=== PATIENT | female | born 1975 | race Caucasian/White ===

== ENCOUNTER 2022-09-04 00:27 | Emergency (ER) | payer OTHER, SELFPAY ==
[2022-09-04 00:32] VITALS: BP 158/86; PULSE 84; RESP 16; TEMP 36.6; O2SAT 98; BMI 34.4
--- NOTE | 2022-09-04 01:09 | ED_ITS ---
HPI - General Adult General Chief complaint: Abdominal Pain Stated complaint: HEADACHE / ABD PAIN Time Seen by Provider: 09/04/22 00:37 Source: patient Mode of arrival: walk-in Limitations: no limitations History of Present Illness HPI narrative: cc - headache and right flank pain Patient with history of kidney stones presents with right abdominal and right flank pain. She said this started a few days ago but chart review shows two visits in July and another in May for the same thingl History of kidney stones for which she has previously seen urologist. She denied any difficulty urinating or passing stool. She has diarrhea x 2 days. No blood in stool. She also complains of anterior head pain/headache. She said that she had previously been diagnosed with migraines. No photophobia but she has nausea without vomiting. No recent injury to the head or neck. She took a covid test at home and it was negative. On questioning she told me that she had an abnormal mammogram last month and that a recent pelvic US at [facility] showed some kind of mass near by uterus or bladder . She said that her PCP left the area and that she has no replacement PCP so there has been no follow up for these issues. Related Data Home Medications Medication Instructions Recorded Confirmed atorvastatin 20 mg tablet mg 09/04/22 fluoxetine 10 mg capsule mg 09/04/22 omeprazole 40 mg capsule,delayed mg 09/04/22 release propranolol 20 mg tablet mg 09/04/22 Allergies Allergy/AdvReac Type Severity Reaction Status Date / Time acetaminophen Allergy Mild Rash Verified 09/04/22 00:40 [From Tylenol-Codeine] cefdinir Allergy Mild Rash Verified 09/04/22 00:40 codeine Allergy Mild Rash Verified 09/04/22 00:40 [From Tylenol-Codeine] morphine Allergy Mild rash Verified 09/04/22 00:40 Penicillins Allergy Mild Rash Verified 09/04/22 00:40 hydromorphone [From Dilaudid] AdvReac Severe Difficulty Verified 09/04/22 00:40 Breathing PFSH PFSH Social History Smoking status: Never smoker Exam Narrative Exam Narrative: Nurses notes and vital signs reviewed and patient is not hypoxic. afebrile General: Well-appearing and in no apparent distress. Skin: Warm, dry, no pallor noted. No rash to abdomen or flank. Head: Normocephalic, atraumatic. Eye: Pupils are equal, round and EOMI. No scleral icterus. Cardiovascular: Regular Rate and Rhythm without murmur, gallop or rub. Respiratory: No accessory muscle use or respiratory distress. Lungs are clear to auscultation, no wheezing, rales or rhonchi Back: No midline thoracic or lumbar vertebral tenderness. Right CVA tenderness Musculoskeletal: normal ROM, no calf or popliteal tenderness, no lower extremity edema/swelling GI: Abdomen is soft, non-distended. Normal bowel sounds. No masses appreciated. Diffuse right sided tenderness to palpation. No rebound, guarding, or rigidity noted. Neurological: A&O x4. No cranial nerve dysfunction observed. No truncal ataxia. Moves all extremities. Sensation intact. Psychiatric: Cooperative and interactive. Normal mood and affect. Constitutional Vital Signs - 24 hr 09/04/22 00:32 Temperature 97.9 F Pulse Rate [Monitor Right] 84 Respiratory Rate 16 Blood Pressure [Left Arm] 158/86 H Pulse Oximetry 98 Oxygen Delivery Method Room Air Course Vital Signs Vital signs: Vital Signs Temperature 97.9 F 09/04/22 00:32 Pulse Rate 84 09/04/22 00:32 Respiratory Rate 16 09/04/22 00:32 Blood Pressure 158/86 H 09/04/22 00:32 Pulse Oximetry 98 09/04/22 00:32 Oxygen Delivery Method Room Air 09/04/22 00:32 Temperature 97.9 F 09/04/22 00:32 Pulse Rate 84 09/04/22 00:32 Respiratory Rate 16 09/04/22 00:32 Blood Pressure 158/86 H 09/04/22 00:32 Pulse Oximetry 98 09/04/22 00:32 Oxygen Delivery Method Room Air 09/04/22 00:32 Medical Decision Making MDM Narrative Medical decision making narrative: peripheral IV established and blood drawn and sent for testing. X-rays of the abdomen obtained - she had already undergone CT scanning of the abdomen and pelvis in May 2022 as well as two times in the month of July. She received toradol and zofran for her headache - she declined benadryl because she is driving. Today's workup was unremarkable. No ureteral stones. Normal labs including negative UA. She was discharged home with prescription for levsin for her abdominal pain and zyrtecD plus doxycycline for her sinus headache - she is allergic to penicillin. PCP referral given and she was given Dr Francis's info to follow up regarding the abnormal mammogram she said that she had at [facility]. Medical Records Medical records reviewed: Yes I reviewed the patient's medical records Lab Data Lab results reviewed: Yes I reviewed the patient's lab results Labs: Lab Results 09/04/22 09/04/22 09/04/22 Range/Units 01:10 01:15 01:53 WBC 6.8 (4.0-11.0) 10^3/uL RBC 4.43 (4.20-5.40) 10^6/uL Hgb 12.2 (12.0-16.0) g/dL Hct 37.6 (36.0-48.0) % MCV 84.9 (81.0-99.0) fL MCH 27.5 (26.7-34.0) pg MCHC 32.4 (29.9-35.2) g/dL RDW 13.8 (11.0-15.0) % Plt Count 388 (150-450) 10^3/uL MPV 9.8 (9.5-13.5) fL Neut % (Auto) 51.4 (43.0-75.0) % Lymph % (Auto) 35.2 (20.5-60.0) % [place] % (Auto) 9.2 (1.7-12.0) % Eos % (Auto) 3.7 (0.9-7.0) % Baso % (Auto) 0.4 (0.2-2.0) % Neut # (Auto) 3.5 (1.4-6.5) 10^3/uL Lymph # (Auto) 2.4 (1.2-3.8) 10^3/uL [place] # (Auto) 0.6 (0.3-0.8) 10^3/uL Eos # (Auto) 0.3 (0.0-0.7) 10^3/uL Baso # (Auto) 0.0 (0.0-0.1) 10^3/uL Abs Immat Gran (auto) 0.01 (0.00-0.03) 10^3/uL Imm/Tot Granulo (auto) 0.1 (0.0-0.5) % Sodium 141 (136-145) mmol/L Potassium 3.6 (3.5-5.1) mmol/L Chloride 103 (98-107) mmol/L Carbon Dioxide 26.4 (21.0-32.0) mmol/L Anion Gap 15.2 BUN 12.0 (7.0-18.0) mg/dL Creatinine 0.77 (0.55-1.02) mg/dL Est GFR ( Amer) >60 (>=60) Est GFR (Non-Af Amer) >60 (>=60) BUN/Creatinine Ratio 15.6 Glucose 115 H (74-106) mg/dL Calcium 9.1 (8.5-10.1) mg/dL Total Bilirubin 0.1 L (0.2-1.0) mg/dL AST 12 L (15-37) U/L ALT 26 (14-59) U/L Alkaline Phosphatase 85 (46-116) U/L Total Protein 7.5 (6.4-8.2) g/dL Albumin 3.8 (3.4-5.0) g/dL Globulin 3.7 g/dL Albumin/Globulin Ratio 1.0 Lipase 136.0 (73.0-393.0) U/L Urine Color Lt. yellow (YELLOW) Urine Clarity Clear (CLEAR) Urine pH 6.0 (5.0-9.0) Ur Specific [place] <=1.005 A (1.005-1.025) Urine Protein Negative (NEG/TRACE) mg/dL Urine Glucose (UA) Negative (NEGATIVE) mg/dL Urine Ketones Negative (NEGATIVE) mg/dL Urine Occult Blood Small A (NEGATIVE) Urine Nitrite Negative (NEGATIVE) Urine Bilirubin Negative (NEGATIVE) Urine Urobilinogen 0.2 (0.2-1.0) EU/dL Ur Leukocyte Esterase Negative (NEGATIVE) Urine RBC 0-2 (0-2) #/HPF Urine WBC None seen (NONE SEEN) #/HPF Ur Squamous Epith Cells None seen (NONE/RARE) #/LPF Urine Crystals None seen (None Seen) #/HPF Urine Bacteria None seen (NONE SEEN) #/HPF Urine Casts None seen (NONE SEEN) #/LPF Urine Mucus None seen (NONE SEEN) Ur Culture Indicated? No Imaging Data Abdominal x-ray: Attestation: I have reviewed the pertinent imaging results. Radiologist's impression: FINDINGS: The cardiac silhouette is normal in size. The lungs are clear. There is no significant pneumothorax or pleural effusion. No acute osseous abnormality is seen. There is a nonspecific bowel gas pattern without evidence of bowel obstruction. No intraperitoneal free air is seen. Bilateral tubal ligation clips are noted. IMPRESSION: 1. No acute cardiopulmonary abnormality. 2. Nonspecific bowel gas pattern without evidence of bowel obstruction. Electronically authenticated by: Fabby YAN Date: 09/04/2022 02:23 Discharge Plan Discharge Chief Complaint: Abdominal Pain Clinical Impression: Sinusitis, Abdominal pain Time of Disposition Decision: 02:41 Condition: Good Prescriptions / Home Meds: No Action atorvastatin 20 mg tablet omeprazole 40 mg capsule,delayed release(DR/EC) fluoxetine 10 mg capsule propranolol 20 mg tablet Instructions: Sinusitis (ED), Acute Headache (ED), Abdominal Pain (ED) Stand Alone Forms: Portal Instructions Referrals: JONATHAN VILLEDA MD [Physician] - 1 week (needs a new PCP) Yosi Francis MD [Physician] - 1 week (abnormal mammogram at [facility])
[2022-09-04] MEDS: 0.9 % SODIUM CHLORIDE 1,000 ML 999 ML IV (01:24)
[2022-09-04] MEDS: KETOROLAC TROMETHAMINE 30 MG/ML VIAL IVP (01:25)
[2022-09-04] MEDS: ONDANSETRON PF 4 MG/2 ML VIAL IV (01:26)
[2022-09-04 01:49] LABS: Basophils Percent Auto 0.4 % (0.2-2.0); Eosinophils Absolute Auto 0.3 10^3/uL (0.0-0.7); Eosinophils Percent Auto 3.7 % (0.9-7.0); Hematocrit 37.6 % (36.0-48.0); Hemoglobin 12.2 g/dL (12.0-16.0); Immature Granulocytes Abs Auto 0.01 10^3/uL (0.00-0.03); Immature Granulocytes Pct Auto 0.1 % (0.0-0.5); Lymphocytes Absolute Auto 2.4 10^3/uL (1.2-3.8); Lymphocytes Percent Auto 35.2 % (20.5-60.0); Mean Corpuscular HGB Conc 32.4 g/dL (29.9-35.2); Mean Corpuscular Hemoglobin 27.5 pg (26.7-34.0); Mean Corpuscular Volume 84.9 fL (81.0-99.0); Mean Platelet Volume 9.8 fL (9.5-13.5); Monocytes Absolute Auto 0.6 10^3/uL (0.3-0.8); Monocytes Percent Auto 9.2 % (1.7-12.0); Neutrophils Absolute Auto 3.5 10^3/uL (1.4-6.5); Neutrophils Percent Auto 51.4 % (43.0-75.0); Platelet Count 388 10^3/uL (150-450); Red Blood Count 4.43 10^6/uL (4.20-5.40); Red Cell Distribution Width 13.8 % (11.0-15.0); White Blood Count 6.8 10^3/uL (4.0-11.0)
[2022-09-04 01:49] LABS: Bilirubin Urine NEGATIVE (NEGATIVE); Blood Urine SMALL (NEGATIVE); Clarity Urine CLEAR (CLEAR); Color Urine LT. YELLOW (YELLOW); Glucose Urine UA NEGATIVE (NEGATIVE); Ketones Urine NEGATIVE (NEGATIVE); Leukocyte Esterase Urine NEGATIVE (NEGATIVE); Nitrite Urine NEGATIVE (NEGATIVE); Protein Urine NEGATIVE (NEG/TRACE); Specific Gravity Urine <=1.005 (1.005-1.025); Urobilinogen Urine 0.2 EU/dL (0.2-1.0)
[2022-09-04 01:53] LABS: Urine Microscopic Indicated YES
[2022-09-04 01:55] LABS: Bacteria Urine NONE SEEN #/HPF (NONE SEEN); Cast Seen? NONE SEEN #/LPF (NONE SEEN); Crystals Seen? None Seen #/HPF (None Seen); Mucus Urine NONE SEEN (NONE SEEN); RBC Urine 0-2 #/HPF (0-2); Squamous Epithelial Cell Urine NONE SEEN #/LPF (NONE/RARE); Urine Culture Indicated NO; WBC Urine NONE SEEN #/HPF (NONE SEEN)
[2022-09-04 02:04] LABS: Alanine Aminotransferase 26 U/L (14-59); Albumin Level 3.8 g/dL (3.4-5.0); Alkaline Phosphatase 85 U/L (46-116); Anion Gap 15.2; Aspartate Amino Transferase 12 U/L (15-37); BUN Creatinine Ratio 15.6; Bilirubin Total 0.1 mg/dL (0.2-1.0); Calcium 9.1 mg/dL (8.5-10.1); Carbon Dioxide 26.4 mmol/L (21.0-32.0); Chloride 103 mmol/L (98-107); Estimated GFR (African America >60 (>=60); Estimated GFR (Non-African Ame >60 (>=60); Globulin 3.7 g/dL; Glucose 115 mg/dL (74-106); Potassium 3.6 mmol/L (3.5-5.1); Sodium 141 mmol/L (136-145); Total Protein 7.5 g/dL (6.4-8.2)
--- NOTE | 2022-09-04 02:07 | XR_ITS ---
The [address] [address] Patient Name: GIOVANNA STREETER MRN: [id number] date: 1975 Sex: F Assigned Patient Location: ER Current Patient Location: ER Accession/Order Number: [id number] Exam Date: 09/04/2022 01:57 Report Date: 09/04/2022 02:23 At the request of: BYRON JEAN Procedure: XR acute abdomen series EXAM: XR acute abdomen series HISTORY: right sided abdominal pain COMPARISON: None. TECHNIQUE: One view of the chest and 2 views of the abdomen were obtained. FINDINGS: The cardiac silhouette is normal in size. The lungs are clear. There is no significant pneumothorax or pleural effusion. No acute osseous abnormality is seen. There is a nonspecific bowel gas pattern without evidence of bowel obstruction. No intraperitoneal free air is seen. Bilateral tubal ligation clips are noted. IMPRESSION: 1. No acute cardiopulmonary abnormality. 2. Nonspecific bowel gas pattern without evidence of bowel obstruction. Electronically authenticated by: Fabby YAN Date: 09/04/2022 02:23
== END 2022-09-04 02:59 | disposition home or self-care (01) ==
PROVIDERS: Emergency Provider Emergency Medicine
DX: R10.9 Unspecified abdominal pain (principal); J32.9 Chronic sinusitis, unspecified; Z87.442 Personal history of urinary calculi; Z79.899 Other long term (current) drug therapy
CPT/HCPCS: 36415; 74022; 80053; 81003; 81015; 83690; 85025; 96361; 96374; 96375; 99284

== ENCOUNTER 2022-10-06 02:25 | Emergency (ER) | payer OTHER, SELFPAY ==
--- NOTE | 2022-10-06 | CT_ITS ---
The [address] [address] Patient Name: GIOVANNA STREETER MRN: [id number] date: 1975 Sex: F Assigned Patient Location: Current Patient Location: .MAIN Accession/Order Number: [id number] Exam Date: 10/06/2022 03:13 Report Date: 10/06/2022 23:08 At the request of: STEPHANIE NAQVI Procedure: CT abdomen pelvis wo con EXAM: CT abdomen and pelvis, 10/06/2022. HISTORY: Right flank and abdominal pain for 2 days. History of kidney stones and stent placement for stones. COMPARISON: CT abdomen and pelvis, 08/17/2022. TECHNIQUE: Nonenhanced CT imaging of the abdomen and pelvis was performed with sagittal and coronal reconstructions. FINDINGS: CT ABDOMEN: A 4 mm noncalcified lingular nodule on image 1 of series 3 appears to be new since the prior exam and may not have been included on images through the lung bases on the prior study. Additional smaller subpleural nodular lesions in the lateral right middle lobe on images 7 and 9 are unchanged. There is mild dependent atelectasis in the posterior lower lobes. There is linear lingular fibrotic scarring. Cardiac size is normal. There is no pericardial effusion. There are mild aortic calcifications without aneurysm. The IVC is unremarkable. The gallbladder is contracted but otherwise unremarkable. No biliary ductal dilatation is seen. The exam is limited by the lack of IV contrast. Solid organ lesions or acute abnormalities could be missed. With this consideration, the liver, pancreas, spleen, adrenal glands, kidneys, stomach and small bowel are grossly unremarkable. There is a small fat-containing umbilical hernia. CT PELVIS: A normal appendix is seen on image 109. The pelvic small bowel loops, urinary bladder, uterus and ovaries are unremarkable. Bilateral tubal ligation clips are noted. Colonic diverticulosis is present with a normal volume of colonic stool and gas. No inflammatory fat stranding, free fluid, loculated fluid or free air is seen in the abdomen or pelvis. No acute osseous abnormality or suspicious bony lesion is seen. IMPRESSION: 1. No urinary tract calculi or acute findings in the abdomen or pelvis. No specific cause of right flank and right abdominal pain is seen. No significant change from prior exam. 2. Normal appendix. 3. Colonic diverticulosis. 4. Bilateral tubal ligation clips. Electronically authenticated by: JG JESSICA Date: 10/06/2022 23:08
[2022-10-06 15:54] LABS: Anion Gap 12.7; BUN Creatinine Ratio 15.1; Bilirubin Total 0.2 mg/dL (0.2-1.0); Calcium 9.8 mg/dL (8.5-10.1); Carbon Dioxide 24.6 mmol/L (21.0-32.0); Chloride 102 mmol/L (98-107); Estimated GFR (African America >60 (>=60); Estimated GFR (Non-African Ame >60 (>=60); Glucose 148 mg/dL (74-106); Potassium 4.3 mmol/L (3.5-5.1); Sodium 135 mmol/L (136-145)
[2022-10-06 15:55] LABS: Alanine Aminotransferase 20 U/L (14-59); Albumin Globulin Ratio 1.1; Albumin Level 4.1 g/dL (3.4-5.0); Alkaline Phosphatase 76 U/L (46-116); Aspartate Amino Transferase 14 U/L (15-37); Bilirubin Direct 0.1 mg/dL (0.0-0.2); Globulin 3.9 g/dL; White Blood Count 9.4 10^3/uL (4.0-11.0)
[2022-10-06 15:56] LABS: Basophils Percent Auto 0.2 % (0.2-2.0); Eosinophils Percent Auto 0.1 % (0.9-7.0); Hematocrit 38.9 % (36.0-48.0); Hemoglobin 12.6 g/dL (12.0-16.0); Immature Granulocytes Pct Auto 0.4 % (0.0-0.5); Lymphocytes Percent Auto 13.4 % (20.5-60.0); Mean Corpuscular HGB Conc 32.4 g/dL (29.9-35.2); Mean Corpuscular Hemoglobin 28.3 pg (26.7-34.0); Mean Corpuscular Volume 87.2 fL (81.0-99.0); Mean Platelet Volume 9.7 fL (9.5-13.5); Monocytes Percent Auto 4.6 % (1.7-12.0); Neutrophils Percent Auto 81.3 % (43.0-75.0); Platelet Count 417 10^3/uL (150-450); Red Blood Count 4.46 10^6/uL (4.20-5.40)
[2022-10-06 15:57] LABS: Immature Granulocytes Abs Auto 0.04 10^3/uL (0.00-0.03); Lymphocytes Absolute Auto 1.3 10^3/uL (1.2-3.8); Monocytes Absolute Auto 0.4 10^3/uL (0.3-0.8); Neutrophils Absolute Auto 7.7 10^3/uL (1.4-6.5)
[2022-10-06 15:58] LABS: Bacteria Urine NONE SEEN #/HPF (NONE SEEN); Bilirubin Urine NEGATIVE (NEGATIVE); Blood Urine MODERATE (NEGATIVE); Clarity Urine CLEAR (CLEAR); Color Urine LT YELLOW (YELLOW); Glucose Urine UA NEGATIVE (NEGATIVE); Ketones Urine NEGATIVE (NEGATIVE); Leukocyte Esterase Urine NEGATIVE (NEGATIVE); Mucus Urine NONE SEEN (NONE SEEN); Nitrite Urine NEGATIVE (NEGATIVE); Protein Urine NEGATIVE (NEG/TRACE); RBC Urine 0-2 #/HPF (0-2); Squamous Epithelial Cell Urine RARE #/LPF (NONE/RARE); Urobilinogen Urine 0.2 EU/dL (0.2-1.0); WBC Urine 0-2 #/HPF (NONE SEEN); pH Urine 6.5 (5.0-9.0)
[2022-10-06 15:59] LABS: Cast Seen? NONE SEEN #/LPF (NONE SEEN); Crystals Seen? None Seen #/HPF (None Seen); Urine Culture Indicated NO
== END 2022-10-06 05:39 | disposition home or self-care (01) ==
LOC: ER 05:34
PROVIDERS: Emergency Provider Internal Medicine
DX: R10.9 Unspecified abdominal pain (principal); J32.9 Chronic sinusitis, unspecified; Z87.442 Personal history of urinary calculi
CPT/HCPCS: 36415; 74176; 80048; 80076; 81001; 83690; 85025; 99284

== ENCOUNTER 2022-12-06 05:23 | Emergency (ER) | payer OTHER, SELFPAY ==
[2022-12-06 05:24] VITALS: BP 202/110; PULSE 74; RESP 18; TEMP 36.7; O2SAT 97; BMI 37.1
--- NOTE | 2022-12-06 05:32 | PC.NURSE ---
patient state she developed left upper and lower tooth pain yesterday that has continued to get worse. states she tried tylenol, motrin, and OTC topical for pain with no relief. states her BP is also high now because she is in so much pain. patient also states that today her throat is sore and yesterday it was not. patient noted to have poor dentition, has not contacted dentist.
--- NOTE | 2022-12-06 05:50 | ED_ITS ---
HPI - Dental/Oral General Chief complaint: Dental/Oral Stated complaint: TOOTH PAIN Time Seen by Provider: 12/06/22 05:47 History of Present Illness HPI Narrative: patient presents complaining of dental pain. States started last night. Throbbing pain and not able to sleep. Also states she has a sore throat. Prescribed medication for her BP but has not taken because of her painful teeth. No fever or chills Related Data Home Medications Medication Instructions Recorded Confirmed atorvastatin 20 mg tablet mg 09/04/22 fluoxetine 10 mg capsule mg 09/04/22 omeprazole 40 mg capsule,delayed mg 09/04/22 release propranolol 20 mg tablet mg 09/04/22 Allergies Allergy/AdvReac Type Severity Reaction Status Date / Time acetaminophen Allergy Mild Rash Verified 12/06/22 05:29 [From Tylenol-Codeine] cefdinir Allergy Mild Rash Verified 12/06/22 05:29 codeine Allergy Mild Rash Verified 12/06/22 05:29 [From Tylenol-Codeine] morphine Allergy Mild rash Verified 12/06/22 05:29 Penicillins Allergy Mild Rash Verified 12/06/22 05:29 hydromorphone [From Dilaudid] AdvReac Severe Difficulty Verified 12/06/22 05:29 Breathing Review of Systems ROS Status of ROS 10 or more systems reviewed and unremarkable except as noted in history and below [facility] Social History Smoking status: Never smoker Exam Constitutional Vital Signs, click to edit/add: Last Vital Signs Temp 98.1 F 12/06/22 05:24 Pulse 74 12/06/22 05:24 Resp 18 12/06/22 05:24 BP 202/110 H 12/06/22 05:24 Pulse Ox 97 12/06/22 05:24 Common normals: no apparent distress, average body habitus, oriented x3, alert and well nourished Other: posterior left upper and lower molar tenderness. No obvious surrounding swelling. No drainage Respiratory Common normals: normal respiratory effort, no retractions, no use of accessory muscles and clear to auscultation bilaterally Cardio Common normals: regular rate, regular rhythm, S1 normal heart sound and S2 normal heart sound GI Common normals: Normal to inspection, nondistended, normoactive bowel sounds present, soft to palpation and non-tender Extremity Common normals: normal to inspection and full ROM Neuro Common normals: oriented x3, CN's II-XII intact bilaterally, moves all extremities, no focal motor deficits and no sensory deficits noted Psych Appearance: grossly normal Course Vital Signs Vital signs: Vital Signs Temperature 98.1 F 12/06/22 05:24 Pulse Rate 74 12/06/22 05:24 Respiratory Rate 18 12/06/22 05:24 Blood Pressure 202/110 H 12/06/22 05:24 Pulse Oximetry 97 12/06/22 05:24 Temperature 98.1 F 12/06/22 05:24 Pulse Rate 74 12/06/22 05:24 Respiratory Rate 18 12/06/22 05:24 Blood Pressure 202/110 H 12/06/22 05:24 Pulse Oximetry 97 12/06/22 05:24 MDM - Dental/Oral MDM Narrative Medical decision making narrative: patient presents with acute dentalgia affecting 2 of her teeth. Left upper posterior and lower molar. complains of sore throat but her pharynx is completely clear. Her teeth are tender but no obvious caries or surrouding swelling. Moderately tender. States she has decreased intake because of her dental pain. IV establish to hydrate the patient, Clindamycin and labs ordered as well as Toradol Discharge Plan Discharge Chief Complaint: Dental/Oral Clinical Impression: Dental abscess Patient Disposition: Home, Self-Care Prescriptions / Home Meds: No Action atorvastatin 20 mg tablet omeprazole 40 mg capsule,delayed release(DR/EC) fluoxetine 10 mg capsule propranolol 20 mg tablet Instructions: Dental Abscess (ED) Additional Instructions: follow up with Dentist Stand Alone Forms: Portal Instructions Referrals: [facility] [Primary Care Provider] - 1 week
[2022-12-06] MEDS: KETOROLAC TROMETHAMINE 30 MG/ML VIAL IVP (06:02)
[2022-12-06] MEDS: CLINDAMYCIN PHOSPHATE/D5W 900 MG/50 ML PIGGYBACK 100 MG IV (06:34)
[2022-12-06] MEDS: 0.9 % SODIUM CHLORIDE 1,000 ML 999 ML IV (06:34)
[2022-12-06] MEDS: BENZOCAINE 30 ML, lidocaine HCL 15 ML MM (06:41)
[2022-12-06 06:44] VITALS: BP 176/86
[2022-12-06 06:50] LABS: Anion Gap 13.2; BUN Creatinine Ratio 26.1; Calcium 8.7 mg/dL (8.5-10.1); Carbon Dioxide 24.6 mmol/L (21.0-32.0); Chloride 104 mmol/L (98-107); Estimated GFR (African America >60 (>=60); Estimated GFR (Non-African Ame >60 (>=60); Glucose 116 mg/dL (74-106); Potassium 3.8 mmol/L (3.5-5.1); Sodium 138 mmol/L (136-145)
[2022-12-06 06:51] LABS: Basophils Percent Auto 0.5 % (0.2-2.0); Eosinophils Absolute Auto 0.3 10^3/uL (0.0-0.7); Eosinophils Percent Auto 4.5 % (0.9-7.0); Hematocrit 34.4 % (36.0-48.0); Hemoglobin 11.4 g/dL (12.0-16.0); Immature Granulocytes Abs Auto 0.01 10^3/uL (0.00-0.03); Immature Granulocytes Pct Auto 0.2 % (0.0-0.5); Lymphocytes Absolute Auto 2.1 10^3/uL (1.2-3.8); Lymphocytes Percent Auto 34.1 % (20.5-60.0); Mean Corpuscular HGB Conc 33.1 g/dL (29.9-35.2); Mean Corpuscular Hemoglobin 28.6 pg (26.7-34.0); Mean Corpuscular Volume 86.2 fL (81.0-99.0); Monocytes Absolute Auto 0.7 10^3/uL (0.3-0.8); Monocytes Percent Auto 10.5 % (1.7-12.0); Neutrophils Absolute Auto 3.1 10^3/uL (1.4-6.5); Neutrophils Percent Auto 50.2 % (43.0-75.0); Platelet Count 402 10^3/uL (150-450); Red Blood Count 3.99 10^6/uL (4.20-5.40); White Blood Count 6.2 10^3/uL (4.0-11.0)
== END 2022-12-06 06:52 | disposition home or self-care (01) ==
PROVIDERS: Emergency Provider Internal Medicine
DX: K04.7 Periapical abscess without sinus (principal); Z79.899 Other long term (current) drug therapy
CPT/HCPCS: 36415; 80048; 85025; 96365; 96375; 99284

== ENCOUNTER 2023-11-29 01:59 | Emergency (ER) | payer MEDICAID, SELFPAY ==
[2023-11-29] VITALS (20 sets, daily range): BP systolic 162–214; BP diastolic 79–118; PULSE 56–89; TEMP 36.5; O2SAT 96–99; BMI 34.0
--- NOTE | 2023-11-29 02:22 | ECG_ITS ---
The [facility] Test Date: 2023-11-29 Pat Name: GIOVANNA STREETER Department: Room: - Gender: Female Product Mgmt Dev Manager: : 1975 Requested By: Order Number: [id number] Reading MD: HUMBERTO SINGER Measurements Intervals [place] Rate: 71 P: 52 MS: 160 QRS: 31 QRSD: 88 T: 46 QT: 394 QTc: 416 Interpretive Statements 1100 Sinus rhythm 9110 normal ECG No previous ECG available for comparison Electronically Signed On 11-29-2023 6:44:22 EDT by HUMBERTO SINGER
--- NOTE | 2023-11-29 02:24 | CT_ITS ---
The [address] [address] Patient Name: GIOVANNA STREETER MRN: [id number] date: 1975 Sex: F Assigned Patient Location: ER Current Patient Location: .[facility] Accession/Order Number: [id number] Exam Date: 11/29/2023 02:48 Report Date: 11/29/2023 04:14 At the request of: NIA FOSTER Procedure: CT angio chest EXAM: CT angio chest HISTORY: Severe back pain. COMPARISON: CT abdomen and pelvis examination dated 10/06/2022. TECHNIQUE: Axial CT and radiographic images through the chest were obtained after the intravenous administration of contrast. Coronal and sagittal reformats were obtained. Dose reduction techniques were achieved by using automated exposure control and/or adjustment of mA and/or kV according to patient size and/or use of iterative reconstruction technique. FINDINGS: There are no filling defects or vascular cutoffs to indicate a pulmonary embolus. The pulmonary arteries are normal in size. There is no evidence of aortic dissection, aortic aneurysm, or an acute aortic injury. There is a stable, likely benign 0.4 cm nodule in the right middle lobe (series 4, image 59). There is mild bibasilar atelectasis. The central airways are patent. No pleural effusion or pneumothorax is seen. The thoracic aorta is normal in course and caliber without evidence of an aneurysm. The cardiac chambers appear normal in size. There is no pericardial effusion. There is mild atherosclerotic disease. There is no mediastinal, hilar, or axillary lymphadenopathy by CT size criteria. Images through the upper abdomen reveal no significant abnormalities. No suspicious or aggressive bone lesions are seen. No acute fracture is seen. CT/CT angio chest IMPRESSION: 1. No evidence of aortic dissection, aortic aneurysm, or an acute aortic injury. 2. No evidence of pulmonary embolism or an acute cardiopulmonary abnormality. Electronically authenticated by: Fabby YAN Date: 11/29/2023 04:14
[2023-11-29 02:27] LABS: Basophils Percent Auto 0.4 % (0.2-2.0); Eosinophils Absolute Auto 0.3 10^3/uL (0.0-0.7); Eosinophils Percent Auto 4.3 % (0.9-7.0); Hematocrit 40.4 % (36.0-48.0); Hemoglobin 13.6 g/dL (12.0-16.0); Immature Granulocytes Abs Auto 0.01 10^3/uL (0.00-0.03); Immature Granulocytes Pct Auto 0.1 % (0.0-0.5); Lymphocytes Absolute Auto 2.8 10^3/uL (1.2-3.8); Lymphocytes Percent Auto 37.3 % (20.5-60.0); Mean Corpuscular HGB Conc 33.7 g/dL (29.9-35.2); Mean Corpuscular Hemoglobin 30.2 pg (26.7-34.0); Mean Corpuscular Volume 89.8 fL (81.0-99.0); Mean Platelet Volume 9.7 fL (9.5-13.5); Monocytes Absolute Auto 0.5 10^3/uL (0.3-0.8); Neutrophils Absolute Auto 3.9 10^3/uL (1.4-6.5); Neutrophils Percent Auto 50.9 % (43.0-75.0); Platelet Count 371 10^3/uL (150-450); Red Cell Distribution Width 13.4 % (11.0-15.0); White Blood Count 7.6 10^3/uL (4.0-11.0)
[2023-11-29] MEDS: KETOROLAC TROMETHAMINE 30 MG/ML VIAL 15 MG IVP (02:32)
[2023-11-29 02:45] LABS: Alanine Aminotransferase 28 U/L (14-59); Albumin Globulin Ratio 1.1; Alkaline Phosphatase 95 U/L (46-116); Anion Gap 11.6; Aspartate Amino Transferase 17 U/L (15-37); BUN Creatinine Ratio 18.2; Bilirubin Total 0.1 mg/dL (0.2-1.0); Calcium 9.1 mg/dL (8.5-10.1); Carbon Dioxide 26.1 mmol/L (21.0-32.0); Chloride 105 mmol/L (98-107); Estimated GFR (African America >60 (>=60); Estimated GFR (Non-African Ame >60 (>=60); Globulin 3.7 g/dL; Glucose 101 mg/dL (74-106); Potassium 3.7 mmol/L (3.5-5.1); Sodium 139 mmol/L (136-145); Total Protein 7.7 g/dL (6.4-8.2); Troponin I High Sensitivity 30.9 pg/mL (4.0-51.3)
--- NOTE | 2023-11-29 03:43 | ECG_ITS ---
The [facility] Test Date: 2023-11-29 Pat Name: GIOVANNA STREETER Department: Room: - Gender: Female Community Planning Technician: : 1975 Requested By: [id number] Order Number: [id number] Reading MD: HUMBERTO SINGER Measurements Intervals [place] Rate: 61 P: 46 AK: 168 QRS: 29 QRSD: 88 T: 34 QT: 426 QTc: 430 Interpretive Statements 1100 Sinus rhythm 8102 Low QRS voltage in chest leads 9120 atypical ECG Compared to ECG 11/29/2023 02:13:46 Low QRS voltage now present Electronically Signed On 11-29-2023 6:45:13 EDT by HUMBERTO SINGER
--- NOTE | 2023-11-29 04:33 | ED_ITS ---
HPI HPI - General Adult General Chief complaint: Back Pain/Injury Stated complaint: back pain Time Seen by Provider: 11/29/23 02:10 Source: patient Mode of arrival: walk-in Limitations: no limitations History of Present Illness HPI narrative: 48-year-old female to the emergency department complaining of pain radiating from her bed line thoracic back around to her front of her chest. It is worse on the right side. She reports some shortness of breath due to pain with deep inspiration. No falls or injuries. She reports she has had pain like this before just never severe. She denies any fever, sweats, chills. No cardiac history. Reports she is otherwise healthy aside from a history of hypertension. She takes lisinopril for this. Last taken this morning. She was at her [facility] and home prior to onset of this pain this morning. Related Data Home Medications ?Medication ?Instructions ?Recorded ?Confirmed lisinopril 40 mg tablet 40 mg PO DAILY 11/29/23 11/29/23 Previous Rx's ?Medication ?Instructions ?Recorded cyclobenzaprine 10 mg tablet 10 mg PO BID PRN muscle spasm #10 11/29/23 tabs methylprednisolone 4 mg tablets in 4 mg PO DAILY #21 ea 11/29/23 a dose pack (Medrol (Camron)) Allergies Allergy/AdvReac Type Severity Reaction Status Date / Time codeine Allergy Mild Rash Verified 12/06/22 05:29 [From Tylenol-Codeine] morphine Allergy Mild rash Verified 12/06/22 05:29 Penicillins Allergy Mild Rash Verified 12/06/22 05:29 cefdinir Allergy Unknown Rash Verified 11/29/23 02:06 hydromorphone [From Dilaudid] AdvReac Severe Difficulty Verified 12/06/22 05:29 Breathing Opioid HPI Opioid Management Most Recent Opioid Data: Last Pain Scale 7 09/04/22 02:21 Review of Systems ROS Status of ROS 10 or more systems reviewed and unremark able except as noted in history and below [facility] Social History Smoking status: Never smoker Exam Narrative Exam Narrative: VITALS: I have reviewed the triage vital signs. GENERAL: Well developed, well appearing adult in no acute distress. NEURO: Alert and oriented. Moves all extremities. Face is symmetric and expressive. EYES: PERRL. No scleral icterus or conjunctival injection. No discharge. HENT: Normocephalic, atraumatic. Hearing is grossly intact. Nares grossly patent and without discharge. Mucous membranes moist. NECK: No JVD. Patient moves neck without restriction. CARDIO: Rhythm regular. Normal rate. No murmur, rub, or gallop. Pulses equal bilaterally in the upper and lower extremity. No lower extremity edema. PULM: Lungs clear to auscultation in all quesada. No wheezes, rales, or rhonchi. No conversational dyspnea. No splinting, stridor, or accessory muscle use. Tenderness to palpation of the lateral chest wall over the lower ribs. GI/: Abdomen is soft and non-tender. Normoactive bowel sounds. EXTREMITIES: Symmetric muscle bulk. No joint swelling. No clubbing, cyanosis, or deformity. SKIN: Warm and dry. Normal turgor. No rash or lesions appreciated. PSYCH: Mood, affect, and interaction is appropriate to the setting. Constitutional Vital Signs, click to edit/add: Last Vital Signs Temp 97.7 F 11/29/23 02:03 Pulse 58 L 11/29/23 04:01 Resp 20 11/29/23 04:01 BP 162/94 H 11/29/23 04:01 Pulse Ox 97 11/29/23 02:30 O2 Del Method Room Air 11/29/23 02:03 Course Vital Signs Vital signs: Vital Signs Temperature 97.7 F 11/29/23 02:03 Pulse Rate 71 11/29/23 02:03 Respiratory Rate 18 11/29/23 02:03 Blood Pressure 204/118 H 11/29/23 02:03 Pulse Oximetry 99 11/29/23 02:03 Oxygen Delivery Method Room Air 11/29/23 02:03 Temperature 97.7 F 11/29/23 02:03 Pulse Rate 58 L 11/29/23 04:01 Respiratory Rate 20 11/29/23 04:01 Blood Pressure 162/94 H 11/29/23 04:01 Pulse Oximetry 97 11/29/23 02:30 Oxygen Delivery Method Room Air 11/29/23 02:03 Medical Decision Making MDM Narrative Medical decision making narrative: 48-year-old female to the emergency department chief complaint of a sharp pain radiating from her back into her bilateral chest wall on the right. Vital stable, the patient is afebrile. She is hypertensive upon arrival. Cardiac workup is initiated. Given the distribution of the pain will obtain a CTA to rule out pulmonary embolism or aortic dissection. Initial EKG: Normal sinus rhythm at a rate of 71. No STEMI. Normal QTc. Lab work reviewed and noted. No major abnormalities. Initial troponin within normal limits. CTA without acute findings Repeat troponin within normal limits. Repeat EKG: Normal sinus rhythm at a rate of 61. No STEMI. No acute ischemic changes. No dynamic changes. Normal QTc. Patient is low risk by heart score. History and exam seem to be more musculoskeletal etiology. Symptomatic therapy for home. Return precautions were discussed. She will follow-up with her PCP. The patient was discharged home. Heart Score for Major Cardiac Event History: Example factors for history - pattern of chest pain, onset, duration, relation with exercise, stress or cold, localization, concomitant symptoms. reaction to sublingual nitrates, [] Highly suspicious +2 [] Moderately suspicious +1 [x] Slightly suspicious 0 EKG: [] Significant ST-Depression +2 [] Non specific repolarization disturbance +1 [x] Normal 0 Age: [] >= 65 +2 [x] 45-65 + 1 [] <45 0 Risk Factors: (HLD, HTN, DM, Cigarette Smoking, Pos Family Hx, Obesity) [] >3 risk factors or hx of atherosclerotic disease + 2 [x] 1-2 risk factors + 1 [] No risk factors known 0 Troponin: [] >= 3X normal + 2 [] 1-3X normal + 1 [x] <= Normal 0 [x] 0-3 Points 0.9 - 1.7% risk of major adverse cardiac event in 6 weeks [] 4-6 Points 12-16.6% risk of major adverse cardiac event in 6 weeks [] 7-10 Points 50-65% risk of major adverse cardiac event in 6 weeks [x] 0-3 Points with 2 sets of negative cardiac markers <1% risk of major adverse cardiac event in 30 days. Medical Records Medical records reviewed: Yes I reviewed the patient's medical records Lab Data Lab results reviewed: Yes I reviewed the patient's lab results Labs: Lab Results 11/29/23 11/29/23 Range/Units 02:15 03:55 WBC 7.6 (4.0-11.0) 10^3/uL RBC 4.50 (4.20-5.40) 10^6/uL Hgb 13.6 (12.0-16.0) g/dL Hct 40.4 (36.0-48.0) % MCV 89.8 (81.0-99.0) fL MCH 30.2 (26.7-34.0) pg MCHC 33.7 (29.9-35.2) g/dL RDW 13.4 (11.0-15.0) % Plt Count 371 (150-450) 10^3/uL MPV 9.7 (9.5-13.5) fL Neut % (Auto) 50.9 (43.0-75.0) % Lymph % (Auto) 37.3 (20.5-60.0) % Gage % (Auto) 7.0 (1.7-12.0) % Eos % (Auto) 4.3 (0.9-7.0) % Baso % (Auto) 0.4 (0.2-2.0) % Neut # (Auto) 3.9 (1.4-6.5) 10^3/uL Lymph # (Auto) 2.8 (1.2-3.8) 10^3/uL Gage # (Auto) 0.5 (0.3-0.8) 10^3/uL Eos # (Auto) 0.3 (0.0-0.7) 10^3/uL Baso # (Auto) 0.0 (0.0-0.1) 10^3/uL Abs Immat Gran (auto) 0.01 (0.00-0.03) 10^3/uL Imm/Tot Granulo (auto) 0.1 (0.0-0.5) % Sodium 139 (136-145) mmol/L Potassium 3.7 (3.5-5.1) mmol/L Chloride 105 (98-107) mmol/L Carbon Dioxide 26.1 (21.0-32.0) mmol/L Anion Gap 11.6 BUN 14.0 (7.0-18.0) mg/dL Creatinine 0.77 (0.55-1.02) mg/dL Est GFR ( Amer) >60 (>=60) Est GFR (Non-Af Amer) >60 (>=60) BUN/Creatinine Ratio 18.2 Glucose 101 (74-106) mg/dL Calcium 9.1 (8.5-10.1) mg/dL Total Bilirubin 0.1 L (0.2-1.0) mg/dL AST 17 (15-37) U/L ALT 28 (14-59) U/L Alkaline Phosphatase 95 (46-116) U/L Troponin I High Sens 30.9 26.0 (4.0-51.3) pg/mL Total Protein 7.7 (6.4-8.2) g/dL Albumin 4.0 (3.4-5.0) g/dL Globulin 3.7 g/dL Albumin/Globulin Ratio 1.1 Lipase 92.0 H (16.0-77.0) U/L Imaging Data CTA chest: Radiologist's impression: ITS Impressions Chest CTA 11/29/23 02:24 IMPRESSION: 1. No evidence of aortic dissection, aortic aneurysm, or an acute aortic injury. 2. No evidence of pulmonary embolism or an acute cardiopulmonary abnormality. Electronically authenticated by: Fabby YAN Date: 11/29/2023 04:14 ECG Data Attestation: I personally reviewed and interpreted this ECG as follows: (See MDM) Discharge Plan Discharge Stand Alone Forms: Work/School Release, Portal Instructions Chief Complaint: Back Pain/Injury Clinical Impression: Chest wall pain Patient Disposition: Home, Self-Care Time of Disposition Decision: 04:38 Condition: Good Mode of Transportation: Private Vehicle Prescriptions / Home Meds: New methylprednisolone [Medrol (Camron)] 4 mg tablets,dose pack 4 mg PO DAILY Qty: 21 0RF Rx Instructions: TAKE PER DOSEPAK INSTRUCTIONS cyclobenzaprine 10 mg tablet 10 mg PO BID PRN (Reason: muscle spasm) Qty: 10 0RF No Action lisinopril 40 mg tablet 40 mg PO DAILY Print Language: French Instructions: Chest Wall Pain (ED) Additional Instructions: Call the office of your primary care doctor to arrange for follow-up within the above-stated timeframe. Your ED visit was focused on your acute issue and does not replace primary care. You should review your labs, imaging, and diagnoses from this ED visit with your primary care physician. There may be non-emergent/ incidental findings that need further evaluation. You should review your vital signs including blood pressure with your PCP. If you were prescribed medications you should discuss possible side-effects and drug interactions with your pharmacist. Call 911 or go to the nearest Emergency Department if you develop any new or worsening symptoms. Seek immediate medical attention if you develop: worsening chest pain, new chest pain, nausea, vomiting, weakness, numbness, tingling, excessive sweating, shortness of breath, difficulty breathing, loss of motion in your arms or legs, or any new or worsening symptoms. Referrals: FAMILY[facility] [Primary Care Provider] - 1 week OVIDIO JUNIOR MD [Physician] - 1 week (Follow-up to discuss chest pain and obtain stress test. )
== END 2023-11-29 04:52 | disposition home or self-care (01) ==
PROVIDERS: Emergency Provider Student in an Organized Health Care Education/Training Program
DX: R07.89 Other chest pain (principal); I10 Essential (primary) hypertension
CPT/HCPCS: 36415; 71275; 80053; 83690; 84484; 85025; 93005; 96374; 99285; J1885; Q9967

== ENCOUNTER 2024-06-19 02:39 | Emergency (ER) | payer OTHER, SELFPAY ==
[2024-06-19 02:43] VITALS: BP 171/94; PULSE 83; TEMP 36.4; O2SAT 98; BMI 33.7
--- NOTE | 2024-06-19 03:05 | ED_ITS ---
HPI HPI - General Adult General Chief complaint: Upper Respiratory Infection Stated complaint: SORE THROAT/TOOTH PAIN Time Seen by Provider: 06/19/24 03:00 Source: patient Mode of arrival: walk-in Limitations: no limitations History of Present Illness HPI narrative: 48-year-old female presents for toothache and sore throat. Both of these started out about the same time, 2 days ago. She is complaining of pain to her right lower dentition and she does not have a dentist. No fever or cough. No complaints of ear pain and she has not been around any ill people. Related Data Home Medications ?Medication ?Instructions ?Recorded ?Confirmed lisinopril 40 mg tablet 40 mg PO DAILY 11/29/23 06/19/24 atorvastatin 20 mg tablet mg 06/19/24 Previous Rx's ?Medication ?Instructions ?Recorded clindamycin HCl 300 mg capsule 300 mg PO Q6H 10 days #40 caps 06/19/24 Allergies Allergy/AdvReac Type Severity Reaction Status Date / Time codeine (From Allergy Mild Rash Verified 12/06/22 05:29 Tylenol-Codeine) morphine Allergy Mild rash Verified 12/06/22 05:29 Penicillins Allergy Mild Rash Verified 12/06/22 05:29 cefdinir Allergy Unknown Rash Verified 11/29/23 02:06 hydromorphone (From Dilaudid) AdvReac Severe Difficulty Verified 12/06/22 05:29 Breathing Opioid HPI Opioid Management Most Recent Opioid Data: Last Pain Scale 10 06/19/24 02:57 06/19/24 Last ED Pain Assessment 06/19/24 02:57 Review of Systems ROS Narrative A ten point review of systems is negative except as noted above. PFSH PFSH Social History Smoking status: Never smoker Little interest or pleasure in doing things: not at all Feeling down, depressed, or hopeless: not at all Exam Narrative Exam Narrative: Nurses note and vital signs reviewed and patient is not hypoxic. General: The patient appears in no apparent distress. Patient is resting comfortably on cart. Skin: Warm, dry, no pallor noted. There is no rash noted. Head: Normocephalic, atraumatic Eye: Normal conjunctiva, no drainage Ears, Nose, Mouth, and Throat: oral mucosa is moist. Nares patent. No gingival swelling or erythema. No obvious dental caries noted. No pharyngeal erythema or exudate. Uvula midline. No swelling to the floor of her mouth and she is handling her oral secretions well. Cardiovascular: Regular Rate and Rhythm Respiratory: Patient is in no distress, no accessory muscle use, lungs are clear to auscultation, no wheezing, rales or rhonchi Back: non-tender GI: Soft and nontender Musculoskeletal: The patient has no evidence of calf tenderness, no pitting edema, symmetrical pulses noted bilaterally Neurological: A&O, normal speech Psychiatric: Cooperative Constitutional Vital Signs, click to edit/add: Last Vital Signs Temp 97.5 F L 06/19/24 02:43 Pulse 83 06/19/24 02:43 Resp 18 06/19/24 02:43 BP 171/94 H 06/19/24 02:43 Pulse Ox 98 06/19/24 02:43 O2 Del Method Room Air 06/19/24 02:43 Course Vital Signs Vital signs: Vital Signs Temperature 97.5 F L 06/19/24 02:43 Pulse Rate 83 06/19/24 02:43 Respiratory Rate 18 06/19/24 02:43 Blood Pressure 171/94 H 06/19/24 02:43 Pulse Oximetry 98 06/19/24 02:43 Oxygen Delivery Method Room Air 06/19/24 02:43 Temperature 97.5 F L 06/19/24 02:43 Pulse Rate 83 06/19/24 02:43 Respiratory Rate 18 06/19/24 02:43 Blood Pressure 171/94 H 06/19/24 02:43 Pulse Oximetry 98 06/19/24 02:43 Oxygen Delivery Method Room Air 06/19/24 02:43 Medical Decision Making MDM Narrative Medical decision making narrative: COVID, influenza, and strep are all negative. She was prescribed clindamycin for her tooth and was given dental referral list. Treatment diagnosis and follow-up were discussed with the patient. Differential Diagnosis Differential Diagnosis: Throat, viral pharyngitis, COVID, influenza, dental abscess Lab Data Lab results reviewed: Yes I reviewed the patient's lab results Labs: Lab Results 06/19/24 Range/Units 02:50 Influenza Type A Ag Negative Influenza Type B Ag Negative SARS-CoV-2 Ag (CV2AG) Negative (NEGATIVE) Streptococcus Screen Negative Discharge Plan Discharge Chief Complaint: Upper Respiratory Infection Clinical Impression: Pain, dental, Pharyngitis Patient Disposition: Home, Self-Care Time of Disposition Decision: 03:15 Condition: Good Mode of Transportation: Private Vehicle Prescriptions / Home Meds: New clindamycin HCl 300 mg capsule 300 mg PO Q6H 10 Days Qty: 40 0RF No Action atorvastatin 20 mg tablet lisinopril 40 mg tablet 40 mg PO DAILY Print Language: Bulgarian Instructions: Pharyngitis (ED), Toothache (ED) Referrals: [facility] [Primary Care Provider] - 1 week
[2024-06-19 03:07] LABS: Influenza Virus A Antigen Negative; Influenza Virus B Antigen Negative; Internal Control Within Normal Limits; SARS-CoV-2 Ag NEGATIVE (NEGATIVE); Strep A Antigen Screen Negative
[2024-06-19] MEDS: CLINDAMYCIN HCL 150 MG CAPSULE 300 MG PO (03:39)
== END 2024-06-19 03:43 | disposition home or self-care (01) ==
PROVIDERS: Emergency Provider Emergency Medicine
DX: J02.9 Acute pharyngitis, unspecified (principal); K08.89 Other specified disorders of teeth and supporting structures
CPT/HCPCS: 87070; 87804; 87811; 87880; 99283

== ENCOUNTER 2024-09-04 23:18 | Emergency (ER) | payer OTHER, SELFPAY ==
--- OUTSIDE RECORDS SUMMARY | 2017-11-25 07:15 | XMS_ITS | Continuity of Care Document ---
Author Organization [facility] Address [address] [place] [address] Phone Care Team Providers Care Traffic Attendant Name Role Phone Elmer Child DMD Unavailable [...] Diagnoses Date Provider Providers Copied on Encounter [facility], [address] [place] [address], [id number], [place] tel:[phone] Dental Clinic Dental Emergency (chief complaint) Encounter for screening for dental disorders 8 [facility] [address] [place], [address], [place]. tel:[phone] [facility], [address] [place] [address], [id number], [place] tel:[phone] Dental Clinic prophy (chief complaint) Encounter for screening for dental disorders 7 [facility] Dwayne. [address] [place], [address], [place]. tel:[phone] [facility], [address] [place] [address], [id number], [place] tel:[phone] Dental Clinic Dental examination 3 [facility] Mary. [address] [place], [place], [id number], [place]. tel:[phone] 23 [facility], [address] [place] [address], [id number], [place] tel:[phone] Dental Clinic Dental examination 3 [facility] Mary. [address] [place], [place], [id number], [place]. tel:[phone] 23 [facility], [address] [place], [id number], [place] tel:[phone] Dental Clinic Dental examination Sep-3 0-201 3 [facility] June. [address] [place], [place], [id number], [place]. tel:[phone] [facility], [address] [place], [place], [id number], [place] tel:[phone] Dental Clinic Dental examination Sep-2 5-201 3 [facility] June. [address] [place], [place], [id number], [place]. tel:[phone] [facility], [address] [place] [address], [id number], [place] tel:[phone] Dental Clinic Dental examination Sep-2 4- 3 [facility] June. [address] [place], [place], [id number], [place]. tel:[phone] [facility], [address] [place], [id number], [place] tel:[phone] Dental Clinic Dental examination Sep-1 7 3 [facility] June. [address] [place], [place], [id number], [place]. tel:[phone] Family History Family Member Type Diagnosis Age At Onset Mother Problem (finding) hypertension Father Problem (finding) train accident (Cause O f ) Mother Problem (finding) Alive and well Mother Problem (finding) Thyroid disorder Payers Payer name Insurance type Covered alliance party ID Carlos willoughby(s) [employer] [id number] D Medicaid Wrap - [facility] [id number] Social History Type Description Quantity Date Captured [...]
--- OUTSIDE RECORDS SUMMARY | 2024-03-10 10:00 | XMS_ITS ---
Author Organization [facility] Address [address] [place] [address] Care Team Providers Care Store Protection Specialist Name Role Phone Mary Birch Primary Care Provider [phone] REASON FOR VISIT DISCUSS LABS Encounters Encounter Location Date Provider Diagnosis [facility] [address] [place] [address] 03/10/2024 Mary Birch Plan Of Treatment No Information Progress Notes * GIOVANNA STREETER ADOB: [birth year] (49 yo F)Acc No.[id number]:03/10/2024 Progress Notes Patient: SAQIB PIERREECLATOYA Stoll Account Number:[id number] Appointment Provider: Devin BIRCH DO :1975 A ge:48 Y S ex:Female Date:03/10/2024 Address:[address] [place], [place] [id number] Subjective: * Chief Complaints: * 1 . DISCUSS LABS. * Medical History: Objective: * Vitals: Assessment: Plan: * Treatment: * Images: * Electronic signature of Nelson Birch DO on 09/04/2024 at 11:33 PM EDT Sign off status: Pending * Appointment Provider: Devin BIRCH DO Date: 05/11/2023 Generated for Printi ng/Faxing/eTransmitting on: 0 09/04/2024 11:33 PM EDT
[2024-09-04 23:23] VITALS: BP 126/88; PULSE 104; TEMP 36.5; O2SAT 97; BMI 34.0
--- OUTSIDE RECORDS SUMMARY | 2024-09-04 23:33 | XMS_ITS | Patient Health Record ---
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, [address] [place] Notes/Report: Reason for Exam Chronic diarrhea Reason for Exam Chronic fatigue;Myalgia, multiple sites;Paresthesia;Mild ane Deamidated Gliadin Abs, IgA 5 0-19 Negative 0 - 19 Weak Positive 20 - 30 Moderate to Strong Positive >30 Deamidated Gliadin Abs, IgG 3 0-19 Negative 0 - 19 Weak Positive 20 - 30 Moderate to Strong Positive >30 T-Transglutaminase (tTG) IgA <2 0-3 Negative 0 - 3 Weak Positive 4 - 10 Positive >10 Tissue Transglutaminase (tTG) has been identified as the endomysial antigen. Studies have demonstr- ated that endomysial IgA antibodies have over 99% specificity for gluten sensitive enteropathy. T-Transglutaminase (tTG) IgG <2 0-5 Negative 0 - 5 Weak Positive 6 - 9 Positive >9 Endomysial Antibody IgA Negative Negative Immunoglobulin A, Qn, Serum 132 87-352 mg/dL Performed at: [address] [id number] Cupola Patcher Helper: Main Miranda PhD, Phone: [phone] Cyclic Citrulliated Pep Ab Reviewed date:03/03/2024 06:26:53 PM Interpretation:Negative Performing Lab: Notes/Report: Reason for Exam Chronic diarrhea Reason for Exam Chronic fatigue;Myalgia, multiple sites;Paresthesia;Mild ane Cyclic Citrulliated Pep Ab 7 0-19 Negative <20 Weak positive 20 - 39 Moderate positive 40 - 59 Strong positive >59 Performed at: [address] [id number] Cupola Patcher Helper: Main Miranda PhD, Phone: [phone] Anti-dsDNA(DBL)Ab Reviewed date:03/03/2024 06:26:59 PM Interpretation:Negative Performing Lab: Notes/Report: Reason for Exam Chronic diarrhea Reason for Exam Chronic fatigue;Myalgia, multiple sites;Paresthesia;Mild ane Anti-dsDNA(DBL)Ab 2 0-9 [IU]/mL Negative <5 Equivocal 5 - 9 Positive >9 Erythrocyte Sedimentation Ra te Reviewed date:03/02/2024 01:03:18 PM Interpretation: Performing Lab: Notes/Report: Reason for Exam Benign essential hypertension Reason for Exam Chronic fatigue;Myalgia, multiple sites;Paresthesia;Mild ane Erythrocyte Sedimentation Rate 47 0-29 Complete Blood Count Auto Di ff Reviewed date:03/02/2024 01:04:50 PM Interpretation: Performing Lab:, [facility], [address], [place] Notes/Report: Reason for Exam Benign essential hypertension Reason for Exam Chronic fatigue;Myalgia, multiple sites;Paresthesia;Mild ane White Blood Count 7.9 3.8-11.6 10*3/uL Uncorrected WBC 7.9 3.8-11.6 10*3/uL Red Blood Count 4.02 3.60-5.00 10*6/uL Hemoglobin 11.9 11.8-15.4 g/dL Hematocrit 35.1 34.0-46.4 % Mean Corpuscular Volume 87.4 80-100 fL Mean Corpuscular Hemoglobin 29.5 24.7-34.3 pg Mean Corpuscular HGB Conc 33.8 32.0-35.0 g/dL Red Cell Distribution Width 13.8 11.9-15.3 % Platelet Count 505 150-450 10*3/uL Mean Platelet Volume 7.8 6.3-10.7 fL Neutrophils % (Auto) 50.6 . % Lymphocytes % (Auto) 37.8 . % Monocytes % (Auto) 7.8 . % Eosinophils % (Auto) 3.3 . % Basophils % (Auto) 0.5 . % NRBC% 0.1 0-0.5 /100{WBC} Neutrophils # (Auto) 4.0 1.8-7.7 10*3/uL Lymphocytes # (Auto) 3.0 1.00-4.8 10*3/uL Monocytes # (Auto) 0.6 0.0-0.8 10*3/uL Eosinophils # (Auto) 0.3 0.0-0.45 10*3/uL Basophils # (Auto) 0.0 0.0-0.2 10*3/uL Vit. B12/Folate Profile Reviewed date:03/02/2024 01:01:58 PM Interpretation:Normal Performing Lab: Notes/Report: Reason for Exam Benign essential hypertension Reason for Exam Chronic fatigue;Myalgia, multiple sites;Paresthesia;Mild ane Reason for Exam Hyperlipidemia Reason for Exam Benign essential hypertension;Chronic fatigue Vitamin B12 339 180-914 pg/mL Folate 8.6 >5.9 ng/mL Folate reference range: >5.9 ng/ml The WHO technical consultation on folate and vitamin b12 deficiencies has determined that folate concentrations less than 4 ng/ml are considered deficient. Thyroid Stimulating Hormone Reviewed date:03/02/2024 01:02:08 PM Interpretation:Normal Performing Lab: Notes/Report: Reason for Exam Benign essential hypertension Reason for Exam Chronic fatigue;Myalgia, multiple sites;Paresthesia;Mild ane Reason for Exam Hyperlipidemia Reason for Exam Benign essential hypertension;Chronic fatigue Thyroid Stimulating Hormone 1.17 0.45-5.33 u[i U]/mL Free T4 (Free Thyroxine) Reviewed date:03/02/2024 01:02:16 PM Interpretation:Normal Performing Lab: Notes/Report: Reason for Exam Benign essential hypertension Reason for Exam Chronic fatigue;Myalgia, multiple sites;Paresthesia;Mild ane Reason for Exam Hyperlipidemia Reason for Exam Benign essential hypertension;Chronic fatigue Free T4 (Free Thyroxine) 0.87 0.61-1.12 ng/dL Magnesium Reviewed date:03/02/2024 01:04:44 PM Interpretation:Low Performing Lab: Notes/Report: Reason for Exam Benign essential hypertension Reason for Exam Chronic fatigue;Myalgia, multiple sites;Paresthesia;Mild ane Reason for Exam Hyperlipidemia Reason for Exam Benign essential hypertension;Chronic fatigue Magnesium 1.6 1.9-2.7 mg/dL Lipid Panel Reviewed date:03/02/2024 01:02:34 PM Interpretation: Performing Lab: Notes/Report: Reason for Exam Benign essential hypertension Reason for Exam Chronic fatigue;Myalgia, multiple sites;Paresthesia;Mild ane Reason for Exam Hyperlipidemia Reason for Exam Benign essential hypertension;Chronic fatigue Cholesterol 201 140-200 mg/dL Chol less than 200 mg/dl low risk Chol 201-239 mg/dl borderline risk Chol 240 mg/dl and greater high risk HDL Cholesterol 40 23-92 mg/dL HDL CHOL ATP-III CLASSIFICATION Cardiovascular Risk HDL > or equal to 60 mg/dL LOW HDL < 40 mg/dL HIGH Triglyceride w/Reflex 328 0-149 mg/dL TRIG ATP III CLASSIFICATION TRIG less than 150 mg/dL Normal TRIG 150-199 mg/dL Borderline high TRIG 200-500 mg/dL High TRIG greater than 500 mg/dL Very high Standard traceable to the Center for Disease Conrtrol and Prevention (CDC) test method. LDL Cholesterol,Calculated 95 0-100 mg/dL LDL ATP III CLASSIFICATION LDL less than 100 mg/dL Optimal LDL 100-129 mg/dL Near or above optimal LDL 130-159 mg/dL Borderline high LDL 160-189 mg/dL High LDL greater than 189 mg/dL Very high VLDL CHOLESTEROL 65 Chol/HDL Ratio 5.0 <5.0 Ferritin Reviewed date:03/02/2024 01:03:41 PM Interpretation:Low Performing Lab: Notes/Report: Reason for Exam Benign essential hypertension Reason for Exam Chronic fatigue;Myalgia, multiple sites;Paresthesia;Mild ane Reason for Exam Hyperlipidemia Reason for Exam Benign essential hypertension;Chronic fatigue Ferritin 9.8 11.0-306.8 ng/mL C-Reactive Protein Reviewed date:03/02/2024 01:03:08 PM Interpretation: Performing Lab: Notes/Report: Reason for Exam Benign essential hypertension Reason for Exam Chronic fatigue;Myalgia, multiple sites;Paresthesia;Mild ane Reason for Exam Hyperlipidemia Reason for Exam Benign essential hypertension;Chronic fatigue C-Reactive Protein 0.8 0.0-0.5 mg/dL Comprehensive Metabolic Pane l Reviewed date:03/02/2024 01:04:04 PM Interpretation: Performing Lab:, [facility], [address] [place] Notes/Report: Reason for Exam Benign essential hypertension Reason for Exam Chronic fatigue;Myalgia, multiple sites;Paresthesia;Mild ane Reason for Exam Hyperlipidemia Reason for Exam Benign essential hypertension;Chronic fatigue Glucose 96 70-100 mg/dL Random Glucose Reference Range is dependent on time and content of last meal. Glucose of more than 200 mg/dL in a nonstressed, ambulatory subject supports the diagnosis of Diabetes Mellitus. ADA recommended reference range Blood Urea Nitrogen 16 7-25 mg/dL Creatinine 0.66 0.60-1.20 mg/dL Sodium 138 136-145 mmol/L Potassium 4.3 3.5-5.1 mmol/L Chloride 104 98-107 mmol/L Carbon Dioxide 24.7 21.0-31.0 mmol/L Calcium 9.0 8.6-10.3 mg/dL Total Protein 6.8 6.4-8.9 g/dL Albumin Level 4.1 3.5-5.7 g/dL Globulin 2.7 Albumin/Globulin Ratio 1.5 Bilirubin,Total 0.2 0.3-1.0 mg/dL Aspartate Amino Transferase 12 13-39 U/L Alanine Aminotransferase 14 7-52 U/L Alkaline Phosphatase 77 34-104 U/L Estimated GFR >60.0 Anion Gap 13.6 6.0-15.0 meq/L Iron and TIBC Profile Reviewed date:03/02/2024 01:03:49 PM Interpretation:Low Performing Lab: Notes/Report: Reason for Exam Benign essential hypertension Reason for Exam Chronic fatigue;Myalgia, multiple sites;Paresthesia;Mild ane Reason for Exam Hyperlipidemia Reason for Exam Benign essential hypertension;Chronic fatigue Iron 39 50-212 ug/dL Total Iron Binding Capacity 409 255-450 ug/dL % Iron Saturation 9.5 20-50 % Transferrin 292 203-362 mg/dL Lyme, Total Ab with Reflex Reviewed date:03/03/2024 06:27:06 PM Interpretation:Negative Performing Lab: Notes/Report: Reason for Exam Chronic diarrhea Reason for Exam Chronic fatigue;Myalgia, multiple sites;Paresthesia;Mild ane Lyme Total Antibody Negative Negative Lyme antibodies not detected. Reflex testing is not indicated. No laboratory evidence of infection with B. burgdorferi (Lyme disease). Negative results may occur in patients recently infected (less than or equal to 14 days) with B. burgdorferi. If recent infection is suspected, repeat testing on a new sample collected in 7 to 14 days is recommended. Performed at: [address] [id number] Cupola Patcher Helper: Main Miranda PhD, Phone: [phone] WESTLEY with Reflex Reviewed date:03/03/2024 06:26:25 PM Interpretation:Negative Performing Lab: Notes/Report: Reason for Exam Chronic diarrhea Reason for Exam Chronic fatigue;Myalgia, multiple sites;Paresthesia;Mild ane WESTLEY with Reflex Negative Negative Performed at: [address] [id number] Cupola Patcher Helper: Main Miranda PhD, Phone: [phone] Rheumatoid Factor Reviewed date:03/03/2024 06:27:10 PM Interpretation:Normal Performing Lab: Notes/Report: Reason for Exam Chronic diarrhea Reason for Exam Chronic fatigue;Myalgia, multiple sites;Paresthesia;Mild ane Rheumatoid Factor <10.0 <14.0 [IU]/mL Performed at: [address] [id number] Cupola Patcher Helper: Main Miranda PhD, Phone: [phone] Vitamin B1 (Thiamine) Blood Reviewed date:03/05/2024 11:58:21 AM Interpretation:Normal Performing Lab:, [facility], [address] [facility] Notes/Report: Reason for Exam Chronic fatigue;Myalgia, multiple sites;Paresthesia;Mild ane Vitamin B1 (Thiamine) Blood 132.0 66.5-200.0 This test was developed and its performance characteristics determined by [employer]. It has not been cleared or approved by the Food and Drug Administration. Performed at: [address] [id number] [employer] Patcher Helper: Norman Lind MD, Phone: [phone] Reason For Referral Reason SCHEDULED 02/12 Dr Slade Harp. Hypertension with frequent headaches and fatigue. Reports snoring Diagnosis 1 Benign essential hyp ertension (I10) Diagnosis 2 Snoring (R06.83) Referral Organization [facility] Referring Provider First Name Mary Referring Provider Last Name Christopher Referring Provider Speciality Family Pra ctice Referred Provider [facility], . Referred Provider Specialty Sleep Medici ne Referral Priority Routine Referral Appointment Date 02/13/2024 Medications Medication SIG (Take, Route, Frequency, Duration) Notes Start Date End Date Status Ferrous Sulfate 325 (65 Fe) MG 1 tablet Orally Three times a Week for 30 days 03/02/2024 Active Loperamide HCl 2 MG 1 capsule as needed Orally Four times a day Not-Taki ng Atorvastatin Calcium 20 MG TAKE 1 TABLET BY MOUTH DAILY for 90 Active Propranolol HCl 20 MG TAKE 1 TABLET BY M OUTH TWICE A DAY Active Lisinopril 40 MG TAKE 1 TABLET BY FANTASMA TH DAILY for 30 Active amLODIPine Besylate 5 MG take 1 tablet b y mouth once daily for 30 Not-Taking Zofran ODT 4 MG 1 tablet on the tong ue and allow to dissolve Orally every 8 hrs prn for 30 days Active Ibuprofen 800 mg #60 800 mg one tablet orally every 6 hours prn pain 11/24/2019 Active NexIUM 20 MG 1 capsule Orally Onc e a day for 30 day(s) 12/19/2022 Active Fluticasone Propionate 50 MCG/ACT 1 spray in each nostril Nasally Once a day for 30 days 06/04/2023 Active Social History Tobacco Use: Social History Observation Description Date Details (start date - stop date) Former Smoker NA - NA Tobacco Screen: Question Answer Notes Are you a: former smoker How long has it been since you last smoked? 1-3 months Sexual Hx: Question Answer Notes Had sex in the last 12 months (vaginal, oral, or anal)? Yes with Men only Use protection? No Prevention Strategies discussed: Abstinence Have you ever had an STD? No LMP: 07/02/2022 Alcohol Screening: Question Answer Notes Did you have a drink containing alcohol in the p ast year? No Interpretation Negative PRAPARE Question Answer Notes Date Completed/Updated: 09/08/2020 What is your current housing situation? I have h ousing Are you worried about losing your housing? No What is the highest level of school that you have finished? Less than a high school degree What is your current work situation? Oth erwise unemployed but not seeking work (ex. 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 Check all that apply I do not have problems meeting my needs Has lack of transportation k ept you from medical appointments, meetings, work or from getting things needed for daily living? No How often do you see or talk to people that you care about and feel close to? (For example: talking to friends on the phone, visiting friends or family, going to zoroastrianism or club meetings) More than 5 times a week How stressed are you? Stress is when someone feels tense, nervous, anxious, or cant sleep at night because their mind is troubled Somewhat In the past year have you sp ent more than 2 nights in a row in a correction, residential, senior living center, or juvenile correctional facility? No Are you a refugee? No What country are you from? [place] Do you feel physically and e motionally safe where you currently live? Yes In the past year, have you b een afraid of your partner or ex-partner? No PRAPARE Score: 5 Section Notes: current smoker 1ppd current smoker 1ppd current smoker 1ppd current smoker 1ppd current smoker 1ppd current smoker 1ppd current smoker 1ppd current smoker 1ppd current smoker 1ppd current smoker 1ppd current smoker 1ppd current smoker 1ppd current smoker 1ppd current smoker 1ppd current smoker 1ppd current smoker 1ppd current smoker 1ppd current smoker 1ppd current smoker 1ppd current smoker 1ppd current smoker 1ppd current smoker 1ppd current smoker 1ppd current smoker 1ppd current smoker 1ppd current smoker 1ppd current smoker 1ppd current smoker 1ppd current smoker 1ppd current smoker 1ppd current smoker 1ppd current smoker 1ppd current smoker 1ppd current smoker 1ppd current smoker 1ppd current smoker 1ppd current smoker 1ppd current smoker 1ppd current smoker 1ppd current smoker 1ppd current smoker 1ppd current smoker 1ppd current smoker 1ppd current smoker 1ppd current smoker 1ppd current smoker 1ppd current smoker 1ppd current smoker 1ppd current smoker 1ppd current smoker 1ppd current smoker 1ppd current smoker 1ppd current smoker 1ppd current smoker 1ppd current smoker 1ppd current smoker 1ppd current smoker 1ppd Problems Problem Type SNOMED Code ICD Code Onset Dates Problem Status W/U Status Risk Notes Problem 043295552 Hypomagnesemia (E83.42) Active confirmed Problem Essential hypertension (83772017) Essential (primary) hypertension (I10) Active confirmed Problem 491341013 Chronic sinusiti s, unspecified (J32.9) Active confirmed Problem 44198403 Dysuria (R30.0) Active confirmed Problem Excessive thirst (92163854) Polydipsia (R63.1) Active confirmed Problem Hyperlipidemia (46153099) Hyperlipidemia (E78.5) Active confirmed Problem 851867963 Dysmenorrhea (N94.6) Active confirmed Problem 10485667 Vitamin D deficiency (E55.9) Active confirmed Problem Anxiety (68060333) Anxiety (F41.9) Active confirmed Problem 97525499 Amenorrhea (N91.2) Active confirmed Problem Abdominal pain (21531411) Abdominal pain (R10.9) Active confirmed Problem Environmental allergy (597721815) Environmental allergies (Z91.09) Active confirmed Problem Anxiety state (646303231) Acute anxiety (F41.9) Active confirmed Problem 999452959 Paresthesia of b oth hands (R20.2) Active confirmed Problem 36939134 Other iron deficiency anemia (D50.8) Active confirmed Problem 607176289 Upper back pain (M54.9) Active confirmed Problem 56388813 Fatigue, unspecified type (R53.83) Active confirmed Problem 44836484 Chronic fatigue (R53.82) Active confirmed Problem 72602834086076 Abnormal uterine bleeding (N93.9) Active confirmed Problem Tension headache (607609559) Tension headache (G44.209) Active confirmed Problem 575877309 Hot flash, menopausal (N95.1) Active confirmed Problem Benign essential hypertension (7432975) Benign essential hypertension (I10) Active confirmed Problem 388582085 Iron deficiency anemia due to chronic blood loss (D50.0) Active confirmed Problem 247783604 Cervical motion tenderness (N94.9) Active confirmed Problem 963918584 Mild anemia (D64.9) Active confirmed Problem 191725655 Status migrainos us (G43.901) Active confirmed Problem 55027543 Current smoker (F17.200) Active confirmed Problem Pain in tooth (95417237) Pain in tooth (K08.89) Active confirmed Problem Migraine (39003605) Headache, migraine (G43.909) Active confirmed Problem 530267819 Seasonal allergi c rhinitis, unspecified trigger (J30.2) Active confirmed Problem 891640319 Gastroesophageal reflux disease, unspecified whether esophagitis present (K21.9) Active confirmed Problem Mild recurrent major depression (81739657) Depression, major, recurrent, mild (F33.0) Active confirmed Vital Signs Heart Rate 82 /min 02/04/2024 Temperature 97.2 degrees Fahrenheit 02/04/2024 Respiratory Rate 20 /min 02/04/2024 Oximetry 96 % 02/04/2024 Blood pressure diastolic 83 mm Hg 02/04/2024 Height 63.75 in 02/04/2024 Blood pressure systolic 127 mm Hg 02/04/2024 Weight 194.0 lbs 02/04/2024 BMI 33.56 kg/m2 02/04/2024 Encounters Encounter Location Date Provider Diagnosis [facility] [address] [place] [address] 09/18/2023 [place] [place] [address] 11/06/2023 [address] [place] [address] 11/27/2023 [address] [place] [address] 12/03/2023 [address] [place] [address] 12/16/2023 [address] [place] [address] 01/07/2024 [address] [place] [address] 01/31/2024 [address] [place] [address] 03/02/2024 Mary Christopher Iron deficiency E61. 1 and Hypomagnesemia E83.42 [address] [place] [address] 05/08/2024 Mary White Benign essential hypertension I10 [facility] [address] [place] [address] 11/13/2023 Mary White Snoring R06.83 ; Joe ign essential hypertension I10 and Hyperlipidemia E78.5 [facility] [address] [place] [address] 02/04/2024 Mary White Chronic fatigue R53. 82 ; Myalgia, multiple sites M79.18 ; Paresthesia R20.2 ; Hyperlipidemia E78.5 ; Benign essential hypertension I10 ; Mild anemia D64.9 ; Chronic diarrhea K52.9 and Nausea R11.0 Assessments Encounter Date Diagnosis (ICD Code) Assessment Notes Treatment Notes Treatment Clinical Notes Section Notes 02/04/2024 Chronic fatigue (ICD-10 - R53.82) Patient reports chronic fatigue. She reports almost daily headaches with light sensitivity and has experienced bilateral leg pain and tingling for at least several months. She states she has a history of upper extremity paresthesias as well. These do seem to be intermittent. She reports generalized chronic myalgias. Patient has never had autoimmune work up. Will get routine labs and check inflammatory markers, lyme, and vitamin levels. She does report snoring. Discussed snoring with daily headaches, fatigue, and hypertension could be 2/2 sleep apnea. She would like to get bloodwork completed first and if normal consider referral to sleep medicine. Consider underlying fibromyalgia if workup negative and cannot rule out other more unlikely conditions such as MS. Return precautions discussed 02/04/2024 Myalgia, multiple sites (ICD-10 - M79.18) Please see above 05/08/2024 Benign essential hypertension (ICD-10 - I10) 03/02/2024 Iron deficiency (ICD-10 - E61.1) 03/02/2024 Hypomagnesemia (ICD-10 - E83.42) 11/13/2023 Snoring (ICD-10 - R06.83) Pt reports loud snoring, daytime fatigue, headaches, and has hypertension. Educated patient on sleep apnea and she is agreeable to a referral for evaluation. 11/13/2023 Benign essential hypertension (ICD-10 - I10) Pt was recently evaluated in the ER for elevated blood pressures with chest pain and headache. Cardiac workup was negative. She was treated and discharged on Nifedipine. In the Spring, I started her on Norvasc but she never started this. She has been monitoring her BPs since being in the emergency room and states they have been within normal since. She has not started the Nifedipine yet due to cost. She is getting paid tomorrow and will get the rx then. Discussed possibility of starting the Norvasc since it is within the same class and more afforable but she declined. Risks, benefits, side effects discussed. She is to call with any concerns. Plan: -Start Nifedipine -Referral to sleep medicine -Follow up 2 weeks 11/13/2023 Hyperlipidemia (ICD-10 - E78.5) Continue current medication. 02/04/2024 Paresthesia (ICD-10 - R20.2) Please see above 02/04/2024 Hyperlipidemia (ICD-10 - E78.5) Will get routine bloodwork and recheck lipid panel. Refill sent. 02/04/2024 Benign essential hypertension (ICD-10 - I10) BP is within goal range today. Will get yearly routine labwork. Refill sent 02/04/2024 Mild anemia (ICD-10 - D64.9) Patient with chronic anemia. Will recheck CBC with B12/folate and iron studies. 02/04/2024 Chronic diarrhea (ICD-10 - K52.9) Pt endorses daily chronic diarrhea. Will check autoimmune markers and celiac panel. 02/04/2024 Nausea (ICD-10 - R11.0) Refill sent. Plan Of Treatment Pending Test Test Name Order Date [place] with Reflex 02/04/2024 Insurance Providers Payer Name Payer Address Payer Phone Subscriber Number Group Number Insured Name Patient Relationship to Insured Coverage Start Date Coverage End Date [facility] [address] [place] [address] [id number] Self - patient is the insured 4 [facility] [address] [place] [address] [id number] [employer] [address]RE[address] Self - patient is the insured 1 4 [facility] ed 22. [address] [place] [address] [phone] [id number] SYL, GIOVANNA Self - patient is the insured 1 3 zMEDICAID [employer] after [place] [address] [place] [address] [id number] SYL, GIOVANNA Self - patient is the insured 1 3 [employer]DENTAL [employer] [address] [address] [place] [address] [id number] SYL GIOVANNA Self - patient is the insured 0 3 zDental MEDICAID [employer] after [place] [address] [place] [address] [phone] [id number] SYL GIOVANNA Self - patient is the insured 0 3 [employer] [place] [employer] [address] [place] [address] [id number] SYL GIOVANNA Self - patient is the insured 2 4 [employer] [address] [address] [place] [address] [id number] SYL, GIOVANNA Self - patient is the insured 3 [facility] [address] [place] [address] [id number] SYL, GIOVANNA Self - patient is the insured 3 [employer] [place] [employer] [address] [place] [address] [id number] SYL, GIOVANNA Self - patient is the insured 3 [employer] [address] [place] [address] [phone] [id number] SYL, GIOVANNA Self - patient is the insured 3 Medical (General) History Medical History History ICD Code scoliosis torticollis at migraines Kidney Stone depression anxiety Surgical History Surgery Date(Month/Year) removal left SCM muscle to release torti doug infancy TUBUAL LIGATION 2006 lipotripsy Hospitalization History Reason Date(Month/Year) Depression/suicidal See surgical
--- NOTE | 2024-09-04 23:38 | ED.GENADUL1 ---
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 She denies nausea or vomiting. There has been some shortness of breath. She denies any infectious symptoms. Additionally she states in the last 4 days she has had pain at the base of the right little finger and she states that it feels dislocated. She is unable to move it. She cannot recall any injury to the right hand. She has hypertension for which she takes lisinopril. She is a cigarette smoker and denies alcohol use. Related Data Home Medications ?Medication ?Instructions ?Recorded ?Confirmed lisinopril 40 mg tablet 40 mg PO DAILY 11/29/23 09/04/24 atorvastatin 20 mg tablet 20 mg PO DAILY 06/19/24 09/04/24 Allergies Allergy/AdvReac Type Severity Reaction Status Date / Time codeine (From Allergy Mild Rash Verified 09/04/24 23:30 Tylenol-Codeine) morphine Allergy Mild rash Verified 09/04/24 23:30 Penicillins Allergy Mild Rash Verified 09/04/24 23:30 cefdinir Allergy Unknown Rash Verified 09/04/24 23:30 hydromorphone (From Dilaudid) AdvReac Severe Difficulty Verified 09/04/24 23:30 Breathing Opioid HPI Opioid Management Most Recent Opioid Data: Last Pain Scale 10 06/19/24, 02:57 Review of Systems ROS Status of ROS 10 or more systems reviewed and unremarkable except as noted in history and below [facility] Social History Smoking status: Never smoker Little interest or pleasure in doing things: not at all Feeling down, depressed, or hopeless: not at all Exam Narrative Exam Narrative: Patient does not appear acutely distressed and has stable vital signs. HEENT exam is normal to inspection. Neck is supple. Lung sounds are clear to auscultation bilaterally with good air entry. Heart has regular rate and rhythm. Abdomen is protuberant, soft and nontender. There is no fluid wave or organomegaly. She does not have calf tenderness or unilateral leg swelling. She does not have facial asymmetry. Speech and mentation are clear and intact. She moves all extremities actively. Examination of the right hand does not reveal any obvious deformity. Patient holds the little finger of the right hand stiffly in extension. She is able to flex the finger but has some pain with that and tends to stick a little consistent with trigger finger. Skin is warm and dry. Constitutional Vital Signs, click to edit/add: Last Vital Signs Temp 97.7 F 09/04/24 23:23 Pulse 104 H 09/04/24 23:23 Resp 20 09/04/24 23:23 BP 126/88 09/04/24 23:23 Pulse Ox 97 09/04/24 23:23 O2 Del Method Room Air 09/04/24 23:23 Course Vital Signs Vital signs: Vital Signs Temperature 97.7 F 09/04/24 23:23 Pulse Rate 104 H 09/04/24 23:23 Respiratory Rate 20 09/04/24 23:23 Blood Pressure 126/88 09/04/24 23:23 Pulse Oximetry 97 09/04/24 23:23 Oxygen Delivery Method Room Air 09/04/24 23:23 Temperature 97.7 F 09/04/24 23:23 Pulse Rate 104 H 09/04/24 23:23 Respiratory Rate 20 09/04/24 23:23 Blood Pressure 126/88 09/04/24 23:23 Pulse Oximetry 97 09/04/24 23:23 Oxygen Delivery Method Room Air 09/04/24 23:23 Medical Decision Making MDM Narrative Medical decision making narrative: The twelve-lead EKG is interpreted by me and shows sinus tachycardia with rate 103 bpm. The axis is normal. No acute ischemic changes are noted. 2 sets of cardiac biomarkers are normal. Right hand x-rays are normal. Cardiac workup is essentially benign. Patient's chest pain is starting to improve and is felt to be of musculoskeletal etiology. She is advised to use Voltaren gel at the base of the little finger for pain and will be referred to outpatient orthopedics for this. I will again provide her with a referral for cardiology for further management of her chest pain which at this time certainly does not sound cardiac in etiology. She is advised to return anytime for worsening symptoms. Lab Data Labs: Lab Results 09/04/24 09/05/24 Range/Units 23:30 01:24 WBC 9.2 (4.0-11.0) 10^3/uL RBC 4.71 (4.20-5.40) 10^6/uL Hgb 14.5 (12.0-16.0) g/dL Hct 41.2 (36.0-48.0) % MCV 87.5 (81.0-99.0) fL MCH 30.8 (26.7-34.0) pg MCHC 35.2 (29.9-35.2) g/dL RDW 13.1 (11.0-15.0) % Plt Count 407 (150-450) 10^3/uL MPV 9.8 (9.5-13.5) fL Neut % (Auto) 57.5 (43.0-75.0) % Lymph % (Auto) 33.2 (20.5-60.0) % Park % (Auto) 5.8 (1.7-12.0) % Eos % (Auto) 3.0 (0.9-7.0) % Baso % (Auto) 0.3 (0.2-2.0) % Neut # (Auto) 5.3 (1.4-6.5) 10^3/uL Lymph # (Auto) 3.0 (1.2-3.8) 10^3/uL Park # (Auto) 0.5 (0.3-0.8) 10^3/uL Eos # (Auto) 0.3 (0.0-0.7) 10^3/uL Baso # (Auto) 0.0 (0.0-0.1) 10^3/uL Abs Immat Gran (auto) 0.02 (0.00-0.03) 10^3/uL Imm/Tot Granulo (auto) 0.2 (0.0-0.5) % D-Dimer 0.23 (<=0.59) mg/L FEU Sodium 142 (136-145) mmol/L Potassium 3.6 (3.5-5.1) mmol/L Chloride 102 (98-107) mmol/L Carbon Dioxide 25.8 (21.0-32.0) mmol/L Anion Gap 17.8 BUN 19.0 H (7.0-18.0) mg/dL Creatinine 0.82 (0.55-1.02) mg/dL Est GFR ( Amer) >60 (>=60 mL/min/1.73m^2) Est GFR (Non-Af Amer) >60 (>=60 mL/min/1.73m^2) BUN/Creatinine Ratio 23.2 Glucose 127 H (74-106) mg/dL Calcium 10.0 (8.5-10.1) mg/dL Total Bilirubin 0.2 (0.2-1.0) mg/dL AST 25 (15-37) U/L ALT 45 (14-59) U/L Alkaline Phosphatase 109 (46-116) U/L Troponin I High Sens 37.3 35.4 (4.0-51.3) pg/mL Total Protein 8.2 (6.4-8.2) g/dL Albumin 4.1 (3.4-5.0) g/dL Globulin 4.1 g/dL Albumin/Globulin Ratio 1.0 Lipase 127.0 H (16.0-77.0) U/L Discharge Plan Discharge Chief Complaint: Chest Pain Clinical Impression: Atypical chest pain Trigger finger of right hand Qualifiers: Trigger finger location: little finger Qualified Code(s): M65.351 - Trigger finger, right little finger Patient Disposition: Home, Self-Care Time of Disposition Decision: 02:32 Condition: Good Mode of Transportation: Private Vehicle Prescriptions / Home Meds: No Action atorvastatin 20 mg tablet 20 mg PO DAILY lisinopril 40 mg tablet 40 mg PO DAILY Print Language: Sinhala Instructions: Trigger Finger (ED), Chest Wall Pain (ED) Additional Instructions: Ibuprofen 400 mg 3 times a day for chest pain as needed. Apply Voltaren gel to base of right little finger to help with pain. You may do this 3 times a day. 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 Return for worsening symptoms. Referrals: [facility] [Primary Care Provider] - 1 week Yaya Major MD [Physician, Orthopedics] - 1 week OVIDIO JUNIOR MD [Physician, Cardiology] - 1 week
--- NOTE | 2024-09-04 23:40 | XR_ITS ---
The [place] [id number] Patient Name: GIOVANNA STREETER MRN: [id number] date: 1975 Sex: F Assigned Patient Location: ED.MAIN Current Patient Location: ED.MAIN Accession/Order Number: [id number] Exam Date: 09/05/2024 00:01 Report Date: 09/05/2024 00:02 At the request of: LJ ORR MD Procedure: XR hand RT min 3V 3 views right hand plain film COMPARISON: None HISTORY: Right hand pain. ACUTE FINDINGS: None DEGENERATIVE CHANGE: Unremarkable SOFT TISSUE FINDINGS: Unremarkable JOINT EFFUSION: None POSTOP CHANGES: None BONY MINERALIZATION: Adequate XR/XR hand RT min 3V IMPRESSION: No acute findings or significant degeneration. Impression dictated by: Kingsley Perales M.D. 09/05/2024 12:02 AM Dictation Location: [employer] Electronically authenticated by: [id number] Y Date: 09/05/2024 00:02
--- NOTE | 2024-09-04 23:40 | ECG_ITS ---
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 Measurements Intervals [place] Rate: 103 P: 54 VT: 162 QRS: 48 QRSD: 90 T: 46 QT: 338 QTc: 398 Interpretive Statements 1120 Sinus tachycardia 8102 Low QRS voltage in chest leads abnormal ECG Compared to ECG 11/29/2023 03:52:31 Heart rate has increased Electronically Signed On 09-05-2024 6:25:42 EDT by CLIFFORD APARICIO M.D.
[2024-09-04 23:48] LABS: Basophils Percent Auto 0.3 % (0.2-2.0); Eosinophils Absolute Auto 0.3 10^3/uL (0.0-0.7); Hematocrit 41.2 % (36.0-48.0); Hemoglobin 14.5 g/dL (12.0-16.0); Immature Granulocytes Abs Auto 0.02 10^3/uL (0.00-0.03); Immature Granulocytes Pct Auto 0.2 % (0.0-0.5); Lymphocytes Percent Auto 33.2 % (20.5-60.0); Mean Corpuscular HGB Conc 35.2 g/dL (29.9-35.2); Mean Corpuscular Hemoglobin 30.8 pg (26.7-34.0); Mean Corpuscular Volume 87.5 fL (81.0-99.0); Mean Platelet Volume 9.8 fL (9.5-13.5); Monocytes Absolute Auto 0.5 10^3/uL (0.3-0.8); Monocytes Percent Auto 5.8 % (1.7-12.0); Neutrophils Absolute Auto 5.3 10^3/uL (1.4-6.5); Neutrophils Percent Auto 57.5 % (43.0-75.0); Platelet Count 407 10^3/uL (150-450); Red Blood Count 4.71 10^6/uL (4.20-5.40); Red Cell Distribution Width 13.1 % (11.0-15.0); White Blood Count 9.2 10^3/uL (4.0-11.0)
[2024-09-05 00:04] LABS: D Dimer 0.23 mg/L FEU (<=0.59)
[2024-09-05] MEDS: ASPIRIN 81 MG TAB.CHEW 324 MG PO (00:06)
[2024-09-05 00:10] LABS: Troponin I High Sensitivity 37.3 pg/mL (4.0-51.3)
[2024-09-05 00:11] LABS: Alanine Aminotransferase 45 U/L (14-59); Albumin Level 4.1 g/dL (3.4-5.0); Alkaline Phosphatase 109 U/L (46-116); Anion Gap 17.8; Aspartate Amino Transferase 25 U/L (15-37); BUN Creatinine Ratio 23.2; Bilirubin Total 0.2 mg/dL (0.2-1.0); Carbon Dioxide 25.8 mmol/L (21.0-32.0); Chloride 102 mmol/L (98-107); Estimated GFR (African America >60 (>=60 mL/min/1.73m^2); Estimated GFR (Non-African Ame >60 (>=60 mL/min/1.73m^2); Globulin 4.1 g/dL; Glucose 127 mg/dL (74-106); Potassium 3.6 mmol/L (3.5-5.1); Sodium 142 mmol/L (136-145); Total Protein 8.2 g/dL (6.4-8.2)
[2024-09-05 01:50] LABS: Troponin I High Sensitivity 35.4 pg/mL (4.0-51.3)
[2024-09-05 02:51] VITALS: BP 153/89; PULSE 71; O2SAT 99
== END 2024-09-05 02:56 | disposition home or self-care (01) ==
PROVIDERS: Emergency Provider Emergency Medicine
DX: R07.89 Other chest pain (principal); M65.351 Trigger finger, right little finger; I10 Essential (primary) hypertension; Z79.899 Other long term (current) drug therapy; F17.210 Nicotine dependence, cigarettes, uncomplicated
CPT/HCPCS: 36415; 71046; 73130; 80053; 83690; 84484; 85025; 85378; 93005; 99285

== ENCOUNTER 2024-11-18 00:35 | Emergency (ER) | payer OTHER, SELFPAY ==
--- OUTSIDE RECORDS SUMMARY | 2017-11-25 07:15 | XMS_ITS | Continuity of Care Document ---
Author Organization [facility] Address [address] [place] [address] Phone Care Team Providers Care Cocktail Server Name Role Phone Elmer Child DMD Unavailable Unav ailable Allergies, Adverse Reactions, Alerts Substance Reaction Status Criticality Penicillins Active No Information Medications Medication Instructions Dosage Effective Dates (start - stop) Status Comments Tylenol Extra Strength 500 mg tablet take 2 tablet by oral route every 4 - 6 hours as needed not to exceed 8 tablets per 24hrs 1000 MG - Active lisinopril 20 mg-hydrochlorothia zide 25 mg tablet take 1 tablet by oral route every day 1.00 tablet - Active ATORVASTATIN CALCIUM (unknown strength) take 1 tablet by oral route every day Not Available - Active Motrin IB 200 mg tablet take 3 tablet by oral route every 6 hours as needed with food 600 MG - Active clindamycin HCl 300 mg capsule take 1 capsule by oral route every 8 hours 300 MG - No Longer Active clindamycin 150 mg capsule take 1 capsule by oral route every 8 hours 150 MG - No Longer Active clindamycin 150 mg capsule take 1 capsule by oral route every 8 hours 150 MG - No Longer Active LIPITOR (unknown strength) take 1 tablet by oral route every day Not Available - No Longer Active Procedures Procedure Date Intraoral-periapical 1st Film 8 Oral Hygiene Instruction Limited Oral Eval Dental Emergency Prophylaxis Adult Tobacco Counseling Oral Hygiene Instruction Periodic Oral Eval Estab Patient 2016 Bitewings Four Films Prophylaxis Adult Oral Hygiene Instruction Intraoral-complete Series (bw) 13 Comp Oral Eval New/estab Patient 2012 Extract; Erupted Th/exposted Rt 013 Extract; Erupted Th/exposted Rt 013 Limited Oral Eval Oral Hygiene Instruction Extraction Surgical/erupt Tooth 013 No Charge Panoramic Film Limited Oral Eval Advance Directives Directive Yes / No Effective Date File Name No Information Encounters Encounter Description Practice Location Reason(s) For Visit Diagnoses Date Provider Providers Copied on Encounter [facility], [address] [place] [address], [id number], [place] tel:[phone] Dental Clinic Dental Emergency (chief complaint) Encounter for screening for dental disorders 8 [facility] [address] [place], [address], [place]. tel:[phone] [facility], [address] [place] [address], [id number], [place] tel:[phone] Dental Clinic prophy (chief complaint) Encounter for screening for dental disorders 7 [facility] Dwayne. [address] [place], [address], [place]. tel:[phone] 23 [facility], [address] [place] [address], [id number], [place] tel:[phone] Dental Clinic Dental examination 3 [facility] Mary. [address] [place], [place], [id number], [place]. tel:[phone] 23 [facility], [address] [place] [address], [id number], [place] tel:[phone] Dental Clinic Dental examination 3 [facility] Mary. [address] [place], [place], [id number], [place]. tel:[phone] 23 [facility], [address] [place], [place], [id number], [place] tel:[phone] Dental Clinic Dental examination Sep-3 0-201 3 [facility] June. [address] [place], [place], [id number], [place]. tel:[phone] [facility], [address] [place], [place], [id number], [place] tel:[phone] Dental Clinic Dental examination Sep-2 5-201 3 [facility] June. [address] [place], [place], [id number], [place]. tel:[phone] [facility], [address] [place] [address], [id number], [place] tel:[phone] Dental Clinic Dental examination Sep-2 4- 3 [facility] June. [address] [place], [place], [id number], [place]. tel:[phone] 23 [facility], [address] [place], [place], [id number], [place] tel:[phone] Dental Clinic Dental examination Sep-1 7 3 [facility] June. [address] [place], [place], [id number], [place]. tel:[phone] Family History Family Member Type Diagnosis Age At Onset Mother Problem (finding) hypertension Father Problem (finding) train accident (Cause O f ) Mother Problem (finding) Alive and well Mother Problem (finding) Thyroid disorder Payers Payer name Insurance type Covered libertarian ID Carlos willoughby(s) [employer] [id number] D Medicaid Wrap - [facility] [place] [id number] Social History Type Description Quantity Date Captured Comments Alcohol Use Details Unknown Caffeine Use Details Unknown Tobacco Use Status Heavy cigarette smok er (20-39 cigs/day) Smoking Status Heavy tobacco smoker Smoking Tobacco Use Details Cigarette: Years Used 20 Cigarette: 1 Packs per day, Pack Year: 20 Sex Female Sexual Orientation Straight or heterosexual Gender Identity Female Vital Signs Date / Time: Height Weight BMI Pulse Rate Blood Pressure Temperature Respiratory Rate Body Surface Area Head Circumference Head Circ. Percentile Wt./Jairon. Percentile BMI percentile Pulse Ox Inhaled Ox 9:56 AM 80 /min 133/91 mm[Hg] Chief Complaint And Reason For Visit From encounter dated '11/25/2017 11:15'. Dental Emergency (chief complaint). Description: Lower left -8 pain level- feels infection going through her body. Reason For Referral Reason For Referral No Information History Of Present Illness Encounter Date Complaint History Of Prese nt Illness Dental Emergency Lower left -8 p ain level- feels infection going through her body. prophy Functional Status Date Functional Assessmen t No Information Instructions Date Instruction Additional Infor mation No Information Assessments Type Assessment Date assessment Encounter for screening for dent al disorders Patient Care Teams Name Effective Dates (start - stop) Status Members No Information
--- OUTSIDE RECORDS SUMMARY | 2024-03-10 10:00 | XMS_ITS ---
Author Organization [facility] Address [address] [place] [address] Care Team Providers Care Filleter Name Role Phone Mary Rosales Primary Care Provider [phone] REASON FOR VISIT DISCUSS LABS Encounters Encounter Location Date Provider Diagnosis [facility] [address] [place] [address] 03/10/2024 Mary Rosales Plan Of Treatment No Information Progress Notes * GIOVANNA STREETER ADOB: [birth year] (49 yo F)Acc No.[id number]:03/10/2024 Progress Notes Patient: SAQIB PIERREECLATOYA Stoll Account Number:[id number] Appointment Provider: Devin BIRCH DO :1975 A ge:48 Y S ex:Female Date:03/10/2024 Address:[address] [place], [place] [phone] Subjective: * Chief Complaints: * 1 . DISCUSS LABS. * Medical History: Objective: * Vitals: Assessment: Plan: * Treatment: * Images: * Electronic signature of Nelson Rosales DO on 11/18/2024 at 12:44 AM EDT Sign off status: Pending * Appointment Provider: Devin BIRCH DO Date: 1 05/11/2023 Generated for Printi ng/Faxing/eTransmitting on: 0 11/18/2024 12:44 AM EDT
[2024-11-18 00:38] VITALS: BP 109/68; PULSE 98; TEMP 36.9; O2SAT 97; BMI 33.7
--- OUTSIDE RECORDS SUMMARY | 2024-11-18 00:44 | XMS_ITS | Patient Health Record ---
Author Organization [facility] Address [address] [place] [address] Care Team Providers Care Multiple Sclerosis Nurse Name Role Phone tonnyMary Sosa Primary Care Provider Allergies Allergen (clinical drug ingredient) Drug/Non Drug Allergy documented on EMR Reaction Allergy Type Onset Date Status hydromorphone Dilaudid Unknown Drug Allergy Act gregory morphine Morphine Sulfate Unknown Drug Allergy Active Penicillin hives Drug Allergy Active Results Component Value Reference Range Notes Celiac Reviewed date:03/03/2024 06:26:37 PM Interpretation: Performing Lab:, [facility], [address] [place] Notes/Report: Reason for Exam Chronic diarrhea Reason [...] Qn, Serum 132 87-352 mg/dL Performed at: [facility] [address] [id number] Tmd Teacher Assistant: Main Miranda PhD, Phone: [phone] Cyclic Citrulliated Pep Ab Reviewed date:03/03/2024 06:26:53 PM Interpretation:Negative Performing Lab: Notes/Report: Reason for Exam Chronic diarrhea Reason for Exam Chronic fatigue;Myalgia, multiple sites;Paresthesia;Mild ane Cyclic Citrulliated Pep Ab 7 0-19 Negative <20 Weak positive 20 - 39 Moderate positive 40 - 59 Strong positive >59 Performed at: [address] [id number] Tmd Teacher Assistant: Main Miranda PhD, Phone: [phone] Anti-dsDNA(DBL)Ab Reviewed date:03/03/2024 06:26:59 PM Interpretation:Negative Performing [...] Reviewed date:03/02/2024 01:04:50 PM Interpretation: Performing Lab:, [facility], [address], [facility] Notes/Report: Reason for Exam Benign essential hypertension [...] Reviewed date:03/02/2024 01:04:04 PM Interpretation: Performing Lab:, [facility], [place] Notes/Report: Reason for Exam Benign essential hypertension [...] GFR >60.0 Anion Gap 13.6 6.0-15.0 meq/L Rheumatoid Factor Reviewed date:03/03/2024 06:27:10 PM Interpretation:Normal Performing Lab: Notes/Report: Reason for Exam Chronic diarrhea Reason for Exam Chronic fatigue;Myalgia, multiple sites;Paresthesia;Mild ane Rheumatoid Factor <10.0 <14.0 [IU]/mL Performed at: - [facility] [id number] Tmd Teacher Assistant: Main Miranda PhD, Phone: [phone] Vitamin B1 (Thiamine) Blood Reviewed date:03/05/2024 11:58:21 AM Interpretation:Normal Performing Lab:, [facility], [place] Notes/Report: Reason for Exam Chronic fatigue;Myalgia, multiple sites;Paresthesia;Mild ane Vitamin B1 (Thiamine) Blood 132.0 66.5-200.0 This test was developed and its performance characteristics determined by [facility]. It has not been cleared or approved by the Food and Drug Administration. Performed at: [address] [id number] Tmd Teacher Assistant: Norman Lind MD, Phone: [phone] [place], Total Ab with Reflex Reviewed date:03/03/2024 [...] to 14 days is recommended. Performed at: [address] [id number] Tmd Teacher Assistant: Main Miranda PhD, Phone: [phone] Iron and TIBC Profile Reviewed date:03/02/2024 01:03:49 PM Interpretation:Low Performing Lab: Notes/Report: Reason for Exam Benign essential hypertension Reason for Exam Chronic fatigue;Myalgia, multiple sites;Paresthesia;Mild ane Reason for Exam Hyperlipidemia Reason for Exam Benign essential hypertension;Chronic fatigue Iron 39 50-212 ug/dL Total Iron Binding Capacity 409 255-450 ug/dL % Iron Saturation 9.5 20-50 % Transferrin 292 203-362 mg/dL [place] with Reflex Reviewed date:03/03/2024 06:26:25 PM Interpretation:Negative Performing Lab: Notes/Report: Reason for Exam Chronic diarrhea Reason for Exam Chronic fatigue;Myalgia, multiple sites;Paresthesia;Mild ane [place] with Reflex Negative Negative Performed at: [address] [id number] Tmd Teacher Assistant: Main Miranda PhD, Phone: [phone] Reason For Referral No Information Medications Medication SIG (Take, Route, Frequency, Duration) Notes Start Date End Date Status Ferrous Sulfate 325 (65 Fe) MG 1 tablet Orally Three times a Week; Duration: 30 days 03/02/2024 Active Loperamide HCl 2 MG 1 capsule as needed Orally Four times a day Not-Taki ng Atorvastatin Calcium 20 MG TAKE 1 TABLET BY MOUTH DAILY; Duration: 90 Active Propranolol HCl 20 MG TAKE 1 TABLET BY M OUTH TWICE A DAY Active Lisinopril 40 MG TAKE 1 TABLET BY FANTASMA TH DAILY; Duration: 30 Active amLODIPine Besylate 5 MG take 1 tablet b y mouth once daily; Duration: 30 Not-Taking Zofran ODT 4 MG 1 tablet on the tong ue and allow to dissolve Orally every 8 hrs prn; Duration: 30 days Active Ibuprofen 800 mg #60 800 mg one tablet orally every 6 hours prn pain 11/24/2019 Active NexIUM 20 MG 1 capsule Orally Onc e a day; Duration: 30 day(s) 12/19/2022 Active Fluticasone Propionate 50 MCG/ACT 1 spray in each nostril Nasally Once a day; Duration: 30 days 06/04/2023 Active Social History Tobacco [...] 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 Stress is when someone feels tense, nervous, anxious, or cant sleep at night because their mind is troubled Somewhat In the past year have you sp ent more than 2 nights in a row in a nursing home, penitentiary, long-term center, or juvenile correctional facility? No Are [...] Problem Status W/U Status Risk Notes Problem Hypomagnesemia (937600490) Hypomagnesemia (E83.42) Active confirmed Problem Essential hypertension (39377915) Essential (primary) hypertension (I10) Active confirmed Problem Chronic sinusitis (13933169) Chronic sinusitis, unspecified (J32.9) Active confirmed Problem Dysuria (60226905) Dysuria (R30.0) Active confi rmed Problem Excessive thirst (31892679) Polydipsia (R63.1) Active confirmed Problem Hyperlipidemia (10996187) Hyperlipidemia (E78.5) Active confirmed Problem Dysmenorrhea (170297462) Dysmenorrhea (N94.6) Active confirmed Problem Vitamin D deficiency (40006350) Vitamin D deficiency (E55.9) Active confirmed Problem Anxiety (93601642) Anxiety (F41.9) Active confi rmed Problem Amenorrhea (95243627) Amenorrhea (N91.2) Active confirmed Problem Abdominal pain (56141282) Abdominal pain (R10.9) Active confirmed Problem Environmental allergy (747027520) Environmental allergies (Z91.09) Active confirmed Problem Anxiety state (818298875) Acute anxiety (F41.9) Active confirmed Problem Paresthesia of both hands (074213029) Paresthesia of both hands (R20.2) Active confirmed Problem Iron deficiency anemia (88495646) Other iron deficiency anemia (D50.8) Active confirmed Problem Thoracic back pain (110468024) Upper back pain (M54.9) Active confirmed Problem Fatigue (16614223) Fatigue, unspecified type (R53.83) Active confirmed Problem Chronic fatigue syndrome (57706153) Chronic fatigue (R53.82) Active confirmed Problem Abnormal uterine bleeding (91921450648653) Abnormal uterine bleeding (N93.9) Active confirmed Problem Tension headache (993781621) Tension headache (G44.209) Active confirmed Problem Menopausal flushing (937288853) Hot flash, menopausal (N95.1) Active confirmed Problem Benign essential hypertension (2742497) Benign essential hypertension (I10) Active confirmed Problem Iron deficiency anemia due to chronic blood loss (079396641) Iron deficiency anemia due to chronic blood loss (D50.0) Active confirmed Problem Disorder of female genital organs (318052105) Cervical motion tenderness (N94.9) Active confirmed Problem Anemia (896479379) Mild anemia (D64.9) Active confirmed Problem Status migrainosus (666528281) Status migrainosus (G43.901) Active confirmed Problem Current smoker (56536823) Current smoker (F17.200) Active confirmed Problem Pain in tooth (30372705) Pain in tooth (K08.89) Active confirmed Problem Migraine (47435494) Headache, mi graine (G43.909) Active confirmed Problem Seasonal allergic rhinitis (213693349) Seasonal allergic rhinitis, unspecified trigger (J30.2) Active confirmed Problem Gastroesophageal reflux disease (923211644) Gastroesophageal reflux disease, unspecified whether esophagitis present (K21.9) Active confirmed Problem Mild recurrent major depression (73736527) Depression, major, recurrent, mild (F33.0) Active confirmed Vital Signs Heart Rate 82 /min 02/04/2024 Temperature 97.2 degrees Fahrenheit 02/04/2024 Respiratory Rate 20 /min 02/04/2024 Blood pressure diastolic 83 mm Hg 02/04/2024 Oximetry 96 % 02/04/2024 Height 63.75 in 02/04/2024 Blood pressure systolic 127 mm Hg 02/04/2024 Weight 194.0 lbs 02/04/2024 BMI 33.56 kg/m2 02/04/2024 Encounters Encounter Location Date Provider Diagnosis [facility] [address] [place] [address] 11/27/2023 [place] [address] [place] [address] 12/03/2023 [place] [address] [place] [address] 12/16/2023 [place] [address] [place] [address] 01/07/2024 [place] [address] [place] [address] 01/31/2024 [place] [address] [place] [address] 03/02/2024 Mary Rosales Iron deficiency E61. 1 and Hypomagnesemia E83.42 [place] [address] [place] [address] 05/08/2024 Mary Rosales Benign essential hypertension I10 [place] [address] [place] [address] 02/04/2024 Mary Rosales Chronic fatigue R53. 82 ; Myalgia, multiple sites M79.18 ; Paresthesia R20.2 ; Hyperlipidemia E78.5 ; Benign essential hypertension I10 ; Mild anemia D64.9 ; Chronic diarrhea K52.9 and Nausea R11.0 Assessments Encounter Date Diagnosis (ICD Code) Assessment Notes Treatment Notes Treatment Clinical Notes Section Notes 05/08/2024 Benign essential hypertension (ICD-10 - I10) 03/02/2024 Iron deficiency (ICD-10 - E61.1) 03/02/2024 Hypomagnesemia (ICD-10 - E83.42) 02/04/2024 Chronic fatigue (ICD-10 - R53.82) Patient [...] sites (ICD-10 - M79.18) Please see above 02/04/2024 Paresthesia (ICD-10 - R20.2) Please see [...] Insured Coverage Start Date Coverage End Date [facility] [address] [place] [address] [phone] [id number] GIOVANNA STREETER Self - patient is the insured 4 [employer] [place] [address] [place] [address] [phone] [id number] GIOVANNA STREETER Self - patient is the insured 1 4 [facility] 22. [address] [place] [address] [phone] [id number] GIOVANNA STREETER Self - patient is the insured 1 3 [employer] [address] [place] [address] [id number] GIOVANNA STREETER Self - patient is the insured 1 3 [employer] [address] [address] [place] [address] [phone] [id number]ERCA Self - patient is the insured 0 3 [facility] MEDICAID CFC after [employer] [address] [place] [address] [id number] STACIE STREETERCA Self - patient is the insured 0 3 [employer] [place] [employer] [address] [place] [address] [id number] STACIE [address]RE[address]ERCA Self - patient is the insured 2 4 [employer] [place] [employer] [address] [address] [place] [address] [id number] GIOVANNA STREETER Self - patient is the insured 3 [employer] [facility] [address] [place] [address] [id number] GIOVANNA STREETER Self - patient is the insured 3 [employer] [place] [employer] [address] CLAIMS DEPT [place] [address] [id number] GIOVANNA STREETER Self - patient is the insured 3 [facility] [employer] [facility] [address] [place] [address] [id number] GIOVANNA STREETER Self - patient is the insured 3 Medical (General) History Medical History History ICD Code scoliosis torticollis at migraines Kidney Stone depression anxiety Surgical History Surgery Date(Month/Year) removal left SCM muscle to release torti doug infancy TUBUAL LIGATION 2006 lipotripsy Hospitalization History Reason Date(Month/Year) Depression/suicidal See surgical
--- NOTE | 2024-11-18 00:51 | ED.GENADUL1 ---
HPI HPI - General Adult General Chief complaint: Abdominal Pain Stated complaint: FLANK PAIN Time Seen by Provider: 11/18/24 00:42 Source: patient Mode of arrival: walk-in Limitations: no limitations History of Present Illness HPI narrative: 49-year-old female presents for left flank pain. This started about 3 hours ago while she was at work. There was no unusual activity or injury. She has had kidney stones before and it feels similar. No gross hematuria. The pain has been continuous and there is none on the right side. Related Data Home Medications ?Medication ?Instructions ?Recorded ?Confirmed lisinopril 40 mg tablet 40 mg PO DAILY 11/29/23 11/18/24 atorvastatin 20 mg tablet 20 mg PO DAILY 06/19/24 11/18/24 omeprazole 20 mg capsule,delayed 20 mg PO DAILY 11/18/24 11/18/24 release Previous Rx's ?Medication ?Instructions ?Recorded hydrocodone 5 mg-acetaminophen 325 1 tab PO Q6H PRN pain 5 days #20 11/18/24 mg tablet tabs ondansetron 4 mg disintegrating 4 mg PO Q6H PRN nausea and 11/18/24 tablet vomiting #20 tabs tamsulosin 0.4 mg capsule (Flomax) 0.4 mg PO DAILY #7 caps 11/18/24 Allergies Allergy/AdvReac Type Severity Reaction Status Date / Time codeine (From Allergy Mild Rash Verified 11/18/24 00:43 Tylenol-Codeine) morphine Allergy Mild rash Verified 11/18/24 00:43 Penicillins Allergy Mild Rash Verified 11/18/24 00:43 cefdinir Allergy Unknown Rash Verified 11/18/24 00:43 hydromorphone (From Dilaudid) AdvReac Severe Difficulty Verified 11/18/24 00:43 Breathing Opioid HPI Opioid Management Most Recent Opioid Data: Last Pain Scale 6 Today, 02:14 Last ED Pain Assessment Today, 01:00 Last MAR Pain Assessment Today, 01:00 Review of Systems ROS Narrative A ten point review of systems is negative except as noted above. PFSH PFSH Social History Smoking status: Never smoker Little interest or pleasure in doing things: not at all Feeling down, depressed, or hopeless: not at all Exam Narrative Exam Narrative: Nurses note and vital signs reviewed and patient is not hypoxic. General: The patient appears well and in no apparent distress. Skin: Warm, dry, no pallor noted. There is no rash noted. Head: Normocephalic, atraumatic Eye: Normal conjunctiva, no drainage Ears, Nose, Mouth, and Throat: oral mucosa is moist. Nares patent. Cardiovascular: Regular Rate and Rhythm Respiratory: Patient is in no distress, no accessory muscle use, lungs are clear to auscultation, no wheezing, rales or rhonchi Back: non-tender, no CVA tenderness bilaterally to percussion. GI: Soft and nontender Musculoskeletal: The patient has no evidence of calf tenderness, no pitting edema, symmetrical pulses noted bilaterally Neurological: A&O, normal speech Psychiatric: Cooperative Constitutional Vital Signs, click to edit/add: Last Vital Signs Temp 98.5 F 11/18/24 00:38 Pulse 98 H 11/18/24 00:38 Resp 18 11/18/24 00:38 BP 109/68 11/18/24 00:38 Pulse Ox 97 11/18/24 00:38 O2 Del Method Room Air 11/18/24 00:38 Course Vital Signs Vital signs: Vital Signs Temperature 98.5 F 11/18/24 00:38 Pulse Rate 98 H 11/18/24 00:38 Respiratory Rate 18 11/18/24 00:38 Blood Pressure 109/68 11/18/24 00:38 Pulse Oximetry 97 11/18/24 00:38 Oxygen Delivery Method Room Air 11/18/24 00:38 Temperature 98.5 F 11/18/24 00:38 Pulse Rate 98 H 11/18/24 00:38 Respiratory Rate 18 11/18/24 00:38 Blood Pressure 109/68 11/18/24 00:38 Pulse Oximetry 97 11/18/24 00:38 Oxygen Delivery Method Room Air 11/18/24 00:38 Medical Decision Making MDM Narrative Medical decision making narrative: 1 mm ureteral stone is identified per radiologist. She is able to be discharged home on Flomax and [place] and Zofran. She is taken [place] previously without any issues. She will follow-up with urology and was given a urine strainer and a specimen cup. Treatment diagnosis and follow-up were discussed with the patient. Differential Diagnosis Differential Diagnosis: Kidney stone, UTI, pyelonephritis, constipation, diverticulitis Lab Data Lab results reviewed: Yes I reviewed the patient's lab results Labs: Lab Results 11/18/24 11/18/24 Range/Units 00:47 00:55 WBC 10.2 (4.0-11.0) 10^3/uL RBC 4.56 (4.20-5.40) 10^6/uL Hgb 14.1 (12.0-16.0) g/dL Hct 40.4 (36.0-48.0) % MCV 88.6 (81.0-99.0) fL MCH 30.9 (26.7-34.0) pg MCHC 34.9 (29.9-35.2) g/dL RDW 13.2 (11.0-15.0) % Plt Count 411 (150-450) 10^3/uL MPV 9.9 (9.5-13.5) fL Neut % (Auto) 56.5 (43.0-75.0) % Lymph % (Auto) 32.8 (20.5-60.0) % [place] % (Auto) 7.0 (1.7-12.0) % Eos % (Auto) 3.1 (0.9-7.0) % Baso % (Auto) 0.4 (0.2-2.0) % Neut # (Auto) 5.8 (1.4-6.5) 10^3/uL Lymph # (Auto) 3.3 (1.2-3.8) 10^3/uL [place] # (Auto) 0.7 (0.3-0.8) 10^3/uL Eos # (Auto) 0.3 (0.0-0.7) 10^3/uL Baso # (Auto) 0.0 (0.0-0.1) 10^3/uL Abs Immat Gran (auto) 0.02 (0.00-0.03) 10^3/uL Imm/Tot Granulo (auto) 0.2 (0.0-0.5) % Sodium 139 (136-145) mmol/L Potassium 3.7 (3.5-5.1) mmol/L Chloride 104 (98-107) mmol/L Carbon Dioxide 28.6 (21.0-32.0) mmol/L Anion Gap 10.1 BUN 23.0 H (7.0-18.0) mg/dL Creatinine 1.02 (0.55-1.02) mg/dL Est GFR ( Amer) >60 (>=60 mL/min/1.73m^2) Est GFR (Non-Af Amer) 57 L (>=60 mL/min/1.73m^2) BUN/Creatinine Ratio 22.5 Glucose 130 H (74-106) mg/dL Calcium 9.5 (8.5-10.1) mg/dL Urine Color Yellow (YELLOW) Urine Clarity Clear (CLEAR) Urine pH 5.5 (5.0-9.0) Ur Specific [place] 1.025 (1.005-1.025) Urine Protein Negative (NEG/TRACE) mg/dL Urine Glucose (UA) Negative (NEGATIVE) mg/dL Urine Ketones Negative (NEGATIVE) mg/dL Urine Occult Blood Moderate A (NEGATIVE) Urine Nitrite Negative (NEGATIVE) Urine Bilirubin Negative (NEGATIVE) Urine Urobilinogen 1.0 (0.2-1.0) EU/dL Ur Leukocyte Esterase Negative (NEGATIVE) Urine RBC 0-2 (0-2) #/HPF Urine WBC None seen (NONE SEEN) #/HPF Ur Squamous Epith Cells Rare (NONE/RARE) #/LPF Urine Crystals None seen (None Seen) #/HPF Urine Bacteria None seen (NONE SEEN) #/HPF Urine Casts Seen A (NONE SEEN) #/LPF Hyaline Casts Few Urine Mucus Trace A (NONE SEEN) Ur Culture Indicated? No Imaging Data CT scan - abdomen: Radiologist's impression: Possible less than 1 mm calcification in the proximal left ureter, nonobstructive right nephrolithiasis, no bladder stone identified Discharge Plan Discharge Chief Complaint: Abdominal Pain Clinical Impression: Kidney stone Patient Disposition: Home, Self-Care Time of Disposition Decision: 02:44 Condition: Good Mode of Transportation: Private Vehicle Prescriptions / Home Meds: New hydrocodone-acetaminophen 5-325 mg tablet 1 tab PO Q6H PRN (Reason: pain) 5 Days Qty: 20 0RF tamsulosin [Flomax] 0.4 mg capsule 0.4 mg PO DAILY Qty: 7 0RF ondansetron 4 mg tablet,disintegrating 4 mg PO Q6H PRN (Reason: nausea and vomiting) Qty: 20 0RF No Action atorvastatin 20 mg tablet 20 mg PO DAILY lisinopril 40 mg tablet 40 mg PO DAILY omeprazole 20 mg capsule,delayed release(DR/EC) 20 mg PO DAILY Print Language: Citizen Of [place] Instructions: Kidney Stones (ED), How to Strain Your Urine (ED) Referrals: [facility] [Primary Care Provider] - 1 week Denver Still MD [Physician, Urology] - 1 week
[2024-11-18 01:00] LABS: Hematocrit 40.4 % (36.0-48.0); Hemoglobin 14.1 g/dL (12.0-16.0); Immature Granulocytes Abs Auto 0.02 10^3/uL (0.00-0.03); Immature Granulocytes Pct Auto 0.2 % (0.0-0.5); Lymphocytes Absolute Auto 3.3 10^3/uL (1.2-3.8); Mean Corpuscular HGB Conc 34.9 g/dL (29.9-35.2); Mean Corpuscular Hemoglobin 30.9 pg (26.7-34.0); Mean Corpuscular Volume 88.6 fL (81.0-99.0); Platelet Count 411 10^3/uL (150-450); Red Blood Count 4.56 10^6/uL (4.20-5.40); White Blood Count 10.2 10^3/uL (4.0-11.0)
[2024-11-18 01:00] LABS: Glucose Urine UA NEGATIVE (NEGATIVE)
[2024-11-18] MEDS: KETOROLAC TROMETHAMINE 30 MG/ML VIAL IVP (01:00)
[2024-11-18] MEDS: 0.9 % SODIUM CHLORIDE 1,000 ML 1000 ML IV (01:00)
[2024-11-18 01:07] LABS: Cast Seen? SEEN #/LPF (NONE SEEN); Crystals Seen? None Seen #/HPF (None Seen); Urine Culture Indicated NO
[2024-11-18 01:09] LABS: Anion Gap 10.1; Blood Urea Nitrogen 23.0 mg/dL (7.0-18.0); Calcium 9.5 mg/dL (8.5-10.1); Carbon Dioxide 28.6 mmol/L (21.0-32.0); Chloride 104 mmol/L (98-107); Estimated GFR (African America >60 (>=60 mL/min/1.73m^2); Estimated GFR (Non-African Ame 57 (>=60 mL/min/1.73m^2); Glucose 130 mg/dL (74-106); Potassium 3.7 mmol/L (3.5-5.1); Sodium 139 mmol/L (136-145)
== END 2024-11-18 02:58 | disposition home or self-care (01) ==
PROVIDERS: Emergency Provider Emergency Medicine
DX: N20.0 Calculus of kidney (principal); Z87.442 Personal history of urinary calculi; K57.30 Diverticulosis of large intestine without perforation or abscess without bleeding
CPT/HCPCS: 36415; 74176; 80048; 81001; 85025; 96374; 96375; 99284; J1885; J2405

== ENCOUNTER 2024-12-01 21:52 | Emergency (ER) | payer OTHER, SELFPAY ==
--- OUTSIDE RECORDS SUMMARY | 2023-11-13 11:15 | XMS_ITS ---
Author Organization [facility] Address [address] [place] [address] Care Team Providers Care Manager Environmental Health And Safety Name Role Phone Mary Rosales Primary Care Provider [phone] REASON FOR VISIT HIGH BP Encounters Encounter Location Date Provider Diagnosis [facility] [address] [place] [address] 11/13/2023 Mary Rosales Plan Of Treatment No Information Progress Notes * GIOVANNA STREETER ADOB: [birth year] (49 yo F)Acc No.[id number]:11/13/2023 PROGRESS NOTES Patient: SAQIB PIERREECLATOYA Stoll Account Number:[id number] Appointment Provider: Devin BIRCH DO :1975 A ge:48 Y S ex:Female Date:11/13/2023 Address:[address] [place], [place] [id number] Subjective: * Chief Complaints: * 1 . HIGH BP. * Medical History: Objective: * Vitals: Assessment: Plan: * Treatment: * Images: * Electronic signature of Nelson Rosales DO on 12/01/2024 at 10:01 PM EDT Sign off status: Pending * Appointment Provider: Devin BIRCH DO Date: 11/13/2023 Generated for Printi ng/Faxing/eTransmitting on: 12/01/2024 10:01 PM EDT
--- OUTSIDE RECORDS SUMMARY | 2023-11-26 11:15 | XMS_ITS ---
Author Organization [facility] Address [address] [place] [address] Care Team Providers Care Assisted Living Manager Name Role Phone Mary Rosales Primary Care Provider REASON FOR VISIT BP Encounters Encounter Location Date Provider Diagnosis [facility] [address] [place] [address] 11/26/2023 Mary Rosales Plan Of Treatment No Information Progress Notes * GIOVANNA STREETER ADOB: [birth year] (49 yo F)Acc No.[id number]:11/26/2023 Progress Notes Patient: SAQIB PIERREECLATOYA Stoll Account Number:[id number] Appointment Provider: Devin BIRCH DO :1975 A ge:48 Y S ex:Female Date:11/26/2023 Address:[address] [place], [place] [id number] Subjective: * Chief Complaints: * 1 . BP. * Medical History: Objective: * Vitals: Assessment: Plan: * Treatment: * Images: * Electronic signature of Nelson Rosales DO on 12/01/2024 at 10:02 PM EDT Sign off status: Pending * Appointment Provider: Devin BIRCH DO Date: 11/26/2023 Generated for Printi ng/Faramonag/eTransmitting on: 0 12/01/2024 10:02 PM EDT
--- OUTSIDE RECORDS SUMMARY | 2024-03-10 10:00 | XMS_ITS ---
Author Organization [facility] Address [address] [place] [address] Care Team Providers Care Instrumentation And Controls Designer Name Role Phone Mary Rosales Primary Care Provider REASON FOR VISIT DISCUSS LABS Encounters Encounter Location Date Provider Diagnosis [facility] [address] [place] [address] 03/10/2024 Mary Rosales Plan Of Treatment No Information Progress Notes * GIOVANNA STREETER ADOB: [birth year] (49 yo F)Acc No.[id number]:03/10/2024 Progress Notes Patient: GIOVANNA PIERRE Account Number:[id number] Appointment Provider: Devin BIRCH DO :1975 A ge:48 Y S ex:Female Date:03/10/2024 Address:[address] [place], [place] [id number] Subjective: * Chief Complaints: * 1 . DISCUSS LABS. * Medical History: Objective: * Vitals: Assessment: Plan: * Treatment: * Images: * Electronic signature of Nelson Rosales DO on 12/01/2024 at 10:02 PM EDT Sign off status: Pending * Appointment Provider: Devin BIRCH DO Date: 1 05/11/2023 Generated for Printi ng/Faxing/eTransmitting on: 0 12/01/2024 10:02 PM EDT
[2024-12-01] VITALS (8 sets, daily range): BP systolic 122–130; BP diastolic 82–97; PULSE 86–104; TEMP 36.8; O2SAT 98; BMI 33.7
--- OUTSIDE RECORDS SUMMARY | 2024-12-01 22:02 | XMS_ITS | Patient Health Record ---
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 Performed at: [address] [id number] Managing Director: Main Miranda PhD, Phone: [phone] Vitamin B1 (Thiamine) Blood Reviewed date:03/05/2024 11:58:21 AM Interpretation:Normal Performing Lab:, [facility], [facility] [address], [facility] Notes/Report: Reason for Exam Chronic fatigue;Myalgia, multiple sites;Paresthesia;Mild ane Vitamin B1 (Thiamine) Blood 132.0 66.5-200.0 This test was developed and its performance characteristics determined by [employer]. It has not been cleared or approved by the Food and Drug Administration. Performed at: [address] [id number] Managing Director: Norman Lind MD, Phone: [phone] Rheumatoid Factor Reviewed date:03/03/2024 06:27:10 PM Interpretation:Normal Performing Lab: Notes/Report: Reason for Exam Chronic diarrhea Reason for Exam Chronic fatigue;Myalgia, multiple sites;Paresthesia;Mild ane Rheumatoid Factor <10.0 <14.0 [IU]/mL Performed at: [address] [id number] Managing Director: Main Miranda PhD, Phone: [phone] Celiac Reviewed date:03/03/2024 06:26:37 PM Interpretation: Performing Lab:, [facility], [address] [place] [address] [place] [facility] Notes/Report: Reason for Exam Chronic diarrhea Reason [...] Qn, Serum 132 87-352 mg/dL Performed at: [address] [id number] Managing Director: Main Miranda PhD, Phone: [phone] Cyclic Citrulliated Pep Ab Reviewed date:03/03/2024 06:26:53 PM Interpretation:Negative Performing Lab: Notes/Report: Reason for Exam Chronic diarrhea Reason for Exam Chronic fatigue;Myalgia, multiple sites;Paresthesia;Mild ane Cyclic Citrulliated Pep Ab 7 0-19 Negative <20 Weak positive 20 - 39 Moderate positive 40 - 59 Strong positive >59 Performed at: [address] [id number] Managing Director: Main Miranda PhD, Phone: [phone] Anti-dsDNA(DBL)Ab Reviewed date:03/03/2024 06:26:59 PM Interpretation:Negative Performing [...] Reviewed date:03/02/2024 01:04:50 PM Interpretation: Performing Lab:, [facility], [address], [place] Notes/Report: Reason for Exam Benign essential hypertension [...] Reviewed date:03/02/2024 01:04:04 PM Interpretation: Performing Lab:, [facility], [address] , [place] Notes/Report: Reason for Exam Benign [...] GFR >60.0 Anion Gap 13.6 6.0-15.0 meq/L [place]STLEY with Reflex Reviewed date:03/03/2024 06:26:25 PM Interpretation:Negative Performing Lab: Notes/Report: Reason for Exam Chronic diarrhea Reason for Exam Chronic fatigue;Myalgia, multiple sites;Paresthesia;Mild ane [place] with Reflex Negative Negative Performed at: [address] [id number] Managing Director: Main Miranda PhD, Phone: [phone] Reason For Referral No Information Medications Medication [...] 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 Stress is when someone feels tense, nervous, anxious, or cant sleep at night because their mind is troubled Somewhat In the past year have you sp ent more than 2 nights in a row in a prison, senior care, residential center, or juvenile correctional facility? No Are [...] Status W/U Status Risk Notes Problem Hypomagnesemia (062444248) Hypomagnesemia (E83.42) Active confirmed Problem Essential hypertension (64124993) Essential (primary) hypertension (I10) Active confirmed Problem Chronic sinusitis (49053624) Chronic sinusitis, unspecified (J32.9) Active confirmed Problem Dysuria (03212560) Dysuria (R30.0) Active confi rmed Problem Excessive thirst (63568803) Polydipsia (R63.1) Active confirmed Problem Hyperlipidemia (51377339) Hyperlipidemia (E78.5) Active confirmed Problem Dysmenorrhea (295206069) Dysmenorrhea (N94.6) Active confirmed Problem Vitamin D deficiency (73209541) Vitamin D deficiency (E55.9) Active confirmed Problem Anxiety (04210178) Anxiety (F41.9) Active confi rmed Problem Amenorrhea (35122105) Amenorrhea (N91.2) Active confirmed Problem Abdominal pain (23628535) Abdominal pain (R10.9) Active confirmed Problem Environmental allergy (931211304) Environmental allergies (Z91.09) Active confirmed Problem Anxiety state (597443757) Acute anxiety (F41.9) Active confirmed Problem Paresthesia of both hands (538039147) Paresthesia of both hands (R20.2) Active confirmed Problem Iron deficiency anemia (30802366) Other iron deficiency anemia (D50.8) Active confirmed Problem Thoracic back pain (033159742) Upper back pain (M54.9) Active confirmed Problem Fatigue (66577993) Fatigue, unspecified type (R53.83) Active confirmed Problem Chronic fatigue syndrome (84422452) Chronic fatigue (R53.82) Active confirmed Problem Abnormal uterine bleeding (76703885862358) Abnormal uterine bleeding (N93.9) Active confirmed Problem Tension headache (198610955) Tension headache (G44.209) Active confirmed Problem Menopausal flushing (604276080) Hot flash, menopausal (N95.1) Active confirmed Problem Benign essential hypertension (9944884) Benign essential hypertension (I10) Active confirmed Problem Iron deficiency anemia due to chronic blood loss (027891603) Iron deficiency anemia due to chronic blood loss (D50.0) Active confirmed Problem Disorder of female genital organs (359031001) Cervical motion tenderness (N94.9) Active confirmed Problem Anemia (693747278) Mild anemia (D64.9) Active confirmed Problem Status migrainosus (570785019) Status migrainosus (G43.901) Active confirmed Problem Current smoker (01964273) Current smoker (F17.200) Active confirmed Problem Pain in tooth (38291923) Pain in tooth (K08.89) Active confirmed Problem Migraine (84771255) Headache, mi graine (G43.909) Active confirmed Problem Seasonal allergic rhinitis (182372175) Seasonal allergic rhinitis, unspecified trigger (J30.2) Active confirmed Problem Gastroesophageal reflux disease (093093059) Gastroesophageal reflux disease, unspecified whether esophagitis present (K21.9) Active confirmed Problem Mild recurrent major depression (25367136) Depression, major, recurrent, mild (F33.0) Active confirmed Vital Signs Heart Rate 82 /min 02/04/2024 Temperature 97.2 degrees Fahrenheit 02/04/2024 Respiratory Rate 20 /min 02/04/2024 Blood pressure diastolic 83 mm Hg 02/04/2024 Oximetry 96 % 02/04/2024 Height 63.75 in 02/04/2024 Blood pressure systolic 127 mm Hg 02/04/2024 Weight 194.0 lbs 02/04/2024 BMI 33.56 kg/m2 02/04/2024 Encounters Encounter Location Date Provider Diagnosis [facility] [address] [place] [address] 12/03/2023 [place] [address] [place] [address] 12/16/2023 [place] [address] [place] [address] 01/07/2024 [place] [address] [place] [address] 01/31/2024 [place] [address] [place] [address] 03/02/2024 Mary huynhIaroger Iron deficiency E61. 1 and Hypomagnesemia E83.42 [place] [address] [place] [address] 05/08/2024 Mary linoIaroger Benign essential hypertension I10 [place] [address] [place] [address] 02/04/2024 Mary Rosales Chronic fatigue R53. 82 [...] sites (ICD-10 - M79.18) Please see above 03/02/2024 Iron deficiency (ICD-10 - E61.1) 03/02/2024 Hypomagnesemia (ICD-10 - E83.42) 05/08/2024 Benign essential hypertension (ICD-10 - I10) 02/04/2024 Paresthesia (ICD-10 - R20.2) Please see [...] Insured Coverage Start Date Coverage End Date [facility] [address] [place] [address] [id number] Self - patient is the insured 4 [employer] [place] [address] [place] [address] [id number] Self - patient is the insured 1 4 [facility] ed 22. [address] [place] [address] [id number]ER Self - patient is the insured 1 3 zMEDICAID [employer] after [place] med 22 [address] [place] [address] [id number]IE [address]ERCA Self - patient is the insured 1 3 z[employer]ENTAL [place] med 22 [address] [address] [place] [phone] [id number] Self - patient is the insured 0 3 [facility] after [place] med 22 [address] [place] [address] [id number] STACIE [address]ERCA Self - patient is the insured 0 3 [place] Medicaid [address] [place] [address] [id number]RE[address]ER Self - patient is the insured 2 4 [facility] [place] [employer] [address] [address] [place] [address] [id number]ER[address] Self - patient is the insured 3 [employer] [facility] [place] [address] [place] [address] [id number] [address]RE[address]ER Self - patient is the insured 3 [facility] [place] Medicaid [address] [place] [address] [id number] Self - patient is the insured 3 [employer] [facility] [address] [place] [address] [id number] [address]RE[address]ER Self - patient is the insured 3 Medical (General) History Medical History History ICD Code scoliosis torticollis at migraines Kidney Stone depression anxiety Surgical History Surgery Date(Month/Year) removal left SCM muscle to release torti doug infancy TUBUAL LIGATION 2006 lipotripsy Hospitalization History Reason Date(Month/Year) Depression/suicidal See surgical
--- NOTE | 2024-12-01 22:28 | PC.NURSE ---
Pt has c/o CP that she states is severe . 12 lead done.
--- NOTE | 2024-12-01 22:30 | ECG_ITS ---
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
--- NOTE | 2024-12-01 22:42 | ED.GENADUL1 ---
HPI HPI - General Adult General Chief complaint: Urogenital-Female Stated complaint: CHEST PAIN Time Seen by Provider: 12/01/24 22:20 Source: patient Mode of arrival: ambulance History of Present Illness HPI narrative: cc - right flank and right abd pain Pt stated that the pain began yesterday and worsened tonight. She has nausea but no vomiting. No blood in urine or stool. Pain goes from right flank and radiates to right mid abdomen. She was evaluated in our ED 11/18/[address] scan revealing 2mm right renal stone and 1mm left ureteral stone and was discharged home with prescriptions for norco and flomax. She has not contacted her urologist to be seen and evaluated. Related Data Home Medications ?Medication ?Instructions ?Recorded ?Confirmed lisinopril 40 mg tablet 40 mg PO DAILY 11/29/23 12/01/24 atorvastatin 20 mg tablet 20 mg PO DAILY 06/19/24 12/01/24 omeprazole 20 mg capsule,delayed 20 mg PO DAILY 11/18/24 12/01/24 release Previous Rx's ?Medication ?Instructions ?Recorded ondansetron 4 mg disintegrating 4 mg PO Q6H PRN nausea and 11/18/24 tablet vomiting #20 tabs nitrofurantoin 100 mg PO BID 7 days #14 caps 12/01/24 monohydrate/macrocrystals 100 mg capsule (Macrobid) ondansetron 4 mg disintegrating 4 mg PO Q6H PRN nausea and 12/01/24 tablet vomiting #20 tabs tamsulosin 0.4 mg capsule (Flomax) 0.4 mg PO DAILY #20 caps 12/01/24 Allergies Allergy/AdvReac Type Severity Reaction Status Date / Time codeine (From Allergy Mild Rash Verified 11/18/24 00:43 Tylenol-Codeine) morphine Allergy Mild rash Verified 11/18/24 00:43 Penicillins Allergy Mild Rash Verified 11/18/24 00:43 cefdinir Allergy Unknown Rash Verified 11/18/24 00:43 Opioid HPI Opioid Management Most Recent Opioid Data: Last Pain Scale 10 Today, 22:57 Last MAR Pain Assessment Today, 22:57 PFSH PFS Social History Smoking status: Never smoker Little interest or pleasure in doing things: not at all Feeling down, depressed, or hopeless: not at all Exam Narrative Exam Narrative: Nurses notes and vital signs reviewed and patient is not hypoxic. afebrile General: Uncomfortable. Skin: Warm, dry, no pallor noted. No rash to right flank or right abdomen. Eye: Pupils are equal, round and EOMI. No scleral icterus. Ears, Nose, Mouth, and Throat: Oral mucosa is moist Cardiovascular: Tachycardia. Respiratory: No accessory muscle use or respiratory distress. Lungs are clear to auscultation, no wheezing, rales or rhonchi Back: Right CVA tenderness Musculoskeletal: normal ROM GI: Abdomen is soft, non-distended. Normal bowel sounds. No masses appreciated. Diffuse mid right abdominal tenderness to palpation. No rebound, guarding, or rigidity noted. Neurological: A&O x4. No cranial nerve dysfunction observed. No truncal ataxia. Moves all extremities. Sensation intact. Psychiatric: Cooperative and interactive. Normal mood and affect. Constitutional Vital Signs, click to edit/add: Last Vital Signs Temp 98.3 F 12/01/24 22:13 Pulse 87 12/01/24 22:57 Resp 22 H 12/01/24 22:57 BP 122/91 12/01/24 23:00 Pulse Ox 98 12/01/24 22:13 O2 Del Method Room Air 12/01/24 22:13 Course Vital Signs Vital signs: Vital Signs Temperature 98.3 F 12/01/24 22:13 Pulse Rate 104 H 12/01/24 22:13 Respiratory Rate 22 H 12/01/24 22:13 Blood Pressure 129/97 H 12/01/24 22:13 Pulse Oximetry 98 12/01/24 22:13 Oxygen Delivery Method Room Air 12/01/24 22:13 Temperature 98.3 F 12/01/24 22:13 Pulse Rate 87 12/01/24 22:57 Respiratory Rate 22 H 12/01/24 22:57 Blood Pressure 122/91 12/01/24 23:00 Pulse Oximetry 98 12/01/24 22:13 Oxygen Delivery Method Room Air 12/01/24 22:13 Medical Decision Making MDM Narrative Medical decision making narrative: Patient with history of kidney stones and recent CT scan about 2 weeks ago showing 1 mm left ureteral stone and 2 mm right renal stone now presents with severe right flank and abdominal pain that began yesterday and acutely worsened this afternoon into this evening. Peripheral IV was ordered to be established blood drawn and sent for testing. Urine was also obtained and sent for testing. She just had a CT scan 2 weeks ago so I did not repeat imaging as it previously identified a 2 mm stone on this right side that was in the kidney and is now likely started to migrate out of the kidney. She was given IV Zofran for nausea and IV Toradol for pain while we awaited the results of her lab testing. Urinalysis shows some sign of early infection with ketones, bacteria and blood -she was started on Macrobid in the ED -this was chosen due to her allergies. She felt better after receiving IV Toradol. She declined the offer for IV Dilaudid. She was discharged home with prescription for additional Toradol, Levsin and additional Macrobid. She was also given referral information for the local urology group. Lab Data Lab results reviewed: Yes I reviewed the patient's lab results Labs: Lab Results 12/01/24 12/01/24 Range/Units 22:35 22:48 WBC 8.8 (4.0-11.0) 10^3/uL RBC 4.52 (4.20-5.40) 10^6/uL Hgb 13.9 (12.0-16.0) g/dL Hct 40.2 (36.0-48.0) % MCV 88.9 (81.0-99.0) fL MCH 30.8 (26.7-34.0) pg MCHC 34.6 (29.9-35.2) g/dL RDW 12.9 (11.0-15.0) % Plt Count 372 (150-450) 10^3/uL MPV 9.7 (9.5-13.5) fL Neut % (Auto) 63.6 (43.0-75.0) % Lymph % (Auto) 27.2 (20.5-60.0) % [place] % (Auto) 6.4 (1.7-12.0) % Eos % (Auto) 2.3 (0.9-7.0) % Baso % (Auto) 0.3 (0.2-2.0) % Neut # (Auto) 5.6 (1.4-6.5) 10^3/uL Lymph # (Auto) 2.4 (1.2-3.8) 10^3/uL [place] # (Auto) 0.6 (0.3-0.8) 10^3/uL Eos # (Auto) 0.2 (0.0-0.7) 10^3/uL Baso # (Auto) 0.0 (0.0-0.1) 10^3/uL Abs Immat Gran (auto) 0.02 (0.00-0.03) 10^3/uL Imm/Tot Granulo (auto) 0.2 (0.0-0.5) % Sodium 144 (136-145) mmol/L Potassium 3.6 (3.5-5.1) mmol/L Chloride 107 (98-107) mmol/L Carbon Dioxide 25.5 (21.0-32.0) mmol/L Anion Gap 15.1 BUN 11.0 (7.0-18.0) mg/dL Creatinine 0.75 (0.55-1.02) mg/dL Est GFR ( Amer) >60 (>=60 mL/min/1.73m^2) Est GFR (Non-Af Amer) >60 (>=60 mL/min/1.73m^2) BUN/Creatinine Ratio 14.7 Glucose 103 (74-106) mg/dL Calcium 9.3 (8.5-10.1) mg/dL Total Bilirubin 0.3 (0.2-1.0) mg/dL AST 19 (15-37) U/L ALT 36 (14-59) U/L Alkaline Phosphatase 105 (46-116) U/L Total Protein 8.1 (6.4-8.2) g/dL Albumin 4.0 (3.4-5.0) g/dL Globulin 4.1 g/dL Albumin/Globulin Ratio 1.0 Urine Color Yellow (YELLOW) Urine Clarity Clear (CLEAR) Urine pH 5.5 (5.0-9.0) Ur Specific [place] 1.025 (1.005-1.025) Urine Protein Negative (NEG/TRACE) mg/dL Urine Glucose (UA) Negative (NEGATIVE) mg/dL Urine Ketones Trace A (NEGATIVE) mg/dL Urine Occult Blood Large A (NEGATIVE) Urine Nitrite Negative (NEGATIVE) Urine Bilirubin Negative (NEGATIVE) Urine Urobilinogen 0.2 (0.2-1.0) EU/dL Ur Leukocyte Esterase Negative (NEGATIVE) Urine RBC 2-5 A (0-2) #/HPF Urine WBC 0-2 A (NONE SEEN) #/HPF Ur Squamous Epith Cells Few A (NONE/RARE) #/LPF Urine Crystals None seen (None Seen) #/HPF Urine Bacteria Small A (NONE SEEN) #/HPF Urine Casts None seen (NONE SEEN) #/LPF Urine Mucus Trace A (NONE SEEN) Ur Culture Indicated? Yes-[facility] [place] Discharge Plan Discharge Chief Complaint: Urogenital-Female Clinical Impression: Kidney stone, Urinary tract infection Patient Disposition: Home, Self-Care Time of Disposition Decision: 23:42 Prescriptions / Home Meds: New tamsulosin [Flomax] 0.4 mg capsule 0.4 mg PO DAILY Qty: 20 0RF ondansetron 4 mg tablet,disintegrating 4 mg PO Q6H PRN (Reason: nausea and vomiting) Qty: 20 0RF nitrofurantoin monohyd/m-cryst [Macrobid] 100 mg capsule 100 mg PO BID 7 Days Qty: 14 0RF Rx Instructions: must administer with a meal/food No Action atorvastatin 20 mg tablet 20 mg PO DAILY lisinopril 40 mg tablet 40 mg PO DAILY omeprazole 20 mg capsule,delayed release(DR/EC) 20 mg PO DAILY ondansetron 4 mg tablet,disintegrating 4 mg PO Q6H PRN (Reason: nausea and vomiting) Qty: 20 0RF Print Language: Bengali Instructions: Kidney Stones (ED), Urinary Tract Infection in Women (ED) Referrals: Kathryn Cuellar MD [Physician, Urology] - As soon as possible
[2024-12-01 22:54] LABS: Hematocrit 40.2 % (36.0-48.0); Hemoglobin 13.9 g/dL (12.0-16.0); Immature Granulocytes Abs Auto 0.02 10^3/uL (0.00-0.03); Immature Granulocytes Pct Auto 0.2 % (0.0-0.5); Lymphocytes Absolute Auto 2.4 10^3/uL (1.2-3.8); Mean Corpuscular HGB Conc 34.6 g/dL (29.9-35.2); Mean Corpuscular Hemoglobin 30.8 pg (26.7-34.0); Mean Corpuscular Volume 88.9 fL (81.0-99.0); Platelet Count 372 10^3/uL (150-450); Red Blood Count 4.52 10^6/uL (4.20-5.40); White Blood Count 8.8 10^3/uL (4.0-11.0)
[2024-12-01 22:55] LABS: Glucose Urine UA NEGATIVE (NEGATIVE)
[2024-12-01] MEDS: 0.9 % SODIUM CHLORIDE 1,000 ML 999 ML IV (22:57)
[2024-12-01] MEDS: KETOROLAC TROMETHAMINE 30 MG/ML VIAL IVP (22:57)
[2024-12-01 23:02] LABS: Cast Seen? NONE SEEN #/LPF (NONE SEEN); Crystals Seen? None Seen #/HPF (None Seen); Urine Culture Indicated YES-FRMC
[2024-12-01 23:09] LABS: Alanine Aminotransferase 36 U/L (14-59); Albumin Globulin Ratio 1.0; Albumin Level 4.0 g/dL (3.4-5.0); Alkaline Phosphatase 105 U/L (46-116); Anion Gap 15.1; Aspartate Amino Transferase 19 U/L (15-37); Blood Urea Nitrogen 11.0 mg/dL (7.0-18.0); Calcium 9.3 mg/dL (8.5-10.1); Carbon Dioxide 25.5 mmol/L (21.0-32.0); Chloride 107 mmol/L (98-107); Estimated GFR (African America >60 (>=60 mL/min/1.73m^2); Estimated GFR (Non-African Ame >60 (>=60 mL/min/1.73m^2); Globulin 4.1 g/dL; Glucose 103 mg/dL (74-106); Potassium 3.6 mmol/L (3.5-5.1); Sodium 144 mmol/L (136-145); Total Protein 8.1 g/dL (6.4-8.2)
[2024-12-01] MEDS: NITROFURANTOIN MONOHYD/MAC-CRST 100 MG CAPSULE PO (23:48)
== END 2024-12-02 00:08 | disposition home or self-care (01) ==
PROVIDERS: Emergency Provider Emergency Medicine
DX: N39.0 Urinary tract infection, site not specified (principal); N20.0 Calculus of kidney; Z87.442 Personal history of urinary calculi
CPT/HCPCS: 36415; 80053; 81001; 85025; 87086; 87088; 93005; 96374; 96375; 99285; J1885; J2405

== ENCOUNTER 2024-12-12 00:55 | Emergency (ER) | payer OTHER, SELFPAY ==
[2024-12-12 00:59] VITALS: BP 143/86; PULSE 86; TEMP 37.3; O2SAT 98; BMI 33.7
--- NOTE | 2024-12-12 01:09 | ED_ITS ---
HPI HPI - General Adult General Chief complaint: Upper Respiratory Infection Stated complaint: sore throat, congestion Time Seen by Provider: 12/12/24 01:03 Source: patient Mode of arrival: walk-in Limitations: no limitations History of Present Illness HPI narrative: states several co workers are ill. Patient sick for 2 days with recurrent diarrhea, abdominal pain, headache and body aches as well as sore throat. Not short of breath. Diarrhea not bloody Related Data Home Medications ?Medication ?Instructions ?Recorded ?Confirmed lisinopril 40 mg tablet 40 mg PO DAILY 11/29/2305/26 atorvastatin 20 mg tablet 20 mg PO DAILY 06/19/2405/26 omeprazole 20 mg capsule,delayed 20 mg PO DAILY 12/01/24 release Previous Rx's ?Medication ?Instructions ?Recorded ondansetron 4 mg disintegrating 4 mg PO Q6H PRN nausea and 11/18/24 tablet vomiting #20 tabs nitrofurantoin 100 mg PO BID 7 days #14 cap s 12/01/24 monohydrate/macrocrystals 100 mg capsule (Macrobid) ondansetron 4 mg disintegrating 4 mg PO Q6H PRN nausea and 12/01/24 tablet vomiting #20 tabs tamsulosin 0.4 mg capsule (Flomax) 0.4 mg PO DAILY #20 caps 12/01/24 Allergies Allergy/AdvReac Type Severity Reaction Status Date / Time codeine (From Allergy Mild Rash Verified 11/18/24 00:43 Tylenol-Codeine) morphine Allergy Mild rash Verified 11/18/24 00:43 Penicillins Allergy Mild Rash Verified 11/18/24 00:43 cefdinir Allergy Unknown Rash Verified 11/18/24 00:43 Opioid HPI Opioid Management Most Recent Opioid Data: Last Pain Scale 10 12/01/24, 22:57 Review of Systems ROS Status of ROS 10 or more systems reviewed and unremark able except as noted in history and below PFSH PFSH Social History Smoking status: Never smoker Little interest or pleasure in doing things: not at all Feeling down, depressed, or hopeless: not at all Exam Constitutional Vital Signs, click to edit/add: Last Vital Signs Temp 99.1 F 12/12/24 00:59 Pulse 86 12/12/24 00:59 Resp 16 12/12/24 00:59 BP 143/86 H 12/12/24 00:59 Pulse Ox 98 12/12/24 01:35 O2 Del Method Room Air 12/12/24 01:35 Common normals: no apparent distress, average body habitus, oriented x3, no limitations, healthy appearing, alert and well nourished [facility] Common normals: normocephalic and head/scalp atraumatic Respiratory Common normals: normal respiratory effort, no retractions, no use of accessory muscles and clear to auscultation bilaterally Cardio Common normals: regular rate, regular rhythm, S1 normal heart sound and S2 normal heart sound GI Common normals: Normal to inspection, nondistended, normoactive bowel sounds present and soft to palpation Other: mild gen. nonspecific tenderness Extremity Common normals: normal to inspection and full ROM Neuro Common normals: oriented x3, CN's II-XII intact bilaterally, moves all extremities and no focal motor deficits Psych Appearance: grossly normal Course Vital Signs Vital signs: Vital Signs Temperature 99.1 F 12/12/24 00:59 Pulse Rate 86 12/12/24 00:59 Respiratory Rate 16 12/12/24 00:59 Blood Pressure 143/86 H 12/12/24 00:59 Pulse Oximetry 98 12/12/24 00:59 Oxygen Delivery Method Room Air 12/12/24 00:59 Temperature 99.1 F 12/12/24 00:59 Pulse Rate 86 12/12/24 00:59 Respiratory Rate 16 12/12/24 00:59 Blood Pressure 143/86 H 12/12/24 00:59 Pulse Oximetry 98 12/12/24 01:35 Oxygen Delivery Method Room Air 12/12/24 01:35 Medical Decision Making [facility] Narrative Medical decision making narrative: patient presents with nonbloody diarrhea, sore throat, headache, body aches . workup neg including strep screen, covid and influenza screen. WBC normal . BMP WNL and neg UA. Patient advised of working diagnosis as viral syndrome and discharged home Lab Data Labs: Lab Results 12/12/24 12/12/24 Range/Units 01:20 01:25 WBC 9.9 (4.0-11.0) 10^3/uL RBC 4.50 (4.20-5.40) 10^6/uL Hgb 13.7 (12.0-16.0) g/dL Hct 39.7 (36.0-48.0) % MCV 88.2 (81.0-99.0) fL MCH 30.4 (26.7-34.0) pg MCHC 34.5 (29.9-35.2) g/dL RDW 13.0 (11.0-15.0) % Plt Count 314 (150-450) 10^3/uL MPV 10.6 (9.5-13.5) fL Neut % (Auto) 61.3 (43.0-75.0) % Lymph % (Auto) 28.8 (20.5-60.0) % [place] % (Auto) 6.2 (1.7-12.0) % Eos % (Auto) 2.8 (0.9-7.0) % Baso % (Auto) 0.5 (0.2-2.0) % Neut # (Auto) 6.1 (1.4-6.5) 10^3/uL Lymph # (Auto) 2.9 (1.2-3.8) 10^3/uL [place] # (Auto) 0.6 (0.3-0.8) 10^3/uL Eos # (Auto) 0.3 (0.0-0.7) 10^3/uL Baso # (Auto) 0.1 (0.0-0.1) 10^3/uL Abs Immat Gran (auto) 0.04 H (0.00-0.03) 10^3/uL Imm/Tot Granulo (auto) 0.4 (0.0-0.5) % Sodium 141 (136-145) mmol/L Potassium 3.9 (3.5-5.1) mmol/L Chloride 104 (98-107) mmol/L Carbon Dioxide 24.4 (21.0-32.0) mmol/L Anion Gap 16.5 BUN 13.0 (7.0-18.0) mg/dL Creatinine 0.78 (0.55-1.02) mg/dL Est GFR ( Amer) >60 (>=60 mL/min/1.73m^2) Est GFR (Non-Af Amer) >60 (>=60 mL/min/1.73m^2) BUN/Creatinine Ratio 16.7 Glucose 108 H (74-106) mg/dL Lactate 1.4 (0.4-2.0) mmol/L Calcium 9.5 (8.5-10.1) mg/dL Total Bilirubin 0.3 (0.2-1.0) mg/dL AST 24 (15-37) U/L ALT 31 (14-59) U/L Alkaline Phosphatase 106 (46-116) U/L Total Protein 8.0 (6.4-8.2) g/dL Albumin 4.0 (3.4-5.0) g/dL Globulin 4.0 g/dL Albumin/Globulin Ratio 1.0 Urine Color Lt. yellow (YELLOW) Urine Clarity Clear (CLEAR) Urine pH 5.5 (5.0-9.0) Ur Specific [place] 1.025 (1.005-1.025) Urine Protein Negative (NEG/TRACE) mg/dL Urine Glucose (UA) Negative (NEGATIVE) mg/dL Urine Ketones Negative (NEGATIVE) mg/dL Urine Occult Blood Moderate A (NEGATIVE) Urine Nitrite Negative (NEGATIVE) Urine Bilirubin Negative (NEGATIVE) Urine Urobilinogen 0.2 (0.2-1.0) EU/dL Ur Leukocyte Esterase Negative (NEGATIVE) Urine RBC 0-2 (0-2) #/HPF Urine WBC 0-2 A (NONE SEEN) #/HPF Ur Squamous Epith Cells Few A (NONE/RARE) #/LPF Urine Crystals None seen (None Seen) #/HPF Urine Bacteria Trace A (NONE SEEN) #/HPF Urine Casts Seen A (NONE SEEN) #/LPF Hyaline Casts Few Urine Mucus None seen (NONE SEEN) Ur Culture Indicated? No Influenza Type A Ag Negative Influenza Type B Ag Negative SARS-CoV-2 Ag (CV2AG) Negative (NEGATIVE) Streptococcus Screen Negative Discharge Plan Discharge Chief Complaint: Upper Respiratory Infection Clinical Impression: Acute viral syndrome Patient Disposition: Home, Self-Care Prescriptions / Home Meds: No Action atorvastatin 20 mg tablet 20 mg PO DAILY tamsulosin [Flomax] 0.4 mg capsule 0.4 mg PO DAILY Qty: 20 0RF ondansetron 4 mg tablet,disintegrating 4 mg PO Q6H PRN (Reason: nausea and vomiting) Qty: 20 0RF nitrofurantoin monohyd/m-cryst [Macrobid] 100 mg capsule 100 mg PO BID 7 Days Qty: 14 0RF Rx Instructions: must administer with a meal/food lisinopril 40 mg tablet 40 mg PO DAILY omeprazole 20 mg capsule,delayed release(DR/EC) 20 mg PO DAILY ondansetron 4 mg tablet,disintegrating 4 mg PO Q6H PRN (Reason: nausea and vomiting) Qty: 20 0RF Print Language: Telugu Referrals: [facility] [Primary Care Provider] - 1 week Discharge Date/Time: 12/12/24 04:00
[2024-12-12 01:33] LABS: Glucose Urine UA NEGATIVE (NEGATIVE)
[2024-12-12 01:35] VITALS: O2SAT 98
[2024-12-12 01:41] LABS: Hematocrit 39.7 % (36.0-48.0); Hemoglobin 13.7 g/dL (12.0-16.0); Immature Granulocytes Abs Auto 0.04 10^3/uL (0.00-0.03); Immature Granulocytes Pct Auto 0.4 % (0.0-0.5); Lymphocytes Absolute Auto 2.9 10^3/uL (1.2-3.8); Mean Corpuscular HGB Conc 34.5 g/dL (29.9-35.2); Mean Corpuscular Hemoglobin 30.4 pg (26.7-34.0); Mean Corpuscular Volume 88.2 fL (81.0-99.0); Platelet Count 314 10^3/uL (150-450); Red Blood Count 4.50 10^6/uL (4.20-5.40); White Blood Count 9.9 10^3/uL (4.0-11.0)
[2024-12-12 01:43] LABS: Cast Seen? SEEN #/LPF (NONE SEEN); Crystals Seen? None Seen #/HPF (None Seen)
[2024-12-12 01:44] LABS: Urine Culture Indicated NO
[2024-12-12 01:45] LABS: SARS-CoV-2 Ag NEGATIVE (NEGATIVE)
[2024-12-12 01:48] LABS: Alanine Aminotransferase 31 U/L (14-59); Albumin Globulin Ratio 1.0; Albumin Level 4.0 g/dL (3.4-5.0); Alkaline Phosphatase 106 U/L (46-116); Anion Gap 16.5; Aspartate Amino Transferase 24 U/L (15-37); Blood Urea Nitrogen 13.0 mg/dL (7.0-18.0); Calcium 9.5 mg/dL (8.5-10.1); Carbon Dioxide 24.4 mmol/L (21.0-32.0); Chloride 104 mmol/L (98-107); Estimated GFR (African America >60 (>=60 mL/min/1.73m^2); Estimated GFR (Non-African Ame >60 (>=60 mL/min/1.73m^2); Globulin 4.0 g/dL; Glucose 108 mg/dL (74-106); Potassium 3.9 mmol/L (3.5-5.1); Sodium 141 mmol/L (136-145); Total Protein 8.0 g/dL (6.4-8.2)
[2024-12-12 01:51] LABS: Lactate/Lactic Acid 1.4 mmol/L (0.4-2.0)
[2024-12-12] MEDS: 0.9 % SODIUM CHLORIDE 1,000 ML 999 ML IV (02:02)
[2024-12-12] MEDS: KETOROLAC TROMETHAMINE 30 MG/ML VIAL IVP (02:02)
== END 2024-12-12 04:00 | disposition home or self-care (01) ==
PROVIDERS: Emergency Provider Internal Medicine
DX: B34.9 Viral infection, unspecified (principal)
CPT/HCPCS: 36415; 80053; 81001; 83605; 85025; 87045; 87046; 87070; 87427; 87493; 87804; 87811; 87880; 96361; 96374; 99284; J1885

== ENCOUNTER 2024-12-25 02:41 | Emergency (ER) | payer OTHER, SELFPAY ==
--- OUTSIDE RECORDS SUMMARY | 2023-11-13 11:15 | XMS_ITS ---
Author Organization [facility] Address [address] [place] [address] Care Team Providers Care Telesales Supervisor Name Role Phone Mary Rosales Primary Care Provider [phone] REASON FOR VISIT HIGH BP Encounters Encounter Location Date Provider Diagnosis [facility] [address] [place] [address] 11/13/2023 Mary Rosales Plan Of Treatment No Information Progress Notes * GIOVANNA STREETER ADOB: [birth year] (49 yo F)Acc No.[id number]:11/13/2023 PROGRESS NOTES Patient: SAQIB PIERREECLATOYA Stoll Account Number:[id number] Appointment Provider: Devin BIRCH DO :1975 A ge:48 Y S ex:Female Date:11/13/2023 Address:[address] [place], [place] [id number] Subjective: * Chief Complaints: * 1 . HIGH BP. * Medical History: Objective: * Vitals: Assessment: Plan: * Treatment: * Images: * Electronic signature of Nelson Rosales DO on 12/25/2024 at 02:51 AM EDT Sign off status: Pending * Appointment Provider: Devin BIRCH DO Date: 11/13/2023 Generated for Printi ng/Faxing/eTransmitting on: 12/25/2024 02:51 AM EDT
--- OUTSIDE RECORDS SUMMARY | 2023-11-26 11:15 | XMS_ITS ---
Author Organization [facility] Address [address] [place] [address] Care Team Providers Care Billing Administrator Name Role Phone Mary Rosales Primary Care Provider [phone] REASON FOR VISIT BP Encounters Encounter Location Date Provider Diagnosis [facility] [address] [place] [address] 11/26/2023 Mary Rosales Plan Of Treatment No Information Progress Notes * GIOVANNA STREETER ADOB: [birth year] (49 yo F)Acc No.[id number]:11/26/2023 Progress Notes Patient: SAQIB PIERREECCA Jerman Account Number:[id number] Appointment Provider: Devin BIRCH DO :1975 A ge:48 Y S ex:Female Date:11/26/2023 Address:[address] [place], [place] [id number] Subjective: * Chief Complaints: * 1 . BP. * Medical History: Objective: * Vitals: Assessment: Plan: * Treatment: * Images: * Electronic signature of Nelson Rosales DO on 12/25/2024 at 02:51 AM EDT Sign off status: Pending * Appointment Provider: Devin BIRCH DO Date: 11/26/2023 Generated for Essencei ng/Faramonag/eTransmitting on: 0 12/25/2024 02:51 AM EDT
--- OUTSIDE RECORDS SUMMARY | 2024-03-10 10:00 | XMS_ITS ---
Author Organization [facility] Address [address] [place] [address] Care Team Providers Care Heavy Coil Winder Name Role Phone Mary Rosales Primary Care Provider REASON FOR VISIT DISCUSS LABS Encounters Encounter Location Date Provider Diagnosis [facility] [address] [place] [address] 03/10/2024 Mary Rosales Plan Of Treatment No Information Progress Notes * GIOVANNA STREETER ADOB: [birth year] (49 yo F)Acc No.[id number]:03/10/2024 Progress Notes Patient: SAQIB PIERREECLATOYA Stoll Account Number:[id number] Appointment Provider: Devin BIRCH DO :1975 A ge:48 Y S ex:Female Date:03/10/2024 Address:[address] [place], [place] [id number] Subjective: * Chief Complaints: * 1 . DISCUSS LABS. * Medical History: Objective: * Vitals: Assessment: Plan: * Treatment: * Images: * Electronic signature of Nelson Rosales DO on 12/25/2024 at 02:51 AM EDT Sign off status: Pending * Appointment Provider: Devin BIRCH DO Date: 1 05/11/2023 Generated for Printi ng/Faxing/eTransmitting on: 0 12/25/2024 02:51 AM EDT
[2024-12-25 02:46] VITALS: BP 130/85; PULSE 98; TEMP 37; O2SAT 97; BMI 33.7
--- OUTSIDE RECORDS SUMMARY | 2024-12-25 02:51 | XMS_ITS | Patient Health Record ---
Author Organization [facility] es Address [address] [place] [address] Care Team Providers Care Icer Hand Name Role Phone Mary Rosales Primary Care Provider [phone] Allergies Allergen (clinical drug ingredient) Drug/Non Drug Allergy documented on EMR Reaction Allergy Type Onset Date Status hydromorphone Dilaudid Unknown Drug Allergy Act gregory morphine Morphine Sulfate Unknown Drug Allergy Active Penicillin hives Drug Allergy Active Results Component Value Reference Range Notes Vitamin B1 (Thiamine) Blood Reviewed date:03/05/2024 11:58:21 AM Interpretation:Normal Performing Lab:, [facility], [address] [place] Notes/Report: Reason for Exam Chronic fatigue;Myalgia, multiple sites;Paresthesia;Mild ane Vitamin B1 (Thiamine) Blood 132.0 66.5-200.0 This test was developed and its performance characteristics determined by [facility]. It has not been cleared or approved by the Food and Drug Administration. Performed at: [address] [id number] Central Office Repairer: Norman Lind MD, Phone: [phone] Rheumatoid Factor Reviewed date:03/03/2024 06:27:10 PM Interpretation:Normal Performing Lab: Notes/Report: Reason for Exam Chronic diarrhea Reason for Exam Chronic fatigue;Myalgia, multiple sites;Paresthesia;Mild ane Rheumatoid Factor <10.0 <14.0 [IU]/mL Performed at: [address] [id number] Central Office Repairer: Main Miranda PhD, Phone: [phone] Celiac Reviewed date:03/03/2024 06:26:37 PM Interpretation: Performing Lab:, [facility], [address] [place] Notes/Report: Reason for Exam Chronic diarrhea Reason [...] Qn, Serum 132 87-352 mg/dL Performed at: [facility] [id number] Central Office Repairer: Main Miranda PhD, Phone: [phone] Cyclic Citrulliated Pep Ab Reviewed date:03/03/2024 06:26:53 PM Interpretation:Negative Performing Lab: Notes/Report: Reason for Exam Chronic diarrhea Reason for Exam Chronic fatigue;Myalgia, multiple sites;Paresthesia;Mild ane Cyclic Citrulliated Pep Ab 7 0-19 Negative <20 Weak positive 20 - 39 Moderate positive 40 - 59 Strong positive >59 Performed at: [facility] [address] [id number] Central Office Repairer: Main Miranda PhD, Phone: [phone] Anti-dsDNA(DBL)Ab Reviewed date:03/03/2024 06:26:59 PM Interpretation:Negative Performing Lab: Notes/Report: Reason for Exam Chronic diarrhea Reason for Exam Chronic fatigue;Myalgia, multiple sites;Paresthesia;Mild ane Anti-dsDNA(DBL)Ab 2 0-9 [IU]/mL Negative <5 Equivocal 5 - 9 Positive >9 Erythrocyte Sedimentation Ra te Reviewed date:03/02/2024 01:03:18 PM Interpretation: Performing Lab: Notes/Report: sites;Paresthesia;Mild ane Reason for Exam Chronic fatigue;Myalgia, multiple Reason for Exam Benign essential hypertension Erythrocyte Sedimentation Rate 47 0-29 Complete Blood Count Auto Di ff Reviewed date:03/02/2024 01:04:50 PM Interpretation: Performing Lab:, [facility], [address] [place] Notes/Report: Reason for Exam Benign essential hypertension [...] Reviewed date:03/02/2024 01:04:04 PM Interpretation: Performing Lab:, [facility], [address], [place] Notes/Report: Reason for Exam Benign essential hypertension [...] to 14 days is recommended. 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 Stress is when someone feels tense, nervous, anxious, or cant sleep at night because their mind is troubled Somewhat In the past year have you sp ent more than 2 nights in a row in a longterm, assisted, senior living center, or juvenile correctional facility? [...] Status W/U Status Risk Notes Problem Hypomagnesemia (759806665) Hypomagnesemia (E83.42) Active confirmed Problem Essential hypertension (81385147) Essential (primary) hypertension (I10) Active confirmed Problem Chronic sinusitis (19880161) Chronic sinusitis, unspecified (J32.9) Active confirmed Problem Dysuria (18923633) Dysuria (R30.0) Active confi rmed Problem Excessive thirst (66825857) Polydipsia (R63.1) Active confirmed Problem Hyperlipidemia (40568179) Hyperlipidemia (E78.5) Active confirmed Problem Dysmenorrhea (188915467) Dysmenorrhea (N94.6) Active confirmed Problem Vitamin D deficiency (79028525) Vitamin D deficiency (E55.9) Active confirmed Problem Anxiety (02521673) Anxiety (F41.9) Active confi rmed Problem Amenorrhea (23755580) Amenorrhea (N91.2) Active confirmed Problem Abdominal pain (98861764) Abdominal pain (R10.9) Active confirmed Problem Environmental allergy (749366201) Environmental allergies (Z91.09) Active confirmed Problem Anxiety state (096006216) Acute anxiety (F41.9) Active confirmed Problem Paresthesia of both hands (388705621) Paresthesia of both hands (R20.2) Active confirmed Problem Iron deficiency anemia (31159299) Other iron deficiency anemia (D50.8) Active confirmed Problem Thoracic back pain (728686586) Upper back pain (M54.9) Active confirmed Problem Fatigue (95167031) Fatigue, unspecified type (R53.83) Active confirmed Problem Chronic fatigue syndrome (69042737) Chronic fatigue (R53.82) Active confirmed Problem Abnormal uterine bleeding (93687024525455) Abnormal uterine bleeding (N93.9) Active confirmed Problem Tension headache (934916638) Tension headache (G44.209) Active confirmed Problem Menopausal flushing (191756280) Hot flash, menopausal (N95.1) Active confirmed Problem Benign essential hypertension (7415048) Benign essential hypertension (I10) Active confirmed Problem Iron deficiency anemia due to chronic blood loss (998232451) Iron deficiency anemia due to chronic blood loss (D50.0) Active confirmed Problem Disorder of female genital organs (638530169) Cervical motion tenderness (N94.9) Active confirmed Problem Anemia (479804323) Mild anemia (D64.9) Active confirmed Problem Status migrainosus (721237570) Status migrainosus (G43.901) Active confirmed Problem Current smoker (72058548) Current smoker (F17.200) Active confirmed Problem Pain in tooth (88128212) Pain in tooth (K08.89) Active confirmed Problem Migraine (18052001) Headache, mi graine (G43.909) Active confirmed Problem Seasonal allergic rhinitis (254126479) Seasonal allergic rhinitis, unspecified trigger (J30.2) Active confirmed Problem Gastroesophageal reflux disease (742284872) Gastroesophageal reflux disease, unspecified whether esophagitis present (K21.9) Active confirmed Problem Mild recurrent major depression (84796427) Depression, major, recurrent, mild (F33.0) Active confirmed Vital Signs Heart Rate 82 /min 02/04/2024 Temperature 97.2 degrees Fahrenheit 02/04/2024 Respiratory Rate 20 /min 02/04/2024 Blood pressure diastolic 83 mm Hg 02/04/2024 Oximetry 96 % 02/04/2024 Height 63.75 in 02/04/2024 Blood pressure systolic 127 mm Hg 02/04/2024 Weight 194.0 lbs 02/04/2024 BMI 33.56 kg/m2 02/04/2024 Encounters Encounter Location Date Provider Diagnosis [facility] [address] [place] [address] 02/04/2024 Mary Rosales Chronic fatigue R53. 82 ; Myalgia, multiple sites M79.18 ; Paresthesia R20.2 ; Hyperlipidemia E78.5 ; Benign essential hypertension I10 ; Mild anemia D64.9 ; Chronic diarrhea K52.9 and Nausea R11.0 [facility] [address] [place] [address] 01/07/2024 Mary Rosales [place] [address] [place] [address] 01/31/2024 Mary Rosales [place] [address] [place] [address] 03/02/2024 Mary Rosales Iron deficiency E61. 1 and Hypomagnesemia E83.42 [place] [address] [place] [address] 05/08/2024 Mary Rosales Benign essential hypertension I10 Assessments Encounter Date Diagnosis (ICD Code) Assessment [...] Insured Coverage Start Date Coverage End Date ADRIANNE [employer] [address] [place] [address] [id number] SYLGIOVANNA Fermin Self - patient is the insured Wrap [facility] [employer] [address] [place] [address] [id number] SYL GIOVANNA Self - patient is the insured 1 4 [facility] ed 22. [address] [place] [address] [id number] SYL, GIOVANNA Self - patient is the insured 1 3 zMEDICAID [employer] after [place] med 22 [address] [place] [phone] [id number] SYL, GIOVANNA Self - patient is the insured 1 3 zDENTAL [place] med 22 [address] [address] [place] [phone] [id number] SYL GIOVANNA Self - patient is the insured 0 [facility] after [place] med [address] [place] [address] [id number] SYL GIOVANNA Self - patient is the insured 0 3 [place] [employer] [address] [place] [address] [id number] SYL GIOVANNA Self - patient is the insured 2 4 [facility] [employer] [address] [address] [place] [phone] [id number] SYL GIOVANNA Self - patient is the insured 3 [employer] [facility] [place] [address] [place] [phone] [id number] SYL GIOVANNA Self - patient is the insured 3 [facility] [employer] [place] [employer] [address] [place] [address] [id number] GI[address]ANNA STREETER Self - patient is the insured 3 [facility] [address] [place] [address] [id number] GIOVANNA STREETER Self - patient is the insured 3 Medical (General) History Medical History History ICD Code scoliosis torticollis at migraines Kidney Stone depression anxiety Surgical History Surgery Date(Month/Year) removal left SCM muscle to release torti doug infancy TUBUAL LIGATION 2006 lipotripsy Hospitalization History Reason Date(Month/Year) Depression/suicidal See surgical
--- OUTSIDE RECORDS SUMMARY | 2024-12-25 02:57 | XMS_ITS | CCD ---
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 Name Role Phone [facility], Services Primary Care Provider MD John Cortes Jr Emergency Provider DO Denver Hess Emergency Provider ALVARO Hall Emergency Provider MD Shorty Marinelli Emergency Provider MD Meg Dang Emergency Provider MUSA Branch Emergency Provider [phone] MUSA Walsh Emergency Provider REBECCA NAVAS Primary Care Physician [facility], Services Primary Care Provider MD John Cortes Jr Emergency Provider [facility] Primary Care Provider [phone] DO Denver Hess Emergency Provider DO John Phelan Emergency Provider [phone] [facility] Primary Care Provider [phone] DO Denver Hess Emergency Provider [phone] MD John Cortes Jr Emergency Provider MD Meg Dang Emergency Provider MUSA Branch Emergency Provider [phone] MUSA Walsh Emergency Provider MD Shorty Marinelli Emergency Provider [phone] DO John Phelan Emergency Provider [facility] Primary Care Provider [phone] MD John Cortes Jr Emergency Provider MD Meg Dang Emergency Provider MUSA Branch Emergency Provider MUSA Walsh Emergency Provider DO Denver Hess Emergency Provider MD Shorty Marinelli Emergency Provider [phone] DO John Phelan Emergency Provider DO Severo Aponte Emergency Provider [facility] Primary Care Provider MD John Cortes Jr Emergency Provider [facility] Primary Care Provider [phone] MD John Cortes Jr Emergency Provider DO Denver Hess Emergency Provider [facility] Primary Care Provider [phone] MD Shorty Marinelli Emergency Provider DO Dustin Dorsey Emergency Provider Unavai DO Drew Dooley Emergency Provider [facility] Primary Care Provider MD John Cortes Jr Emergency Provider [facility] Primary Care Provider [facility] Primary Care Provider [phone] DO John Phelan Emergency Provider [facility] Primary Care Provider [phone] DO Denver Hess Emergency Provider MD John Cortes Jr Emergency Provider MD Meg Dang Emergency Provider FRED Navas Attending Provider [phone] [facility] Primary Care Provider DO Severo Aponte Emergency Provider [phone] Favio Cardoso Referring Unavailable Favio Cardoso Attending Phys[facility] Primary Care Provider DO John Phelan Emergency Provider Unavailab MD Shorty Eisenberg Emergency Provider DO Denver Hess Emergency Provider MD Yo Joshua Admit Provider MD Joshua Ram Attending Provider [facility] Primary Care Provider DO Dustin Dorsey Emergency Provider DO Drew Finley Emergency Provider DO Denver Hess Emergency Provider [phone] MD Shorty Marinelli Emergency Provider DO Severo Aponte Emergency Provider [phone] MD John Cortes Jr Emergency Provider MD Meg Dang Emergency Provider [phone] CELE Navas-C Rebecca Wylie Attending Provider MD Joshua Ram Admit Provider [phone] MD Joshua Ram Attending Provider [facility] Primary Care Provider [phone] DO Drew Ba Emergency Provider [facility] Primary Care Provider MD Shorty Marinelli Emergency Provider DO Miguel Angel Baic Emergency Provider [phone] DO Denver Hess Emergency Provider [facility] Primary Care Provider MD Shorty Marinelli Emergency Provider MD John Cortes Jr Emergency Provider DO Dustin Dorsey Emergency Provider DO Severo Anderson Emergency Provider [phone] PATRICK ., TRINY Admitting Unavailable PATRICK ., TRINY Attending Unavailable [facility] Primary Care Unavaila ble PATRICK ., TRINY Consulting Unavailable [facility] Primary Care Unavaila ble DIAB ., ZACKARY Admitting Unavailable DIAB ., ZACKARY Attending Unavailable MEG CORNEJO Consulting Unavailable DIAB ., ZACKARY Consulting Unavailable [facility] Primary Care Unavaila ble PATRICK ., TRINY Admitting Unavailable PATRICK ., TRINY Attending Unavailable PATRICK ., TRINY Consulting Unavailable [facility] Primary Care Unavaila ble REINECK, DR SARHTAK Ibanez Admitting Unavailabl e REINECK, DR SARTHAK Ibanez Attending Unavailabl e REINECK, DR SARTHAK Ibanez Consulting Unavailabl e PATRICK ., TRINY Consulting Unavailable [facility] Primary Care Unavaila ble DRISS, STEPHANIE Admitting Unavailable DRISS, STEPHANIE Attending Unavailable DRISS, STEPHANIE Consulting Unavailable ESTEVAN MONROE Consulting Unavailable [facility] Primary Care Provider FRED Navas Attending Provider DO Drew Ba Emergency Provider MD John Cortes Jr Emergency Provider DO Denver Hess Emergency Provider MD Shorty Marinelli Emergency Provider [phone] [facility] Primary Care Provider FRED Navas Attending Provider [facility] Primary Care Provider [phone] FRED Navas Attending Provider [facility] Primary Care Provider MD John Cortes Jr Emergency Provider DO Dustin Dorsey Emergency Provider Dorothy guerrero [facility] Primary Care Provider MD John Cortes Jr Emergency Provider DO Denver Hess Emergency Provider [facility] Primary Care Provider DO Dustin Dorsey Emergency Provider MD John Mckeon Jr Emergency Provider Leonel [facility] Dorcas Lee Emergency Provider DO Drew Ba Emergency Provider [phone] [facility] Primary Care Provider DO Dustin Dorsey Emergency Provider Dorothy guerrero [facility] Primary Care Provider DO Denver Hess Emergency Provider [facility] Primary Care Provider DO Dustin Dorsey Emergency Provider MD John Mckeon Jr Emergency Provider DO Denver Hess Emergency Provider DO Dominik Hall M Emergency Provider [facility] Primary Care Provider MD John Cortes Jr Emergency Provider DO Drew Ba Emergency Provider MD Shorty Marinelli Emergency Provider [facility] Primary Care Provider DO Denver Hess Emergency Provider DO Dustin Dorsey Emergency Provider Dorothy guerrero [facility] Primary Care Provider [phone] MD Shorty Marinelli Emergency Provider [phone] MD John Cortes Jr Emergency Provider DO Denver Hess Emergency Provider DO Mejia Drew Emergency Provider DO Dustin Dorsey Emergency Provider DO Severo Anderson Emergency Provider [facility] Primary Care Provider MD John Cortes Jr Emergency Provider DO Dominik Hall Emergency Provider [facility] Primary Care Provider [phone] DO Dustin Dorsey Emergency Provider DO Drew Finley Emergency Provider [facility] Primary Care Provider [phone] MD John Cortes Jr Emergency Provider Dorsey, DO Dustin M Emergency Provider Unavai cesar Hess, DO Denver Wylie Emergency Provider Moisés Lopez Attending Unavailable Marshall Henriquez A Attending Unavailable Phillip Gamez Attending Unavailable Dokkkofi Kaylinn A Attending Unavailable Claudia, Donis S. Attending Unavailable Dokkkofi, Kaylinn A Attending Unavailable Claudia, Donis S. Attending Unavailable Claudia, Donis S. Attending Unavailable [facility] Primary Care Provider [phone] MD John Cortes Jr Emergency Provider DO Dustin Dorsey Emergency Provider Unavai cesar Taylor, DO Donis S. Attending Unavailable Claudia, DO Donis S. Attending Unavailable MD Shorty Marinelli Emergency Provider Claudia, Donis S. Attending Unavailable Claudia, Donis S. Attending Unavailable Hajdari, Astrit H Attending Unavailable Claudia, Donis S. Attending Unavailable Hajdari, Astrit H Attending Unavailable [facility] Primary Care Provider DO Pamela Christensen Emergency Provider DO Dominik Hall Emergency Provider DO Destiney Henriquezn A Attending Unavailable DoDO jerald Kaylinn A Attending Unavailable [facility] Primary Care Provider [phone] MD John Cortes Jr Emergency Provider Jimena, DO Denver Wylie Emergency Provider Marshall Henriquez Attending Unavailable Claudia, DO Donis S. Attending Unavailable MD Rebecca Marmolejo Emergency Provider [phone] [facility] Primary Care Provider Denver Hess DO Emergency Provider [phone] Shorty Marinelli MD Emergency Provider John Cortes MD Emergency Provider Pamela Christensen DO Emergency Provider [phone] Dominik Hall DO Emergency Provider Rebecca Marmolejo MD Emergency Provider Meg Dang MD Emergency Provider [phone] [facility] Primary Care Provider Denver Hess DO Emergency Provider [facility] Primary Care Provider John Cortes MD Emergency Provider [facility] DO, Drew Attending Provider Mary White DO Referring Provider Drew Ba DO Emergency Provider [facility] Primary Care Provider [phone] John Cortes MD Emergency Provider Yayo Dahl PA-C Emergency Provider [facility] Primary Care Provider John Cortes MD Emergency Provider Drew Ba DO Emergency Provider [phone] Yayo Dahl PA-C Emergency Provider Denver Hess DO Emergency Provider [phone] [facility] Primary Care Provider Drew Ba DO Emergency Provider John Cortes MD Emergency Provider Drew Ba DO Emergency Provider Unavailable Dustin Dorsey DO Emergency Provider Dorothy guerrero [facility] Primary Care Provider Denver Hess DO Emergency Provider Dustin Dorsey DO Emergency Provider John Mckeon MD Emergency Provider Severo Aponte DO Emergency Provider [facility] Primary Care Provider [phone] Denver Hess DO Emergency Provider [facility] Primary Care Provider Jaleel COSME, Rebecca Head Emergency Provider [phone] Baljinder Buck DO Attending Provider Baljinder Buck DO Attending Provider Denver Hess Attending [facility]available [facility] Primary Care Unavaila ble Denver Hess Admitting Unavailable Dustin Dorsey Attending Unavailable [facility] Primary Care Unavaila ble Dustin Dorsey Admitting Unavailable [facility] Primary Care Unavaila ble Denver Hess Admitting Unavailable Denver Hess Attending Unavailable John Cortes Jr Admitting Unavailable [facility] Primary Care Unavaila John Quevedo Jr Attending Unavailable Drew Ba Admitting Unavailable Drew Ba Attending Unavailable [facility] Primary Care Unavaila Yayo Mccullough Attending Unavailable [facility] Primary Care Unavaila Yayo Mccullough Admitting Unavailable John Cortes Jr Admitting Unavailable [facility] Primary Care Unavaila John Quevedo Jr Attending Unavailable Rebecca Marmolejo Attending Unavailable [facility] Primary Care Unavaila Rebecca Long Admitting Unavailable John Cortes Jr Admitting Unavailable [facility] Primary Care Unavaila John Quevedo Jr Attending Unavailable John Cortes Jr Admitting Unavailable [facility] Primary Care Unavaila John Quevedo Jr Attending Unavailable Denver Hess Attending Unavailable [facility] Primary Care Unavaila ble Denver Hess Admitting Unavailable Meg Dang Attending Unavailable [facility] Primary Care Unavaila Meg Awan Admitting Unavailable Severo Aponte Attending Unavailable [facility] Primary Care Unavaila Severo Ravi Admitting Unavailable Drew Ba Attending Unavailable [facility] Primary Care Unavaila ble Drew Ba Admitting Unavailable John Cortes Jr Admitting Unavailable [facility] Primary Care Unavaila John Quevedo Jr Attending Unavailable Denver Hess Attending Unavailable [facility] Primary Care Unavaila ble Denver Hess Admitting Unavailable Rebecca Marmolejo Admitting Unavailable Rebecca Marmolejo Attending Unavailable [facility] Primary Care Unavaila John Quevedo Jr Attending Unavailable [facility] Primary Care Unavaila John Quevedo Jr Admitting Unavailable Baljinder uBck Attending Unavailable Baljinder Buck Admitting Unavailable [facility] Attending Unavailable Mary White Referring Unavailable [facility] Primary Care Unavaila ble [facility], Drew Admitting Unavailable Denver Hess Attending Unavailable [facility] Primary Care Unavaila Denver Stafford Admitting Unavailable [facility] Primary Care Unavaila John Quevedo Jr Admitting Unavailable John Cortes Jr Attending Unavailable John Cortes Jr Admitting Unavailable [facility] Primary Care Unavaila John Quevedo Jr Attending Unavailable [facility] Primary Care Unavaila Denver Stafford Attending Unavailable Devner Hess Admitting Unavailable John Cortes Jr Attending Unavailable [facility] Primary Care Unavaila John Quevedo Jr Admitting Unavailable Allergies Allergy Classification Reported Allergen(s) Allergy Type Date of Onset Reaction(s) Facility Cephalosporins (antibiotic) (3 sources) Cefaclor Drug Allergy 4 [facility] Opioid Agonists (6 sources) HYDROmorphone Drug Allergy 4 [facility] Penicillins (antibiotic) (3 sources) Penicillins Drug Allergy 4 [facility] (20 sources) Cefaclor; Translations: [Cefaclor] Drug Allergy 2 Unknown risk of deliberate self harm (finding) [facility] (20 sources) HYDROmorphone; Translations: [Hydromorphone] Drug Allergy 2 Unknown (qualifier value) [facility] (20 sources) Morphine; Translations: [Morphine] Drug Allergy 2 Unknown risk of deliberate self harm (finding) [facility] (20 sources) Penicillins; Translations: [penicillins] Allergy to substance 2 Hives [facility] (1 source) Cephalexin Drug Allergy 3 [facility] (9 sources) HYDROmorphone; Translations: [Dilaudid] Drug Allergy 3 [facility] (1 source) Penicillin Drug Allergy 3 [facility] (1 source) Tylenol-Codeine Drug allergy (disorder) 3 [facility] Medications Current Medications Medication Drug Class(es) Dates Sig (Normalized) Sig (Original) acetaminophen 325 mg oral capsule (20 sources) Start: 10-28-2024 acetaminophen 325 mg / butalbital 50 mg / caffeine 40 mg oral tablet (8 sources) Barbiturate, Central Nervous System Stimulant, Methylxanthine Start: 03-29-2023 take 2 tablets by mouth every six hours for headache APAP/butalbital/c affeine 325 mg-50 mg-40 mg Tab 2 tab(s), Oral, q6hr for headache, 20 tab(s), Refill(s) 0, [facility] #92112, 160, cm, 03/29/23 2:45:00 EST, Height/Length Dosing, 97, kg, 03/29/23 2:45:00 EST, Weight Dosing Start Date: 03/29/23 Status: Ordered Acidophilus Probiotic Blend oral capsule (1 source) Start: 01-28-2022 Acidophilus Probiotic Blend oral capsule 1 cap(s), Oral, Daily, 30 cap(s), Refill(s) 0, [facility] #02751, 160, cm, 01/28/22 1:37:00 EDT, Height/Length Dosing, 87.2, kg, 01/28/22 1:37:00 EDT, Weight Dosing Start Date: 01/28/22 Status: Ordered [id number] 200 actuat albuterol 0.09 mg/actuat metered dose inhaler (20 sources) beta2-Adrenergic Agonist Start: 05-10-2024 Start: 02-05-2019 End: 07-09-2019 Start: 02-05-2019 End: 07-09-2019 Albuterol Sulfate Discontinu ed 2 INH INHALATION Q4H 1 February 05, 2019 1:00am July 09, 2019 11:38pm brompheniramine maleate 0.4 mg/ml / dextromethorphan hydrobromide 2 mg/ml / pseudoephedrine hydrochloride 6 mg/ml oral solution (20 sources) alpha-Adrenergic Agonist, Uncompetitive J-hcgkhf-M-aspartate Receptor Antagonist, Sigma-1 Agonist Start: 02-04-2022 take 5 mL by mouth four times daily for cough and congestion Bromfed DM oral syrup 5 mL, Oral, QID for cough and congestion, 200 mL, Refill(s) 0, [facility] #04069, 160, cm, 04/15/23 2:19:00 EST, Height/Length Dosing, 93.6, kg, 04/15/23 2:19:00 EST, Weight Dosing Start Date: 04/15/23 Status: Ordered Start: 11-19-2020 End: 02-27-2021 Start: 11-19-2020 End: 02-27-2021 take 1 mL by mouth four times daily Gfodtkjdtqkzotr-Snjnmolfi-Vo (Bromfed Dm) 2-30-10 mg/5 mL syrup Discontinued 5 ML PO Four times daily 200 November 19, 2020 12:00am February 27, 2021 10:58am cyclobenzaprine hydrochlorid e 10 mg oral tablet (20 sources) Muscle Relaxant Start: 12-01-2024 Start: 12-11-2023 End: 08-21-2024 Start: 07-13-2023 End: 09-21-2023 Start: 08-22-2022 End: 12-16-2023 Start: 08-05-2022 End: 09-07-2022 Start: 02-26-2022 End: 04-09-2022 Start: 08-23-2020 End: 11-09-2020 meclizine hydrochloride 25 m g oral tablet (20 sources) Antiemetic Start: 09-01-2024 Start: 11-19-2023 take 1 tablet by wilmer th three times daily as needed for dizziness meclizine 25 mg Tab 25 mg = 1 tab(s), Oral, TID, PRN for dizziness, # 20 tab(s), Refills(s) 0, Pharmacy: [facility] [id number], 160, cm, 11/18/23 22:17:00 EDT, Height/Length Dosing, 93.2, kg, 11/18/23 22:17:00 EDT, Weight Dosing Start Date: 11/19/23 Status: Ordered Start: 07-29-2022 End: 09-07-2022 Start: 01-14-2021 End: 04-09-2022 Start: 03-27-2019 End: 01-08-2020 Start: 01-15-2018 End: 09-21-2018 metroNIDAZOLE 500 mg oral tablet (20 sources) Nitroimidazole Antimicrobial Start: 01-28-2022 End: 02-07-2022 take 1 tablet by mouth three times daily MetroNIDAZOLE 500 mg Tab 500 mg = 1 tab(s), Oral, TID, X 10 day(s), # 30 tab(s), Refills(s) 0, Pharmacy: [facility] #[id number], 160, cm, 01/28/22 1:37:00 EDT, Height/Length Dosing, 87.2, kg, 01/28/22 1:37:00 EDT, Weight Dosing Start Date: 01/28/22 Stop Date: 02/07/22 Status: Ordered Start: 12-08-2019 End: 01-03-2020 Start: 12-08-2019 End: 01-03-2020 take 1 tablet by mouth twice daily Metronidazole (Flagyl) 500 mg tablet Discontinued 500 MG PO Twice daily 12 10December 08, 2019 12:00am January 03, 2020 4:23pm 24 hr NIFEdipine 30 mg extended release oral tablet (20 sources) Dihydropyridine Calcium Channel Kehinde Start: 11-11-2023 omeprazole 20 mg delayed release oral capsule (20 sources) Proton Pump Inhibitor Start: 12-08-2023 take 1 capsule by mouth once daily omeprazole 20 mg Cap-DR 20 mg = 1 cap(s), Oral, Daily, # 14 tab(s), Refills(s) 0, Pharmacy: [facility] [id number], 160, cm, 12/08/23 3:21:00 EDT, Height/Length Dosing, 93.3, kg, 12/08/23 3:21:00 EDT, Weight Dosing Start Date: 12/08/23 Status: Ordered Start: 08-07-2022 Start: 07-09-2019 End: 08-07-2022 Start: 12-19-2018 End: 06-25-2019 Start: 12-19-2018 End: 06-25-2019 take 20 mg by mouth once daily Omeprazole Discontinued 20 MG PO Daily December 19, 2018 12:00am June 25, 2019 11:19pm ondansetron 4 mg oral tablet (20 sources) Serotonin-3 Receptor Antagonist Start: 12-01-2024 Start: 11-15-2024 Start: 01-04-2024 End: 05-10-2024 Start: 11-19-2023 take 1 tablet by wilmer th every six hours as needed for nausea ondansetron 4 mg Dis Tab 4 mg = 1 tab(s), Oral, q6hr, PRN Nausea/Vomiting, # 12 tab(s), Refills(s) 0, Pharmacy: [facility] [id number], 160, cm, 11/18/23 22:17:00 EDT, Height/Length Dosing, 93.2, kg, 11/18/23 22:17:00 EDT, Weight Dosing Start Date: 11/19/23 Status: Ordered Start: 06-15-2023 End: 02-20-2024 Start: 01-21-2023 End: 05-11-2023 Start: 12-09-2022 End: 03-06-2023 Start: 07-27-2022 End: 08-05-2022 Start: 01-29-2022 End: 06-09-2022 Start: 12-28-2021 End: 02-16-2022 Start: 11-26-2021 End: 01-16-2022 Start: 11-26-2021 Start: 11-26-2021 Start: 10-29-2021 End: 01-05-2022 Start: 10-29-2021 End: 01-05-2022 Start: 02-17-2021 End: 03-08-2021 Start: 02-17-2021 End: 03-08-2021 take 1 tablet by mouth once daily Ondansetron Hcl (Zofran) 4 mg tablet Discontinued 4 MG PO Daily 20 February 17, 2021 1:00am March 08, 2021 12:31pm Start: 10-29-2020 End: 10-09-2021 Start: 05-29-2020 End: 11-09-2020 take 1 tablet by mouth once daily Ondansetron Hcl (Zofran) 4 mg tablet Discontinued 4 MG PO Daily 7 May 29, 2020 1:00am November 09, 2020 2:36am Start: 03-26-2020 End: 04-28-2020 take 4 mg by mouth once daily Ondansetron Discontinued 4 MG PO Daily 7 March 26, 2020 1:00am April 28, 2020 12:11pm Start: 02-26-2020 End: 03-12-2020 take 1 tablet by mouth three to four times daily Ondansetron Hcl (Zofran) 4 mg tablet Discontinued 4 MG PO 3 to 4 times per day February 26, 2020 1:00am March 12, 2020 10:32pm Start: 01-18-2020 End: 05-29-2020 Start: 01-18-2020 End: 05-29-2020 Start: 01-15-2020 End: 01-11-2021 Start: 12-08-2019 End: 01-08-2020 Start: 10-03-2019 End: 10-20-2019 Start: 08-23-2019 End: 12-14-2019 Start: 12-11-2018 End: 06-25-2019 Start: 12-11-2018 End: 06-25-2019 Start: 07-19-2018 End: 12-13-2018 Start: 01-23-2018 End: 04-03-2018 Start: 08-05-2017 End: 09-11-2017 Start: 08-05-2017 End: 08-12-2017 Start: 08-05-2017 End: 08-12-2017 take 8 mg by mouth twice daily Ondansetron Discontinue d 8 MG PO Twice daily August 05, 2017 12:00am August 12, 2017 12:17pm Start: 07-15-2017 End: 07-20-2017 tiZANidine 2 mg oral tablet (1 source) Central alpha-2 Adrenergic Agonist Start: 12-18-2023 End: 12-25-2023 take 1 tablet by mouth every eight hours tiZANidine 2 mg Tab 2 mg = 1 tab(s), Oral, q8hr, X 7 day(s), # 21 tab(s), Refills(s) 0, Pharmacy: [facility] [id number], 160, cm, 12/18/23 20:36:00 EDT, Height/Length Dosing, 93, kg, 12/18/23 20:36:00 EDT, Weight Dosing Start Date: 12/18/23 Stop Date: 12/25/23 Status: Ordered Zofran ODT 4 mg Tab-Dis (20 sources) Start: 11-18-2023 take 1 tablet by mouth every eight hours as needed for nausea Zofran ODT 4 mg Tab-Dis 4 mg = 1 tab(s), Oral, q8hr, PRN Nausea/Vomiting, # 12 tab(s), Refills(s) 0, Pharmacy: [facility] [id number], 160, cm, 08/19/24 1:02:00 EDT, Height/Length Dosing, 93.2, kg, 11/18/23 1:02:00 EDT, Weight Dosing Start Date: 11/18/23 Status: Ordered Start: 03-29-2023 take 1 tablet by wilmer th every eight hours Zofran ODT 4 mg Tab-Dis 4 mg = 1 tab(s), Oral, q8hr, # 10 tab(s), Refills(s) 0, Pharmacy: [facility] #[id number], 160, cm, 03/29/23 2:45:00 EST, Height/Length Dosing, 97, kg, 03/29/23 2:45:00 EST, Weight Dosing Start Date: 03/29/23 Status: Ordered Start: 09-09-2022 take 1 tablet by wilmer every eight hours as needed for nausea Zofran ODT 4 mg Tab-Dis 4 mg = 1 tab(s), Oral, q8hr, PRN Nausea/Vomiting, # 16 tab(s), Refills(s) 0, Pharmacy: [facility] #[id number], 160, cm, 09/09/22 18:26:00 EDT, Height/Length Dosing, 88, kg, 09/09/22 18:26:00 EDT, Weight Dosing Start Date: 09/09/22 Status: Ordered Completed/Discontinued Medications Medication Drug Class(es) Dates Sig (Normalized) Sig (Original) acetaminophen 250 mg / aspirin 250 mg / caffeine 65 mg oral tablet (20 sources) Platelet Aggregation Inhibitor, Nonsteroidal Anti-inflammatory Drug, Central Nervous System Stimulant, Methylxanthine Start: 01-03-2020 End: 01-08-2020 Start: 01-03-2020 End: 01-08-2020 take 2 tablets by mouth every four to six hours Gxwvwkg-Nggpmtbgmhgyu-Aqhwttrs (Excedrin Extra Strength) 250-250-65 mg Tablet Discontinued 2 TAB PO EVERY 4-6 HOURS January 03, 2020 12:00am January 08, 2020 10:08pm acetaminophen 300 mg / codei ne phosphate 30 mg oral tablet (20 sources) Opioid Agonist Start: 06-18-2022 End: 08-05-2022 acetaminophen 325 mg / HYDRO codone bitartrate 5 mg oral tablet (20 sources) Opioid Agonist Start: 10-07-2024 End: 12-04-2024 Start: 05-08-2024 End: 05-10-2024 Start: 02-10-2024 End: 02-20-2024 Start: 11-20-2022 End: 11-25-2022 Start: 10-03-2022 [place] 325 mg-5 mg oral tablet 1 tab(s), Oral, q4hr for pain, 12 tab(s), Refill(s) 0 Start Date: 10/03/22 Status: Ordered Start: 08-05-2022 End: 09-07-2022 Start: 12-13-2020 End: 01-11-2021 Start: 12-13-2020 End: 01-11-2021 take 1 tablet by mouth four times daily Hydrocodone-Acetaminophen Discontinued 1 TAB PO Four times daily 7 December 13, 2020 January 11, 2021 7:20am Start: 09-15-2018 End: 09-21-2018 Start: 09-15-2018 End: 09-21-2018 take 1 tablet by mouth every six hours Hydrocodone-Acetaminophen ([place]) 5-325 mg tablet Discontinued 1 TAB PO Q6H 12 September 15, 2018 September 21, 2018 6:46pm Start: 04-14-2018 End: 07-19-2018 Start: 04-14-2018 End: 04-16-2018 take 1 tablet by mouth every six hours Hydrocodone-Acetaminophen ([place]) 5-325 mg tablet Discontinued 1 TAB PO Q6H 8 2 April 14, 2018 April 16, 2018 1:02am Start: 04-14-2018 End: 07-19-2018 take 1 tablet by mouth every eight hours Hydrocodone-Acetaminophen ([place]) 5-325 mg tablet Discontinued 1 TAB PO Q8H 8 April 14, 2018 July 19, 2018 3:58am Start: 02-26-2018 End: 04-03-2018 Start: 02-26-2018 End: 04-03-2018 take 1 tablet by mouth every six hours Hydrocodone-Acetaminophen ([place]) 5-325 mg tablet Discontinued 1 TAB PO Q6H February 26, 2018 April 03, 2018 1:33am Start: 01-23-2018 End: 02-08-2018 Start: 01-23-2018 End: 02-08-2018 take 1 tablet by mouth every four hours Hydrocodone-Acetaminophen ([place]) 5-325 mg Tablet Discontinued 1 - 2 TAB PO Every 4 hours 12 06January 23, 2018 February 08, 2018 10:18pm Start: 09-03-2017 End: 09-11-2017 Start: 09-03-2017 End: 09-11-2017 take 1 tablet by mouth every four to six hours Hydrocodone-Acetaminophen ([place]) 5-325 mg tablet Discontinued 1 TAB PO EVERY 4-6 HOURS September 03, 2017 September 11, 2017 1:58pm Start: 06-25-2017 End: 07-07-2017 Start: 06-25-2017 End: 07-07-2017 take 1 tablet by mouth every four to six hours Hydrocodone-Acetaminophen ([place]) 5-325 mg Tablet Discontinued 1 TAB PO EVERY 4-6 HOURS July 02, 2017 July 07, 2017 10:21pm acetaminophen 325 mg / oxyCODONE hydrochloride 5 mg oral tablet (20 sources) Opioid Agonist Start: 01-05-2022 take 1 tablet by mouth three times daily Oxycodone-Acetaminophen (Percocet) 5-325 mg tablet Active 1 TAB PO Three times daily 13 08January 05, 2022 Start: 12-03-2021 End: 02-16-2022 Start: 12-03-2021 End: 01-05-2022 take 1 tablet by mouth every eight hours Oxycodone-Acetaminophen (Percocet) 5-325 mg tablet Discontinued 1 TAB PO Q8H 10 December 03, 2021 January 05, 2022 12:27am Start: 02-17-2021 End: 02-27-2021 Start: 02-17-2021 End: 02-27-2021 take 1 tablet by mouth every six hours Oxycodone-Acetaminophen (Percocet) 5-325 mg tablet Discontinued 1 TAB PO Q6H 10 February 17, 2021 February 27, 2021 10:58am Start: 08-23-2020 End: 11-09-2020 Start: 08-23-2020 End: 11-09-2020 take 1 tablet by mouth every four to six hours Oxycodone-Acetaminophen (Percocet) 5-325 mg tablet Discontinued 1 TAB PO EVERY 4-6 HOURS 10 August 23, 2020 November 09, 2020 2:36am Start: 02-08-2018 End: 02-14-2018 Start: 02-08-2018 End: 02-14-2018 Oxycodone-Acetaminophen ([place]) 5-325 mg tablet Discontinued 1 TAB PO every 6 to 8 hours 12 09February 08, 2018 February 14, 2018 1:02am Start: 09-26-2017 End: 10-20-2017 Start: 09-26-2017 End: 10-20-2017 take 1 tablet by mouth every four to six hours Oxycodone-Acetaminophen (Percocet) 5-325 mg tablet Discontinued 1 TAB PO EVERY 4-6 HOURS September 26, 2017 October 20, 2017 11:31pm Start: 09-11-2017 End: 09-16-2017 Start: 09-11-2017 End: 09-16-2017 take 1 tablet by mouth every four to six hours Oxycodone-Acetaminophen Discontinued 1 TAB PO EVERY 4-6 HOURS September 11, 2017 September 16, 2017 12:01am Start: 08-12-2017 End: 08-18-2017 Start: 08-12-2017 End: 08-18-2017 take 1 tablet by mouth every four hours Oxycodone-Acetaminophen Discontinued 1 TAB PO Q4H August 12, 2017 August 18, 2017 12:02am atorvastatin 20 mg oral tabl et (20 sources) HMG-CoA Reductase Inhibitor Start: 01-15-2018 End: 10-05-2018 atropine sulfate 0.025 mg / diphenoxylate hydrochloride 2.5 mg oral tablet (20 sources) Anticholinergic, Cholinergic Muscarinic Antagonist, Antidiarrheal Start: 08-09-2019 End: 11-03-2019 Start: 08-09-2019 End: 11-03-2019 take 1 tablet by mouth twice daily Diphenoxylate-Atropine (Lomotil) 2.5-0.025 mg tablet Discontinued 1 TAB PO Twice daily 01 03August 09, 2019 12:00am November 03, 2019 2:06am azithromycin 250 mg oral tab let (20 sources) Macrolide Antimicrobial Start: 02-20-2024 End: 08-21-2024 Start: 04-15-2023 azithromycin 2 50 mg Tab 250 mg, Oral, As Directed, # 6 tab(s), Refills(s) 0, [id number], 160, cm, 04/15/23 2:19:00 EST, Height/Length Dosing, 93.6, kg, 04/15/23 2:19:00 EST, Weight Dosing Start Date: 04/15/23 Status: Ordered Start: 10-08-2021 End: 12-18-2021 Start: 04-12-2021 End: 05-04-2021 Start: 03-31-2020 End: 04-28-2020 Start: 01-15-2020 End: 12-18-2021 azithromycin 250 mg Tab 250 mg, Oral, As Directed, # 6 tab(s), Refills(s) 0, Pharmacy: [facility] #[id number], 160, cm, 04/15/23 2:19:00 EST, Height/Length Dosing, 93.6, kg, 04/15/23 2:19:00 EST, Weight Dosing Start Date: 04/15/23 Status: Ordered Start: 02-05-2019 End: 02-13-2019 benzonatate 100 mg oral caps ule (20 sources) Non-narcotic Antitussive Start: 05-10-2024 End: 08-21-2024 Start: 12-11-2023 End: 02-20-2024 Start: 06-06-2020 End: 11-09-2020 carbamide peroxide 65 mg/ml otic solution (20 sources) Start: 03-31-2020 End: 04-28-2020 Start: 03-31-2020 End: 04-28-2020 Carbamide Peroxide (Debrox) 6.5 % drops Discontinued 6 DROPS EAR-RIGHT Twice daily 15 March 31, 2020 1:00am April 28, 2020 12:12pm cephalexin 500 mg oral capsu le (20 sources) Cephalosporin Antibacterial Start: 09-26-2017 End: 10-03-2017 Start: 08-30-2017 End: 09-06-2017 Start: 08-30-2017 End: 09-06-2017 take 1 capsule by mouth three times daily Cephalexin (Keflex) 500 mg capsule Discontinued 500 MG PO Three times daily 19 10August 30, 2017 12:00am September 06, 2017 12:02am space evenly during waking hours Start: 08-11-2017 End: 08-25-2017 Start: 08-11-2017 End: 08-25-2017 take 1 capsule by mouth twice daily Cephalexin (Keflex) 500 mg Capsule Discontinued 500 MG PO Twice daily August 11, 2017 12:00am August 25, 2017 10:20pm Start: 07-08-2017 End: 07-15-2017 Start: 06-25-2017 End: 07-07-2017 Start: 06-25-2017 End: 07-07-2017 take 1 g by mouth twice daily Cephalexin (Keflex) 500 mg capsule Discontinued 1 GM PO Twice daily June 25, 2017 12:00am July 07, 2017 10:21pm cetirizine hydrochloride 10 mg oral tablet (20 sources) Histamine-1 Receptor Antagonist Start: 12-02-2016 End: 12-23-2016 12 hr cetirizine hydrochlori de 5 mg / pseudoephedrine hydrochloride 120 mg extended release oral tablet (10 sources) alpha-Adrenergic Agonist, Histamine-1 Receptor Antagonist Start: 09-07-2022 End: 11-20-2022 ciprofloxacin 500 mg oral ta blet (20 sources) Quinolone Antimicrobial Start: 10-07-2024 End: 12-04-2024 Start: 08-06-2023 End: 09-21-2023 Start: 01-28-2022 take 1 tablet by wilmer th twice daily Cipro 500 mg Tab 500 mg = 1 tab(s), Oral, BID, # 20 tab(s), Refills(s) 0, [facility]: [facility] #[id number], 160, cm, 01/28/22 1:37:00 EDT, Height/Length Dosing, 87.2, kg, 01/28/22 1:37:00 EDT, Weight Dosing Start Date: 01/28/22 Status: Ordered Start: 02-26-2018 End: 01-03-2020 Start: 09-11-2017 End: 10-20-2017 Start: 09-11-2017 End: 10-20-2017 take 1 tablet by mouth every twelve hours Ciprofloxacin Hcl (Cipro) 500 mg tablet Discontinued 500 MG PO Q12H September 11, 2017 12:00am October 20, 2017 11:31pm Start: 08-11-2017 End: 08-25-2017 Start: 08-11-2017 End: 08-25-2017 take 1 tablet by mouth every two hours Ciprofloxacin Hcl (Cipro) 500 mg tablet Discontinued 500 MG PO Q12H August 12, 2017 12:00am August 25, 2017 10:20pm administer dose 2 hrs before/6 hrs after dairy products/calcium/zinc/iron-containing products clarithromycin 500 mg oral t ablet (20 sources) Macrolide Antimicrobial Start: 10-28-2020 End: 11-09-2020 clindamycin 300 mg oral caps ule (20 sources) Lincosamide Antibacterial Start: 08-21-2024 End: 12-04-2024 Start: 01-19-2024 End: 01-26-2024 take 3 capsules by mouth every eight hours clindamycin 150 mg Cap 450 mg = 3 cap(s), Oral, q8hr, X 7 day(s), # 63 cap(s), Refills(s) 0, [facility] [id number], 160, cm, 01/19/24 3:44:00 EDT, Height/Length Dosing, 90.4, kg, 01/19/24 3:44:00 EDT, Weight Dosing Start Date: 01/19/24 Stop Date: 01/26/24 Status: Ordered Start: 12-14-2023 End: 02-20-2024 Start: 09-14-2023 End: 12-05-2023 Start: 05-21-2023 End: 06-03-2023 Start: 04-11-2023 End: 05-11-2023 Start: 12-09-2022 End: 03-06-2023 Start: 12-09-2022 End: 03-06-2023 Start: 11-13-2022 End: 11-20-2022 Start: 10-27-2022 End: 11-03-2022 take 3 capsules by mouth three times daily clindamycin 150 mg Cap 450 mg = 3 cap(s), Oral, TID, X 7 day(s), # 63 cap(s), Refills(s) 0, [facility]acy: [facility] #[id number], 160, cm, 10/27/22 2:02:00 EDT, Height/Length Dosing, 92.1, kg, 10/27/22 2:02:00 EDT, Weight Dosing Start Date: 10/27/22 Stop Date: 11/03/22 Status: Ordered Start: 10-07-2022 End: 11-25-2022 Start: 06-18-2022 End: 08-05-2022 Start: 04-22-2022 End: 06-09-2022 Start: 02-16-2022 End: 04-09-2022 Start: 12-05-2021 End: 12-12-2021 take 3 capsules by mouth every eight hours clindamycin 150 mg oral capsule 450 mg = 3 cap(s), Oral, q8hr, X 7 day(s), # 63 cap(s), Refills(s) 0, Pharmacy: [facility] #[id number], 160, cm, 12/05/21 0:49:00 EDT, Height/Length Dosing, 86, kg, 12/05/21 0:49:00 EDT, Weight Dosing Start Date: 12/05/21 Stop Date: 12/12/21 Status: Ordered Start: 12-02-2021 End: 12-18-2021 Start: 08-16-2021 End: 10-08-2021 Start: 08-16-2021 End: 10-08-2021 take 150 mg by mouth every eight hours Clindamycin Hcl Discontinued 150 MG PO Q8H 21 August 16, 2021 12:00am October 08, 2021 7:43am Start: 04-30-2021 End: 10-08-2021 Start: 04-30-2021 End: 10-08-2021 take 300 mg by mouth every six hours Clindamycin Hcl Discontinued 300 MG PO Q6H 80 April 30, 2021 1:00am October 08, 2021 7:43am Start: 02-05-2021 End: 02-27-2021 Start: 02-05-2021 End: 02-27-2021 take 150 mg by mouth every eight hours Clindamycin Hcl Discontinued 150 MG PO Q8H 30 February 05, 2021 12:00am February 27, 2021 10:58am Start: 10-16-2020 End: 11-09-2020 take 450 mg by mouth three times daily Clindamycin Hcl Discontinued 450 MG PO Three times daily 63 October 16, 2020 12:00am November 09, 2020 2:35am Start: 09-29-2020 End: 11-09-2020 take 1 capsule by mouth three times daily Clindamycin Hcl (Cleocin Hcl) 300 mg Capsule Discontinued 300 MG PO Three times daily September 29, 2020 12:00am November 09, 2020 2:35am Start: 09-10-2020 End: 11-09-2020 Start: 09-10-2020 End: 11-09-2020 take 450 mg by mouth every eight hours Clindamycin Hcl Discontinued 450 MG PO Q8H 63 September 10, 2020 12:00am November 09, 2020 2:35am Start: 08-23-2020 End: 11-09-2020 Start: 08-23-2020 End: 11-09-2020 take 300 mg by mouth every six hours Clindamycin Hcl Discontinued 300 MG PO Q6H 40 August 23, 2020 12:00am November 09, 2020 2:35am Start: 12-03-2018 End: 12-17-2018 Start: 12-03-2018 End: 12-17-2018 take 450 mg by mouth every eight hours Clindamycin Hcl Discontinued 450 MG PO Q8H 63 December 03, 2018 12:00am December 17, 2018 8:54pm Start: 07-20-2018 End: 09-15-2018 Start: 07-20-2018 End: 09-15-2018 take 300 mg by mouth every six hours Clindamycin Hcl Discontinued 300 MG PO Q6H 40 July 20, 2018 12:00am September 15, 2018 12:08am Start: 02-08-2018 End: 02-18-2018 Start: 02-08-2018 End: 02-18-2018 take 300 mg by mouth every six hours Clindamycin Hcl Discontinued 300 MG PO Q6H 40 February 08, 2018 1:00am February 18, 2018 1:01am Start: 12-05-2017 End: 01-15-2018 Start: 12-05-2017 End: 01-15-2018 take 300 mg by mouth three times daily Clindamycin Hcl Discontinued 300 MG PO Three times daily December 05, 2017 12:00am January 15, 2018 9:09pm Start: 04-23-2017 End: 05-03-2017 Start: 04-23-2017 End: 05-03-2017 take 300 mg by mouth four times daily Clindamycin Hcl Discontinued 300 MG PO Four times daily 40 April 23, 2017 1:00am May 03, 2017 1:04am Start: 12-02-2016 End: 12-23-2016 Start: 12-02-2016 End: 12-23-2016 take 300 mg by mouth every six hours Clindamycin Hcl Discontinued 300 MG PO Q6H 40 December 02, 2016 12:00am December 23, 2016 9:33am clonazePAM 0.5 mg oral table t (20 sources) Benzodiazepine Start: 12-19-2018 End: 12-22-2018 codeine phosphate 2 mg/ml / promethazine hydrochloride 1.25 mg/ml oral solution (20 sources) Opioid Agonist, Phenothiazine Start: 04-15-2021 End: 04-30-2021 Start: 04-15-2021 End: 04-30-2021 take 1 mL by mouth every four to six hours Promethazine-Codeine Discontinued 5 ML P O EVERY 4-6 HOURS 118 April 15, 2021 1:00am April 30, 2021 7:54pm Start: 05-01-2017 End: 05-04-2017 Start: 05-01-2017 End: 05-04-2017 take 1 mL by mouth every four to six hours Promethazine-Codeine Discontinued 5 ML P O EVERY 4-6 HOURS 118 3 May 01, 2017 1:00am May 04, 2017 1:04am diazePAM 5 mg oral tablet (20 sources) Benzodiazepine Start: 10-27-2019 End: 11-10-2019 dicyclomine hydrochloride 20 mg oral tablet (20 sources) Anticholinergic Start: 01-29-2022 End: 04-09-2022 Start: 01-28-2022 End: 02-04-2022 take 1 capsule by mouth four times daily Bentyl 10 mg Cap 10 mg = 1 cap(s), Oral, QID, X 7 day(s), # 14 cap(s), Refills(s) 0, Pharmacy: [facility] #[id number], 160, cm, 01/28/22 1:37:00 EDT, Height/Length Dosing, 87.2, kg, 01/28/22 1:37:00 EDT, Weight Dosing Start Date: 01/28/22 Stop Date: 02/04/22 Status: Ordered Start: 01-11-2020 End: 03-08-2021 Start: 01-11-2020 End: 02-14-2020 take 20 mg by mouth three times daily Dicyclomine Discontinued 20 MG PO Three times daily January 11, 2020 12:00am February 14, 2020 1:41pm Start: 08-23-2019 End: 01-08-2020 Start: 04-26-2019 End: 07-26-2019 Start: 12-11-2018 End: 06-25-2019 Start: 11-19-2018 End: 12-13-2018 Start: 11-19-2018 End: 12-13-2018 take 20 mg by mouth three times daily Dicyclomine Discontinued 20 MG PO Three times daily November 19, 2018 12:00am December 13, 2018 7:11pm doxycycline hyclate 100 mg o ral capsule (20 sources) Tetracycline-class Drug Start: 09-07-2022 End: 11-20-2022 Start: 04-17-2021 End: 05-04-2021 Start: 12-13-2020 End: 01-11-2021 erythromycin 500 mg oral tab let (20 sources) Macrolide, Macrolide Antimicrobial Start: 09-21-2024 End: 12-04-2024 Start: 10-26-2022 End: 11-20-2022 escitalopram 10 mg oral tablet (20 sources) Serotonin Reuptake Inhibitor Start: 06-12-2022 End: 09-07-2022 estradiol 0.1 mg/ml vaginal cream (20 sources) Estrogen Start: 11-13-2022 End: 03-06-2023 ferrous sulfate 325 mg oral tablet (20 sources) Start: 11-27-2020 End: 04-30-2021 FLUoxetine 10 mg oral capsule (20 sources) Serotonin Reuptake Inhibitor Start: 09-07-2022 End: 11-25-2022 fluticasone propionate 0.05 mg/actuat metered dose nasal spray (20 sources) Corticosteroid Start: 12-22-2020 End: 01-11-2021 take 1 spray(s) nasal route once daily Fluticasone Propionate (Flonase Allergy Relief) 50 mcg/actuation spray,suspension Discontinued 1 SPRAY INTRANASAL Daily December 22, 2020 12:00am January 11, 2021 7:20am administer into each nostril Start: 11-19-2020 End: 04-09-2022 Start: 11-19-2020 take 1 spray(s) nasa l route twice daily Fluticasone Propionate (Flonase Allergy Relief) 50 mcg/actuation spray,suspension Active 1 SPRAY INTRANASAL Twice daily November 19, 2020 12:00am administer into each nostril Start: 03-31-2020 End: 05-12-2020 Start: 03-31-2020 End: 05-12-2020 take 1 spray(s) nasal route every twelve hours Fluticasone Propionate Discontinued 1 SPRAY INTRANASAL Q12H March 31, 2020 1:00am May 12, 2020 10:06pm administer into each nostril Start: 04-17-2019 End: 07-26-2019 Start: 04-17-2019 End: 07-26-2019 take 1 spray(s) nasal route every twelve hours Fluticasone Propionate (Flonase Allergy Relief) 50 mcg/actuation spray,suspension Discontinued 1 SPRAY INTRANASAL Q12H 19.8 April 17, 2019 1:00am July 26, 2019 5:59pm administer into each nostril homatropine methylbromide 0. 3 mg/ml / HYDROcodone bitartrate 1 mg/ml oral solution (19 sources) Opioid Agonist, Cholinergic Muscarinic Agonist Start: 02-20-2024 End: 05-10-2024 hydrocortisone acetate 25 mg rectal suppository (20 sources) Corticosteroid Start: 04-07-2023 End: 05-11-2023 Start: 03-18-2023 End: 05-11-2023 hydrOXYzine hydrochloride 25 mg oral tablet (20 sources) Antihistamine Start: 12-22-2018 End: 01-08-2020 hyoscyamine sulfate 0.125 mg disintegrating oral tablet (20 sources) Start: 09-07-2022 End: 11-25-2022 ibuprofen 800 mg oral tablet (20 sources) Nonsteroidal Anti-inflammatory Drug Start: 10-29-2024 End: 12-04-2024 Start: 10-07-2024 End: 12-04-2024 Start: 06-19-2024 End: 10-07-2024 Start: 01-04-2024 End: 02-20-2024 Start: 12-11-2023 End: 12-16-2023 Start: 11-25-2023 End: 02-20-2024 Start: 11-25-2022 End: 03-17-2023 Start: 09-23-2022 End: 11-20-2022 Start: 08-05-2022 End: 09-07-2022 Start: 06-18-2022 End: 08-05-2022 Start: 01-05-2022 End: 04-09-2022 Start: 09-29-2020 End: 01-05-2022 Start: 08-23-2020 End: 11-09-2020 Start: 01-23-2018 End: 09-15-2018 Lactobacillus Combination No.4 (Probiotic) 3 billion cell capsule (1 source) Start: 08-16-2021 End: 10-09-2021 take 3 capsules by mouth once daily Lactobacillus Combination No.4 (Probiotic) 3 billion cell capsule Discontinued 3000 MMU CELLS PO Daily August 16, 2021 12:00am October 09, 2021 2:06pm administer with a meal levoFLOXacin 750 mg oral tablet (20 sources) Quinolone Antimicrobial Start: 05-08-2024 End: 05-10-2024 Start: 08-26-2017 End: 09-03-2017 lidocaine 0.05 mg/mg medicated patch (20 sources) Antiarrhythmic, Amide Local Anesthetic Start: 05-10-2024 End: 08-21-2024 Start: 07-13-2023 End: 12-05-2023 Start: 05-18-2019 End: 07-26-2019 lisinopril 40 mg oral tablet (20 sources) Angiotensin Converting Enzyme Inhibitor Start: 03-18-2020 End: 11-15-2024 Start: 12-02-2016 End: 03-18-2020 loperamide hydrochloride 2 m g oral capsule (20 sources) Opioid Agonist Start: 06-12-2022 End: 09-07-2022 lovastatin 10 mg oral tablet (20 sources) HMG-CoA Reductase Inhibitor Start: 12-02-2016 End: 01-15-2018 magnesium oxide 400 mg oral tablet (20 sources) Start: 03-04-2023 End: 05-11-2023 naproxen 500 mg oral tablet (20 sources) Nonsteroidal Anti-inflammatory Drug Start: 05-13-2024 End: 08-21-2024 Start: 11-03-2022 End: 12-28-2023 Start: 08-22-2022 take 1 tablet by wilmer th twice daily as needed for pain naproxen 500 mg oral enteric coated tablet 500 mg = 1 tab(s), Oral, BID, PRN Pain, # 20 tab(s), Refills(s) 0, [facility]acy: [facility] #[id number], 160, cm, 08/22/22 0:30:00 EDT, Height/Length Dosing, 88, kg, 08/22/22 0:30:00 EDT, Weight Dosing Start Date: 08/22/22 Status: Ordered Start: 07-29-2022 End: 08-05-2022 Start: 04-02-2022 End: 04-09-2022 Start: 12-02-2021 End: 01-05-2022 Start: 01-14-2021 End: 05-04-2021 Start: 02-26-2020 End: 03-18-2020 Start: 02-26-2020 End: 03-18-2020 take 1 tablet by mouth every twelve hours Naproxen (Naprosyn) 500 mg tablet Discontinued 500 MG PO Q12H 20 February 26, 2020 1:00am March 18, 2020 8:27pm Start: 06-07-2019 End: 08-07-2019 Start: 10-27-2018 End: 12-17-2018 Start: 10-04-2018 End: 10-05-2018 Start: 12-02-2016 End: 12-23-2016 Nirmatrelvir-Ritonavir (20 sources) Start: 11-20-2022 End: 12-09-2022 Start: 11-20-2022 nitrofurantoin, macrocrystal s 25 mg / nitrofurantoin, monohydrate 75 mg oral capsule (20 sources) Nitrofuran Antibacterial Start: 03-25-2021 End: 04-30-2021 Start: 06-26-2019 End: 06-28-2019 oxybutynin chloride 5 mg ora l tablet (20 sources) Cholinergic Muscarinic Antagonist Start: 02-26-2018 End: 04-03-2018 oxyCODONE hydrochloride 5 mg oral tablet (20 sources) Opioid Agonist Start: 08-06-2023 End: 09-21-2023 Start: 12-09-2022 End: 03-06-2023 phenazopyridine hydrochlorid e 100 mg oral tablet (20 sources) Start: 09-07-2022 End: 11-20-2022 Start: 06-26-2019 End: 07-09-2019 polyethylene glycol 3350 03219 mg powder for oral solution (20 sources) Osmotic Laxative Start: 12-11-2019 End: 01-08-2020 potassium chloride 20 meq extended release oral tablet (20 sources) Start: 12-22-2018 End: 01-27-2019 predniSONE 20 mg oral tablet (20 sources) Start: 10-03-2022 take 1 tablet by mouth once daily predniSONE 20 mg Tab 20 mg = 1 tab(s), Oral, As Directed, take two tabs daily for 5 days, then one tab daily for 5 days., # 15 tab(s), Refills(s) 0, [id number], 160, cm, 10/03/22 1:49:00 EDT, Height/Length Dosing, 93.1, kg, 10/03/22 1:49:00 EDT, Weight Dosing Start Date: 10/03/22 Status: Ordered Start: 08-05-2022 End: 09-07-2022 Start: 12-22-2020 End: 01-11-2021 promethazine hydrochloride 2 5 mg oral tablet (20 sources) Phenothiazine Start: 06-03-2023 End: 12-05-2023 Start: 05-31-2020 End: 01-11-2021 Start: 01-11-2020 End: 03-18-2020 Start: 01-11-2020 End: 03-18-2020 Promethazine Discontinued 25 MG DC Q6H January 11, 2020 12:00am March 18, 2020 8:27pm Start: 12-18-2019 End: 01-08-2020 Start: 12-18-2019 End: 01-08-2020 take 25 mg by mouth every six hours Promethazine Discontinued 25 MG PO Q6H December 18, 2019 12:00am January 08, 2020 10:09pm Start: 01-28-2019 End: 06-25-2019 Start: 01-28-2019 End: 06-25-2019 take 25 mg by mouth every six hours Promethazine Discontinued 25 MG PO Q6H January 28, 2019 12:00am June 25, 2019 11:19pm Start: 08-28-2017 End: 01-15-2018 Start: 08-28-2017 End: 01-15-2018 take 25 mg by mouth every six hours Promethazine Discontinued 25 MG PO Q6H August 28, 2017 12:00am January 15, 2018 9:09pm Start: 07-03-2017 End: 07-07-2017 Start: 07-03-2017 End: 07-07-2017 take 25 mg by mouth every six hours Promethazine Discontinued 25 MG PO Q6H July 03, 2017 12:00am July 07, 2017 10:21pm propranolol hydrochloride 20 mg oral tablet (20 sources) beta-Adrenergic Kehinde Start: 09-21-2023 End: 12-05-2023 Start: 04-09-2022 End: 03-06-2023 Start: 11-04-2019 End: 01-08-2020 sulfamethoxazole 800 mg / trimethoprim 160 mg oral tablet (20 sources) Dihydrofolate Reductase Inhibitor Antibacterial, Sulfonamide Antimicrobial Start: 01-08-2020 End: 01-18-2020 Start: 01-08-2020 End: 01-18-2020 take 1 tablet by mouth twice daily Sulfamethoxazole-Trimethoprim (Bactrim D s) 800-160 mg tablet Discontinued 1 TAB PO Twice daily 14 January 08, 2020 12:00am January 18, 2020 12:13am tamsulosin hydrochloride 0.4 mg oral capsule (20 sources) alpha-Adrenergic Kehinde Start: 07-08-2017 End: 07-13-2017 traMADol hydrochloride 50 mg oral tablet (20 sources) Opioid Agonist Start: 08-05-2017 End: 08-11-2017 traZODone hydrochloride 50 m g oral tablet (20 sources) Serotonin Reuptake Inhibitor Start: 06-12-2022 End: 09-07-2022 (20 sources) Start: 11-13-2022 End: 11-25-2022 Start: 11-13-2022 Start: 09-07-2022 End: 11-20-2022 Start: 09-07-2022 Start: 08-16-2021 End: 10-09-2021 Start: 12-19-2018 End: 06-25-2019 Problems Active Problems Problem Classification Problem Date Documented Da te Episodic/Chronic Abdominal hernia (17 sources) Umbilical hernia 01-15-2020 Episodic Abdominal pain (20 sources) Nonspecific abdominal pain; Translations: [Unspecified abdominal pain] Onset: 2 12-08-2019 Episodic Acute bronchitis (20 sources) Acute bronchitis; Translations: [Acute bronchitis, unspecified] 02-05-2019 Episodic Adjustment disorders (20 sources) Grief finding; Translations: [Adjustment disorder with depressed mood] 10-27-2019 Chronic Administrative/social admission (20 sources) Repeated prescription; Translations: [Encounter for issue of repeat prescription] 09-21-2018 Episodic Allergic reactions (20 sources) Vesicular eczema; Translations: [Other specified dermatitis] 05-12-2022 Episodic Anxiety disorders (20 sources) Anxiety; Translations: [Anxiety disorder, unspecified] 11-09-2018 Chronic Calculus of urinary tract (20 sources) Ureteric colic; Translations: [Unspecified renal colic] Onset: 3 07-02-2017 Episodic Cardiac dysrhythmias (20 sources) Palpitations; Translations: [Palpitations] 12-19-2018 Episodic Chronic obstructive pulmonary disease and bronchiectasis (20 sources) Bronchitis; Translations: [Bronchitis, not specified as acute or chronic] 04-12-2021 Episodic Complication of device; implant or graft (20 sources) Ureteric pain; Translations: [Pain due to genitourinary prosthetic devices, implants and grafts, initial encounter] 07-22-2017 Episodic Conditions associated with dizziness or vertigo (20 sources) Dizziness; Translations: [Dizziness and giddiness] Onset: 4 09-21-2018 Episodic Deficiency and other anemia (20 sources) Iron deficiency anemia; Translations: [Iron deficiency anemia, unspecified] 05-12-2020 Episodic Disorders of lipid metabolism (20 sources) Hyperlipidemia; Translations: [Hyperlipidemia, unspecified] Onset: 4 11-03-2019 Chronic Diverticulosis and diverticulitis (20 sources) Diverticular disease; Translations: [Diverticulosis of intestine, part unspecified, without perforation or abscess without bleeding] 04-21-2019 Chronic Esophageal disorders (20 sources) Gastroesophageal reflux disease; Translations: [Gastro-esophageal reflux disease without esophagitis] 08-07-2022 Chronic Essential hypertension (20 sources) Hypertensive disorder; Translations: [Essential (primary) hypertension] Onset: 4 04-26-2019 Chronic Fluid and electrolyte disorders (20 sources) Hypokalemia; Translations: [Hypokalemia] 12-22-2018 Episodic Gastrointestinal hemorrhage (20 sources) Rectal hemorrhage; Translations: [Hemorrhage of anus and rectum] 03-18-2023 Episodic Genitourinary symptoms and ill-defined conditions (17 sources) Genuine stress incontinence 01-15-2020 Chronic Genitourinary symptoms and ill-defined conditions (20 sources) Blood in urine; Translations: [Hematuria, unspecified] Onset: 5 11-19-2018 Episodic Headache; including migraine (20 sources) Migraine with aura; Translations: [Migraine with aura, not intractable, without status migrainosus] 11-03-2019 Chronic Headache; including migraine (20 sources) Headache; Translations: [Recurrent headache] Onset: 4 01-03-2020 Episodic Headache; including migraine (1 source) Headache; including migraine; Translations: [Headache, unspecified] Onset: Hemorrhoids (20 sources) Hemorrhoids; Translations: [Unspecified hemorrhoids] 03-18-2023 Episodic Hypertension with complications and secondary hypertension (20 sources) Hypertensive urgency ; Translations: [Hypertensive urgency] 04-30-2022 Chronic Immunizations and screening for infectious disease (20 sources) Contact with or exposure to other viral diseases; Translations: [Exposure to 2019-nCoV] 03-08-2021 Episodic Inflammatory diseases of female pelvic organs (20 sources) Abscess of labia; Translations: [Abscess of vulva] 12-13-2020 Episodic Influenza (17 sources) Influenza due to Influenza A virus; Translations: [Influenza due to other identified influenza virus with other respiratory manifestations] 05-10-2024 Episodic Intestinal infection (20 sources) Food poisoning; Translations: [Bacterial foodborne intoxication, unspecified] 10-03-2019 Episodic Malaise and fatigue (1 source) Chronic fatigue, unspecified; Translations: [Chronic fatigue, unspecified] Onset: Chronic Malaise and fatigue (20 sources) Malaise; Translations: [Other malaise] 11-27-2020 Episodic Menopausal disorders (20 sources) Perimenopausal state; Translations: [Menopausal and female climacteric states] 09-03-2020 Chronic Menstrual disorders (20 sources) Menorrhagia; Translations: [Excessive and frequent menstruation with regular cycle] 11-27-2020 Chronic Mood disorders (20 sources) Depressive disorder; Translations: [Depression] 06-09-2022 Chronic Nausea and vomiting (20 sources) Nausea and vomiting; Translations: [Nausea with vomiting, unspecified] 01-11-2020 Episodic Open wounds of extremities (20 sources) Laceration of finger; Translations: [Laceration without foreign body of unspecified finger without damage to nail, initial encounter] 07-06-2021 Episodic Other aftercare (1 source) Other prison (current) drug therapy; Translations: [[facility] [facility] CURRENT DRUG THERAPY] Onset: 3 Episodic Other bone disease and musculoskeletal deformities (20 sources) Costal chondritis; Translations: [Chondrocostal junction syndrome [Tietze]] 10-04-2018 Episodic Other circulatory disease (20 sources) Elevated blood pressure; Translations: [Elevated blood-pressure reading, without diagnosis of hypertension] 06-11-2023 Episodic Other connective tissue disease (20 sources) Muscle pain; Translations: [Myalgia, unspecified site] 02-26-2020 Episodic Other connective tissue disease (20 sources) Pain in left lower limb; Translations: [Pain in left leg] 06-26-2020 Episodic Other connective tissue disease (20 sources) Musculoskeletal pain; Translations: [Myalgia, other site] 05-27-2019 Episodic Other connective tissue disease (20 sources) Pain in lower limb; Translations: [Pain in right leg] 08-05-2022 Episodic Other connective tissue disease (1 source) Pain in right lower limb; Translations: [Pain in right leg] Onset: Episodic Other diseases of kidney and ureters (20 sources) Infectious disorder of kidney; Translations: [Renal tubulo-interstitial disease, unspecified] 08-06-2023 Chronic Other ear and sense organ disorders (9 sources) Otalgia; Translations: [Otalgia, unspecified ear] 08-16-2021 Episodic Other ear and sense organ disorders (20 sources) Impacted cerumen; Translations: [Impacted cerumen, right ear] 03-31-2020 Episodic Other ear and sense organ disorders (20 sources) Pain of ear structure; Translations: [Otalgia, unspecified ear] 08-16-2021 Episodic Other ear and sense organ disorders (10 sources) Impacted cerumen in right ear; Translations: [Impacted cerumen, right ear] 03-31-2020 Episodic Other eye disorders (20 sources) Vitreous floaters; Translations: [Other vitreous opacities, unspecified eye] 01-01-2017 Chronic Other female genital disorders (20 sources) Abnormal uterine bleeding; Translations: [Abnormal uterine and vaginal bleeding, unspecified] Onset: 3 Chronic Other female genital disorders (20 sources) Vaginal irritation; Translations: [Other specified noninflammatory disorders of vagina] 03-14-2022 Episodic Other gastrointestinal disorders (20 sources) Diarrhea; Translations: [Diarrhea, unspecified] Onset: 3 07-15-2017 Episodic Other gastrointestinal disorders (20 sources) Stool color abnormal; Translations: [Other fecal abnormalities] 12-05-2023 Episodic Other injuries and conditions due to external causes (20 sources) Minor head injury; Translations: [Unspecified injury of head, initial encounter] 10-25-2021 Episodic Other injuries and conditions due to external causes (20 sources) Closed injury of head; Translations: [Unspecified injury of head, initial encounter] 08-04-2022 Episodic Other lower respiratory disease (20 sources) Cough; Translations: [Cough] Onset: 2 07-09-2019 Episodic Other lower respiratory disease (20 sources) Rib pain; Translations: [Pleurodynia] 04-11-2023 Episodic Other lower respiratory disease (1 source) Dyspnea; Translations: [Shortness of breath] Onset: 4 Episodic Other nervous system disorders (20 sources) Paresthesia; Translations: [Paresthesia of skin] Onset: 2 06-26-2020 Episodic Other nervous system disorders (20 sources) Paresthesia of foot ; Translations: [Paresthesia of skin] 06-26-2020 Episodic Other nervous system disorders (20 sources) Acute postoperative pain; Translations: [Other acute postprocedural pain] 02-19-2021 Episodic Other nutritional; endocrine; and metabolic disorders (17 sources) Body mass index 30+ - obesity 01-15-2020 Chronic Other nutritional; endocrine; and metabolic disorders (20 sources) Hypomagnesemia; Translations: [Hypomagnesemia] 03-04-2023 Chronic Other skin disorders (20 sources) Hair follicle disorder; Translations: [Follicular disorder, unspecified] 09-10-2020 Episodic Other skin disorders (18 sources) Sweating 10-07-2023 Episodic Other upper respiratory disease (20 sources) Congestion of nasal sinus; Translations: [Nasal congestion] 04-17-2021 Episodic Other upper respiratory disease (20 sources) Nasal sinus problem; Translations: [Other specified disorders of nose and nasal sinuses] 12-03-2018 Episodic Other upper respiratory disease (20 sources) Other specified disorders of nose and nasal sinuses; Translations: [Sinus pressure] 12-03-2018 Episodic Other upper respiratory infections (20 sources) Sinusitis; Translations: [Chronic sinusitis, unspecified] 12-22-2020 Chronic Otitis media and related conditions (20 sources) Otitis media; Translations: [Otitis media, unspecified, unspecified ear] Onset: 4 10-28-2020 Episodic Ovarian cyst (20 sources) Cyst of ovary; Translations: [Unspecified ovarian cyst, unspecified side] 10-24-2022 Episodic Pneumonia (except that caused by tuberculosis or sexually transmitted disease) (18 sources) Pneumonia; Translations: [Pneumonia, unspecified organism] 05-08-2024 Episodic Residual codes; unclassified (20 sources) Generalized aches and pains; Translations: [Pain, unspecified] 11-20-2022 Episodic Residual codes; unclassified (1 source) Pain; Translations: [Pain, unspecified] Onset: 3 Episodic Residual codes; unclassified (20 sources) Flushing; Translations: [Flushing] 09-29-2023 Episodic Screening and history of mental health and substance abuse codes (1 source) Personal history of nicotine dependence; Translations: [PERSONAL HISTORY OF NICOTINE DEPEND] Onset: 3 Episodic Spondylosis; intervertebral disc disorders; other back problems (20 sources) Sciatica; Translations: [Sciatica, unspecified side] Onset: 5 08-20-2022 Episodic Sprains and strains (20 sources) Sprain of foot; Translations: [Unspecified sprain of right foot, initial encounter] 01-05-2022 Episodic Substance-related disorders (18 sources) Smoker; Translations: [Nicotine dependence, cigarettes, uncomplicated] Onset: 3 01-15-2020 Chronic Comment on above: Added secondary to d ocumentation in Social History. Suicide and intentional self-inflicted injury (20 sources) Suicidal thoughts; Translations: [Suicidal ideations] 06-09-2022 Episodic Superficial injury; contusion (16 sources) Contusion of right knee; Translations: [Contusion of right knee, initial encounter] 05-13-2024 Episodic Syncope (20 sources) Near syncope; Translations: [Syncope and collapse] 12-05-2023 Episodic Unclassified (17 sources) Asymptomatic microscopic hematuria 01-15-2020 Unclassified (2 sources) COUGH, UNSPECIFIED; Translations: [COUGH, UNSPECIFIED] Onset: 3 Unclassified (1 source) Cough, unspecified; Translations: [Cough, unspecified] Onset: 5 Urinary tract infections (20 sources) Urinary tract infectious disease; Translations: [Urinary tract infection, site not specified] 06-25-2017 Episodic Viral infection (20 sources) Disease caused by 2019-nCoV; Translations: [COVID-19] Onset: 3 04-04-2021 Episodic Past or Other Problems Problem Classification Problem Date Documented Date Episodic/Chronic Deficiency and other anemia (1 source) Anemia, unspecified; Translations: [Anemia, unspecified] Onset: 02-29-2024 Episodic Disorders of teeth and jaw (20 sources) Dental caries; Translations: [Dental caries, unspecified] Onset: 12-05-2021 10-16-2020 Episodic Noninfectious gastroenteritis (20 sources) Gastroenteritis; Translations: [Noninfective gastroenteritis and colitis, unspecified] Onset: 01-28-2022 10-29-2020 Episodic Nonspecific chest pain (20 sources) Chest wall pain; Translations: [Other chest pain] Onset: 09-18-2022 06-27-2021 Episodic Other connective tissue disease (1 source) Myalgia, other site; Translations: [Myalgia, other site] Onset: 02-29-2024 Episodic Other lower respiratory disease (1 source) Shortness of breath; Translations: [Shortness of breath] Onset: 02-14-2024 Episodic Other nervous system disorders (1 source) Paresthesia of skin; Translations: [Paresthesia of skin] Onset: 02-29-2024 Episodic Other non-traumatic joint disorders (1 source) Pain in right knee; Translations: [Pain in right knee] Onset: 05-13-2024 Episodic Other upper respiratory disease (1 source) Nasal congestion; Translations: [Nasal congestion] Onset: 06-10-2024 Episodic Other upper respiratory infections (20 sources) Acute rhinosinusitis; Translations: [Acute sinusitis, unspecified] Onset: 02-04-2022 11-19-2020 Episodic Pleurisy; pneumothorax; pulmonary collapse (20 sources) Atelectasis; Translations: [Atelectasis] Onset: 05-08-2024 10-08-2021 Episodic Unclassified (1 source) COUGH, UNSPECIFIED; Translations: [COUGH, UNSPECIFIED] Onset: 07-14-2022 Unclassified (16 sources) Sweating; Translations: [Hidrosis] 09-29-2023 Results Test Name Value Interpretation Reference Range Facility Appearance of UrineOrdered B y: John Cortes on 12-15-2024 Appearance (U) Clear Normal Clear [facility] Comment on above: Order Comment: Name Collection Type:: Clean-Voided Midstream Performed By: #### A DDONUAPLUS ####[facility] [id number] [place] [address] [facility] Bacteria [Presence] in Urine by AutomatedOrdered By: John Cortes on 12-15-2024 Bacteria Auto Ql (U) Rare [HPF] None Seen [facility] Bilirubin Test strip Ql (U)O rdered By: John Cortes on 12-15-2024 Bilirubin Ql (U) Negative Negative [facility] Casts [Presence] in Urine by AutomatedOrdered By: John Cortes on 12-15-2024 Casts Auto Ql (U) 1-2 [LPF] High None Seen [facility] Color of Urine by AutoOrdere d By: John Cortes on 12-15-2024 Color (U) Light-yellow Normal Yellow [facility] Comment on above: Order Comment: Name Collection Type:: Clean-Voided Midstream Performed By: #### A DDONUAPLUS ####[facility] [id number] [place] [address] [facility] Dipstick and Microscopicon 0 12-15-2024 Bacteria,Urine Rare Normal None Seen [facility] Comment on above: Order Comment: Name Collection Type:: Clean-Voided Midstream Performed By: #### A DDONUAPLUS ####[address] [address] [facility] Bilirubin,Urine Negative Normal Negative [facility] Comment on above: Order Comment: Name Collection Type:: Clean-Voided Midstream Performed By: #### A DDONUAPLUS ####[address] [address] [facility] Glucose Ql (U) Normal Normal Normal [facility] Comment on above: Order Comment: Name Collection Type:: Clean-Voided Midstream Performed By: #### A DDONUAPLUS ####[address] [address] [facility] Hyaline Casts,Urine 0-8 Normal 0-8 [facility] Comment on above: Order Comment: Name Collection Type:: Clean-Voided Midstream Performed By: #### A DDONUAPLUS ####[address] [address] [facility] Mucus,Urine Rare Normal [facility] Comment on above: Order Comment: Name Collection Type:: Clean-Voided Midstream Result Comment: PERF ORMED BY:[address] GAUTHIERSladeT[place]MAY, [place] [id number] MEDICAL SHAINA COLMENARES M.D. Performed By: #### A DDONUAPLUS ####[address] [address] [facility] Nitrite,Urine Negative Normal Negative [facility] Comment on above: Order Comment: Name Collection Type:: Clean-Voided Midstream Performed By: #### A DDONUAPLUS ####[address] [address] [facility] Occult Blood,Urine 1+ Normal Negative [facility] Comment on above: Order Comment: Name Collection Type:: Clean-Voided Midstream Result Comment: PERF ORMED BY:[place] [address] [place] GAUTHI[place], [place] [phone] MEDICAL SHAINA COLMENARES M.D. Performed By: #### A DDONUAPLUS ####[address] [address] [facility] Other Casts,Urine 1-2 Normal None Seen [facility] Comment on above: Order Comment: Name Collection Type:: Clean-Voided Midstream Performed By: #### A DDONUAPLUS ####[address] [address] [facility] Protein,Urine Negative Normal Negative [facility] Comment on above: Order Comment: Name Collection Type:: Clean-Voided Midstream Performed By: #### A DDONUAPLUS ####[address] [address] [facility] RBC,Urine 1-2 Normal 0-4 [facility] Comment on above: Order Comment: Name Collection Type:: Clean-Voided Midstream Performed By: #### A DDONUAPLUS ####[place] [id number] [facility] Specificy [place],Urine 1.014 Normal 1.001-1.030 [facility] Comment on above: Order Comment: Name Collection Type:: Clean-Voided Midstream Performed By: #### A DDONUAPLUS ####[address] [address] [facility] Squamous Epithelial Cell,Urine 5-9 Normal 0-2 [facility] Comment on above: Order Comment: Name Collection Type:: Clean-Voided Midstream Performed By: #### A DDONUAPLUS ####[address] [address] [facility] Urobilinogen,Urine Normal Normal Normal [facility] Comment on above: Order Comment: Name Collection Type:: Clean-Voided Midstream Performed By: #### A DDONUAPLUS ####[place] [id number] [facility] WBC,Urine 1-2 Normal 0-4 [facility] Comment on above: Order Comment: Name Collection Type:: Clean-Voided Midstream Performed By: #### A DDONUAPLUS ####[address] [address] [facility] Epithelial cells.squamous [# /area] in Urine sediment by Automated countOrdered By: John Cortes on 12-15-2024 Epithelial cells.squamous Auto (Urine sed) [#/Area] 5-9 [HPF] High 0-2 [facility] Erythrocytes [#/area] in Uri ne sediment by Automated countOrdered By: John Cortes on 12-15-2024 RBC Auto (Urine sed) [#/Area] 1-2 [HPF] 0-4 [facility] Glucose [Mass/volume] in Uri ne by Test stripOrdered By: John Cortes on 12-15-2024 Glucose Test strip (U) [Mass/Vol] Normal mg/dL Normal [facility] Hemoglobin Test strip Ql (U) Ordered By: John Cortes on 12-15-2024 Hemoglobin Ql (U) 1+ High Negative [facility] Hyaline casts [#/area] in Ur ine sediment by Automated countOrdered By: John Cortes on 12-15-2024 Hyaline casts Auto (Urine sed) [#/Area] 0-8 [LPF] 0-8 [facility] Ketones [Presence] in Urine by Test stripOrdered By: John Cortes on 12-15-2024 Ketones Ql (U) Negative Normal Negative [facility] Comment on above: Order Comment: Name Collection Type:: Clean-Voided Midstream Performed By: #### A DDONUAPLUS ####[facility] [id number] Leukocyte esterase [Presence ] in Urine by Test stripOrdered By: John Cortes on 12-15-2024 Leukocyte esterase Test strip Ql (U) Negative Normal Negative [facility] Comment on above: Order Comment: Name Collection Type:: Clean-Voided Midstream Performed By: #### A DDONUAPLUS ####[facility] [id number] [place] [address] [place] Leukocytes [#/area] in Urine sediment by Automated countOrdered By: John Cortes on 12-15-2024 WBC Auto (Urine sed) [#/Area] 1-2 [HPF] 0-4 [facility] Mucus [Presence] in Urine by AutomatedOrdered By: John Cortes on 12-15-2024 Mucus Auto Ql (U) Rare [LPF] [facility] Nitrite Test strip Ql (U)Ord ered By: John Cortes on 12-15-2024 Nitrite Ql (U) Negative Negative [facility] Protein Test strip (U) [Mass /Vol]Ordered By: John Cortes on 12-15-2024 Protein (U) [Mass/Vol] Negative Negative [facility] Specific gravity Test strip (U) [Rel density]Ordered By: John Cortes on 12-15-2024 Specific gravity (U) [Rel density] 1.014 1.001-1.030 [facility] Urobilinogen Test strip (U) [Mass/Vol]Ordered By: John Cortes on 12-15-2024 Urobilinogen (U) [Mass/Vol] Normal mg/dL Normal [facility] pH of Urine by Test stripOrd ered By: John Cortes on 12-15-2024 pH (U) 5.5 [pH] Normal 5.0-9.0 [facility] Comment on above: Order Comment: Name Collection Type:: Clean-Voided Midstream Performed By: #### A DDONUAPLUS ####[place] [id number] Alanine aminotransferase [En zymatic activity/volume] in Serum or PlasmaOrdered By: PROVIDER TEMP on 12-14-2024 ALT [Catalytic activity/Vol] 19 U/L Normal 7-52 [facility] Comment on above: Performed By: #### L IPASE, CBC, HEPATIC, BMP ####[facility] [id number] [place] [address] [place] Albumin [Mass/volume] in Ser um or Plasma by Bromocresol green (BCG) dye binding methoOrdered By: PROVIDER TEMP on 12-14-2024 Albumin BCG dye [Mass/Vol] 4.6 g/dL 3.5-5.7 [facility] Alkaline phosphatase [Enzyma tic activity/volume] in Serum or PlasmaOrdered By: PROVIDER TEMP on 12-14-2024 ALP [Catalytic activity/Vol] 89 U/L Normal 34-104 [facility] Comment on above: Performed By: #### L IPASE, CBC, HEPATIC, BMP ####[place] [id number] [place] [address] [facility] Aspartate aminotransferase [ Enzymatic activity/volume] in Serum or PlasmaOrdered By: PROVIDER TEMP on 12-14-2024 AST [Catalytic activity/Vol] 16 U/L Normal 13-39 [facility] Comment on above: Performed By: #### L IPASE, CBC, HEPATIC, BMP ####[address] [address] [facility] Basic Metabolic Panelon 11-30 Creatinine Clr Calc Pharmacy 68.06 Normal [facility] Comment on above: Performed By: #### L IPASE, CBC, HEPATIC, BMP ####[place] [id number] [facility] GFR/1.73 sq M.predicted MDRD (S/P/Bld) [Vol rate/Area] mL/min/{1.73_m2} Normal [facility] Comment on above: Performed By: #### L IPASE, CBC, HEPATIC, BMP ####[place] [id number] [facility] Basophils [#/volume] in Bloo d by Automated countOrdered By: PROVIDER TEMP on 12-14-2024 Basophils (Bld) [#/Vol] 0.0 10*3/uL Normal 0.0-0.2 [facility] Comment on above: Result Comment: PERF ORMED BY:[address] [place], [place] [id number] MEDICAL SHAINA COLMENARES M.D. Performed By: #### L IPASE, CBC, HEPATIC, BMP ####[address] [address] [facility] Basophils/100 leukocytes in Blood by Automated countOrdered By: PROVIDER TEMP on 12-14-2024 Basophils/100 WBC (Bld) 0.5 % Normal . [facility] Comment on above: Performed By: #### L IPASE, CBC, HEPATIC, BMP ####[address] [address] [facility] Bilirubin.direct [Mass/volum e] in Serum or PlasmaOrdered By: PROVIDER TEMP on 12-14-2024 Bilirubin.direct [Mass/Vol] 0.10 mg/dL 0.03-0.18 [facility] Bilirubin.total [Mass/volume ] in Serum or PlasmaOrdered By: PROVIDER TEMP on 12-14-2024 Bilirubin [Mass/Vol] 0.4 mg/dL Normal 0.3-1.0 [facility] Comment on above: Performed By: #### L IPASE, CBC, HEPATIC, BMP ####[place] [id number] [facility] Calcium [Mass/volume] in Ser um or PlasmaOrdered By: PROVIDER TEMP on 12-14-2024 Calcium [Mass/Vol] 10.1 mg/dL Normal 8.6-10.3 [facility] Comment on above: Performed By: #### L IPASE, CBC, HEPATIC, BMP ####[address] Carbon dioxide, total [Moles /volume] in Serum or PlasmaOrdered By: PROVIDER TEMP on 12-14-2024 CO2 [Moles/Vol] 28.4 mmol/L Normal 21.0-31.0 [facility] Comment on above: Performed By: #### L IPASE, CBC, HEPATIC, BMP ####[place] [id number] [facility] Chloride [Moles/volume] in S jett or PlasmaOrdered By: PROVIDER TEMP on 12-14-2024 Chloride [Moles/Vol] 100 mmol/L Normal 98-107 [facility] Comment on above: Performed By: #### L IPASE, CBC, HEPATIC, BMP ####[place] [id number] [facility] Complete Blood Count Auto Di ffon 12-14-2024 Mean Corpuscular HGB Conc 34.3 g/dL Normal 32.0-35.0 [facility] Comment on above: Performed By: #### L IPASE, CBC, HEPATIC, BMP ####[place] [id number] [facility] Monocytes/100 WBC (Bld) 18.08 % Normal 0.00-20.00 T luna [facility] Comment on above: Performed By: #### L IPASE, CBC, HEPATIC, BMP ####[address] NRBC% 0.0 /100{WBC} Normal 0-0.5 [facility] Comment on above: Performed By: #### L IPASE, CBC, HEPATIC, BMP ####[address] White Blood Count 9.9 [CFU]/mL Normal 3.8-11.6 [facility] Comment on above: Performed By: #### L IPASE, CBC, HEPATIC, BMP ####[address] Creatinine [Mass/volume] in Serum or PlasmaOrdered By: PROVIDER TEMP on 12-14-2024 Creatinine [Mass/Vol] 1.04 mg/dL Normal 0.60-1.20 [facility] Comment on above: Performed By: #### L IPASE, CBC, HEPATIC, BMP ####[address] ECG 12 lead ECGon 12-14-2024 ECG 12 lead ECG Normal [facility] Eosinophils [#/volume] in Bl ood by Automated countOrdered By: PROVIDER TEMP on 12-14-2024 Eosinophils (Bld) [#/Vol] 0.3 10*3/uL Normal 0.0-0.45 [facility] Comment on above: Performed By: #### L IPASE, CBC, HEPATIC, BMP ####[address] Eosinophils/100 leukocytes i n Blood by Automated countOrdered By: PROVIDER TEMP on 12-14-2024 Eosinophils/100 WBC (Bld) 2.9 % Normal . [facility] Comment on above: Performed By: #### L IPASE, CBC, HEPATIC, BMP ####[address] Erythrocyte distribution wid th [Ratio] by Automated countOrdered By: PROVIDER TEMP on 12-14-2024 Erythrocyte distribution width (RBC) [Ratio] 13.7 % Normal 11.9-15.3 [facility] Comment on above: Performed By: #### L IPASE, CBC, HEPATIC, BMP ####[place] [id number] [place] [id number] [facility] Erythrocytes [#/volume] in B lood by Automated countOrdered By: PROVIDER TEMP on 12-14-2024 RBC (Bld) [#/Vol] 4.75 10*6/uL Normal 3.60-5.00 [facility] Comment on above: Performed By: #### L IPASE, CBC, HEPATIC, BMP ####[place] [id number] [facility] Glomerular filtration rate [ Volume Rate/Area] in Serum, Plasma or Blood by CreatinineOrdered By: PROVIDER TEMP on 12-14-2024 Glomerular filtration rate [Volume Rate/Area] in Serum, Plasma or Blood by Creatinine > 60.0 mL/Min [facility] Glucose [Mass/volume] in Ser um or PlasmaOrdered By: PROVIDER TEMP on 12-14-2024 Glucose [Mass/Vol] 118 mg/dL High 70-100 [facility] Comment on above: Result Comment: [facility] Glucose Reference Range is dependent on time and content of last meal. Glucose of more than 200 mg/dL in a nonstressed, ambulatory subject supports the diagnosis of Diabetes Mellitus. ADA recommended reference range Performed By: #### L IPASE, CBC, HEPATIC, BMP ####[address] [address] [facility] Hematocrit [Volume Fraction] of Blood by Automated countOrdered By: PROVIDER TEMP on 12-14-2024 Hematocrit (Bld) [Volume fraction] 42.2 % Normal 34.0-46.4 [facility] Comment on above: Performed By: #### L IPASE, CBC, HEPATIC, BMP ####[place] [id number] [facility] Hemoglobin [Mass/volume] in BloodOrdered By: PROVIDER TEMP on 12-14-2024 Hemoglobin (Bld) [Mass/Vol] 14.5 g/dL Normal 11.8-15.4 [facility] Comment on above: Performed By: #### L IPASE, CBC, HEPATIC, BMP ####[place] [id number] Hepatic Panelon 12-14-2024 Albumin [Mass/Vol] 4.6 g/dL Normal 3.5-5.7 [facility] Comment on above: Performed By: #### L IPASE, CBC, HEPATIC, BMP ####[address] Bilirubin,Indirect 0.3 mg/dL Normal [facility] Comment on above: Performed By: #### L IPASE, CBC, HEPATIC, BMP ####[address] Bilirubin.indirect [Mass/Vol] 0.10 mg/dL Normal 0.03-0.18 [facility] Comment on above: Performed By: #### L IPASE, CBC, HEPATIC, BMP ####[address] Leukocytes [#/volume] correc jacki for nucleated erythrocytes in Blood by Automated counOrdered By: PROVIDER TEMP on 12-14-2024 WBC corrected for nucl RBC Auto (Bld) [#/Vol] 9.9 10*3/uL 3.8-11.6 [facility] Leukocytes [#/volume] in Blo od by Automated countOrdered By: PROVIDER TEMP on 12-14-2024 WBC (Bld) [#/Vol] 9.9 10*3/uL Normal 3.8-11.6 [facility] Comment on above: Performed By: #### L IPASE, CBC, HEPATIC, BMP ####[address] Lipase [Enzymatic activity/v olume] in Serum or PlasmaOrdered By: PROVIDER TEMP on 12-14-2024 Lipase [Catalytic activity/Vol] 86.0 U/L High 11.0-82.0 [facility] Comment on above: Result Comment: PERF ORMED BY:[address] [place], [place] [phone] MEDICAL DIRECTORSUZY COLMENARES M.D. Performed By: #### L IPASE, CBC, HEPATIC, BMP ####[address] Lymphocytes [#/volume] in Bl ood by Automated countOrdered By: PROVIDER TEMP on 12-14-2024 Lymphocytes (Bld) [#/Vol] 2.4 10*3/uL Normal 1.00-4.8 [facility] Comment on above: Performed By: #### L IPASE, CBC, HEPATIC, BMP ####[address] Lymphocytes/100 leukocytes i n Blood by Automated countOrdered By: PROVIDER TEMP on 12-14-2024 Lymphocytes/100 WBC (Bld) 23.9 % Normal . [facility] Comment on above: Performed By: #### L IPASE, CBC, HEPATIC, BMP ####[address] MCH [Entitic mass] by Automa jacki countOrdered By: PROVIDER TEMP on 12-14-2024 MCH (RBC) [Entitic mass] 30.4 pg Normal 24.7-34.3 [facility] Comment on above: Performed By: #### L IPASE, CBC, HEPATIC, BMP ####[address] MCHC Auto (RBC) [Mass/Vol]Or dered By: PROVIDER TEMP on 12-14-2024 MCHC (RBC) [Mass/Vol] 34.3 g/dL 32.0-35.0 [facility] MCV [Entitic volume] by Auto mated countOrdered By: PROVIDER TEMP on 12-14-2024 MCV (RBC) [Entitic vol] 88.8 fL Normal 80-100 [facility] Comment on above: Performed By: #### L IPASE, CBC, HEPATIC, BMP ####[address] Monocyte distribution width [Entitic volume] in Blood by AutomatedOrdered By: PROVIDER TEMP on 12-14-2024 Monocyte distribution width Auto (Bld) [Entitic vol] 18.08 % 0.00-20.00 [facility] Monocytes [#/volume] in Bloo d by Automated countOrdered By: PROVIDER TEMP on 12-14-2024 Monocytes (Bld) [#/Vol] 0.6 10*3/uL Normal 0.0-0.8 [facility] Comment on above: Performed By: #### L IPASE, CBC, HEPATIC, BMP ####[place] [id number] Monocytes/100 leukocytes in Blood by Automated countOrdered By: PROVIDER TEMP on 12-14-2024 Monocytes/100 WBC (Bld) 5.6 % Normal . [facility] Comment on above: Performed By: #### L IPASE, CBC, HEPATIC, BMP ####[address] Neutrophils [#/volume] in Bl ood by Automated countOrdered By: PROVIDER TEMP on 12-14-2024 Neutrophils (Bld) [#/Vol] 6.7 10*3/uL Normal 1.8-7.7 [facility] Comment on above: Performed By: #### L IPASE, CBC, HEPATIC, BMP ####[address] Neutrophils/100 leukocytes i n Blood by Automated countOrdered By: PROVIDER TEMP on 12-14-2024 Neutrophils/100 WBC (Bld) 67.1 % Normal . [facility] Comment on above: Performed By: #### L IPASE, CBC, HEPATIC, BMP ####[address] No Panel InformationOrdered By: PROVIDER TEMP on 12-14-2024 68.06 [facility] Nucleated erythrocytes [Pres ence] in Blood by Automated countOrdered By: PROVIDER TEMP on 12-14-2024 Nucleated RBC Auto Ql (Bld) 0.0 /100{WBC} 0-0.5 [facility] Platelet mean volume [Entiti c volume] in Blood by Automated countOrdered By: PROVIDER TEMP on 12-14-2024 Platelet mean volume (Bld) [Entitic vol] 8.0 fL Normal 6.3-10.7 [facility] Comment on above: Performed By: #### L IPASE, CBC, HEPATIC, BMP ####[address] Platelets [#/volume] in Bloo d by Automated countOrdered By: PROVIDER TEMP on 12-14-2024 Platelets (Bld) [#/Vol] 380 10*3/uL Normal 150-450 [facility] Comment on above: Performed By: #### L IPASE, CBC, HEPATIC, BMP ####[address] Potassium [Moles/volume] in Serum or PlasmaOrdered By: PROVIDER TEMP on 12-14-2024 Potassium [Moles/Vol] 3.4 mmol/L Low 3.5-5.1 [facility] Comment on above: Performed By: #### L IPASE, CBC, HEPATIC, BMP ####[address] Protein [Mass/volume] in Ser um or PlasmaOrdered By: PROVIDER TEMP on 12-14-2024 Protein [Mass/Vol] 7.7 g/dL Normal 6.4-8.9 [facility] Comment on above: Performed By: #### L IPASE, CBC, HEPATIC, BMP ####[place] [id number] [facility] Serum globulin measurement b y calculation (mass/volume)Ordered By: PROVIDER TEMP on 12-14-2024 Globulin (S) [Mass/Vol] 3.1 g/dL Normal [facility] Comment on above: Performed By: #### L IPASE, CBC, HEPATIC, BMP ####[place] [id number] [facility] Serum or plasma albumin/glob ulin mass ratioOrdered By: PROVIDER TEMP on 12-14-2024 Albumin/Globulin [Mass ratio] 1.5 {ratio} Normal [facility] Comment on above: Performed By: #### L IPASE, CBC, HEPATIC, BMP ####[address] Serum or plasma anion gap de terminationOrdered By: PROVIDER TEMP on 12-14-2024 Anion gap [Moles/Vol] 15.0 mmol/L Normal 6.0-15.0 [facility] Comment on above: Performed By: #### L IPASE, CBC, HEPATIC, BMP ####[address] Serum or plasma non-glucuron idated bilirubin measurement (mass/volume)Ordered By: PROVIDER TEMP on 12-14-2024 Bilirubin.indirect [Mass/Vol] 0.3 mg/dL [facility] Sodium [Moles/volume] in Ser um or PlasmaOrdered By: PROVIDER TEMP on 12-14-2024 Sodium [Moles/Vol] 140 mmol/L Normal 136-145 [facility] Comment on above: Performed By: #### L IPASE, CBC, HEPATIC, BMP ####[address] Urea nitrogen [Mass/volume] in Serum or PlasmaOrdered By: PROVIDER TEMP on 12-14-2024 Urea nitrogen [Mass/Vol] 18 mg/dL Normal 7-25 [facility] Comment on above: Performed By: #### L IPASE, CBC, HEPATIC, BMP ####[address] Appearance of UrineOrdered B y: John Cortes on 12-04-2024 Appearance (U) Clear Normal Clear [facility] Comment on above: Order Comment: Name Collection Type:: Voided Performed By: #### A DDONUAPLUS ####[address] Bacteria [Presence] in Urine by AutomatedOrdered By: John Cortes on 12-04-2024 Bacteria Auto Ql (U) Rare [HPF] None Seen [facility] Bilirubin Test strip Ql (U)O rdered By: John Cortes on 12-04-2024 Bilirubin Ql (U) Negative Negative [facility] CT abdomen pelvis wo conon 0 12-04-2024 CT abdomen pelvis wo con Normal [facility] Color of Urine by AutoOrdere d By: John Cortes on 12-04-2024 Color (U) Light-yellow Normal Yellow [facility] Comment on above: Order Comment: Name Collection Type:: Voided Performed By: #### A DDONUAPLUS ####[address] [address] [facility] Dipstick and Microscopicon 0 12-04-2024 Bacteria,Urine Rare Normal None Seen [facility] Comment on above: Order Comment: Name Collection Type:: Voided Performed By: #### A DDONUAPLUS ####[address] [address] [facility] Bilirubin,Urine Negative Normal Negative [facility] Comment on above: Order Comment: Name Collection Type:: Voided Performed By: #### A DDONUAPLUS ####[address] [address] [facility] Glucose Ql (U) Normal Normal Normal [facility] Comment on above: Order Comment: Name Collection Type:: Voided Performed By: #### A DDONUAPLUS ####[address] [address] [facility] Hyaline Casts,Urine 0-8 Normal 0-8 [facility] Comment on above: Order Comment: Name Collection Type:: Voided Performed By: #### A DDONUAPLUS ####[address] [address] [facility] Mucus,Urine Rare Normal [facility] Comment on above: Order Comment: Name Collection Type:: Voided Result Comment: PERF ORMED BY:[address] [place], [place] [phone] MEDICAL SHAINA COLMENARES M.D. Performed By: #### A DDONUAPLUS ####[address] [address] [place] Nitrite,Urine Negative Normal Negative [facility] Comment on above: Order Comment: Name Collection Type:: Voided Performed By: #### A DDONUAPLUS ####[address] [address] [facility] Occult Blood,Urine 1+ Normal Negative [facility] Comment on above: Order Comment: Name Collection Type:: Voided Result Comment: PERF ORMED BY:[address] [place], [place] [phone] MEDICAL SHAINA COLMENARES M.D. Performed By: #### A DDONUAPLUS ####[address] [address] [facility] Protein,Urine Negative Normal Negative [facility] Comment on above: Order Comment: Name Collection Type:: Voided Performed By: #### A DDONUAPLUS ####[address] [address] [facility] RBC,Urine 1-2 Normal 0-4 [facility] Comment on above: Order Comment: Name Collection Type:: Voided Performed By: #### A DDONUAPLUS ####[address] [address] [place] Specificy [place],Urine 1.013 Normal 1.001-1.030 [facility] Comment on above: Order Comment: Name Collection Type:: Voided Performed By: #### A DDONUAPLUS ####[address] [address] [place] Squamous Epithelial Cell,Urine 1-2 Normal 0-2 [facility] Comment on above: Order Comment: Name Collection Type:: Voided Performed By: #### A DDONUAPLUS ####[address] [address] [place] Urobilinogen,Urine Normal Normal Normal [facility] Comment on above: Order Comment: Name Collection Type:: Voided Performed By: #### A DDONUAPLUS ####[address] [address] [place] WBC,Urine 1-2 Normal 0-4 [facility] Comment on above: Order Comment: Name Collection Type:: Voided Performed By: #### A DDONUAPLUS ####[facility] [id number] ECG 12 lead ECGon 12-04-2024 ECG 12 lead ECG Normal [facility] Epithelial cells.squamous [# /area] in Urine sediment by Automated countOrdered By: John Cortes on 12-04-2024 Epithelial cells.squamous Auto (Urine sed) [#/Area] 1-2 [HPF] 0-2 [facility] Erythrocytes [#/area] in Uri ne sediment by Automated countOrdered By: John Cortes on 12-04-2024 RBC Auto (Urine sed) [#/Area] 1-2 [HPF] 0-4 [facility] Glucose [Mass/volume] in Uri ne by Test stripOrdered By: John Cortes on 12-04-2024 Glucose Test strip (U) [Mass/Vol] Normal mg/dL Normal [facility] Hemoglobin Test strip Ql (U) Ordered By: John Cortes on 12-04-2024 Hemoglobin Ql (U) 1+ High Negative [facility] Hyaline casts [#/area] in Ur ine sediment by Automated countOrdered By: John Cortes on 12-04-2024 Hyaline casts Auto (Urine sed) [#/Area] 0-8 [LPF] 0-8 [facility] Ketones [Presence] in Urine by Test stripOrdered By: John Cortes on 12-04-2024 Ketones Ql (U) Negative Normal Negative [facility] Comment on above: Order Comment: Name Collection Type:: Voided Performed By: #### A DDONUAPLUS ####[place] [id number] [facility] Leukocyte esterase [Presence ] in Urine by Test stripOrdered By: John Cortes on 12-04-2024 Leukocyte esterase Test strip Ql (U) Negative Normal Negative [facility] Comment on above: Order Comment: Name Collection Type:: Voided Performed By: #### A DDONUAPLUS ####[address] Leukocytes [#/area] in Urine sediment by Automated countOrdered By: John Cortes on 12-04-2024 WBC Auto (Urine sed) [#/Area] 1-2 [HPF] 0-4 [facility] Mucus [Presence] in Urine by AutomatedOrdered By: John Cortes on 12-04-2024 Mucus Auto Ql (U) Rare [LPF] [facility] Nitrite Test strip Ql (U)Ord ered By: John Cortes on 12-04-2024 Nitrite Ql (U) Negative Negative [facility] Protein Test strip (U) [Mass /Vol]Ordered By: John Cortes on 12-04-2024 Protein (U) [Mass/Vol] Negative Negative [facility] Specific gravity Test strip (U) [Rel density]Ordered By: John Cortes on 12-04-2024 Specific gravity (U) [Rel density] 1.013 1.001-1.030 [facility] Urobilinogen Test strip (U) [Mass/Vol]Ordered By: John Cortes on 12-04-2024 Urobilinogen (U) [Mass/Vol] Normal mg/dL Normal [facility] pH of Urine by Test stripOrd ered By: John Cortes on 12-04-2024 pH (U) 5.5 [pH] Normal 5.0-9.0 [facility] Comment on above: Order Comment: Name Collection Type:: Voided Performed By: #### A DDONUAPLUS ####[place] [id number] [facility] Appearance of UrineOrdered B y: Rebecca Marmolejo on 12-01-2024 Appearance (U) Clear Normal Clear [facility] Comment on above: Order Comment: Name Collection Type:: Clean-Voided Midstream Performed By: #### A DDONUAPLUS ####[address] [address] [place] Bacteria [Presence] in Urine by AutomatedOrdered By: Rebecca Marmolejo on 12-01-2024 Bacteria Auto Ql (U) None seen [HPF] None Seen [facility] Basic Metabolic Panelon Creatinine Clr Calc Pharmacy 101.85 Normal [facility] Comment on above: Result Comment: PERF ORMED BY:[place] [address] [id number] MEDICAL SHAINA COLMENARES M.D. Performed By: #### B MP, CBC, HS TROP ####[address] [address] [facility] GFR/1.73 sq M.predicted MDRD (S/P/Bld) [Vol rate/Area] mL/min/{1.73_m2} Normal [facility] Comment on above: Performed By: #### B MP, CBC, HS TROP ####[place] [address] [place] [address] [facility] Basophils [#/volume] in Bloo d by Automated countOrdered By: Rebecca Marmolejo on 12-01-2024 Basophils (Bld) [#/Vol] 0.0 10*3/uL Normal 0.0-0.2 [facility] Comment on above: Result Comment: PERF ORMED BY:[address] [place], [place] [phone] MEDICAL SHAINA COLMENARES M.D. Performed By: #### B MP, CBC, HS TROP ####[address] [address] [facility] Basophils/100 leukocytes in Blood by Automated countOrdered By: Rebecca Marmolejo on 12-01-2024 Basophils/100 WBC (Bld) 0.6 % Normal . [facility] Comment on above: Performed By: #### B MP, CBC, HS TROP ####[address] [address] [facility] Bilirubin Test strip Ql (U)O rdered By: Rebecca Marmolejo on 12-01-2024 Bilirubin Ql (U) Negative Negative [facility] COVID Cepheid NegativeOrdere d By: Rebecca Marmolejo on 12-01-2024 SARS-CoV-2 (COVID-19) RNA EMI+probe Ql (Unsp spec) Negative Normal Negative [facility] Comment on above: Result Comment: This is a duplicate Cepheid Xpert Xpress CoV-2/Flu/RSV Plus RNA by RT-PCR result to be used for statistical tracking purpose only.PERFORMED BY:[address] [place] [phone] MEDICAL DIRECTORSUZY COLMENARES M.D. Performed By: #### C OVID19 FLU RSV, CEPHEID NEG ####[address] [address] [place] COVID-19 / Flu A/B / RSV PCR on 12-01-2024 SARS-CoV-2 (COVID-19) RNA EMI+probe Ql (Unsp spec) Normal [facility] Comment on above: Performed By: #### C OVID19 FLU RSV, CEPHEID NEG ####[place] [id number] [facility] Calcium [Mass/volume] in Ser um or PlasmaOrdered By: Rebecca Marmolejo on 12-01-2024 Calcium [Mass/Vol] 9.8 mg/dL Normal 8.6-10.3 [facility] Comment on above: Performed By: #### B MP, CBC, HS TROP ####[place] [id number] [facility] Carbon dioxide, total [Moles /volume] in Serum or PlasmaOrdered By: Rebecca Marmolejo on 12-01-2024 CO2 [Moles/Vol] 25.8 mmol/L Normal 21.0-31.0 [facility] Comment on above: Performed By: #### B MP, CBC, HS TROP ####[place] [id number] [place] Chloride [Moles/volume] in S jett or PlasmaOrdered By: Rebecca Marmolejo on 12-01-2024 Chloride [Moles/Vol] 105 mmol/L Normal 98-107 [facility] Comment on above: Performed By: #### B MP, CBC, HS TROP ####[place] [id number] [facility] Color of Urine by AutoOrdere d By: Rebecca Marmolejo on 12-01-2024 Color (U) Colorless Normal Yellow [facility] Comment on above: Order Comment: Name Collection Type:: Clean-Voided Midstream Performed By: #### A DDONUAPLUS ####[place] [id number] [facility] Complete Blood Count Auto Di ffon 12-01-2024 Mean Corpuscular HGB Conc 35.0 g/dL Normal 32.0-35.0 [facility] Comment on above: Performed By: #### B MP, CBC, HS TROP ####[place] [id number] [facility] Monocytes/100 WBC (Bld) 21.43 % High 0.00-20.00 [facility] Comment on above: Result Comment: For adults in ED, MDW > 20.0 may be associated with a higher risk of sepsis during the first 12 hrs of hospital admission Performed By: #### B MP, CBC, HS TROP ####[address] NRBC% 0.1 /100{WBC} Normal 0-0.5 [facility] Comment on above: Performed By: #### B MP, CBC, HS TROP ####[place] [id number] [facility] White Blood Count 7.8 [CFU]/mL Normal 3.8-11.6 [facility] Comment on above: Performed By: #### B MP, CBC, HS TROP ####[place] [id number] [facility] Creatinine [Mass/volume] in Serum or PlasmaOrdered By: Rebecca Marmolejo on 12-01-2024 Creatinine [Mass/Vol] 0.68 mg/dL Normal 0.60-1.20 [facility] Comment on above: Performed By: #### B MP, CBC, HS TROP ####[address] [address] [facility] Dipstick and Microscopicon 0 12-01-2024 Bacteria,Urine None Seen Normal None Seen [facility] Comment on above: Order Comment: Name Collection Type:: Clean-Voided Midstream Performed By: #### A DDONUAPLUS ####[place] [id number] [place] Bilirubin,Urine Negative Normal Negative [facility] Comment on above: Order Comment: Name Collection Type:: Clean-Voided Midstream Performed By: #### A DDONUAPLUS ####[address] [address] [facility] Glucose Ql (U) Normal Normal Normal [facility] Comment on above: Order Comment: Name Collection Type:: Clean-Voided Midstream Performed By: #### A DDONUAPLUS ####[address] [address] [facility] Hyaline Casts,Urine None Normal 0-8 [facility] Comment on above: Order Comment: Name Collection Type:: Clean-Voided Midstream Result Comment: PERF ORMED BY:[address] GAUTHIERSladeRAY[place] [id number] MEDICAL SHAINA COLMENARES M.D. Performed By: #### A DDONUAPLUS ####[place] [id number] [facility] Nitrite,Urine Negative Normal Negative [facility] Comment on above: Order Comment: Name Collection Type:: Clean-Voided Midstream Performed By: #### A DDONUAPLUS ####[place] [id number] [facility] Occult Blood,Urine 1+ Normal Negative [facility] Comment on above: Order Comment: Name Collection Type:: Clean-Voided Midstream Result Comment: PERF ORMED BY:[address] GAUTHIERSladeRAYMON[place] [id number] MEDICAL SHAINA COLMENARES M.D. Performed By: #### A DDONUAPLUS ####[address] [address] [facility] Protein,Urine Negative Normal Negative [facility] Comment on above: Order Comment: Name Collection Type:: Clean-Voided Midstream Performed By: #### A DDONUAPLUS ####[address] [address] [facility] RBC,Urine 1-2 Normal 0-4 [facility] Comment on above: Order Comment: Name Collection Type:: Clean-Voided Midstream Performed By: #### A DDONUAPLUS ####[address] Specificy [place],Urine 1.005 Normal 1.001-1.030 [facility] Comment on above: Order Comment: Name Collection Type:: Clean-Voided Midstream Performed By: #### A DDONUAPLUS ####[address] Squamous Epithelial Cell,Urine 1-2 Normal 0-2 [facility] Comment on above: Order Comment: Name Collection Type:: Clean-Voided Midstream Performed By: #### A DDONUAPLUS ####[address] Urobilinogen,Urine Normal Normal Normal [facility] Comment on above: Order Comment: Name Collection Type:: Clean-Voided Midstream Performed By: #### A DDONUAPLUS ####[address] WBC,Urine 1-2 Normal 0-4 [facility] Comment on above: Order Comment: Name Collection Type:: Clean-Voided Midstream Performed By: #### A DDONUAPLUS ####[address] ECG 12 lead ECGon 12-01-2024 ECG 12 lead ECG Normal [facility] Eosinophils [#/volume] in Bl ood by Automated countOrdered By: Rebecca Marmolejo on 12-01-2024 Eosinophils (Bld) [#/Vol] 0.3 10*3/uL Normal 0.0-0.45 [facility] Comment on above: Performed By: #### B MP, CBC, HS TROP ####[address] Eosinophils/100 leukocytes i n Blood by Automated countOrdered By: Rebecca Marmolejo on 12-01-2024 Eosinophils/100 WBC (Bld) 3.8 % Normal . [facility] Comment on above: Performed By: #### B MP, CBC, HS TROP ####[facility] Epithelial cells.squamous [# /area] in Urine sediment by Automated countOrdered By: Rebecca Marmolejo on 12-01-2024 Epithelial cells.squamous Auto (Urine sed) [#/Area] 1-2 [HPF] 0-2 [facility] Erythrocyte distribution wid th [Ratio] by Automated countOrdered By: Rebecca Marmolejo on 12-01-2024 Erythrocyte distribution width (RBC) [Ratio] 13.9 % Normal 11.9-15.3 [facility] Comment on above: Performed By: #### B MP, CBC, HS TROP ####[place] [address] Erythrocytes [#/area] in Uri ne sediment by Automated countOrdered By: Rebecca Marmolejo on 12-01-2024 RBC Auto (Urine sed) [#/Area] 1-2 [HPF] 0-4 [facility] Erythrocytes [#/volume] in B lood by Automated countOrdered By: Rebecca Marmolejo on 12-01-2024 RBC (Bld) [#/Vol] 4.31 10*6/uL Normal 3.60-5.00 [facility] Comment on above: Performed By: #### B MP, CBC, HS TROP ####[place] [id number] Glomerular filtration rate [ Volume Rate/Area] in Serum, Plasma or Blood by CreatinineOrdered By: Rebecca Marmolejo on 12-01-2024 Glomerular filtration rate [Volume Rate/Area] in Serum, Plasma or Blood by Creatinine > 60.0 mL/Min [facility] Glucose [Mass/volume] in Ser um or PlasmaOrdered By: Rebecca Marmolejo on 12-01-2024 Glucose [Mass/Vol] 93 mg/dL Normal 70-100 [facility] Comment on above: Result Comment: [place] Glucose Reference Range is dependent on time and content of last meal. Glucose of more than 200 mg/dL in a nonstressed, ambulatory subject supports the diagnosis of Diabetes Mellitus. ADA recommended reference range Performed By: #### B MP, CBC, HS TROP ####[address] Glucose [Mass/volume] in Uri ne by Test stripOrdered By: Rebecca Marmolejo on 12-01-2024 Glucose Test strip (U) [Mass/Vol] Normal mg/dL Normal [facility] Hematocrit [Volume Fraction] of Blood by Automated countOrdered By: Rebecca Marmolejo on 12-01-2024 Hematocrit (Bld) [Volume fraction] 38.5 % Normal 34.0-46.4 [facility] Comment on above: Performed By: #### B MP, CBC, HS TROP ####[address] Hemoglobin Test strip Ql (U) Ordered By: Rebecca Marmolejo on 12-01-2024 Hemoglobin Ql (U) 1+ High Negative [facility] Hemoglobin [Mass/volume] in BloodOrdered By: Rebecca Marmolejo on 12-01-2024 Hemoglobin (Bld) [Mass/Vol] 13.5 g/dL Normal 11.8-15.4 [facility] Comment on above: Performed By: #### B MP, CBC, HS TROP ####[address] Hyaline casts [#/area] in Ur ine sediment by Automated countOrdered By: Rebecca Marmolejo on 12-01-2024 Hyaline casts Auto (Urine sed) [#/Area] None [LPF] 0-8 [facility] Ketones [Presence] in Urine by Test stripOrdered By: Rebecca Marmolejo on 12-01-2024 Ketones Ql (U) Negative Normal Negative [facility] Comment on above: Order Comment: Name Collection Type:: Clean-Voided Midstream Performed By: #### A DDONUAPLUS ####[address] Leukocyte esterase [Presence ] in Urine by Test stripOrdered By: Rebecca Marmolejo on 12-01-2024 Leukocyte esterase Test strip Ql (U) Negative Normal Negative [facility] Comment on above: Order Comment: Name Collection Type:: Clean-Voided Midstream Performed By: #### A DDONUAPLUS ####[address] Leukocytes [#/area] in Urine sediment by Automated countOrdered By: Rebecca Marmolejo on 12-01-2024 WBC Auto (Urine sed) [#/Area] 1-2 [HPF] 0-4 [facility] Leukocytes [#/volume] correc jacki for nucleated erythrocytes in Blood by Automated counOrdered By: Rebecca Marmolejo on 12-01-2024 WBC corrected for nucl RBC Auto (Bld) [#/Vol] 7.8 10*3/uL 3.8-11.6 [facility] Leukocytes [#/volume] in Blo od by Automated countOrdered By: Rebecca Marmolejo on 12-01-2024 WBC (Bld) [#/Vol] 7.8 10*3/uL Normal 3.8-11.6 [facility] Comment on above: Performed By: #### B MP, CBC, HS TROP ####[address] Lymphocytes [#/volume] in Bl ood by Automated countOrdered By: Rebecca Marmolejo on 12-01-2024 Lymphocytes (Bld) [#/Vol] 2.6 10*3/uL Normal 1.00-4.8 [facility] Comment on above: Performed By: #### B MP, CBC, HS TROP ####[address] Lymphocytes/100 leukocytes i n Blood by Automated countOrdered By: Rebecca Marmolejo on 12-01-2024 Lymphocytes/100 WBC (Bld) 33.6 % Normal . [facility] Comment on above: Performed By: #### B MP, CBC, HS TROP ####[place] [address] [place] MCH [Entitic mass] by Automa jacki countOrdered By: Rebecca Marmolejo on 12-01-2024 MCH (RBC) [Entitic mass] 31.3 pg Normal 24.7-34.3 [facility] Comment on above: Performed By: #### B MP, CBC, HS TROP ####[place] [id number] [facility] MCHC Auto (RBC) [Mass/Vol]Or dered By: Rebecca Marmolejo on 12-01-2024 MCHC (RBC) [Mass/Vol] 35.0 g/dL 32.0-35.0 [facility] MCV [Entitic volume] by Auto mated countOrdered By: Rebecca Marmolejo on 12-01-2024 MCV (RBC) [Entitic vol] 89.4 fL Normal 80-100 [facility] Comment on above: Performed By: #### B MP, CBC, HS TROP ####[address] Monocyte distribution width [Entitic volume] in Blood by AutomatedOrdered By: Rebecca Marmolejo on 12-01-2024 Monocyte distribution width Auto (Bld) [Entitic vol] 21.43 % High 0.00-20.00 [facility] Monocytes [#/volume] in Bloo d by Automated countOrdered By: Rebecca Marmolejo on 12-01-2024 Monocytes (Bld) [#/Vol] 0.5 10*3/uL Normal 0.0-0.8 [facility] Comment on above: Performed By: #### B MP, CBC, HS TROP ####[address] Monocytes/100 leukocytes in Blood by Automated countOrdered By: Rebecca Marmolejo on 12-01-2024 Monocytes/100 WBC (Bld) 6.7 % Normal . [facility] Comment on above: Performed By: #### B MP, CBC, HS TROP ####[address] Neutrophils [#/volume] in Bl ood by Automated countOrdered By: Rebecca Marmolejo on 12-01-2024 Neutrophils (Bld) [#/Vol] 4.3 10*3/uL Normal 1.8-7.7 [facility] Comment on above: Performed By: #### B MP, CBC, HS TROP ####[address] Neutrophils/100 leukocytes i n Blood by Automated countOrdered By: Rebecca Marmolejo on 12-01-2024 Neutrophils/100 WBC (Bld) 55.3 % Normal . [facility] Comment on above: Performed By: #### B MP, CBC, HS TROP ####[place] [id number] [facility] Nitrite Test strip Ql (U)Ord ered By: Rebecca Marmolejo on 12-01-2024 Nitrite Ql (U) Negative Negative [facility] No Panel InformationOrdered By: Rebecca Marmolejo on 12-01-2024 101.85 [facility] Nucleated erythrocytes [Pres ence] in Blood by Automated countOrdered By: Rebecca Marmolejo on 12-01-2024 Nucleated RBC Auto Ql (Bld) 0.1 /100{WBC} 0-0.5 [facility] Platelet mean volume [Entiti c volume] in Blood by Automated countOrdered By: Rebecca Marmolejo on 12-01-2024 Platelet mean volume (Bld) [Entitic vol] 8.2 fL Normal 6.3-10.7 [facility] Comment on above: Performed By: #### B MP, CBC, HS TROP ####[address] Platelets [#/volume] in Bloo d by Automated countOrdered By: Rebecca Marmolejo on 12-01-2024 Platelets (Bld) [#/Vol] 357 10*3/uL Normal 150-450 [facility] Comment on above: Performed By: #### B MP, CBC, HS TROP ####[place] [id number] [facility] Potassium [Moles/volume] in Serum or PlasmaOrdered By: Rebecca Marmolejo on 12-01-2024 Potassium [Moles/Vol] 3.5 mmol/L Normal 3.5-5.1 [facility] Comment on above: Performed By: #### B MP, CBC, HS TROP ####[place] [id number] [facility] Protein Test strip (U) [Mass /Vol]Ordered By: Rebecca Marmolejo on 12-01-2024 Protein (U) [Mass/Vol] Negative Negative [facility] Serum or plasma anion gap de terminationOrdered By: Rebecca Marmolejo on 12-01-2024 Anion gap [Moles/Vol] 12.7 mmol/L Normal 6.0-15.0 [facility] Comment on above: Performed By: #### B MP, CBC, HS TROP ####[place] [address] [place] [address] [facility] Sodium [Moles/volume] in Ser um or PlasmaOrdered By: Rebecca Marmolejo on 12-01-2024 Sodium [Moles/Vol] 140 mmol/L Normal 136-145 [facility] Comment on above: Performed By: #### B MP, CBC, HS TROP ####[place] [address] [place] [address] [facility] Specific gravity Test strip (U) [Rel density]Ordered By: Rebecca Marmolejo on 12-01-2024 Specific gravity (U) [Rel density] 1.005 1.001-1.030 [facility] Troponin I High Sensitivityo n 12-01-2024 Troponin I High Sensitivity 4 Normal 0-15 [facility] Comment on above: Result Comment: The Troponin units of report have been changed to meet the Chest Pain Accreditation requirement, element EC5.M1l2. Troponin units are changed from pg/ml to ng/L. Also, the decimal is removed and results are in whole numbers.PERFORMED BY:[place] [address] [place] [place], [place] [phone] MEDICAL DIRECTORSUZY COLMENARES M.D. Performed By: #### B MP, CBC, HS TROP ####[place] [address] [place] [address] [facility] Troponin I.cardiac [Mass/vol ume] in Serum or Plasma by Detection limit <= 0.01 ng/mLOrdered By: Rebecca Marmolejo on 12-01-2024 Troponin I.cardiac DL <= 0.01 ng/mL [Mass/Vol] 4 ng/L 0-15 [facility] Urea nitrogen [Mass/volume] in Serum or PlasmaOrdered By: Rebecca Marmolejo on 12-01-2024 Urea nitrogen [Mass/Vol] 14 mg/dL Normal 7-25 [facility] Comment on above: Performed By: #### B MP, CBC, HS TROP ####[place] [id number] [facility] Urine Cultureon 12-01-2024 Bacteria identified Cx Nom (U) Normal [facility] Comment on above: Performed By: #### C UU ####[address] Urine cultureOrdered By: Ronald Buck on 12-01-2024 Bacteria identified Cx Nom (U) Corynebacterium coyleae Abnormal [facility] Urobilinogen Test strip (U) [Mass/Vol]Ordered By: Rebecca Marmolejo on 12-01-2024 Urobilinogen (U) [Mass/Vol] Normal mg/dL Normal [facility] XR chest 2V*on 12-01-2024 XR chest 2V* Normal [facility] pH of Urine by Test stripOrd ered By: Rebecca Marmolejo on 12-01-2024 pH (U) 5.5 [pH] Normal 5.0-9.0 [facility] Comment on above: Order Comment: Name Collection Type:: Clean-Voided Midstream Performed By: #### A DDONUAPLUS ####[address] BNP ser/plasOrdered By: Chaka Hess on 11-23-2024 Natriuretic peptide B (Bld) [Mass/Vol] 93.0 pg/mL Normal 5-100 [facility] Comment on above: Result Comment: PERF ORMED BY:[address] [place], [place] [id number] MEDICAL SHAINA COLMENARES M.D. Performed By: #### B MP, CBC, HS TROP, BNP, PT ####[place] [id number] [facility] Basic Metabolic Panelon 10-31 Creatinine Clr Calc Pharmacy 92.52 Normal [facility] Comment on above: Result Comment: PERF ORMED BY:[address] [place], [place] [id number] MEDICAL SHAINA COLMENARES M.D. Performed By: #### B MP, CBC, HS TROP, BNP, PT ####[address] [address] [facility] GFR/1.73 sq M.predicted MDRD (S/P/Bld) [Vol rate/Area] mL/min/{1.73_m2} Normal [facility] Comment on above: Performed By: #### B MP, CBC, HS TROP, BNP, PT ####[address] [address] [facility] Basophils [#/volume] in Bloo d by Automated countOrdered By: Denver Hess on 11-23-2024 Basophils (Bld) [#/Vol] 0.0 10*3/uL Normal 0.0-0.2 [facility] Comment on above: Result Comment: PERF ORMED BY:[address] [place], [place] [phone] MEDICAL SHAINA COLMENARES M.D. Performed By: #### B MP, CBC, HS TROP, BNP, PT ####[address] [address] [facility] Basophils/100 leukocytes in Blood by Automated countOrdered By: Denver Hess on 11-23-2024 Basophils/100 WBC (Bld) 0.6 % Normal . [facility] Comment on above: Performed By: #### B MP, CBC, HS TROP, BNP, PT ####[place] [id number] [facility] Calcium [Mass/volume] in Ser um or PlasmaOrdered By: Denver Hess on 11-23-2024 Calcium [Mass/Vol] 9.4 mg/dL Normal 8.6-10.3 [facility] Comment on above: Performed By: #### B MP, CBC, HS TROP, BNP, PT ####[address] [address] [facility] Carbon dioxide, total [Moles /volume] in Serum or PlasmaOrdered By: Denver Hess on 11-23-2024 CO2 [Moles/Vol] 27.7 mmol/L Normal 21.0-31.0 [facility] Comment on above: Performed By: #### B MP, CBC, HS TROP, BNP, PT ####[address] Chloride [Moles/volume] in S jett or PlasmaOrdered By: Denver Hendersonrosy on 11-23-2024 Chloride [Moles/Vol] 105 mmol/L Normal 98-107 [facility] Comment on above: Performed By: #### B MP, CBC, HS TROP, BNP, PT ####[address] Complete Blood Count Auto Di ffon 11-23-2024 Mean Corpuscular HGB Conc 35.3 g/dL High 32.0-35.0 [facility] Comment on above: Performed By: #### B MP, CBC, HS TROP, BNP, PT ####[address] Monocytes/100 WBC (Bld) 18.89 % Normal 0.00-20.00 [facility] Comment on above: Performed By: #### B MP, CBC, HS TROP, BNP, PT ####[address] NRBC% 0.3 /100{WBC} Normal 0-0.5 [facility] Comment on above: Performed By: #### B MP, CBC, HS TROP, BNP, PT ####[address] White Blood Count 7.4 [CFU]/mL Normal 3.8-11.6 [facility] Comment on above: Performed By: #### B MP, CBC, HS TROP, BNP, PT ####[address] Creatinine [Mass/volume] in Serum or PlasmaOrdered By: Denver Jimena on 11-23-2024 Creatinine [Mass/Vol] 0.77 mg/dL Normal 0.60-1.20 [facility] Comment on above: Performed By: #### B MP, CBC, HS TROP, BNP, PT ####[address] ECG 12 lead ECGon 11-23-2024 ECG 12 lead ECG Normal [facility] Eosinophils [#/volume] in Bl ood by Automated countOrdered By: Denver Hess on 11-23-2024 Eosinophils (Bld) [#/Vol] 0.3 10*3/uL Normal 0.0-0.45 [facility] Comment on above: Performed By: #### B MP, CBC, HS TROP, BNP, PT ####[address] Eosinophils/100 leukocytes i n Blood by Automated countOrdered By: Denver Hess on 11-23-2024 Eosinophils/100 WBC (Bld) 4.3 % Normal . [facility] Comment on above: Performed By: #### B MP, CBC, HS TROP, BNP, PT ####[address] Erythrocyte distribution wid th [Ratio] by Automated countOrdered By: Denver Hess on 11-23-2024 Erythrocyte distribution width (RBC) [Ratio] 13.7 % Normal 11.9-15.3 [facility] Comment on above: Performed By: #### B MP, CBC, HS TROP, BNP, PT ####[address] Erythrocytes [#/volume] in B lood by Automated countOrdered By: Denver Hess on 11-23-2024 RBC (Bld) [#/Vol] 4.32 10*6/uL Normal 3.60-5.00 [facility] Comment on above: Performed By: #### B MP, CBC, HS TROP, BNP, PT ####[address] Glomerular filtration rate [ Volume Rate/Area] in Serum, Plasma or Blood by CreatinineOrdered By: Denver Hess on 08-25-2025 Glomerular filtration rate [Volume Rate/Area] in Serum, Plasma or Blood by Creatinine > 60.0 mL/Min [facility] Glucose [Mass/volume] in Ser um or PlasmaOrdered By: Denver Hess on 11-23-2024 Glucose [Mass/Vol] 126 mg/dL High 70-100 [facility] Comment on above: Result Comment: [place] Glucose Reference Range is dependent on time and content of last meal. Glucose of more than 200 mg/dL in a nonstressed, ambulatory subject supports the diagnosis of Diabetes Mellitus. ADA recommended reference range Performed By: #### B MP, CBC, HS TROP, BNP, PT ####[address] Hematocrit [Volume Fraction] of Blood by Automated countOrdered By: Denver Hess on 11-23-2024 Hematocrit (Bld) [Volume fraction] 38.3 % Normal 34.0-46.4 [facility] Comment on above: Performed By: #### B MP, CBC, HS TROP, BNP, PT ####[place] [id number] [facility] Hemoglobin [Mass/volume] in BloodOrdered By: Denver Hess on 11-23-2024 Hemoglobin (Bld) [Mass/Vol] 13.5 g/dL Normal 11.8-15.4 [facility] Comment on above: Performed By: #### B MP, CBC, HS TROP, BNP, PT ####[address] INR in Platelet poor plasma by Coagulation assayOrdered By: Denver Hess on 11-23-2024 INR Coag (PPP) [Relative time] 1.0 {INR} Normal [facility] Comment on above: Result Comment: INR Therapeutic Range A) Pre- and Peroperative OAT started two weeks before surgery. NOT HIP SURGERY: 1.5 - 2.5 HIP SURGERY: 2 - 3 B) Primary and secondary prevention of venous THROMBOSIS: 2 - 3 C) Active venous thrombosis, pulmonary embolism and prevention of recurrent venous thrombosis: 2 - 3 D) Prevention of arterial thromboembolism including patients with mechanical heart valves: 3 - 4.5PERFORMED BY:[place] [address] [address] [place], [place] [phone] MEDICAL DIRECTORSUZY COLMENARES M.D. Performed By: #### B MP, CBC, HS TROP, BNP, PT ####[address] Leukocytes [#/volume] correc jacki for nucleated erythrocytes in Blood by Automated counOrdered By: Denver Hess on 11-23-2024 WBC corrected for nucl RBC Auto (Bld) [#/Vol] 7.4 10*3/uL 3.8-11.6 [facility] Leukocytes [#/volume] in Blo od by Automated countOrdered By: Denver Hess on 11-23-2024 WBC (Bld) [#/Vol] 7.4 10*3/uL Normal 3.8-11.6 [facility] Comment on above: Performed By: #### B MP, CBC, HS TROP, BNP, PT ####[address] Lymphocytes [#/volume] in Bl ood by Automated countOrdered By: Denver Hess on 11-23-2024 Lymphocytes (Bld) [#/Vol] 2.5 10*3/uL Normal 1.00-4.8 [facility] Comment on above: Performed By: #### B MP, CBC, HS TROP, BNP, PT ####[address] Lymphocytes/100 leukocytes i n Blood by Automated countOrdered By: Denver Hess on 11-23-2024 Lymphocytes/100 WBC (Bld) 33.7 % Normal . [facility] Comment on above: Performed By: #### B MP, CBC, HS TROP, BNP, PT ####[address] MCH [Entitic mass] by Automa jacki countOrdered By: Denver Hess on 11-23-2024 MCH (RBC) [Entitic mass] 31.2 pg Normal 24.7-34.3 [facility] Comment on above: Performed By: #### B MP, CBC, HS TROP, BNP, PT ####[address] MCHC Auto (RBC) [Mass/Vol]Or dered By: Denver Hess on 11-23-2024 MCHC (RBC) [Mass/Vol] 35.3 g/dL High 32.0-35.0 [facility] MCV [Entitic volume] by Auto mated countOrdered By: Denver Hess on 11-23-2024 MCV (RBC) [Entitic vol] 88.6 fL Normal 80-100 [facility] Comment on above: Performed By: #### B MP, CBC, HS TROP, BNP, PT ####[address] Monocyte distribution width [Entitic volume] in Blood by AutomatedOrdered By: Denver Hess on 11-23-2024 Monocyte distribution width Auto (Bld) [Entitic vol] 18.89 % 0.00-20.00 [facility] Monocytes [#/volume] in Bloo d by Automated countOrdered By: Denver Hess on 11-23-2024 Monocytes (Bld) [#/Vol] 0.4 10*3/uL Normal 0.0-0.8 [facility] Comment on above: Performed By: #### B MP, CBC, HS TROP, BNP, PT ####[address] Monocytes/100 leukocytes in Blood by Automated countOrdered By: Denver Hess on 11-23-2024 Monocytes/100 WBC (Bld) 5.7 % Normal . [facility] Comment on above: Performed By: #### B MP, CBC, HS TROP, BNP, PT ####[address] Neutrophils [#/volume] in Bl ood by Automated countOrdered By: Denver Hess on 11-23-2024 Neutrophils (Bld) [#/Vol] 4.1 10*3/uL Normal 1.8-7.7 [facility] Comment on above: Performed By: #### B MP, CBC, HS TROP, BNP, PT ####[facility] Neutrophils/100 leukocytes i n Blood by Automated countOrdered By: Denver Hess on 11-23-2024 Neutrophils/100 WBC (Bld) 55.7 % Normal . [facility] Comment on above: Performed By: #### B MP, CBC, HS TROP, BNP, PT ####[facility] No Panel InformationOrdered By: Denver Hess on 11-23-2024 92.52 [facility] Nucleated erythrocytes [Pres ence] in Blood by Automated countOrdered By: Denver Hess on 11-23-2024 Nucleated RBC Auto Ql (Bld) 0.3 /100{WBC} 0-0.5 [facility] Platelet mean volume [Entiti c volume] in Blood by Automated countOrdered By: Denver Hess on 11-23-2024 Platelet mean volume (Bld) [Entitic vol] 7.9 fL Normal 6.3-10.7 [facility] Comment on above: Performed By: #### B MP, CBC, HS TROP, BNP, PT ####[facility] Platelets [#/volume] in Bloo d by Automated countOrdered By: Denver Hess on 11-23-2024 Platelets (Bld) [#/Vol] 335 10*3/uL Normal 150-450 [facility] Comment on above: Performed By: #### B MP, CBC, HS TROP, BNP, PT ####[facility] [place] [address] Potassium [Moles/volume] in Serum or PlasmaOrdered By: Denver Hess on 11-23-2024 Potassium [Moles/Vol] 3.5 mmol/L Normal 3.5-5.1 [facility] Comment on above: Result Comment: Hemo lysis is present at a level that could interfere with the result. Contact lab if redraw is required Performed By: #### B MP, CBC, HS TROP, BNP, PT ####[place] [address] [place] [address] [facility] Prothrombin time (PT)Ordered By: Denver Hess on 11-23-2024 PT Coag (PPP) [Time] 11.2 s Normal 9.0-12.9 [facility] Comment on above: Result Comment: A he matocrit value greater than 55% may lead to inaccurate results in coagulation testing. Patients having hematocrit values >55% require a special collection tube for coagulation studies. Please contact the laboratory at [phone] for redraw instructions. Performed By: #### B MP, CBC, HS TROP, BNP, PT ####[place] [id number] [facility] Serum or plasma anion gap de terminationOrdered By: Denver Hess on 11-23-2024 Anion gap [Moles/Vol] 11.8 mmol/L Normal 6.0-15.0 [facility] Comment on above: Performed By: #### B MP, CBC, HS TROP, BNP, PT ####[place] [id number] [facility] Sodium [Moles/volume] in Ser um or PlasmaOrdered By: Denver Hess on 11-23-2024 Sodium [Moles/Vol] 141 mmol/L Normal 136-145 [facility] Comment on above: Performed By: #### B MP, CBC, HS TROP, BNP, PT ####[place] [id number] [facility] Troponin I High Sensitivityo n 11-23-2024 Troponin I High Sensitivity 4 Normal 0-15 [facility] Comment on above: Result Comment: The Troponin units of report have been changed to meet the Chest Pain Accreditation requirement, element EC5.M1l2. Troponin units are changed from pg/ml to ng/L. Also, the decimal is removed and results are in whole numbers.PERFORMED BY:[place] [address] [place], [place] [id number] MEDICAL DIRECTORSUZY COLMENARES M.D. Performed By: #### H S TROP ####[address] [address] [facility] Troponin I High Sensitivity 5 Normal 0-15 [facility] Comment on above: Result Comment: The Troponin units of report have been changed to meet the Chest Pain Accreditation requirement, element EC5.M1l2. Troponin units are changed from pg/ml to ng/L. Also, the decimal is removed and results are in whole numbers.PERFORMED BY:[address] [place], [place] [phone] MEDICAL DIRECTORSUZY COLMENARES M.D. Performed By: #### B MP, CBC, HS TROP, BNP, PT ####[place] [address] [place] [id number] [facility] Troponin I.cardiac [Mass/vol ume] in Serum or Plasma by Detection limit <= 0.01 ng/mLOrdered By: Denver Hess on 11-23-2024 Troponin I.cardiac DL <= 0.01 ng/mL [Mass/Vol] 4 ng/L 0-15 [facility] Urea nitrogen [Mass/volume] in Serum or PlasmaOrdered By: Denver Hess on 11-23-2024 Urea nitrogen [Mass/Vol] 12 mg/dL Normal 10-23 [facility] Comment on above: Performed By: #### B MP, CBC, HS TROP, BNP, PT ####[place] [id number] [facility] XR chest 2V*on 11-23-2024 XR chest 2V* Normal [facility] Alanine aminotransferase [En zymatic activity/volume] in Serum or PlasmaOrdered By: Severo Aponte on 11-15-2024 ALT [Catalytic activity/Vol] 21 U/L Normal [facility] Comment on above: Performed By: #### H S TROP, CK, CMP, CBC ####[place] [id number] [facility] Albumin [Mass/volume] in Ser um or Plasma by Bromocresol green (BCG) dye binding methoOrdered By: Severo Aponte on 11-15-2024 Albumin BCG dye [Mass/Vol] 4.7 g/dL 3.5-5.7 [facility] Alkaline phosphatase [Enzyma tic activity/volume] in Serum or PlasmaOrdered By: Severo Murilloeve on 11-15-2024 ALP [Catalytic activity/Vol] 104 U/L Normal 34-104 [facility] Comment on above: Performed By: #### H S TROP, CK, CMP, CBC ####[place] [id number] [facility] Appearance of UrineOrdered B y: Severo Aponte on 11-15-2024 Appearance (U) Clear Normal Clear [facility] Comment on above: Order Comment: Name Collection Type:: Clean-Voided Midstream Performed By: #### A DDONUAPLUS ####[address] Aspartate aminotransferase [ Enzymatic activity/volume] in Serum or PlasmaOrdered By: Severo Fadi on 11-15-2024 AST [Catalytic activity/Vol] 18 U/L Normal 13-39 [facility] Comment on above: Performed By: #### H S TROP, CK, CMP, CBC ####[place] [id number] [facility] Bacteria [Presence] in Urine by AutomatedOrdered By: Severo Aponte on 11-15-2024 Bacteria Auto Ql (U) None seen [HPF] None Seen [facility] Basophils [#/volume] in Bloo d by Automated countOrdered By: Severo Aponte on 11-15-2024 Basophils (Bld) [#/Vol] 0.0 10*3/uL Normal 0.0-0.2 [facility] Comment on above: Result Comment: PERF ORMED BY:[address] [place], [place] [phone] MEDICAL DIRECTORSUZY COLMENARES M.D. Performed By: #### H S TROP, CK, CMP, CBC ####[place] [id number] [place] Basophils/100 leukocytes in Blood by Automated countOrdered By: Severo Aponte on 11-15-2024 Basophils/100 WBC (Bld) 0.5 % Normal . [facility] Comment on above: Performed By: #### H S TROP, CK, CMP, CBC ####[address] [address] [facility] Bilirubin Test strip Ql (U)O rdered By: Severo Aponte on 11-15-2024 Bilirubin Ql (U) Negative Negative [facility] Bilirubin.total [Mass/volume ] in Serum or PlasmaOrdered By: Severo Aponte on 11-15-2024 Bilirubin [Mass/Vol] 0.3 mg/dL Normal 0.3-1.0 [facility] Comment on above: Performed By: #### H S TROP, CK, CMP, CBC ####[place] [id number] [facility] Calcium [Mass/volume] in Ser um or PlasmaOrdered By: Severo Aponte on 11-15-2024 Calcium [Mass/Vol] 10.1 mg/dL Normal 8.6-10.3 [facility] Comment on above: Performed By: #### H S TROP, CK, CMP, CBC ####[place] [id number] [facility] Carbon dioxide, total [Moles /volume] in Serum or PlasmaOrdered By: Severo Aponte on 11-15-2024 CO2 [Moles/Vol] 28.4 mmol/L Normal 21.0-31.0 [facility] Comment on above: Performed By: #### H S TROP, CK, CMP, CBC ####[place] [id number] [place] Chloride [Moles/volume] in S jett or PlasmaOrdered By: Severo Aponte on 11-15-2024 Chloride [Moles/Vol] 101 mmol/L Normal 98-107 [facility] Comment on above: Performed By: #### H S TROP, CK, CMP, CBC ####[place] [id number] [facility] Color of Urine by AutoOrdere d By: Severo Aponte on 11-15-2024 Color (U) Colorless Normal Yellow [facility] Comment on above: Order Comment: Name Collection Type:: Clean-Voided Midstream Performed By: #### A DDONUAPLUS ####[place] [id number] [facility] Complete Blood Count Auto Di ffon 11-15-2024 Mean Corpuscular HGB Conc 34.2 g/dL Normal 32.0-35.0 [facility] Comment on above: Performed By: #### H S TROP, CK, CMP, CBC ####[address] Monocytes/100 WBC (Bld) 20.08 % High 0.00-20.00 [facility] Comment on above: Result Comment: For adults in ED, MDW > 20.0 may be associated with a higher risk of sepsis during the first 12 hrs of hospital admission Performed By: #### H S TROP, CK, CMP, CBC ####[address] NRBC% 0.1 /100{WBC} Normal 0-0.5 [facility] Comment on above: Performed By: #### H S TROP, CK, CMP, CBC ####[address] White Blood Count 8.7 [CFU]/mL Normal 3.8-11.6 [facility] Comment on above: Performed By: #### H S TROP, CK, CMP, CBC ####[place] [id number] [facility] Comprehensive Metabolic Pane cony 11-15-2024 Albumin [Mass/Vol] 4.7 g/dL Normal 3.5-5.7 [facility] Comment on above: Performed By: #### H S TROP, CK, CMP, CBC ####[address] Creatinine Clr Calc Pharmacy 86.57 Normal [facility] Comment on above: Result Comment: PERF ORMED BY:[address] [place], [place] [phone] MEDICAL DIRECTORSUZY COLMENARES M.D. Performed By: #### H S TROP, CK, CMP, CBC ####[address] GFR/1.73 sq M.predicted MDRD (S/P/Bld) [Vol rate/Area] mL/min/{1.73_m2} Normal [facility] Comment on above: Performed By: #### H S TROP, CK, CMP, CBC ####[place] [id number] [facility] Creatine kinase [Enzymatic a ctivity/volume] in Serum or PlasmaOrdered By: Severo Aponte on 11-15-2024 CK [Catalytic activity/Vol] 206 U/L Normal 30-223 [facility] Comment on above: Performed By: #### H S TROP, CK, CMP, CBC ####[address] Creatinine [Mass/volume] in Serum or PlasmaOrdered By: Severo Aponte on 11-15-2024 Creatinine [Mass/Vol] 0.80 mg/dL Normal 0.60-1.20 [facility] Comment on above: Performed By: #### H S TROP, CK, CMP, CBC ####[place] [id number] [facility] Dipstick and Microscopicon 0 11-15-2024 Bacteria,Urine None Seen Normal None Seen [facility] Comment on above: Order Comment: Name Collection Type:: Clean-Voided Midstream Performed By: #### A DDONUAPLUS ####[place] [id number] [facility] Bilirubin,Urine Negative Normal Negative [facility] Comment on above: Order Comment: Name Collection Type:: Clean-Voided Midstream Performed By: #### A DDONUAPLUS ####[place] [id number] [facility] Glucose Ql (U) Normal Normal Normal [facility] Comment on above: Order Comment: Name Collection Type:: Clean-Voided Midstream Performed By: #### A DDONUAPLUS ####[place] [id number] [facility] Hyaline Casts,Urine None Normal 0-8 [facility] Comment on above: Order Comment: Name Collection Type:: Clean-Voided Midstream Result Comment: PERF ORMED BY:[address] [place], [place] [phone] MEDICAL SHAINA COLMENARES M.D. Performed By: #### A DDONUAPLUS ####[address] [address] [place] Nitrite,Urine Negative Normal Negative [facility] Comment on above: Order Comment: Name Collection Type:: Clean-Voided Midstream Performed By: #### A DDONUAPLUS ####[address] [address] [facility] Occult Blood,Urine 1+ Normal Negative [facility] Comment on above: Order Comment: Name Collection Type:: Clean-Voided Midstream Result Comment: PERF ORMED BY:[address] [place], [place] [phone] MEDICAL SHAINA COLMENARES M.D. Performed By: #### A DDONUAPLUS ####[address] [address] [place] Protein,Urine Negative Normal Negative [facility] Comment on above: Order Comment: Name Collection Type:: Clean-Voided Midstream Performed By: #### A DDONUAPLUS ####[address] [address] [place] RBC,Urine 3-4 Normal 0-4 [facility] Comment on above: Order Comment: Name Collection Type:: Clean-Voided Midstream Performed By: #### A DDONUAPLUS ####[address] [address] [place] Specificy [place],Urine 1.008 Normal 1.001-1.030 [facility] Comment on above: Order Comment: Name Collection Type:: Clean-Voided Midstream Performed By: #### A DDONUAPLUS ####[address] [address] [place] Squamous Epithelial Cell,Urine 1-2 Normal 0-2 [facility] Comment on above: Order Comment: Name Collection Type:: Clean-Voided Midstream Performed By: #### A DDONUAPLUS ####[address] Urobilinogen,Urine Normal Normal Normal [facility] Comment on above: Order Comment: Name Collection Type:: Clean-Voided Midstream Performed By: #### A DDONUAPLUS ####[address] WBC,Urine 1-2 Normal 0-4 [facility] Comment on above: Order Comment: Name Collection Type:: Clean-Voided Midstream Performed By: #### A DDONUAPLUS ####[address] ECG 12 lead ECGon 11-15-2024 ECG 12 lead ECG Normal [facility] Eosinophils [#/volume] in Bl ood by Automated countOrdered By: Severo Aponte on 11-15-2024 Eosinophils (Bld) [#/Vol] 0.2 10*3/uL Normal 0.0-0.45 [facility] Comment on above: Performed By: #### H S TROP, CK, CMP, CBC ####[address] Eosinophils/100 leukocytes i n Blood by Automated countOrdered By: Severo Aponte on 11-15-2024 Eosinophils/100 WBC (Bld) 2.6 % Normal . [facility] Comment on above: Performed By: #### H S TROP, CK, CMP, CBC ####[address] Epithelial cells.squamous [# /area] in Urine sediment by Automated countOrdered By: Severo Aponte on 11-15-2024 Epithelial cells.squamous Auto (Urine sed) [#/Area] 1-2 [HPF] 0-2 [facility] Erythrocyte distribution wid th [Ratio] by Automated countOrdered By: Severo Aponte on 11-15-2024 Erythrocyte distribution width (RBC) [Ratio] 13.7 % Normal 11.9-15.3 [facility] Comment on above: Performed By: #### H S TROP, CK, CMP, CBC ####[place] [address] [place] [id number] [facility] Erythrocytes [#/area] in Uri ne sediment by Automated countOrdered By: Severo Aponte on 11-15-2024 RBC Auto (Urine sed) [#/Area] 3-4 [HPF] 0-4 [facility] Erythrocytes [#/volume] in B lood by Automated countOrdered By: Severo Aponte on 11-15-2024 RBC (Bld) [#/Vol] 4.85 10*6/uL Normal 3.60-5.00 [facility] Comment on above: Performed By: #### H S TROP, CK, CMP, CBC ####[place] [address] Glucose [Mass/volume] in Ser um or PlasmaOrdered By: Severo Aponte on 11-15-2024 Glucose [Mass/Vol] 115 mg/dL High 70-100 [facility] Comment on above: Result Comment: [facility] Glucose Reference Range is dependent on time and content of last meal. Glucose of more than 200 mg/dL in a nonstressed, ambulatory subject supports the diagnosis of Diabetes Mellitus. ADA recommended reference range Performed By: #### H S TROP, CK, CMP, CBC ####[place] [address] [place] [id number] [facility] Glucose [Mass/volume] in Uri ne by Test stripOrdered By: Severo Aponte on 11-15-2024 Glucose Test strip (U) [Mass/Vol] Normal mg/dL Normal [facility] Hematocrit [Volume Fraction] of Blood by Automated countOrdered By: Severo Aponte on 11-15-2024 Hematocrit (Bld) [Volume fraction] 43.5 % Normal 34.0-46.4 [facility] Comment on above: Performed By: #### H S TROP, CK, CMP, CBC ####[place] [id number] [facility] Hemoglobin Test strip Ql (U) Ordered By: Severo Aponte on 11-15-2024 Hemoglobin Ql (U) 1+ High Negative [facility] Hemoglobin [Mass/volume] in BloodOrdered By: Severo Aponte on 11-15-2024 Hemoglobin (Bld) [Mass/Vol] 14.9 g/dL Normal 11.8-15.4 [facility] Comment on above: Performed By: #### H S TROP, CK, CMP, CBC ####[address] Hyaline casts [#/area] in Ur ine sediment by Automated countOrdered By: Severo Aponte on 11-15-2024 Hyaline casts Auto (Urine sed) [#/Area] None [LPF] 0-8 [facility] Ketones [Presence] in Urine by Test stripOrdered By: Severo Aponte on 11-15-2024 Ketones Ql (U) Negative Normal Negative [facility] Comment on above: Order Comment: Name Collection Type:: Clean-Voided Midstream Performed By: #### A DDONUAPLUS ####[address] Leukocyte esterase [Presence ] in Urine by Test stripOrdered By: Severo Aponte on 11-15-2024 Leukocyte esterase Test strip Ql (U) Negative Normal Negative [facility] Comment on above: Order Comment: Name Collection Type:: Clean-Voided Midstream Performed By: #### A DDONUAPLUS ####[address] Leukocytes [#/area] in Urine sediment by Automated countOrdered By: Severo Aponte on 11-15-2024 WBC Auto (Urine sed) [#/Area] 1-2 [HPF] 0-4 [facility] Leukocytes [#/volume] correc jacki for nucleated erythrocytes in Blood by Automated counOrdered By: Severo Aponte on 11-15-2024 WBC corrected for nucl RBC Auto (Bld) [#/Vol] 8.7 10*3/uL 3.8-11.6 [facility] Leukocytes [#/volume] in Blo od by Automated countOrdered By: Severo Aponte on 11-15-2024 WBC (Bld) [#/Vol] 8.7 10*3/uL Normal 3.8-11.6 [facility] Comment on above: Performed By: #### H S TROP, CK, CMP, CBC ####[address] Lymphocytes [#/volume] in Bl ood by Automated countOrdered By: Severo Aponte on 11-15-2024 Lymphocytes (Bld) [#/Vol] 2.9 10*3/uL Normal 1.00-4.8 [facility] Comment on above: Performed By: #### H S TROP, CK, CMP, CBC ####[address] Lymphocytes/100 leukocytes i n Blood by Automated countOrdered By: Severo Aponte on 11-15-2024 Lymphocytes/100 WBC (Bld) 33.6 % Normal . [facility] Comment on above: Performed By: #### H S TROP, CK, CMP, CBC ####[address] MCH [Entitic mass] by Automa jacki countOrdered By: Severo Aponte on 11-15-2024 MCH (RBC) [Entitic mass] 30.7 pg Normal 24.7-34.3 [facility] Comment on above: Performed By: #### H S TROP, CK, CMP, CBC ####[address] MCHC Auto (RBC) [Mass/Vol]Or dered By: Severo Aponte on 11-15-2024 MCHC (RBC) [Mass/Vol] 34.2 g/dL 32.0-35.0 [facility] MCV [Entitic volume] by Auto mated countOrdered By: Severo Aponte on 11-15-2024 MCV (RBC) [Entitic vol] 89.7 fL Normal 80-100 [facility] Comment on above: Performed By: #### H S TROP, CK, CMP, CBC ####[address] Monocyte distribution width [Entitic volume] in Blood by AutomatedOrdered By: Severo Aponte on 11-15-2024 Monocyte distribution width Auto (Bld) [Entitic vol] 20.08 % High 0.00-20.00 [facility] Monocytes [#/volume] in Bloo d by Automated countOrdered By: Severo Aponte on 11-15-2024 Monocytes (Bld) [#/Vol] 0.7 10*3/uL Normal 0.0-0.8 [facility] Comment on above: Performed By: #### H S TROP, CK, CMP, CBC ####[facility] [id number] [place] [address] Monocytes/100 leukocytes in Blood by Automated countOrdered By: Severo Aponte on 11-15-2024 Monocytes/100 WBC (Bld) 7.8 % Normal . [facility] Comment on above: Performed By: #### H S TROP, CK, CMP, CBC ####[address] Neutrophils [#/volume] in Bl ood by Automated countOrdered By: Severo Aponte on 11-15-2024 Neutrophils (Bld) [#/Vol] 4.8 10*3/uL Normal 1.8-7.7 [facility] Comment on above: Performed By: #### H S TROP, CK, CMP, CBC ####[address] Neutrophils/100 leukocytes i n Blood by Automated countOrdered By: Severo Aponte on 11-15-2024 Neutrophils/100 WBC (Bld) 55.5 % Normal . [facility] Comment on above: Performed By: #### H S TROP, CK, CMP, CBC ####[address] Nitrite Test strip Ql (U)Ord ered By: Severo Aponte on 11-15-2024 Nitrite Ql (U) Negative Negative [facility] No Panel InformationOrdered By: Severo Aponte on 11-15-2024 > 60.0 mL/Min [facility] 86.57 [facility] Nucleated erythrocytes [Pres ence] in Blood by Automated countOrdered By: Severo Aponte on 11-15-2024 Nucleated RBC Auto Ql (Bld) 0.1 /100{WBC} 0-0.5 [facility] Platelet mean volume [Entiti c volume] in Blood by Automated countOrdered By: Severo Aponte on 11-15-2024 Platelet mean volume (Bld) [Entitic vol] 8.2 fL Normal 6.3-10.7 [facility] Comment on above: Performed By: #### H S TROP, CK, CMP, CBC ####[place] [address] Platelets [#/volume] in Bloo d by Automated countOrdered By: Severo Aponte on 11-15-2024 Platelets (Bld) [#/Vol] 420 10*3/uL Normal 150-450 [facility] Comment on above: Performed By: #### H S TROP, CK, CMP, CBC ####[address] Potassium [Moles/volume] in Serum or PlasmaOrdered By: Severo Aponte on 11-15-2024 Potassium [Moles/Vol] 3.7 mmol/L Normal 3.5-5.1 [facility] Comment on above: Performed By: #### H S TROP, CK, CMP, CBC ####[address] Protein Test strip (U) [Mass /Vol]Ordered By: Severo Aponte on 11-15-2024 Protein (U) [Mass/Vol] Negative Negative [facility] Protein [Mass/volume] in Ser um or PlasmaOrdered By: Severo Aponte on 11-15-2024 Protein [Mass/Vol] 8.2 g/dL Normal 6.4-8.9 [facility] Comment on above: Performed By: #### H S TROP, CK, CMP, CBC ####[address] Serum globulin measurement b y calculation (mass/volume)Ordered By: Severo Aponte on 11-15-2024 Globulin (S) [Mass/Vol] 3.5 g/dL Normal [facility] Comment on above: Performed By: #### H S TROP, CK, CMP, CBC ####[place] [id number] [facility] Serum or plasma albumin/glob ulin mass ratioOrdered By: Severo Aponte on 11-15-2024 Albumin/Globulin [Mass ratio] 1.3 {ratio} Normal [facility] Comment on above: Performed By: #### H S TROP, CK, CMP, CBC ####[place] [id number] [facility] Serum or plasma anion gap de terminationOrdered By: Severo Aponte on 11-15-2024 Anion gap [Moles/Vol] 13.3 mmol/L Normal 6.0-15.0 [facility] Comment on above: Performed By: #### H S TROP, CK, CMP, CBC ####[address] Sodium [Moles/volume] in Ser um or PlasmaOrdered By: Severo Aponte on 11-15-2024 Sodium [Moles/Vol] 139 mmol/L Normal 136-145 [facility] Comment on above: Performed By: #### H S TROP, CK, CMP, CBC ####[place] [id number] [facility] Specific gravity Test strip (U) [Rel density]Ordered By: Severo Aponte on 11-15-2024 Specific gravity (U) [Rel density] 1.008 1.001-1.030 [facility] Troponin I High Sensitivityo n 11-15-2024 Troponin I High Sensitivity 4 Normal 0-15 [facility] Comment on above: Result Comment: The Troponin units of report have been changed to meet the Chest Pain Accreditation requirement, element EC5.M1l2. Troponin units are changed from pg/ml to ng/L. Also, the decimal is removed and results are in whole numbers.PERFORMED BY:[address] [place], [place] [id number] MEDICAL SHAINA COLMENARES M.D. Performed By: #### H S TROP, CK, CMP, CBC ####[address] [address] [facility] Troponin I.cardiac [Mass/vol ume] in Serum or Plasma by Detection limit <= 0.01 ng/mLOrdered By: Severo Aponte on 11-15-2024 Troponin I.cardiac DL <= 0.01 ng/mL [Mass/Vol] 4 ng/L 0-15 [facility] Urea nitrogen [Mass/volume] in Serum or PlasmaOrdered By: Severo Aponte on 11-15-2024 Urea nitrogen [Mass/Vol] 15 mg/dL Normal 7- [facility] Comment on above: Performed By: #### H S TROP, CK, CMP, CBC ####[place] [address] [place] [id number] [facility] Urobilinogen Test strip (U) [Mass/Vol]Ordered By: Severo Aponte on 11-15-2024 Urobilinogen (U) [Mass/Vol] Normal mg/dL Normal [facility] X-ray reportOrdered By: Noe Hoyos on 11-15-2024 Study report [facility] Work Phone: XR chest 2V*on 11-15-2024 XR chest 2V* Normal [facility] pH of Urine by Test stripOrd ered By: Severo Aponte on 11-15-2024 pH (U) 7.0 [pH] Normal 5.0-9.0 [facility] Comment on above: Order Comment: Name Collection Type:: Clean-Voided Midstream Performed By: #### A DDONUAPLUS ####[place] [id number] [facility] Alanine aminotransferase [En zymatic activity/volume] in Serum or PlasmaOrdered By: Denver Hses on 11-12-2024 ALT [Catalytic activity/Vol] 21 U/L Normal [facility] Comment on above: Performed By: #### C BC, LIPASE, HEPATIC, BMP ####[place] [address] [place] [id number] [place] Albumin [Mass/volume] in Ser um or Plasma by Bromocresol green (BCG) dye binding methoOrdered By: Denver Hess on 11-12-2024 Albumin BCG dye [Mass/Vol] 4.4 g/dL 3.5-5.7 [facility] Alkaline phosphatase [Enzyma tic activity/volume] in Serum or PlasmaOrdered By: Denver Hess on 11-12-2024 ALP [Catalytic activity/Vol] 96 U/L Normal 34-104 [facility] Comment on above: Performed By: #### C BC, LIPASE, HEPATIC, BMP ####[address] [address] [facility] Appearance of UrineOrdered B y: Denver Hess on 11-12-2024 Appearance (U) Clear Normal Clear [facility] Comment on above: Order Comment: Name Collection Type:: Clean-Voided Midstream Performed By: #### A DDONUAPLUS ####[place] [id number] [facility] Aspartate aminotransferase [ Enzymatic activity/volume] in Serum or PlasmaOrdered By: Denver Hess on 11-12-2024 AST [Catalytic activity/Vol] 17 U/L Normal 13-39 [facility] Comment on above: Performed By: #### C BC, LIPASE, HEPATIC, BMP ####[address] [address] [facility] Bacteria [Presence] in Urine by AutomatedOrdered By: Denver Hess on 11-12-2024 Bacteria Auto Ql (U) None seen [HPF] None Seen [facility] Basic Metabolic Panelon 10-30 Creatinine Clr Calc Pharmacy 93.59 Normal [facility] Comment on above: Performed By: #### C BC, LIPASE, HEPATIC, BMP ####[address] [address] [place] GFR/1.73 sq M.predicted MDRD (S/P/Bld) [Vol rate/Area] mL/min/{1.73_m2} Normal [facility] Comment on above: Performed By: #### C BC, LIPASE, HEPATIC, BMP ####[address] [address] [place] Basophils [#/volume] in Bloo d by Automated countOrdered By: Denver Hess on 11-12-2024 Basophils (Bld) [#/Vol] 0.1 10*3/uL Normal 0.0-0.2 [facility] Comment on above: Result Comment: PERF ORMED BY:[address] [place], [place] [id number] MEDICAL SHAINA COLMENARES M.D. Performed By: #### C BC, LIPASE, HEPATIC, BMP ####[place] [address] [place] [id number] [place] [facility] Basophils/100 leukocytes in Blood by Automated countOrdered By: Denver Hess on 11-12-2024 Basophils/100 WBC (Bld) 1.0 % Normal . [facility] Comment on above: Performed By: #### C BC, LIPASE, HEPATIC, BMP ####[place] [address] [place] [id number] [facility] Bilirubin Test strip Ql (U)O rdered By: Denver Hess on 11-12-2024 Bilirubin Ql (U) Negative Negative [facility] Bilirubin.direct [Mass/volum e] in Serum or PlasmaOrdered By: Denver Hess on 11-12-2024 Bilirubin.direct [Mass/Vol] 0.00 mg/dL Low 0.03-0.18 [facility] Bilirubin.total [Mass/volume ] in Serum or PlasmaOrdered By: Denver Hess on 11-12-2024 Bilirubin [Mass/Vol] 0.3 mg/dL Normal 0.3-1.0 [facility] Comment on above: Performed By: #### C BC, LIPASE, HEPATIC, BMP ####[address] [address] [facility] CT abdomen pelvis wo conon 0 11-12-2024 CT abdomen pelvis wo con Normal [facility] Calcium [Mass/volume] in Ser um or PlasmaOrdered By: Denver Hess on 11-12-2024 Calcium [Mass/Vol] 9.3 mg/dL Normal 8.6-10.3 [facility] Comment on above: Performed By: #### C BC, LIPASE, HEPATIC, BMP ####[facility] [address] Carbon dioxide, total [Moles /volume] in Serum or PlasmaOrdered By: Denver Hess on 11-12-2024 CO2 [Moles/Vol] 26.8 mmol/L Normal 21.0-31.0 [facility] Comment on above: Performed By: #### C BC, LIPASE, HEPATIC, BMP ####[address] Chloride [Moles/volume] in S jett or PlasmaOrdered By: Denver Hess on 11-12-2024 Chloride [Moles/Vol] 102 mmol/L Normal 98-107 [facility] Comment on above: Performed By: #### C BC, LIPASE, HEPATIC, BMP ####[address] Color of Urine by AutoOrdere d By: Denver Hess on 11-12-2024 Color (U) Colorless Normal Yellow [facility] Comment on above: Order Comment: Name Collection Type:: Clean-Voided Midstream Performed By: #### A DDONUAPLUS ####[address] Complete Blood Count Auto Di ffon 11-12-2024 Mean Corpuscular HGB Conc 34.6 g/dL Normal 32.0-35.0 [facility] Comment on above: Performed By: #### C BC, LIPASE, HEPATIC, BMP ####[place] [address] [place] Monocytes/100 WBC (Bld) 19.11 % Normal 0.00-20.00 [facility] Comment on above: Performed By: #### C BC, LIPASE, HEPATIC, BMP ####[address] NRBC% 0.1 /100{WBC} Normal 0-0.5 [facility] Comment on above: Performed By: #### C BC, LIPASE, HEPATIC, BMP ####[address] White Blood Count 8.9 [CFU]/mL Normal 3.8-11.6 [facility] Comment on above: Performed By: #### C BC, LIPASE, HEPATIC, BMP ####[address] [address] [facility] Creatinine [Mass/volume] in Serum or PlasmaOrdered By: Denver Hess on 11-12-2024 Creatinine [Mass/Vol] 0.74 mg/dL Normal 0.60-1.20 [facility] Comment on above: Performed By: #### C BC, LIPASE, HEPATIC, BMP ####[address] [address] [facility] Dipstick and Microscopicon 0 11-12-2024 Bacteria,Urine None Seen Normal None Seen [facility] Comment on above: Order Comment: Name Collection Type:: Clean-Voided Midstream Performed By: #### A DDONUAPLUS ####[address] [address] [facility] Bilirubin,Urine Negative Normal Negative [facility] Comment on above: Order Comment: Name Collection Type:: Clean-Voided Midstream Performed By: #### A DDONUAPLUS ####[address] [address] [facility] Glucose Ql (U) Normal Normal Normal [facility] Comment on above: Order Comment: Name Collection Type:: Clean-Voided Midstream Performed By: #### A DDONUAPLUS ####[address] [address] [facility] Hyaline Casts,Urine None Normal 0-8 [facility] Comment on above: Order Comment: Name Collection Type:: Clean-Voided Midstream Performed By: #### A DDONUAPLUS ####[address] [address] [facility] Mucus,Urine Rare Normal [facility] Comment on above: Order Comment: Name Collection Type:: Clean-Voided Midstream Result Comment: PERF ORMED BY:[address] [place] [id number] MEDICAL DIRECTORMARIO S DARRIAN M.D. Performed By: #### A DDONUAPLUS ####[address] [address] [facility] Nitrite,Urine Negative Normal Negative [facility] Comment on above: Order Comment: Name Collection Type:: Clean-Voided Midstream Performed By: #### A DDONUAPLUS ####[address] [address] [facility] Occult Blood,Urine 1+ Normal Negative [facility] Comment on above: Order Comment: Name Collection Type:: Clean-Voided Midstream Result Comment: PERF ORMED BY:[address] [place], [place] [id number] MEDICAL DIRECTORSUZY COLMENARES M.D. Performed By: #### A DDONUAPLUS ####[address] [address] [facility] Protein,Urine Negative Normal Negative [facility] Comment on above: Order Comment: Name Collection Type:: Clean-Voided Midstream Performed By: #### A DDONUAPLUS ####[address] [address] [facility] RBC,Urine 1-2 Normal 0-4 [facility] Comment on above: Order Comment: Name Collection Type:: Clean-Voided Midstream Performed By: #### A DDONUAPLUS ####[address] [address] [facility] Specificy [place],Urine 1.006 Normal 1.001-1.030 [facility] Comment on above: Order Comment: Name Collection Type:: Clean-Voided Midstream Performed By: #### A DDONUAPLUS ####[address] [address] [place] Squamous Epithelial Cell,Urine 1-2 Normal 0-2 [facility] Comment on above: Order Comment: Name Collection Type:: Clean-Voided Midstream Performed By: #### A DDONUAPLUS ####[address] [address] [facility] Urobilinogen,Urine Normal Normal Normal [facility] Comment on above: Order Comment: Name Collection Type:: Clean-Voided Midstream Performed By: #### A DDONUAPLUS ####[address] WBC,Urine None Seen Normal 0-4 [facility] Comment on above: Order Comment: Name Collection Type:: Clean-Voided Midstream Performed By: #### A DDONUAPLUS ####[address] Eosinophils [#/volume] in Bl ood by Automated countOrdered By: Denver Hess on 11-12-2024 Eosinophils (Bld) [#/Vol] 0.3 10*3/uL Normal 0.0-0.45 [facility] Comment on above: Performed By: #### C BC, LIPASE, HEPATIC, BMP ####[address] Eosinophils/100 leukocytes i n Blood by Automated countOrdered By: Denver Hess on 11-12-2024 Eosinophils/100 WBC (Bld) 3.8 % Normal . [facility] Comment on above: Performed By: #### C BC, LIPASE, HEPATIC, BMP ####[address] Epithelial cells.squamous [# /area] in Urine sediment by Automated countOrdered By: Denver Hess on 11-12-2024 Epithelial cells.squamous Auto (Urine sed) [#/Area] 1-2 [HPF] 0-2 [facility] Erythrocyte distribution wid th [Ratio] by Automated countOrdered By: Denver Hess on 11-12-2024 Erythrocyte distribution width (RBC) [Ratio] 13.9 % Normal 11.9-15.3 [facility] Comment on above: Performed By: #### C BC, LIPASE, HEPATIC, BMP ####[address] Erythrocytes [#/area] in Uri ne sediment by Automated countOrdered By: Denver Hess on 11-12-2024 RBC Auto (Urine sed) [#/Area] 1-2 [HPF] 0-4 [facility] Erythrocytes [#/volume] in B lood by Automated countOrdered By: Denver Hess on 11-12-2024 RBC (Bld) [#/Vol] 4.67 10*6/uL Normal 3.60-5.00 [facility] Comment on above: Performed By: #### C BC, LIPASE, HEPATIC, BMP ####[place] [address] [place] [id number] [facility] Glucose [Mass/volume] in Ser um or PlasmaOrdered By: Denver Hess on 11-12-2024 Glucose [Mass/Vol] 103 mg/dL High 70-100 [facility] Comment on above: Result Comment: [facility] Glucose Reference Range is dependent on time and content of last meal. Glucose of more than 200 mg/dL in a nonstressed, ambulatory subject supports the diagnosis of Diabetes Mellitus. ADA recommended reference range Performed By: #### C BC, LIPASE, HEPATIC, BMP ####[place] [id number] [facility] Glucose [Mass/volume] in Uri ne by Test stripOrdered By: Denver Hess on 11-12-2024 Glucose Test strip (U) [Mass/Vol] Normal mg/dL Normal [facility] Hematocrit [Volume Fraction] of Blood by Automated countOrdered By: Denver Hess on 11-12-2024 Hematocrit (Bld) [Volume fraction] 41.7 % Normal 34.0-46.4 [facility] Comment on above: Performed By: #### C BC, LIPASE, HEPATIC, BMP ####[place] [id number] [facility] Hemoglobin Test strip Ql (U) Ordered By: Denver Hess on 11-12-2024 Hemoglobin Ql (U) 1+ High Negative [facility] Hemoglobin [Mass/volume] in BloodOrdered By: Denver Hess on 11-12-2024 Hemoglobin (Bld) [Mass/Vol] 14.4 g/dL Normal 11.8-15.4 [facility] Comment on above: Performed By: #### C BC, LIPASE, HEPATIC, BMP ####[place] [id number] [facility] Hepatic Panelon 11-12-2024 Albumin [Mass/Vol] 4.4 g/dL Normal 3.5-5.7 [facility] Comment on above: Performed By: #### C BC, LIPASE, HEPATIC, BMP ####[address] Bilirubin,Indirect 0.3 mg/dL Normal [facility] Comment on above: Performed By: #### C BC, LIPASE, HEPATIC, BMP ####[address] Bilirubin.indirect [Mass/Vol] 0.00 mg/dL Low 0.03-0.18 [facility] Comment on above: Result Comment: If t he DBIL is less than 0.1, IBIL is not able to be calculated. Performed By: #### C BC, LIPASE, HEPATIC, BMP ####[address] Hyaline casts [#/area] in Ur ine sediment by Automated countOrdered By: Denver Hess on 11-12-2024 Hyaline casts Auto (Urine sed) [#/Area] None [LPF] 0-8 [facility] Ketones [Presence] in Urine by Test stripOrdered By: Denver Hess on 11-12-2024 Ketones Ql (U) Negative Normal Negative [facility] Comment on above: Order Comment: Name Collection Type:: Clean-Voided Midstream Performed By: #### A DDONUAPLUS ####[address] Leukocyte esterase [Presence ] in Urine by Test stripOrdered By: Denver Hess on 11-12-2024 Leukocyte esterase Test strip Ql (U) Negative Normal Negative [facility] Comment on above: Order Comment: Name Collection Type:: Clean-Voided Midstream Performed By: #### A DDONUAPLUS ####[address] Leukocytes [#/area] in Urine sediment by Automated countOrdered By: Denver Hess on 11-12-2024 WBC Auto (Urine sed) [#/Area] None seen [HPF] 0-4 [facility] Leukocytes [#/volume] correc jacki for nucleated erythrocytes in Blood by Automated counOrdered By: Denver Hess on 11-12-2024 WBC corrected for nucl RBC Auto (Bld) [#/Vol] 8.9 10*3/uL 3.8-11.6 [facility] Leukocytes [#/volume] in Blo od by Automated countOrdered By: Denver Hess on 11-12-2024 WBC (Bld) [#/Vol] 8.9 10*3/uL Normal 3.8-11.6 [facility] Comment on above: Performed By: #### C BC, LIPASE, HEPATIC, BMP ####[place] [address] [place] [id number] [facility] Lipase [Enzymatic activity/v olume] in Serum or PlasmaOrdered By: Denver Hess on 11-12-2024 Lipase [Catalytic activity/Vol] 80.0 U/L Normal 11.0-82.0 [facility] Comment on above: Result Comment: PERF ORMED BY:[address] [place], [place] [id number] MEDICAL DIRECTORSUZY COLMENARES M.D. Performed By: #### C BC, LIPASE, HEPATIC, BMP ####[address] [address] [facility] Lymphocytes [#/volume] in Bl ood by Automated countOrdered By: Denver Hess on 11-12-2024 Lymphocytes (Bld) [#/Vol] 3.5 10*3/uL Normal 1.00-4.8 [facility] Comment on above: Performed By: #### C BC, LIPASE, HEPATIC, BMP ####[place] [id number] [place] Lymphocytes/100 leukocytes i n Blood by Automated countOrdered By: Denver Hess on 11-12-2024 Lymphocytes/100 WBC (Bld) 39.2 % Normal . [facility] Comment on above: Performed By: #### C BC, LIPASE, HEPATIC, BMP ####[place] [address] MCH [Entitic mass] by Automa jacki countOrdered By: Denvre Hess on 11-12-2024 MCH (RBC) [Entitic mass] 30.8 pg Normal 24.7-34.3 [facility] Comment on above: Performed By: #### C BC, LIPASE, HEPATIC, BMP ####[address] MCHC Auto (RBC) [Mass/Vol]Or dered By: Denver Hess on 11-12-2024 MCHC (RBC) [Mass/Vol] 34.6 g/dL 32.0-35.0 [facility] MCV [Entitic volume] by Auto mated countOrdered By: Denver Hess on 11-12-2024 MCV (RBC) [Entitic vol] 89.3 fL Normal 80-100 [facility] Comment on above: Performed By: #### C BC, LIPASE, HEPATIC, BMP ####[address] Monocyte distribution width [Entitic volume] in Blood by AutomatedOrdered By: Denver Hess on 11-12-2024 Monocyte distribution width Auto (Bld) [Entitic vol] 19.11 % 0.00-20.00 [facility] Monocytes [#/volume] in Bloo d by Automated countOrdered By: Denver Hess on 11-12-2024 Monocytes (Bld) [#/Vol] 0.6 10*3/uL Normal 0.0-0.8 [facility] Comment on above: Performed By: #### C BC, LIPASE, HEPATIC, BMP ####[address] Monocytes/100 leukocytes in Blood by Automated countOrdered By: Denver Hess on 11-12-2024 Monocytes/100 WBC (Bld) 7.2 % Normal . [facility] Comment on above: Performed By: #### C BC, LIPASE, HEPATIC, BMP ####[address] Mucus [Presence] in Urine by AutomatedOrdered By: Denver Hess on 11-12-2024 Mucus Auto Ql (U) Rare [LPF] [facility] Neutrophils [#/volume] in Bl ood by Automated countOrdered By: Denver Hess on 11-12-2024 Neutrophils (Bld) [#/Vol] 4.3 10*3/uL Normal 1.8-7.7 [facility] Comment on above: Performed By: #### C BC, LIPASE, HEPATIC, BMP ####[place] [address] Neutrophils/100 leukocytes i n Blood by Automated countOrdered By: Denver Hess on 11-12-2024 Neutrophils/100 WBC (Bld) 48.8 % Normal . [facility] Comment on above: Performed By: #### C BC, LIPASE, HEPATIC, BMP ####[address] Nitrite Test strip Ql (U)Ord ered By: Denver Hess on 11-12-2024 Nitrite Ql (U) Negative Negative [facility] No Panel InformationOrdered By: Denver Hess on 11-12-2024 > 60.0 mL/Min [facility] 93.59 [facility] Nucleated erythrocytes [Pres ence] in Blood by Automated countOrdered By: Denver Hess on 11-12-2024 Nucleated RBC Auto Ql (Bld) 0.1 /100{WBC} 0-0.5 [facility] Platelet mean volume [Entiti c volume] in Blood by Automated countOrdered By: Denver Hess on 11-12-2024 Platelet mean volume (Bld) [Entitic vol] 8.1 fL Normal 6.3-10.7 [facility] Comment on above: Performed By: #### C BC, LIPASE, HEPATIC, BMP ####[place] [id number] [facility] Platelets [#/volume] in Bloo d by Automated countOrdered By: Denver Hess on 11-12-2024 Platelets (Bld) [#/Vol] 395 10*3/uL Normal 150-450 [facility] Comment on above: Performed By: #### C BC, LIPASE, HEPATIC, BMP ####[address] Potassium [Moles/volume] in Serum or PlasmaOrdered By: Denver Hess on 11-12-2024 Potassium [Moles/Vol] 3.5 mmol/L Normal 3.5-5.1 [facility] Comment on above: Performed By: #### C BC, LIPASE, HEPATIC, BMP ####[address] Protein Test strip (U) [Mass /Vol]Ordered By: Denver Hess on 11-12-2024 Protein (U) [Mass/Vol] Negative Negative [facility] Protein [Mass/volume] in Ser um or PlasmaOrdered By: Denver Hess on 11-12-2024 Protein [Mass/Vol] 7.7 g/dL Normal 6.4-8.9 [facility] Comment on above: Performed By: #### C BC, LIPASE, HEPATIC, BMP ####[address] Serum globulin measurement b y calculation (mass/volume)Ordered By: Denver Hess on 11-12-2024 Globulin (S) [Mass/Vol] 3.3 g/dL Normal [facility] Comment on above: Performed By: #### C BC, LIPASE, HEPATIC, BMP ####[address] Serum or plasma albumin/glob ulin mass ratioOrdered By: Denver Hess on 11-12-2024 Albumin/Globulin [Mass ratio] 1.3 {ratio} Normal [facility] Comment on above: Performed By: #### C BC, LIPASE, HEPATIC, BMP ####[address] Serum or plasma anion gap de terminationOrdered By: Denver Hess on 11-12-2024 Anion gap [Moles/Vol] 12.7 mmol/L Normal 6.0-15.0 [facility] Comment on above: Performed By: #### C BC, LIPASE, HEPATIC, BMP ####[address] Serum or plasma non-glucuron idated bilirubin measurement (mass/volume)Ordered By: Denver Hess on 11-12-2024 Bilirubin.indirect [Mass/Vol] 0.3 mg/dL [facility] Sodium [Moles/volume] in Ser um or PlasmaOrdered By: Denver Hess on 11-12-2024 Sodium [Moles/Vol] 138 mmol/L Normal 136-145 [facility] Comment on above: Performed By: #### C BC, LIPASE, HEPATIC, BMP ####[address] Specific gravity Test strip (U) [Rel density]Ordered By: Denver Hess on 11-12-2024 Specific gravity (U) [Rel density] 1.006 1.001-1.030 [facility] Urea nitrogen [Mass/volume] in Serum or PlasmaOrdered By: Denver Hess on 11-12-2024 Urea nitrogen [Mass/Vol] 18 mg/dL Normal 7-25 [facility] Comment on above: Performed By: #### C BC, LIPASE, HEPATIC, BMP ####[address] Urobilinogen Test strip (U) [Mass/Vol]Ordered By: Denver Hess on 11-12-2024 Urobilinogen (U) [Mass/Vol] Normal mg/dL Normal [facility] pH of Urine by Test stripOrd ered By: Denver Hess on 11-12-2024 pH (U) 5.5 [pH] Normal 5.0-9.0 [facility] Comment on above: Order Comment: Name Collection Type:: Clean-Voided Midstream Performed By: #### A DDONUAPLUS ####[address] Alanine aminotransferase [En zymatic activity/volume] in Serum or PlasmaOrdered By: Dagmar Bose on 11-03-2024 ALT [Catalytic activity/Vol] 20 U/L Normal 7-52 [facility] Comment on above: Performed By: #### L IPASE, BMP, CBC, HEPATIC ####[place] [id number] [facility] Albumin [Mass/volume] in Ser um or Plasma by Bromocresol green (BCG) dye binding methoOrdered By: Dagmar Bose on 11-03-2024 Albumin BCG dye [Mass/Vol] 4.3 g/dL 3.5-5.7 [facility] Alkaline phosphatase [Enzyma tic activity/volume] in Serum or PlasmaOrdered By: Dagmar Bose on 11-03-2024 ALP [Catalytic activity/Vol] 93 U/L Normal 34-104 [facility] Comment on above: Performed By: #### L IPASE, BMP, CBC, HEPATIC ####[place] [id number] [facility] Appearance of UrineOrdered B y: PROVIDER TEMP on 11-03-2024 Appearance (U) Clear Normal Clear [facility] Comment on above: Order Comment: Name Collection Type:: Voided Performed By: #### A DDONUAPLUS ####[place] [id number] [facility] Aspartate aminotransferase [ Enzymatic activity/volume] in Serum or PlasmaOrdered By: Dagmar Bose on 11-03-2024 AST [Catalytic activity/Vol] 18 U/L Normal 13-39 [facility] Comment on above: Performed By: #### L IPASE, BMP, CBC, HEPATIC ####[place] [id number] [facility] Bacteria [Presence] in Urine by AutomatedOrdered By: PROVIDER TEMP on 11-03-2024 Bacteria Auto Ql (U) None seen [HPF] None Seen [facility] Basic Metabolic Panelon Creatinine Clr Calc Pharmacy 122.75 Normal [facility] Comment on above: Performed By: #### L IPASE, BMP, CBC, HEPATIC ####[place] [address] [facility] GFR/1.73 sq M.predicted MDRD (S/P/Bld) [Vol rate/Area] mL/min/{1.73_m2} Normal [facility] Comment on above: Performed By: #### L IPASE, BMP, CBC, HEPATIC ####[place] [address] [place] [id number] [facility] Basophils [#/volume] in Bloo d by Automated countOrdered By: Dagmar Bose on 11-03-2024 Basophils (Bld) [#/Vol] 0.1 10*3/uL Normal 0.0-0.2 [facility] Comment on above: Result Comment: PERF ORMED BY:[address] [place], [place] [id number] MEDICAL DIRECTORSUZY COLMENARES M.D. Performed By: #### L IPASE, BMP, CBC, HEPATIC ####[place] [address] [place] [id number] [facility] Basophils/100 leukocytes in Blood by Automated countOrdered By: Dagmar Bose on 11-03-2024 Basophils/100 WBC (Bld) 1.0 % Normal . [facility] Comment on above: Performed By: #### L IPASE, BMP, CBC, HEPATIC ####[place] [id number] [facility] Bilirubin Test strip Ql (U)O rdered By: AJAY COPPOLA on 11-03-2024 Bilirubin Ql (U) Negative Negative [facility] Bilirubin.direct [Mass/volum e] in Serum or PlasmaOrdered By: Dagmar Bose on 11-03-2024 Bilirubin.direct [Mass/Vol] 0.00 mg/dL Low 0.03-0.18 [facility] Bilirubin.total [Mass/volume ] in Serum or PlasmaOrdered By: Dagmar Bose on 11-03-2024 Bilirubin [Mass/Vol] 0.3 mg/dL Normal 0.3-1.0 [facility] Comment on above: Performed By: #### L IPASE, BMP, CBC, HEPATIC ####[place] [id number] [facility] CT abdomen pelvis w conon CT abdomen pelvis w con Normal T he [facility] Calcium [Mass/volume] in Ser um or PlasmaOrdered By: Dagmar Bose on 11-03-2024 Calcium [Mass/Vol] 9.3 mg/dL Normal 8.6-10.3 [facility] Comment on above: Performed By: #### L IPASE, BMP, CBC, HEPATIC ####[address] Carbon dioxide, total [Moles /volume] in Serum or PlasmaOrdered By: Dagmar oBse on 11-03-2024 CO2 [Moles/Vol] 24.3 mmol/L Normal 21.0-31.0 [facility] Comment on above: Performed By: #### L IPASE, BMP, CBC, HEPATIC ####[address] Chloride [Moles/volume] in S jett or PlasmaOrdered By: Dagmar Bose on 11-03-2024 Chloride [Moles/Vol] 104 mmol/L Normal 98-107 [facility] Comment on above: Performed By: #### L IPASE, BMP, CBC, HEPATIC ####[address] Color of Urine by AutoOrdere d By: AJAY TEMP on 11-03-2024 Color (U) Yellow Normal Yellow [facility] Comment on above: Order Comment: Name Collection Type:: Voided Performed By: #### A DDONUAPLUS ####[address] Complete Blood Count Auto Di ffon 11-03-2024 Mean Corpuscular HGB Conc 34.8 g/dL Normal 32.0-35.0 [facility] Comment on above: Performed By: #### L IPASE, BMP, CBC, HEPATIC ####[address] Monocytes/100 WBC (Bld) 19.88 % Normal 0.00-20.00 [facility] Comment on above: Performed By: #### L IPASE, BMP, CBC, HEPATIC ####[address] NRBC% 0.1 /100{WBC} Normal 0-0.5 [facility] Comment on above: Performed By: #### L IPASE, BMP, CBC, HEPATIC ####[address] White Blood Count 9.3 [CFU]/mL Normal 3.8-11.6 [facility] Comment on above: Performed By: #### L IPASE, BMP, CBC, HEPATIC ####[address] Creatinine [Mass/volume] in Serum or PlasmaOrdered By: Dagmar Bose on 11-03-2024 Creatinine [Mass/Vol] 0.58 mg/dL Low 0.60-1.20 [facility] Comment on above: Performed By: #### L IPASE, BMP, CBC, HEPATIC ####[address] Dipstick and Microscopicon 0 11-03-2024 Bacteria,Urine None Seen Normal None Seen [facility] Comment on above: Order Comment: Name Collection Type:: Voided Performed By: #### A DDONUAPLUS ####[address] Bilirubin,Urine Negative Normal Negative [facility] Comment on above: Order Comment: Name Collection Type:: Voided Performed By: #### A DDONUAPLUS ####[address] Glucose Ql (U) Normal Normal Normal [facility] Comment on above: Order Comment: Name Collection Type:: Voided Performed By: #### A DDONUAPLUS ####[address] Hyaline Casts,Urine None Normal 0-8 [facility] Comment on above: Order Comment: Name Collection Type:: Voided Performed By: #### A DDONUAPLUS ####[address] Mucus,Urine 2+ [LPF] Critically abnormal [facility] Comment on above: Order Comment: Name Collection Type:: Voided Result Comment: PERF ORMED BY:[address] [address] [place], [place] [phone] MEDICAL SHAINA COLMENARES M.D. Performed By: #### A DDONUAPLUS ####[address] [address] [facility] Nitrite,Urine Negative Normal Negative [facility] Comment on above: Order Comment: Name Collection Type:: Voided Performed By: #### A DDONUAPLUS ####[address] [address] [facility] Occult Blood,Urine 2+ Normal Negative [facility] Comment on above: Order Comment: Name Collection Type:: Voided Result Comment: PERF ORMED BY:[address] [place], [place] [phone] MEDICAL SHAINA COLMENARES M.D. Performed By: #### A DDONUAPLUS ####[address] [address] [facility] Protein,Urine Negative Normal Negative [facility] Comment on above: Order Comment: Name Collection Type:: Voided Performed By: #### A DDONUAPLUS ####[address] [address] [facility] RBC,Urine 5-9 Normal 0-4 [facility] Comment on above: Order Comment: Name Collection Type:: Voided Performed By: #### A DDONUAPLUS ####[address] [address] [facility] Specificy [place],Urine 1.029 Normal 1.001-1.030 [facility] Comment on above: Order Comment: Name Collection Type:: Voided Performed By: #### A DDONUAPLUS ####[address] [address] [facility] Squamous Epithelial Cell,Urine 3-4 Normal 0-2 [facility] Comment on above: Order Comment: Name Collection Type:: Voided Performed By: #### A DDONUAPLUS ####[address] Urobilinogen,Urine Normal Normal Normal [facility] Comment on above: Order Comment: Name Collection Type:: Voided Performed By: #### A DDONUAPLUS ####[address] WBC,Urine 1-2 Normal 0-4 [facility] Comment on above: Order Comment: Name Collection Type:: Voided Performed By: #### A DDONUAPLUS ####[address] Eosinophils [#/volume] in Bl ood by Automated countOrdered By: Dagmar Bose on 11-03-2024 Eosinophils (Bld) [#/Vol] 0.3 10*3/uL Normal 0.0-0.45 [facility] Comment on above: Performed By: #### L IPASE, BMP, CBC, HEPATIC ####[address] Eosinophils/100 leukocytes i n Blood by Automated countOrdered By: Dagmar Bose on 11-03-2024 Eosinophils/100 WBC (Bld) 2.7 % Normal . [facility] Comment on above: Performed By: #### L IPASE, BMP, CBC, HEPATIC ####[address] Epithelial cells.squamous [# /area] in Urine sediment by Automated countOrdered By: AJAY COPPOLA on 11-03-2024 Epithelial cells.squamous Auto (Urine sed) [#/Area] 3-4 [HPF] High 0-2 [facility] Erythrocyte distribution wid th [Ratio] by Automated countOrdered By: Dagmar Bose on 11-03-2024 Erythrocyte distribution width (RBC) [Ratio] 14.3 % Normal 11.9-15.3 [facility] Comment on above: Performed By: #### L IPASE, BMP, CBC, HEPATIC ####[address] Erythrocytes [#/area] in Uri ne sediment by Automated countOrdered By: PROVIDER TEMP on 11-03-2024 RBC Auto (Urine sed) [#/Area] 5-9 [HPF] High 0-4 [facility] Erythrocytes [#/volume] in B lood by Automated countOrdered By: Dagmar Bose on 11-03-2024 RBC (Bld) [#/Vol] 4.49 10*6/uL Normal 3.60-5.00 [facility] Comment on above: Performed By: #### L IPASE, BMP, CBC, HEPATIC ####[facility] [id number] [place] [address] [facility] Glucose [Mass/volume] in Ser um or PlasmaOrdered By: Dagmar Bose on 11-03-2024 Glucose [Mass/Vol] 103 mg/dL High 70-100 [facility] Comment on above: Result Comment: [facility] Glucose Reference Range is dependent on time and content of last meal. Glucose of more than 200 mg/dL in a nonstressed, ambulatory subject supports the diagnosis of Diabetes Mellitus. ADA recommended reference range Performed By: #### L IPASE, BMP, CBC, HEPATIC ####[address] [place] [id number] [facility] Glucose [Mass/volume] in Uri ne by Test stripOrdered By: PROVIDER TEMP on 11-03-2024 Glucose Test strip (U) [Mass/Vol] Normal mg/dL Normal [facility] Hematocrit [Volume Fraction] of Blood by Automated countOrdered By: Dagmar Bose on 11-03-2024 Hematocrit (Bld) [Volume fraction] 40.1 % Normal 34.0-46.4 [facility] Comment on above: Performed By: #### L IPASE, BMP, CBC, HEPATIC ####[facility] [id number] [place] [id number] [facility] Hemoglobin Test strip Ql (U) Ordered By: PROVIDER TEMP on 11-03-2024 Hemoglobin Ql (U) 2+ High Negative [facility] Hemoglobin [Mass/volume] in BloodOrdered By: Dagmar Bose on 11-03-2024 Hemoglobin (Bld) [Mass/Vol] 14.0 g/dL Normal 11.8-15.4 [facility] Comment on above: Performed By: #### L IPASE, BMP, CBC, HEPATIC ####[address] Hepatic Panelon 11-03-2024 Albumin [Mass/Vol] 4.3 g/dL Normal 3.5-5.7 [facility] Comment on above: Performed By: #### L IPASE, BMP, CBC, HEPATIC ####[address] Bilirubin,Indirect 0.3 mg/dL Normal [facility] Comment on above: Performed By: #### L IPASE, BMP, CBC, HEPATIC ####[address] Bilirubin.indirect [Mass/Vol] 0.00 mg/dL Low 0.03-0.18 [facility] Comment on above: Result Comment: If t he DBIL is less than 0.1, IBIL is not able to be calculated. Performed By: #### L IPASE, BMP, CBC, HEPATIC ####[address] Hyaline casts [#/area] in Ur ine sediment by Automated countOrdered By: PROVIDER TEMP on 11-03-2024 Hyaline casts Auto (Urine sed) [#/Area] None [LPF] 0-8 [facility] Ketones [Presence] in Urine by Test stripOrdered By: PROVIDER TEMP on 11-03-2024 Ketones Ql (U) Negative Normal Negative [facility] Comment on above: Order Comment: Name Collection Type:: Voided Performed By: #### A DDONUAPLUS ####[address] Leukocyte esterase [Presence ] in Urine by Test stripOrdered By: PROVIDER TEMP on 11-03-2024 Leukocyte esterase Test strip Ql (U) Negative Normal Negative [facility] Comment on above: Order Comment: Name Collection Type:: Voided Performed By: #### A DDONUAPLUS ####[place] [id number] [facility] Leukocytes [#/area] in Urine sediment by Automated countOrdered By: AJAY WILKINSP on 11-03-2024 WBC Auto (Urine sed) [#/Area] 1-2 [HPF] 0-4 [facility] Leukocytes [#/volume] correc jacki for nucleated erythrocytes in Blood by Automated counOrdered By: Dagmar Bose on 11-03-2024 WBC corrected for nucl RBC Auto (Bld) [#/Vol] 9.3 10*3/uL 3.8-11.6 [facility] Leukocytes [#/volume] in Blo od by Automated countOrdered By: Dagmar Bose on 11-03-2024 WBC (Bld) [#/Vol] 9.3 10*3/uL Normal 3.8-11.6 [facility] Comment on above: Performed By: #### L IPASE, BMP, CBC, HEPATIC ####[place] [id number] [facility] Lipase [Enzymatic activity/v olume] in Serum or PlasmaOrdered By: Dagmar Bose on 11-03-2024 Lipase [Catalytic activity/Vol] 75.0 U/L Normal 11.0-82.0 [facility] Comment on above: Result Comment: PERF ORMED BY:[address] [place], [place] [phone] MEDICAL SHAINA COLMENARES M.D. Performed By: #### L IPASE, BMP, CBC, HEPATIC ####[place] [id number] [facility] Lymphocytes [#/volume] in Bl ood by Automated countOrdered By: Dagmar Bose on 11-03-2024 Lymphocytes (Bld) [#/Vol] 2.7 10*3/uL Normal 1.00-4.8 [facility] Comment on above: Performed By: #### L IPASE, BMP, CBC, HEPATIC ####[address] [place] [id number] [place] Lymphocytes/100 leukocytes i n Blood by Automated countOrdered By: Dagmar Bose on 11-03-2024 Lymphocytes/100 WBC (Bld) 29.5 % Normal . [facility] Comment on above: Performed By: #### L IPASE, BMP, CBC, HEPATIC ####[address] MCH [Entitic mass] by Automa jacki countOrdered By: Dagmar Bose on 11-03-2024 MCH (RBC) [Entitic mass] 31.0 pg Normal 24.7-34.3 [facility] Comment on above: Performed By: #### L IPASE, BMP, CBC, HEPATIC ####[address] MCHC Auto (RBC) [Mass/Vol]Or dered By: Dagmra Bose on 11-03-2024 MCHC (RBC) [Mass/Vol] 34.8 g/dL 32.0-35.0 [facility] MCV [Entitic volume] by Auto mated countOrdered By: Dagmar Bose on 11-03-2024 MCV (RBC) [Entitic vol] 89.1 fL Normal 80-100 [facility] Comment on above: Performed By: #### L IPASE, BMP, CBC, HEPATIC ####[address] Monocyte distribution width [Entitic volume] in Blood by AutomatedOrdered By: Dagmar Bose on 11-03-2024 Monocyte distribution width Auto (Bld) [Entitic vol] 19.88 % 0.00-20.00 [facility] Monocytes [#/volume] in Bloo d by Automated countOrdered By: Dagmar Bose on 11-03-2024 Monocytes (Bld) [#/Vol] 0.6 10*3/uL Normal 0.0-0.8 [facility] Comment on above: Performed By: #### L IPASE, BMP, CBC, HEPATIC ####[address] Monocytes/100 leukocytes in Blood by Automated countOrdered By: Dagmar Bose on 11-03-2024 Monocytes/100 WBC (Bld) 7.0 % Normal . [facility] Comment on above: Performed By: #### L IPASE, BMP, CBC, HEPATIC ####[place] [address] Mucus [Presence] in Urine by AutomatedOrdered By: PROVIDER TEMP on 11-03-2024 Mucus Auto Ql (U) 2+ [LPF] Abnormal [facility] Neutrophils [#/volume] in Bl ood by Automated countOrdered By: Dagmar Bose on 11-03-2024 Neutrophils (Bld) [#/Vol] 5.5 10*3/uL Normal 1.8-7.7 [facility] Comment on above: Performed By: #### L IPASE, BMP, CBC, HEPATIC ####[place] [address] Neutrophils/100 leukocytes i n Blood by Automated countOrdered By: Dagmar Bose on 11-03-2024 Neutrophils/100 WBC (Bld) 59.8 % Normal . [facility] Comment on above: Performed By: #### L IPASE, BMP, CBC, HEPATIC ####[address] Nitrite Test strip Ql (U)Ord ered By: PROVIDER TEMP on 11-03-2024 Nitrite Ql (U) Negative Negative [facility] No Panel InformationOrdered By: Dagmar Bose on 11-03-2024 > 60.0 mL/Min [facility] 122.75 [facility] Nucleated erythrocytes [Pres ence] in Blood by Automated countOrdered By: Dagmar Bose on 11-03-2024 Nucleated RBC Auto Ql (Bld) 0.1 /100{WBC} 0-0.5 [facility] Platelet mean volume [Entiti c volume] in Blood by Automated countOrdered By: Dagmar Bose on 11-03-2024 Platelet mean volume (Bld) [Entitic vol] 7.9 fL Normal 6.3-10.7 [facility] Comment on above: Performed By: #### L IPASE, BMP, CBC, HEPATIC ####[facility] [id number] Platelets [#/volume] in Bloo d by Automated countOrdered By: Dagmar Bose on 11-03-2024 Platelets (Bld) [#/Vol] 394 10*3/uL Normal 150-450 [facility] Comment on above: Performed By: #### L IPASE, BMP, CBC, HEPATIC ####[place] [address] Potassium [Moles/volume] in Serum or PlasmaOrdered By: Dagmar Bose on 11-03-2024 Potassium [Moles/Vol] 3.6 mmol/L Normal 3.5-5.1 [facility] Comment on above: Performed By: #### L IPASE, BMP, CBC, HEPATIC ####[address] Protein Test strip (U) [Mass /Vol]Ordered By: PROVIDER TEMP on 11-03-2024 Protein (U) [Mass/Vol] Negative Negative [facility] Protein [Mass/volume] in Ser um or PlasmaOrdered By: Dagmar Bose on 11-03-2024 Protein [Mass/Vol] 7.2 g/dL Normal 6.4-8.9 [facility] Comment on above: Performed By: #### L IPASE, BMP, CBC, HEPATIC ####[address] Serum globulin measurement b y calculation (mass/volume)Ordered By: Dagmar Bose on 11-03-2024 Globulin (S) [Mass/Vol] 2.9 g/dL Normal [facility] Comment on above: Performed By: #### L IPASE, BMP, CBC, HEPATIC ####[address] Serum or plasma albumin/glob ulin mass ratioOrdered By: Dagmar Bose on 11-03-2024 Albumin/Globulin [Mass ratio] 1.5 {ratio} Normal [facility] Comment on above: Performed By: #### L IPASE, BMP, CBC, HEPATIC ####[address] Serum or plasma anion gap de terminationOrdered By: Dagmar Bose on 11-03-2024 Anion gap [Moles/Vol] 13.3 mmol/L Normal 6.0-15.0 [facility] Comment on above: Performed By: #### L IPASE, BMP, CBC, HEPATIC ####[place] [address] Serum or plasma non-glucuron idated bilirubin measurement (mass/volume)Ordered By: Dagmar Bose on 11-03-2024 Bilirubin.indirect [Mass/Vol] 0.3 mg/dL [facility] Sodium [Moles/volume] in Ser um or PlasmaOrdered By: Dagmar Bose on 11-03-2024 Sodium [Moles/Vol] 138 mmol/L Normal 136-145 [facility] Comment on above: Performed By: #### L IPASE, BMP, CBC, HEPATIC ####[address] Specific gravity Test strip (U) [Rel density]Ordered By: PROVIDER TEMP on 11-03-2024 Specific gravity (U) [Rel density] 1.029 1.001-1.030 [facility] Stool Occult Blood (Guaiac)o n 11-03-2024 Stool Occult Blood (Guaiac) Normal [facility] Comment on above: Performed By: #### O B(GUAIAC) ####[address] Stool gastrointestinal hemog lobin detectionOrdered By: Dagmar Bose on 11-03-2024 Hemoglobin.gastrointesti nal Ql (Stl) [facility] Urea nitrogen [Mass/volume] in Serum or PlasmaOrdered By: Dagmar Bose on 11-03-2024 Urea nitrogen [Mass/Vol] 16 mg/dL Normal 7-25 [facility] Comment on above: Performed By: #### L IPASE, BMP, CBC, HEPATIC ####[place] [address] Urobilinogen Test strip (U) [Mass/Vol]Ordered By: PROVIDER TEMP on 11-03-2024 Urobilinogen (U) [Mass/Vol] Normal mg/dL Normal [facility] pH of Urine by Test stripOrd ered By: AJAY COPPOLA on 11-03-2024 pH (U) 5.5 [pH] Normal 5.0-9.0 [facility] Comment on above: Order Comment: Name Collection Type:: Voided Performed By: #### A DDONUAPLUS ####[place] [id number] [facility] Appearance of UrineOrdered B y: John Cortes on 10-07-2024 Appearance (U) Clear Normal Clear [facility] Comment on above: Order Comment: Name Collection Type:: Clean-Voided Midstream Performed By: #### A DDONUAPLUS ####[place] [id number] [facility] Bacteria [Presence] in Urine by AutomatedOrdered By: John Cortes on 10-07-2024 Bacteria Auto Ql (U) None seen [HPF] None Seen [facility] Basic Metabolic Panelon Creatinine Clr Calc Pharmacy 113.22 Normal [facility] Comment on above: Result Comment: PERF ORMED BY:[address] [address] [address] [place], [place] [phone] MEDICAL SHAINA COLMENARES M.D. Performed By: #### B MP, CBC ####[address] [address] [place] GFR/1.73 sq M.predicted MDRD (S/P/Bld) [Vol rate/Area] mL/min/{1.73_m2} Normal [facility] Comment on above: Performed By: #### B MP, CBC ####[address] [address] [place] Basophils [#/volume] in Bloo d by Automated countOrdered By: John Cortes on 10-07-2024 Basophils (Bld) [#/Vol] 0.1 10*3/uL Normal 0.0-0.2 [facility] Comment on above: Result Comment: PERF ORMED BY:[address] [address] [place], [place] [phone] MEDICAL DIRECTORSUZY COLMENARES M.D. Performed By: #### B MP, CBC ####[address] [place] [place] [address] [facility] Basophils/100 leukocytes in Blood by Automated countOrdered By: John Cortes on 10-07-2024 Basophils/100 WBC (Bld) 1.3 % Normal . [facility] Comment on above: Performed By: #### B MP, CBC ####[address] [place] [place] [address] [facility] Bilirubin Test strip Ql (U)O rdered By: John Cortes on 10-07-2024 Bilirubin Ql (U) Negative Negative [facility] CT abdomen pelvis wo conon 0 10-07-2024 CT abdomen pelvis wo con Normal [facility] Calcium [Mass/volume] in Ser um or PlasmaOrdered By: John Cortes on 10-07-2024 Calcium [Mass/Vol] 9.0 mg/dL Normal 8.6-10.3 [facility] Comment on above: Performed By: #### B KIT, CBC ####[place] [address] [place] [id number] [facility] Carbon dioxide, total [Moles /volume] in Serum or PlasmaOrdered By: John Cortes on 10-07-2024 CO2 [Moles/Vol] 24.9 mmol/L Normal 21.0-31.0 [facility] Comment on above: Performed By: #### B MP, CBC ####[address] [place] [address] [facility] Chloride [Moles/volume] in S jett or PlasmaOrdered By: John Cortes on 10-07-2024 Chloride [Moles/Vol] 106 mmol/L Normal 98-107 [facility] Comment on above: Performed By: #### B MP, CBC ####[address] [address] [place] [address] [facility] Color of Urine by AutoOrdere d By: John Cortes on 10-07-2024 Color (U) Light-yellow Normal Yellow [facility] Comment on above: Order Comment: Name Collection Type:: Clean-Voided Midstream Performed By: #### A DDONUAPLUS ####[address] Complete Blood Count Auto Di ffon 10-07-2024 Mean Corpuscular HGB Conc 34.6 g/dL Normal 32.0-35.0 [facility] Comment on above: Performed By: #### B MP, CBC ####[address] Monocytes/100 WBC (Bld) 19.79 % Normal 0.00-20.00 [facility] Comment on above: Performed By: #### B MP, CBC ####[address] NRBC% 0.1 /100{WBC} Normal 0-0.5 [facility] Comment on above: Performed By: #### B MP, CBC ####[address] White Blood Count 8.3 [CFU]/mL Normal 3.8-11.6 [facility] Comment on above: Performed By: #### B MP, CBC ####[address] Creatinine [Mass/volume] in Serum or PlasmaOrdered By: John Cortes on 10-07-2024 Creatinine [Mass/Vol] 0.65 mg/dL Normal 0.60-1.20 [facility] Comment on above: Performed By: #### B MP, CBC ####[address] Dipstick and Microscopicon 0 10-07-2024 Bacteria,Urine None Seen Normal None Seen [facility] Comment on above: Order Comment: Name Collection Type:: Clean-Voided Midstream Performed By: #### A DDONUAPLUS ####[address] Bilirubin,Urine Negative Normal Negative [facility] Comment on above: Order Comment: Name Collection Type:: Clean-Voided Midstream Performed By: #### A DDONUAPLUS ####[address] [address] [facility] Glucose Ql (U) Normal Normal Normal [facility] Comment on above: Order Comment: Name Collection Type:: Clean-Voided Midstream Performed By: #### A DDONUAPLUS ####[address] [address] [facility] Hyaline Casts,Urine None Normal 0-8 [facility] Comment on above: Order Comment: Name Collection Type:: Clean-Voided Midstream Result Comment: PERF ORMED BY:[address] [place], [place] [phone] MEDICAL SHAINA COLMENARES M.D. Performed By: #### A DDONUAPLUS ####[address] [address] [facility] Nitrite,Urine Negative Normal Negative [facility] Comment on above: Order Comment: Name Collection Type:: Clean-Voided Midstream Performed By: #### A DDONUAPLUS ####[address] [address] [facility] Occult Blood,Urine 2+ Normal Negative [facility] Comment on above: Order Comment: Name Collection Type:: Clean-Voided Midstream Result Comment: PERF ORMED BY:[address] [place], [place] [phone] MEDICAL SHAINA COLMENARES M.D. Performed By: #### A DDONUAPLUS ####[address] [address] [facility] Protein,Urine Negative Normal Negative [facility] Comment on above: Order Comment: Name Collection Type:: Clean-Voided Midstream Performed By: #### A DDONUAPLUS ####[address] [address] [facility] RBC,Urine 10-19 Normal 0-4 [facility] Comment on above: Order Comment: Name Collection Type:: Clean-Voided Midstream Performed By: #### A DDONUAPLUS ####[address] Specificy [place],Urine 1.020 Normal 1.001-1.030 [facility] Comment on above: Order Comment: Name Collection Type:: Clean-Voided Midstream Performed By: #### A DDONUAPLUS ####[place] [id number] [facility] Squamous Epithelial Cell,Urine 1-2 Normal 0-2 [facility] Comment on above: Order Comment: Name Collection Type:: Clean-Voided Midstream Performed By: #### A DDONUAPLUS ####[address] Urobilinogen,Urine Normal Normal Normal [facility] Comment on above: Order Comment: Name Collection Type:: Clean-Voided Midstream Performed By: #### A DDONUAPLUS ####[address] WBC,Urine 1-2 Normal 0-4 [facility] Comment on above: Order Comment: Name Collection Type:: Clean-Voided Midstream Performed By: #### A DDONUAPLUS ####[address] Eosinophils [#/volume] in Bl ood by Automated countOrdered By: John Cortes on 10-07-2024 Eosinophils (Bld) [#/Vol] 0.3 10*3/uL Normal 0.0-0.45 [facility] Comment on above: Performed By: #### B MP, CBC ####[address] Eosinophils/100 leukocytes i n Blood by Automated countOrdered By: John Cortes on 10-07-2024 Eosinophils/100 WBC (Bld) 3.4 % Normal . [facility] Comment on above: Performed By: #### B MP, CBC ####[address] Epithelial cells.squamous [# /area] in Urine sediment by Automated countOrdered By: Jonh Cortes on 10-07-2024 Epithelial cells.squamous Auto (Urine sed) [#/Area] 1-2 [HPF] 0-2 [facility] Erythrocyte distribution wid th [Ratio] by Automated countOrdered By: John Cortes on 10-07-2024 Erythrocyte distribution width (RBC) [Ratio] 13.8 % Normal 11.9-15.3 [facility] Comment on above: Performed By: #### B MP, CBC ####[facility] [id number] [place] [id number] [facility] Erythrocytes [#/area] in Uri ne sediment by Automated countOrdered By: John Cortes on 10-07-2024 RBC Auto (Urine sed) [#/Area] 10-19 [HPF] High 0-4 [facility] Erythrocytes [#/volume] in B lood by Automated countOrdered By: John Cortes on 10-07-2024 RBC (Bld) [#/Vol] 4.27 10*6/uL Normal 3.60-5.00 [facility] Comment on above: Performed By: #### B MP, CBC ####[facility] [id number] [place] [id number] [facility] Glucose [Mass/volume] in Ser um or PlasmaOrdered By: John Cortes on 10-07-2024 Glucose [Mass/Vol] 108 mg/dL High 70-100 [facility] Comment on above: Result Comment: [place] Glucose Reference Range is dependent on time and content of last meal. Glucose of more than 200 mg/dL in a nonstressed, ambulatory subject supports the diagnosis of Diabetes Mellitus. ADA recommended reference range Performed By: #### B MP, CBC ####[facility] [id number] [place] [address] [facility] Glucose [Mass/volume] in [place] ne by Test stripOrdered By: John Cortes on 10-07-2024 Glucose Test strip (U) [Mass/Vol] Normal mg/dL Normal [facility] Hematocrit [Volume Fraction] of Blood by Automated countOrdered By: John Cortes on 10-07-2024 Hematocrit (Bld) [Volume fraction] 38.1 % Normal 34.0-46.4 [facility] Comment on above: Performed By: #### B MP, CBC ####[address] Hemoglobin Test strip Ql (U) Ordered By: John Cortes on 10-07-2024 Hemoglobin Ql (U) 2+ High Negative [facility] Hemoglobin [Mass/volume] in BloodOrdered By: John Cortes on 10-07-2024 Hemoglobin (Bld) [Mass/Vol] 13.2 g/dL Normal 11.8-15.4 [facility] Comment on above: Performed By: #### B MP, CBC ####[address] Hyaline casts [#/area] in Ur ine sediment by Automated countOrdered By: John Cortes on 10-07-2024 Hyaline casts Auto (Urine sed) [#/Area] None [LPF] 0-8 [facility] Ketones [Presence] in Urine by Test stripOrdered By: John Cortes on 10-07-2024 Ketones Ql (U) Negative Normal Negative [facility] Comment on above: Order Comment: Name Collection Type:: Clean-Voided Midstream Performed By: #### A DDONUAPLUS ####[address] Leukocyte esterase [Presence ] in Urine by Test stripOrdered By: John Cortes on 10-07-2024 Leukocyte esterase Test strip Ql (U) Negative Normal Negative [facility] Comment on above: Order Comment: Name Collection Type:: Clean-Voided Midstream Performed By: #### A DDONUAPLUS ####[address] Leukocytes [#/area] in Urine sediment by Automated countOrdered By: John Cortes on 10-07-2024 WBC Auto (Urine sed) [#/Area] 1-2 [HPF] 0-4 [facility] Leukocytes [#/volume] correc jacki for nucleated erythrocytes in Blood by Automated counOrdered By: John Cortes on 10-07-2024 WBC corrected for nucl RBC Auto (Bld) [#/Vol] 8.3 10*3/uL 3.8-11.6 [facility] Leukocytes [#/volume] in Blo od by Automated countOrdered By: John Cortes on 10-07-2024 WBC (Bld) [#/Vol] 8.3 10*3/uL Normal 3.8-11.6 [facility] Comment on above: Performed By: #### B MP, CBC ####[address] Lymphocytes [#/volume] in Bl ood by Automated countOrdered By: John Cortes on 10-07-2024 Lymphocytes (Bld) [#/Vol] 2.8 10*3/uL Normal 1.00-4.8 [facility] Comment on above: Performed By: #### B MP, CBC ####[address] Lymphocytes/100 leukocytes i n Blood by Automated countOrdered By: John Cortes on 10-07-2024 Lymphocytes/100 WBC (Bld) 34.2 % Normal . [facility] Comment on above: Performed By: #### B MP, CBC ####[address] MCH [Entitic mass] by Automa jacki countOrdered By: John Cortes on 10-07-2024 MCH (RBC) [Entitic mass] 30.9 pg Normal 24.7-34.3 [facility] Comment on above: Performed By: #### B MP, CBC ####[place] [id number] [facility] MCHC Auto (RBC) [Mass/Vol]Or dered By: John Cortes on 10-07-2024 MCHC (RBC) [Mass/Vol] 34.6 g/dL 32.0-35.0 [facility] MCV [Entitic volume] by Auto mated countOrdered By: John Cortes on 10-07-2024 MCV (RBC) [Entitic vol] 89.2 fL Normal 80-100 [facility] Comment on above: Performed By: #### B MP, CBC ####[place] [id number] [facility] Monocyte distribution width [Entitic volume] in Blood by AutomatedOrdered By: John Cortes on 10-07-2024 Monocyte distribution width Auto (Bld) [Entitic vol] 19.79 % 0.00-20.00 [facility] Monocytes [#/volume] in Bloo d by Automated countOrdered By: John Cortes on 10-07-2024 Monocytes (Bld) [#/Vol] 0.6 10*3/uL Normal 0.0-0.8 [facility] Comment on above: Performed By: #### B MP, CBC ####[address] Monocytes/100 leukocytes in Blood by Automated countOrdered By: John Cortes on 10-07-2024 Monocytes/100 WBC (Bld) 6.9 % Normal . [facility] Comment on above: Performed By: #### B MP, CBC ####[address] Neutrophils [#/volume] in Bl ood by Automated countOrdered By: John Cortes on 10-07-2024 Neutrophils (Bld) [#/Vol] 4.5 10*3/uL Normal 1.8-7.7 [facility] Comment on above: Performed By: #### B MP, CBC ####[address] Neutrophils/100 leukocytes i n Blood by Automated countOrdered By: John Cortes on 10-07-2024 Neutrophils/100 WBC (Bld) 54.2 % Normal . [facility] Comment on above: Performed By: #### B MP, CBC ####[address] Nitrite Test strip Ql (U)Ord ered By: John Cortes on 10-07-2024 Nitrite Ql (U) Negative Negative [facility] No Panel InformationOrdered By: John Cortes on 10-07-2024 > 60.0 mL/Min [facility] 113.22 [facility] Nucleated erythrocytes [Pres ence] in Blood by Automated countOrdered By: John Cortes on 10-07-2024 Nucleated RBC Auto Ql (Bld) 0.1 /100{WBC} 0-0.5 [facility] Platelet mean volume [Entiti c volume] in Blood by Automated countOrdered By: Jonh Cortes on 10-07-2024 Platelet mean volume (Bld) [Entitic vol] 8.2 fL Normal 6.3-10.7 [facility] Comment on above: Performed By: #### B MP, CBC ####[address] [address] [facility] Platelets [#/volume] in Bloo d by Automated countOrdered By: John Cortes on 10-07-2024 Platelets (Bld) [#/Vol] 337 10*3/uL Normal 150-450 [facility] Comment on above: Performed By: #### B KIT, CBC ####[address] [address] [facility] Potassium [Moles/volume] in Serum or PlasmaOrdered By: John Cortes on 10-07-2024 Potassium [Moles/Vol] 3.6 mmol/L Normal 3.5-5.1 [facility] Comment on above: Performed By: #### B KIT, CBC ####[address] [address] [facility] Protein Test strip (U) [Mass /Vol]Ordered By: John Cortes on 10-07-2024 Protein (U) [Mass/Vol] Negative Negative [facility] Serum or plasma anion gap de terminationOrdered By: John Cortes on 10-07-2024 Anion gap [Moles/Vol] 11.7 mmol/L Normal 6.0-15.0 [facility] Comment on above: Performed By: #### B MP, CBC ####[address] [address] [facility] Sodium [Moles/volume] in Ser um or PlasmaOrdered By: John Cortes on 10-07-2024 Sodium [Moles/Vol] 139 mmol/L Normal 136-145 [facility] Comment on above: Performed By: #### B MP, CBC ####[address] [address] [facility] Specific gravity Test strip (U) [Rel density]Ordered By: John Cortes on 10-07-2024 Specific gravity (U) [Rel density] 1.020 1.001-1.030 [facility] Urea nitrogen [Mass/volume] in Serum or PlasmaOrdered By: John Cortes on 10-07-2024 Urea nitrogen [Mass/Vol] 15 mg/dL Normal 7-25 [facility] Comment on above: Performed By: #### B MP, CBC ####[address] [place] [place] [address] [facility] Urobilinogen Test strip (U) [Mass/Vol]Ordered By: John Cortes on 10-07-2024 Urobilinogen (U) [Mass/Vol] Normal mg/dL Normal [facility] pH of Urine by Test stripOrd ered By: John Cortes on 10-07-2024 pH (U) 6.5 [pH] Normal 5.0-9.0 [facility] Comment on above: Order Comment: Name Collection Type:: Clean-Voided Midstream Performed By: #### A DDONUAPLUS ####[place] [id number] [facility] XR hand RT min 3V*on 025 XR hand RT min 3V* Normal [facility] BNP ser/plasOrdered By: Joshua Dorsey on 09-01-2024 Natriuretic peptide B (Bld) [Mass/Vol] 8.0 pg/mL Normal 5-100 [facility] Comment on above: Result Comment: PERF ORMED BY:[address] [place], [place] [id number] MEDICAL SHAINA COLMENARES M.D. Performed By: #### H S TROP, PT, BNP, BMP, CK, CBC ####[address] [place] [place] [address] [facility] Basic Metabolic Panelon Creatinine Clr Calc Pharmacy 86.91 Normal [facility] Comment on above: Result Comment: PERF ORMED BY:[address] [place], [place] [phone] MEDICAL SHAINA COLMENARES M.D. Performed By: #### H S TROP, PT, BNP, BMP, CK, CBC ####[place] [address] [place] [id number] [facility] GFR/1.73 sq M.predicted MDRD (S/P/Bld) [Vol rate/Area] mL/min/{1.73_m2} Normal [facility] Comment on above: Performed By: #### H S TROP, PT, BNP, BMP, CK, CBC ####[place] [id number] [facility] Basophils Auto (Bld) [#/Vol] Ordered By: Dustin Dorsey on 09-01-2024 Basophils (Bld) [#/Vol] Automated basoph il count 0.0-0.2 [facility] Basophils [#/volume] in Bloo d by Automated countOrdered By: Dustin Dorsey on 09-01-2024 Basophils (Bld) [#/Vol] 0.0 10*3/uL Normal 0.0-0.2 [facility] Comment on above: Result Comment: PERF ORMED BY:[address] [place], [place] [phone] MEDICAL DIRECTORSUZY COLMENARES M.D. Performed By: #### H S TROP, PT, BNP, BMP, CK, CBC ####[place] [id number] [facility] Basophils/100 WBC Auto (Bld) Ordered By: Dustin Dorsey on 09-01-2024 Basophils/100 WBC (Bld) Automated basophil % . [facility] Basophils/100 leukocytes in Blood by Automated countOrdered By: Dustin Dorsey on 09-01-2024 Basophils/100 WBC (Bld) 0.3 % Normal . [facility] Comment on above: Performed By: #### H S TROP, PT, BNP, BMP, CK, CBC ####[place] [id number] [facility] Calcium [Mass/volume] in Ser um or PlasmaOrdered By: Dustin Dorsey on 09-01-2024 Calcium [Mass/Vol] Calcium [Mass/volume ] in Serum or Plasma 8.6-10.3 [facility] Calcium [Mass/Vol] 9.3 mg/dL Normal 8.6-10.3 [facility] Comment on above: Performed By: #### H S TROP, PT, BNP, BMP, CK, CBC ####[address] Carbon dioxide, total [Moles /volume] in Serum or PlasmaOrdered By: Dustin Dorsey on 09-01-2024 CO2 [Moles/Vol] Carbon dioxide, tota l [Moles/volume] in Serum or Plasma 21.0-31.0 [facility] CO2 [Moles/Vol] 23.6 mmol/L Normal 21.0-31.0 [facility] Comment on above: Performed By: #### H S TROP, PT, BNP, BMP, CK, CBC ####[address] Chloride [Moles/volume] in S jett or PlasmaOrdered By: Dustin Dorsey on 09-01-2024 Chloride [Moles/Vol] Chloride [Moles/volume] in Serum or Plasma 98-107 [facility] Chloride [Moles/Vol] 105 mmol/L Normal 98-107 [facility] Comment on above: Performed By: #### H S TROP, PT, BNP, BMP, CK, CBC ####[address] Complete Blood Count Auto Di ffon 09-01-2024 Mean Corpuscular HGB Conc 34.4 g/dL Normal 32.0-35.0 [facility] Comment on above: Performed By: #### H S TROP, PT, BNP, BMP, CK, CBC ####[place] [id number] [facility] Monocytes/100 WBC (Bld) 18.23 % Normal 0.00-20.00 [facility] Comment on above: Performed By: #### H S TROP, PT, BNP, BMP, CK, CBC ####[address] [address] [place] NRBC% 0.1 /100{WBC} Normal 0-0.5 [facility] Comment on above: Performed By: #### H S TROP, PT, BNP, BMP, CK, CBC ####[facility] Creatine kinase [Enzymatic a ctivity/volume] in Serum or PlasmaOrdered By: Dustin Dorsey on 09-01-2024 CK [Catalytic activity/Vol] Creatine kinase [Enzymatic activity/volume] in Serum or Plasma [facility] CK [Catalytic activity/Vol] 162 U/L Normal [facility] Comment on above: Performed By: #### H S TROP, PT, BNP, BMP, CK, CBC ####[place] [address] Creatinine [Mass/volume] in Serum or PlasmaOrdered By: Dustin Dorsey on 09-01-2024 Creatinine [Mass/Vol] Creatinine [Mass/volume] in Serum or Plasma 0.60-1.20 [facility] Creatinine [Mass/Vol] 0.81 mg/dL Normal 0.60-1.20 [facility] Comment on above: Performed By: #### H S TROP, PT, BNP, BMP, CK, CBC ####[address] ECG 12 lead ECGon 09-01-2024 ECG 12 lead ECG Normal [facility] ECG 12 lead ECG Normal [facility] Eosinophils Auto (Bld) [#/Vo l]Ordered By: Dustin Dorsey on 09-01-2024 Eosinophils (Bld) [#/Vol] Automated eosinophil count 0.0-0.45 [facility] Eosinophils [#/volume] in Bl ood by Automated countOrdered By: Dustin Dorsey on 09-01-2024 Eosinophils (Bld) [#/Vol] 0.3 10*3/uL Normal 0.0-0.45 [facility] Comment on above: Performed By: #### H S TROP, PT, BNP, BMP, CK, CBC ####[address] [place] [address] [facility] Eosinophils/100 WBC Auto (Bl d)Ordered By: Dustin Dorsey on 09-01-2024 Eosinophils/100 WBC (Bld) Automated eosinophil % . [facility] Eosinophils/100 leukocytes i n Blood by Automated countOrdered By: Dustin Dorsey on 09-01-2024 Eosinophils/100 WBC (Bld) 3.6 % Normal . [facility] Comment on above: Performed By: #### H S TROP, PT, BNP, BMP, CK, CBC ####[address] [address] [facility] Erythrocyte distribution wid th Auto (RBC) [Ratio]Ordered By: Dustin Dorsey on 09-01-2024 Erythrocyte distribution width (RBC) [Ratio] Erythrocyte distribution width [Ratio] by Automated count 11.9-15.3 [facility] Erythrocyte distribution wid th [Ratio] by Automated countOrdered By: Dustin Dorsey on 09-01-2024 Erythrocyte distribution width (RBC) [Ratio] 14.0 % Normal 11.9-15.3 [facility] Comment on above: Performed By: #### H S TROP, PT, BNP, BMP, CK, CBC ####[place] [id number] [facility] Erythrocytes [#/volume] in B lood by Automated countOrdered By: Dustin Dorsey on 09-01-2024 RBC (Bld) [#/Vol] 4.25 10*6/uL Normal 3.60-5.00 [facility] Comment on above: Performed By: #### H S TROP, PT, BNP, BMP, CK, CBC ####[address] [address] [facility] Glucose [Mass/volume] in Ser um or PlasmaOrdered By: Dustin Dorsey on 09-01-2024 Glucose [Mass/Vol] Glucose [Mass/volume ] in Serum or Plasma High 70-100 [facility] Glucose [Mass/Vol] 141 mg/dL High 70-100 [facility] Comment on above: Result Comment: [facility] Glucose Reference Range is dependent on time and content of last meal. Glucose of more than 200 mg/dL in a nonstressed, ambulatory subject supports the diagnosis of Diabetes Mellitus. ADA recommended reference range Performed By: #### H S TROP, PT, BNP, BMP, CK, CBC ####[place] [address] [place] [id number] [facility] Hematocrit Auto (Bld) [Volum e fraction]Ordered By: Dustin Dorsey on 09-01-2024 Hematocrit (Bld) [Volume fraction] Hematocrit [Volume Fraction] of Blood by Automated count 34.0-46.4 [facility] Hematocrit [Volume Fraction] of Blood by Automated countOrdered By: Dustin Dorsey on 09-01-2024 Hematocrit (Bld) [Volume fraction] 38.0 % Normal 34.0-46.4 [facility] Comment on above: Performed By: #### H S TROP, PT, BNP, BMP, CK, CBC ####[place] [address] Hemoglobin [Mass/volume] in BloodOrdered By: Dustin Dorsey on 09-01-2024 Hemoglobin (Bld) [Mass/Vol] Hemoglobin [Mass/volume] in Blood 11.8-15.4 [facility] Hemoglobin (Bld) [Mass/Vol] 13.1 g/dL Normal 11.8-15.4 [facility] Comment on above: Performed By: #### H S TROP, PT, BNP, BMP, CK, CBC ####[address] INR in Platelet poor plasma by Coagulation assayOrdered By: Dustin Dorsey on 09-01-2024 INR Coag (PPP) [Relative time] INR in Platelet poor plasma by Coagulation assay [facility] INR Coag (PPP) [Relative time] 1.0 {INR} Normal [facility] Comment on above: Result Comment: INR Therapeutic Range A) Pre- and Peroperative OAT started two weeks before surgery. NOT HIP SURGERY: 1.5 - 2.5 HIP SURGERY: 2 - 3 B) Primary and secondary prevention of venous THROMBOSIS: 2 - 3 C) Active venous thrombosis, pulmonary embolism and prevention of recurrent venous thrombosis: 2 - 3 D) Prevention of arterial thromboembolism including patients with mechanical heart valves: 3 - 4.5PERFORMED BY:[address] [place], [place] [phone] MEDICAL DIRECTORSUZY COLMENARES M.D. Performed By: #### H S TROP, PT, BNP, BMP, CK, CBC ####[address] [place] [address] [facility] Leukocytes [#/volume] correc jacki for nucleated erythrocytes in Blood by Automated counOrdered By: Dustin Dorsey on 09-01-2024 WBC corrected for nucl RBC Auto (Bld) [#/Vol] Leukocytes [#/volume] corrected for nucleated erythrocytes in Blood by Automated coun 3.8-11.6 [facility] WBC corrected for nucl RBC Auto (Bld) [#/Vol] 8.6 10*3/uL 3.8-11.6 [facility] Leukocytes [#/volume] in Blo od by Automated countOrdered By: Dustin Dorsey on 09-01-2024 WBC (Bld) [#/Vol] 8.6 10*3/uL Normal 3.8-11.6 [facility] Comment on above: Performed By: #### H S TROP, PT, BNP, BMP, CK, CBC ####[place] [address] [place] [id number] [facility] Lymphocytes Auto (Bld) [#/Vo l]Ordered By: Dustin Dorsey on 09-01-2024 Lymphocytes (Bld) [#/Vol] Lymphocytes [#/volume] in Blood by Automated count 1.00-4.8 [facility] Lymphocytes [#/volume] in Bl ood by Automated countOrdered By: Dustin Dorsey on 09-01-2024 Lymphocytes (Bld) [#/Vol] 3.3 10*3/uL Normal 1.00-4.8 [facility] Comment on above: Performed By: #### H S TROP, PT, BNP, BMP, CK, CBC ####[address] [address] [facility] Lymphocytes/100 WBC Auto (Bl d)Ordered By: Dustin Dorsey on 09-01-2024 Lymphocytes/100 WBC (Bld) Lymphocytes/100 leukocytes in Blood by Automated count . [facility] Lymphocytes/100 leukocytes i n Blood by Automated countOrdered By: Dustin Dorsey on 09-01-2024 Lymphocytes/100 WBC (Bld) 38.9 % Normal . [facility] Comment on above: Performed By: #### H S TROP, PT, BNP, BMP, CK, CBC ####[facility] [id number] [place] [id number] [facility] MCH Auto (RBC) [Entitic mass ]Ordered By: Dustin Dorsey on 09-01-2024 MCH (RBC) [Entitic mass] MCH [Entitic ma ss] by Automated count 24.7-34.3 [facility] MCH [Entitic mass] by Automa jacki countOrdered By: Dustin Dorsey on 09-01-2024 MCH (RBC) [Entitic mass] 30.8 pg Normal 24.7-34.3 [facility] Comment on above: Performed By: #### H S TROP, PT, BNP, BMP, CK, CBC ####[place] [id number] [facility] MCHC Auto (RBC) [Mass/Vol]Or dered By: Dustin Dorsey on 09-01-2024 MCHC (RBC) [Mass/Vol] MCHC [Mass/volume] by Automated count 32.0-35.0 [facility] MCHC (RBC) [Mass/Vol] 34.4 g/dL 32.0-35.0 [facility] MCV Auto (RBC) [Entitic vol] Ordered By: Dustin Dorsey on 09-01-2024 MCV (RBC) [Entitic vol] MCV [Entitic vol ume] by Automated count 80-100 [facility] MCV [Entitic volume] by Auto mated countOrdered By: Dustin Dorsey on 09-01-2024 MCV (RBC) [Entitic vol] 89.4 fL Normal 80-100 [facility] Comment on above: Performed By: #### H S TROP, PT, BNP, BMP, CK, CBC ####[facility] [place] [address] [facility] Monocyte distribution width [Entitic volume] in Blood by AutomatedOrdered By: Dustin Dorsey on 09-01-2024 Monocyte distribution width Auto (Bld) [Entitic vol] Monocyte distribution width [Entitic volume] in Blood by Automated 0.00-20.00 [facility] Monocyte distribution width Auto (Bld) [Entitic vol] 18.23 % 0.00-20.00 [facility] Monocytes Auto (Bld) [#/Vol] Ordered By: uDstin Dorsey on 09-01-2024 Monocytes (Bld) [#/Vol] Automated blood monocyte count 0.0-0.8 [facility] Monocytes [#/volume] in Bloo d by Automated countOrdered By: Dustin Dorsey on 09-01-2024 Monocytes (Bld) [#/Vol] 0.5 10*3/uL Normal 0.0-0.8 [facility] Comment on above: Performed By: #### H S TROP, PT, BNP, BMP, CK, CBC ####[address] [address] [place] [id number] [facility] Monocytes/100 WBC Auto (Bld) Ordered By: Dustin Dorsey on 09-01-2024 Monocytes/100 WBC (Bld) Automated monocyte % . [facility] Monocytes/100 leukocytes in Blood by Automated countOrdered By: Dustin oDrsey on 09-01-2024 Monocytes/100 WBC (Bld) 6.1 % Normal . [facility] Comment on above: Performed By: #### H S TROP, PT, BNP, BMP, CK, CBC ####[address] [place] [address] [facility] Natriuretic peptide B [Mass/ Vol]Ordered By: Dustin Dorsey on 09-01-2024 Natriuretic peptide B (Bld) [Mass/Vol] BNP ser/plas 5-100 [facility] Neutrophils Auto (Bld) [#/Vo l]Ordered By: Dustin Dorsey on 09-01-2024 Neutrophils (Bld) [#/Vol] Neutrophils [#/volume] in Blood by Automated count 1.8-7.7 [facility] Neutrophils [#/volume] in Bl ood by Automated countOrdered By: Dustin Dorsey on 09-01-2024 Neutrophils (Bld) [#/Vol] 4.4 10*3/uL Normal 1.8-7.7 [facility] Comment on above: Performed By: #### H S TROP, PT, BNP, BMP, CK, CBC ####[facility] [id number] Neutrophils/100 WBC Auto (Bl d)Ordered By: Dustin Dorsey on 09-01-2024 Neutrophils/100 WBC (Bld) Automated neutrophil % . [facility] Neutrophils/100 leukocytes i n Blood by Automated countOrdered By: Dustin Dorsey on 09-01-2024 Neutrophils/100 WBC (Bld) 51.1 % Normal . [facility] Comment on above: Performed By: #### H S TROP, PT, BNP, BMP, CK, CBC ####[facility] [id number] No Panel InformationOrdered By: Dustin Dorsey on 09-01-2024 > 60.0 mL/Min [facility] 86.91 [facility] Nucleated erythrocytes [Pres ence] in Blood by Automated countOrdered By: Dustin Dorsey on 09-01-2024 Nucleated RBC Auto Ql (Bld) Nucleated erythrocytes [Presence] in Blood by Automated count 0-0.5 [facility] Nucleated RBC Auto Ql (Bld) 0.1 /100{WBC} 0-0.5 [facility] Platelet mean volume Auto (B ld) [Entitic vol]Ordered By: Dustin Dorsey on 09-01-2024 Platelet mean volume (Bld) [Entitic vol] Platelet mean volume [Entitic volume] in Blood by Automated count 6.3-10.7 [facility] Platelet mean volume [Entiti c volume] in Blood by Automated countOrdered By: Dustin Dorsey on 09-01-2024 Platelet mean volume (Bld) [Entitic vol] 8.0 fL Normal 6.3-10.7 [facility] Comment on above: Performed By: #### H S TROP, PT, BNP, BMP, CK, CBC ####[address] [address] [place] [id number] [facility] Platelets Auto (Bld) [#/Vol] Ordered By: Dustin Dorsey on 09-01-2024 Platelets (Bld) [#/Vol] Platelets [#/vol ume] in Blood by Automated count 150-450 [facility] Platelets [#/volume] in Bloo d by Automated countOrdered By: Dustin Dorsey on 09-01-2024 Platelets (Bld) [#/Vol] 389 10*3/uL Normal 150-450 [facility] Comment on above: Performed By: #### H S TROP, PT, BNP, BMP, CK, CBC ####[address] Potassium [Moles/volume] in Serum or PlasmaOrdered By: Dustin Dorsey on 09-01-2024 Potassium [Moles/Vol] Potassium [Moles/volume] in Serum or Plasma 3.5-5.1 [facility] Potassium [Moles/Vol] 3.7 mmol/L Normal 3.5-5.1 [facility] Comment on above: Performed By: #### H S TROP, PT, BNP, BMP, CK, CBC ####[address] Prothrombin time (PT)Ordered By: Dustin Dorsey on 09-01-2024 PT Coag (PPP) [Time] Prothrombin time (PT) 9.0- 12.9 [facility] PT Coag (PPP) [Time] 11.3 s Normal 9.0-12.9 [facility] Comment on above: Result Comment: A he matocrit value greater than 55% may lead to inaccurate results in coagulation testing. Patients having hematocrit values >55% require a special collection tube for coagulation studies. Please contact the laboratory at [phone] for redraw instructions. Performed By: #### H S TROP, PT, BNP, BMP, CK, CBC ####[place] [id number] [facility] RBC Auto (Bld) [#/Vol]Ordere d By: Dustin Dorsey on 09-01-2024 RBC (Bld) [#/Vol] Erythrocytes [#/volume] in Blood by Automated count 3.60-5.00 [facility] Serum or plasma anion gap de terminationOrdered By: Dustin Dorsey on 09-01-2024 Anion gap [Moles/Vol] Serum or plasma an ion gap determination 6.0-15.0 [facility] Anion gap [Moles/Vol] 13.1 mmol/L Normal 6.0-15.0 [facility] Comment on above: Performed By: #### H S TROP, PT, BNP, BMP, CK, CBC ####[address] [address] [facility] Sodium [Moles/volume] in Ser um or PlasmaOrdered By: Dustin Dorsey on 09-01-2024 Sodium [Moles/Vol] Sodium [Moles/volume ] in Serum or Plasma 136-145 [facility] Sodium [Moles/Vol] 138 mmol/L Normal 136-145 [facility] Comment on above: Performed By: #### H S TROP, PT, BNP, BMP, CK, CBC ####[address] [address] [facility] Troponin I High Sensitivityo n 09-01-2024 Troponin I High Sensitivity 6 Normal 0-15 [facility] Comment on above: Result Comment: The Troponin units of report have been changed to meet the Chest Pain Accreditation requirement, element EC5.M1l2. Troponin units are changed from pg/ml to ng/L. Also, the decimal is removed and results are in whole numbers.PERFORMED BY:[address] [place], [place] [phone] MEDICAL DIRECTORSUZY COLMENARES M.D. Performed By: #### H S TROP, PT, BNP, BMP, CK, CBC ####[address] [place] [address] [facility] Troponin I.cardiac [Mass/vol ume] in Serum or Plasma by Detection limit <= 0.01 ng/Ordered By: Dustin Dorsey on 09-01-2024 Troponin I.cardiac DL <= 0.01 ng/mL [Mass/Vol] Troponin I.cardiac [Mass/volume] in Serum or Plasma by Detection limit <= 0.01 ng/ 0 [facility] Troponin I.cardiac [Mass/vol ume] in Serum or Plasma by Detection limit <= 0.01 ng/mLOrdered By: Dustin Dorsey on 09-01-2024 Troponin I.cardiac DL <= 0.01 ng/mL [Mass/Vol] 6 ng/L 0 [facility] Urea nitrogen [Mass/volume] in Serum or PlasmaOrdered By: Dustin Dorsey on 09-01-2024 Urea nitrogen [Mass/Vol] Urea nitrogen [Mass/volume] in Serum or Plasma 10-23 [facility] Urea nitrogen [Mass/Vol] 21 mg/dL Normal 10-23 [facility] Comment on above: Performed By: #### H S TROP, PT, BNP, BMP, CK, CBC ####[facility] [id number] WBC Auto (Bld) [#/Vol]Ordere d By: Dustin Dorsey on 09-01-2024 WBC (Bld) [#/Vol] Leukocytes [#/volume ] in Blood by Automated count 3.8-11.6 [facility] XR chest 2V*on 09-01-2024 XR chest 2V* Normal [facility] Quick Strepon 06-19-2024 Quick Strep Normal [facility] Comment on above: Performed By: #### Q S ####[address] Streptococcus pyogenes antig en detectionOrdered By: Denver Hess on 06-19-2024 S. pyogenes Ag Ql (Unsp spec) Streptococcus pyogenes antigen detection [facility] Alanine aminotransferase [En zymatic activity/volume] in Serum or PlasmaOrdered By: John Cortes on 06-15-2024 ALT [Catalytic activity/Vol] Alanine aminotransferase [Enzymatic activity/volume] in Serum or Plasma [facility] Albumin [Mass/volume] in Ser um or Plasma by Bromocresol green (BCG) dye binding methoOrdered By: John Cortes on 06-15-2024 Albumin BCG dye [Mass/Vol] Albumin [Mass/volume] in Serum or Plasma by Bromocresol green (BCG) dye binding metho 3.5-5.7 [facility] Alkaline phosphatase [Enzyma tic activity/volume] in Serum or PlasmaOrdered By: John Cortes on 06-15-2024 ALP [Catalytic activity/Vol] Alkaline phosphatase [Enzymatic activity/volume] in Serum or Plasma 34-104 [facility] Aspartate aminotransferase [ Enzymatic activity/volume] in Serum or PlasmaOrdered By: John Cortes on 06-15-2024 AST [Catalytic activity/Vol] Aspartate aminotransferase [Enzymatic activity/volume] in Serum or Plasma 13-39 [facility] B-Type Natriuretic Peptideon 06-15-2024 Natriuretic peptide B (Bld) [Mass/Vol] 8.0 pg/mL Normal 5-100 [facility] Comment on above: Result Comment: PERF ORMED BY:[facility] [place], [place] [phone] MEDICAL DIRECTORBINH MOREJON M.D. Performed By: #### B FAMILY DEVELOPMENT EXTENSION SPECIALIST, CK, CBC, PT, CMP, HS TROP, DDIMER ####[facility] [id number] [place] [address] [facility] Basophils Auto (Bld) [#/Vol] Ordered By: John Cortes on 06-15-2024 Basophils (Bld) [#/Vol] Automated basoph il count 0.0-0.2 [facility] Basophils/100 WBC Auto (Bld) Ordered By: John Cortes on 06-15-2024 Basophils/100 WBC (Bld) Automated basophil % . [facility] Bilirubin.total [Mass/volume ] in Serum or PlasmaOrdered By: oJhn Cortes on 06-15-2024 Bilirubin [Mass/Vol] Bilirubin.total [Mass/volume] in Serum or Plasma Low 0.3-1.0 [facility] COVID Cepheid NegativeOrdere d By: John Cortes on 06-15-2024 SARS-CoV-2 (COVID-19) RNA EMI+probe Ql (Unsp spec) COVID Cepheid Negative [facility] COVID-19 / Flu A/B / RSV PCR on 06-15-2024 SARS-CoV-2 (COVID-19) RNA EMI+probe Ql (Unsp spec) Normal [facility] Comment on above: Performed By: #### C EPHEID NEG, COVID19 FLU RSV ####[address] [place] [address] [facility] Calcium [Mass/volume] in Ser um or PlasmaOrdered By: John Cortes on 06-15-2024 Calcium [Mass/Vol] Calcium [Mass/volume ] in Serum or Plasma 8.6-10.3 [facility] Carbon dioxide, total [Moles /volume] in Serum or PlasmaOrdered By: John Cortes on 06-15-2024 CO2 [Moles/Vol] Carbon dioxide, tota l [Moles/volume] in Serum or Plasma 21.0-31.0 [facility] Cepheid COVID PCR Negativeon 06-15-2024 SARS-CoV-2 (COVID-19) RNA EMI+probe Ql (Unsp spec) Negative Normal Negative [facility] Comment on above: Result Comment: This is a duplicate CepPlug Appsid Xpert Xpress CoV-2/Flu/RSV Plus RNA by RT-PCR result to be used for statistical tracking purpose only.PERFORMED BY:[address] [place], [place] [phone] MEDICAL DIRECTORBINH MOREJON M.D. Performed By: #### C EPHEID NEG, COVID19 FLU RSV ####[address] [address] [facility] Chloride [Moles/volume] in S jett or PlasmaOrdered By: John Cortes on 06-15-2024 Chloride [Moles/Vol] Chloride [Moles/volume] in Serum or Plasma 98-107 [facility] Complete Blood Count Auto Di ffon 06-15-2024 Basophils (Bld) [#/Vol] 0.1 10*3/uL Normal 0.0-0.2 [facility] Comment on above: Result Comment: PERF ORMED BY:[address] [place] [phone] MEDICAL DIRECTORBINH MOREJON M.D. Performed By: #### B FAMILY DEVELOPMENT EXTENSION SPECIALIST, CK, CBC, PT, CMP, HS TROP, DDIMER ####[address] Basophils/100 WBC (Bld) 0.8 % Normal . [facility] Comment on above: Performed By: #### B FAMILY DEVELOPMENT EXTENSION SPECIALIST, CK, CBC, PT, CMP, HS TROP, DDIMER ####[address] Eosinophils (Bld) [#/Vol] 0.4 10*3/uL Normal 0.0-0.45 [facility] Comment on above: Performed By: #### B FAMILY DEVELOPMENT EXTENSION SPECIALIST, CK, CBC, PT, CMP, HS TROP, DDIMER ####[address] Eosinophils/100 WBC (Bld) 3.8 % Normal . [facility] Comment on above: Performed By: #### B FAMILY DEVELOPMENT EXTENSION SPECIALIST, CK, CBC, PT, CMP, HS TROP, DDIMER ####[address] Erythrocyte distribution width (RBC) [Ratio] 14.3 % Normal 11.9-15.3 [facility] Comment on above: Performed By: #### B FAMILY DEVELOPMENT EXTENSION SPECIALIST, CK, CBC, PT, CMP, HS TROP, DDIMER ####[address] Hematocrit (Bld) [Volume fraction] 38.7 % Normal 34.0-46.4 [facility] Comment on above: Performed By: #### B FAMILY DEVELOPMENT EXTENSION SPECIALIST, CK, CBC, PT, CMP, HS TROP, DDIMER ####[address] Hemoglobin (Bld) [Mass/Vol] 13.4 g/dL Normal 11.8-15.4 [facility] Comment on above: Performed By: #### B FAMILY DEVELOPMENT EXTENSION SPECIALIST, CK, CBC, PT, CMP, HS TROP, DDIMER ####[address] Lymphocytes (Bld) [#/Vol] 3.6 10*3/uL Normal 1.00-4.8 [facility] Comment on above: Performed By: #### B FAMILY DEVELOPMENT EXTENSION SPECIALIST, CK, CBC, PT, CMP, HS TROP, DDIMER ####[address] Lymphocytes/100 WBC (Bld) 30.1 % Normal . [facility] Comment on above: Performed By: #### B FAMILY DEVELOPMENT EXTENSION SPECIALIST, CK, CBC, PT, CMP, HS TROP, DDIMER ####[address] MCH (RBC) [Entitic mass] 30.4 pg Normal 24.7-34.3 [facility] Comment on above: Performed By: #### B FAMILY DEVELOPMENT EXTENSION SPECIALIST, CK, CBC, PT, CMP, HS TROP, DDIMER ####[address] MCV (RBC) [Entitic vol] 87.6 fL Normal 80-100 [facility] Comment on above: Performed By: #### B FAMILY DEVELOPMENT EXTENSION SPECIALIST, CK, CBC, PT, CMP, HS TROP, DDIMER ####[address] Mean Corpuscular HGB Conc 34.7 g/dL Normal 32.0-35.0 [facility] Comment on above: Performed By: #### B FAMILY DEVELOPMENT EXTENSION SPECIALIST, CK, CBC, PT, CMP, HS TROP, DDIMER ####[address] Monocytes (Bld) [#/Vol] 0.6 10*3/uL Normal 0.0-0.8 [facility] Comment on above: Performed By: #### B FAMILY DEVELOPMENT EXTENSION SPECIALIST, CK, CBC, PT, CMP, HS TROP, DDIMER ####[address] Monocytes/100 WBC (Bld) 20.83 % High 0.00-20.00 [facility] Comment on above: Result Comment: For adults in ED, MDW > 20.0 may be associated with a higher risk of sepsis during the first 12 hrs of hospital admission Performed By: #### B FAMILY DEVELOPMENT EXTENSION SPECIALIST, CK, CBC, PT, CMP, HS TROP, DDIMER ####[address] Monocytes/100 WBC (Bld) 4.7 % Normal . T he [facility] Comment on above: Performed By: #### B FAMILY DEVELOPMENT EXTENSION SPECIALIST, CK, CBC, PT, CMP, HS TROP, DDIMER ####[address] Neutrophils (Bld) [#/Vol] 7.2 10*3/uL Normal 1.8-7.7 [facility] Comment on above: Performed By: #### B FAMILY DEVELOPMENT EXTENSION SPECIALIST, CK, CBC, PT, CMP, HS TROP, DDIMER ####[address] Neutrophils/100 WBC (Bld) 60.6 % Normal . [facility] Comment on above: Performed By: #### B FAMILY DEVELOPMENT EXTENSION SPECIALIST, CK, CBC, PT, CMP, HS TROP, DDIMER ####[address] NRBC% 0.0 /100{WBC} Normal 0-0.5 [facility] Comment on above: Performed By: #### B FAMILY DEVELOPMENT EXTENSION SPECIALIST, CK, CBC, PT, CMP, HS TROP, DDIMER ####[address] Platelet mean volume (Bld) [Entitic vol] 7.2 fL Normal 6.3-10.7 [facility] Comment on above: Performed By: #### B FAMILY DEVELOPMENT EXTENSION SPECIALIST, CK, CBC, PT, CMP, HS TROP, DDIMER ####[address] Platelets (Bld) [#/Vol] 578 10*3/uL High 150-450 [facility] Comment on above: Performed By: #### B FAMILY DEVELOPMENT EXTENSION SPECIALIST, CK, CBC, PT, CMP, HS TROP, DDIMER ####[id number] RBC (Bld) [#/Vol] 4.42 10*6/uL Normal 3.60-5.00 [facility] Comment on above: Performed By: #### B FAMILY DEVELOPMENT EXTENSION SPECIALIST, CK, CBC, PT, CMP, HS TROP, DDIMER ####[id number] [facility] WBC (Bld) [#/Vol] 11.8 10*3/uL High 3.8-11.6 [facility] Comment on above: Performed By: #### B FAMILY DEVELOPMENT EXTENSION SPECIALIST, CK, CBC, PT, CMP, HS TROP, DDIMER ####[address] Comprehensive Metabolic Pane cony 06-15-2024 Albumin [Mass/Vol] 4.4 g/dL Normal 3.5-5.7 [facility] Comment on above: Performed By: #### B FAMILY DEVELOPMENT EXTENSION SPECIALIST, CK, CBC, PT, CMP, HS TROP, DDIMER ####[address] Albumin/Globulin [Mass ratio] 1.3 {ratio} Normal [facility] Comment on above: Performed By: #### B FAMILY DEVELOPMENT EXTENSION SPECIALIST, CK, CBC, PT, CMP, HS TROP, DDIMER ####[address] ALP [Catalytic activity/Vol] 75 U/L Normal 34-104 [facility] Comment on above: Performed By: #### B FAMILY DEVELOPMENT EXTENSION SPECIALIST, CK, CBC, PT, CMP, HS TROP, DDIMER ####[id number] [facility] ALT [Catalytic activity/Vol] 24 U/L Normal 7-52 [facility] Comment on above: Performed By: #### B FAMILY DEVELOPMENT EXTENSION SPECIALIST, CK, CBC, PT, CMP, HS TROP, DDIMER ####[address] Anion gap [Moles/Vol] 15.6 mmol/L High 6.0-15.0 Th e [facility] Comment on above: Performed By: #### B FAMILY DEVELOPMENT EXTENSION SPECIALIST, CK, CBC, PT, CMP, HS TROP, DDIMER ####[address] AST [Catalytic activity/Vol] 20 U/L Normal 13-39 [facility] Comment on above: Performed By: #### B FAMILY DEVELOPMENT EXTENSION SPECIALIST, CK, CBC, PT, CMP, HS TROP, DDIMER ####[address] Bilirubin [Mass/Vol] 0.2 mg/dL Low 0.3-1.0 [facility] Comment on above: Performed By: #### B FAMILY DEVELOPMENT EXTENSION SPECIALIST, CK, CBC, PT, CMP, HS TROP, DDIMER ####[address] Calcium [Mass/Vol] 9.9 mg/dL Normal 8.6-10.3 [facility] Comment on above: Performed By: #### B FAMILY DEVELOPMENT EXTENSION SPECIALIST, CK, CBC, PT, CMP, HS TROP, DDIMER ####[address] Chloride [Moles/Vol] 103 mmol/L Normal 98-107 [facility] Comment on above: Performed By: #### B FAMILY DEVELOPMENT EXTENSION SPECIALIST, CK, CBC, PT, CMP, HS TROP, DDIMER ####[address] CO2 [Moles/Vol] 24.1 mmol/L Normal 21.0-31.0 [facility] Comment on above: Performed By: #### B FAMILY DEVELOPMENT EXTENSION SPECIALIST, CK, CBC, PT, CMP, HS TROP, DDIMER ####[address] Creatinine [Mass/Vol] 0.66 mg/dL Normal 0.60-1.20 [facility] Comment on above: Performed By: #### B FAMILY DEVELOPMENT EXTENSION SPECIALIST, CK, CBC, PT, CMP, HS TROP, DDIMER ####[address] Creatinine Clr Calc Pharmacy 111.66 Normal [facility] Comment on above: Result Comment: PERF ORMED BY:[address] [place], [place] [phone] MEDICAL DIRECTORBINH MOREJON M.D. Performed By: #### B FAMILY DEVELOPMENT EXTENSION SPECIALIST, CK, CBC, PT, CMP, HS TROP, DDIMER ####[place] [id number] [facility] GFR/1.73 sq M.predicted MDRD (S/P/Bld) [Vol rate/Area] mL/min/{1.73_m2} Normal [facility] Comment on above: Performed By: #### B FAMILY DEVELOPMENT EXTENSION SPECIALIST, CK, CBC, PT, CMP, HS TROP, DDIMER ####[address] Globulin (S) [Mass/Vol] 3.3 g/dL Normal T he [facility] Comment on above: Performed By: #### B FAMILY DEVELOPMENT EXTENSION SPECIALIST, CK, CBC, PT, CMP, HS TROP, DDIMER ####[address] Glucose [Mass/Vol] 121 mg/dL High 70-100 [facility] Comment on above: Result Comment: [facility] Glucose Reference Range is dependent on time and content of last meal. Glucose of more than 200 mg/dL in a nonstressed, ambulatory subject supports the diagnosis of Diabetes Mellitus. ADA recommended reference range Performed By: #### B FAMILY DEVELOPMENT EXTENSION SPECIALIST, CK, CBC, PT, CMP, HS TROP, DDIMER ####[place] [id number] [facility] Potassium [Moles/Vol] 3.7 mmol/L Normal 3.5-5.1 [facility] Comment on above: Performed By: #### B FAMILY DEVELOPMENT EXTENSION SPECIALIST, CK, CBC, PT, CMP, HS TROP, DDIMER ####[place] [address] [id number] [facility] Protein [Mass/Vol] 7.7 g/dL Normal 6.4-8.9 [facility] Comment on above: Performed By: #### B FAMILY DEVELOPMENT EXTENSION SPECIALIST, CK, CBC, PT, CMP, HS TROP, DDIMER ####[facility] [place] [address] [facility] Sodium [Moles/Vol] 139 mmol/L Normal 136-145 [facility] Comment on above: Performed By: #### B FAMILY DEVELOPMENT EXTENSION SPECIALIST, CK, CBC, PT, CMP, HS TROP, DDIMER ####[facility] [place] [address] [facility] Urea nitrogen [Mass/Vol] 12 mg/dL Normal 7-25 [facility] Comment on above: Performed By: #### B FAMILY DEVELOPMENT EXTENSION SPECIALIST, CK, CBC, PT, CMP, HS TROP, DDIMER ####[address] [place] [address] [facility] Creatine Kinaseon 06-15-2024 CK [Catalytic activity/Vol] 111 U/L Normal 30-223 [facility] Comment on above: Performed By: #### B FAMILY DEVELOPMENT EXTENSION SPECIALIST, CK, CBC, PT, CMP, HS TROP, DDIMER ####[address] [place] [id number] [facility] Creatine kinase [Enzymatic a ctivity/volume] in Serum or PlasmaOrdered By: John Cortes on 06-15-2024 CK [Catalytic activity/Vol] Creatine kinase [Enzymatic activity/volume] in Serum or Plasma 30-223 [facility] Creatinine [Mass/volume] in Serum or PlasmaOrdered By: John Cortes on 06-15-2024 Creatinine [Mass/Vol] Creatinine [Mass/volume] in Serum or Plasma 0.60-1.20 [facility] D-Dimer High Sensitivityon 0 06-15-2024 D-Dimer High Sensitivity <200 Normal 0-243 [facility] Comment on above: Result Comment: The reference range for D-dimer is <243 ng/mL D-dimer units. D-dimer results must be used in conjunction with a clinical pretest probability (PTP) assessment model for deep vein thrombosis (DVT) and pulmonary embolism (PE). Results <230 ng/mL d-dimer units can be used as a negative predictor in patients with low or moderate probability for DVT/PE. Results above the exclusion threshold of 230 ng/ml D-dimer units for DVT/PE may indicate the need for further diagnostic testing. D-Dimer can be increased in hospitalized patients due to co-morbid conditions. A hematocrit value greater than 55% may lead to inaccurate results in coagulation testing. Patients having hematocrit values >55% require a special collection tube for coagulation studies. Please contact the laboratory at [phone] for redraw instructions.PERFORMED BY:[facility] [place], [place] [phone] MEDICAL DIRECTORBINH MOREJON M.D. Performed By: #### B FAMILY DEVELOPMENT EXTENSION SPECIALIST, CK, CBC, PT, CMP, HS TROP, DDIMER ####[facility] [address] [place] [address] [facility] ECG 12 lead ECGon 06-15-2024 ECG 12 lead ECG Normal [facility] Eosinophils Auto (Bld) [#/Vo l]Ordered By: John Cortes on 06-15-2024 Eosinophils (Bld) [#/Vol] Automated eosinophil count 0.0-0.45 [facility] Eosinophils/100 WBC Auto (Bl d)Ordered By: John Cortes on 06-15-2024 Eosinophils/100 WBC (Bld) Automated eosinophil % . [facility] Erythrocyte distribution wid th Auto (RBC) [Ratio]Ordered By: John Cortes on 06-15-2024 Erythrocyte distribution width (RBC) [Ratio] Erythrocyte distribution width [Ratio] by Automated count 11.9-15.3 [facility] Fibrin D-dimer [Presence] in Platelet poor plasma by Latex agglutinationOrdered By: John Cortes on 06-15-2024 Fibrin D-dimer LA Ql (PPP) Fibrin D-dimer [Presence] in Platelet poor plasma by Latex agglutination 0-243 [facility] Globulin Calc (S) [Mass/Vol] Ordered By: John Cortes on 06-15-2024 Globulin (S) [Mass/Vol] Serum globulin measurement by calculation (mass/volume) [facility] Glucose [Mass/volume] in Ser um or PlasmaOrdered By: John Cortes on 06-15-2024 Glucose [Mass/Vol] Glucose [Mass/volume ] in Serum or Plasma High 70-100 [facility] Hematocrit Auto (Bld) [Volum e fraction]Ordered By: John Cortes on 06-15-2024 Hematocrit (Bld) [Volume fraction] Hematocrit [Volume Fraction] of Blood by Automated count 34.0-46.4 [facility] Hemoglobin [Mass/volume] in BloodOrdered By: John Cortes on 06-15-2024 Hemoglobin (Bld) [Mass/Vol] Hemoglobin [Mass/volume] in Blood 11.8-15.4 [facility] INR in Platelet poor plasma by Coagulation assayOrdered By: John Cortes on 06-15-2024 INR Coag (PPP) [Relative time] INR in Platelet poor plasma by Coagulation assay [facility] Leukocytes [#/volume] correc jacki for nucleated erythrocytes in Blood by Automated counOrdered By: John Cortes on 06-15-2024 WBC corrected for nucl RBC Auto (Bld) [#/Vol] Leukocytes [#/volume] corrected for nucleated erythrocytes in Blood by Automated coun High 3.8-11.6 [facility] Lymphocytes Auto (Bld) [#/Vo l]Ordered By: John Cortes on 06-15-2024 Lymphocytes (Bld) [#/Vol] Lymphocytes [#/volume] in Blood by Automated count 1.00-4.8 [facility] Lymphocytes/100 WBC Auto (Bl d)Ordered By: John Cortes on 06-15-2024 Lymphocytes/100 WBC (Bld) Lymphocytes/100 leukocytes in Blood by Automated count . [facility] MCH Auto (RBC) [Entitic mass ]Ordered By: John Cortes on 06-15-2024 MCH (RBC) [Entitic mass] MCH [Entitic ma ss] by Automated count 24.7-34.3 [facility] MCHC Auto (RBC) [Mass/Vol]Or dered By: John Cortes on 06-15-2024 MCHC (RBC) [Mass/Vol] MCHC [Mass/volume] by Automated count 32.0-35.0 [facility] MCV Auto (RBC) [Entitic vol] Ordered By: John Cortes on 06-15-2024 MCV (RBC) [Entitic vol] MCV [Entitic vol ume] by Automated count 80-100 [facility] Monocyte distribution width [Entitic volume] in Blood by AutomatedOrdered By: John Cortes on 06-15-2024 Monocyte distribution width Auto (Bld) [Entitic vol] Monocyte distribution width [Entitic volume] in Blood by Automated High 0.00-20.00 [facility] Monocytes Auto (Bld) [#/Vol] Ordered By: John Cortes on 06-15-2024 Monocytes (Bld) [#/Vol] Automated blood monocyte count 0.0-0.8 [facility] Monocytes/100 WBC Auto (Bld) Ordered By: John Cortes on 06-15-2024 Monocytes/100 WBC (Bld) Automated monocyte % . [facility] Natriuretic peptide B [Mass/ Vol]Ordered By: John Cortes on 06-15-2024 Natriuretic peptide B (Bld) [Mass/Vol] BNP ser/plas 5-100 [facility] Neutrophils Auto (Bld) [#/Vo l]Ordered By: John Cortes on 06-15-2024 Neutrophils (Bld) [#/Vol] Neutrophils [#/volume] in Blood by Automated count 1.8-7.7 [facility] Neutrophils/100 WBC Auto (Bl d)Ordered By: John Cortes on 06-15-2024 Neutrophils/100 WBC (Bld) Automated neutrophil % . [facility] No Panel InformationOrdered By: John Cortes on 06-15-2024 > 60.0 mL/Min [facility] 111.66 [facility] Nucleated erythrocytes [Pres ence] in Blood by Automated countOrdered By: John Cortes on 06-15-2024 Nucleated RBC Auto Ql (Bld) Nucleated erythrocytes [Presence] in Blood by Automated count 0-0.5 [facility] Platelet mean volume Auto (B ld) [Entitic vol]Ordered By: John Cortes on 06-15-2024 Platelet mean volume (Bld) [Entitic vol] Platelet mean volume [Entitic volume] in Blood by Automated count 6.3-10.7 [facility] Platelets Auto (Bld) [#/Vol] Ordered By: John Cortes on 06-15-2024 Platelets (Bld) [#/Vol] Platelets [#/vol ume] in Blood by Automated count High 150-450 [facility] Potassium [Moles/volume] in Serum or PlasmaOrdered By: John Cortes on 06-15-2024 Potassium [Moles/Vol] Potassium [Moles/volume] in Serum or Plasma 3.5-5.1 [facility] Protein [Mass/volume] in Ser um or PlasmaOrdered By: John Cortes on 06-15-2024 Protein [Mass/Vol] Protein [Mass/volume ] in Serum or Plasma 6.4-8.9 [facility] Prothrombin Time INRon 06-15 INR Coag (PPP) [Relative time] 1.0 {INR} Normal [facility] Comment on above: Result Comment: INR Therapeutic Range A) Pre- and Peroperative OAT started two weeks before surgery. NOT HIP SURGERY: 1.5 - 2.5 HIP SURGERY: 2 - 3 B) Primary and secondary prevention of venous THROMBOSIS: 2 - 3 C) Active venous thrombosis, pulmonary embolism and prevention of recurrent venous thrombosis: 2 - 3 D) Prevention of arterial thromboembolism including patients with mechanical heart valves: 3 - 4.5 Performed By: #### B FAMILY DEVELOPMENT EXTENSION SPECIALIST, CK, CBC, PT, CMP, HS TROP, DDIMER ####[facility] [id number] [place] [id number] [facility] PT Coag (PPP) [Time] 11.2 s Normal 9.0-12.9 [facility] Comment on above: Result Comment: A he matocrit value greater than 55% may lead to inaccurate results in coagulation testing. Patients having hematocrit values >55% require a special collection tube for coagulation studies. Please contact the laboratory at [phone] for redraw instructions. Performed By: #### B FAMILY DEVELOPMENT EXTENSION SPECIALIST, CK, CBC, PT, CMP, HS TROP, DDIMER ####[facility] [id number] [facility] Prothrombin time (PT)Ordered By: John Cortes on 06-15-2024 PT Coag (PPP) [Time] Prothrombin time (PT) 9.0- 12.9 [facility] RBC Auto (Bld) [#/Vol]Ordere d By: John Cortes on 06-15-2024 RBC (Bld) [#/Vol] Erythrocytes [#/volume] in Blood by Automated count 3.60-5.00 [facility] Serum or plasma albumin/glob ulin mass ratioOrdered By: John Cortes on 06-15-2024 Albumin/Globulin [Mass ratio] Serum or plasma albumin/globulin mass ratio [facility] Serum or plasma anion gap de terminationOrdered By: John Cortes on 06-15-2024 Anion gap [Moles/Vol] Serum or plasma an ion gap determination High 6.0-15.0 [facility] Sodium [Moles/volume] in Ser um or PlasmaOrdered By: John Cortes on 06-15-2024 Sodium [Moles/Vol] Sodium [Moles/volume ] in Serum or Plasma 136-145 [facility] Troponin I High Sensitivityo n 06-15-2024 Troponin I High Sensitivity 12 Normal 0-15 [facility] Comment on above: Result Comment: The Troponin units of report have been changed to meet the Chest Pain Accreditation requirement, element EC5.M1l2. Troponin units are changed from pg/ml to ng/L. Also, the decimal is removed and results are in whole numbers.PERFORMED BY:[facility] [place], [place] [phone] MEDICAL DIRECTORBINH MOREJON M.D. Performed By: #### B FAMILY DEVELOPMENT EXTENSION SPECIALIST, CK, CBC, PT, CMP, HS TROP, DDIMER ####[facility] [place] [address] [facility] Troponin I.cardiac [Mass/vol ume] in Serum or Plasma by Detection limit <= 0.01 ng/Ordered By: John Cortes on 06-15-2024 Troponin I.cardiac DL <= 0.01 ng/mL [Mass/Vol] Troponin I.cardiac [Mass/volume] in Serum or Plasma by Detection limit <= 0.01 ng/ 0-15 [facility] Urea nitrogen [Mass/volume] in Serum or PlasmaOrdered By: John Cortes on 06-15-2024 Urea nitrogen [Mass/Vol] Urea nitrogen [Mass/volume] in Serum or Plasma 7-25 [facility] WBC Auto (Bld) [#/Vol]Ordere d By: John Cortes on 06-15-2024 WBC (Bld) [#/Vol] Leukocytes [#/volume ] in Blood by Automated count High 3.8-11.6 [facility] XR chest 1V portableon 06-15 XR chest 1V portable Normal [facility] Appearance of UrineOrdered B y: John Cortes on 03-12-2025 Appearance (U) Urine appearance Clear [facility] Bacteria [Presence] in Urine by AutomatedOrdered By: John Cortes on 06-10-2024 Bacteria Auto Ql (U) Bacteria [Presence] in Urine by Automated None Seen [facility] Bilirubin Test strip Ql (U)O rdered By: John Sebastian on 06-10-2024 Bilirubin Ql (U) Bilirubin.total [Presence] in Urine by Test strip Negative [facility] COVID Cepheid NegativeOrdere d By: John Cortes on 06-10-2024 SARS-CoV-2 (COVID-19) RNA EMI+probe Ql (Unsp spec) COVID Cepheid Negative [facility] COVID-19 / Flu A/B / RSV PCR on 06-10-2024 SARS-CoV-2 (COVID-19) RNA EMI+probe Ql (Unsp spec) Normal [facility] Comment on above: Performed By: #### C EPHEID NEG, COVID19 FLU RSV, ADDONUAPLUS ####[place] [address] Cepheid COVID PCR Negativeon 06-10-2024 SARS-CoV-2 (COVID-19) RNA EMI+probe Ql (Unsp spec) Negative Normal Negative [facility] Comment on above: Result Comment: This is a duplicate Cepheid Xpert Xpress CoV-2/Flu/RSV Plus RNA by RT-PCR result to be used for statistical tracking purpose only.PERFORMED BY:[address] [place], [place] [phone] MEDICAL DIRECTORBINH MOREJON M.D. Performed By: #### C EPHEID NEG, COVID19 FLU RSV, ADDONUAPLUS ####[address] [place] [id number] [facility] Color Auto (U)Ordered By: Telly Cortes on 06-10-2024 Color (U) Color of Urine by Auto Yellow [facility] Dipstick and Microscopicon 0 06-10-2024 Appearance (U) Clear Normal Clear [facility] Comment on above: Order Comment: Name Collection Type:: Clean-Voided Midstream Performed By: #### C EPHEID NEG, COVID19 FLU RSV, ADDONUAPLUS ####[address] [address] [place] Bacteria,Urine None Seen Normal None Seen [facility] Comment on above: Order Comment: Name Collection Type:: Clean-Voided Midstream Performed By: #### C EPHEID NEG, COVID19 FLU RSV, ADDONUAPLUS ####[address] [address] [facility] Bilirubin,Urine Negative Normal Negative [facility] Comment on above: Order Comment: Name Collection Type:: Clean-Voided Midstream Performed By: #### C EPHEID NEG, COVID19 FLU RSV, ADDONUAPLUS ####[address] [address] [facility] Color (U) Light-Yellow Normal Yellow [facility] Comment on above: Order Comment: Name Collection Type:: Clean-Voided Midstream Performed By: #### C EPHEID NEG, COVID19 FLU RSV, ADDONUAPLUS ####[address] [address] [facility] Glucose Ql (U) Normal Normal Normal [facility] Comment on above: Order Comment: Name Collection Type:: Clean-Voided Midstream Performed By: #### C EPHEID NEG, COVID19 FLU RSV, ADDONUAPLUS ####[address] [address] [facility] Hyaline Casts,Urine None Normal 0-8 [facility] Comment on above: Order Comment: Name Collection Type:: Clean-Voided Midstream Result Comment: PERF ORMED BY:[address] [place], [place] [phone] MEDICAL RAIZA MOREJON M.D. Performed By: #### C EPHEID NEG, COVID19 FLU RSV, ADDONUAPLUS ####[address] [address] [facility] Ketones Ql (U) Negative Normal Negative [facility] Comment on above: Order Comment: Name Collection Type:: Clean-Voided Midstream Performed By: #### C EPHEID NEG, COVID19 FLU RSV, ADDONUAPLUS ####[place] [id number] [facility] Leukocyte esterase Test strip Ql (U) Negative Normal Negative [facility] Comment on above: Order Comment: Name Collection Type:: Clean-Voided Midstream Performed By: #### C EPHEID NEG, COVID19 FLU RSV, ADDONUAPLUS ####[place] [id number] [facility] Nitrite,Urine Negative Normal Negative [facility] Comment on above: Order Comment: Name Collection Type:: Clean-Voided Midstream Performed By: #### C EPHEID NEG, COVID19 FLU RSV, ADDONUAPLUS ####[place] [id number] [facility] Occult Blood,Urine 1+ High Negative [facility] Comment on above: Order Comment: Name Collection Type:: Clean-Voided Midstream Result Comment: PERF ORMED BY:[address] [place], [place] [phone] MEDICAL DIRECTORBINH MOREJON M.D. Performed By: #### C EPHEID NEG, COVID19 FLU RSV, ADDONUAPLUS ####[place] [id number] [facility] pH (U) 5.5 [pH] Normal 5.0-9.0 [facility] Comment on above: Order Comment: Name Collection Type:: Clean-Voided Midstream Performed By: #### C EPHEID NEG, COVID19 FLU RSV, ADDONUAPLUS ####[address] [address] [facility] Protein,Urine Negative Normal Negative [facility] Comment on above: Order Comment: Name Collection Type:: Clean-Voided Midstream Performed By: #### C EPHEID NEG, COVID19 FLU RSV, ADDONUAPLUS ####[place] [id number] [facility] RBC,Urine None Seen Normal 0-4 [facility] Comment on above: Order Comment: Name Collection Type:: Clean-Voided Midstream Performed By: #### C EPHEID NEG, COVID19 FLU RSV, ADDONUAPLUS ####[address] Specificy [place],Urine 1.014 Normal 1.001-1.030 [facility] Comment on above: Order Comment: Name Collection Type:: Clean-Voided Midstream Performed By: #### C EPHEID NEG, COVID19 FLU RSV, ADDONUAPLUS ####[address] Squamous Epithelial Cell,Urine 1-2 Normal 0-2 [facility] Comment on above: Order Comment: Name Collection Type:: Clean-Voided Midstream Performed By: #### C EPHEID NEG, COVID19 FLU RSV, ADDONUAPLUS ####[address] Urobilinogen,Urine Normal Normal Normal [facility] Comment on above: Order Comment: Name Collection Type:: Clean-Voided Midstream Performed By: #### C EPHEID NEG, COVID19 FLU RSV, ADDONUAPLUS ####[address] WBC,Urine 1-2 Normal 0-4 [facility] Comment on above: Order Comment: Name Collection Type:: Clean-Voided Midstream Performed By: #### C EPHEID NEG, COVID19 FLU RSV, ADDONUAPLUS ####[address] Epithelial cells.squamous [# /area] in Urine sediment by Automated countOrdered By: John Cortes on 06-10-2024 Epithelial cells.squamous Auto (Urine sed) [#/Area] Epithelial cells.squamous [#/area] in Urine sediment by Automated count 0-2 [facility] Erythrocytes [#/area] in Uri ne sediment by Automated countOrdered By: John Cortes on 06-10-2024 RBC Auto (Urine sed) [#/Area] Erythrocytes [#/area] in Urine sediment by Automated count 0-4 [facility] Glucose [Mass/volume] in Uri ne by Test stripOrdered By: John Cortes on 06-10-2024 Glucose Test strip (U) [Mass/Vol] Glucose [Mass/volume] in Urine by Test strip Normal [facility] Hemoglobin Test strip Ql (U) Ordered By: John Cortes on 06-10-2024 Hemoglobin Ql (U) Hemoglobin [Presence ] in Urine by Test strip High Negative [facility] Hyaline casts [#/area] in Ur ine sediment by Automated countOrdered By: John Cortes on 06-10-2024 Hyaline casts Auto (Urine sed) [#/Area] Hyaline casts [#/area] in Urine sediment by Automated count 0-8 [facility] Ketones Test strip Ql (U)Ord ered By: John Cortes on 06-10-2024 Ketones Ql (U) Ketones [Presence] i n Urine by Test strip Negative [facility] Leukocyte esterase [Presence ] in Urine by Test stripOrdered By: John Cortes on 06-10-2024 Leukocyte esterase Test strip Ql (U) Leukocyte esterase [Presence] in Urine by Test strip Negative [facility] Leukocytes [#/area] in Urine sediment by Automated countOrdered By: John Cortes on 06-10-2024 WBC Auto (Urine sed) [#/Area] Leukocytes [#/area] in Urine sediment by Automated count 0-4 [facility] Nitrite Test strip Ql (U)Ord ered By: John Cortes on 06-10-2024 Nitrite Ql (U) Nitrite [Presence] i n Urine by Test strip Negative [facility] Protein Test strip (U) [Mass /Vol]Ordered By: John Cortes on 06-10-2024 Protein (U) [Mass/Vol] Protein [Mass/vol ume] in Urine by Test strip Negative [facility] Specific gravity Test strip (U) [Rel density]Ordered By: John Cortes on 06-10-2024 Specific gravity (U) [Rel density] Specific gravity of Urine by Test strip 1.001-1.030 [facility] Urobilinogen Test strip (U) [Mass/Vol]Ordered By: John Cortes on 06-10-2024 Urobilinogen (U) [Mass/Vol] Urobilinogen [Mass/volume] in Urine by Test strip Normal [facility] X-ray reportOrdered By: Mitchell Cleaning on 06-10-2024 Study report [facility] XR chest 2V*on 06-10-2024 XR chest 2V* Normal [facility] pH Test strip (U)Ordered By: John Cortes on 06-10-2024 pH (U) pH of Urine by Test strip 5.0-9.0 [facility] X-ray reportOrdered By: Miah Roche on 05-13-2024 Study report [facility] Work Phone: XR knee RT 4V*on 05-13-2024 XR knee RT 4V* Normal [facility] Appearance of UrineOrdered B y: Drew Ba on 05-10-2024 Appearance (U) Urine appearance Clear [facility] B-Type Natriuretic Peptideon 05-10-2024 Natriuretic peptide B (Bld) [Mass/Vol] 12.0 pg/mL Normal 5-100 [facility] Comment on above: Result Comment: PERF ORMED BY:[address] [place], [place] [phone] MEDICAL DIRECTORBINH MOREJON M.D. Performed By: #### H S TROP, CK, CBC, BMP, BNP, PT ####[address] [place] [address] [facility] Bacteria [Presence] in Urine by AutomatedOrdered By: Drew Ba on 05-10-2024 Bacteria Auto Ql (U) Bacteria [Presence] in Urine by Automated None Seen [facility] Basic Metabolic Panelon Anion gap [Moles/Vol] 12.1 mmol/L Normal 6.0-15.0 Th e [facility] Comment on above: Performed By: #### H S TROP, CK, CBC, BMP, BNP, PT ####[address] [address] [facility] Calcium [Mass/Vol] 9.5 mg/dL Normal 8.6-10.3 [facility] Comment on above: Performed By: #### H S TROP, CK, CBC, BMP, BNP, PT ####[address] Chloride [Moles/Vol] 102 mmol/L Normal 98-107 [facility] Comment on above: Performed By: #### H S TROP, CK, CBC, BMP, BNP, PT ####[address] CO2 [Moles/Vol] 27.4 mmol/L Normal 21.0-31.0 [facility] Comment on above: Performed By: #### H S TROP, CK, CBC, BMP, BNP, PT ####[address] Creatinine [Mass/Vol] 0.79 mg/dL Normal 0.60-1.20 [facility] Comment on above: Performed By: #### H S TROP, CK, CBC, BMP, BNP, PT ####[address] Creatinine Clr Calc Pharmacy 89.62 Normal [facility] Comment on above: Result Comment: PERF ORMED BY:[address] [place], [place] [phone] MEDICAL DIRECTORBINH MOREJON M.D. Performed By: #### H S TROP, CK, CBC, BMP, BNP, PT ####[address] GFR/1.73 sq M.predicted MDRD (S/P/Bld) [Vol rate/Area] mL/min/{1.73_m2} Normal [facility] Comment on above: Performed By: #### H S TROP, CK, CBC, BMP, BNP, PT ####[place] [id number] [facility] Glucose [Mass/Vol] 100 mg/dL Normal 70-100 [facility] Comment on above: Result Comment: [place] Glucose Reference Range is dependent on time and content of last meal. Glucose of more than 200 mg/dL in a nonstressed, ambulatory subject supports the diagnosis of Diabetes Mellitus. ADA recommended reference range Performed By: #### H S TROP, CK, CBC, BMP, BNP, PT ####[address] Potassium [Moles/Vol] 3.5 mmol/L Normal 3.5-5.1 [facility] Comment on above: Performed By: #### H S TROP, CK, CBC, BMP, BNP, PT ####[address] Sodium [Moles/Vol] 138 mmol/L Normal 136-145 [facility] Comment on above: Performed By: #### H S TROP, CK, CBC, BMP, BNP, PT ####[place] [address] Urea nitrogen [Mass/Vol] 12 mg/dL Normal 7-25 [facility] Comment on above: Performed By: #### H S TROP, CK, CBC, BMP, BNP, PT ####[address] Basophils Auto (Bld) [#/Vol] Ordered By: Denver Hess on 05-10-2024 Basophils (Bld) [#/Vol] Automated basoph il count 0.0-0.2 [facility] Basophils/100 WBC Auto (Bld) Ordered By: Denver Hess on 05-10-2024 Basophils/100 WBC (Bld) Automated basophil % . [facility] Bilirubin Test strip Ql (U)O rdered By: Drew Ba on 05-10-2024 Bilirubin Ql (U) Bilirubin.total [Presence] in Urine by Test strip Negative [facility] COVID Cepheid NegativeOrdere d By: Drew Ba on 05-10-2024 SARS-CoV-2 (COVID-19) RNA EMI+probe Ql (Unsp spec) COVID Cepheid Negative [facility] COVID-19 / Flu A/B / RSV PCR on 05-10-2024 SARS-CoV-2 (COVID-19) RNA EMI+probe Ql (Unsp spec) Normal [facility] Comment on above: Performed By: #### C OVID19 FLU RSV, CEPHEID NEG ####[address] [place] [address] [facility] Calcium [Mass/volume] in Ser um or PlasmaOrdered By: Denver Hess on 05-10-2024 Calcium [Mass/Vol] Calcium [Mass/volume ] in Serum or Plasma 8.6-10.3 [facility] Carbon dioxide, total [Moles /volume] in Serum or PlasmaOrdered By: Denver Hess on 05-10-2024 CO2 [Moles/Vol] Carbon dioxide, tota l [Moles/volume] in Serum or Plasma 21.0-31.0 [facility] Cepheid COVID PCR Negativeon 05-10-2024 SARS-CoV-2 (COVID-19) RNA EMI+probe Ql (Unsp spec) Negative Normal Negative [facility] Comment on above: Result Comment: This is a duplicate Cepheid Xpert Xpress CoV-2/Flu/RSV Plus RNA by RT-PCR result to be used for statistical tracking purpose only.PERFORMED BY:[address] [address] [address] [address] [place], [place] [phone] MEDICAL DIRECTORMOMEGHA MOREJON M.D. Performed By: #### C OVID19 FLU RSV, CEPHEID NEG ####[address] [place] [address] [place] Chloride [Moles/volume] in S jett or PlasmaOrdered By: Denver Hess on 05-10-2024 Chloride [Moles/Vol] Chloride [Moles/volume] in Serum or Plasma 98-107 [facility] Color Auto (U)Ordered By: Miguel Angel Ba on 05-10-2024 Color (U) Color of Urine by Auto Yellow [facility] Complete Blood Count Auto Di ffon 05-10-2024 Basophils (Bld) [#/Vol] 0.0 10*3/uL Normal 0.0-0.2 [facility] Comment on above: Result Comment: PERF ORMED BY:[address] [address] [address] [place], [place] [phone] MEDICAL DIRECTORMOHAMMADELYN M EL-FAKHARANY M.D. Performed By: #### H S TROP, CK, CBC, BMP, BNP, PT ####[address] Basophils/100 WBC (Bld) 0.6 % Normal . T luna [facility] Comment on above: Performed By: #### H S TROP, CK, CBC, BMP, BNP, PT ####[address] Eosinophils (Bld) [#/Vol] 0.4 10*3/uL Normal 0.0-0.45 [facility] Comment on above: Performed By: #### H S TROP, CK, CBC, BMP, BNP, PT ####[address] Eosinophils/100 WBC (Bld) 5.8 % Normal . [facility] Comment on above: Performed By: #### H S TROP, CK, CBC, BMP, BNP, PT ####[address] Erythrocyte distribution width (RBC) [Ratio] 14.9 % Normal 11.9-15.3 [facility] Comment on above: Performed By: #### H S TROP, CK, CBC, BMP, BNP, PT ####[address] Hematocrit (Bld) [Volume fraction] 37.7 % Normal 34.0-46.4 [facility] Comment on above: Performed By: #### H S TROP, CK, CBC, BMP, BNP, PT ####[address] Hemoglobin (Bld) [Mass/Vol] 13.1 g/dL Normal 11.8-15.4 [facility] Comment on above: Performed By: #### H S TROP, CK, CBC, BMP, BNP, PT ####[address] Lymphocytes (Bld) [#/Vol] 2.1 10*3/uL Normal 1.00-4.8 [facility] Comment on above: Performed By: #### H S TROP, CK, CBC, BMP, BNP, PT ####[address] Lymphocytes/100 WBC (Bld) 34.4 % Normal . [facility] Comment on above: Performed By: #### H S TROP, CK, CBC, BMP, BNP, PT ####[address] MCH (RBC) [Entitic mass] 30.7 pg Normal 24.7-34.3 [facility] Comment on above: Performed By: #### H S TROP, CK, CBC, BMP, BNP, PT ####[address] MCV (RBC) [Entitic vol] 88.3 fL Normal 80-100 [facility] Comment on above: Performed By: #### H S TROP, CK, CBC, BMP, BNP, PT ####[address] Mean Corpuscular HGB Conc 34.8 g/dL Normal 32.0-35.0 [facility] Comment on above: Performed By: #### H S TROP, CK, CBC, BMP, BNP, PT ####[address] Monocytes (Bld) [#/Vol] 0.5 10*3/uL Normal 0.0-0.8 [facility] Comment on above: Performed By: #### H S TROP, CK, CBC, BMP, BNP, PT ####[address] Monocytes/100 WBC (Bld) 23.21 % High 0.00-20.00 [facility] Comment on above: Result Comment: For adults in ED, MDW > 20.0 may be associated with a higher risk of sepsis during the first 12 hrs of hospital admission Performed By: #### H S TROP, CK, CBC, BMP, BNP, PT ####[address] Monocytes/100 WBC (Bld) 8.6 % Normal . T he [facility] Comment on above: Performed By: #### H S TROP, CK, CBC, BMP, BNP, PT ####[address] Neutrophils (Bld) [#/Vol] 3.1 10*3/uL Normal 1.8-7.7 [facility] Comment on above: Performed By: #### H S TROP, CK, CBC, BMP, BNP, PT ####[address] Neutrophils/100 WBC (Bld) 50.6 % Normal . [facility] Comment on above: Performed By: #### H S TROP, CK, CBC, BMP, BNP, PT ####[address] NRBC% 0.2 /100{WBC} Normal 0-0.5 [facility] Comment on above: Performed By: #### H S TROP, CK, CBC, BMP, BNP, PT ####[address] Platelet mean volume (Bld) [Entitic vol] 7.7 fL Normal 6.3-10.7 [facility] Comment on above: Performed By: #### H S TROP, CK, CBC, BMP, BNP, PT ####[address] Platelets (Bld) [#/Vol] 356 10*3/uL Normal 150-450 [facility] Comment on above: Performed By: #### H S TROP, CK, CBC, BMP, BNP, PT ####[address] RBC (Bld) [#/Vol] 4.27 10*6/uL Normal 3.60-5.00 [facility] Comment on above: Performed By: #### H S TROP, CK, CBC, BMP, BNP, PT ####[address] [place], [place] [address] WBC (Bld) [#/Vol] 6.1 10*3/uL Normal 3.8-11.6 [facility] Comment on above: Performed By: #### H S TROP, CK, CBC, BMP, BNP, PT ####[address] [place] [address] [facility] Creatine Kinaseon 05-10-2024 CK [Catalytic activity/Vol] 203 U/L Normal 30-223 [facility] Comment on above: Performed By: #### H S TROP, CK, CBC, BMP, BNP, PT ####[place] [id number] [place] [id number] [facility] Creatine kinase [Enzymatic a ctivity/volume] in Serum or PlasmaOrdered By: Denver Hess on 05-10-2024 CK [Catalytic activity/Vol] Creatine kinase [Enzymatic activity/volume] in Serum or Plasma 30 [facility] Creatinine [Mass/volume] in Serum or PlasmaOrdered By: Denver Hess on 05-10-2024 Creatinine [Mass/Vol] Creatinine [Mass/volume] in Serum or Plasma 0.60-1.20 [facility] Dipstick and Microscopicon 0 05-10-2024 Appearance (U) Clear Normal Clear [facility] Comment on above: Order Comment: Name Collection Type:: Clean-Voided Midstream Performed By: #### A DDONUAPLUS ####[address] Bacteria,Urine Rare Normal None Seen [facility] Comment on above: Order Comment: Name Collection Type:: Clean-Voided Midstream Performed By: #### A DDONUAPLUS ####[place] [id number] [facility] Bilirubin,Urine Negative Normal Negative [facility] Comment on above: Order Comment: Name Collection Type:: Clean-Voided Midstream Performed By: #### A DDONUAPLUS ####[place] [id number] [facility] Color (U) Colorless Normal Yellow [facility] Comment on above: Order Comment: Name Collection Type:: Clean-Voided Midstream Performed By: #### A DDONUAPLUS ####[address] [address] [facility] Glucose Ql (U) Normal Normal Normal [facility] Comment on above: Order Comment: Name Collection Type:: Clean-Voided Midstream Performed By: #### A DDONUAPLUS ####[address] [address] [facility] Hyaline Casts,Urine 0-8 Normal 0-8 [facility] Comment on above: Order Comment: Name Collection Type:: Clean-Voided Midstream Performed By: #### A DDONUAPLUS ####[address] [address] [facility] Ketones Ql (U) Negative Normal Negative [facility] Comment on above: Order Comment: Name Collection Type:: Clean-Voided Midstream Performed By: #### A DDONUAPLUS ####[address] [address] [facility] Leukocyte esterase Test strip Ql (U) Negative Normal Negative [facility] Comment on above: Order Comment: Name Collection Type:: Clean-Voided Midstream Performed By: #### A DDONUAPLUS ####[address] [address] [facility] Mucus,Urine Rare Normal [facility] Comment on above: Order Comment: Name Collection Type:: Clean-Voided Midstream Result Comment: PERF ORMED BY:[address] [place], [place] [id number] MEDICAL DIRECTORBINH MOREJON M.D. Performed By: #### A DDONUAPLUS ####[address] [address] [facility] Nitrite,Urine Negative Normal Negative [facility] Comment on above: Order Comment: Name Collection Type:: Clean-Voided Midstream Performed By: #### A DDONUAPLUS ####[place] [id number] [facility] Occult Blood,Urine 1+ High Negative [facility] Comment on above: Order Comment: Name Collection Type:: Clean-Voided Midstream Result Comment: PERF ORMED BY:[place] [address] [place], [place] [phone] MEDICAL DIRECTORBINH MOREJON M.D. Performed By: #### A DDONUAPLUS ####[place] [id number] [facility] pH (U) 5.0 [pH] Normal 5.0-9.0 [facility] Comment on above: Order Comment: Name Collection Type:: Clean-Voided Midstream Performed By: #### A DDONUAPLUS ####[place] [id number] [facility] Protein,Urine Negative Normal Negative [facility] Comment on above: Order Comment: Name Collection Type:: Clean-Voided Midstream Performed By: #### A DDONUAPLUS ####[place] [id number] [facility] RBC,Urine None Seen Normal 0-4 [facility] Comment on above: Order Comment: Name Collection Type:: Clean-Voided Midstream Performed By: #### A DDONUAPLUS ####[place] [id number] [facility] Specificy [place],Urine 1.008 Normal 1.001-1.030 [facility] Comment on above: Order Comment: Name Collection Type:: Clean-Voided Midstream Performed By: #### A DDONUAPLUS ####[place] [id number] [facility] Squamous Epithelial Cell,Urine 1-2 Normal 0-2 [facility] Comment on above: Order Comment: Name Collection Type:: Clean-Voided Midstream Performed By: #### A DDONUAPLUS ####[place] [id number] [facility] Urobilinogen,Urine Normal Normal Normal [facility] Comment on above: Order Comment: Name Collection Type:: Clean-Voided Midstream Performed By: #### A DDONUAPLUS ####[facility] [id number] [place] [id number] [facility] WBC,Urine 1-2 Normal 0-4 [facility] Comment on above: Order Comment: Name Collection Type:: Clean-Voided Midstream Performed By: #### A DDONUAPLUS ####[facility] [id number] [place] [id number] [facility] ECG 12 lead ECGon 05-10-2024 ECG 12 lead ECG Normal [facility] Eosinophils Auto (Bld) [#/Vo l]Ordered By: Denver Hess on 05-10-2024 Eosinophils (Bld) [#/Vol] Automated eosinophil count 0.0-0.45 [facility] Eosinophils/100 WBC Auto (Bl d)Ordered By: Denver Hess on 05-10-2024 Eosinophils/100 WBC (Bld) Automated eosinophil % . [facility] Epithelial cells.squamous [# /area] in Urine sediment by Automated countOrdered By: Drew Ba on 05-10-2024 Epithelial cells.squamous Auto (Urine sed) [#/Area] Epithelial cells.squamous [#/area] in Urine sediment by Automated count 0-2 [facility] Erythrocyte distribution wid th Auto (RBC) [Ratio]Ordered By: Denver Hess on 05-10-2024 Erythrocyte distribution width (RBC) [Ratio] Erythrocyte distribution width [Ratio] by Automated count 11.9-15.3 [facility] Erythrocytes [#/area] in Uri ne sediment by Automated countOrdered By: Drew Ba on 05-10-2024 RBC Auto (Urine sed) [#/Area] Erythrocytes [#/area] in Urine sediment by Automated count 0-4 [facility] Glucose [Mass/volume] in Ser um or PlasmaOrdered By: Denver Hess on 05-10-2024 Glucose [Mass/Vol] Glucose [Mass/volume ] in Serum or Plasma 70-100 [facility] Glucose [Mass/volume] in Uri ne by Test stripOrdered By: Drew aB on 05-10-2024 Glucose Test strip (U) [Mass/Vol] Glucose [Mass/volume] in Urine by Test strip Normal [facility] Hematocrit Auto (Bld) [Volum e fraction]Ordered By: Denver Hess on 05-10-2024 Hematocrit (Bld) [Volume fraction] Hematocrit [Volume Fraction] of Blood by Automated count 34.0-46.4 [facility] Hemoglobin Test strip Ql (U) Ordered By: Drew Ba on 05-10-2024 Hemoglobin Ql (U) Hemoglobin [Presence ] in Urine by Test strip High Negative [facility] Hemoglobin [Mass/volume] in BloodOrdered By: Denver Hess on 05-10-2024 Hemoglobin (Bld) [Mass/Vol] Hemoglobin [Mass/volume] in Blood 11.8-15.4 [facility] Hyaline casts [#/area] in Ur ine sediment by Automated countOrdered By: Drew Ba on 05-10-2024 Hyaline casts Auto (Urine sed) [#/Area] Hyaline casts [#/area] in Urine sediment by Automated count 0-8 [facility] INR in Platelet poor plasma by Coagulation assayOrdered By: Denver Hess on 05-10-2024 INR Coag (PPP) [Relative time] INR in Platelet poor plasma by Coagulation assay [facility] Ketones Test strip Ql (U)Ord ered By: Drew Ba on 05-10-2024 Ketones Ql (U) Ketones [Presence] i n Urine by Test strip Negative [facility] Leukocyte esterase [Presence ] in Urine by Test stripOrdered By: Drew Ba on 05-10-2024 Leukocyte esterase Test strip Ql (U) Leukocyte esterase [Presence] in Urine by Test strip Negative [facility] Leukocytes [#/area] in Urine sediment by Automated countOrdered By: Drew Ba on 05-10-2024 WBC Auto (Urine sed) [#/Area] Leukocytes [#/area] in Urine sediment by Automated count 0-4 [facility] Leukocytes [#/volume] correc jacki for nucleated erythrocytes in Blood by Automated counOrdered By: Denver Hess on 05-10-2024 WBC corrected for nucl RBC Auto (Bld) [#/Vol] Leukocytes [#/volume] corrected for nucleated erythrocytes in Blood by Automated coun 3.8-11.6 [facility] Lymphocytes Auto (Bld) [#/Vo l]Ordered By: Denver Hess on 05-10-2024 Lymphocytes (Bld) [#/Vol] Lymphocytes [#/volume] in Blood by Automated count 1.00-4.8 [facility] Lymphocytes/100 WBC Auto (Bl d)Ordered By: Denver Hess on 05-10-2024 Lymphocytes/100 WBC (Bld) Lymphocytes/100 leukocytes in Blood by Automated count . [facility] MCH Auto (RBC) [Entitic mass ]Ordered By: Denver Hess on 05-10-2024 MCH (RBC) [Entitic mass] MCH [Entitic ma ss] by Automated count 24.7-34.3 [facility] MCHC Auto (RBC) [Mass/Vol]Or dered By: Denver Hess on 05-10-2024 MCHC (RBC) [Mass/Vol] MCHC [Mass/volume] by Automated count 32.0-35.0 [facility] MCV Auto (RBC) [Entitic vol] Ordered By: Denver Hess on 05-10-2024 MCV (RBC) [Entitic vol] MCV [Entitic vol ume] by Automated count 80-100 [facility] Monocyte distribution width [Entitic volume] in Blood by AutomatedOrdered By: Denver Hess on 05-10-2024 Monocyte distribution width Auto (Bld) [Entitic vol] Monocyte distribution width [Entitic volume] in Blood by Automated High 0.00-20.00 [facility] Monocytes Auto (Bld) [#/Vol] Ordered By: Denver Hess on 05-10-2024 Monocytes (Bld) [#/Vol] Automated blood monocyte count 0.0-0.8 [facility] Monocytes/100 WBC Auto (Bld) Ordered By: Denver Hess on 05-10-2024 Monocytes/100 WBC (Bld) Automated monocyte % . [facility] Mucus [Presence] in Urine by AutomatedOrdered By: Drew Ba on 05-10-2024 Mucus Auto Ql (U) Mucus [Presence] in Urine by Automated [facility] Natriuretic peptide B [Mass/ Vol]Ordered By: Denver Hess on 05-10-2024 Natriuretic peptide B (Bld) [Mass/Vol] BNP ser/plas 5-100 [facility] Neutrophils Auto (Bld) [#/Vo l]Ordered By: Denver Hess on 05-10-2024 Neutrophils (Bld) [#/Vol] Neutrophils [#/volume] in Blood by Automated count 1.8-7.7 [facility] Neutrophils/100 WBC Auto (Bl d)Ordered By: Denver Hess on 05-10-2024 Neutrophils/100 WBC (Bld) Automated neutrophil % . [facility] Nitrite Test strip Ql (U)Ord ered By: Drew Ba on 05-10-2024 Nitrite Ql (U) Nitrite [Presence] i n Urine by Test strip Negative [facility] No Panel InformationOrdered By: Denver Hess on 05-10-2024 > 60.0 mL/Min [facility] 89.62 [facility] Nucleated erythrocytes [Pres ence] in Blood by Automated countOrdered By: Denver Hess on 05-10-2024 Nucleated RBC Auto Ql (Bld) Nucleated erythrocytes [Presence] in Blood by Automated count 0-0.5 [facility] Platelet mean volume Auto (B ld) [Entitic vol]Ordered By: Denver Hess on 05-10-2024 Platelet mean volume (Bld) [Entitic vol] Platelet mean volume [Entitic volume] in Blood by Automated count 6.3-10.7 [facility] Platelets Auto (Bld) [#/Vol] Ordered By: Denver Hess on 05-10-2024 Platelets (Bld) [#/Vol] Platelets [#/vol ume] in Blood by Automated count 150-450 [facility] Potassium [Moles/volume] in Serum or PlasmaOrdered By: Denver Hess on 05-10-2024 Potassium [Moles/Vol] Potassium [Moles/volume] in Serum or Plasma 3.5-5.1 [facility] Protein Test strip (U) [Mass /Vol]Ordered By: Drew Ba on 05-10-2024 Protein (U) [Mass/Vol] Protein [Mass/vol ume] in Urine by Test strip Negative [facility] Prothrombin Time INRon 05-10 INR Coag (PPP) [Relative time] 1.0 {INR} Normal [facility] Comment on above: Result Comment: INR Therapeutic Range A) Pre- and Peroperative OAT started two weeks before surgery. NOT HIP SURGERY: 1.5 - 2.5 HIP SURGERY: 2 - 3 B) Primary and secondary prevention of venous THROMBOSIS: 2 - 3 C) Active venous thrombosis, pulmonary embolism and prevention of recurrent venous thrombosis: 2 - 3 D) Prevention of arterial thromboembolism including patients with mechanical heart valves: 3 - 4.5PERFORMED BY:[facility] [place], [place] [id number] MEDICAL DIRECTORBINH MOREJON M.D. Performed By: #### H S TROP, CK, CBC, BMP, BNP, PT ####[facility] [place] [address] [facility] PT Coag (PPP) [Time] 11.5 s Normal 9.0-12.9 [facility] Comment on above: Result Comment: A he matocrit value greater than 55% may lead to inaccurate results in coagulation testing. Patients having hematocrit values >55% require a special collection tube for coagulation studies. Please contact the laboratory at [phone] for redraw instructions. Performed By: #### H S TROP, CK, CBC, BMP, BNP, PT ####[facility] [place] [address] [facility] Prothrombin time (PT)Ordered By: Denver Hess on 05-10-2024 PT Coag (PPP) [Time] Prothrombin time (PT) 9.0- 12.9 [facility] RBC Auto (Bld) [#/Vol]Ordere d By: Denver Hess on 05-10-2024 RBC (Bld) [#/Vol] Erythrocytes [#/volume] in Blood by Automated count 3.60-5.00 [facility] Serum or plasma anion gap de terminationOrdered By: Denver Hess on 05-10-2024 Anion gap [Moles/Vol] Serum or plasma an ion gap determination 6.0-15.0 [facility] Sodium [Moles/volume] in Ser um or PlasmaOrdered By: Denver Hess on 05-10-2024 Sodium [Moles/Vol] Sodium [Moles/volume ] in Serum or Plasma 136-145 [facility] Specific gravity Test strip (U) [Rel density]Ordered By: Drew Ba on 05-10-2024 Specific gravity (U) [Rel density] Specific gravity of Urine by Test strip 1.001-1.030 [facility] Troponin I High Sensitivityo n 05-10-2024 Troponin I High Sensitivity 5 Normal 0-15 [facility] Comment on above: Result Comment: The Troponin units of report have been changed to meet the Chest Pain Accreditation requirement, element EC5.M1l2. Troponin units are changed from pg/ml to ng/L. Also, the decimal is removed and results are in whole numbers.PERFORMED BY:[facility] [place], [place] [phone] MEDICAL DIRECTORBINH MOREJON M.D. Performed By: #### H S TROP, CK, CBC, BMP, BNP, PT ####[facility] [id number] [place] [address] [facility] Troponin I.cardiac [Mass/vol ume] in Serum or Plasma by Detection limit <= 0.01 ng/Ordered By: Denver Hess on 05-10-2024 Troponin I.cardiac DL <= 0.01 ng/mL [Mass/Vol] Troponin I.cardiac [Mass/volume] in Serum or Plasma by Detection limit <= 0.01 ng/ 0-15 [facility] Urea nitrogen [Mass/volume] in Serum or PlasmaOrdered By: Denver Hess on 05-10-2024 Urea nitrogen [Mass/Vol] Urea nitrogen [Mass/volume] in Serum or Plasma 7-25 [facility] Urobilinogen Test strip (U) [Mass/Vol]Ordered By: Drew Ba on 05-10-2024 Urobilinogen (U) [Mass/Vol] Urobilinogen [Mass/volume] in Urine by Test strip Normal [facility] WBC Auto (Bld) [#/Vol]Ordere d By: Dnever Hess on 05-10-2024 WBC (Bld) [#/Vol] Leukocytes [#/volume ] in Blood by Automated count 3.8-11.6 [facility] XR chest 2V*on 05-10-2024 XR chest 2V* Normal [facility] pH Test strip (U)Ordered By: Drew Ba on 05-10-2024 pH (U) pH of Urine by Test strip 5.0-9.0 [facility] COVID Cepheid NegativeOrdere d By: PROVIDER TEMP on 05-08-2024 SARS-CoV-2 (COVID-19) RNA EMI+probe Ql (Unsp spec) COVID Cepheid Negative [facility] COVID-19 / Flu A/B / RSV PCR on 05-08-2024 SARS-CoV-2 (COVID-19) RNA EMI+probe Ql (Unsp spec) Normal [facility] Comment on above: Performed By: #### C OVID19 FLU RSV, CEPHEID NEG ####[address] Cepheid COVID PCR Negativeon 05-08-2024 SARS-CoV-2 (COVID-19) RNA EMI+probe Ql (Unsp spec) Negative Normal Negative [facility] Comment on above: Result Comment: This is a duplicate Cepheid Xpert Xpress CoV-2/Flu/RSV Plus RNA by RT-PCR result to be used for statistical tracking purpose only.PERFORMED BY:[address] [place], [place] [phone] MEDICAL DIRECTORBINH MOREJON M.D. Performed By: #### C OVID19 FLU RSV, CEPHEID NEG ####[address] Quick Strepon 05-08-2024 Quick Strep Normal [facility] Comment on above: Performed By: #### Q S ####[address] Streptococcus pyogenes antig en detectionOrdered By: John Cortes on 05-08-2024 S. pyogenes Ag Ql (Unsp spec) Streptococcus pyogenes antigen detection [facility] S. pyogenes Ag Ql (Unsp spec) Streptococcus pyogenes antigen detection [facility] XR chest 2V*on 05-08-2024 XR chest 2V* Normal [facility] WESTLEY with Reflexon 02-29-2024 [place]STLEY with Reflex Negative Normal Negative [facility] Comment on above: Order Comment: Reaso n for Exam Chronic diarrhea Reason for Exam Chronic fatigue;Myalgia, multiple sites;Paresthesia;Mild ane Result Comment: Perf ormed at: - [facility] [address] [id number] [employer]: Main Miranda PhD, Phone: [phone] Performed By: #### C ELIAC, ADNA, VITB1, CCP, RA, LYME AB wRFX, [place]ST[place] CHOICE ####[facility] ,#### MG, JOSE, ESR, TSH3, T4F, CBC, [id number], FE and TIBC, LIPID, CMP, CRP ####[facility] [id number] Alanine aminotransferase [En zymatic activity/volume] in Serum or PlasmaOrdered By: Mary White on 02-29-2024 ALT [Catalytic activity/Vol] Alanine aminotransferase [Enzymatic activity/volume] in Serum or Plasma 7 [facility] Albumin [Mass/volume] in Ser um or Plasma by Bromocresol green (BCG) dye binding methoOrdered By: Mary White on 02-29-2024 Albumin BCG dye [Mass/Vol] Albumin [Mass/volume] in Serum or Plasma by Bromocresol green (BCG) dye binding metho 3.5-5.7 [facility] Alkaline phosphatase [Enzyma tic activity/volume] in Serum or PlasmaOrdered By: Mary White on 02-29-2024 ALP [Catalytic activity/Vol] Alkaline phosphatase [Enzymatic activity/volume] in Serum or Plasma 34-104 [facility] Anti-dsDNA(DBL)Abon 02-29-20 24 Anti-dsDNA(DBL)Ab 2 [IU]/mL Normal 0-9 [facility] Comment on above: Order Comment: Reaso n for Exam Chronic diarrhea Reason for Exam Chronic fatigue;Myalgia, multiple sites;Paresthesia;Mild ane Result Comment: Nega tive <5 Equivocal 5 - 9 Positive >9 Performed By: #### C ELIAC, ADNA, VITB1, CCP, RA, LYME AB wRFX, WESTLEY CHOICE ####[facility] ,#### MG, JOSE, ESR, TSH3, T4F, CBC, [id number], FE and TIBC, LIPID, CMP, CRP ####[facility] [id number] [place] [id number] [facility] Aspartate aminotransferase [ Enzymatic activity/volume] in Serum or PlasmaOrdered By: Mary White on 02-29-2024 AST [Catalytic activity/Vol] Aspartate aminotransferase [Enzymatic activity/volume] in Serum or Plasma Low 13-39 [facility] Basophils Auto (Bld) [#/Vol] Ordered By: Mary White on 02-29-2024 Basophils (Bld) [#/Vol] Automated basoph il count 0.0-0.2 [facility] Basophils/100 WBC Auto (Bld) Ordered By: Mary White on 02-29-2024 Basophils/100 WBC (Bld) Automated basophil % . [facility] Bilirubin.total [Mass/volume ] in Serum or PlasmaOrdered By: Mary White on 02-29-2024 Bilirubin [Mass/Vol] Bilirubin.total [Mass/volume] in Serum or Plasma Low 0.3-1.0 [facility] Blood thiamine measurement ( moles/volume)Ordered By: Mary White on 02-29-2024 Thiamine (Bld) [Moles/Vol] Blood thiamine measurement (moles/volume) 66.5-200.0 [facility] Borrelia burgdorferi Ab [Int erpretation] in SerumOrdered By: Mary White on 02-29-2024 B. burgdorferi Ab (S) [Interp] Borrelia burgdorferi Ab [Interpretation] in Serum [facility] Borrelia burgdorferi IgG Ab [Presence] in Serum or Plasma by ImmunoassayOrdered By: Mary White on 02-29-2024 B. burgdorferi IgG IA Ql Borrelia burgdo rferi IgG Ab [Presence] in Serum or Plasma by Immunoassay [facility] Borrelia burgdorferi IgG+IgM Ab [Presence] in Serum by ImmunoassayOrdered By: Mary White on 02-29-2024 B. burgdorferi IgG+IgM IA Ql (S) Borrelia burgdorferi IgG+IgM Ab [Presence] in Serum by Immunoassay Negative [facility] Borrelia burgdorferi IgM Ab [Presence] in Serum or Plasma by ImmunoassayOrdered By: Mary White on 02-29-2024 B. burgdorferi IgM IA Ql Borrelia burgdo rferi IgM Ab [Presence] in Serum or Plasma by Immunoassay [facility] C reactive protein [Mass/vol ume] in Serum or PlasmaOrdered By: Mary White on 02-29-2024 CRP [Mass/Vol] C reactive protein [Mass/volume] in Serum or Plasma High 0.0-0.5 [facility] C-Reactive Proteinon 024 C-Reactive Protein 0.8 mg/dL High 0.0-0.5 [facility] Comment on above: Order Comment: Reaso n for Exam Benign essential hypertension Reason for Exam Chronic fatigue;Myalgia, multiple sites;Paresthesia;Mild ane Reason for Exam Hyperlipidemia Reason for Exam Benign essential hypertension;Chronic fatigue Performed By: #### C ELIAC, ADNA, VITB1, CCP, RA, LYME AB wRFX, WESTLEY CHOICE ####[facility] ,#### MG, JOSE, ESR, TSH3, T4F, CBC, [id number], FE and TIBC, LIPID, CMP, CRP ####[facility] [id number] [place] [id number] [facility] Calcium [Mass/volume] in Ser um or PlasmaOrdered By: Mary White on 02-29-2024 Calcium [Mass/Vol] Calcium [Mass/volume ] in Serum or Plasma 8.6-10.3 [facility] Carbon dioxide, total [Moles /volume] in Serum or PlasmaOrdered By: Mary White on 02-29-2024 CO2 [Moles/Vol] Carbon dioxide, tota l [Moles/volume] in Serum or Plasma 21.0-31.0 [facility] Celiacon 02-29-2024 Deamidated Gliadin Abs, IgA 5 Normal 0-19 [facility] Comment on above: Order Comment: Reaso n for Exam Chronic diarrhea Reason for Exam Chronic fatigue;Myalgia, multiple sites;Paresthesia;Mild ane Result Comment: Nega tive 0 - 19 Weak Positive 20 - 30 Moderate to Strong Positive >30 Performed By: #### C ELIAC, ADNA, VITB1, CCP, RA, LYME AB wRFX, WESTLEY CHOICE ####[facility] ,#### MG, JOSE, ESR, TSH3, T4F, CBC, [id number], FE and TIBC, LIPID, CMP, CRP ####[place] [id number] Deamidated Gliadin Abs, IgG 3 Normal 0-19 [facility] Comment on above: Order Comment: Reaso n for Exam Chronic diarrhea Reason for Exam Chronic fatigue;Myalgia, multiple sites;Paresthesia;Mild ane Result Comment: Nega tive 0 - 19 Weak Positive 20 - 30 Moderate to Strong Positive >30 Performed By: #### C ELIAC, ADNA, VITB1, CCP, RA, LYME AB wRFX, WESTLEY CHOICE ####[facility] ,#### MG, JOSE, ESR, TSH3, T4F, CBC, [id number], FE and TIBC, LIPID, CMP, CRP ####[address] Endomysial Antibody IgA Negative Normal Negative [facility] Comment on above: Order Comment: Reaso n for Exam Chronic diarrhea Reason for Exam Chronic fatigue;Myalgia, multiple sites;Paresthesia;Mild ane Performed By: #### C ELIAC, ADNA, VITB1, CCP, RA, LYME AB wRFX, WESTLEY CHOICE ####[facility] ,#### MG, JOSE, ESR, TSH3, T4F, CBC, [id number], FE and TIBC, LIPID, CMP, CRP ####[place] [id number] [address] Immunoglobulin A, Qn, Serum 132 mg/dL Normal 87-352 [facility] Comment on above: Order Comment: Reaso n for Exam Chronic diarrhea Reason for Exam Chronic fatigue;Myalgia, multiple sites;Paresthesia;Mild ane Result Comment: Perf ormed at: - [facility] [address] [id number] [employer]: Main Miranda PhD, Phone: [phone] Performed By: #### C ELIAC, ADNA, VITB1, CCP, RA, LYME AB wRFX, WESTLEY CHOICE ####[facility] ,#### MG, JOSE, ESR, TSH3, T4F, CBC, [id number], FE and TIBC, LIPID, CMP, CRP ####[place] [id number] [facility] T-Transglutaminase (tTG) IgA <2 Normal 0-3 [facility] Comment on above: Order Comment: Reaso n for Exam Chronic diarrhea Reason for Exam Chronic fatigue;Myalgia, multiple sites;Paresthesia;Mild ane Result Comment: Nega tive 0 - 3 Weak Positive 4 - 10 Positive >10 Tissue Transglutaminase (tTG) has been identified as the endomysial antigen. Studies have demonstr- ated that endomysial IgA antibodies have over 99% specificity for gluten sensitive enteropathy. Performed By: #### C ELIAC, ADNA, VITB1, CCP, RA, LYME AB wRFX, WESTLEY CHOICE ####[facility] ,#### MG, JOSE, ESR, TSH3, T4F, CBC, [id number], FE and TIBC, LIPID, CMP, CRP ####[address] T-Transglutaminase (tTG) IgG <2 Normal 0-5 [facility] Comment on above: Order Comment: Reaso n for Exam Chronic diarrhea Reason for Exam Chronic fatigue;Myalgia, multiple sites;Paresthesia;Mild ane Result Comment: Nega tive 0 - 5 Weak Positive 6 - 9 Positive >9 Performed By: #### C ELIAC, ADNA, VITB1, CCP, RA, LYME AB wRFX, WESTLEY CHOICE ####[facility] ,#### MG, JOSE, ESR, TSH3, T4F, CBC, [id number], FE and TIBC, LIPID, CMP, CRP ####[place] [id number] [place] Chloride [Moles/volume] in S jett or PlasmaOrdered By: Mary White on 02-29-2024 Chloride [Moles/Vol] Chloride [Moles/volume] in Serum or Plasma 98-107 [facility] Cholesterol [Mass/volume] in Serum or PlasmaOrdered By: Mary White on 02-29-2024 Cholesterol [Mass/Vol] Cholesterol [Mass/volume] in Serum or Plasma High 140-200 [facility] Cholesterol in HDL [Mass/vol ume] in Serum or PlasmaOrdered By: Mary White on 02-29-2024 Cholesterol in HDL [Mass/Vol] Serum or plasma high density lipoprotein (HDL) cholesterol measurement 23-92 [facility] Cholesterol in LDL Calc [Mas s/Vol]Ordered By: Mary White on 02-29-2024 Cholesterol in LDL [Mass/Vol] Cholesterol in LDL [Mass/volume] in Serum or Plasma by calculation 0-100 [facility] Cholesterol in VLDL Calc [Ma ss/Vol]Ordered By: Mary White on 02-29-2024 Cholesterol in VLDL [Mass/Vol] Cholesterol in VLDL [Mass/volume] in Serum or Plasma by calculation [facility] Complete Blood Count Auto Di ffon 02-29-2024 Basophils (Bld) [#/Vol] 0.0 10*3/uL Normal 0.0-0.2 [facility] Comment on above: Order Comment: Reaso n for Exam Benign essential hypertension Reason for Exam Chronic fatigue;Myalgia, multiple sites;Paresthesia;Mild ane Performed By: #### C ELIAC, ADNA, VITB1, CCP, RA, LYME AB wRFX, WESTLEY CHOICE ####[facility] ,#### MG, JOSE, ESR, TSH3, T4F, CBC, [id number], FE and TIBC, LIPID, CMP, CRP ####[facility] [id number] [place] [id number] [facility] Basophils/100 WBC (Bld) 0.5 % Normal . T [facility] Comment on above: Order Comment: Reaso n for Exam Benign essential hypertension Reason for Exam Chronic fatigue;Myalgia, multiple sites;Paresthesia;Mild ane Performed By: #### C ELIAC, ADNA, VITB1, CCP, RA, LYME AB wRFX, WESTLEY CHOICE ####[facility] ,#### MG, JOSE, ESR, TSH3, T4F, CBC, [id number], FE and TIBC, LIPID, CMP, CRP ####[address] Eosinophils (Bld) [#/Vol] 0.3 10*3/uL Normal 0.0-0.45 [facility] Comment on above: Order Comment: Reaso n for Exam Benign essential hypertension Reason for Exam Chronic fatigue;Myalgia, multiple sites;Paresthesia;Mild ane Performed By: #### C ELIAC, ADNA, VITB1, CCP, RA, LYME AB wRFX, WESTLEY CHOICE ####[facility] ,#### MG, JOSE, ESR, TSH3, T4F, CBC, [id number], FE and TIBC, LIPID, CMP, CRP ####[address] Eosinophils/100 WBC (Bld) 3.3 % Normal . [facility] Comment on above: Order Comment: Reaso n for Exam Benign essential hypertension Reason for Exam Chronic fatigue;Myalgia, multiple sites;Paresthesia;Mild ane Performed By: #### C ELIAC, ADNA, VITB1, CCP, RA, LYME AB wRFX, WESTLEY CHOICE ####[facility] ,#### MG, JOSE, ESR, TSH3, T4F, CBC, [id number], FE and TIBC, LIPID, CMP, CRP ####[address] Erythrocyte distribution width (RBC) [Ratio] 13.8 % Normal 11.9-15.3 [facility] Comment on above: Order Comment: Reaso n for Exam Benign essential hypertension Reason for Exam Chronic fatigue;Myalgia, multiple sites;Paresthesia;Mild ane Performed By: #### C ELIAC, ADNA, VITB1, CCP, RA, LYME AB wRFX, WESTLEY CHOICE ####[facility] ,#### MG, JOSE, ESR, TSH3, T4F, CBC, [id number], FE and TIBC, LIPID, CMP, CRP ####[address] Hematocrit (Bld) [Volume fraction] 35.1 % Normal 34.0-46.4 [facility] Comment on above: Order Comment: Reaso n for Exam Benign essential hypertension Reason for Exam Chronic fatigue;Myalgia, multiple sites;Paresthesia;Mild ane Performed By: #### C ELIAC, ADNA, VITB1, CCP, RA, LYME AB wRFX, WESTLEY CHOICE ####[facility] ,#### MG, JOSE, ESR, TSH3, T4F, CBC, [id number], FE and TIBC, LIPID, CMP, CRP ####[address] Hemoglobin (Bld) [Mass/Vol] 11.9 g/dL Normal 11.8-15.4 [facility] Comment on above: Order Comment: Reaso n for Exam Benign essential hypertension Reason for Exam Chronic fatigue;Myalgia, multiple sites;Paresthesia;Mild ane Performed By: #### C ELIAC, ADNA, VITB1, CCP, RA, LYME AB wRFX, WESTLEY CHOICE ####[facility] ,#### MG, JOSE, ESR, TSH3, T4F, CBC, [id number], FE and TIBC, LIPID, CMP, CRP ####[address] Lymphocytes (Bld) [#/Vol] 3.0 10*3/uL Normal 1.00-4.8 [facility] Comment on above: Order Comment: Reaso n for Exam Benign essential hypertension Reason for Exam Chronic fatigue;Myalgia, multiple sites;Paresthesia;Mild ane Performed By: #### C ELIAC, ADNA, VITB1, CCP, RA, LYME AB wRFX, WESTLEY CHOICE ####[facility] ,#### MG, JOSE, ESR, TSH3, T4F, CBC, [id number], FE and TIBC, LIPID, CMP, CRP ####[address] Lymphocytes/100 WBC (Bld) 37.8 % Normal . [facility] Comment on above: Order Comment: Reaso n for Exam Benign essential hypertension Reason for Exam Chronic fatigue;Myalgia, multiple sites;Paresthesia;Mild ane Performed By: #### C ELIAC, ADNA, VITB1, CCP, RA, LYME AB wRFX, WESTLEY CHOICE ####[facility] ,#### MG, JOSE, ESR, TSH3, T4F, CBC, [id number], FE and TIBC, LIPID, CMP, CRP ####[address] MCH (RBC) [Entitic mass] 29.5 pg Normal 24.7-34.3 [facility] Comment on above: Order Comment: Reaso n for Exam Benign essential hypertension Reason for Exam Chronic fatigue;Myalgia, multiple sites;Paresthesia;Mild ane Performed By: #### C ELIAC, ADNA, VITB1, CCP, RA, LYME AB wRFX, WESTLEY CHOICE ####[facility] ,#### MG, JOSE, ESR, TSH3, T4F, CBC, [id number], FE and TIBC, LIPID, CMP, CRP ####[address] MCV (RBC) [Entitic vol] 87.4 fL Normal 80-100 [facility] Comment on above: Order Comment: Reaso n for Exam Benign essential hypertension Reason for Exam Chronic fatigue;Myalgia, multiple sites;Paresthesia;Mild ane Performed By: #### C ELIAC, ADNA, VITB1, CCP, RA, LYME AB wRFX, WESTLEY CHOICE ####[facility] ,#### MG, JOSE, ESR, TSH3, T4F, CBC, [id number], FE and TIBC, LIPID, CMP, CRP ####[address] Mean Corpuscular HGB Conc 33.8 g/dL Normal 32.0-35.0 [facility] Comment on above: Order Comment: Reaso n for Exam Benign essential hypertension Reason for Exam Chronic fatigue;Myalgia, multiple sites;Paresthesia;Mild ane Performed By: #### C ELIAC, ADNA, VITB1, CCP, RA, LYME AB wRFX, WESTLEY CHOICE ####[facility] ,#### MG, JOSE, ESR, TSH3, T4F, CBC, [id number], FE and TIBC, LIPID, CMP, CRP ####[address] Monocytes (Bld) [#/Vol] 0.6 10*3/uL Normal 0.0-0.8 [facility] Comment on above: Order Comment: Reaso n for Exam Benign essential hypertension Reason for Exam Chronic fatigue;Myalgia, multiple sites;Paresthesia;Mild ane Performed By: #### C ELIAC, ADNA, VITB1, CCP, RA, LYME AB wRFX, WESTLEY CHOICE ####[facility] ,#### MG, JOSE, ESR, TSH3, T4F, CBC, [id number], FE and TIBC, LIPID, CMP, CRP ####[address] Monocytes/100 WBC (Bld) 7.8 % Normal . [facility] Comment on above: Order Comment: Reaso n for Exam Benign essential hypertension Reason for Exam Chronic fatigue;Myalgia, multiple sites;Paresthesia;Mild ane Performed By: #### C ELIAC, ADNA, VITB1, CCP, RA, LYME AB wRFX, WESTLEY CHOICE ####[facility] ,#### MG, JOSE, ESR, TSH3, T4F, CBC, [id number], FE and TIBC, LIPID, CMP, CRP ####[address] Neutrophils (Bld) [#/Vol] 4.0 10*3/uL Normal 1.8-7.7 [facility] Comment on above: Order Comment: Reaso n for Exam Benign essential hypertension Reason for Exam Chronic fatigue;Myalgia, multiple sites;Paresthesia;Mild ane Performed By: #### C ELIAC, ADNA, VITB1, CCP, RA, LYME AB wRFX, WESTLEY CHOICE ####[facility] ,#### MG, JOSE, ESR, TSH3, T4F, CBC, [id number], FE and TIBC, LIPID, CMP, CRP ####[place] [id number] [address] Neutrophils/100 WBC (Bld) 50.6 % Normal . [facility] Comment on above: Order Comment: Reaso n for Exam Benign essential hypertension Reason for Exam Chronic fatigue;Myalgia, multiple sites;Paresthesia;Mild ane Performed By: #### C ELIAC, ADNA, VITB1, CCP, RA, LYME AB wRFX, WESTLEY CHOICE ####[facility] ,#### MG, JOSE, ESR, TSH3, T4F, CBC, [id number], FE and TIBC, LIPID, CMP, CRP ####[address] NRBC% 0.1 /100{WBC} Normal 0-0.5 [facility] Comment on above: Order Comment: Reaso n for Exam Benign essential hypertension Reason for Exam Chronic fatigue;Myalgia, multiple sites;Paresthesia;Mild ane Performed By: #### C ELIAC, ADNA, VITB1, CCP, RA, LYME AB wRFX, WESTLEY CHOICE ####[facility] ,#### MG, JOSE, ESR, TSH3, T4F, CBC, [id number], FE and TIBC, LIPID, CMP, CRP ####[address] Platelet mean volume (Bld) [Entitic vol] 7.8 fL Normal 6.3-10.7 [facility] Comment on above: Order Comment: Reaso n for Exam Benign essential hypertension Reason for Exam Chronic fatigue;Myalgia, multiple sites;Paresthesia;Mild ane Performed By: #### C ELIAC, ADNA, VITB1, CCP, RA, LYME AB wRFX, WESTLEY CHOICE ####[facility] ,#### MG, JOSE, ESR, TSH3, T4F, CBC, [id number], FE and TIBC, LIPID, CMP, CRP ####[address] Platelets (Bld) [#/Vol] 505 10*3/uL High 150-450 [facility] Comment on above: Order Comment: Reaso n for Exam Benign essential hypertension Reason for Exam Chronic fatigue;Myalgia, multiple sites;Paresthesia;Mild ane Performed By: #### C ELIAC, ADNA, VITB1, CCP, RA, LYME AB wRFX, WESTLEY CHOICE ####[facility] ,#### MG, JOSE, ESR, TSH3, T4F, CBC, [id number], FE and TIBC, LIPID, CMP, CRP ####[address] RBC (Bld) [#/Vol] 4.02 10*6/uL Normal 3.60-5.00 [facility] Comment on above: Order Comment: Reaso n for Exam Benign essential hypertension Reason for Exam Chronic fatigue;Myalgia, multiple sites;Paresthesia;Mild ane Performed By: #### C ELIAC, ADNA, VITB1, CCP, RA, LYME AB wRFX, WESTLEY CHOICE ####[facility] ,#### MG, JOSE, ESR, TSH3, T4F, CBC, [id number], FE and TIBC, LIPID, CMP, CRP ####[address] WBC (Bld) [#/Vol] 7.9 10*3/uL Normal 3.8-11.6 [facility] Comment on above: Order Comment: Reaso n for Exam Benign essential hypertension Reason for Exam Chronic fatigue;Myalgia, multiple sites;Paresthesia;Mild ane Performed By: #### C ELIAC, ADNA, VITB1, CCP, RA, LYME AB wRFX, WESTLEY CHOICE ####[facility] ,#### MG, JOSE, ESR, TSH3, T4F, CBC, [id number], FE and TIBC, LIPID, CMP, CRP ####[place] [id number] [address] Comprehensive Metabolic Pane [facility] 02-29-2024 Albumin [Mass/Vol] 4.1 g/dL Normal 3.5-5.7 [facility] Comment on above: Order Comment: Reaso n for Exam Benign essential hypertension Reason for Exam Chronic fatigue;Myalgia, multiple sites;Paresthesia;Mild ane Reason for Exam Hyperlipidemia Reason for Exam Benign essential hypertension;Chronic fatigue Performed By: #### C ELIAC, ADNA, VITB1, CCP, RA, LYME AB wRFX, WESTLEY CHOICE ####[facility] ,#### MG, JOSE, ESR, TSH3, T4F, CBC, [id number], FE and TIBC, LIPID, CMP, CRP ####[place] [id number] [address] Albumin/Globulin [Mass ratio] 1.5 {ratio} Normal [facility] Comment on above: Order Comment: Reaso n for Exam Benign essential hypertension Reason for Exam Chronic fatigue;Myalgia, multiple sites;Paresthesia;Mild ane Reason for Exam Hyperlipidemia Reason for Exam Benign essential hypertension;Chronic fatigue Performed By: #### C ELIAC, ADNA, VITB1, CCP, RA, LYME AB wRFX, WESTLEY CHOICE ####[facility] ,#### MG, JOSE, ESR, TSH3, T4F, CBC, [id number], FE and TIBC, LIPID, CMP, CRP ####[address] ALP [Catalytic activity/Vol] 77 U/L Normal 34-104 [facility] Comment on above: Order Comment: Reaso n for Exam Benign essential hypertension Reason for Exam Chronic fatigue;Myalgia, multiple sites;Paresthesia;Mild ane Reason for Exam Hyperlipidemia Reason for Exam Benign essential hypertension;Chronic fatigue Performed By: #### C ELIAC, ADNA, VITB1, CCP, RA, LYME AB wRFX, WESTLEY CHOICE ####[facility] ,#### MG, JOSE, ESR, TSH3, T4F, CBC, [id number], FE and TIBC, LIPID, CMP, CRP ####[address] ALT [Catalytic activity/Vol] 14 U/L Normal 7-52 [facility] Comment on above: Order Comment: Reaso n for Exam Benign essential hypertension Reason for Exam Chronic fatigue;Myalgia, multiple sites;Paresthesia;Mild ane Reason for Exam Hyperlipidemia Reason for Exam Benign essential hypertension;Chronic fatigue Performed By: #### C ELIAC, ADNA, VITB1, CCP, RA, LYME AB wRFX, WESTLEY CHOICE ####[facility] ,#### MG, JOSE, ESR, TSH3, T4F, CBC, [id number], FE and TIBC, LIPID, CMP, CRP ####[address] Anion gap [Moles/Vol] 13.6 mmol/L Normal 6.0-15.0 [facility] Comment on above: Order Comment: Reaso n for Exam Benign essential hypertension Reason for Exam Chronic fatigue;Myalgia, multiple sites;Paresthesia;Mild ane Reason for Exam Hyperlipidemia Reason for Exam Benign essential hypertension;Chronic fatigue Performed By: #### C ELIAC, ADNA, VITB1, CCP, RA, LYME AB wRFX, WESTLEY CHOICE ####[facility] ,#### MG, JOSE, ESR, TSH3, T4F, CBC, [id number], FE and TIBC, LIPID, CMP, CRP ####[address] AST [Catalytic activity/Vol] 12 U/L Low 13-39 [facility] Comment on above: Order Comment: Reaso n for Exam Benign essential hypertension Reason for Exam Chronic fatigue;Myalgia, multiple sites;Paresthesia;Mild ane Reason for Exam Hyperlipidemia Reason for Exam Benign essential hypertension;Chronic fatigue Performed By: #### C ELIAC, ADNA, VITB1, CCP, RA, LYME AB wRFX, WESTLEY CHOICE ####[facility] ,#### MG, JOSE, ESR, TSH3, T4F, CBC, [id number], FE and TIBC, LIPID, CMP, CRP ####[address] Bilirubin [Mass/Vol] 0.2 mg/dL Low 0.3-1.0 [facility] Comment on above: Order Comment: Reaso n for Exam Benign essential hypertension Reason for Exam Chronic fatigue;Myalgia, multiple sites;Paresthesia;Mild ane Reason for Exam Hyperlipidemia Reason for Exam Benign essential hypertension;Chronic fatigue Performed By: #### C ELIAC, ADNA, VITB1, CCP, RA, LYME AB wRFX, WESTLEY CHOICE ####[facility] ,#### MG, JOSE, ESR, TSH3, T4F, CBC, [id number], FE and TIBC, LIPID, CMP, CRP ####[address] Calcium [Mass/Vol] 9.0 mg/dL Normal 8.6-10.3 [facility] Comment on above: Order Comment: Reaso n for Exam Benign essential hypertension Reason for Exam Chronic fatigue;Myalgia, multiple sites;Paresthesia;Mild ane Reason for Exam Hyperlipidemia Reason for Exam Benign essential hypertension;Chronic fatigue Performed By: #### C ELIAC, ADNA, VITB1, CCP, RA, LYME AB wRFX, WESTLEY CHOICE ####[facility] ,#### MG, JOSE, ESR, TSH3, T4F, CBC, [id number], FE and TIBC, LIPID, CMP, CRP ####[address] Chloride [Moles/Vol] 104 mmol/L Normal 98-107 [facility] Comment on above: Order Comment: Reaso n for Exam Benign essential hypertension Reason for Exam Chronic fatigue;Myalgia, multiple sites;Paresthesia;Mild ane Reason for Exam Hyperlipidemia Reason for Exam Benign essential hypertension;Chronic fatigue Performed By: #### C ELIAC, ADNA, VITB1, CCP, RA, LYME AB wRFX, WESTLEY CHOICE ####[facility] ,#### MG, JOSE, ESR, TSH3, T4F, CBC, [id number], FE and TIBC, LIPID, CMP, CRP ####[place] [id number] [address] CO2 [Moles/Vol] 24.7 mmol/L Normal 21.0-31.0 [facility] Comment on above: Order Comment: Reaso n for Exam Benign essential hypertension Reason for Exam Chronic fatigue;Myalgia, multiple sites;Paresthesia;Mild ane Reason for Exam Hyperlipidemia Reason for Exam Benign essential hypertension;Chronic fatigue Performed By: #### C ELIAC, ADNA, VITB1, CCP, RA, LYME AB wRFX, WESTLEY CHOICE ####[facility] ,#### MG, JOSE, ESR, TSH3, T4F, CBC, [id number], FE and TIBC, LIPID, CMP, CRP ####[address] Creatinine [Mass/Vol] 0.66 mg/dL Normal 0.60-1.20 [facility] Comment on above: Order Comment: Reaso n for Exam Benign essential hypertension Reason for Exam Chronic fatigue;Myalgia, multiple sites;Paresthesia;Mild ane Reason for Exam Hyperlipidemia Reason for Exam Benign essential hypertension;Chronic fatigue Performed By: #### C ELIAC, ADNA, VITB1, CCP, RA, LYME AB wRFX, WESTLEY CHOICE ####[facility] ,#### MG, JOSE, ESR, TSH3, T4F, CBC, [id number], FE and TIBC, LIPID, CMP, CRP ####[address] GFR/1.73 sq M.predicted MDRD (S/P/Bld) [Vol rate/Area] mL/min/{1.73_m2} Normal [facility] Comment on above: Order Comment: Reaso n for Exam Benign essential hypertension Reason for Exam Chronic fatigue;Myalgia, multiple sites;Paresthesia;Mild ane Reason for Exam Hyperlipidemia Reason for Exam Benign essential hypertension;Chronic fatigue Performed By: #### C ELIAC, ADNA, VITB1, CCP, RA, LYME AB wRFX, WESTLEY CHOICE ####[facility] ,#### MG, JOSE, ESR, TSH3, T4F, CBC, [id number], FE and TIBC, LIPID, CMP, CRP ####[facility] Globulin (S) [Mass/Vol] 2.7 g/dL Normal T [facility] Comment on above: Order Comment: Reaso n for Exam Benign essential hypertension Reason for Exam Chronic fatigue;Myalgia, multiple sites;Paresthesia;Mild ane Reason for Exam Hyperlipidemia Reason for Exam Benign essential hypertension;Chronic fatigue Performed By: #### C ELIAC, ADNA, VITB1, CCP, RA, LYME AB wRFX, WESTLEY CHOICE ####[facility] ,#### MG, JOSE, ESR, TSH3, T4F, CBC, [id number], FE and TIBC, LIPID, CMP, CRP ####[place] [address] [address] Glucose [Mass/Vol] 96 mg/dL Normal 70-100 [facility] Comment on above: Order Comment: Reaso n for Exam Benign essential hypertension Reason for Exam Chronic fatigue;Myalgia, multiple sites;Paresthesia;Mild ane Reason for Exam Hyperlipidemia Reason for Exam Benign essential hypertension;Chronic fatigue Result Comment: [place] Glucose Reference Range is dependent on time and content of last meal. Glucose of more than 200 mg/dL in a nonstressed, ambulatory subject supports the diagnosis of Diabetes Mellitus. ADA recommended reference range Performed By: #### C ELIAC, ADNA, VITB1, CCP, RA, LYME AB wRFX, WESTLEY CHOICE ####[facility] ,#### MG, JOSE, ESR, TSH3, T4F, CBC, [id number], FE and TIBC, LIPID, CMP, CRP ####[id number] [place] [address] [place] Potassium [Moles/Vol] 4.3 mmol/L Normal 3.5-5.1 [facility] Comment on above: Order Comment: Reaso n for Exam Benign essential hypertension Reason for Exam Chronic fatigue;Myalgia, multiple sites;Paresthesia;Mild ane Reason for Exam Hyperlipidemia Reason for Exam Benign essential hypertension;Chronic fatigue Performed By: #### C ELIAC, ADNA, VITB1, CCP, RA, LYME AB wRFX, WESTLEY CHOICE ####[facility] ,#### MG, JOSE, ESR, TSH3, T4F, CBC, [id number], FE and TIBC, LIPID, CMP, CRP ####[address] Protein [Mass/Vol] 6.8 g/dL Normal 6.4-8.9 [facility] Comment on above: Order Comment: Reaso n for Exam Benign essential hypertension Reason for Exam Chronic fatigue;Myalgia, multiple sites;Paresthesia;Mild ane Reason for Exam Hyperlipidemia Reason for Exam Benign essential hypertension;Chronic fatigue Performed By: #### C ELIAC, ADNA, VITB1, CCP, RA, LYME AB wRFX, WESTLEY CHOICE ####[facility] ,#### MG, JOSE, ESR, TSH3, T4F, CBC, [id number], FE and TIBC, LIPID, CMP, CRP ####[address] Sodium [Moles/Vol] 138 mmol/L Normal 136-145 [facility] Comment on above: Order Comment: Reaso n for Exam Benign essential hypertension Reason for Exam Chronic fatigue;Myalgia, multiple sites;Paresthesia;Mild ane Reason for Exam Hyperlipidemia Reason for Exam Benign essential hypertension;Chronic fatigue Performed By: #### C ELIAC, ADNA, VITB1, CCP, RA, LYME AB wRFX, WESTLEY CHOICE ####[facility] ,#### MG, JOSE, ESR, TSH3, T4F, CBC, [id number], FE and TIBC, LIPID, CMP, CRP ####[place] [address] [address] Urea nitrogen [Mass/Vol] 16 mg/dL Normal 7-25 [facility] Comment on above: Order Comment: Reaso n for Exam Benign essential hypertension Reason for Exam Chronic fatigue;Myalgia, multiple sites;Paresthesia;Mild ane Reason for Exam Hyperlipidemia Reason for Exam Benign essential hypertension;Chronic fatigue Performed By: #### C ELIAC, ADNA, VITB1, CCP, RA, LYME AB wRFX, WESTLEY CHOICE ####[facility] ,#### MG, JOSE, ESR, TSH3, T4F, CBC, [id number], FE and TIBC, LIPID, CMP, CRP ####[place] [id number] [address] Creatinine [Mass/volume] in Serum or PlasmaOrdered By: Mary White on 02-29-2024 Creatinine [Mass/Vol] Creatinine [Mass/volume] in Serum or Plasma 0.60-1.20 [facility] Cyclic Citrulliated Pep Abon 02-29-2024 Cyclic Citrulliated Pep Ab 7 Normal 0-19 [facility] Comment on above: Order Comment: Reaso n for Exam Chronic diarrhea Reason for Exam Chronic fatigue;Myalgia, multiple sites;Paresthesia;Mild ane Result Comment: Nega tive <20 Weak positive 20 - 39 Moderate positive 40 - 59 Strong positive >59 Performed at: - [facility] [id number] [employer]: Main Miranda PhD, Phone: [phone] Performed By: #### C ELIAC, ADNA, VITB1, CCP, RA, LYME AB wRFX, WESTLEY CHOICE ####[facility] ,#### MG, JOSE, ESR, TSH3, T4F, CBC, [id number], FE and TIBC, LIPID, CMP, CRP ####[facility] DNA double strand Ab [Units/ volume] in SerumOrdered By: Mary White on 11-30-2024 DNA double strand Ab Qn (S) DNA double strand Ab [Units/volume] in Serum 0-9 [facility] Endomysial IgA antibody assa yOrdered By: Mary White on 02-29-2024 Endomysial IgA antibody assay Negative Negative [facility] Eosinophils Auto (Bld) [#/Vo l]Ordered By: Mary White on 02-29-2024 Eosinophils (Bld) [#/Vol] Automated eosinophil count 0.0-0.45 [facility] Eosinophils/100 WBC Auto (Bl d)Ordered By: Mary White on 02-29-2024 Eosinophils/100 WBC (Bld) Automated eosinophil % . [facility] Erythrocyte Sedimentation Ra belgica 02-29-2024 ESR (Bld) [Velocity] 47 mm/h High 0-29 [facility] Comment on above: Order Comment: Reaso n for Exam Benign essential hypertension Reason for Exam Chronic fatigue;Myalgia, multiple sites;Paresthesia;Mild ane Result Comment: PERF ORMED BY:[facility] [place], [place] [id number] MEDICAL DIRECTORBINH MOREJON M.D. Performed By: #### C ELIAC, ADNA, VITB1, CCP, RA, LYME AB wRFX, WESTLEY CHOICE ####[facility] ,#### MG, JOSE, ESR, TSH3, T4F, CBC, [id number], FE and TIBC, LIPID, CMP, CRP ####[facility] [id number] [place] [address] [facility] Erythrocyte distribution wid th Auto (RBC) [Ratio]Ordered By: Mary White on 02-29-2024 Erythrocyte distribution width (RBC) [Ratio] Erythrocyte distribution width [Ratio] by Automated count 11.9-15.3 [facility] Erythrocyte sedimentation ra te by Photometric methodOrdered By: Mary White on 02-29-2024 ESR Photometric method (Bld) [Velocity] Erythrocyte sedimentation rate by Photometric method High 0-29 [facility] Ferritinon 02-29-2024 Ferritin [Mass/Vol] 9.8 ng/mL Low 11.0-306.8 [facility] Comment on above: Order Comment: Reaso n for Exam Benign essential hypertension Reason for Exam Chronic fatigue;Myalgia, multiple sites;Paresthesia;Mild ane Reason for Exam Hyperlipidemia Reason for Exam Benign essential hypertension;Chronic fatigue Performed By: #### C ELIAC, ADNA, VITB1, CCP, RA, LYME AB wRFX, WESTLEY CHOICE ####[facility] ,#### MG, JOSE, ESR, TSH3, T4F, CBC, [id number], FE and TIBC, LIPID, CMP, CRP ####[facility] [id number] Ferritin [Mass/volume] in Se rum or PlasmaOrdered By: Mary White on 02-29-2024 Ferritin [Mass/Vol] Ferritin [Mass/volum e] in Serum or Plasma Low 11.0-306.8 [facility] Folate [Mass/volume] in Seru m or PlasmaOrdered By: Mary White on 02-29-2024 Folate [Mass/Vol] Folate [Mass/volume] in Serum or Plasma >5.9 [facility] Free T4 (Free Thyroxine)on 04-30-2023 Free T4 [Mass/Vol] 0.87 ng/dL Normal 0.61-1.12 [facility] Comment on above: Order Comment: Reaso n for Exam Benign essential hypertension Reason for Exam Chronic fatigue;Myalgia, multiple sites;Paresthesia;Mild ane Reason for Exam Hyperlipidemia Reason for Exam Benign essential hypertension;Chronic fatigue Performed By: #### C ELIAC, ADNA, VITB1, CCP, RA, LYME AB wRFX, WESTLEY CHOICE ####[facility] ,#### MG, JOSE, ESR, TSH3, T4F, CBC, [id number], FE and TIBC, LIPID, CMP, CRP ####[facility] [id number] Globulin Calc (S) [Mass/Vol] Ordered By: Mary White on 02-29-2024 Globulin (S) [Mass/Vol] Serum globulin measurement by calculation (mass/volume) [facility] Glucose [Mass/volume] in Ser um or PlasmaOrdered By: Mary White on 02-29-2024 Glucose [Mass/Vol] Glucose [Mass/volume ] in Serum or Plasma 70-100 [facility] Hematocrit Auto (Bld) [Volum e fraction]Ordered By: Mary White on 02-29-2024 Hematocrit (Bld) [Volume fraction] Hematocrit [Volume Fraction] of Blood by Automated count 34.0-46.4 [facility] Hemoglobin [Mass/volume] in BloodOrdered By: Mary White on 02-29-2024 Hemoglobin (Bld) [Mass/Vol] Hemoglobin [Mass/volume] in Blood 11.8-15.4 [facility] Iron [Mass/volume] in Serum or PlasmaOrdered By: Mary White on 02-29-2024 Iron [Mass/Vol] Iron [Mass/volume] i n Serum or Plasma Low 50-212 [facility] Iron and TIBC Profileon 02-01 0 % Iron Saturation 9.5 % Low 20-50 [facility] Comment on above: Order Comment: Reaso n for Exam Benign essential hypertension Reason for Exam Chronic fatigue;Myalgia, multiple sites;Paresthesia;Mild ane Reason for Exam Hyperlipidemia Reason for Exam Benign essential hypertension;Chronic fatigue Performed By: #### C ELIAC, ADNA, VITB1, CCP, RA, LYME AB wRFX, WESTLEY CHOICE ####[facility] ,#### MG, JOSE, ESR, TSH3, T4F, CBC, [id number], FE and TIBC, LIPID, CMP, CRP ####[facility] [id number] [place] [address] [facility] Iron [Mass/Vol] 39 ug/dL Low 50-212 [facility] Comment on above: Order Comment: Reaso n for Exam Benign essential hypertension Reason for Exam Chronic fatigue;Myalgia, multiple sites;Paresthesia;Mild ane Reason for Exam Hyperlipidemia Reason for Exam Benign essential hypertension;Chronic fatigue Performed By: #### C ELIAC, ADNA, VITB1, CCP, RA, LYME AB wRFX, WESTLEY CHOICE ####[facility] ,#### MG, JOSE, ESR, TSH3, T4F, CBC, [id number], FE and TIBC, LIPID, CMP, CRP ####[address] Total Iron Binding Capacity 409 ug/dL Normal 255-450 [facility] Comment on above: Order Comment: Reaso n for Exam Benign essential hypertension Reason for Exam Chronic fatigue;Myalgia, multiple sites;Paresthesia;Mild ane Reason for Exam Hyperlipidemia Reason for Exam Benign essential hypertension;Chronic fatigue Performed By: #### C ELIAC, ADNA, VITB1, CCP, RA, LYME AB wRFX, WESTLEY CHOICE ####[facility] ,#### MG, JOSE, ESR, TSH3, T4F, CBC, [id number], FE and TIBC, LIPID, CMP, CRP ####[place] [id number] [facility] Transferrin [Mass/Vol] 292 mg/dL Normal 203-362 [facility] Comment on above: Order Comment: Reaso n for Exam Benign essential hypertension Reason for Exam Chronic fatigue;Myalgia, multiple sites;Paresthesia;Mild ane Reason for Exam Hyperlipidemia Reason for Exam Benign essential hypertension;Chronic fatigue Performed By: #### C ELIAC, ADNA, VITB1, CCP, RA, LYME AB wRFX, WESTLEY CHOICE ####[facility] ,#### MG, JOSE, ESR, TSH3, T4F, CBC, [id number], FE and TIBC, LIPID, CMP, CRP ####[place] [id number] [facility] Leukocytes [#/volume] correc jacki for nucleated erythrocytes in Blood by Automated counOrdered By: Mary White on 02-29-2024 WBC corrected for nucl RBC Auto (Bld) [#/Vol] Leukocytes [#/volume] corrected for nucleated erythrocytes in Blood by Automated coun 3.8-11.6 [facility] Lipid Panelon 02-29-2024 Cholesterol [Mass/Vol] 201 mg/dL High 140-200 [facility] Comment on above: Order Comment: Reaso n for Exam Benign essential hypertension Reason for Exam Chronic fatigue;Myalgia, multiple sites;Paresthesia;Mild ane Reason for Exam Hyperlipidemia Reason for Exam Benign essential hypertension;Chronic fatigue Result Comment: Chol less than 200 mg/dl low risk Chol 201-239 mg/dl borderline risk Chol 240 mg/dl and greater high risk Performed By: #### C ELIAC, ADNA, VITB1, CCP, RA, LYME AB wRFX, WESTLEY CHOICE ####[facility] ,#### MG, JOSE, ESR, TSH3, T4F, CBC, [id number], FE and TIBC, LIPID, CMP, CRP ####[facility] [place] [id number] [facility] Cholesterol in HDL [Mass/Vol] 40 mg/dL Normal 23-92 [facility] Comment on above: Order Comment: Reaso n for Exam Benign essential hypertension Reason for Exam Chronic fatigue;Myalgia, multiple sites;Paresthesia;Mild ane Reason for Exam Hyperlipidemia Reason for Exam Benign essential hypertension;Chronic fatigue Result Comment: HDL CHOL ATP-III CLASSIFICATION Cardiovascular Risk HDL > or equal to 60 mg/dL LOW HDL < 40 mg/dL HIGH Performed By: #### C ELIAC, ADNA, VITB1, CCP, RA, LYME AB wRFX, WESTLEY CHOICE ####[facility] ,#### MG, JOSE, ESR, TSH3, T4F, CBC, [id number], FE and TIBC, LIPID, CMP, CRP ####[facility] Cholesterol.total/Choles terol in HDL [Mass ratio] 5.0 {ratio} Normal <5.0 [facility] Comment on above: Order Comment: Reaso n for Exam Benign essential hypertension Reason for Exam Chronic fatigue;Myalgia, multiple sites;Paresthesia;Mild ane Reason for Exam Hyperlipidemia Reason for Exam Benign essential hypertension;Chronic fatigue Performed By: #### C ELIAC, ADNA, VITB1, CCP, RA, LYME AB wRFX, WESTLEY CHOICE ####[facility] ,#### MG, JOSE, ESR, TSH3, T4F, CBC, [id number], FE and TIBC, LIPID, CMP, CRP ####[place] [address] LDL Cholesterol,Calculated 95 mg/dL Normal 0-100 [facility] Comment on above: Order Comment: Reaso n for Exam Benign essential hypertension Reason for Exam Chronic fatigue;Myalgia, multiple sites;Paresthesia;Mild ane Reason for Exam Hyperlipidemia Reason for Exam Benign essential hypertension;Chronic fatigue Result Comment: LDL ATP III CLASSIFICATION LDL less than 100 mg/dL Optimal LDL 100-129 mg/dL Near or above optimal LDL 130-159 mg/dL Borderline high LDL 160-189 mg/dL High LDL greater than 189 mg/dL Very high Performed By: #### C ELIAC, ADNA, VITB1, CCP, RA, LYME AB wRFX, WESTLEY CHOICE ####[facility] ,#### MG, JOSE, ESR, TSH3, T4F, CBC, [id number], FE and TIBC, LIPID, CMP, CRP ####[place] [address] Triglyceride w/Reflex 328 mg/dL High 0-149 [facility] Comment on above: Order Comment: Reaso n for Exam Benign essential hypertension Reason for Exam Chronic fatigue;Myalgia, multiple sites;Paresthesia;Mild ane Reason for Exam Hyperlipidemia Reason for Exam Benign essential hypertension;Chronic fatigue Result Comment: TRIG ATP III CLASSIFICATION TRIG less than 150 mg/dL Normal TRIG 150-199 mg/dL Borderline high TRIG 200-500 mg/dL High TRIG greater than 500 mg/dL Very high Standard traceable to the Center for Disease Conrtrol and Prevention (CDC) test method. Performed By: #### C ELIAC, ADNA, VITB1, CCP, RA, LYME AB wRFX, WESTLEY CHOICE ####[facility] ,#### MG, JOSE, ESR, TSH3, T4F, CBC, [id number], FE and TIBC, LIPID, CMP, CRP ####[place] [address] VLDL CHOLESTEROL 65 mg/dL Normal [facility] Comment on above: Order Comment: Reaso n for Exam Benign essential hypertension Reason for Exam Chronic fatigue;Myalgia, multiple sites;Paresthesia;Mild ane Reason for Exam Hyperlipidemia Reason for Exam Benign essential hypertension;Chronic fatigue Performed By: #### C ELIAC, ADNA, VITB1, CCP, RA, LYME AB wRFX, WESTLEY CHOICE ####[facility] ,#### MG, JOSE, ESR, TSH3, T4F, CBC, [id number], FE and TIBC, LIPID, CMP, CRP ####[place] [address] Lyme, Total Ab with Reflexon 02-29-2024 Lyme Total Antibody Negative Normal Negative [facility] Comment on above: Order Comment: Reaso n for Exam Chronic diarrhea Reason for Exam Chronic fatigue;Myalgia, multiple sites;Paresthesia;Mild ane Result Comment: Lyme antibodies not detected. Reflex testing is not indicated. No laboratory evidence of infection with B. burgdorferi (Lyme disease). Negative results may occur in patients recently infected (less than or equal to 14 days) with B. burgdorferi. If recent infection is suspected, repeat testing on a new sample collected in 7 to 14 days is recommended. Performed at: - [facility] [id number] [employer] Operator: Main Miranda PhD, Phone: [phone] BY:[address] [id number] MEDICAL DIRECTORBINH MOREJON M.D. Performed By: #### C ELIAC, ADNA, VITB1, CCP, RA, LYME AB wRFX, WESTLEY CHOICE ####[facility] ,#### MG, JOSE, ESR, TSH3, T4F, CBC, [id number], FE and TIBC, LIPID, CMP, CRP ####[place] [address] Lymphocytes Auto (Bld) [#/Vo l]Ordered By: Mary White on 02-29-2024 Lymphocytes (Bld) [#/Vol] Lymphocytes [#/volume] in Blood by Automated count 1.00-4.8 [facility] Lymphocytes/100 WBC Auto (Bl d)Ordered By: Mary White on 02-29-2024 Lymphocytes/100 WBC (Bld) Lymphocytes/100 leukocytes in Blood by Automated count . [facility] MCH Auto (RBC) [Entitic mass ]Ordered By: Mary White on 02-29-2024 MCH (RBC) [Entitic mass] MCH [Entitic ma ss] by Automated count 24.7-34.3 [facility] MCHC Auto (RBC) [Mass/Vol]Or dered By: Mary White on 02-29-2024 MCHC (RBC) [Mass/Vol] MCHC [Mass/volume] by Automated count 32.0-35.0 [facility] MCV Auto (RBC) [Entitic vol] Ordered By: Mary White on 02-29-2024 MCV (RBC) [Entitic vol] MCV [Entitic vol ume] by Automated count 80-100 [facility] Magnesiumon 02-29-2024 Magnesium [Mass/Vol] 1.6 mg/dL Low 1.9-2.7 [facility] Comment on above: Order Comment: Reaso n for Exam Benign essential hypertension Reason for Exam Chronic fatigue;Myalgia, multiple sites;Paresthesia;Mild ane Reason for Exam Hyperlipidemia Reason for Exam Benign essential hypertension;Chronic fatigue Performed By: #### C ELIAC, ADNA, VITB1, CCP, RA, LYME AB wRFX, WESTLEY CHOICE ####[facility] ,#### MG, JOSE, ESR, TSH3, T4F, CBC, [id number], FE and TIBC, LIPID, CMP, CRP ####[facility] [id number] [place] [address] [facility] Magnesium [Mass/volume] in S jett or PlasmaOrdered By: Mary White on 02-29-2024 Magnesium [Mass/Vol] Magnesium [Mass/volume] in Serum or Plasma Low 1.9-2.7 [facility] Monocytes Auto (Bld) [#/Vol] Ordered By: Mary White on 02-29-2024 Monocytes (Bld) [#/Vol] Automated blood monocyte count 0.0-0.8 [facility] Monocytes/100 WBC Auto (Bld) Ordered By: Mary White on 02-29-2024 Monocytes/100 WBC (Bld) Automated monocyte % . [facility] Neutrophils Auto (Bld) [#/Vo l]Ordered By: Mary White on 02-29-2024 Neutrophils (Bld) [#/Vol] Neutrophils [#/volume] in Blood by Automated count 1.8-7.7 [facility] Neutrophils/100 WBC Auto (Bl d)Ordered By: Mary White on 02-29-2024 Neutrophils/100 WBC (Bld) Automated neutrophil % . [facility] No Panel InformationOrdered By: Mary White on 02-29-2024 > 60.0 mL/Min [facility] N/A [facility] Nucleated erythrocytes [Pres ence] in Blood by Automated countOrdered By: Mary White on 02-29-2024 Nucleated RBC Auto Ql (Bld) Nucleated erythrocytes [Presence] in Blood by Automated count 0-0.5 [facility] Platelet mean volume Auto (B ld) [Entitic vol]Ordered By: Mary White on 02-29-2024 Platelet mean volume (Bld) [Entitic vol] Platelet mean volume [Entitic volume] in Blood by Automated count 6.3-10.7 [facility] Platelets Auto (Bld) [#/Vol] Ordered By: Mary White on 02-29-2024 Platelets (Bld) [#/Vol] Platelets [#/vol ume] in Blood by Automated count High 150-450 [facility] Potassium [Moles/volume] in Serum or PlasmaOrdered By: Mary White on 02-29-2024 Potassium [Moles/Vol] Potassium [Moles/volume] in Serum or Plasma 3.5-5.1 [facility] Protein [Mass/volume] in Ser um or PlasmaOrdered By: Mary White on 02-29-2024 Protein [Mass/Vol] Protein [Mass/volume ] in Serum or Plasma 6.4-8.9 [facility] RBC Auto (Bld) [#/Vol]Ordere d By: Mary White on 02-29-2024 RBC (Bld) [#/Vol] Erythrocytes [#/volume] in Blood by Automated count 3.60-5.00 [facility] Rheumatoid Factoron 02-29-20 Rheumatoid Factor <10.0 Normal <14.0 [facility] Comment on above: Order Comment: Reaso n for Exam Chronic diarrhea Reason for Exam Chronic fatigue;Myalgia, multiple sites;Paresthesia;Mild ane Result Comment: Perf ormed at: CB - [facility] [place] [id number] [employer]: Main Miranda PhD, Phone: [phone] Performed By: #### C ELIAC, ADNA, VITB1, CCP, RA, LYME AB wRFX, WESTLEY CHOICE ####[facility] ,#### MG, JOSE, ESR, TSH3, T4F, CBC, [id number], FE and TIBC, LIPID, CMP, CRP ####[facility] [id number] Serum gliadin peptide IgA an tibody assay (units/volume)Ordered By: Mary White on 02-29-2024 Gliadin peptide IgA Qn (S) Serum gliadin peptide IgA antibody assay (units/volume) 0-19 [facility] Serum gliadin peptide IgG an tibody assay (units/volume)Ordered By: Mary White on 02-29-2024 Gliadin peptide IgG Qn (S) Serum gliadin peptide IgG antibody assay (units/volume) 0-19 [facility] Serum or plasma IgA measurem ent (mass/volume)Ordered By: Mary White on 02-29-2024 IgA [Mass/Vol] IgA [Mass/volume] in Serum or Plasma 87-352 [facility] Serum or plasma albumin/glob ulin mass ratioOrdered By: Mary White on 02-29-2024 Albumin/Globulin [Mass ratio] Serum or plasma albumin/globulin mass ratio [facility] Serum or plasma anion gap de terminationOrdered By: Mary White on 02-29-2024 Anion gap [Moles/Vol] Serum or plasma an ion gap determination 6.0-15.0 [facility] Serum or plasma cyclic adeno sine monophosphate measurement (moles/volume)Ordered By: Mary White on 02-29-2024 Adenosine monophosphate.cyclic [Moles/Vol] Serum or plasma cyclic adenosine monophosphate measurement (moles/volume) 0-19 [facility] Serum or plasma free cefurox mandi measurement (mass/volume)Ordered By: Mary White on 02-29-2024 Cefuroxime free [Mass/Vol] Serum or plasma free cefuroxime measurement (mass/volume) Negative [facility] Serum or plasma iron binding capacity measurement (mass/volume)Ordered By: Mary White on 02-29-2024 Iron binding capacity [Mass/Vol] Iron binding capacity [Mass/volume] in Serum or Plasma 255-450 [facility] Serum or plasma iron saturat ion measurement (mass fraction)Ordered By: Mary Wihte on 02-29-2024 Iron saturation [Mass fraction] Iron saturation [Mass Fraction] in Serum or Plasma Low 20-50 [facility] Serum or plasma rheumatoid f actor measurement (units/volume)Ordered By: Mary White on 02-29-2024 Rheumatoid factor Qn Serum or plasma rheumatoid factor measurement (units/volume) <14.0 [facility] Serum or plasma total choles terol/high density lipoprotein (HDL) cholesterol mass ratOrdered By: Mary White on 02-29-2024 Cholesterol.total/Choles terol in HDL [Mass ratio] Serum or plasma total cholesterol/high density lipoprotein (HDL) cholesterol mass rat <5.0 [facility] Serum tissue transglutaminas e (tTG) IgA antibody assay (units/volume)Ordered By: Mary White on 02-29-2024 tTG IgA Qn (S) Serum tissue transglutaminase (tTG) IgA antibody assay (units/volume) 0-3 [facility] Serum tissue transglutaminas e (tTG) IgG antibody assay (units/volume)Ordered By: Mary White on 02-29-2024 tTG IgG Qn (S) Serum tissue transglutaminase (tTG) IgG antibody assay (units/volume) 0-5 [facility] Sodium [Moles/volume] in Ser um or PlasmaOrdered By: Mary White on 02-29-2024 Sodium [Moles/Vol] Sodium [Moles/volume ] in Serum or Plasma 136-145 [facility] Thyroid Stimulating Hormoneo n 02-29-2024 TSH Qn 1.17 m[IU]/L Normal 0.45-5.33 [facility] Comment on above: Order Comment: Reaso n for Exam Benign essential hypertension Reason for Exam Chronic fatigue;Myalgia, multiple sites;Paresthesia;Mild ane Reason for Exam Hyperlipidemia Reason for Exam Benign essential hypertension;Chronic fatigue Result Comment: PERF ORMED BY:[facility], [place] [phone] MEDICAL DIRECTORBINH MOREJON M.D. Performed By: #### C ELIAC, ADNA, VITB1, CCP, RA, LYME AB wRFX, WESTLEY CHOICE ####[facility] ,#### MG, JOSE, ESR, TSH3, T4F, CBC, [id number], FE and TIBC, LIPID, CMP, CRP ####[facility] [place] [address] [place] Thyrotropin [Units/volume] i n Serum or PlasmaOrdered By: Mary White on 02-29-2024 TSH Qn Thyrotropin [Units/volume] in Serum or Plasma 0.45-5.33 [facility] Thyroxine (T4) free [Mass/vo lume] in Serum or PlasmaOrdered By: Mary White on 02-29-2024 Free T4 [Mass/Vol] Thyroxine (T4) free [Mass/volume] in Serum or Plasma 0.61-1.12 [facility] Transferrin [Mass/volume] in Serum or PlasmaOrdered By: Mary White on 02-29-2024 Transferrin [Mass/Vol] Transferrin [Mass/volume] in Serum or Plasma 203-362 [facility] Triglyceride [Mass/volume] i n Serum or PlasmaOrdered By: Mary White on 02-29-2024 Triglyceride [Mass/Vol] Triglyceride [Mass/volume] in Serum or Plasma High 0-149 [facility] Urea nitrogen [Mass/volume] in Serum or PlasmaOrdered By: Mary White on 02-29-2024 Urea nitrogen [Mass/Vol] Urea nitrogen [Mass/volume] in Serum or Plasma 7 [facility] Vit. B12/Folate Profileon Cobalamin (Vitamin B12) [Mass/Vol] 339 pg/mL Normal 180-914 [facility] Comment on above: Order Comment: Reaso n for Exam Benign essential hypertension Reason for Exam Chronic fatigue;Myalgia, multiple sites;Paresthesia;Mild ane Reason for Exam Hyperlipidemia Reason for Exam Benign essential hypertension;Chronic fatigue Performed By: #### C ELIAC, ADNA, VITB1, CCP, RA, LYME AB wRFX, WESTLEY CHOICE ####[facility] ,#### MG, JOSE, ESR, TSH3, T4F, CBC, [id number], FE and TIBC, LIPID, CMP, CRP ####[facility] [id number] Folate 8.6 ng/mL Normal >5.9 [facility] Comment on above: Order Comment: Reaso n for Exam Benign essential hypertension Reason for Exam Chronic fatigue;Myalgia, multiple sites;Paresthesia;Mild ane Reason for Exam Hyperlipidemia Reason for Exam Benign essential hypertension;Chronic fatigue Result Comment: Clare te reference range: >5.9 ng/ml The WHO technical consultation on folate and vitamin b12 deficiencies has determined that folate concentrations less than 4 ng/ml are considered deficient. Performed By: #### C ELIAC, ADNA, VITB1, CCP, RA, LYME AB wRFX, WESTLEY CHOICE ####[facility] ,#### MG, JOSE, ESR, TSH3, T4F, CBC, [id number], FE and TIBC, LIPID, CMP, CRP ####[facility] [id number] Vitamin B1 (Thiamine) Bloodo n 02-29-2024 Vitamin B1 (Thiamine) Blood 132.0 Normal 66.5-200.0 [facility] Comment on above: Order Comment: Reaso n for Exam Chronic fatigue;Myalgia, multiple sites;Paresthesia;Mild ane Result Comment: This test was developed and its performance characteristics determined by [facility]. It has not been cleared or approved by the Food and Drug Administration. Performed at: - [facility] [address], [place], [place] [id number] [employer]: Norman Lind MD, Phone: [phone] BY:[facility] [place], [place] [phone] MEDICAL DIRECTORMOMEGHA MOREJON M.D. Performed By: #### C ELIAC, ADNA, VITB1, CCP, RA, LYME AB wRFX, WESTLEY CHOICE ####[facility] ,#### MG, JOSE, ESR, TSH3, T4F, CBC, [id number], FE and TIBC, LIPID, CMP, CRP ####[facility] [id number] [place] [address] [facility] Vitamin B12 ser/plasOrdered By: Mary White on 02-29-2024 Cobalamin (Vitamin B12) [Mass/Vol] Vitamin B12 ser/plas 180-914 [facility] WBC Auto (Bld) [#/Vol]Ordere d By: Mary White on 02-29-2024 WBC (Bld) [#/Vol] Leukocytes [#/volume ] in Blood by Automated count 3.8-11.6 [facility] Appearance of UrineOrdered B y: John Cortes on 02-20-2024 Appearance (U) Urine appearance Clear [facility] Bacteria [Presence] in Urine by AutomatedOrdered By: John Cortes on 02-20-2024 Bacteria Auto Ql (U) Bacteria [Presence] in Urine by Automated None Seen [facility] Bilirubin Test strip Ql (U)O rdered By: John Cortes on 02-20-2024 Bilirubin Ql (U) Bilirubin.total [Presence] in Urine by Test strip Negative [facility] COVID Cepheid NegativeOrdere d By: John Cortes on 02-20-2024 SARS-CoV-2 (COVID-19) RNA EMI+probe Ql (Unsp spec) COVID Cepheid Negative [facility] COVID-19 / Flu A/B / RSV PCR on 02-20-2024 SARS-CoV-2 (COVID-19) RNA EMI+probe Ql (Unsp spec) Normal [facility] Comment on above: Performed By: #### C OVID19 FLU RSV, CEPHEID NEG ####[address] [address] [facility] Cepheid COVID PCR Negativeon 02-20-2024 SARS-CoV-2 (COVID-19) RNA EMI+probe Ql (Unsp spec) Negative Normal Negative [facility] Comment on above: Result Comment: This is a duplicate Cepheid Xpert Xpress CoV-2/Flu/RSV Plus RNA by RT-PCR result to be used for statistical tracking purpose only.PERFORMED BY:[address] [place], [place] [phone] MEDICAL DIRECTORBINH MOREJON M.D. Performed By: #### C OVID19 FLU RSV, CEPHEID NEG ####[place] [id number] [facility] Color Auto (U)Ordered By: Telly Cortes on 02-20-2024 Color (U) Color of Urine by Auto Yellow [facility] Dipstick and Microscopicon 1 04-21-2023 Appearance (U) Clear Normal Clear [facility] Comment on above: Order Comment: Name Collection Type:: Clean-Voided Midstream Performed By: #### A DDONUAPLUS ####[address] [address] [facility] Bacteria,Urine None Seen Normal None Seen [facility] Comment on above: Order Comment: Name Collection Type:: Clean-Voided Midstream Performed By: #### A DDONUAPLUS ####[address] [address] [facility] Bilirubin,Urine Negative Normal Negative [facility] Comment on above: Order Comment: Name Collection Type:: Clean-Voided Midstream Performed By: #### A DDONUAPLUS ####[address] [address] [facility] Color (U) Colorless Normal Yellow [facility] Comment on above: Order Comment: Name Collection Type:: Clean-Voided Midstream Performed By: #### A DDONUAPLUS ####[address] [address] [facility] Glucose Ql (U) Normal Normal Normal [facility] Comment on above: Order Comment: Name Collection Type:: Clean-Voided Midstream Performed By: #### A DDONUAPLUS ####[address] [address] [facility] Hyaline Casts,Urine None Normal 0-8 [facility] Comment on above: Order Comment: Name Collection Type:: Clean-Voided Midstream Result Comment: PERF ORMED BY:[place] [address] [place], [place] [phone] MEDICAL DIRECTORBINH MOREJON M.D. Performed By: #### A DDONUAPLUS ####[address] [address] [facility] Ketones Ql (U) Negative Normal Negative [facility] Comment on above: Order Comment: Name Collection Type:: Clean-Voided Midstream Performed By: #### A DDONUAPLUS ####[address] [address] [facility] Leukocyte esterase Test strip Ql (U) Negative Normal Negative [facility] Comment on above: Order Comment: Name Collection Type:: Clean-Voided Midstream Performed By: #### A DDONUAPLUS ####[address] [address] [facility] Nitrite,Urine Negative Normal Negative [facility] Comment on above: Order Comment: Name Collection Type:: Clean-Voided Midstream Performed By: #### A DDONUAPLUS ####[address] [address] [facility] Occult Blood,Urine 1+ High Negative [facility] Comment on above: Order Comment: Name Collection Type:: Clean-Voided Midstream Result Comment: PERF ORMED BY:[place] [address] [place] [place], [place] [phone] MEDICAL DIRECTORBINH MOREJON M.D. Performed By: #### A DDONUAPLUS ####[address] pH (U) 6.0 [pH] Normal 5.0-9.0 [facility] Comment on above: Order Comment: Name Collection Type:: Clean-Voided Midstream Performed By: #### A DDONUAPLUS ####[address] Protein,Urine Negative Normal Negative [facility] Comment on above: Order Comment: Name Collection Type:: Clean-Voided Midstream Performed By: #### A DDONUAPLUS ####[address] RBC,Urine 3 [HPF] Normal 0-4 [facility] Comment on above: Order Comment: Name Collection Type:: Clean-Voided Midstream Performed By: #### A DDONUAPLUS ####[address] Specificy [place],Urine 1.005 Normal 1.001-1.030 [facility] Comment on above: Order Comment: Name Collection Type:: Clean-Voided Midstream Performed By: #### A DDONUAPLUS ####[address] Squamous Epithelial Cell,Urine 1 [HPF] Normal 0-2 [facility] Comment on above: Order Comment: Name Collection Type:: Clean-Voided Midstream Performed By: #### A DDONUAPLUS ####[address] Urobilinogen,Urine Normal Normal Normal [facility] Comment on above: Order Comment: Name Collection Type:: Clean-Voided Midstream Performed By: #### A DDONUAPLUS ####[address] WBC,Urine 1 [HPF] Normal 0-4 [facility] Comment on above: Order Comment: Name Collection Type:: Clean-Voided Midstream Performed By: #### A DDONUAPLUS ####[facility] [address] [place] [address] [facility] Epithelial cells.squamous [# /area] in Urine sediment by Automated countOrdered By: John Cortes on 02-20-2024 Epithelial cells.squamous Auto (Urine sed) [#/Area] Epithelial cells.squamous [#/area] in Urine sediment by Automated count 0-2 [facility] Erythrocytes [#/area] in Uri ne sediment by Automated countOrdered By: John Cortes on 02-20-2024 RBC Auto (Urine sed) [#/Area] Erythrocytes [#/area] in Urine sediment by Automated count 0-4 [facility] Glucose [Mass/volume] in Uri ne by Test stripOrdered By: John Cortes on 02-20-2024 Glucose Test strip (U) [Mass/Vol] Glucose [Mass/volume] in Urine by Test strip Normal [facility] Hemoglobin Test strip Ql (U) Ordered By: John Cortes on 02-20-2024 Hemoglobin Ql (U) Hemoglobin [Presence ] in Urine by Test strip High Negative [facility] Hyaline casts [#/area] in Ur ine sediment by Automated countOrdered By: John Cortes on 02-20-2024 Hyaline casts Auto (Urine sed) [#/Area] Hyaline casts [#/area] in Urine sediment by Automated count 0-8 [facility] Ketones Test strip Ql (U)Ord ered By: John Cortes on 02-20-2024 Ketones Ql (U) Ketones [Presence] i n Urine by Test strip Negative [facility] Leukocyte esterase [Presence ] in Urine by Test stripOrdered By: John Cortes on 02-20-2024 Leukocyte esterase Test strip Ql (U) Leukocyte esterase [Presence] in Urine by Test strip Negative [facility] Leukocytes [#/area] in Urine sediment by Automated countOrdered By: John Cortes on 02-20-2024 WBC Auto (Urine sed) [#/Area] Leukocytes [#/area] in Urine sediment by Automated count 0-4 [facility] Nitrite Test strip Ql (U)Ord ered By: John Cortes on 02-20-2024 Nitrite Ql (U) Nitrite [Presence] i n Urine by Test strip Negative [facility] Protein Test strip (U) [Mass /Vol]Ordered By: John Cortes on 02-20-2024 Protein (U) [Mass/Vol] Protein [Mass/vol ume] in Urine by Test strip Negative [facility] Specific gravity Test strip (U) [Rel density]Ordered By: John Cortes on 02-20-2024 Specific gravity (U) [Rel density] Specific gravity of Urine by Test strip 1.001-1.030 [facility] Urobilinogen Test strip (U) [Mass/Vol]Ordered By: John Cortes on 02-20-2024 Urobilinogen (U) [Mass/Vol] Urobilinogen [Mass/volume] in Urine by Test strip Normal [facility] XR chest 2V*on 02-20-2024 XR chest 2V* Normal [facility] pH Test strip (U)Ordered By: John Cortes on 02-20-2024 pH (U) pH of Urine by Test strip 5.0-9.0 [facility] X-ray reportOrdered By: Radha Soto on 02-15-2024 Study report [facility] Work Phone: XR chest 2V*on 02-15-2024 XR chest 2V* Normal [facility] Alanine aminotransferase [En zymatic activity/volume] in Serum or PlasmaOrdered By: John Cortes on 02-10-2024 ALT [Catalytic activity/Vol] Alanine aminotransferase [Enzymatic activity/volume] in Serum or Plasma 7-52 [facility] Albumin [Mass/volume] in Ser um or Plasma by Bromocresol green (BCG) dye binding methoOrdered By: John Cortes on 02-10-2024 Albumin BCG dye [Mass/Vol] Albumin [Mass/volume] in Serum or Plasma by Bromocresol green (BCG) dye binding metho 3.5-5.7 [facility] Alkaline phosphatase [Enzyma tic activity/volume] in Serum or PlasmaOrdered By: John Cortes on 02-10-2024 ALP [Catalytic activity/Vol] Alkaline phosphatase [Enzymatic activity/volume] in Serum or Plasma 34-104 [facility] Appearance of UrineOrdered B y: John Cortes on 02-10-2024 Appearance (U) Urine appearance Clear [facility] Aspartate aminotransferase [ Enzymatic activity/volume] in Serum or PlasmaOrdered By: John Cortes on 02-10-2024 AST [Catalytic activity/Vol] Aspartate aminotransferase [Enzymatic activity/volume] in Serum or Plasma 13-39 [facility] Bacteria [Presence] in Urine by AutomatedOrdered By: John Cortes on 02-10-2024 Bacteria Auto Ql (U) Bacteria [Presence] in Urine by Automated None Seen [facility] Basophils Auto (Bld) [#/Vol] Ordered By: John Cortes on 02-10-2024 Basophils (Bld) [#/Vol] Automated basoph il count 0.0-0.2 [facility] Basophils/100 WBC Auto (Bld) Ordered By: John Cortes on 02-10-2024 Basophils/100 WBC (Bld) Automated basophil % . [facility] Bilirubin Test strip Ql (U)O rdered By: John Cortes on 02-10-2024 Bilirubin Ql (U) Bilirubin.total [Presence] in Urine by Test strip Negative [facility] Bilirubin.total [Mass/volume ] in Serum or PlasmaOrdered By: John Cortes on 02-10-2024 Bilirubin [Mass/Vol] Bilirubin.total [Mass/volume] in Serum or Plasma Low 0.3-1.0 [facility] Calcium [Mass/volume] in Ser um or PlasmaOrdered By: John Cortes 02-10-2024 Calcium [Mass/Vol] Calcium [Mass/volume ] in Serum or Plasma 8.6-10.3 [facility] Carbon dioxide, total [Moles /volume] in Serum or PlasmaOrdered By: John Cortes 02-10-2024 CO2 [Moles/Vol] Carbon dioxide, tota l [Moles/volume] in Serum or Plasma 21.0-31.0 [facility] Chloride [Moles/volume] in S jett or PlasmaOrdered By: John Cortes on 02-10-2024 Chloride [Moles/Vol] Chloride [Moles/volume] in Serum or Plasma 98-107 [facility] Color Auto (U)Ordered By: Telly Cortes on 02-10-2024 Color (U) Color of Urine by Auto Yellow [facility] Count Auto Di ffon 02-10-2024 Basophils (Bld) [#/Vol] 0.1 10*3/uL Normal 0.0-0.2 [facility] Comment on above: Result Comment: PERF ORMED BY:[address] [place], [place] [phone] MEDICAL DIRECTORIVAN NUÑEZ M.D. Performed By: #### C MP, CBC, LIPASE ####[address] Basophils/100 WBC (Bld) 1.0 % Normal . [facility] Comment on above: Performed By: #### C MP, CBC, LIPASE ####[address] Eosinophils (Bld) [#/Vol] 0.3 10*3/uL Normal 0.0-0.45 [facility] Comment on above: Performed By: #### C MP, CBC, LIPASE ####[address] Eosinophils/100 WBC (Bld) 3.9 % Normal . [facility] Comment on above: Performed By: #### C MP, CBC, LIPASE ####[address] Erythrocyte distribution width (RBC) [Ratio] 13.6 % Normal 11.9-15.3 [facility] Comment on above: Performed By: #### C MP, CBC, LIPASE ####[address] Hematocrit (Bld) [Volume fraction] 39.2 % Normal 34.0-46.4 [facility] Comment on above: Performed By: #### C MP, CBC, LIPASE ####[address] Hemoglobin (Bld) [Mass/Vol] 13.4 g/dL Normal 11.8-15.4 [facility] Comment on above: Performed By: #### C MP, CBC, LIPASE ####[address] Lymphocytes (Bld) [#/Vol] 3.2 10*3/uL Normal 1.00-4.8 [facility] Comment on above: Performed By: #### C MP, CBC, LIPASE ####[address] Lymphocytes/100 WBC (Bld) 36.7 % Normal . [facility] Comment on above: Performed By: #### C MP, CBC, LIPASE ####[address] MCH (RBC) [Entitic mass] 30.3 pg Normal 24.7-34.3 [facility] Comment on above: Performed By: #### C MP, CBC, LIPASE ####[address] MCV (RBC) [Entitic vol] 88.4 fL Normal 80-100 [facility] Comment on above: Performed By: #### C MP, CBC, LIPASE ####[address] Mean Corpuscular HGB Conc 34.3 g/dL Normal 32.0-35.0 [facility] Comment on above: Performed By: #### C MP, CBC, LIPASE ####[address] Monocytes (Bld) [#/Vol] 0.5 10*3/uL Normal 0.0-0.8 [facility] Comment on above: Performed By: #### C MP, CBC, LIPASE ####[address] Monocytes/100 WBC (Bld) 20.32 % High 0.00-20.00 [facility] Comment on above: Result Comment: For adults in ED, MDW > 20.0 may be associated with a higher risk of sepsis during the first 12 hrs of hospital admission Performed By: #### C MP, CBC, LIPASE ####[address] Monocytes/100 WBC (Bld) 5.7 % Normal . [facility] Comment on above: Performed By: #### C MP, CBC, LIPASE ####[address] Neutrophils (Bld) [#/Vol] 4.5 10*3/uL Normal 1.8-7.7 [facility] Comment on above: Performed By: #### C MP, CBC, LIPASE ####[address] Neutrophils/100 WBC (Bld) 52.7 % Normal . [facility] Comment on above: Performed By: #### C MP, CBC, LIPASE ####[address] NRBC% 0.1 /100{WBC} Normal 0-0.5 [facility] Comment on above: Performed By: #### C MP, CBC, LIPASE ####[address] Platelet mean volume (Bld) [Entitic vol] 8.3 fL Normal 6.3-10.7 [facility] Comment on above: Performed By: #### C MP, CBC, LIPASE ####[address] Platelets (Bld) [#/Vol] 395 10*3/uL Normal 150-450 [facility] Comment on above: Performed By: #### C MP, CBC, LIPASE ####[address] RBC (Bld) [#/Vol] 4.44 10*6/uL Normal 3.60-5.00 [facility] Comment on above: Performed By: #### C MP, CBC, LIPASE ####[address] WBC (Bld) [#/Vol] 8.6 10*3/uL Normal 3.8-11.6 [facility] Comment on above: Performed By: #### C MP, CBC, LIPASE ####[address] Comprehensive Metabolic Pane cony 02-10-2024 Albumin [Mass/Vol] 4.5 g/dL Normal 3.5-5.7 [facility] Comment on above: Performed By: #### C MP, CBC, LIPASE ####[address] Albumin/Globulin [Mass ratio] 1.5 {ratio} Normal [facility] Comment on above: Performed By: #### C MP, CBC, LIPASE ####[address] ALP [Catalytic activity/Vol] 90 U/L Normal 34-104 [facility] Comment on above: Performed By: #### C MP, CBC, LIPASE ####[address] ALT [Catalytic activity/Vol] 16 U/L Normal 7-52 [facility] Comment on above: Performed By: #### C MP, CBC, LIPASE ####[address] Anion gap [Moles/Vol] 14.7 mmol/L Normal 6.0-15.0 [facility] Comment on above: Performed By: #### C MP, CBC, LIPASE ####[address] AST [Catalytic activity/Vol] 16 U/L Normal 13-39 [facility] Comment on above: Performed By: #### C MP, CBC, LIPASE ####[address] Bilirubin [Mass/Vol] 0.2 mg/dL Low 0.3-1.0 [facility] Comment on above: Performed By: #### C MP, CBC, LIPASE ####[address] Calcium [Mass/Vol] 9.4 mg/dL Normal 8.6-10.3 [facility] Comment on above: Performed By: #### C MP, CBC, LIPASE ####[address] Chloride [Moles/Vol] 105 mmol/L Normal 98-107 [facility] Comment on above: Performed By: #### C MP, CBC, LIPASE ####[address] CO2 [Moles/Vol] 22.0 mmol/L Normal 21.0-31.0 [facility] Comment on above: Performed By: #### C MP, CBC, LIPASE ####[address] Creatinine [Mass/Vol] 0.69 mg/dL Normal 0.60-1.20 [facility] Comment on above: Performed By: #### C MP, CBC, LIPASE ####[address] Creatinine Clr Calc Pharmacy 103.17 Normal [facility] Comment on above: Performed By: #### C MP, CBC, LIPASE ####[address] GFR/1.73 sq M.predicted MDRD (S/P/Bld) [Vol rate/Area] mL/min/{1.73_m2} Normal [facility] Comment on above: Performed By: #### C MP, CBC, LIPASE ####[address] Globulin (S) [Mass/Vol] 3.0 g/dL Normal T [facility] Comment on above: Performed By: #### C MP, CBC, LIPASE ####[address] Glucose [Mass/Vol] 120 mg/dL High 70-100 [facility] Comment on above: Result Comment: [place] Glucose Reference Range is dependent on time and content of last meal. Glucose of more than 200 mg/dL in a nonstressed, ambulatory subject supports the diagnosis of Diabetes Mellitus. ADA recommended reference range Performed By: #### C MP, CBC, LIPASE ####[address] Potassium [Moles/Vol] 3.7 mmol/L Normal 3.5-5.1 [facility] Comment on above: Result Comment: Hemo lysis is present at a level that could interfere with the result. Contact lab if redraw is required Performed By: #### C MP, CBC, LIPASE ####[facility] [place] [id number] [facility] Protein [Mass/Vol] 7.5 g/dL Normal 6.4-8.9 [facility] Comment on above: Performed By: #### C MP, CBC, LIPASE ####[place] [address] Sodium [Moles/Vol] 138 mmol/L Normal 136-145 [facility] Comment on above: Performed By: #### C MP, CBC, LIPASE ####[place] [address] Urea nitrogen [Mass/Vol] 16 mg/dL Normal 7-25 [facility] Comment on above: Performed By: #### C MP, CBC, LIPASE ####[place] [address] [place] [id number] [facility] Creatinine [Mass/volume] in Serum or PlasmaOrdered By: John Cortes on 02-10-2024 Creatinine [Mass/Vol] Creatinine [Mass/volume] in Serum or Plasma 0.60-1.20 [facility] Dipstick and Microscopicon 1 04-11-2023 Appearance (U) Clear Normal Clear [facility] Comment on above: Order Comment: Name Collection Type:: Clean-Voided Midstream Performed By: #### A DDONUAPLUS ####[place] [address] [place] [id number] [facility] Bacteria,Urine None Seen Normal None Seen [facility] Comment on above: Order Comment: Name Collection Type:: Clean-Voided Midstream Performed By: #### A DDONUAPLUS ####[place] [address] [place] [id number] [facility] Bilirubin,Urine Negative Normal Negative [facility] Comment on above: Order Comment: Name Collection Type:: Clean-Voided Midstream Performed By: #### A DDONUAPLUS ####[place] [address] [place] [address] [facility] Color (U) Colorless Normal Yellow [facility] Comment on above: Order Comment: Name Collection Type:: Clean-Voided Midstream Performed By: #### A DDONUAPLUS ####[place] [address] [place] [address] [facility] Glucose Ql (U) Normal Normal Normal [facility] Comment on above: Order Comment: Name Collection Type:: Clean-Voided Midstream Performed By: #### A DDONUAPLUS ####[address] [address] [place] Hyaline Casts,Urine None Normal 0-8 [facility] Comment on above: Order Comment: Name Collection Type:: Clean-Voided Midstream Result Comment: PERF ORMED BY:[address] [place], [place] [id number] MEDICAL DIRECTORIVAN NUÑEZ M.D. Performed By: #### A DDONUAPLUS ####[address] [address] [facility] Ketones Ql (U) Negative Normal Negative [facility] Comment on above: Order Comment: Name Collection Type:: Clean-Voided Midstream Performed By: #### A DDONUAPLUS ####[address] [address] [facility] Leukocyte esterase Test strip Ql (U) Negative Normal Negative [facility] Comment on above: Order Comment: Name Collection Type:: Clean-Voided Midstream Performed By: #### A DDONUAPLUS ####[address] [address] [place] Nitrite,Urine Negative Normal Negative [facility] Comment on above: Order Comment: Name Collection Type:: Clean-Voided Midstream Performed By: #### A DDONUAPLUS ####[address] [address] [facility] Occult Blood,Urine 1+ High Negative [facility] Comment on above: Order Comment: Name Collection Type:: Clean-Voided Midstream Result Comment: PERF ORMED BY:[address] [place] [id number] MEDICAL DIRECTORIVAN NUÑEZ M.D. Performed By: #### A DDONUAPLUS ####[address] [address] [facility] pH (U) 5.0 [pH] Normal 5.0-9.0 [facility] Comment on above: Order Comment: Name Collection Type:: Clean-Voided Midstream Performed By: #### A DDONUAPLUS ####[address] [address] [facility] Protein,Urine Negative Normal Negative [facility] Comment on above: Order Comment: Name Collection Type:: Clean-Voided Midstream Performed By: #### A DDONUAPLUS ####[address] [address] [facility] RBC,Urine 1 [HPF] Normal 0-4 [facility] Comment on above: Order Comment: Name Collection Type:: Clean-Voided Midstream Performed By: #### A DDONUAPLUS ####[address] [address] [facility] Specificy [place],Urine 1.014 Normal 1.001-1.030 [facility] Comment on above: Order Comment: Name Collection Type:: Clean-Voided Midstream Performed By: #### A DDONUAPLUS ####[address] [address] [facility] Urobilinogen,Urine Normal Normal Normal [facility] Comment on above: Order Comment: Name Collection Type:: Clean-Voided Midstream Performed By: #### A DDONUAPLUS ####[address] [address] [facility] WBC,Urine 1 [HPF] Normal 0-4 [facility] Comment on above: Order Comment: Name Collection Type:: Clean-Voided Midstream Performed By: #### A DDONUAPLUS ####[address] [address] [facility] ECG 12 lead ECGon 02-10-2024 ECG 12 lead ECG Normal [facility] Eosinophils Auto (Bld) [#/Vo l]Ordered By: John Cortes on 02-10-2024 Eosinophils (Bld) [#/Vol] Automated eosinophil count 0.0-0.45 [facility] Eosinophils/100 WBC Auto (Bl d)Ordered By: John Cortes on 02-10-2024 Eosinophils/100 WBC (Bld) Automated eosinophil % . [facility] Epithelial cells.squamous [# /area] in Urine sediment by Automated countOrdered By: John Cortes on 02-10-2024 Epithelial cells.squamous Auto (Urine sed) [#/Area] Epithelial cells.squamous [#/area] in Urine sediment by Automated count [facility] Erythrocyte distribution wid th Auto (RBC) [Ratio]Ordered By: John Cortes on 02-10-2024 Erythrocyte distribution width (RBC) [Ratio] Erythrocyte distribution width [Ratio] by Automated count 11.9-15.3 [facility] Erythrocytes [#/area] in Uri ne sediment by Automated countOrdered By: John Cortes on 02-10-2024 RBC Auto (Urine sed) [#/Area] Erythrocytes [#/area] in Urine sediment by Automated count 0-4 [facility] Globulin Calc (S) [Mass/Vol] Ordered By: John Cortes on 02-10-2024 Globulin (S) [Mass/Vol] Serum globulin measurement by calculation (mass/volume) [facility] Glucose [Mass/volume] in Ser um or PlasmaOrdered By: John Cortes 02-10-2024 Glucose [Mass/Vol] Glucose [Mass/volume ] in Serum or Plasma High 70-100 [facility] Glucose [Mass/volume] in Uri ne by Test stripOrdered By: John Cortes 02-10-2024 Glucose Test strip (U) [Mass/Vol] Glucose [Mass/volume] in Urine by Test strip Normal [facility] Hematocrit Auto (Bld) [Volum e fraction]Ordered By: John Cortes on 02-10-2024 Hematocrit (Bld) [Volume fraction] Hematocrit [Volume Fraction] of Blood by Automated count 34.0-46.4 [facility] Hemoglobin Test strip Ql (U) Ordered By: John Cortes on 02-10-2024 Hemoglobin Ql (U) Hemoglobin [Presence ] in Urine by Test strip High Negative [facility] Hemoglobin [Mass/volume] in BloodOrdered By: John Cortes on 02-10-2024 Hemoglobin (Bld) [Mass/Vol] Hemoglobin [Mass/volume] in Blood 11.8-15.4 [facility] Hyaline casts [#/area] in Ur ine sediment by Automated countOrdered By: John Cortes on 02-10-2024 Hyaline casts Auto (Urine sed) [#/Area] Hyaline casts [#/area] in Urine sediment by Automated count 0-8 [facility] Ketones Test strip Ql (U)Ord ered By: John Cortes on 02-10-2024 Ketones Ql (U) Ketones [Presence] i n Urine by Test strip Negative [facility] Leukocyte esterase [Presence ] in Urine by Test stripOrdered By: John Cortes on 02-10-2024 Leukocyte esterase Test strip Ql (U) Leukocyte esterase [Presence] in Urine by Test strip Negative [facility] Leukocytes [#/area] in Urine sediment by Automated countOrdered By: John Cortes on 02-10-2024 WBC Auto (Urine sed) [#/Area] Leukocytes [#/area] in Urine sediment by Automated count 0-4 [facility] Leukocytes [#/volume] correc jacki for nucleated erythrocytes in Blood by Automated counOrdered By: John Cortes on 02-10-2024 WBC corrected for nucl RBC Auto (Bld) [#/Vol] Leukocytes [#/volume] corrected for nucleated erythrocytes in Blood by Automated coun 3.8-11.6 [facility] Lipaseon 02-10-2024 Lipase [Catalytic activity/Vol] 117.0 U/L High 11.0-82.0 [facility] Comment on above: Result Comment: PERF ORMED BY:[facility] [place], [place] [phone] MEDICAL DIRECTORIVAN NUÑEZ M.D. Performed By: #### C MP, CBC, LIPASE ####[facility] [id number] [place] [address] [facility] Lipase [Enzymatic activity/v olume] in Serum or PlasmaOrdered By: John Cortes on 02-10-2024 Lipase [Catalytic activity/Vol] Lipase [Enzymatic activity/volume] in Serum or Plasma High 11.0-82.0 [facility] Lymphocytes Auto (Bld) [#/Vo l]Ordered By: John Cortes on 02-10-2024 Lymphocytes (Bld) [#/Vol] Lymphocytes [#/volume] in Blood by Automated count 1.00-4.8 [facility] Lymphocytes/100 WBC Auto (Bl d)Ordered By: John Cortes on 02-10-2024 Lymphocytes/100 WBC (Bld) Lymphocytes/100 leukocytes in Blood by Automated count . [facility] MCH Auto (RBC) [Entitic mass ]Ordered By: John Cortes on 02-10-2024 MCH (RBC) [Entitic mass] MCH [Entitic ma ss] by Automated count 24.7-34.3 [facility] MCHC Auto (RBC) [Mass/Vol]Or dered By: John Cortes on 02-10-2024 MCHC (RBC) [Mass/Vol] MCHC [Mass/volume] by Automated count 32.0-35.0 [facility] MCV Auto (RBC) [Entitic vol] Ordered By: John Cortes on 02-10-2024 MCV (RBC) [Entitic vol] MCV [Entitic vol ume] by Automated count 80-100 [facility] Monocyte distribution width [Entitic volume] in Blood by AutomatedOrdered By: John Cortes on 02-10-2024 Monocyte distribution width Auto (Bld) [Entitic vol] Monocyte distribution width [Entitic volume] in Blood by Automated High 0.00-20.00 [facility] Monocytes Auto (Bld) [#/Vol] Ordered By: John Cortes on 02-10-2024 Monocytes (Bld) [#/Vol] Automated blood monocyte count 0.0-0.8 [facility] Monocytes/100 WBC Auto (Bld) Ordered By: John Cortes on 02-10-2024 Monocytes/100 WBC (Bld) Automated monocyte % . [facility] Neutrophils Auto (Bld) [#/Vo l]Ordered By: John Cortes on 02-10-2024 Neutrophils (Bld) [#/Vol] Neutrophils [#/volume] in Blood by Automated count 1.8-7.7 [facility] Neutrophils/100 WBC Auto (Bl d)Ordered By: John Cortes on 02-10-2024 Neutrophils/100 WBC (Bld) Automated neutrophil % . [facility] Nitrite Test strip Ql (U)Ord ered By: John Cortes on 02-10-2024 Nitrite Ql (U) Nitrite [Presence] i n Urine by Test strip Negative [facility] No Panel InformationOrdered By: John Cortes on 02-10-2024 > 60.0 mL/Min [facility] 103.17 [facility] Nucleated erythrocytes [Pres ence] in Blood by Automated countOrdered By: John Cortes on 02-10-2024 Nucleated RBC Auto Ql (Bld) Nucleated erythrocytes [Presence] in Blood by Automated count 0-0.5 [facility] Platelet mean volume Auto (B ld) [Entitic vol]Ordered By: John Cortes on 02-10-2024 Platelet mean volume (Bld) [Entitic vol] Platelet mean volume [Entitic volume] in Blood by Automated count 6.3-10.7 [facility] Platelets Auto (Bld) [#/Vol] Ordered By: John Cortes on 02-10-2024 Platelets (Bld) [#/Vol] Platelets [#/vol ume] in Blood by Automated count 150-450 [facility] Potassium [Moles/volume] in Serum or PlasmaOrdered By: John Cortes on 02-10-2024 Potassium [Moles/Vol] Potassium [Moles/volume] in Serum or Plasma 3.5-5.1 [facility] Protein Test strip (U) [Mass /Vol]Ordered By: John Cortes on 02-10-2024 Protein (U) [Mass/Vol] Protein [Mass/vol ume] in Urine by Test strip Negative [facility] Protein [Mass/volume] in Ser um or PlasmaOrdered By: John Cortes on 02-10-2024 Protein [Mass/Vol] Protein [Mass/volume ] in Serum or Plasma 6.4-8.9 [facility] RBC Auto (Bld) [#/Vol]Ordere d By: John Cortes on 02-10-2024 RBC (Bld) [#/Vol] Erythrocytes [#/volume] in Blood by Automated count 3.60-5.00 [facility] Serum or plasma albumin/glob ulin mass ratioOrdered By: John Cortes on 02-10-2024 Albumin/Globulin [Mass ratio] Serum or plasma albumin/globulin mass ratio [facility] Serum or plasma anion gap de terminationOrdered By: John Cortes on 02-10-2024 Anion gap [Moles/Vol] Serum or plasma an ion gap determination 6.0-15.0 [facility] Sodium [Moles/volume] in Ser um or PlasmaOrdered By: John Cortes on 02-10-2024 Sodium [Moles/Vol] Sodium [Moles/volume ] in Serum or Plasma 136-145 [facility] Specific gravity Test strip (U) [Rel density]Ordered By: John Cortes on 02-10-2024 Specific gravity (U) [Rel density] Specific gravity of Urine by Test strip 1.001-1.030 [facility] Urea nitrogen [Mass/volume] in Serum or PlasmaOrdered By: John Cortes on 02-10-2024 Urea nitrogen [Mass/Vol] Urea nitrogen [Mass/volume] in Serum or Plasma 7-25 [facility] Urobilinogen Test strip (U) [Mass/Vol]Ordered By: John Cortes on 02-10-2024 Urobilinogen (U) [Mass/Vol] Urobilinogen [Mass/volume] in Urine by Test strip Normal [facility] WBC Auto (Bld) [#/Vol]Ordere d By: John Cortes on 02-10-2024 WBC (Bld) [#/Vol] Leukocytes [#/volume ] in Blood by Automated count 3.8-11.6 [facility] pH Test strip (U)Ordered By: John Cortes on 02-10-2024 pH (U) pH of Urine by Test strip 5.0-9.0 [facility] Alanine aminotransferase [En zymatic activity/volume] in Serum or PlasmaOrdered By: Rebecca Marmolejo on 01-27-2024 ALT [Catalytic activity/Vol] 16 U/L Normal [facility] Comment on above: Performed By: #### H CGQUAL, BMP, LIPASE, CBC, HEPATIC ####[facility] [id number] ALT [Catalytic activity/Vol] Alanine aminotransferase [Enzymatic activity/volume] in Serum or Plasma [facility] Albumin [Mass/volume] in Ser um or Plasma by Bromocresol green (BCG) dye binding methoOrdered By: Rebecca Marmolejo on 01-27-2024 Albumin BCG dye [Mass/Vol] 4.4 g/dL 3.5-5.7 [facility] Albumin BCG dye [Mass/Vol] Albumin [Mass/volume] in Serum or Plasma by Bromocresol green (BCG) dye binding metho 3.5-5.7 [facility] Alkaline phosphatase [Enzyma tic activity/volume] in Serum or PlasmaOrdered By: Rebecca Marmolejo on 01-27-2024 ALP [Catalytic activity/Vol] 76 U/L Normal 34 [facility] Comment on above: Performed By: #### H CGQUAL, BMP, LIPASE, CBC, HEPATIC ####[place] [id number] [address] ALP [Catalytic activity/Vol] Alkaline phosphatase [Enzymatic activity/volume] in Serum or Plasma 34 [facility] Appearance of UrineOrdered B y: Rebecca Marmolejo on 01-27-2024 Appearance (U) Urine appearance Clear [facility] Aspartate aminotransferase [ Enzymatic activity/volume] in Serum or PlasmaOrdered By: Rebecca Marmolejo on 01-27-2024 AST [Catalytic activity/Vol] 16 U/L Normal [facility] Comment on above: Performed By: #### H CGQUAL, BMP, LIPASE, CBC, HEPATIC ####[place] [id number] [address] AST [Catalytic activity/Vol] Aspartate aminotransferase [Enzymatic activity/volume] in Serum or Plasma [facility] Automated basophil %Ordered By: Rebecca Marmolejo on 01-27-2024 Basophils/100 WBC (Bld) 1.4 % Normal . [facility] Comment on above: Performed By: #### H CGQUAL, BMP, LIPASE, CBC, HEPATIC ####[place] [address] [place] [id number] [facility] Automated basophil countOrde red By: Rebecca Marmolejo on 01-27-2024 Basophils (Bld) [#/Vol] 0.1 10*3/uL Normal 0.0-0.2 [facility] Comment on above: Result Comment: PERF ORMED BY:[address] [place], [place] [phone] MEDICAL DIRECTORIVAN NUÑEZ M.D. Performed By: #### H CGQUAL, BMP, LIPASE, CBC, HEPATIC ####[address] Automated blood monocyte cou ntOrdered By: Rebecca Marmolejo on 01-27-2024 Monocytes (Bld) [#/Vol] 0.4 10*3/uL Normal 0.0-0.8 [facility] Comment on above: Performed By: #### H CGQUAL, BMP, LIPASE, CBC, HEPATIC ####[address] Automated eosinophil %Ordere d By: Rebecca Marmolejo on 01-27-2024 Eosinophils/100 WBC (Bld) 3.5 % Normal . [facility] Comment on above: Performed By: #### H CGQUAL, BMP, LIPASE, CBC, HEPATIC ####[address] Automated eosinophil countOr dered By: Rebecca Marmolejo on 01-27-2024 Eosinophils (Bld) [#/Vol] 0.3 10*3/uL Normal 0.0-0.45 [facility] Comment on above: Performed By: #### H CGQUAL, BMP, LIPASE, CBC, HEPATIC ####[address] Automated monocyte %Ordered By: Rebecca Marmolejo on 01-27-2024 Monocytes/100 WBC (Bld) 4.7 % Normal . [facility] Comment on above: Performed By: #### H CGQUAL, BMP, LIPASE, CBC, HEPATIC ####[place] [id number] [facility] Automated neutrophil %Ordere d By: Rebecca Marmolejo on 01-27-2024 Neutrophils/100 WBC (Bld) 54.6 % Normal . [facility] Comment on above: Performed By: #### H CGQUAL, BMP, LIPASE, CBC, HEPATIC ####[facility] [id number] Bacteria [Presence] in Urine by AutomatedOrdered By: Rebecca Marmolejo on 01-27-2024 Bacteria Auto Ql (U) None seen [HPF] None Seen [facility] Bacteria Auto Ql (U) Bacteria [Presence] in Urine by Automated None Seen [facility] Basic Metabolic Panelon 12-31 Creatinine Clr Calc Pharmacy 102.03 Normal [facility] Comment on above: Performed By: #### H CGQUAL, BMP, LIPASE, CBC, HEPATIC ####[place] [id number] [address] GFR/1.73 sq M.predicted MDRD (S/P/Bld) [Vol rate/Area] mL/min/{1.73_m2} Normal [facility] Comment on above: Performed By: #### H CGQUAL, BMP, LIPASE, CBC, HEPATIC ####[facility] [id number] Basophils Auto (Bld) [#/Vol] Ordered By: Rebecca Marmolejo on 01-27-2024 Basophils (Bld) [#/Vol] Automated basoph il count 0.0-0.2 [facility] Basophils/100 WBC Auto (Bld) Ordered By: Rebecca Maromlejo on 01-27-2024 Basophils/100 WBC (Bld) Automated basophil % . [facility] Bilirubin Test strip Ql (U)O rdered By: Rebecca Marmolejo on 01-27-2024 Bilirubin Ql (U) Negative Negative [facility] Bilirubin Ql (U) Bilirubin.total [Presence] in Urine by Test strip Negative [facility] Bilirubin.direct [Mass/volum e] in Serum or PlasmaOrdered By: Rebecca Marmolejo on 01-27-2024 Bilirubin.direct [Mass/Vol] 0.10 mg/dL 0.03-0.18 [facility] Bilirubin.direct [Mass/Vol] Bilirubin.direct [Mass/volume] in Serum or Plasma 0.03-0.18 [facility] Bilirubin.total [Mass/volume ] in Serum or PlasmaOrdered By: Rebecca Marmolejo on 01-27-2024 Bilirubin [Mass/Vol] 0.2 mg/dL Low 0.3-1.0 [facility] Comment on above: Performed By: #### H CGQUAL, BMP, LIPASE, CBC, HEPATIC ####[facility] [place] [id number] [facility] Bilirubin [Mass/Vol] Bilirubin.total [Mass/volume] in Serum or Plasma Low 0.3-1.[address] [facility] [address] abdomen pelvis w conon CT abdomen pelvis w con Normal T [facility] Calcium [Mass/volume] in Ser um or PlasmaOrdered By: Rebecca Marmolejo on 01-27-2024 Calcium [Mass/Vol] 9.7 mg/dL Normal 8.6-10.3 [facility] Comment on above: Performed By: #### H CGQUAL, BMP, LIPASE, CBC, HEPATIC ####[place] [address] [place] [id number] [facility] Calcium [Mass/Vol] Calcium [Mass/volume ] in Serum or Plasma 8.6-10.3 [facility] Carbon dioxide, total [Moles /volume] in Serum or PlasmaOrdered By: Rebecca Marmolejo on 01-27-2024 CO2 [Moles/Vol] 24.2 mmol/L Normal 21.0-31.0 [facility] Comment on above: Performed By: #### H CGQUAL, BMP, LIPASE, CBC, HEPATIC ####[place] [id number] [facility] CO2 [Moles/Vol] Carbon dioxide, tota l [Moles/volume] in Serum or Plasma 21.0-31.0 [facility] Chloride [Moles/volume] in S jett or PlasmaOrdered By: Rebecca Marmolejo on 01-27-2024 Chloride [Moles/Vol] 105 mmol/L Normal 98-107 [facility] Comment on above: Performed By: #### H CGQUAL, BMP, LIPASE, CBC, HEPATIC ####[place] [id number] [facility] Chloride [Moles/Vol] Chloride [Moles/volume] in Serum or Plasma 98-107 [facility] Choriogonadotropin.beta subu nit [Units/volume] in Serum or PlasmaOrdered By: Rebecca Marmolejo on 01-27-2024 HCG.beta subunit Qn Negative [facility] HCG.beta subunit Qn Choriogonadotropin.b et a subunit [Units/volume] in Serum or Plasma [facility] Color Auto (U)Ordered By: Johnna Marmolejo on 01-27-2024 Color (U) Color of Urine by Auto Yellow [facility] Color of Urine by AutoOrdere d By: Rebecca Marmolejo on 01-27-2024 Color (U) Colorless Normal Yellow [facility] Comment on above: Order Comment: Name Collection Type:: Voided Performed By: #### A DDONUAPLUS ####[address] Complete Blood Count Auto Di ffon 01-27-2024 Mean Corpuscular HGB Conc 34.4 g/dL Normal 32.0-35.0 [facility] Comment on above: Performed By: #### H CGQUAL, BMP, LIPASE, CBC, HEPATIC ####[address] Monocytes/100 WBC (Bld) 18.46 % Normal 0.00-20.00 [facility] Comment on above: Performed By: #### H CGQUAL, BMP, LIPASE, CBC, HEPATIC ####[address] NRBC% 0.1 /100{WBC} Normal 0-0.5 [facility] Comment on above: Performed By: #### H CGQUAL, BMP, LIPASE, CBC, HEPATIC ####[address] Creatinine [Mass/volume] in Serum or PlasmaOrdered By: Rebecca Marmolejo on 01-27-2024 Creatinine [Mass/Vol] 0.70 mg/dL Normal 0.60-1.20 [facility] Comment on above: Performed By: #### H CGQUAL, BMP, LIPASE, CBC, HEPATIC ####[address] [address] [facility] Creatinine [Mass/Vol] Creatinine [Mass/volume] in Serum or Plasma 0.60-1.20 [facility] Dipstick and Microscopicon 1 Bacteria,Urine None Seen Normal None Seen [facility] Comment on above: Order Comment: Name Collection Type:: Voided Performed By: #### A DDONUAPLUS ####[address] [address] [facility] Bilirubin,Urine Negative Normal Negative [facility] Comment on above: Order Comment: Name Collection Type:: Voided Performed By: #### A DDONUAPLUS ####[place] [id number] [facility] Glucose Ql (U) Normal Normal Normal [facility] Comment on above: Order Comment: Name Collection Type:: Voided Performed By: #### A DDONUAPLUS ####[address] [address] [facility] Hyaline Casts,Urine None Normal 0-8 [facility] Comment on above: Order Comment: Name Collection Type:: Voided Performed By: #### A DDONUAPLUS ####[address] [address] [facility] Mucus,Urine Rare Normal [facility] Comment on above: Order Comment: Name Collection Type:: Voided Result Comment: PERF ORMED BY:[address] [place], [place] [id number] MEDICAL DIAZ NUÑEZ M.D. Performed By: #### A DDONUAPLUS ####[address] [address] [facility] Nitrite,Urine Negative Normal Negative [facility] Comment on above: Order Comment: Name Collection Type:: Voided Performed By: #### A DDONUAPLUS ####[address] [address] [facility] Occult Blood,Urine 1+ High Negative [facility] Comment on above: Order Comment: Name Collection Type:: Voided Result Comment: PERF ORMED BY:[address] [place], [place] [phone] MEDICAL DIRECTORIVAN NUÑEZ M.D. Performed By: #### A DDONUAPLUS ####[address] [address] [facility] Protein,Urine Negative Normal Negative [facility] Comment on above: Order Comment: Name Collection Type:: Voided Performed By: #### A DDONUAPLUS ####[address] [address] [facility] RBC,Urine 3-4 Normal 0-4 [facility] Comment on above: Order Comment: Name Collection Type:: Voided Performed By: #### A DDONUAPLUS ####[address] [address] [facility] Specificy [place],Urine 1.013 Normal 1.001-1.030 [facility] Comment on above: Order Comment: Name Collection Type:: Voided Performed By: #### A DDONUAPLUS ####[address] [address] [facility] Squamous Epithelial Cell,Urine 1-2 Normal 0-2 [facility] Comment on above: Order Comment: Name Collection Type:: Voided Performed By: #### A DDONUAPLUS ####[address] [address] [facility] Urobilinogen,Urine Normal Normal Normal [facility] Comment on above: Order Comment: Name Collection Type:: Voided Performed By: #### A DDONUAPLUS ####[address] [address] [facility] WBC,Urine 1-2 Normal 0-4 [facility] Comment on above: Order Comment: Name Collection Type:: Voided Performed By: #### A DDONUAPLUS ####[address] [address] [facility] Eosinophils Auto (Bld) [#/Vo l]Ordered By: Rebecca Marmolejo on 01-27-2024 Eosinophils (Bld) [#/Vol] Automated eosinophil count 0.0-0.45 [facility] Eosinophils/100 WBC Auto (Bl d)Ordered By: Rebecca Marmolejo on 01-27-2024 Eosinophils/100 WBC (Bld) Automated eosinophil % . [facility] Epithelial cells.squamous [# /area] in Urine sediment by Automated countOrdered By: Rebecca Marmolejo on 01-27-2024 Epithelial cells.squamous Auto (Urine sed) [#/Area] 1-2 [HPF] 0-2 [facility] Epithelial cells.squamous Auto (Urine sed) [#/Area] Epithelial cells.squamous [#/area] in Urine sediment by Automated count 0-2 [facility] Erythrocyte distribution wid th Auto (RBC) [Ratio]Ordered By: Rebecca Marmolejo on 01-27-2024 Erythrocyte distribution width (RBC) [Ratio] Erythrocyte distribution width [Ratio] by Automated count 11.9-15.3 [facility] Erythrocyte distribution wid th [Ratio] by Automated countOrdered By: Rebecca Marmolejo on 01-27-2024 Erythrocyte distribution width (RBC) [Ratio] 13.6 % Normal 11.9-15.3 [facility] Comment on above: Performed By: #### H CGQUAL, BMP, LIPASE, CBC, HEPATIC ####[facility] [id number] Erythrocytes [#/area] in Uri ne sediment by Automated countOrdered By: Rebecca Marmolejo on 01-27-2024 RBC Auto (Urine sed) [#/Area] 3-4 [HPF] 0-4 [facility] RBC Auto (Urine sed) [#/Area] Erythrocytes [#/area] in Urine sediment by Automated count 0-4 [facility] Erythrocytes [#/volume] in B lood by Automated countOrdered By: Rebecca Marmolejo on 01-27-2024 RBC (Bld) [#/Vol] 4.35 10*6/uL Normal 3.60-5.00 [facility] Comment on above: Performed By: #### H CGQUAL, BMP, LIPASE, CBC, HEPATIC ####[facility] [id number] [place] [id number] [facility] Globulin Calc (S) [Mass/Vol] Ordered By: Rebceca Marmolejo on 01-27-2024 Globulin (S) [Mass/Vol] Serum globulin measurement by calculation (mass/volume) [facility] Glucose [Mass/volume] in Ser um or PlasmaOrdered By: Rebecca Marmolejo on 01-27-2024 Glucose [Mass/Vol] 102 mg/dL High 70-100 [facility] Comment on above: Result Comment: [place] Glucose Reference Range is dependent on time and content of last meal. Glucose of more than 200 mg/dL in a nonstressed, ambulatory subject supports the diagnosis of Diabetes Mellitus. ADA recommended reference range Performed By: #### H CGQUAL, BMP, LIPASE, CBC, HEPATIC ####[facility] [id number] [place] [address] [facility] Glucose [Mass/Vol] Glucose [Mass/volume ] in Serum or Plasma High 70-100 [facility] Glucose [Mass/volume] in Uri ne by Test stripOrdered By: Rebecca Marmolejo on 01-27-2024 Glucose Test strip (U) [Mass/Vol] Normal mg/dL Normal [facility] Glucose Test strip (U) [Mass/Vol] Glucose [Mass/volume] in Urine by Test strip Normal [facility] HCG,Qualitative Serumon 12-31 HCG,Qualitative Serum Negative Normal [facility] Comment on above: Result Comment: PERF ORMED BY:[address] [place], [place] [phone] MEDICAL DIRECTORIVAN NUÑEZ M.D. Performed By: #### H CGQUAL, BMP, LIPASE, CBC, HEPATIC ####[facility] [id number] [place] [address] [facility] Hematocrit Auto (Bld) [Volum e fraction]Ordered By: Rebecca Marmolejo on 01-27-2024 Hematocrit (Bld) [Volume fraction] Hematocrit [Volume Fraction] of Blood by Automated count 34.0-46.4 [facility] Hematocrit [Volume Fraction] of Blood by Automated countOrdered By: Rebecca Marmolejo on 01-27-2024 Hematocrit (Bld) [Volume fraction] 38.0 % Normal 34.0-46.4 [facility] Comment on above: Performed By: #### H CGQUAL, BMP, LIPASE, CBC, HEPATIC ####[address] Hemoglobin Test strip Ql (U) Ordered By: Rebecca Marmolejo on 01-27-2024 Hemoglobin Ql (U) 1+ High Negative [facility] Hemoglobin Ql (U) Hemoglobin [Presence ] in Urine by Test strip High Negative [facility] Hemoglobin [Mass/volume] in BloodOrdered By: Rebecca Marmolejo on 01-27-2024 Hemoglobin (Bld) [Mass/Vol] 13.1 g/dL Normal 11.8-15.4 [facility] Comment on above: Performed By: #### H CGQUAL, BMP, LIPASE, CBC, HEPATIC ####[address] Hemoglobin (Bld) [Mass/Vol] Hemoglobin [Mass/volume] in Blood 11.8-15.4 [facility] Hepatic Panelon 01-27-2024 Albumin [Mass/Vol] 4.4 g/dL Normal 3.5-5.7 [facility] Comment on above: Performed By: #### H CGQUAL, BMP, LIPASE, CBC, HEPATIC ####[address] Bilirubin,Indirect 0.1 mg/dL Normal [facility] Comment on above: Performed By: #### H CGQUAL, BMP, LIPASE, CBC, HEPATIC ####[address] Bilirubin.indirect [Mass/Vol] 0.10 mg/dL Normal 0.03-0.18 [facility] Comment on above: Performed By: #### H CGQUAL, BMP, LIPASE, CBC, HEPATIC ####[address] Hyaline casts [#/area] in Ur ine sediment by Automated countOrdered By: Rebecca Marmolejo on 01-27-2024 Hyaline casts Auto (Urine sed) [#/Area] None [LPF] 0-8 [facility] Hyaline casts Auto (Urine sed) [#/Area] Hyaline casts [#/area] in Urine sediment by Automated count 0-8 [facility] Ketones Test strip Ql (U)Ord ered By: Rebecca Marmolejo on 01-27-2024 Ketones Ql (U) Ketones [Presence] i n Urine by Test strip Negative [facility] Ketones [Presence] in Urine by Test stripOrdered By: Rebecca Marmolejo on 01-27-2024 Ketones Ql (U) Negative Normal Negative [facility] Comment on above: Order Comment: Name Collection Type:: Voided Performed By: #### A DDONUAPLUS ####[facility] [id number] [address] Leukocyte esterase [Presence ] in Urine by Test stripOrdered By: Rebecca Marmolejo on 01-27-2024 Leukocyte esterase Test strip Ql (U) Negative Normal Negative [facility] Comment on above: Order Comment: Name Collection Type:: Voided Performed By: #### A DDONUAPLUS ####[facility] [id number] [place] [address] Leukocyte esterase Test strip Ql (U) Leukocyte esterase [Presence] in Urine by Test strip Negative [facility] Leukocytes [#/area] in Urine sediment by Automated countOrdered By: Rebecca Marmolejo on 01-27-2024 WBC Auto (Urine sed) [#/Area] 1-2 [HPF] 0-4 [facility] WBC Auto (Urine sed) [#/Area] Leukocytes [#/area] in Urine sediment by Automated count 0-4 [facility] Leukocytes [#/volume] correc jacki for nucleated erythrocytes in Blood by Automated counOrdered By: Rebecca Marmolejo on 01-27-2024 WBC corrected for nucl RBC Auto (Bld) [#/Vol] 9.4 10*3/uL 3.8-11.6 [facility] WBC corrected for nucl RBC Auto (Bld) [#/Vol] Leukocytes [#/volume] corrected for nucleated erythrocytes in Blood by Automated coun .8-11. [facility] Leukocytes [#/volume] in Blo od by Automated countOrdered By: Rebecca Marmolejo on 01-27-2024 WBC (Bld) [#/Vol] 9.4 10*3/uL Normal 3.8-11.6 [facility] Comment on above: Performed By: #### H CGQUAL, BMP, LIPASE, CBC, HEPATIC ####[place] [id number] Lipase [Enzymatic activity/v olume] in Serum or PlasmaOrdered By: Rebecca Marmolejo on 01-27-2024 Lipase [Catalytic activity/Vol] 114.0 U/L High 11.0-82.0 [facility] Comment on above: Performed By: #### H CGQUAL, BMP, LIPASE, CBC, HEPATIC ####[place] [address] [place] [id number] [facility] Lipase [Catalytic activity/Vol] Lipase [Enzymatic activity/volume] in Serum or Plasma High 11.0-82.0 [facility] Lymphocytes Auto (Bld) [#/Vo l]Ordered By: Rebecca Marmolejo on 01-27-2024 Lymphocytes (Bld) [#/Vol] Lymphocytes [#/volume] in Blood by Automated count 1.00-4.8 [facility] Lymphocytes [#/volume] in Bl ood by Automated countOrdered By: Rebecca Marmolejo on 01-27-2024 Lymphocytes (Bld) [#/Vol] 3.4 10*3/uL Normal 1.00-4.8 [facility] Comment on above: Performed By: #### H CGQUAL, BMP, LIPASE, CBC, HEPATIC ####[place] [id number] [facility] Lymphocytes/100 WBC Auto (Bl d)Ordered By: Rebecca Marmolejo on 01-27-2024 Lymphocytes/100 WBC (Bld) Lymphocytes/100 leukocytes in Blood by Automated count . [facility] Lymphocytes/100 leukocytes i n Blood by Automated countOrdered By: Rebecca Marmolejo on 01-27-2024 Lymphocytes/100 WBC (Bld) 35.8 % Normal . [facility] Comment on above: Performed By: #### H CGQUAL, BMP, LIPASE, CBC, HEPATIC ####[place] [id number] [facility] MCH Auto (RBC) [Entitic mass ]Ordered By: Rebecca Marmolejo on 01-27-2024 MCH (RBC) [Entitic mass] MCH [Entitic ma ss] by Automated count 24.7-34.3 [facility] MCH [Entitic mass] by Automa jacki countOrdered By: Rebecca Marmolejo on 01-27-2024 MCH (RBC) [Entitic mass] 30.1 pg Normal 24.7-34.3 [facility] Comment on above: Performed By: #### H CGQUAL, BMP, LIPASE, CBC, HEPATIC ####[facility] [id number] MCHC Auto (RBC) [Mass/Vol]Or dered By: Rebecca aMrmolejo on 01-27-2024 MCHC (RBC) [Mass/Vol] 34.4 g/dL 32.0-35.0 [facility] MCHC (RBC) [Mass/Vol] MCHC [Mass/volume] by Automated count 32.0-35.0 [facility] MCV Auto (RBC) [Entitic vol] Ordered By: Rebecca Marmolejo on 01-27-2024 MCV (RBC) [Entitic vol] MCV [Entitic vol ume] by Automated count 80-100 [facility] MCV [Entitic volume] by Auto mated countOrdered By: Rebecca Marmolejo on 01-27-2024 MCV (RBC) [Entitic vol] 87.5 fL Normal 80-100 [facility] Comment on above: Performed By: #### H CGQUAL, BMP, LIPASE, CBC, HEPATIC ####[place] [id number] Monocyte distribution width [Entitic volume] in Blood by AutomatedOrdered By: Rebecca Marmolejo on 01-27-2024 Monocyte distribution width Auto (Bld) [Entitic vol] 18.46 % 0.00-20.00 [facility] Monocyte distribution width Auto (Bld) [Entitic vol] Monocyte distribution width [Entitic volume] in Blood by Automated 0.00-20.00 [facility] Monocytes Auto (Bld) [#/Vol] Ordered By: Rebecca Marmolejo on 01-27-2024 Monocytes (Bld) [#/Vol] Automated blood monocyte count 0.0-0.8 [facility] Monocytes/100 WBC Auto (Bld) Ordered By: Rebecca Marmolejo on 01-27-2024 Monocytes/100 WBC (Bld) Automated monocyte % . [facility] Mucus [Presence] in Urine by AutomatedOrdered By: Rebecca Marmolejo on 01-27-2024 Mucus Auto Ql (U) Rare [LPF] [facility] Mucus Auto Ql (U) Mucus [Presence] in Urine by Automated [facility] Neutrophils Auto (Bld) [#/Vo l]Ordered By: Rebecca Marmolejo on 01-27-2024 Neutrophils (Bld) [#/Vol] Neutrophils [#/volume] in Blood by Automated count 1.8-7.7 [facility] Neutrophils [#/volume] in Bl ood by Automated countOrdered By: Rebecca Marmolejo on 01-27-2024 Neutrophils (Bld) [#/Vol] 5.1 10*3/uL Normal 1.8-7.7 [facility] Comment on above: Performed By: #### H CGQUAL, BMP, LIPASE, CBC, HEPATIC ####[facility] [id number] Neutrophils/100 WBC Auto (Bl d)Ordered By: Rebecca Marmolejo on 01-27-2024 Neutrophils/100 WBC (Bld) Automated neutrophil % . [facility] Nitrite Test strip Ql (U)Ord ered By: Rebecca Marmolejo on 01-27-2024 Nitrite Ql (U) Negative Negative [facility] Nitrite Ql (U) Nitrite [Presence] i n Urine by Test strip Negative [facility] No Panel InformationOrdered By: Rebecca Marmolejo on 01-27-2024 > 60.0 mL/Min [facility] 102.03 [facility] Nucleated erythrocytes [Pres ence] in Blood by Automated countOrdered By: Rebecca Marmolejo on 01-27-2024 Nucleated RBC Auto Ql (Bld) 0.1 /100{WBC} 0-0.5 [facility] Nucleated RBC Auto Ql (Bld) Nucleated erythrocytes [Presence] in Blood by Automated count 0-0.5 [facility] Platelet mean volume Auto (B ld) [Entitic vol]Ordered By: Rebecca Marmolejo on 01-27-2024 Platelet mean volume (Bld) [Entitic vol] Platelet mean volume [Entitic volume] in Blood by Automated count 6.3-10.7 [facility] Platelet mean volume [Entiti c volume] in Blood by Automated countOrdered By: Rebecca Marmolejo on 01-27-2024 Platelet mean volume (Bld) [Entitic vol] 8.0 fL Normal 6.3-10.7 [facility] Comment on above: Performed By: #### H CGQUAL, BMP, LIPASE, CBC, HEPATIC ####[facility] [id number] Platelets Auto (Bld) [#/Vol] Ordered By: Rebecca Marmolejo on 01-27-2024 Platelets (Bld) [#/Vol] Platelets [#/vol ume] in Blood by Automated count 150-450 [facility] Platelets [#/volume] in Bloo d by Automated countOrdered By: Rebecca Marmolejo on 01-27-2024 Platelets (Bld) [#/Vol] 388 10*3/uL Normal 150-450 [facility] Comment on above: Performed By: #### H CGQUAL, BMP, LIPASE, CBC, HEPATIC ####[place] [address] [place] [id number] [facility] Potassium [Moles/volume] in Serum or PlasmaOrdered By: Rebecca Marmolejo on 01-27-2024 Potassium [Moles/Vol] 3.5 mmol/L Normal 3.5-5.1 [facility] Comment on above: Performed By: #### H CGQUAL, BMP, LIPASE, CBC, HEPATIC ####[place] [id number] [facility] Potassium [Moles/Vol] Potassium [Moles/volume] in Serum or Plasma 3.5-5.1 [facility] Protein Test strip (U) [Mass /Vol]Ordered By: Rebecca Marmolejo on 01-27-2024 Protein (U) [Mass/Vol] Negative Negative [facility] Protein (U) [Mass/Vol] Protein [Mass/vol ume] in Urine by Test strip Negative [facility] Protein [Mass/volume] in Ser um or PlasmaOrdered By: Rebecca Marmolejo on 01-27-2024 Protein [Mass/Vol] 7.5 g/dL Normal 6.4-8.9 [facility] Comment on above: Performed By: #### H CGQUAL, BMP, LIPASE, CBC, HEPATIC ####[place] [id number] Protein [Mass/Vol] Protein [Mass/volume ] in Serum or Plasma 6.4-8.9 [facility] RBC Auto (Bld) [#/Vol]Ordere d By: Rebecca Marmolejo on 01-27-2024 RBC (Bld) [#/Vol] Erythrocytes [#/volume] in Blood by Automated count 3.60-5.00 [facility] Serum globulin measurement b y calculation (mass/volume)Ordered By: Rebecca Marmolejo on 01-27-2024 Globulin (S) [Mass/Vol] 3.1 g/dL Normal [facility] Comment on above: Performed By: #### H CGQUAL, BMP, LIPASE, CBC, HEPATIC ####[place] [id number] Serum or plasma albumin/glob ulin mass ratioOrdered By: Rebecca Marmolejo on 01-27-2024 Albumin/Globulin [Mass ratio] 1.4 {ratio} Normal [facility] Comment on above: Performed By: #### H CGQUAL, BMP, LIPASE, CBC, HEPATIC ####[place] [id number] Albumin/Globulin [Mass ratio] Serum or plasma albumin/globulin mass ratio [facility] Serum or plasma anion gap de terminationOrdered By: Rebecca Marmolejo on 01-27-2024 Anion gap [Moles/Vol] 12.3 mmol/L Normal 6.0-15.0 [facility] Comment on above: Performed By: #### H CGQUAL, BMP, LIPASE, CBC, HEPATIC ####[address] Anion gap [Moles/Vol] Serum or plasma an ion gap determination 6.0-15.0 [facility] Serum or plasma non-glucuron idated bilirubin measurement (mass/volume)Ordered By: Rebecca Marmolejo on 01-27-2024 Bilirubin.indirect [Mass/Vol] 0.1 mg/dL [facility] Bilirubin.indirect [Mass/Vol] Serum or plasma non-glucuronidated bilirubin measurement (mass/volume) [facility] Sodium [Moles/volume] in Ser um or PlasmaOrdered By: Rebecca Marmolejo on 01-27-2024 Sodium [Moles/Vol] 138 mmol/L Normal 136-145 [facility] Comment on above: Performed By: #### H CGQUAL, BMP, LIPASE, CBC, HEPATIC ####[place] [id number] Sodium [Moles/Vol] Sodium [Moles/volume ] in Serum or Plasma 136-145 [facility] Specific gravity Test strip (U) [Rel density]Ordered By: Rebecca Marmolejo on 01-27-2024 Specific gravity (U) [Rel density] 1.013 1.001-1.030 [facility] Specific gravity (U) [Rel density] Specific gravity of Urine by Test strip 1.001-1.030 [facility] Urea nitrogen [Mass/volume] in Serum or PlasmaOrdered By: Rebecca Marmolejo on 01-27-2024 Urea nitrogen [Mass/Vol] 14 mg/dL Normal 10-23 [facility] Comment on above: Performed By: #### H CGQUAL, BMP, LIPASE, CBC, HEPATIC ####[place] [id number] [facility] Urea nitrogen [Mass/Vol] Urea nitrogen [Mass/volume] in Serum or Plasma 10-23 [facility] Urine appearanceOrdered By: Rebecca Marmolejo on 01-27-2024 Appearance (U) Clear Normal Clear [facility] Comment on above: Order Comment: Name Collection Type:: Voided Performed By: #### A DDONUAPLUS ####[place] [id number] [facility] Urobilinogen Test strip (U) [Mass/Vol]Ordered By: Rebecca Marmolejo on 01-27-2024 Urobilinogen (U) [Mass/Vol] Normal mg/dL Normal [facility] Urobilinogen (U) [Mass/Vol] Urobilinogen [Mass/volume] in Urine by Test strip Normal [facility] WBC Auto (Bld) [#/Vol]Ordere d By: Rebecca Marmolejo on 01-27-2024 WBC (Bld) [#/Vol] Leukocytes [#/volume ] in Blood by Automated count 3.8-11.6 [facility] pH Test strip (U)Ordered By: Rebecca Marmolejo on 01-27-2024 pH (U) pH of Urine by Test strip 5.0-9.0 [facility] pH of Urine by Test stripOrd ered By: Rebecca Marmolejo on 01-27-2024 pH (U) 5.5 [pH] Normal 5.0-9.0 [facility] Comment on above: Order Comment: Name Collection Type:: Voided Performed By: #### A DDONUAPLUS ####[facility] [id number] ED Clinical Summaryon 2023 ED Clinical Summary ED Clinical Summary [place] [address] ED Clinical Summary Person Information Name: GIOVANNA STREETER [place] Age: 48 Years : 1975 Sex: Female Language: Comoran PCP: REBECCA NAVAS CNP Marital Status: Visit Id: Visit Reason: Medical problem - minor; Headache; Dental pain; JAW PAIN Speciality: Acuity: 4 Enc Type: Emergency Med Service: Emergency Arrival: 01/19/2024 03:04:25 Discharge: 01/19/2024 06:56:15 LOS: 000 03:52 Checkin: 01/19/2024 03:04:25 Checkout: 01/19/2024 06:56:15 Dispo Type: Home (Routine DC) EVENTS: Event Name Event Status Request Date/Time Start Date/Time Complete Date/Time Arrive Complete 01/19/2024 03:04:25 01/19/2024 03:04:25 01/19/2024 03:04:25 Document Home Meds Request 01/19/2024 03:04:25 Triage Complete 01/19/2024 03:04:25 01/19/2024 03:44:13 01/19/2024 03:44:13 Registration Complete 01/19/2024 03:24:14 01/19/2024 03:24:14 01/19/2024 03:24:14 Reg Complete Request 01/19/2024 03:24:14 Reg Bed Request Complete 01/19/2024 03:24:14 01/19/2024 03:24:14 01/19/2024 03:24:14 Bed Assign Complete 01/19/2024 06:26:32 01/19/2024 06:26:32 01/19/2024 06:26:32 Dr Exam Complete 01/19/2024 06:26:32 01/19/2024 06:33:43 01/19/2024 06:33:43 RN Exam Complete 01/19/2024 06:26:32 01/19/2024 06:32:10 01/19/2024 06:32:10 Registration Request 01/19/2024 06:33:43 Meds Admin Request 01/19/2024 06:39:58 Discharge Complete 01/19/2024 06:41:30 01/19/2024 06:56:24 01/19/2024 06:56:24 Transfer Complete 01/19/2024 06:56:24 01/19/2024 06:56:24 01/19/2024 06:56:24 ADDRESS: [address] [place] [address] [id number] PHYS DOC NOTES: MEDICAL INFORMATION: Prescriptions Given: New Medications [facility] [id number], [address], [place] [id number], [phone] clindamycin (clindamycin 150 mg Cap) 3 Capsules By Mouth every 8 hours for 7 Days. Refills: 0. Medications to Continue with No Changes Other Medications atorvastatin (atorvastatin 20 mg Tab) 1 Tablets By Mouth every day. azithromycin (Zithromax) 250 Milligram By Mouth. lisinopril 20 Milligram By Mouth every day. meclizine (meclizine 25 mg Tab) 1 Tablets By Mouth 3 times a day as needed for dizziness. Refills: 0. omeprazole (omeprazole 20 mg Cap-DR) 1 Capsules By Mouth every day. Refills: 0. omeprazole (omeprazole 20 mg Cap-DR) 1 Capsules By Mouth every day. PATIENT EDUCATION INFORMATION: Instructions: Dental Pain Follow up: With: Address: When: Dental: [facility] [phone] In 3 days 01/22/2024 With: Address: When: Dental: [facility] [phone] In 3 days 01/22/2024 With: Address: When: Dental: [facility] [phone] In 3 days 01/22/2024 With: Address: When: REBECCA NAVAS [address] [facility] [place] [address] In 3 days DIAGNOSIS: Pain, dental Normal [facility] ED Note-Physicianon 01-19-20 ED Note-Physician ED Note-Physician Basic Information Time Seen: Donis Taylor DOSlade 01/19/2024 06:33 Chief Complaint Pt states dental pain on the left molar side that started in the last couple days. States that it is aching and giving her a headache. Been taking motrin with no relief. History of Present Illness HPI: Patient is a 48-year-old female who presents the ED for dental pain. Patient states over the past couple days she has been having worsening lower left and lower right molar pain. She states it got to the point where it is very painful to chew. She denies any fever or chills. She states that this morning she has mild headache with this. She is taking Motrin and Tylenol with minimal relief. She does not currently have a dentist. ROS: Pertinent review of systems conducted and is negative except as noted above. Physical exam: General: nontoxic appearing and in no distress HEENT: Mucous membranes moist. Dental caries. No submandibular swelling or tenderness. Airway is patent. Neuro: awake and alert Neck: supple, trachea midline Card: Heart regular rate and rhythm no murmur Resp: Lungs clear to auscultation no wheeze or rhonchi Physical Exam Vitals & Measurements T: 36.6 ?C(Oral) HR: 90(Peripheral) RR: 20 BP: 116/76 SpO2: 98% HT: 160 cm WT: 90.4 kg BMI: 35.31 Medical Decision Making MEDICAL DECISION MAKING Number and Complexity of Problems Differential Diagnosis: [] [facility] Data External documents reviewed: N/A My EKG interpretation: Noted in chart if applicable My CT interpretation: N/A My X-ray interpretation: Noted in chart if applicable My Ultrasound interpretation: N/A Decision rules/scores evaluated: N/A Discussed with: N/A Treatment and Disposition ED Course: Patient is nontoxic-appearing no distress. She has multiple dental caries and pain in her lower molars. No signs of Reji's angina or other life-threatening infection at this time. She is already taking ibuprofen and acetaminophen. Will start her on a course of oral clindamycin as she is penicillin allergic. We will give her benzocaine and lidocaine soaked cotton balls for topical pain relief. Will give her information for local dental clinics for follow-up. Shared decision making: As above Code status: N/A Assessment/Plan Pain, dental (K08.89: Other specified disorders of teeth and supporting structures) Orders: benzocaine topical, 1 iliana, Gel, Topical, QID for 30 day(s), Stop date 02/18/24 6:38:00 EST, STAT, Start date 01/19/24 6:39:00 EDT clindamycin, 450 mg = 3 cap(s), Cap, Oral, Once, Stop date 01/19/24 6:39:00 EDT, STAT, Start date 01/19/24 6:39:00 EDT, 01/19/24 6:39:00 EDT clindamycin, 450 mg = 3 cap(s), Oral, q8hr, X 7 day(s), # 63 cap(s), Refills(s) 0, Pharmacy: [facility] [id number], 160, cm, 01/19/24 3:44:00 EDT, Height/Length Dosing, 90.4, kg, 01/19/24 3:44:00 EDT, Weight Dosing cyclobenzaprine, 10 mg = 1 tab(s), Oral, TID, PRN Muscle pain, # 16 tab(s), Refills(s) 0, Pharmacy: [facility] #[id number], 160, cm, 08/22/22 0:30:00 EDT, Height/Length Dosing, 88, kg, 08/22/22 0:30:00 EDT, Weight Dosing lidocaine topical, 200 mg, 10 mL, Soln-Oral, Oral, Once, Stop date 01/19/24 6:39:00 EDT, STAT, Start date 01/19/24 6:39:00 EDT naproxen, 500 mg = 1 tab(s), Oral, BID, PRN Pain, # 20 tab(s), Refills(s) 0, Pharmacy: [facility] #[id number], 160, cm, 08/22/22 0:30:00 EDT, Height/Length Dosing, 88, kg, 08/22/22 0:30:00 EDT, Weight Dosing naproxen, 500 mg = 1 tab(s), Oral, BID, PRN Pain, # 10 tab(s), Refills(s) 0, [facility] [id number], 160, cm, 11/18/23 1:02:00 EDT, Height/Length Dosing, 93.2, kg, 11/18/23 1:02:00 EDT, Weight Dosing ondansetron, 4 mg = 1 tab(s), Oral, q8hr, PRN Nausea/Vomiting, # 12 tab(s), Refills(s) 0, [facility] [id number], 160, cm, 11/18/23 1:02:00 EDT, Height/Length Dosing, 93.2, kg, 11/18/23 1:02:00 EDT, Weight Dosing ondansetron, 4 mg = 1 tab(s), Oral, q8hr, PRN Nausea/Vomiting, # 16 tab(s), Refills(s) 0, Pharmacy: [facility] #[id number], 160, cm, 09/09/22 18:26:00 EDT, Height/Length Dosing, 88, kg, 09/09/22 18:26:00 EDT, Weight Dosing Disposition Plan Discharge Prescription List Prescriptions clindamycin 150 mg Cap, 450 mg= 3 cap(s), Oral, q8hr Follow-up With When Contact Information Dental: [facility] [phone] In 3 days 01/22/2024 EDT Additional Instructions: Dental: [facility] [phone] In 3 days 01/22/2024 EDT Additional Instructions: Dental: [facility] [phone] In 3 days 01/22/2024 EDT Additional Instructions: REBECCA NAVAS In 3 days [address] [place] [address]- Additional Instructions: Patient Education Dental Pain Problem List/Past Medical History Ongoing Asymptomatic microscopic hematuria BMI 33.0-33.9,adult Cystitis Dysuria Smoker Stress incontinence Umbilical hernia Historical Hyperlipidemia Hypertension Procedure/Surgical History Bilateral tubal ligation. Medications Inpatient benzocaine topical 20% gel, 1 iliana, T (more content not included)... Normal [facility] Comment on above: Result Comment: Elec tronically Signed By: Donis Taylor DO\.br\Date and Time Signed: 01/19/24 06:43 EDT ED Patient Summaryon 024 ED Patient Summary ED Patient Summary [address] [address] Patient Discharge Instructions Person Information Name: GIOVANNA STREETER Age: 48 Years Arrival Date: 01/19/2024 03:04:25 Discharge Diagnosis: Pain, dental Primary Care Physician: REBECCA NAVAS CNP Provider Information Primary Provider: Donis Taylor DO Advanced Cigarette Lighter Repairer:None The exam and treatment you received in the Emergency Department were for an urgent problem and are not intended as complete care. It is important that you follow up with a doctor, nurse practitioner, or physician?s medical assistant float for ongoing care. If your symptoms become worse or you do not improve as expected and you are unable to reach your usual health care provider, you should return to the Emergency Department. We are available 24 hours a day. GIOVANNA STREETER has been given the following list of patient education materials, prescriptions and follow-up instructions: Follow-up Instructions: With: Address: When: Dental: [facility] [phone] In 3 days 01/22/2024 With: Address: When: Dental: [facility] [phone] In 3 days 01/22/2024 With: Address: When: Dental: [facility] [phone] In 3 days 01/22/2024 With: Address: When: REBECCA NAVAS [address] [place] [address] In 3 days In the event that this physician does not participate in your insurance network, please consult with your insurance company to find a nearby participating provider. Patient Education Materials: Dental Pain A MESSAGE TO ALL PATIENTS REGARDING OPIOIDS PRESCRIPTION OPIOIDS: WHAT YOU NEED TO KNOW Prescription opioids can be used to help relieve eyypnims-cu-fzkxpf pain and are often prescribed following a surgery or injury, or for certain health conditions. These medications can be an important part of the treatment but also come with serious risks. It is important to work with your healthcare provider to make sure you are getting the safest, most effective care. WHAT ARE THE RISKS AND SIDE EFFECTS OF OPIOID USE? Prescription opioids carry serious risks of addiction and overdose, especially with prolonged use. An opioid overdose, often marked by slowed breathing, can cause sudden . The use of prescription opioids can have a number of side effects as well, even when taken as directed: ? Tolerance?meaning you might need to take more of the medication for the same pain relief ? Physical dependence?meaning you have symptoms of withdrawal when a medication is stopped ? Increased sensitivity to pain ? Constipation ? Nausea, vomiting, and dry mouth ? Sleepiness and dizziness ? Confusion ? Depression ? Low levels of testosterone that can result in lower sex drive, energy, and strength ? Itching and sweating RISKS ARE GREATER WITH: ? History of drug misuse, substance use disorder, or overdose ? Mental health conditions (such as depression or anxiety) ? Sleep apnea ? Older age (65 years and older) ? Avoid alcohol while taking prescription opioids. Also, unless specifically advised by your health care provider, medications to avoid include: ? Benzodiazepines (such as Xanax or Valium) ? Muscle relaxants (such as Soma or Flexeril) ? Hypnotics (such as Ambien or Lunesta) ? Other prescription opioids KNOW YOUR OPTIONS Talk to your health care provider about ways to manage your pain that don?t involve prescription opioids. Some of these options may actually work better and have fewer risks and side effects. Options may include: ? Pain relievers such as acetaminophen, ibuprofen, and naproxen ? Some medication that are also used for depression or seizures ? Physical therapy and exercise ? Cognitive behavioral therapy, a psychological, goal-directed approach, in which patients learn how to modify physical, behavioral, and emotional triggers of pain and stress. IF YOU ARE PRESCRIBED OPIOIDS FOR PAIN: ? Never take opioids in greater amounts or more often than prescribed. ? Follow up with your primary health care provider. o Work together to create a plan on how to manage your pain. o Talk about ways to help manage your pain that don?t involve prescription opioids. o Talk about any and all concerns and side effects. ? Help prevent misuse and abuse o Never sell or share prescription opioids. o Never use another person?s prescription opioids. ? Store prescription opioids in a secure place and out of reach of others (this may include visitors, children, friends, and family). ? Safely dispose of unused prescription opioids: Find your community drug take-back program or your pharmacy mail-back program, or flush them down the toilet, following guidance from the Food and Drug Administration (www.fda.gov/Drugs/Res ourcesForYou). ? Visit www.cdc.gov/drugoverdo se to learn about the risks of opioids (more content not included)... Normal [facility] Quick Strepon 01-04-2024 Quick Strep Normal [facility] Comment on above: Performed By: #### Q S ####[facility] [id number] [place] [id number] [facility] Streptococcus pyogenes antig en detectionOrdered By: John Cortes on 01-04-2024 S. pyogenes Ag Ql (Unsp spec) Streptococcus pyogenes antigen detection [facility] S. pyogenes Ag Ql (Unsp spec) [facility] ED Note-Physicianon 12-19-19 ED Note-Physician ED Note-Physician Basic Information Time Seen: Elieser Ferris PA-C 12/18/2023 21:06 Chief Complaint pt arrives for c/o right side pain including the right side of her chest . History of Present Illness Patient is a 48-year-old female that presents today for evaluation of her right-sided chest pain. She is frequently seen here in the ED for multiple complaints of chest pain and has had multiple workups including CTA recently that have been negative. 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 She immediately felt short of breath at that time which is why she presented to the ED. She denies any nausea, vomiting, diarrhea. She does admit to some right leg pain but has had that intermittently in association with her chest pain. She denies any abdominal pain, dyspnea, diaphoresis. She does state that the right side of her rib cage is tender to touch. Review of Systems No other aggravating or relieving factors no other associated symptoms no other prior treatments or complaints. Family: Reviewed and noncontributory Social: lives at home Review of systems negative unless otherwise specified in the HPI. Physical Exam Vitals & Measurements T: 36.6 ?C(Oral) HR: 61(Monitored) RR: 5 BP: 95/62 SpO2: 97% HT: 160 cm WT: 93 kg BMI: 36.33 General: The patient appears well and in no apparent distress. Patient is resting comfortably on cart. Skin: Warm, dry, no pallor noted. Head: Normocephalic, atraumatic Neck: No JVD Eye: PERRLA, EOMI ENT: Moist mucus membranes Cardiovascular: Regular rate and rhythm. Normal peripheral perfusion Respiratory: CTA bilaterally. No respiratory distress no accessory muscle use no obvious audible wheezing Chest Wall: no deformity or rash. Mild tenderness to palpation to the right side of the chest wall extending along the rib cage. Musculoskeletal: normal ROM, no deformity, no swelling. Mild tenderness to the right lower leg. GI: Soft no obvious distention. No rebound or rigidity. No guarding. No tenderness. Neurological: A&O moves all extremities equal strength and symmetry Psychiatric: Cooperative and appropriate Procedure Heart Score for Major Cardiac Event History: Example factors for history - pattern of chest pain, onset, duration, relation with exercise, stress or cold, localization, concominant symptoms. reaction to sublingual nitrates, [] Highly suspicious +2 [] Moderately suspicious +1 [x] Slightly suspicious 0 EKG: [] Significant ST-Depression +2 [] Non specific repolarization disturbance +1 [x] Normal 0 Age: [] >= 65 +2 [x] 45-65 + 1 [] <45 0 Risk Factors: (HLD, HTN, DM, Cigarette Smoking, Pos Family Hx, Obesity) [] >3 risk factors or hx of atheroslerotic disease + 2 [x] 1-2 risk factors + 1 [] No risk factors known 0 Troponin: [] >= 3X normal + 2 [] 1-3X normal + 1 [x] <= Normal 0 [x] 0-3 Points 0.9 - 1.7% risk of major adverse cardiac event in 6 weeks [] 4-6 Points 12-16.6% risk of major adverse cardiac event in 6 weeks [] 7-10 Points 50-65% risk of major adverse cardiac event in 6 weeks [] 0-3 Points with 2 sets of negative cardiac markers <1% risk of major adverse cardiac event in 30 days Medical Decision Making Patient is a 48-year-old female presents today for evaluation of right-sided chest pain. She has been seen here in the ED for multiple complaints of chest pain and has multiple negative workups including CTA recently that is been negative. 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 Denies any other systemic signs or symptoms. On exam patient is afebrile and nontoxic-appearing. She does have mild reproducible tenderness to palpation to the right side of the chest wall extending along the rib cage. CTA to bilateral lung quesada. RRR. Abdomen is soft nontender. There is mild tenderness to the right lower leg. Labs are WNL including 0 and 1 hour troponin. Chest x-ray is negative for any acute cardiopulmonary process. EKG demonstrates sinus tachycardia but no evidence of acute change from previous. Given the reproducible nature of the chest pain I provided her with a dose of Toradol that improved her pain here in the ED. She will be discharged home with naproxen and tizanidine for her musculoskeletal chest pain. She will follow-up with her PCP to ensure she is getting better. Low likelihood that it is cardiac in nature given heart score less than 3. Return to ED precautions were reviewed with the patient at length. Assessment/Plan Chest pain (R07.9: Chest pain, unspecified) Chest wall tenderness (R07.89: Other chest pain) Right leg pain (M79.604: Pain in right leg) Shortness of breath (R06.02: Shortness of breath) Orders: ketorolac, 30 mg = 1 mL, Injection, IV Push, Once, Stop date 12/18/23 21:49:00 EDT, STAT, Start (more content not included)... Normal [facility] Comment on above: Result Comment: Elec tronically Signed By: Elieser Ferris PA-C\.br\Date and Time Signed: 12/18/23 23:38 EDT\.br\Electronically Co-Signed By: Marshall Henriquez DO\.br\Date and Time Co-Signed: 12/19/23 03:37 EDT XR Chest Single Viewon 12-18 XR Chest Single View Exam Date/Time: 12/18/2023 21:45 EDT Reason for Exam: Chest pain Report IMPRESSION: NO ACUTE CARDIOPULMONARY DISEASE. CLINICAL HISTORY: Chest pain COMPARISON: December 08, 2023. FINDINGS: Osseous structures intact. Cardiopericardial silhouette normal. Pulmonary vasculature normal. Lungs clear. Ordering Provider: Marshall Henriquez FINAL REPORT Dictated: 12/19/2023 8:35 am Jhonatan Harris MD Signed (Electronic Signature): 12/19/2023 8:35 am Signed by: Jhonatan Harris MD Transcribed by: JOE Technologist: ANAID Technical Comments Radiation Dose: Ka,r in mGy = na DAP = na Normal [facility] BMPon 12-18-2023 Anion gap [Moles/Vol] 15 mmol/L Normal 6-16 [facility] Comment on above: Performed By: #### 2 [id number] #### [facility] [address] [place] [address] Calcium [Mass/Vol] 9.7 mg/dL Normal 8.9-11.1 [facility] Comment on above: Performed By: #### 2 [id number] #### [facility] [address] [place] [address] Chloride [Moles/Vol] 104 mmol/L Normal 101-111 [facility] Comment on above: Performed By: #### 2 [id number] #### [facility] [address] [place] [address] CO2 [Moles/Vol] 23 mmol/L Normal 21-31 [facility] Comment on above: Performed By: #### 2 [id number] #### [facility] [address] [place] [address] Creatinine [Mass/Vol] 0.9 mg/dL Normal 0.5-1.3 [facility] Comment on above: Performed By: #### 2 [id number] #### [facility] [address] [place] [address] Glucose [Mass/Vol] 111 mg/dL Normal 55-199 [facility] Comment on above: Performed By: #### 2 [id number] #### [facility] [address] [place] [address] Potassium [Moles/Vol] 3.8 mmol/L Normal 3.5-5.3 [facility] Comment on above: Performed By: #### 2 [id number] #### [facility] [address] [place] [address] Sodium [Moles/Vol] 138 mmol/L Normal 135-145 [facility] Comment on above: Performed By: #### 2 [id number] #### [facility] [address] [place] [address] Urea nitrogen [Mass/Vol] 14 mg/dL Normal 5-21 [facility] Comment on above: Performed By: #### 2 [id number] #### [facility] [address] [place] [address] Urea nitrogen/Creatinine [Mass ratio] 16 No Units Normal 10-20 [facility] Comment on above: Performed By: #### 2 [id number] #### [facility] [address] [place] [address] CBC w/ Auto Diffon 4 Basophils/100 WBC (Bld) 0.8 % Normal 0.0-2.0 [facility] Comment on above: Performed By: #### 2 [id number] #### [facility] [address] [place] [address] Basophils/Leukocytes Auto (Bld) [Pure # fraction] 0.1 E9/L Normal 0.0-0.2 [facility] Comment on above: Performed By: #### 2 [id number] #### [facility] [address] [place] [address] Eosinophils (Bld) [#/Vol] 0.2 E9/L Normal 0.0-0.5 [facility] Comment on above: Performed By: #### 2 [id number] #### [facility] [address] [place] [address] Eosinophils/100 WBC (Bld) 2.5 % Normal 0.0-8.0 [facility] Comment on above: Performed By: #### 2 [id number] #### [facility] [address] [place] [address] Erythrocyte distribution width (RBC) [Ratio] 14.0 % Normal 10.9-14.2 [facility] Comment on above: Performed By: #### 2 [id number] #### [facility] [address] [place] [address] Hematocrit (Bld) [Volume fraction] 39.7 % Normal 34.0-46.0 [facility] Comment on above: Performed By: #### 2 [id number] #### [facility] [address] [place] [address] Hemoglobin (Bld) [Mass/Vol] 14.1 g/dL Normal 12.0-16.0 [facility] Comment on above: Performed By: #### 2 [id number] #### [facility] [address] [place] [address] Lymphocytes (Bld) [#/Vol] 2.6 E9/L Normal 1.0-4.0 [facility] Comment on above: Performed By: #### 2 [id number] #### [facility] [address] [place] [address] Lymphocytes/100 WBC (Bld) 28.2 % Normal 14.0-50.0 [facility] Comment on above: Performed By: #### 2 [id number] #### [facility] [address] [place] [address] MCH (RBC) [Entitic mass] 31.2 pg Normal 27.0-34.0 [facility] Comment on above: Performed By: #### 2 [id number] #### [facility] [address] [place] [address] MCHC (RBC) [Mass/Vol] 35.5 g/dL Normal 31.4-36.0 [facility] Comment on above: Performed By: #### 2 [id number] #### [facility] [address] [place] [address] MCV (RBC) [Entitic vol] 88.1 fL Normal 80.0-100.0 [facility] Comment on above: Performed By: #### 2 [id number] #### [facility] [address] [place] [address] Monocytes (Bld) [#/Vol] 0.7 E9/L Normal 0.2-1.0 [facility] Comment on above: Performed By: #### 2 [id number] #### [facility] [address] [place] [address] Neutrophils (Bld) [#/Vol] 5.5 E9/L Normal 2.0-7.5 [facility] Comment on above: Performed By: #### 2 [id number] #### [facility] [address] [place] [address] Neutrophils/100 WBC (Bld) 61.1 % Normal 36.0-75.0 [facility] Comment on above: Performed By: #### 2 [id number] #### [facility] [address] [place] [address] Platelet 403.0 E9/L Normal 150.0-500.0 [facility] Comment on above: Performed By: #### 2 [id number] #### [facility] [address] [place] [address] Platelet mean volume (Bld) [Entitic vol] 7.8 fL Normal 6.4-10.8 [facility] Comment on above: Performed By: #### 2 [id number] #### [facility] [address] [place] [address] RBC (Bld) [#/Vol] 4.5 E12/L Normal 4.3-5.9 [facility] Comment on above: Performed By: #### 2 [id number] #### [facility] [address] [place] [address] WBC corrected for nucl RBC Auto (Bld) [#/Vol] 9.1 E9/L Normal 4.0-11.0 [facility] Comment on above: Performed By: #### 2 [id number] #### [facility] [address] [place] [address] CHEMISTRYOrdered By: SYSTEM SYSTEM on 12-18-2023 Troponin HS 3.60 pg/mL Low 10.10 - 27.10 pg/mL [facility] Comment on above: Interpretive Data: T he 95% CI (Confidence Interval) PPV (Positive Predictive Value) for myocardial infarction in females is 38 pg/mL, in males 51 pg/mL. The results should be used in conjunction with clinical conditions of myocardial infarction. ([facility] High Sensitivity Troponin I Instructions For Use, Sapna Steven, October 2017) Anion gap [Moles/Vol] 15 mmol/L Normal 6 - 16 mEq/L [facility] Calcium [Mass/Vol] 9.7 mg/dL Normal 8.9 - 11. 1 mg/dL [facility] Chloride [Moles/Vol] 104 mmol/L Normal 101 - 1 11 mmol/L [facility] CO2 [Moles/Vol] 23 mmol/L Normal 21 - 31 mmol/L [facility] Creatinine [Mass/Vol] 0.9 mg/dL Normal 0.5 - 1.3 mg/dL [facility] eGFR 78 mL/min/1.73 m2 Normal >=59mL/min / 1.73 m2 [facility] Glucose [Mass/Vol] 111 mg/dL Normal 55 - 199 mg/dL [facility] Potassium [Moles/Vol] 3.8 mmol/L Normal 3.5 - 5.3 mmol/L [facility] Sodium [Moles/Vol] 138 mmol/L Normal 135 - 145 mmol/L [facility] Troponin HS 3.30 pg/mL Low 10.10 - 27.10 pg/mL [facility] Comment on above: Interpretive Data: T luna 95% CI (Confidence Interval) PPV (Positive Predictive Value) for myocardial infarction in females is 38 pg/mL, in males 51 pg/mL. The results should be used in conjunction with clinical conditions of myocardial infarction. ([facility] High Sensitivity Troponin I Instructions For Use, Sapna Steven, October 2017) Urea nitrogen [Mass/Vol] 14 mg/dL Normal 5 - 21 mg/dL [facility] Urea nitrogen/Creatinine [Mass ratio] 16 mg/mg Normal 10 - 20 [facility] COAGULATIONOrdered By: Celeste Gregory on 12-18-2023 aPTT Coag (PPP) [Time] 37.9 s High 25.1 - 36.5 second(s) [facility] Comment on above: Interpretive Data: P arameter 15 days - 4 weeks 1 - 5 months 6 - 11 months 1 - 5 years 6 - 10 years 11 - 17 years PTT Mean: 35.4 (27.6-45.6) Mean: 33.5 (24.8-40.7) Mean: 32.4 (25.1-40.7) Mean: 31.6 (24.0-39.2) Mean: 31.6 (26.9-38.7) Mean: 31.0 (24.6-38.4) Pediatric Reference ranges were obtained from a study by Scott aCtes et al. prepared from 1437 samples obtained at 7 different centers using the same coagulation reagent and instrumentation as [facility]. Currently there are no coagulation studies available worldwide for children to 14 days, and no normal ranges. Heparin therapeutic range (represented by Anti-Factor Xa activity of 0.2 - 0.4 U/mL) corresponds to PTT of 56.6 - 109.0 sec. INR Coag (PPP) [Relative time] 1.01 {INR} Invalid Interpretation Code [facility] Comment on above: Interpretive Data: I NR results are specifically intended to assess patients stabilized on long-term Anticoagulation therapy suggested INR s Less Intensive Anticoagulation 2.0 3.0 Conventional Range 3.0 4.5 PT Coag (PPP) [Time] 11.3 s Normal 9.4 - 1 2.5 second(s) [facility] Comment on above: Interpretive Data: 1 5 days - 4 weeks 1 - 5 months 6 -11 months 1-5 years 6-10 years 11 -17 years Mean: 11.2 (9.5-12.6) Mean: 11.0 (9.7-12.8) Mean: 11.0 (9.8-13.0) Mean: 11.3 (9.9-13.4) Mean: 11.7 (10.0-14.6) Mean: 11.8 (10.0 - 14.1) Pediatric Reference ranges were obtained from a study by Scott Cates et al. prepared from 1437 samples obtained at 7 different centers using the same coagulation reagent and instrumentation as [facility]. Currently there are no coagulation studies available worldwide for children to 14 days, and no normal ranges. ED Clinical Summaryon 2023 ED Clinical Summary ED Clinical Summary [place] [id number] ED Clinical Summary Person Information Name: GIOVANNA STREETER [facility] Age: 48 Years : 1975 Sex: Female Language: Comoran PCP: REBECCA NAVAS CNP Marital Status: Visit Id: Visit Reason: Shortness of breath; Chest pain; RT SIDE PAIN,SWEATING,TIGHTNES S IN CHEST Speciality: Acuity: 3 Enc Type: Emergency Med Service: Emergency Arrival: 12/18/2023 20:28:37 Discharge: 12/18/2023 23:39:52 LOS: 000 03:11 Checkin: 12/18/2023 20:28:37 Checkout: 12/18/2023 23:39:52 Dispo Type: Home (Routine DC) EVENTS: Event Name Event Status Request Date/Time Start Date/Time Complete Date/Time Arrive Complete 12/18/2023 20:28:37 12/18/2023 20:28:37 12/18/2023 20:28:37 Document Home Meds Request 12/18/2023 20:28:37 Triage Complete 12/18/2023 20:28:37 12/18/2023 20:36:03 12/18/2023 20:36:03 EKG Complete 12/18/2023 20:31:50 12/18/2023 20:36:33 Pending Labs Complete 12/18/2023 20:38:13 12/18/2023 23:13:32 Lab Complete 12/18/2023 20:38:13 12/18/2023 21:43:07 X-Ray Complete 12/18/2023 20:38:13 12/18/2023 21:23:01 12/18/2023 21:45:41 Registration Complete 12/18/2023 20:55:12 12/18/2023 20:55:12 12/18/2023 20:55:12 Reg Complete Request 12/18/2023 20:55:12 Reg Bed Request Complete 12/18/2023 20:55:12 12/18/2023 20:55:12 12/18/2023 20:55:12 Bed Assign Complete 12/18/2023 21:01:31 12/18/2023 21:01:31 12/18/2023 21:01:31 Dr Exam Complete 12/18/2023 21:01:31 12/18/2023 21:06:06 12/18/2023 21:06:06 RN Exam Complete 12/18/2023 21:01:31 12/18/2023 21:32:17 12/18/2023 21:32:17 Registration Complete 12/18/2023 21:06:06 12/18/2023 21:55:38 12/18/2023 21:55:38 Dr Exam Complete 12/18/2023 21:07:07 12/18/2023 21:07:07 12/18/2023 21:07:07 Pending Labs Complete 12/18/2023 21:18:32 12/18/2023 21:18:32 12/18/2023 21:43:07 Lab Complete 12/18/2023 21:18:32 12/18/2023 21:18:32 12/18/2023 21:43:07 Wet Read Request 12/18/2023 21:45:41 Meds Admin Complete 12/18/2023 21:50:11 12/18/2023 21:54:54 Meds Admin Complete 12/18/2023 23:31:25 12/18/2023 23:38:04 Discharge Complete 12/18/2023 23:32:46 12/18/2023 23:39:56 12/18/2023 23:39:56 Transfer Complete 12/18/2023 23:39:56 12/18/2023 23:39:56 12/18/2023 23:39:56 ADDRESS: [facility] [id number] PHYS DOC NOTES: MEDICAL INFORMATION: Prescriptions Given: New Medications [facility] [id number], [address] [place], [place] [id number], [phone] tizanidine (tiZANidine 2 mg Tab) 1 Tablets By Mouth every 8 hours for 7 Days. Refills: 0. Medications to Continue Taking That Have Changed [facility] [id number], [address] [id number], [phone] START: naproxen (naproxen 500 mg Tab) 1 Tablets By Mouth 2 times a day for 10 Days. Refills: 0. Other Medications START: naproxen (Naprosyn 500 mg Tab) 1 Tablets By Mouth 2 times a day as needed for pain. Refills: 0. START: naproxen (Naprosyn 500 mg Tab) 1 Tablets By Mouth 2 times a day as needed for pain. Refills: 0. START: naproxen (Naprosyn 500 mg Tab) 1 Tablets By Mouth 2 times a day as needed for pain. Refills: 0. START: naproxen (naproxen 500 mg oral enteric coated tablet) 1 Tablets By Mouth 2 times a day as needed Pain. Refills: 0. START: naproxen (naproxen 500 mg Tab) 1 Tablets By Mouth 2 times a day as needed Pain. Refills: 0. Medications to Continue with No Changes Other Medications acetaminophen-hydrocod one ([place] 325 mg-5 mg oral tablet) 1 Tablets By Mouth every 4 hours as needed for pain. Refills: 0. APAP/butalbital/caffei ne (APAP/butalbital/caffe ine 325 mg-50 mg-40 mg Tab) 2 Tablets By Mouth every 6 hours as needed for headache. Refills: 0. atorvastatin (atorvastatin 20 mg Tab) 1 Tablets By Mouth every day. azithromycin (azithromycin 250 mg Tab) 250 Milligram By Mouth As Directed. Refills: 0. brompheniramine/dextro methorphan/PSE (Bromfed DM oral syrup) 5 Milliliter By Mouth 4 times a day as needed for cough and congestion. Refills: 0. brompheniramine/dextro methorphan/PSE (Bromfed DM oral syrup) 5 Milliliter By Mouth 4 times a day as needed for cough and congestion. Refills: 0. cyclobenzaprine (cyclobenzaprine 10 mg Tab) 1 Tablets By Mouth 3 times a day as needed Muscle pain. Refills: 0. lisinopril 20 Milligram By Mouth every day. meclizine (meclizine 25 mg Tab) 1 Tablets By Mouth 3 times a day as needed for dizziness. Refills: 0. omeprazole (omeprazole 20 mg Cap-DR) 1 Capsules By Mouth every day. Refills: 0. ondansetron (ondansetron 4 mg Dis Tab) 1 Tablets By Mouth every 6 hours as needed Nausea/Vomiting. Refills: 0. ondansetron (Zofran ODT 4 mg Tab-Dis) 1 Tablets By Mouth every 8 hours as needed Nausea/Vomiting. Refills: 0. ondansetron (Zofran ODT 4 mg Tab-Dis) 1 Tablets By Mouth every 8 hours as needed Nausea/Vomiting. Refills: 0. ondansetron (Zofran ODT 4 mg Tab-Dis) 1 Tablets By Mouth every 8 hours. Refills: 0. predniSONE (pr (more content not included)... Normal [facility] ED Patient Summaryon 024 ED Patient Summary ED Patient Summary [place] [id number] Patient Discharge Instructions Person Information Name: GIOVANNA STREETER Age: 48 Years Arrival Date: 12/18/2023 20:28:37 Discharge Diagnosis: Chest pain; Chest wall tenderness; Right leg pain; Shortness of breath Primary Care Physician: REBECCA NAVAS CNP Provider Information Primary Provider: Marshall Henriquez DO Advanced C[employer] L[employer] Repairer:Elieser Ferris PA-C. The exam and treatment you received in the Emergency Department were for an urgent problem and are not intended as complete care. It is important that you follow up with a doctor, nurse practitioner, or physician?s medical assistant float for ongoing care. If your symptoms become worse or you do not improve as expected and you are unable to reach your usual health care provider, you should return to the Emergency Department. We are available 24 hours a day. GIOVANNA STREETER has been given the following list of patient education materials, prescriptions and follow-up instructions: Follow-up Instructions: With: Address: When: REBECCA NAVAS [address] [place] [address] In 3 days 12/21/2023 In the event that this physician does not participate in your insurance network, please consult with your insurance company to find a nearby participating provider. Patient Education Materials: Chest Wall Pain A MESSAGE TO ALL PATIENTS REGARDING OPIOIDS PRESCRIPTION OPIOIDS: WHAT YOU NEED TO KNOW Prescription opioids can be used to help relieve [id number] pain and are often prescribed following a surgery or injury, or for certain health conditions. These medications can be an important part of the treatment but also come with serious risks. It is important to work with your healthcare provider to make sure you are getting the safest, most effective care. WHAT ARE THE RISKS AND SIDE EFFECTS OF OPIOID USE? Prescription opioids carry serious risks of addiction and overdose, especially with prolonged use. An opioid overdose, often marked by slowed breathing, can cause sudden . The use of prescription opioids can have a number of side effects as well, even when taken as directed: ? Tolerance?meaning you might need to take more of the medication for the same pain relief ? Physical dependence?meaning you have symptoms of withdrawal when a medication is stopped ? Increased sensitivity to pain ? Constipation ? Nausea, vomiting, and dry mouth ? Sleepiness and dizziness ? Confusion ? Depression ? Low levels of testosterone that can result in lower sex drive, energy, and strength ? Itching and sweating RISKS ARE GREATER WITH: ? History of drug misuse, substance use disorder, or overdose ? Mental health conditions (such as depression or anxiety) ? Sleep apnea ? Older age (65 years and older) ? Avoid alcohol while taking prescription opioids. Also, unless specifically advised by your health care provider, medications to avoid include: ? Benzodiazepines (such as Xanax or Valium) ? Muscle relaxants (such as Soma or Flexeril) ? Hypnotics (such as Ambien or Lunesta) ? Other prescription opioids KNOW YOUR OPTIONS Talk to your health care provider about ways to manage your pain that don?t involve prescription opioids. Some of these options may actually work better and have fewer risks and side effects. Options may include: ? Pain relievers such as acetaminophen, ibuprofen, and naproxen ? Some medication that are also used for depression or seizures ? Physical therapy and exercise ? Cognitive behavioral therapy, a psychological, goal-directed approach, in which patients learn how to modify physical, behavioral, and emotional triggers of pain and stress. IF YOU ARE PRESCRIBED OPIOIDS FOR PAIN: ? Never take opioids in greater amounts or more often than prescribed. ? Follow up with your primary health care provider. o Work together to create a plan on how to manage your pain. o Talk about ways to help manage your pain that don?t involve prescription opioids. o Talk about any and all concerns and side effects. ? Help prevent misuse and abuse o Never sell or share prescription opioids. o Never use another person?s prescription opioids. ? Store prescription opioids in a secure place and out of reach of others (this may include visitors, children, friends, and family). ? Safely dispose of unused prescription opioids: Find your community drug take-back program or your pharmacy mail-back program, or flush them down the toilet, following guidance from the Food and Drug Administration (www.fda.gov/Drugs/Res ourcesForYou). ? Visit www.cdc.gov/drugoverdo se to learn about the risks of opioids abuse and overdose. ? If you believe you may be struggling with addiction, tell your health care provider and ask for guidance or call SAMHSA?S National Helpline at (more content not included)... Normal [facility] HEMATOLOGYOrdered By: SYSTEM SYSTEM on 12-18-2023 Basophils/100 WBC (Bld) 0.8 % Normal 0.0 - 2.0 % [facility] Basophils/Leukocytes Auto (Bld) [Pure # fraction] 0.1 E9/L Normal 0.0 - 0.2 E9/L [facility] Eosinophils (Bld) [#/Vol] 0.2 E9/L Normal 0.0 - 0.5 E9/L [facility] Eosinophils/100 WBC (Bld) 2.5 % Normal 0.0 - 8.0 % [facility] Erythrocyte distribution width (RBC) [Ratio] 14.0 % Normal 10.9 - 14.2 % [facility] Hematocrit (Bld) [Volume fraction] 39.7 % Normal 34.0 - 46.0 % [facility] Hemoglobin (Bld) [Mass/Vol] 14.1 g/dL Normal 12.0 - 16.0 gm/dL [facility] Lymphocytes (Bld) [#/Vol] 2.6 E9/L Normal 1.0 - 4.0 E9/L [facility] Lymphocytes/100 WBC (Bld) 28.2 % Normal 14.0 - 50.0 % [facility] MCH (RBC) [Entitic mass] 31.2 pg Normal 27. 0 - 34.0 pg [facility] MCHC (RBC) [Mass/Vol] 35.5 g/dL Normal 31.4 - 36.0 gm/dL [facility] MCV (RBC) [Entitic vol] 88.1 fL Normal 80.0 - 100.0 fL [facility] Monocytes (Bld) [#/Vol] 0.7 E9/L Normal 0.2 - 1.0 E9/L [facility] Monocytes/100 WBC (Bld) 7.4 % Normal 4.0 - 14.0 % [facility] Neutrophils (Bld) [#/Vol] 5.5 E9/L Normal 2.0 - 7.5 E9/L [facility] Neutrophils/100 WBC (Bld) 61.1 % Normal 36.0 - 75.0 % [facility] Platelet 403.0 E9/L Normal 150.0 - 500.0 E9/L [facility] Platelet mean volume (Bld) [Entitic vol] 7.8 fL Normal 6.4 - 10.8 fL [facility] RBC (Bld) [#/Vol] 4.5 E12/L Normal 4.3 - 5.9 E12/L [facility] WBC corrected for nucl RBC Auto (Bld) [#/Vol] 9.1 E9/L Normal 4.0 - 11.0 E9/L [facility] PT & PTTon 12-18-2023 aPTT Coag (PPP) [Time] 37.9 second(s) High 25.1-36.5 [facility] Comment on above: Result Comment: Para meter 15 days - 4 weeks 1 - 5 months 6 - 11 months 1 - 5 years 6 - 10 years 11 - 17 years PTT Mean: 35.4 (27.6-45.6) Mean: 33.5 (24.8-40.7) Mean: 32.4 (25.1-40.7) Mean: 31.6 (24.0-39.2) Mean: 31.6 (26.9-38.7) Mean: 31.0 (24.6-38.4) Pediatric Reference ranges were obtained from a study by Scott Cates et al. prepared from 1437 samples obtained at 7 different centers using the same coagulation reagent and instrumentation as [facility]. Currently there are no coagulation studies available worldwide for children to 14 days, and no normal ranges. Heparin therapeutic range (represented by Anti-Factor Xa activity of 0.2 - 0.4 U/mL) corresponds to PTT of 56.6 - 109.0 sec. Performed By: #### 1 [id number] #### [facility] [address] [place] [address] INR Coag (PPP) [Relative time] 1.01 {INR} Invalid Interpretation Code [facility] Comment on above: Result Comment: INR results are specifically intended to assess patients stabilized on long-term Anticoagulation therapy suggested INR?s ?Less Intensive Anticoagulation? 2.0 ? 3.0 Conventional Range 3.0 ? 4.5 Performed By: #### 1 [id number] #### [facility] [address] [place] [address] PT Coag (PPP) [Time] 11.3 second(s) Normal 9.4-12.5 [facility] Comment on above: Result Comment: 15 d ays - 4 weeks 1 - 5 months 6 -11 months 1-5 years 6-10 years 11 -17 years Mean: 11.2 (9.5-12.6) Mean: 11.0 (9.7-12.8) Mean: 11.0 (9.8-13.0) Mean: 11.3 (9.9-13.4) Mean: 11.7 (10.0-14.6) Mean: 11.8 (10.0 - 14.1) Pediatric Reference ranges were obtained from a study by garrison Bolanos al. prepared from 1437 samples obtained at 7 different centers using the same coagulation reagent and instrumentation as [facility]. Currently there are no coagulation studies available worldwide for children to 14 days, and no normal ranges. Performed By: #### 1 [id number] #### [facility] [address] [place] [address] Troponin 0 Hr.on 12-18-2023 Troponin HS 3.30 pg/mL Low 10.10-27.10 [facility] Comment on above: Result Comment: The 95% CI (Confidence Interval) PPV (Positive Predictive Value) for myocardial infarction in females is 38 pg/mL, in males 51 pg/mL. The results should be used in conjunction with clinical conditions of myocardial infarction. (Access High Sensitivity Troponin I Instructions For Use, [employer], October 2017) Performed By: #### 1 [id number] #### [facility] [address] [place] [address] Troponin 1 Hr.on 12-18-2023 Troponin HS 3.60 pg/mL Low 10.10-27.10 [facility] Comment on above: Order Comment: 2214 Result Comment: The 95% CI (Confidence Interval) PPV (Positive Predictive Value) for myocardial infarction in females is 38 pg/mL, in males 51 pg/mL. The results should be used in conjunction with clinical conditions of myocardial infarction. (Access High Sensitivity Troponin I Instructions For Use, [employer], October 2017) Performed By: #### 1 [id number] #### [facility] [address] [place] [address] eGFRon 12-18-2023 eGFR 78 mL/min/1.73 m2 Normal >=59 [facility] Comment on above: Performed By: #### 1 [id number] #### [facility] [address] [place] [address] Alanine aminotransferase [En zymatic activity/volume] in Serum or PlasmaOrdered By: Dominik Hall on 12-16-2023 ALT [Catalytic activity/Vol] 18 U/L [facility] ALT [Catalytic activity/Vol] Alanine aminotransferase [Enzymatic activity/volume] in Serum or Plasma [facility] Albumin [Mass/volume] in Ser um or Plasma by Bromocresol green (BCG) dye binding methoOrdered By: Dominik Hall on 12-16-2023 Albumin BCG dye [Mass/Vol] 4.6 g/dL 3.5-5.7 [facility] Albumin BCG dye [Mass/Vol] Albumin [Mass/volume] in Serum or Plasma by Bromocresol green (BCG) dye binding metho 3.5-5.7 [facility] Alkaline phosphatase [Enzyma tic activity/volume] in Serum or PlasmaOrdered By: Dominik Hall on 12-16-2023 ALP [Catalytic activity/Vol] 85 U/L 104 [facility] ALP [Catalytic activity/Vol] Alkaline phosphatase [Enzymatic activity/volume] in Serum or Plasma 104 [facility] Aspartate aminotransferase [ Enzymatic activity/volume] in Serum or PlasmaOrdered By: Dominik Hall on 12-16-2023 AST [Catalytic activity/Vol] 17 U/L [facility] AST [Catalytic activity/Vol] Aspartate aminotransferase [Enzymatic activity/volume] in Serum or Plasma [facility] Basophils Auto (Bld) [#/Vol] Ordered By: PROVIDER TEMP on 12-16-2023 Basophils (Bld) [#/Vol] 0.1 10*3/uL 0.0-0.2 [facility] Basophils (Bld) [#/Vol] Automated basoph il count 0.0-0.2 [facility] Basophils/100 WBC Auto (Bld) Ordered By: PROVIDER TEMP on 12-16-2023 Basophils/100 WBC (Bld) 0.7 % . [facility] Basophils/100 WBC (Bld) Automated basophil % . [facility] Bilirubin.direct [Mass/volum e] in Serum or PlasmaOrdered By: Dominik Hall on 12-16-2023 Bilirubin.direct [Mass/Vol] 0.00 mg/dL Low 0.03-0.18 [facility] Bilirubin.direct [Mass/Vol] Bilirubin.direct [Mass/volume] in Serum or Plasma Low 0.03-0.18 [facility] Bilirubin.total [Mass/volume ] in Serum or PlasmaOrdered By: Dominik Hall on 12-16-2023 Bilirubin [Mass/Vol] 0.3 mg/dL 0.3-1.0 [facility] Bilirubin [Mass/Vol] Bilirubin.total [Mass/volume] in Serum or Plasma 0.3-1.0 [facility] Calcium [Mass/volume] in Ser um or PlasmaOrdered By: PROVIDER TEMP on 12-16-2023 Calcium [Mass/Vol] 9.7 mg/dL 8.6-10.3 [facility] Calcium [Mass/Vol] Calcium [Mass/volume ] in Serum or Plasma 8.6-10.3 [facility] Carbon dioxide, total [Moles /volume] in Serum or PlasmaOrdered By: PROVIDER TEMP on 12-16-2023 CO2 [Moles/Vol] 24.2 mmol/L 21.0-31.0 [facility] CO2 [Moles/Vol] Carbon dioxide, tota l [Moles/volume] in Serum or Plasma 21.0-31.0 [facility] Chloride [Moles/volume] in S jett or PlasmaOrdered By: PROVIDER TEMP on 12-16-2023 Chloride [Moles/Vol] 101 mmol/L 98-107 [facility] Chloride [Moles/Vol] Chloride [Moles/volume] in Serum or Plasma 98-107 [facility] Creatine kinase [Enzymatic a ctivity/volume] in Serum or PlasmaOrdered By: PROVIDER TEMP on 12-16-2023 CK [Catalytic activity/Vol] 78 U/L [facility] CK [Catalytic activity/Vol] Creatine kinase [Enzymatic activity/volume] in Serum or Plasma [facility] Creatinine [Mass/volume] in Serum or PlasmaOrdered By: PROVIDER TEMP on 12-16-2023 Creatinine [Mass/Vol] 0.72 mg/dL 0.60-1.20 [facility] Creatinine [Mass/Vol] Creatinine [Mass/volume] in Serum or Plasma 0.60-1.20 [facility] Eosinophils Auto (Bld) [#/Vo l]Ordered By: PROVIDER TEMP on 12-16-2023 Eosinophils (Bld) [#/Vol] 0.2 10*3/uL 0.0-0.45 [facility] Eosinophils (Bld) [#/Vol] Automated eosinophil count 0.0-0.45 [facility] Eosinophils/100 WBC Auto (Bl d)Ordered By: PROVIDER TEMP on 12-16-2023 Eosinophils/100 WBC (Bld) 2.8 % . [facility] Eosinophils/100 WBC (Bld) Automated eosinophil % . [facility] Erythrocyte distribution wid th Auto (RBC) [Ratio]Ordered By: PROVIDER TEMP on 12-16-2023 Erythrocyte distribution width (RBC) [Ratio] 14.0 % 11.9-15.3 [facility] Erythrocyte distribution width (RBC) [Ratio] Erythrocyte distribution width [Ratio] by Automated count 11.9-15.3 [facility] Globulin Calc (S) [Mass/Vol] Ordered By: Dominik Hall on 12-16-2023 Globulin (S) [Mass/Vol] 3.1 g/dL [facility] Globulin (S) [Mass/Vol] Serum globulin measurement by calculation (mass/volume) [facility] Glucose [Mass/volume] in Ser um or PlasmaOrdered By: PROVIDER TEMP on 12-16-2023 Glucose [Mass/Vol] 144 mg/dL High 70-100 [facility] Glucose [Mass/Vol] Glucose [Mass/volume ] in Serum or Plasma High 70-100 [facility] Hematocrit Auto (Bld) [Volum e fraction]Ordered By: PROVIDER TEMP on 12-16-2023 Hematocrit (Bld) [Volume fraction] 41.4 % 34.0-46.4 [facility] Hematocrit (Bld) [Volume fraction] Hematocrit [Volume Fraction] of Blood by Automated count 34.0-46.4 [facility] Hemoglobin [Mass/volume] in BloodOrdered By: PROVIDER TEMP on 12-16-2023 Hemoglobin (Bld) [Mass/Vol] 14.2 g/dL 11.8-15.4 [facility] Hemoglobin (Bld) [Mass/Vol] Hemoglobin [Mass/volume] in Blood 11.8-15.4 [facility] Leukocytes [#/volume] correc jacki for nucleated erythrocytes in Blood by Automated counOrdered By: PROVIDER TEMP on 12-16-2023 WBC corrected for nucl RBC Auto (Bld) [#/Vol] 8.9 10*3/uL 3.8-11.6 [facility] WBC corrected for nucl RBC Auto (Bld) [#/Vol] Leukocytes [#/volume] corrected for nucleated erythrocytes in Blood by Automated coun 3.8-11.6 [facility] Lipase [Enzymatic activity/v olume] in Serum or PlasmaOrdered By: Dominik Hall on 12-16-2023 Lipase [Catalytic activity/Vol] 92.0 U/L High 11.0-82.0 [facility] Lipase [Catalytic activity/Vol] Lipase [Enzymatic activity/volume] in Serum or Plasma High 11.0-82.0 [facility] Lymphocytes Auto (Bld) [#/Vo l]Ordered By: PROVIDER TEMP on 12-16-2023 Lymphocytes (Bld) [#/Vol] 2.0 10*3/uL 1.00-4.8 [facility] Lymphocytes (Bld) [#/Vol] Lymphocytes [#/volume] in Blood by Automated count 1.00-4.8 [facility] Lymphocytes/100 WBC Auto (Bl d)Ordered By: PROVIDER TEMP on 12-16-2023 Lymphocytes/100 WBC (Bld) 22.9 % . [facility] Lymphocytes/100 WBC (Bld) Lymphocytes/100 leukocytes in Blood by Automated count . [facility] MCH Auto (RBC) [Entitic mass ]Ordered By: PROVIDER TEMP on 12-16-2023 MCH (RBC) [Entitic mass] 30.1 pg 24.7-34.3 [facility] MCH (RBC) [Entitic mass] MCH [Entitic ma ss] by Automated count 24.7-34.3 [facility] MCHC Auto (RBC) [Mass/Vol]Or dered By: PROVIDER TEMP on 12-16-2023 MCHC (RBC) [Mass/Vol] 34.2 g/dL 32.0-35.0 [facility] MCHC (RBC) [Mass/Vol] MCHC [Mass/volume] by Automated count 32.0-35.0 [facility] MCV Auto (RBC) [Entitic vol] Ordered By: PROVIDER TEMP on 12-16-2023 MCV (RBC) [Entitic vol] 87.9 fL 80-100 [facility] MCV (RBC) [Entitic vol] MCV [Entitic vol ume] by Automated count 80-100 [facility] Monocyte distribution width [Entitic volume] in Blood by AutomatedOrdered By: PROVIDER TEMP on 12-16-2023 Monocyte distribution width Auto (Bld) [Entitic vol] 20.05 % High 0.00-20.00 [facility] Monocyte distribution width Auto (Bld) [Entitic vol] Monocyte distribution width [Entitic volume] in Blood by Automated High 0.00-20.00 [facility] Monocytes Auto (Bld) [#/Vol] Ordered By: PROVIDER TEMP on 12-16-2023 Monocytes (Bld) [#/Vol] 0.3 10*3/uL 0.0-0.8 [facility] Monocytes (Bld) [#/Vol] Automated blood monocyte count 0.0-0.8 [facility] Monocytes/100 WBC Auto (Bld) Ordered By: PROVIDER TEMP on 12-16-2023 Monocytes/100 WBC (Bld) 3.6 % . [facility] Monocytes/100 WBC (Bld) Automated monocyte % . [facility] Natriuretic peptide B [Mass/ Vol]Ordered By: Dominik Hall on 12-16-2023 Natriuretic peptide B (Bld) [Mass/Vol] 41.0 pg/mL 5-100 [facility] Natriuretic peptide B (Bld) [Mass/Vol] BNP ser/plas 5-100 [facility] Neutrophils Auto (Bld) [#/Vo l]Ordered By: PROVIDER TEMP on 12-16-2023 Neutrophils (Bld) [#/Vol] 6.2 10*3/uL 1.8-7.7 [facility] Neutrophils (Bld) [#/Vol] Neutrophils [#/volume] in Blood by Automated count 1.8-7.7 [facility] Neutrophils/100 WBC Auto (Bl d)Ordered By: PROVIDER TEMP on 12-16-2023 Neutrophils/100 WBC (Bld) 70.0 % . [facility] Neutrophils/100 WBC (Bld) Automated neutrophil % . [facility] No Panel InformationOrdered By: PROVIDER TEMP on 12-16-2023 > 60.0 mL/Min [facility] 100.11 [facility] Nucleated erythrocytes [Pres ence] in Blood by Automated countOrdered By: PROVIDER TEMP on 12-16-2023 Nucleated RBC Auto Ql (Bld) 0.1 /100{WBC} 0-0.5 [facility] Nucleated RBC Auto Ql (Bld) Nucleated erythrocytes [Presence] in Blood by Automated count 0-0.5 [facility] Platelet mean volume Auto (B ld) [Entitic vol]Ordered By: PROVIDER TEMP on 12-16-2023 Platelet mean volume (Bld) [Entitic vol] 8.2 fL 6.3-10.7 [facility] Platelet mean volume (Bld) [Entitic vol] Platelet mean volume [Entitic volume] in Blood by Automated count 6.3-10.7 [facility] Platelets Auto (Bld) [#/Vol] Ordered By: PROVIDER TEMP on 12-16-2023 Platelets (Bld) [#/Vol] 407 10*3/uL 150-450 [facility] Platelets (Bld) [#/Vol] Platelets [#/vol ume] in Blood by Automated count 150-450 [facility] Potassium [Moles/volume] in Serum or PlasmaOrdered By: PROVIDER TEMP on 12-16-2023 Potassium [Moles/Vol] 3.3 mmol/L Low 3.5-5.1 [facility] Potassium [Moles/Vol] Potassium [Moles/volume] in Serum or Plasma Low 3.5-5.1 [facility] Protein [Mass/volume] in Ser um or PlasmaOrdered By: Dominik Hall on 12-16-2023 Protein [Mass/Vol] 7.7 g/dL 6.4-8.9 [facility] Protein [Mass/Vol] Protein [Mass/volume ] in Serum or Plasma 6.4-8.9 [facility] RBC Auto (Bld) [#/Vol]Ordere d By: PROVIDER TEMP on 12-16-2023 RBC (Bld) [#/Vol] 4.71 10*6/uL 3.60-5.00 [facility] RBC (Bld) [#/Vol] Erythrocytes [#/volume] in Blood by Automated count 3.60-5.00 [facility] Serum or plasma albumin/glob ulin mass ratioOrdered By: Dominik Hall on 12-16-2023 Albumin/Globulin [Mass ratio] 1.5 {ratio} [facility] Albumin/Globulin [Mass ratio] Serum or plasma albumin/globulin mass ratio [facility] Serum or plasma anion gap de terminationOrdered By: PROVIDER TEMP on 12-16-2023 Anion gap [Moles/Vol] 15.1 mmol/L High 6.0-15.0 [facility] Anion gap [Moles/Vol] Serum or plasma an ion gap determination High 6.0-15.0 [facility] Serum or plasma non-glucuron idated bilirubin measurement (mass/volume)Ordered By: Dominik Hall on 12-16-2023 Bilirubin.indirect [Mass/Vol] 0.3 mg/dL [facility] Bilirubin.indirect [Mass/Vol] Serum or plasma non-glucuronidated bilirubin measurement (mass/volume) [facility] Sodium [Moles/volume] in Ser um or PlasmaOrdered By: PROVIDER TEMP on 12-16-2023 Sodium [Moles/Vol] 137 mmol/L 136-145 [facility] Sodium [Moles/Vol] Sodium [Moles/volume ] in Serum or Plasma 136-145 [facility] Troponin I.cardiac [Mass/vol ume] in Serum or Plasma by Detection limit <= 0.01 ng/Ordered By: Dominik Hall on 12-16-2023 Troponin I.cardiac DL <= 0.01 ng/mL [Mass/Vol] 5.9 pg/mL 0.0-15.0 [facility] Troponin I.cardiac DL <= 0.01 ng/mL [Mass/Vol] Troponin I.cardiac [Mass/volume] in Serum or Plasma by Detection limit <= 0.01 ng/ 0.0-15.0 [facility] Urea nitrogen [Mass/volume] in Serum or PlasmaOrdered By: PROVIDER TEMP on 12-16-2023 Urea nitrogen [Mass/Vol] 8 mg/dL 10-23 [facility] Urea nitrogen [Mass/Vol] Urea nitrogen [Mass/volume] in Serum or Plasma 10-23 [facility] WBC Auto (Bld) [#/Vol]Ordere d By: PROVIDER TEMP on 12-16-2023 WBC (Bld) [#/Vol] 8.9 10*3/uL 3.8-11.6 [facility] WBC (Bld) [#/Vol] Leukocytes [#/volume ] in Blood by Automated count .8-11. [facility] Alanine aminotransferase [En zymatic activity/volume] in Serum or PlasmaOrdered By: John Cortes on 12-11-2023 ALT [Catalytic activity/Vol] 18 U/L [facility] ALT [Catalytic activity/Vol] Alanine aminotransferase [Enzymatic activity/volume] in Serum or Plasma [facility] Albumin [Mass/volume] in Ser um or Plasma by Bromocresol green (BCG) dye binding methoOrdered By: John Cortes on 12-11-2023 Albumin BCG dye [Mass/Vol] 4.5 g/dL 3.5-5.7 [facility] Albumin BCG dye [Mass/Vol] Albumin [Mass/volume] in Serum or Plasma by Bromocresol green (BCG) dye binding metho 3.5-5.7 [facility] Alkaline phosphatase [Enzyma tic activity/volume] in Serum or PlasmaOrdered By: John Cortes on 12-11-2023 ALP [Catalytic activity/Vol] 86 U/L 34-104 [facility] ALP [Catalytic activity/Vol] Alkaline phosphatase [Enzymatic activity/volume] in Serum or Plasma 34-104 [facility] Appearance of UrineOrdered B y: John Cortes on 12-11-2023 Appearance (U) Urine appearance Clear [facility] Aspartate aminotransferase [ Enzymatic activity/volume] in Serum or PlasmaOrdered By: John Cortes on 12-11-2023 AST [Catalytic activity/Vol] 15 U/L 13-39 [facility] AST [Catalytic activity/Vol] Aspartate aminotransferase [Enzymatic activity/volume] in Serum or Plasma 13-39 [facility] Bacteria [Presence] in Urine by AutomatedOrdered By: John Cortes on 12-11-2023 Bacteria Auto Ql (U) None seen [HPF] None Seen [facility] Bacteria Auto Ql (U) Bacteria [Presence] in Urine by Automated None Seen [facility] Basophils Auto (Bld) [#/Vol] Ordered By: John Cortes on 12-11-2023 Basophils (Bld) [#/Vol] 0.1 10*3/uL 0.0-0.2 [facility] Basophils (Bld) [#/Vol] Automated basoph il count 0.0-0.2 [facility] Basophils/100 WBC Auto (Bld) Ordered By: John Cortes on 12-11-2023 Basophils/100 WBC (Bld) 1.0 % . [facility] Basophils/100 WBC (Bld) Automated basophil % . [facility] Bilirubin Test strip Ql (U)O rdered By: John Cortes on 12-11-2023 Bilirubin Ql (U) Negative Negative [facility] Bilirubin Ql (U) Bilirubin.total [Presence] in Urine by Test strip Negative [facility] Bilirubin.total [Mass/volume ] in Serum or PlasmaOrdered By: John Cortes on 12-11-2023 Bilirubin [Mass/Vol] 0.2 mg/dL Low 0.3-1.0 [facility] Bilirubin [Mass/Vol] Bilirubin.total [Mass/volume] in Serum or Plasma Low 0.3-1.0 [facility] COVID CepheidOrdered By: PRO VIDER TEMP on 12-11-2023 SARS-CoV-2 (COVID-19) RNA EMI+probe Ql (Unsp spec) Negative Negative [facility] COVID CepheidOrdered By: Richard Cortes on 12-11-2023 SARS-CoV-2 (COVID-19) RNA EMI+probe Ql (Unsp spec) [facility] COVID Cepheid NegativeOrdere d By: PROVIDER TEMP on 12-11-2023 SARS-CoV-2 (COVID-19) RNA EMI+probe Ql (Unsp spec) COVID Cepheid Negative [facility] Calcium [Mass/volume] in Ser um or PlasmaOrdered By: John Cortes on 12-11-2023 Calcium [Mass/Vol] 9.5 mg/dL 8.6-10.3 [facility] Calcium [Mass/Vol] Calcium [Mass/volume ] in Serum or Plasma 8.6-10.3 [facility] Carbon dioxide, total [Moles /volume] in Serum or PlasmaOrdered By: John Cortes on 12-11-2023 CO2 [Moles/Vol] 24.3 mmol/L 21.0-31.0 [facility] CO2 [Moles/Vol] Carbon dioxide, tota l [Moles/volume] in Serum or Plasma 21.0-31.0 [facility] Chloride [Moles/volume] in S jett or PlasmaOrdered By: John Cortes on 12-11-2023 Chloride [Moles/Vol] 105 mmol/L 98-107 [facility] Chloride [Moles/Vol] Chloride [Moles/volume] in Serum or Plasma 98-107 [facility] Color Auto (U)Ordered By: Telly Cortes on 12-11-2023 Color (U) Light-yellow Yellow [facility] Color (U) Color of Urine by Auto Yellow [facility] Creatinine [Mass/volume] in Serum or PlasmaOrdered By: John Cortes on 12-11-2023 Creatinine [Mass/Vol] 0.66 mg/dL 0.60-1.20 [facility] Creatinine [Mass/Vol] Creatinine [Mass/volume] in Serum or Plasma 0.60-1.20 [facility] Eosinophils Auto (Bld) [#/Vo l]Ordered By: John Cortes on 12-11-2023 Eosinophils (Bld) [#/Vol] 0.4 10*3/uL 0.0-0.45 [facility] Eosinophils (Bld) [#/Vol] Automated eosinophil count 0.0-0.45 [facility] Eosinophils/100 WBC Auto (Bl d)Ordered By: John Cortes on 12-11-2023 Eosinophils/100 WBC (Bld) 4.2 % . [facility] Eosinophils/100 WBC (Bld) Automated eosinophil % . [facility] Epithelial cells.squamous [# /area] in Urine sediment by Automated countOrdered By: John Cortes on 12-11-2023 Epithelial cells.squamous Auto (Urine sed) [#/Area] 1-2 [HPF] 0-2 [facility] Epithelial cells.squamous Auto (Urine sed) [#/Area] Epithelial cells.squamous [#/area] in Urine sediment by Automated count 0-2 [facility] Erythrocyte distribution wid th Auto (RBC) [Ratio]Ordered By: John Cortes on 12-11-2023 Erythrocyte distribution width (RBC) [Ratio] 14.1 % 11.9-15.3 [facility] Erythrocyte distribution width (RBC) [Ratio] Erythrocyte distribution width [Ratio] by Automated count 11.9-15.3 [facility] Erythrocytes [#/area] in Uri ne sediment by Automated countOrdered By: John Cortes on 12-11-2023 RBC Auto (Urine sed) [#/Area] 3-4 [HPF] 0-4 [facility] RBC Auto (Urine sed) [#/Area] Erythrocytes [#/area] in Urine sediment by Automated count 0-4 [facility] Globulin Calc (S) [Mass/Vol] Ordered By: John Cortes on 12-11-2023 Globulin (S) [Mass/Vol] 3.0 g/dL [facility] Globulin (S) [Mass/Vol] Serum globulin measurement by calculation (mass/volume) [facility] Glucose [Mass/volume] in Ser um or PlasmaOrdered By: John Cortes on 12-11-2023 Glucose [Mass/Vol] 112 mg/dL High 70-100 [facility] Glucose [Mass/Vol] Glucose [Mass/volume ] in Serum or Plasma High 70-100 [facility] Glucose [Mass/volume] in Uri ne by Test stripOrdered By: John Cortes on 12-11-2023 Glucose Test strip (U) [Mass/Vol] Normal mg/dL Normal [facility] Glucose Test strip (U) [Mass/Vol] Glucose [Mass/volume] in Urine by Test strip Normal [facility] HCG ( test) IA.rapi d Ql (U)Ordered By: John Cortes on 12-11-2023 HCG ( test) Ql (U) Negative [facility] HCG ( test) Ql (U) Urine human chorionic gonadotropin (hCG) detection by immunoassay [facility] Hematocrit Auto (Bld) [Volum e fraction]Ordered By: John Cortes on 12-11-2023 Hematocrit (Bld) [Volume fraction] 38.6 % 34.0-46.4 [facility] Hematocrit (Bld) [Volume fraction] Hematocrit [Volume Fraction] of Blood by Automated count 34.0-46.4 [facility] Hemoglobin Test strip Ql (U) Ordered By: John Cortes on 12-11-2023 Hemoglobin Ql (U) 2+ High Negative [facility] Hemoglobin Ql (U) Hemoglobin [Presence ] in Urine by Test strip High Negative [facility] Hemoglobin [Mass/volume] in BloodOrdered By: John Cortes on 12-11-2023 Hemoglobin (Bld) [Mass/Vol] 13.3 g/dL 11.8-15.4 [facility] Hemoglobin (Bld) [Mass/Vol] Hemoglobin [Mass/volume] in Blood 11.8-15.4 [facility] Hyaline casts [#/area] in Ur ine sediment by Automated countOrdered By: John Cortes on 12-11-2023 Hyaline casts Auto (Urine sed) [#/Area] None [LPF] 0-8 [facility] Hyaline casts Auto (Urine sed) [#/Area] Hyaline casts [#/area] in Urine sediment by Automated count 0-8 [facility] Ketones Test strip Ql (U)Ord ered By: John Cortes on 12-11-2023 Ketones Ql (U) Negative Negative [facility] Ketones Ql (U) Ketones [Presence] i n Urine by Test strip Negative [facility] Leukocyte esterase [Presence ] in Urine by Test stripOrdered By: John Cortes on 12-11-2023 Leukocyte esterase Test strip Ql (U) Negative Negative [facility] Leukocyte esterase Test strip Ql (U) Leukocyte esterase [Presence] in Urine by Test strip Negative [facility] Leukocytes [#/area] in Urine sediment by Automated countOrdered By: John Cortes on 12-11-2023 WBC Auto (Urine sed) [#/Area] 1-2 [HPF] 0-4 [facility] WBC Auto (Urine sed) [#/Area] Leukocytes [#/area] in Urine sediment by Automated count 0-4 [facility] Leukocytes [#/volume] correc jacki for nucleated erythrocytes in Blood by Automated counOrdered By: John Cortes on 12-11-2023 WBC corrected for nucl RBC Auto (Bld) [#/Vol] 8.9 10*3/uL 3.8-11.6 [facility] WBC corrected for nucl RBC Auto (Bld) [#/Vol] Leukocytes [#/volume] corrected for nucleated erythrocytes in Blood by Automated coun 3.8-11.6 [facility] Lipase [Enzymatic activity/v olume] in Serum or PlasmaOrdered By: John Cortes on 12-11-2023 Lipase [Catalytic activity/Vol] 93.0 U/L High 11.0-82.0 [facility] Lipase [Catalytic activity/Vol] Lipase [Enzymatic activity/volume] in Serum or Plasma High 11.0-82.0 [facility] Lymphocytes Auto (Bld) [#/Vo l]Ordered By: John Cortes on 12-11-2023 Lymphocytes (Bld) [#/Vol] 3.8 10*3/uL 1.00-4.8 [facility] Lymphocytes (Bld) [#/Vol] Lymphocytes [#/volume] in Blood by Automated count 1.00-4.8 [facility] Lymphocytes/100 WBC Auto (Bl d)Ordered By: John Cortes on 12-11-2023 Lymphocytes/100 WBC (Bld) 43.0 % . [facility] Lymphocytes/100 WBC (Bld) Lymphocytes/100 leukocytes in Blood by Automated count . [facility] MCH Auto (RBC) [Entitic mass ]Ordered By: John Cortes on 12-11-2023 MCH (RBC) [Entitic mass] 30.4 pg 24.7-34.3 [facility] MCH (RBC) [Entitic mass] MCH [Entitic ma ss] by Automated count 24.7-34.3 [facility] MCHC Auto (RBC) [Mass/Vol]Or dered By: John Cortes on 12-11-2023 MCHC (RBC) [Mass/Vol] 34.3 g/dL 32.0-35.0 [facility] MCHC (RBC) [Mass/Vol] MCHC [Mass/volume] by Automated count 32.0-35.0 [facility] MCV Auto (RBC) [Entitic vol] Ordered By: John Cortes on 12-11-2023 MCV (RBC) [Entitic vol] 88.6 fL 80-100 [facility] MCV (RBC) [Entitic vol] MCV [Entitic vol ume] by Automated count 80-100 [facility] Monocyte distribution width [Entitic volume] in Blood by AutomatedOrdered By: John Cortes on 12-11-2023 Monocyte distribution width Auto (Bld) [Entitic vol] 18.21 % 0.00-20.00 [facility] Monocyte distribution width Auto (Bld) [Entitic vol] Monocyte distribution width [Entitic volume] in Blood by Automated 0.00-20.00 [facility] Monocytes Auto (Bld) [#/Vol] Ordered By: John Cortes on 12-11-2023 Monocytes (Bld) [#/Vol] 0.6 10*3/uL 0.0-0.8 [facility] Monocytes (Bld) [#/Vol] Automated blood monocyte count 0.0-0.8 [facility] Monocytes/100 WBC Auto (Bld) Ordered By: John Cortes on 12-11-2023 Monocytes/100 WBC (Bld) 7.1 % . [facility] Monocytes/100 WBC (Bld) Automated monocyte % . [facility] Mucus [Presence] in Urine by AutomatedOrdered By: John Cortes on 12-11-2023 Mucus Auto Ql (U) Rare [LPF] [facility] Mucus Auto Ql (U) Mucus [Presence] in Urine by Automated [facility] Neutrophils Auto (Bld) [#/Vo l]Ordered By: John Cortes on 12-11-2023 Neutrophils (Bld) [#/Vol] 4.0 10*3/uL 1.8-7.7 [facility] Neutrophils (Bld) [#/Vol] Neutrophils [#/volume] in Blood by Automated count 1.8-7.7 [facility] Neutrophils/100 WBC Auto (Bl d)Ordered By: John Cortes on 12-11-2023 Neutrophils/100 WBC (Bld) 44.7 % . [facility] Neutrophils/100 WBC (Bld) Automated neutrophil % . [facility] Nitrite Test strip Ql (U)Ord ered By: John Cortes on 12-11-2023 Nitrite Ql (U) Negative Negative [facility] Nitrite Ql (U) Nitrite [Presence] i n Urine by Test strip Negative [facility] No Panel InformationOrdered By: John Cortes on 12-11-2023 > 60.0 mL/Min [facility] 109.53 [facility] Nucleated erythrocytes [Pres ence] in Blood by Automated countOrdered By: John Cortes on 12-11-2023 Nucleated RBC Auto Ql (Bld) 0.0 /100{WBC} 0-0.5 [facility] Nucleated RBC Auto Ql (Bld) Nucleated erythrocytes [Presence] in Blood by Automated count 0-0.5 [facility] Platelet mean volume Auto (B ld) [Entitic vol]Ordered By: John Cortes on 12-11-2023 Platelet mean volume (Bld) [Entitic vol] 8.0 fL 6.3-10.7 [facility] Platelet mean volume (Bld) [Entitic vol] Platelet mean volume [Entitic volume] in Blood by Automated count 6.3-10.7 [facility] Platelets Auto (Bld) [#/Vol] Ordered By: John Cortes on 12-11-2023 Platelets (Bld) [#/Vol] 436 10*3/uL 150-450 [facility] Platelets (Bld) [#/Vol] Platelets [#/vol ume] in Blood by Automated count 150-450 [facility] Potassium [Moles/volume] in Serum or PlasmaOrdered By: John Cortes on 12-11-2023 Potassium [Moles/Vol] 3.6 mmol/L 3.5-5.1 [facility] Potassium [Moles/Vol] Potassium [Moles/volume] in Serum or Plasma 3.5-5.1 [facility] Protein Test strip (U) [Mass /Vol]Ordered By: John Cortes on 12-11-2023 Protein (U) [Mass/Vol] Negative Negative [facility] Protein (U) [Mass/Vol] Protein [Mass/vol ume] in Urine by Test strip Negative [facility] Protein [Mass/volume] in Ser um or PlasmaOrdered By: John Cortes on 12-11-2023 Protein [Mass/Vol] 7.5 g/dL 6.4-8.9 [facility] Protein [Mass/Vol] Protein [Mass/volume ] in Serum or Plasma 6.4-8.9 [facility] RBC Auto (Bld) [#/Vol]Ordere d By: John Cortes on 12-11-2023 RBC (Bld) [#/Vol] 4.36 10*6/uL 3.60-5.00 [facility] RBC (Bld) [#/Vol] Erythrocytes [#/volume] in Blood by Automated count 3.60-5.00 [facility] Serum or plasma albumin/glob ulin mass ratioOrdered By: John Cortes on 12-11-2023 Albumin/Globulin [Mass ratio] 1.5 {ratio} [facility] Albumin/Globulin [Mass ratio] Serum or plasma albumin/globulin mass ratio [facility] Serum or plasma anion gap de terminationOrdered By: John Cortes on 12-11-2023 Anion gap [Moles/Vol] 13.3 mmol/L 6.0-15.0 [facility] Anion gap [Moles/Vol] Serum or plasma an ion gap determination 6.0-15.0 [facility] Sodium [Moles/volume] in Ser um or PlasmaOrdered By: John Cortes on 12-11-2023 Sodium [Moles/Vol] 139 mmol/L 136-145 [facility] Sodium [Moles/Vol] Sodium [Moles/volume ] in Serum or Plasma 136-145 [facility] Specific gravity Test strip (U) [Rel density]Ordered By: John Cortes on 12-11-2023 Specific gravity (U) [Rel density] 1.014 1.001-1.030 [facility] Specific gravity (U) [Rel density] Specific gravity of Urine by Test strip 1.001-1.030 [facility] Urea nitrogen [Mass/volume] in Serum or PlasmaOrdered By: John Cortes on 12-11-2023 Urea nitrogen [Mass/Vol] 10 mg/dL 10-23 [facility] Urea nitrogen [Mass/Vol] Urea nitrogen [Mass/volume] in Serum or Plasma 10-23 [facility] Urine appearanceOrdered By: John Cortes on 12-11-2023 Appearance (U) Clear Clear [facility] Urobilinogen Test strip (U) [Mass/Vol]Ordered By: John Cortes on 12-11-2023 Urobilinogen (U) [Mass/Vol] Normal mg/dL Normal [facility] Urobilinogen (U) [Mass/Vol] Urobilinogen [Mass/volume] in Urine by Test strip Normal [facility] WBC Auto (Bld) [#/Vol]Ordere d By: John Cortes on 12-11-2023 WBC (Bld) [#/Vol] 8.9 10*3/uL 3.8-11.6 [facility] WBC (Bld) [#/Vol] Leukocytes [#/volume ] in Blood by Automated count 3.8-11.6 [facility] pH Test strip (U)Ordered By: John Cortes on 12-11-2023 pH (U) 5.5 [pH] 5.0-9.0 [facility] pH (U) pH of Urine by Test strip 5.0-9.0 [facility] BMPon 12-08-2023 Anion gap [Moles/Vol] 15 mmol/L Normal 6-16 [facility] Comment on above: Performed By: #### 2 [id number] #### [facility] [address] [place] [address] Calcium [Mass/Vol] 9.5 mg/dL Normal 8.9-11.1 [facility] Comment on above: Performed By: #### 2 [id number] #### [facility] [address] [place] [address] Chloride [Moles/Vol] 103 mmol/L Normal 101-111 [facility] Comment on above: Performed By: #### 2 [id number] #### [facility] [address] [place] [address] CO2 [Moles/Vol] 25 mmol/L Normal 21-31 [facility] Comment on above: Performed By: #### 2 [id number] #### [facility] [address] [place] [address] Creatinine [Mass/Vol] 0.7 mg/dL Normal 0.5-1.3 [facility] Comment on above: Performed By: #### 2 [id number] #### [facility] [address] [place] [address] Glucose [Mass/Vol] 111 mg/dL Normal 55-199 [facility] Comment on above: Performed By: #### 2 [id number] #### [facility] [address] [place] [address] Potassium [Moles/Vol] 4.6 mmol/L Normal 3.5-5.3 [facility] Comment on above: Performed By: #### 2 [id number] #### [facility] [address] [place] [address] Sodium [Moles/Vol] 138 mmol/L Normal 135-145 [facility] Comment on above: Performed By: #### 2 [id number] #### [facility] [address] [place] [address] Urea nitrogen [Mass/Vol] 11 mg/dL Normal 5-21 [facility] Comment on above: Performed By: #### 2 [id number] #### [facility] [address] [place] [address] Urea nitrogen/Creatinine [Mass ratio] 16 No Units Normal 10-20 [facility] Comment on above: Performed By: #### 2 [id number] #### [facility] [address] [place] [address] CBC w/ Auto Diffon 4 Basophils/100 WBC (Bld) 1.2 % Normal 0.0-2.0 [facility] Comment on above: Performed By: #### 2 [id number] #### [facility] [address] [place] [address] Basophils/Leukocytes Auto (Bld) [Pure # fraction] 0.1 E9/L Normal 0.0-0.2 [facility] Comment on above: Performed By: #### 2 [id number] #### [facility] [address] [place] [address] Eosinophils (Bld) [#/Vol] 0.4 E9/L Normal 0.0-0.5 [facility] Comment on above: Performed By: #### 2 [id number] #### [facility] [address] [place] [address] Eosinophils/100 WBC (Bld) 4.8 % Normal 0.0-8.0 [facility] Comment on above: Performed By: #### 2 [id number] #### [facility] [address] [place] [address] Erythrocyte distribution width (RBC) [Ratio] 14.4 % High 10.9-14.2 [facility] Comment on above: Performed By: #### 2 [id number] #### [facility] [address] [place] [address] Hematocrit (Bld) [Volume fraction] 39.9 % Normal 34.0-46.0 [facility] Comment on above: Performed By: #### 2 [id number] #### [facility] [address] [place] [address] Hemoglobin (Bld) [Mass/Vol] 14.2 g/dL Normal 12.0-16.0 [facility] Comment on above: Performed By: #### 2 [id number] #### [facility] [address] [place] [address] Lymphocytes (Bld) [#/Vol] 3.0 E9/L Normal 1.0-4.0 [facility] Comment on above: Performed By: #### 2 [id number] #### [facility] [address] [place] [address] Lymphocytes/100 WBC (Bld) 34.8 % Normal 14.0-50.0 [facility] Comment on above: Performed By: #### 2 [id number] #### [facility] [address] [place] [address] MCH (RBC) [Entitic mass] 31.3 pg Normal 27.0-34.0 [facility] Comment on above: Performed By: #### 2 [id number] #### [facility] [address] [place] [address] MCHC (RBC) [Mass/Vol] 35.6 g/dL Normal 31.4-36.0 [facility] Comment on above: Performed By: #### 2 [id number] #### [facility] [address] [place] [address] MCV (RBC) [Entitic vol] 88.0 fL Normal 80.0-100.0 [facility] Comment on above: Performed By: #### 2 [id number] #### [facility] [address] [place] [address] Monocytes (Bld) [#/Vol] 0.5 E9/L Normal 0.2-1.0 [facility] Comment on above: Performed By: #### 2 [id number] #### [facility] [address] [place] [address] Neutrophils (Bld) [#/Vol] 4.6 E9/L Normal 2.0-7.5 [facility] Comment on above: Performed By: #### 2 [id number] #### [facility] [address] [place] [address] Neutrophils/100 WBC (Bld) 53.3 % Normal 36.0-75.0 [facility] Comment on above: Performed By: #### 2 [id number] #### [facility] [address] [place] [address] Platelet 473.0 E9/L Normal 150.0-500.0 [facility] Comment on above: Performed By: #### 2 [id number] #### [facility] [address] [place] [address] Platelet mean volume (Bld) [Entitic vol] 8.1 fL Normal 6.4-10.8 [facility] Comment on above: Performed By: #### 2 [id number] #### [facility] [address] [place] [address] RBC (Bld) [#/Vol] 4.5 E12/L Normal 4.3-5.9 [facility] Comment on above: Performed By: #### 2 [id number] #### [facility] [address] [place] [address] WBC corrected for nucl RBC Auto (Bld) [#/Vol] 8.7 E9/L Normal 4.0-11.0 [facility] Comment on above: Performed By: #### 2 [id number] #### [facility] [address] [place] [address] CHEMISTRYOrdered By: Tanvir diaz on 12-08-2023 Troponin HS 4.90 pg/mL Low 10.10 - 27.10 pg/mL [facility] Comment on above: Interpretive Data: T he 95% CI (Confidence Interval) PPV (Positive Predictive Value) for myocardial infarction in females is 38 pg/mL, in males 51 pg/mL. The results should be used in conjunction with clinical conditions of myocardial infarction. ([facility] High Sensitivity Troponin I Instructions For Use, Sapna Steven, October 2017) CHEMISTRYOrdered By: SYSTEM SYSTEM on 12-08-2023 Anion gap [Moles/Vol] 15 mmol/L Normal 6 - 16 mEq/L [facility] Calcium [Mass/Vol] 9.5 mg/dL Normal 8.9 - 11. 1 mg/dL [facility] Chloride [Moles/Vol] 103 mmol/L Normal 101 - 1 11 mmol/L [facility] CO2 [Moles/Vol] 25 mmol/L Normal 21 - 31 mmol/L [facility] Creatinine [Mass/Vol] 0.7 mg/dL Normal 0.5 - 1.3 mg/dL [facility] eGFR 105 mL/min/1.73 m2 Normal >=59mL/mi n/ 1.73 m2 [facility] Glucose [Mass/Vol] 111 mg/dL Normal 55 - 199 mg/dL [facility] Lipase [Catalytic activity/Vol] 96 U/L High 13 - 58 unit/L [facility] Magnesium [Mass/Vol] 1.9 mg/dL Normal 1.3 - 2 .4 mg/dL [facility] Potassium [Moles/Vol] 4.6 mmol/L Normal 3.5 - 5.3 mmol/L [facility] Sodium [Moles/Vol] 138 mmol/L Normal 135 - 145 mmol/L [facility] Troponin HS 4.50 pg/mL Low 10.10 - 27.10 pg/mL [facility] Comment on above: Interpretive Data: T he 95% CI (Confidence Interval) PPV (Positive Predictive Value) for myocardial infarction in females is 38 pg/mL, in males 51 pg/mL. The results should be used in conjunction with clinical conditions of myocardial infarction. ([facility] High Sensitivity Troponin I Instructions For Use, Sapna Steven, October 2017) Urea nitrogen [Mass/Vol] 11 mg/dL Normal 5 - 21 mg/dL [facility] Urea nitrogen/Creatinine [Mass ratio] 16 mg/mg Normal 10 - 20 [facility] COAGULATIONOrdered By: Tanvir An on 12-08-2023 aPTT Coag (PPP) [Time] 42.5 s High 25.1 - 36.5 second(s) [facility] Comment on above: Interpretive Data: P arameter 15 days - 4 weeks 1 - 5 months 6 - 11 months 1 - 5 years 6 - 10 years 11 - 17 years PTT Mean: 35.4 (27.6-45.6) Mean: 33.5 (24.8-40.7) Mean: 32.4 (25.1-40.7) Mean: 31.6 (24.0-39.2) Mean: 31.6 (26.9-38.7) Mean: 31.0 (24.6-38.4) Pediatric Reference ranges were obtained from a study by Scott Cates et al. prepared from 1437 samples obtained at 7 different centers using the same coagulation reagent and instrumentation as [facility]. Currently there are no coagulation studies available worldwide for children to 14 days, and no normal ranges. Heparin therapeutic range (represented by Anti-Factor Xa activity of 0.2 - 0.4 U/mL) corresponds to PTT of 56.6 - 109.0 sec. INR Coag (PPP) [Relative time] 0.96 {INR} Invalid Interpretation Code [facility] Comment on above: Interpretive Data: I NR results are specifically intended to assess patients stabilized on long-term Anticoagulation therapy suggested INR s Less Intensive Anticoagulation 2.0 3.0 Conventional Range 3.0 4.5 PT Coag (PPP) [Time] 10.7 s Normal 9.4 - 1 2.5 second(s) [facility] Comment on above: Interpretive Data: 1 5 days - 4 weeks 1 - 5 months 6 -11 months 1 5 years 6 10 years 11 -17 years Mean: 11.2 (9.5 12.6) Mean: 11.0 (9.7 12.8) Mean: 11.0 (9.8 13.0) Mean: 11.3 (9.9 13.4) Mean: 11.7 (10.0 14.6) Mean: 11.8 (10.0 - 14.1) Pediatric Reference ranges were obtained from a study by Scott Cates et al. prepared from 1437 samples obtained at 7 different centers using the same coagulation reagent and instrumentation as [facility]. Currently there are no coagulation studies available worldwide for children to 14 days, and no normal ranges. ED Clinical Summaryon 2023 ED Clinical Summary ED Clinical Summary [place] [id number] ED Clinical Summary Person Information Name: GIOVANNA STREETER [facility] Age: 48 Years : 1975 Sex: Female Language: Comoran PCP: REBECCA NAVAS CNP Marital Status: Visit Id: Visit Reason: Anxiety; Shortness of breath; Chest pain; CHEST PAIN Speciality: Acuity: 3 Enc Type: Emergency Med Service: Emergency Arrival: 12/08/2023 03:10:23 Discharge: 12/08/2023 05:32:30 LOS: 000 02:22 Checkin: 12/08/2023 03:10:23 Checkout: 12/08/2023 05:32:30 Dispo Type: Home (Routine DC) EVENTS: Event Name Event Status Request Date/Time Start Date/Time Complete Date/Time Arrive Complete 12/08/2023 03:10:23 12/08/2023 03:10:23 12/08/2023 03:10:23 Document Home Meds Request 12/08/2023 03:10:23 Triage Complete 12/08/2023 03:10:23 12/08/2023 03:21:15 12/08/2023 03:21:15 Dr Exam Complete 12/08/2023 03:11:38 12/08/2023 03:11:38 12/08/2023 03:11:38 Registration Start 12/08/2023 03:11:38 12/08/2023 03:13:11 EKG Complete 12/08/2023 03:11:42 12/08/2023 03:17:23 Bed Assign Complete 12/08/2023 03:13:11 12/08/2023 03:13:11 12/08/2023 03:13:11 RN Exam Complete 12/08/2023 03:13:11 12/08/2023 03:22:35 12/08/2023 03:22:35 Pending Labs Complete 12/08/2023 03:21:58 12/08/2023 05:22:13 Lab Complete 12/08/2023 03:21:58 12/08/2023 04:15:00 Meds Admin Complete 12/08/2023 03:21:58 12/08/2023 03:35:10 Patient Care Request 12/08/2023 03:21:58 RT Request 12/08/2023 03:21:58 X-Ray Complete 12/08/2023 03:21:58 12/08/2023 03:42:22 12/08/2023 03:48:57 Pending Labs Complete 12/08/2023 03:43:37 12/08/2023 03:43:37 12/08/2023 04:15:00 Lab Complete 12/08/2023 03:43:37 12/08/2023 03:43:37 12/08/2023 04:15:00 Wet Read Request 12/08/2023 03:48:57 Discharge Complete 12/08/2023 05:24:45 12/08/2023 05:32:34 12/08/2023 05:32:34 Transfer Complete 12/08/2023 05:32:34 12/08/2023 05:32:34 12/08/2023 05:32:34 ADDRESS: [address] [place] [id number] PHYS DOC NOTES: MEDICAL INFORMATION: Prescriptions Given: New Medications [facility] [id number], [address] [place] [id number], [phone] omeprazole (omeprazole 20 mg Cap-DR) 1 Capsules By Mouth every day. Refills: 0. Medications to Continue with No Changes Other Medications acetaminophen-hydrocod one ([place] 325 mg-5 mg oral tablet) 1 Tablets By Mouth every 4 hours as needed for pain. Refills: 0. APAP/butalbital/caffei ne (APAP/butalbital/caffe ine 325 mg-50 mg-40 mg Tab) 2 Tablets By Mouth every 6 hours as needed for headache. Refills: 0. atorvastatin (atorvastatin 20 mg Tab) 1 Tablets By Mouth every day. azithromycin (azithromycin 250 mg Tab) 250 Milligram By Mouth As Directed. Refills: 0. brompheniramine/dextro methorphan/PSE (Bromfed DM oral syrup) 5 Milliliter By Mouth 4 times a day as needed for cough and congestion. Refills: 0. brompheniramine/dextro methorphan/PSE (Bromfed DM oral syrup) 5 Milliliter By Mouth 4 times a day as needed for cough and congestion. Refills: 0. cyclobenzaprine (cyclobenzaprine 10 mg Tab) 1 Tablets By Mouth 3 times a day as needed Muscle pain. Refills: 0. lisinopril 20 Milligram By Mouth every day. meclizine (meclizine 25 mg Tab) 1 Tablets By Mouth 3 times a day as needed for dizziness. Refills: 0. naproxen (Naprosyn 500 mg Tab) 1 Tablets By Mouth 2 times a day as needed for pain. Refills: 0. naproxen (Naprosyn 500 mg Tab) 1 Tablets By Mouth 2 times a day as needed for pain. Refills: 0. naproxen (Naprosyn 500 mg Tab) 1 Tablets By Mouth 2 times a day as needed for pain. Refills: 0. naproxen (naproxen 500 mg oral enteric coated tablet) 1 Tablets By Mouth 2 times a day as needed Pain. Refills: 0. naproxen (naproxen 500 mg Tab) 1 Tablets By Mouth 2 times a day as needed Pain. Refills: 0. ondansetron (ondansetron 4 mg Dis Tab) 1 Tablets By Mouth every 6 hours as needed Nausea/Vomiting. Refills: 0. ondansetron (Zofran ODT 4 mg Tab-Dis) 1 Tablets By Mouth every 8 hours as needed Nausea/Vomiting. Refills: 0. ondansetron (Zofran ODT 4 mg Tab-Dis) 1 Tablets By Mouth every 8 hours as needed Nausea/Vomiting. Refills: 0. ondansetron (Zofran ODT 4 mg Tab-Dis) 1 Tablets By Mouth every 8 hours. Refills: 0. predniSONE (predniSONE 20 mg Tab) 1 Tablets By Mouth As Directed. take two tabs daily for 5 days, then one tab daily for 5 days.. Refills: 0. PATIENT EDUCATION INFORMATION: Instructions: Nonspecific Chest Pain, Adult, [id number] Follow up: With: Address: When: REBECCA NAVAS [address] [place] [address] In 3 days 12/11/2023 Comments: Take the omeprazole once daily until you completed the course. Please follow-up with your primary care doctor for further evaluation and management. Please return to the ED for any new worsening symptoms. DIAGNOSIS: Chest pain Normal [facility] ED Note-Physicianon 12-08-19 ED Note-Physician ED Note-Physician Basic Information Time Seen: Marshall Henriquez DO 12/08/2023 03:11 Chief Complaint pt to ED with c/o CP and SOB that awoke her from her sleep. states 10/10 CP with no radiation. denies PMH. pt states here with same complaint a few times. pt restless and anxious in triage. denies anxiety. History of Present Illness Patient is a 48-year-old female with past medical history of hypertension presenting to the ED for evaluation of chest pain, shortness of breath and feeling something is stuck in her throat. Patient states pain started approximately 1 hour ago, feels like there is intermittent squeezing on her chest. Has associated shortness of breath feeling like she cannot take a deep breath. Also states she has associated nausea. Patient denies any fevers, chills, recent illness. Review of Systems A 10 point review of systems is negative except as noted above. Medical and Surgical History: Reviewed and noted Social history: Lives at home Tobacco: Denies Physical Exam Vitals & Measurements T: 36.8 ?C(Oral) HR: 81(Peripheral) RR: 20 BP: 179/102 SpO2: 100% HT: 160 cm WT: 93.3 kg BMI: 36.45 General: Well developed, non toxic appearing, no acute distress HEENT: Head atraumatic, Mucosa moist, hearing grossly normal Neck: No JVD, tracheal deviation Cardiac: Regular rate, rhythm, no murmurs, or gallops, 2+ radial pulses Respiratory: Lungs clear to auscultation B/L, normal respiratory effort Abdomen: Soft non tender, no rebound or guarding, no peritoneal signs Extremities: No edema noted in the LE B/L, no tenderness to palpation Neurologic: Alert and oriented, speech clear Skin: No rashes or lesions Psych: Flat affect, anxious Medical Decision Making MEDICAL DECISION MAKING Number and Complexity of Problems Differential Diagnosis: [] [facility] Data External documents reviewed: [] My EKG interpretation: [] My CT interpretation: [] My X-ray interpretation: [] My Ultrasound interpretation: [] Decision rules/scores evaluated: Heart Score for Major Cardiac Event History: Example factors for history - pattern of chest pain, onset, duration, relation with exercise, stress or cold, localization, concominant symptoms. reaction to sublingual nitrates, [] Highly suspicious +2 [] Moderately suspicious +1 [X] Slightly suspicious 0 EKG: [] Significant ST-Depression +2 [] Non specific repolarization disturbance +1 [X] Normal 0 Age: [] >= 65 +2 [X] 45-65 + 1 [] <45 0 Risk Factors: (HLD, HTN, DM, Cigarette Smoking, Pos Family Hx, Obesity) [] >3 risk factors or hx of atheroslerotic disease + 2 [X] 1-2 risk factors + 1 [] No risk factors known 0 Troponin: [] >= 3X normal + 2 [] 1-3X normal + 1 [X] <= Normal 0 [X] 0-3 Points 0.9 - 1.7% risk of major adverse cardiac event in 6 weeks [] 4-6 Points 12-16.6% risk of major adverse cardiac event in 6 weeks [] 7-10 Points 50-65% risk of major adverse cardiac event in 6 weeks [X] 0-3 Points with 2 sets of negative cardiac markers <1% risk of major adverse cardiac event in 30 days. Discussed with: [] Treatment and Disposition ED Course: [Patient is a 48-year-old female presenting to the ED for evaluation of chest pain, shortness of breath. Patient is nontoxic and on arrival, no acute distress. EKG without any acute abnormalities. Cardiac workup is obtained patient is given Toradol, GI cocktail in addition to Zofran as a please there is likely a GI component to her symptoms. Patient's laboratory evaluation is unremarkable, troponins are negative x 2, I have low concern for ACS with 2 negative troponins and a heart score less than 3. On reevaluation patient is sleeping does state her symptoms have improved. Patient's discharged home with started on omeprazole. She has a follow-up with her primary care doctor next 2 to 3 days. She is return to the ED for any worsening symptoms. Shared decision making: [] Code status: [] Assessment/Plan Chest pain (R07.9: Chest pain, unspecified) Orders: Al hydroxide/Mg hydroxide/simethicone, 30 mL, Susp-Oral, Oral, Once, Stop date 12/08/23 3:21:00 EDT, STAT, Start date 12/08/23 3:21:00 EDT aspirin, 162 mg = 2 tab(s), Tab-Chew, Oral, Once, Stop date 12/08/23 3:21:00 EDT, STAT, Start date 12/08/23 3:21:00 EDT, 12/08/23 3:21:00 EDT atropine/hyoscyamine/P B/scopolamine, 10 mL, Elixir, Oral, Once, Stop date 12/08/23 3:21:00 EDT, STAT, Start date 12/08/23 3:21:00 EDT ketorolac, 30 mg = 1 mL, Injection, IV Push, Once, Stop date 12/08/23 3:21:00 EDT, STAT, Start date 12/08/23 3:21:00 EDT, 12/08/23 3:21:00 EDT lidocaine topical, 200 mg, 10 mL, Soln-Oral, Oral, Once, Stop date 12/08/23 3:21:00 EDT, STAT, Start date 12/08/23 3:21:00 EDT omeprazole, 20 mg = 1 cap(s), Oral, Daily, # 14 tab(s), Refills( (more content not included)... Normal [facility] Comment on above: Result Comment: Elec tronically Signed By: Marshall Henriquez DO\.br\Date and Time Signed: 12/08/23 05:25 EDT ED Patient Summaryon 024 ED Patient Summary ED Patient Summary [place] [id number] Patient Discharge Instructions Person Information Name: GIOVANNA STREETER Age: 48 Years Arrival Date: 12/08/2023 03:10:23 Discharge Diagnosis: Chest pain Primary Care Physician: REBECCA NAVAS CNP Provider Information Primary Provider: Marshall Henriquez DO Advanced Cigarette Lighter Repairer:None The exam and treatment you received in the Emergency Department were for an urgent problem and are not intended as complete care. It is important that you follow up with a doctor, nurse practitioner, or physician?s medical assistant float for ongoing care. If your symptoms become worse or you do not improve as expected and you are unable to reach your usual health care provider, you should return to the Emergency Department. We are available 24 hours a day. GIOVANNA STREETER has been given the following list of patient education materials, prescriptions and follow-up instructions: Follow-up Instructions: With: Address: When: REBECCA NAVAS [address] [place] [address] In 3 days 12/11/2023 Comments: Take the omeprazole once daily until you completed the course. Please follow-up with your primary care doctor for further evaluation and management. Please return to the ED for any new worsening symptoms. In the event that this physician does not participate in your insurance network, please consult with your insurance company to find a nearby participating provider. Patient Education Materials: Nonspecific Chest Pain, Adult, Lbga-ty-Khmn A MESSAGE TO ALL PATIENTS REGARDING OPIOIDS PRESCRIPTION OPIOIDS: WHAT YOU NEED TO KNOW Prescription opioids can be used to help relieve mdvvmkao-rl-fobxss pain and are often prescribed following a surgery or injury, or for certain health conditions. These medications can be an important part of the treatment but also come with serious risks. It is important to work with your healthcare provider to make sure you are getting the safest, most effective care. WHAT ARE THE RISKS AND SIDE EFFECTS OF OPIOID USE? Prescription opioids carry serious risks of addiction and overdose, especially with prolonged use. An opioid overdose, often marked by slowed breathing, can cause sudden . The use of prescription opioids can have a number of side effects as well, even when taken as directed: ? Tolerance?meaning you might need to take more of the medication for the same pain relief ? Physical dependence?meaning you have symptoms of withdrawal when a medication is stopped ? Increased sensitivity to pain ? Constipation ? Nausea, vomiting, and dry mouth ? Sleepiness and dizziness ? Confusion ? Depression ? Low levels of testosterone that can result in lower sex drive, energy, and strength ? Itching and sweating RISKS ARE GREATER WITH: ? History of drug misuse, substance use disorder, or overdose ? Mental health conditions (such as depression or anxiety) ? Sleep apnea ? Older age (65 years and older) ? Avoid alcohol while taking prescription opioids. Also, unless specifically advised by your health care provider, medications to avoid include: ? Benzodiazepines (such as Xanax or Valium) ? Muscle relaxants (such as Soma or Flexeril) ? Hypnotics (such as Ambien or Lunesta) ? Other prescription opioids KNOW YOUR OPTIONS Talk to your health care provider about ways to manage your pain that don?t involve prescription opioids. Some of these options may actually work better and have fewer risks and side effects. Options may include: ? Pain relievers such as acetaminophen, ibuprofen, and naproxen ? Some medication that are also used for depression or seizures ? Physical therapy and exercise ? Cognitive behavioral therapy, a psychological, goal-directed approach, in which patients learn how to modify physical, behavioral, and emotional triggers of pain and stress. IF YOU ARE PRESCRIBED OPIOIDS FOR PAIN: ? Never take opioids in greater amounts or more often than prescribed. ? Follow up with your primary health care provider. o Work together to create a plan on how to manage your pain. o Talk about ways to help manage your pain that don?t involve prescription opioids. o Talk about any and all concerns and side effects. ? Help prevent misuse and abuse o Never sell or share prescription opioids. o Never use another person?s prescription opioids. ? Store prescription opioids in a secure place and out of reach of others (this may include visitors, children, friends, and family). ? Safely dispose of unused prescription opioids: Find your community drug take-back program or your pharmacy mail-back program, or flush them down the toilet, following guidance from the Food and Drug Administration (www.fda.gov/Drugs/Res ourcesForYou). ? Visit www.cdc.gov/drugoverdo se to learn about the risks of opioids abu (more content not included)... Normal [facility] HEMATOLOGYOrdered By: SYSTEM SYSTEM on 12-08-2023 Basophils/100 WBC (Bld) 1.2 % Normal 0.0 - 2.0 % Remisol Heme Basophils/Leukocytes Auto (Bld) [Pure # fraction] 0.1 E9/L Normal 0.0 - 0.2 E9/L Remisol Heme Eosinophils (Bld) [#/Vol] 0.4 E9/L Normal 0.0 - 0.5 E9/L Remisol Heme Eosinophils/100 WBC (Bld) 4.8 % Normal 0.0 - 8.0 % Remisol Heme Erythrocyte distribution width (RBC) [Ratio] 14.4 % High 10.9 - 14.2 % Remisol Heme Hematocrit (Bld) [Volume fraction] 39.9 % Normal 34.0 - 46.0 % Remisol Heme Hemoglobin (Bld) [Mass/Vol] 14.2 g/dL Normal 12.0 - 16.0 gm/dL Remisol Heme Lymphocytes (Bld) [#/Vol] 3.0 E9/L Normal 1.0 - 4.0 E9/L Remisol Heme Lymphocytes/100 WBC (Bld) 34.8 % Normal 14.0 - 50.0 % Remisol Heme MCH (RBC) [Entitic mass] 31.3 pg Normal 27. 0 - 34.0 pg Remisol Heme MCHC (RBC) [Mass/Vol] 35.6 g/dL Normal 31.4 - 36.0 gm/dL Remisol Heme MCV (RBC) [Entitic vol] 88.0 fL Normal 80.0 - 100.0 fL Remisol Heme Monocytes (Bld) [#/Vol] 0.5 E9/L Normal 0.2 - 1.0 E9/L Remisol Heme Monocytes/100 WBC (Bld) 5.9 % Normal 4.0 - 14.0 % Remisol Heme Neutrophils (Bld) [#/Vol] 4.6 E9/L Normal 2.0 - 7.5 E9/L Remisol Heme Neutrophils/100 WBC (Bld) 53.3 % Normal 36.0 - 75.0 % Remisol Heme Platelet 473.0 E9/L Normal 150.0 - 500.0 E9/L Remisol Heme Platelet mean volume (Bld) [Entitic vol] 8.1 fL Normal 6.4 - 10.8 fL Remisol Heme RBC (Bld) [#/Vol] 4.5 E12/L Normal 4.3 - 5.9 E12/L Remisol Heme WBC corrected for nucl RBC Auto (Bld) [#/Vol] 8.7 E9/L Normal 4.0 - 11.0 E9/L Rem[facility] Heme Lipase Levelon 12-08-2023 Lipase [Catalytic activity/Vol] 96 U/L High 13-58 [facility] Comment on above: Performed By: #### 2 [id number] #### [facility] [address] [place] [address] Magnesiumon 12-08-2023 Magnesium [Mass/Vol] 1.9 mg/dL Normal 1.3-2.4 [facility] Comment on above: Performed By: #### 2 [id number] #### [facility] [address] [place] [address] PT & PTTon 12-08-2023 aPTT Coag (PPP) [Time] 42.5 second(s) High 25.1-36.5 [facility] Comment on above: Result Comment: Para meter 15 days - 4 weeks 1 - 5 months 6 - 11 months 1 - 5 years 6 - 10 years 11 - 17 years PTT Mean: 35.4 (27.6-45.6) Mean: 33.5 (24.8-40.7) Mean: 32.4 (25.1-40.7) Mean: 31.6 (24.0-39.2) Mean: 31.6 (26.9-38.7) Mean: 31.0 (24.6-38.4) Pediatric Reference ranges were obtained from a study by garirson Bolanos al. prepared from 1437 samples obtained at 7 different centers using the same coagulation reagent and instrumentation as [facility]. Currently there are no coagulation studies available worldwide for children to 14 days, and no normal ranges. Heparin therapeutic range (represented by Anti-Factor Xa activity of 0.2 - 0.4 U/mL) corresponds to PTT of 56.6 - 109.0 sec. Performed By: #### 1 [id number] #### [facility] [address] [place] [address] INR Coag (PPP) [Relative time] 0.96 {INR} Invalid Interpretation Code [facility] Comment on above: Result Comment: INR results are specifically intended to assess patients stabilized on long-term Anticoagulation therapy suggested INR?s ?Less Intensive Anticoagulation? 2.0 ? 3.0 Conventional Range 3.0 ? 4.5 Performed By: #### 1 [id number] #### [facility] [address] [place] [address] PT Coag (PPP) [Time] 10.7 second(s) Normal 9.4-12.5 [facility] Comment on above: Result Comment: 15 d ays - 4 weeks 1 - 5 months 6 -11 months 1 ? 5 years 6 ? 10 years 11 -17 years Mean: 11.2 (9.5 ? 12.6) Mean: 11.0 (9.7 ? 12.8) Mean: 11.0 (9.8 ? 13.0) Mean: 11.3 (9.9 ? 13.4) Mean: 11.7 (10.0 ? 14.6) Mean: 11.8 (10.0 - 14.1) Pediatric Reference ranges were obtained from a study by [place] Bolanos al. prepared from 1437 samples obtained at 7 different centers using the same coagulation reagent and instrumentation as [facility]. Currently there are no coagulation studies available worldwide for children to 14 days, and no normal ranges. Performed By: #### 1 [id number] #### [facility] [address] [place] [address] Troponin 0 Hr.on 12-08-2023 Troponin HS 4.50 pg/mL Low 10.10-27.10 [facility] Comment on above: Result Comment: The 95% CI (Confidence Interval) PPV (Positive Predictive Value) for myocardial infarction in females is 38 pg/mL, in males 51 pg/mL. The results should be used in conjunction with clinical conditions of myocardial infarction. (Access High Sensitivity Troponin I Instructions For Use, [employer], October 2017) Performed By: #### 1 [id number] #### [facility] [address] [place] [address] Troponin 1 Hr.on 12-08-2023 Troponin HS 4.90 pg/mL Low 10.10-27.10 [facility] Comment on above: Order Comment: 0435 Result Comment: The 95% CI (Confidence Interval) PPV (Positive Predictive Value) for myocardial infarction in females is 38 pg/mL, in males 51 pg/mL. The results should be used in conjunction with clinical conditions of myocardial infarction. (Access High Sensitivity Troponin I Instructions For Use, [employer], October 2017) Performed By: #### 1 [id number] #### [facility] [address] [place] [address] XR Chest Single Viewon 12-07 XR Chest Single View Exam Date/Time: 12/08/2023 03:48 EDT Reason for Exam: Chest pain Report IMPRESSION: NO EVIDENCE OF ACTIVE CARDIOPULMONARY DISEASE, BY PORTABLE CHEST RADIOGRAPHY. EXAM: XR Chest Single View DATE: 12/08/2023 3:42 AM CLINICAL HISTORY: Chest pain. COMPARISON: Portable chest 12/01/[address] abdomen and pelvis 01/06/2023. TECHNIQUE: A portable upright AP radiograph of the chest was obtained. FINDINGS: There is no significant pulmonary infiltrate, cardiomegaly, vascular congestion, sizable pleural effusion, pneumothorax, or displaced fractures identified. Ordering Provider: Marshall Henriquez FINAL REPORT Dictated: 12/08/2023 9:04 am Steven Mancia MD Signed (Electronic Signature): 12/08/2023 9:04 am Signed by: Steven Mancia MD Transcribed by: JOE Technologist: ALEAH Technical Comments Radiation Dose: Ka,r in mGy = n/a DAP = n/a Normal [facility] eGFRon 12-08-2023 eGFR 105 mL/min/1.73 m2 Normal >=59 [facility] Comment on above: Order Comment: Order added by Discern Expert. Performed By: #### 1 [id number] #### [facility] [address] [place] [address] Alanine aminotransferase [En zymatic activity/volume] in Serum or PlasmaOrdered By: PROVIDER TEMP on 12-05-2023 ALT [Catalytic activity/Vol] 19 U/L [facility] ALT [Catalytic activity/Vol] Alanine aminotransferase [Enzymatic activity/volume] in Serum or Plasma [facility] Albumin [Mass/volume] in Ser um or Plasma by Bromocresol green (BCG) dye binding methoOrdered By: PROVIDER TEMP on 12-05-2023 Albumin BCG dye [Mass/Vol] 4.5 g/dL 3.5-5.7 [facility] Albumin BCG dye [Mass/Vol] Albumin [Mass/volume] in Serum or Plasma by Bromocresol green (BCG) dye binding metho 3.5-5.7 [facility] Alkaline phosphatase [Enzyma tic activity/volume] in Serum or PlasmaOrdered By: PROVIDER TEMP on 12-05-2023 ALP [Catalytic activity/Vol] 79 U/L [facility] ALP [Catalytic activity/Vol] Alkaline phosphatase [Enzymatic activity/volume] in Serum or Plasma [facility] Appearance of UrineOrdered B y: John Cortes on 12-05-2023 Appearance (U) Urine appearance Clear [facility] Aspartate aminotransferase [ Enzymatic activity/volume] in Serum or PlasmaOrdered By: PROVIDER TEMP on 12-05-2023 AST [Catalytic activity/Vol] 19 U/L [facility] AST [Catalytic activity/Vol] Aspartate aminotransferase [Enzymatic activity/volume] in Serum or Plasma [facility] Bacteria [Presence] in Urine by AutomatedOrdered By: John Cortes on 12-05-2023 Bacteria Auto Ql (U) None seen [HPF] None Seen [facility] Bacteria Auto Ql (U) Bacteria [Presence] in Urine by Automated None Seen [facility] Basophils Auto (Bld) [#/Vol] Ordered By: PROVIDER TEMP on 12-05-2023 Basophils (Bld) [#/Vol] 0.1 10*3/uL 0.0-0.2 [facility] Basophils (Bld) [#/Vol] Automated basoph il count 0.0-0.2 [facility] Basophils/100 WBC Auto (Bld) Ordered By: PROVIDER TEMP on 12-05-2023 Basophils/100 WBC (Bld) 1.2 % . [facility] Basophils/100 WBC (Bld) Automated basophil % . [facility] Bilirubin Test strip Ql (U)O rdered By: John Cortes on 12-05-2023 Bilirubin Ql (U) Negative Negative [facility] Bilirubin Ql (U) Bilirubin.total [Presence] in Urine by Test strip Negative [facility] Bilirubin.direct [Mass/volum e] in Serum or PlasmaOrdered By: PROVIDER TEMP on 12-05-2023 Bilirubin.direct [Mass/Vol] 0.00 mg/dL Low 0.03-0.18 [facility] Bilirubin.direct [Mass/Vol] Bilirubin.direct [Mass/volume] in Serum or Plasma Low 0.03-0.18 [facility] Bilirubin.total [Mass/volume ] in Serum or PlasmaOrdered By: PROVIDER TEMP on 12-05-2023 Bilirubin [Mass/Vol] 0.2 mg/dL Low 0.3-1.0 [facility] Bilirubin [Mass/Vol] Bilirubin.total [Mass/volume] in Serum or Plasma Low 0.3-1.0 [facility] Calcium [Mass/volume] in Ser um or PlasmaOrdered By: PROVIDER TEMP on 12-05-2023 Calcium [Mass/Vol] 9.4 mg/dL 8.6-10.3 [facility] Calcium [Mass/Vol] Calcium [Mass/volume ] in Serum or Plasma 8.6-10.3 [facility] Carbon dioxide, total [Moles /volume] in Serum or PlasmaOrdered By: PROVIDER TEMP on 12-05-2023 CO2 [Moles/Vol] 22.6 mmol/L 21.0-31.0 [facility] CO2 [Moles/Vol] Carbon dioxide, tota l [Moles/volume] in Serum or Plasma 21.0-31.0 [facility] Chloride [Moles/volume] in S jett or PlasmaOrdered By: PROVIDER TEMP on 12-05-2023 Chloride [Moles/Vol] 107 mmol/L 98-107 [facility] Chloride [Moles/Vol] Chloride [Moles/volume] in Serum or Plasma 98-107 [facility] Color Auto (U)Ordered By: Telly Cortes on 12-05-2023 Color (U) Light-yellow Yellow [facility] Color (U) Color of Urine by Auto Yellow [facility] Creatinine [Mass/volume] in Serum or PlasmaOrdered By: PROVIDER TEMP on 12-05-2023 Creatinine [Mass/Vol] 0.60 mg/dL 0.60-1.20 [facility] Creatinine [Mass/Vol] Creatinine [Mass/volume] in Serum or Plasma 0.60-1.20 [facility] Eosinophils Auto (Bld) [#/Vo l]Ordered By: PROVIDER TEMP on 12-05-2023 Eosinophils (Bld) [#/Vol] 0.3 10*3/uL 0.0-0.45 [facility] Eosinophils (Bld) [#/Vol] Automated eosinophil count 0.0-0.45 [facility] Eosinophils/100 WBC Auto (Bl d)Ordered By: PROVIDER TEMP on 12-05-2023 Eosinophils/100 WBC (Bld) 4.2 % . [facility] Eosinophils/100 WBC (Bld) Automated eosinophil % . [facility] Epithelial cells.squamous [# /area] in Urine sediment by Automated countOrdered By: John Cortes on 12-05-2023 Epithelial cells.squamous Auto (Urine sed) [#/Area] N/A [facility] Epithelial cells.squamous Auto (Urine sed) [#/Area] Epithelial cells.squamous [#/area] in Urine sediment by Automated count [facility] Erythrocyte distribution wid th Auto (RBC) [Ratio]Ordered By: PROVIDER TEMP on 12-05-2023 Erythrocyte distribution width (RBC) [Ratio] 14.3 % 11.9-15.3 [facility] [facility] Erythrocyte distribution width (RBC) [Ratio] Erythrocyte distribution width [Ratio] by Automated count 11.9-15.3 [facility] Erythrocytes [#/area] in Uri ne sediment by Automated countOrdered By: John Cortes on 12-05-2023 RBC Auto (Urine sed) [#/Area] 1-2 [HPF] 0-4 [facility] RBC Auto (Urine sed) [#/Area] Erythrocytes [#/area] in Urine sediment by Automated count 0-4 [facility] Globulin Calc (S) [Mass/Vol] Ordered By: PROVIDER TEMP on 12-05-2023 Globulin (S) [Mass/Vol] 3.1 g/dL [facility] Globulin (S) [Mass/Vol] Serum globulin measurement by calculation (mass/volume) [facility] Glucose [Mass/volume] in Ser um or PlasmaOrdered By: PROVIDER TEMP on 12-05-2023 Glucose [Mass/Vol] 112 mg/dL High 70-100 [facility] Glucose [Mass/Vol] Glucose [Mass/volume ] in Serum or Plasma High 70-100 [facility] Glucose [Mass/volume] in Uri ne by Test stripOrdered By: John Cortes on 12-05-2023 Glucose Test strip (U) [Mass/Vol] Normal mg/dL Normal [facility] Glucose Test strip (U) [Mass/Vol] Glucose [Mass/volume] in Urine by Test strip Normal [facility] Hematocrit Auto (Bld) [Volum e fraction]Ordered By: PROVIDER TEMGarth on 12-05-2023 Hematocrit (Bld) [Volume fraction] 37.7 % 34.0-46.4 [facility] Hematocrit (Bld) [Volume fraction] Hematocrit [Volume Fraction] of Blood by Automated count 34.0-46.4 [facility] Hemoglobin Test strip Ql (U) Ordered By: John Cortes on 12-05-2023 Hemoglobin Ql (U) 2+ High Negative [facility] Hemoglobin Ql (U) Hemoglobin [Presence ] in Urine by Test strip High Negative [facility] Hemoglobin [Mass/volume] in BloodOrdered By: PROVIDER TEMGarth on 12-05-2023 Hemoglobin (Bld) [Mass/Vol] 13.2 g/dL 11.8-15.4 [facility] Hemoglobin (Bld) [Mass/Vol] Hemoglobin [Mass/volume] in Blood 11.8-15.4 [facility] Hyaline casts [#/area] in Ur ine sediment by Automated countOrdered By: John Cortes on 12-05-2023 Hyaline casts Auto (Urine sed) [#/Area] None [LPF] 0-8 [facility] Hyaline casts Auto (Urine sed) [#/Area] Hyaline casts [#/area] in Urine sediment by Automated count 0-8 [facility] Ketones Test strip Ql (U)Ord ered By: John Cortes on 12-05-2023 Ketones Ql (U) Negative Negative [facility] Ketones Ql (U) Ketones [Presence] i n Urine by Test strip Negative [facility] Leukocyte esterase [Presence ] in Urine by Test stripOrdered By: John Cortes on 12-05-2023 Leukocyte esterase Test strip Ql (U) Negative Negative [facility] Leukocyte esterase Test strip Ql (U) Leukocyte esterase [Presence] in Urine by Test strip Negative [facility] Leukocytes [#/area] in Urine sediment by Automated countOrdered By: John Cortes on 12-05-2023 WBC Auto (Urine sed) [#/Area] 1-2 [HPF] 0-4 [facility] WBC Auto (Urine sed) [#/Area] Leukocytes [#/area] in Urine sediment by Automated count 0-4 [facility] Leukocytes [#/volume] correc jacki for nucleated erythrocytes in Blood by Automated counOrdered By: PROVIDER TEMP on 12-05-2023 WBC corrected for nucl RBC Auto (Bld) [#/Vol] 7.6 10*3/uL 3.8-11.6 [facility] WBC corrected for nucl RBC Auto (Bld) [#/Vol] Leukocytes [#/volume] corrected for nucleated erythrocytes in Blood by Automated coun 3.8-11.6 [facility] Lipase [Enzymatic activity/v olume] in Serum or PlasmaOrdered By: PROVIDER TEMP on 12-05-2023 Lipase [Catalytic activity/Vol] 67.0 U/L 11.0-82.0 [facility] Lipase [Catalytic activity/Vol] Lipase [Enzymatic activity/volume] in Serum or Plasma 11.0-82.0 [facility] Lymphocytes Auto (Bld) [#/Vo l]Ordered By: PROVIDER TEMP on 12-05-2023 Lymphocytes (Bld) [#/Vol] 2.6 10*3/uL 1.00-4.8 [facility] Lymphocytes (Bld) [#/Vol] Lymphocytes [#/volume] in Blood by Automated count 1.00-4.8 [facility] Lymphocytes/100 WBC Auto (Bl d)Ordered By: PROVIDER TEMP on 12-05-2023 Lymphocytes/100 WBC (Bld) 34.8 % . [facility] Lymphocytes/100 WBC (Bld) Lymphocytes/100 leukocytes in Blood by Automated count . [facility] MCH Auto (RBC) [Entitic mass ]Ordered By: PROVIDER TEMP on 12-05-2023 MCH (RBC) [Entitic mass] 30.8 pg 24.7-34.3 [facility] MCH (RBC) [Entitic mass] MCH [Entitic ma ss] by Automated count 24.7-34.3 [facility] MCHC Auto (RBC) [Mass/Vol]Or dered By: PROVIDER TEMP on 12-05-2023 MCHC (RBC) [Mass/Vol] 34.9 g/dL 32.0-35.0 [facility] MCHC (RBC) [Mass/Vol] MCHC [Mass/volume] by Automated count 32.0-35.0 [facility] MCV Auto (RBC) [Entitic vol] Ordered By: PROVIDER TEMP on 12-05-2023 MCV (RBC) [Entitic vol] 88.2 fL 80-100 [facility] MCV (RBC) [Entitic vol] MCV [Entitic vol ume] by Automated count 80-100 [facility] Monocyte distribution width [Entitic volume] in Blood by AutomatedOrdered By: PROVIDER TEMP on 12-05-2023 Monocyte distribution width Auto (Bld) [Entitic vol] 19.51 % 0.00-20.00 [facility] Monocyte distribution width Auto (Bld) [Entitic vol] Monocyte distribution width [Entitic volume] in Blood by Automated 0.00-20.00 [facility] Monocytes Auto (Bld) [#/Vol] Ordered By: PROVIDER TEMP on 12-05-2023 Monocytes (Bld) [#/Vol] 0.5 10*3/uL 0.0-0.8 [facility] Monocytes (Bld) [#/Vol] Automated blood monocyte count 0.0-0.8 [facility] Monocytes/100 WBC Auto (Bld) Ordered By: PROVIDER TEMP on 12-05-2023 Monocytes/100 WBC (Bld) 6.2 % . [facility] Monocytes/100 WBC (Bld) Automated monocyte % . [facility] Mucus [Presence] in Urine by AutomatedOrdered By: John Cortes on 12-05-2023 Mucus Auto Ql (U) Rare [LPF] [facility] Mucus Auto Ql (U) Mucus [Presence] in Urine by Automated [facility] Neutrophils Auto (Bld) [#/Vo l]Ordered By: PROVIDER TEMP on 12-05-2023 Neutrophils (Bld) [#/Vol] 4.1 10*3/uL 1.8-7.7 [facility] Neutrophils (Bld) [#/Vol] Neutrophils [#/volume] in Blood by Automated count 1.8-7.7 [facility] Neutrophils/100 WBC Auto (Bl d)Ordered By: PROVIDER TEMP on 12-05-2023 Neutrophils/100 WBC (Bld) 53.6 % . [facility] Neutrophils/100 WBC (Bld) Automated neutrophil % . [facility] Nitrite Test strip Ql (U)Ord ered By: John Cortes on 12-05-2023 Nitrite Ql (U) Negative Negative [facility] Nitrite Ql (U) Nitrite [Presence] i n Urine by Test strip Negative [facility] No Panel InformationOrdered By: PROVIDER TEMP on 12-05-2023 > 60.0 mL/Min [facility] 121.86 [facility] Nucleated erythrocytes [Pres ence] in Blood by Automated countOrdered By: PROVIDER TEMP on 12-05-2023 Nucleated RBC Auto Ql (Bld) 0.1 /100{WBC} 0-0.5 [facility] Nucleated RBC Auto Ql (Bld) Nucleated erythrocytes [Presence] in Blood by Automated count 0-0.5 [facility] Platelet mean volume Auto (B ld) [Entitic vol]Ordered By: PROVIDER TEMP on 12-05-2023 Platelet mean volume (Bld) [Entitic vol] 7.8 fL 6.3-10.7 [facility] Platelet mean volume (Bld) [Entitic vol] Platelet mean volume [Entitic volume] in Blood by Automated count 6.3-10.7 [facility] Platelets Auto (Bld) [#/Vol] Ordered By: PROVIDER TEMP on 12-05-2023 Platelets (Bld) [#/Vol] 393 10*3/uL 150-450 [facility] Platelets (Bld) [#/Vol] Platelets [#/vol ume] in Blood by Automated count 150-450 [facility] Potassium [Moles/volume] in Serum or PlasmaOrdered By: PROVIDER TEMP on 12-05-2023 Potassium [Moles/Vol] 3.6 mmol/L 3.5-5.1 [facility] Potassium [Moles/Vol] Potassium [Moles/volume] in Serum or Plasma 3.5-5.1 [facility] Protein Test strip (U) [Mass /Vol]Ordered By: John Cortes on 12-05-2023 Protein (U) [Mass/Vol] Negative Negative [facility] Protein (U) [Mass/Vol] Protein [Mass/vol ume] in Urine by Test strip Negative [facility] Protein [Mass/volume] in Ser um or PlasmaOrdered By: PROVIDER TEMP on 12-05-2023 Protein [Mass/Vol] 7.6 g/dL 6.4-8.9 [facility] Protein [Mass/Vol] Protein [Mass/volume ] in Serum or Plasma 6.4-8.9 [facility] RBC Auto (Bld) [#/Vol]Ordere d By: PROVIDER TEM on 12-05-2023 RBC (Bld) [#/Vol] 4.28 10*6/uL 3.60-5.00 [facility] RBC (Bld) [#/Vol] Erythrocytes [#/volume] in Blood by Automated count 3.60-5.00 [facility] Serum or plasma albumin/glob ulin mass ratioOrdered By: PROVIDER TEM on 12-05-2023 Albumin/Globulin [Mass ratio] 1.5 {ratio} [facility] Albumin/Globulin [Mass ratio] Serum or plasma albumin/globulin mass ratio [facility] Serum or plasma anion gap de terminationOrdered By: PROVIDER TEM on 12-05-2023 Anion gap [Moles/Vol] 13.0 mmol/L 6.0-15.0 [facility] Anion gap [Moles/Vol] Serum or plasma an ion gap determination 6.0-15.0 [facility] Serum or plasma non-glucuron idated bilirubin measurement (mass/volume)Ordered By: PROVIDER TEMP on 12-05-2023 Bilirubin.indirect [Mass/Vol] 0.2 mg/dL [facility] Bilirubin.indirect [Mass/Vol] Serum or plasma non-glucuronidated bilirubin measurement (mass/volume) [facility] Sodium [Moles/volume] in Ser um or PlasmaOrdered By: PROVIDER TEMP on 12-05-2023 Sodium [Moles/Vol] 139 mmol/L 136-145 [facility] Sodium [Moles/Vol] Sodium [Moles/volume ] in Serum or Plasma 136-145 [facility] Specific gravity Test strip (U) [Rel density]Ordered By: John Cortes on 12-05-2023 Specific gravity (U) [Rel density] 1.017 1.001-1.030 [facility] Specific gravity (U) [Rel density] Specific gravity of Urine by Test strip 1.001-1.030 [facility] Troponin I.cardiac [Mass/vol ume] in Serum or Plasma by Detection limit <= 0.01 ng/Ordered By: PROVIDER ABDON on 12-05-2023 Troponin I.cardiac DL <= 0.01 ng/mL [Mass/Vol] 5.1 pg/mL 0.0-15.0 [facility] Troponin I.cardiac DL <= 0.01 ng/mL [Mass/Vol] Troponin I.cardiac [Mass/volume] in Serum or Plasma by Detection limit <= 0.01 ng/ 0.0-15.0 [facility] Urea nitrogen [Mass/volume] in Serum or PlasmaOrdered By: PROVIDER ABDON on 12-05-2023 Urea nitrogen [Mass/Vol] 13 mg/dL 10-23 [facility] Urea nitrogen [Mass/Vol] Urea nitrogen [Mass/volume] in Serum or Plasma 10-23 [facility] Urine appearanceOrdered By: John Cortes on 12-05-2023 Appearance (U) Clear Clear [facility] Urobilinogen Test strip (U) [Mass/Vol]Ordered By: John Cortes on 12-05-2023 Urobilinogen (U) [Mass/Vol] Normal mg/dL Normal [facility] Urobilinogen (U) [Mass/Vol] Urobilinogen [Mass/volume] in Urine by Test strip Normal [facility] WBC Auto (Bld) [#/Vol]Ordere d By: AJAY COPPOLA on 12-05-2023 WBC (Bld) [#/Vol] 7.6 10*3/uL 3.8-11.6 [facility] WBC (Bld) [#/Vol] Leukocytes [#/volume ] in Blood by Automated count 3.8-11.6 [facility] pH Test strip (U)Ordered By: John Cortes on 12-05-2023 pH (U) 5.0 [pH] 5.0-9.0 [facility] pH (U) pH of Urine by Test strip 5.0-9.0 [facility] BMPon 12-01-2023 Anion gap [Moles/Vol] 12 mmol/L Normal 6-16 [facility] Comment on above: Performed By: #### 2 [id number] #### [facility] [address] [place] [address] Calcium [Mass/Vol] 9.5 mg/dL Normal 8.9-11.1 [facility] Comment on above: Performed By: #### 2 [id number] #### [facility] [address] [facility] [address] Chloride [Moles/Vol] 104 mmol/L Normal 101-111 [facility] Comment on above: Performed By: #### 2 [id number] #### [facility] [address] [place] [address] CO2 [Moles/Vol] 26 mmol/L Normal 21-31 [facility] Comment on above: Performed By: #### 2 [id number] #### [facility] [address] [place] [address] Creatinine [Mass/Vol] 0.7 mg/dL Normal 0.5-1.3 [facility] Comment on above: Performed By: #### 2 [id number] #### [facility] [address] [place] [address] Glucose [Mass/Vol] 119 mg/dL Normal 55-199 [facility] Comment on above: Performed By: #### 2 [id number] #### [facility] [address] [place] [address] Potassium [Moles/Vol] 3.6 mmol/L Normal 3.5-5.3 [facility] Comment on above: Performed By: #### 2 [id number] #### [facility] [address] [place] [address] Sodium [Moles/Vol] 138 mmol/L Normal 135-145 [facility] Comment on above: Performed By: #### 2 [id number] #### [facility] [address] [place] [address] Urea nitrogen [Mass/Vol] 10 mg/dL Normal 5-21 [facility] Comment on above: Performed By: #### 2 [id number] #### [facility] [address] [place] [address] Urea nitrogen/Creatinine [Mass ratio] 14 No Units Normal 10-20 [facility] Comment on above: Performed By: #### 2 [id number] #### [facility] [address] [place] [address] BNPon 12-01-2023 Natriuretic peptide B (Bld) [Mass/Vol] 13 pg/mL Normal 5-80 [facility] Comment on above: Performed By: #### 1 [id number] #### [facility] [address] [place] [address] CBC w/ Auto Diffon 4 Basophils/100 WBC (Bld) 0.4 % Normal 0.0-2.0 [facility] Comment on above: Performed By: #### 2 [id number] #### [facility] [address] [place] [address] Basophils/Leukocytes Auto (Bld) [Pure # fraction] 0.0 E9/L Normal 0.0-0.2 [facility] Comment on above: Performed By: #### 2 [id number] #### [facility] [address] [place] [address] Eosinophils (Bld) [#/Vol] 0.3 E9/L Normal 0.0-0.5 [facility] Comment on above: Performed By: #### 2 [id number] #### [facility] [address] [place] [address] Eosinophils/100 WBC (Bld) 4.8 % Normal 0.0-8.0 [facility] Comment on above: Performed By: #### 2 [id number] #### [facility] [address] [place] [address] Erythrocyte distribution width (RBC) [Ratio] 14.3 % High 10.9-14.2 [facility] Comment on above: Performed By: #### 2 [id number] #### [facility] [address] [place] [address] Hematocrit (Bld) [Volume fraction] 40.6 % Normal 34.0-46.0 [facility] Comment on above: Performed By: #### 2 [id number] #### [facility] [address] [place] [address] Hemoglobin (Bld) [Mass/Vol] 14.0 g/dL Normal 12.0-16.0 [facility] Comment on above: Performed By: #### 2 [id number] #### [facility] [address] [place] [address] Lymphocytes (Bld) [#/Vol] 1.8 E9/L Normal 1.0-4.0 [facility] Comment on above: Performed By: #### 2 [id number] #### [facility] [address] [place] [address] Lymphocytes/100 WBC (Bld) 27.4 % Normal 14.0-50.0 [facility] Comment on above: Performed By: #### 2 [id number] #### [facility] [address] [place] [address] MCH (RBC) [Entitic mass] 30.6 pg Normal 27.0-34.0 [facility] Comment on above: Performed By: #### 2 [id number] #### [facility] [address] [place] [address] MCHC (RBC) [Mass/Vol] 34.5 g/dL Normal 31.4-36.0 [facility] Comment on above: Performed By: #### 2 [id number] #### [facility] [address] [place] [address] MCV (RBC) [Entitic vol] 88.9 fL Normal 80.0-100.0 [facility] Comment on above: Performed By: #### 2 [id number] #### [facility] [address] [place] [address] Monocytes (Bld) [#/Vol] 0.5 E9/L Normal 0.2-1.0 [facility] Comment on above: Performed By: #### 2 [id number] #### [facility] [address] [place] [address] Neutrophils (Bld) [#/Vol] 4.0 E9/L Normal 2.0-7.5 [facility] Comment on above: Performed By: #### 2 [id number] #### [facility] [address] [place] [address] Neutrophils/100 WBC (Bld) 59.3 % Normal 36.0-75.0 [facility] Comment on above: Performed By: #### 2 [id number] #### [facility] [address] [place] [address] Platelet mean volume (Bld) [Entitic vol] 7.5 fL Normal 6.4-10.8 [facility] Comment on above: Performed By: #### 2 [id number] #### [facility] [address] [place] [address] Platelets (Bld) [#/Vol] 368.0 E9/L Normal 150.0-500.0 [facility] Comment on above: Performed By: #### 2 [id number] #### [facility] [address] [place] [address] RBC (Bld) [#/Vol] 4.6 E12/L Normal 4.3-5.9 [facility] Comment on above: Performed By: #### 2 [id number] #### [facility] [address] [place] [address] WBC corrected for nucl RBC Auto (Bld) [#/Vol] 6.7 E9/L Normal 4.0-11.0 [facility] Comment on above: Performed By: #### 2 [id number] #### [facility] [address] [place] [address] CHEMISTRYOrdered By: SYSTEM SYSTEM on 12-01-2023 Troponin HS 4.80 pg/mL Low 10.10 - 27.10 pg/mL [facility] Comment on above: Interpretive Data: T he 95% CI (Confidence Interval) PPV (Positive Predictive Value) for myocardial infarction in females is 38 pg/mL, in males 51 pg/mL. The results should be used in conjunction with clinical conditions of myocardial infarction. (Access High Sensitivity Troponin I Instructions For Use, [employer], October 2017) Troponin HS 5.20 pg/mL Low 10.10 - 27.10 pg/mL [facility] Comment on above: Interpretive Data: T he 95% CI (Confidence Interval) PPV (Positive Predictive Value) for myocardial infarction in females is 38 pg/mL, in males 51 pg/mL. The results should be used in conjunction with clinical conditions of myocardial infarction. ([facility] High Sensitivity Troponin I Instructions For Use, [employer], October 2017) Albumin [Mass/Vol] 4.2 g/dL Normal 3.3 - 5.0 gm/dL [facility] Albumin/Globulin [Mass ratio] 1.4 {ratio} Normal 1.1 - 2.2 [facility] ALP [Catalytic activity/Vol] 85 [iU]/d Normal 21 - 98 Int._Unit/L [facility] ALT No additional P-5'-P [Catalytic activity/Vol] 16 [iU]/d Normal 6 - 46 Int._Unit/L [facility] Anion gap [Moles/Vol] 12 mmol/L Normal 6 - 16 mEq/L [facility] AST [Catalytic activity/Vol] 15 [iU]/d Normal 5 - 43 Int._Unit/L [facility] Bilirubin [Mass/Vol] 0.3 mg/dL Normal 0.0 - 1 .1 mg/dL [facility] Bilirubin.direct [Mass/Vol] 0.0 mg/dL Normal 0.0 - 0.4 mg/dL [facility] Bilirubin.indirect [Mass or moles/Vol] 0.3 mg/dL Normal 0.1 - 0.9 mg/dL [facility] Calcium [Mass/Vol] 9.5 mg/dL Normal 8.9 - 11. 1 mg/dL [facility] Chloride [Moles/Vol] 104 mmol/L Normal 101 - 1 11 mmol/L [facility] CO2 [Moles/Vol] 26 mmol/L Normal 21 - 31 mmol/L [facility] Creatinine [Mass/Vol] 0.7 mg/dL Normal 0.5 - 1.3 mg/dL [facility] eGFR 105 mL/min/1.73 m2 Normal >=59mL/mi n/ 1.73 m2 [facility] Globulin (S) [Mass/Vol] 3.1 g/dL Normal 1.4 - 4.0 gm/dL [facility] Glucose [Mass/Vol] 119 mg/dL Normal 55 - 199 mg/dL [facility] Magnesium [Mass/Vol] 1.5 mg/dL Normal 1.3 - 2 .4 mg/dL [facility] Potassium [Moles/Vol] 3.6 mmol/L Normal 3.5 - 5.3 mmol/L [facility] Protein [Mass/Vol] 7.3 g/dL Normal 6.0 - 7.8 gm/dL [facility] Sodium [Moles/Vol] 138 mmol/L Normal 135 - 145 mmol/L [facility] Troponin HS 5.10 pg/mL Low 10.10 - 27.10 pg/mL [facility] Comment on above: Interpretive Data: T he 95% CI (Confidence Interval) PPV (Positive Predictive Value) for myocardial infarction in females is 38 pg/mL, in males 51 pg/mL. The results should be used in conjunction with clinical conditions of myocardial infarction. (Access High Sensitivity Troponin I Instructions For Use, [employer], October 2017) Urea nitrogen [Mass/Vol] 10 mg/dL Normal 5 - 21 mg/dL [facility] Urea nitrogen/Creatinine [Mass ratio] 14 mg/mg Normal 10 - 20 [facility] CHEMISTRYOrdered By: Dusty Wolfe on 12-01-2023 Natriuretic peptide B (Bld) [Mass/Vol] 13 pg/mL Normal 5 - 80 pg/mL [facility] [employer] COAGULATIONOrdered By: Corey Wolfe on 12-01-2023 aPTT Coag (PPP) [Time] 40.3 s High 25.1 - 36.5 second(s) [facility] Comment on above: Interpretive Data: P arameter 15 days - 4 weeks 1 - 5 months 6 - 11 months 1 - 5 years 6 - 10 years 11 - 17 years PTT Mean: 35.4 (27.6-45.6) Mean: 33.5 (24.8-40.7) Mean: 32.4 (25.1-40.7) Mean: 31.6 (24.0-39.2) Mean: 31.6 (26.9-38.7) Mean: 31.0 (24.6-38.4) Pediatric Reference ranges were obtained from a study by [employer] prepared from 1437 samples obtained at 7 different centers using the same coagulation reagent and instrumentation as [facility]. Currently there are no coagulation studies available worldwide for children to 14 days, and no normal ranges. Heparin therapeutic range (represented by Anti-Factor Xa activity of 0.2 - 0.4 U/mL) corresponds to PTT of 56.6 - 109.0 sec. INR Coag (PPP) [Relative time] 0.98 {INR} Invalid Interpretation Code [facility] Comment on above: Interpretive Data: I NR results are specifically intended to assess patients stabilized on long-term Anticoagulation therapy suggested INR s Less Intensive Anticoagulation 2.0 3.0 Conventional Range 3.0 4.5 PT Coag (PPP) [Time] 11.0 s Normal 9.4 - 1 2.5 second(s) [facility] Comment on above: Interpretive Data: 1 5 days - 4 weeks 1 - 5 months 6 -11 months 1 5 years 6 10 years 11 -17 years Mean: 11.2 (9.5 12.6) Mean: 11.0 (9.7 12.8) Mean: 11.0 (9.8 13.0) Mean: 11.3 (9.9 13.4) Mean: 11.7 (10.0 14.6) Mean: 11.8 (10.0 - 14.1) Pediatric Reference ranges were obtained from a study by [employer] prepared from 1437 samples obtained at 7 different centers using the same coagulation reagent and instrumentation as [facility]. Currently there are no coagulation studies available worldwide for children to 14 days, and no normal ranges. ED Clinical Summaryon 2023 ED Clinical Summary ED Clinical Summary [address] [address] ED Clinical Summary Person Information Name: GIOVANNA STREETER [facility] Age[facility] 48 Years : 1975 Sex: Female Language: Comoran PCP: REBECCA NAVAS CNP Marital Status: Visit Id: Visit Reason: Hypertension; Shortness of breath; Chest pain; HIGH BP, CHEST PAIN Speciality: Acuity: 2 Enc Type: Emergency Med Service: Emergency Arrival: 12/01/2023 14:15:48 Discharge: 12/01/2023 19:16:55 LOS: 000 05:01 Checkin: 12/01/2023 14:15:48 Checkout: 12/01/2023 19:16:55 Dispo Type: Home (Routine DC) EVENTS: Event Name Event Status Request Date/Time Start Date/Time Complete Date/Time Arrive Complete 12/01/2023 14:15:48 12/01/2023 14:15:48 12/01/2023 14:15:48 Document Home Meds Request 12/01/2023 14:15:48 Triage Complete 12/01/2023 14:15:48 12/01/2023 14:22:49 12/01/2023 14:22:49 Bed Assign Complete 12/01/2023 14:16:51 12/01/2023 14:16:51 12/01/2023 14:16:51 Dr Exam Complete 12/01/2023 14:16:51 12/01/2023 14:25:07 12/01/2023 14:25:07 RN Exam Complete 12/01/2023 14:16:51 12/01/2023 18:56:01 12/01/2023 18:56:01 EKG Complete 12/01/2023 14:18:14 12/01/2023 14:21:53 Registration Complete 12/01/2023 14:19:01 12/01/2023 14:19:01 12/01/2023 14:19:01 Reg Complete Request 12/01/2023 14:19:01 Reg Bed Request Complete 12/01/2023 14:19:01 12/01/2023 14:19:01 12/01/2023 14:19:01 Pending Labs Complete 12/01/2023 14:24:22 12/01/2023 16:27:44 Lab Complete 12/01/2023 14:24:22 12/01/2023 15:10:05 X-Ray Complete 12/01/2023 14:24:22 12/01/2023 14:27:23 12/01/2023 14:38:20 Registration Request 12/01/2023 14:25:07 Pending Labs Request 12/01/2023 14:32:58 Lab Cancel 12/01/2023 14:32:58 12/01/2023 14:47:08 Meds Admin Complete 12/01/2023 14:32:58 12/01/2023 14:42:52 Patient Care Request 12/01/2023 14:32:58 RT Request 12/01/2023 14:32:58 Wet Read Request 12/01/2023 14:38:20 Pending Labs Complete 12/01/2023 14:43:47 12/01/2023 14:43:47 12/01/2023 15:10:05 Lab Complete 12/01/2023 14:43:47 12/01/2023 14:43:47 12/01/2023 15:10:05 Meds Admin Complete 12/01/2023 14:44:20 12/01/2023 15:10:32 Pending Labs Complete 12/01/2023 14:46:35 12/01/2023 14:46:35 12/01/2023 15:32:18 Lab Complete 12/01/2023 14:46:35 12/01/2023 14:46:35 12/01/2023 15:32:18 Pending Labs Complete 12/01/2023 14:46:41 12/01/2023 14:46:41 12/01/2023 15:10:05 Lab Complete 12/01/2023 14:46:41 12/01/2023 14:46:41 12/01/2023 15:10:05 Pending Labs Complete 12/01/2023 17:18:00 12/01/2023 18:37:01 Discharge Complete 12/01/2023 19:08:11 12/01/2023 19:17:10 12/01/2023 19:17:10 Transfer Complete 12/01/2023 19:17:10 12/01/2023 19:17:10 12/01/2023 19:17:10 ADDRESS: [address] [phone] PHYS DOC NOTES: MEDICAL INFORMATION: Prescriptions Given: Medications to Continue with No Changes Other Medications acetaminophen-hydrocod one ([place] 325 mg-5 mg oral tablet) 1 Tablets By Mouth every 4 hours as needed for pain. Refills: 0. APAP/butalbital/caffei ne (APAP/butalbital/caffe ine 325 mg-50 mg-40 mg Tab) 2 Tablets By Mouth every 6 hours as needed for headache. Refills: 0. atorvastatin (atorvastatin 20 mg Tab) 1 Tablets By Mouth every day. azithromycin (azithromycin 250 mg Tab) 250 Milligram By Mouth As Directed. Refills: 0. azithromycin (Zithromax) 250 Milligram By Mouth. brompheniramine/dextro methorphan/PSE (Bromfed DM oral syrup) 5 Milliliter By Mouth 4 times a day as needed for cough and congestion. Refills: 0. brompheniramine/dextro methorphan/PSE (Bromfed DM oral syrup) 5 Milliliter By Mouth 4 times a day as needed for cough and congestion. Refills: 0. cyclobenzaprine (cyclobenzaprine 10 mg Tab) 1 Tablets By Mouth 3 times a day as needed Muscle pain. Refills: 0. lisinopril 20 Milligram By Mouth every day. meclizine (meclizine 25 mg Tab) 1 Tablets By Mouth 3 times a day as needed for dizziness. Refills: 0. naproxen (Naprosyn 500 mg Tab) 1 Tablets By Mouth 2 times a day as needed for pain. Refills: 0. naproxen (Naprosyn 500 mg Tab) 1 Tablets By Mouth 2 times a day as needed for pain. Refills: 0. naproxen (Naprosyn 500 mg Tab) 1 Tablets By Mouth 2 times a day as needed for pain. Refills: 0. naproxen (naproxen 500 mg oral enteric coated tablet) 1 Tablets By Mouth 2 times a day as needed Pain. Refills: 0. naproxen (naproxen 500 mg Tab) 1 Tablets By Mouth 2 times a day as needed Pain. Refills: 0. omeprazole (omeprazole 20 mg Cap-DR) 1 Capsules By Mouth every day. ondansetron (ondansetron 4 mg Dis Tab) 1 Tablets By Mouth every 6 hours as needed Nausea/Vomiting. Refills: 0. ondansetron (Zofran ODT 4 mg Tab-Dis) 1 Tablets By Mouth every 8 hours as needed Nausea/Vomiting. Refills: 0. ondansetron (Zofran ODT 4 mg Tab-Dis) 1 Tablets By Mouth every 8 hours as needed Nausea/Vomiting. Refills: 0. ondansetron (Zofran ODT 4 mg Tab-Dis) 1 Tablets By Mouth every 8 hours. Refills: 0. predniSONE (predniSONE 20 mg Tab) 1 Tablets By Mouth As Directed. take two tabs daily for 5 days, then one tab daily for 5 (more content not included)... Normal [facility] ED Note-Physicianon 12-01-19 ED Note-Physician ED Note-Physician Basic Information Time Seen: Narendra Thomas M.D. 12/01/2023 14:25 Chief Complaint pt to ER c/o chest pain and shortness of breath that started at approx 1330. pt hx of HTN. Denies other cardiac hx. History of Present Illness The patient is a 48-year-old female past medical history of hypertension, hypercholesterolemia who presented to the emergency room with elevated blood pressure. 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 She woke up around 1 AM and did not feel right. The patient states she has been having some tightness on her chest. She is complaining of some headache that is getting better. The patient states her blood pressure was 180s systolic. She took Zofran because she was feeling nauseated and Excedrin for the headache. She took her lisinopril for the blood pressure as well. The patient reports slight lightheadedness. She denies any sweating. The patient reports mild shortness of breath. She denies any cough. Denies any fever, denies any chills. The patient denies any other associated symptoms. Review of Systems Additional ROS info: Except as noted in the above Review of Systems and in the History of Present Illness all other systems have been reviewed and are negative or noncontributory. Physical Exam Vitals & Measurements T: 36.5 ?C(Oral) HR: 64(Monitored) RR: 14 BP: 143/83 SpO2: 97% HT: 160 cm WT: 91.9 kg BMI: 35.9 General: alert, no acute distress Skin: warm, dry, Head: no trauma, normocephalic Neck: Trachea midline, no tenderness, supple Eye: normal conjunctiva, sclera clear, ENMT: Oral mucosa moist Cardiovascular: regular rate and rhythm, Respiratory: Lungs CTA, respirations non labored, breath sounds equal, Gastrointestinal: soft, non distended, no tenderness, no guarding Extremities: no deformity, no trauma Neurological: Alert and oriented, speech normal, no focal neuro deficits Psychiatric: cooperative, affect anxious, Procedure Heart Score for Major Cardiac Event History: Example factors for history - pattern of chest pain, onset, duration, relation with exercise, stress or cold, localization, concominant symptoms. reaction to sublingual nitrates, [] Highly suspicious +2 [] Moderately suspicious +1 [x] Slightly suspicious 0 EKG: [] Significant ST-Depression +2 [] Non specific repolarization disturbance +1 [x] Normal 0 Age: [] >= 65 +2 [x] 45-65 + 1 [] <45 0 Risk Factors: (HLD, HTN, DM, Cigarette Smoking, Pos Family Hx, Obesity) [] >3 risk factors or hx of atheroslerotic disease + 2 [x] 1-2 risk factors + 1 [] No risk factors known 0 Troponin: [] >= 3X normal + 2 [] 1-3X normal + 1 [x] <= Normal 0 [] 0-3 Points 0.9 - 1.7% risk of major adverse cardiac event in 6 weeks [] 4-6 Points 12-16.6% risk of major adverse cardiac event in 6 weeks [] 7-10 Points 50-65% risk of major adverse cardiac event in 6 weeks [] 0-3 Points with 2 sets of negative cardiac markers <1% risk of major adverse cardiac event in 30 days. Medical Decision Making MEDICAL DECISION MAKING Number and Complexity of Problems Differential Diagnosis: [] [facility] Data External documents reviewed: [] My EKG interpretation: [] My CT interpretation: [] My X-ray interpretation: [] My Ultrasound interpretation: [] Decision rules/scores evaluated: [] Discussed with: [] Treatment and Disposition ED Course: The patient presented with elevated blood pressure and chest pain. Less likely of cardiac origin. Heart score is 2. EKG is normal. 3 sets of troponins are negative. Possible her pain is due to hypertension. Her blood pressure is elevated. Blood work reviewed. The chest x-ray shows no acute cardiopulmonary disease. The patient was given aspirin and hydralazine IV. Her chest pain completely resolved. Blood pressure improved. Her headache completely resolved. The patient felt better. Will discharge patient home follow-up with cardiology and her primary care. She is instructed to return to the emergency room if her chest pain recurs, blood pressure elevates again or any new symptoms. Shared decision making: [] Code status: [] Assessment/Plan 1. Chest pain (R07.9: Chest pain, unspecified) 2. Accelerated hypertension (I10: Essential (primary) hypertension) Orders: aspirin, 162 mg = 2 tab(s), Tab-Chew, Oral, Once, Stop date 12/01/23 14:32:00 EDT, STAT, Start date 12/01/23 14:32:00 EDT, 12/01/23 14:32:00 EDT hydrALAZINE, 10 mg = 0.5 mL, Injection, IV Push, Once, Stop date 12/01/23 14:44:00 EDT, STAT, Start date 12/01/23 14:44:00 EDT, 12/01/23 14:44:00 EDT ED Cardiac Monitoring Oxygen Saturation Oxygen Therapy Saline Lock Insert Troponin 3 Hr. UA with Cult Rflx Medications Administered Given aspirin 81 mg Chew Tab, 162 mg, Oral (more content not included)... Normal [facility] Comment on above: Result Comment: Elec tronically Signed By: Narendra Thomas M.D.\.br\Date and Time Signed: 12/01/23 19:10 EDT ED Patient Summaryon 024 ED Patient Summary ED Patient Summary [address] [address] Patient Discharge Instructions Person Information Name: GIOVANNA STREETER Age: 48 Years Arrival Date: 12/01/2023 14:15:48 Discharge Diagnosis: 1:Chest pain; 2:Accelerated hypertension Primary Care Physician: REBECCA NAVAS CNP Provider Information Primary Provider: Narendra Thomas M.D. Advanced Cigarette Lighter Repairer:None The exam and treatment you received in the Emergency Department were for an urgent problem and are not intended as complete care. It is important that you follow up with a doctor, nurse practitioner, or physician?s medical assistant float for ongoing care. If your symptoms become worse or you do not improve as expected and you are unable to reach your usual health care provider, you should return to the Emergency Department. We are available 24 hours a day. GIOVANNA STREETER has been given the following list of patient education materials, prescriptions and follow-up instructions: Follow-up Instructions: With: Address: When: Michael Campbell [address] [place] [phone] Business (1) In 3 days 12/04/2023 Comments: Make sure to follow-up with for this chest pain as discussed. Follow-up with your doctor for blood pressure check and her blood pressure medication adjustment. Return to the emergency room if your chest pain recurs, blood pressure elevates again or any new symptoms. With: Address: When: REBECCA NAVAS [address] [place] [address] In 3 days In the event that this physician does not participate in your insurance network, please consult with your insurance company to find a nearby participating provider. Patient Education Materials: Nonspecific Chest Pain, Adult; Hypertension, Adult A MESSAGE TO ALL PATIENTS REGARDING OPIOIDS PRESCRIPTION OPIOIDS: WHAT YOU NEED TO KNOW Prescription opioids can be used to help relieve necciymy-ye-wqiozb pain and are often prescribed following a surgery or injury, or for certain health conditions. These medications can be an important part of the treatment but also come with serious risks. It is important to work with your healthcare provider to make sure you are getting the safest, most effective care. WHAT ARE THE RISKS AND SIDE EFFECTS OF OPIOID USE? Prescription opioids carry serious risks of addiction and overdose, especially with prolonged use. An opioid overdose, often marked by slowed breathing, can cause sudden . The use of prescription opioids can have a number of side effects as well, even when taken as directed: ? Tolerance?meaning you might need to take more of the medication for the same pain relief ? Physical dependence?meaning you have symptoms of withdrawal when a medication is stopped ? Increased sensitivity to pain ? Constipation ? Nausea, vomiting, and dry mouth ? Sleepiness and dizziness ? Confusion ? Depression ? Low levels of testosterone that can result in lower sex drive, energy, and strength ? Itching and sweating RISKS ARE GREATER WITH: ? History of drug misuse, substance use disorder, or overdose ? Mental health conditions (such as depression or anxiety) ? Sleep apnea ? Older age (65 years and older) ? Avoid alcohol while taking prescription opioids. Also, unless specifically advised by your health care provider, medications to avoid include: ? Benzodiazepines (such as Xanax or Valium) ? Muscle relaxants (such as Soma or Flexeril) ? Hypnotics (such as Ambien or Lunesta) ? Other prescription opioids KNOW YOUR OPTIONS Talk to your health care provider about ways to manage your pain that don?t involve prescription opioids. Some of these options may actually work better and have fewer risks and side effects. Options may include: ? Pain relievers such as acetaminophen, ibuprofen, and naproxen ? Some medication that are also used for depression or seizures ? Physical therapy and exercise ? Cognitive behavioral therapy, a psychological, goal-directed approach, in which patients learn how to modify physical, behavioral, and emotional triggers of pain and stress. IF YOU ARE PRESCRIBED OPIOIDS FOR PAIN: ? Never take opioids in greater amounts or more often than prescribed. ? Follow up with your primary health care provider. o Work together to create a plan on how to manage your pain. o Talk about ways to help manage your pain that don?t involve prescription opioids. o Talk about any and all concerns and side effects. ? Help prevent misuse and abuse o Never sell or share prescription opioids. o Never use another person?s prescription opioids. ? Store prescription opioids in a secure place and out of reach of others (this may include visitors, children, friends, and family). ? Safely dispose of unused prescription opioids: Find your community drug take-back program or your pharma (more content not included)... Normal [facility] HEMATOLOGYOrdered By: Poonam warren on 12-01-2023 Basophils/100 WBC (Bld) 0.4 % Normal 0.0 - 2.0 % Remisol Heme Basophils/Leukocytes Auto (Bld) [Pure # fraction] 0.0 E9/L Normal 0.0 - 0.2 E9/L Remisol Heme Eosinophils (Bld) [#/Vol] 0.3 E9/L Normal 0.0 - 0.5 E9/L Remisol Heme Eosinophils/100 WBC (Bld) 4.8 % Normal 0.0 - 8.0 % Remisol Heme Erythrocyte distribution width (RBC) [Ratio] 14.3 % High 10.9 - 14.2 % Remisol Heme Hematocrit (Bld) [Volume fraction] 40.6 % Normal 34.0 - 46.0 % Remisol Heme Hemoglobin (Bld) [Mass/Vol] 14.0 g/dL Normal 12.0 - 16.0 gm/dL Remisol Heme Lymphocytes (Bld) [#/Vol] 1.8 E9/L Normal 1.0 - 4.0 E9/L Remisol Heme Lymphocytes/100 WBC (Bld) 27.4 % Normal 14.0 - 50.0 % Remisol Heme MCH (RBC) [Entitic mass] 30.6 pg Normal 27. 0 - 34.0 pg Remisol Heme MCHC (RBC) [Mass/Vol] 34.5 g/dL Normal 31.4 - 36.0 gm/dL Remisol Heme MCV (RBC) [Entitic vol] 88.9 fL Normal 80.0 - 100.0 fL Remisol Heme Monocytes (Bld) [#/Vol] 0.5 E9/L Normal 0.2 - 1.0 E9/L Remisol Heme Monocytes/100 WBC (Bld) 8.1 % Normal 4.0 - 14.0 % Remisol Heme Neutrophils (Bld) [#/Vol] 4.0 E9/L Normal 2.0 - 7.5 E9/L Remisol Heme Neutrophils/100 WBC (Bld) 59.3 % Normal 36.0 - 75.0 % Remisol Heme Platelet mean volume (Bld) [Entitic vol] 7.5 fL Normal 6.4 - 10.8 fL Remisol Heme Platelets (Bld) [#/Vol] 368.0 E9/L Normal 150. 0 - 500.0 E9/L Remisol Heme RBC (Bld) [#/Vol] 4.6 E12/L Normal 4.3 - 5.9 E12/L Remisol Heme WBC corrected for nucl RBC Auto (Bld) [#/Vol] 6.7 E9/L Normal 4.0 - 11.0 E9/L Remisol Heme Hep Func Panelon 12-01-2023 Albumin [Mass/Vol] 4.2 g/dL Normal 3.3-5.0 [facility] Comment on above: Performed By: #### 2 [id number] #### [facility] [address] [place] [address] Albumin/Globulin (S) [Mass conc ratio] 1.4 Normal 1.1-2.2 [facility] Comment on above: Performed By: #### 2 [id number] #### [facility] [address] [place] [address] ALP [Catalytic activity/Vol] 85 Int._Unit/L Normal 21-98 [facility] Comment on above: Performed By: #### 2 [id number] #### [facility] [address] [place] [address] ALT No additional P-5'-P [Catalytic activity/Vol] 16 Int._Unit/L Normal 6-46 [facility] Comment on above: Performed By: #### 2 [id number] #### [facility] [address] [place] [address] AST [Catalytic activity/Vol] 15 Int._Unit/L Normal 5-43 [facility] Comment on above: Performed By: #### 2 [id number] #### [facility] [address] [place] [address] Bilirubin [Mass/Vol] 0.3 mg/dL Normal 0.0-1.1 [facility] Comment on above: Performed By: #### 2 [id number] #### [facility] [address] [place] [address] Bilirubin.direct [Mass/Vol] 0.0 mg/dL Normal 0.0-0.4 [facility] Comment on above: Performed By: #### 2 [id number] #### [facility] [address] [place] [address] Bilirubin.indirect [Mass or moles/Vol] 0.3 mg/dL Normal 0.1-0.9 [facility] Comment on above: Performed By: #### 2 [id number] #### [facility] [address] [place] [address] Globulin (S) [Mass/Vol] 3.1 g/dL Normal 1.4-4.0 [facility] Comment on above: Performed By: #### 2 [id number] #### [facility] [address] [place] [address] Protein [Mass/Vol] 7.3 g/dL Normal 6.0-7.8 [facility] Comment on above: Performed By: #### 2 [id number] #### [facility] [address] [place] [address] Magnesiumon 12-01-2023 Magnesium [Mass/Vol] 1.5 mg/dL Normal 1.3-2.4 [facility] Comment on above: Performed By: #### 2 [id number] #### [facility] [address] [place] [address] PT & PTTon 12-01-2023 aPTT Coag (PPP) [Time] 40.3 second(s) High 25.1-36.5 [facility] Comment on above: Result Comment: Para meter 15 days - 4 weeks 1 - 5 months 6 - 11 months 1 - 5 years 6 - 10 years 11 - 17 years PTT Mean: 35.4 (27.6-45.6) Mean: 33.5 (24.8-40.7) Mean: 32.4 (25.1-40.7) Mean: 31.6 (24.0-39.2) Mean: 31.6 (26.9-38.7) Mean: 31.0 (24.6-38.4) Pediatric Reference ranges were obtained from a study by phillip Bolanos prepared from 1437 samples obtained at 7 different centers using the same coagulation reagent and instrumentation as [facility]. Currently there are no coagulation studies available worldwide for children to 14 days, and no normal ranges. Heparin therapeutic range (represented by Anti-Factor Xa activity of 0.2 - 0.4 U/mL) corresponds to PTT of 56.6 - 109.0 sec. Performed By: #### 1 [id number] #### [facility] [address] [place] [address] INR Coag (PPP) [Relative time] 0.98 {INR} Invalid Interpretation Code [facility] Comment on above: Result Comment: INR results are specifically intended to assess patients stabilized on long-term Anticoagulation therapy suggested INR?s ?Less Intensive Anticoagulation? 2.0 ? 3.0 Conventional Range 3.0 ? 4.5 Performed By: #### 1 [id number] #### [facility] [address] [place] [address] PT Coag (PPP) [Time] 11.0 second(s) Normal 9.4-12.5 [facility] Comment on above: Result Comment: 15 d ays - 4 weeks 1 - 5 months 6 -11 months 1 ? 5 years 6 ? 10 years 11 -17 years Mean: 11.2 (9.5 ? 12.6) Mean: 11.0 (9.7 ? 12.8) Mean: 11.0 (9.8 ? 13.0) Mean: 11.3 (9.9 ? 13.4) Mean: 11.7 (10.0 ? 14.6) Mean: 11.8 (10.0 - 14.1) Pediatric Reference ranges were obtained from a study by phillip Bolanos prepared from 1437 samples obtained at 7 different centers using the same coagulation reagent and instrumentation as [facility]. Currently there are no coagulation studies available worldwide for children to 14 days, and no normal ranges. Performed By: #### 1 [id number] #### [facility] [address] [place] [address] Troponin 0 Hr.on 12-01-2023 Troponin HS 5.10 pg/mL Low 10.10-27.10 [facility] Comment on above: Result Comment: The 95% CI (Confidence Interval) PPV (Positive Predictive Value) for myocardial infarction in females is 38 pg/mL, in males 51 pg/mL. The results should be used in conjunction with clinical conditions of myocardial infarction. (Access High Sensitivity Troponin I Instructions For Use, [employer], October 2017) Performed By: #### 1 [id number] #### [facility] [address] [place] [address] Troponin 1 Hr.on 12-01-2023 Troponin HS 5.20 pg/mL Low 10.10-27.10 [facility] Comment on above: Result Comment: The 95% CI (Confidence Interval) PPV (Positive Predictive Value) for myocardial infarction in females is 38 pg/mL, in males 51 pg/mL. The results should be used in conjunction with clinical conditions of myocardial infarction. (Remedify High Sensitivity Troponin I Instructions For Use, [employer], October 2017) Performed By: #### 1 [id number] #### [facility] [address] [place] [address] Troponin 3 Hr.on 12-01-2023 Troponin HS 4.80 pg/mL Low 10.10-27.10 [facility] Comment on above: Result Comment: The 95% CI (Confidence Interval) PPV (Positive Predictive Value) for myocardial infarction in females is 38 pg/mL, in males 51 pg/mL. The results should be used in conjunction with clinical conditions of myocardial infarction. (Access High Sensitivity Troponin I Instructions For Use, [employer], October 2017) Performed By: #### 1 [id number] #### [facility] [address] [place] [address] XR Chest Single Viewon 11-30 XR Chest Single View Exam Date/Time: 12/01/2023 14:38 EDT Reason for Exam: Chest pain Report IMPRESSION: No acute findings by portable radiography. EXAMINATION: XR Chest Single View Clinical History: Chest pain Comparison: 10/06/2023. RESULT: No consolidation. No pleural effusion. No pneumothorax. Probable scarring/atelectasis at the lung bases, similar to prior. Normal cardiomediastinal silhouette. No acute osseous findings. Ordering Provider: Casey Bush FINAL REPORT Dictated: 12/01/2023 2:43 pm Kelvin East MD. Signed (Electronic Signature): 12/01/2023 2:43 pm Signed by: Kelvin East MD Transcribed by: JOE Technologist: HAROLDO Technical Comments Radiation Dose: Ka,r in mGy = na DAP = na Normal [facility] eGFRon 12-01-2023 eGFR 105 mL/min/1.73 m2 Normal >=59 [facility] Comment on above: Order Comment: Order added by Discern Expert. Performed By: #### 1 [id number] #### [facility] [address] [place] [address] CT Head or Brain w/o Contras ton 11-19-2023 CT Head or Brain w/o Contrast Exam Date/Time: 11/18/2023 23:01 EDT Reason for Exam: Headache, sudden, severe;Headache Report IMPRESSION: NEGATIVE NONCONTRAST HEAD CT. EXAM: CT Head or Brain w/o Contrast DATE: 11/18/2023 10:58 PM CLINICAL HISTORY: Headache, Headache, sudden, severe. COMPARISON: 10/03/2022. TECHNIQUE: Routine. All CT scans at this facility use dose modulation, iterative reconstruction, and/or weight based dosing when appropriate to reduce radiation dose to as low as reasonably achievable. FINDINGS: There is no intracranial hemorrhage, mass effect, midline shift, extra-axial collection, evidence of hydrocephalus, skull fracture, or a recent ischemic infarct identified. There is no significant atrophy or white matter changes, for age. The mastoid air cells and visualized paranasal sinuses are essentially clear. Ordering Provider: Nimo Maurice FINAL REPORT Dictated: 11/19/2023 8:17 am Yousko MD, Steven J Signed (Electronic Signature): 11/19/2023 8:17 am Signed by: Steven Mancia MD Transcribed by: JOE Technologist: HALIE Montalvo [facility] ED Clinical Summaryon 2023 ED Clinical Summary ED Clinical Summary [address] [address] ED Clinical Summary Person Information Name: GIOVANNA STREETER [place] Age: 48 Years : 1975 Sex: Female Language: Comoran PCP: REBECCA NAVAS CNP Marital Status: Visit Id: Visit Reason: Nausea; Dizziness; Headache; SEEN LAST NIGHT - DIZZY / LIGHTHEADED / HEADACHE Speciality: Acuity: 3 Enc Type: Emergency Med Service: Emergency Arrival: 11/18/2023 22:11:37 Discharge: 11/19/2023 01:28:54 LOS: 000 03:17 Checkin: 11/18/2023 22:11:37 Checkout: 11/19/2023 01:28:54 Dispo Type: Home (Routine DC) EVENTS: Event Name Event Status Request Date/Time Start Date/Time Complete Date/Time Arrive Complete 11/18/2023 22:11:37 11/18/2023 22:11:37 11/18/2023 22:11:37 Document Home Meds Request 11/18/2023 22:11:37 Triage Complete 11/18/2023 22:11:37 11/18/2023 22:17:42 11/18/2023 22:17:42 Registration Complete 11/18/2023 22:15:17 11/18/2023 22:15:17 11/18/2023 22:15:17 Reg Complete Request 11/18/2023 22:15:17 Reg Bed Request Complete 11/18/2023 22:15:17 11/18/2023 22:15:17 11/18/2023 22:15:17 EKG Complete 11/18/2023 22:16:43 11/18/2023 22:30:27 Bed Assign Complete 11/18/2023 22:19:13 11/18/2023 22:19:13 11/18/2023 22:19:13 Dr Exam Complete 11/18/2023 22:19:13 11/18/2023 22:41:11 11/18/2023 22:41:11 RN Exam Complete 11/18/2023 22:19:13 11/18/2023 22:34:35 11/18/2023 22:34:35 Pending Labs Complete 11/18/2023 22:24:22 11/18/2023 22:24:22 11/18/2023 22:24:22 Registration Request 11/18/2023 22:41:11 Dr Exam Complete 11/18/2023 22:43:48 11/18/2023 22:43:48 11/18/2023 22:43:48 Meds Admin Complete 11/18/2023 22:49:19 11/18/2023 23:10:26 Pending Labs Complete 11/18/2023 22:49:19 11/18/2023 23:50:45 Lab Complete 11/18/2023 22:49:19 11/18/2023 23:50:45 CT Complete 11/18/2023 22:49:19 11/18/2023 22:58:25 11/18/2023 23:01:36 Pending Labs Complete 11/18/2023 23:18:06 11/18/2023 23:18:06 11/18/2023 23:50:45 Lab Complete 11/18/2023 23:18:06 11/18/2023 23:18:06 11/18/2023 23:50:45 Meds Admin Complete 11/19/2023 00:15:19 11/19/2023 00:22:50 Discharge Complete 11/19/2023 01:17:51 11/19/2023 01:28:58 11/19/2023 01:28:58 Transfer Complete 11/19/2023 01:28:58 11/19/2023 01:28:58 11/19/2023 01:28:58 ADDRESS: [address] [place] [id number] PHYS DOC NOTES: MEDICAL INFORMATION: Prescriptions Given: New Medications [facility] [id number], [address] [place] [id number], [phone] meclizine (meclizine 25 mg Tab) 1 Tablets By Mouth 3 times a day as needed for dizziness. Refills: 0. Medications to Continue Taking That Have Changed [facility] [id number], [address] [place] [id number], [phone] START: ondansetron (ondansetron 4 mg Dis Tab) 1 Tablets By Mouth every 6 hours as needed Nausea/Vomiting. Refills: 0. Other Medications START: ondansetron (Zofran ODT 4 mg Tab-Dis) 1 Tablets By Mouth every 8 hours as needed Nausea/Vomiting. Refills: 0. START: ondansetron (Zofran ODT 4 mg Tab-Dis) 1 Tablets By Mouth every 8 hours as needed Nausea/Vomiting. Refills: 0. START: ondansetron (Zofran ODT 4 mg Tab-Dis) 1 Tablets By Mouth every 8 hours. Refills: 0. Medications to Continue with No Changes Other Medications acetaminophen-hydrocod one ([place] 325 mg-5 mg oral tablet) 1 Tablets By Mouth every 4 hours as needed for pain. Refills: 0. APAP/butalbital/caffei ne (APAP/butalbital/caffe ine 325 mg-50 mg-40 mg Tab) 2 Tablets By Mouth every 6 hours as needed for headache. Refills: 0. atorvastatin (atorvastatin 20 mg Tab) 1 Tablets By Mouth every day. azithromycin (azithromycin 250 mg Tab) 250 Milligram By Mouth As Directed. Refills: 0. azithromycin (Zithromax) 250 Milligram By Mouth. brompheniramine/dextro methorphan/PSE (Bromfed DM oral syrup) 5 Milliliter By Mouth 4 times a day as needed for cough and congestion. Refills: 0. brompheniramine/dextro methorphan/PSE (Bromfed DM oral syrup) 5 Milliliter By Mouth 4 times a day as needed for cough and congestion. Refills: 0. cyclobenzaprine (cyclobenzaprine 10 mg Tab) 1 Tablets By Mouth 3 times a day as needed Muscle pain. Refills: 0. lisinopril 20 Milligram By Mouth every day. naproxen (Naprosyn 500 mg Tab) 1 Tablets By Mouth 2 times a day as needed for pain. Refills: 0. naproxen (Naprosyn 500 mg Tab) 1 Tablets By Mouth 2 times a day as needed for pain. Refills: 0. naproxen (Naprosyn 500 mg Tab) 1 Tablets By Mouth 2 times a day as needed for pain. Refills: 0. naproxen (naproxen 500 mg oral enteric coated tablet) 1 Tablets By Mouth 2 times a day as needed Pain. Refills: 0. naproxen (naproxen 500 mg Tab) 1 Tablets By Mouth 2 times a day as needed Pain. Refills: 0. omeprazole (omeprazole 20 mg Cap-DR) 1 Capsules By Mouth every day. predniSONE (predniSONE 20 mg Tab) 1 Tablets By Mouth As Directed. take two tabs daily for 5 days, then one tab daily for 5 days.. Refills: 0. PATIENT EDUCATION INFOR (more content not included)... Normal [facility] ED Note-Nursingon 11-19-2023 ED Note-Nursing ED Note-Nursing Patient stated that she is becoming way more dizzy right now and accusing this RN that Benadryl was given against her will. This RN spoke to patient and told the patient that Benadryl was not given at all. Francine JOHN made aware, assessed the patient. Normal [facility] ED Note-Physicianon 11-19-19 ED Note-Physician ED Note-Physician Basic Information Time Seen: Nimo Maurice PA-C 11/18/2023 22:41 Chief Complaint was seen last night. states still having headache. nausea and dizziness. History of Present Illness This patient presents emergency department chief complaint of headache, nausea, dizziness. The patient states she was seen here for the same last night, but her symptoms persist. The patient works here in [employer] and it was at work today when the symptoms came back. The patient denies any fevers chills or sweats. She denies any vomiting. She denies any chest pain or shortness of breath. She denies any urinary or bowel complaints. The patient does states she smokes cigarettes. She denies any alcohol or street drug use. She denies . She denies any sick contacts. Review of Systems Constitutional: Denies weight loss, fevers, chills, sweats, malaise Eyes: Denies visual changes, eye pain, double vision, scotomas, floaters ENT: Denies runny nose, epistaxis, sinus pain, ear pain, ringing in ears, tooth ache, sore throat, pain with swallowing Cardiovascular: Denies chest pain, shortness of breath, orthopnea, edema, palpitations, loss of consciousness, claudication Respiratory: Denies cough, sputum production, wheezing, hemoptysis, shortness of breath, dyspnea on exertion Gastrointestinal: Denies abdominal pain, unintentional weight loss, difficulty swallowing, indigestion, bloating, cramping, loss of appetite, vomiting, diarrhea, constipation, hematochezia, melena. + nausea Genitourinary: Denies any incontinence of urine, dysuria, hematuria, nocturia, polyuria, hesitancy, frequency, urgency, burning Musculoskeletal: Denies joint pain, morning stiffness, joint swelling, decreased range of motion, crepitus Integumentary: Denies any pruritus, rashes, lesions, wounds, petechiae Neurologic: Denies any changes in sight, smell, hearing, taste, seizures, paresthesia, numbness, weakness, balance disturbance. + headache, dizziness Psychiatric denies any depression, change in sleep patterns, anxiety, difficulty concentrating, paranoia, anhedonia, lack of energy, anahy Hematologic/lymphatic: Denies any purpura, petechiae, excessive bleeding, bruising Physical Exam Vitals & Measurements T: 36.4 ?C(Oral) HR: 84(Monitored) RR: 16 BP: 140/75 BP: 152/75(Standing) BP: 127/68(Supine) SpO2: 98% HT: 160 cm WT: 93.2 kg BMI: 36.41 Vital signs and nursing notes reviewed. General: Awake, alert, NAD. HEENT: Head is normocephalic, atraumatic. PERRL. EOMI. Sclerae are anicteric. External ears are normal. TMs are intact bilaterally. Canals are clear bilaterally. Nares are patent bilaterally. Oral mucosa is pink and moist. No lesions noted. Tongue protrudes in midline. Uvula rises with phonation. Neck is supple, no no palpable adenopathy. No JVD. Trachea is midline. Thorax: Symmetrical rise and fall Lungs: Clear to auscultation throughout all quesada, no wheezes, no crackles Heart: Regular rate and rhythm. No murmur, gallop, or rub Abdomen: No tenderness on palpation. Bowel sounds are present active and normal. No organomegaly. No palpable masses. No CVA tenderness. Extremities: Motor sensory pulses intact x4 extremities. No lower extremity edema. Skin: No lesions, rashes, ulcerations. No bruising or petechiae. Color appropriate, warm and dry Neuro: No oriented x3, no focal neuro deficits Psych: Mood and affect are normal Medical Decision Making MEDICAL DECISION MAKING Number and Complexity of Problems Differential Diagnosis: Migraine headache, benign positional vertigo, dehydration, electrolyte imbalance, acute lower urinary tract infection MDM Data External documents reviewed: Not applicable My EKG interpretation: Noted in chart if applicable My CT interpretation: Noted in chart if applicable My X-ray interpretation: Noted in chart if applicable My Ultrasound interpretation: Not applicable Decision rules/scores evaluated: Noted in chart if applicable Discussed with: Treatment and Disposition ED Course: Patient was interviewed and examined. Appropriate ER workup was initiated. Saline lock was established. Patient was given promethazine 25 mg IV piggyback. Patient refused the diphenhydramine. Patient is given 1 L normal saline wide open. White blood count 8.0, hemoglobin 13.0, hematocrit 37.1, platelets of 390. Sodium 140, potassium 3.7, chloride of 106, CO2 of 26, BUN of 15, creatinine 0.7, glucose 105, calcium 9.0. Upon reevaluation, the patient states she is still dizzy. I discussed with her that we will provide her with meclizine 25 mg orally. The patient states she does want to be able to go back to work. I will endorse this patient to the attending physician, Dr. Taylor for final diagnosis and disposition. Shared decision making: Code status: Not applicable CT of the brain shows no acute process. Patient remained stable here in the ED. She will be discharged with a course of oral meclizine as needed and she will (more content not included)... Normal [facility] Comment on above: Result Comment: Elec tronically Signed By: Nimo Maurice PA-C.br\Date and Time Signed: 11/19/23 00:44 EDT\.br\Electronically Co-Signed By: Donis Taylor DO.br\Date and Time Co-Signed: 11/19/23 01:19 EDT ED Patient Summaryon 024 ED Patient Summary ED Patient Summary [address] [address] Patient Discharge Instructions Person Information Name: GIOVANNA STREETER Age: 48 Years Arrival Date: 11/18/2023 22:11:37 Discharge Diagnosis: 1:Headache; 2:Vertigo Primary Care Physician: REBECCA NAVAS CNP Provider Information Primary Provider: Donis Taylor DO Advanced Cigarette Lighter Repairer:None The exam and treatment you received in the Emergency Department were for an urgent problem and are not intended as complete care. It is important that you follow up with a doctor, nurse practitioner, or physician?s medical assistant float for ongoing care. If your symptoms become worse or you do not improve as expected and you are unable to reach your usual health care provider, you should return to the Emergency Department. We are available 24 hours a day. GIOVANNA STREETER has been given the following list of patient education materials, prescriptions and follow-up instructions: Follow-up Instructions: With: Address: When: REBECCA NAVAS [address] [place] [address] In 3 days 11/22/2023 In the event that this physician does not participate in your insurance network, please consult with your insurance company to find a nearby participating provider. Patient Education Materials: General Headache Without Cause, Gehv-ck-Lawd; Vertigo, Apzs-wx-Vpmz; How to Perform the Jarocho Maneuver A MESSAGE TO ALL PATIENTS REGARDING OPIOIDS PRESCRIPTION OPIOIDS: WHAT YOU NEED TO KNOW Prescription opioids can be used to help relieve kucfhzra-po-zkbcob pain and are often prescribed following a surgery or injury, or for certain health conditions. These medications can be an important part of the treatment but also come with serious risks. It is important to work with your healthcare provider to make sure you are getting the safest, most effective care. WHAT ARE THE RISKS AND SIDE EFFECTS OF OPIOID USE? Prescription opioids carry serious risks of addiction and overdose, especially with prolonged use. An opioid overdose, often marked by slowed breathing, can cause sudden . The use of prescription opioids can have a number of side effects as well, even when taken as directed: ? Tolerance?meaning you might need to take more of the medication for the same pain relief ? Physical dependence?meaning you have symptoms of withdrawal when a medication is stopped ? Increased sensitivity to pain ? Constipation ? Nausea, vomiting, and dry mouth ? Sleepiness and dizziness ? Confusion ? Depression ? Low levels of testosterone that can result in lower sex drive, energy, and strength ? Itching and sweating RISKS ARE GREATER WITH: ? History of drug misuse, substance use disorder, or overdose ? Mental health conditions (such as depression or anxiety) ? Sleep apnea ? Older age (65 years and older) ? Avoid alcohol while taking prescription opioids. Also, unless specifically advised by your health care provider, medications to avoid include: ? Benzodiazepines (such as Xanax or Valium) ? Muscle relaxants (such as Soma or Flexeril) ? Hypnotics (such as Ambien or Lunesta) ? Other prescription opioids KNOW YOUR OPTIONS Talk to your health care provider about ways to manage your pain that don?t involve prescription opioids. Some of these options may actually work better and have fewer risks and side effects. Options may include: ? Pain relievers such as acetaminophen, ibuprofen, and naproxen ? Some medication that are also used for depression or seizures ? Physical therapy and exercise ? Cognitive behavioral therapy, a psychological, goal-directed approach, in which patients learn how to modify physical, behavioral, and emotional triggers of pain and stress. IF YOU ARE PRESCRIBED OPIOIDS FOR PAIN: ? Never take opioids in greater amounts or more often than prescribed. ? Follow up with your primary health care provider. o Work together to create a plan on how to manage your pain. o Talk about ways to help manage your pain that don?t involve prescription opioids. o Talk about any and all concerns and side effects. ? Help prevent misuse and abuse o Never sell or share prescription opioids. o Never use another person?s prescription opioids. ? Store prescription opioids in a secure place and out of reach of others (this may include visitors, children, friends, and family). ? Safely dispose of unused prescription opioids: Find your community drug take-back program or your pharmacy mail-back program, or flush them down the toilet, following guidance from the Food and Drug Administration (www.fda.gov/Drugs/Res ourcesForYou). ? Visit www.cdc.gov/drugoverdo se to learn about the risks of opioids abuse and overdose. ? If you believe you may be struggling with addiction, tell your health care provider and ask for guidance or call [facility] (more content not included)... Normal [facility] BMPon 11-18-2023 Anion gap [Moles/Vol] 12 mmol/L Normal 6-16 [facility] Comment on above: Order Comment: delay per patient in CT, Barron nurse will start IV and draw labs Performed By: #### 2 [id number] #### [facility] [address] [place] [address] Calcium [Mass/Vol] 9.0 mg/dL Normal 8.9-11.1 [facility] Comment on above: Order Comment: delay per patient in CT, Barron nurse will start IV and draw labs Performed By: #### 2 [id number] #### [facility] [address] [place] [address] Chloride [Moles/Vol] 106 mmol/L Normal 101-111 [facility] Comment on above: Order Comment: delay per patient in CT, Barron nurse will start IV and draw labs Performed By: #### 2 [id number] #### [facility] [address] [place] [address] CO2 [Moles/Vol] 26 mmol/L Normal 21-31 [facility] Comment on above: Order Comment: delay per patient in CT, Barron nurse will start IV and draw labs Performed By: #### 2 [id number] #### [facility] [address] [place] [address] Creatinine [Mass/Vol] 0.7 mg/dL Normal 0.5-1.3 [facility] Comment on above: Order Comment: delay per patient in CT, Barron nurse will start IV and draw labs Performed By: #### 2 [id number] #### [facility] [address] [place] [address] Glucose [Mass/Vol] 105 mg/dL Normal 55-199 [facility] Comment on above: Order Comment: delay per patient in CT, Barron nurse will start IV and draw labs Performed By: #### 2 [id number] #### [facility] [address] [place] [address] Potassium [Moles/Vol] 3.7 mmol/L Normal 3.5-5.3 [facility] Comment on above: Order Comment: delay per patient in CT, Barron nurse will start IV and draw labs Performed By: #### 2 [id number] #### [facility] [address] [place] [address] Sodium [Moles/Vol] 140 mmol/L Normal 135-145 [facility] Comment on above: Order Comment: delay per patient in CT, Barron nurse will start IV and draw labs Performed By: #### 2 [id number] #### [facility] [address] [place] [address] Urea nitrogen [Mass/Vol] 15 mg/dL Normal 5-21 [facility] Comment on above: Order Comment: delay per patient in CT, Barron nurse will start IV and draw labs Performed By: #### 2 [id number] #### [facility] [address] [place] [address] Urea nitrogen/Creatinine [Mass ratio] 21 No Units High 10-20 [facility] Comment on above: Order Comment: delay per patient in CT, Barron nurse will start IV and draw labs Performed By: #### 2 [id number] #### [facility] [address] [place] [address] Anion gap [Moles/Vol] 13 mmol/L Normal 6-16 [facility] Comment on above: Performed By: #### 2 [id number] #### [facility] [address] [place] [address] Calcium [Mass/Vol] 9.4 mg/dL Normal 8.9-11.1 [facility] Comment on above: Performed By: #### 2 [id number] #### [facility] [address] [place] [address] Chloride [Moles/Vol] 105 mmol/L Normal 101-111 [facility] Comment on above: Performed By: #### 2 [id number] #### [facility] [address] [place] [address] CO2 [Moles/Vol] 24 mmol/L Normal 21-31 [facility] Comment on above: Performed By: #### 2 [id number] #### [facility] [address] [place] [address] Creatinine [Mass/Vol] 0.6 mg/dL Normal 0.5-1.3 [facility] Comment on above: Performed By: #### 2 [id number] #### [facility] [address] [place] [address] Glucose [Mass/Vol] 112 mg/dL Normal 55-199 [facility] Comment on above: Performed By: #### 2 [id number] #### [facility] [address] [place] [address] Potassium [Moles/Vol] 3.4 mmol/L Low 3.5-5.3 [facility] Comment on above: Performed By: #### 2 [id number] #### [facility] [address] [place] [address] Sodium [Moles/Vol] 139 mmol/L Normal 135-145 [facility] Comment on above: Performed By: #### 2 [id number] #### [facility] [address] [place] [address] Urea nitrogen [Mass/Vol] 12 mg/dL Normal 5-21 [facility] Comment on above: Performed By: #### 2 [id number] #### [facility] [address] [place] [address] Urea nitrogen/Creatinine [Mass ratio] 20 No Units Normal 10-20 [facility] Comment on above: Performed By: #### 2 [id number] #### [facility] [address] [place] [address] CBC w/ Auto Diffon 4 Basophils/100 WBC (Bld) 0.5 % Normal 0.0-2.0 [facility] Comment on above: Order Comment: delay per patient in CT, Barron nurse will start IV and draw labs Performed By: #### 2 [id number] #### [facility] [address] [place] [address] Basophils/Leukocytes Auto (Bld) [Pure # fraction] 0.0 E9/L Normal 0.0-0.2 [facility] Comment on above: Order Comment: delay per patient in CT, Barron nurse will start IV and draw labs Performed By: #### 2 [id number] #### [facility] [address] [place] [address] Eosinophils (Bld) [#/Vol] 0.3 E9/L Normal 0.0-0.5 [facility] Comment on above: Order Comment: delay per patient in CT, Barron nurse will start IV and draw labs Performed By: #### 2 [id number] #### [facility] [address] [place] [address] Eosinophils/100 WBC (Bld) 3.6 % Normal 0.0-8.0 [facility] Comment on above: Order Comment: delay per patient in CT, Barron nurse will start IV and draw labs Performed By: #### 2 [id number] #### [facility] [address] [place] [address] Erythrocyte distribution width (RBC) [Ratio] 14.7 % High 10.9-14.2 [facility] Comment on above: Order Comment: delay per patient in CT, Barron nurse will start IV and draw labs Performed By: #### 2 [id number] #### [facility] [address] [place] [address] Hematocrit (Bld) [Volume fraction] 37.1 % Normal 34.0-46.0 [facility] Comment on above: Order Comment: delay per patient in CT, Barron nurse will start IV and draw labs Performed By: #### 2 [id number] #### [facility] [address] [place] [address] Hemoglobin (Bld) [Mass/Vol] 13.0 g/dL Normal 12.0-16.0 [facility] Comment on above: Order Comment: delay per patient in CT, Barron nurse will start IV and draw labs Performed By: #### 2 [id number] #### [facility] [address] [place] [address] Lymphocytes (Bld) [#/Vol] 2.3 E9/L Normal 1.0-4.0 [facility] Comment on above: Order Comment: delay per patient in CT, Barron nurse will start IV and draw labs Performed By: #### 2 [id number] #### [facility] [address] [place] [address] Lymphocytes/100 WBC (Bld) 28.5 % Normal 14.0-50.0 [facility] Comment on above: Order Comment: delay per patient in CT, Barron nurse will start IV and draw labs Performed By: #### 2 [id number] #### [facility] [address] [place] [address] MCH (RBC) [Entitic mass] 31.0 pg Normal 27.0-34.0 [facility] Comment on above: Order Comment: delay per patient in CT, Barron nurse will start IV and draw labs Performed By: #### 2 [id number] #### [facility] [address] [place] [address] MCHC (RBC) [Mass/Vol] 34.9 g/dL Normal 31.4-36.0 [facility] Comment on above: Order Comment: delay per patient in CT, Barron nurse will start IV and draw labs Performed By: #### 2 [id number] #### [facility] [address] [place] [address] MCV (RBC) [Entitic vol] 88.6 fL Normal 80.0-100.0 [facility] Comment on above: Order Comment: delay per patient in CT, Barron nurse will start IV and draw labs Performed By: #### 2 [id number] #### [facility] [address] [place] [address] Monocytes (Bld) [#/Vol] 0.6 E9/L Normal 0.2-1.0 [facility] Comment on above: Order Comment: delay per patient in CT, Barron nurse will start IV and draw labs Performed By: #### 2 [id number] #### [facility] [address] [place] [address] Neutrophils (Bld) [#/Vol] 4.8 E9/L Normal 2.0-7.5 [facility] Comment on above: Order Comment: delay per patient in CT, Barron nurse will start IV and draw labs Performed By: #### 2 [id number] #### [facility] [address] [place] [address] Neutrophils/100 WBC (Bld) 60.2 % Normal 36.0-75.0 [facility] Comment on above: Order Comment: delay per patient in CT, Barron nurse will start IV and draw labs Performed By: #### 2 [id number] #### [facility] [address] [place] [address] Platelet 390.0 E9/L Normal 150.0-500.0 [facility] Comment on above: Order Comment: delay per patient in CT, Barron nurse will start IV and draw labs Performed By: #### 2 [id number] #### [facility] [address] [place] [address] Platelet mean volume (Bld) [Entitic vol] 7.6 fL Normal 6.4-10.8 [facility] Comment on above: Order Comment: delay per patient in CT, Barron nurse will start IV and draw labs Performed By: #### 2 [id number] #### [facility] [address] [place] [address] RBC (Bld) [#/Vol] 4.2 E12/L Low 4.3-5.9 [facility] Comment on above: Order Comment: delay per patient in CT, Barron nurse will start IV and draw labs Performed By: #### 2 [id number] #### [facility] [address] [place] [address] WBC corrected for nucl RBC Auto (Bld) [#/Vol] 8.0 E9/L Normal 4.0-11.0 [facility] Comment on above: Order Comment: delay per patient in CT, Barron nurse will start IV and draw labs Performed By: #### 2 [id number] #### [facility] [address] [place] [address] Basophils/100 WBC (Bld) 0.4 % Normal 0.0-2.0 [facility] Comment on above: Performed By: #### 2 [id number] #### [facility] [address] [place] [address] Basophils/Leukocytes Auto (Bld) [Pure # fraction] 0.0 E9/L Normal 0.0-0.2 [facility] Comment on above: Performed By: #### 2 [id number] #### [facility] [address] [place] [address] Eosinophils (Bld) [#/Vol] 0.3 E9/L Normal 0.0-0.5 [facility] Comment on above: Performed By: #### 2 [id number] #### [facility] [address] [place] [address] Eosinophils/100 WBC (Bld) 3.0 % Normal 0.0-8.0 [facility] Comment on above: Performed By: #### 2 [id number] #### [facility] [address] [place] [address] Erythrocyte distribution width (RBC) [Ratio] 14.4 % High 10.9-14.2 [facility] Comment on above: Performed By: #### 2 [id number] #### [facility] [address] [place] [address] Hematocrit (Bld) [Volume fraction] 38.4 % Normal 34.0-46.0 [facility] Comment on above: Performed By: #### 2 [id number] #### [facility] [address] [place] [address] Hemoglobin (Bld) [Mass/Vol] 13.1 g/dL Normal 12.0-16.0 [facility] Comment on above: Performed By: #### 2 [id number] #### [facility] [address] [place] [address] Lymphocytes (Bld) [#/Vol] 3.0 E9/L Normal 1.0-4.0 [facility] Comment on above: Performed By: #### 2 [id number] #### [facility] [address] [place] [address] Lymphocytes/100 WBC (Bld) 30.3 % Normal 14.0-50.0 [facility] Comment on above: Performed By: #### 2 [id number] #### [facility] [address] [place] [address] MCH (RBC) [Entitic mass] 30.1 pg Normal 27.0-34.0 [facility] Comment on above: Performed By: #### 2 [id number] #### [facility] [address] [place] [address] MCHC (RBC) [Mass/Vol] 34.1 g/dL Normal 31.4-36.0 [facility] Comment on above: Performed By: #### 2 [id number] #### [facility] [address] [place] [address] MCV (RBC) [Entitic vol] 88.4 fL Normal 80.0-100.0 [facility] Comment on above: Performed By: #### 2 [id number] #### [facility] [address] [place] [address] Monocytes (Bld) [#/Vol] 0.6 E9/L Normal 0.2-1.0 [facility] Comment on above: Performed By: #### 2 [id number] #### [facility] [address] [place] [address] Neutrophils (Bld) [#/Vol] 6.0 E9/L Normal 2.0-7.5 [facility] Comment on above: Performed By: #### 2 [id number] #### [facility] [address] [place] [address] Neutrophils/100 WBC (Bld) 60.3 % Normal 36.0-75.0 [facility] Comment on above: Performed By: #### 2 [id number] #### [facility] [address] [place] [address] Platelet mean volume (Bld) [Entitic vol] 7.8 fL Normal 6.4-10.8 [facility] Comment on above: Performed By: #### 2 [id number] #### [facility] [address] [place] [address] Platelets (Bld) [#/Vol] 378.0 E9/L Normal 150.0-500.0 [facility] Comment on above: Performed By: #### 2 [id number] #### [facility] [address] [place] [address] RBC (Bld) [#/Vol] 4.3 E12/L Normal 4.3-5.9 [facility] Comment on above: Performed By: #### 2 [id number] #### [facility] [address] [place] [address] WBC corrected for nucl RBC Auto (Bld) [#/Vol] 9.9 E9/L Normal 4.0-11.0 [facility] Comment on above: Performed By: #### 2 [id number] #### [facility] [address] [place] [address] CHEMISTRYOrdered By: SYSTEM SYSTEM on 11-18-2023 Anion gap [Moles/Vol] 12 mmol/L Normal 6 - 16 mEq/L Remisol Chem Calcium [Mass/Vol] 9.0 mg/dL Normal 8.9 - 11. 1 mg/dL [facility] Chloride [Moles/Vol] 106 mmol/L Normal 101 - 1 11 mmol/L [facility] CO2 [Moles/Vol] 26 mmol/L Normal 21 - 31 mmol/L [facility] Creatinine [Mass/Vol] 0.7 mg/dL Normal 0.5 - 1.3 mg/dL [facility] eGFR 105 mL/min/1.73 m2 Normal >=59mL/mi n/ 1.73 m2 [facility] Glucose [Mass/Vol] 105 mg/dL Normal 55 - 199 mg/dL [facility] Potassium [Moles/Vol] 3.7 mmol/L Normal 3.5 - 5.3 mmol/L [facility] Sodium [Moles/Vol] 140 mmol/L Normal 135 - 145 mmol/L [facility] Urea nitrogen [Mass/Vol] 15 mg/dL Normal 5 - 21 mg/dL [facility] Urea nitrogen/Creatinine [Mass ratio] 21 mg/mg High 10 - 20 [facility] Albumin [Mass/Vol] 4.2 g/dL Normal 3.3 - 5.0 gm/dL [facility] Albumin/Globulin [Mass ratio] 1.4 {ratio} Normal 1.1 - 2.2 [facility] ALP [Catalytic activity/Vol] 77 [iU]/d Normal 21 - 98 Int._Unit/L Remisol Chem ALT No additional P-5'-P [Catalytic activity/Vol] 17 [iU]/d Normal 6 - 46 Int._Unit/L [facility] Anion gap [Moles/Vol] 13 mmol/L Normal 6 - 16 mEq/L [facility] AST [Catalytic activity/Vol] 15 [iU]/d Normal 5 - 43 Int._Unit/L [facility] Bilirubin [Mass/Vol] 0.2 mg/dL Normal 0.0 - 1 .1 mg/dL [facility] Bilirubin.direct [Mass/Vol] 0.1 mg/dL Normal 0.0 - 0.4 mg/dL [facility] Bilirubin.indirect [Mass or moles/Vol] 0.1 mg/dL Normal 0.1 - 0.9 mg/dL [facility] Calcium [Mass/Vol] 9.4 mg/dL Normal 8.9 - 11. 1 mg/dL [facility] Chloride [Moles/Vol] 105 mmol/L Normal 101 - 1 11 mmol/L [facility] CO2 [Moles/Vol] 24 mmol/L Normal 21 - 31 mmol/L [facility] Creatinine [Mass/Vol] 0.6 mg/dL Normal 0.5 - 1.3 mg/dL [facility] eGFR 109 mL/min/1.73 m2 Normal >=59mL/mi n/ 1.73 m2 [facility] Globulin (S) [Mass/Vol] 2.9 g/dL Normal 1.4 - 4.0 gm/dL [facility] Glucose [Mass/Vol] 112 mg/dL Normal 55 - 199 mg/dL [facility] Lipase [Catalytic activity/Vol] 80 U/L High 13 - 58 unit/L [facility] Potassium [Moles/Vol] 3.4 mmol/L Low 3.5 - 5.3 mmol/L [facility] Protein [Mass/Vol] 7.1 g/dL Normal 6.0 - 7.8 gm/dL [facility] Sodium [Moles/Vol] 139 mmol/L Normal 135 - 145 mmol/L [facility] Urea nitrogen [Mass/Vol] 12 mg/dL Normal 5 - 21 mg/dL [facility] Urea nitrogen/Creatinine [Mass ratio] 20 mg/mg Normal 10 - 20 [facility] CHEMISTRYOrdered By: Lab ROP User on 11-18-2023 Glucose [Mass/Vol] 126 mg/dL High 55 - 99 mg/dL [facility] Subsection Comment on above: Result Comment: Parth martinez RN/ POC Device SN [id number] 1 Invalid Interpretation Code FT POC Subsection POC User ID [id number] 1 Invalid Interpretation Code [facility] POC Subsection POC Username ROSARIO ROQUE Invalid Interpretation Code [facility] POC Subsection Glucose [Mass/Vol] 100 mg/dL High 55 - 99 mg/dL [facility] P[facility] Subsection Comment on above: Result Comment: Parth mratinez RN/ POC Device SN [id number] 1 Invalid Interpretation Code [facility] POC Subsection POC User ID [id number] 1 Invalid Interpretation Code [facility] POC Subsection POC Username EVELYN GALEANO Invalid Interpretation Code [facility] P[place] Subsection CT Abdomen/Pelvis w/o Contra ston 11-18-2023 CT Abdomen/Pelvis w/o Contrast Exam Date/Time: 11/18/2023 02:00 EDT Reason for Exam: ABDOMINAL PAIN, ACUTE, NONLOCALIZED;Other (please specify) Report IMPRESSION: NO ACUTE INTRA-ABDOMINAL PROCESS IDENTIFIED. APPROXIMATELY 2 CM INCOMPLETELY INCLUDED ASYMMETRIC DENSITY LATERAL LEFT BREAST. ELECTIVE FOLLOW-UP DIAGNOSTIC MAMMOGRAPHY IS SUGGESTED; UNLESS BREAST IMAGING HAS BEEN PERFORMED ELSEWHERE. CLINICAL HISTORY: ABDOMINAL PAIN, ACUTE, NONLOCALIZED. COMPARISON: 01/21/2023. TECHNIQUE: Spiral unenhanced images were obtained of the abdomen and pelvis without contrast. All CT scans at this facility use dose modulation, iterative reconstruction, and/or weight based dosing when appropriate to reduce radiation dose to as low as reasonably achievable. Unless otherwise stated, incidental findings identified in this report do not require routine follow-up imaging. FINDINGS: Liver: No enlargement, significant fatty infiltration, or suspicious lesion identified without contrast. Biliary: The gallbladder is unremarkable. No abnormal biliary ductal dilatation. Pancreas: No mass, organized fluid collection, or abnormal pancreatic ductal dilatation. Spleen: Unremarkable. Adrenals: Unremarkable. Kidneys: No significant urinary tract calculi or suspicious mass. GI tract: No abnormal dilation or wall thickening. Small hiatal hernia. Mild descending and sigmoid diverticulosis. Normal appendix. Lymph nodes: No pathologically enlarged lymph nodes. Mesentery/peritoneum: No organized fluid collection, ascites, focal inflammatory changes, or mass. Retroperitoneum: No organized fluid collection, focal inflammatory changes or mass. Vasculature: No aneurysm. Mild to moderate calcific plaquing. Pelvis: Tubal ligation clips in expected position. The urinary bladder, uterus, and adnexa are otherwise unremarkable. No suspicious mass, organized fluid collection, or ascites. Bones/soft tissue: No acute osseous findings identified. Mild to moderate degenerative changes of the thoracolumbar spine. Lower thorax: Incompletely included nonspecific approximately 2 cm asymmetric density within the lateral left breast (image 1 - axial series 2 . Mild probable predominantly dependent atelectasis of the visualized lung bases. Report Ordering Provider: Donis Taylor FINAL REPORT Dictated: 11/18/2023 2:18 am Steven Mancia MD Signed (Electronic Signature): 11/18/2023 2:18 am Signed by: Steven Mancia MD Transcribed by: JOE Technologist: AMD Technical Comments Rectal Contrast Given? No Oral contrast amount in ml's: 0 Normal [facility] Capillary Glucose POCon 10-30 Glucose [Mass/Vol] 126 mg/dL High 55-99 [facility] Comment on above: Result Comment: Parth HOLLEY Performed By: #### 2 [id number] #### [facility] [address] [place] [address] Glucose [Mass/Vol] 100 mg/dL High 55-99 [facility] Comment on above: Result Comment: Parth HOLLEY Performed By: #### 2 [id number] #### [facility] [address] [place] [address] ED Clinical Summaryon 2023 ED Clinical Summary ED Clinical Summary [address] [address] ED Clinical Summary Person Information Name: GIOVANNA STREETER [place] Age: 48 Years : 1975 Sex: Female Language: Comoran PCP: REBECCA NAVAS CNP Marital Status: MRN: Visit Id: Visit Reason: Flank pain; Dizziness; Nausea; dizzy, sweats Speciality: Acuity: 3 Enc Type: Emergency Med Service: Emergency Arrival: 11/18/2023 00:56:23 Discharge: 11/18/2023 02:40:47 LOS: 000 01:44 Checkin: 11/18/2023 00:56:23 Checkout: 11/18/2023 02:40:47 Dispo Type: Home (Routine DC) EVENTS: Event Name Event Status Request Date/Time Start Date/Time Complete Date/Time Arrive Complete 11/18/2023 00:56:23 11/18/2023 00:56:23 11/18/2023 00:56:23 Document Home Meds Request 11/18/2023 00:56:23 Triage Complete 11/18/2023 00:56:23 11/18/2023 01:02:31 11/18/2023 01:02:31 Registration Complete 11/18/2023 00:58:21 11/18/2023 00:58:21 11/18/2023 00:58:21 Reg Complete Request 11/18/2023 00:58:21 Reg Bed Request Complete 11/18/2023 00:58:21 11/18/2023 00:58:21 11/18/2023 00:58:21 EKG Complete 11/18/2023 01:00:21 11/18/2023 01:11:47 Bed Assign Complete 11/18/2023 01:02:37 11/18/2023 01:02:37 11/18/2023 01:02:37 Dr Exam Complete 11/18/2023 01:02:37 11/18/2023 01:05:33 11/18/2023 01:05:33 RN Exam Complete 11/18/2023 01:02:37 11/18/2023 01:44:35 11/18/2023 01:44:35 Registration Request 11/18/2023 01:05:33 Pending Labs Complete 11/18/2023 01:14:12 11/18/2023 01:14:12 11/18/2023 01:14:12 CT Complete 11/18/2023 01:23:38 11/18/2023 01:34:03 11/18/2023 02:00:08 Meds Admin Complete 11/18/2023 01:23:38 11/18/2023 01:40:26 Pending Labs Complete 11/18/2023 01:23:38 11/18/2023 02:23:02 Lab Complete 11/18/2023 01:23:38 11/18/2023 02:12:29 Patient Care Complete 11/18/2023 01:23:38 11/18/2023 02:06:17 Pending Labs Complete 11/18/2023 01:42:05 11/18/2023 01:42:05 11/18/2023 02:12:29 Lab Complete 11/18/2023 01:42:05 11/18/2023 01:42:05 11/18/2023 02:12:29 Discharge Complete 11/18/2023 02:35:29 11/18/2023 02:40:52 11/18/2023 02:40:52 Transfer Complete 11/18/2023 02:40:52 11/18/2023 02:40:52 11/18/2023 02:40:52 ADDRESS: [address] [place] [id number] PHYS DOC NOTES: MEDICAL INFORMATION: Prescriptions Given: Medications to Continue Taking That Have Changed [facility] [id number], [place], [place] [id number], [phone] START: naproxen (naproxen 500 mg Tab) 1 Tablets By Mouth 2 times a day as needed Pain. Refills: 0. START: ondansetron (Zofran ODT 4 mg Tab-Dis) 1 Tablets By Mouth every 8 hours as needed Nausea/Vomiting. Refills: 0. Other Medications START: naproxen (Naprosyn 500 mg Tab) 1 Tablets By Mouth 2 times a day as needed for pain. Refills: 0. START: naproxen (Naprosyn 500 mg Tab) 1 Tablets By Mouth 2 times a day as needed for pain. Refills: 0. START: naproxen (Naprosyn 500 mg Tab) 1 Tablets By Mouth 2 times a day as needed for pain. Refills: 0. START: naproxen (naproxen 500 mg oral enteric coated tablet) 1 Tablets By Mouth 2 times a day as needed Pain. Refills: 0. START: ondansetron (Zofran ODT 4 mg Tab-Dis) 1 Tablets By Mouth every 8 hours as needed Nausea/Vomiting. Refills: 0. START: ondansetron (Zofran ODT 4 mg Tab-Dis) 1 Tablets By Mouth every 8 hours. Refills: 0. Medications to Continue with No Changes Other Medications acetaminophen-hydrocod one ([place] 325 mg-5 mg oral tablet) 1 Tablets By Mouth every 4 hours as needed for pain. Refills: 0. APAP/butalbital/caffei ne (APAP/butalbital/caffe ine 325 mg-50 mg-40 mg Tab) 2 Tablets By Mouth every 6 hours as needed for headache. Refills: 0. atorvastatin (atorvastatin 20 mg Tab) 1 Tablets By Mouth every day. azithromycin (azithromycin 250 mg Tab) 250 Milligram By Mouth As Directed. Refills: 0. brompheniramine/dextro methorphan/PSE (Bromfed DM oral syrup) 5 Milliliter By Mouth 4 times a day as needed for cough and congestion. Refills: 0. brompheniramine/dextro methorphan/PSE (Bromfed DM oral syrup) 5 Milliliter By Mouth 4 times a day as needed for cough and congestion. Refills: 0. cyclobenzaprine (cyclobenzaprine 10 mg Tab) 1 Tablets By Mouth 3 times a day as needed Muscle pain. Refills: 0. lisinopril 20 Milligram By Mouth every day. predniSONE (predniSONE 20 mg Tab) 1 Tablets By Mouth As Directed. take two tabs daily for 5 days, then one tab daily for 5 days.. Refills: 0. PATIENT EDUCATION INFORMATION: Instructions: Flank Pain, Adult Follow up: With: Address: When: REBECCA NAVAS [address] [place] [address] In 3 days DIAGNOSIS: Flank pain Normal [facility] ED Note-Physicianon 11-18-19 ED Note-Physician ED Note-Physician Basic Information Time Seen: Donis Taylor DO 11/18/2023 01:05 Chief Complaint dizziness today. diaphoretic. nausea. left flank pain. History of Present Illness HPI: Patient is a 48-year-old female with past medical history of hypertension and kidney stones who presents the ED for lightheadedness, nausea, and left flank pain. Patient states this all started yesterday morning and progressively worsened throughout the day. She denies any fever or chills. She denies any change in bowel movements. This does feel somewhat similar to when she had a kidney stone many years ago. ROS: Pertinent review of systems conducted and is negative except as noted above. Physical exam: General: nontoxic appearing and in no distress HEENT: Mucous membranes moist Neuro: awake and alert Neck: supple, trachea midline Card: Heart regular rate and rhythm no murmur Resp: Lungs clear to auscultation no wheeze or rhonchi Abd: Soft and nondistended. No tenderness to palpation with no rebound or guarding. Left CVA tenderness. Ext: No gross deformity or edema Physical Exam Vitals & Measurements T: 36.5 ?C(Oral) HR: 95(Peripheral) RR: 16 BP: 119/68 BP: 177/113(Standing) BP: 135/83(Supine) SpO2: 96% HT: 160 cm WT: 93.2 kg BMI: 36.41 Medical Decision Making MEDICAL DECISION MAKING Number and Complexity of Problems Differential Diagnosis: [] [facility] Data External documents reviewed: N/A My EKG interpretation: Noted in chart if applicable My CT interpretation: N/A My X-ray interpretation: Noted in chart if applicable My Ultrasound interpretation: N/A Decision rules/scores evaluated: N/A Discussed with: N/A Treatment and Disposition ED Course: Patient is nontoxic. No distress. She does have some left-sided CVA tenderness. Will obtain a CT of the abdomen pelvis in addition to blood work and urinalysis. Patient was given IV fluids as well as Zofran and Toradol for symptoms. Lab work shows a mild elevation in lipase in the ED but is otherwise overall reassuring. Urine shows no signs of infection. CT of the abdomen pelvis shows a possible asymmetrical density in the breast but is negative for other acute process. On examination the patient is feeling much improved. We discussed the plan of discharge with prescriptions for Zofran and Peroxin as needed. She will continue oral hydration and closely follow-up with her primary care physician on outpatient basis. Shared decision making: As above Code status: N/A Assessment/Plan Flank pain (R10.9: Unspecified abdominal pain) Orders: ketorolac, 15 mg = 1 mL, Injection, IV Push, Once, Stop date 11/18/23 1:23:00 EDT, STAT, Start date 11/18/23 1:23:00 EDT, 11/18/23 1:23:00 EDT naproxen, 500 mg = 1 tab(s), Oral, BID, PRN Pain, # 10 tab(s), Refills(s) 0, Pharmacy: [facility] [id number], 160, cm, 11/18/23 1:02:00 EDT, Height/Length Dosing, 93.2, kg, 11/18/23 1:02:00 EDT, Weight Dosing ondansetron, 4 mg = 1 tab(s), Oral, q8hr, PRN Nausea/Vomiting, # 12 tab(s), Refills(s) 0, Pharmacy: [facility] [id number], 160, cm, 11/18/23 1:02:00 EDT, Height/Length Dosing, 93.2, kg, 11/18/23 1:02:00 EDT, Weight Dosing ondansetron, 4 mg = 2 mL, Injection, IV Push, Once, Stop date 11/18/23 1:23:00 EDT, STAT, Start date 11/18/23 1:23:00 EDT, 11/18/23 1:23:00 EDT Sodium Chloride 0.9% intravenous solution, 1,000 mL, Soln-IV, IV, Once, Stop date 11/18/23 1:23:00 EDT, STAT, Start date 11/18/23 1:23:00 EDT, Infuse over 61, minute(s) Basic Metabolic Panel Capillary Glucose POC CBC w/ Auto Diff CT Abdomen/Pelvis w/o Contrast eGFR Hepatic Function Panel Lipase Level Saline Lock Insert UA with Cult Rflx Medications Administered Given ketorolac 15 mg/mL Inj, 15 mg, IV Push NS 1000 ml Bolus, 1000 mL, IV ondansetron 4 mg/2 mL Inj, 4 mg, IV Push Disposition Plan Discharge Prescription List Prescriptions naproxen 500 mg Tab, 500 mg= 1 tab(s), Oral, BID, PRN Zofran ODT 4 mg Tab-Dis, 4 mg= 1 tab(s), Oral, q8hr, PRN Follow-up With When Contact Information REBECCA BUCIOBRIDGETT In 3 days [address] [place] [address]- Additional Instructions: Patient Education Flank Pain, Adult Problem List/Past Medical History Ongoing Asymptomatic microscopic hematuria BMI 33.0-33.9,adult Cystitis Dysuria Smoker Stress incontinence Umbilical hernia Historical Hypertension Procedure/Surgical History Bilateral tubal ligation. Medications Inpatient ketorolac 15 mg/mL Inj, 15 mg= 1 mL, IV Push, Once NS 1000 ml Bolus, 1000 mL, IV, Once ondansetron 4 mg/2 mL Inj, 4 mg= 2 mL, IV Push, Once Home APAP/butalbital/caffei ne 325 mg-50 mg-40 mg Tab, 2 tab(s), Oral, q6hr, PRN atorvastatin 20 mg Tab, 20 mg= 1 tab(s), Oral, Daily, Not taking: states she is not taking any daily meds at this time. azithromycin 250 mg Tab, 250 mg, Oral, As Directed Bromfed DM oral syrup, 5 mL, Oral, QID, PRN, Not taking: states she is not taking any daily meds at this time. Bromfed DM (more content not included)... Normal [facility] Comment on above: Result Comment: Elec tronically Signed By: Donis Taylor DO\.br\Date and Time Signed: 11/18/23 02:37 EDT ED Patient Summaryon 024 ED Patient Summary ED Patient Summary [address] [address] Patient Discharge Instructions Person Information Name: GIOVANNA STREETER Age: 48 Years Arrival Date: 11/18/2023 00:56:23 Discharge Diagnosis: Flank pain Primary Care Physician: REBECCA NAVAS CNP Provider Information Primary Provider: Donis Taylor DO Advanced Cigarette Lighter Repairer:None The exam and treatment you received in the Emergency Department were for an urgent problem and are not intended as complete care. It is important that you follow up with a doctor, nurse practitioner, or physician?s medical assistant float for ongoing care. If your symptoms become worse or you do not improve as expected and you are unable to reach your usual health care provider, you should return to the Emergency Department. We are available 24 hours a day. GIOVANNA STREETER has been given the following list of patient education materials, prescriptions and follow-up instructions: Follow-up Instructions: With: Address: When: REBECCA NAVAS [address] [place] [address] In 3 days In the event that this physician does not participate in your insurance network, please consult with your insurance company to find a nearby participating provider. Patient Education Materials: Flank Pain, Adult A MESSAGE TO ALL PATIENTS REGARDING OPIOIDS PRESCRIPTION OPIOIDS: WHAT YOU NEED TO KNOW Prescription opioids can be used to help relieve [id number] pain and are often prescribed following a surgery or injury, or for certain health conditions. These medications can be an important part of the treatment but also come with serious risks. It is important to work with your healthcare provider to make sure you are getting the safest, most effective care. WHAT ARE THE RISKS AND SIDE EFFECTS OF OPIOID USE? Prescription opioids carry serious risks of addiction and overdose, especially with prolonged use. An opioid overdose, often marked by slowed breathing, can cause sudden . The use of prescription opioids can have a number of side effects as well, even when taken as directed: ? Tolerance?meaning you might need to take more of the medication for the same pain relief ? Physical dependence?meaning you have symptoms of withdrawal when a medication is stopped ? Increased sensitivity to pain ? Constipation ? Nausea, vomiting, and dry mouth ? Sleepiness and dizziness ? Confusion ? Depression ? Low levels of testosterone that can result in lower sex drive, energy, and strength ? Itching and sweating RISKS ARE GREATER WITH: ? History of drug misuse, substance use disorder, or overdose ? Mental health conditions (such as depression or anxiety) ? Sleep apnea ? Older age (65 years and older) ? Avoid alcohol while taking prescription opioids. Also, unless specifically advised by your health care provider, medications to avoid include: ? Benzodiazepines (such as Xanax or Valium) ? Muscle relaxants (such as Soma or Flexeril) ? Hypnotics (such as Ambien or Lunesta) ? Other prescription opioids KNOW YOUR OPTIONS Talk to your health care provider about ways to manage your pain that don?t involve prescription opioids. Some of these options may actually work better and have fewer risks and side effects. Options may include: ? Pain relievers such as acetaminophen, ibuprofen, and naproxen ? Some medication that are also used for depression or seizures ? Physical therapy and exercise ? Cognitive behavioral therapy, a psychological, goal-directed approach, in which patients learn how to modify physical, behavioral, and emotional triggers of pain and stress. IF YOU ARE PRESCRIBED OPIOIDS FOR PAIN: ? Never take opioids in greater amounts or more often than prescribed. ? Follow up with your primary health care provider. o Work together to create a plan on how to manage your pain. o Talk about ways to help manage your pain that don?t involve prescription opioids. o Talk about any and all concerns and side effects. ? Help prevent misuse and abuse o Never sell or share prescription opioids. o Never use another person?s prescription opioids. ? Store prescription opioids in a secure place and out of reach of others (this may include visitors, children, friends, and family). ? Safely dispose of unused prescription opioids: Find your community drug take-back program or your pharmacy mail-back program, or flush them down the toilet, following guidance from the Food and Drug Administration (www.fda.gov/Drugs/Res ourcesForYou). ? Visit www.cdc.gov/drugoverdo se to learn about the risks of opioids abuse and overdose. ? If you believe you may be struggling with addiction, tell your health care provider and ask for guidance or call [facility] National Helpline at 6-356-134-LUNX. v Source: [place] Department of Health and Human Services/Center for (more content not included)... Normal [facility] HEMATOLOGYOrdered By: SYSTEM SYSTEM on 11-18-2023 Basophils/100 WBC (Bld) 0.5 % Normal 0.0 - 2.0 % [facility] Basophils/Leukocytes Auto (Bld) [Pure # fraction] 0.0 E9/L Normal 0.0 - 0.2 E9/L [facility] Eosinophils (Bld) [#/Vol] 0.3 E9/L Normal 0.0 - 0.5 E9/L [facility] Eosinophils/100 WBC (Bld) 3.6 % Normal 0.0 - 8.0 % [facility] Erythrocyte distribution width (RBC) [Ratio] 14.7 % High 10.9 - 14.2 % [facility] Hematocrit (Bld) [Volume fraction] 37.1 % Normal 34.0 - 46.0 % [facility] Hemoglobin (Bld) [Mass/Vol] 13.0 g/dL Normal 12.0 - 16.0 gm/dL [facility] Lymphocytes (Bld) [#/Vol] 2.3 E9/L Normal 1.0 - 4.0 E9/L [facility] Lymphocytes/100 WBC (Bld) 28.5 % Normal 14.0 - 50.0 % [facility] MCH (RBC) [Entitic mass] 31.0 pg Normal 27. 0 - 34.0 pg [facility] MCHC (RBC) [Mass/Vol] 34.9 g/dL Normal 31.4 - 36.0 gm/dL [facility] MCV (RBC) [Entitic vol] 88.6 fL Normal 80.0 - 100.0 fL [facility] Monocytes (Bld) [#/Vol] 0.6 E9/L Normal 0.2 - 1.0 E9/L [facility] Monocytes/100 WBC (Bld) 7.2 % Normal 4.0 - 14.0 % [facility] Neutrophils (Bld) [#/Vol] 4.8 E9/L Normal 2.0 - 7.5 E9/L [facility] Neutrophils/100 WBC (Bld) 60.2 % Normal 36.0 - 75.0 % [facility] Platelet 390.0 E9/L Normal 150.0 - 500.0 E9/L [facility] Platelet mean volume (Bld) [Entitic vol] 7.6 fL Normal 6.4 - 10.8 fL [facility] RBC (Bld) [#/Vol] 4.2 E12/L Low 4.3 - 5.9 E12/L [facility] WBC corrected for nucl RBC Auto (Bld) [#/Vol] 8.0 E9/L Normal 4.0 - 11.0 E9/L [facility] Basophils/100 WBC (Bld) 0.4 % Normal 0.0 - 2.0 % [facility] Basophils/Leukocytes Auto (Bld) [Pure # fraction] 0.0 E9/L Normal 0.0 - 0.2 E9/L [facility] Eosinophils (Bld) [#/Vol] 0.3 E9/L Normal 0.0 - 0.5 E9/L [facility] Eosinophils/100 WBC (Bld) 3.0 % Normal 0.0 - 8.0 % [facility] Erythrocyte distribution width (RBC) [Ratio] 14.4 % High 10.9 - 14.2 % [facility] Hematocrit (Bld) [Volume fraction] 38.4 % Normal 34.0 - 46.0 % [facility] Hemoglobin (Bld) [Mass/Vol] 13.1 g/dL Normal 12.0 - 16.0 gm/dL [facility] Lymphocytes (Bld) [#/Vol] 3.0 E9/L Normal 1.0 - 4.0 E9/L [facility] Lymphocytes/100 WBC (Bld) 30.3 % Normal 14.0 - 50.0 % [facility] MCH (RBC) [Entitic mass] 30.1 pg Normal 27. 0 - 34.0 pg [facility] MCHC (RBC) [Mass/Vol] 34.1 g/dL Normal 31.4 - 36.0 gm/dL [facility] MCV (RBC) [Entitic vol] 88.4 fL Normal 80.0 - 100.0 fL [facility] Monocytes (Bld) [#/Vol] 0.6 E9/L Normal 0.2 - 1.0 E9/L [facility] Monocytes/100 WBC (Bld) 6.0 % Normal 4.0 - 14.0 % [facility] Neutrophils (Bld) [#/Vol] 6.0 E9/L Normal 2.0 - 7.5 E9/L [facility] Neutrophils/100 WBC (Bld) 60.3 % Normal 36.0 - 75.0 % [facility] Platelet mean volume (Bld) [Entitic vol] 7.8 fL Normal 6.4 - 10.8 fL [facility] Platelets (Bld) [#/Vol] 378.0 E9/L Normal 150. 0 - 500.0 E9/L [facility] RBC (Bld) [#/Vol] 4.3 E12/L Normal 4.3 - 5.9 E12/L [facility] WBC corrected for nucl RBC Auto (Bld) [#/Vol] 9.9 E9/L Normal 4.0 - 11.0 E9/L [facility] Hep Func Panelon 11-18-2023 Albumin [Mass/Vol] 4.2 g/dL Normal 3.3-5.0 [facility] Comment on above: Performed By: #### 2 [id number] #### [facility] [address] [place] [address] Albumin/Globulin (S) [Mass conc ratio] 1.4 Normal 1.1-2.2 [facility] Comment on above: Performed By: #### 2 [id number] #### [facility] [address] [place] [address] ALP [Catalytic activity/Vol] 77 Int._Unit/L Normal 21-98 [facility] Comment on above: Performed By: #### 2 [id number] #### [facility] [address] [place] [address] ALT No additional P-5'-P [Catalytic activity/Vol] 17 Int._Unit/L Normal 6-46 [facility] Comment on above: Performed By: #### 2 [id number] #### [facility] [address] [place] [address] AST [Catalytic activity/Vol] 15 Int._Unit/L Normal 5-43 [facility] Comment on above: Performed By: #### 2 [id number] #### [facility] [address] [place] [address] Bilirubin [Mass/Vol] 0.2 mg/dL Normal 0.0-1.1 [facility] Comment on above: Performed By: #### 2 [id number] #### [facility] [address] [place] [address] Bilirubin.direct [Mass/Vol] 0.1 mg/dL Normal 0.0-0.4 [facility] Comment on above: Performed By: #### 2 [id number] #### [facility] [address] [place] [address] Bilirubin.indirect [Mass or moles/Vol] 0.1 mg/dL Normal 0.1-0.9 [facility] Comment on above: Performed By: #### 2 [id number] #### [facility] [address] [place] [address] Globulin (S) [Mass/Vol] 2.9 g/dL Normal 1.4-4.0 [facility] Comment on above: Performed By: #### 2 [id number] #### [facility] [address] [place] [address] Protein [Mass/Vol] 7.1 g/dL Normal 6.0-7.8 [facility] Comment on above: Performed By: #### 2 [id number] #### [facility] [address] [place] [address] Lipase Levelon 11-18-2023 Lipase [Catalytic activity/Vol] 80 U/L High 13-58 [facility] Comment on above: Performed By: #### 2 [id number] #### [facility] [address] [place] [address] UA with Cult Rflxon 11-18-19 24 Bilirubin Ql (U) Negative Normal Negative [facility] Comment on above: Performed By: #### 4 [id number] #### [facility] [address] [place] [address] Clarity (U) Clear Normal Clear [facility] Comment on above: Performed By: #### 4 [id number] #### [facility] [address] [place] [address] Color (U) Colorless Abnormal Yellow [facility] Comment on above: Result Comment: Micr oscopic readings are only performed on those samples that meet specific criteria set forth by [facility]. Performed By: #### 4 [id number] #### [facility] [address] [place] [address] Epithelial cells.squamous Auto (Urine sed) [#/Area] 0-2 Invalid Interpretation Code [facility] Comment on above: Performed By: #### 4 [id number] #### [facility] [address] [place] [address] Glucose Ql (U) Negative Normal Negative [facility] Comment on above: Performed By: #### 4 [id number] #### [facility] [address] [place] [address] Hemoglobin Auto test strip (U) [Mass/Vol] 1+ mg/dL Abnormal Negative [facility] Comment on above: Performed By: #### 4 [id number] #### [facility] [address] [place] [address] Ketones Auto test strip Ql (U) Negative Normal Negative [facility] Comment on above: Performed By: #### 4 [id number] #### [facility] [address] [place] [address] Leukocyte esterase Auto test strip Ql (U) Negative Normal Negative [facility] Comment on above: Performed By: #### 4 [id number] #### [facility] [address] [place] [address] Mucus Auto Ql (U) Trace Normal Negative [facility] Comment on above: Performed By: #### 4 [id number] #### [facility] [address] [place] [address] Nitrite Auto test strip Ql (U) Negative Normal Negative [facility] Comment on above: Performed By: #### 4 [id number] #### [facility] [address] [place] [address] pH (U) 5.0 [pH] Invalid Interpretation Code 5.0-9.0 [facility] Comment on above: Performed By: #### 4 [id number] #### [facility] [address] [place] [address] Protein Ql (U) Negative Normal Negative [facility] Comment on above: Performed By: #### 4 [id number] #### [facility] [address] [place] [address] RBC Ql (U) 0-3 Normal 0-3 [facility] Comment on above: Performed By: #### 4 [id number] #### [facility] [address] [place] [address] Specific gravity (U) [Rel density] 1.011 Invalid Interpretation Code 1.005-1.030 [facility] Comment on above: Performed By: #### 4 [id number] #### [facility] [address] [place] [address] Urobilinogen (U) [Mass/Vol] Negative Normal Negative [facility] Comment on above: Performed By: #### 4 [id number] #### [facility] [address] [place] [address] WBC Auto (Urine sed) [#/Area] 0-5 Normal 0-5 [facility] Comment on above: Performed By: #### 4 [id number] #### [facility] [address] [place] [address] Type of Urine collection method Clean Catch Normal [facility] Comment on above: Performed By: #### 4 [id number] #### [facility] [address] [place] [id number] URINALYSISOrdered By: SYSTEM SYSTEM on 11-18-2023 Bilirubin Ql (U) Negative Normal Negativemg/ dL [facility] UA Auto SS Clarity (U) Clear (11/18/23 2:06 AM) Normal Clear [facility] UA Auto SS Color (U) Colorless 1 *ABN* (11/18/23 2:06 AM) Invalid Interpretation Code Yellow [facility] UA Auto SS Comment on above: Interpretive Data: M icroscopic readings are only performed on those samples that meet specific criteria set forth by [facility]. Epithelial cells.squamous Auto (Urine sed) [#/Area] 0-2 graded/HPF Invalid Interpretation Code [facility] UA Auto SS Glucose Ql (U) Negative Normal Negativemg/ dL [facility] UA Auto SS Hemoglobin Auto test strip (U) [Mass/Vol] 1+ mg/dL Invalid Interpretation Code Negativemg/ dL [facility] UA Auto SS Ketones Auto test strip Ql (U) Negative Normal Negativemg/ dL [facility] UA Auto SS Leukocyte esterase Auto test strip Ql (U) Negative Normal NegativeLeu /uL [facility] UA Auto SS Mucus Auto Ql (U) Trace graded/LPF Normal Negati vegra ded/LPF [facility] UA Auto SS Nitrite Auto test strip Ql (U) Negative Normal Negativemg/ dL [facility] UA Auto SS pH (U) 5.0 *NA* (11/18/23 2:06 AM) Invalid Interpretation Code 5.0 - 9.0 [facility] UA Auto SS Protein Ql (U) Negative Normal Negativemg/ dL [facility] UA Auto SS RBC Ql (U) 0-3 graded/HPF Normal 0-3graded/H PF [facility] UA Auto SS Specific gravity (U) [Rel density] 1.011 *NA* (11/18/23 2:06 AM) Invalid Interpretation Code 1.005 - 1.030 [facility] UA Auto SS Urobilinogen (U) [Mass/Vol] Negative Normal Negativemg/ dL [facility] UA Auto SS WBC Auto (Urine sed) [#/Area] 0-5 graded/HPF Normal 0-5graded/H PF [facility] UA Auto SS URINALYSISOrdered By: Donis londono on 11-18-2023 UA Spec Desc Clean Catch (11/18/23 2:06 AM) Normal [facility] UA Auto SS Work Phone: eGFRon 11-18-2023 eGFR 105 mL/min/1.73 m2 Normal >=59 [facility] Comment on above: Order Comment: Order added by Discern Expert. Performed By: #### 1 [id number] #### [facility] [address] [place] [address] eGFR 109 mL/min/1.73 m2 Normal >=59 [facility] Comment on above: Order Comment: Order added by Discern Expert. Performed By: #### 1 [id number] #### [facility] [address] [place] [address] Activated partial thrombopla stin time (aPTT) in platelet poor plasma by coagulation aOrdered By: Denver Hess on 11-17-2023 aPTT Coag (PPP) [Time] 37.0 s High 25.1-36.5 [facility] Basophils Auto (Bld) [#/Vol] Ordered By: Denver Hess on 11-17-2023 Basophils (Bld) [#/Vol] 0.1 10*3/uL 0.0-0.2 [facility] Basophils (Bld) [#/Vol] Automated basoph il count 0.0-0.2 [facility] Basophils/100 WBC Auto (Bld) Ordered By: Denver Hess on 11-17-2023 Basophils/100 WBC (Bld) 0.8 % . [facility] Basophils/100 WBC (Bld) Automated basophil % . [facility] Calcium [Mass/volume] in Ser um or PlasmaOrdered By: Denver Hess on 11-17-2023 Calcium [Mass/Vol] 9.2 mg/dL 8.6-10.3 [facility] Calcium [Mass/Vol] Calcium [Mass/volume ] in Serum or Plasma 8.6-10.3 [facility] Carbon dioxide, total [Moles /volume] in Serum or PlasmaOrdered By: Denver Hess on 11-17-2023 CO2 [Moles/Vol] 24.9 mmol/L 21.0-31.0 [facility] CO2 [Moles/Vol] Carbon dioxide, tota l [Moles/volume] in Serum or Plasma 21.0-31.0 [facility] Chloride [Moles/volume] in S jett or PlasmaOrdered By: Denver Hess on 11-17-2023 Chloride [Moles/Vol] 104 mmol/L 98-107 [facility] Chloride [Moles/Vol] Chloride [Moles/volume] in Serum or Plasma 98-107 [facility] Creatine kinase [Enzymatic a ctivity/volume] in Serum or PlasmaOrdered By: Denver Hess on 11-17-2023 CK [Catalytic activity/Vol] 145 U/L 30-223 [facility] CK [Catalytic activity/Vol] Creatine kinase [Enzymatic activity/volume] in Serum or Plasma 30-223 [facility] Creatinine [Mass/volume] in Serum or PlasmaOrdered By: Denver Hess on 11-17-2023 Creatinine [Mass/Vol] 0.73 mg/dL 0.60-1.20 [facility] Creatinine [Mass/Vol] Creatinine [Mass/volume] in Serum or Plasma 0.60-1.20 [facility] Eosinophils Auto (Bld) [#/Vo l]Ordered By: Denver Hess on 11-17-2023 Eosinophils (Bld) [#/Vol] 0.3 10*3/uL 0.0-0.45 [facility] Eosinophils (Bld) [#/Vol] Automated eosinophil count 0.0-0.45 [facility] Eosinophils/100 WBC Auto (Bl d)Ordered By: Denver Hess on 11-17-2023 Eosinophils/100 WBC (Bld) 3.3 % . [facility] Eosinophils/100 WBC (Bld) Automated eosinophil % . [facility] Erythrocyte distribution wid th Auto (RBC) [Ratio]Ordered By: Denver Hess on 11-17-2023 Erythrocyte distribution width (RBC) [Ratio] 14.3 % 11.9-15.3 [facility] Erythrocyte distribution width (RBC) [Ratio] Erythrocyte distribution width [Ratio] by Automated count 11.9-15.3 [facility] Glucose [Mass/volume] in Ser um or PlasmaOrdered By: Denver Hess on 11-17-2023 Glucose [Mass/Vol] 119 mg/dL High 70-100 [facility] Glucose [Mass/Vol] Glucose [Mass/volume ] in Serum or Plasma High 70-100 [facility] Hematocrit Auto (Bld) [Volum e fraction]Ordered By: Denver Hess on 11-17-2023 Hematocrit (Bld) [Volume fraction] 39.1 % 34.0-46.4 [facility] Hematocrit (Bld) [Volume fraction] Hematocrit [Volume Fraction] of Blood by Automated count 34.0-46.4 [facility] Hemoglobin [Mass/volume] in BloodOrdered By: Denver Hess on 11-17-2023 Hemoglobin (Bld) [Mass/Vol] 13.4 g/dL 11.8-15.4 [facility] Hemoglobin (Bld) [Mass/Vol] Hemoglobin [Mass/volume] in Blood 11.8-15.4 [facility] INR in Platelet poor plasma by Coagulation assayOrdered By: Denver Hess on 11-17-2023 INR Coag (PPP) [Relative time] 1.0 {INR} [facility] INR Coag (PPP) [Relative time] INR in Platelet poor plasma by Coagulation assay [facility] Leukocytes [#/volume] correc jacki for nucleated erythrocytes in Blood by Automated counOrdered By: Denver Hess on 11-17-2023 WBC corrected for nucl RBC Auto (Bld) [#/Vol] 9.8 10*3/uL 3.8-11.6 [facility] WBC corrected for nucl RBC Auto (Bld) [#/Vol] Leukocytes [#/volume] corrected for nucleated erythrocytes in Blood by Automated coun 3.8-11.6 [facility] Lymphocytes Auto (Bld) [#/Vo l]Ordered By: Denver Hess on 11-17-2023 Lymphocytes (Bld) [#/Vol] 3.4 10*3/uL 1.00-4.8 [facility] Lymphocytes (Bld) [#/Vol] Lymphocytes [#/volume] in Blood by Automated count 1.00-4.8 [facility] Lymphocytes/100 WBC Auto (Bl d)Ordered By: Denver Hess on 11-17-2023 Lymphocytes/100 WBC (Bld) 34.9 % . [facility] Lymphocytes/100 WBC (Bld) Lymphocytes/100 leukocytes in Blood by Automated count . [facility] MCH Auto (RBC) [Entitic mass ]Ordered By: Denver Hess on 11-17-2023 MCH (RBC) [Entitic mass] 30.3 pg 24.7-34.3 [facility] MCH (RBC) [Entitic mass] MCH [Entitic ma ss] by Automated count 24.7-34.3 [facility] MCHC Auto (RBC) [Mass/Vol]Or dered By: Denver Hess on 11-17-2023 MCHC (RBC) [Mass/Vol] 34.2 g/dL 32.0-35.0 [facility] MCHC (RBC) [Mass/Vol] MCHC [Mass/volume] by Automated count 32.0-35.0 [facility] MCV Auto (RBC) [Entitic vol] Ordered By: Denver Hess on 11-17-2023 MCV (RBC) [Entitic vol] 88.5 fL 80-100 [facility] MCV (RBC) [Entitic vol] MCV [Entitic vol ume] by Automated count 80-100 [facility] Monocyte distribution width [Entitic volume] in Blood by AutomatedOrdered By: Denver Hess on 11-17-2023 Monocyte distribution width Auto (Bld) [Entitic vol] 16.71 % 0.00-20.00 [facility] Monocyte distribution width Auto (Bld) [Entitic vol] Monocyte distribution width [Entitic volume] in Blood by Automated 0.00-20.00 [facility] Monocytes Auto (Bld) [#/Vol] Ordered By: Denver Hess on 11-17-2023 Monocytes (Bld) [#/Vol] 0.7 10*3/uL 0.0-0.8 [facility] Monocytes (Bld) [#/Vol] Automated blood monocyte count 0.0-0.8 [facility] Monocytes/100 WBC Auto (Bld) Ordered By: Denver Hess on 11-17-2023 Monocytes/100 WBC (Bld) 7.0 % . [facility] Monocytes/100 WBC (Bld) Automated monocyte % . [facility] Natriuretic peptide B [Mass/ Vol]Ordered By: Denver Hess on 11-17-2023 Natriuretic peptide B (Bld) [Mass/Vol] 19.0 pg/mL 5-100 [facility] Natriuretic peptide B (Bld) [Mass/Vol] BNP ser/plas 5-100 [facility] Neutrophils Auto (Bld) [#/Vo l]Ordered By: Denver Hess on 11-17-2023 Neutrophils (Bld) [#/Vol] 5.3 10*3/uL 1.8-7.7 [facility] Neutrophils (Bld) [#/Vol] Neutrophils [#/volume] in Blood by Automated count 1.8-7.7 [facility] Neutrophils/100 WBC Auto (Bl d)Ordered By: Denver Hess on 11-17-2023 Neutrophils/100 WBC (Bld) 54.0 % . [facility] Neutrophils/100 WBC (Bld) Automated neutrophil % . [facility] No Panel InformationOrdered By: Denver Hess on 11-17-2023 > 60.0 mL/Min [facility] 101.07 [facility] Nucleated erythrocytes [Pres ence] in Blood by Automated countOrdered By: Denver Hess on 11-17-2023 Nucleated RBC Auto Ql (Bld) 0.2 /100{WBC} 0-0.5 [facility] Nucleated RBC Auto Ql (Bld) Nucleated erythrocytes [Presence] in Blood by Automated count 0-0.5 [facility] Platelet mean volume Auto (B ld) [Entitic vol]Ordered By: Denver Hess on 11-17-2023 Platelet mean volume (Bld) [Entitic vol] 8.0 fL 6.3-10.7 [facility] Platelet mean volume (Bld) [Entitic vol] Platelet mean volume [Entitic volume] in Blood by Automated count 6.3-10.7 [facility] Platelets Auto (Bld) [#/Vol] Ordered By: Denver Hess on 11-17-2023 Platelets (Bld) [#/Vol] 396 10*3/uL 150-450 [facility] Platelets (Bld) [#/Vol] Platelets [#/vol ume] in Blood by Automated count 150-450 [facility] Potassium [Moles/volume] in Serum or PlasmaOrdered By: Denver Hess on 11-17-2023 Potassium [Moles/Vol] 3.7 mmol/L 3.5-5.1 [facility] Potassium [Moles/Vol] Potassium [Moles/volume] in Serum or Plasma 3.5-5.1 [facility] Prothrombin time (PT)Ordered By: Denver Hess on 11-17-2023 PT Coag (PPP) [Time] 11.1 s 9.0-12.9 [facility] PT Coag (PPP) [Time] Prothrombin time (PT) 9.0- 12.9 [facility] RBC Auto (Bld) [#/Vol]Ordere d By: Denver Hess on 11-17-2023 RBC (Bld) [#/Vol] 4.42 10*6/uL 3.60-5.00 [facility] RBC (Bld) [#/Vol] Erythrocytes [#/volume] in Blood by Automated count 3.60-5.00 [facility] Serum or plasma anion gap de terminationOrdered By: Denver Hess on 11-17-2023 Anion gap [Moles/Vol] 12.8 mmol/L 6.0-15.0 [facility] Anion gap [Moles/Vol] Serum or plasma an ion gap determination 6.0-15.0 [facility] Sodium [Moles/volume] in Ser um or PlasmaOrdered By: Denver Hess on 11-17-2023 Sodium [Moles/Vol] 138 mmol/L 136-145 [facility] Sodium [Moles/Vol] Sodium [Moles/volume ] in Serum or Plasma 136-145 [facility] Troponin I.cardiac [Mass/vol ume] in Serum or Plasma by Detection limit <= 0.01 ng/Ordered By: Denver Hess on 11-17-2023 Troponin I.cardiac DL <= 0.01 ng/mL [Mass/Vol] 4.3 pg/mL 0.0-15.0 [facility] Troponin I.cardiac DL <= 0.01 ng/mL [Mass/Vol] Troponin I.cardiac [Mass/volume] in Serum or Plasma by Detection limit <= 0.01 ng/ 0.0-15.0 [facility] Urea nitrogen [Mass/volume] in Serum or PlasmaOrdered By: Denver Hess on 11-17-2023 Urea nitrogen [Mass/Vol] 12 mg/dL 7- [facility] Urea nitrogen [Mass/Vol] Urea nitrogen [Mass/volume] in Serum or Plasma 10-23 [facility] WBC Auto (Bld) [#/Vol]Ordere d By: Denver Hess on 11-17-2023 WBC (Bld) [#/Vol] 9.8 10*3/uL 3.8-11.6 [facility] WBC (Bld) [#/Vol] Leukocytes [#/volume ] in Blood by Automated count 3.8-11.6 [facility] aPTT in Platelet poor plasma by Coagulation assayOrdered By: Denver Hess on 11-17-2023 aPTT Coag (PPP) [Time] Activated partial thromboplastin time (aPTT) in platelet poor plasma by coagulation a High 25.1-36.5 [facility] Activated partial thrombopla stin time (aPTT) in platelet poor plasma by coagulation aOrdered By: John Cortes on 11-11-2023 aPTT Coag (PPP) [Time] 37.4 s High 25.1-36.5 [facility] Alanine aminotransferase [En zymatic activity/volume] in Serum or PlasmaOrdered By: John Cortes on 11-11-2023 ALT [Catalytic activity/Vol] 17 U/L 7-52 [facility] Albumin [Mass/volume] in Ser um or Plasma by Bromocresol green (BCG) dye binding methoOrdered By: John Cortes on 11-11-2023 Albumin BCG dye [Mass/Vol] 4.3 g/dL 3.5-5.7 [facility] Alkaline phosphatase [Enzyma tic activity/volume] in Serum or PlasmaOrdered By: John Cortes on 11-11-2023 ALP [Catalytic activity/Vol] 77 U/L 34-104 [facility] Aspartate aminotransferase [ Enzymatic activity/volume] in Serum or PlasmaOrdered By: John Cortes on 11-11-2023 AST [Catalytic activity/Vol] 16 U/L 13-39 [facility] Basophils Auto (Bld) [#/Vol] Ordered By: John Cortes on 11-11-2023 Basophils (Bld) [#/Vol] 0.1 10*3/uL 0.0-0.2 [facility] Basophils/100 WBC Auto (Bld) Ordered By: John Cortes on 11-11-2023 Basophils/100 WBC (Bld) 0.7 % . [facility] Bilirubin.total [Mass/volume ] in Serum or PlasmaOrdered By: John Cortes on 11-11-2023 Bilirubin [Mass/Vol] 0.2 mg/dL Low 0.3-1.0 [facility] Calcium [Mass/volume] in Ser um or PlasmaOrdered By: John Cortes on 11-11-2023 Calcium [Mass/Vol] 9.1 mg/dL 8.6-10.3 [facility] Carbon dioxide, total [Moles /volume] in Serum or PlasmaOrdered By: John Cortes on 11-11-2023 CO2 [Moles/Vol] 23.5 mmol/L 21.0-31.0 [facility] Chloride [Moles/volume] in S jett or PlasmaOrdered By: John Cortes on 11-11-2023 Chloride [Moles/Vol] 106 mmol/L 98-107 [facility] Creatine kinase [Enzymatic a ctivity/volume] in Serum or PlasmaOrdered By: John Cortes on 11-11-2023 CK [Catalytic activity/Vol] 104 U/L 30-223 [facility] Creatinine [Mass/volume] in Serum or PlasmaOrdered By: John Cortes on 11-11-2023 Creatinine [Mass/Vol] 0.64 mg/dL 0.60-1.20 [facility] Eosinophils Auto (Bld) [#/Vo l]Ordered By: John Cortes on 11-11-2023 Eosinophils (Bld) [#/Vol] 0.4 10*3/uL 0.0-0.45 [facility] Eosinophils/100 WBC Auto (Bl d)Ordered By: John Cortes on 11-11-2023 Eosinophils/100 WBC (Bld) 4.4 % . [facility] Erythrocyte distribution wid th Auto (RBC) [Ratio]Ordered By: John Cortes on 11-11-2023 Erythrocyte distribution width (RBC) [Ratio] 14.5 % 11.9-15.3 [facility] Globulin Calc (S) [Mass/Vol] Ordered By: John Cortes on 11-11-2023 Globulin (S) [Mass/Vol] 3.0 g/dL [facility] Glucose [Mass/volume] in Ser um or PlasmaOrdered By: John Cortes on 11-11-2023 Glucose [Mass/Vol] 113 mg/dL High 70-100 [facility] Hematocrit Auto (Bld) [Volum e fraction]Ordered By: John Cortes on 11-11-2023 Hematocrit (Bld) [Volume fraction] 38.7 % 34.0-46.4 [facility] Hemoglobin [Mass/volume] in BloodOrdered By: John Cortes on 11-11-2023 Hemoglobin (Bld) [Mass/Vol] 13.2 g/dL 11.8-15.4 [facility] INR in Platelet poor plasma by Coagulation assayOrdered By: John Cortes on 11-11-2023 INR Coag (PPP) [Relative time] 1.0 {INR} [facility] Leukocytes [#/volume] correc jacki for nucleated erythrocytes in Blood by Automated counOrdered By: John Cortes on 11-11-2023 WBC corrected for nucl RBC Auto (Bld) [#/Vol] 9.0 10*3/uL 3.8-11.6 [facility] Lymphocytes Auto (Bld) [#/Vo l]Ordered By: John Cortes on 11-11-2023 Lymphocytes (Bld) [#/Vol] 3.4 10*3/uL 1.00-4.8 [facility] Lymphocytes/100 WBC Auto (Bl d)Ordered By: John Cortes on 11-11-2023 Lymphocytes/100 WBC (Bld) 37.8 % . [facility] MCH Auto (RBC) [Entitic mass ]Ordered By: John Cortes on 11-11-2023 MCH (RBC) [Entitic mass] 30.3 pg 24.7-34.3 [facility] MCHC Auto (RBC) [Mass/Vol]Or dered By: John Cortes on 11-11-2023 MCHC (RBC) [Mass/Vol] 34.0 g/dL 32.0-35.0 [facility] MCV Auto (RBC) [Entitic vol] Ordered By: John Cortes on 11-11-2023 MCV (RBC) [Entitic vol] 89.1 fL 80-100 [facility] Monocyte distribution width [Entitic volume] in Blood by AutomatedOrdered By: John Cortes on 11-11-2023 Monocyte distribution width Auto (Bld) [Entitic vol] 18.30 % 0.00-20.00 [facility] Monocytes Auto (Bld) [#/Vol] Ordered By: John Cortes on 11-11-2023 Monocytes (Bld) [#/Vol] 0.7 10*3/uL 0.0-0.8 [facility] Monocytes/100 WBC Auto (Bld) Ordered By: John Cortes on 11-11-2023 Monocytes/100 WBC (Bld) 8.1 % . [facility] Natriuretic peptide B [Mass/ Vol]Ordered By: John Cortes on 11-11-2023 Natriuretic peptide B (Bld) [Mass/Vol] 39.0 pg/mL 5-100 [facility] Neutrophils Auto (Bld) [#/Vo l]Ordered By: John Cortes on 11-11-2023 Neutrophils (Bld) [#/Vol] 4.4 10*3/uL 1.8-7.7 [facility] Neutrophils/100 WBC Auto (Bl d)Ordered By: John Cortes on 11-11-2023 Neutrophils/100 WBC (Bld) 49.0 % . [facility] No Panel InformationOrdered By: John Cortes on 11-11-2023 > 60.0 mL/Min [facility] 114.09 [facility] Nucleated erythrocytes [Pres ence] in Blood by Automated countOrdered By: John Cortes on 11-11-2023 Nucleated RBC Auto Ql (Bld) 0.1 /100{WBC} 0-0.5 [facility] Platelet mean volume Auto (B ld) [Entitic vol]Ordered By: John Cortes on 11-11-2023 Platelet mean volume (Bld) [Entitic vol] 7.7 fL 6.3-10.7 [facility] Platelets Auto (Bld) [#/Vol] Ordered By: John Cortes on 11-11-2023 Platelets (Bld) [#/Vol] 400 10*3/uL 150-450 [facility] Potassium [Moles/volume] in Serum or PlasmaOrdered By: John Cortes on 11-11-2023 Potassium [Moles/Vol] 3.5 mmol/L 3.5-5.1 [facility] Protein [Mass/volume] in Ser um or PlasmaOrdered By: John Cortes on 11-11-2023 Protein [Mass/Vol] 7.3 g/dL 6.4-8.9 [facility] Prothrombin time (PT)Ordered By: John Cortes on 11-11-2023 PT Coag (PPP) [Time] 11.1 s 9.0-12.9 [facility] RBC Auto (Bld) [#/Vol]Ordere d By: John Cortes on 11-11-2023 RBC (Bld) [#/Vol] 4.35 10*6/uL 3.60-5.00 [facility] Serum or plasma albumin/glob ulin mass ratioOrdered By: John Cortes on 11-11-2023 Albumin/Globulin [Mass ratio] 1.4 {ratio} [facility] Serum or plasma anion gap de terminationOrdered By: John Cortes on 11-11-2023 Anion gap [Moles/Vol] 13.0 mmol/L 6.0-15.0 [facility] Sodium [Moles/volume] in Ser um or PlasmaOrdered By: John Cortes on 11-11-2023 Sodium [Moles/Vol] 139 mmol/L 136-145 [facility] Troponin I.cardiac [Mass/vol ume] in Serum or Plasma by Detection limit <= 0.01 ng/Ordered By: John Cortes on 11-11-2023 Troponin I.cardiac DL <= 0.01 ng/mL [Mass/Vol] 4.3 pg/mL 0.0-15.0 [facility] Urea nitrogen [Mass/volume] in Serum or PlasmaOrdered By: John Cortes on 11-11-2023 Urea nitrogen [Mass/Vol] 8 mg/dL 7-25 [facility] WBC Auto (Bld) [#/Vol]Ordere d By: John Cortes on 11-11-2023 WBC (Bld) [#/Vol] 9.0 10*3/uL 3.8-11.6 [facility] Activated partial thrombopla stin time (aPTT) in platelet poor plasma by coagulation aOrdered By: Dustin Dorsey on 11-05-2023 aPTT Coag (PPP) [Time] 24.1 s Low 25.1-36.5 [facility] Basophils Auto (Bld) [#/Vol] Ordered By: Dustin Dorsey on 11-05-2023 Basophils (Bld) [#/Vol] 0.1 10*3/uL 0.0-0.2 [facility] Basophils/100 WBC Auto (Bld) Ordered By: Dustin Dorsey on 11-05-2023 Basophils/100 WBC (Bld) 1.2 % . [facility] Calcium [Mass/volume] in Ser um or PlasmaOrdered By: Dustin Dorsey on 11-05-2023 Calcium [Mass/Vol] 9.1 mg/dL 8.6-10.3 [facility] Carbon dioxide, total [Moles /volume] in Serum or PlasmaOrdered By: Dustin Dorsey on 11-05-2023 CO2 [Moles/Vol] 25.4 mmol/L 21.0-31.0 [facility] Chloride [Moles/volume] in S jett or PlasmaOrdered By: Dustin Dorsey on 11-05-2023 Chloride [Moles/Vol] 106 mmol/L 98-107 [facility] Creatine kinase [Enzymatic a ctivity/volume] in Serum or PlasmaOrdered By: Dustin Dorsey on 11-05-2023 CK [Catalytic activity/Vol] 128 U/L 30-223 [facility] Creatinine [Mass/volume] in Serum or PlasmaOrdered By: Dustin Dorsey on 11-05-2023 Creatinine [Mass/Vol] 0.69 mg/dL 0.60-1.20 [facility] Eosinophils Auto (Bld) [#/Vo l]Ordered By: Dustin Dorsey on 11-05-2023 Eosinophils (Bld) [#/Vol] 0.3 10*3/uL 0.0-0.45 [facility] Eosinophils/100 WBC Auto (Bl d)Ordered By: Dustin Dorsey on 11-05-2023 Eosinophils/100 WBC (Bld) 3.7 % . [facility] Erythrocyte distribution wid th Auto (RBC) [Ratio]Ordered By: Dustin Dorsey on 11-05-2023 Erythrocyte distribution width (RBC) [Ratio] 14.7 % 11.9-15.3 [facility] Glucose [Mass/volume] in Ser um or PlasmaOrdered By: Dustin Dorsey on 11-05-2023 Glucose [Mass/Vol] 112 mg/dL High 70-100 [facility] Hematocrit Auto (Bld) [Volum e fraction]Ordered By: Dustin Dorsey on 11-05-2023 Hematocrit (Bld) [Volume fraction] 37.0 % 34.0-46.4 [facility] Hemoglobin [Mass/volume] in BloodOrdered By: Dustin Dorsey on 11-05-2023 Hemoglobin (Bld) [Mass/Vol] 12.5 g/dL 11.8-15.4 [facility] INR in Platelet poor plasma by Coagulation assayOrdered By: Dustin Dorsey on 11-05-2023 INR Coag (PPP) [Relative time] 0.9 {INR} [facility] Leukocytes [#/volume] correc jacki for nucleated erythrocytes in Blood by Automated counOrdered By: Dustin Dorsey on 11-05-2023 WBC corrected for nucl RBC Auto (Bld) [#/Vol] 8.8 10*3/uL 3.8-11.6 [facility] Lymphocytes Auto (Bld) [#/Vo l]Ordered By: Dustin Dorsey on 11-05-2023 Lymphocytes (Bld) [#/Vol] 3.3 10*3/uL 1.00-4.8 [facility] Lymphocytes/100 WBC Auto (Bl d)Ordered By: Dustin Dorsey on 11-05-2023 Lymphocytes/100 WBC (Bld) 37.9 % . [facility] MCH Auto (RBC) [Entitic mass ]Ordered By: Dustin Dorsey on 11-05-2023 MCH (RBC) [Entitic mass] 30.0 pg 24.7-34.3 [facility] MCHC Auto (RBC) [Mass/Vol]Or dered By: Dustin Dorsey on 11-05-2023 MCHC (RBC) [Mass/Vol] 33.9 g/dL 32.0-35.0 [facility] MCV Auto (RBC) [Entitic vol] Ordered By: Dustin Dorsey on 11-05-2023 MCV (RBC) [Entitic vol] 88.3 fL 80-100 [facility] Monocyte distribution width [Entitic volume] in Blood by AutomatedOrdered By: Dustin Dorsey on 11-05-2023 Monocyte distribution width Auto (Bld) [Entitic vol] 19.22 % 0.00-20.00 [facility] Monocytes Auto (Bld) [#/Vol] Ordered By: Dustin Dorsey on 11-05-2023 Monocytes (Bld) [#/Vol] 0.5 10*3/uL 0.0-0.8 [facility] Monocytes/100 WBC Auto (Bld) Ordered By: Dustin Dorsey on 11-05-2023 Monocytes/100 WBC (Bld) 5.6 % . [facility] Natriuretic peptide B [Mass/ Vol]Ordered By: Dustin Dorsey on 11-05-2023 Natriuretic peptide B (Bld) [Mass/Vol] 23.0 pg/mL 5-100 [facility] Neutrophils Auto (Bld) [#/Vo l]Ordered By: Dustin Dorsey on 11-05-2023 Neutrophils (Bld) [#/Vol] 4.5 10*3/uL 1.8-7.7 [facility] Neutrophils/100 WBC Auto (Bl d)Ordered By: Dustin Dorsey on 11-05-2023 Neutrophils/100 WBC (Bld) 51.6 % . [facility] No Panel InformationOrdered By: Dustin Dorsey on 11-05-2023 > 60.0 mL/Min [facility] 101.50 [facility] Nucleated erythrocytes [Pres ence] in Blood by Automated countOrdered By: Dustin Dorsey on 11-05-2023 Nucleated RBC Auto Ql (Bld) 0.1 /100{WBC} 0-0.5 [facility] Platelet adequacy [Presence] in Blood by Light microscopyOrdered By: Dustin Dorsey on 11-05-2023 Platelets LM Ql (Bld) Normal Normal [facility] Platelet mean volume Auto (B ld) [Entitic vol]Ordered By: Dustin Dorsey on 11-05-2023 Platelet mean volume (Bld) [Entitic vol] 8.1 fL 6.3-10.7 [facility] Platelet morphology finding [Identifier] in BloodOrdered By: Dustin Dorsey on 11-05-2023 Platelet morphology finding Nom (Bld) Normal Normal [facility] Platelets Auto (Bld) [#/Vol] Ordered By: Dustin Dorsey on 11-05-2023 Platelets (Bld) [#/Vol] 360 10*3/uL 150-450 [facility] Potassium [Moles/volume] in Serum or PlasmaOrdered By: Dustin Dorsey on 11-05-2023 Potassium [Moles/Vol] 3.6 mmol/L 3.5-5.1 [facility] Prothrombin time (PT)Ordered By: Dustin Dorsey on 11-05-2023 PT Coag (PPP) [Time] 10.6 s 9.0-12.9 [facility] RBC Auto (Bld) [#/Vol]Ordere d By: Dustin Dorsey on 11-05-2023 RBC (Bld) [#/Vol] 4.19 10*6/uL 3.60-5.00 [facility] RBC morphologyOrdered By: Charlene Dorsey on 11-05-2023 RBC morphology finding Nom (Bld) Normal Normal [facility] Serum or plasma anion gap de terminationOrdered By: Dustin Dorsey on 11-05-2023 Anion gap [Moles/Vol] 11.2 mmol/L 6.0-15.0 [facility] Sodium [Moles/volume] in Ser um or PlasmaOrdered By: Dustin Dorsey on 11-05-2023 Sodium [Moles/Vol] 139 mmol/L 136-145 [facility] Troponin I.cardiac [Mass/vol ume] in Serum or Plasma by Detection limit <= 0.01 ng/Ordered By: Dustin Dorsey on 11-05-2023 Troponin I.cardiac DL <= 0.01 ng/mL [Mass/Vol] 4.4 pg/mL 0.0-15.0 [facility] Urea nitrogen [Mass/volume] in Serum or PlasmaOrdered By: Dustin Dorsey on 11-05-2023 Urea nitrogen [Mass/Vol] 13 mg/dL 7-25 [facility] WBC Auto (Bld) [#/Vol]Ordere d By: Dustin Dorsey on 11-05-2023 WBC (Bld) [#/Vol] 9.5 10*3/uL 3.8-11.6 [facility] XR Chest Single Viewon 10-06 XR Chest Single View Exam Date/Time: 10/06/2023 20:44 EDT Reason for Exam: Chest pain Report IMPRESSION: NO EVIDENCE OF ACTIVE CHEST DISEASE. CLINICAL HISTORY: Chest pain. COMPARISON: 01/06/2023. COMMENT: AP portable. The heart is normal in size. The mediastinum is unremarkable. There are minimal linear densities at the lung bases, that may be due to atelectasis or fibrosis. No infiltration nor pleural effusion is evident. Ordering Provider: Donis Taylor FINAL REPORT Dictated: 10/07/2023 7:47 am Favio Sharpe M.D. Signed (Electronic Signature): 10/07/2023 7:47 am Signed by: Favio Sharpe M.D. Transcribed by: JOE Technologist: ENRIKE Technical Comments Radiation Dose: Ka,r in mGy = na DAP = na Normal [facility] BMPon 10-06-2023 Anion gap [Moles/Vol] 12 mmol/L Normal 6-16 [facility] Comment on above: Performed By: #### 2 [id number] #### [facility] [address] [place] [address] Calcium [Mass/Vol] 9.6 mg/dL Normal 8.9-11.1 [facility] Comment on above: Performed By: #### 2 [id number] #### [facility] [address] [place] [address] Chloride [Moles/Vol] 105 mmol/L Normal 101-111 [facility] Comment on above: Performed By: #### 2 [id number] #### [facility] [address] [place] [address] CO2 [Moles/Vol] 26 mmol/L Normal 21-31 [facility] Comment on above: Performed By: #### 2 [id number] #### [facility] [address] [place] [address] Creatinine [Mass/Vol] 0.7 mg/dL Normal 0.5-1.3 [facility] Comment on above: Performed By: #### 2 [id number] #### [facility] [address] [place] [address] Glucose [Mass/Vol] 111 mg/dL Normal 55-199 [facility] Comment on above: Performed By: #### 2 [id number] #### [facility] [address] [place] [address] Potassium [Moles/Vol] 4.0 mmol/L Normal 3.5-5.3 [facility] Comment on above: Performed By: #### 2 [id number] #### [facility] [address] [place] [address] Sodium [Moles/Vol] 139 mmol/L Normal 135-145 [facility] Comment on above: Performed By: #### 2 [id number] #### [facility] [address] [place] [address] Urea nitrogen [Mass/Vol] 10 mg/dL Normal 5-21 [facility] Comment on above: Performed By: #### 2 [id number] #### [facility] [address] [place] [address] Urea nitrogen/Creatinine [Mass ratio] 14 No Units Normal 10-20 [facility] Comment on above: Performed By: #### 2 [id number] #### [facility] [address] [place] [address] CBC w/ Auto Diffon 4 Basophils/100 WBC (Bld) 0.9 % Normal 0.0-2.0 [facility] Comment on above: Performed By: #### 2 [id number] #### [facility] [address] [place] [address] Basophils/Leukocytes Auto (Bld) [Pure # fraction] 0.1 E9/L Normal 0.0-0.2 [facility] Comment on above: Performed By: #### 2 [id number] #### [facility] [address] [place] [address] Eosinophils (Bld) [#/Vol] 0.2 E9/L Normal 0.0-0.5 [facility] Comment on above: Performed By: #### 2 [id number] #### [facility] [address] [place] [address] Eosinophils/100 WBC (Bld) 3.1 % Normal 0.0-8.0 [facility] Comment on above: Performed By: #### 2 [id number] #### [facility] [address] [place] [address] Erythrocyte distribution width (RBC) [Ratio] 15.1 % High 10.9-14.2 [facility] Comment on above: Performed By: #### 2 [id number] #### [facility] [address] [place] [address] Hematocrit (Bld) [Volume fraction] 43.2 % Normal 34.0-46.0 [facility] Comment on above: Performed By: #### 2 [id number] #### [facility] [address] [place] [address] Hemoglobin (Bld) [Mass/Vol] 14.8 g/dL Normal 12.0-16.0 [facility] Comment on above: Performed By: #### 2 [id number] #### [facility] [address] [place] [address] Lymphocytes (Bld) [#/Vol] 2.3 E9/L Normal 1.0-4.0 [facility] Comment on above: Performed By: #### 2 [id number] #### [facility] [address] [place] [address] Lymphocytes/100 WBC (Bld) 31.3 % Normal 14.0-50.0 [facility] Comment on above: Performed By: #### 2 [id number] #### [facility] [address] [place] [address] MCH (RBC) [Entitic mass] 30.2 pg Normal 27.0-34.0 [facility] Comment on above: Performed By: #### 2 [id number] #### [facility] [address] [place] [address] MCHC (RBC) [Mass/Vol] 34.2 g/dL Normal 31.4-36.0 [facility] Comment on above: Performed By: #### 2 [id number] #### [facility] [address] [place] [address] MCV (RBC) [Entitic vol] 88.2 fL Normal 80.0-100.0 [facility] Comment on above: Performed By: #### 2 [id number] #### [facility] [address] [place] [address] Monocytes (Bld) [#/Vol] 0.4 E9/L Normal 0.2-1.0 [facility] Comment on above: Performed By: #### 2 [id number] #### [facility] [address] [place] [address] Neutrophils (Bld) [#/Vol] 4.3 E9/L Normal 2.0-7.5 [facility] Comment on above: Performed By: #### 2 [id number] #### [facility] [address] [place] [address] Neutrophils/100 WBC (Bld) 58.6 % Normal 36.0-75.0 [facility] Comment on above: Performed By: #### 2 [id number] #### [facility] [address] [place] [address] Platelet mean volume (Bld) [Entitic vol] 7.5 fL Normal 6.4-10.8 [facility] Comment on above: Performed By: #### 2 [id number] #### [facility] [address] [place] [address] Platelets (Bld) [#/Vol] 413.0 E9/L Normal 150.0-500.0 [facility] Comment on above: Performed By: #### 2 [id number] #### [facility] [address] [place] [address] RBC (Bld) [#/Vol] 4.9 E12/L Normal 4.3-5.9 [facility] Comment on above: Performed By: #### 2 [id number] #### [facility] [address] [place] [address] WBC corrected for nucl RBC Auto (Bld) [#/Vol] 7.4 E9/L Normal 4.0-11.0 [facility] Comment on above: Performed By: #### 2 [id number] #### [facility] [address] [place] [address] CHEMISTRYOrdered By: SYSTEM SYSTEM on 10-06-2023 Troponin HS 4.40 pg/mL Low 10.10 - 27.10 pg/mL [facility] Comment on above: Interpretive Data: T he 95% CI (Confidence Interval) PPV (Positive Predictive Value) for myocardial infarction in females is 38 pg/mL, in males 51 pg/mL. The results should be used in conjunction with clinical conditions of myocardial infarction. ([facility] High Sensitivity Troponin I Instructions For Use, [place], October 2017) Anion gap [Moles/Vol] 12 mmol/L Normal 6 - 16 mEq/L [facility] Calcium [Mass/Vol] 9.6 mg/dL Normal 8.9 - 11. 1 mg/dL [facility] Chloride [Moles/Vol] 105 mmol/L Normal 101 - 1 11 mmol/L [facility] CO2 [Moles/Vol] 26 mmol/L Normal 21 - 31 mmol/L [facility] Creatinine [Mass/Vol] 0.7 mg/dL Normal 0.5 - 1.3 mg/dL [facility] eGFR 105 mL/min/1.73 m2 Normal >=59mL/mi n/ 1.73 m2 [facility] Glucose [Mass/Vol] 111 mg/dL Normal 55 - 199 mg/dL [facility] Potassium [Moles/Vol] 4.0 mmol/L Normal 3.5 - 5.3 mmol/L [facility] Sodium [Moles/Vol] 139 mmol/L Normal 135 - 145 mmol/L [facility] Troponin HS 5.00 pg/mL Low 10.10 - 27.10 pg/mL [facility] Comment on above: Interpretive Data: T he 95% CI (Confidence Interval) PPV (Positive Predictive Value) for myocardial infarction in females is 38 pg/mL, in males 51 pg/mL. The results should be used in conjunction with clinical conditions of myocardial infarction. ([facility] High Sensitivity Troponin I Instructions For Use, Sapna [place], October 2017) Urea nitrogen [Mass/Vol] 10 mg/dL Normal 5 - 21 mg/dL [facility] Urea nitrogen/Creatinine [Mass ratio] 14 mg/mg Normal 10 - 20 [facility] COAGULATIONOrdered By: Celeste Gregory on 10-06-2023 aPTT Coag (PPP) [Time] 38.5 s High 25.1 - 36.5 second(s) [facility] Comment on above: Interpretive Data: P arameter 15 days - 4 weeks 1 - 5 months 6 - 11 months 1 - 5 years 6 - 10 years 11 - 17 years PTT Mean: 35.4 (27.6-45.6) Mean: 33.5 (24.8-40.7) Mean: 32.4 (25.1-40.7) Mean: 31.6 (24.0-39.2) Mean: 31.6 (26.9-38.7) Mean: 31.0 (24.6-38.4) Pediatric Reference ranges were obtained from a study by Scott Cates et al. prepared from 1437 samples obtained at 7 different centers using the same coagulation reagent and instrumentation as [facility]. Currently there are no coagulation studies available worldwide for children to 14 days, and no normal ranges. Heparin therapeutic range (represented by Anti-Factor Xa activity of 0.2 - 0.4 U/mL) corresponds to PTT of 56.6 - 109.0 sec. Fibrin D-dimer FEU (PPP) [Mass/Vol] 295 ng/mL FEU Normal 215 - 500 ng/mL FEU [facility] Comment on above: Interpretive Data: T his assay is intended for use as an aid in the diagnosis of DVT or PE. These conditions cannot be excluded with certainty solely on the basis of a D-dimer concentration being within the reference range This D-Dimer assay may be used in conjunction with a non-high clinical pretest probability assessment to exclude deep-vein thrombosis(DVT). For exclusion of venous thrombosis or pulmonary embolism the analyte D-Dimer should not be used as an aid in patients with: Therapeutic dose anticoagulant therapy for >24 hours Fibrinolytic therapy within previous 7 days Trauma or surgery within previous 4 weeks Disseminated malignacies Aortic aneurysm Sepsis, severe infections, pneumonia, severe skin infections Liver cirrhosis INR Coag (PPP) [Relative time] 1.00 {INR} Invalid Interpretation Code [facility] Comment on above: Interpretive Data: I NR results are specifically intended to assess patients stabilized on long-term Anticoagulation therapy suggested INR s Less Intensive Anticoagulation 2.0 3.0 Conventional Range 3.0 4.5 PT Coag (PPP) [Time] 11.2 s Normal 9.4 - 1 2.5 second(s) [facility] Comment on above: Interpretive Data: 1 5 days - 4 weeks 1 - 5 months 6 -11 months 1 5 years 6 10 years 11 -17 years Mean: 11.2 (9.5 12.6) Mean: 11.0 (9.7 12.8) Mean: 11.0 (9.8 13.0) Mean: 11.3 (9.9 13.4) Mean: 11.7 (10.0 14.6) Mean: 11.8 (10.0 - 14.1) Pediatric Reference ranges were obtained from a study by Scott Cates et al. prepared from 1437 samples obtained at 7 different centers using the same coagulation reagent and instrumentation as [facility]. Currently there are no coagulation studies available worldwide for children to 14 days, and no normal ranges. D-Dimeron 10-06-2023 Fibrin D-dimer FEU (PPP) [Mass/Vol] 295 [id number] Normal 215-500 [facility] Comment on above: Result Comment: This assay is intended for use as an aid in the diagnosis of DVT or PE. These conditions cannot be excluded with certainty solely on the basis of a D-dimer concentration being within the reference range This D-Dimer assay may be used in conjunction with a non-high clinical pretest probability assessment to exclude deep-vein thrombosis(DVT). For exclusion of venous thrombosis or pulmonary embolism the analyte D-Dimer should not be used as an aid in patients with: Therapeutic dose anticoagulant therapy for >24 hours Fibrinolytic therapy within previous 7 days Trauma or surgery within previous 4 weeks Disseminated malignacies Aortic aneurysm Sepsis, severe infections, pneumonia, severe skin infections Liver cirrhosis Performed By: #### 2 [id number] #### [facility] [address] [place] [address] ED Clinical Summaryon 2023 ED Clinical Summary ED Clinical Summary [address] [address] ED Clinical Summary Person Information Name: GIOVANNA STREETER [place] Age: 48 Years : 1975 Sex: Female Language: Comoran PCP: REBECCA NAVAS CNP Marital Status: Visit Id: Visit Reason: Neck pain; Abdominal pain; Chest pain; CHEST PAIN,SWEATING,NUMBNESS AND TINGLING,HEADACHE Speciality: Acuity: 2 Enc Type: Emergency Med Service: Emergency Arrival: 10/06/2023 20:10:03 Discharge: 10/06/2023 22:16:22 LOS: 000 02:06 Checkin: 10/06/2023 20:10:03 Checkout: 10/06/2023 22:16:22 Dispo Type: Home (Routine DC) EVENTS: Event Name Event Status Request Date/Time Start Date/Time Complete Date/Time Arrive Complete 10/06/2023 20:10:03 10/06/2023 20:10:03 10/06/2023 20:10:03 Document Home Meds Request 10/06/2023 20:10:03 Triage Complete 10/06/2023 20:10:03 10/06/2023 20:20:41 10/06/2023 20:20:41 EKG Complete 10/06/2023 20:14:28 10/06/2023 20:21:13 Bed Assign Complete 10/06/2023 20:14:49 10/06/2023 20:14:49 10/06/2023 20:14:49 Dr Exam Complete 10/06/2023 20:14:49 10/06/2023 20:15:10 10/06/2023 20:15:10 RN Exam Complete 10/06/2023 20:14:49 10/06/2023 20:51:19 10/06/2023 20:51:19 Registration Complete 10/06/2023 20:15:10 10/06/2023 20:18:21 10/06/2023 20:18:21 Pending Labs Complete 10/06/2023 20:15:31 10/06/2023 21:59:41 Lab Complete 10/06/2023 20:15:31 10/06/2023 20:48:46 Patient Care Request 10/06/2023 20:15:31 RT Request 10/06/2023 20:15:31 X-Ray Complete 10/06/2023 20:15:31 10/06/2023 20:17:19 10/06/2023 20:44:08 Reg Complete Request 10/06/2023 20:18:21 Reg Bed Request Complete 10/06/2023 20:18:22 10/06/2023 20:18:22 10/06/2023 20:18:22 Meds Admin Complete 10/06/2023 20:23:27 10/06/2023 20:48:32 Pending Labs Complete 10/06/2023 20:24:45 10/06/2023 20:24:45 10/06/2023 20:26:36 Pending Labs Cancel 10/06/2023 20:26:30 10/06/2023 20:33:03 Lab Cancel 10/06/2023 20:26:30 10/06/2023 20:33:03 Pending Labs Complete 10/06/2023 20:30:14 10/06/2023 20:30:14 10/06/2023 20:48:46 Lab Complete 10/06/2023 20:30:14 10/06/2023 20:30:14 10/06/2023 20:48:46 Pending Labs Complete 10/06/2023 20:33:29 10/06/2023 20:33:29 10/06/2023 20:46:23 Lab Complete 10/06/2023 20:33:29 10/06/2023 20:33:29 10/06/2023 20:46:23 Wet Read Request 10/06/2023 20:44:08 Meds Admin Complete 10/06/2023 20:50:43 10/06/2023 20:57:46 Meds Admin Complete 10/06/2023 20:51:15 10/06/2023 20:57:46 Pending Labs Complete 10/06/2023 20:54:37 10/06/2023 20:54:37 10/06/2023 20:54:38 Discharge Complete 10/06/2023 22:01:23 10/06/2023 22:16:25 10/06/2023 22:16:25 Transfer Complete 10/06/2023 22:16:25 10/06/2023 22:16:25 10/06/2023 22:16:25 ADDRESS: [address] [facility] [id number] PHYS DOC NOTES: MEDICAL INFORMATION: Prescriptions Given: Medications to Continue with No Changes Other Medications acetaminophen-hydrocod one ([place] 325 mg-5 mg oral tablet) 1 Tablets By Mouth every 4 hours as needed for pain. Refills: 0. APAP/butalbital/caffei ne (APAP/butalbital/caffe ine 325 mg-50 mg-40 mg Tab) 2 Tablets By Mouth every 6 hours as needed for headache. Refills: 0. atorvastatin (atorvastatin 20 mg Tab) 1 Tablets By Mouth every day. azithromycin (azithromycin 250 mg Tab) 250 Milligram By Mouth As Directed. Refills: 0. azithromycin (Zithromax) 250 Milligram By Mouth. brompheniramine/dextro methorphan/PSE (Bromfed DM oral syrup) 5 Milliliter By Mouth 4 times a day as needed for cough and congestion. Refills: 0. brompheniramine/dextro methorphan/PSE (Bromfed DM oral syrup) 5 Milliliter By Mouth 4 times a day as needed for cough and congestion. Refills: 0. cyclobenzaprine (cyclobenzaprine 10 mg Tab) 1 Tablets By Mouth 3 times a day as needed Muscle pain. Refills: 0. lisinopril 20 Milligram By Mouth every day. naproxen (Naprosyn 500 mg Tab) 1 Tablets By Mouth 2 times a day as needed for pain. Refills: 0. naproxen (Naprosyn 500 mg Tab) 1 Tablets By Mouth 2 times a day as needed for pain. Refills: 0. naproxen (Naprosyn 500 mg Tab) 1 Tablets By Mouth 2 times a day as needed for pain. Refills: 0. naproxen (naproxen 500 mg oral enteric coated tablet) 1 Tablets By Mouth 2 times a day as needed Pain. Refills: 0. omeprazole (omeprazole 20 mg Cap-DR) 1 Capsules By Mouth every day. ondansetron (Zofran ODT 4 mg Tab-Dis) 1 Tablets By Mouth every 8 hours as needed Nausea/Vomiting. Refills: 0. ondansetron (Zofran ODT 4 mg Tab-Dis) 1 Tablets By Mouth every 8 hours. Refills: 0. predniSONE (predniSONE 20 mg Tab) 1 Tablets By Mouth As Directed. take two tabs daily for 5 days, then one tab daily for 5 days.. Refills: 0. PATIENT EDUCATION INFORMATION: Instructions: Nonspecific Chest Pain, Adult Follow up: With: Address: When: REBECCA NAVAS [address] [place] [address] In 3 days DIAGNOSIS: Chest pain Normal [facility] ED Note-Physicianon 10-06-19 ED Note-Physician ED Note-Physician Basic Information Time Seen: Donis Taylor DO 10/06/2023 20:15 Chief Complaint Chest pain that radiates up into neck and down bilateral arms. States burning up bad . Nausea, denies vomiting. Abdominal pain as well. History of Present Illness HPI: Patient is a 48-year-old female with past medical history of hypertension who presents the ED for chest pain. Patient states that she has been having chest pain for the last hour that is substernal and radiates to the left side of her neck. She has associated nausea but no vomiting. She denies any shortness of breath. She denies any episodes of this in the past. She also feels like she is burning up as well. ROS: Pertinent review of systems conducted and is negative except as noted above. Physical exam: General: nontoxic appearing and in no distress HEENT: Mucous membranes moist Neuro: awake and alert Neck: supple, trachea midline Card: Tachycardic, regular, no murmur or gallop Resp: Lungs clear to auscultation no wheeze or rhonchi Abd: Soft and nondistended. No tenderness to palpation with no rebound or guarding. Ext: No gross deformity or edema Physical Exam Vitals & Measurements T: 36.6 ?C(Oral) HR: 107(Peripheral) RR: 20 BP: 157/97 SpO2: 97% HT: 160 cm WT: 99.3 kg BMI: 38.79 Medical Decision Making MEDICAL DECISION MAKING Number and Complexity of Problems Differential Diagnosis: [] [facility] Data External documents reviewed: N/A My EKG interpretation: Noted in chart if applicable My CT interpretation: N/A My X-ray interpretation: Noted in chart if applicable My Ultrasound interpretation: N/A Decision rules/scores evaluated: Heart Score for Major Cardiac Event History: Example factors for history - pattern of chest pain, onset, duration, relation with exercise, stress or cold, localization, concominant symptoms. reaction to sublingual nitrates, [] Highly suspicious +2 [X] Moderately suspicious +1 [] Slightly suspicious 0 EKG: [] Significant ST-Depression +2 [] Non specific repolarization disturbance +1 [X] Normal 0 Age: [] >= 65 +2 [X] 45-65 + 1 [] <45 0 Risk Factors: (HLD, HTN, DM, Cigarette Smoking, Pos Family Hx, Obesity) [] >3 risk factors or hx of atheroslerotic disease + 2 [X] 1-2 risk factors + 1 [] No risk factors known 0 Troponin: [] >= 3X normal + 2 [] 1-3X normal + 1 [X] <= Normal 0 [X] 0-3 Points 0.9 - 1.7% risk of major adverse cardiac event in 6 weeks [] 4-6 Points 12-16.6% risk of major adverse cardiac event in 6 weeks [] 7-10 Points 50-65% risk of major adverse cardiac event in 6 weeks [X] 0-3 Points with 2 sets of negative cardiac markers <1% risk of major adverse cardiac event in 30 days. Discussed with: N/A Treatment and Disposition ED Course: Is nontoxic-appearing no distress. Will obtain a cardiac workup here in the ED as well as a D-dimer as she is mildly tachycardic on arrival. Patient was given IV fluids. Blood work including initial troponin and D-dimer are within normal limits. Patient was given a dose of Toradol and IV magnesium for comfort. Repeat 1 hour troponin is stable and within normal limits. I do not suspect cardiac pathology given her normal workup. She is low risk by heart score with a heart score of less than 4 and 2 negative troponins. On reevaluation she is feeling much better. Discussed plan of discharge with close follow-up with the primary care physician. Discussed return precautions. Patient is understanding agreement this plan is discharged stable condition. Shared decision making: As above Code status: N/A Assessment/Plan Chest pain (R07.9: Chest pain, unspecified) Orders: ketorolac, 15 mg = 1 mL, Injection, IV Push, Once, Stop date 10/06/23 20:50:00 EDT, STAT, Start date 10/06/23 20:50:00 EDT, 10/06/23 20:50:00 EDT magnesium sulfate + Dextrose 5% in Water intravenous solution 100 mL, 1 gram = 100 mL, Soln-IV, IV Piggyback, Once, Stop date 10/06/23 20:50:00 EDT, STAT, Start date 10/06/23 20:50:00 EDT, 300 mL/hr, Infuse over 20 minute(s), 10/06/23 20:50:00 EDT ondansetron, 4 mg = 2 mL, Injection, IV Push, Once, Stop date 10/06/23 20:51:00 EDT, STAT, Start date 10/06/23 20:51:00 EDT, 10/06/23 20:51:00 EDT Sodium Chloride 0.9% intravenous solution, 1,000 mL, Soln-IV, IV, Once, Stop date 10/06/23 20:23:00 EDT, STAT, Start date 10/06/23 20:23:00 EDT, Infuse over 61, minute(s) Add on Test Basic Metabolic Panel CBC w/ Auto Diff D-Dimer ECG 12 Lead Adult ED Cardiac Monitoring eGFR Extra SST Tube Oxygen Saturation Oxygen Therapy PT & PTT Saline Lock Insert Troponin 0 Hr. Troponin 1 Hr. XR Chest Single View Medications Administered Given ketorolac 15 mg/mL Inj, 15 mg, IV Push magnesium additive 1 gm + Dextrose 5% in Water intravenous solution 1 (more content not included)... Normal [facility] Comment on above: Result Comment: Elec tronically Signed By: Donis Taylor DO\.br\Date and Time Signed: 10/06/23 22:02 EDT ED Patient Summaryon 024 ED Patient Summary ED Patient Summary [place] [id number] Patient Discharge Instructions Person Information Name: GIOVANNA STREETER Age: 48 Years Arrival Date: 10/06/2023 20:10:03 Discharge Diagnosis: Chest pain Primary Care Physician: REBECCA NAVAS CNP Provider Information Primary Provider: Donis Taylor DO Advanced Cigarette Lighter Repairer:None The exam and treatment you received in the Emergency Department were for an urgent problem and are not intended as complete care. It is important that you follow up with a doctor, nurse practitioner, or physician?s medical assistant float for ongoing care. If your symptoms become worse or you do not improve as expected and you are unable to reach your usual health care provider, you should return to the Emergency Department. We are available 24 hours a day. GIOVANNA STREETER has been given the following list of patient education materials, prescriptions and follow-up instructions: Follow-up Instructions: With: Address: When: ERBECCA NAVAS [address] [place] [address] In 3 days In the event that this physician does not participate in your insurance network, please consult with your insurance company to find a nearby participating provider. Patient Education Materials: Nonspecific Chest Pain, Adult A MESSAGE TO ALL PATIENTS REGARDING OPIOIDS PRESCRIPTION OPIOIDS: WHAT YOU NEED TO KNOW Prescription opioids can be used to help relieve [id number] pain and are often prescribed following a surgery or injury, or for certain health conditions. These medications can be an important part of the treatment but also come with serious risks. It is important to work with your healthcare provider to make sure you are getting the safest, most effective care. WHAT ARE THE RISKS AND SIDE EFFECTS OF OPIOID USE? Prescription opioids carry serious risks of addiction and overdose, especially with prolonged use. An opioid overdose, often marked by slowed breathing, can cause sudden . The use of prescription opioids can have a number of side effects as well, even when taken as directed: ? Tolerance?meaning you might need to take more of the medication for the same pain relief ? Physical dependence?meaning you have symptoms of withdrawal when a medication is stopped ? Increased sensitivity to pain ? Constipation ? Nausea, vomiting, and dry mouth ? Sleepiness and dizziness ? Confusion ? Depression ? Low levels of testosterone that can result in lower sex drive, energy, and strength ? Itching and sweating RISKS ARE GREATER WITH: ? History of drug misuse, substance use disorder, or overdose ? Mental health conditions (such as depression or anxiety) ? Sleep apnea ? Older age (65 years and older) ? Avoid alcohol while taking prescription opioids. Also, unless specifically advised by your health care provider, medications to avoid include: ? Benzodiazepines (such as Xanax or Valium) ? Muscle relaxants (such as Soma or Flexeril) ? Hypnotics (such as Ambien or Lunesta) ? Other prescription opioids KNOW YOUR OPTIONS Talk to your health care provider about ways to manage your pain that don?t involve prescription opioids. Some of these options may actually work better and have fewer risks and side effects. Options may include: ? Pain relievers such as acetaminophen, ibuprofen, and naproxen ? Some medication that are also used for depression or seizures ? Physical therapy and exercise ? Cognitive behavioral therapy, a psychological, goal-directed approach, in which patients learn how to modify physical, behavioral, and emotional triggers of pain and stress. IF YOU ARE PRESCRIBED OPIOIDS FOR PAIN: ? Never take opioids in greater amounts or more often than prescribed. ? Follow up with your primary health care provider. o Work together to create a plan on how to manage your pain. o Talk about ways to help manage your pain that don?t involve prescription opioids. o Talk about any and all concerns and side effects. ? Help prevent misuse and abuse o Never sell or share prescription opioids. o Never use another person?s prescription opioids. ? Store prescription opioids in a secure place and out of reach of others (this may include visitors, children, friends, and family). ? Safely dispose of unused prescription opioids: Find your community drug take-back program or your pharmacy mail-back program, or flush them down the toilet, following guidance from the Food and Drug Administration (www.fda.gov/Drugs/Res ourcesForYou). ? Visit www.cdc.gov/drugoverdo se to learn about the risks of opioids abuse and overdose. ? If you believe you may be struggling with addiction, tell your health care provider and ask for guidance or call [facility]?S National Helpline at 9-682-141-CDLM. e Source: [place] Department of Health and Human Services/ (more content not included)... Normal [facility] HEMATOLOGYOrdered By: SYSTEM SYSTEM on 10-06-2023 Basophils/100 WBC (Bld) 0.9 % Normal 0.0 - 2.0 % Remisol Heme Basophils/Leukocytes Auto (Bld) [Pure # fraction] 0.1 E9/L Normal 0.0 - 0.2 E9/L [facility]e Eosinophils (Bld) [#/Vol] 0.2 E9/L Normal 0.0 - 0.5 E9/L [facility] Eosinophils/100 WBC (Bld) 3.1 % Normal 0.0 - 8.0 % [facility] Erythrocyte distribution width (RBC) [Ratio] 15.1 % High 10.9 - 14.2 % [facility] Hematocrit (Bld) [Volume fraction] 43.2 % Normal 34.0 - 46.0 % [facility] Hemoglobin (Bld) [Mass/Vol] 14.8 g/dL Normal 12.0 - 16.0 gm/dL [facility]e Lymphocytes (Bld) [#/Vol] 2.3 E9/L Normal 1.0 - 4.0 E9/L [facility] Lymphocytes/100 WBC (Bld) 31.3 % Normal 14.0 - 50.0 % Rem[facility]e MCH (RBC) [Entitic mass] 30.2 pg Normal 27. 0 - 34.0 pg Remisol Heme MCHC (RBC) [Mass/Vol] 34.2 g/dL Normal 31.4 - 36.0 gm/dL [facility]e MCV (RBC) [Entitic vol] 88.2 fL Normal 80.0 - 100.0 fL Rem[facility]e Monocytes (Bld) [#/Vol] 0.4 E9/L Normal 0.2 - 1.0 E9/L Rem[facility] Heme Monocytes/100 WBC (Bld) 6.1 % Normal 4.0 - 14.0 % Rem[facility] Heme Neutrophils (Bld) [#/Vol] 4.3 E9/L Normal 2.0 - 7.5 E9/L [facility]e Neutrophils/100 WBC (Bld) 58.6 % Normal 36.0 - 75.0 % [facility] Platelet mean volume (Bld) [Entitic vol] 7.5 fL Normal 6.4 - 10.8 fL [facility]e Platelets (Bld) [#/Vol] 413.0 E9/L Normal 150. 0 - 500.0 E9/L [facility]e RBC (Bld) [#/Vol] 4.9 E12/L Normal 4.3 - 5.9 E12/L [facility] WBC corrected for nucl RBC Auto (Bld) [#/Vol] 7.4 E9/L Normal 4.0 - 11.0 E9/L [facility] PT & PTTon 10-06-2023 aPTT Coag (PPP) [Time] 38.5 second(s) High 25.1-36.5 [facility] Comment on above: Result Comment: Para meter 15 days - 4 weeks 1 - 5 months 6 - 11 months 1 - 5 years 6 - 10 years 11 - 17 years PTT Mean: 35.4 (27.6-45.6) Mean: 33.5 (24.8-40.7) Mean: 32.4 (25.1-40.7) Mean: 31.6 (24.0-39.2) Mean: 31.6 (26.9-38.7) Mean: 31.0 (24.6-38.4) Pediatric Reference ranges were obtained from a study by Scott Cates et al. prepared from 1437 samples obtained at 7 different centers using the same coagulation reagent and instrumentation as [facility]. Currently there are no coagulation studies available worldwide for children to 14 days, and no normal ranges. Heparin therapeutic range (represented by Anti-Factor Xa activity of 0.2 - 0.4 U/mL) corresponds to PTT of 56.6 - 109.0 sec. Performed By: #### 1 [id number] #### [facility] [address] [place] [address] INR Coag (PPP) [Relative time] 1.00 {INR} Invalid Interpretation Code [facility] Comment on above: Result Comment: INR results are specifically intended to assess patients stabilized on long-term Anticoagulation therapy suggested INR?s ?Less Intensive Anticoagulation? 2.0 ? 3.0 Conventional Range 3.0 ? 4.5 Performed By: #### 1 [id number] #### [facility] [address] [place] [address] PT Coag (PPP) [Time] 11.2 second(s) Normal 9.4-12.5 [facility] Comment on above: Result Comment: 15 d ays - 4 weeks 1 - 5 months 6 -11 months 1 ? 5 years 6 ? 10 years 11 -17 years Mean: 11.2 (9.5 ? 12.6) Mean: 11.0 (9.7 ? 12.8) Mean: 11.0 (9.8 ? 13.0) Mean: 11.3 (9.9 ? 13.4) Mean: 11.7 (10.0 ? 14.6) Mean: 11.8 (10.0 - 14.1) Pediatric Reference ranges were obtained from a study by Scott Cates et al. prepared from 1437 samples obtained at 7 different centers using the same coagulation reagent and instrumentation as [facility]. Currently there are no coagulation studies available worldwide for children to 14 days, and no normal ranges. Performed By: #### 1 [id number] #### [facility] [address] [place] [address] Troponin 0 Hr.on 10-06-2023 Troponin HS 5.00 pg/mL Low 10.10-27.10 [facility] Comment on above: Result Comment: The 95% CI (Confidence Interval) PPV (Positive Predictive Value) for myocardial infarction in females is 38 pg/mL, in males 51 pg/mL. The results should be used in conjunction with clinical conditions of myocardial infarction. (Access High Sensitivity Troponin I Instructions For Use, [employer] [place], October 2017) Performed By: #### 1 [id number] #### [facility] [address] [place] [address] Troponin 1 Hr.on 10-06-2023 Troponin HS 4.40 pg/mL Low 10.10-27.10 [facility] Comment on above: Order Comment: due a t 2119 Result Comment: The 95% CI (Confidence Interval) PPV (Positive Predictive Value) for myocardial infarction in females is 38 pg/mL, in males 51 pg/mL. The results should be used in conjunction with clinical conditions of myocardial infarction. (Access High Sensitivity Troponin I Instructions For Use, [employer]na [employer]t [employer] App, October 2017) Performed By: #### 1 [id number] #### [facility] [address] [place] [address] eGFRon 10-06-2023 eGFR 105 mL/min/1.73 m2 Normal >=59 [facility] Comment on above: Order Comment: Order added by Discern Expert. Performed By: #### 1 [id number] #### [facility] [address] [place] [address] Bacteria [Presence] in Urine by AutomatedOrdered By: Denver Hess on 10-03-2023 Bacteria Auto Ql (U) None seen [HPF] None Seen [facility] Bilirubin Test strip Ql (U)O rdered By: Denver Hess on 10-03-2023 Bilirubin Ql (U) Negative Negative [facility] Color Auto (U)Ordered By: Rosy Hess on 10-03-2023 Color (U) Colorless Yellow [facility] Epithelial cells.squamous [# /area] in Urine sediment by Automated countOrdered By: Denver Hess on 10-03-2023 Epithelial cells.squamous Auto (Urine sed) [#/Area] 1-2 [HPF] 0-2 [facility] Erythrocytes [#/area] in Uri ne sediment by Automated countOrdered By: Denver Hess on 10-03-2023 RBC Auto (Urine sed) [#/Area] 1-2 [HPF] 0-4 [facility] Genital specimen bacteria id entification by aerobic cultureOrdered By: Denver Hess on 10-03-2023 Bacteria identified Aer cx Nom (Genital specimen) [facility] Glucose [Mass/volume] in Uri ne by Test stripOrdered By: Denver Hess on 10-03-2023 Glucose Test strip (U) [Mass/Vol] Normal mg/dL Normal [facility] Hemoglobin Test strip Ql (U) Ordered By: Denver Hess on 10-03-2023 Hemoglobin Ql (U) Trace High Negative [facility] Hyaline casts [#/area] in Ur ine sediment by Automated countOrdered By: Denver Hess on 10-03-2023 Hyaline casts Auto (Urine sed) [#/Area] None [LPF] 0-8 [facility] Ketones Test strip Ql (U)Ord ered By: Denver Hess on 10-03-2023 Ketones Ql (U) Negative Negative [facility] Leukocyte esterase [Presence ] in Urine by Test stripOrdered By: Denver Hess on 10-03-2023 Leukocyte esterase Test strip Ql (U) Negative Negative [facility] Leukocytes [#/area] in Urine sediment by Automated countOrdered By: Denver Hess on 10-03-2023 WBC Auto (Urine sed) [#/Area] None seen [HPF] 0-4 [facility] Nitrite Test strip Ql (U)Ord ered By: Denver Hess on 10-03-2023 Nitrite Ql (U) Negative Negative [facility] No Panel InformationOrdered By: Denver Hess on 10-03-2023 Negative Negative [facility] Protein Test strip (U) [Mass /Vol]Ordered By: Denver Hess on 10-03-2023 Protein (U) [Mass/Vol] Negative Negative [facility] Specific gravity Test strip (U) [Rel density]Ordered By: Denver Hess on 10-03-2023 Specific gravity (U) [Rel density] 1.003 1.001-1.030 [facility] Trichomonas vaginalis detect ion by wet preparationOrdered By: Denver Hess on 10-03-2023 T. vaginalis Wet prep Ql (Unsp spec) [facility] Urine appearanceOrdered By: Denver Hess on 10-03-2023 Appearance (U) Clear Clear [facility] Urobilinogen Test strip (U) [Mass/Vol]Ordered By: Denver Hess on 10-03-2023 Urobilinogen (U) [Mass/Vol] Normal mg/dL Normal [facility] pH Test strip (U)Ordered By: Denver Hess on 10-03-2023 pH (U) 6.0 [pH] 5.0-9.0 [facility] Alanine aminotransferase [En zymatic activity/volume] in Serum or PlasmaOrdered By: John Cortes on 09-29-2023 ALT [Catalytic activity/Vol] 20 U/L 7-52 [facility] Albumin [Mass/volume] in Ser um or Plasma by Bromocresol green (BCG) dye binding methoOrdered By: John Cortes on 09-29-2023 Albumin BCG dye [Mass/Vol] 4.5 g/dL 3.5-5.7 [facility] Alkaline phosphatase [Enzyma tic activity/volume] in Serum or PlasmaOrdered By: John Cortes on 09-29-2023 ALP [Catalytic activity/Vol] 84 U/L 34-104 [facility] Aspartate aminotransferase [ Enzymatic activity/volume] in Serum or PlasmaOrdered By: Jonh Cortes on 09-29-2023 AST [Catalytic activity/Vol] 19 U/L 13-39 [facility] Basophils Auto (Bld) [#/Vol] Ordered By: John Cortes on 09-29-2023 Basophils (Bld) [#/Vol] 0.1 10*3/uL 0.0-0.2 [facility] Basophils/100 WBC Auto (Bld) Ordered By: John Cortes on 09-29-2023 Basophils/100 WBC (Bld) 0.7 % . [facility] Bilirubin.total [Mass/volume ] in Serum or PlasmaOrdered By: John Cortes on 09-29-2023 Bilirubin [Mass/Vol] 0.3 mg/dL 0.3-1.0 [facility] Calcium [Mass/volume] in Ser um or PlasmaOrdered By: John Cortes on 09-29-2023 Calcium [Mass/Vol] 9.5 mg/dL 8.6-10.3 [facility] Carbon dioxide, total [Moles /volume] in Serum or PlasmaOrdered By: John Cortes on 09-29-2023 CO2 [Moles/Vol] 21.3 mmol/L 21.0-31.0 [facility] Chloride [Moles/volume] in S jett or PlasmaOrdered By: John Cortes on 09-29-2023 Chloride [Moles/Vol] 106 mmol/L 98-107 [facility] Creatinine [Mass/volume] in Serum or PlasmaOrdered By: John Cortes on 09-29-2023 Creatinine [Mass/Vol] 0.63 mg/dL 0.60-1.20 [facility] Eosinophils Auto (Bld) [#/Vo l]Ordered By: John Cortes on 09-29-2023 Eosinophils (Bld) [#/Vol] 0.2 10*3/uL 0.0-0.45 [facility] Eosinophils/100 WBC Auto (Bl d)Ordered By: John Cortes on 09-29-2023 Eosinophils/100 WBC (Bld) 2.7 % . [facility] Erythrocyte distribution wid th Auto (RBC) [Ratio]Ordered By: John Cortes on 09-29-2023 Erythrocyte distribution width (RBC) [Ratio] 15.1 % 11.9-15.3 [facility] Globulin Calc (S) [Mass/Vol] Ordered By: John Cortes on 09-29-2023 Globulin (S) [Mass/Vol] 3.2 g/dL [facility] Glucose [Mass/volume] in Ser um or PlasmaOrdered By: John Cortes on 09-29-2023 Glucose [Mass/Vol] 95 mg/dL 70-100 [facility] Hematocrit Auto (Bld) [Volum e fraction]Ordered By: John Cortes on 09-29-2023 Hematocrit (Bld) [Volume fraction] 40.4 % 34.0-46.4 [facility] Hemoglobin [Mass/volume] in BloodOrdered By: John Cortes on 09-29-2023 Hemoglobin (Bld) [Mass/Vol] 13.8 g/dL 11.8-15.4 [facility] Leukocytes [#/volume] correc jacki for nucleated erythrocytes in Blood by Automated counOrdered By: John Cortes on 09-29-2023 WBC corrected for nucl RBC Auto (Bld) [#/Vol] 8.8 10*3/uL 3.8-11.6 [facility] Lymphocytes Auto (Bld) [#/Vo l]Ordered By: John Cortes on 09-29-2023 Lymphocytes (Bld) [#/Vol] 2.4 10*3/uL 1.00-4.8 [facility] Lymphocytes/100 WBC Auto (Bl d)Ordered By: John Cortes on 09-29-2023 Lymphocytes/100 WBC (Bld) 27.4 % . [facility] MCH Auto (RBC) [Entitic mass ]Ordered By: John Cortes on 09-29-2023 MCH (RBC) [Entitic mass] 29.9 pg 24.7-34.3 [facility] MCHC Auto (RBC) [Mass/Vol]Or dered By: John Cortes on 09-29-2023 MCHC (RBC) [Mass/Vol] 34.1 g/dL 32.0-35.0 [facility] MCV Auto (RBC) [Entitic vol] Ordered By: John Cortes on 09-29-2023 MCV (RBC) [Entitic vol] 87.6 fL 80-100 [facility] Monocyte distribution width [Entitic volume] in Blood by AutomatedOrdered By: John Cortes on 09-29-2023 Monocyte distribution width Auto (Bld) [Entitic vol] 20.12 % High 0.00-20.00 [facility] Monocytes Auto (Bld) [#/Vol] Ordered By: John Cortes on 09-29-2023 Monocytes (Bld) [#/Vol] 0.8 10*3/uL 0.0-0.8 [facility] [facility] Monocytes/100 WBC Auto (Bld) Ordered By: John Cortes on 09-29-2023 Monocytes/100 WBC (Bld) 8.5 % . [facility] Neutrophils Auto (Bld) [#/Vo l]Ordered By: John Cortes on 09-29-2023 Neutrophils (Bld) [#/Vol] 5.4 10*3/uL 1.8-7.7 [facility] Neutrophils/100 WBC Auto (Bl d)Ordered By: John Cortes on 09-29-2023 Neutrophils/100 WBC (Bld) 60.7 % . [facility] No Panel InformationOrdered By: John Cortes on 09-29-2023 > 60.0 mL/Min [facility] 116.37 [facility] Nucleated erythrocytes [Pres ence] in Blood by Automated countOrdered By: John Cortes on 09-29-2023 Nucleated RBC Auto Ql (Bld) 0.1 /100{WBC} 0-0.5 [facility] Platelet mean volume Auto (B ld) [Entitic vol]Ordered By: John Cortes on 09-29-2023 Platelet mean volume (Bld) [Entitic vol] 7.7 fL 6.3-10.7 [facility] Platelets Auto (Bld) [#/Vol] Ordered By: John Cortes on 09-29-2023 Platelets (Bld) [#/Vol] 365 10*3/uL 150-450 [facility] Potassium [Moles/volume] in Serum or PlasmaOrdered By: John Cortes on 09-29-2023 Potassium [Moles/Vol] 3.8 mmol/L 3.5-5.1 [facility] Protein [Mass/volume] in Ser um or PlasmaOrdered By: John Cortes on 09-29-2023 Protein [Mass/Vol] 7.7 g/dL 6.4-8.9 [facility] RBC Auto (Bld) [#/Vol]Ordere d By: John Cortes on 09-29-2023 RBC (Bld) [#/Vol] 4.61 10*6/uL 3.60-5.00 [facility] Serum or plasma albumin/glob ulin mass ratioOrdered By: John Cortes on 09-29-2023 Albumin/Globulin [Mass ratio] 1.4 {ratio} [facility] Serum or plasma anion gap de terminationOrdered By: John Cortes on 09-29-2023 Anion gap [Moles/Vol] 12.5 mmol/L 6.0-15.0 [facility] Sodium [Moles/volume] in Ser um or PlasmaOrdered By: John Cortes on 09-29-2023 Sodium [Moles/Vol] 136 mmol/L 136-145 [facility] Thyrotropin [Units/volume] i n Serum or PlasmaOrdered By: John Cortes on 09-29-2023 TSH Qn 0.89 m[IU]/L 0.45-5.33 [facility] Troponin I.cardiac [Mass/vol ume] in Serum or Plasma by Detection limit <= 0.01 ng/Ordered By: John Cortes on 09-29-2023 Troponin I.cardiac DL <= 0.01 ng/mL [Mass/Vol] 5.8 pg/mL 0.0-15.0 [facility] Urea nitrogen [Mass/volume] in Serum or PlasmaOrdered By: John Cortes on 09-29-2023 Urea nitrogen [Mass/Vol] 10 mg/dL 10-23 [facility] WBC Auto (Bld) [#/Vol]Ordere d By: John Cortes on 09-29-2023 WBC (Bld) [#/Vol] 8.8 10*3/uL 3.8-11.6 [facility] Alanine aminotransferase [En zymatic activity/volume] in Serum or PlasmaOrdered By: John Cortes on 09-21-2023 ALT [Catalytic activity/Vol] 19 U/L 7 [facility] Albumin [Mass/volume] in Ser um or Plasma by Bromocresol green (BCG) dye binding methoOrdered By: John Cortes on 09-21-2023 Albumin BCG dye [Mass/Vol] 4.2 g/dL 3.5-5.7 [facility] Alkaline phosphatase [Enzyma tic activity/volume] in Serum or PlasmaOrdered By: John Cortes on 09-21-2023 ALP [Catalytic activity/Vol] 82 U/L 34-104 [facility] Aspartate aminotransferase [ Enzymatic activity/volume] in Serum or PlasmaOrdered By: John Cortes on 09-21-2023 AST [Catalytic activity/Vol] 18 U/L 13-39 [facility] Bacteria [Presence] in Urine by AutomatedOrdered By: John Cortes on 09-21-2023 Bacteria Auto Ql (U) Rare [HPF] None Seen [facility] Basophils Auto (Bld) [#/Vol] Ordered By: John Cortes on 09-21-2023 Basophils (Bld) [#/Vol] 0.0 10*3/uL 0.0-0.2 [facility] Basophils/100 WBC Auto (Bld) Ordered By: John Cortes on 09-21-2023 Basophils/100 WBC (Bld) 0.4 % . [facility] Bilirubin Test strip Ql (U)O rdered By: John Cortes on 09-21-2023 Bilirubin Ql (U) Negative Negative [facility] Bilirubin.total [Mass/volume ] in Serum or PlasmaOrdered By: John Cortes on 09-21-2023 Bilirubin [Mass/Vol] 0.2 mg/dL Low 0.3-1.0 [facility] Calcium [Mass/volume] in Ser um or PlasmaOrdered By: John Cortes on 09-21-2023 Calcium [Mass/Vol] 8.7 mg/dL 8.6-10.3 [facility] Carbon dioxide, total [Moles /volume] in Serum or PlasmaOrdered By: John Cortes on 09-21-2023 CO2 [Moles/Vol] 23.1 mmol/L 21.0-31.0 [facility] Chloride [Moles/volume] in S jett or PlasmaOrdered By: John Cortes on 09-21-2023 Chloride [Moles/Vol] 108 mmol/L High 98-107 [facility] Color Auto (U)Ordered By: Telly Cortes on 09-21-2023 Color (U) Light-yellow Yellow [facility] Creatinine [Mass/volume] in Serum or PlasmaOrdered By: John Cortes on 09-21-2023 Creatinine [Mass/Vol] 0.78 mg/dL 0.60-1.20 [facility] Eosinophils Auto (Bld) [#/Vo l]Ordered By: John Cortes on 09-21-2023 Eosinophils (Bld) [#/Vol] 0.4 10*3/uL 0.0-0.45 [facility] Eosinophils/100 WBC Auto (Bl d)Ordered By: John Cortes on 09-21-2023 Eosinophils/100 WBC (Bld) 4.6 % . [facility] Epithelial cells.squamous [# /area] in Urine sediment by Automated countOrdered By: John Cortes on 09-21-2023 Epithelial cells.squamous Auto (Urine sed) [#/Area] 1-2 [HPF] 0-2 [facility] Erythrocyte distribution wid th Auto (RBC) [Ratio]Ordered By: John Cortes on 09-21-2023 Erythrocyte distribution width (RBC) [Ratio] 14.9 % 11.9-15.3 [facility] Erythrocytes [#/area] in Uri ne sediment by Automated countOrdered By: John Cortes on 09-21-2023 RBC Auto (Urine sed) [#/Area] 3-4 [HPF] 0-4 [facility] Globulin Calc (S) [Mass/Vol] Ordered By: John Cortes on 09-21-2023 Globulin (S) [Mass/Vol] 2.7 g/dL [facility] Glucose [Mass/volume] in Ser um or PlasmaOrdered By: John Cortes on 09-21-2023 Glucose [Mass/Vol] 125 mg/dL High 70-[facility] Glucose [Mass/volume] in Uri ne by Test stripOrdered By: John Cortes on 09-21-2023 Glucose Test strip (U) [Mass/Vol] Normal mg/dL Normal [facility] Hematocrit Auto (Bld) [Volum e fraction]Ordered By: John Cortes on 09-21-2023 Hematocrit (Bld) [Volume fraction] 36.6 % 34.0-46.4 [facility] Hemoglobin Test strip Ql (U) Ordered By: John Cortes on 09-21-2023 Hemoglobin Ql (U) 2+ High Negative [facility] Hemoglobin [Mass/volume] in BloodOrdered By: John Cortes on 09-21-2023 Hemoglobin (Bld) [Mass/Vol] 12.5 g/dL 11.8-15.4 [facility] Hyaline casts [#/area] in Ur ine sediment by Automated countOrdered By: John oCrtes on 09-21-2023 Hyaline casts Auto (Urine sed) [#/Area] None [LPF] 0-8 [facility] Ketones Test strip Ql (U)Ord ered By: John Cortes on 09-21-2023 Ketones Ql (U) Negative Negative [facility] Leukocyte esterase [Presence ] in Urine by Test stripOrdered By: John Cortes on 09-21-2023 Leukocyte esterase Test strip Ql (U) Negative Negative [facility] Leukocytes [#/area] in Urine sediment by Automated countOrdered By: John Cortes on 09-21-2023 WBC Auto (Urine sed) [#/Area] 1-2 [HPF] 0-4 [facility] Leukocytes [#/volume] correc jacki for nucleated erythrocytes in Blood by Automated counOrdered By: John Cortes on 09-21-2023 WBC corrected for nucl RBC Auto (Bld) [#/Vol] 8.8 10*3/uL 3.8-11.6 [facility] Lymphocytes Auto (Bld) [#/Vo l]Ordered By: John Cortes on 09-21-2023 Lymphocytes (Bld) [#/Vol] 3.0 10*3/uL 1.00-4.8 [facility] Lymphocytes/100 WBC Auto (Bl d)Ordered By: John Cortes on 09-21-2023 Lymphocytes/100 WBC (Bld) 34.2 % . [facility] MCH Auto (RBC) [Entitic mass ]Ordered By: John Cortes on 09-21-2023 MCH (RBC) [Entitic mass] 29.9 pg 24.7-34.3 [facility] MCHC Auto (RBC) [Mass/Vol]Or dered By: John Cortes on 09-21-2023 MCHC (RBC) [Mass/Vol] 34.1 g/dL 32.0-35.0 [facility] MCV Auto (RBC) [Entitic vol] Ordered By: John Cortes on 09-21-2023 MCV (RBC) [Entitic vol] 87.5 fL 80-100 [facility] Monocyte distribution width [Entitic volume] in Blood by AutomatedOrdered By: John Cortes on 09-21-2023 Monocyte distribution width Auto (Bld) [Entitic vol] 18.69 % 0.00-20.00 [facility] Monocytes Auto (Bld) [#/Vol] Ordered By: John Cortes on 09-21-2023 Monocytes (Bld) [#/Vol] 0.6 10*3/uL 0.0-0.8 [facility] Monocytes/100 WBC Auto (Bld) Ordered By: John Cortes on 09-21-2023 Monocytes/100 WBC (Bld) 6.2 % . [facility] Mucus [Presence] in Urine by AutomatedOrdered By: John Cortes on 09-21-2023 Mucus Auto Ql (U) Rare [LPF] [facility] Neutrophils Auto (Bld) [#/Vo l]Ordered By: John Cortes on 09-21-2023 Neutrophils (Bld) [#/Vol] 4.8 10*3/uL 1.8-7.7 [facility] Neutrophils/100 WBC Auto (Bl d)Ordered By: John Cortes on 09-21-2023 Neutrophils/100 WBC (Bld) 54.6 % . [facility] Nitrite Test strip Ql (U)Ord ered By: John Cortes on 09-21-2023 Nitrite Ql (U) Negative Negative [facility] No Panel InformationOrdered By: John Cortes on 09-21-2023 > 60.0 mL/Min [facility] 89.79 [facility] Nucleated erythrocytes [Pres ence] in Blood by Automated countOrdered By: John Cortes on 09-21-2023 Nucleated RBC Auto Ql (Bld) 0.1 /100{WBC} 0-0.5 [facility] Platelet mean volume Auto (B ld) [Entitic vol]Ordered By: John Cortes on 09-21-2023 Platelet mean volume (Bld) [Entitic vol] 7.6 fL 6.3-10.7 [facility] Platelets Auto (Bld) [#/Vol] Ordered By: John Cortes on 09-21-2023 Platelets (Bld) [#/Vol] 383 10*3/uL 150-450 [facility] Potassium [Moles/volume] in Serum or PlasmaOrdered By: John Cortes on 09-21-2023 Potassium [Moles/Vol] 3.8 mmol/L 3.5-5.1 [facility] Protein Test strip (U) [Mass /Vol]Ordered By: John Cortes on 09-21-2023 Protein (U) [Mass/Vol] Negative Negative [facility] Protein [Mass/volume] in Ser um or PlasmaOrdered By: John Cortes on 09-21-2023 Protein [Mass/Vol] 6.9 g/dL 6.4-8.9 [facility] RBC Auto (Bld) [#/Vol]Ordere d By: John Cortes on 09-21-2023 RBC (Bld) [#/Vol] 4.18 10*6/uL 3.60-5.00 [facility] Serum or plasma albumin/glob ulin mass ratioOrdered By: John Cortes on 09-21-2023 Albumin/Globulin [Mass ratio] 1.6 {ratio} [facility] Serum or plasma anion gap de terminationOrdered By: John Cortes on 09-21-2023 Anion gap [Moles/Vol] 10.7 mmol/L 6.0-15.0 [facility] Sodium [Moles/volume] in Ser um or PlasmaOrdered By: John Cortes on 09-21-2023 Sodium [Moles/Vol] 138 mmol/L 136-145 [facility] Specific gravity Test strip (U) [Rel density]Ordered By: John Cortes on 09-21-2023 Specific gravity (U) [Rel density] 1.022 1.001-1.030 [facility] Urea nitrogen [Mass/volume] in Serum or PlasmaOrdered By: John Cortes on 09-21-2023 Urea nitrogen [Mass/Vol] 14 mg/dL 7-25 [facility] Urine appearanceOrdered By: John Cortes on 09-21-2023 Appearance (U) Clear Clear [facility] Urobilinogen Test strip (U) [Mass/Vol]Ordered By: John Cortes on 09-21-2023 Urobilinogen (U) [Mass/Vol] Normal mg/dL Normal [facility] WBC Auto (Bld) [#/Vol]Ordere d By: John Cortes on 09-21-2023 WBC (Bld) [#/Vol] 8.8 10*3/uL 3.8-11.6 [facility] pH Test strip (U)Ordered By: John Cortes on 09-21-2023 pH (U) 5.5 [pH] 5.0-9.0 [facility] Automated erythrocytes count in urine sediment (number/area)Ordered By: PROVIDER TEMP on 08-06-2023 RBC Auto (Urine sed) [#/Area] 10-19 [HPF] High 0-4 [facility] Automated leukocytes count i n urine sediment (number/area)Ordered By: PROVIDER TEMP on 08-06-2023 WBC Auto (Urine sed) [#/Area] 0-1 [HPF] 0-4 [facility] Basophils Auto (Bld) [#/Vol] Ordered By: Dustin Dorsey on 08-06-2023 Basophils (Bld) [#/Vol] 0.1 10*3/uL 0.0-0.2 [facility] Basophils/100 WBC Auto (Bld) Ordered By: Dustin Dorsey on 08-06-2023 Basophils/100 WBC (Bld) 0.7 % . [facility] Bilirubin Test strip Ql (U)O rdered By: PROVIDER TEMP on 08-06-2023 Bilirubin Ql (U) Negative Negative [facility] Calcium [Mass/volume] in Ser um or PlasmaOrdered By: Dustin Dorsey on 08-06-2023 Calcium [Mass/Vol] 9.1 mg/dL 8.6-10.3 [facility] Carbon dioxide, total [Moles /volume] in Serum or PlasmaOrdered By: Dustin Dorsey on 08-06-2023 CO2 [Moles/Vol] 23.7 mmol/L 21.0-31.0 [facility] Chloride [Moles/volume] in S jett or PlasmaOrdered By: Dustin Dorsey on 08-06-2023 Chloride [Moles/Vol] 107 mmol/L 98-107 [facility] Color Auto (U)Ordered By: BRYAN RENE TEMP on 08-06-2023 Color (U) Yellow Yellow [facility] Creatinine [Mass/volume] in Serum or PlasmaOrdered By: Dustin Dorsey on 08-06-2023 Creatinine [Mass/Vol] 0.82 mg/dL 0.60-1.20 [facility] Eosinophils Auto (Bld) [#/Vo l]Ordered By: Dustin Dorsey on 08-06-2023 Eosinophils (Bld) [#/Vol] 0.3 10*3/uL 0.0-0.45 [facility] Eosinophils/100 WBC Auto (Bl d)Ordered By: Dusitn Dorsey on 08-06-2023 Eosinophils/100 WBC (Bld) 3.8 % . [facility] Erythrocyte distribution wid th Auto (RBC) [Ratio]Ordered By: Dustin Dorsey on 08-06-2023 Erythrocyte distribution width (RBC) [Ratio] 14.9 % 11.9-15.3 [facility] Glucose [Mass/volume] in Ser um or PlasmaOrdered By: Dustin Dorsey on 08-06-2023 Glucose [Mass/Vol] 104 mg/dL High 70-100 [facility] Hematocrit Auto (Bld) [Volum e fraction]Ordered By: Dustin Dorsey on 08-06-2023 Hematocrit (Bld) [Volume fraction] 36.3 % 34.0-46.4 [facility] Hemoglobin [Mass/volume] in BloodOrdered By: Dustin Dorsey on 08-06-2023 Hemoglobin (Bld) [Mass/Vol] 12.2 g/dL 11.8-15.4 [facility] Ketones Auto test strip (U) [Mass/Vol]Ordered By: PROVIDER TEMP on 08-06-2023 Ketones (U) [Mass/Vol] Trace High Negative [facility] Leukocytes [#/volume] correc jacki for nucleated erythrocytes in Blood by Automated counOrdered By: Dustin Dorsey on 08-06-2023 WBC corrected for nucl RBC Auto (Bld) [#/Vol] 8.3 10*3/uL 3.8-11.6 [facility] Lymphocytes Auto (Bld) [#/Vo l]Ordered By: Dustin Dorsey on 08-06-2023 Lymphocytes (Bld) [#/Vol] 2.8 10*3/uL 1.00-4.8 [facility] Lymphocytes/100 WBC Auto (Bl d)Ordered By: Dustin Dorsey on 08-06-2023 Lymphocytes/100 WBC (Bld) 33.6 % . [facility] MCH Auto (RBC) [Entitic mass ]Ordered By: Dustin Dorsey on 08-06-2023 MCH (RBC) [Entitic mass] 29.2 pg 24.7-34.3 [facility] MCHC Auto (RBC) [Mass/Vol]Or dered By: Dustin Dorsey on 08-06-2023 MCHC (RBC) [Mass/Vol] 33.7 g/dL 32.0-35.0 [facility] MCV Auto (RBC) [Entitic vol] Ordered By: Dustin Dorsey on 08-06-2023 MCV (RBC) [Entitic vol] 86.5 fL 80-100 [facility] Monocyte distribution width [Entitic volume] in Blood by AutomatedOrdered By: Dustin Dorsey on 08-06-2023 Monocyte distribution width Auto (Bld) [Entitic vol] 17.19 % 0.00-20.00 [facility] Monocytes Auto (Bld) [#/Vol] Ordered By: Dustin Dorsey on 08-06-2023 Monocytes (Bld) [#/Vol] 0.7 10*3/uL 0.0-0.8 [facility] Monocytes/100 WBC Auto (Bld) Ordered By: Dustin Dorsey on 08-06-2023 Monocytes/100 WBC (Bld) 8.4 % . [facility] Neutrophils Auto (Bld) [#/Vo l]Ordered By: Dustin Dorsey on 08-06-2023 Neutrophils (Bld) [#/Vol] 4.4 10*3/uL 1.8-7.7 [facility] Neutrophils/100 WBC Auto (Bl d)Ordered By: Dustin Dorsey on 08-06-2023 Neutrophils/100 WBC (Bld) 53.5 % . [facility] Nitrite Test strip Ql (U)Ord ered By: PROVIDER TEMP on 08-06-2023 Nitrite Ql (U) Negative Negative [facility] No Panel InformationOrdered By: Dustin Dorsey on 08-06-2023 > 60.0 mL/Min [facility] N/A [facility] No Panel InformationOrdered By: PROVIDER TEMP on 08-06-2023 0-8 [LPF] 0-8 [facility] Nucleated erythrocytes [Pres ence] in Blood by Automated countOrdered By: Dustin Dorsey on 08-06-2023 Nucleated RBC Auto Ql (Bld) 0.1 /100{WBC} 0-0.5 [facility] Platelet mean volume Auto (B ld) [Entitic vol]Ordered By: Dustin Dorsey on 08-06-2023 Platelet mean volume (Bld) [Entitic vol] 7.8 fL 6.3-10.7 [facility] Platelets Auto (Bld) [#/Vol] Ordered By: Dustin Dorsey on 08-06-2023 Platelets (Bld) [#/Vol] 375 10*3/uL 150-450 [facility] Potassium [Moles/volume] in Serum or PlasmaOrdered By: Dustin Dorsey on 08-06-2023 Potassium [Moles/Vol] 3.7 mmol/L 3.5-5.1 [facility] Protein Auto test strip (U) [Mass/Vol]Ordered By: PROVIDER TEMP on 08-06-2023 Protein (U) [Mass/Vol] Negative Negative [facility] RBC Auto (Bld) [#/Vol]Ordere d By: Dustin Dorsey on 08-06-2023 RBC (Bld) [#/Vol] 4.20 10*6/uL 3.60-5.00 [facility] Serum or plasma anion gap de terminationOrdered By: Dustin Dorsey on 08-06-2023 Anion gap [Moles/Vol] 13.0 mmol/L 6.0-15.0 [facility] Sodium [Moles/volume] in Ser um or PlasmaOrdered By: Dustin oDrsey on 08-06-2023 Sodium [Moles/Vol] 140 mmol/L 136-145 [facility] Specific gravity Auto test s trip (U) [Rel density]Ordered By: PROVIDER TEMP on 08-06-2023 Specific gravity (U) [Rel density] 1.028 1.001-1.030 [facility] Squamous epithelial cells de tection in urine sediment by light microscopyOrdered By: PROVIDER TEMP on 08-06-2023 Epithelial cells.squamous LM Ql (Urine sed) 3-4 [HPF] High 0-2 [facility] Urea nitrogen [Mass/volume] in Serum or PlasmaOrdered By: Dustin Dorsey on 08-06-2023 Urea nitrogen [Mass/Vol] 13 mg/dL 7-25 [facility] Urine bacteria detection by automated methodOrdered By: PROVIDER TEMP on 08-06-2023 Bacteria Auto Ql (U) None seen [HPF] None Seen [facility] Urine clarity by refractomet ry automatedOrdered By: PROVIDER TEMP on 08-06-2023 Clarity Refractometry automated (U) Clear Clear [facility] Urine glucose measurement by automated test strip (mass/volume)Ordered By: PROVIDER TEMP on 08-06-2023 Glucose Auto test strip (U) [Mass/Vol] Normal mg/dL Normal [facility] Urine hemoglobin detection b y automated test stripOrdered By: PROVIDER TEMP on 08-06-2023 Hemoglobin Auto test strip Ql (U) 2+ High Negative [facility] Urine leukocyte esterase det ection by automated test stripOrdered By: PROVIDER TEMP on 08-06-2023 Leukocyte esterase Auto test strip Ql (U) Negative Negative [facility] Urobilinogen Auto test strip (U) [Mass/Vol]Ordered By: PROVIDER TEMP on 08-06-2023 Urobilinogen (U) [Mass/Vol] Normal mg/dL Normal [facility] WBC Auto (Bld) [#/Vol]Ordere d By: Dustin Dorsey on 08-06-2023 WBC (Bld) [#/Vol] 8.3 10*3/uL 3.8-11.6 [facility] pH Auto test strip (U)Ordere d By: PROVIDER TEMP on 08-06-2023 pH (U) 5.5 [pH] 5.0-9.0 [facility] Activated partial thrombopla stin time (aPTT) in platelet poor plasma by coagulation aOrdered By: Dominik Hall on 07-13-2023 aPTT Coag (PPP) [Time] 35.6 s 25.1-36.5 [facility] Alanine aminotransferase [En zymatic activity/volume] in Serum or PlasmaOrdered By: Dominik Hall on 07-13-2023 ALT [Catalytic activity/Vol] 20 U/L 7-52 [facility] Albumin [Mass/volume] in Ser um or Plasma by Bromocresol green (BCG) dye binding methoOrdered By: Dominik Hall on 07-13-2023 Albumin BCG dye [Mass/Vol] 4.6 g/dL 3.5-5.7 [facility] Alkaline phosphatase [Enzyma tic activity/volume] in Serum or PlasmaOrdered By: Dominik Hall on 07-13-2023 ALP [Catalytic activity/Vol] 79 U/L 34-104 [facility] Aspartate aminotransferase [ Enzymatic activity/volume] in Serum or PlasmaOrdered By: Dominik Hall on 07-13-2023 AST [Catalytic activity/Vol] 17 U/L 13-39 [facility] Basophils Auto (Bld) [#/Vol] Ordered By: Dominik Hall on 07-13-2023 Basophils (Bld) [#/Vol] 0.0 10*3/uL 0.0-0.2 [facility] Basophils/100 WBC Auto (Bld) Ordered By: Dominik Hall on 07-13-2023 Basophils/100 WBC (Bld) 0.5 % . [facility] Bilirubin.direct [Mass/volum e] in Serum or PlasmaOrdered By: Dominik Hall on 07-13-2023 Bilirubin.direct [Mass/Vol] 0.00 mg/dL Low 0.03-0.18 [facility] Bilirubin.total [Mass/volume ] in Serum or PlasmaOrdered By: Dominik Hall on 07-13-2023 Bilirubin [Mass/Vol] 0.2 mg/dL Low 0.3-1.0 [facility] Calcium [Mass/volume] in Ser um or PlasmaOrdered By: Dominik Hall 07-13-2023 Calcium [Mass/Vol] 9.8 mg/dL 8.6-10.3 [facility] Carbon dioxide, total [Moles /volume] in Serum or PlasmaOrdered By: Dominik Hall on 07-13-2023 CO2 [Moles/Vol] 26.5 mmol/L 21.0-31.0 [facility] Chloride [Moles/volume] in S jett or PlasmaOrdered By: Dominik Hall on 07-13-2023 Chloride [Moles/Vol] 104 mmol/L 98-107 [facility] Creatine kinase [Enzymatic a ctivity/volume] in Serum or PlasmaOrdered By: Dominik Hall 07-13-2023 CK [Catalytic activity/Vol] 162 U/L 30-223 [facility] Creatinine [Mass/volume] in Serum or PlasmaOrdered By: Dominik Hall on 07-13-2023 Creatinine [Mass/Vol] 0.74 mg/dL 0.60-1.20 [facility] Eosinophils Auto (Bld) [#/Vo l]Ordered By: Dominik Hall on 07-13-2023 Eosinophils (Bld) [#/Vol] 0.3 10*3/uL 0.0-0.45 [facility] Eosinophils/100 WBC Auto (Bl d)Ordered By: Dominik Hall on 07-13-2023 Eosinophils/100 WBC (Bld) 4.6 % . [facility] Erythrocyte distribution wid th Auto (RBC) [Ratio]Ordered By: Dominik Hall on 07-13-2023 Erythrocyte distribution width (RBC) [Ratio] 14.4 % 11.9-15.3 [facility] Globulin Calc (S) [Mass/Vol] Ordered By: Dominik Hall on 07-13-2023 Globulin (S) [Mass/Vol] 2.9 g/dL [facility] Glucose [Mass/volume] in Ser um or PlasmaOrdered By: Dominik Hall on 07-13-2023 Glucose [Mass/Vol] 102 mg/dL High 70-100 [facility] Hematocrit Auto (Bld) [Volum e fraction]Ordered By: Dominik Hall on 07-13-2023 Hematocrit (Bld) [Volume fraction] 36.2 % 34.0-46.4 [facility] Hemoglobin [Mass/volume] in BloodOrdered By: Dominik Hall on 07-13-2023 Hemoglobin (Bld) [Mass/Vol] 12.2 g/dL 11.8-15.4 [facility] INR in Platelet poor plasma by Coagulation assayOrdered By: Dominik Hall on 07-13-2023 INR Coag (PPP) [Relative time] 0.9 {INR} [facility] Leukocytes [#/volume] correc jacki for nucleated erythrocytes in Blood by Automated counOrdered By: Dominik Hall on 07-13-2023 WBC corrected for nucl RBC Auto (Bld) [#/Vol] 7.3 10*3/uL 3.8-11.6 [facility] Lymphocytes Auto (Bld) [#/Vo l]Ordered By: Dominik Hall on 07-13-2023 Lymphocytes (Bld) [#/Vol] 2.5 10*3/uL 1.00-4.8 [facility] Lymphocytes/100 WBC Auto (Bl d)Ordered By: Dominik Hall on 07-13-2023 Lymphocytes/100 WBC (Bld) 34.0 % . [facility] MCH Auto (RBC) [Entitic mass ]Ordered By: Dominik Hall on 07-13-2023 MCH (RBC) [Entitic mass] 29.0 pg 24.7-34.3 [facility] MCHC Auto (RBC) [Mass/Vol]Or dered By: Dominik Hall on 07-13-2023 MCHC (RBC) [Mass/Vol] 33.7 g/dL 32.0-35.0 [facility] MCV Auto (RBC) [Entitic vol] Ordered By: Dominik Hall on 07-13-2023 MCV (RBC) [Entitic vol] 86.1 fL 80-100 [facility] Monocyte distribution width [Entitic volume] in Blood by AutomatedOrdered By: Dominik Hall on 07-13-2023 Monocyte distribution width Auto (Bld) [Entitic vol] 18.88 % 0.00-20.00 [facility] Monocytes Auto (Bld) [#/Vol] Ordered By: Dominik Hall on 07-13-2023 Monocytes (Bld) [#/Vol] 0.6 10*3/uL 0.0-0.8 [facility] Monocytes/100 WBC Auto (Bld) Ordered By: Dominik Hall on 07-13-2023 Monocytes/100 WBC (Bld) 7.6 % . [facility] Natriuretic peptide B [Mass/ Vol]Ordered By: Dominik Hall on 07-13-2023 Natriuretic peptide B (Bld) [Mass/Vol] 5.0 pg/mL 5-100 [facility] Neutrophils Auto (Bld) [#/Vo l]Ordered By: Dominik Hall on 07-13-2023 Neutrophils (Bld) [#/Vol] 3.9 10*3/uL 1.8-7.7 [facility] Neutrophils/100 WBC Auto (Bl d)Ordered By: Dominik Hall on 07-13-2023 Neutrophils/100 WBC (Bld) 53.3 % . [facility] No Panel InformationOrdered By: Dominik Hall on 07-13-2023 > 60.0 mL/Min [facility] 97.27 [facility] Nucleated erythrocytes [Pres ence] in Blood by Automated countOrdered By: Dominik Hall on 07-13-2023 Nucleated RBC Auto Ql (Bld) 0.1 /100{WBC} 0-0.5 [facility] Platelet mean volume Auto (B ld) [Entitic vol]Ordered By: Dominik Hall on 07-13-2023 Platelet mean volume (Bld) [Entitic vol] 7.8 fL 6.3-10.7 [facility] Platelets Auto (Bld) [#/Vol] Ordered By: Dominik Hall on 07-13-2023 Platelets (Bld) [#/Vol] 406 10*3/uL 150-450 [facility] Potassium [Moles/volume] in Serum or PlasmaOrdered By: Dominik Hall on 07-13-2023 Potassium [Moles/Vol] 4.3 mmol/L 3.5-5.1 [facility] Protein [Mass/volume] in Ser um or PlasmaOrdered By: Dominik Hall on 07-13-2023 Protein [Mass/Vol] 7.5 g/dL 6.4-8.9 [facility] Prothrombin time (PT)Ordered By: Dominik Hall on 07-13-2023 PT Coag (PPP) [Time] 10.6 s 9.0-12.9 [facility] RBC Auto (Bld) [#/Vol]Ordere d By: Dominik Hall on 07-13-2023 RBC (Bld) [#/Vol] 4.20 10*6/uL 3.60-5.00 [facility] Serum or plasma albumin/glob ulin mass ratioOrdered By: Dominik Hall on 07-13-2023 Albumin/Globulin [Mass ratio] 1.6 {ratio} [facility] Serum or plasma anion gap de terminationOrdered By: Dominik Hall on 07-13-2023 Anion gap [Moles/Vol] 12.8 mmol/L 6.0-15.0 [facility] Serum or plasma non-glucuron idated bilirubin measurement (mass/volume)Ordered By: Dominik Hall on 07-13-2023 Bilirubin.indirect [Mass/Vol] 0.2 mg/dL [facility] Sodium [Moles/volume] in Ser um or PlasmaOrdered By: Dominik Hall on 07-13-2023 Sodium [Moles/Vol] 139 mmol/L 136-145 [facility] Troponin I.cardiac [Mass/vol ume] in Serum or Plasma by Detection limit <= 0.01 ng/Ordered By: Dominik Hall on 07-13-2023 Troponin I.cardiac DL <= 0.01 ng/mL [Mass/Vol] 4.0 pg/mL 0.0-15.0 [facility] Urea nitrogen [Mass/volume] in Serum or PlasmaOrdered By: Dominik Hall on 07-13-2023 Urea nitrogen [Mass/Vol] 15 mg/dL 7-25 [facility] WBC Auto (Bld) [#/Vol]Ordere d By: Dominik Hall on 07-13-2023 WBC (Bld) [#/Vol] 7.3 10*3/uL 3.8-11.6 [facility] Basophils Auto (Bld) [#/Vol] Ordered By: Dustin Dorsey on 06-19-2023 Basophils (Bld) [#/Vol] 0.1 10*3/uL 0.0-0.2 [facility] Basophils/100 WBC Auto (Bld) Ordered By: Dustin Dorsey on 06-19-2023 Basophils/100 WBC (Bld) 0.8 % . [facility] Calcium [Mass/volume] in Ser um or PlasmaOrdered By: Dustin Dorsey on 06-19-2023 Calcium [Mass/Vol] 9.4 mg/dL 8.6-10.3 [facility] Carbon dioxide, total [Moles /volume] in Serum or PlasmaOrdered By: Dustin Dorsey on 06-19-2023 CO2 [Moles/Vol] 27.7 mmol/L 21.0-31.0 [facility] Chloride [Moles/volume] in S jett or PlasmaOrdered By: Dustin Dorsey on 06-19-2023 Chloride [Moles/Vol] 104 mmol/L 98-107 [facility] Creatinine [Mass/volume] in Serum or PlasmaOrdered By: Dustin Dorsey on 06-19-2023 Creatinine [Mass/Vol] 0.68 mg/dL 0.60-1.20 [facility] Eosinophils Auto (Bld) [#/Vo l]Ordered By: Dustin Dorsey on 06-19-2023 Eosinophils (Bld) [#/Vol] 0.2 10*3/uL 0.0-0.45 [facility] Eosinophils/100 WBC Auto (Bl d)Ordered By: Dustin Dorsey on 06-19-2023 Eosinophils/100 WBC (Bld) 3.0 % . [facility] Erythrocyte distribution wid th Auto (RBC) [Ratio]Ordered By: Dustin Dorsey on 06-19-2023 Erythrocyte distribution width (RBC) [Ratio] 14.9 % 11.9-15.3 [facility] Glucose [Mass/volume] in Ser um or PlasmaOrdered By: Dustin Dorsey on 06-19-2023 Glucose [Mass/Vol] 112 mg/dL 70-100 [facility] Hematocrit Auto (Bld) [Volum e fraction]Ordered By: Dustin Dorsey on 06-19-2023 Hematocrit (Bld) [Volume fraction] 40.4 % 34.0-46.4 [facility] Hemoglobin [Mass/volume] in BloodOrdered By: Dustin Dorsey on 06-19-2023 Hemoglobin (Bld) [Mass/Vol] 13.5 g/dL 11.8-15.4 [facility] Leukocytes [#/volume] correc jacki for nucleated erythrocytes in Blood by Automated counOrdered By: Dustin Dorsey on 06-19-2023 WBC corrected for nucl RBC Auto (Bld) [#/Vol] 7.8 10*3/uL 3.8-11.6 [facility] Lymphocytes Auto (Bld) [#/Vo l]Ordered By: Dustin Dorsey on 06-19-2023 Lymphocytes (Bld) [#/Vol] 2.0 10*3/uL 1.00-4.8 [facility] Lymphocytes/100 WBC Auto (Bl d)Ordered By: Dustin Dorsey on 06-19-2023 Lymphocytes/100 WBC (Bld) 25.3 % . [facility] MCH Auto (RBC) [Entitic mass ]Ordered By: Dustin Dorsey on 06-19-2023 MCH (RBC) [Entitic mass] 28.9 pg 24.7-34.3 [facility] MCHC Auto (RBC) [Mass/Vol]Or dered By: Dustin Dorsey on 06-19-2023 MCHC (RBC) [Mass/Vol] 33.3 g/dL 32.0-35.0 [facility] MCV Auto (RBC) [Entitic vol] Ordered By: Dustin Dorsey on 06-19-2023 MCV (RBC) [Entitic vol] 86.7 fL 80-100 [facility] Monocyte distribution width [Entitic volume] in Blood by AutomatedOrdered By: Dustin Dorsey on 06-19-2023 Monocyte distribution width Auto (Bld) [Entitic vol] 18.52 % 0.00-20.00 [facility] Monocytes Auto (Bld) [#/Vol] Ordered By: Dustin Dorsey on 06-19-2023 Monocytes (Bld) [#/Vol] 0.6 10*3/uL 0.0-0.8 [facility] Monocytes/100 WBC Auto (Bld) Ordered By: Dustin Dorsey on 06-19-2023 Monocytes/100 WBC (Bld) 7.1 % . [facility] Neutrophils Auto (Bld) [#/Vo l]Ordered By: Dustin Dorsey on 06-19-2023 Neutrophils (Bld) [#/Vol] 5.0 10*3/uL 1.8-7.7 [facility] Neutrophils/100 WBC Auto (Bl d)Ordered By: Dustin Dorsey on 06-19-2023 Neutrophils/100 WBC (Bld) 63.8 % . [facility] No Panel InformationOrdered By: Dustin Dorsey on 06-19-2023 > 60.0 mL/Min [facility] 109.36 [facility] Nucleated erythrocytes [Pres ence] in Blood by Automated countOrdered By: Dustin Dorsey on 06-19-2023 Nucleated RBC Auto Ql (Bld) 0.1 /100{WBC} 0-0.5 [facility] Platelet mean volume Auto (B ld) [Entitic vol]Ordered By: Dustin Dorsey on 06-19-2023 Platelet mean volume (Bld) [Entitic vol] 8.1 fL 6.3-10.7 [facility] Platelets Auto (Bld) [#/Vol] Ordered By: Dustin Dorsey on 06-19-2023 Platelets (Bld) [#/Vol] 381 10*3/uL 150-450 [facility] Potassium [Moles/volume] in Serum or PlasmaOrdered By: Dustin Dorsey on 06-19-2023 Potassium [Moles/Vol] 3.8 mmol/L 3.5-5.1 [facility] RBC Auto (Bld) [#/Vol]Ordere d By: Dustin Dorsey on 06-19-2023 RBC (Bld) [#/Vol] 4.66 10*6/uL 3.60-5.00 [facility] Serum or plasma anion gap de terminationOrdered By: Dustin oDrsey on 06-19-2023 Anion gap [Moles/Vol] 12.1 mmol/L 6.0-15.0 [facility] Sodium [Moles/volume] in Ser um or PlasmaOrdered By: Dustin Dorsey on 06-19-2023 Sodium [Moles/Vol] 140 mmol/L 136-145 [facility] Troponin I.cardiac [Mass/vol ume] in Serum or Plasma by Detection limit <= 0.01 ng/Ordered By: Dustin Dorsey on 06-19-2023 Troponin I.cardiac DL <= 0.01 ng/mL [Mass/Vol] 5.3 pg/mL 0.0-15.0 [facility] Urea nitrogen [Mass/volume] in Serum or PlasmaOrdered By: Dustin Dorsey on 06-19-2023 Urea nitrogen [Mass/Vol] 9 mg/dL 7-25 [facility] WBC Auto (Bld) [#/Vol]Ordere d By: Dustin Dorsey on 06-19-2023 WBC (Bld) [#/Vol] 7.8 10*3/uL 3.8-11.6 [facility] COVID CepheidOrdered By: Richard Cortes on 06-17-2023 SARS-CoV-2 (COVID-19) RNA EMI+probe Ql (Unsp spec) Negative Negative [facility] SARS-CoV-2 (COVID-19) RNA EMI+probe Ql (Unsp spec) [facility] Streptococcus pyogenes antig en detectionOrdered By: John Cortes on 06-17-2023 S. pyogenes Ag Ql (Unsp spec) [facility] Activated partial thrombopla stin time (aPTT) in platelet poor plasma by coagulation aOrdered By: Severo Aponte on 06-15-2023 aPTT Coag (PPP) [Time] 25.1 s 25.1-36.5 [facility] Alanine aminotransferase [En zymatic activity/volume] in Serum or PlasmaOrdered By: Severo Aponte on 06-15-2023 ALT [Catalytic activity/Vol] 16 U/L 7-52 [facility] Albumin [Mass/volume] in Ser um or Plasma by Bromocresol green (BCG) dye binding methoOrdered By: Severo Aponte on 06-15-2023 Albumin BCG dye [Mass/Vol] 4.4 g/dL 3.5-5.7 [facility] Alkaline phosphatase [Enzyma tic activity/volume] in Serum or PlasmaOrdered By: Severo Aponte on 06-15-2023 ALP [Catalytic activity/Vol] 78 U/L 34-104 [facility] Anisocytosis LM Ql (Bld)Orde red By: Severo Aponte on 06-15-2023 Anisocytosis Ql (Bld) Moderate [facility] Aspartate aminotransferase [ Enzymatic activity/volume] in Serum or PlasmaOrdered By: Severo Aponte on 06-15-2023 AST [Catalytic activity/Vol] 14 U/L 13-39 [facility] Automated erythrocytes count in urine sediment (number/area)Ordered By: Severo Aponte on 06-15-2023 RBC Auto (Urine sed) [#/Area] 5-9 [HPF] 0-4 [facility] Automated leukocytes count i n urine sediment (number/area)Ordered By: Severo Aponte on 06-15-2023 WBC Auto (Urine sed) [#/Area] None seen [HPF] 0-4 [facility] Basophils Auto (Bld) [#/Vol] Ordered By: Severo Aponte on 06-15-2023 Basophils (Bld) [#/Vol] N/A [facility] Basophils/100 WBC Auto (Bld) Ordered By: Severo Aponte on 06-15-2023 Basophils/100 WBC (Bld) N/A [facility] Bilirubin Test strip Ql (U)O rdered By: Severo Aponte on 06-15-2023 Bilirubin Ql (U) Negative Negative [facility] Bilirubin.total [Mass/volume ] in Serum or PlasmaOrdered By: Severo Aponte on 06-15-2023 Bilirubin [Mass/Vol] 0.3 mg/dL 0.3-1.0 [facility] COVID CepheidOrdered By: Lucy Aponte on 06-15-2023 SARS-CoV-2 (COVID-19) RNA EMI+probe Ql (Unsp spec) Negative Negative [facility] SARS-CoV-2 (COVID-19) RNA EMI+probe Ql (Unsp spec) [facility] Calcium [Mass/volume] in Ser um or PlasmaOrdered By: Severo Aponte on 06-15-2023 Calcium [Mass/Vol] 9.4 mg/dL 8.6-10.3 [facility] Carbon dioxide, total [Moles /volume] in Serum or PlasmaOrdered By: Severo Aponte on 06-15-2023 CO2 [Moles/Vol] 21.3 mmol/L 21.0-31.0 [facility] Chloride [Moles/volume] in S jett or PlasmaOrdered By: Severo Aponte on 06-15-2023 Chloride [Moles/Vol] 107 mmol/L 98-107 [facility] Color Auto (U)Ordered By: Julio Aponte on 06-15-2023 Color (U) Yellow Yellow [facility] Creatine kinase [Enzymatic a ctivity/volume] in Serum or PlasmaOrdered By: Severo Aponte on 06-15-2023 CK [Catalytic activity/Vol] 126 U/L 30-223 [facility] Creatinine [Mass/volume] in Serum or PlasmaOrdered By: Severo Aponte on 06-15-2023 Creatinine [Mass/Vol] 0.66 mg/dL 0.60-1.20 [facility] Eosinophils Auto (Bld) [#/Vo l]Ordered By: Severo Aponte on 06-15-2023 Eosinophils (Bld) [#/Vol] N/A [facility] Eosinophils/100 WBC Auto (Bl d)Ordered By: Severo Aponte on 06-15-2023 Eosinophils/100 WBC (Bld) N/A [facility] Eosinophils/100 WBC Manual c nt (Bld)Ordered By: Severo Aponte on 06-15-2023 Eosinophils/100 WBC (Bld) 4 % 1-3 [facility] Erythrocyte distribution wid th Auto (RBC) [Ratio]Ordered By: Severo Aponte on 06-15-2023 Erythrocyte distribution width (RBC) [Ratio] 15.0 % 11.9-15.3 [facility] Globulin Calc (S) [Mass/Vol] Ordered By: Severo Aponte on 06-15-2023 Globulin (S) [Mass/Vol] 3.1 g/dL [facility] Glucose Glucometer (BldC) [M ass/Vol]Ordered By: Severo Aponte on 06-15-2023 Glucose [Mass/Vol] 152 mg/dL [facility] Glucose [Mass/volume] in Ser um or PlasmaOrdered By: Severo Aponte on 06-15-2023 Glucose [Mass/Vol] 115 mg/dL 70-100 [facility] Hematocrit Auto (Bld) [Volum e fraction]Ordered By: Sveero Aponte on 06-15-2023 Hematocrit (Bld) [Volume fraction] 36.9 % 34.0-46.4 [facility] Hemoglobin [Mass/volume] in BloodOrdered By: Severo Aponte on 06-15-2023 Hemoglobin (Bld) [Mass/Vol] 12.3 g/dL 11.8-15.4 [facility] INR in Platelet poor plasma by Coagulation assayOrdered By: Severo Aponte on 06-15-2023 INR Coag (PPP) [Relative time] 0.9 {INR} [facility] Ketones Auto test strip (U) [Mass/Vol]Ordered By: Severo Aponte on 06-15-2023 Ketones (U) [Mass/Vol] Negative Negative [facility] Leukocytes [#/volume] correc jacki for nucleated erythrocytes in Blood by Automated counOrdered By: Severo Aponte on 06-15-2023 WBC corrected for nucl RBC Auto (Bld) [#/Vol] 6.8 10*3/uL 3.8-11.6 [facility] Lymphocytes Auto (Bld) [#/Vo l]Ordered By: Severo Aponte on 06-15-2023 Lymphocytes (Bld) [#/Vol] N/A [facility] Lymphocytes/100 WBC Auto (Bl d)Ordered By: Severo Aponte on 06-15-2023 Lymphocytes/100 WBC (Bld) N/A [facility] Lymphocytes/100 WBC Manual c nt (Bld)Ordered By: Severo Aponte on 06-15-2023 Lymphocytes/100 WBC (Bld) 26 % 18-42 [facility] MCH Auto (RBC) [Entitic mass ]Ordered By: Severo Aponte on 06-15-2023 MCH (RBC) [Entitic mass] 28.8 pg 24.7-34.3 [facility] MCHC Auto (RBC) [Mass/Vol]Or dered By: Severo Aponte on 06-15-2023 MCHC (RBC) [Mass/Vol] 33.2 g/dL 32.0-35.0 [facility] MCV Auto (RBC) [Entitic vol] Ordered By: Severo Aponte on 06-15-2023 MCV (RBC) [Entitic vol] 86.6 fL 80-100 [facility] Magnesium [Mass/volume] in S jett or PlasmaOrdered By: Severo Aponte on 06-15-2023 Magnesium [Mass/Vol] 1.6 mg/dL 1.9-2.7 [facility] Microcytes LM Ql (Bld)Ordere d By: Severo Aponte on 06-15-2023 Microcytes Ql (Bld) Moderate [facility] Monocytes Auto (Bld) [#/Vol] Ordered By: Severo Aponte on 06-15-2023 Monocytes (Bld) [#/Vol] N/A [facility] Monocytes/100 WBC Auto (Bld) Ordered By: Severo Aponte on 06-15-2023 Monocytes/100 WBC (Bld) N/A [facility] Monocytes/100 WBC Manual cnt (Bld)Ordered By: Severo Aponte on 06-15-2023 Monocytes/100 WBC (Bld) 7 % 2-11 [facility] Natriuretic peptide B [Mass/ Vol]Ordered By: Severo Aponte on 06-15-2023 Natriuretic peptide B (Bld) [Mass/Vol] 35.0 pg/mL 5-100 [facility] Neutrophils Auto (Bld) [#/Vo l]Ordered By: Severo Aponte on 06-15-2023 Neutrophils (Bld) [#/Vol] N/A [facility] Neutrophils/100 WBC Auto (Bl d)Ordered By: Severo Aponte on 06-15-2023 Neutrophils/100 WBC (Bld) N/A [facility] Nitrite Test strip Ql (U)Ord ered By: Severo Aponte on 06-15-2023 Nitrite Ql (U) Negative Negative [facility] No Panel InformationOrdered By: Severo Aponte on 06-15-2023 > 60.0 mL/Min [facility] 112.01 [facility] None seen [LPF] 0-8 [facility] Nucleated erythrocytes [Pres ence] in Blood by Automated countOrdered By: Severo Aponte on 06-15-2023 Nucleated RBC Auto Ql (Bld) N/A [facility] Platelet adequacy [Presence] in Blood by Light microscopyOrdered By: Severo Aponte on 06-15-2023 Platelets LM Ql (Bld) Normal Normal [facility] Platelet mean volume Auto (B ld) [Entitic vol]Ordered By: Severo Aponte on 06-15-2023 Platelet mean volume (Bld) [Entitic vol] 7.9 fL 6.3-10.7 [facility] Platelet morphology finding [Identifier] in BloodOrdered By: Severo Aponte on 06-15-2023 Platelet morphology finding Nom (Bld) Normal Normal [facility] Platelets Auto (Bld) [#/Vol] Ordered By: Severo Aponte on 06-15-2023 Platelets (Bld) [#/Vol] 350 10*3/uL 150-450 [facility] Potassium [Moles/volume] in Serum or PlasmaOrdered By: Severo Aponte on 06-15-2023 Potassium [Moles/Vol] 4.3 mmol/L 3.5-5.1 [facility] Protein Auto test strip (U) [Mass/Vol]Ordered By: Severo Aponte on 06-15-2023 Protein (U) [Mass/Vol] Negative Negative [facility] Protein [Mass/volume] in Ser um or PlasmaOrdered By: Severo Aponte on 06-15-2023 Protein [Mass/Vol] 7.5 g/dL 6.4-8.9 [facility] Prothrombin time (PT)Ordered By: Severo Aponte on 06-15-2023 PT Coag (PPP) [Time] 10.9 s 9.0-12.9 [facility] RBC Auto (Bld) [#/Vol]Ordere d By: Severo Aponte on 06-15-2023 RBC (Bld) [#/Vol] 4.26 10*6/uL 3.60-5.00 [facility] RBC morphologyOrdered By: Julio Aponte on 06-15-2023 RBC morphology finding Nom (Bld) N/A [facility] Segmented neutrophils/100 WB C Manual cnt (Bld)Ordered By: Severo Aponte on 06-15-2023 Segmented neutrophils/100 WBC (Bld) 64 % 50-70 [facility] Serum or plasma albumin/glob ulin mass ratioOrdered By: Severo Aponte on 06-15-2023 Albumin/Globulin [Mass ratio] 1.4 {ratio} [facility] Serum or plasma anion gap de terminationOrdered By: Severo Aponte on 06-15-2023 Anion gap [Moles/Vol] See comment 6.0-15.0 [facility] Sodium [Moles/volume] in Ser um or PlasmaOrdered By: Severo Aponte on 06-15-2023 Sodium [Moles/Vol] 142 mmol/L 136-145 [facility] Specific gravity Auto test s trip (U) [Rel density]Ordered By: Severo Aponte on 06-15-2023 Specific gravity (U) [Rel density] 1.008 1.001-1.030 [facility] Squamous epithelial cells de tection in urine sediment by light microscopyOrdered By: Severo Aponte on 06-15-2023 Epithelial cells.squamous LM Ql (Urine sed) 0-1 [HPF] 0-2 [facility] Troponin I.cardiac [Mass/vol ume] in Serum or Plasma by Detection limit <= 0.01 ng/Ordered By: Severo Aponte on 06-15-2023 Troponin I.cardiac DL <= 0.01 ng/mL [Mass/Vol] 4.9 pg/mL 0.0-15.0 [facility] Urea nitrogen [Mass/volume] in Serum or PlasmaOrdered By: Severo Aponte on 06-15-2023 Urea nitrogen [Mass/Vol] 9 mg/dL 7-25 [facility] Urine bacteria detection by automated methodOrdered By: Severo Aponte on 06-15-2023 Bacteria Auto Ql (U) None seen None Seen [facility] Urine clarity by refractomet ry automatedOrdered By: Severo Aponte on 06-15-2023 Clarity Refractometry automated (U) Clear Clear [facility] Urine glucose measurement by automated test strip (mass/volume)Ordered By: Severo Aponte on 06-15-2023 Glucose Auto test strip (U) [Mass/Vol] Normal mg/dL Normal [facility] Urine hemoglobin detection b y automated test stripOrdered By: Severo Aponte on 06-15-2023 Hemoglobin Auto test strip Ql (U) 1+ Negative [facility] Urine leukocyte esterase det ection by automated test stripOrdered By: Severo Aponte on 06-15-2023 Leukocyte esterase Auto test strip Ql (U) Negative Negative [facility] Urobilinogen Auto test strip (U) [Mass/Vol]Ordered By: Severo Aponte on 06-15-2023 Urobilinogen (U) [Mass/Vol] Normal mg/dL Normal [facility] WBC Auto (Bld) [#/Vol]Ordere d By: Severo Aponte on 06-15-2023 WBC (Bld) [#/Vol] 6.8 10*3/uL 3.8-11.6 [facility] pH Auto test strip (U)Ordere d By: Severo Aponte on 06-15-2023 pH (U) 6.5 [pH] 5.0-9.0 [facility] Alanine aminotransferase [En zymatic activity/volume] in Serum or PlasmaOrdered By: Dustin Dorsey on 06-03-2023 ALT [Catalytic activity/Vol] 17 U/L 7-52 [facility] Albumin [Mass/volume] in Ser um or Plasma by Bromocresol green (BCG) dye binding methoOrdered By: Dustin Dorsey on 06-03-2023 Albumin BCG dye [Mass/Vol] 4.1 g/dL 3.5-5.7 [facility] Alkaline phosphatase [Enzyma tic activity/volume] in Serum or PlasmaOrdered By: Dustin Dorsey on 06-03-2023 ALP [Catalytic activity/Vol] 72 U/L 34-104 [facility] Aspartate aminotransferase [ Enzymatic activity/volume] in Serum or PlasmaOrdered By: Dustin Dorsey on 06-03-2023 AST [Catalytic activity/Vol] 17 U/L 13-39 [facility] Automated erythrocytes count in urine sediment (number/area)Ordered By: Dustin Dorsey on 06-03-2023 RBC Auto (Urine sed) [#/Area] 1-2 [HPF] 0-4 [facility] Automated leukocytes count i n urine sediment (number/area)Ordered By: Dustin Dorsey on 06-03-2023 WBC Auto (Urine sed) [#/Area] None seen [HPF] 0-4 [facility] Basophils Auto (Bld) [#/Vol] Ordered By: Dustin Dorsey on 06-03-2023 Basophils (Bld) [#/Vol] 0.0 10*3/uL 0.0-0.2 [facility] Basophils/100 WBC Auto (Bld) Ordered By: Dustin Dorsey on 06-03-2023 Basophils/100 WBC (Bld) 0.6 % . [facility] Bilirubin Test strip Ql (U)O rdered By: Dustin Dorsey on 06-03-2023 Bilirubin Ql (U) Negative Negative [facility] Bilirubin.direct [Mass/volum e] in Serum or PlasmaOrdered By: Dustin Dorsey on 06-03-2023 Bilirubin.direct [Mass/Vol] 0.00 mg/dL 0.03-0.18 [facility] Bilirubin.total [Mass/volume ] in Serum or PlasmaOrdered By: Dustin Dorsey on 06-03-2023 Bilirubin [Mass/Vol] 0.2 mg/dL 0.3-1.0 [facility] COVID CepheidOrdered By: Madi Dorsey on 06-03-2023 SARS-CoV-2 (COVID-19) RNA EMI+probe Ql (Unsp spec) Negative Negative [facility] SARS-CoV-2 (COVID-19) RNA EMI+probe Ql (Unsp spec) [facility] Calcium [Mass/volume] in Ser um or PlasmaOrdered By: Dustin Dorsey on 06-03-2023 Calcium [Mass/Vol] 8.9 mg/dL 8.6-10.3 [facility] Carbon dioxide, total [Moles /volume] in Serum or PlasmaOrdered By: Dustin Dorsey on 06-03-2023 CO2 [Moles/Vol] 24.0 mmol/L 21.0-31.0 [facility] Chloride [Moles/volume] in S jett or PlasmaOrdered By: Dustin Dorsey on 06-03-2023 Chloride [Moles/Vol] 107 mmol/L 98-107 [facility] Color Auto (U)Ordered By: Charlene Dorsey on 06-03-2023 Color (U) Yellow Yellow [facility] Creatinine [Mass/volume] in Serum or PlasmaOrdered By: Dustin Dorsey on 06-03-2023 Creatinine [Mass/Vol] 0.63 mg/dL 0.60-1.20 [facility] Eosinophils Auto (Bld) [#/Vo l]Ordered By: Dustin Dorsey on 06-03-2023 Eosinophils (Bld) [#/Vol] 0.3 10*3/uL 0.0-0.45 [facility] Eosinophils/100 WBC Auto (Bl d)Ordered By: Dustin Dorsey on 06-03-2023 Eosinophils/100 WBC (Bld) 4.4 % . [facility] Erythrocyte distribution wid th Auto (RBC) [Ratio]Ordered By: Dustin Dorsey on 06-03-2023 Erythrocyte distribution width (RBC) [Ratio] 15.1 % 11.9-15.3 [facility] Globulin Calc (S) [Mass/Vol] Ordered By: Dustin Dorsey on 06-03-2023 Globulin (S) [Mass/Vol] 2.9 g/dL [facility] Glucose [Mass/volume] in Ser um or PlasmaOrdered By: Dustin Dorsey on 06-03-2023 Glucose [Mass/Vol] 113 mg/dL 70-100 [facility] Hematocrit Auto (Bld) [Volum e fraction]Ordered By: Dustin Dorsey on 06-03-2023 Hematocrit (Bld) [Volume fraction] 35.5 % 34.0-46.4 [facility] Hemoglobin [Mass/volume] in BloodOrdered By: Dustin Dorsey on 06-03-2023 Hemoglobin (Bld) [Mass/Vol] 12.1 g/dL 11.8-15.4 [facility] Ketones Auto test strip (U) [Mass/Vol]Ordered By: Dustin Dorsey on 06-03-2023 Ketones (U) [Mass/Vol] Negative Negative [facility] Leukocytes [#/volume] correc jacki for nucleated erythrocytes in Blood by Automated counOrdered By: Dustin Dorsey on 06-03-2023 WBC corrected for nucl RBC Auto (Bld) [#/Vol] 8.0 10*3/uL 3.8-11.6 [facility] Lipase [Enzymatic activity/v olume] in Serum or PlasmaOrdered By: Dustin Dorsey on 06-03-2023 Lipase [Catalytic activity/Vol] 78.0 U/L 11.0-82.0 [facility] Lymphocytes Auto (Bld) [#/Vo l]Ordered By: Dustin Dorsey on 06-03-2023 Lymphocytes (Bld) [#/Vol] 2.7 10*3/uL 1.00-4.8 [facility] Lymphocytes/100 WBC Auto (Bl d)Ordered By: Dustin Dorsey on 06-03-2023 Lymphocytes/100 WBC (Bld) 34.1 % . [facility] MCH Auto (RBC) [Entitic mass ]Ordered By: Dustin Dorsey on 06-03-2023 MCH (RBC) [Entitic mass] 29.3 pg 24.7-34.3 [facility] MCHC Auto (RBC) [Mass/Vol]Or dered By: Dustin Dorsey on 06-03-2023 MCHC (RBC) [Mass/Vol] 34.0 g/dL 32.0-35.0 [facility] MCV Auto (RBC) [Entitic vol] Ordered By: Dustin Dorsey on 06-03-2023 MCV (RBC) [Entitic vol] 86.3 fL 80-100 [facility] Monocyte distribution width [Entitic volume] in Blood by AutomatedOrdered By: Dustin Dorsey on 06-03-2023 Monocyte distribution width Auto (Bld) [Entitic vol] 19.27 % 0.00-20.00 [facility] Monocytes Auto (Bld) [#/Vol] Ordered By: Dustin Dorsey on 06-03-2023 Monocytes (Bld) [#/Vol] 0.5 10*3/uL 0.0-0.8 [facility] Monocytes/100 WBC Auto (Bld) Ordered By: Dustin Dorsey on 06-03-2023 Monocytes/100 WBC (Bld) 6.9 % . [facility] Neutrophils Auto (Bld) [#/Vo l]Ordered By: Dustin Dorsey on 06-03-2023 Neutrophils (Bld) [#/Vol] 4.3 10*3/uL 1.8-7.7 [facility] Neutrophils/100 WBC Auto (Bl d)Ordered By: Dustin Dorsey on 06-03-2023 Neutrophils/100 WBC (Bld) 54.0 % . [facility] Nitrite Test strip Ql (U)Ord ered By: Dustin Dorsey on 06-03-2023 Nitrite Ql (U) Negative Negative The [facility] No Panel InformationOrdered By: Dustin Dorsey on 06-03-2023 > 60.0 mL/Min [facility] 109.30 [facility] None seen [LPF] 0-8 [facility] Nucleated erythrocytes [Pres ence] in Blood by Automated countOrdered By: Dustin Dorsey on 06-03-2023 Nucleated RBC Auto Ql (Bld) 0.1 /100{WBC} 0-0.5 [facility] Platelet mean volume Auto (B ld) [Entitic vol]Ordered By: Dustin Dorsey on 06-03-2023 Platelet mean volume (Bld) [Entitic vol] 8.0 fL 6.3-10.7 [facility] Platelets Auto (Bld) [#/Vol] Ordered By: Dustin Dorsey on 06-03-2023 Platelets (Bld) [#/Vol] 382 10*3/uL 150-450 [facility] Potassium [Moles/volume] in Serum or PlasmaOrdered By: Dustin Dorsey on 06-03-2023 Potassium [Moles/Vol] See comment 3.5-5.1 [facility] Protein Auto test strip (U) [Mass/Vol]Ordered By: Dustin Dorsey on 06-03-2023 Protein (U) [Mass/Vol] Negative Negative [facility] Protein [Mass/volume] in Ser um or PlasmaOrdered By: Dustin Dorsey on 06-03-2023 Protein [Mass/Vol] 7.0 g/dL 6.4-8.9 [facility] RBC Auto (Bld) [#/Vol]Ordere d By: Dustin Dorsey on 06-03-2023 RBC (Bld) [#/Vol] 4.11 10*6/uL 3.60-5.00 [facility] Serum or plasma albumin/glob ulin mass ratioOrdered By: Dustin Dorsey on 06-03-2023 Albumin/Globulin [Mass ratio] 1.4 {ratio} [facility] Serum or plasma anion gap de terminationOrdered By: Dustin Dorsey on 06-03-2023 Anion gap [Moles/Vol] TNP [facility] Serum or plasma non-glucuron idated bilirubin measurement (mass/volume)Ordered By: Dustin Dorsey on 06-03-2023 Bilirubin.indirect [Mass/Vol] 0.2 mg/dL [facility] Sodium [Moles/volume] in Ser um or PlasmaOrdered By: Dustin Dorsey on 06-03-2023 Sodium [Moles/Vol] 140 mmol/L 136-145 [facility] Specific gravity Auto test s trip (U) [Rel density]Ordered By: Dustin Dorsey on 06-03-2023 Specific gravity (U) [Rel density] 1.004 1.001-1.030 [facility] Squamous epithelial cells de tection in urine sediment by light microscopyOrdered By: Dustin Dorsey on 06-03-2023 Epithelial cells.squamous LM Ql (Urine sed) None seen [HPF] 0-2 [facility] Troponin I.cardiac [Mass/vol ume] in Serum or Plasma by Detection limit <= 0.01 ng/Ordered By: Dustin Dorsey on 06-03-2023 Troponin I.cardiac DL <= 0.01 ng/mL [Mass/Vol] 5.9 pg/mL 0.0-15.0 [facility] Urea nitrogen [Mass/volume] in Serum or PlasmaOrdered By: Dustin Dorsey on 06-03-2023 Urea nitrogen [Mass/Vol] 11 mg/dL 7-25 [facility] Urine bacteria detection by automated methodOrdered By: Dustin Dorsey on 06-03-2023 Bacteria Auto Ql (U) None seen None Seen [facility] Urine clarity by refractomet ry automatedOrdered By: Dustin Dorsey on 06-03-2023 Clarity Refractometry automated (U) Clear Clear [facility] Urine glucose measurement by automated test strip (mass/volume)Ordered By: Dustin Dorsey on 06-03-2023 Glucose Auto test strip (U) [Mass/Vol] Normal mg/dL Normal [facility] Urine hemoglobin detection b y automated test stripOrdered By: Dustin Dorsey on 06-03-2023 Hemoglobin Auto test strip Ql (U) Trace Negative [facility] Urine leukocyte esterase det ection by automated test stripOrdered By: Dustin Dorsey on 06-03-2023 Leukocyte esterase Auto test strip Ql (U) Negative Negative [facility] Urobilinogen Auto test strip (U) [Mass/Vol]Ordered By: Dustin Dorsey on 06-03-2023 Urobilinogen (U) [Mass/Vol] Normal mg/dL Normal [facility] WBC Auto (Bld) [#/Vol]Ordere d By: Dustin Dorsey on 06-03-2023 WBC (Bld) [#/Vol] 8.0 10*3/uL 3.8-11.6 [facility] pH Auto test strip (U)Ordere d By: Dustin Dorsey on 06-03-2023 pH (U) 6.0 [pH] 5.0-9.0 [facility] Alanine aminotransferase [En zymatic activity/volume] in Serum or PlasmaOrdered By: Dustin Dorsey on 05-11-2023 ALT [Catalytic activity/Vol] 19 U/L 7-52 [facility] Albumin [Mass/volume] in Ser um or Plasma by Bromocresol green (BCG) dye binding methoOrdered By: Dustin Dorsey on 05-11-2023 Albumin BCG dye [Mass/Vol] 4.3 g/dL 3.5-5.7 [facility] Alkaline phosphatase [Enzyma tic activity/volume] in Serum or PlasmaOrdered By: Dustin Dorsey on 05-11-2023 ALP [Catalytic activity/Vol] 78 U/L 34-104 [facility] Aspartate aminotransferase [ Enzymatic activity/volume] in Serum or PlasmaOrdered By: Dustin Dorsey on 05-11-2023 AST [Catalytic activity/Vol] 17 U/L 13-39 [facility] Automated epithelial cells c ount in urine sediment (number/area)Ordered By: AJAY TEMP on 05-11-2023 Epithelial cells Auto (Urine sed) [#/Area] 3-4 [HPF] 0-2 [facility] Automated erythrocytes count in urine sediment (number/area)Ordered By: PROVIDER TEMP on 05-11-2023 RBC Auto (Urine sed) [#/Area] 1-2 [HPF] 0-4 [facility] Automated leukocytes count i n urine sediment (number/area)Ordered By: PROVIDER TEMP on 05-11-2023 WBC Auto (Urine sed) [#/Area] 0-1 [HPF] 0-4 [facility] Automated urine hyaline cast s count (number/volume)Ordered By: PROVIDER TEMP on 05-11-2023 Hyaline casts Auto (U) [#/Vol] 0-1 [LPF] 0-1 [facility] Basophils Auto (Bld) [#/Vol] Ordered By: Dustin Dorsey on 05-11-2023 Basophils (Bld) [#/Vol] 0.0 10*3/uL 0.0-0.2 [facility] Basophils/100 WBC Auto (Bld) Ordered By: Dustin Dorsey on 05-11-2023 Basophils/100 WBC (Bld) 0.4 % . [facility] Bilirubin Test strip Ql (U)O rdered By: PROVIDER TEMP on 05-11-2023 Bilirubin Ql (U) Negative Negative [facility] Bilirubin.direct [Mass/volum e] in Serum or PlasmaOrdered By: Dustin Dorsey on 05-11-2023 Bilirubin.direct [Mass/Vol] 0.00 mg/dL 0.03-0.18 [facility] Bilirubin.total [Mass/volume ] in Serum or PlasmaOrdered By: Dustin Dorsey on 05-11-2023 Bilirubin [Mass/Vol] 0.2 mg/dL 0.3-1.0 [facility] Calcium [Mass/volume] in Ser um or PlasmaOrdered By: Dustin Dorsey on 05-11-2023 Calcium [Mass/Vol] 9.3 mg/dL 8.6-10.3 [facility] Carbon dioxide, total [Moles /volume] in Serum or PlasmaOrdered By: Dustin Dorsey on 05-11-2023 CO2 [Moles/Vol] 24.8 mmol/L 21.0-31.0 [facility] Chloride [Moles/volume] in S jett or PlasmaOrdered By: Dustin Dorsey on 05-11-2023 Chloride [Moles/Vol] 106 mmol/L 98-107 [facility] Color Auto (U)Ordered By: DC OVIDER TEMP on 05-11-2023 Color (U) Yellow Yellow [facility] Creatinine [Mass/volume] in Serum or PlasmaOrdered By: Dustin Dorsey on 05-11-2023 Creatinine [Mass/Vol] 0.68 mg/dL 0.60-1.20 [facility] Eosinophils Auto (Bld) [#/Vo l]Ordered By: Dustin Dorsey on 05-11-2023 Eosinophils (Bld) [#/Vol] 0.3 10*3/uL 0.0-0.45 [facility] Eosinophils/100 WBC Auto (Bl d)Ordered By: Dustin Dorsey on 05-11-2023 Eosinophils/100 WBC (Bld) 3.5 % . [facility] Erythrocyte distribution wid th Auto (RBC) [Ratio]Ordered By: Dustin Dorsey on 05-11-2023 Erythrocyte distribution width (RBC) [Ratio] 14.9 % 11.9-15.3 [facility] Globulin Calc (S) [Mass/Vol] Ordered By: Dustin Dorsey on 05-11-2023 Globulin (S) [Mass/Vol] 3.1 g/dL [facility] Glucose [Mass/volume] in Ser um or PlasmaOrdered By: Dustin Dorsey on 05-11-2023 Glucose [Mass/Vol] 105 mg/dL 70-100 [facility] Hematocrit Auto (Bld) [Volum e fraction]Ordered By: Dustin Dorsey on 05-11-2023 Hematocrit (Bld) [Volume fraction] 35.8 % 34.0-46.4 [facility] Hemoglobin [Mass/volume] in BloodOrdered By: Dustin Dorsey on 05-11-2023 Hemoglobin (Bld) [Mass/Vol] 12.3 g/dL 11.8-15.4 [facility] Ketones Auto test strip (U) [Mass/Vol]Ordered By: AJAY COPPOLA on 05-11-2023 Ketones (U) [Mass/Vol] Negative Negative [facility] Leukocytes [#/volume] correc jacki for nucleated erythrocytes in Blood by Automated counOrdered By: Dustin Dorsey on 05-11-2023 WBC corrected for nucl RBC Auto (Bld) [#/Vol] 7.6 10*3/uL 3.8-11.6 [facility] Lipase [Enzymatic activity/v olume] in Serum or PlasmaOrdered By: Dustin Dorsey on 05-11-2023 Lipase [Catalytic activity/Vol] 82.0 U/L 11.0-82.0 [facility] Lymphocytes Auto (Bld) [#/Vo l]Ordered By: Dustin Dorsey on 05-11-2023 Lymphocytes (Bld) [#/Vol] 2.8 10*3/uL 1.00-4.8 [facility] Lymphocytes/100 WBC Auto (Bl d)Ordered By: Dustin Dorsey on 05-11-2023 Lymphocytes/100 WBC (Bld) 36.2 % . [facility] MCH Auto (RBC) [Entitic mass ]Ordered By: Dustin Dorsey on 05-11-2023 MCH (RBC) [Entitic mass] 29.5 pg 24.7-34.3 [facility] MCHC Auto (RBC) [Mass/Vol]Or dered By: Dustin Dorsey on 05-11-2023 MCHC (RBC) [Mass/Vol] 34.4 g/dL 32.0-35.0 [facility] MCV Auto (RBC) [Entitic vol] Ordered By: Dustin Dorsey on 05-11-2023 MCV (RBC) [Entitic vol] 85.7 fL 80-100 [facility] Monocyte distribution width [Entitic volume] in Blood by AutomatedOrdered By: Dustin Dorsey on 05-11-2023 Monocyte distribution width Auto (Bld) [Entitic vol] 22.12 % 0.00-20.00 [facility] Monocytes Auto (Bld) [#/Vol] Ordered By: Dustin Dorsey on 05-11-2023 Monocytes (Bld) [#/Vol] 0.5 10*3/uL 0.0-0.8 [facility] Monocytes/100 WBC Auto (Bld) Ordered By: Dustin Dorsey on 05-11-2023 Monocytes/100 WBC (Bld) 6.3 % . [facility] Neutrophils Auto (Bld) [#/Vo l]Ordered By: Dustin Dorsey on 05-11-2023 Neutrophils (Bld) [#/Vol] 4.1 10*3/uL 1.8-7.7 [facility] Neutrophils/100 WBC Auto (Bl d)Ordered By: Dustin Dorsey on 05-11-2023 Neutrophils/100 WBC (Bld) 53.6 % . [facility] Nitrite Test strip Ql (U)Ord ered By: PROVIDER TEMP on 05-11-2023 Nitrite Ql (U) Negative Negative [facility] No Panel InformationOrdered By: Dustin Dorsey on 05-11-2023 > 60.0 mL/Min [facility] 104.13 [facility] Nucleated erythrocytes [Pres ence] in Blood by Automated countOrdered By: Dustin Dorsey on 05-11-2023 Nucleated RBC Auto Ql (Bld) 0.1 /100{WBC} 0-0.5 [facility] Platelet mean volume Auto (B ld) [Entitic vol]Ordered By: Dustin Dorsey on 05-11-2023 Platelet mean volume (Bld) [Entitic vol] 8.1 fL 6.3-10.7 [facility] Platelets Auto (Bld) [#/Vol] Ordered By: Dustin Dorsey on 05-11-2023 Platelets (Bld) [#/Vol] 435 10*3/uL 150-450 [facility] Potassium [Moles/volume] in Serum or PlasmaOrdered By: Dustin Dorsey on 05-11-2023 Potassium [Moles/Vol] 3.8 mmol/L 3.5-5.1 [facility] Protein Auto test strip (U) [Mass/Vol]Ordered By: PROVIDER TEMP on 05-11-2023 Protein (U) [Mass/Vol] Negative Negative [facility] Protein [Mass/volume] in Ser um or PlasmaOrdered By: Dustin Dorsey on 05-11-2023 Protein [Mass/Vol] 7.4 g/dL 6.4-8.9 [facility] RBC Auto (Bld) [#/Vol]Ordere d By: Dustin Dorsey on 05-11-2023 RBC (Bld) [#/Vol] 4.18 10*6/uL 3.60-5.00 [facility] Serum or plasma albumin/glob ulin mass ratioOrdered By: Dustin Dorsey on 05-11-2023 Albumin/Globulin [Mass ratio] 1.4 {ratio} [facility] Serum or plasma anion gap de terminationOrdered By: Dustin Dorsey on 05-11-2023 Anion gap [Moles/Vol] 13.0 mmol/L 6.0-15.0 [facility] Serum or plasma non-glucuron idated bilirubin measurement (mass/volume)Ordered By: Dustin Dorsey on 05-11-2023 Bilirubin.indirect [Mass/Vol] 0.2 mg/dL [facility] Sodium [Moles/volume] in Ser um or PlasmaOrdered By: Dustin Dorsey on 05-11-2023 Sodium [Moles/Vol] 140 mmol/L 136-145 [facility] Specific gravity Auto test s trip (U) [Rel density]Ordered By: AJAY COPPOLA on 05-11-2023 Specific gravity (U) [Rel density] 1.005 1.001-1.030 [facility] Urea nitrogen [Mass/volume] in Serum or PlasmaOrdered By: Dustin Dorsey on 05-11-2023 Urea nitrogen [Mass/Vol] 11 mg/dL 7-25 [facility] Urine bacteria detection by automated methodOrdered By: AJAY COPPOLA on 05-11-2023 Bacteria Auto Ql (U) None seen None Seen [facility] Urine clarity by refractomet ry automatedOrdered By: AJAY TEMGarth on 05-11-2023 Clarity Refractometry automated (U) Clear Clear [facility] Urine glucose measurement by automated test strip (mass/volume)Ordered By: AJAY COPPOLA on 05-11-2023 Glucose Auto test strip (U) [Mass/Vol] Normal mg/dL Normal [facility] Urine hemoglobin detection b y automated test stripOrdered By: PROVIDER TEMP on 05-11-2023 Hemoglobin Auto test strip Ql (U) Trace Negative [facility] Urine leukocyte esterase det ection by automated test stripOrdered By: PROVIDER TEMP on 05-11-2023 Leukocyte esterase Auto test strip Ql (U) Negative Negative [facility] Urobilinogen Auto test strip (U) [Mass/Vol]Ordered By: PROVIDER TEMP on 05-11-2023 Urobilinogen (U) [Mass/Vol] Normal mg/dL Normal [facility] WBC Auto (Bld) [#/Vol]Ordere d By: Dustin Dorsey on 05-11-2023 WBC (Bld) [#/Vol] 7.6 10*3/uL 3.8-11.6 [facility] pH Auto test strip (U)Ordere d By: PROVIDER TEMP on 05-11-2023 pH (U) 6.0 [pH] 5.0-9.0 [facility] Consent for Treatmenton 04-01 Consent for Treatment [id number] 0TIFF Normal [facility] Discharge Instructionson Discharge Instructions [id number] Normal [facility] ED Clinical Summaryon 2023 ED Clinical Summary [place] [id number] ED Clinical Summary Person Information Name: GIOVANNA STREETER [place] Age: 47 Years : 1975 Sex: Female Language: Comoran PCP: REBECCA NAVAS CNP Marital Status: Visit Id: Visit Reason: Throat pain - Adult; Cough; Ear pain; EAR PAIN Speciality: Acuity: 4 Enc Type: Emergency Med Service: Emergency Arrival: 04/15/2023 02:05:36 Discharge: 04/15/2023 02:58:52 LOS: 000 00:53 Checkin: 04/15/2023 02:05:36 Checkout: 04/15/2023 02:58:52 Dispo Type: Home (Routine DC) EVENTS: Event Name Event Status Request Date/Time Start Date/Time Complete Date/Time Arrive Complete 04/15/2023 02:05:36 04/15/2023 02:05:36 04/15/2023 02:05:36 Document Home Meds Request 04/15/2023 02:05:36 Triage Complete 04/15/2023 02:05:36 04/15/2023 02:19:19 04/15/2023 02:19:19 Dr Exam Complete 04/15/2023 02:09:43 04/15/2023 02:09:43 04/15/2023 02:09:43 Registration Complete 04/15/2023 02:09:43 04/15/2023 02:16:30 04/15/2023 02:16:30 Reg Complete Request 04/15/2023 02:16:30 Reg Bed Request Complete 04/15/2023 02:16:30 04/15/2023 02:16:30 04/15/2023 02:16:30 Bed Assign Complete 04/15/2023 02:17:20 04/15/2023 02:17:20 04/15/2023 02:17:20 RN Exam Complete 04/15/2023 02:17:20 04/15/2023 02:57:23 04/15/2023 02:57:23 Meds Admin Complete 04/15/2023 02:33:40 04/15/2023 02:53:08 Discharge Complete 04/15/2023 02:35:47 04/15/2023 02:58:59 04/15/2023 02:58:59 Transfer Complete 04/15/2023 02:58:59 04/15/2023 02:58:59 04/15/2023 02:58:59 AD[address]ESS: [address] [facility] [id number] [facility] DOC NOTES: MEDICAL INFORMATION: Prescriptions Given: Medications to Continue Taking That Have Changed [id number], [address] [place], [place] [id number], [phone] START: azithromycin (azithromycin 250 mg Tab) 250 Milligram By Mouth As Directed. Refills: 0. START: brompheniramine/dextro methorphan/PSE (Bromfed DM oral syrup) 5 Milliliter By Mouth 4 times a day as needed for cough and congestion. Refills: 0. START: naproxen (Naprosyn 500 mg Tab) 1 Tablets By Mouth 2 times a day as needed for pain. Refills: 0. Other Medications START: azithromycin (Zithromax) 250 Milligram By Mouth. START: brompheniramine/dextro methorphan/PSE (Bromfed DM oral syrup) 5 Milliliter By Mouth 4 times a day as needed for cough and congestion. Refills: 0. START: naproxen (Naprosyn 500 mg Tab) 1 Tablets By Mouth 2 times a day as needed for pain. Refills: 0. START: naproxen (Naprosyn 500 mg Tab) 1 Tablets By Mouth 2 times a day as needed for pain. Refills: 0. START: naproxen (naproxen 500 mg oral enteric coated tablet) 1 Tablets By Mouth 2 times a day as needed Pain. Refills: 0. Medications to Continue with No Changes Other Medications acetaminophen-hydrocod one ([place] 325 mg-5 mg oral tablet) 1 Tablets By Mouth every 4 hours as needed for pain. Refills: 0. APAP/butalbital/caffei ne (APAP/butalbital/caffe ine 325 mg-50 mg-40 mg Tab) 2 Tablets By Mouth every 6 hours as needed for headache. Refills: 0. atorvastatin (atorvastatin 20 mg Tab) 1 Tablets By Mouth every day. cyclobenzaprine (cyclobenzaprine 10 mg Tab) 1 Tablets By Mouth 3 times a day as needed Muscle pain. Refills: 0. lisinopril 20 Milligram By Mouth every day. omeprazole (omeprazole 20 mg Cap-DR) 1 Capsules By Mouth every day. ondansetron (Zofran ODT 4 mg Tab-Dis) 1 Tablets By Mouth every 8 hours as needed Nausea/Vomiting. Refills: 0. ondansetron (Zofran ODT 4 mg Tab-Dis) 1 Tablets By Mouth every 8 hours. Refills: 0. predniSONE (predniSONE 20 mg Tab) 1 Tablets By Mouth As Directed. take two tabs daily for 5 days, then one tab daily for 5 days.. Refills: 0. PATIENT EDUCATION INFORMATION: Instructions: Pharyngitis, [id number]; Otitis Media, Adult, [id number]-[id number] Follow up: With: Address: When: REBECCA NAVAS [address] [place] [address] In 3 days 04/18/2023 Comments: Take the antibiotics as prescribed until you have completed the course. You can use the pain medication, cough medication as prescribed as needed for pain and cough. Please follow-up with your primary care doctor in the next 2 to 3 days for further evaluation management. Please return to the ED for any new or worsening symptoms. DIAGNOSIS: Otitis media; Pharyngitis Normal [facility] ED Note-Physicianon 04-15-19 ED Note-Physician Basic Information Time Seen: Marshall Henriquez DO 04/15/2023 02:09 Chief Complaint complains of right ear pain for a couple days. denies fever. cough and throat pain for a couple days History of Present Illness Patient is a 47-year-old female with past medical history of hypertension presenting to the ED for evaluation of right ear pain, cough and sore throat. Patient states symptoms ongoing for the last 3 to 4 days, progressively worsened. Patient states increasing pain in the right ear. Patient denies any fevers, chills, nausea or vomiting. Denies any chest pain or shortness of breath. Review of Systems A 10 point review of systems is negative except as noted above. Medical and Surgical History: Reviewed and noted Social history: Lives at home Tobacco: Denies Physical Exam Vitals & Measurements T: 36.8 ?C(Oral) HR: 86(Peripheral) RR: 16 BP: 135/84 SpO2: 98% HT: 160 cm WT: 93.6 kg BMI: 36.56 General: Well developed, non toxic appearing, no acute distress HEENT: Head atraumatic, Mucosa moist, hearing grossly normal effusion and bulging TM on the right, mild pharyngeal erythema, left TM without signs of infection Neck: No JVD, tracheal deviation Cardiac: Regular rate, rhythm, no murmurs, or gallops, 2+ radial pulses Respiratory: Lungs clear to auscultation B/L, normal respiratory effort Abdomen: Soft non tender, no rebound or guarding, no peritoneal signs Extremities: No edema noted in the LE B/L, no tenderness to palpation Neurologic: Alert and oriented, speech clear Skin: No rashes or lesions Psych: Appropriate mood and behavior Medical Decision Making MEDICAL DECISION MAKING Number and Complexity of Problems Differential Diagnosis: [] [facility] Data External documents reviewed: [] My EKG interpretation: [] My CT interpretation: [] My X-ray interpretation: [] My Ultrasound interpretation: [] Decision rules/scores evaluated: [] Discussed with: [] Treatment and Disposition ED Course: Patient is a 47-year-old female presenting to the ED for evaluation of sore throat, right ear pain, cough. Patient is nontoxic and on arrival, no acute distress. Does have evidence of otitis media on examination. Due to patient's allergies patient started on azithromycin for treatment of the otitis media. She is given Bromfed in addition to Decadron in the ED for her symptoms. Patient is discharged home she is follow-up with her primary care doctor. She is return to the ED for any new or worsening symptoms. Shared decision making: [] Code status: [] Assessment/Plan Otitis media (H66.90: Otitis media, unspecified, unspecified ear) Pharyngitis (J02.9: Acute pharyngitis, unspecified) Orders: azithromycin, 500 mg = 2 tab(s), Tab, Oral, Once, Stop date 04/15/23 2:33:00 EST, STAT, Start date 04/15/23 2:33:00 EST, 04/15/23 2:33:00 EST azithromycin, 250 mg, Oral, As Directed, # 6 tab(s), Refills(s) 0, Pharmacy: [id number], 160, cm, 04/15/23 2:19:00 EST, Height/Length Dosing, 93.6, kg, 04/15/23 2:19:00 EST, Weight Dosing brompheniramine/dextro methorphan/PSE, 5 mL, Oral, QID for cough and congestion, 200 mL, Refill(s) 0, [facility] #[id number], 160, cm, 04/15/23 2:19:00 EST, Height/Length Dosing, 93.6, kg, 04/15/23 2:19:00 EST, Weight Dosing dexamethasone, 10 mg = 2.5 tab(s), Tab, Oral, Once, Stop date 04/15/23 2:33:00 EST, STAT, Start date 04/15/23 2:33:00 EST, 04/15/23 2:33:00 EST meclizine, 25 mg = 2 tab(s), Tab, Oral, Once, Stop date 04/15/23 2:33:00 EST, STAT, Start date 04/15/23 2:33:00 EST, 04/15/23 2:33:00 EST naproxen, 500 mg = 1 tab(s), Oral, BID, PRN for pain, # 20 tab(s), Refills(s) 0, Pharmacy: [facility] #[id number], 160, cm, 04/15/23 2:19:00 EST, Height/Length Dosing, 93.6, kg, 04/15/23 2:19:00 EST, Weight Dosing tetracaine ophthalmic, 2 drop(s), Soln-Opth, Ear-Right, Once, Stop date 04/15/23 2:32:00 EST, STAT, Start date 04/15/23 2:32:00 EST Medications Administered Given azithromycin 250 mg Tab, 500 mg, Oral dexamethasone 4 mg Tab, 10 mg, Oral meclizine 12.5 mg Tab, 25 mg, Oral tetracaine Opth 0.5% Ginette, 2 drop(s), Ear-Right Disposition Plan Discharge Prescription List Prescriptions azithromycin 250 mg Tab, 250 mg, Oral, As Directed Bromfed DM oral syrup, 5 mL, Oral, QID, PRN Naprosyn 500 mg Tab, 500 mg= 1 tab(s), Oral, BID, PRN Follow-up With When Contact Information REBECCA NAVAS In 3 days 04/18/2023 EST [address] [place] [address]- Additional Instructions: Take the antibiotics as prescribed until you have completed the course. You can use the pain medication, cough medication as prescribed as needed for pain and cough. Please follow-up with your primary care doctor in the next 2 to 3 days for further evaluation management. Please return to the ED for any new or worsening symptoms. Patient Education Pharyngitis, Tajs-[id number]-Lvmr Otitis Media, Adult, Dedp-dw-Jqws Problem List/Past Medical History Ongoing Asymptomatic microscopic hematuria BMI 33.0- (more content not included)... Normal [facility] Comment on above: Result Comment: Elec tronically Signed By: Marshall Henriquez DO.br\Date and Time Signed: 04/15/23 04:06 EST ED Patient Education Noteon 04-15-2023 ED Patient Education Note ENT Otitis Media, Adult Otitis media is a condition in which the middle ear is red and swollen (inflamed) and full of fluid. The middle ear is the part of the ear that contains bones for hearing as well as air that helps send sounds to the brain. The condition usually goes away on its own. What are the causes? This condition is caused by a blockage in the eustachian tube. This tube connects the middle ear to the back of the nose. It normally allows air into the middle ear. The blockage is caused by fluid or swelling. Problems that can cause blockage include: ? A cold or infection that affects the nose, mouth, or throat. ? Allergies. ? An irritant, such as tobacco smoke. ? Adenoids that have become large. The adenoids are soft tissue located in the back of the throat, behind the nose and the roof of the mouth. ? Growth or swelling in the upper part of the throat, just behind the nose (nasopharynx). ? Damage to the ear caused by a change in pressure. This is called barotrauma. What increases the risk? You are more likely to develop this condition if you: ? Smoke or are exposed to tobacco smoke. ? Have an opening in the roof of your mouth (cleft palate). ? Have acid reflux. ? Have problems in your body's defense system (immune system). What are the signs or symptoms? Symptoms of this condition include: ? Ear pain. ? Fever. ? Problems with hearing. ? Being tired. ? Fluid leaking from the ear. ? Ringing in the ear. How is this treated? This condition can go away on its own within 3?5 days. But if the condition is caused by germs (bacteria) and does not go away on its own, or if it keeps coming back, your doctor may: ? Give you antibiotic medicines. ? Give you medicines for pain. Follow these instructions at home: ? Take xfct-xea-cnmrsnj and prescription medicines only as told by your doctor. ? If you were prescribed an antibiotic medicine, take it as told by your doctor. Do not stop taking it even if you start to feel better. ? Keep all follow-up visits. Contact a doctor if: ? You have bleeding from your nose. ? There is a lump on your neck. ? You are not feeling better in 5 days. ? You feel worse instead of better. Get help right away if: ? You have pain that is not helped with medicine. ? You have swelling, redness, or pain around your ear. ? You get a stiff neck. ? You cannot move part of your face (paralysis). ? You notice that the bone behind your ear hurts when you touch it. ? You get a very bad headache. Summary ? Otitis media means that the middle ear is red, swollen, and full of fluid. ? This condition usually goes away on its own. ? If the problem does not go away, treatment may be needed. You may be given medicines to treat the infection or to treat your pain. ? If you were prescribed an antibiotic medicine, take it as told by your doctor. Do not stop taking it even if you start to feel better. ? Keep all follow-up visits. This information is not intended to replace advice given to you by your health care provider. Make sure you discuss any questions you have with your health care provider. Document Revised: 06/26/2021 Document Reviewed: 06/26/2021 [employer] Patient Education ? 2022 [employer]. Infectious Disease Pharyngitis Pharyngitis is a sore throat (pharynx). This is when there is redness, pain, and swelling in your throat. Most of the time, this condition gets better on its own. In some cases, you may need medicine. What are the causes? ? An infection from a virus. ? An infection from bacteria. ? Allergies. What increases the risk? ? Being 5?24 years old. ? Being in crowded environments. These include: ? Daycares. ? Schools. ? Dormitories. ? Living in a place with cold temperatures outside. ? Having a weakened disease-fighting (immune) system. What are the signs or symptoms? Symptoms may vary depending on the cause. Common symptoms include: ? Sore throat. ? Tiredness (fatigue). ? Low-grade fever. ? Stuffy nose. ? Cough. ? Headache. Other symptoms may include: ? Glands in the neck (lymph nodes) that are swollen. ? Skin rashes. ? Film on the throat or tonsils. This can be caused by an infection from bacteria. ? Vomiting. ? Red, itchy eyes. ? Loss of appetite. ? Joint pain and muscle aches. ? Tonsils that are temporarily bigger than usual (enlarged). How is this treated? Many times, treatment is not needed. This condition usually gets better in 3?4 days without treatment. If the infection is caused by a bacteria, you may be need to take antibiotics. Follow these instructions at home: Medicines ? Take xvse-xni-wkpgdxu and prescription medicines only as told by your doctor. ? If you were prescribed an antibiotic medicine, take it as told by your doctor. Do not stop taking the antibiotic even if you start to feel better. ? Use throat lozenges or (more content not included)... Normal [facility] ED Patient Summaryon 024 ED Patient Summary [place] [id number] Patient Discharge Instructions Person Information Name: GIOVANNA STREETER Age: 47 Years Arrival Date: 04/15/2023 02:05:36 Discharge Diagnosis: Otitis media; Pharyngitis Primary Care Physician: REBECCA NAVAS CNP Provider Information Primary Provider: Marshall Henriquez DO Advanced Cigarette Lighter Repairer:None The exam and treatment you received in the Emergency Department were for an urgent problem and are not intended as complete care. It is important that you follow up with a doctor, nurse practitioner, or physician?s medical assistant float for ongoing care. If your symptoms become worse or you do not improve as expected and you are unable to reach your usual health care provider, you should return to the Emergency Department. We are available 24 hours a day. GIOVANNA STREETER has been given the following list of patient education materials, prescriptions and follow-up instructions: Follow-up Instructions: With: Address: When: REBECCA NAVAS [address] [place] [address] In 3 days 04/18/2023 Comments: Take the antibiotics as prescribed until you have completed the course. You can use the pain medication, cough medication as prescribed as needed for pain and cough. Please follow-up with your primary care doctor in the next 2 to 3 days for further evaluation management. Please return to the ED for any new or worsening symptoms. In the event that this physician does not participate in your insurance network, please consult with your insurance company to find a nearby participating provider. Patient Education Materials: Pharyngitis, Iicw-xv-Dyqa; Otitis Media, Adult, Oylw-ax-Tvfg A MESSAGE TO ALL PATIENTS REGARDING OPIOIDS PRESCRIPTION OPIOIDS: WHAT YOU NEED TO KNOW Prescription opioids can be used to help relieve myoddkbb-zf-tfyyaw pain and are often prescribed following a surgery or injury, or for certain health conditions. These medications can be an important part of the treatment but also come with serious risks. It is important to work with your healthcare provider to make sure you are getting the safest, most effective care. WHAT ARE THE RISKS AND SIDE EFFECTS OF OPIOID USE? Prescription opioids carry serious risks of addiction and overdose, especially with prolonged use. An opioid overdose, often marked by slowed breathing, can cause sudden . The use of prescription opioids can have a number of side effects as well, even when taken as directed: ? Tolerance?meaning you might need to take more of the medication for the same pain relief ? Physical dependence?meaning you have symptoms of withdrawal when a medication is stopped ? Increased sensitivity to pain ? Constipation ? Nausea, vomiting, and dry mouth ? Sleepiness and dizziness ? Confusion ? Depression ? Low levels of testosterone that can result in lower sex drive, energy, and strength ? Itching and sweating RISKS ARE GREATER WITH: ? History of drug misuse, substance use disorder, or overdose ? Mental health conditions (such as depression or anxiety) ? Sleep apnea ? Older age (65 years and older) ? Avoid alcohol while taking prescription opioids. Also, unless specifically advised by your health care provider, medications to avoid include: ? Benzodiazepines (such as Xanax or Valium) ? Muscle relaxants (such as Soma or Flexeril) ? Hypnotics (such as Ambien or Lunesta) ? Other prescription opioids KNOW YOUR OPTIONS Talk to your health care provider about ways to manage your pain that don?t involve prescription opioids. Some of these options may actually work better and have fewer risks and side effects. Options may include: ? Pain relievers such as acetaminophen, ibuprofen, and naproxen ? Some medication that are also used for depression or seizures ? Physical therapy and exercise ? Cognitive behavioral therapy, a psychological, goal-directed approach, in which patients learn how to modify physical, behavioral, and emotional triggers of pain and stress. IF YOU ARE PRESCRIBED OPIOIDS FOR PAIN: ? Never take opioids in greater amounts or more often than prescribed. ? Follow up with your primary health care provider. o Work together to create a plan on how to manage your pain. o Talk about ways to help manage your pain that don?t involve prescription opioids. o Talk about any and all concerns and side effects. ? Help prevent misuse and abuse o Never sell or share prescription opioids. o Never use another person?s prescription opioids. ? Store prescription opioids in a secure place and out of reach of others (this may include visitors, children, friends, and family). ? Safely dispose of unused prescription opioids: Find your community drug take-back program or your pharmacy mail-back program, or flush them down the toilet, following guidance from the (more content not included)... Normal [facility] Alanine aminotransferase [En zymatic activity/volume] in Serum or PlasmaOrdered By: Drew Ba on 04-06-2023 ALT [Catalytic activity/Vol] 20 U/L 7-52 [facility] Albumin [Mass/volume] in Ser um or Plasma by Bromocresol green (BCG) dye binding methoOrdered By: Drew Ba on 04-06-2023 Albumin BCG dye [Mass/Vol] 4.4 g/dL 3.5-5.7 [facility] Alkaline phosphatase [Enzyma tic activity/volume] in Serum or PlasmaOrdered By: Drew Ba on 04-06-2023 ALP [Catalytic activity/Vol] 81 U/L 34-104 [facility] Aspartate aminotransferase [ Enzymatic activity/volume] in Serum or PlasmaOrdered By: Drew Ba on 04-06-2023 AST [Catalytic activity/Vol] 18 U/L 13-39 [facility] Automated erythrocytes count in urine sediment (number/area)Ordered By: Drew Ba on 04-06-2023 RBC Auto (Urine sed) [#/Area] Innumerable [HPF] 0-4 [facility] Automated leukocytes count i n urine sediment (number/area)Ordered By: Drew Ba on 04-06-2023 WBC Auto (Urine sed) [#/Area] None seen [HPF] 0-4 [facility] Basophils Auto (Bld) [#/Vol] Ordered By: Drew Ba on 04-06-2023 Basophils (Bld) [#/Vol] 0.1 10*3/uL 0.0-0.2 [facility] Basophils/100 WBC Auto (Bld) Ordered By: Drew Ba on 04-06-2023 Basophils/100 WBC (Bld) 0.9 % . [facility] Bilirubin Test strip Ql (U)O rdered By: Drew Ba on 04-06-2023 Bilirubin Ql (U) Negative Negative [facility] Bilirubin.direct [Mass/volum e] in Serum or PlasmaOrdered By: Drew Ba on 04-06-2023 Bilirubin.direct [Mass/Vol] 0.00 mg/dL 0.03-0.18 [facility] Bilirubin.total [Mass/volume ] in Serum or PlasmaOrdered By: Drew Ba on 04-06-2023 Bilirubin [Mass/Vol] 0.3 mg/dL 0.3-1.0 [facility] Calcium [Mass/volume] in Ser um or PlasmaOrdered By: Drew Ba on 04-06-2023 Calcium [Mass/Vol] 9.1 mg/dL 8.6-10.3 [facility] Carbon dioxide, total [Moles /volume] in Serum or PlasmaOrdered By: Drew Ba on 04-06-2023 CO2 [Moles/Vol] 24.7 mmol/L 21.0-31.0 [facility] Chloride [Moles/volume] in S jett or PlasmaOrdered By: Drew Ba on 04-06-2023 Chloride [Moles/Vol] 107 mmol/L 98-107 [facility] Color Auto (U)Ordered By: Miguel Angel Ba on 04-06-2023 Color (U) Yellow Yellow [facility] Creatinine [Mass/volume] in Serum or PlasmaOrdered By: Drew Ba on 04-06-2023 Creatinine [Mass/Vol] 0.60 mg/dL 0.60-1.20 [facility] Eosinophils Auto (Bld) [#/Vo l]Ordered By: Drew Ba on 04-06-2023 Eosinophils (Bld) [#/Vol] 0.2 10*3/uL 0.0-0.45 [facility] Eosinophils/100 WBC Auto (Bl d)Ordered By: Drew Ba on 04-06-2023 Eosinophils/100 WBC (Bld) 2.6 % . [facility] Erythrocyte distribution wid th Auto (RBC) [Ratio]Ordered By: Drew Ba on 04-06-2023 Erythrocyte distribution width (RBC) [Ratio] 14.6 % 11.9-15.3 [facility] Globulin Calc (S) [Mass/Vol] Ordered By: Drew Ba on 04-06-2023 Globulin (S) [Mass/Vol] 3.1 g/dL [facility] Glucose [Mass/volume] in Ser um or PlasmaOrdered By: Drew Ba on 04-06-2023 Glucose [Mass/Vol] 110 mg/dL 70-[facility] Hematocrit Auto (Bld) [Volum e fraction]Ordered By: Drew Ba on 04-06-2023 Hematocrit (Bld) [Volume fraction] 38.3 % 34.0-46.4 [facility] Hemoglobin [Mass/volume] in BloodOrdered By: Drew Ba on 04-06-2023 Hemoglobin (Bld) [Mass/Vol] 12.8 g/dL 11.8-15.4 [facility] INR in Platelet poor plasma by Coagulation assayOrdered By: Drew Ba on 04-06-2023 INR Coag (PPP) [Relative time] 1.0 {INR} [facility] Ketones Auto test strip (U) [Mass/Vol]Ordered By: Drew Ba on 04-06-2023 Ketones (U) [Mass/Vol] Negative Negative [facility] Leukocytes [#/volume] correc jacki for nucleated erythrocytes in Blood by Automated counOrdered By: Drew Ba on 04-06-2023 WBC corrected for nucl RBC Auto (Bld) [#/Vol] 6.4 10*3/uL 3.8-11.6 [facility] Lipase [Enzymatic activity/v olume] in Serum or PlasmaOrdered By: Drew Ba on 04-06-2023 Lipase [Catalytic activity/Vol] 81.0 U/L 11.0-82.0 [facility] Lymphocytes Auto (Bld) [#/Vo l]Ordered By: Drew Ba on 04-06-2023 Lymphocytes (Bld) [#/Vol] 1.8 10*3/uL 1.00-4.8 [facility] Lymphocytes/100 WBC Auto (Bl d)Ordered By: Drew Ba on 04-06-2023 Lymphocytes/100 WBC (Bld) 28.4 % . [facility] MCH Auto (RBC) [Entitic mass ]Ordered By: Drew Ba on 04-06-2023 MCH (RBC) [Entitic mass] 29.0 pg 24.7-34.3 [facility] MCHC Auto (RBC) [Mass/Vol]Or dered By: Drew Ba on 04-06-2023 MCHC (RBC) [Mass/Vol] 33.5 g/dL 32.0-35.0 [facility] MCV Auto (RBC) [Entitic vol] Ordered By: Drew Ba on 04-06-2023 MCV (RBC) [Entitic vol] 86.4 fL 80-100 [facility] Monocyte distribution width [Entitic volume] in Blood by AutomatedOrdered By: Drew Ba on 04-06-2023 Monocyte distribution width Auto (Bld) [Entitic vol] 20.18 % 0.00-20.00 [facility] Monocytes Auto (Bld) [#/Vol] Ordered By: Drew Ba on 04-06-2023 Monocytes (Bld) [#/Vol] 0.4 10*3/uL 0.0-0.8 [facility] Monocytes/100 WBC Auto (Bld) Ordered By: Drew Ba on 04-06-2023 Monocytes/100 WBC (Bld) 6.9 % . [facility] Neutrophils Auto (Bld) [#/Vo l]Ordered By: Drew Ba on 04-06-2023 Neutrophils (Bld) [#/Vol] 3.9 10*3/uL 1.8-7.7 [facility] Neutrophils/100 WBC Auto (Bl d)Ordered By: Drew Ba on 04-06-2023 Neutrophils/100 WBC (Bld) 61.2 % . [facility] Nitrite Test strip Ql (U)Ord ered By: Drew Ba on 04-06-2023 Nitrite Ql (U) Negative Negative [facility] No Panel InformationOrdered By: Drew Ba on 04-06-2023 > 60.0 mL/Min [facility] 126.16 [facility] None seen [LPF] 0-8 [facility] Nucleated erythrocytes [Pres ence] in Blood by Automated countOrdered By: Drew Ba on 04-06-2023 Nucleated RBC Auto Ql (Bld) 0.1 /100{WBC} 0-0.5 [facility] Platelet mean volume Auto (B ld) [Entitic vol]Ordered By: Drew Ba on 04-06-2023 Platelet mean volume (Bld) [Entitic vol] 7.8 fL 6.3-10.7 [facility] Platelets Auto (Bld) [#/Vol] Ordered By: Drew Ba on 04-06-2023 Platelets (Bld) [#/Vol] 374 10*3/uL 150-450 [facility] Potassium [Moles/volume] in Serum or PlasmaOrdered By: Drew Ba on 04-06-2023 Potassium [Moles/Vol] 3.9 mmol/L 3.5-5.1 [facility] Protein Auto test strip (U) [Mass/Vol]Ordered By: Drew Ba on 04-06-2023 Protein (U) [Mass/Vol] Negative Negative [facility] Protein [Mass/volume] in Ser um or PlasmaOrdered By: Drew Ba on 04-06-2023 Protein [Mass/Vol] 7.5 g/dL 6.4-8.9 [facility] Prothrombin time (PT)Ordered By: Drew Ba on 04-06-2023 PT Coag (PPP) [Time] 11.4 s 9.0-12.9 [facility] RBC Auto (Bld) [#/Vol]Ordere d By: Drew Ba on 04-06-2023 RBC (Bld) [#/Vol] 4.43 10*6/uL 3.60-5.00 [facility] Serum or plasma albumin/glob ulin mass ratioOrdered By: Drew Ba on 04-06-2023 Albumin/Globulin [Mass ratio] 1.4 {ratio} [facility] Serum or plasma anion gap de terminationOrdered By: Drew Ba on 04-06-2023 Anion gap [Moles/Vol] 11.2 mmol/L 6.0-15.0 [facility] Serum or plasma non-glucuron idated bilirubin measurement (mass/volume)Ordered By: Drew Ba on 04-06-2023 Bilirubin.indirect [Mass/Vol] 0.3 mg/dL [facility] Sodium [Moles/volume] in Ser um or PlasmaOrdered By: Drew Ba on 04-06-2023 Sodium [Moles/Vol] 139 mmol/L 136-145 [facility] Specific gravity Auto test s trip (U) [Rel density]Ordered By: Drew Ba on 04-06-2023 Specific gravity (U) [Rel density] 1.006 1.001-1.030 [facility] Squamous epithelial cells de tection in urine sediment by light microscopyOrdered By: Drew Ba on 04-06-2023 Epithelial cells.squamous LM Ql (Urine sed) None seen [HPF] 0-2 [facility] Urea nitrogen [Mass/volume] in Serum or PlasmaOrdered By: Drew Ba on 04-06-2023 Urea nitrogen [Mass/Vol] 8 mg/dL 7-25 [facility] Urine bacteria detection by automated methodOrdered By: Drew Ba on 04-06-2023 Bacteria Auto Ql (U) None seen None Seen [facility] Urine clarity by refractomet ry automatedOrdered By: Drew Ba on 04-06-2023 Clarity Refractometry automated (U) Clear Clear [facility] Urine glucose measurement by automated test strip (mass/volume)Ordered By: Drwe Ba on 04-06-2023 Glucose Auto test strip (U) [Mass/Vol] Normal mg/dL Normal [facility] Urine hemoglobin detection b y automated test stripOrdered By: Drew Ba on 04-06-2023 Hemoglobin Auto test strip Ql (U) 3+ Negative [facility] Urine leukocyte esterase det ection by automated test stripOrdered By: Drew Ba on 04-06-2023 Leukocyte esterase Auto test strip Ql (U) Negative Negative [facility] Urobilinogen Auto test strip (U) [Mass/Vol]Ordered By: Drew Ba on 04-06-2023 Urobilinogen (U) [Mass/Vol] Normal mg/dL Normal [facility] WBC Auto (Bld) [#/Vol]Ordere d By: Drew Ba on 04-06-2023 WBC (Bld) [#/Vol] 6.4 10*3/uL 3.8-11.6 [facility] pH Auto test strip (U)Ordere d By: Drew Ba on 04-06-2023 pH (U) 6.0 [pH] 5.0-9.0 [facility] Alanine aminotransferase [En zymatic activity/volume] in Serum or PlasmaOrdered By: John Cortes on 03-31-2023 ALT [Catalytic activity/Vol] 18 U/L 7-52 [facility] Albumin [Mass/volume] in Ser um or Plasma by Bromocresol green (BCG) dye binding methoOrdered By: John Cortes on 03-31-2023 Albumin BCG dye [Mass/Vol] 4.4 g/dL 3.5-5.7 [facility] Alkaline phosphatase [Enzyma tic activity/volume] in Serum or PlasmaOrdered By: John Cortes on 03-31-2023 ALP [Catalytic activity/Vol] 74 U/L 34-104 [facility] Aspartate aminotransferase [ Enzymatic activity/volume] in Serum or PlasmaOrdered By: John Cortes on 03-31-2023 AST [Catalytic activity/Vol] 18 U/L 13-39 [facility] Automated epithelial cells c ount in urine sediment (number/area)Ordered By: John Cortes on 03-31-2023 Epithelial cells Auto (Urine sed) [#/Area] 3-4 [HPF] 0-2 [facility] Automated erythrocytes count in urine sediment (number/area)Ordered By: John Cortes on 03-31-2023 RBC Auto (Urine sed) [#/Area] 1-2 [HPF] 0-4 [facility] Automated leukocytes count i n urine sediment (number/area)Ordered By: John Cortes on 03-31-2023 WBC Auto (Urine sed) [#/Area] 0-1 [HPF] 0-4 [facility] Automated urine hyaline cast s count (number/volume)Ordered By: John Cortes on 03-31-2023 Hyaline casts Auto (U) [#/Vol] None seen [LPF] 0-1 [facility] Basophils Auto (Bld) [#/Vol] Ordered By: John Cortes on 03-31-2023 Basophils (Bld) [#/Vol] 0.0 10*3/uL 0.0-0.2 [facility] Basophils/100 WBC Auto (Bld) Ordered By: John Cortes on 03-31-2023 Basophils/100 WBC (Bld) 0.6 % . [facility] Bilirubin Test strip Ql (U)O rdered By: John Cortes on 03-31-2023 Bilirubin Ql (U) Negative Negative [facility] Bilirubin.total [Mass/volume ] in Serum or PlasmaOrdered By: John Cortes on 03-31-2023 Bilirubin [Mass/Vol] 0.3 mg/dL 0.3-1.0 [facility] Calcium [Mass/volume] in Ser um or PlasmaOrdered By: John Cortes on 03-31-2023 Calcium [Mass/Vol] 9.3 mg/dL 8.6-10.3 [facility] Carbon dioxide, total [Moles /volume] in Serum or PlasmaOrdered By: John Cortes on 03-31-2023 CO2 [Moles/Vol] 22.5 mmol/L 21.0-31.0 [facility] Chloride [Moles/volume] in S jett or PlasmaOrdered By: John Cortes on 03-31-2023 Chloride [Moles/Vol] 109 mmol/L 98-107 [facility] Color Auto (U)Ordered By: Telly Cortes on 03-31-2023 Color (U) Yellow Yellow [facility] Creatinine [Mass/volume] in Serum or PlasmaOrdered By: John Cortes on 03-31-2023 Creatinine [Mass/Vol] 0.69 mg/dL 0.60-1.20 [facility] Eosinophils Auto (Bld) [#/Vo l]Ordered By: John Cortes on 03-31-2023 Eosinophils (Bld) [#/Vol] 0.2 10*3/uL 0.0-0.45 [facility] Eosinophils/100 WBC Auto (Bl d)Ordered By: John Cortes on 03-31-2023 Eosinophils/100 WBC (Bld) 2.2 % . [facility] Erythrocyte distribution wid th Auto (RBC) [Ratio]Ordered By: John Cortes on 03-31-2023 Erythrocyte distribution width (RBC) [Ratio] 15.1 % 11.9-15.3 [facility] Globulin Calc (S) [Mass/Vol] Ordered By: John Cortes on 03-31-2023 Globulin (S) [Mass/Vol] 3.2 g/dL [facility] Glucose [Mass/volume] in Ser um or PlasmaOrdered By: John Cortes on 03-31-2023 Glucose [Mass/Vol] 101 mg/dL 70-100 [facility] Hematocrit Auto (Bld) [Volum e fraction]Ordered By: John Cortes on 03-31-2023 Hematocrit (Bld) [Volume fraction] 36.7 % 34.0-46.4 [facility] Hemoglobin [Mass/volume] in BloodOrdered By: John Cortes on 03-31-2023 Hemoglobin (Bld) [Mass/Vol] 12.5 g/dL 11.8-15.4 [facility] Ketones Auto test strip (U) [Mass/Vol]Ordered By: John Cortes on 03-31-2023 Ketones (U) [Mass/Vol] Negative Negative [facility] Leukocytes [#/volume] correc jacki for nucleated erythrocytes in Blood by Automated counOrdered By: John Cortes on 03-31-2023 WBC corrected for nucl RBC Auto (Bld) [#/Vol] 8.5 10*3/uL 3.8-11.6 [facility] Lymphocytes Auto (Bld) [#/Vo l]Ordered By: John Cortes on 03-31-2023 Lymphocytes (Bld) [#/Vol] 2.3 10*3/uL 1.00-4.8 [facility] Lymphocytes/100 WBC Auto (Bl d)Ordered By: John Cortes on 03-31-2023 Lymphocytes/100 WBC (Bld) 27.1 % . [facility] MCH Auto (RBC) [Entitic mass ]Ordered By: John Cortes on 03-31-2023 MCH (RBC) [Entitic mass] 29.2 pg 24.7-34.3 [facility] MCHC Auto (RBC) [Mass/Vol]Or dered By: John Cortes on 03-31-2023 MCHC (RBC) [Mass/Vol] 34.2 g/dL 32.0-35.0 [facility] MCV Auto (RBC) [Entitic vol] Ordered By: John Cortes on 03-31-2023 MCV (RBC) [Entitic vol] 85.4 fL 80-100 [facility] Monocyte distribution width [Entitic volume] in Blood by AutomatedOrdered By: John Cortes on 03-31-2023 Monocyte distribution width Auto (Bld) [Entitic vol] 17.98 % 0.00-20.00 [facility] Monocytes Auto (Bld) [#/Vol] Ordered By: John Cortes on 03-31-2023 Monocytes (Bld) [#/Vol] 0.6 10*3/uL 0.0-0.8 [facility] Monocytes/100 WBC Auto (Bld) Ordered By: John Cortes on 03-31-2023 Monocytes/100 WBC (Bld) 6.5 % . [facility] Neutrophils Auto (Bld) [#/Vo l]Ordered By: John Cortes on 03-31-2023 Neutrophils (Bld) [#/Vol] 5.4 10*3/uL 1.8-7.7 [facility] Neutrophils/100 WBC Auto (Bl d)Ordered By: John Cortes on 03-31-2023 Neutrophils/100 WBC (Bld) 63.6 % . [facility] Nitrite Test strip Ql (U)Ord ered By: John Cortes on 03-31-2023 Nitrite Ql (U) Negative Negative [facility] No Panel InformationOrdered By: John Cortes on 03-31-2023 > 60.0 mL/Min [facility] 109.42 [facility] Nucleated erythrocytes [Pres ence] in Blood by Automated countOrdered By: John Cortes on 03-31-2023 Nucleated RBC Auto Ql (Bld) 0.1 /100{WBC} 0-0.5 [facility] Platelet mean volume Auto (B ld) [Entitic vol]Ordered By: John Cortes on 03-31-2023 Platelet mean volume (Bld) [Entitic vol] 7.9 fL 6.3-10.7 [facility] Platelets Auto (Bld) [#/Vol] Ordered By: John Cortes on 03-31-2023 Platelets (Bld) [#/Vol] 375 10*3/uL 150-450 [facility] Potassium [Moles/volume] in Serum or PlasmaOrdered By: John Cortes on 03-31-2023 Potassium [Moles/Vol] 3.3 mmol/L 3.5-5.1 [facility] Protein Auto test strip (U) [Mass/Vol]Ordered By: John Cortes on 03-31-2023 Protein (U) [Mass/Vol] Negative Negative [facility] Protein [Mass/volume] in Ser um or PlasmaOrdered By: John Cortes on 03-31-2023 Protein [Mass/Vol] 7.6 g/dL 6.4-8.9 [facility] RBC Auto (Bld) [#/Vol]Ordere d By: John Cortes on 03-31-2023 RBC (Bld) [#/Vol] 4.29 10*6/uL 3.60-5.00 [facility] Serum or plasma albumin/glob ulin mass ratioOrdered By: John Cortes on 03-31-2023 Albumin/Globulin [Mass ratio] 1.4 {ratio} [facility] Serum or plasma anion gap de terminationOrdered By: John Cortes on 03-31-2023 Anion gap [Moles/Vol] 8.8 mmol/L 6.0-15.0 [facility] Sodium [Moles/volume] in Ser um or PlasmaOrdered By: John Cortes on 03-31-2023 Sodium [Moles/Vol] 137 mmol/L 136-145 [facility] Specific gravity Auto test s trip (U) [Rel density]Ordered By: John Cortes on 03-31-2023 Specific gravity (U) [Rel density] 1.004 1.001-1.030 [facility] Troponin I.cardiac [Mass/vol ume] in Serum or Plasma by Detection limit <= 0.01 ng/Ordered By: John Cortes on 03-31-2023 Troponin I.cardiac DL <= 0.01 ng/mL [Mass/Vol] 5.5 pg/mL 0.0-15.0 [facility] Urea nitrogen [Mass/volume] in Serum or PlasmaOrdered By: John Cortes on 03-31-2023 Urea nitrogen [Mass/Vol] 11 mg/dL 7-25 [facility] Urine bacteria detection by automated methodOrdered By: John Cortes on 03-31-2023 Bacteria Auto Ql (U) None seen None Seen [facility] Urine clarity by refractomet ry automatedOrdered By: John Cortes on 03-31-2023 Clarity Refractometry automated (U) Clear Clear [facility] Urine glucose measurement by automated test strip (mass/volume)Ordered By: John Cortes on 03-31-2023 Glucose Auto test strip (U) [Mass/Vol] Normal mg/dL Normal [facility] Urine hemoglobin detection b y automated test stripOrdered By: John Cortes on 03-31-2023 Hemoglobin Auto test strip Ql (U) Trace Negative [facility] Urine leukocyte esterase det ection by automated test stripOrdered By: John Cortes on 03-31-2023 Leukocyte esterase Auto test strip Ql (U) Negative Negative [facility] Urobilinogen Auto test strip (U) [Mass/Vol]Ordered By: John Cortes on 03-31-2023 Urobilinogen (U) [Mass/Vol] Normal mg/dL Normal [facility] WBC Auto (Bld) [#/Vol]Ordere d By: John Cortes on 03-31-2023 WBC (Bld) [#/Vol] 8.5 10*3/uL 3.8-11.6 [facility] pH Auto test strip (U)Ordere d By: John Cortes on 03-31-2023 pH (U) 6.0 [pH] 5.0-9.0 [facility] Auto Diffon 03-29-2023 Basophils/100 WBC (Bld) 0.6 % Normal 0.0-2.0 [facility] Comment on above: Order Comment: Order Added by Discern Expert. Performed By: #### 1 [id number] #### [facility] [address] [place] [address] Basophils/Leukocytes Auto (Bld) [Pure # fraction] 0.0 E9/L Normal 0.0-0.2 [facility] Comment on above: Order Comment: Order Added by Discern Expert. Performed By: #### 1 [id number] #### [facility] [address] [place] [address] Eosinophils/100 WBC (Bld) 3.9 % Normal 0.0-8.0 [facility] Comment on above: Order Comment: Order Added by Discern Expert. Performed By: #### 1 [id number] #### [facility] [address] [place] [address] Eosinophils/Leukocytes Auto (Bld) [Pure # fraction] 0.3 E9/L Normal 0.0-0.5 [facility] Comment on above: Order Comment: Order Added by Discern Expert. Performed By: #### 1 [id number] #### [facility] [address] [place] [address] 56732 Lymphocytes/100 WBC (Bld) 35.3 % Normal 14.0-50.0 [facility] Comment on above: Order Comment: Order Added by Discern Expert. Performed By: #### 1 [id number] #### [facility] [address] [place] [address] Lymphocytes/Leukocytes Auto (Bld) [Pure # fraction] 2.8 E9/L Normal 1.0-4.0 [facility] Comment on above: Order Comment: Order Added by Discern Expert. Performed By: #### 1 [id number] #### [facility] [address] [place] [address] 70243 Monocytes/100 WBC (Bld) 6.9 % Normal 4.0-14.0 [facility] Comment on above: Order Comment: Order Added by Discern Expert. Performed By: #### 1 [id number] #### [facility] [address] [place] [address] Monocytes/Leukocytes Auto (Bld) [Pure # fraction] 0.5 E9/L Normal 0.2-1.0 [facility] Comment on above: Order Comment: Order Added by Discern Expert. Performed By: #### 1 [id number] #### [facility] [address] [place] [address] Neutrophils/100 WBC (Bld) 53.3 % Normal 36.0-75.0 [facility] Comment on above: Order Comment: Order Added by Discern Expert. Performed By: #### 1 [id number] #### [facility] [address] [place] [address] Neutrophils/Leukocytes Auto (Bld) [Pure # fraction] 4.2 E9/L Normal 2.0-7.5 [facility] Comment on above: Order Comment: Order Added by Discern Expert. Performed By: #### 1 [id number] #### [facility] [address] [place] [address] BMPon 03-29-2023 Anion gap [Moles/Vol] 13 mmol/L Normal 6-16 [facility] Comment on above: Performed By: #### 1 [id number] #### [facility] [address] [place] [address] BUN/Creat Ratio 17 No Units Normal 10-20 [facility] Comment on above: Performed By: #### 1 [id number] #### [facility] [address] [place] [address] Calcium [Mass/Vol] 8.9 mg/dL Normal 8.9-11.1 [facility] Comment on above: Performed By: #### 1 [id number] #### [facility] [address] [place] [address] Chloride [Moles/Vol] 107 mmol/L Normal 101-111 [facility] Comment on above: Performed By: #### 1 [id number] #### [facility] [address] [place] [address] CO2 [Moles/Vol] 23 mmol/L Normal 21-31 [facility] Comment on above: Performed By: #### 1 [id number] #### [facility] [address] [place] [address] Creatinine [Mass/Vol] 0.6 mg/dL Normal 0.5-1.3 [facility] Comment on above: Performed By: #### 1 [id number] #### [facility] [address] [place] [address] Glucose [Mass/Vol] 107 mg/dL Normal 55-199 [facility] Comment on above: Performed By: #### 1 [id number] #### [facility] [address] [place] [address] Potassium [Moles/Vol] 3.6 mmol/L Normal 3.5-5.3 [facility] Comment on above: Performed By: #### 1 [id number] #### [facility] [address] [place] [address] Sodium [Moles/Vol] 139 mmol/L Normal 135-145 [facility] Comment on above: Performed By: #### 1 [id number] #### [facility] [address] [place] [address] Urea nitrogen [Mass/Vol] 10 mg/dL Normal 5-21 [facility] Comment on above: Performed By: #### 1 [id number] #### [facility] [address] [place] [address] CBC w/ Auto Diffon Erythrocyte distribution width (RBC) [Ratio] 15.5 % High 10.9-14.2 [facility] Comment on above: Performed By: #### 1 [id number] #### [facility] [address] [place] [address] Hematocrit (Bld) [Volume fraction] 36.6 % Normal 34.0-46.0 [facility] Comment on above: Performed By: #### 1 [id number] #### [facility] [address] [place] [address] Hemoglobin (Bld) [Mass/Vol] 12.2 g/dL Normal 12.0-16.0 [facility] Comment on above: Performed By: #### 1 [id number] #### [facility] [address] [place] [address] MCH (RBC) [Entitic mass] 28.5 pg Normal 27.0-34.0 [facility] Comment on above: Performed By: #### 1 [id number] #### [facility] [address] [place] [address] MCHC (RBC) [Mass/Vol] 33.3 g/dL Normal 31.4-36.0 [facility] Comment on above: Performed By: #### 1 [id number] #### [facility] [address] [place] [address] MCV (RBC) [Entitic vol] 85.5 fL Normal 80.0-100.0 [facility] Comment on above: Performed By: #### 1 [id number] #### [facility] [address] [place] [address] Platelet mean volume (Bld) [Entitic vol] 7.7 fL Normal 6.4-10.8 [facility] Comment on above: Performed By: #### 1 [id number] #### [facility] [address] [place] [address] Platelets (Bld) [#/Vol] 373.0 E9/L Normal 150.0-500.0 [facility] Comment on above: Performed By: #### 1 [id number] #### [facility] [address] [place] [address] RBC (Bld) [#/Vol] 4.3 E12/L Normal 4.3-5.9 [facility] Comment on above: Performed By: #### 1 [id number] #### [facility] [address] [place] [address] WBC corrected for nucl RBC Auto (Bld) [#/Vol] 7.9 E9/L Normal 4.0-11.0 [facility] Comment on above: Performed By: #### 1 [id number] #### [facility] [address] [place] [address] CHEMISTRYOrdered By: SYSTEM SYSTEM on 03-29-2023 Anion gap [Moles/Vol] 13 mmol/L Normal 6 - 16 mEq/L [facility] Calcium [Mass/Vol] 8.9 mg/dL Normal 8.9 - 11. 1 mg/dL [facility] Chloride [Moles/Vol] 107 mmol/L Normal 101 - 1 11 mmol/L [facility] CO2 [Moles/Vol] 23 mmol/L Normal 21 - 31 mmol/L [facility] Creatinine [Mass/Vol] 0.6 mg/dL Normal 0.5 - 1.3 mg/dL [facility] eGFR mL/min/1.73 m2 Normal >=59mL/min/ 1.73 m2 [facility] Glucose [Mass/Vol] 107 mg/dL Normal 55 - 199 mg/dL [facility] Potassium [Moles/Vol] 3.6 mmol/L Normal 3.5 - 5.3 mmol/L [facility] Sodium [Moles/Vol] 139 mmol/L Normal 135 - 145 mmol/L [facility] Urea nitrogen [Mass/Vol] 10 mg/dL Normal 5 - 21 mg/dL [facility] Urea nitrogen/Creatinine [Mass ratio] 17 mg/mg Normal 10 - 20 [facility] Consent for Treatmenton 03-02 Consent for Treatment [id number] 0TIFF Normal [facility] Discharge Instructionson Discharge Instructions [id number] 0TIFF Normal [facility] ED Clinical Summaryon 2022 ED Clinical Summary [address] [address] ED Clinical Summary Person Information Name: GIOVANNA STREETER [place]/[facility] Age: 47 Years : 1975 Sex: Female Language: Comoran PCP: REBECCA NAVAS CNP Marital Status: Visit Id: Visit Reason: Abdominal pain; Body aches; Headache; HEADACHE BODY RUNNING NOSE SORE THROAT Speciality: Acuity: 3 Enc Type: Emergency Med Service: Emergency Arrival: 03/29/2023 02:28:24 Discharge: 03/29/2023 07:19:06 LOS: 000 04:51 Checkin: 03/29/2023 02:28:24 Checkout: 03/29/2023 07:19:06 Dispo Type: Home (Routine DC) EVENTS: Event Name Event Status Request Date/Time Start Date/Time Complete Date/Time Arrive Complete 03/29/2023 02:28:24 03/29/2023 02:28:24 03/29/2023 02:28:24 Document Home Meds Request 03/29/2023 02:28:24 Triage Complete 03/29/2023 02:28:24 03/29/2023 02:45:06 03/29/2023 02:45:06 Registration Complete 03/29/2023 02:32:04 03/29/2023 02:32:04 03/29/2023 02:32:04 Reg Complete Request 03/29/2023 02:32:04 Reg Bed Request Complete 03/29/2023 02:32:04 03/29/2023 02:32:04 03/29/2023 02:32:04 Bed Assign Complete 03/29/2023 03:34:55 03/29/2023 03:34:55 03/29/2023 03:34:55 Dr Exam Complete 03/29/2023 03:34:55 03/29/2023 04:44:25 03/29/2023 04:44:25 RN Exam Complete 03/29/2023 03:34:55 03/29/2023 03:55:46 03/29/2023 03:55:46 Registration Request 03/29/2023 04:44:25 Pending Labs Complete 03/29/2023 04:51:37 03/29/2023 06:00:43 Swab Complete 03/29/2023 04:51:37 03/29/2023 06:00:33 Lab Complete 03/29/2023 04:51:37 03/29/2023 06:00:43 Urine Collect Complete 03/29/2023 04:51:37 03/29/2023 05:34:50 Meds Admin Complete 03/29/2023 04:51:37 03/29/2023 06:41:39 Pending Labs Complete 03/29/2023 05:12:58 03/29/2023 05:12:58 03/29/2023 05:36:05 Lab Complete 03/29/2023 05:12:58 03/29/2023 05:12:58 03/29/2023 05:36:05 Pending Labs Complete 03/29/2023 05:16:20 03/29/2023 05:16:20 03/29/2023 05:16:27 Lab Complete 03/29/2023 05:16:20 03/29/2023 05:16:20 03/29/2023 05:16:27 Pending Labs Inlab 03/29/2023 05:51:19 03/29/2023 05:51:19 Pending Labs Complete 03/29/2023 06:12:18 03/29/2023 06:12:18 03/29/2023 06:12:18 Discharge Complete 03/29/2023 07:10:02 03/29/2023 07:19:12 03/29/2023 07:19:12 Transfer Complete 03/29/2023 07:19:12 03/29/2023 07:19:12 03/29/2023 07:19:12 ADDRESS: [address] [place] [id number] [facility] DOC NOTES: MEDICAL INFORMATION: Prescriptions Given: New Medications [id number], [address], [place] [id number], [phone] APAP/butalbital/caffei ne (APAP/butalbital/caffe ine 325 mg-50 mg-40 mg Tab) 2 Tablets By Mouth every 6 hours as needed for headache. Refills: 0. Medications to Continue Taking That Have Changed [facility] #[id number], [address], [place] [id number], [phone] START: ondansetron (Zofran ODT 4 mg Tab-Dis) 1 Tablets By Mouth every 8 hours. Refills: 0. Other Medications START: ondansetron (Zofran ODT 4 mg Tab-Dis) 1 Tablets By Mouth every 8 hours as needed Nausea/Vomiting. Refills: 0. Medications to Continue with No Changes Other Medications acetaminophen-hydrocod one (Lawnside 325 mg-5 mg oral tablet) 1 Tablets By Mouth every 4 hours as needed for pain. Refills: 0. atorvastatin (atorvastatin 20 mg Tab) 1 Tablets By Mouth every day. azithromycin (Zithromax) 250 Milligram By Mouth. brompheniramine/dextro methorphan/PSE (Bromfed DM oral syrup) 5 Milliliter By Mouth 4 times a day as needed for cough and congestion. Refills: 0. cyclobenzaprine (cyclobenzaprine 10 mg Tab) 1 Tablets By Mouth 3 times a day as needed Muscle pain. Refills: 0. lisinopril 20 Milligram By Mouth every day. naproxen (Naprosyn 500 mg Tab) 1 Tablets By Mouth 2 times a day as needed for pain. Refills: 0. naproxen (Naprosyn 500 mg Tab) 1 Tablets By Mouth 2 times a day as needed for pain. Refills: 0. naproxen (naproxen 500 mg oral enteric coated tablet) 1 Tablets By Mouth 2 times a day as needed Pain. Refills: 0. omeprazole (omeprazole 20 mg Cap-DR) 1 Capsules By Mouth every day. predniSONE (predniSONE 20 mg Tab) 1 Tablets By Mouth As Directed. take two tabs daily for 5 days, then one tab daily for 5 days.. Refills: 0. PATIENT EDUCATION INFORMATION: Instructions: Food Choices to Help Relieve Diarrhea, Adult; Diarrhea, Adult; Pharyngitis, Avrl-fo-Esro Follow up: With: Address: When: REBECCA NAVAS [address] [facility] [facility] [place] [address] Within 3 to 5 days DIAGNOSIS: 1:Diarrhea; 2:Body aches; 3:Pharyngitis Normal [facility] ED Note-Physicianon 03-29-20 ED Note-Physician Basic Information Time Seen: Moisés Lopez MD 03/29/2023 04:44 He is with positional vertigo he got 25 I given another 12-1/2 euro medial output and Chief Complaint Chills, headache, ABD pain, aching legs since yesterday. History of Present Illness 47-year-old female presents with multiple complaints which started 3 days ago. She states that initial symptoms was nasal congestion and a sore throat. This then progressed to an infrequent cough but more generalized body aches. She states he has been nauseated with this but has not vomited. She has had multiple episodes of diarrhea however. She denies any dysuria. Patient does take medication for blood pressure and elevated cholesterol. Patient has not been vaccinated for either COVID or influenza. Review of Systems A 10 point review of systems is negative except as noted above. Medical and Surgical History: Reviewed and noted Social history: Lives at home Tobacco: Denies Physical Exam Vitals & Measurements T: 36.6 ?C(Oral) HR: 68(Monitored) RR: 18 BP: 127/69 SpO2: 97% HT: 160 cm WT: 97 kg BMI: 37.89 This is a overweight 47-year-old female she is alert and oriented skin is warm and dry color is pink on room air. Oral mucosa is moist I do not detect redness posteriorly there is no drooling. There is no cervical lymphadenopathy. The lungs show fair air entry. Breath sounds are somewhat diminished probably due to the patient's body size. No adventitious sounds are noted. Heart sounds are distant but regular. The abdomen is distended obese soft relatively nontender to deep palpation there is no guarding or rebound. There are no masses. Assessment/Plan 1. Diarrhea (R19.7: Diarrhea, unspecified) 2. Body aches (R52: Pain, unspecified) 3. Pharyngitis (J02.9: Acute pharyngitis, unspecified) Orders: APAP/butalbital/caffei ne, 2 tab(s), Oral, q6hr for headache, 20 tab(s), Refill(s) 0, [id number], 160, cm, 03/29/23 2:45:00 EST, Height/Length Dosing, 97, kg, 03/29/23 2:45:00 EST, Weight Dosing ondansetron, 4 mg = 1 tab(s), Oral, q8hr, # 10 tab(s), Refills(s) 0, Pharmacy: [facility] #[id number], 160, cm, 03/29/23 2:45:00 EST, Height/Length Dosing, 97, kg, 03/29/23 2:45:00 EST, Weight Dosing Sodium Chloride 0.9% intravenous solution, 250 mL, Soln-IV, IV, Once, Stop date 03/29/23 4:51:00 EST, STAT, Start date 03/29/23 4:51:00 EST, Infuse over 60, minute(s) Automated Diff Basic Metabolic Panel CBC w/ Auto Diff eGFR Extra Blue Tube Group A Strep by PCR Influenza A&B Ag Rapid COVID Antigen ([facility]) Rapid Strep w/rfx UA With Cult Reflex Disposition Plan Patient Discharge Condition Stable Discharge Disposition Home but off work until Saturday Discharge Prescription List Prescriptions APAP/butalbital/caffei ne 325 mg-50 mg-40 mg Tab, 2 tab(s), Oral, q6hr, PRN Zofran ODT 4 mg Tab-Dis, 4 mg= 1 tab(s), Oral, q8hr Follow-up With When Contact Information REBECCA NAVAS Within 3 to 5 days [address] [facility] [facility] [place] [address]- Additional Instructions: Patient Education Food Choices to Help Relieve Diarrhea, Adult Diarrhea, Adult Pharyngitis, Risb-rm-Bvby Problem List/Past Medical History Ongoing Asymptomatic microscopic hematuria BMI 33.0-33.9,adult Cystitis Dysuria Smoker Stress incontinence Umbilical hernia Historical Hypertension Procedure/Surgical History Bilateral tubal ligation. Medications Inpatient No active inpatient medications Home APAP/butalbital/caffei ne 325 mg-50 mg-40 mg Tab, 2 tab(s), Oral, q6hr, PRN atorvastatin 20 mg Tab, 20 mg= 1 tab(s), Oral, Daily, Not taking: states she is not taking any daily meds at this time. Bromfed DM oral syrup, 5 mL, Oral, QID, PRN, Not taking: states she is not taking any daily meds at this time. cyclobenzaprine 10 mg Tab, 10 mg= 1 tab(s), Oral, TID, PRN, Not taking: states she is not taking any daily meds at this time. lisinopril, 20 mg, Oral, Daily, Not taking: states she is not taking any daily meds at this time. Naprosyn 500 mg Tab, 500 mg= 1 tab(s), Oral, BID, PRN Naprosyn 500 mg Tab, 500 mg= 1 tab(s), Oral, BID, PRN, Not taking: states she is not taking any daily meds at this time. naproxen 500 mg oral enteric coated tablet, 500 mg= 1 tab(s), Oral, BID, PRN, Not taking: states she is not taking any daily meds at this time. Lawnside 325 mg-5 mg oral tablet, 1 tab(s), Oral, q4hr, PRN, Not taking: states she is not taking any daily meds at this time. omeprazole 20 mg Cap-DR, 20 mg= 1 cap(s), Oral, Daily, Not taking: states she is not taking any daily meds at this time. predniSONE 20 mg Tab, 20 mg= 1 tab(s), Oral, As Directed, Not taking: states she is not taking any daily meds at this time. Zithromax, 250 mg, Oral, Not taking: states she is not taking any daily meds at this time. Zofran ODT 4 mg Tab-Dis, 4 mg= 1 tab(s), Oral, q8hr, PRN, Not taking: states she is not taking any daily meds at this time. Zofran ODT 4 mg Tab-Dis, 4 mg= 1 tab(s), Oral, q8hr Allergies Dilaudid (Unknown) cefa (more content not included)... Normal [facility] Comment on above: Result Comment: Elec tronically Signed By: John COSME, Moisés\.br\Date and Time Signed: 03/29/23 07:10 EST ED Patient Education Noteon 03-29-2023 ED Patient Education Note Gastroenterology Food Choices to Help Relieve Diarrhea, Adult Diarrhea can make you feel weak and cause you to become dehydrated. It is important to choose the right foods and drinks to: ? Relieve diarrhea. ? Replace lost fluids and nutrients. ? Prevent dehydration. What are tips for following this plan? Relieving diarrhea ? Avoid foods that make your diarrhea worse. These may include: ? Foods and beverages sweetened with high-fructose corn syrup, honey, or sweeteners such as xylitol, sorbitol, and mannitol. ? Fried, greasy, or spicy foods. ? Raw fruits and vegetables. ? Eat foods that are rich in probiotics. These include foods such as yogurt and fermented milk products. Probiotics can help increase healthy bacteria in your stomach and intestines (gastrointestinal tract or GI tract). This may help digestion and stop diarrhea. ? If you have lactose intolerance, avoid dairy products. These may make your diarrhea worse. ? Take medicine to help stop diarrhea only as told by your health care provider. Replacing nutrients ? Eat bland, ngzg-ow-vjiigo foods in small amounts as you are able, until your diarrhea starts to get better. These foods include bananas, applesauce, rice, toast, and crackers. ? Gradually reintroduce nutrient-rich foods as tolerated or as told by your health care provider. This includes: ? Well-cooked protein foods, such as eggs, lean meats like fish or chicken without skin, and tofu. ? Peeled, seeded, and soft-cooked fruits and vegetables. ? Low-fat dairy products. ? Whole grains. ? Take vitamin and mineral supplements as told by your health care provider. Preventing dehydration ? Start by sipping water or a solution to prevent dehydration (oral rehydration solution, ORS). This is a drink that helps replace fluids and minerals your body has lost. You can buy an ORS at pharmacies and retail stores. ? Try to drink at least 8?10 cups (2,000?2,500 mL) of fluid each day to help replace lost fluids. If you have urine that is pale yellow, you are getting enough fluids. ? You may drink other liquids in addition to water, such as fruit juice that you have added water to (diluted fruit juice) or low-calorie sports drinks, as tolerated or as told by your health care provider. ? Avoid drinks with caffeine, such as coffee, tea, or soft drinks. ? Avoid alcohol. Summary ? When you have diarrhea, it is important to choose the right foods and drinks to relieve diarrhea, to replace lost fluids and nutrients, and to prevent dehydration. ? Make sure you drink enough fluid to keep your urine pale yellow. ? You may benefit from eating bland foods at first. Gradually reintroduce healthy, nutrient-rich foods as tolerated or as told by your health care provider. ? Avoid foods that make your diarrhea worse, such as fried, greasy, or spicy foods. This information is not intended to replace advice given to you by your health care provider. Make sure you discuss any questions you have with your health care provider. Document Revised: 06/08/2022 Document Reviewed: 05/03/2020 Elsevier Patient Education ? 2022 [employer] Infectious Disease Diarrhea, Adult Diarrhea is frequent loose and watery bowel movements. Diarrhea can make you feel weak and cause you to become dehydrated. Dehydration can make you tired and thirsty, cause you to have a dry mouth, and decrease how often you urinate. Diarrhea typically lasts 2?3 days. However, it can last longer if it is a sign of something more serious. It is important to treat your diarrhea as told by your health care provider. Follow these instructions at home: Eating and drinking Follow these recommendations as told by your health care provider: ? Take an oral rehydration solution (ORS). This is an mfrn-bhl-dqcgfgp medicine that helps return your body to its normal balance of nutrients and water. It is found at pharmacies and retail stores. ? Drink plenty of fluids, such as water, ice chips, diluted fruit juice, and low-calorie sports drinks. You can drink milk also, if desired. ? Avoid drinking fluids that contain a lot of sugar or caffeine, such as energy drinks, sports drinks, and soda. ? Eat bland, fowz-si-ikffbj foods in small amounts as you are able. These foods include bananas, applesauce, rice, lean meats, toast, and crackers. ? Avoid alcohol. ? Avoid spicy or fatty foods. Medicines ? Take duto-kkd-isrxltr and prescription medicines only as told by your health care provider. ? If you were prescribed an antibiotic medicine, take it as told by your health care provider. Do not stop using the antibiotic even if you start to feel better. General instructions ? Wash your hands often using soap and water. If soap and water are not available, use a hand volunteer services specialist. Others in the household sh (more content not included)... Normal [facility] ED Patient Summaryon 023 ED Patient Summary [place] [id number] Patient Discharge Instructions Person Information Name: GIOVANNA STREETER Age: 47 Years Arrival Date: 03/29/2023 02:28:24 Discharge Diagnosis: 1:Diarrhea; 2:Body aches; 3:Pharyngitis Primary Care Physician: REBECCA NAVAS CNP Provider Information Primary Provider: Moisés Lopez MD Advanced Cigarette Lighter Repairer:None The exam and treatment you received in the Emergency Department were for an urgent problem and are not intended as complete care. It is important that you follow up with a doctor, nurse practitioner, or physician?s medical assistant float for ongoing care. If your symptoms become worse or you do not improve as expected and you are unable to reach your usual health care provider, you should return to the Emergency Department. We are available 24 hours a day. GIOVANNA STREETER has been given the following list of patient education materials, prescriptions and follow-up instructions: Follow-up Instructions: With: Address: When: REBECCA NAVAS [address] [place] [address] Within 3 to 5 days In the event that this physician does not participate in your insurance network, please consult with your insurance company to find a nearby participating provider. Patient Education Materials: Food Choices to Help Relieve Diarrhea, Adult; Diarrhea, Adult; Pharyngitis, Kpbl-gg-Pqdg A MESSAGE TO ALL PATIENTS REGARDING OPIOIDS PRESCRIPTION OPIOIDS: WHAT YOU NEED TO KNOW Prescription opioids can be used to help relieve hwsjqogz-to-mazzvt pain and are often prescribed following a surgery or injury, or for certain health conditions. These medications can be an important part of the treatment but also come with serious risks. It is important to work with your healthcare provider to make sure you are getting the safest, most effective care. WHAT ARE THE RISKS AND SIDE EFFECTS OF OPIOID USE? Prescription opioids carry serious risks of addiction and overdose, especially with prolonged use. An opioid overdose, often marked by slowed breathing, can cause sudden . The use of prescription opioids can have a number of side effects as well, even when taken as directed: ? Tolerance?meaning you might need to take more of the medication for the same pain relief ? Physical dependence?meaning you have symptoms of withdrawal when a medication is stopped ? Increased sensitivity to pain ? Constipation ? Nausea, vomiting, and dry mouth ? Sleepiness and dizziness ? Confusion ? Depression ? Low levels of testosterone that can result in lower sex drive, energy, and strength ? Itching and sweating RISKS ARE GREATER WITH: ? History of drug misuse, substance use disorder, or overdose ? Mental health conditions (such as depression or anxiety) ? Sleep apnea ? Older age (65 years and older) ? Avoid alcohol while taking prescription opioids. Also, unless specifically advised by your health care provider, medications to avoid include: ? Benzodiazepines (such as Xanax or Valium) ? Muscle relaxants (such as Soma or Flexeril) ? Hypnotics (such as Ambien or Lunesta) ? Other prescription opioids KNOW YOUR OPTIONS Talk to your health care provider about ways to manage your pain that don?t involve prescription opioids. Some of these options may actually work better and have fewer risks and side effects. Options may include: ? Pain relievers such as acetaminophen, ibuprofen, and naproxen ? Some medication that are also used for depression or seizures ? Physical therapy and exercise ? Cognitive behavioral therapy, a psychological, goal-directed approach, in which patients learn how to modify physical, behavioral, and emotional triggers of pain and stress. IF YOU ARE PRESCRIBED OPIOIDS FOR PAIN: ? Never take opioids in greater amounts or more often than prescribed. ? Follow up with your primary health care provider. o Work together to create a plan on how to manage your pain. o Talk about ways to help manage your pain that don?t involve prescription opioids. o Talk about any and all concerns and side effects. ? Help prevent misuse and abuse o Never sell or share prescription opioids. o Never use another person?s prescription opioids. ? Store prescription opioids in a secure place and out of reach of others (this may include visitors, children, friends, and family). ? Safely dispose of unused prescription opioids: Find your community drug take-back program or your pharmacy mail-back program, or flush them down the toilet, following guidance from the Food and Drug Administration (www.fda.gov/Drugs/Res ourcesForYou). ? Visit www.cdc.gov/drugoverdo se to learn about the risks of opioids abuse and overdose. ? If you believe you may be struggling with addiction, tell your health care provider and ask for guidance or call SAMHSA?S National Helpline at 1-8 (more content not included)... Normal [facility] Grp A Strp PCRon 03-29-2023 Grp A Strp Intrl Ctrl Pass Normal Fis her [facility] Comment on above: Order Comment: Order Added on by Discern Rule. Performed By: #### 1 [id number], [id number], [id number], [id number] #### [facility] [address] [place] [address] S. pyogenes DNA EMI+probe Ql (Throat) Negative Normal [facility] Comment on above: Order Comment: Order Added on by Discern Rule. Result Comment: Test ing performed using DNA amplification. Performed By: #### 1 [id number], [id number], [id number] #### [facility] [address] [place] [address] HEMATOLOGYOrdered By: SYSTEM SYSTEM on 03-29-2023 Basophils/100 WBC (Bld) 0.6 % Normal 0.0 - 2.0 % [facility] HemeAutoSS Basophils/Leukocytes Auto (Bld) [Pure # fraction] 0.0 E9/L Normal 0.0 - 0.2 E9/L [facility] HemeAutoSS Eosinophils/100 WBC (Bld) 3.9 % Normal 0.0 - 8.0 % [facility] HemeAutoSS Eosinophils/Leukocytes Auto (Bld) [Pure # fraction] 0.3 E9/L Normal 0.0 - 0.5 E9/L [facility] HemeAutoSS Lymphocytes/100 WBC (Bld) 35.3 % Normal 14.0 - 50.0 % [facility] HemeAutoSS Lymphocytes/Leukocytes Auto (Bld) [Pure # fraction] 2.8 E9/L Normal 1.0 - 4.0 E9/L [facility] HemeAutoSS Monocytes/100 WBC (Bld) 6.9 % Normal 4.0 - 14.0 % [facility] HemeAutoSS Monocytes/Leukocytes Auto (Bld) [Pure # fraction] 0.5 E9/L Normal 0.2 - 1.0 E9/L [facility] HemeAutoSS Neutrophils/100 WBC (Bld) 53.3 % Normal 36.0 - 75.0 % [facility] HemeAutoSS Neutrophils/Leukocytes Auto (Bld) [Pure # fraction] 4.2 E9/L Normal 2.0 - 7.5 E9/L [facility] HemeAutoSS HEMATOLOGYOrdered By: Katie Davis on 03-29-2023 Erythrocyte distribution width (RBC) [Ratio] 15.5 % High 10.9 - 14.2 % [facility] HemeAutoSS Hematocrit (Bld) [Volume fraction] 36.6 % Normal 34.0 - 46.0 % [facility] HemeAutoSS Hemoglobin (Bld) [Mass/Vol] 12.2 g/dL Normal 12.0 - 16.0 gm/dL [facility] HemeAutoSS MCH (RBC) [Entitic mass] 28.5 pg Normal 27. 0 - 34.0 pg [facility] HemeAutoSS MCHC (RBC) [Mass/Vol] 33.3 g/dL Normal 31.4 - 36.0 gm/dL [facility] HemeAutoSS MCV (RBC) [Entitic vol] 85.5 fL Normal 80.0 - 100.0 fL [facility] Platelet mean volume (Bld) [Entitic vol] 7.7 fL Normal 6.4 - 10.8 fL [facility] HemeAutoSS Platelets (Bld) [#/Vol] 373.0 E9/L Normal 150. 0 - 500.0 E9/L [facility] HemeAutoSS RBC (Bld) [#/Vol] 4.3 E12/L Normal 4.3 - 5.9 E12/L [facility] HemeAutoSS WBC corrected for nucl RBC Auto (Bld) [#/Vol] 7.9 E9/L Normal 4.0 - 11.0 E9/L [facility] HemeAutoSS Influenza A&B Agon Influenzae A Ag Negative Normal Negative [facility] Comment on above: Performed By: #### 1 [id number] #### [facility] [address] [place] [address] Influenzae B Ag Negative Normal Negative [facility] Comment on above: Result Comment: Test sensitivity and specificity vary for age group, specimen type, antigen types, and prevalence of disease. Test results must be evaluated in conjunction with other clinical data available to the physician. Individuals who received nasally administered Influenza A vaccine may have positive test results up to 3 days after vaccination. Performed By: #### 1 [id number], [id number], [id number], [id number] #### [facility] [address] [place] [address] MICRO OTHER TESTSOrdered By: Adelita Davis on 03-29-2023 Influenzae A Ag Negative (03/29/23 5:26 AM) Normal Negative [facility] Man Sero Influenzae B Ag Negative 1 (03/29/23 5:26 AM) Normal Negative [facility] Comment on above: Interpretive Data: T est sensitivity and specificity vary for age group, specimen type, antigen types, and prevalence of disease. Test results must be evaluated in conjunction with other clinical data available to the physician. Individuals who received nasally administered Influenza A vaccine may have positive test results up to 3 days after vaccination. Rapid COV Int NEG Ctl Pass (03/29/23 5:26 AM) Normal [facility] Man Sero Rapid COV Int POS Ctl Pass (03/29/23 5:26 AM) Normal [facility] Sero S. pyogenes Ag IA.rapid Ql (Throat) Negative (03/29/23 5:26 AM) Normal Negative [facility] Sero SARS-CoV+SARS-CoV-2 (COVID-19) Ag IA.rapid Ql (Resp) Not Detected 2 (03/29/23 5:26 AM) Normal Not Detected [facility] Comment on above: Interpretive Data: T he Tem[employer] Veritor System for Rapid Detection of SARS-CoV-2 is a chromatographic digital immunoassay intended for the direct and qualitative detection of SARS-CoV-2 nucleocapsid antigens in nasal swabs from individuals who are suspected of COVID-19 by their healthcare provider within the first five days of the onset of symptoms. Negative results should be treated as presumptive, do not rule out SARS-CoV-2 infection and should not be used as the sole basis for treatment or patient management decisions, including infection control decisions. Negative results should be considered in the context of a patient s recent exposures, history and the presence of clinical signs and symptoms consistent with COVID-19, and confirmed with a molecular assay, if necessary, for patient management. For in vitro diagnostic use. In the [place], only for use under an Emergency Use Authorization. In the [place], this test has not been FDA cleared or approved; this test has been authorized by FDA under an EUA for use by authorized laboratories; use by laboratories certified under the CLIA, 42 U.S.C. 263a, that meet requirements to perform moderate, high, or waived complexity tests and at the Point of Care (POC), i.e., in patient care settings operating under a CLIA Certificate of Waiver, Certificate of Compliance, or Certificate of Accreditation. This test has been authorized only for the detection of proteins from SARS-CoV-2, not for any other viruses or pathogens; and, in the [facility], this test is only authorized for the duration of the declaration that circumstances exist justifying the authorization of emergency use of in vitro diagnostics for detection and/or diagnosis of the virus that causes COVID-19 under Section 564(b)(1) of the Act, 21 U.S.C. 360bbb-3(b)(1), unless the authorization is terminated or revoked sooner. Prescriptions/Work Noteson 1 Prescriptions/Work Notes [id number]#1.0 0TIFF Normal [facility] Rapid COVID Antigen ([facility])on 03-29-2023 Rapid COV Int NEG Ctl Pass Normal [facility] Comment on above: Performed By: #### 1 [id number], [id number], [id number], [id number] #### [facility] [address] [place] [address] Rapid COV Int POS Ctl Pass Normal [facility] Comment on above: Performed By: #### 1 [id number], [id number], [id number], [id number] #### [facility] [address] [place] [address] SARS-CoV+SARS-CoV-2 (COVID-19) Ag IA.rapid Ql (Resp) Not detected Normal Not Detected [facility] Comment on above: Result Comment: The [employer]? System for Rapid Detection of SARS-CoV-2 is a chromatographic digital immunoassay intended for the direct and qualitative detection of SARS-CoV-2 nucleocapsid antigens in nasal swabs from individuals who are suspected of COVID-19 by their healthcare provider within the first five days of the onset of symptoms. Negative results should be treated as presumptive, do not rule out SARS-CoV-2 infection and should not be used as the sole basis for treatment or patient management decisions, including infection control decisions. Negative results should be considered in the context of a patient?s recent exposures, history and the presence of clinical signs and symptoms consistent with COVID-19, and confirmed with a molecular assay, if necessary, for patient management. For in vitro diagnostic use. In the [place], only for use under an Emergency Use Authorization. In the [place], this test has not been FDA cleared or approved; this test has been authorized by FDA under an EUA for use by authorized laboratories; use by laboratories certified under the CLIA, 42 U.S.C. ?263a, that meet requirements to perform moderate, high, or waived complexity tests and at the Point of Care (POC), i.e., in patient care settings operating under a CLIA Certificate of Waiver, Certificate of Compliance, or Certificate of Accreditation. This test has been authorized only for the detection of proteins from SARS-CoV-2, not for any other viruses or pathogens; and, in the [facility], this test is only authorized for the duration of the declaration that circumstances exist justifying the authorization of emergency use of in vitro diagnostics for detection and/or diagnosis of the virus that causes COVID-19 under Section 564(b)(1) of the Act, 21 U.S.C. ? 360bbb-3(b)(1), unless the authorization is terminated or revoked sooner. Performed By: #### 1 [id number], [id number], [id number], [id number] #### [facility] [address] [place] [address] Rapid Strep w/rfxon 03-29-20 23 S. pyogenes Ag IA.rapid Ql (Throat) Negative Normal Negative [facility] Comment on above: Performed By: #### 1 [id number], [id number], [id number], [id number] #### [facility] [address] [place] [address] UA With Cult Reflexon 2022 Bilirubin Ql (U) Negative Normal Negative [facility] Comment on above: Performed By: #### 2 [id number] #### [facility] [address] [place] [address] Clarity (U) CLEAR Normal Clear [facility] Comment on above: Performed By: #### 2 [id number], [id number] #### [facility] [address] [place] [address] Color (U) YELLOW Normal Yellow [facility] Comment on above: Performed By: #### 2 [id number], [id number] #### [facility] [address] [place] [address] Epithelial cells.squamous LM.HPF (Urine sed) [#/Area] 0-2 Normal 0-2 [facility] Comment on above: Performed By: #### 2 [id number], [id number] #### [facility] [address] [place] [address] Glucose Test strip (U) [Mass/Vol] Negative Normal Negative [facility] Comment on above: Performed By: #### 2 [id number], [id number] #### [facility] [address] [place] [address] Hemoglobin Ql (U) TRACE Abnormal Negative [facility] Comment on above: Performed By: #### 2 [id number], [id number] #### [facility] [address] [place] [address] Ketones (U) [Mass/Vol] Negative Normal Negative [facility] Comment on above: Performed By: #### 2 [id number], [id number] #### [facility] [address] [place] [address] Spiro.plasma/Spiro.R BC (Bld) [Mass ratio] 0-3 Normal 0-3 [facility] Comment on above: Performed By: #### 2 [id number], [id number] #### [facility] [address] [place] [address] Mucus Ql (Urine sed) 1+ Normal [facility] Comment on above: Performed By: #### 2 [id number], [id number] #### [facility] [address] [place] [address] Nitrite Ql (U) Negative Normal Negative [facility] Comment on above: Performed By: #### 2 [id number], [id number] #### [facility] [address] [place] [address] pH (U) 6.0 [pH] Invalid Interpretation Code 5.0-9.0 [facility] Comment on above: Performed By: #### 2 [id number], [id number] #### [facility] [address] [place] [address] Protein (U) [Mass/Vol] Negative Normal Negative [facility] Comment on above: Performed By: #### 2 [id number], [id number] #### [facility] [address] [place] [address] Specific gravity (U) [Rel density] 1.025 Invalid Interpretation Code 1.005-1.030 [facility] Comment on above: Performed By: #### 2 [id number], [id number] #### [facility] [address] [place] [address] Type of Urine collection method Clean Catch Normal [facility] Comment on above: Performed By: #### 2 [id number], [id number] #### [facility] [address] [place], [place] [address] Urobilinogen Qn (U) 0.2 {Malachi'U}/dL Normal 0.0-1.0 [facility] Comment on above: Performed By: #### 2 [id number], [id number] #### [facility] [address] [place] [address] WBC Auto Ql (U) Negative Normal Negative [facility] Comment on above: Performed By: #### 2 [id number], [id number] #### [facility] [address] [place] [address] WBC LM.HPF (Urine sed) [#/Area] 0-5 Normal 0-5 [facility] Comment on above: Performed By: #### 2 [id number], [id number] #### [facility] [address] [place] [address] URINALYSISOrdered By: Katie Davis on 03-29-2023 Bilirubin Ql (U) Negative (03/29/23 4:50 AM) Normal Negative [facility] UA Auto SS Clarity (U) Clear (03/29/23 4:50 AM) Normal Clear [facility] UA Auto SS Color (U) Yellow (03/29/23 4:50 AM) Normal Yellow [facility] UA Auto SS Epithelial cells.squamous LM.HPF (Urine sed) [#/Area] 0-2 /HPF Normal 0-2/HPF [facility] UA Aut o SS Glucose Test strip (U) [Mass/Vol] Negative (03/29/23 4:50 AM) Normal Negative [facility] UA Auto SS Hemoglobin Ql (U) Trace *ABN* (03/29/23 4:50 AM) Invalid Interpretation Code Negative [facility] UA Auto SS Ketones (U) [Mass/Vol] Negative (03/29/23 4:50 AM) Normal Negative [facility] UA Auto SS Spiro.plasma/Spiro.R BC (Bld) [Mass ratio] 0-3 /HPF Normal 0-3/HPF [facility] UA Au to SS Mucus Ql (Urine sed) 1+ (03/29/23 4:50 AM) Normal [facility] UA Auto SS Nitrite Ql (U) Negative (03/29/23 4:50 AM) Normal Negative [facility] UA Auto SS pH (U) 6.0 *NA* (03/29/23 4:50 AM) Invalid Interpretation Code 5.0 - 9.0 [facility] UA Auto SS Protein (U) [Mass/Vol] Negative (03/29/23 4:50 AM) Normal Negative [facility] UA Auto SS Specific gravity (U) [Rel density] 1.025 *NA* (03/29/23 4:50 AM) Invalid Interpretation Code 1.005 - 1.030 [facility] UA Auto SS UA Spec Desc Clean Catch (03/29/23 4:50 AM) Normal [facility] UA Auto SS Urobilinogen Qn (U) 0.7851376 {Malachi'U}/dL Normal 0.0 - 1.0 EU/dL [facility] UA Auto SS WBC Auto Ql (U) Negative (03/29/23 4:50 AM) Normal Negative [facility] UA Auto SS WBC LM.HPF (Urine sed) [#/Area] 0-5 /HPF Normal 0-5/HPF [facility] UA Auto SS eGFRon 03-29-2023 GFR/1.73 sq M.predicted among non-blacks MDRD (S/P/Bld) [Vol rate/Area] mL/min/{1.73_m2} Normal >=59 [facility] Comment on above: Order Comment: Order added by Discern Expert. Performed By: #### 1 [id number] #### [facility] [address] [place] [address] ED Clinical Summaryon 2022 ED Clinical Summary [address] [address] ED Clinical Summary Person Information Name: GIOVANNA STREETER [facility] Age: 47 Years : 1975 Sex: Female Language: Comoran PCP: REBECCA NAVAS CNP Marital Status: MRN: Visit Id: Visit Reason: Abdominal pain; Abdominal distention; Nausea; DIZZY/FAINT Speciality: Acuity: 3 Enc Type: Emergency Med Service: Emergency Arrival: 03/25/2023 21:51:43 Discharge: 03/26/2023 00:56:19 LOS: 000 03:05 Checkin: 03/25/2023 21:51:43 Checkout: 03/26/2023 00:56:19 Dispo Type: Home (Routine DC) EVENTS: Event Name Event Status Request Date/Time Start Date/Time Complete Date/Time Arrive Complete 03/25/2023 21:51:43 03/25/2023 21:51:43 03/25/2023 21:51:43 Document Home Meds Request 03/25/2023 21:51:43 Triage Complete 03/25/2023 21:51:43 03/25/2023 22:07:09 03/25/2023 22:07:09 Pending Labs Complete 03/25/2023 22:35:07 03/26/2023 00:39:37 Lab Complete 03/25/2023 22:35:07 03/26/2023 00:39:37 Urine Collect Complete 03/25/2023 22:35:07 03/26/2023 00:39:37 Pending Labs Complete 03/25/2023 22:46:15 03/25/2023 22:46:15 03/25/2023 23:08:27 Lab Complete 03/25/2023 22:46:15 03/25/2023 22:46:15 03/25/2023 23:08:27 Pending Labs Complete 03/25/2023 22:50:28 03/25/2023 22:50:28 03/25/2023 22:50:34 Lab Complete 03/25/2023 22:50:28 03/25/2023 22:50:28 03/25/2023 22:50:34 Bed Assign Complete 03/25/2023 22:55:21 03/25/2023 22:55:21 03/25/2023 22:55:21 Dr Exam Complete 03/25/2023 22:55:21 03/25/2023 23:56:55 03/25/2023 23:56:55 RN Exam Complete 03/25/2023 22:55:21 03/25/2023 23:11:35 03/25/2023 23:11:35 Registration Complete 03/25/2023 23:56:55 03/26/2023 00:10:24 03/26/2023 00:10:24 Reg Complete Request 03/26/2023 00:10:24 Reg Bed Request Complete 03/26/2023 00:10:24 03/26/2023 00:10:24 03/26/2023 00:10:24 Discharge Complete 03/26/2023 00:56:24 03/26/2023 00:56:24 03/26/2023 00:56:24 Transfer Complete 03/26/2023 00:56:24 03/26/2023 00:56:24 03/26/2023 00:56:24 ADDRESS: [address] [place] [id number] PHYS DOC NOTES: MEDICAL INFORMATION: Prescriptions Given: Medications to Continue with No Changes Other Medications acetaminophen-hydrocod one ([place] 325 mg-5 mg oral tablet) 1 Tablets By Mouth every 4 hours as needed for pain. Refills: 0. atorvastatin (atorvastatin 20 mg Tab) 1 Tablets By Mouth every day. azithromycin (Zithromax) 250 Milligram By Mouth. brompheniramine/dextro methorphan/PSE (Bromfed DM oral syrup) 5 Milliliter By Mouth 4 times a day as needed for cough and congestion. Refills: 0. cyclobenzaprine (cyclobenzaprine 10 mg Tab) 1 Tablets By Mouth 3 times a day as needed Muscle pain. Refills: 0. lisinopril 20 Milligram By Mouth every day. naproxen (Naprosyn 500 mg Tab) 1 Tablets By Mouth 2 times a day as needed for pain. Refills: 0. naproxen (Naprosyn 500 mg Tab) 1 Tablets By Mouth 2 times a day as needed for pain. Refills: 0. naproxen (naproxen 500 mg oral enteric coated tablet) 1 Tablets By Mouth 2 times a day as needed Pain. Refills: 0. omeprazole (omeprazole 20 mg Cap-DR) 1 Capsules By Mouth every day. ondansetron (Zofran ODT 4 mg Tab-Dis) 1 Tablets By Mouth every 8 hours as needed Nausea/Vomiting. Refills: 0. predniSONE (predniSONE 20 mg Tab) 1 Tablets By Mouth As Directed. take two tabs daily for 5 days, then one tab daily for 5 days.. Refills: 0. PATIENT EDUCATION INFORMATION: Instructions: Follow up: DIAGNOSIS: Normal [facility] ED Note-Physicianon 03-26-20 ED Note-Physician Basic Information Time Seen: Donis Taylor DO 03/25/2023 23:56 Chief Complaint Pt arrives to Ed with c/o abodminal pain. C/o weakenss and fatigue. Distestion noted. Bowel sounds x4. Pt states she is still passing flatus and had a BM today. History of Present Illness Patient initially presented to the ED for abdominal pain and weakness. Triage orders were placed by nursing staff and are noted. Prior to being evaluated by myself or any other provider the patient eloped from the ED. Physical Exam Vitals & Measurements T: 36.7 ?C(Oral) HR: 84(Peripheral) RR: 16 BP: 121/69 SpO2: 97% HT: 160.02 cm WT: 94 kg BMI: 36.71 Assessment/Plan Ordered: Automated Diff Basic Metabolic Panel Beta hCG Qual CBC w/ Auto Diff eGFR Hepatic Function Panel Lipase Level UA With Cult Reflex Disposition Plan Discharge Prescription List Prescriptions No active prescription medications Follow-up No qualifying data available Problem List/Past Medical History Ongoing Asymptomatic microscopic hematuria BMI 33.0-33.9,adult Cystitis Dysuria Smoker Stress incontinence Umbilical hernia Historical Hypertension Procedure/Surgical History Bilateral tubal ligation. Medications Inpatient No active inpatient medications Home atorvastatin 20 mg Tab, 20 mg= 1 tab(s), Oral, Daily, Not taking: states she is not taking any daily meds at this time. Bromfed DM oral syrup, 5 mL, Oral, QID, PRN, Not taking: states she is not taking any daily meds at this time. cyclobenzaprine 10 mg Tab, 10 mg= 1 tab(s), Oral, TID, PRN, Not taking: states she is not taking any daily meds at this time. lisinopril, 20 mg, Oral, Daily, Not taking: states she is not taking any daily meds at this time. Naprosyn 500 mg Tab, 500 mg= 1 tab(s), Oral, BID, PRN Naprosyn 500 mg Tab, 500 mg= 1 tab(s), Oral, BID, PRN, Not taking: states she is not taking any daily meds at this time. naproxen 500 mg oral enteric coated tablet, 500 mg= 1 tab(s), Oral, BID, PRN, Not taking: states she is not taking any daily meds at this time. [place] 325 mg-5 mg oral tablet, 1 tab(s), Oral, q4hr, PRN, Not taking: states she is not taking any daily meds at this time. omeprazole 20 mg Cap-DR, 20 mg= 1 cap(s), Oral, Daily, Not taking: states she is not taking any daily meds at this time. predniSONE 20 mg Tab, 20 mg= 1 tab(s), Oral, As Directed, Not taking: states she is not taking any daily meds at this time. Zithromax, 250 mg, Oral, Not taking: states she is not taking any daily meds at this time. Zofran ODT 4 mg Tab-Dis, 4 mg= 1 tab(s), Oral, q8hr, PRN, Not taking: states she is not taking any daily meds at this time. Allergies Dilaudid (Unknown) cefaclor (Unknown risk of deliberate self harm) morphine (Unknown risk of deliberate self harm) penicillins (Hives) Social History Alcohol - Denies Alcohol Use, 09/09/2022 Substance Abuse - Denies Substance Abuse, 09/09/2022 Previous treatment: None., 02/07/2018 Tobacco - High Risk, 09/09/2022 10 or more cigarettes (1/2 pack or more)/day in last 30 days Tobacco Use:., 12/05/2021 Smoker, current status unknown Tobacco Use:. Cigarettes, Yes, 01/15/2020 Lab Results WBC: 9.7 E9/L (03/25/23 22:43:00) RBC: 4.6 E12/L (03/25/23 22:43:00) HGB: 13.2 gm/dL (03/25/23 22:43:00) Hct: 39.1 % (03/25/23 22:43:00) MCV: 85.3 fL (03/25/23 22:43:00) MCH: 28.8 pg (03/25/23 22:43:00) MCHC: 33.8 gm/dL (03/25/23 22:43:00) RDW: 15.3 % High (03/25/23 22:43:00) Platelet: 413 E9/L (03/25/23 22:43:00) MPV: 7.6 fL (03/25/23 22:43:00) Neutro Auto: 70 % (03/25/23 22:43:00) Lymph Auto: 20.6 % (03/25/23 22:43:00) [place] Auto: 7.1 % (03/25/23 22:43:00) Eos Auto: 1.6 % (03/25/23 22:43:00) Basophil Auto: 0.7 % (03/25/23 22:43:00) Neutro Absolute: 6.8 E9/L (03/25/23 22:43:00) Lymph Absolute: 2 E9/L (03/25/23 22:43:00) [place] Absolute: 0.7 E9/L (03/25/23 22:43:00) Eos Absolute: 0.2 E9/L (03/25/23 22:43:00) Basophil Absolute: 0.1 E9/L (03/25/23 22:43:00) Glucose Lvl: 92 mg/dL (03/25/23 22:43:00) BUN: 10 mg/dL (03/25/23 22:43:00) Creatinine: 0.7 mg/dL (03/25/23 22:43:00) eGFR: >60 (03/25/23 22:43:00) BUN/Creat Ratio: 14 (03/25/23 22:43:00) Sodium Lvl: 138 mmol/L (03/25/23 22:43:00) Potassium Lvl: 4 mmol/L (03/25/23 22:43:00) Chloride: 105 mmol/L (03/25/23 22:43:00) CO2: 24 mmol/L (03/25/23 22:43:00) AGAP: 13 mEq/L (03/25/23 22:43:00) Calcium Lvl: 9.3 mg/dL (03/25/23 22:43:00) Alk Phos: 85 Int._Unit/L (03/25/23 22:43:00) ALT: 20 Int._Unit/L (03/25/23 22:43:00) AST: 17 Int._Unit/L (03/25/23 22:43:00) Total Protein: 7.1 gm/dL (03/25/23 22:43:00) Albumin Lvl: 4.3 gm/dL (03/25/23 22:43:00) Globulin: 2.8 gm/dL (03/25/23 22:43:00) A/G Ratio: 1.5 (03/25/23 22:43:00) Bili Total: 0.3 mg/dL (03/25/23 22:43:00) Bili Direct: 0.2 mg/dL (03/25/23 22:43:00) Bili Indirect: 0.3 mg/dL (03/25/23 22:43:00) Lipase Lvl: 74 unit/L High (03/25/23 22:43:00) UA Spec Desc: Clean Catch (03/26/23 00:27:00) UA Color: Winn (more content not included)... Normal [facility] Comment on above: Result Comment: Elec tronically Signed By: Donis Taylor DO\.br\Date and Time Signed: 03/26/23 00:54 EST ED Patient Education Noteon 03-26-2023 ED Patient Education Note Normal [facility] ED Patient Summaryon 023 ED Patient Summary [place] [id number] Patient Discharge Instructions Person Information Name: GIOVANNA STREETER Age: 47 Years Arrival Date: 03/25/2023 21:51:43 Discharge Diagnosis: Primary Care Physician: REBECCA NAVAS CNP Provider Information Primary Provider: Donis Taylor DO Advanced Cigarette Lighter Repairer:None The exam and treatment you received in the Emergency Department were for an urgent problem and are not intended as complete care. It is important that you follow up with a doctor, nurse practitioner, or physician?s medical assistant float for ongoing care. If your symptoms become worse or you do not improve as expected and you are unable to reach your usual health care provider, you should return to the Emergency Department. We are available 24 hours a day. GIOVANNA STREETER has been given the following list of patient education materials, prescriptions and follow-up instructions: Follow-up Instructions: In the event that this physician does not participate in your insurance network, please consult with your insurance company to find a nearby participating provider. Patient Education Materials: A MESSAGE TO ALL PATIENTS REGARDING OPIOIDS PRESCRIPTION OPIOIDS: WHAT YOU NEED TO KNOW Prescription opioids can be used to help relieve rqlthjif-vv-mzkeix pain and are often prescribed following a surgery or injury, or for certain health conditions. These medications can be an important part of the treatment but also come with serious risks. It is important to work with your healthcare provider to make sure you are getting the safest, most effective care. WHAT ARE THE RISKS AND SIDE EFFECTS OF OPIOID USE? Prescription opioids carry serious risks of addiction and overdose, especially with prolonged use. An opioid overdose, often marked by slowed breathing, can cause sudden . The use of prescription opioids can have a number of side effects as well, even when taken as directed: ? Tolerance?meaning you might need to take more of the medication for the same pain relief ? Physical dependence?meaning you have symptoms of withdrawal when a medication is stopped ? Increased sensitivity to pain ? Constipation ? Nausea, vomiting, and dry mouth ? Sleepiness and dizziness ? Confusion ? Depression ? Low levels of testosterone that can result in lower sex drive, energy, and strength ? Itching and sweating RISKS ARE GREATER WITH: ? History of drug misuse, substance use disorder, or overdose ? Mental health conditions (such as depression or anxiety) ? Sleep apnea ? Older age (65 years and older) ? Avoid alcohol while taking prescription opioids. Also, unless specifically advised by your health care provider, medications to avoid include: ? Benzodiazepines (such as Xanax or Valium) ? Muscle relaxants (such as Soma or Flexeril) ? Hypnotics (such as Ambien or Lunesta) ? Other prescription opioids KNOW YOUR OPTIONS Talk to your health care provider about ways to manage your pain that don?t involve prescription opioids. Some of these options may actually work better and have fewer risks and side effects. Options may include: ? Pain relievers such as acetaminophen, ibuprofen, and naproxen ? Some medication that are also used for depression or seizures ? Physical therapy and exercise ? Cognitive behavioral therapy, a psychological, goal-directed approach, in which patients learn how to modify physical, behavioral, and emotional triggers of pain and stress. IF YOU ARE PRESCRIBED OPIOIDS FOR PAIN: ? Never take opioids in greater amounts or more often than prescribed. ? Follow up with your primary health care provider. o Work together to create a plan on how to manage your pain. o Talk about ways to help manage your pain that don?t involve prescription opioids. o Talk about any and all concerns and side effects. ? Help prevent misuse and abuse o Never sell or share prescription opioids. o Never use another person?s prescription opioids. ? Store prescription opioids in a secure place and out of reach of others (this may include visitors, children, friends, and family). ? Safely dispose of unused prescription opioids: Find your community drug take-back program or your pharmacy mail-back program, or flush them down the toilet, following guidance from the Food and Drug Administration (www.fda.gov/Drugs/Res ourcesForYou). ? Visit www.cdc.gov/drugoverdo se to learn about the risks of opioids abuse and overdose. ? If you believe you may be struggling with addiction, tell your health care provider and ask for guidance or call [facility]?S National Helpline at 1-048-364-RBKH. h Source: [place] Department of Health and Human Services/Center for Disease Control & Prevention [facility] Medications Given: Medication Dose Route No medications found. (more content not included)... Normal [facility] UA With Cult Reflexon 2022 Bilirubin Ql (U) Negative Normal Negative [facility] Comment on above: Performed By: #### 1 [id number] #### [facility] [address] [place] [address] Clarity (U) SL CLOUDY Invalid Interpretation Code [facility] Comment on above: Performed By: #### 1 [id number] #### [facility] [address] [place] [address] Color (U) YELLOW Normal Yellow [facility] Comment on above: Performed By: #### 1 [id number] #### [facility] [address] [place] [address] Epithelial cells.squamous LM.HPF (Urine sed) [#/Area] 0-2 Normal 0-2 [facility] Comment on above: Performed By: #### 1 [id number] #### [facility] [address] [place] [address] Glucose Test strip (U) [Mass/Vol] Negative Normal Negative [facility] Comment on above: Performed By: #### 1 [id number] #### [facility] [address] [place] [address] Hemoglobin Ql (U) 1+ Abnormal Negative [facility] Comment on above: Performed By: #### 1 [id number] #### [facility] [address] [place] [address] Ketones (U) [Mass/Vol] Negative Normal Negative [facility] Comment on above: Performed By: #### 1 [id number] #### [facility] [address] [place] [address] Spiro.plasma/Spiro.R BC (Bld) [Mass ratio] 0-3 Normal 0-3 [facility] Comment on above: Performed By: #### 1 [id number] #### [facility] [address] [place] [address] Nitrite Ql (U) Negative Normal Negative [facility] Comment on above: Performed By: #### 1 [id number] #### [facility] [address] [place] [address] pH (U) 6.5 [pH] Invalid Interpretation Code 5.0-9.0 [facility] Comment on above: Performed By: #### 1 [id number] #### [facility] [address] [place] [address] Protein (U) [Mass/Vol] Negative Normal Negative [facility] Comment on above: Performed By: #### 1 [id number] #### [facility] [address] [place] [address] Specific gravity (U) [Rel density] 1.015 Invalid Interpretation Code 1.005-1.030 [facility] Comment on above: Performed By: #### 1 [id number] #### [facility] [address] [place] [address] Type of Urine collection method Clean Catch Normal [facility] Comment on above: Performed By: #### 1 [id number] #### [facility] [address] [place] [address] Urobilinogen Qn (U) 0.2 {Malachi'U}/dL Normal 0.0-1.0 [facility] Comment on above: Performed By: #### 1 [id number] #### [facility] [address] [place] [address] WBC Auto Ql (U) Negative Normal Negative [facility] Comment on above: Performed By: #### 1 [id number] #### [facility] [address] [place] [address] WBC LM.HPF (Urine sed) [#/Area] 0-5 Normal 0-5 [facility] Comment on above: Performed By: #### 1 [id number] #### [facility] [address] [place] [address] URINALYSISOrdered By: Ganesh Mandujano on 03-26-2023 Bilirubin Ql (U) Negative (03/26/23 12:27 AM) Normal Negative [facility] UA Auto SS Clarity (U) SL CLOUDY Invalid Interpretation Code [facility] UA Auto SS Color (U) Yellow (03/26/23 12:27 AM) Normal Yellow [facility] UA Auto SS Epithelial cells.squamous LM.HPF (Urine sed) [#/Area] 0-2 /HPF Normal 0-2/HPF [facility] UA Aut o SS Glucose Test strip (U) [Mass/Vol] Negative (03/26/23 12:27 AM) Normal Negative [facility] UA Auto SS Hemoglobin Ql (U) 1+ *ABN* (03/26/23 12:27 AM) Invalid Interpretation Code Negative [facility] UA Auto SS Ketones (U) [Mass/Vol] Negative (03/26/23 12:27 AM) Normal Negative [facility] UA Auto SS Spiro.plasma/Spiro.R BC (Bld) [Mass ratio] 0-3 /HPF Normal 0-3/HPF [facility] UA Au to SS Nitrite Ql (U) Negative (03/26/23 12:27 AM) Normal Negative [facility] UA Auto SS pH (U) 6.5 *NA* (03/26/23 12:27 AM) Invalid Interpretation Code 5.0 - 9.0 [facility] UA Auto SS Protein (U) [Mass/Vol] Negative (03/26/23 12:27 AM) Normal Negative [facility] UA Auto SS Specific gravity (U) [Rel density] 1.015 *NA* (03/26/23 12:27 AM) Invalid Interpretation Code 1.005 - 1.030 [facility] UA Auto SS UA Spec Desc Clean Catch (03/26/23 12:27 AM) Normal [facility] UA Auto SS Urobilinogen Qn (U) 0.5617770 {Malachi'U}/dL Normal 0.0 - 1.0 EU/dL [facility] UA Auto SS WBC Auto Ql (U) Negative (03/26/23 12:27 AM) Normal Negative [facility] UA Auto SS WBC LM.HPF (Urine sed) [#/Area] 0-5 /HPF Normal 0-5/HPF [facility] UA Auto SS Auto Diffon 03-25-2023 Basophils/100 WBC (Bld) 0.7 % Normal 0.0-2.0 [facility] Comment on above: Order Comment: Order Added by Discern Expert. Performed By: #### 1 [id number], 1751754, 9840894, 47780099, 3825808, 7323411, 8893356 ####[facility] [address] [place] [address] Basophils/Leukocytes Auto (Bld) [Pure # fraction] 0.1 E9/L Normal 0.0-0.2 [facility] Comment on above: Order Comment: Order Added by Discern Expert. Performed By: #### 1 [id number], 2988643, 3277565, 10003162, 1180524, 5378124, 4769085 ####[address] [address] Eosinophils/100 WBC (Bld) 1.6 % Normal 0.0-8.0 [facility] Comment on above: Order Comment: Order Added by Mackenzie Expert. Performed By: #### 1 [id number], 0616257, 1138143, 94008708, 2733709, 8003837, 4743385 ####[address] [address] Eosinophils/Leukocytes Auto (Bld) [Pure # fraction] 0.2 E9/L Normal 0.0-0.5 [facility] Comment on above: Order Comment: Order Added by Discern Expert. Performed By: #### 1 4197655, 7745849, 9864771, 18081280, 1645870, 9610584, 6586829 ####[address] [address] Lymphocytes/100 WBC (Bld) 20.6 % Normal 14.0-50.0 [facility] Comment on above: Order Comment: Order Added by Mackenzie Expert. Performed By: #### 1 9917314, 1790611, 8677590, 01083755, 7071217, 3155971, 9362559 ####[place] [address] [place] [address] Lymphocytes/Leukocytes Auto (Bld) [Pure # fraction] 2.0 E9/L Normal 1.0-4.0 [facility] Comment on above: Order Comment: Order Added by Discern Expert. Performed By: #### 1 8140510, 2338149, 3994029, 80532317, 8558505, 5238287, 3901124 ####[address] [address] Monocytes/100 WBC (Bld) 7.1 % Normal 4.0-14.0 [facility] Comment on above: Order Comment: Order Added by Discern Expert. Performed By: #### 1 9655445, 1761461, 4929279, 38217808, 2923955, 7076709, 4394980 ####[address] [address] Monocytes/Leukocytes Auto (Bld) [Pure # fraction] 0.7 E9/L Normal 0.2-1.0 [facility] Comment on above: Order Comment: Order Added by Mackenzie Expert. Performed By: #### 1 1222720, 0397578, 8587436, 17961526, 8141592, 9585339, 6846248 ####[address] [address] Neutrophils/100 WBC (Bld) 70.0 % Normal 36.0-75.0 [facility] Comment on above: Order Comment: Order Added by Discern Expert. Performed By: #### 1 2610266, 3757459, 4735094, 76077029, 1199091, 5890772, 5810184 ####[place] [address] [place] [address] Neutrophils/Leukocytes Auto (Bld) [Pure # fraction] 6.8 E9/L Normal 2.0-7.5 [facility] Comment on above: Order Comment: Order Added by Mackenzie Expert. Performed By: #### 1 0382673, 5279234, 5204231, 28723559, 7235567, 7547015, 4246714 ####[facility] [address] [place] [address] B hCG Qualon 03-25-2023 Beta HCG ( test) Ql Negative Normal [facility] Comment on above: Performed By: #### 1 1401263, 2236155, 2653172, 35532565, 2642066, 3920360, 7523031 ####[facility] [address] [place] [address] BMPon 03-25-2023 Anion gap [Moles/Vol] 13 mmol/L Normal 6-16 [facility] Comment on above: Performed By: #### 1 6304974, 4362007, 6279978, 77597487, 8484583, 2606685, 7485382 ####[facility] [address] [place] [address] BUN/Creat Ratio 14 No Units Normal 10-20 [facility] Comment on above: Performed By: #### 1 7776136, 6896254, 7045808, 57732585, 7161660, 6597424, 6977286 ####[facility] [address] [place] [address] Calcium [Mass/Vol] 9.3 mg/dL Normal 8.9-11.1 [facility] Comment on above: Performed By: #### 1 3176572, 1337067, 6714803, 74155625, 5142046, 5569655, 1044494 ####[facility] [address] [place] [address] Chloride [Moles/Vol] 105 mmol/L Normal 101-111 [facility] Comment on above: Performed By: #### 1 1916522, 5220113, 2683308, 28754648, 9856510, 8707826, 4141948 ####[facility] [address] [place] [address] CO2 [Moles/Vol] 24 mmol/L Normal 21-31 [facility] Comment on above: Performed By: #### 1 7727729, 5339086, 5642715, 15876206, 5807934, 5861339, 5492036 ####[facility] [address] [place] [address] Creatinine [Mass/Vol] 0.7 mg/dL Normal 0.5-1.3 [facility] Comment on above: Performed By: #### 1 9035049, 6273556, 2157598, 74027868, 7138966, 1467536, 4954412 ####[facility] [address] [place] [address] Glucose [Mass/Vol] 92 mg/dL Normal 55-199 [facility] Comment on above: Performed By: #### 1 9373589, 7310238, 3964874, 07982575, 3836707, 9065173, 5270696 ####[facility] [address] [place] [address] Potassium [Moles/Vol] 4.0 mmol/L Normal 3.5-5.3 [facility] Comment on above: Performed By: #### 1 8131497, 7784445, 7620177, 84604467, 7562584, 6667630, 4855675 ####[facility] [address] [place] [address] Sodium [Moles/Vol] 138 mmol/L Normal 135-145 [facility] Comment on above: Performed By: #### 1 8502145, 3679493, 0713447, 07585114, 7630005, 8061704, 7538397 ####[facility] [address] [place] [address] Urea nitrogen [Mass/Vol] 10 mg/dL Normal 5-21 [facility] Comment on above: Performed By: #### 1 1861569, 7774778, 5327892, 87857929, 9347626, 0989352, 0515024 ####[facility] [address] [place] [address] CBC w/ Auto Diffon 3 Erythrocyte distribution width (RBC) [Ratio] 15.3 % High 10.9-14.2 [facility] Comment on above: Performed By: #### 1 9701774, 8651695, 1443413, 47852654, 6579788, 8910623, 3562038 #### [facility] [address] [place] [address] Hematocrit (Bld) [Volume fraction] 39.1 % Normal 34.0-46.0 [facility] Comment on above: Performed By: #### 1 6939777, 0884994, 7326261, 69652171, 7516306, 8564694, 4285291 #### [facility] [address] [place] [address] Hemoglobin (Bld) [Mass/Vol] 13.2 g/dL Normal 12.0-16.0 [facility] Comment on above: Performed By: #### 1 4326245, 7190392, 6959265, 52905224, 1222411, 3970120, 7288926 #### [facility] [address] [place], [place] [address] MCH (RBC) [Entitic mass] 28.8 pg Normal 27.0-34.0 [facility] Comment on above: Performed By: #### 1 7694410, 7763416, 5462390, 46061313, 3599228, 1832293, 7705739 #### [facility] [address] [place] [address] MCHC (RBC) [Mass/Vol] 33.8 g/dL Normal 31.4-36.0 [facility] Comment on above: Performed By: #### 1 9989715, 7620746, 7776020, 03647909, 7075107, 3895126, 6391133 #### [facility] [address] [place] [address] MCV (RBC) [Entitic vol] 85.3 fL Normal 80.0-100.0 [facility] Comment on above: Performed By: #### 1 9524620, 7321916, 3494948, 60937216, 0967224, 7462466, 6696067 #### [facility] [address] [place] [address] Platelet mean volume (Bld) [Entitic vol] 7.6 fL Normal 6.4-10.8 [facility] Comment on above: Performed By: #### 1 9935499, 3960994, 9271861, 12162530, 6253514, 6796683, 3745310 #### [facility] [address] [place] [address] Platelets (Bld) [#/Vol] 413.0 E9/L Normal 150.0-500.0 [facility] Comment on above: Performed By: #### 1 9061792, 3424013, 8098819, 20758948, 2944613, 1636830, 3553680 #### [facility] [address] [place] [address] RBC (Bld) [#/Vol] 4.6 E12/L Normal 4.3-5.9 [facility] Comment on above: Performed By: #### 1 6813002, 1874953, 3185758, 84880812, 3166038, 9827204, 4257228 #### [facility] [address] [place] [address] WBC corrected for nucl RBC Auto (Bld) [#/Vol] 9.7 E9/L Normal 4.0-11.0 [facility] Comment on above: Performed By: #### 1 6660913, 6166415, 3422187, 68742714, 3121555, 0517991, 3630830 #### [facility] [address] [place] [address] CHEMISTRYOrdered By: SYSTEM SYSTEM on 03-25-2023 Albumin [Mass/Vol] 4.3 g/dL Normal 3.3 - 5.0 gm/dL [facility] Albumin/Globulin [Mass ratio] 1.5 {ratio} Normal 1.1 - 2.2 [facility] Alk Phos 85 [iU]/d Normal 21 - 98 Int._Unit/L [facility] ALT 20 [iU]/d Normal 6 - 46 Int._Unit/L [facility] Anion gap [Moles/Vol] 13 mmol/L Normal 6 - 16 mEq/L [facility] AST 17 [iU]/d Normal 5 - 43 Int._Unit/L [facility] Bili Indirect 0.3 mg/dL Normal 0.1 - 0.9 mg/dL [facility] Bili Total 0.3 mg/dL Normal 0.0 - 1.1 mg/dL [facility] Calcium [Mass/Vol] 9.3 mg/dL Normal 8.9 - 11. 1 mg/dL [facility] Chloride [Moles/Vol] 105 mmol/L Normal 101 - 1 11 mmol/L [facility] CO2 [Moles/Vol] 24 mmol/L Normal 21 - 31 mmol/L [facility] Creatinine [Mass/Vol] 0.7 mg/dL Normal 0.5 - 1.3 mg/dL [facility] eGFR mL/min/1.73 m2 Normal >=59mL/min/ 1.73 m2 [facility] Globulin (S) [Mass/Vol] 2.8 g/dL Normal 1.4 - 4.0 gm/dL [facility] Glucose [Mass/Vol] 92 mg/dL Normal 55 - 199 mg/dL [facility] Lipase Lvl 74 unit/L High 13 - 58 unit/L [facility] Potassium [Moles/Vol] 4.0 mmol/L Normal 3.5 - 5.3 mmol/L [facility] Protein [Mass/Vol] 7.1 g/dL Normal 6.0 - 7.8 gm/dL [facility] Sodium [Moles/Vol] 138 mmol/L Normal 135 - 145 mmol/L [facility] Urea nitrogen [Mass/Vol] 10 mg/dL Normal 5 - 21 mg/dL [facility] Urea nitrogen/Creatinine [Mass ratio] 14 mg/mg Normal 10 - 20 [facility] CHEMISTRYOrdered By: Ganesh dollolaaj on 03-25-2023 Bili Direct 0.2 mg/dL Normal 0.0 - 0.4 mg/dL [facility] Chem S Consent for Treatmenton 03-02 Consent for Treatment [id number]#1.0 0TIFF Normal [facility] HEMATOLOGYOrdered By: SYSTEM SYSTEM on 03-25-2023 Basophils/100 WBC (Bld) 0.7 % Normal 0.0 - 2.0 % [facility] HemeAutoSS Basophils/Leukocytes Auto (Bld) [Pure # fraction] 0.1 E9/L Normal 0.0 - 0.2 E9/L [facility] HemeAutoSS Eosinophils/100 WBC (Bld) 1.6 % Normal 0.0 - 8.0 % [facility] HemeAutoSS Eosinophils/Leukocytes Auto (Bld) [Pure # fraction] 0.2 E9/L Normal 0.0 - 0.5 E9/L [facility] HemeAutoSS Lymphocytes/100 WBC (Bld) 20.6 % Normal 14.0 - 50.0 % [facility] HemeAutoSS Lymphocytes/Leukocytes Auto (Bld) [Pure # fraction] 2.0 E9/L Normal 1.0 - 4.0 E9/L [facility] HemeAutoSS Monocytes/100 WBC (Bld) 7.1 % Normal 4.0 - 14.0 % [facility] HemeAutoSS Monocytes/Leukocytes Auto (Bld) [Pure # fraction] 0.7 E9/L Normal 0.2 - 1.0 E9/L [facility] Neutrophils/100 WBC (Bld) 70.0 % Normal 36.0 - 75.0 % [facility] Neutrophils/Leukocytes Auto (Bld) [Pure # fraction] 6.8 E9/L Normal 2.0 - 7.5 E9/L [facility] HEMATOLOGYOrdered By: Ganesh Mandujano on 03-25-2023 Erythrocyte distribution width (RBC) [Ratio] 15.3 % High 10.9 - 14.2 % [facility] Hematocrit (Bld) [Volume fraction] 39.1 % Normal 34.0 - 46.0 % [facility] Hemoglobin (Bld) [Mass/Vol] 13.2 g/dL Normal 12.0 - 16.0 gm/dL [facility] MCH (RBC) [Entitic mass] 28.8 pg Normal 27. 0 - 34.0 pg [facility] MCHC (RBC) [Mass/Vol] 33.8 g/dL Normal 31.4 - 36.0 gm/dL [facility] MCV (RBC) [Entitic vol] 85.3 fL Normal 80.0 - 100.0 fL [facility] Platelet mean volume (Bld) [Entitic vol] 7.6 fL Normal 6.4 - 10.8 fL [facility] Platelets (Bld) [#/Vol] 413.0 E9/L Normal 150. 0 - 500.0 E9/L [facility] RBC (Bld) [#/Vol] 4.6 E12/L Normal 4.3 - 5.9 E12/L [facility] WBC corrected for nucl RBC Auto (Bld) [#/Vol] 9.7 E9/L Normal 4.0 - 11.0 E9/L [facility] Hep Func Panelon 03-25-2023 Bili Direct 0.2 mg/dL Normal 0.0-0.4 [facility] Comment on above: Performed By: #### 1 [id number], [id number], 7383911, [id number], 5153725, 3018539, 8955132 ####[facility] [address] [place] [address] Albumin [Mass/Vol] 4.3 g/dL Normal 3.3-5.0 [facility] Comment on above: Performed By: #### 1 [id number], 0491340, 4809547, 23263901, 1824144, 5843656, 3199037 ####[facility] [address] [place] [address] Albumin/Globulin [Mass ratio] 1.5 {ratio} Normal 1.1-2.2 [facility] Comment on above: Performed By: #### 1 [id number], 6007657, 7055799, [id number], 3284480, 0639781, 9620456 ####[facility] [address] [place] [address] Alk Phos 85 Int._Unit/L Normal 21-98 [facility] Comment on above: Performed By: #### 1 [id number], 1497580, 7229568, 25163120, 2987897, 2919805, 5155467 ####[facility] [address] [place] [address] ALT 20 Int._Unit/L Normal 6-46 [facility] Comment on above: Performed By: #### 1 [id number], 2885259, 4947110, 43529852, 8083809, 4430807, 5138801 ####[facility] [address] [place] [address] AST 17 Int._Unit/L Normal 5-43 [facility] Comment on above: Performed By: #### 1 [id number], 5151114, 6879917, 28305288, 3922240, 2159621, 8649312 ####[address] [place] [address] Bili Indirect 0.3 mg/dL Normal 0.1-0.9 [facility] Comment on above: Performed By: #### 1 2955485, 1010775, 8072021, 56356582, 7185996, 2611477, 7307934 ####[address] [address] Bili Total 0.3 mg/dL Normal 0.0-1.1 [facility] Comment on above: Performed By: #### 1 [id number], 2519896, 0325035, 05395547, 5640597, 9465393, 7348285 ####[address] [place] [address] Globulin (S) [Mass/Vol] 2.8 g/dL Normal 1.4-4.0 [facility] Comment on above: Performed By: #### 1 [id number], 7514603, 2275227, 44397583, 0000810, 1502909, 3614372 ####[address] [place] [address] Protein [Mass/Vol] 7.1 g/dL Normal 6.0-7.8 [facility] Comment on above: Performed By: #### 1 4897083, 9081015, 5370646, 82399780, 9026594, 8452703, 4925156 ####[address] [place] [address] Lipase Levelon 03-25-2023 Lipase Lvl 74 unit/L High 13-58 [facility] Comment on above: Performed By: #### 1 [id number], 2626665, 9305857, 99812834, 9095306, 7811599, 7902814 ###[facility] [address] [place] [address] SEROLOGYOrdered By: Ganesh stein on 03-25-2023 Beta HCG ( test) Ql Negative (03/25/23 10:43 PM) Normal [facility] Man Sero eGFRon 03-25-2023 GFR/1.73 sq M.predicted among non-blacks MDRD (S/P/Bld) [Vol rate/Area] mL/min/{1.73_m2} Normal >=59 [facility] Comment on above: Order Comment: Order added by Discern Expert. Performed By: #### 1 [id number], 2114404, 5954372, 62101187, 5985071, 7484185, 7438781 ####[facility] [address] [place] [address] Basophils Auto (Bld) [#/Vol] Ordered By: Shorty Marinelli on 03-24-2023 Basophils (Bld) [#/Vol] 0.0 10*3/uL 0.0-0.2 [facility] Basophils/100 WBC Auto (Bld) Ordered By: Shorty Marinelli on 03-24-2023 Basophils/100 WBC (Bld) 0.6 % . [facility] Calcium [Mass/volume] in Ser um or PlasmaOrdered By: Shorty Marinelli on 03-24-2023 Calcium [Mass/Vol] 9.2 mg/dL 8.6-10.3 [facility] Carbon dioxide, total [Moles /volume] in Serum or PlasmaOrdered By: Shorty Marinelli on 03-24-2023 CO2 [Moles/Vol] 23.7 mmol/L 21.0-31.0 [facility] Chloride [Moles/volume] in S jett or PlasmaOrdered By: Shorty Marinelli on 03-24-2023 Chloride [Moles/Vol] 107 mmol/L 98-107 [facility] Creatine kinase [Enzymatic a ctivity/volume] in Serum or PlasmaOrdered By: Shorty Marinelli on 03-24-2023 CK [Catalytic activity/Vol] 137 U/L 30-223 [facility] Creatinine [Mass/volume] in Serum or PlasmaOrdered By: Shorty Marinelli on 03-24-2023 Creatinine [Mass/Vol] 0.64 mg/dL 0.60-1.20 [facility] Eosinophils Auto (Bld) [#/Vo l]Ordered By: Shorty Marinelli on 03-24-2023 Eosinophils (Bld) [#/Vol] 0.2 10*3/uL 0.0-0.45 [facility] Eosinophils/100 WBC Auto (Bl d)Ordered By: Shorty Marinelli on 03-24-2023 Eosinophils/100 WBC (Bld) 2.1 % . [facility] Erythrocyte distribution wid th Auto (RBC) [Ratio]Ordered By: Shorty Marinelli on 03-24-2023 Erythrocyte distribution width (RBC) [Ratio] 15.5 % 11.9-15.3 [facility] Glucose [Mass/volume] in Ser um or PlasmaOrdered By: Shorty Marinelli on 03-24-2023 Glucose [Mass/Vol] 124 mg/dL 70-100 [facility] Hematocrit Auto (Bld) [Volum e fraction]Ordered By: Shorty aMrinelli on 03-24-2023 Hematocrit (Bld) [Volume fraction] 36.5 % 34.0-46.4 [facility] Hemoglobin [Mass/volume] in BloodOrdered By: Shorty Marinelli on 03-24-2023 Hemoglobin (Bld) [Mass/Vol] 12.4 g/dL 11.8-15.4 [facility] Leukocytes [#/volume] correc jacki for nucleated erythrocytes in Blood by Automated counOrdered By: Shorty Marinelli on 03-24-2023 WBC corrected for nucl RBC Auto (Bld) [#/Vol] 8.5 10*3/uL 3.8-11.6 [facility] Lymphocytes Auto (Bld) [#/Vo l]Ordered By: Shorty Marinelli on 03-24-2023 Lymphocytes (Bld) [#/Vol] 2.2 10*3/uL 1.00-4.8 [facility] Lymphocytes/100 WBC Auto (Bl d)Ordered By: Shorty Marinelli on 03-24-2023 Lymphocytes/100 WBC (Bld) 25.3 % . [facility] MCH Auto (RBC) [Entitic mass ]Ordered By: Shorty Marinelli on 03-24-2023 MCH (RBC) [Entitic mass] 29.3 pg 24.7-34.3 [facility] MCHC Auto (RBC) [Mass/Vol]Or dered By: Shorty Marinelli on 03-24-2023 MCHC (RBC) [Mass/Vol] 34.0 g/dL 32.0-35.0 [facility] MCV Auto (RBC) [Entitic vol] Ordered By: Shorty Marinelli on 03-24-2023 MCV (RBC) [Entitic vol] 86.0 fL 80-100 [facility] Monocyte distribution width [Entitic volume] in Blood by AutomatedOrdered By: Shorty Marinelli on 03-24-2023 Monocyte distribution width Auto (Bld) [Entitic vol] 18.38 % 0.00-20.00 [facility] Monocytes Auto (Bld) [#/Vol] Ordered By: Shorty Marinelli on 03-24-2023 Monocytes (Bld) [#/Vol] 0.5 10*3/uL 0.0-0.8 [facility] Monocytes/100 WBC Auto (Bld) Ordered By: Shorty Marinelli on 03-24-2023 Monocytes/100 WBC (Bld) 5.6 % . [facility] Neutrophils Auto (Bld) [#/Vo l]Ordered By: Shorty Marinelli on 03-24-2023 Neutrophils (Bld) [#/Vol] 5.7 10*3/uL 1.8-7.7 [facility] Neutrophils/100 WBC Auto (Bl d)Ordered By: Shorty Marinelli on 03-24-2023 Neutrophils/100 WBC (Bld) 66.4 % . [facility] No Panel InformationOrdered By: Shorty Marinelli on 03-24-2023 > 60.0 mL/Min [facility] N/A [facility] Nucleated erythrocytes [Pres ence] in Blood by Automated countOrdered By: Shorty Marinelli on 03-24-2023 Nucleated RBC Auto Ql (Bld) 0.0 /100{WBC} 0-0.5 [facility] Platelet mean volume Auto (B ld) [Entitic vol]Ordered By: Shorty Marinelli on 03-24-2023 Platelet mean volume (Bld) [Entitic vol] 7.7 fL 6.3-10.7 [facility] Platelets Auto (Bld) [#/Vol] Ordered By: Shorty Marinelli on 03-24-2023 Platelets (Bld) [#/Vol] 387 10*3/uL 150-450 [facility] Potassium [Moles/volume] in Serum or PlasmaOrdered By: Shorty Marinelli on 03-24-2023 Potassium [Moles/Vol] 3.4 mmol/L 3.5-5.1 [facility] RBC Auto (Bld) [#/Vol]Ordere d By: Shorty Marinelli on 03-24-2023 RBC (Bld) [#/Vol] 4.24 10*6/uL 3.60-5.00 [facility] Serum or plasma anion gap de terminationOrdered By: Shorty Marinelli on 03-24-2023 Anion gap [Moles/Vol] 9.7 mmol/L 6.0-15.0 [facility] Sodium [Moles/volume] in Ser um or PlasmaOrdered By: Shorty Marinelli on 03-24-2023 Sodium [Moles/Vol] 137 mmol/L 136-145 [facility] Troponin I.cardiac [Mass/vol ume] in Serum or Plasma by Detection limit <= 0.01 ng/Ordered By: Shorty Marinelli on 03-24-2023 Troponin I.cardiac DL <= 0.01 ng/mL [Mass/Vol] 5.2 pg/mL 0.0-15.0 [facility] Urea nitrogen [Mass/volume] in Serum or PlasmaOrdered By: Shorty Marinelli on 03-24-2023 Urea nitrogen [Mass/Vol] 7 mg/dL 7- [facility] WBC Auto (Bld) [#/Vol]Ordere d By: Shorty Marinelli on 03-24-2023 WBC (Bld) [#/Vol] 8.5 10*3/uL 3.8-11.6 [facility] Alanine aminotransferase [En zymatic activity/volume] in Serum or PlasmaOrdered By: Drew Ba on 03-17-2023 ALT [Catalytic activity/Vol] 24 U/L 7-52 [facility] Albumin [Mass/volume] in Ser um or Plasma by Bromocresol green (BCG) dye binding methoOrdered By: Drew Ba on 03-17-2023 Albumin BCG dye [Mass/Vol] 4.1 g/dL 3.5-5.7 [facility] Alkaline phosphatase [Enzyma tic activity/volume] in Serum or PlasmaOrdered By: Drew Ba on 03-17-2023 ALP [Catalytic activity/Vol] 85 U/L 34-104 [facility] Aspartate aminotransferase [ Enzymatic activity/volume] in Serum or PlasmaOrdered By: Drew Ba on 03-17-2023 AST [Catalytic activity/Vol] 20 U/L 13-39 [facility] Automated erythrocytes count in urine sediment (number/area)Ordered By: Drew Ba on 03-17-2023 RBC Auto (Urine sed) [#/Area] 1-2 [HPF] 0-4 [facility] Automated leukocytes count i n urine sediment (number/area)Ordered By: Drew Ba on 03-17-2023 WBC Auto (Urine sed) [#/Area] None seen [HPF] 0-4 [facility] Basophils Auto (Bld) [#/Vol] Ordered By: Drew Ba on 03-17-2023 Basophils (Bld) [#/Vol] 0.0 10*3/uL 0.0-0.2 [facility] Basophils/100 WBC Auto (Bld) Ordered By: Drew Ba on 03-17-2023 Basophils/100 WBC (Bld) 0.7 % . [facility] Bilirubin Test strip Ql (U)O rdered By: Drew Ba on 03-17-2023 Bilirubin Ql (U) Negative Negative [facility] Bilirubin.direct [Mass/volum e] in Serum or PlasmaOrdered By: Drew Ba on 03-17-2023 Bilirubin.direct [Mass/Vol] 0.10 mg/dL 0.03-0.18 [facility] Bilirubin.total [Mass/volume ] in Serum or PlasmaOrdered By: Drew Ba on 03-17-2023 Bilirubin [Mass/Vol] 0.2 mg/dL 0.3-1.0 [facility] Calcium [Mass/volume] in Ser um or PlasmaOrdered By: Drew Ba on 03-17-2023 Calcium [Mass/Vol] 9.4 mg/dL 8.6-10.3 [facility] Carbon dioxide, total [Moles /volume] in Serum or PlasmaOrdered By: Drew Ba on 03-17-2023 CO2 [Moles/Vol] 24.4 mmol/L 21.0-31.0 [facility] Chloride [Moles/volume] in S jett or PlasmaOrdered By: Drew Ba on 03-17-2023 Chloride [Moles/Vol] 105 mmol/L 98-107 [facility] Color Auto (U)Ordered By: Miguel Angel Ba on 03-17-2023 Color (U) Yellow Yellow [facility] Creatinine [Mass/volume] in Serum or PlasmaOrdered By: Drew Ba on 03-17-2023 Creatinine [Mass/Vol] 0.56 mg/dL 0.60-1.20 [facility] Eosinophils Auto (Bld) [#/Vo l]Ordered By: Drew Ba on 03-17-2023 Eosinophils (Bld) [#/Vol] 0.2 10*3/uL 0.0-0.45 [facility] Eosinophils/100 WBC Auto (Bl d)Ordered By: Drew Ba on 03-17-2023 Eosinophils/100 WBC (Bld) 2.7 % . [facility] Erythrocyte distribution wid th Auto (RBC) [Ratio]Ordered By: Drew Ba on 03-17-2023 Erythrocyte distribution width (RBC) [Ratio] 15.4 % 11.9-15.3 [facility] Fecal occult blood detection by immunochemistryOrdered By: Drew Ba on 03-17-2023 Hemoglobin.gastrointesti nal Ql (Stl) [facility] Globulin Calc (S) [Mass/Vol] Ordered By: Drew Ba on 03-17-2023 Globulin (S) [Mass/Vol] 3.1 g/dL [facility] Glucose [Mass/volume] in Ser um or PlasmaOrdered By: Drew Ba on 03-17-2023 Glucose [Mass/Vol] 101 mg/dL 70-100 [facility] HCG ( test) IA.rapi d Ql (U)Ordered By: Drew Ba on 03-17-2023 HCG ( test) Ql (U) Negative [facility] Hematocrit Auto (Bld) [Volum e fraction]Ordered By: Drew Ba on 03-17-2023 Hematocrit (Bld) [Volume fraction] 36.5 % 34.0-46.4 [facility] Hemoglobin [Mass/volume] in BloodOrdered By: Drew Ba on 03-17-2023 Hemoglobin (Bld) [Mass/Vol] 12.3 g/dL 11.8-15.4 [facility] INR in Platelet poor plasma by Coagulation assayOrdered By: Drew Ba on 03-17-2023 INR Coag (PPP) [Relative time] 1.0 {INR} [facility] Ketones Auto test strip (U) [Mass/Vol]Ordered By: Drew Ba on 03-17-2023 Ketones (U) [Mass/Vol] Negative Negative [facility] Leukocytes [#/volume] correc jacki for nucleated erythrocytes in Blood by Automated counOrdered By: Drew Ba on 03-17-2023 WBC corrected for nucl RBC Auto (Bld) [#/Vol] 7.1 10*3/uL 3.8-11.6 [facility] Lipase [Enzymatic activity/v olume] in Serum or PlasmaOrdered By: Drew Ba on 03-17-2023 Lipase [Catalytic activity/Vol] 68.0 U/L 11.0-82.0 [facility] Lymphocytes Auto (Bld) [#/Vo l]Ordered By: Drew Ba on 03-17-2023 Lymphocytes (Bld) [#/Vol] 2.1 10*3/uL 1.00-4.8 [facility] Lymphocytes/100 WBC Auto (Bl d)Ordered By: Drew Ba on 03-17-2023 Lymphocytes/100 WBC (Bld) 30.0 % . [facility] MCH Auto (RBC) [Entitic mass ]Ordered By: Drew Ba on 03-17-2023 MCH (RBC) [Entitic mass] 28.9 pg 24.7-34.3 [facility] MCHC Auto (RBC) [Mass/Vol]Or dered By: Drew Ba on 03-17-2023 MCHC (RBC) [Mass/Vol] 33.8 g/dL 32.0-35.0 [facility] MCV Auto (RBC) [Entitic vol] Ordered By: Drew Ba on 03-17-2023 MCV (RBC) [Entitic vol] 85.5 fL 80-100 [facility] Monocyte distribution width [Entitic volume] in Blood by AutomatedOrdered By: Drew Ba on 03-17-2023 Monocyte distribution width Auto (Bld) [Entitic vol] 20.72 % 0.00-20.00 [facility] Monocytes Auto (Bld) [#/Vol] Ordered By: Derw Ba on 03-17-2023 Monocytes (Bld) [#/Vol] 0.6 10*3/uL 0.0-0.8 [facility] Monocytes/100 WBC Auto (Bld) Ordered By: Drew Ba on 03-17-2023 Monocytes/100 WBC (Bld) 8.0 % . [facility] Neutrophils Auto (Bld) [#/Vo l]Ordered By: Drew Ba on 03-17-2023 Neutrophils (Bld) [#/Vol] 4.2 10*3/uL 1.8-7.7 [facility] Neutrophils/100 WBC Auto (Bl d)Ordered By: Drew Ba on 03-17-2023 Neutrophils/100 WBC (Bld) 58.6 % . [facility] Nitrite Test strip Ql (U)Ord ered By: Drew Ba on 03-17-2023 Nitrite Ql (U) Negative Negative [facility] No Panel InformationOrdered By: Drew Ba on 03-17-2023 None seen [LPF] 0-8 [facility] > 60.0 mL/Min [facility] 129.93 [facility] Nucleated erythrocytes [Pres ence] in Blood by Automated countOrdered By: Drew Ba on 03-17-2023 Nucleated RBC Auto Ql (Bld) 0.1 /100{WBC} 0-0.5 [facility] Platelet mean volume Auto (B ld) [Entitic vol]Ordered By: Drew Ba on 03-17-2023 Platelet mean volume (Bld) [Entitic vol] 7.8 fL 6.3-10.7 [facility] Platelets Auto (Bld) [#/Vol] Ordered By: Drew Ba on 03-17-2023 Platelets (Bld) [#/Vol] 376 10*3/uL 150-450 [facility] Potassium [Moles/volume] in Serum or PlasmaOrdered By: Drew Ba on 03-17-2023 Potassium [Moles/Vol] 3.7 mmol/L 3.5-5.1 [facility] Protein Auto test strip (U) [Mass/Vol]Ordered By: Drew Ba on 03-17-2023 Protein (U) [Mass/Vol] Negative Negative [facility] Protein [Mass/volume] in Ser um or PlasmaOrdered By: Drew Ba on 03-17-2023 Protein [Mass/Vol] 7.2 g/dL 6.4-8.9 [facility] Prothrombin time (PT)Ordered By: Drew Ba on 03-17-2023 PT Coag (PPP) [Time] 12.0 s 9.0-12.9 [facility] RBC Auto (Bld) [#/Vol]Ordere d By: Drew Ba on 03-17-2023 RBC (Bld) [#/Vol] 4.27 10*6/uL 3.60-5.00 [facility] Serum or plasma albumin/glob ulin mass ratioOrdered By: Drew Ba on 03-17-2023 Albumin/Globulin [Mass ratio] 1.3 {ratio} [facility] Serum or plasma anion gap de terminationOrdered By: Drew Ba on 03-17-2023 Anion gap [Moles/Vol] 13.3 mmol/L 6.0-15.0 [facility] Serum or plasma non-glucuron idated bilirubin measurement (mass/volume)Ordered By: Drew Ba on 03-17-2023 Bilirubin.indirect [Mass/Vol] 0.1 mg/dL [facility] Sodium [Moles/volume] in Ser um or PlasmaOrdered By: Drew Ba on 03-17-2023 Sodium [Moles/Vol] 139 mmol/L 136-145 [facility] Specific gravity Auto test s trip (U) [Rel density]Ordered By: Drew Ba on 03-17-2023 Specific gravity (U) [Rel density] 1.006 1.001-1.030 [facility] Squamous epithelial cells de tection in urine sediment by light microscopyOrdered By: Drew Ba on 03-17-2023 Epithelial cells.squamous LM Ql (Urine sed) 0-1 [HPF] 0-2 [facility] Urea nitrogen [Mass/volume] in Serum or PlasmaOrdered By: Drew Ba on 03-17-2023 Urea nitrogen [Mass/Vol] 10 mg/dL 7-25 [facility] Urine bacteria detection by automated methodOrdered By: Drew Ba on 03-17-2023 Bacteria Auto Ql (U) None seen None Seen [facility] Urine clarity by refractomet ry automatedOrdered By: Drew Ba on 03-17-2023 Clarity Refractometry automated (U) Clear Clear [facility] Urine glucose measurement by automated test strip (mass/volume)Ordered By: Drew Ba on 03-17-2023 Glucose Auto test strip (U) [Mass/Vol] Normal mg/dL Normal [facility] Urine hemoglobin detection b y automated test stripOrdered By: Drew Ba on 03-17-2023 Hemoglobin Auto test strip Ql (U) Trace Negative [facility] Urine leukocyte esterase det ection by automated test stripOrdered By: Drew Ba on 03-17-2023 Leukocyte esterase Auto test strip Ql (U) Negative Negative [facility] Urobilinogen Auto test strip (U) [Mass/Vol]Ordered By: Drew Ba on 03-17-2023 Urobilinogen (U) [Mass/Vol] Normal mg/dL Normal [facility] WBC Auto (Bld) [#/Vol]Ordere d By: Drew Ba on 03-17-2023 WBC (Bld) [#/Vol] 7.1 10*3/uL 3.8-11.6 [facility] pH Auto test strip (U)Ordere d By: Drew Ba on 03-17-2023 pH (U) 6.5 [pH] 5.0-9.0 [facility] Alanine aminotransferase [En zymatic activity/volume] in Serum or PlasmaOrdered By: Dominik Hall on 03-06-2023 ALT [Catalytic activity/Vol] 19 U/L 7-52 [facility] Albumin [Mass/volume] in Ser um or Plasma by Bromocresol green (BCG) dye binding methoOrdered By: Dominik Hall on 03-06-2023 Albumin BCG dye [Mass/Vol] 4.2 g/dL 3.5-5.7 [facility] Alkaline phosphatase [Enzyma tic activity/volume] in Serum or PlasmaOrdered By: Dominik Hall on 03-06-2023 ALP [Catalytic activity/Vol] 76 U/L 34-104 [facility] Aspartate aminotransferase [ Enzymatic activity/volume] in Serum or PlasmaOrdered By: Dominik Hall on 03-06-2023 AST [Catalytic activity/Vol] 17 U/L 13-39 [facility] Automated erythrocytes count in urine sediment (number/area)Ordered By: Dominik Hall on 03-06-2023 RBC Auto (Urine sed) [#/Area] 5-9 [HPF] 0-4 [facility] Automated leukocytes count i n urine sediment (number/area)Ordered By: Dominik Hall on 03-06-2023 WBC Auto (Urine sed) [#/Area] None seen [HPF] 0-4 [facility] Basophils Auto (Bld) [#/Vol] Ordered By: Dominik Hall on 03-06-2023 Basophils (Bld) [#/Vol] 0.1 10*3/uL 0.0-0.2 [facility] Basophils/100 WBC Auto (Bld) Ordered By: Dominik Hall on 03-06-2023 Basophils/100 WBC (Bld) 0.8 % . [facility] Bilirubin Test strip Ql (U)O rdered By: Dominik Hall on 03-06-2023 Bilirubin Ql (U) Negative Negative [facility] Bilirubin.total [Mass/volume ] in Serum or PlasmaOrdered By: Dominik Hall on 03-06-2023 Bilirubin [Mass/Vol] 0.2 mg/dL 0.3-1.0 [facility] Calcium [Mass/volume] in Ser um or PlasmaOrdered By: Dominik Hall on 03-06-2023 Calcium [Mass/Vol] 9.5 mg/dL 8.6-10.3 [facility] Carbon dioxide, total [Moles /volume] in Serum or PlasmaOrdered By: Dominik Hall on 03-06-2023 CO2 [Moles/Vol] 26.7 mmol/L 21.0-31.0 [facility] Chloride [Moles/volume] in S jett or PlasmaOrdered By: Dominik Hall on 03-06-2023 Chloride [Moles/Vol] 102 mmol/L 98-107 [facility] Color Auto (U)Ordered By: Ameya red Isabel on 03-06-2023 Color (U) Yellow Yellow [facility] Creatinine [Mass/volume] in Serum or PlasmaOrdered By: Dominik Hall on 03-06-2023 Creatinine [Mass/Vol] 0.67 mg/dL 0.60-1.20 [facility] Eosinophils Auto (Bld) [#/Vo l]Ordered By: Dominik Hall on 03-06-2023 Eosinophils (Bld) [#/Vol] 0.3 10*3/uL 0.0-0.45 [facility] Eosinophils/100 WBC Auto (Bl d)Ordered By: Dominik Hall on 03-06-2023 Eosinophils/100 WBC (Bld) 3.1 % . [facility] Erythrocyte distribution wid th Auto (RBC) [Ratio]Ordered By: Dominik Hall on 03-06-2023 Erythrocyte distribution width (RBC) [Ratio] 15.0 % 11.9-15.3 [facility] Globulin Calc (S) [Mass/Vol] Ordered By: Dominik Hall on 03-06-2023 Globulin (S) [Mass/Vol] 3.0 g/dL [facility] Glucose [Mass/volume] in Ser um or PlasmaOrdered By: Dominik Hall on 03-06-2023 Glucose [Mass/Vol] 123 mg/dL 70-100 [facility] Hematocrit Auto (Bld) [Volum e fraction]Ordered By: Dominik Hall on 03-06-2023 Hematocrit (Bld) [Volume fraction] 36.1 % 34.0-46.4 [facility] Hemoglobin [Mass/volume] in BloodOrdered By: Dominik Hall on 03-06-2023 Hemoglobin (Bld) [Mass/Vol] 12.3 g/dL 11.8-15.4 [facility] Ketones Auto test strip (U) [Mass/Vol]Ordered By: Dominik Hall on 03-06-2023 Ketones (U) [Mass/Vol] Negative Negative [facility] Leukocytes [#/volume] correc jacki for nucleated erythrocytes in Blood by Automated counOrdered By: Dominik Hlal on 03-06-2023 WBC corrected for nucl RBC Auto (Bld) [#/Vol] 10.2 10*3/uL 3.8-11.6 [facility] Lipase [Enzymatic activity/v olume] in Serum or PlasmaOrdered By: Dominik Hall on 03-06-2023 Lipase [Catalytic activity/Vol] 106.0 U/L 11.0-82.0 [facility] Lymphocytes Auto (Bld) [#/Vo l]Ordered By: Dominik Hall on 03-06-2023 Lymphocytes (Bld) [#/Vol] 2.7 10*3/uL 1.00-4.8 [facility] Lymphocytes/100 WBC Auto (Bl d)Ordered By: Dominik Hall on 03-06-2023 Lymphocytes/100 WBC (Bld) 26.7 % . [facility] MCH Auto (RBC) [Entitic mass ]Ordered By: Dominik Hall on 03-06-2023 MCH (RBC) [Entitic mass] 29.0 pg 24.7-34.3 [facility] MCHC Auto (RBC) [Mass/Vol]Or dered By: Dominik Hall on 03-06-2023 MCHC (RBC) [Mass/Vol] 34.0 g/dL 32.0-35.0 [facility] MCV Auto (RBC) [Entitic vol] Ordered By: Dominik Hall on 03-06-2023 MCV (RBC) [Entitic vol] 85.2 fL 80-100 [facility] Monocyte distribution width [Entitic volume] in Blood by AutomatedOrdered By: Dominik Hall on 03-06-2023 Monocyte distribution width Auto (Bld) [Entitic vol] 20.37 % 0.00-20.00 [facility] Monocytes Auto (Bld) [#/Vol] Ordered By: Dominik Hall on 03-06-2023 Monocytes (Bld) [#/Vol] 0.7 10*3/uL 0.0-0.8 [facility] Monocytes/100 WBC Auto (Bld) Ordered By: Dominik Hall on 03-06-2023 Monocytes/100 WBC (Bld) 6.5 % . [facility] Neutrophils Auto (Bld) [#/Vo l]Ordered By: Dominik Hall on 03-06-2023 Neutrophils (Bld) [#/Vol] 6.4 10*3/uL 1.8-7.7 [facility] Neutrophils/100 WBC Auto (Bl d)Ordered By: Dominik Hall on 03-06-2023 Neutrophils/100 WBC (Bld) 62.9 % . [facility] Nitrite Test strip Ql (U)Ord ered By: Dominik Hall on 03-06-2023 Nitrite Ql (U) Negative Negative [facility] No Panel InformationOrdered By: Dominik Hall on 03-06-2023 None seen [LPF] 0-8 [facility] > 60.0 mL/Min [facility] 112.82 [facility] Nucleated erythrocytes [Pres ence] in Blood by Automated countOrdered By: Dominik Hall on 03-06-2023 Nucleated RBC Auto Ql (Bld) 0.1 /100{WBC} 0-0.5 [facility] Platelet mean volume Auto (B ld) [Entitic vol]Ordered By: Dominik Hall on 03-06-2023 Platelet mean volume (Bld) [Entitic vol] 7.7 fL 6.3-10.7 [facility] Platelets Auto (Bld) [#/Vol] Ordered By: Dominik Hall on 03-06-2023 Platelets (Bld) [#/Vol] 375 10*3/uL 150-450 [facility] Potassium [Moles/volume] in Serum or PlasmaOrdered By: Dominik Hall on 03-06-2023 Potassium [Moles/Vol] 3.6 mmol/L 3.5-5.1 [facility] Protein Auto test strip (U) [Mass/Vol]Ordered By: Dominik Hall on 03-06-2023 Protein (U) [Mass/Vol] Negative Negative [facility] Protein [Mass/volume] in Ser um or PlasmaOrdered By: Dominik Hall on 03-06-2023 Protein [Mass/Vol] 7.2 g/dL 6.4-8.9 [facility] RBC Auto (Bld) [#/Vol]Ordere d By: Dominik Hall on 03-06-2023 RBC (Bld) [#/Vol] 4.24 10*6/uL 3.60-5.00 [facility] Serum or plasma albumin/glob ulin mass ratioOrdered By: Dominik Hall on 03-06-2023 Albumin/Globulin [Mass ratio] 1.4 {ratio} [facility] Serum or plasma anion gap de terminationOrdered By: Dominik Hall on 03-06-2023 Anion gap [Moles/Vol] 11.9 mmol/L 6.0-15.0 [facility] Sodium [Moles/volume] in Ser um or PlasmaOrdered By: Dominik Hall on 03-06-2023 Sodium [Moles/Vol] 137 mmol/L 136-145 [facility] Specific gravity Auto test s trip (U) [Rel density]Ordered By: Dominik Hall on 03-06-2023 Specific gravity (U) [Rel density] 1.012 1.001-1.030 [facility] Squamous epithelial cells de tection in urine sediment by light microscopyOrdered By: Dominik Hlal on 03-06-2023 Epithelial cells.squamous LM Ql (Urine sed) None seen [HPF] 0-2 [facility] Urea nitrogen [Mass/volume] in Serum or PlasmaOrdered By: Dominik Hall on 03-06-2023 Urea nitrogen [Mass/Vol] 14 mg/dL 7-25 [facility] Urine bacteria detection by automated methodOrdered By: Dominik Hall on 03-06-2023 Bacteria Auto Ql (U) None seen None Seen [facility] Urine clarity by refractomet ry automatedOrdered By: Dominik Hall on 03-06-2023 Clarity Refractometry automated (U) Clear Clear [facility] Urine glucose measurement by automated test strip (mass/volume)Ordered By: Dominik Hall on 03-06-2023 Glucose Auto test strip (U) [Mass/Vol] Normal mg/dL Normal [facility] Urine hemoglobin detection b y automated test stripOrdered By: Dominik Hall on 03-06-2023 Hemoglobin Auto test strip Ql (U) 1+ Negative [facility] Urine leukocyte esterase det ection by automated test stripOrdered By: Dominik Hall on 03-06-2023 Leukocyte esterase Auto test strip Ql (U) Negative Negative [facility] Urobilinogen Auto test strip (U) [Mass/Vol]Ordered By: Dominik Hall on 03-06-2023 Urobilinogen (U) [Mass/Vol] Normal mg/dL Normal [facility] WBC Auto (Bld) [#/Vol]Ordere d By: Dominik Hall on 03-06-2023 WBC (Bld) [#/Vol] 10.2 10*3/uL 3.8-11.6 [facility] pH Auto test strip (U)Ordere d By: Dominik Hall on 03-06-2023 pH (U) 7.0 [pH] 5.0-9.0 [facility] Alanine aminotransferase [En zymatic activity/volume] in Serum or PlasmaOrdered By: John Cortes on 03-04-2023 ALT [Catalytic activity/Vol] 23 U/L 7-52 [facility] Albumin [Mass/volume] in Ser um or Plasma by Bromocresol green (BCG) dye binding methoOrdered By: John Cortes on 03-04-2023 Albumin BCG dye [Mass/Vol] 4.2 g/dL 3.5-5.7 [facility] Alkaline phosphatase [Enzyma tic activity/volume] in Serum or PlasmaOrdered By: John Cortes on 03-04-2023 ALP [Catalytic activity/Vol] 79 U/L 34-104 [facility] Aspartate aminotransferase [ Enzymatic activity/volume] in Serum or PlasmaOrdered By: John Cortes on 03-04-2023 AST [Catalytic activity/Vol] 20 U/L 13-39 [facility] Automated erythrocytes count in urine sediment (number/area)Ordered By: John Cortes on 03-04-2023 RBC Auto (Urine sed) [#/Area] 5-9 [HPF] 0-4 [facility] Automated leukocytes count i n urine sediment (number/area)Ordered By: John Cortes on 03-04-2023 WBC Auto (Urine sed) [#/Area] 0-1 [HPF] 0-4 [facility] Basophils Auto (Bld) [#/Vol] Ordered By: John Cortes on 03-04-2023 Basophils (Bld) [#/Vol] 0.0 10*3/uL 0.0-0.2 [facility] Basophils/100 WBC Auto (Bld) Ordered By: John Cortes on 03-04-2023 Basophils/100 WBC (Bld) 0.5 % . [facility] Bilirubin Test strip Ql (U)O rdered By: John Cortes on 03-04-2023 Bilirubin Ql (U) Negative Negative [facility] Bilirubin.total [Mass/volume ] in Serum or PlasmaOrdered By: John Cortes on 03-04-2023 Bilirubin [Mass/Vol] 0.2 mg/dL 0.3-1.0 [facility] Calcium [Mass/volume] in Ser um or PlasmaOrdered By: John Cortes on 03-04-2023 Calcium [Mass/Vol] 9.5 mg/dL 8.6-10.3 [facility] Carbon dioxide, total [Moles /volume] in Serum or PlasmaOrdered By: John Cortes on 03-04-2023 CO2 [Moles/Vol] 27.9 mmol/L 21.0-31.0 [facility] Chloride [Moles/volume] in S jett or PlasmaOrdered By: John Cortes on 03-04-2023 Chloride [Moles/Vol] 105 mmol/L 98-107 [facility] Color Auto (U)Ordered By: Telly Cortes on 03-04-2023 Color (U) Yellow Yellow [facility] Creatinine [Mass/volume] in Serum or PlasmaOrdered By: John Cortes on 03-04-2023 Creatinine [Mass/Vol] 0.72 mg/dL 0.60-1.20 [facility] Eosinophils Auto (Bld) [#/Vo l]Ordered By: John Cortes on 03-04-2023 Eosinophils (Bld) [#/Vol] 0.3 10*3/uL 0.0-0.45 [facility] Eosinophils/100 WBC Auto (Bl d)Ordered By: John Cortes on 03-04-2023 Eosinophils/100 WBC (Bld) 3.4 % . [facility] Erythrocyte distribution wid th Auto (RBC) [Ratio]Ordered By: John Cortes on 03-04-2023 Erythrocyte distribution width (RBC) [Ratio] 15.0 % 11.9-15.3 [facility] Globulin Calc (S) [Mass/Vol] Ordered By: John Cortes on 03-04-2023 Globulin (S) [Mass/Vol] 3.0 g/dL [facility] Glucose [Mass/volume] in Ser um or PlasmaOrdered By: John Cortes on 03-04-2023 Glucose [Mass/Vol] 96 mg/dL 70-100 [facility] Hematocrit Auto (Bld) [Volum e fraction]Ordered By: John Cortes on 03-04-2023 Hematocrit (Bld) [Volume fraction] 36.0 % 34.0-46.4 [facility] Hemoglobin [Mass/volume] in BloodOrdered By: John Cortes on 03-04-2023 Hemoglobin (Bld) [Mass/Vol] 12.2 g/dL 11.8-15.4 [facility] Ketones Auto test strip (U) [Mass/Vol]Ordered By: John Cortes on 03-04-2023 Ketones (U) [Mass/Vol] Negative Negative [facility] Leukocytes [#/volume] correc jacki for nucleated erythrocytes in Blood by Automated counOrdered By: John Cortes on 03-04-2023 WBC corrected for nucl RBC Auto (Bld) [#/Vol] 9.2 10*3/uL 3.8-11.6 [facility] Lymphocytes Auto (Bld) [#/Vo l]Ordered By: John Cortes on 03-04-2023 Lymphocytes (Bld) [#/Vol] 2.4 10*3/uL 1.00-4.8 [facility] Lymphocytes/100 WBC Auto (Bl d)Ordered By: John Cortes on 03-04-2023 Lymphocytes/100 WBC (Bld) 26.1 % . [facility] MCH Auto (RBC) [Entitic mass ]Ordered By: John Cortes on 03-04-2023 MCH (RBC) [Entitic mass] 28.9 pg 24.7-34.3 [facility] MCHC Auto (RBC) [Mass/Vol]Or dered By: John Cortes on 03-04-2023 MCHC (RBC) [Mass/Vol] 33.8 g/dL 32.0-35.0 [facility] MCV Auto (RBC) [Entitic vol] Ordered By: John Cortes on 03-04-2023 MCV (RBC) [Entitic vol] 85.3 fL 80-100 [facility] Magnesium [Mass/volume] in S jett or PlasmaOrdered By: John Cortes on 03-04-2023 Magnesium [Mass/Vol] 1.7 mg/dL 1.9-2.7 [facility] Monocyte distribution width [Entitic volume] in Blood by AutomatedOrdered By: John Cortes on 03-04-2023 Monocyte distribution width Auto (Bld) [Entitic vol] 18.80 % 0.00-20.00 [facility] Monocytes Auto (Bld) [#/Vol] Ordered By: John Cortes on 03-04-2023 Monocytes (Bld) [#/Vol] 0.8 10*3/uL 0.0-0.8 [facility] Monocytes/100 WBC Auto (Bld) Ordered By: John Cortes on 03-04-2023 Monocytes/100 WBC (Bld) 8.5 % . [facility] Neutrophils Auto (Bld) [#/Vo l]Ordered By: John Cortes on 03-04-2023 Neutrophils (Bld) [#/Vol] 5.7 10*3/uL 1.8-7.7 [facility] Neutrophils/100 WBC Auto (Bl d)Ordered By: John Cortes on 03-04-2023 Neutrophils/100 WBC (Bld) 61.5 % . [facility] Nitrite Test strip Ql (U)Ord ered By: John Cortes on 03-04-2023 Nitrite Ql (U) Negative Negative [facility] No Panel InformationOrdered By: John Cortes on 03-04-2023 0-8 [LPF] 0-8 [facility] > 60.0 mL/Min [facility] 105.40 [facility] Nucleated erythrocytes [Pres ence] in Blood by Automated countOrdered By: John Cortes on 03-04-2023 Nucleated RBC Auto Ql (Bld) 0.0 /100{WBC} 0-0.5 [facility] Platelet mean volume Auto (B ld) [Entitic vol]Ordered By: John Cortes on 03-04-2023 Platelet mean volume (Bld) [Entitic vol] 8.0 fL 6.3-10.7 [facility] Platelets Auto (Bld) [#/Vol] Ordered By: John Cortes on 03-04-2023 Platelets (Bld) [#/Vol] 364 10*3/uL 150-450 [facility] Potassium [Moles/volume] in Serum or PlasmaOrdered By: John Cortes on 03-04-2023 Potassium [Moles/Vol] 3.9 mmol/L 3.5-5.1 [facility] Protein Auto test strip (U) [Mass/Vol]Ordered By: John Cortes on 03-04-2023 Protein (U) [Mass/Vol] Negative Negative [facility] Protein [Mass/volume] in Ser um or PlasmaOrdered By: John Cortes on 03-04-2023 Protein [Mass/Vol] 7.2 g/dL 6.4-8.9 [facility] RBC Auto (Bld) [#/Vol]Ordere d By: John Cortes on 03-04-2023 RBC (Bld) [#/Vol] 4.22 10*6/uL 3.60-5.00 [facility] Serum or plasma albumin/glob ulin mass ratioOrdered By: John Cortes on 03-04-2023 Albumin/Globulin [Mass ratio] 1.4 {ratio} [facility] Serum or plasma anion gap de terminationOrdered By: John Cortes on 03-04-2023 Anion gap [Moles/Vol] 11.0 mmol/L 6.0-15.0 [facility] Sodium [Moles/volume] in Ser um or PlasmaOrdered By: John Cortes on 03-04-2023 Sodium [Moles/Vol] 140 mmol/L 136-145 [facility] Specific gravity Auto test s trip (U) [Rel density]Ordered By: John Cortes on 03-04-2023 Specific gravity (U) [Rel density] 1.016 1.001-1.030 [facility] Squamous epithelial cells de tection in urine sediment by light microscopyOrdered By: John Cortes on 03-04-2023 Epithelial cells.squamous LM Ql (Urine sed) 0-1 [HPF] 0-2 [facility] Urea nitrogen [Mass/volume] in Serum or PlasmaOrdered By: John Cortes on 03-04-2023 Urea nitrogen [Mass/Vol] 9 mg/dL 7-25 [facility] Urine bacteria detection by automated methodOrdered By: John Cortes on 03-04-2023 Bacteria Auto Ql (U) None seen None Seen [facility] Urine clarity by refractomet ry automatedOrdered By: John Cortes on 03-04-2023 Clarity Refractometry automated (U) Turbid Clear [facility] Urine glucose measurement by automated test strip (mass/volume)Ordered By: John Cortes on 03-04-2023 Glucose Auto test strip (U) [Mass/Vol] Normal mg/dL Normal [facility] Urine hemoglobin detection b y automated test stripOrdered By: John Cortes on 03-04-2023 Hemoglobin Auto test strip Ql (U) Negative Negative [facility] Urine leukocyte esterase det ection by automated test stripOrdered By: John Cortes on 03-04-2023 Leukocyte esterase Auto test strip Ql (U) Negative Negative [facility] Urobilinogen Auto test strip (U) [Mass/Vol]Ordered By: John Cortes on 03-04-2023 Urobilinogen (U) [Mass/Vol] Normal mg/dL Normal [facility] WBC Auto (Bld) [#/Vol]Ordere d By: John Cortes on 03-04-2023 WBC (Bld) [#/Vol] 9.2 10*3/uL 3.8-11.6 [facility] pH Auto test strip (U)Ordere d By: John Cortes on 03-04-2023 pH (U) 8.5 [pH] 5.0-9.0 [facility] Alanine aminotransferase [En zymatic activity/volume] in Serum or PlasmaOrdered By: Denver Hess on 01-21-2023 ALT [Catalytic activity/Vol] 22 U/L 7-52 [facility] Albumin [Mass/volume] in Ser um or Plasma by Bromocresol green (BCG) dye binding methoOrdered By: Denver Hess on 01-21-2023 Albumin BCG dye [Mass/Vol] 3.9 g/dL 3.5-5.7 [facility] Alkaline phosphatase [Enzyma tic activity/volume] in Serum or PlasmaOrdered By: Denver Hess on 01-21-2023 ALP [Catalytic activity/Vol] 69 U/L 34-104 [facility] Aspartate aminotransferase [ Enzymatic activity/volume] in Serum or PlasmaOrdered By: Denver Hess on 01-21-2023 AST [Catalytic activity/Vol] 17 U/L 13-39 [facility] Automated epithelial cells c ount in urine sediment (number/area)Ordered By: Denver Hess on 01-21-2023 Epithelial cells Auto (Urine sed) [#/Area] 0-1 [HPF] 0-2 [facility] Automated erythrocytes count in urine sediment (number/area)Ordered By: Denver Hess on 01-21-2023 RBC Auto (Urine sed) [#/Area] 0-1 [HPF] 0-4 [facility] Automated leukocytes count i n urine sediment (number/area)Ordered By: Denver Hess on 01-21-2023 WBC Auto (Urine sed) [#/Area] None seen [HPF] 0-4 [facility] Basophils Auto (Bld) [#/Vol] Ordered By: Denver Hess on 01-21-2023 Basophils (Bld) [#/Vol] 0.1 10*3/uL 0.0-0.2 [facility] Basophils/100 WBC Auto (Bld) Ordered By: Denver Hess on 01-21-2023 Basophils/100 WBC (Bld) 1.2 % . [facility] Bilirubin Auto test strip Ql (U)Ordered By: Denver Hess on 01-21-2023 Bilirubin Ql (U) Negative Negative [facility] Bilirubin.direct [Mass/volum e] in Serum or PlasmaOrdered By: Denver Hess on 01-21-2023 Bilirubin.direct [Mass/Vol] 0.00 mg/dL 0.03-0.18 [facility] Bilirubin.total [Mass/volume ] in Serum or PlasmaOrdered By: Denver Hess on 01-21-2023 Bilirubin [Mass/Vol] 0.3 mg/dL 0.3-1.0 [facility] Calcium [Mass/volume] in Ser um or PlasmaOrdered By: Denver Hess on 01-21-2023 Calcium [Mass/Vol] 9.6 mg/dL 8.6-10.3 [facility] Carbon dioxide, total [Moles /volume] in Serum or PlasmaOrdered By: Denver Hess on 01-21-2023 CO2 [Moles/Vol] 25.1 mmol/L 21.0-31.0 [facility] Chloride [Moles/volume] in S jett or PlasmaOrdered By: Denver Hess on 01-21-2023 Chloride [Moles/Vol] 106 mmol/L 98-107 [facility] Creatinine [Mass/volume] in Serum or PlasmaOrdered By: Denver Hess on 01-21-2023 Creatinine [Mass/Vol] 0.67 mg/dL 0.60-1.20 [facility] Eosinophils Auto (Bld) [#/Vo l]Ordered By: Denver Hess on 01-21-2023 Eosinophils (Bld) [#/Vol] 0.3 10*3/uL 0.0-0.45 [facility] Eosinophils/100 WBC Auto (Bl d)Ordered By: Denver Hess on 01-21-2023 Eosinophils/100 WBC (Bld) 3.6 % . [facility] Erythrocyte distribution wid th Auto (RBC) [Ratio]Ordered By: Denver Hess on 01-21-2023 Erythrocyte distribution width (RBC) [Ratio] 15.1 % 11.9-15.3 [facility] Globulin Calc (S) [Mass/Vol] Ordered By: Denver Hess on 01-21-2023 Globulin (S) [Mass/Vol] 3.0 g/dL [facility] Glucose [Mass/volume] in Ser um or PlasmaOrdered By: Denver Hess on 01-21-2023 Glucose [Mass/Vol] 99 mg/dL 70-100 [facility] Hematocrit Auto (Bld) [Volum e fraction]Ordered By: Denver Hess on 01-21-2023 Hematocrit (Bld) [Volume fraction] 33.9 % 34.0-46.4 [facility] Hemoglobin [Mass/volume] in BloodOrdered By: Denver Hess on 01-21-2023 Hemoglobin (Bld) [Mass/Vol] 11.4 g/dL 11.8-15.4 [facility] Ketones Auto test strip (U) [Mass/Vol]Ordered By: Denver Hess on 01-21-2023 Ketones (U) [Mass/Vol] Negative Negative [facility] Leukocytes [#/volume] correc jacki for nucleated erythrocytes in Blood by Automated counOrdered By: Denver Hess on 01-21-2023 WBC corrected for nucl RBC Auto (Bld) [#/Vol] 7.8 10*3/uL 3.8-11.6 [facility] Lipase [Enzymatic activity/v olume] in Serum or PlasmaOrdered By: Denver Hess on 01-21-2023 Lipase [Catalytic activity/Vol] 61.0 U/L 11.0-82.0 [facility] Lymphocytes Auto (Bld) [#/Vo l]Ordered By: Denver Hess on 01-21-2023 Lymphocytes (Bld) [#/Vol] 2.6 10*3/uL 1.00-4.8 [facility] Lymphocytes/100 WBC Auto (Bl d)Ordered By: Denver Hess on 01-21-2023 Lymphocytes/100 WBC (Bld) 33.7 % . [facility] MCH Auto (RBC) [Entitic mass ]Ordered By: Denver Hess on 01-21-2023 MCH (RBC) [Entitic mass] 28.6 pg 24.7-34.3 [facility] MCHC Auto (RBC) [Mass/Vol]Or dered By: Denver Hess on 01-21-2023 MCHC (RBC) [Mass/Vol] 33.5 g/dL 32.0-35.0 [facility] MCV Auto (RBC) [Entitic vol] Ordered By: Denver Hess on 01-21-2023 MCV (RBC) [Entitic vol] 85.2 fL 80-100 [facility] Monocyte distribution width [Entitic volume] in Blood by AutomatedOrdered By: Denver Hess on 01-21-2023 Monocyte distribution width Auto (Bld) [Entitic vol] 17.91 % 0.00-20.00 [facility] Monocytes Auto (Bld) [#/Vol] Ordered By: Denver Hess on 01-21-2023 Monocytes (Bld) [#/Vol] 0.7 10*3/uL 0.0-0.8 [facility] Monocytes/100 WBC Auto (Bld) Ordered By: Denver Hess on 01-21-2023 Monocytes/100 WBC (Bld) 8.8 % . [facility] Neutrophils Auto (Bld) [#/Vo l]Ordered By: Denver Hess on 01-21-2023 Neutrophils (Bld) [#/Vol] 4.1 10*3/uL 1.8-7.7 [facility] Neutrophils/100 WBC Auto (Bl d)Ordered By: Denver Hess on 01-21-2023 Neutrophils/100 WBC (Bld) 52.7 % . [facility] No Panel InformationOrdered By: Denver Hess on 01-21-2023 > 60.0 mL/Min [facility] 111.34 [facility] Nucleated erythrocytes [Pres ence] in Blood by Automated countOrdered By: Denver Hess on 01-21-2023 Nucleated RBC Auto Ql (Bld) 0.1 /100{WBC} 0-0.5 [facility] Platelet mean volume Auto (B ld) [Entitic vol]Ordered By: Denver Hess on 01-21-2023 Platelet mean volume (Bld) [Entitic vol] 7.8 fL 6.3-10.7 [facility] Platelets Auto (Bld) [#/Vol] Ordered By: Denver Hess on 01-21-2023 Platelets (Bld) [#/Vol] 308 10*3/uL 150-450 [facility] Potassium [Moles/volume] in Serum or PlasmaOrdered By: Denver Hess on 01-21-2023 Potassium [Moles/Vol] 4.0 mmol/L 3.5-5.1 [facility] Protein Auto test strip (U) [Mass/Vol]Ordered By: Denver Hess on 01-21-2023 Protein (U) [Mass/Vol] Negative Negative [facility] Protein [Mass/volume] in Ser um or PlasmaOrdered By: Denver Hess on 01-21-2023 Protein [Mass/Vol] 6.9 g/dL 6.4-8.9 [facility] RBC Auto (Bld) [#/Vol]Ordere d By: Denver Hess on 01-21-2023 RBC (Bld) [#/Vol] 3.98 10*6/uL 3.60-5.00 [facility] Serum or plasma albumin/glob ulin mass ratioOrdered By: Denver Hess on 01-21-2023 Albumin/Globulin [Mass ratio] 1.3 {ratio} [facility] Serum or plasma anion gap de terminationOrdered By: Denver Hess on 01-21-2023 Anion gap [Moles/Vol] TNP [facility] Serum or plasma non-glucuron idated bilirubin measurement (mass/volume)Ordered By: Denver Hess on 01-21-2023 Bilirubin.indirect [Mass/Vol] TNP [facility] Sodium [Moles/volume] in Ser um or PlasmaOrdered By: Denver Hess on 01-21-2023 Sodium [Moles/Vol] 139 mmol/L 136-145 [facility] Urea nitrogen [Mass/volume] in Serum or PlasmaOrdered By: Denver Hess on 01-21-2023 Urea nitrogen [Mass/Vol] 11 mg/dL 7-25 [facility] Urine appearanceOrdered By: Denver Hess on 01-21-2023 Appearance (U) Clear Clear [facility] Urine bacteria detection by automated methodOrdered By: Denver Hess on 01-21-2023 Bacteria Auto Ql (U) None seen None Seen [facility] Urine colorOrdered By: Ellen Hess on 01-21-2023 Color (U) Yellow Yellow [facility] Urine glucose measurement by automated test strip (mass/volume)Ordered By: Denver Hess on 01-21-2023 Glucose Auto test strip (U) [Mass/Vol] Normal mg/dL Normal [facility] Urine hemoglobin detection b y automated test stripOrdered By: Denver Hess on 01-21-2023 Hemoglobin Auto test strip Ql (U) Trace Negative [facility] Urine leukocyte esterase det ection by automated test stripOrdered By: Denver Hess on 01-21-2023 Leukocyte esterase Auto test strip Ql (U) Negative Negative [facility] Urine nitrite detection by a utomated test stripOrdered By: Denver Hess on 01-21-2023 Nitrite Auto test strip Ql (U) Negative Negative [facility] Urobilinogen Auto test strip (U) [Mass/Vol]Ordered By: Denver Hess on 01-21-2023 Urobilinogen (U) [Mass/Vol] Normal mg/dL Normal [facility] WBC Auto (Bld) [#/Vol]Ordere d By: Denver Hess on 01-21-2023 WBC (Bld) [#/Vol] 7.8 10*3/uL 3.8-11.6 [facility] pH Auto test strip (U)Ordere d By: Denver Hess on 01-21-2023 pH (U) 1.010 [pH] 1.001-1.030 [facility] pH (U) 6.0 [pH] 5.0-9.[address] [facility] [address] Abdomen/Pelvis w/o Contra ston 01-07-2023 CT Abdomen/Pelvis w/o Contrast Exam Date/Time: 01/06/2023 21:55 EDT Reason for Exam: Abdominal pain, acute, nonlocalized;Other (please specify) Report IMPRESSION: NO EVIDENCE OF OBSTRUCTIVE UROPATHY. NO EVIDENCE OF ACUTE ABDOMINAL OR PELVIC PATHOLOGY. CLINICAL HISTORY: Abdominal pain, acute, nonlocalized. COMPARISON: 09/18/2022. COMMENT: Unenhanced images were obtained. There is a 1 mm nonobstructing calculus in the lower pole of the right kidney. No calculus is noted in the left kidney. The kidneys are unremarkable in appearance within the limits of this unenhanced study. No calculus is noted in either ureter. The renal collecting systems are not dilated. The gallbladder is partially contracted. No radiopaque gallstone is noted. There is no biliary ductal dilatation. The liver, spleen, pancreas, and adrenal glands are unremarkable. There is no retroperitoneal lymphadenopathy. There are scattered arterial calcifications. The abdominal aorta is normal in diameter. No aneurysm is evident. Evaluation of bowel is limited on this study. The bowel loops are not dilated. There is no evidence of bowel obstruction. There is some radiopaque material within the lumen of the appendix. The appendix is not dilated and there is no evidence of appendiceal wall thickening. There is no periappendiceal inflammation or other findings to indicate acute appendicitis. There is fecal material in the colon, which limits evaluation. There are scattered colonic diverticula, without evidence of diverticulitis. No abdominal inflammatory complex, no free air, nor free fluid is noted. There is a small umbilical dehiscence, that contains fat. The uterus is anteverted. There are bilateral tubal ligation clips. The urinary bladder is fluid-filled and unremarkable. No bladder calculus is noted. No pelvic mass nor pelvic lymphadenopathy is evident. There is mild spondylosis, with hypertrophic spurring of lumbar and lower thoracic vertebral bodies. All CT scans at this facility use dose modulation, iterative reconstruction, and/or weight based dosing when appropriate to reduce radiation dose to as low as reasonably achievable. Report Ordering Provider: Donis Taylor FINAL REPORT Dictated: 01/07/2023 9:06 am Favio Sharpe M.D. Signed (Electronic Signature): 01/07/2023 9:06 am Signed by: Favio Sharpe M.D. Transcribed by: JOE Technologist: ENRIKE Technical Comments Rectal Contrast Given? No Oral contrast amount in ml's: 0 Normal [facility] Discharge Instructionson Discharge Instructions [id number] Normal [facility] ED Clinical Summaryon 2022 ED Clinical Summary [facility] [id number] ED Clinical Summary Person Information Name: GIOVANNA STREETER [facility] Age: 47 Years : 1975 Sex: Female Language: Comoran PCP: REBECCA NAVAS CNP Marital Status: Visit Id: Visit Reason: Headache; Chest pain; Abdominal pain; CHEST PAIN Speciality: Acuity: 3 Enc Type: Emergency Med Service: Emergency Arrival: 01/06/2023 21:01:04 Discharge: 01/07/2023 00:00:28 LOS: 000 02:59 Checkin: 01/06/2023 21:01:04 Checkout: 01/07/2023 00:00:28 Dispo Type: Home (Routine DC) EVENTS: Event Name Event Status Request Date/Time Start Date/Time Complete Date/Time Arrive Complete 01/06/2023 21:01:04 01/06/2023 21:01:04 01/06/2023 21:01:04 Document Home Meds Request 01/06/2023 21:01:04 Triage Complete 01/06/2023 21:01:04 01/06/2023 21:07:23 01/06/2023 21:07:23 Bed Assign Complete 01/06/2023 21:02:38 01/06/2023 21:02:38 01/06/2023 21:02:38 Dr Exam Complete 01/06/2023 21:02:38 01/06/2023 21:08:00 01/06/2023 21:08:00 RN Exam Complete 01/06/2023 21:02:38 01/06/2023 21:17:00 01/06/2023 21:17:00 EKG Complete 01/06/2023 21:02:57 01/06/2023 21:15:46 Registration Complete 01/06/2023 21:04:04 01/06/2023 21:04:04 01/06/2023 21:04:04 Reg Complete Request 01/06/2023 21:04:04 Reg Bed Request Complete 01/06/2023 21:04:04 01/06/2023 21:04:04 01/06/2023 21:04:04 Registration Request 01/06/2023 21:08:00 Meds Admin Complete 01/06/2023 21:16:10 01/06/2023 21:42:25 Pending Labs Complete 01/06/2023 21:16:10 01/06/2023 22:49:24 Lab Complete 01/06/2023 21:16:10 01/06/2023 22:49:24 Urine Collect Complete 01/06/2023 21:16:10 01/06/2023 22:49:24 Patient Care Request 01/06/2023 21:16:10 RT Request 01/06/2023 21:16:10 X-Ray Complete 01/06/2023 21:16:10 01/06/2023 21:24:34 01/06/2023 21:37:39 CT Complete 01/06/2023 21:31:09 01/06/2023 21:42:54 01/06/2023 21:55:57 Dr Exam Complete 01/06/2023 21:33:13 01/06/2023 21:33:13 01/06/2023 21:33:13 Pending Labs Complete 01/06/2023 21:37:00 01/06/2023 21:37:00 01/06/2023 22:02:27 Lab Complete 01/06/2023 21:37:00 01/06/2023 21:37:00 01/06/2023 22:02:27 Wet Read Request 01/06/2023 21:37:39 Pending Labs Complete 01/06/2023 21:47:43 01/06/2023 21:47:43 01/06/2023 21:47:49 Lab Complete 01/06/2023 21:47:43 01/06/2023 21:47:43 01/06/2023 21:47:49 Meds Admin Complete 01/06/2023 23:44:13 01/06/2023 23:52:55 Discharge Complete 01/06/2023 23:45:41 01/07/2023 00:00:37 01/07/2023 00:00:37 Transfer Complete 01/07/2023 00:00:37 01/07/2023 00:00:37 01/07/2023 00:00:37 ADDRESS: [address] [place] [id number] PHYS DOC NOTES: MEDICAL INFORMATION: Prescriptions Given: Medications to Continue with No Changes Other Medications acetaminophen-hydrocod one ([place] 325 mg-5 mg oral tablet) 1 Tablets By Mouth every 4 hours as needed for pain. Refills: 0. atorvastatin (atorvastatin 20 mg Tab) 1 Tablets By Mouth every day. azithromycin (Zithromax) 250 Milligram By Mouth. brompheniramine/dextro methorphan/PSE (Bromfed DM oral syrup) 5 Milliliter By Mouth 4 times a day as needed for cough and congestion. Refills: 0. cyclobenzaprine (cyclobenzaprine 10 mg Tab) 1 Tablets By Mouth 3 times a day as needed Muscle pain. Refills: 0. lisinopril 20 Milligram By Mouth every day. naproxen (Naprosyn 500 mg Tab) 1 Tablets By Mouth 2 times a day as needed for pain. Refills: 0. naproxen (Naprosyn 500 mg Tab) 1 Tablets By Mouth 2 times a day as needed for pain. Refills: 0. naproxen (naproxen 500 mg oral enteric coated tablet) 1 Tablets By Mouth 2 times a day as needed Pain. Refills: 0. omeprazole (omeprazole 20 mg Cap-DR) 1 Capsules By Mouth every day. ondansetron (Zofran ODT 4 mg Tab-Dis) 1 Tablets By Mouth every 8 hours as needed Nausea/Vomiting. Refills: 0. predniSONE (predniSONE 20 mg Tab) 1 Tablets By Mouth As Directed. take two tabs daily for 5 days, then one tab daily for 5 days.. Refills: 0. PATIENT EDUCATION INFORMATION: Instructions: Nonspecific Chest Pain, Adult; Abdominal Pain, Adult Follow up: With: Address: When: REBECCA ELOISE [address] [place] [address] In 3 days DIAGNOSIS: Abdominal pain, acute; Chest pain; Headache Normal [facility] ED Patient Education Noteon 01-07-2023 ED Patient Education Note Gastroenterology Abdominal Pain, Adult Pain in the abdomen (abdominal pain) can be caused by many things. Often, abdominal pain is not serious and it gets better with no treatment or by being treated at home. However, sometimes abdominal pain is serious. Your health care provider will ask questions about your medical history and do a physical exam to try to determine the cause of your abdominal pain. Follow these instructions at home: Medicines ? Take mehl-dcf-fvbgzmh and prescription medicines only as told by your health care provider. ? Do not take a laxative unless told by your health care provider. General instructions ? Watch your condition for any changes. ? Drink enough fluid to keep your urine pale yellow. ? Keep all follow-up visits as told by your health care provider. This is important. Contact a health care provider if: ? Your abdominal pain changes or gets worse. ? You are not hungry or you lose weight without trying. ? You are constipated or have diarrhea for more than 2?3 days. ? You have pain when you urinate or have a bowel movement. ? Your abdominal pain wakes you up at night. ? Your pain gets worse with meals, after eating, or with certain foods. ? You are vomiting and cannot keep anything down. ? You have a fever. ? You have blood in your urine. Get help right away if: ? Your pain does not go away as soon as your health care provider told you to expect. ? You cannot stop vomiting. ? Your pain is only in areas of the abdomen, such as the right side or the left lower portion of the abdomen. Pain on the right side could be caused by appendicitis. ? You have bloody or black stools, or stools that look like tar. ? You have severe pain, cramping, or bloating in your abdomen. ? You have signs of dehydration, such as: ? Dark urine, very little urine, or no urine. ? Cracked lips. ? Dry mouth. ? Sunken eyes. ? Sleepiness. ? Weakness. ? You have trouble breathing or chest pain. Summary ? Often, abdominal pain is not serious and it gets better with no treatment or by being treated at home. However, sometimes abdominal pain is serious. ? Watch your condition for any changes. ? Take jxnw-drg-vnpygqd and prescription medicines only as told by your health care provider. ? Contact a health care provider if your abdominal pain changes or gets worse. ? Get help right away if you have severe pain, cramping, or bloating in your abdomen. This information is not intended to replace advice given to you by your health care provider. Make sure you discuss any questions you have with your health care provider. Document Revised: 05/06/2020 Document Reviewed: 07/27/2019 [employer] Patient Education ? 2022 [employer] Pulmonary Medicine Nonspecific Chest Pain, Adult Chest pain is an uncomfortable, tight, or painful feeling in the chest. The pain can feel like a crushing, aching, or squeezing pressure. A person can feel a burning or tingling sensation. Chest pain can also be felt in your back, neck, jaw, shoulder, or arm. This pain can be worse when you move, sneeze, or take a deep breath. Chest pain can be caused by a condition that is life-threatening. This must be treated right away. It can also be caused by something that is not life-threatening. If you have chest pain, it can be hard to know the difference, so it is important to get help right away to make sure that you do not have a serious condition. Some life-threatening causes of chest pain include: ? Heart attack. ? A tear in the body's main blood vessel (aortic dissection). ? Inflammation around your heart (pericarditis). ? A problem in the lungs, such as a blood clot (pulmonary embolism) or a collapsed lung (pneumothorax). Some non life-threatening causes of chest pain include: ? Heartburn. ? Anxiety or stress. ? Damage to the bones, muscles, and cartilage that make up your chest wall. ? Pneumonia or bronchitis. ? Shingles infection (varicella-zoster virus). Your chest pain may come and go. It may also be constant. Your health care provider will do tests and other studies to find the cause of your pain. Treatment will depend on the cause of your chest pain. Follow these instructions at home: Medicines ? Take nydq-nqw-qupsvqm and prescription medicines only as told by your health care provider. ? If you were prescribed an antibiotic medicine, take it as told by your health care provider. Do not stop taking the antibiotic even if you start to feel better. Activity ? Avoid any activities that cause chest pain. ? Do not lift anything that is heavier than 10 lb (4.5 kg), or the limit that you are told, until your health care provider says that it is safe. ? Rest as directed by your health care provider. ? Return to your normal activities only as told by your health care provider. Ask your health care provider what activities are safe for you. Lifestyle (Inserted Image. Unable to display (more content not included)... Normal [facility] ED Patient Summaryon 023 ED Patient Summary [address] [address] Patient Discharge Instructions Person Information Name: GIOVANNA STREETER Age: 47 Years Arrival Date: 01/06/2023 21:01:04 Discharge Diagnosis: Abdominal pain, acute; Chest pain; Headache Primary Care Physician: REBECCA NAVAS CNP Provider Information Primary Provider: Donis Taylor DO Advanced Cigarette Lighter Repairer:Javier The exam and treatment you received in the Emergency Department were for an urgent problem and are not intended as complete care. It is important that you follow up with a doctor, nurse practitioner, or physician?s medical assistant float for ongoing care. If your symptoms become worse or you do not improve as expected and you are unable to reach your usual health care provider, you should return to the Emergency Department. We are available 24 hours a day. GIOVANNA STREETER has been given the following list of patient education materials, prescriptions and follow-up instructions: Follow-up Instructions: With: Address: When: REBECCA NAVAS [address] [place] [address] In 3 days In the event that this physician does not participate in your insurance network, please consult with your insurance company to find a nearby participating provider. Patient Education Materials: Nonspecific Chest Pain, Adult; Abdominal Pain, Adult A MESSAGE TO ALL PATIENTS REGARDING OPIOIDS PRESCRIPTION OPIOIDS: WHAT YOU NEED TO KNOW Prescription opioids can be used to help relieve upcrhixh-eh-bixzkk pain and are often prescribed following a surgery or injury, or for certain health conditions. These medications can be an important part of the treatment but also come with serious risks. It is important to work with your healthcare provider to make sure you are getting the safest, most effective care. WHAT ARE THE RISKS AND SIDE EFFECTS OF OPIOID USE? Prescription opioids carry serious risks of addiction and overdose, especially with prolonged use. An opioid overdose, often marked by slowed breathing, can cause sudden . The use of prescription opioids can have a number of side effects as well, even when taken as directed: ? Tolerance?meaning you might need to take more of the medication for the same pain relief ? Physical dependence?meaning you have symptoms of withdrawal when a medication is stopped ? Increased sensitivity to pain ? Constipation ? Nausea, vomiting, and dry mouth ? Sleepiness and dizziness ? Confusion ? Depression ? Low levels of testosterone that can result in lower sex drive, energy, and strength ? Itching and sweating RISKS ARE GREATER WITH: ? History of drug misuse, substance use disorder, or overdose ? Mental health conditions (such as depression or anxiety) ? Sleep apnea ? Older age (65 years and older) ? Avoid alcohol while taking prescription opioids. Also, unless specifically advised by your health care provider, medications to avoid include: ? Benzodiazepines (such as Xanax or Valium) ? Muscle relaxants (such as Soma or Flexeril) ? Hypnotics (such as Ambien or Lunesta) ? Other prescription opioids KNOW YOUR OPTIONS Talk to your health care provider about ways to manage your pain that don?t involve prescription opioids. Some of these options may actually work better and have fewer risks and side effects. Options may include: ? Pain relievers such as acetaminophen, ibuprofen, and naproxen ? Some medication that are also used for depression or seizures ? Physical therapy and exercise ? Cognitive behavioral therapy, a psychological, goal-directed approach, in which patients learn how to modify physical, behavioral, and emotional triggers of pain and stress. IF YOU ARE PRESCRIBED OPIOIDS FOR PAIN: ? Never take opioids in greater amounts or more often than prescribed. ? Follow up with your primary health care provider. o Work together to create a plan on how to manage your pain. o Talk about ways to help manage your pain that don?t involve prescription opioids. o Talk about any and all concerns and side effects. ? Help prevent misuse and abuse o Never sell or share prescription opioids. o Never use another person?s prescription opioids. ? Store prescription opioids in a secure place and out of reach of others (this may include visitors, children, friends, and family). ? Safely dispose of unused prescription opioids: Find your community drug take-back program or your pharmacy mail-back program, or flush them down the toilet, following guidance from the Food and Drug Administration (www.fda.gov/Drugs/Res ourcesForYou). ? Visit www.cdc.gov/drugoverdo se to learn about the risks of opioids abuse and overdose. ? If you believe you may be struggling with addiction, tell your health care provider and ask for guidance or call [facility]?S National Helpline at 5-523-678-UDND. b Source: [place] Depa (more content not included)... Normal [facility] XR Chest Single Viewon 01-07 XR Chest Single View Exam Date/Time: 01/06/2023 21:37 EDT Reason for Exam: Chest pain Report IMPRESSION: NO EVIDENCE OF ACTIVE CHEST DISEASE. CLINICAL HISTORY: Chest pain. COMPARISON: 10/03/2022. COMMENT: AP view portable. The respiratory effort is relatively shallow. The heart is within normal limits in size. The mediastinum is unremarkable. The lungs appear clear. No infiltration nor pleural effusion is evident. No significant change is noted when compared to the prior exam. Ordering Provider: Donis Taylor FINAL REPORT Dictated: 01/07/2023 8:21 am Favio Sharpe M.D. Signed (Electronic Signature): 01/07/2023 8:21 am Signed by: Favio Sharpe M.D. Transcribed by: JOE Technologist: ENRIKE Technical Comments Radiation Dose: Ka,r in mGy = na DAP = na Normal [facility] Auto Diffon 01-06-2023 Basophils/100 WBC (Bld) 0.5 % Normal 0.0-2.0 F [facility] Comment on above: Order Comment: Order Added by Discern Expert. Performed By: #### 2 [id number], 8817186, 94146176, 9085825, 78608939, 74605082, 5130880, 1935325 ####[facility] [address] [place] [address] Basophils/Leukocytes Auto (Bld) [Pure # fraction] 0.0 E9/L Normal 0.0-0.2 [facility] Comment on above: Order Comment: Order Added by Discern Expert. Performed By: #### 2 274960, 7962523, 12814297, 4024256, 03425190, 69959824, 1353467, 6513953 ####[facility] [address] [place] [address] Eosinophils/100 WBC (Bld) 3.8 % Normal 0.0-8.0 [facility] Comment on above: Order Comment: Order Added by Discern Expert. Performed By: #### 2 804127, 5145050, 01669646, 4431705, 26030726, 61337209, 0883138, 3633232 ####[facility] [address] [place] [address] Eosinophils/Leukocytes Auto (Bld) [Pure # fraction] 0.3 E9/L Normal 0.0-0.5 [facility] Comment on above: Order Comment: Order Added by Discern Expert. Performed By: #### 2 093838, 9292386, 87097227, 6146834, 26655397, 57206946, 5867964, 6845532 ####[address] [place] [address] Lymphocytes/100 WBC (Bld) 29.0 % Normal 14.0-50.0 [facility] Comment on above: Order Comment: Order Added by Discern Expert. Performed By: #### 2 613566, 4238856, 86635970, 1794608, 52590857, 81409990, 2855328, 8131721 ####[address] [place] [address] Lymphocytes/Leukocytes Auto (Bld) [Pure # fraction] 2.6 E9/L Normal 1.0-4.0 [facility] Comment on above: Order Comment: Order Added by Discern Expert. Performed By: #### 2 735089, 9314361, 37920034, 1183332, 35316438, 71940728, 7938167, 6406426 ####[address] [place] [address] Monocytes/100 WBC (Bld) 6.6 % Normal 4.0-14.0 [facility] Comment on above: Order Comment: Order Added by Mackenzie Expert. Performed By: #### 2 496669, 7272751, 88271876, 7626890, 79521368, 29868885, 9824141, 5642796 ####[facility] [address] [place] [address] Monocytes/Leukocytes Auto (Bld) [Pure # fraction] 0.6 E9/L Normal 0.2-1.0 [facility] Comment on above: Order Comment: Order Added by Discern Expert. Performed By: #### 2 292741, 6162354, 70118801, 1105711, 62489732, 27795450, 6149250, 2936083 ####[facility] [address] [place] [address] Neutrophils/100 WBC (Bld) 60.1 % Normal 36.0-75.0 [facility] Comment on above: Order Comment: Order Added by Discern Expert. Performed By: #### 2 188347, 6768786, 12492448, 5209352, 29434299, 77408500, 8409878, 3409211 ####[facility] [address] [place] [address] Neutrophils/Leukocytes Auto (Bld) [Pure # fraction] 5.4 E9/L Normal 2.0-7.5 [facility] Comment on above: Order Comment: Order Added by Discern Expert. Performed By: #### 2 777352, 0833088, 85712175, 4197947, 41369658, 01677177, 7557695, 0854029 ####[facility] [address] [place] [address] BMPon 01-06-2023 Creatinine [Mass/Vol] 1.0 mg/dL Normal 0.5-1.3 [facility] Comment on above: Performed By: #### 1 [id number] #### [facility] [address] [place] [address] Urea nitrogen [Mass/Vol] 13 mg/dL Normal 5-21 [facility] Comment on above: Performed By: #### 1 [id number] #### [facility] [address] [place] [address] Urea nitrogen/Creatinine [Mass ratio] 13 No Units Normal 10-20 [facility] Comment on above: Performed By: #### 1 [id number] #### [facility] [address] [place] [address] Anion gap [Moles/Vol] 12 mmol/L Normal 6-16 [facility] Comment on above: Performed By: #### 1 7384542 #### [facility] [address] [place] [place] [address] Calcium [Mass/Vol] 9.3 mg/dL Normal 8.9-11.1 [facility] Comment on above: Performed By: #### 1 3742745 #### [facility] [address] [place] [address] Chloride [Moles/Vol] 107 mmol/L Normal 101-111 [facility] Comment on above: Performed By: #### 1 [id number] #### [facility] [address] [place] [address] CO2 [Moles/Vol] 24 mmol/L Normal 21-31 [facility] Comment on above: Performed By: #### 1 [id number] #### [facility] [address] [place] [address] Glucose [Mass/Vol] 106 mg/dL Normal 55-199 [facility] Comment on above: Result Comment: If t his glucose result represents a fasting glucose, interpretation should refer to the following reference range: 55-99 mg/dL Performed By: #### 1 [id number] #### [facility] [address] [place] [place] [address] Potassium [Moles/Vol] 3.9 mmol/L Normal 3.5-5.3 [facility] Comment on above: Performed By: #### 1 3724562 #### [facility] [address] [place] [place] [address] Sodium [Moles/Vol] 139 mmol/L Normal 135-145 [facility] Comment on above: Performed By: #### 1 [id number] #### [facility] [address] [place] [address] CBC w/ Auto Diffon 3 Erythrocyte distribution width (RBC) [Ratio] 15.4 % High 10.9-14.2 [facility] Comment on above: Performed By: #### 2 449589, 7898437, 54896669, 6738577, 57249858, 00738146, 5135708, 8729955 ####[facility] [address] [place] [address] Hematocrit (Bld) [Volume fraction] 42.1 % Normal 34.0-46.0 [facility] Comment on above: Performed By: #### 2 356471, 1554385, 77043561, 9962924, 30122823, 51346888, 0071539, 9948518 ####[address] [place] [address] Hemoglobin (Bld) [Mass/Vol] 14.2 g/dL Normal 12.0-16.0 [facility] Comment on above: Performed By: #### 2 357723, 8842972, 06708957, 5467145, 95994755, 29859820, 5725628, 9872142 ####[facility] [address] [place] [address] MCH (RBC) [Entitic mass] 28.6 pg Normal 27.0-34.0 [facility] Comment on above: Performed By: #### 2 572576, 9069095, 52561434, 6363426, 69172167, 98987010, 5529988, 5602792 ####[facility] [address] [place] [address] MCHC (RBC) [Mass/Vol] 33.8 g/dL Normal 31.4-36.0 [facility] Comment on above: Performed By: #### 2 355012, 3953744, 07338278, 9780564, 41277678, 04637150, 7582981, 1082584 ####[facility] [address] [place] [address] MCV (RBC) [Entitic vol] 84.7 fL Normal 80.0-100.0 F [facility] Comment on above: Performed By: #### 2 590744, 6421664, 90414537, 8228831, 92380164, 49429799, 7958667, 8893128 ####[facility] [address] [place] [address] Platelet mean volume (Bld) [Entitic vol] 7.9 fL Normal 6.4-10.8 [facility] Comment on above: Performed By: #### 2 623825, 2687021, 37968875, 3694634, 27360765, 29060260, 3410972, 2984703 ####[facility] [address] [place] [address] Platelets (Bld) [#/Vol] 521.0 E9/L High 150.0-500.0 [facility] Comment on above: Performed By: #### 2 818099, 8427241, 22874485, 3824050, 11248251, 83406292, 0682506, 1479044 ####[facility] [address] [place] [address] RBC (Bld) [#/Vol] 5.0 E12/L Normal 4.3-5.9 [facility] Comment on above: Performed By: #### 2 894690, 3754540, 13287435, 7935800, 45792603, 61974435, 8696107, 9976955 ####[address] [place] [address] WBC corrected for nucl RBC Auto (Bld) [#/Vol] 9.0 E9/L Normal 4.0-11.0 [facility] Comment on above: Performed By: #### 2 003399, 7808067, 26799744, 5624704, 78894499, 92525912, 7485448, 8770176 ####[facility] [address] [place] [address] Consent for Treatmenton 10-0 Consent for Treatment [id number] 0TIFF Normal [facility] ED Note-Physicianon 01-07-20 ED Note-Physician Basic Information Time Seen: Donis Taylor DO 01/06/2023 21:08 Chief Complaint pt c\o headache, abd pain and chest pain since 1300 today History of Present Illness HPI: Patient is a 47-year-old female past medical history of hypertension who presents the ED for headache, chest pain, abdominal pain. Patient states for the past few days she has had a runny nose, mild cough and sore throat. Today she started having diarrhea and has noticed small amounts of blood in it. She states that she is having intermittent sharp chest pains today as well. She denies any fever or chills. She states that she has a generalized headache as well. She denies any vision changes, numbness, weakness. ROS: Pertinent review of systems conducted and is negative except as noted above. Physical exam: General: nontoxic appearing and in no distress HEENT: Mucous membranes moist Neuro: awake and alert Neck: supple, trachea midline Card: Cardiac, regular, no murmur or gallop Resp: Lungs clear to auscultation no wheeze or rhonchi Abd: Soft and nondistended. Tenderness in all 4 quadrants with some voluntary guarding. Ext: No gross deformity or edema Physical Exam Vitals & Measurements T: 36.8 ?C(Oral) HR: 113(Peripheral) RR: 24 BP: 148/95 SpO2: 96% HT: 160 cm WT: 94.3 kg BMI: 36.84 Medical Decision Making MEDICAL DECISION MAKING Number and Complexity of Problems Differential Diagnosis: [] [facility] Data External documents reviewed: N/A My EKG interpretation: Noted in chart if applicable My CT interpretation: N/A My X-ray interpretation: Noted in chart if applicable My Ultrasound interpretation: N/A Decision rules/scores evaluated: Heart Score for Major Cardiac Event History: Example factors for history - pattern of chest pain, onset, duration, relation with exercise, stress or cold, localization, concominant symptoms. reaction to sublingual nitrates, [] Highly suspicious +2 [] Moderately suspicious +1 [X] Slightly suspicious 0 EKG: [] Significant ST-Depression +2 [] Non specific repolarization disturbance +1 [X] Normal 0 Age: [] >= 65 +2 [X] 45-65 + 1 [] <45 0 Risk Factors: (HLD, HTN, DM, Cigarette Smoking, Pos Family Hx, Obesity) [] >3 risk factors or hx of atheroslerotic disease + 2 [X] 1-2 risk factors + 1 [] No risk factors known 0 Troponin: [] >= 3X normal + 2 [] 1-3X normal + 1 [X] <= Normal 0 [X] 0-3 Points 0.9 - 1.7% risk of major adverse cardiac event in 6 weeks [] 4-6 Points 12-16.6% risk of major adverse cardiac event in 6 weeks [] 7-10 Points 50-65% risk of major adverse cardiac event in 6 weeks Discussed with: N/A Treatment and Disposition ED Course: Patient is nontoxic-appearing and in no distress. She is neurologically intact on my exam. She does have some diffuse abdominal tenderness so we will obtain a CT of the abdomen pelvis in addition to cardiac work-up. Work-up is overall very reassuring. CT shows no acute abdominal process. Chest x-ray shows no acute process. She was discharged with the patient at bedside. We discussed the plan of Toradol and Zofran for her discomfort and discharge with oral hydration and rest and close follow-up with her primary care physician. Patient states understanding agreement plan was discharged stable condition. Shared decision making: As above Code status: N/A Assessment/Plan Abdominal pain, acute (R10.9: Unspecified abdominal pain) Chest pain (R07.9: Chest pain, unspecified) Headache (R51.9: Headache, unspecified) Orders: ketorolac, 15 mg = 1 mL, Injection, IV Push, Once, Stop date 01/06/23 23:43:00 EDT, STAT, Start date 01/06/23 23:43:00 EDT, 01/06/23 23:43:00 EDT ondansetron, 4 mg = 2 mL, Injection, IV Push, Once, Stop date 01/06/23 23:44:00 EDT, STAT, Start date 01/06/23 23:44:00 EDT, 01/06/23 23:44:00 EDT Sodium Chloride 0.9% intravenous solution, 1,000 mL, Soln-IV, IV, Once, Stop date 01/06/23 21:15:00 EDT, STAT, Start date 01/06/23 21:15:00 EDT, Infuse over 61, minute(s) Automated Diff Basic Metabolic Panel CBC w/ Auto Diff CT Abdomen/Pelvis w/o Contrast ECG 12 Lead Adult ED Cardiac Monitoring eGFR Hepatic Function Panel Lipase Level Oxygen Saturation Oxygen Therapy PT & PTT Saline Lock Insert Troponin 0 Hr. UA With Cult Reflex XR Chest Single View Medications Administered Given NS 1000 ml Bolus, 1000 mL, IV Disposition Plan Discharge Prescription List Prescriptions No active prescription medications Follow-up With When Contact Information REBECCA NAVAS In 3 days [address] [place] [address]- Additional Instructions: Patient Education Nonspecific Chest Pain, Adult Abdominal Pain, Adult Problem List/Past Medical History Ongoing Asymptomatic microscopic hematuria BMI 33.0-33.9,adult Cystitis Dysuria Smoker Stress incontinence Umbilical herni (more content not included)... Normal [facility] Comment on above: Result Comment: Elec tronically Signed By: Donis Taylor DO\.br\Date and Time Signed: 01/06/23 23:47 EDT Hep Func Panelon 01-06-2023 Bilirubin.indirect [Mass or moles/Vol] UTC Abnormal 0.1-0.9 [facility] Comment on above: Result Comment: Resu lt verified by Discern Rule. Performed result UTC (Unable to Calculate) was sent as an Alpha code due the inability to calculate a valid numeric value. Performed By: #### 1 [id number] #### [facility] [address] [place] [address] Albumin [Mass/Vol] 4.4 g/dL Normal 3.3-5.0 [facility] Comment on above: Performed By: #### 1 [id number] #### [facility] [address] [place] [address] Albumin/Globulin (S) [Mass conc ratio] 1.0 Low 1.1-2.2 [facility] Comment on above: Performed By: #### 1 [id number] #### [facility] [address] [place] [address] ALP [Catalytic activity/Vol] 85 Int._Unit/L Normal 21-98 [facility] Comment on above: Performed By: #### 1 [id number] #### [facility] [address] [place] [address] ALT No additional P-5'-P [Catalytic activity/Vol] 41 Int._Unit/L Normal 6-46 [facility] Comment on above: Performed By: #### 1 [id number] #### [facility] [address] [place] [address] AST [Catalytic activity/Vol] 37 Int._Unit/L Normal 5-43 [facility] Comment on above: Performed By: #### 1 [id number] #### [facility] [address] [place] [address] Bilirubin [Mass/Vol] 0.3 mg/dL Normal 0.0-1.1 [facility] Comment on above: Performed By: #### 1 [id number] #### [facility] [address] [place] [address] Globulin (S) [Mass/Vol] 4.2 g/dL High 1.4-4.0 [facility] Comment on above: Performed By: #### 1 [id number] #### [facility] [address] [place] [address] Protein [Mass/Vol] 8.6 g/dL High 6.0-7.8 [facility] Comment on above: Performed By: #### 1 [id number] #### [facility] [address] [place] [address] Bilirubin.direct [Mass/Vol] mg/dL Normal 0.1-0.4 [facility] Comment on above: Performed By: #### 1 [id number] #### [facility] [address] [place] [address] Lipase Levelon 01-06-2023 Lipase [Catalytic activity/Vol] 59 U/L High 13-58 [facility] Comment on above: Performed By: #### 2 [id number], [id number], [id number], [id number], [id number], [id number], [id number] ####[facility] [address] [place] [address] PT & PTTon 01-06-2023 aPTT Coag (PPP) [Time] 34.6 second(s) Normal 25.1-36.5 [facility] Comment on above: Result Comment: Para meter 15 days - 4 weeks 1 - 5 months 6 - 11 months 1 - 5 years 6 - 10 years 11 - 17 years PTT Mean: 35.4 (27.6-45.6) Mean: 33.5 (24.8-40.7) Mean: 32.4 (25.1-40.7) Mean: 31.6 (24.0-39.2) Mean: 31.6 (26.9-38.7) Mean: 31.0 (24.6-38.4) Pediatric Reference ranges were obtained from a study by Scott Cates et al. prepared from 1437 samples obtained at 7 different centers using the same coagulation reagent and instrumentation as [facility]. Currently there are no coagulation studies available worldwide for children to 14 days, and no normal ranges. Heparin therapeutic range (represented by Anti-Factor Xa activity of 0.2 - 0.4 U/mL) corresponds to PTT of 56.6 - 109.0 sec. Performed By: #### 1 [id number] #### [facility] [address] [place] [address] INR Coag (PPP) [Relative time] 0.9 {INR} Invalid Interpretation Code [facility] Comment on above: Result Comment: INR results are specifically intended to assess patients stabilized on long-term Anticoagulation therapy suggested INR?s ?Less Intensive Anticoagulation? 2.0 ? 3.0 Conventional Range 3.0 ? 4.5 Performed By: #### 1 [id number] #### [facility] [address] [place] [address] PT Coag (PPP) [Time] 10.4 second(s) Normal 9.4-12.5 [facility] Comment on above: Result Comment: 15 d ays - 4 weeks 1 - 5 months 6 -11 months 1-5 years 6-10 years 11 -17 years Mean: 11.2 (9.5-12.6) Mean: 11.0 (9.7-12.8) Mean: 11.0 (9.8-13.0) Mean: 11.3 (9.9-13.4) Mean: 11.7 (10.0-14.6) Mean: 11.8 (10.0 - 14.1) Pediatric Reference ranges were obtained from a study by Scott Cates et al. prepared from 1437 samples obtained at 7 different centers using the same coagulation reagent and instrumentation as [facility]. Currently there are no coagulation studies available worldwide for children to 14 days, and no normal ranges. Performed By: #### 1 [id number] #### [facility] [address] [place] [address] RAD - Preliminary Cat Scan R eporton 01-06-2023 RAD - Preliminary Cat Scan Report [id number]. 00TIFF Normal [facility] Troponin 0 Hr.on 01-06-2023 Troponin I.cardiac [Mass/Vol] 7.90 pg/mL Low 10.10-27.10 [facility] Comment on above: Result Comment: The 95% CI (Confidence Interval) PPV (Positive Predictive Value) for myocardial infarction in females is 38 pg/mL, in males 51 pg/mL. The results should be used in conjunction with clinical conditions of myocardial infarction. (Access High Sensitivity Troponin I Instructions For Use, [place], October 2017) Performed By: #### 1 [id number] #### [facility] [address] [place] [address] UA With Cult Reflexon 2022 Bacteria LM Ql (Urine sed) TRACE Normal Trace [facility] Comment on above: Performed By: #### 1 [id number] ####[facility] [address] [place] [address] Bilirubin Ql (U) Negative Normal Negative [facility] Comment on above: Performed By: #### 1 [id number] ####[address] [address] Clarity (U) CLEAR Normal Clear [facility] Comment on above: Performed By: #### 1 [id number] ####[address] [address] Color (U) YELLOW Normal Yellow [facility] Comment on above: Performed By: #### 1 [id number] ####[address] [address] Epithelial cells.squamous LM.HPF (Urine sed) [#/Area] 0-2 Normal 0-2 [facility] Comment on above: Performed By: #### 1 [id number] ####[address] [address] Glucose Test strip (U) [Mass/Vol] Negative Normal Negative [facility] Comment on above: Performed By: #### 1 [id number] ####[address] [address] Hemoglobin Ql (U) 2+ Abnormal Negative [facility] Comment on above: Performed By: #### 1 [id number] ####[facility] [address] [place] [address] Ketones (U) [Mass/Vol] Negative Normal Negative [facility] Comment on above: Performed By: #### 1 [id number] ####[facility] [address] [place] [address] Spiro.plasma/Spiro.R BC (Bld) [Mass ratio] 4-20 Normal 0-3 [facility] Comment on above: Performed By: #### 1 [id number] ####[address] [address] Nitrite Ql (U) Negative Normal Negative [facility] Comment on above: Performed By: #### 1 [id number] ####[facility] [address] [place] [address] pH (U) 7.5 [pH] Invalid Interpretation Code 5.0-9.0 [facility] Comment on above: Performed By: #### 1 [id number] ####[facility] [address] [place] [address] Protein (U) [Mass/Vol] Negative Normal Negative [facility] Comment on above: Performed By: #### 1 [id number] ####[facility] [address] [place] [address] Specific gravity (U) [Rel density] 1.010 Invalid Interpretation Code 1.005-1.030 [facility] Comment on above: Performed By: #### 1 [id number] ####[address] [address] Type of Urine collection method Clean Catch Normal [facility] Comment on above: Performed By: #### 1 [id number] ####[facility] [address] [place] [address] Urobilinogen Qn (U) 0.2 {Malachi'U}/dL Normal 0.0-1.0 [facility] Comment on above: Performed By: #### 1 [id number] ####[facility] [address] [place] [address] WBC Auto Ql (U) Negative Normal Negative [facility] Comment on above: Performed By: #### 1 [id number] ####[facility] [address] [place] [address] WBC LM.HPF (Urine sed) [#/Area] 0-5 Normal 0-5 [facility] Comment on above: Performed By: #### 1 [id number] ####[facility] [address] [place] [address] eGFRon 01-06-2023 GFR/1.73 sq M.predicted among non-blacks MDRD (S/P/Bld) [Vol rate/Area] 69 mL/min/1.73 m2 Normal >=59 [facility] Comment on above: Order Comment: Order added by Discern Expert. Result Comment: Habilitative Interventionist hilary kidney disease could be indicated at eGFR's of less than 60 mL/min/1.73m2. Kidney failure is indicated at less than 15 mL/min/1.73m2. Performed By: #### 1 [id number] #### [facility] [address] [place] [address] Auto Diffon 12-10-2022 Basophils/100 WBC (Bld) 0.3 % Normal 0.0-2.0 [facility] Comment on above: Order Comment: Order Added by Discern Expert. Performed By: #### 1 [id number], [id number], [id number], [id number] #### [facility] [address] [place] [address] Basophils/Leukocytes Auto (Bld) [Pure # fraction] 0.0 E9/L Normal 0.0-0.2 [facility] Comment on above: Order Comment: Order Added by Discern Expert. Performed By: #### 1 [id number], [id number], [id number], [id number] #### [facility] [address] [place] [address] Eosinophils/100 WBC (Bld) 4.0 % Normal 0.0-8.0 [facility] Comment on above: Order Comment: Order Added by Discern Expert. Performed By: #### 1 [id number], [id number], [id number], [id number] #### [facility] [address] [place] [address] Eosinophils/Leukocytes Auto (Bld) [Pure # fraction] 0.2 E9/L Normal 0.0-0.5 [facility] Comment on above: Order Comment: Order Added by Mackenzie Expert. Performed By: #### 1 [id number], [id number], [id number], [id number] #### [facility] [address] [place] [address] Lymphocytes/100 WBC (Bld) 37.8 % Normal 14.0-50.0 [facility] Comment on above: Order Comment: Order Added by Discern Expert. Performed By: #### 1 [id number], 409357578, [id number], 91167092 #### [facility] [address] [place] [address] Lymphocytes/Leukocytes Auto (Bld) [Pure # fraction] 2.2 E9/L Normal 1.0-4.0 [facility] Comment on above: Order Comment: Order Added by Discern Expert. Performed By: #### 1 [id number], 212582382, 1469973834, 29693614 #### [facility] [address] [place] [address] Monocytes/100 WBC (Bld) 9.3 % Normal 4.0-14.0 [facility] Comment on above: Order Comment: Order Added by Discern Expert. Performed By: #### 1 [id number], [id number], [id number], 13202586 #### [facility] [address] [place] [address] Monocytes/Leukocytes Auto (Bld) [Pure # fraction] 0.5 E9/L Normal 0.2-1.0 [facility] Comment on above: Order Comment: Order Added by Discern Expert. Performed By: #### 1 [id number], [id number], [id number], 27079836 #### [facility] [address] [place] [address] Neutrophils/100 WBC (Bld) 48.6 % Normal 36.0-75.0 [facility] Comment on above: Order Comment: Order Added by Discern Expert. Performed By: #### 1 [id number], 411639568, [id number], 39688542 #### [facility] [address] [place] [address] Neutrophils/Leukocytes Auto (Bld) [Pure # fraction] 2.8 E9/L Normal 2.0-7.5 [facility] Comment on above: Order Comment: Order Added by Discern Expert. Performed By: #### 1 [id number], [id number], 9944568148, 06275254 #### [facility] [address] [place] [address] CBC w/ Auto Diffon 3 Erythrocyte distribution width (RBC) [Ratio] 15.2 % High 10.9-14.2 [facility] Comment on above: Performed By: #### 1 [id number], 226510222, [id number], 75521161 #### [facility] [address] [place] [address] Hematocrit (Bld) [Volume fraction] 37.1 % Normal 34.0-46.0 [facility] Comment on above: Performed By: #### 1 [id number], 145149164, 0265094763, 47643443 #### [facility] [address] [place] [address] Hemoglobin (Bld) [Mass/Vol] 12.6 g/dL Normal 12.0-16.0 [facility] Comment on above: Performed By: #### 1 [id number], 466960151, [id number], 70542120 #### [facility] [address] [place] [address] MCH (RBC) [Entitic mass] 28.3 pg Normal 27.0-34.0 [facility] Comment on above: Performed By: #### 1 [id number], 406010657, 3462128804, 44389138 #### [facility] [address] [place] [address] MCHC (RBC) [Mass/Vol] 34.0 g/dL Normal 31.4-36.0 [facility] Comment on above: Performed By: #### 1 [id number], [id number], [id number], 45950990 #### [facility] [address] [place] [address] MCV (RBC) [Entitic vol] 83.2 fL Normal 80.0-100.0 [facility] Comment on above: Performed By: #### 1 [id number], [id number], 7484101856, 38366473 #### [facility] [address] [place] [address] Platelet mean volume (Bld) [Entitic vol] 7.9 fL Normal 6.4-10.8 [facility] Comment on above: Performed By: #### 1 [id number], 606589180, [id number], 49184027 #### [facility] [address] [place] [address] Platelets (Bld) [#/Vol] 433.0 E9/L Normal 150.0-500.0 [facility] Comment on above: Performed By: #### 1 [id number], 456901282, [id number], 85534283 #### [facility] [address] [place] [address] RBC (Bld) [#/Vol] 4.5 E12/L Normal 4.3-5.9 [facility] Comment on above: Performed By: #### 1 [id number], 877706171, 0283079612, 60034355 #### [facility] [address] [place] [address] WBC corrected for nucl RBC Auto (Bld) [#/Vol] 5.7 E9/L Normal 4.0-11.0 [facility] Comment on above: Performed By: #### 1 [id number], 063753335, [id number], 02831358 #### [facility] [address] [place] [address] Consent for Treatmenton 11-30 Consent for Treatment [id number] 0CD:127 Normal [facility] Discharge Instructionson Discharge Instructions [id number]. 00CD:127 Normal [facility] ED Clinical Summaryon 2022 ED Clinical Summary [address] [address] ED Clinical Summary Person Information Name: GIOVANNA STREETER [place] Age: 47 Years : 1975 Sex: Female Language: Comoran PCP: REBECCA NAVAS CNP Marital Status: Visit Id: Visit Reason: Dental pain; DENTAL PAIN Speciality: Acuity: 4 Enc Type: Emergency Med Service: Emergency Arrival: 12/10/2022 00:37:36 Discharge: 12/10/2022 02:34:01 LOS: 000 01:57 Checkin: 12/10/2022 00:37:36 Checkout: 12/10/2022 02:34:01 Dispo Type: Home (Routine DC) EVENTS: Event Name Event Status Request Date/Time Start Date/Time Complete Date/Time Arrive Complete 12/10/2022 00:37:36 12/10/2022 00:37:36 12/10/2022 00:37:36 Document Home Meds Request 12/10/2022 00:37:36 Triage Complete 12/10/2022 00:37:36 12/10/2022 00:45:08 12/10/2022 00:45:08 Bed Assign Complete 12/10/2022 00:39:53 12/10/2022 00:39:53 12/10/2022 00:39:53 Dr Exam Complete 12/10/2022 00:39:53 12/10/2022 00:41:30 12/10/2022 00:41:30 RN Exam Complete 12/10/2022 00:39:53 12/10/2022 00:46:28 12/10/2022 00:46:28 Registration Complete 12/10/2022 00:40:11 12/10/2022 00:40:11 12/10/2022 00:40:11 Reg Complete Request 12/10/2022 00:40:11 Reg Bed Request Complete 12/10/2022 00:40:11 12/10/2022 00:40:11 12/10/2022 00:40:11 Registration Request 12/10/2022 00:41:30 Pending Labs Complete 12/10/2022 00:51:39 12/10/2022 02:24:11 Lab Complete 12/10/2022 00:51:39 12/10/2022 02:24:11 Urine Collect Complete 12/10/2022 00:51:39 12/10/2022 01:50:01 Meds Admin Complete 12/10/2022 00:51:39 12/10/2022 01:05:54 Pending Labs Complete 12/10/2022 02:24:11 12/10/2022 02:24:11 12/10/2022 02:24:15 Lab Complete 12/10/2022 02:24:11 12/10/2022 02:24:11 12/10/2022 02:24:15 Discharge Complete 12/10/2022 02:27:58 12/10/2022 02:34:06 12/10/2022 02:34:06 Transfer Complete 12/10/2022 02:34:06 12/10/2022 02:34:06 12/10/2022 02:34:06 ADDRESS: [address] [place] [id number] PHYS DOC NOTES: MEDICAL INFORMATION: Prescriptions Given: New Medications [id number], [address], [place] [id number], [phone] clindamycin (clindamycin 150 mg Cap) 2 Capsules By Mouth 3 times a day for 7 Days. Refills: 0. Medications to Continue Taking That Have Changed [id number], [address], [place] [id number], [phone] START: naproxen (Naprosyn 500 mg Tab) 1 Tablets By Mouth 2 times a day as needed for pain. Refills: 0. Other Medications START: naproxen (Naprosyn 500 mg Tab) 1 Tablets By Mouth 2 times a day as needed for pain. Refills: 0. START: naproxen (naproxen 500 mg oral enteric coated tablet) 1 Tablets By Mouth 2 times a day as needed Pain. Refills: 0. Medications to Continue with No Changes Other Medications acetaminophen-hydrocod one ([place] 325 mg-5 mg oral tablet) 1 Tablets By Mouth every 4 hours as needed for pain. Refills: 0. atorvastatin (atorvastatin 20 mg Tab) 1 Tablets By Mouth every day. azithromycin (Zithromax) 250 Milligram By Mouth. brompheniramine/dextro methorphan/PSE (Bromfed DM oral syrup) 5 Milliliter By Mouth 4 times a day as needed for cough and congestion. Refills: 0. cyclobenzaprine (cyclobenzaprine 10 mg Tab) 1 Tablets By Mouth 3 times a day as needed Muscle pain. Refills: 0. lisinopril 20 Milligram By Mouth every day. omeprazole (omeprazole 20 mg Cap-DR) 1 Capsules By Mouth every day. ondansetron (Zofran ODT 4 mg Tab-Dis) 1 Tablets By Mouth every 8 hours as needed Nausea/Vomiting. Refills: 0. predniSONE (predniSONE 20 mg Tab) 1 Tablets By Mouth As Directed. take two tabs daily for 5 days, then one tab daily for 5 days.. Refills: 0. PATIENT EDUCATION INFORMATION: Instructions: Dental Pain, Txeo-fu-Culc; Abnormal Uterine Bleeding, Lqir-lw-Ftgu Follow up: With: Address: When: Dental: [facility] [phone] In 3 days 12/13/2022 With: Address: When: [place] [facility] [phone] In 3 days 12/13/2022 With: Address: When: Dental: [facility] [phone] In 3 days 12/13/2022 With: Address: When: Varun Young [facility] [address]HIER, [facility] [address], [place] [address] [facility] (9) In 3 days 12/13/2022 Comments: Take the antibiotics as prescribed you have completed the course. You can use the naproxen every 12 hours as needed for pain. 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 Please return to the ED for any new or worsening symptoms With: Address: When: REBECCA NAVAS [address] [place] [address] In 3 days 12/13/2022 DIAGNOSIS: Abnormal uterine bleeding; Pain, dental Normal [facility] ED Note-Physicianon 12-11-19 ED Note-Physician Basic Information Time Seen: Marshall Henriquez DO 12/10/2022 00:41 Chief Complaint pt to ED with c/o L sided dental pain. has not seen dentist. states unable to get into dentist till next year. denies fevers or chills. History of Present Illness Patient is a 47-year-old female past medical history of hypertension presenting to the ED for evaluation of dental pain. Patient states she has had left-sided dental pain for the last several days, is unable to get into a dentist until next year. Patient also notes she started having vaginal bleeding approximately 3 to days ago. Patient states she feels weak, denies any fevers, chills, nausea or vomiting. Review of Systems A 10 point review of systems is negative except as noted above. Medical and Surgical History: Reviewed and noted Social history: Lives at home Tobacco: Denies Physical Exam Vitals & Measurements T: 36.5 ?C(Oral) HR: 81(Peripheral) RR: 18 BP: 151/85 SpO2: 100% HT: 160 cm WT: 93 kg BMI: 36.33 General: Well developed, non toxic appearing, no acute distress HEENT: Head atraumatic, Mucosa moist, hearing grossly normal, mild dental caries noted #16 and 18, mild erythema Neck: No JVD, tracheal deviation Cardiac: Regular rate, rhythm, no murmurs, or gallops, 2+ radial pulses Respiratory: Lungs clear to auscultation B/L, normal respiratory effort Abdomen: Soft non tender, no rebound or guarding, no peritoneal signs Extremities: No edema noted in the LE B/L, no tenderness to palpation Neurologic: Alert and oriented, speech clear Skin: No rashes or lesions Psych: Appropriate mood and behavior Medical Decision Making MEDICAL DECISION MAKING Number and Complexity of Problems Differential Diagnosis: [] [facility] Data External documents reviewed: [] My EKG interpretation: [] My CT interpretation: [] My X-ray interpretation: [] My Ultrasound interpretation: [] Decision rules/scores evaluated: [] Discussed with: [] Treatment and Disposition ED Course: Patient is a 47-year-old female presenting to the ED for evaluation of dental pain in addition to vaginal bleeding. Patient nontoxic and on arrival, no acute distress. Mild dental caries noted on examination. Patient is given naproxen, clindamycin in addition to topical numbing agents. CBC and test are obtained. Patient's laboratory evaluations unremarkable, hemoglobin improved from previous hemoglobin is negative urine negative for infection. Patient is discharged home on clindamycin, naproxen. She is follow-up with her primary care doctor, dentist, [employer]INE[employer]. Return to the ED for any new or worsening symptoms or Shared decision making: [] Code status: [] Assessment/Plan Abnormal uterine bleeding (N93.9: Abnormal uterine and vaginal bleeding, unspecified) Pain, dental (K08.89: Other specified disorders of teeth and supporting structures) Orders: benzocaine topical, 1 iliana, Gel, Topical, Once, Stop date 12/10/22 0:50:00 EDT, STAT, Start date 12/10/22 0:50:00 EDT clindamycin, 300 mg = 2 cap(s), Oral, TID, X 7 day(s), # 42 cap(s), Refills(s) 0, Pharmacy: [facility] #[id number], 160, cm, 12/10/22 0:45:00 EDT, Height/Length Dosing, 93, kg, 12/10/22 0:45:00 EDT, Weight Dosing clindamycin, 300 mg = 2 cap(s), Cap, Oral, Once, Stop date 12/10/22 0:51:00 EDT, STAT, Start date 12/10/22 0:51:00 EDT, 12/10/22 0:51:00 EDT lidocaine, 100 mg, 10 mL, Injection, TransDermal, Once, Stop date 12/10/22 0:50:00 EDT, STAT, Start date 12/10/22 0:50:00 EDT naproxen, 500 mg = 2 tab(s), Tab, Oral, Once, Stop date 12/10/22 0:50:00 EDT, STAT, Start date 12/10/22 0:50:00 EDT, 12/10/22 0:50:00 EDT naproxen, 500 mg = 1 tab(s), Oral, BID, PRN for pain, # 20 tab(s), Refills(s) 0, Pharmacy: [facility] #[id number], 160, cm, 12/10/22 0:45:00 EDT, Height/Length Dosing, 93, kg, 12/10/22 0:45:00 EDT, Weight Dosing Automated Diff CBC w/ Auto Diff U Beta Hcg Qual UA With Cult Reflex Medications Administered Given clindamycin 150 mg Cap, 300 mg, Oral naproxen 250 mg Tab, 500 mg, Oral Disposition Plan Discharge Prescription List Prescriptions clindamycin 150 mg Cap, 300 mg= 2 cap(s), Oral, TID Naprosyn 500 mg Tab, 500 mg= 1 tab(s), Oral, BID, PRN Follow-up With When Contact Information Dental: [facility] [phone] In 3 days 12/13/2022 EDT Additional Instructions: [place] [facility] [phone] In 3 days 12/13/2022 EDT Additional Instructions: Dental: [facility] [phone] In 3 days 12/13/2022 EDT Additional Instructions: Varun Young In 3 days 12/13/2022 EDT [address], [address] [place] [id number] [facility] (1) Additional Instructions: Take the antibiotics as prescribed you have completed the course. You can use the naproxen every 12 hours as needed for pain. 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 Please return to the ED for any new or worsening symptoms (more content not included)... Normal [facility] Comment on above: Result Comment: Elec tronically Signed By: Marshall Henriquez DO\.br\Date and Time Signed: 12/10/22 02:28 EDT ED Patient Education Noteon 12-10-2022 ED Patient Education Note Dentistry Dental Pain Dental pain is often a sign that something is wrong with your teeth or gums. You can also have pain after a dental treatment. If you have dental pain, it is important to contact your dentist, especially if the cause of the pain is not known. Dental pain may hurt a lot or a little and can be caused by many things, including: ? Tooth decay (cavities or caries). ? Infection. ? The inner part of the tooth being filled with pus (an abscess). ? Injury. ? A crack in the tooth. ? Gums that move back and expose the root of a tooth. ? Gum disease. ? Abnormal grinding or clenching of teeth. ? Not taking good care of your teeth. Sometimes the cause of pain is not known. You may have pain all the time, or it may happen only when you are: ? Chewing. ? Exposed to hot or cold temperatures. ? Eating or drinking foods or drinks that have a lot of sugar in them, such as soda or candy. Follow these instructions at home: Medicines ? Take iggd-mib-sfojozc and prescription medicines only as told by your dentist. ? If you were prescribed an antibiotic medicine, take it as told by your dentist. Do not stop taking it even if you start to feel better. Eating and drinking Do not eat foods or drinks that cause you pain. These include: ? Very hot or very cold foods or drinks. ? Sweet or sugary foods or drinks. Managing pain and swelling ? If told, put ice on the painful area of your face. To do this: ? Put ice in a plastic bag. ? Place a towel between your skin and the bag. ? Leave the ice on for 20 minutes, 2?3 times a day. ? Take off the ice if your skin turns bright red. This is very important. If you cannot feel pain, heat, or cold, you have a greater risk of damage to the area. Brushing your teeth ? [place] your teeth twice a day using a fluoride toothpaste. ? Use a toothpaste made for sensitive teeth as told by your dentist. ? Use a soft toothbrush. General instructions ? Floss your teeth at least once a day. ? Do not put heat on the outside of your face. ? Rinse your mouth often with salt water. To make salt water, dissolve ??1 tsp (3?6 g) of salt in 1 cup (237 mL) of warm water. ? Watch your dental pain. Let your dentist know if there are any changes. ? Keep all follow-up visits. Contact a dentist if: ? You have dental pain and you do not know why. ? Medicine does not help your pain. ? Your symptoms get worse. ? You have new symptoms. Get help right away if: ? You cannot open your mouth. ? You are having trouble breathing or swallowing. ? You have a fever. ? Your face, neck, or jaw is swollen. These symptoms may be an emergency. Get help right away. Call your local emergency services (911 in the [place] ? Do not wait to see if the symptoms will go away. ? Do not drive yourself to the hospital. Summary ? Dental pain may be caused by many things, including tooth decay, injury, or infection. In some cases, the cause is not known. ? Dental pain may hurt a lot or very little. You may have pain all the time, or you may have it only when you eat or drink. ? Take ywjf-pfm-jnrfqun and prescription medicines only as told by your dentist. ? Watch your dental pain for any changes. Let your dentist know if symptoms get worse. This information is not intended to replace advice given to you by your health care provider. Make sure you discuss any questions you have with your health care provider. Document Revised: 12/21/2020 Document Reviewed: 12/21/2020 [employer] Patient Education ? 2022 [employer]. Obstetrics and Gynecology Abnormal Uterine Bleeding Abnormal uterine bleeding means bleeding more than normal from your womb (uterus). It can include: ? Bleeding after sex. ? Bleeding between monthly (menstrual) periods. ? Bleeding that is heavier than normal. ? Monthly periods that last longer than normal. ? Bleeding after you have stopped having your monthly period (menopause). You should see a doctor for any kind of bleeding that is not normal. Treatment depends on the cause of your bleeding and how much you bleed. Follow these instructions at home: Medicines ? Take sjow-zkh-xhmxaoi and prescription medicines only as told by your doctor. ? Ask your doctor about: ? Taking medicines such as aspirin and ibuprofen. Do not take these medicines unless your doctor tells you to take them. ? Taking uxqh-ouq-slzhzub medicines, vitamins, herbs, and supplements. ? You may be given iron pills. Take them as told by your doctor. Managing constipation If you take iron pills, you may need to take these actions to prevent or treat trouble pooping (constipation): ? Drink enough fluid to keep your pee (urine) pale yellow. ? Take qvpo-sbz-jlhyvsd or prescription medicines. ? Eat foods that are high in fiber. These include beans, whole grains, and fresh fruits and vegetables. (more content not included)... Normal [facility] ED Patient Summaryon 023 ED Patient Summary [address] [address] Patient Discharge Instructions Person Information Name: GIOVANNA STREETER Age: 47 Years Arrival Date: 12/10/2022 00:37:36 Discharge Diagnosis: Abnormal uterine bleeding; Pain, dental Primary Care Physician: REBECCA NAVAS CNP Provider Information Primary Provider: Marshall Henriquez DO Advanced Cigarette Lighter Repairer:None The exam and treatment you received in the Emergency Department were for an urgent problem and are not intended as complete care. It is important that you follow up with a doctor, nurse practitioner, or physician?s medical assistant float for ongoing care. If your symptoms become worse or you do not improve as expected and you are unable to reach your usual health care provider, you should return to the Emergency Department. We are available 24 hours a day. GIOVANNA STREETER has been given the following list of patient education materials, prescriptions and follow-up instructions: Follow-up Instructions: With: Address: When: Dental: [facility] [phone] In 3 days 12/13/2022 With: Address: When: [place]: [place] [facility] [phone] In 3 days 12/13/2022 With: Address: When: Dental: [facility] [phone] In 3 days 12/13/2022 With: Address: When: Varun Young [address] [place] [address], [address] [address] [facility] (1) In 3 days 12/13/2022 Comments: Take the antibiotics as prescribed you have completed the course. You can use the naproxen every 12 hours as needed for pain. 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 Please return to the ED for any new or worsening symptoms With: Address: When: REBECCA NAVAS [address] [place] [address] In 3 days 12/13/2022 In the event that this physician does not participate in your insurance network, please consult with your insurance company to find a nearby participating provider. Patient Education Materials: Dental Pain, Rwud-bj-Wrth; Abnormal Uterine Bleeding, Hnvj-fn-Wnbg A MESSAGE TO ALL PATIENTS REGARDING OPIOIDS PRESCRIPTION OPIOIDS: WHAT YOU NEED TO KNOW Prescription opioids can be used to help relieve chlypzuw-hm-nhviaf pain and are often prescribed following a surgery or injury, or for certain health conditions. These medications can be an important part of the treatment but also come with serious risks. It is important to work with your healthcare provider to make sure you are getting the safest, most effective care. WHAT ARE THE RISKS AND SIDE EFFECTS OF OPIOID USE? Prescription opioids carry serious risks of addiction and overdose, especially with prolonged use. An opioid overdose, often marked by slowed breathing, can cause sudden . The use of prescription opioids can have a number of side effects as well, even when taken as directed: ? Tolerance?meaning you might need to take more of the medication for the same pain relief ? Physical dependence?meaning you have symptoms of withdrawal when a medication is stopped ? Increased sensitivity to pain ? Constipation ? Nausea, vomiting, and dry mouth ? Sleepiness and dizziness ? Confusion ? Depression ? Low levels of testosterone that can result in lower sex drive, energy, and strength ? Itching and sweating RISKS ARE GREATER WITH: ? History of drug misuse, substance use disorder, or overdose ? Mental health conditions (such as depression or anxiety) ? Sleep apnea ? Older age (65 years and older) ? Avoid alcohol while taking prescription opioids. Also, unless specifically advised by your health care provider, medications to avoid include: ? Benzodiazepines (such as Xanax or Valium) ? Muscle relaxants (such as Soma or Flexeril) ? Hypnotics (such as Ambien or Lunesta) ? Other prescription opioids KNOW YOUR OPTIONS Talk to your health care provider about ways to manage your pain that don?t involve prescription opioids. Some of these options may actually work better and have fewer risks and side effects. Options may include: ? Pain relievers such as acetaminophen, ibuprofen, and naproxen ? Some medication that are also used for depression or seizures ? Physical therapy and exercise ? Cognitive behavioral therapy, a psychological, goal-directed approach, in which patients learn how to modify physical, behavioral, and emotional triggers of pain and stress. IF YOU ARE PRESCRIBED OPIOIDS FOR PAIN: ? Never take opioids in greater amounts or more often than prescribed. ? Follow up with your primary health care provider. o Work together to create a plan on how to manage your pain. o Talk about ways to help manage your pain that don?t involve prescription opioids. o Talk about any and all concerns and side effects. ? Help prevent misuse and abuse o Never sell or share prescription opioids. o N (more content not included)... Normal [facility] HEMATOLOGYOrdered By: [employer] on 12-10-2022 Basophils/100 WBC (Bld) 0.3 % Normal 0.0 - 2.0 % [facility] HemeAutoSS Basophils/Leukocytes Auto (Bld) [Pure # fraction] 0.0 E9/L Normal 0.0 - 0.2 E9/L [facility] HemeAutoSS Eosinophils/100 WBC (Bld) 4.0 % Normal 0.0 - 8.0 % [facility] HemeAutoSS Eosinophils/Leukocytes Auto (Bld) [Pure # fraction] 0.2 E9/L Normal 0.0 - 0.5 E9/L [facility] HemeAutoSS Lymphocytes/100 WBC (Bld) 37.8 % Normal 14.0 - 50.0 % [facility] HemeAutoSS Lymphocytes/Leukocytes Auto (Bld) [Pure # fraction] 2.2 E9/L Normal 1.0 - 4.0 E9/L [facility] HemeAutoSS Monocytes/100 WBC (Bld) 9.3 % Normal 4.0 - 14.0 % [facility] HemeAutoSS Monocytes/Leukocytes Auto (Bld) [Pure # fraction] 0.5 E9/L Normal 0.2 - 1.0 E9/L [facility] HemeAutoSS Neutrophils/100 WBC (Bld) 48.6 % Normal 36.0 - 75.0 % [facility] HemeAutoSS Neutrophils/Leukocytes Auto (Bld) [Pure # fraction] 2.8 E9/L Normal 2.0 - 7.5 E9/L [facility] HemeAutoSS HEMATOLOGYOrdered By: Ganesh Mandujano on 12-10-2022 Erythrocyte distribution width (RBC) [Ratio] 15.2 % High 10.9 - 14.2 % [facility] HemeAutoSS Hematocrit (Bld) [Volume fraction] 37.1 % Normal 34.0 - 46.0 % [facility] HemeAutoSS Hemoglobin (Bld) [Mass/Vol] 12.6 g/dL Normal 12.0 - 16.0 gm/dL [facility]eAuto[facility] MCH (RBC) [Entitic mass] 28.3 pg Normal 27. 0 - 34.0 pg [facility]eAuto[facility] MCHC (RBC) [Mass/Vol] 34.0 g/dL Normal 31.4 - 36.0 gm/dL [facility]eAutoSS MCV (RBC) [Entitic vol] 83.2 fL Normal 80.0 - 100.0 fL [facility]eAuto[facility] Platelet mean volume (Bld) [Entitic vol] 7.9 fL Normal 6.4 - 10.8 fL [facility] HemeAutoSS Platelets (Bld) [#/Vol] 433.0 E9/L Normal 150. 0 - 500.0 E9/L [facility]eAuto[facility] RBC (Bld) [#/Vol] 4.5 E12/L Normal 4.3 - 5.9 E12/L [facility]eAuto[facility] WBC corrected for nucl RBC Auto (Bld) [#/Vol] 5.7 E9/L Normal 4.0 - 11.0 E9/L [facility] HemeAutoSS SEROLOGYOrdered By: Ganesh stein on 12-10-2022 HCG.beta subunit (U) [Moles/Vol] Negative Normal [facility] Sero U BetaHcg Qualon 12-10-2022 HCG.beta subunit (U) [Moles/Vol] Negative Normal [facility] Comment on above: Performed By: #### 2 [id number] #### [facility] [address] [place] [address] UA With Cult Reflexon 2022 Bilirubin Ql (U) Negative Normal Negative [facility] Comment on above: Performed By: #### 2 [id number], [id number] #### [facility] [address] [place] [address] Clarity (U) CLEAR Normal Clear [facility] Comment on above: Performed By: #### 2 [id number] #### [facility] [address] [place] [address] Color (U) YELLOW Normal Yellow [facility] Comment on above: Performed By: #### 2 [id number], [id number] #### [facility] [address] [place] [address] Epithelial cells.squamous LM.HPF (Urine sed) [#/Area] 0-2 Normal 0-2 [facility] Comment on above: Performed By: #### 2 [id number], [id number] #### [facility] [address] [place] [address] Glucose Test strip (U) [Mass/Vol] Negative Normal Negative [facility] Comment on above: Performed By: #### 2 [id number], [id number] #### [facility] [address] [place] [address] Hemoglobin Ql (U) 3+ Abnormal Negative [facility] Comment on above: Performed By: #### 2 [id number], [id number] #### [facility] [address] [place] [address] Ketones (U) [Mass/Vol] Negative Normal Negative [facility] Comment on above: Performed By: #### 2 [id number], [id number] #### [facility] [address] [place] [address] Spiro.plasma/Spiro.R BC (Bld) [Mass ratio] 4-20 Normal 0-3 [facility] Comment on above: Performed By: #### 2 [id number], [id number] #### [facility] [address] [place] [address] Nitrite Ql (U) Negative Normal Negative [facility] Comment on above: Performed By: #### 2 [id number] #### [facility] [address] [place] [address] pH (U) 6.0 [pH] Invalid Interpretation Code 5.0-9.0 [facility] Comment on above: Performed By: #### 2 [id number], [id number] #### [facility] [address] [place] [address] Protein (U) [Mass/Vol] Negative Normal Negative [facility] Comment on above: Performed By: #### 2 [id number], [id number] #### [facility] [address] [place] [address] Specific gravity (U) [Rel density] 1.010 Invalid Interpretation Code 1.005-1.030 [facility] Comment on above: Performed By: #### 2 [id number], [id number] #### [facility] [address] [place] [address] Type of Urine collection method Clean Catch Normal [facility] Comment on above: Performed By: #### 2 [id number], [id number] #### [facility] [address] [place] [address] Urobilinogen Qn (U) 0.2 {Malachi'U}/dL Normal 0.0-1.0 [facility] Comment on above: Performed By: #### 2 [id number], [id number] #### [facility] [address] [place] [address] WBC Auto Ql (U) Negative Normal Negative [facility] Comment on above: Performed By: #### 2 [id number], [id number] #### [facility] [address] [place] [address] WBC LM.HPF (Urine sed) [#/Area] 0-5 Normal 0-5 [facility] Comment on above: Performed By: #### 2 [id number], [id number] #### [facility] [address] [place] [address] URINALYSISOrdered By: Ganesh Mandujano on 12-10-2022 Bilirubin Ql (U) Negative (12/10/22 1:24 AM) Normal Negative [facility] UA Auto SS Clarity (U) Clear (12/10/22 1:24 AM) Normal Clear [facility] UA Auto SS Color (U) Yellow (12/10/22 1:24 AM) Normal Yellow [facility] UA Auto SS Epithelial cells.squamous LM.HPF (Urine sed) [#/Area] 0-2 /HPF Normal 0-2/HPF [facility] UA Aut o SS Glucose Test strip (U) [Mass/Vol] Negative (12/10/22 1:24 AM) Normal Negative [facility] UA Auto SS Hemoglobin Ql (U) 3+ *ABN* (12/10/22 1:24 AM) Invalid Interpretation Code Negative [facility] UA Auto SS Ketones (U) [Mass/Vol] Negative (12/10/22 1:24 AM) Normal Negative [facility] UA Auto SS Spiro.plasma/Spiro.R BC (Bld) [Mass ratio] 4-20 /HPF Normal 0-3/HPF [facility]A Au to SS Nitrite Ql (U) Negative (12/10/22 1:24 AM) Normal Negative [facility] UA Auto SS pH (U) 6.0 *NA* (12/10/22 1:24 AM) Invalid Interpretation Code 5.0 - 9.0 [facility] UA Auto SS Protein (U) [Mass/Vol] Negative (12/10/22 1:24 AM) Normal Negative [facility] UA Auto SS Specific gravity (U) [Rel density] 1.010 *NA* (12/10/22 1:24 AM) Invalid Interpretation Code 1.005 - 1.030 [facility] UA Auto SS UA Spec Desc Clean Catch (12/10/22 1:24 AM) Normal [facility] UA Auto SS Urobilinogen Qn (U) 0.4382251 {Malachi'U}/dL Normal 0.0 - 1.0 EU/dL [facility] UA Auto SS WBC Auto Ql (U) Negative (12/10/22 1:24 AM) Normal Negative [facility] UA Auto SS WBC LM.HPF (Urine sed) [#/Area] 0-5 /HPF Normal 0-5/HPF [facility] UA Auto SS Activated partial thrombopla stin time (aPTT) in platelet poor plasma by coagulation aOrdered By: Drew Ba on 11-25-2022 aPTT Coag (PPP) [Time] 31.6 s 25.1-36.5 [facility] Basophils Auto (Bld) [#/Vol] Ordered By: Drew Ba on 11-25-2022 Basophils (Bld) [#/Vol] 0.0 10*3/uL 0.0-0.2 [facility] Basophils/100 WBC Auto (Bld) Ordered By: Drew Ba on 11-25-2022 Basophils/100 WBC (Bld) 0.3 % . [facility] Calcium [Mass/volume] in Ser um or PlasmaOrdered By: Drew Ba on 11-25-2022 Calcium [Mass/Vol] 8.9 mg/dL 8.6-10.3 [facility] Carbon dioxide, total [Moles /volume] in Serum or PlasmaOrdered By: Drew Ba on 11-25-2022 CO2 [Moles/Vol] 25.1 mmol/L 21.0-31.0 [facility] Chloride [Moles/volume] in S jett or PlasmaOrdered By: Drew Ba on 11-25-2022 Chloride [Moles/Vol] 103 mmol/L 98-107 [facility] Creatinine [Mass/volume] in Serum or PlasmaOrdered By: Drew Ba on 11-25-2022 Creatinine [Mass/Vol] 0.53 mg/dL 0.60-1.20 [facility] Eosinophils Auto (Bld) [#/Vo l]Ordered By: Drew Ba on 11-25-2022 Eosinophils (Bld) [#/Vol] 0.2 10*3/uL 0.0-0.45 [facility] Eosinophils/100 WBC Auto (Bl d)Ordered By: Drew Ba on 11-25-2022 Eosinophils/100 WBC (Bld) 3.1 % . [facility] Erythrocyte distribution wid th Auto (RBC) [Ratio]Ordered By: Drew Ba on 11-25-2022 Erythrocyte distribution width (RBC) [Ratio] 14.9 % 11.9-15.3 [facility] Glucose [Mass/volume] in Ser um or PlasmaOrdered By: Drew Ba on 11-25-2022 Glucose [Mass/Vol] 106 mg/dL 70-100 [facility] Hematocrit Auto (Bld) [Volum e fraction]Ordered By: Drew Ba on 11-25-2022 Hematocrit (Bld) [Volume fraction] 36.9 % 34.0-46.4 [facility] Hemoglobin [Mass/volume] in BloodOrdered By: Drew Ba on 11-25-2022 Hemoglobin (Bld) [Mass/Vol] 12.5 g/dL 11.8-15.4 [facility] INR in Platelet poor plasma by Coagulation assayOrdered By: Drew Ba on 11-25-2022 INR Coag (PPP) [Relative time] 1.0 {INR} [facility] Leukocytes [#/volume] correc jacki for nucleated erythrocytes in Blood by Automated counOrdered By: Drew Ba on 11-25-2022 WBC corrected for nucl RBC Auto (Bld) [#/Vol] 5.7 10*3/uL 3.8-11.6 [facility] Lymphocytes Auto (Bld) [#/Vo l]Ordered By: Drew Ba on 11-25-2022 Lymphocytes (Bld) [#/Vol] 1.6 10*3/uL 1.00-4.8 [facility] Lymphocytes/100 WBC Auto (Bl d)Ordered By: Drew Ba on 11-25-2022 Lymphocytes/100 WBC (Bld) 27.1 % . [facility] MCH Auto (RBC) [Entitic mass ]Ordered By: Drew Ba on 11-25-2022 MCH (RBC) [Entitic mass] 28.3 pg 24.7-34.3 [facility] MCHC Auto (RBC) [Mass/Vol]Or dered By: Drew Ba on 11-25-2022 MCHC (RBC) [Mass/Vol] 34.0 g/dL 32.0-35.0 [facility] MCV Auto (RBC) [Entitic vol] Ordered By: Drew Ba on 11-25-2022 MCV (RBC) [Entitic vol] 83.1 fL 80-100 [facility] Monocyte distribution width [Entitic volume] in Blood by AutomatedOrdered By: Drew Ba on 11-25-2022 Monocyte distribution width Auto (Bld) [Entitic vol] 21.03 % 0.00-20.00 [facility] Monocytes Auto (Bld) [#/Vol] Ordered By: Drew Ba on 11-25-2022 Monocytes (Bld) [#/Vol] 0.4 10*3/uL 0.0-0.8 [facility] Monocytes/100 WBC Auto (Bld) Ordered By: Drew Ba on 11-25-2022 Monocytes/100 WBC (Bld) 7.1 % . [facility] Natriuretic peptide B [Mass/ Vol]Ordered By: Drew Ba on 11-25-2022 Natriuretic peptide B (Bld) [Mass/Vol] 68.0 pg/mL 5-100 [facility] Neutrophils Auto (Bld) [#/Vo l]Ordered By: Drew Ba on 11-25-2022 Neutrophils (Bld) [#/Vol] 3.6 10*3/uL 1.8-7.7 [facility] Neutrophils/100 WBC Auto (Bl d)Ordered By: Drew Ba on 11-25-2022 Neutrophils/100 WBC (Bld) 62.4 % . [facility] No Panel InformationOrdered By: Drew Ba on 11-25-2022 11.4 s 9.0-12.9 [facility] > 60.0 mL/Min [facility] 138.69 [facility] Nucleated erythrocytes [Pres ence] in Blood by Automated countOrdered By: Drew Ba on 11-25-2022 Nucleated RBC Auto Ql (Bld) 0.2 /100{WBC} 0-0.5 [facility] Platelet mean volume Auto (B ld) [Entitic vol]Ordered By: Drew Ba on 11-25-2022 Platelet mean volume (Bld) [Entitic vol] 8.1 fL 6.3-10.7 [facility] Platelets Auto (Bld) [#/Vol] Ordered By: Drew aB on 11-25-2022 Platelets (Bld) [#/Vol] 302 10*3/uL 150-450 [facility] Potassium [Moles/volume] in Serum or PlasmaOrdered By: Drew Ba on 11-25-2022 Potassium [Moles/Vol] 3.7 mmol/L 3.5-5.1 [facility] RBC Auto (Bld) [#/Vol]Ordere d By: Drew Ba on 11-25-2022 RBC (Bld) [#/Vol] 4.44 10*6/uL 3.60-5.00 [facility] Serum or plasma anion gap de terminationOrdered By: Drew Ba on 11-25-2022 Anion gap [Moles/Vol] 12.6 mmol/L 6.0-15.0 [facility] Sodium [Moles/volume] in Ser um or PlasmaOrdered By: Drew Ba on 11-25-2022 Sodium [Moles/Vol] 137 mmol/L 136-145 [facility] Troponin I.cardiac [Mass/vol ume] in Serum or Plasma by Detection limit <= 0.01 ng/Ordered By: Drew Ba on 11-25-2022 Troponin I.cardiac DL <= 0.01 ng/mL [Mass/Vol] 8.6 pg/mL 0.0-15.0 [facility] Urea nitrogen [Mass/volume] in Serum or PlasmaOrdered By: Drew Ba on 11-25-2022 Urea nitrogen [Mass/Vol] 9 mg/dL 7 [facility] WBC Auto (Bld) [#/Vol]Ordere d By: Drew Ba on 11-25-2022 WBC (Bld) [#/Vol] 5.7 10*3/uL 3.8-11.6 [facility] COVID CepheidOrdered By: Richard Cortes on 11-20-2022 SARS-CoV-2 (COVID-19) RNA EMI+probe Ql (Unsp spec) Positive Negative [facility] SARS-CoV-2 (COVID-19) RNA EMI+probe Ql (Unsp spec) [facility] Automated erythrocytes count in urine sediment (number/area)Ordered By: Dustin Dorsey on 11-13-2022 RBC Auto (Urine sed) [#/Area] 3-4 [HPF] 0-4 [facility] Automated leukocytes count i n urine sediment (number/area)Ordered By: Dustin Dorsey on 11-13-2022 WBC Auto (Urine sed) [#/Area] 0-1 [HPF] 0-4 [facility] Bilirubin Test strip Ql (U)O rdered By: Dustin Dorsey on 11-13-2022 Bilirubin Ql (U) Negative Negative [facility] Color Auto (U)Ordered By: Charlene Dorsey on 11-13-2022 Color (U) Yellow Yellow [facility] Ketones Auto test strip (U) [Mass/Vol]Ordered By: Dustin Dorsey on 11-13-2022 Ketones (U) [Mass/Vol] Negative Negative [facility] Nitrite Test strip Ql (U)Ord ered By: Dustin Dorsey on 11-13-2022 Nitrite Ql (U) Negative Negative [facility] No Panel InformationOrdered By: Dustin Dorsey on 11-13-2022 0-8 [LPF] 0-8 [facility] Protein Auto test strip (U) [Mass/Vol]Ordered By: Dustin Dorsey on 11-13-2022 Protein (U) [Mass/Vol] Negative Negative [facility] Specific gravity Auto test s trip (U) [Rel density]Ordered By: Dustin Dorsey on 11-13-2022 Specific gravity (U) [Rel density] 1.021 1.001-1.030 [facility] Squamous epithelial cells de tection in urine sediment by light microscopyOrdered By: Dustin Dorsey on 11-13-2022 Epithelial cells.squamous LM Ql (Urine sed) 0-1 [HPF] 0-2 [facility] Urine bacteria detection by automated methodOrdered By: Dustin Dorsey on 11-13-2022 Bacteria Auto Ql (U) None seen None Seen [facility] Urine clarity by refractomet ry automatedOrdered By: Dustin Dorsey on 11-13-2022 Clarity Refractometry automated (U) Clear Clear [facility] Urine glucose measurement by automated test strip (mass/volume)Ordered By: Dustin Dorsey on 11-13-2022 Glucose Auto test strip (U) [Mass/Vol] Normal mg/dL Normal [facility] Urine hemoglobin detection b y automated test stripOrdered By: Dustin Dorsey on 11-13-2022 Hemoglobin Auto test strip Ql (U) 1+ Negative [facility] Urine leukocyte esterase det ection by automated test stripOrdered By: Dustin Dorsey on 11-13-2022 Leukocyte esterase Auto test strip Ql (U) Negative Negative [facility] Urobilinogen Auto test strip (U) [Mass/Vol]Ordered By: Dustin Dorsey on 11-13-2022 Urobilinogen (U) [Mass/Vol] Normal mg/dL Normal [facility] pH Auto test strip (U)Ordere d By: Dustin Dorsey on 11-13-2022 pH (U) 5.5 [pH] 5.0-9.0 [facility] Consent for Treatmenton Consent for Treatment [id number] 0CD:127 Normal [facility] Discharge Instructionson Discharge Instructions [id number]:127 Normal [facility] ED Clinical Summaryon 2022 ED Clinical Summary [place] [id number] ED Clinical Summary Person Information Name: GIOVANNA STREETER [place] Age: 47 Years : 1975 Sex: Female Language: Comoran PCP: REBECCA NAVAS CNP Marital Status: Visit Id: Visit Reason: Knee pain-swelling; FALL/ KNEE PAIN Speciality: Acuity: 3 Enc Type: Emergency Med Service: Emergency Arrival: 11/03/2022 02:32:14 Discharge: 11/03/2022 04:14:28 LOS: 000 01:42 Checkin: 11/03/2022 02:32:14 Checkout: 11/03/2022 04:14:28 Dispo Type: Home (Routine DC) EVENTS: Event Name Event Status Request Date/Time Start Date/Time Complete Date/Time Arrive Complete 11/03/2022 02:32:14 11/03/2022 02:32:14 11/03/2022 02:32:14 Document Home Meds Request 11/03/2022 02:32:14 Triage Complete 11/03/2022 02:32:14 11/03/2022 02:56:11 11/03/2022 02:56:11 Registration Complete 11/03/2022 02:35:45 11/03/2022 02:35:45 11/03/2022 02:35:45 Reg Complete Request 11/03/2022 02:35:45 Reg Bed Request Complete 11/03/2022 02:35:45 11/03/2022 02:35:45 11/03/2022 02:35:45 Dr Exam Complete 11/03/2022 02:57:42 11/03/2022 02:57:42 11/03/2022 02:57:42 Registration Start 11/03/2022 02:57:42 11/03/2022 03:00:27 Bed Assign Complete 11/03/2022 03:00:27 11/03/2022 03:00:27 11/03/2022 03:00:27 RN Exam Complete 11/03/2022 03:00:27 11/03/2022 04:11:25 11/03/2022 04:11:25 X-Ray Complete 11/03/2022 03:13:29 11/03/2022 03:31:03 11/03/2022 03:59:16 Meds Admin Complete 11/03/2022 03:13:30 11/03/2022 03:50:05 Wet Read Request 11/03/2022 03:59:16 Discharge Complete 11/03/2022 04:08:52 11/03/2022 04:14:33 11/03/2022 04:14:33 Transfer Complete 11/03/2022 04:14:33 11/03/2022 04:14:33 11/03/2022 04:14:33 ADDRESS: [address] [facility] [id number] [facility] DOC NOTES: MEDICAL INFORMATION: Prescriptions Given: Medications to Continue Taking That Have Changed [id number], [address] [place], [place] [id number], [phone] START: naproxen (Naprosyn 500 mg Tab) 1 Tablets By Mouth 2 times a day as needed for pain. Refills: 0. Other Medications START: naproxen (naproxen 500 mg oral enteric coated tablet) 1 Tablets By Mouth 2 times a day as needed Pain. Refills: 0. Medications to Continue with No Changes Other Medications acetaminophen-hydrocod one (Lawnside 325 mg-5 mg oral tablet) 1 Tablets By Mouth every 4 hours as needed for pain. Refills: 0. atorvastatin (atorvastatin 20 mg Tab) 1 Tablets By Mouth every day. azithromycin (Zithromax) 250 Milligram By Mouth. brompheniramine/dextro methorphan/PSE (Bromfed DM oral syrup) 5 Milliliter By Mouth 4 times a day as needed for cough and congestion. Refills: 0. cyclobenzaprine (cyclobenzaprine 10 mg Tab) 1 Tablets By Mouth 3 times a day as needed Muscle pain. Refills: 0. lisinopril 20 Milligram By Mouth every day. omeprazole (omeprazole 20 mg Cap-DR) 1 Capsules By Mouth every day. ondansetron (Zofran ODT 4 mg Tab-Dis) 1 Tablets By Mouth every 8 hours as needed Nausea/Vomiting. Refills: 0. predniSONE (predniSONE 20 mg Tab) 1 Tablets By Mouth As Directed. take two tabs daily for 5 days, then one tab daily for 5 days.. Refills: 0. PATIENT EDUCATION INFORMATION: Instructions: Knee Sprain, Adult, [id number] Follow up: With: Address: When: REBECCA NAVAS [address] [place] [address] In 3 days 11/06/2022 Comments: You can use the naproxen every 12 hours as needed for pain. Please follow-up with your primary care doctor in the next 2 to 3 days for further evaluation management. Please return to the ED for any new or worsening symptoms. DIAGNOSIS: Left knee sprain Normal [facility] ED Note-Physicianon 11-04-19 ED Note-Physician Basic Information Time Seen: Marshall Henriquez DO 11/03/2022 02:57 Chief Complaint Pt. fell while she was trying to reach something from her cabinet and then hit her left knee, now c/o of pain. Pt. denies hitting head, denies blood thinners. History of Present Illness Patient is a 47-year-old female presenting to the ED for evaluation of left knee pain. Patient states she was trying to reach for something on the cabinet was stepped on the lower cabinet and hit her left knee. Patient denies hitting her head, loss of consciousness. Is complaining of pain in her left knee. Took ibuprofen and Tylenol at home without any improvement of her symptoms. Has any other injuries. Review of Systems A 10 point review of systems is negative except as noted above. Medical and Surgical History: Reviewed and noted Social history: Lives at home Tobacco: Denies Physical Exam Vitals & Measurements T: 36.8 ?C(Oral) HR: 81(Peripheral) RR: 20 BP: 178/89 SpO2: 97% HT: 160 cm WT: 93.1 kg BMI: 36.37 General: Well developed, non toxic appearing, no acute distress HEENT: Head atraumatic, Mucosa moist, hearing grossly normal Neck: No JVD, tracheal deviation Cardiac: Regular rate, rhythm, no murmurs, or gallops, 2+ radial pulses Respiratory: Lungs clear to auscultation B/L, normal respiratory effort Abdomen: Soft non tender, no rebound or guarding, no peritoneal signs Extremities: tenderness palpation noted along the left knee, no ligamentous laxity, negative posterior anterior drawer Neurologic: Alert and oriented, speech clear Skin: No rashes or lesions Psych: Appropriate mood and behavior Medical Decision Making MEDICAL DECISION MAKING Number and Complexity of Problems Differential Diagnosis: [] [facility] Data External documents reviewed: [] My EKG interpretation: [] My CT interpretation: [] My X-ray interpretation: [] My Ultrasound interpretation: [] Decision rules/scores evaluated: [] Discussed with: [] Treatment and Disposition ED Course: Patient is a 47-year-old female presenting to the ED for evaluation of left knee pain. Patient's nontoxic and on arrival, no acute distress. X-rays of the knee is obtained which shows no acute fracture. Patient is given naproxen in the ED for pain and sleep discharged home given a prescription for naproxen. Placed in an Teofilo wrap. She follow-up with her primary care doctor in the next 2 to 3 days for further evaluation management. Shared decision making: [] Code status: [] Assessment/Plan Left knee sprain (S83.92XA: Sprain of unspecified site of left knee, initial encounter) Orders: naproxen, 500 mg = 2 tab(s), Tab, Oral, Once, Stop date 11/03/22 3:13:00 EDT, STAT, Start date 11/03/22 3:13:00 EDT, 11/03/22 3:13:00 EDT naproxen, 500 mg = 1 tab(s), Oral, BID, PRN for pain, # 20 tab(s), Refills(s) 0, Pharmacy: [id number], 160, cm, 11/03/22 2:56:00 EDT, Height/Length Dosing, 93.1, kg, 11/03/22 2:56:00 EDT, Weight Dosing XR Knee Complete 4+ Views Left Medications Administered Given naproxen 250 mg Tab, 500 mg, Oral Disposition Plan Discharge Prescription List Prescriptions Naprosyn 500 mg Tab, 500 mg= 1 tab(s), Oral, BID, PRN Follow-up With When Contact Information REBECCA NAVAS In 3 days 11/06/2022 EDT [address] [place] [address]- Additional Instructions: You can use the naproxen every 12 hours as needed for pain. Please follow-up with your primary care doctor in the next 2 to 3 days for further evaluation management. Please return to the ED for any new or worsening symptoms. Patient Education Knee Sprain, Adult, Wvuw-vg-Qlat Problem List/Past Medical History Ongoing Asymptomatic microscopic hematuria BMI 33.0-33.9,adult Cystitis Dysuria Smoker Stress incontinence Umbilical hernia Historical Hypertension Procedure/Surgical History Bilateral tubal ligation. Medications Inpatient No active inpatient medications Home atorvastatin 20 mg Tab, 20 mg= 1 tab(s), Oral, Daily Bromfed DM oral syrup, 5 mL, Oral, QID, PRN cyclobenzaprine 10 mg Tab, 10 mg= 1 tab(s), Oral, TID, PRN lisinopril, 20 mg, Oral, Daily Naprosyn 500 mg Tab, 500 mg= 1 tab(s), Oral, BID, PRN naproxen 500 mg oral enteric coated tablet, 500 mg= 1 tab(s), Oral, BID, PRN Lawnside 325 mg-5 mg oral tablet, 1 tab(s), Oral, q4hr, PRN omeprazole 20 mg Cap-DR, 20 mg= 1 cap(s), Oral, Daily predniSONE 20 mg Tab, 20 mg= 1 tab(s), Oral, As Directed Zithromax, 250 mg, Oral Zofran ODT 4 mg Tab-Dis, 4 mg= 1 tab(s), Oral, q8hr, PRN Allergies Dilaudid (Unknown) cefaclor (Unknown risk of deliberate self harm) morphine (Unknown risk of deliberate self harm) penicillins (Hives) Social History Alcohol - Denies Alcohol Use, 09/09/2022 Substance Abuse - Denies Substance Abuse, 09/09/2022 Previous treatment: None., 02/07/2018 Tobacco - High Risk, 09/09/2022 10 or more cigarettes (1/2 pack or more)/day in last 30 days Tobacco Use:., 0 (more content not included)... Normal [facility] Comment on above: Result Comment: Elec trohilaryally Signed By: Marshall Henriquez DO\.br\Date and Time Signed: 11/03/22 04:11 EDT ED Patient Education Noteon 11-03-2022 ED Patient Education Note Orthopedics Knee Sprain A knee sprain is a stretch or tear in a knee ligament. Knee ligaments are tissues that connect bones in the knee to each other. What are the causes? This condition often results from: ? A fall. ? An injury to the knee. What are the signs or symptoms? Symptoms of this condition include: ? Trouble straightening or bending the leg. ? Swelling in the knee. ? Bruising around the knee. ? Tenderness or pain in the knee. ? Sudden muscle tightening (spasms) around the knee. How is this treated? Treatment for this condition may involve: ? Keeping the knee still (immobilized) with a cast, brace, or splint. ? Putting ice on the knee. This helps with pain and swelling. ? Raising (elevating) the knee above the level of your heart when you are resting. This helps with pain and swelling. ? Taking medicine for pain. ? Doing exercises to keep your knee from being weak or stiff. ? Having surgery. This may be needed if the ligament is completely torn. Follow these instructions at home: If you have a splint or brace: ? Wear it as told by your doctor. Remove it only as told by your doctor. ? Check the skin around it every day. Tell your doctor about any concerns. ? Loosen it if your toes: ? Tingle. ? Become numb. ? Turn cold and blue. ? Keep it clean and dry. If you have a cast: ? Do not stick anything inside it to scratch your skin. ? Check the skin around it every day. Tell your doctor about any concerns. ? You may put lotion on dry skin around the edges of the cast. Do not put lotion on the skin under the cast. ? Keep it clean and dry. Bathing If you have a splint, brace, or cast that is not waterproof: ? Do not let it get wet. ? Cover it with a watertight covering when you take a bath or a shower. Managing pain, stiffness, and swelling ? If told, put ice on the injured area. To do this: ? If you have a removable splint or brace, remove it as told by your doctor. ? Put ice in a plastic bag. ? Place a towel between your skin and the bag or between your cast and the bag. ? Leave the ice on for 20 minutes, 2?3 times a day. ? Move your toes often to reduce stiffness and swelling. ? Raise the injured area above the level of your heart while you are sitting or lying down. General instructions ? Take klah-rfi-uqsiwol and prescription medicines only as told by your doctor. ? Do not use any products that contain nicotine or tobacco, such as cigarettes, e-cigarettes, and chewing tobacco. These can delay healing. If you need help quitting, ask your doctor. ? Do exercises as told by your doctor. ? Keep all follow-up visits as told by your doctor. This is important. Contact a doctor if: ? Your pain gets worse. ? The cast, brace, or splint does not fit right. ? The cast, brace, or splint gets damaged. Get help right away if: ? You cannot use your knee to support your body weight (bear weight) for standing or walking. ? You cannot move the injured area. ? Your knee mary or you have pain after you walk only a few steps. ? You have very bad pain, swelling, or numbness in your leg below the cast, brace, or splint. ? Your foot or toes are numb, cold, or blue after loosening your splint or brace. Summary ? A knee sprain is a stretch or tear in a tissue (ligament) that connects your knee bones to each other. ? You may need to wear a splint, brace, or cast to keep the knee still while it is getting better. ? Surgery may be needed if the ligament is completely torn. This information is not intended to replace advice given to you by your health care provider. Make sure you discuss any questions you have with your health care provider. Document Revised: 02/05/2020 Document Reviewed: 02/05/2020 Elsevier Patient Education ? 2022 [employer] Normal [facility] ED Patient Summaryon 023 ED Patient Summary [address] [address] Patient Discharge Instructions Person Information Name: GIOVANNA STREETER Age: 47 Years Arrival Date: 11/03/2022 02:32:14 Discharge Diagnosis: Left knee sprain Primary Care Physician: REBECCA NAVAS CNP Provider Information Primary Provider: Marshall Henriquez DO Advanced Cigarette Lighter Repairer:None The exam and treatment you received in the Emergency Department were for an urgent problem and are not intended as complete care. It is important that you follow up with a doctor, nurse practitioner, or physician?s medical assistant float for ongoing care. If your symptoms become worse or you do not improve as expected and you are unable to reach your usual health care provider, you should return to the Emergency Department. We are available 24 hours a day. GIOVANNA STREETER has been given the following list of patient education materials, prescriptions and follow-up instructions: Follow-up Instructions: With: Address: When: REBECCA NAVAS [address] [place] [address] In 3 days 11/06/2022 Comments: You can use the naproxen every 12 hours as needed for pain. Please follow-up with your primary care doctor in the next 2 to 3 days for further evaluation management. Please return to the ED for any new or worsening symptoms. In the event that this physician does not participate in your insurance network, please consult with your insurance company to find a nearby participating provider. Patient Education Materials: Knee Sprain, Adult, Eerh-xw-Bzld A MESSAGE TO ALL PATIENTS REGARDING OPIOIDS PRESCRIPTION OPIOIDS: WHAT YOU NEED TO KNOW Prescription opioids can be used to help relieve ocikhmlq-ut-knkbaf pain and are often prescribed following a surgery or injury, or for certain health conditions. These medications can be an important part of the treatment but also come with serious risks. It is important to work with your healthcare provider to make sure you are getting the safest, most effective care. WHAT ARE THE RISKS AND SIDE EFFECTS OF OPIOID USE? Prescription opioids carry serious risks of addiction and overdose, especially with prolonged use. An opioid overdose, often marked by slowed breathing, can cause sudden . The use of prescription opioids can have a number of side effects as well, even when taken as directed: ? Tolerance?meaning you might need to take more of the medication for the same pain relief ? Physical dependence?meaning you have symptoms of withdrawal when a medication is stopped ? Increased sensitivity to pain ? Constipation ? Nausea, vomiting, and dry mouth ? Sleepiness and dizziness ? Confusion ? Depression ? Low levels of testosterone that can result in lower sex drive, energy, and strength ? Itching and sweating RISKS ARE GREATER WITH: ? History of drug misuse, substance use disorder, or overdose ? Mental health conditions (such as depression or anxiety) ? Sleep apnea ? Older age (65 years and older) ? Avoid alcohol while taking prescription opioids. Also, unless specifically advised by your health care provider, medications to avoid include: ? Benzodiazepines (such as Xanax or Valium) ? Muscle relaxants (such as Soma or Flexeril) ? Hypnotics (such as Ambien or Lunesta) ? Other prescription opioids KNOW YOUR OPTIONS Talk to your health care provider about ways to manage your pain that don?t involve prescription opioids. Some of these options may actually work better and have fewer risks and side effects. Options may include: ? Pain relievers such as acetaminophen, ibuprofen, and naproxen ? Some medication that are also used for depression or seizures ? Physical therapy and exercise ? Cognitive behavioral therapy, a psychological, goal-directed approach, in which patients learn how to modify physical, behavioral, and emotional triggers of pain and stress. IF YOU ARE PRESCRIBED OPIOIDS FOR PAIN: ? Never take opioids in greater amounts or more often than prescribed. ? Follow up with your primary health care provider. o Work together to create a plan on how to manage your pain. o Talk about ways to help manage your pain that don?t involve prescription opioids. o Talk about any and all concerns and side effects. ? Help prevent misuse and abuse o Never sell or share prescription opioids. o Never use another person?s prescription opioids. ? Store prescription opioids in a secure place and out of reach of others (this may include visitors, children, friends, and family). ? Safely dispose of unused prescription opioids: Find your community drug take-back program or your pharmacy mail-back program, or flush them down the toilet, following guidance from the Food and Drug Administration (www.fda.gov/Drugs/Res ourcesForYou). ? Visit www.cdc.gov/drugoverdo se to learn about the risks of opioids abuse and (more content not included)... Normal [facility] XR Knee Complete 4+ Views Le fton 11-03-2022 XR Knee Complete 4+ Views Left Exam Date/Time: 11/03/2022 03:59 EDT Reason for Exam: Pain, Traumatic Report IMPRESSION: NEGATIVE LEFT KNEE. CLINICAL HISTORY: Pain, Traumatic COMPARISON: NONE. FINDINGS: 4 views of the left knee demonstrate no evidence of a fracture, dislocation, bone or joint abnormality. Ordering Provider: Marshall Henriquez FINAL REPORT Dictated: 11/03/2022 7:30 am Ashish Jane MD, V. Signed (Electronic Signature): 11/03/2022 7:30 am Signed by: Ashish Jane MD, V. Transcribed by: JOE Technologist: NELSON Technical Comments Radiation Dose: Ka,r in mGy = na DAP = na [facility] Consent for Treatmenton 09-30 Consent for Treatment [id number] 0CD:127 Normal [facility] Discharge Instructionson Discharge Instructions [id number] 0CD:127 [facility] ED Clinical Summaryon 2022 ED Clinical Summary [address] [address] ED Clinical Summary Person Information Name: GIOVANNA STREETER [place] Age: 47 Years : 1975 Sex: Female Language: Comoran PCP: REBECCA NAVAS CNP Marital Status: MRN: [id number] Visit Id: Visit Reason: Dental pain; FACE PAIN ON LEFT SIDE Speciality: Acuity: 4 Enc Type: Emergency Med Service: Emergency Arrival: 10/27/2022 01:49:17 Discharge: 10/27/2022 03:16:23 LOS: 000 01:27 Checkin: 10/27/2022 01:49:17 Checkout: 10/27/2022 03:16:23 Dispo Type: Home (Routine DC) EVENTS: Event Name Event Status Request Date/Time Start Date/Time Complete Date/Time Arrive Complete 10/27/2022 01:49:17 10/27/2022 01:49:17 10/27/2022 01:49:17 Document Home Meds Request 10/27/2022 01:49:17 Triage Complete 10/27/2022 01:49:17 10/27/2022 02:02:25 10/27/2022 02:02:25 Registration Complete 10/27/2022 01:53:04 10/27/2022 01:53:04 10/27/2022 01:53:04 Reg Complete Request 10/27/2022 01:53:04 Reg Bed Request Complete 10/27/2022 01:53:04 10/27/2022 01:53:04 10/27/2022 01:53:04 Bed Assign Complete 10/27/2022 02:03:19 10/27/2022 02:03:19 10/27/2022 02:03:19 Dr Exam Complete 10/27/2022 02:03:19 10/27/2022 02:13:51 10/27/2022 02:13:51 RN Exam Complete 10/27/2022 02:03:19 10/27/2022 03:15:27 10/27/2022 03:15:27 Registration Request 10/27/2022 02:13:51 Meds Admin Request 10/27/2022 02:59:00 Discharge Complete 10/27/2022 03:01:31 10/27/2022 03:16:28 10/27/2022 03:16:28 Transfer Complete 10/27/2022 03:16:28 10/27/2022 03:16:28 10/27/2022 03:16:28 ADDRESS: [place] [id number] PHYS DOC NOTES: MEDICAL INFORMATION: Prescriptions Given: New Medications [id number], [address], [place] [id number], [phone] clindamycin (clindamycin 150 mg Cap) 3 Capsules By Mouth 3 times a day for 7 Days. Refills: 0. Medications to Continue with No Changes Other Medications acetaminophen-hydrocod one (Lawnside 325 mg-5 mg oral tablet) 1 Tablets By Mouth every 4 hours as needed for pain. Refills: 0. atorvastatin (atorvastatin 20 mg Tab) 1 Tablets By Mouth every day. azithromycin (Zithromax) 250 Milligram By Mouth. brompheniramine/dextro methorphan/PSE (Bromfed DM oral syrup) 5 Milliliter By Mouth 4 times a day as needed for cough and congestion. Refills: 0. cyclobenzaprine (cyclobenzaprine 10 mg Tab) 1 Tablets By Mouth 3 times a day as needed Muscle pain. Refills: 0. lisinopril 20 Milligram By Mouth every day. naproxen (naproxen 500 mg oral enteric coated tablet) 1 Tablets By Mouth 2 times a day as needed Pain. Refills: 0. omeprazole (omeprazole 20 mg Cap-DR) 1 Capsules By Mouth every day. ondansetron (Zofran ODT 4 mg Tab-Dis) 1 Tablets By Mouth every 8 hours as needed Nausea/Vomiting. Refills: 0. predniSONE (predniSONE 20 mg Tab) 1 Tablets By Mouth As Directed. take two tabs daily for 5 days, then one tab daily for 5 days.. Refills: 0. PATIENT EDUCATION INFORMATION: Instructions: Dental Pain Follow up: With: Address: When: Dental: [facility] [phone] In 3 days 10/30/2022 With: Address: When: Dental: [facility] [phone] In 3 days 10/30/2022 With: Address: When: Dental: [facility] [phone] In 3 days 10/30/2022 With: Address: When: [address] [place] [address] Business (1) In 3 days 10/30/2022 DIAGNOSIS: Pain, dental Normal [facility] ED Note-Physicianon 10-28-19 ED Note-Physician Basic Information Time Seen: Donis Taylor DO 10/27/2022 02:13 Chief Complaint left sided dental pain for two days. denies fever or facial swelling. states has broken teeth to upper and lower jaw. History of Present Illness HPI: Patient is a 47-year-old female presents the ED for dental pain. Patient states this been going on for the past 2 days and progressively worsening. The pain is both in her left upper and lower jaw. She states she has broken teeth there and has had dental infections before for which she has required antibiotics. She states that she found some leftover clindamycin which she started taking today. She has been trying Motrin and Tylenol with minimal relief. She denies any fever or chills. She denies any difficulty swallowing. ROS: Pertinent review of systems conducted and is negative except as noted above. Physical exam: General: nontoxic appearing and in no distress HEENT: Mucous membranes moist. Poor dentition with missing upper and lower left molars. No erythema or swelling of the gums. No drainage. Posterior pharynx is patent and she is handling secretions without difficulty. Neuro: awake and alert Neck: supple, trachea midline Card: Heart regular rate and rhythm no murmur Resp: Lungs clear to auscultation no wheeze or rhonchi Physical Exam Vitals & Measurements T: 36.5 ?C(Oral) HR: 72(Peripheral) RR: 16 BP: 142/68 SpO2: 98% HT: 160 cm WT: 92.1 kg BMI: 35.98 Medical Decision Making MEDICAL DECISION MAKING Number and Complexity of Problems Differential Diagnosis: [] [facility] Data External documents reviewed: N/A My EKG interpretation: Noted in chart if applicable My CT interpretation: N/A My X-ray interpretation: Noted in chart if applicable My Ultrasound interpretation: N/A Decision rules/scores evaluated: N/A Discussed with: N/A Treatment and Disposition ED Course: Patient is nontoxic-appearing and in no distress. She is afebrile here in the ED. She is having dental pain. No drainable abscess at this time. She already took clindamycin today. We will give her a course of clindamycin as she is penicillin allergic. We will give her dental cotton balls with lidocaine and benzocaine that she can use in addition to Tylenol and Motrin. We discussed that she needs to be seen by dentistry for definitive care for this. She states that she will make an appointment as soon as possible. Shared decision making: As above Code status: N/A Assessment/Plan Pain, dental (K08.89: Other specified disorders of teeth and supporting structures) Orders: benzocaine topical, 1 iliana, Gel, Topical, QID for 30 day(s), Stop date 11/26/22 2:57:00 EDT, STAT, Start date 10/27/22 2:58:00 EDT clindamycin, 450 mg = 3 cap(s), Oral, TID, X 7 day(s), # 63 cap(s), Refills(s) 0, Pharmacy: [facility] #[id number], 160, cm, 10/27/22 2:02:00 EDT, Height/Length Dosing, 92.1, kg, 10/27/22 2:02:00 EDT, Weight Dosing Disposition Plan Discharge Prescription List Prescriptions clindamycin 150 mg Cap, 450 mg= 3 cap(s), Oral, TID Follow-up With When Contact Information Dental: [facility] [phone] In 3 days 10/30/2022 EDT Additional Instructions: Dental: [facility] [phone] In 3 days 10/30/2022 EDT Additional Instructions: Dental: [facility] [phone] In 3 days 10/30/2022 EDT Additional Instructions: [facility] In 3 days 10/30/[address] [place], [place] [id number]- [facility] (1) Additional Instructions: Patient Education Dental Pain Problem List/Past Medical History Ongoing Asymptomatic microscopic hematuria BMI 33.0-33.9,adult Cystitis Dysuria Smoker Stress incontinence Umbilical hernia Historical Hypertension Procedure/Surgical History Bilateral tubal ligation. Medications Inpatient benzocaine topical 20% gel, 1 iliana, Topical, QID Home atorvastatin 20 mg Tab, 20 mg= 1 tab(s), Oral, Daily Bromfed DM oral syrup, 5 mL, Oral, QID, PRN clindamycin 150 mg Cap, 450 mg= 3 cap(s), Oral, TID cyclobenzaprine 10 mg Tab, 10 mg= 1 tab(s), Oral, TID, PRN lisinopril, 20 mg, Oral, Daily naproxen 500 mg oral enteric coated tablet, 500 mg= 1 tab(s), Oral, BID, PRN Lawnside 325 mg-5 mg oral tablet, 1 tab(s), Oral, q4hr, PRN omeprazole 20 mg Cap-DR, 20 mg= 1 cap(s), Oral, Daily predniSONE 20 mg Tab, 20 mg= 1 tab(s), Oral, As Directed Zithromax, 250 mg, Oral Zofran ODT 4 mg Tab-Dis, 4 mg= 1 tab(s), Oral, q8hr, PRN Allergies Dilaudid (Unknown) cefaclor (Unknown risk of deliberate self harm) morphine (Unknown risk of deliberate self harm) penicillins (Hives) Social History Alcohol - Denies Alcohol Use, 09/09/2022 Substance Abuse - Denies Substance Abuse, 09/09/2022 Previous treatment: None., 02/07/2018 Tobacco - High Risk, 09/09/2022 10 or more cigarettes (1/2 pack or more)/day in last 30 days Tobacco Use:., 12/05/2021 Smoker, current status unknown Tobacco Use:. Cigarettes, Yes, 01/15/2020 Lab Results (more content not included)... Normal [facility] Comment on above: Result Comment: Elec tronically Signed By: Donis Taylor DO\.br\Date and Time Signed: 10/27/22 03:03 EDT ED Patient Education Noteon 10-27-2022 ED Patient Education Note Dentistry Dental Pain Dental pain is often a sign that something is wrong with your teeth or gums. It is also something that can occur following dental treatment. If you have dental pain, it is important to contact your dental care provider, especially if the cause of the pain has not been determined. Dental pain may be of varying intensity and can be caused by many things, including: ? Tooth decay (cavities or caries). Cavities are caused by bacteria that produce acids that irritate the nerve of your tooth, making it sensitive to air and hot or cold temperatures. This eventually causes discomfort or pain. ? Abscess or infection. Once the bacteria reach the inner part of the tooth (pulp), a bacterial infection (dental abscess) can occur. Pus typically collects at the end of the root of a tooth. ? Injury. ? A crack in the tooth. ? Gum recession exposing the root, and possibly the nerves, of a tooth. ? Gum (periodontal)disease. ? Abnormal grinding or clenching. ? Poor or improper home care. ? An unknown reason (idiopathic). Your pain may be mild or severe. It may occur when you are: ? Chewing. ? Exposed to hot or cold temperatures. ? Eating or drinking sugary foods or beverages, such as soda or candy. Your pain may be constant, or it may come and go without cause. Follow these instructions at home: The following actions may help to lessen any discomfort that you are feeling before or after getting dental care. Medicines ? Take texd-fcx-uknttvx and prescription medicines only as told by your dental care provider. ? If you were prescribed an antibiotic medicine, take it as told by your dental care provider. Do not stop taking the antibiotic even if you start to feel better. Eating and drinking Avoid foods or drinks that cause you pain, such as: ? Very hot or very cold foods or drinks. ? Sweet or sugary foods or drinks. Managing pain and swelling ? Ice can sometimes be used to reduce pain and swelling, especially if the pain is following dental treatment. ? If directed, put ice on the painful area of your face. To do this: ? Put ice in a plastic bag. ? Place a towel between your skin and the bag. ? Leave the ice on for 20 minutes, 2?3 times a day. ? Remove the ice if your skin turns bright red. This is very important. If you cannot feel pain, heat, or cold, you have a greater risk of damage to the area. Brushing your teeth ? To keep your mouth and gums healthy, brush your teeth twice a day using a fluoride toothpaste. ? Use a toothpaste made for sensitive teeth as directed by your dental care provider, especially if the root is exposed. ? Always brush your teeth with a soft-bristled toothbrush. This will help prevent irritation to your gums. General instructions ? Floss at least once a day. ? Do not apply heat to the outside of the face. ? Gargle with a mixture of salt and water 3?4 times a day or as needed. To make salt water, completely dissolve ??1 tsp (3?6 g) of salt in 1 cup (237 mL) of warm water. ? Keep all follow-up visits. This is important. Contact a dental care provider if: ? You have any unexplained dental pain. ? Your pain is not controlled with medicines. ? Your symptoms get worse. ? You have new symptoms. Get help right away if: ? You are unable to open your mouth. ? You are having trouble breathing or swallowing. ? You have a fever. ? You notice that your face, neck, or jaw is swollen. These symptoms may represent a serious problem that is an emergency. Do not wait to see if the symptoms will go away. Get medical help right away. Call your local emergency services (911 in the [place] Do not drive yourself to the hospital. Summary ? Dental pain may be caused by many things, including tooth decay and infection. ? Your pain may be mild or severe. ? Take rdld-xah-gkkniba and prescription medicines only as told by your dental care provider. ? Watch your dental pain for any changes. Let your dental care provider know if your symptoms get worse. This information is not intended to replace advice given to you by your health care provider. Make sure you discuss any questions you have with your health care provider. Document Revised: 12/21/2020 Document Reviewed: 12/21/2020 [employer] Patient Education ? 2022 [employer] Normal [facility] ED Patient Summaryon 023 ED Patient Summary [place] [id number] Patient Discharge Instructions Person Information Name: GIOVANNA STREETER Age: 47 Years Arrival Date: 10/27/2022 01:49:17 Discharge Diagnosis: Pain, dental Primary Care Physician: REBECCA NAVAS CNP Provider Information Primary Provider: Donis Taylor DO Advanced Cigarette Lighter Repairer:None The exam and treatment you received in the Emergency Department were for an urgent problem and are not intended as complete care. It is important that you follow up with a doctor, nurse practitioner, or physician?s medical assistant float for ongoing care. If your symptoms become worse or you do not improve as expected and you are unable to reach your usual health care provider, you should return to the Emergency Department. We are available 24 hours a day. GIOVANNA STREETER has been given the following list of patient education materials, prescriptions and follow-up instructions: Follow-up Instructions: With: Address: When: Dental: [facility] [phone] In 3 days 10/30/2022 With: Address: When: Dental: [facility] [phone] In 3 days 10/30/2022 With: Address: When: Dental: [facility] [phone] In 3 days 10/30/2022 With: Address: When: [address] [address] Business (5) In 3 days 10/30/2022 In the event that this physician does not participate in your insurance network, please consult with your insurance company to find a nearby participating provider. Patient Education Materials: Dental Pain A MESSAGE TO ALL PATIENTS REGARDING OPIOIDS PRESCRIPTION OPIOIDS: WHAT YOU NEED TO KNOW Prescription opioids can be used to help relieve krsewlmd-jr-yyizfj pain and are often prescribed following a surgery or injury, or for certain health conditions. These medications can be an important part of the treatment but also come with serious risks. It is important to work with your healthcare provider to make sure you are getting the safest, most effective care. WHAT ARE THE RISKS AND SIDE EFFECTS OF OPIOID USE? Prescription opioids carry serious risks of addiction and overdose, especially with prolonged use. An opioid overdose, often marked by slowed breathing, can cause sudden . The use of prescription opioids can have a number of side effects as well, even when taken as directed: ? Tolerance?meaning you might need to take more of the medication for the same pain relief ? Physical dependence?meaning you have symptoms of withdrawal when a medication is stopped ? Increased sensitivity to pain ? Constipation ? Nausea, vomiting, and dry mouth ? Sleepiness and dizziness ? Confusion ? Depression ? Low levels of testosterone that can result in lower sex drive, energy, and strength ? Itching and sweating RISKS ARE GREATER WITH: ? History of drug misuse, substance use disorder, or overdose ? Mental health conditions (such as depression or anxiety) ? Sleep apnea ? Older age (65 years and older) ? Avoid alcohol while taking prescription opioids. Also, unless specifically advised by your health care provider, medications to avoid include: ? Benzodiazepines (such as Xanax or Valium) ? Muscle relaxants (such as Soma or Flexeril) ? Hypnotics (such as Ambien or Lunesta) ? Other prescription opioids KNOW YOUR OPTIONS Talk to your health care provider about ways to manage your pain that don?t involve prescription opioids. Some of these options may actually work better and have fewer risks and side effects. Options may include: ? Pain relievers such as acetaminophen, ibuprofen, and naproxen ? Some medication that are also used for depression or seizures ? Physical therapy and exercise ? Cognitive behavioral therapy, a psychological, goal-directed approach, in which patients learn how to modify physical, behavioral, and emotional triggers of pain and stress. IF YOU ARE PRESCRIBED OPIOIDS FOR PAIN: ? Never take opioids in greater amounts or more often than prescribed. ? Follow up with your primary health care provider. o Work together to create a plan on how to manage your pain. o Talk about ways to help manage your pain that don?t involve prescription opioids. o Talk about any and all concerns and side effects. ? Help prevent misuse and abuse o Never sell or share prescription opioids. o Never use another person?s prescription opioids. ? Store prescription opioids in a secure place and out of reach of others (this may include visitors, children, friends, and family). ? Safely dispose of unused prescription opioids: Find your community drug take-back program or your pharmacy mail-back program, or flush them down the toilet, following guidance from the Food and Drug Administration (www.fda.gov/Drugs/Res ourcesForYou). ? Visit www.cdc.gov/drugoverdo se to learn ab (more content not included)... Normal [facility] Automated erythrocytes count in urine sediment (number/area)Ordered By: John Cortes on 10-24-2022 RBC Auto (Urine sed) [#/Area] 5-9 [HPF] 0-4 [facility] Automated leukocytes count i n urine sediment (number/area)Ordered By: John Cortes on 10-24-2022 WBC Auto (Urine sed) [#/Area] 0-1 [HPF] 0-4 [facility] Bilirubin Test strip Ql (U)O rdered By: John Cortes on 10-24-2022 Bilirubin Ql (U) Negative Negative [facility] Color Auto (U)Ordered By: Telly Cortes on 10-24-2022 Color (U) Yellow Yellow [facility] HCG ( test) IA.rapi d Ql (U)Ordered By: John Cortes on 10-24-2022 HCG ( test) Ql (U) Negative [facility] Ketones Auto test strip (U) [Mass/Vol]Ordered By: John Cortes on 10-24-2022 Ketones (U) [Mass/Vol] Trace Negative [facility] Nitrite Test strip Ql (U)Ord ered By: John Cortes on 10-24-2022 Nitrite Ql (U) Negative Negative [facility] No Panel InformationOrdered By: John Cortes on 10-24-2022 0-8 [LPF] 0-8 [facility] Protein Auto test strip (U) [Mass/Vol]Ordered By: John Cortes on 10-24-2022 Protein (U) [Mass/Vol] Negative Negative [facility] Specific gravity Auto test s trip (U) [Rel density]Ordered By: John Cortes on 10-24-2022 Specific gravity (U) [Rel density] 1.028 1.001-1.030 [facility] Squamous epithelial cells de tection in urine sediment by light microscopyOrdered By: John Cortes on 10-24-2022 Epithelial cells.squamous LM Ql (Urine sed) 0-1 [HPF] 0-2 [facility] Urine bacteria detection by automated methodOrdered By: John Cortes on 10-24-2022 Bacteria Auto Ql (U) None seen None Seen [facility] Urine clarity by refractomet ry automatedOrdered By: John Cortes on 10-24-2022 Clarity Refractometry automated (U) Clear Clear [facility] Urine glucose measurement by automated test strip (mass/volume)Ordered By: John Cortes on 10-24-2022 Glucose Auto test strip (U) [Mass/Vol] Normal mg/dL Normal [facility] Urine hemoglobin detection b y automated test stripOrdered By: John Cortes on 10-24-2022 Hemoglobin Auto test strip Ql (U) 1+ Negative [facility] Urine leukocyte esterase det ection by automated test stripOrdered By: John Cortes on 10-24-2022 Leukocyte esterase Auto test strip Ql (U) Negative Negative [facility] Urobilinogen Auto test strip (U) [Mass/Vol]Ordered By: John Cortes on 10-24-2022 Urobilinogen (U) [Mass/Vol] Normal mg/dL Normal [facility] pH Auto test strip (U)Ordere d By: John Cortes on 10-24-2022 pH (U) 5.5 [pH] 5.0-9.0 [facility] Activated partial thrombopla stin time (aPTT) in platelet poor plasma by coagulation aOrdered By: Denver Hess on 10-10-2022 aPTT Coag (PPP) [Time] 34.0 s 25.1-36.5 [facility] Basophils Auto (Bld) [#/Vol] Ordered By: Denver Hess on 10-10-2022 Basophils (Bld) [#/Vol] 0.1 10*3/uL 0.0-0.2 [facility] Basophils/100 WBC Auto (Bld) Ordered By: Denver Hess on 10-10-2022 Basophils/100 WBC (Bld) 0.7 % . [facility] Calcium [Mass/volume] in Ser um or PlasmaOrdered By: Denver Hess on 10-10-2022 Calcium [Mass/Vol] 9.8 mg/dL 8.6-10.3 [facility] Carbon dioxide, total [Moles /volume] in Serum or PlasmaOrdered By: Denver Hess on 10-10-2022 CO2 [Moles/Vol] 25.4 mmol/L 21.0-31.0 [facility] Chloride [Moles/volume] in S jett or PlasmaOrdered By: Denver Hess on 10-10-2022 Chloride [Moles/Vol] 103 mmol/L 98-107 [facility] Creatine kinase [Enzymatic a ctivity/volume] in Serum or PlasmaOrdered By: Denver Hess on 10-10-2022 CK [Catalytic activity/Vol] 40 U/L 30-223 [facility] Creatinine [Mass/volume] in Serum or PlasmaOrdered By: Denver Hess on 10-10-2022 Creatinine [Mass/Vol] 0.67 mg/dL 0.60-1.20 [facility] Eosinophils Auto (Bld) [#/Vo l]Ordered By: Denver Hess on 10-10-2022 Eosinophils (Bld) [#/Vol] 0.3 10*3/uL 0.0-0.45 [facility] Eosinophils/100 WBC Auto (Bl d)Ordered By: Denver Hess on 10-10-2022 Eosinophils/100 WBC (Bld) 3.4 % . [facility] Erythrocyte distribution wid th Auto (RBC) [Ratio]Ordered By: Denver Hess on 10-10-2022 Erythrocyte distribution width (RBC) [Ratio] 15.2 % 11.9-15.3 [facility] Glucose [Mass/volume] in Ser um or PlasmaOrdered By: Denver Hess on 10-10-2022 Glucose [Mass/Vol] 121 mg/dL 70-100 [facility] Hematocrit Auto (Bld) [Volum e fraction]Ordered By: Denver Hess on 10-10-2022 Hematocrit (Bld) [Volume fraction] 39.6 % 34.0-46.4 [facility] Hemoglobin [Mass/volume] in BloodOrdered By: Denver Hess on 10-10-2022 Hemoglobin (Bld) [Mass/Vol] 13.3 g/dL 11.8-15.4 [facility] Leukocytes [#/volume] correc jacki for nucleated erythrocytes in Blood by Automated counOrdered By: Denver Hess on 10-10-2022 WBC corrected for nucl RBC Auto (Bld) [#/Vol] 8.8 10*3/uL 3.8-11.6 [facility] Lymphocytes Auto (Bld) [#/Vo l]Ordered By: Denver Hess on 10-10-2022 Lymphocytes (Bld) [#/Vol] 2.4 10*3/uL 1.00-4.8 [facility] Lymphocytes/100 WBC Auto (Bl d)Ordered By: Denver Hess on 10-10-2022 Lymphocytes/100 WBC (Bld) 27.2 % . [facility] MCH Auto (RBC) [Entitic mass ]Ordered By: Denver Hess on 10-10-2022 MCH (RBC) [Entitic mass] 28.3 pg 24.7-34.3 [facility] MCHC Auto (RBC) [Mass/Vol]Or dered By: Denver Hess on 10-10-2022 MCHC (RBC) [Mass/Vol] 33.6 g/dL 32.0-35.0 [facility] MCV Auto (RBC) [Entitic vol] Ordered By: Denver Hess on 10-10-2022 MCV (RBC) [Entitic vol] 84.2 fL 80-100 [facility] Monocyte distribution width [Entitic volume] in Blood by AutomatedOrdered By: Denver Hess on 10-10-2022 Monocyte distribution width Auto (Bld) [Entitic vol] 18.40 % 0.00-20.00 [facility] Monocytes Auto (Bld) [#/Vol] Ordered By: Denver Hess on 10-10-2022 Monocytes (Bld) [#/Vol] 0.6 10*3/uL 0.0-0.8 [facility] Monocytes/100 WBC Auto (Bld) Ordered By: Denver Hess on 10-10-2022 Monocytes/100 WBC (Bld) 7.2 % . [facility] Natriuretic peptide B [Mass/ Vol]Ordered By: Denver Hess on 10-10-2022 Natriuretic peptide B (Bld) [Mass/Vol] 14.0 pg/mL 5-100 [facility] Neutrophils Auto (Bld) [#/Vo l]Ordered By: Denver Hess on 10-10-2022 Neutrophils (Bld) [#/Vol] 5.4 10*3/uL 1.8-7.7 [facility] Neutrophils/100 WBC Auto (Bl d)Ordered By: Denver Hess on 10-10-2022 Neutrophils/100 WBC (Bld) 61.5 % . [facility] No Panel InformationOrdered By: Denver Hess on 10-10-2022 11.8 s 9.0-12.9 [facility] > 60.0 mL/Min [facility] 108.07 [facility] Nucleated erythrocytes [Pres ence] in Blood by Automated countOrdered By: Denver Hess on 10-10-2022 Nucleated RBC Auto Ql (Bld) 0.0 /100{WBC} 0-0.5 [facility] Platelet mean volume Auto (B ld) [Entitic vol]Ordered By: Denver Hess on 10-10-2022 Platelet mean volume (Bld) [Entitic vol] 7.6 fL 6.3-10.7 [facility] Platelet poor plasma interna tional normalized ratio (INR) by coagulation assay (relatOrdered By: Denver Hess on 10-10-2022 INR Coag (PPP) [Relative time] 1.0 {INR} [facility] Platelets Auto (Bld) [#/Vol] Ordered By: Denver Hess on 10-10-2022 Platelets (Bld) [#/Vol] 431 10*3/uL 150-450 [facility] Potassium [Moles/volume] in Serum or PlasmaOrdered By: Denver Hess on 10-10-2022 Potassium [Moles/Vol] 3.8 mmol/L 3.5-5.1 [facility] RBC Auto (Bld) [#/Vol]Ordere d By: Denver Hess on 10-10-2022 RBC (Bld) [#/Vol] 4.70 10*6/uL 3.60-5.00 [facility] Serum or plasma anion gap de terminationOrdered By: Denver Hess on 10-10-2022 Anion gap [Moles/Vol] 13.4 mmol/L 6.0-15.0 [facility] Sodium [Moles/volume] in Ser um or PlasmaOrdered By: Denver Hess on 10-10-2022 Sodium [Moles/Vol] 138 mmol/L 136-145 [facility] Troponin I.cardiac [Mass/vol ume] in Serum or Plasma by Detection limit <= 0.01 ng/Ordered By: Denver Hess on 10-10-2022 Troponin I.cardiac DL <= 0.01 ng/mL [Mass/Vol] 6.0 pg/mL 0.0-15.0 [facility] [facility] Urea nitrogen [Mass/volume] in Serum or PlasmaOrdered By: Denver Hess on 10-10-2022 Urea nitrogen [Mass/Vol] 14 mg/dL 7-25 [facility] WBC Auto (Bld) [#/Vol]Ordere d By: Denver Hess on 10-10-2022 WBC (Bld) [#/Vol] 8.8 10*3/uL 3.8-11.6 [facility] CHEMISTRYOrdered By: SYSTEM SYSTEM on 09-18-2022 Troponin I.cardiac [Mass/Vol] 3.60 pg/mL Low 10.10 - 27.10 pg/mL [facility] URINALYSISOrdered By: Alliso n Susan on 09-18-2022 Bilirubin Ql (U) Negative (09/18/22 12:12 AM) Normal Negative [facility] UA Auto SS Clarity (U) Clear (09/18/22 12:12 AM) Normal Clear [facility] UA Auto SS Color (U) STRAW Invalid Interpretation Code [facility] UA Auto SS Epithelial cells.squamous LM.HPF (Urine sed) [#/Area] 3-4 /HPF Normal 0-2/HPF [facility] UA Aut o SS Glucose Test strip (U) [Mass/Vol] Negative (09/18/22 12:12 AM) Normal Negative [facility] UA Auto SS Hemoglobin Ql (U) 2+ *ABN* (09/18/22 12:12 AM) Invalid Interpretation Code Negative [facility] UA Auto SS Ketones (U) [Mass/Vol] Negative (09/18/22 12:12 AM) Normal Negative [facility] UA Auto SS Spiro.plasma/Spiro.R BC (Bld) [Mass ratio] 0-3 /HPF Normal 0-3/HPF [facility] UA Au to SS Mucus Ql (Urine sed) Trace (09/18/22 12:12 AM) Normal [facility] UA Auto SS Nitrite Ql (U) Negative (09/18/22 12:12 AM) Normal Negative [facility] UA Auto SS pH (U) 6.0 *NA* (09/18/22 12:12 AM) Invalid Interpretation Code 5.0 - 9.0 [facility] UA Auto SS Protein (U) [Mass/Vol] Negative (09/18/22 12:12 AM) Normal Negative [facility] Auto SS Specific gravity (U) [Rel density] 1.010 *NA* (09/18/22 12:12 AM) Invalid Interpretation Code 1.005 - 1.030 [facility] SS UA Spec Desc Clean Catch (09/18/22 12:12 AM) Normal [facility] Auto SS Urobilinogen Qn (U) [id number] {Malachi'U}/dL Normal 0.0 - 1.0 EU/dL [facility] UA Auto SS WBC Auto Ql (U) Negative (09/18/22 12:12 AM) Normal Negative [facility] UA Auto SS WBC LM.HPF (Urine sed) [#/Area] 0-5 /HPF Normal 0-5/HPF [facility] UA Auto SS CHEMISTRYOrdered By: SYSTEM SYSTEM on 09-17-2022 Albumin [Mass/Vol] 4.4 g/dL Normal 3.3 - 5.0 gm/dL [facility] Albumin/Globulin [Mass ratio] 1.2 {ratio} Normal 1.1 - 2.2 [facility] ALP [Catalytic activity/Vol] 73 [iU]/d Normal 21 - 98 Int._Unit/L [facility] ALT No additional P-5'-P [Catalytic activity/Vol] 19 [iU]/d Normal 6 - 46 Int._Unit/L [facility] Anion gap [Moles/Vol] 13 mmol/L Normal 6 - 16 mEq/L [facility] AST [Catalytic activity/Vol] 21 [iU]/d Normal 5 - 43 Int._Unit/L [facility] Bilirubin [Mass/Vol] 0.4 mg/dL Normal 0.0 - 1 .1 mg/dL [facility] Bilirubin.direct [Mass/Vol] 0.1 mg/dL Normal 0.1 - 0.4 mg/dL [facility] Bilirubin.indirect [Mass or moles/Vol] 0.3 mg/dL Normal 0.1 - 0.9 mg/dL [facility] Calcium [Mass/Vol] 9.6 mg/dL Normal 8.9 - 11. 1 mg/dL [facility] Chloride [Moles/Vol] 106 mmol/L Normal 101 - 1 11 mmol/L [facility] CO2 [Moles/Vol] 25 mmol/L Normal 21 - 31 mmol/L [facility] Creatinine [Mass/Vol] 0.8 mg/dL Normal 0.5 - 1.3 mg/dL [facility] GFR/1.73 sq M.predicted among non-blacks MDRD (S/P/Bld) [Vol rate/Area] 90 mL/min/1.73 m2 Normal >=59mL/min/ 1.73 m2 [facility] Globulin (S) [Mass/Vol] 3.6 g/dL Normal 1.4 - 4.0 gm/dL [facility] Glucose [Mass/Vol] 102 mg/dL Normal 55 - 199 mg/dL [facility] Lipase [Catalytic activity/Vol] 38 U/L Normal 13 - 58 unit/L [facility] Potassium [Moles/Vol] 3.9 mmol/L Normal 3.5 - 5.3 mmol/L [facility] Protein [Mass/Vol] 8.0 g/dL High 6.0 - 7.8 gm/dL [facility] Sodium [Moles/Vol] 140 mmol/L Normal 135 - 145 mmol/L [facility] Troponin I.cardiac [Mass/Vol] 4.00 pg/mL Low 10.10 - 27.10 pg/mL [facility] Urea nitrogen [Mass/Vol] 13 mg/dL Normal 5 - 21 mg/dL [facility] Urea nitrogen/Creatinine [Mass ratio] 16 mg/mg Normal 10 - 20 [facility] COAGULATIONOrdered By: Bia Davis on 09-17-2022 aPTT Coag (PPP) [Time] 38.3 s High 25.1 - 36.5 second(s) [facility] Auto Coag INR Coag (PPP) [Relative time] 1.0 {INR} Invalid Interpretation Code [facility] Auto Coag PT Coag (PPP) [Time] 11.3 s Normal 9.4 - 1 2.5 second(s) [facility] Auto Coag HEMATOLOGYOrdered By: SYSTEM SYSTEM on 09-17-2022 Basophils/100 WBC (Bld) 0.6 % Normal 0.0 - 2.0 % [facility] HemeAutoSS Basophils/Leukocytes Auto (Bld) [Pure # fraction] 0.0 E9/L Normal 0.0 - 0.2 E9/L [facility] HemeAutoSS Eosinophils/100 WBC (Bld) 2.5 % Normal 0.0 - 8.0 % [facility] HemeAutoSS Eosinophils/Leukocytes Auto (Bld) [Pure # fraction] 0.2 E9/L Normal 0.0 - 0.5 E9/L [facility] HemeAutoSS Lymphocytes/100 WBC (Bld) 31.7 % Normal 14.0 - 50.0 % [facility] HemeAutoSS Lymphocytes/Leukocytes Auto (Bld) [Pure # fraction] 2.4 E9/L Normal 1.0 - 4.0 E9/L [facility]eAutoSS Monocytes/100 WBC (Bld) 8.7 % Normal 4.0 - 14.0 % [facility] HemeAutoSS Monocytes/Leukocytes Auto (Bld) [Pure # fraction] 0.7 E9/L Normal 0.2 - 1.0 E9/L [facility]eAutoSS Neutrophils/100 WBC (Bld) 56.5 % Normal 36.0 - 75.0 % [facility]eAutoSS Neutrophils/Leukocytes Auto (Bld) [Pure # fraction] 4.3 E9/L Normal 2.0 - 7.5 E9/L [facility]eAutoSS HEMATOLOGYOrdered By: Katie Davis on 09-17-2022 Erythrocyte distribution width (RBC) [Ratio] 14.4 % High 10.9 - 14.2 % [facility]eAutoSS Hematocrit (Bld) [Volume fraction] 39.9 % Normal 34.0 - 46.0 % [facility]eAutoSS Hemoglobin (Bld) [Mass/Vol] 13.3 g/dL Normal 12.0 - 16.0 gm/dL [facility]eAutoSS MCH (RBC) [Entitic mass] 27.9 pg Normal 27. 0 - 34.0 pg [facility]eAutoSS MCHC (RBC) [Mass/Vol] 33.3 g/dL Normal 31.4 - 36.0 gm/dL [facility]eAutoSS MCV (RBC) [Entitic vol] 83.6 fL Normal 80.0 - 100.0 fL [facility]eAutoSS Platelet mean volume (Bld) [Entitic vol] 7.7 fL Normal 6.4 - 10.8 fL [facility] HemeAutoSS Platelets (Bld) [#/Vol] 369.0 E9/L Normal 150. 0 - 500.0 E9/L [facility]eAutoSS RBC (Bld) [#/Vol] 4.8 E12/L Normal 4.3 - 5.9 E12/L [facility]eAuto[facility] WBC corrected for nucl RBC Auto (Bld) [#/Vol] 7.6 E9/L Normal 4.0 - 11.0 E9/L [facility]eAutoSS SEROLOGYOrdered By: Adelita Davis on 09-17-2022 Beta hCG Ql Negative (09/17/22 11:52 PM) Normal [facility] Automated erythrocytes count in urine sediment (number/area)Ordered By: PROVIDER TEMP on 09-07-2022 RBC Auto (Urine sed) [#/Area] 5-9 [HPF] 0-4 [facility] Automated leukocytes count i n urine sediment (number/area)Ordered By: PROVIDER TEMP on 09-07-2022 WBC Auto (Urine sed) [#/Area] None seen [HPF] 0-4 [facility] Basophils Auto (Bld) [#/Vol] Ordered By: Dustin Dorsey on 09-07-2022 Basophils (Bld) [#/Vol] 0.1 10*3/uL 0.0-0.2 [facility] Basophils/100 WBC Auto (Bld) Ordered By: Dustin Dorsey on 09-07-2022 Basophils/100 WBC (Bld) 0.9 % . [facility] Bilirubin Test strip Ql (U)O rdered By: PROVIDER TEMP on 09-07-2022 Bilirubin Ql (U) Negative Negative [facility] Calcium [Mass/volume] in Ser um or PlasmaOrdered By: Dustin Dorsey on 09-07-2022 Calcium [Mass/Vol] 9.3 mg/dL 8.6-10.3 [facility] Carbon dioxide, total [Moles /volume] in Serum or PlasmaOrdered By: Dustin Dorsey on 09-07-2022 CO2 [Moles/Vol] 24.8 mmol/L 21.0-31.0 [facility] Chloride [Moles/volume] in S jett or PlasmaOrdered By: Dustin Dorsey on 09-07-2022 Chloride [Moles/Vol] 105 mmol/L 98-107 [facility] Color Auto (U)Ordered By: BRYAN COPPOLA on 09-07-2022 Color (U) Yellow Yellow [facility] Creatinine [Mass/volume] in Serum or PlasmaOrdered By: Dustin Dorsey on 09-07-2022 Creatinine [Mass/Vol] 0.71 mg/dL 0.60-1.20 [facility] Eosinophils Auto (Bld) [#/Vo l]Ordered By: Dustin Dorsey on 09-07-2022 Eosinophils (Bld) [#/Vol] 0.3 10*3/uL 0.0-0.45 [facility] Eosinophils/100 WBC Auto (Bl d)Ordered By: Dustin Dorsye on 09-07-2022 Eosinophils/100 WBC (Bld) 3.5 % . [facility] Erythrocyte distribution wid th Auto (RBC) [Ratio]Ordered By: Dustin Dorsey on 09-07-2022 Erythrocyte distribution width (RBC) [Ratio] 14.9 % 11.9-15.3 [facility] Glucose [Mass/volume] in Ser um or PlasmaOrdered By: Dustin Dorsey on 09-07-2022 Glucose [Mass/Vol] 131 mg/dL 70-100 [facility] HCG ( test) IA.rapi d Ql (U)Ordered By: Dustin Dorsey on 09-07-2022 HCG ( test) Ql (U) Negative [facility] Hematocrit Auto (Bld) [Volum e fraction]Ordered By: Dustin Dorsey on 09-07-2022 Hematocrit (Bld) [Volume fraction] 35.9 % 34.0-46.4 [facility] Hemoglobin [Mass/volume] in BloodOrdered By: Dustin Dorsey on 09-07-2022 Hemoglobin (Bld) [Mass/Vol] 12.2 g/dL 11.8-15.4 [facility] Ketones Auto test strip (U) [Mass/Vol]Ordered By: AJAY COPPOLA on 09-07-2022 Ketones (U) [Mass/Vol] Negative [facility] Leukocytes [#/volume] correc jacki for nucleated erythrocytes in Blood by Automated counOrdered By: Dustin Dorsey on 09-07-2022 WBC corrected for nucl RBC Auto (Bld) [#/Vol] 7.2 10*3/uL 3.8-11.6 [facility] Lymphocytes Auto (Bld) [#/Vo l]Ordered By: Dustin Dorsey on 09-07-2022 Lymphocytes (Bld) [#/Vol] 2.7 10*3/uL 1.00-4.8 [facility] Lymphocytes/100 WBC Auto (Bl d)Ordered By: Dustin Dorsey on 09-07-2022 Lymphocytes/100 WBC (Bld) 37.2 % . [facility] MCH Auto (RBC) [Entitic mass ]Ordered By: Dustin Dorsey on 09-07-2022 MCH (RBC) [Entitic mass] 28.3 pg 24.7-34.3 [facility] MCHC Auto (RBC) [Mass/Vol]Or dered By: Dustin Dorsey on 09-07-2022 MCHC (RBC) [Mass/Vol] 33.9 g/dL 32.0-35.0 [facility] MCV Auto (RBC) [Entitic vol] Ordered By: Dustin Dorsey on 09-07-2022 MCV (RBC) [Entitic vol] 83.3 fL 80-100 [facility] Monocyte distribution width [Entitic volume] in Blood by AutomatedOrdered By: Dustin Dorsey on 09-07-2022 Monocyte distribution width Auto (Bld) [Entitic vol] 17.69 % 0.00-20.00 [facility] Monocytes Auto (Bld) [#/Vol] Ordered By: Dustin Dorsey on 09-07-2022 Monocytes (Bld) [#/Vol] 0.5 10*3/uL 0.0-0.8 [facility] Monocytes/100 WBC Auto (Bld) Ordered By: Dustin Dorsey on 09-07-2022 Monocytes/100 WBC (Bld) 6.5 % . [facility] Neutrophils Auto (Bld) [#/Vo l]Ordered By: Dustin Dorsey on 09-07-2022 Neutrophils (Bld) [#/Vol] 3.7 10*3/uL 1.8-7.7 [facility] Neutrophils/100 WBC Auto (Bl d)Ordered By: Dustin Dorsey on 09-07-2022 Neutrophils/100 WBC (Bld) 51.9 % . [facility] Nitrite Test strip Ql (U)Ord ered By: PROVIDER TEMP on 09-07-2022 Nitrite Ql (U) Negative Negative [facility] No Panel InformationOrdered By: Dustin Dorsey on 09-07-2022 > 60.0 mL/Min [facility] 100.83 [facility] No Panel InformationOrdered By: PROVIDER TEMP on 09-07-2022 None seen [LPF] 0-8 [facility] Nucleated erythrocytes [Pres ence] in Blood by Automated countOrdered By: Dustin Dorsey on 09-07-2022 Nucleated RBC Auto Ql (Bld) 0.1 /100{WBC} 0-0.5 [facility] Platelet mean volume Auto (B ld) [Entitic vol]Ordered By: Dustin Dorsey on 09-07-2022 Platelet mean volume (Bld) [Entitic vol] 7.8 fL 6.3-10.7 [facility] Platelets Auto (Bld) [#/Vol] Ordered By: Dustin Dorsey on 09-07-2022 Platelets (Bld) [#/Vol] 350 10*3/uL 150-450 [facility] Potassium [Moles/volume] in Serum or PlasmaOrdered By: Dustin Dorsey on 09-07-2022 Potassium [Moles/Vol] 3.6 mmol/L 3.5-5.1 [facility] Protein Auto test strip (U) [Mass/Vol]Ordered By: PROVIDER TEMP on 09-07-2022 Protein (U) [Mass/Vol] Negative Negative [facility] RBC Auto (Bld) [#/Vol]Ordere d By: Dustin Dorsey on 09-07-2022 RBC (Bld) [#/Vol] 4.31 10*6/uL 3.60-5.00 [facility] Serum or plasma anion gap de terminationOrdered By: Dustin Dorsey on 09-07-2022 Anion gap [Moles/Vol] 13.8 mmol/L 6.0-15.0 [facility] Sodium [Moles/volume] in Ser um or PlasmaOrdered By: Dustin Dorsey on 09-07-2022 Sodium [Moles/Vol] 140 mmol/L 136-145 [facility] Specific gravity Auto test s trip (U) [Rel density]Ordered By: PROVIDER TEMP on 09-07-2022 Specific gravity (U) [Rel density] 1.013 1.001-1.030 [facility] Squamous epithelial cells de tection in urine sediment by light microscopyOrdered By: PROVIDER TEMP on 09-07-2022 Epithelial cells.squamous LM Ql (Urine sed) None seen [HPF] 0-2 [facility] Urea nitrogen [Mass/volume] in Serum or PlasmaOrdered By: Dustin Dorsey on 09-07-2022 Urea nitrogen [Mass/Vol] 9 mg/dL 7-25 [facility] Urine bacteria detection by automated methodOrdered By: PROVIDER TEMP on 09-07-2022 Bacteria Auto Ql (U) None seen None Seen [facility] Urine clarity by refractomet ry automatedOrdered By: PROVIDER TEMP on 09-07-2022 Clarity Refractometry automated (U) Clear Clear [facility] Urine glucose measurement by automated test strip (mass/volume)Ordered By: PROVIDER TEMP on 09-07-2022 Glucose Auto test strip (U) [Mass/Vol] Normal mg/dL Normal [facility] Urine hemoglobin detection b y automated test stripOrdered By: PROVIDER TEMP on 09-07-2022 Hemoglobin Auto test strip Ql (U) 2+ Negative [facility] Urine leukocyte esterase det ection by automated test stripOrdered By: PROVIDER TEMP on 09-07-2022 Leukocyte esterase Auto test strip Ql (U) Negative Negative [facility] Urobilinogen Auto test strip (U) [Mass/Vol]Ordered By: PROVIDER TEMP on 09-07-2022 Urobilinogen (U) [Mass/Vol] Normal mg/dL Normal [facility] WBC Auto (Bld) [#/Vol]Ordere d By: Dustin Dorsey on 09-07-2022 WBC (Bld) [#/Vol] 7.2 10*3/uL 3.8-11.6 [facility] pH Auto test strip (U)Ordere d By: AJAY COPPOLA on 09-07-2022 pH (U) 5.5 [pH] 5.0-9.0 [facility] Alanine aminotransferase [En zymatic activity/volume] in Serum or PlasmaOrdered By: John Cortes on 08-23-2022 ALT [Catalytic activity/Vol] 16 U/L 7-52 [facility] Albumin [Mass/volume] in Ser um or Plasma by Bromocresol green (BCG) dye binding methoOrdered By: John Cortes on 08-23-2022 Albumin BCG dye [Mass/Vol] 4.2 g/dL 3.5-5.7 [facility] Alkaline phosphatase [Enzyma tic activity/volume] in Serum or PlasmaOrdered By: John Cortes on 08-23-2022 ALP [Catalytic activity/Vol] 71 U/L 34-104 [facility] Aspartate aminotransferase [ Enzymatic activity/volume] in Serum or PlasmaOrdered By: John Cortes on 08-23-2022 AST [Catalytic activity/Vol] 16 U/L 13-39 [facility] Automated erythrocytes count in urine sediment (number/area)Ordered By: John Cortes on 08-23-2022 RBC Auto (Urine sed) [#/Area] 3-4 [HPF] 0-4 [facility] Automated leukocytes count i n urine sediment (number/area)Ordered By: John Cortes on 08-23-2022 WBC Auto (Urine sed) [#/Area] None seen [HPF] 0-4 [facility] Basophils Auto (Bld) [#/Vol] Ordered By: John Cortes on 08-23-2022 Basophils (Bld) [#/Vol] 0.0 10*3/uL 0.0-0.2 [facility] Basophils/100 WBC Auto (Bld) Ordered By: John Cortes on 08-23-2022 Basophils/100 WBC (Bld) 0.4 % . [facility] Bilirubin Test strip Ql (U)O rdered By: John Cortes on 08-23-2022 Bilirubin Ql (U) Negative Negative [facility] Bilirubin.total [Mass/volume ] in Serum or PlasmaOrdered By: John Cortes on 08-23-2022 Bilirubin [Mass/Vol] 0.2 mg/dL 0.3-1.0 [facility] Calcium [Mass/volume] in Ser um or PlasmaOrdered By: John Cortes on 08-23-2022 Calcium [Mass/Vol] 8.9 mg/dL 8.6-10.3 [facility] Carbon dioxide, total [Moles /volume] in Serum or PlasmaOrdered By: John Cortes on 08-23-2022 CO2 [Moles/Vol] 22.7 mmol/L 21.0-31.0 [facility] Chloride [Moles/volume] in S jett or PlasmaOrdered By: John Cortes on 08-23-2022 Chloride [Moles/Vol] 104 mmol/L 98-107 [facility] Color Auto (U)Ordered By: Telly Cortes on 08-23-2022 Color (U) Yellow Yellow [facility] Creatinine [Mass/volume] in Serum or PlasmaOrdered By: John Cortes on 08-23-2022 Creatinine [Mass/Vol] 0.75 mg/dL 0.60-1.20 [facility] Eosinophils Auto (Bld) [#/Vo l]Ordered By: John Cortes on 08-23-2022 Eosinophils (Bld) [#/Vol] 0.3 10*3/uL 0.0-0.45 [facility] Eosinophils/100 WBC Auto (Bl d)Ordered By: John Cortes on 08-23-2022 Eosinophils/100 WBC (Bld) 4.0 % . [facility] Erythrocyte distribution wid th Auto (RBC) [Ratio]Ordered By: John Cortes on 08-23-2022 Erythrocyte distribution width (RBC) [Ratio] 15.4 % 11.9-15.3 [facility] Globulin Calc (S) [Mass/Vol] Ordered By: John oCrtes on 08-23-2022 Globulin (S) [Mass/Vol] 3.0 g/dL [facility] Glucose [Mass/volume] in Ser um or PlasmaOrdered By: John Cortes on 08-23-2022 Glucose [Mass/Vol] 98 mg/dL 70-100 [facility] Hematocrit Auto (Bld) [Volum e fraction]Ordered By: John Cortes on 08-23-2022 Hematocrit (Bld) [Volume fraction] 35.6 % 34.0-46.4 [facility] Hemoglobin [Mass/volume] in BloodOrdered By: John Cortes on 08-23-2022 Hemoglobin (Bld) [Mass/Vol] 11.9 g/dL 11.8-15.4 [facility] Ketones Auto test strip (U) [Mass/Vol]Ordered By: John Cortes on 08-23-2022 Ketones (U) [Mass/Vol] Negative Negative [facility] Leukocytes [#/volume] correc jacki for nucleated erythrocytes in Blood by Automated counOrdered By: John Cortes on 08-23-2022 WBC corrected for nucl RBC Auto (Bld) [#/Vol] 7.2 10*3/uL 3.8-11.6 [facility] Lymphocytes Auto (Bld) [#/Vo l]Ordered By: John Cortes on 08-23-2022 Lymphocytes (Bld) [#/Vol] 2.4 10*3/uL 1.00-4.8 [facility] Lymphocytes/100 WBC Auto (Bl d)Ordered By: John Cortes on 08-23-2022 Lymphocytes/100 WBC (Bld) 32.9 % . [facility] MCH Auto (RBC) [Entitic mass ]Ordered By: John Cortes on 08-23-2022 MCH (RBC) [Entitic mass] 27.9 pg 24.7-34.3 [facility] MCHC Auto (RBC) [Mass/Vol]Or dered By: John Cortes on 08-23-2022 MCHC (RBC) [Mass/Vol] 33.5 g/dL 32.0-35.0 [facility] MCV Auto (RBC) [Entitic vol] Ordered By: John Cortes on 08-23-2022 MCV (RBC) [Entitic vol] 83.2 fL 80-[address] [facility] Monocyte distribution width [Entitic volume] in Blood by AutomatedOrdered By: John Cortes on 08-23-2022 Monocyte distribution width Auto (Bld) [Entitic vol] 18.05 % 0.00-20.00 [facility] Monocytes Auto (Bld) [#/Vol] Ordered By: John Cortes on 08-23-2022 Monocytes (Bld) [#/Vol] 0.6 10*3/uL 0.0-0.8 [facility] Monocytes/100 WBC Auto (Bld) Ordered By: John Cortes on 08-23-2022 Monocytes/100 WBC (Bld) 7.9 % . [facility] Neutrophils Auto (Bld) [#/Vo l]Ordered By: John Cortes on 08-23-2022 Neutrophils (Bld) [#/Vol] 4.0 10*3/uL 1.8-7.7 [facility] Neutrophils/100 WBC Auto (Bl d)Ordered By: John Cortes on 08-23-2022 Neutrophils/100 WBC (Bld) 54.8 % . [facility] Nitrite Test strip Ql (U)Ord ered By: John Cortes on 08-23-2022 Nitrite Ql (U) Negative Negative [facility] No Panel InformationOrdered By: John Cortes on 08-23-2022 None seen [LPF] 0-8 [facility] > 60.0 mL/Min [facility] 97.75 [facility] Nucleated erythrocytes [Pres ence] in Blood by Automated countOrdered By: John Cortes on 08-23-2022 Nucleated RBC Auto Ql (Bld) 0.1 /100{WBC} 0-0.5 [facility] Platelet mean volume Auto (B ld) [Entitic vol]Ordered By: John Cortes on 08-23-2022 Platelet mean volume (Bld) [Entitic vol] 7.8 fL 6.3-10.7 [facility] Platelets Auto (Bld) [#/Vol] Ordered By: John Cortes on 08-23-2022 Platelets (Bld) [#/Vol] 382 10*3/uL 150-450 [facility] Potassium [Moles/volume] in Serum or PlasmaOrdered By: John Cortes on 08-23-2022 Potassium [Moles/Vol] 3.6 mmol/L 3.5-5.1 [facility] Protein Auto test strip (U) [Mass/Vol]Ordered By: John Cortes on 08-23-2022 Protein (U) [Mass/Vol] Negative Negative [facility] Protein [Mass/volume] in Ser um or PlasmaOrdered By: John Cortes on 08-23-2022 Protein [Mass/Vol] 7.2 g/dL 6.4-8.9 [facility] RBC Auto (Bld) [#/Vol]Ordere d By: John Cortes on 08-23-2022 RBC (Bld) [#/Vol] 4.28 10*6/uL 3.60-5.00 [facility] Serum or plasma albumin/glob ulin mass ratioOrdered By: John Cortes on 08-23-2022 Albumin/Globulin [Mass ratio] 1.4 {ratio} [facility] Serum or plasma anion gap de terminationOrdered By: John Cortes on 08-23-2022 Anion gap [Moles/Vol] 14.9 mmol/L 6.0-15.0 [facility] Sodium [Moles/volume] in Ser um or PlasmaOrdered By: John Cortes on 08-23-2022 Sodium [Moles/Vol] 138 mmol/L 136-145 [facility] Specific gravity Auto test s trip (U) [Rel density]Ordered By: John Cortes on 08-23-2022 Specific gravity (U) [Rel density] 1.007 1.001-1.030 [facility] Squamous epithelial cells de tection in urine sediment by light microscopyOrdered By: John Cortes on 08-23-2022 Epithelial cells.squamous LM Ql (Urine sed) None seen [HPF] 0-2 [facility] Troponin I.cardiac [Mass/vol ume] in Serum or Plasma by Detection limit <= 0.01 ng/Ordered By: John Cortes on 08-23-2022 Troponin I.cardiac DL <= 0.01 ng/mL [Mass/Vol] 3.4 pg/mL 0.0-15.0 [facility] Urea nitrogen [Mass/volume] in Serum or PlasmaOrdered By: John Cortes on 08-23-2022 Urea nitrogen [Mass/Vol] 12 mg/dL 10-23 [facility] Urine bacteria detection by automated methodOrdered By: John Cortes on 08-23-2022 Bacteria Auto Ql (U) None seen None Seen [facility] Urine clarity by refractomet ry automatedOrdered By: John Cortes on 08-23-2022 Clarity Refractometry automated (U) Clear Clear [facility] Urine glucose measurement by automated test strip (mass/volume)Ordered By: John Cortes on 08-23-2022 Glucose Auto test strip (U) [Mass/Vol] Normal mg/dL Normal [facility] Urine hemoglobin detection b y automated test stripOrdered By: John Cortes on 08-23-2022 Hemoglobin Auto test strip Ql (U) 1+ Negative [facility] Urine leukocyte esterase det ection by automated test stripOrdered By: John Cortes on 08-23-2022 Leukocyte esterase Auto test strip Ql (U) Negative Negative [facility] Urobilinogen Auto test strip (U) [Mass/Vol]Ordered By: John Cortes on 08-23-2022 Urobilinogen (U) [Mass/Vol] Normal mg/dL Normal [facility] WBC Auto (Bld) [#/Vol]Ordere d By: John Cortes on 08-23-2022 WBC (Bld) [#/Vol] 7.2 10*3/uL 3.8-11.6 [facility] pH Auto test strip (U)Ordere d By: John Cortes on 08-23-2022 pH (U) 6.5 [pH] 5.0-9.0 [facility] Automated erythrocytes count in urine sediment (number/area)Ordered By: Dustin Dorsey on 08-20-2022 RBC Auto (Urine sed) [#/Area] 20-49 [HPF] 0-4 [facility] Automated leukocytes count i n urine sediment (number/area)Ordered By: Dustin Dorsey on 08-20-2022 WBC Auto (Urine sed) [#/Area] 1-2 [HPF] 0-4 [facility] Bilirubin Test strip Ql (U)O rdered By: Dustin Dorsey on 08-20-2022 Bilirubin Ql (U) Negative Negative [facility] Color Auto (U)Ordered By: Charlene Dorsey on 08-20-2022 Color (U) Yellow Yellow [facility] Ketones Auto test strip (U) [Mass/Vol]Ordered By: Dustin Dorsey on 08-20-2022 Ketones (U) [Mass/Vol] Negative Negative [facility] Nitrite Test strip Ql (U)Ord ered By: Dustin Dorsey on 08-20-2022 Nitrite Ql (U) Negative Negative [facility] No Panel InformationOrdered By: Dustin Dorsey on 08-20-2022 0-8 [LPF] 0-8 [facility] Protein Auto test strip (U) [Mass/Vol]Ordered By: Dustin Dorsey on 08-20-2022 Protein (U) [Mass/Vol] Negative Negative [facility] Specific gravity Auto test s trip (U) [Rel density]Ordered By: Dustin Dorsey on 08-20-2022 Specific gravity (U) [Rel density] 1.023 1.001-1.030 [facility] Squamous epithelial cells de tection in urine sediment by light microscopyOrdered By: Dustin Dorsey on 08-20-2022 Epithelial cells.squamous LM Ql (Urine sed) 3-4 [HPF] 0-2 [facility] Urine bacteria detection by automated methodOrdered By: Dustin Dorsey on 08-20-2022 Bacteria Auto Ql (U) None seen None Seen [facility] Urine clarity by refractomet ry automatedOrdered By: Dustin Dorsey on 08-20-2022 Clarity Refractometry automated (U) Clear Clear [facility] Urine glucose measurement by automated test strip (mass/volume)Ordered By: Dustin Dorsey on 08-20-2022 Glucose Auto test strip (U) [Mass/Vol] Normal mg/dL Normal [facility] Urine hemoglobin detection b y automated test stripOrdered By: Dustin Dorsey on 08-20-2022 Hemoglobin Auto test strip Ql (U) 3+ Negative [facility] [facility] leukocyte esterase det ection by automated test stripOrdered By: Dustin Dorsey on 08-20-2022 Leukocyte esterase Auto test strip Ql (U) 1+ Negative [facility] Urobilinogen Auto test strip (U) [Mass/Vol]Ordered By: Dustin Dorsey on 08-20-2022 Urobilinogen (U) [Mass/Vol] Normal mg/dL Normal [facility] pH Auto test strip (U)Ordere d By: Dustin Dorsey on 08-20-2022 pH (U) 6.0 [pH] 5.0-9.0 [facility] CBC AUTO DIFFon 08-13-2022 BASO # 0.0 103/ul Normal 0.0-0.1 [facility] Comment on above: Performed By: #### MARISELA CLIFTON #### [facility] [address] [place] [address] Dr. Lety Nguyen Basophils/100 WBC (Bld) 0.4 % Normal 0.2-2.0 [facility] Comment on above: Performed By: #### PAWAN CLIFTONRO #### [facility] [address] [place] [address] Dr. Lety Nguyen EO # 0.3 103/ul Normal 0.0-0.7 [facility] Comment on above: Performed By: #### MARISELA CLIFTON #### [facility] [address] [place] [address] Dr. Lety Nguyen Eosinophils/100 WBC (Bld) 4.1 % Normal 0.9-7.0 [facility] Comment on above: Performed By: #### MARISELA CLIFTON #### [facility] [address] [place] [address] Dr. Lety Nguyen Erythrocyte distribution width (RBC) [Ratio] 14.9 % Normal 11.0-15.0 [facility] Comment on above: Performed By: #### MARISELA CLIFTON #### [facility] [address] [place] [address] Dr. Lety Nguyen Hematocrit (Bld) [Volume fraction] 38.2 % Normal 36.0-48.0 [facility] Comment on above: Performed By: #### PAWAN CLIFTONRO #### [facility] [address] [place] [address] Dr. Lety Nguyen Hemoglobin (Bld) [Mass/Vol] 12.2 g/dL Normal 12.0-16.0 [facility] Comment on above: Performed By: #### MARISELA CLIFTON #### [facility] [address] [place] [address] Dr. Lety Nguyen IG # 0.02 10e3/ul Normal 0.00-0.03 [facility] Comment on above: Performed By: #### Jesus MARI, UMICRO #### [facility] [address] [place] [address] Dr. Lety Nguyen IG % 0.2 % Normal 0.0-0.5 [facility] Comment on above: Performed By: #### Jesus MARI, UMICRO #### [facility] [address] [place] [address] Dr. Lety Nguyen LYMPH # 2.4 103/ul Normal 1.2-3.8 [facility] Comment on above: Performed By: #### Jesus MARI, UMICRO #### [facility] [address] [place] [address] Dr. Lety Nguyen Lymphocytes/100 WBC (Bld) 29.5 % Normal 20.5-60.0 [facility] Comment on above: Performed By: #### Jesus MARI, UMICRO #### [facility] [address] [place] [address] Dr. Lety Nguyen MANUAL DIFF REQ NO Normal [facility] Comment on above: Performed By: #### Jesus MARI, UMICRO #### [facility] [address] [place] [address] Dr. Lety Nguyen MCH (RBC) [Entitic mass] 27.5 pg Normal 26.7-34.0 [facility] Comment on above: Performed By: #### Jesus MARI, UMICRO #### [facility] [address] [place] [address] Dr. Lety Nguyen MCHC (RBC) [Mass/Vol] 31.9 g/dL Normal 29.9-35.2 [facility] Comment on above: Performed By: #### Jesus MARI, UMICRO #### [facility] [address] [place] [address] Dr. Lety Nguyen MCV (RBC) [Entitic vol] 86.2 fL Normal 81.0-99.0 [facility] Comment on above: Performed By: #### PAWAN CLIFTONRO #### [facility] [address] [place] [address] Dr. Lety Nguyen MONO # 0.6 103/ul Normal 0.3-0.8 [facility] Comment on above: Performed By: #### PAWAN CLIFTONRO #### [facility] [address] [place] [address] Dr. Lety Nguyen Monocytes/100 WBC (Bld) 7.2 % Normal 1.7-12.0 [facility] Comment on above: Performed By: #### PAWAN CLIFTONRO #### [facility] [address] [place] [address] Dr. Lety Nguyen NEUT # 4.8 103/ul Normal 1.4-6.5 [facility] Comment on above: Performed By: #### PAWAN CLIFTONRO #### [facility] [address] [place] [address] Dr. Lety Nguyen Neutrophils/100 WBC (Bld) 58.6 % Normal 43.0-75.0 [facility] Comment on above: Performed By: #### PAWAN CLIFTONRO #### [facility] [address] [place] [address] Dr. Lety Nguyen Platelet mean volume (Bld) [Entitic vol] 9.5 fL Normal 9.5-13.5 [facility] Comment on above: Performed By: #### PAWAN CLIFTONRO #### [facility] [address] [place] [address] Dr. Lety Nguyen PLT 410 103/ul Normal 150-450 [facility] Comment on above: Performed By: #### PAWAN CLIFTONRO #### [facility] [address] [place] [address] Dr. Lety Nguyen RBC 4.43 106/ul Normal 4.20-5.40 [facility] Comment on above: Performed By: #### PAWAN CLIFTONRO #### [facility] [address] [place] [address] Dr. Lety Nguyen WBC 8.1 103/ul Normal 4.0-11.0 [facility] Comment on above: Performed By: #### MARISELA CLIFTON #### [facility] [address] [place], [place] [address] ABD/PELVIS WO CONon 08-13 CT ABD/PELVIS WO CON EXAMINATION: CT ABD/PELVIS WO CON, 08/13/2022 3:04 AM EDT HISTORY: CALCULUS OF KIDNEY bilateral flank pain. COMPARISON: CT abdomen pelvis 05/25/2022 TECHNIQUE: CT scan of the abdomen and pelvis was performed without IV contrast. CT dose reduction technique was used, including Automated Exposure Control. FINDINGS: Visualized lung bases and cardiac apex are unremarkable. Small hiatal hernia. Liver, gallbladder, pancreas, spleen, adrenal glands, left kidney, appendix, uterus and other pelvic structures are unremarkable. Bilateral tubal ligation device. Multiple nonobstructing 1-2 mm right mid and inferior renal stones (3 calculi). No radiopaque ureteral stone or hydronephrosis. Urinary bladder is underdistended. Colonic diverticula without pericolonic inflammatory stranding. No evidence for small bowel obstruction, large ascites, or free air. Mild atheromatous calcified plaque scattered throughout the abdominal aorta and bilateral iliac arteries. No acute bony abnormality. Mild broad-based annular disc bulge at L4-L5 and L5-S1 with moderate bony spinal canal narrowing at L4-L5, similar to prior exam. IMPRESSION: Multiple nonobstructing 1-2 mm right mid and inferior renal stones (3 calculi). No radiopaque ureteral/urinary bladder stone, hydronephrosis, or perinephric fluid collection. Urinary bladder is underdistended. Colonic diverticula without pericolonic inflammatory stranding. Mild broad-based annular disc bulge at L4-L5 and L5-S1 with moderate bony spinal canal narrowing at L4-L5, similar to prior exam. Correlate clinically for lumbar back pain or radiculopathy. Electronically authenticated by: ESTEVAN MONROE Date: 2022-08-13 04:42 Normal [facility] ER URINE PROFILEon 3 Bilirubin Ql (U) Negative Normal NEGATIVE [facility] Comment on above: Performed By: #### MARISELA CLIFTON #### [facility] [address] [place] [address] Dr. Lety Nguyen Clarity (U) CLEAR Normal CLEAR [facility] Comment on above: Performed By: #### Jesus MARI UMICRO #### [facility] [address] [place] [address] Dr. Lety Nguyen Color (U) YELLOW Normal YELLOW [facility] Comment on above: Performed By: #### Jesus MARI UMICRO #### [facility] [address] [place] [address] Dr. Lety CABRAL A micrscopic examination will be performed if indicated. Normal [facility] Comment on above: Performed By: #### Jesus MARI UMICRO #### [facility] [address] [place] [address] Dr. Lety Nguyen Glucose Ql (U) Negative Normal NEGATIVE [facility] Comment on above: Performed By: #### Jesus MARI UMICRO #### [facility] [address] [place] [address] Dr. Lety Nguyen Hemoglobin Ql (U) MODERATE Abnormal NEGATIVE [facility] Comment on above: Performed By: #### Jesus MARI UMICRO #### [facility] [address] [place] [address] Dr. Lety Nguyen Ketones Ql (U) Negative Normal NEGATIVE [facility] Comment on above: Performed By: #### Jesus MARI UMICRO #### [facility] [address] [place] [address] Dr. Lety Nguyen LEUKOCYTES Negative Normal NEGATIVE [facility] Comment on above: Performed By: #### Jesus MARI UMICRO #### [facility] [address] [place] [address] Dr. Lety Nguyen Nitrite Ql (U) Negative Normal NEGATIVE [facility] Comment on above: Performed By: #### Jesus MARI UMICRO #### [facility] [address] [place] [address] Dr. Lety Nguyen pH (U) 5.5 [pH] Normal 5-9 [facility] Comment on above: Performed By: #### E RUR, UMICRO #### [facility] [address] [place] [address] Dr. Lety Nguyen SPEC GRAVITY >=1.030 Abnormal 1.005-<=1.0 25 [facility] Comment on above: Performed By: #### Jesus MARI UMICRO #### [facility] [address] [place] [address] Dr. Lety Nguyen UA PROTEIN Negative Normal NEGATIVE/ TRACE [facility] Comment on above: Performed By: #### E JACEY UMICRO #### [facility] [address] [place] [address] Dr. Lety Nguyen UR MICRO IND INDICATED Normal [facility] Comment on above: Performed By: #### Jesus MARI UMICRO #### [facility] [address] [place] [address] Dr. Lety Nguyen Urobilinogen Qn (U) 0.2 {Malachi'U}/dL Normal 0.2 - 1. 0 [facility] Comment on above: Performed By: #### Jesus MARI UMICRO #### [facility] [address] [place] [address] Dr. Lety Nguyen PROF CHEM 8 (BAS METB)on Anion gap [Moles/Vol] 13.7 mmol/L Normal [facility] Comment on above: Performed By: #### Jesus MARI UMICRO #### [facility] [address] [place] [address] Dr. Lety Nguyen Calcium [Mass/Vol] 9.1 mg/dL Normal 8.5-10.1 [facility] Comment on above: Performed By: #### Jesus MARI UMICRO #### [facility] [address] [place] [address] Dr. Lety Nguyen Chloride [Moles/Vol] 105 mmol/L Normal 98-107 [facility] Comment on above: Performed By: #### Jesus MARI UMICRO #### [facility] [address] [place] [address] Dr. Lety Nguyen CO2 [Moles/Vol] 26.0 mmol/L Normal 21.0-32.0 [facility] Comment on above: Performed By: #### MARISELA CLIFTON #### [facility] [address] [place] [address] Dr. Lety Nguyen Creatinine [Mass/Vol] 0.74 mg/dL Normal 0.55-1.02 [facility] Comment on above: Performed By: #### MARISELA CLIFTON #### [facility] [address] [place] [address] [address] Lety Nguyen EGFR-AF JAMAICAN >60 Normal >=60 [facility] Comment on above: Performed By: #### MARISELA CLIFTON #### [facility] [address] [place] [address] Dr. Lety Nguyen EGFR-NON AF JAMAICAN >60 Normal >=60 [facility] Comment on above: Performed By: #### MARISELA CLIFTON #### [facility] [address] [place] [address] [address] Lety Nguyen Glucose [Mass/Vol] 108 mg/dL Critically high 74-106 [facility] Comment on above: Performed By: #### MARISELA CLIFTON #### [facility] [address] [place] [address] Dr. Lety Nguyen Potassium [Moles/Vol] 3.7 mmol/L Normal 3.5-5.1 [facility] Comment on above: Performed By: #### MARISELA CLIFTON #### [facility] [address] [place] [address] [address] Lety Nguyen Sodium [Moles/Vol] 141 mmol/L Normal 136-145 [facility] Comment on above: Performed By: #### MARISELA CLIFTON #### [facility] [address] [place] [address] Dr. Lety Nguyen Urea nitrogen [Mass/Vol] 13.0 mg/dL Normal 7.0-18.0 [facility] Comment on above: Performed By: #### MARISELA CLIFTON #### [facility] [address] [place] [address] Dr. Lety Nguyen Urea nitrogen/Creatinine [Mass ratio] 17.6 mg/mg Normal [facility] Comment on above: Performed By: #### KEVYN CLIFTONICRO #### [facility] [address] [place] [address] Dr. Lety Nguyen URINE MICROSCOPIC ONLYon BACTERIA NONE SEEN Normal NONE SEEN [facility] Comment on above: Performed By: #### Jesus MARI UMICRO #### [facility] [address] [place] [address] Dr. Lety Nguyen Bacteria identified Cx Nom (U) NOT INDICATED Normal [facility] Comment on above: Performed By: #### Jesus MARI UMICRO #### [facility] [address] [place] [address] Dr. Lety Nguyen CAST NONE SEEN Normal NONE SEEN [facility] Comment on above: Performed By: #### Jesus MARI UMICRO #### [facility] [address] [place] [address] Dr. Lety Nguyen Crystals LM Nom (Urine sed) NONE SEEN Normal NONE SEEN [facility] Comment on above: Performed By: #### Jesus MARI UMICRO #### [facility] [address] [place] [address] Dr. Lety Nguyen Epithelial cells LM Ql (Urine sed) RARE Normal NONE SEEN /RARE [facility] Comment on above: Performed By: #### Jesus MARI UMICRO #### [facility] [address] [place] [address] Dr. Lety Ngyuen MUCOUS NONE SEEN Normal NONE SEEN [facility] Comment on above: Performed By: #### Jesus MARI UMICRO #### [facility] [address] [place] [address] Dr. Lety Nguyen RBC 2-5 Abnormal 0-2 [facility] Comment on above: Performed By: #### Jesus MARI UMICRO #### [facility] [address] [place] [address] Dr. Lety Nguyen WBC NONE SEEN Normal NONE SEEN [facility] Comment on above: Performed By: #### E RODYR, UMICRO #### [facility] [address] [place] [address] [address] Lety Nguyen Alanine aminotransferase [En zymatic activity/volume] in Serum or PlasmaOrdered By: Denver Hess on 08-08-2022 ALT [Catalytic activity/Vol] 13 U/L 7-52 [facility] Albumin [Mass/volume] in Ser um or Plasma by Bromocresol green (BCG) dye binding methoOrdered By: Denver Hess on 08-08-2022 Albumin BCG dye [Mass/Vol] 4.1 g/dL 3.5-5.7 [facility] Alkaline phosphatase [Enzyma tic activity/volume] in Serum or PlasmaOrdered By: Denver Hess on 08-08-2022 ALP [Catalytic activity/Vol] 74 U/L 34-104 [facility] Aspartate aminotransferase [ Enzymatic activity/volume] in Serum or PlasmaOrdered By: Denver Hess on 08-08-2022 AST [Catalytic activity/Vol] 13 U/L 13-39 [facility] Basophils Auto (Bld) [#/Vol] Ordered By: Denver Hess on 08-08-2022 Basophils (Bld) [#/Vol] 0.0 10*3/uL 0.0-0.2 [facility] Basophils/100 WBC Auto (Bld) Ordered By: Denver Hess on 08-08-2022 Basophils/100 WBC (Bld) 0.3 % . [facility] Bilirubin.total [Mass/volume ] in Serum or PlasmaOrdered By: Denver Hess on 08-08-2022 Bilirubin [Mass/Vol] 0.3 mg/dL 0.3-1.0 [facility] Calcium [Mass/volume] in Ser um or PlasmaOrdered By: Denver Hess 08-08-2022 Calcium [Mass/Vol] 8.8 mg/dL 8.6-10.3 [facility] Carbon dioxide, total [Moles /volume] in Serum or PlasmaOrdered By: Denver Hess on 08-08-2022 CO2 [Moles/Vol] 24.9 mmol/L 21.0-31.0 [facility] Chloride [Moles/volume] in S jett or PlasmaOrdered By: Denver Hess on 08-08-2022 Chloride [Moles/Vol] 104 mmol/L 98-107 [facility] Creatinine [Mass/volume] in Serum or PlasmaOrdered By: Denver Hess on 08-08-2022 Creatinine [Mass/Vol] 0.67 mg/dL 0.60-1.20 [facility] Eosinophils Auto (Bld) [#/Vo l]Ordered By: Denver Hess on 08-08-2022 Eosinophils (Bld) [#/Vol] 0.2 10*3/uL 0.0-0.45 [facility] Eosinophils/100 WBC Auto (Bl d)Ordered By: Denver Hess on 08-08-2022 Eosinophils/100 WBC (Bld) 1.9 % . [facility] Erythrocyte distribution wid th Auto (RBC) [Ratio]Ordered By: Denver Hess on 08-08-2022 Erythrocyte distribution width (RBC) [Ratio] 16.4 % 11.9-15.3 [facility] Globulin Calc (S) [Mass/Vol] Ordered By: Denver Hess on 08-08-2022 Globulin (S) [Mass/Vol] 2.9 g/dL [facility] Glucose [Mass/volume] in Ser um or PlasmaOrdered By: Denver Hess on 08-08-2022 Glucose [Mass/Vol] 113 mg/dL 70-100 [facility] Hematocrit Auto (Bld) [Volum e fraction]Ordered By: Denver Hess on 08-08-2022 Hematocrit (Bld) [Volume fraction] 35.8 % 34.0-46.4 [facility] Hemoglobin [Mass/volume] in BloodOrdered By: Denver Hess on 08-08-2022 Hemoglobin (Bld) [Mass/Vol] 11.9 g/dL 11.8-15.4 [facility] Leukocytes [#/volume] correc jacki for nucleated erythrocytes in Blood by Automated counOrdered By: Denver Hess on 08-08-2022 WBC corrected for nucl RBC Auto (Bld) [#/Vol] 8.4 10*3/uL 3.8-11.6 [facility] Lymphocytes Auto (Bld) [#/Vo l]Ordered By: Denver Hess on 08-08-2022 Lymphocytes (Bld) [#/Vol] 1.5 10*3/uL 1.00-4.8 [facility] Lymphocytes/100 WBC Auto (Bl d)Ordered By: Denver Hess on 08-08-2022 Lymphocytes/100 WBC (Bld) 17.7 % . [facility] MCH Auto (RBC) [Entitic mass ]Ordered By: Denver Hess on 08-08-2022 MCH (RBC) [Entitic mass] 27.8 pg 24.7-34.3 [facility] MCHC Auto (RBC) [Mass/Vol]Or dered By: Denver Hess on 08-08-2022 MCHC (RBC) [Mass/Vol] 33.3 g/dL 32.0-35.0 [facility] MCV Auto (RBC) [Entitic vol] Ordered By: Denver Hess on 08-08-2022 MCV (RBC) [Entitic vol] 83.7 fL 80-100 [facility] Monocyte distribution width [Entitic volume] in Blood by AutomatedOrdered By: Denver Hess on 08-08-2022 Monocyte distribution width Auto (Bld) [Entitic vol] 17.15 % 0.00-20.00 [facility] Monocytes Auto (Bld) [#/Vol] Ordered By: Denver Hess on 08-08-2022 Monocytes (Bld) [#/Vol] 0.7 10*3/uL 0.0-0.8 [facility] Monocytes/100 WBC Auto (Bld) Ordered By: Denver Hess on 08-08-2022 Monocytes/100 WBC (Bld) 8.1 % . [facility] Neutrophils Auto (Bld) [#/Vo l]Ordered By: Denver Hess on 08-08-2022 Neutrophils (Bld) [#/Vol] 6.0 10*3/uL 1.8-7.7 [facility] Neutrophils/100 WBC Auto (Bl d)Ordered By: Denver Hess on 08-08-2022 Neutrophils/100 WBC (Bld) 72.0 % . [facility] No Panel InformationOrdered By: Denver Hess on 08-08-2022 > 60.0 mL/Min [facility] 111.54 [facility] Nucleated erythrocytes [Pres ence] in Blood by Automated countOrdered By: Denver Hess on 08-08-2022 Nucleated RBC Auto Ql (Bld) 0.0 /100{WBC} 0-0.5 [facility] Platelet mean volume Auto (B ld) [Entitic vol]Ordered By: Denver Hess on 08-08-2022 Platelet mean volume (Bld) [Entitic vol] 7.6 fL 6.3-10.7 [facility] Platelets Auto (Bld) [#/Vol] Ordered By: Denver Hess on 08-08-2022 Platelets (Bld) [#/Vol] 368 10*3/uL 150-450 [facility] Potassium [Moles/volume] in Serum or PlasmaOrdered By: Denver Hess on 08-08-2022 Potassium [Moles/Vol] 3.9 mmol/L 3.5-5.1 [facility] Protein [Mass/volume] in Ser um or PlasmaOrdered By: Denver Hess on 08-08-2022 Protein [Mass/Vol] 7.0 g/dL 6.4-8.9 [facility] RBC Auto (Bld) [#/Vol]Ordere d By: Denver Hess on 08-08-2022 RBC (Bld) [#/Vol] 4.28 10*6/uL 3.60-5.00 [facility] Serum or plasma albumin/glob ulin mass ratioOrdered By: Denver Hess on 08-08-2022 Albumin/Globulin [Mass ratio] 1.4 {ratio} [facility] Serum or plasma anion gap de terminationOrdered By: Denver Hess on 08-08-2022 Anion gap [Moles/Vol] 12.0 mmol/L 6.0-15.0 [facility] Sodium [Moles/volume] in Ser um or PlasmaOrdered By: Denver Hess on 08-08-2022 Sodium [Moles/Vol] 137 mmol/L 136-145 [facility] Urea nitrogen [Mass/volume] in Serum or PlasmaOrdered By: Denver Hess on 08-08-2022 Urea nitrogen [Mass/Vol] 10 mg/dL 7-25 [facility] WBC Auto (Bld) [#/Vol]Ordere d By: Denver Hess on 08-08-2022 WBC (Bld) [#/Vol] 8.4 10*3/uL 3.8-11.6 [facility] Activated partial thrombopla stin time (aPTT) in platelet poor plasma by coagulation aOrdered By: John Cortes on 08-07-2022 aPTT Coag (PPP) [Time] 30.6 s 25.1-36.5 [facility] Alanine aminotransferase [En zymatic activity/volume] in Serum or PlasmaOrdered By: John Cortes on 08-07-2022 ALT [Catalytic activity/Vol] 12 U/L 7-52 [facility] Albumin [Mass/volume] in Ser um or Plasma by Bromocresol green (BCG) dye binding methoOrdered By: John Cortes on 08-07-2022 Albumin BCG dye [Mass/Vol] 4.0 g/dL 3.5-5.7 [facility] Alkaline phosphatase [Enzyma tic activity/volume] in Serum or PlasmaOrdered By: John Cortes on 08-07-2022 ALP [Catalytic activity/Vol] 60 U/L 34-104 [facility] Aspartate aminotransferase [ Enzymatic activity/volume] in Serum or PlasmaOrdered By: John Cortes on 08-07-2022 AST [Catalytic activity/Vol] 12 U/L 13-39 [facility] Basophils Auto (Bld) [#/Vol] Ordered By: John Cortes on 08-07-2022 Basophils (Bld) [#/Vol] 0.0 10*3/uL 0.0-0.2 [facility] Basophils/100 WBC Auto (Bld) Ordered By: John Cortes on 08-07-2022 Basophils/100 WBC (Bld) 0.4 % . [facility] Bilirubin.total [Mass/volume ] in Serum or PlasmaOrdered By: John Cortes on 08-07-2022 Bilirubin [Mass/Vol] 0.2 mg/dL 0.3-1.0 [facility] Calcium [Mass/volume] in Ser um or PlasmaOrdered By: John Cortes on 08-07-2022 Calcium [Mass/Vol] 8.6 mg/dL 8.6-10.3 [facility] Carbon dioxide, total [Moles /volume] in Serum or PlasmaOrdered By: John Cortes on 08-07-2022 CO2 [Moles/Vol] 23.7 mmol/L 21.0-31.0 [facility] Chloride [Moles/volume] in S jett or PlasmaOrdered By: John Cortes on 08-07-2022 Chloride [Moles/Vol] 105 mmol/L 98-107 [facility] Creatine kinase [Enzymatic a ctivity/volume] in Serum or PlasmaOrdered By: John Cortes on 08-07-2022 CK [Catalytic activity/Vol] 71 U/L 30-223 [facility] Creatinine [Mass/volume] in Serum or PlasmaOrdered By: John Cortes on 08-07-2022 Creatinine [Mass/Vol] 0.81 mg/dL 0.60-1.20 [facility] Eosinophils Auto (Bld) [#/Vo l]Ordered By: John Cortes on 08-07-2022 Eosinophils (Bld) [#/Vol] 0.2 10*3/uL 0.0-0.45 [facility] Eosinophils/100 WBC Auto (Bl d)Ordered By: John Cortes on 08-07-2022 Eosinophils/100 WBC (Bld) 2.9 % . [facility] Erythrocyte distribution wid th Auto (RBC) [Ratio]Ordered By: John Cortes on 08-07-2022 Erythrocyte distribution width (RBC) [Ratio] 16.5 % 11.9-15.3 [facility] Globulin Calc (S) [Mass/Vol] Ordered By: John Cortes on 08-07-2022 Globulin (S) [Mass/Vol] 2.4 g/dL [facility] Glucose [Mass/volume] in Ser um or PlasmaOrdered By: John Cortes on 08-07-2022 Glucose [Mass/Vol] 115 mg/dL 70-100 [facility] Hematocrit Auto (Bld) [Volum e fraction]Ordered By: John Cortes on 08-07-2022 Hematocrit (Bld) [Volume fraction] 31.3 % 34.0-46.4 [facility] Hemoglobin [Mass/volume] in BloodOrdered By: John Cortes on 08-07-2022 Hemoglobin (Bld) [Mass/Vol] 10.3 g/dL 11.8-15.4 [facility] Leukocytes [#/volume] correc jacki for nucleated erythrocytes in Blood by Automated counOrdered By: John Cortes on 08-07-2022 WBC corrected for nucl RBC Auto (Bld) [#/Vol] 8.1 10*3/uL 3.8-11.6 [facility] Lymphocytes Auto (Bld) [#/Vo l]Ordered By: John Cortes on 08-07-2022 Lymphocytes (Bld) [#/Vol] 2.6 10*3/uL 1.00-4.8 [facility] Lymphocytes/100 WBC Auto (Bl d)Ordered By: John Cortes on 08-07-2022 Lymphocytes/100 WBC (Bld) 32.7 % . [facility] MCH Auto (RBC) [Entitic mass ]Ordered By: John Cortes on 08-07-2022 MCH (RBC) [Entitic mass] 27.6 pg 24.7-34.3 [facility] MCHC Auto (RBC) [Mass/Vol]Or dered By: John Cortes on 08-07-2022 MCHC (RBC) [Mass/Vol] 32.9 g/dL 32.0-35.0 [facility] MCV Auto (RBC) [Entitic vol] Ordered By: John Cortes on 08-07-2022 MCV (RBC) [Entitic vol] 84.0 fL 80-100 [facility] Monocyte distribution width [Entitic volume] in Blood by AutomatedOrdered By: John Cortes on 08-07-2022 Monocyte distribution width Auto (Bld) [Entitic vol] 17.64 % 0.00-20.00 [facility] Monocytes Auto (Bld) [#/Vol] Ordered By: John Cortes on 08-07-2022 Monocytes (Bld) [#/Vol] 0.6 10*3/uL 0.0-0.8 [facility] Monocytes/100 WBC Auto (Bld) Ordered By: John Cortes on 08-07-2022 Monocytes/100 WBC (Bld) 6.8 % . [facility] Natriuretic peptide B [Mass/ Vol]Ordered By: John Cortes on 08-07-2022 Natriuretic peptide B (Bld) [Mass/Vol] 160.0 pg/mL 5-100 [facility] Neutrophils Auto (Bld) [#/Vo l]Ordered By: John Cortes on 08-07-2022 Neutrophils (Bld) [#/Vol] 4.6 10*3/uL 1.8-7.7 [facility] Neutrophils/100 WBC Auto (Bl d)Ordered By: John Cortes on 08-07-2022 Neutrophils/100 WBC (Bld) 57.2 % . [facility] No Panel InformationOrdered By: John Cortes on 08-07-2022 10.1 s 9.0-12.9 [facility] > 60.0 mL/Min [facility] 87.42 [facility] Nucleated erythrocytes [Pres ence] in Blood by Automated countOrdered By: John Cortes on 08-07-2022 Nucleated RBC Auto Ql (Bld) 0.1 /100{WBC} 0-0.5 [facility] Platelet mean volume Auto (B ld) [Entitic vol]Ordered By: John Cortes on 08-07-2022 Platelet mean volume (Bld) [Entitic vol] 7.3 fL 6.3-10.7 [facility] Platelet poor plasma interna tional normalized ratio (INR) by coagulation assay (relatOrdered By: John Cortes on 08-07-2022 INR Coag (PPP) [Relative time] 0.9 {INR} [facility] Platelets Auto (Bld) [#/Vol] Ordered By: John Cortes on 08-07-2022 Platelets (Bld) [#/Vol] 349 10*3/uL 150-450 [facility] Potassium [Moles/volume] in Serum or PlasmaOrdered By: John Cortes on 08-07-2022 Potassium [Moles/Vol] 3.7 mmol/L 3.5-5.1 [facility] Protein [Mass/volume] in Ser um or PlasmaOrdered By: John Cortes on 08-07-2022 Protein [Mass/Vol] 6.4 g/dL 6.4-8.9 [facility] RBC Auto (Bld) [#/Vol]Ordere d By: John Cortes on 08-07-2022 RBC (Bld) [#/Vol] 3.73 10*6/uL 3.60-5.00 [facility] Serum or plasma albumin/glob ulin mass ratioOrdered By: John Cortes on 08-07-2022 Albumin/Globulin [Mass ratio] 1.7 {ratio} [facility] Serum or plasma anion gap de terminationOrdered By: John Cortes on 08-07-2022 Anion gap [Moles/Vol] 14.0 mmol/L 6.0-15.0 [facility] Sodium [Moles/volume] in Ser um or PlasmaOrdered By: John Cortes on 08-07-2022 Sodium [Moles/Vol] 139 mmol/L 136-145 [facility] Troponin I.cardiac [Mass/vol ume] in Serum or Plasma by Detection limit <= 0.01 ng/Ordered By: John Cortes on 08-07-2022 Troponin I.cardiac DL <= 0.01 ng/mL [Mass/Vol] 5.8 pg/mL 0.0-15.0 [facility] Urea nitrogen [Mass/volume] in Serum or PlasmaOrdered By: John Cortes on 08-07-2022 Urea nitrogen [Mass/Vol] 13 mg/dL 7 [facility] WBC Auto (Bld) [#/Vol]Ordere d By: John Cortes on 08-07-2022 WBC (Bld) [#/Vol] 8.1 10*3/uL 3.8-11.6 [facility] Alanine aminotransferase [En zymatic activity/volume] in Serum or PlasmaOrdered By: John Cortes on 08-05-2022 ALT [Catalytic activity/Vol] 12 U/L [facility] Albumin [Mass/volume] in Ser um or Plasma by Bromocresol green (BCG) dye binding methoOrdered By: John Cortes on 08-05-2022 Albumin BCG dye [Mass/Vol] 4.0 g/dL 3.5-5.7 [facility] Alkaline phosphatase [Enzyma tic activity/volume] in Serum or PlasmaOrdered By: John Cortes on 08-05-2022 ALP [Catalytic activity/Vol] 66 U/L 34-104 [facility] Aspartate aminotransferase [ Enzymatic activity/volume] in Serum or PlasmaOrdered By: John Cortes on 08-05-2022 AST [Catalytic activity/Vol] 13 U/L 13-39 [facility] Basophils Auto (Bld) [#/Vol] Ordered By: John Cortes on 08-05-2022 Basophils (Bld) [#/Vol] 0.1 10*3/uL 0.0-0.2 [facility] Basophils/100 WBC Auto (Bld) Ordered By: John Cortes on 08-05-2022 Basophils/100 WBC (Bld) 0.9 % . [facility] Bilirubin.total [Mass/volume ] in Serum or PlasmaOrdered By: John Cortes on 08-05-2022 Bilirubin [Mass/Vol] 0.2 mg/dL 0.3-1.0 [facility] Calcium [Mass/volume] in Ser um or PlasmaOrdered By: John Cortes on 08-05-2022 Calcium [Mass/Vol] 8.5 mg/dL 8.6-10.3 [facility] Carbon dioxide, total [Moles /volume] in Serum or PlasmaOrdered By: John Cortes on 08-05-2022 CO2 [Moles/Vol] 23.3 mmol/L 21.0-31.0 [facility] Chloride [Moles/volume] in S jett or PlasmaOrdered By: John Cortes on 08-05-2022 Chloride [Moles/Vol] 107 mmol/L 98-107 [facility] Creatinine [Mass/volume] in Serum or PlasmaOrdered By: John Cortes on 08-05-2022 Creatinine [Mass/Vol] 0.72 mg/dL 0.60-1.20 [facility] Eosinophils Auto (Bld) [#/Vo l]Ordered By: John Cortes on 08-05-2022 Eosinophils (Bld) [#/Vol] 0.4 10*3/uL 0.0-0.45 [facility] Eosinophils/100 WBC Auto (Bl d)Ordered By: John Cortes on 08-05-2022 Eosinophils/100 WBC (Bld) 4.7 % . [facility] Erythrocyte distribution wid th Auto (RBC) [Ratio]Ordered By: John Cortes on 08-05-2022 Erythrocyte distribution width (RBC) [Ratio] 16.6 % 11.9-15.3 [facility] Globulin Calc (S) [Mass/Vol] Ordered By: John Cortes on 08-05-2022 Globulin (S) [Mass/Vol] 2.6 g/dL [facility] Glucose [Mass/volume] in Ser um or PlasmaOrdered By: John Cortes on 08-05-2022 Glucose [Mass/Vol] 93 mg/dL 70-[facility] Hematocrit Auto (Bld) [Volum e fraction]Ordered By: John Cortes on 08-05-2022 Hematocrit (Bld) [Volume fraction] 34.8 % 34.0-46.4 [facility] Hemoglobin [Mass/volume] in BloodOrdered By: John Cortes on 08-05-2022 Hemoglobin (Bld) [Mass/Vol] 11.4 g/dL 11.8-15.4 [facility] Leukocytes [#/volume] correc jacki for nucleated erythrocytes in Blood by Automated counOrdered By: John Cortes on 08-05-2022 WBC corrected for nucl RBC Auto (Bld) [#/Vol] 8.7 10*3/uL 3.8-11.6 [facility] Lymphocytes Auto (Bld) [#/Vo l]Ordered By: John Cortes on 08-05-2022 Lymphocytes (Bld) [#/Vol] 2.7 10*3/uL 1.00-4.8 [facility] Lymphocytes/100 WBC Auto (Bl d)Ordered By: John Cortes on 08-05-2022 Lymphocytes/100 WBC (Bld) 31.4 % . [facility] MCH Auto (RBC) [Entitic mass ]Ordered By: John Cortes on 08-05-2022 MCH (RBC) [Entitic mass] 27.5 pg 24.7-34.3 [facility] MCHC Auto (RBC) [Mass/Vol]Or dered By: John Cortes on 08-05-2022 MCHC (RBC) [Mass/Vol] 32.9 g/dL 32.0-35.0 [facility] MCV Auto (RBC) [Entitic vol] Ordered By: John Cortes on 08-05-2022 MCV (RBC) [Entitic vol] 83.5 fL 80-100 [facility] Monocyte distribution width [Entitic volume] in Blood by AutomatedOrdered By: John Cortes on 08-05-2022 Monocyte distribution width Auto (Bld) [Entitic vol] 17.65 % 0.00-20.00 [facility] Monocytes Auto (Bld) [#/Vol] Ordered By: John Cortes on 08-05-2022 Monocytes (Bld) [#/Vol] 0.7 10*3/uL 0.0-0.8 [facility] Monocytes/100 WBC Auto (Bld) Ordered By: John Cortes on 08-05-2022 Monocytes/100 WBC (Bld) 8.5 % . [facility] Neutrophils Auto (Bld) [#/Vo l]Ordered By: John Cortes on 08-05-2022 Neutrophils (Bld) [#/Vol] 4.7 10*3/uL 1.8-7.7 [facility] Neutrophils/100 WBC Auto (Bl d)Ordered By: John Cortes on 08-05-2022 Neutrophils/100 WBC (Bld) 54.5 % . [facility] No Panel InformationOrdered By: John Cortes on 08-05-2022 > 60.0 mL/Min [facility] 98.59 [facility] Nucleated erythrocytes [Pres ence] in Blood by Automated countOrdered By: John Cortes on 08-05-2022 Nucleated RBC Auto Ql (Bld) 0.1 /100{WBC} 0-0.5 [facility] Platelet mean volume Auto (B ld) [Entitic vol]Ordered By: John Cortes on 08-05-2022 Platelet mean volume (Bld) [Entitic vol] 7.7 fL 6.3-10.7 [facility] Platelets Auto (Bld) [#/Vol] Ordered By: John Cortes on 08-05-2022 Platelets (Bld) [#/Vol] 384 10*3/uL 150-450 [facility] Potassium [Moles/volume] in Serum or PlasmaOrdered By: John Cortes on 08-05-2022 Potassium [Moles/Vol] 3.8 mmol/L 3.5-5.1 [facility] Protein [Mass/volume] in Ser um or PlasmaOrdered By: John Cortes on 08-05-2022 Protein [Mass/Vol] 6.6 g/dL 6.4-8.9 [facility] RBC Auto (Bld) [#/Vol]Ordere d By: John Cortes on 08-05-2022 RBC (Bld) [#/Vol] 4.16 10*6/uL 3.60-5.00 [facility] Serum or plasma albumin/glob ulin mass ratioOrdered By: John Cortes on 08-05-2022 Albumin/Globulin [Mass ratio] 1.5 {ratio} [facility] Serum or plasma anion gap de terminationOrdered By: John Cortes on 08-05-2022 Anion gap [Moles/Vol] 13.5 mmol/L 6.0-15.0 [facility] Sodium [Moles/volume] in Ser um or PlasmaOrdered By: John Cortes on 08-05-2022 Sodium [Moles/Vol] 140 mmol/L 136-145 [facility] Urea nitrogen [Mass/volume] in Serum or PlasmaOrdered By: John Cortes on 08-05-2022 Urea nitrogen [Mass/Vol] 12 mg/dL 7-25 [facility] WBC Auto (Bld) [#/Vol]Ordere d By: John Cortes on 08-05-2022 WBC (Bld) [#/Vol] 8.7 10*3/uL 3.8-11.6 [facility] Activated partial thrombopla stin time (aPTT) in platelet poor plasma by coagulation aOrdered By: Dustin Dorsey on 07-28-2022 aPTT Coag (PPP) [Time] 35.5 s 25.1-36.5 [facility] Automated erythrocytes count in urine sediment (number/area)Ordered By: Dustin Dorsey on 07-28-2022 RBC Auto (Urine sed) [#/Area] 5-9 [HPF] 0-4 [facility] Automated leukocytes count i n urine sediment (number/area)Ordered By: Dustin Dorsey on 07-28-2022 WBC Auto (Urine sed) [#/Area] None seen [HPF] 0-4 [facility] Basophils Auto (Bld) [#/Vol] Ordered By: Dustin Dorsey on 07-28-2022 Basophils (Bld) [#/Vol] 0.0 10*3/uL 0.0-0.2 [facility] Basophils/100 WBC Auto (Bld) Ordered By: Dustin Dorsey on 07-28-2022 Basophils/100 WBC (Bld) 0.6 % . [facility] Bilirubin Auto test strip Ql (U)Ordered By: Dustin Dorsey on 07-28-2022 Bilirubin Ql (U) Negative Negative [facility] COVID-19 SOFIAOrdered By: Charlene Dorsey on 07-28-2022 SARS-CoV+SARS-CoV-2 (COVID-19) Ag IA.rapid Ql (Resp) Negative Negative [facility] Calcium [Mass/volume] in Ser um or PlasmaOrdered By: Dustin Dorsey on 07-28-2022 Calcium [Mass/Vol] 8.5 mg/dL 8.6-10.3 [facility] Carbon dioxide, total [Moles /volume] in Serum or PlasmaOrdered By: Dustin Dorsey on 07-28-2022 CO2 [Moles/Vol] 25.2 mmol/L 21.0-31.0 [facility] Chloride [Moles/volume] in S jett or PlasmaOrdered By: Dustin Dorsey on 07-28-2022 Chloride [Moles/Vol] 104 mmol/L 98-107 [facility] Creatinine [Mass/volume] in Serum or PlasmaOrdered By: Dustin Dorsye on 07-28-2022 Creatinine [Mass/Vol] 0.70 mg/dL 0.60-1.20 [facility] Eosinophils Auto (Bld) [#/Vo l]Ordered By: Dustin Dorsey on 07-28-2022 Eosinophils (Bld) [#/Vol] 0.3 10*3/uL 0.0-0.45 [facility] Eosinophils/100 WBC Auto (Bl d)Ordered By: Dustin Dorsey on 07-28-2022 Eosinophils/100 WBC (Bld) 4.1 % . [facility] Erythrocyte distribution wid th Auto (RBC) [Ratio]Ordered By: Dustin Dorsey on 07-28-2022 Erythrocyte distribution width (RBC) [Ratio] 17.0 % 11.9-15.3 [facility] Glucose [Mass/volume] in Ser um or PlasmaOrdered By: Dustin Dorsey on 07-28-2022 Glucose [Mass/Vol] 99 mg/dL 70-100 [facility] Hematocrit Auto (Bld) [Volum e fraction]Ordered By: Dustin Dorsey on 07-28-2022 Hematocrit (Bld) [Volume fraction] 36.5 % 34.0-46.4 [facility] Hemoglobin [Mass/volume] in BloodOrdered By: Dustin Dorsey on 07-28-2022 Hemoglobin (Bld) [Mass/Vol] 12.0 g/dL 11.8-15.4 [facility] Ketones Auto test strip (U) [Mass/Vol]Ordered By: Dustin Dorsey on 07-28-2022 Ketones (U) [Mass/Vol] Negative Negative [facility] Leukocytes [#/volume] correc jacki for nucleated erythrocytes in Blood by Automated counOrdered By: Dustin Dorsey on 07-28-2022 WBC corrected for nucl RBC Auto (Bld) [#/Vol] 7.2 10*3/uL 3.8-11.6 [facility] Lymphocytes Auto (Bld) [#/Vo l]Ordered By: Dustin Dorsey on 07-28-2022 Lymphocytes (Bld) [#/Vol] 2.0 10*3/uL 1.00-4.8 [facility] Lymphocytes/100 WBC Auto (Bl d)Ordered By: Dustin Dorsey on 07-28-2022 Lymphocytes/100 WBC (Bld) 26.9 % . [facility] MCH Auto (RBC) [Entitic mass ]Ordered By: Dustin Dorsey on 07-28-2022 MCH (RBC) [Entitic mass] 27.6 pg 24.7-34.3 [facility] MCHC Auto (RBC) [Mass/Vol]Or dered By: Dustin Dorsey on 07-28-2022 MCHC (RBC) [Mass/Vol] 32.9 g/dL 32.0-35.0 [facility] MCV Auto (RBC) [Entitic vol] Ordered By: Dustin Dorsey on 07-28-2022 MCV (RBC) [Entitic vol] 84.0 fL 80-100 [facility] Monocytes Auto (Bld) [#/Vol] Ordered By: Dustin Dorsey on 07-28-2022 Monocytes (Bld) [#/Vol] 0.5 10*3/uL 0.0-0.8 [facility] Monocytes/100 WBC Auto (Bld) Ordered By: Dustin Dorsey on 07-28-2022 Monocytes/100 WBC (Bld) 6.5 % . [facility] Neutrophils Auto (Bld) [#/Vo l]Ordered By: Dustin Dorsey on 07-28-2022 Neutrophils (Bld) [#/Vol] 4.5 10*3/uL 1.8-7.7 [facility] Neutrophils/100 WBC Auto (Bl d)Ordered By: Dustin Dorsey on 07-28-2022 Neutrophils/100 WBC (Bld) 61.9 % . [facility] No Panel InformationOrdered By: Dustin Dorsey on 07-28-2022 11.9 s 9.0-12.9 [facility] > 60.0 mL/Min [facility] 102.27 [facility] None seen [LPF] 0-8 [facility] Nucleated erythrocytes [Pres ence] in Blood by Automated countOrdered By: Dustin Dorsey on 07-28-2022 Nucleated RBC Auto Ql (Bld) 0.1 /100{WBC} 0-0.5 [facility] Platelet mean volume Auto (B ld) [Entitic vol]Ordered By: Dustin Dorsey on 07-28-2022 Platelet mean volume (Bld) [Entitic vol] 7.5 fL 6.3-10.7 [facility] Platelet poor plasma interna tional normalized ratio (INR) by coagulation assay (relatOrdered By: Dustin Dorsey on 07-28-2022 INR Coag (PPP) [Relative time] 1.0 {INR} [facility] Platelets Auto (Bld) [#/Vol] Ordered By: Dustin Dorsey on 07-28-2022 Platelets (Bld) [#/Vol] 345 10*3/uL 150-450 [facility] Potassium [Moles/volume] in Serum or PlasmaOrdered By: Dustin Dorsey on 07-28-2022 Potassium [Moles/Vol] 3.7 mmol/L 3.5-5.1 [facility] Protein Auto test strip (U) [Mass/Vol]Ordered By: Dustin Dorsey on 07-28-2022 Protein (U) [Mass/Vol] Negative Negative [facility] RBC Auto (Bld) [#/Vol]Ordere d By: Dustin Dorsey on 07-28-2022 RBC (Bld) [#/Vol] 4.34 10*6/uL 3.60-5.00 [facility] Serum or plasma anion gap de terminationOrdered By: Dustin Dorsey on 07-28-2022 Anion gap [Moles/Vol] 12.5 mmol/L 6.0-15.0 [facility] Sodium [Moles/volume] in Ser um or PlasmaOrdered By: Dustin Dorsey on 07-28-2022 Sodium [Moles/Vol] 138 mmol/L 136-145 [facility] Squamous epithelial cells de tection in urine sediment by light microscopyOrdered By: Dustin Dorsey on 07-28-2022 Epithelial cells.squamous LM Ql (Urine sed) 0-1 [HPF] 0-2 [facility] Troponin I.cardiac [Mass/vol ume] in Serum or Plasma by Detection limit <= 0.01 ng/Ordered By: Dustin Dorsey on 07-28-2022 Troponin I.cardiac DL <= 0.01 ng/mL [Mass/Vol] 4.6 pg/mL 0.0-15.0 [facility] Urea nitrogen [Mass/volume] in Serum or PlasmaOrdered By: Dustin Dorsey on 07-28-2022 Urea nitrogen [Mass/Vol] 12 mg/dL 7-25 [facility] Urine appearanceOrdered By: Dustin Dorsey on 07-28-2022 Appearance (U) Clear Clear [facility] Urine bacteria detection by automated methodOrdered By: Dustin Dorsey on 07-28-2022 Bacteria Auto Ql (U) None seen None Seen [facility] Urine colorOrdered By: Orville Dorsey on 07-28-2022 Color (U) Yellow Yellow [facility] Urine glucose measurement by automated test strip (mass/volume)Ordered By: Dustin Dorsey on 07-28-2022 Glucose Auto test strip (U) [Mass/Vol] Normal mg/dL Normal [facility] Urine hemoglobin detection b y automated test stripOrdered By: Dustin Dorsey on 07-28-2022 Hemoglobin Auto test strip Ql (U) 2+ Negative [facility] Urine leukocyte esterase det ection by automated test stripOrdered By: Dustin Dorsey on 07-28-2022 Leukocyte esterase Auto test strip Ql (U) Negative Negative [facility] Urine nitrite detection by a utomated test stripOrdered By: Dustin Dorsey on 07-28-2022 Nitrite Auto test strip Ql (U) Negative Negative [facility] Urobilinogen Auto test strip (U) [Mass/Vol]Ordered By: Dustin Dorsey on 07-28-2022 Urobilinogen (U) [Mass/Vol] Normal mg/dL Normal [facility] WBC Auto (Bld) [#/Vol]Ordere d By: Dustin Dorsey on 07-28-2022 WBC (Bld) [#/Vol] 7.2 10*3/uL 3.8-11.6 [facility] pH Auto test strip (U)Ordere d By: Dustin Dorsey on 07-28-2022 pH (U) 1.005 [pH] 1.001-1.030 [facility] pH (U) 6.0 [pH] 5.0-9.0 [facility] Alanine aminotransferase [En zymatic activity/volume] in Serum or PlasmaOrdered By: Drew Ba on 07-27-2022 ALT [Catalytic activity/Vol] 16 U/L [facility] Albumin [Mass/volume] in Ser um or Plasma by Bromocresol green (BCG) dye binding methoOrdered By: Drew Ba on 07-27-2022 Albumin BCG dye [Mass/Vol] 4.5 g/dL 3.5-5.7 [facility] Alkaline phosphatase [Enzyma tic activity/volume] in Serum or PlasmaOrdered By: Drew Ba on 07-27-2022 ALP [Catalytic activity/Vol] 80 U/L 34-104 [facility] Aspartate aminotransferase [ Enzymatic activity/volume] in Serum or PlasmaOrdered By: Drew Ba on 07-27-2022 AST [Catalytic activity/Vol] 16 U/L 13-39 [facility] Automated erythrocytes count in urine sediment (number/area)Ordered By: Drew Ba on 07-27-2022 RBC Auto (Urine sed) [#/Area] 5-9 [HPF] 0-4 [facility] Automated leukocytes count i n urine sediment (number/area)Ordered By: Drew Ba on 07-27-2022 WBC Auto (Urine sed) [#/Area] 0-1 [HPF] 0-4 [facility] Basophils Auto (Bld) [#/Vol] Ordered By: Drew Ba on 07-27-2022 Basophils (Bld) [#/Vol] 0.1 10*3/uL 0.0-0.2 [facility] Basophils/100 WBC Auto (Bld) Ordered By: Drew Ba on 07-27-2022 Basophils/100 WBC (Bld) 0.8 % . [facility] Bilirubin Test strip Ql (U)O rdered By: Drew Ba on 07-27-2022 Bilirubin Ql (U) Negative Negative [facility] Bilirubin.total [Mass/volume ] in Serum or PlasmaOrdered By: Drew Ba on 07-27-2022 Bilirubin [Mass/Vol] 0.3 mg/dL 0.3-1.0 [facility] Calcium [Mass/volume] in Ser um or PlasmaOrdered By: Drew Ba on 07-27-2022 Calcium [Mass/Vol] 9.4 mg/dL 8.6-10.3 [facility] Carbon dioxide, total [Moles /volume] in Serum or PlasmaOrdered By: Drew Ba on 07-27-2022 CO2 [Moles/Vol] 27.0 mmol/L 21.0-31.0 [facility] Chloride [Moles/volume] in S jett or PlasmaOrdered By: Drew Ba on 07-27-2022 Chloride [Moles/Vol] 103 mmol/L 98-107 [facility] Color Auto (U)Ordered By: Miguel Angel Ba on 07-27-2022 Color (U) Yellow Yellow [facility] Creatinine [Mass/volume] in Serum or PlasmaOrdered By: Drew Ba on 07-27-2022 Creatinine [Mass/Vol] 0.84 mg/dL 0.60-1.20 [facility] Eosinophils Auto (Bld) [#/Vo l]Ordered By: Drew Ba on 07-27-2022 Eosinophils (Bld) [#/Vol] 0.3 10*3/uL 0.0-0.45 [facility] Eosinophils/100 WBC Auto (Bl d)Ordered By: Drew Ba on 07-27-2022 Eosinophils/100 WBC (Bld) 4.1 % . [facility] Erythrocyte distribution wid th Auto (RBC) [Ratio]Ordered By: Drew Ba 07-27-2022 Erythrocyte distribution width (RBC) [Ratio] 17.1 % 11.9-15.3 [facility] Globulin Calc (S) [Mass/Vol] Ordered By: Drew Ba 07-27-2022 Globulin (S) [Mass/Vol] 3.3 g/dL [facility] Glucose [Mass/volume] in Ser um or PlasmaOrdered By: Drew Ba 07-27-2022 Glucose [Mass/Vol] 137 mg/dL 70-100 [facility] Hematocrit Auto (Bld) [Volum e fraction]Ordered By: Drew Ba 07-27-2022 Hematocrit (Bld) [Volume fraction] 39.2 % 34.0-46.4 [facility] Hemoglobin [Mass/volume] in BloodOrdered By: Drew Ba 07-27-2022 Hemoglobin (Bld) [Mass/Vol] 12.9 g/dL 11.8-15.4 [facility] Ketones Auto test strip (U) [Mass/Vol]Ordered By: Drew Ba on 07-27-2022 Ketones (U) [Mass/Vol] Negative Negative [facility] Leukocytes [#/volume] correc jacki for nucleated erythrocytes in Blood by Automated counOrdered By: Drew Ba on 07-27-2022 WBC corrected for nucl RBC Auto (Bld) [#/Vol] 7.9 10*3/uL 3.8-11.6 [facility] Lipase [Enzymatic activity/v olume] in Serum or PlasmaOrdered By: Drew Ba on 07-27-2022 Lipase [Catalytic activity/Vol] 35.0 U/L 11.0-82.0 [facility] Lymphocytes Auto (Bld) [#/Vo l]Ordered By: Drew Ba on 07-27-2022 Lymphocytes (Bld) [#/Vol] 2.7 10*3/uL 1.00-4.8 [facility] Lymphocytes/100 WBC Auto (Bl d)Ordered By: Drew Ba on 07-27-2022 Lymphocytes/100 WBC (Bld) 33.9 % . [facility] MCH Auto (RBC) [Entitic mass ]Ordered By: Drew Ba on 07-27-2022 MCH (RBC) [Entitic mass] 27.5 pg 24.7-34.3 [facility] MCHC Auto (RBC) [Mass/Vol]Or dered By: Drew Ba on 07-27-2022 MCHC (RBC) [Mass/Vol] 32.9 g/dL 32.0-35.0 [facility] MCV Auto (RBC) [Entitic vol] Ordered By: Drew Ba on 07-27-2022 MCV (RBC) [Entitic vol] 83.7 fL 80-100 [facility] Monocyte distribution width [Entitic volume] in Blood by AutomatedOrdered By: Drew Ba on 07-27-2022 Monocyte distribution width Auto (Bld) [Entitic vol] 16.96 % 0.00-20.00 [facility] Monocytes Auto (Bld) [#/Vol] Ordered By: Drew Ba on 07-27-2022 Monocytes (Bld) [#/Vol] 0.5 10*3/uL 0.0-0.8 [facility] Monocytes/100 WBC Auto (Bld) Ordered By: Drew Ba on 07-27-2022 Monocytes/100 WBC (Bld) 6.8 % . [facility] Neutrophils Auto (Bld) [#/Vo l]Ordered By: Drew Ba on 07-27-2022 Neutrophils (Bld) [#/Vol] 4.3 10*3/uL 1.8-7.7 [facility] Neutrophils/100 WBC Auto (Bl d)Ordered By: Derw Ba on 07-27-2022 Neutrophils/100 WBC (Bld) 54.4 % . [facility] Nitrite Test strip Ql (U)Ord ered By: Drew Ba on 07-27-2022 Nitrite Ql (U) Negative Negative [facility] [facility] No Panel InformationOrdered By: Drew Ba on 07-27-2022 None seen [LPF] 0-8 [facility] > 60.0 mL/Min [facility] 86.40 [facility] Nucleated erythrocytes [Pres ence] in Blood by Automated countOrdered By: Drew Ba on 07-27-2022 Nucleated RBC Auto Ql (Bld) 0.1 /100{WBC} 0-0.5 [facility] Platelet mean volume Auto (B ld) [Entitic vol]Ordered By: Drew Ba on 07-27-2022 Platelet mean volume (Bld) [Entitic vol] 7.7 fL 6.3-10.7 [facility] Platelets Auto (Bld) [#/Vol] Ordered By: Drew Ba on 07-27-2022 Platelets (Bld) [#/Vol] 363 10*3/uL 150-450 [facility] Potassium [Moles/volume] in Serum or PlasmaOrdered By: Drew Ba on 07-27-2022 Potassium [Moles/Vol] 4.0 mmol/L 3.5-5.1 [facility] Protein Auto test strip (U) [Mass/Vol]Ordered By: Drew Ba on 07-27-2022 Protein (U) [Mass/Vol] Negative Negative [facility] Protein [Mass/volume] in Ser um or PlasmaOrdered By: Drew Ba on 07-27-2022 Protein [Mass/Vol] 7.8 g/dL 6.4-8.9 [facility] RBC Auto (Bld) [#/Vol]Ordere d By: Drew Ba on 07-27-2022 RBC (Bld) [#/Vol] 4.69 10*6/uL 3.60-5.00 [facility] Serum or plasma albumin/glob ulin mass ratioOrdered By: Drew Ba on 07-27-2022 Albumin/Globulin [Mass ratio] 1.4 {ratio} [facility] Serum or plasma anion gap de terminationOrdered By: Drew Ba on 07-27-2022 Anion gap [Moles/Vol] 13.0 mmol/L 6.0-15.0 [facility] Sodium [Moles/volume] in Ser um or PlasmaOrdered By: Drew Ba on 07-27-2022 Sodium [Moles/Vol] 139 mmol/L 136-145 [facility] Specific gravity Auto test s trip (U) [Rel density]Ordered By: Drew Ba on 07-27-2022 Specific gravity (U) [Rel density] 1.030 1.001-1.030 [facility] Squamous epithelial cells de tection in urine sediment by light microscopyOrdered By: Drew Ba on 07-27-2022 Epithelial cells.squamous LM Ql (Urine sed) 0-1 [HPF] 0-2 [facility] Urea nitrogen [Mass/volume] in Serum or PlasmaOrdered By: Drew Ba on 07-27-2022 Urea nitrogen [Mass/Vol] 15 mg/dL 7-25 [facility] Urine bacteria detection by automated methodOrdered By: Drew Ba on 07-27-2022 Bacteria Auto Ql (U) None seen None Seen [facility] Urine clarity by refractomet ry automatedOrdered By: Drew Ba on 07-27-2022 Clarity Refractometry automated (U) Clear Clear [facility] Urine glucose measurement by automated test strip (mass/volume)Ordered By: Drew Ba on 07-27-2022 Glucose Auto test strip (U) [Mass/Vol] Normal mg/dL Normal [facility] Urine hemoglobin detection b y automated test stripOrdered By: Drew Ba on 07-27-2022 Hemoglobin Auto test strip Ql (U) 2+ Negative [facility] Urine leukocyte esterase det ection by automated test stripOrdered By: Drew Ba on 07-27-2022 Leukocyte esterase Auto test strip Ql (U) Negative Negative [facility] Urobilinogen Auto test strip (U) [Mass/Vol]Ordered By: Drew Ba on 07-27-2022 Urobilinogen (U) [Mass/Vol] Normal mg/dL Normal [facility] WBC Auto (Bld) [#/Vol]Ordere d By: Drew Ba on 07-27-2022 WBC (Bld) [#/Vol] 7.9 10*3/uL 3.8-11.6 [facility] pH Auto test strip (U)Ordere d By: Drew Ba on 07-27-2022 pH (U) 5.5 [pH] 5.0-9.0 [facility] GROUP A STREP CULTUREon 06-30 S. pyogenes Ag Ql (Unsp spec) Culture Observations: NEGATIVE FOR GROUP A STREPTOCOCCUS. Normal [facility] Comment on above: Performed By: #### G RASTCX, SSCRN #### [facility] [address] [place] [address] Dr. Lety Nguyen INFLUENZA A AND B AGon 07-14 INFLUANEGH SEE BELOW Normal [facility] Comment on above: Result Comment: Nega tive for Flu A protein angiten. Infection due to Flu A cannot be ruled out. Flu A angiten in the sample may be below the detection limit of the test. Performed By: #### PAWAN CLIFTONRO #### [facility] [address] [place] [address] Dr. Lety Nguyen INFLUBNEG SEE BELOW Normal [facility] Comment on above: Result Comment: Nega tive for Flu B protein antigen. Infection due to Flu B cannot be ruled out. Flu B antigen in the sample may be below the detection limit of the test. Performed By: #### Jesus MARI UMANA MARIARO #### [facility] [address] [place] [address] Dr. Lety Nguyen INFLUENZA A AG Negative Normal NEGATIVE SEE COMMENT [facility] Comment on above: Performed By: #### E PAWAN MARIRO #### [facility] [address] [address] [address] Lety Nguyen INFLUENZA B AG Negative Normal NEGATIVE SEE COMMENT [facility] Comment on above: Performed By: #### E JACEY UMICRO #### [facility] [address] [address] [address] Lety Nguyen STREPT SCREENon 07-14-2022 STREP SCREEN A Negative Normal NEGATIVE [facility] Comment on above: Performed By: #### G RASTCX, SSCRN #### [facility] [address] [place] [address] Dr. Lety Nguyen Follitropin [Units/volume] i n Serum or PlasmaOrdered By: Rebecca Navas on 07-03-2022 Follitropin Qn 12.5 m[IU]/mL [facility] HPV 16+18+31+33+35+39+45+51+ 52+56+58+59+68 DNA cervix probe + signal amplificOrdered By: Rebecca Navas on 07-03-2022 HPV 16+18+31+33+35+39+45+51+ 52+56+58+59+68 DNA Probe+sig amp Ql (Cvx) Negative Negative [facility] No Panel InformationOrdered By: Rebecca Navas on 07-03-2022 Note . [facility] Prolactin [Mass/volume] in S jett or PlasmaOrdered By: Rebecca Navas on 07-03-2022 Prolactin [Mass/Vol] 6.30 ng/mL 3.34-26.72 [facility] Thyrotropin [Units/volume] i n Serum or PlasmaOrdered By: Rebecca Navas on 07-03-2022 TSH Qn 0.70 m[IU]/L 0.45-5.33 [facility] Alanine aminotransferase [En zymatic activity/volume] in Serum or PlasmaOrdered By: John Cortes on 06-24-2022 ALT [Catalytic activity/Vol] 14 U/L 752 [facility] Albumin [Mass/volume] in Ser um or Plasma by Bromocresol green (BCG) dye binding methoOrdered By: John Cortes on 06-24-2022 Albumin BCG dye [Mass/Vol] 4.4 g/dL 3.5-5.7 [facility] Alkaline phosphatase [Enzyma tic activity/volume] in Serum or PlasmaOrdered By: John Cortes on 06-24-2022 ALP [Catalytic activity/Vol] 76 U/L 34-104 [facility] Aspartate aminotransferase [ Enzymatic activity/volume] in Serum or PlasmaOrdered By: John Cortes on 06-24-2022 AST [Catalytic activity/Vol] 12 U/L 13-39 [facility] Automated erythrocytes count in urine sediment (number/area)Ordered By: John Cortes on 06-24-2022 RBC Auto (Urine sed) [#/Area] Innumerable [HPF] 0-4 [facility] Automated leukocytes count i n urine sediment (number/area)Ordered By: John Cortes on 06-24-2022 WBC Auto (Urine sed) [#/Area] 3-4 [HPF] 0-4 [facility] Basophils Auto (Bld) [#/Vol] Ordered By: John Cortes on 06-24-2022 Basophils (Bld) [#/Vol] 0.0 10*3/uL 0.0-0.2 [facility] Basophils/100 WBC Auto (Bld) Ordered By: John Cortes on 06-24-2022 Basophils/100 WBC (Bld) 0.5 % . [facility] Bilirubin Test strip Ql (U)O rdered By: John Cortes on 06-24-2022 Bilirubin Ql (U) See comment Negative [facility] Bilirubin.total [Mass/volume ] in Serum or PlasmaOrdered By: John Cortes on 06-24-2022 Bilirubin [Mass/Vol] 0.2 mg/dL 0.3-1.0 [facility] Calcium [Mass/volume] in Ser um or PlasmaOrdered By: John Cortes on 06-24-2022 Calcium [Mass/Vol] 9.1 mg/dL 8.6-10.3 [facility] Carbon dioxide, total [Moles /volume] in Serum or PlasmaOrdered By: oJhn Cortes on 06-24-2022 CO2 [Moles/Vol] 25.3 mmol/L 21.0-31.0 [facility] Chloride [Moles/volume] in S jett or PlasmaOrdered By: John Cortes on 06-24-2022 Chloride [Moles/Vol] 106 mmol/L 98-107 [facility] Color Auto (U)Ordered By: Telly wolfejohnna Sebastian on 06-24-2022 Color (U) Red Yellow [facility] Creatinine [Mass/volume] in Serum or PlasmaOrdered By: John Cortes on 06-24-2022 Creatinine [Mass/Vol] 0.64 mg/dL 0.60-1.20 [facility] Eosinophils Auto (Bld) [#/Vo l]Ordered By: John Cortes on 06-24-2022 Eosinophils (Bld) [#/Vol] 0.2 10*3/uL 0.0-0.45 [facility] Eosinophils/100 WBC Auto (Bl d)Ordered By: John Cortes on 06-24-2022 Eosinophils/100 WBC (Bld) 2.4 % . [facility] Erythrocyte distribution wid th Auto (RBC) [Ratio]Ordered By: John Cortes on 06-24-2022 Erythrocyte distribution width (RBC) [Ratio] 18.6 % 11.9-15.3 [facility] Globulin Calc (S) [Mass/Vol] Ordered By: John Cortes on 06-24-2022 Globulin (S) [Mass/Vol] 2.9 g/dL [facility] Glucose [Mass/volume] in Ser um or PlasmaOrdered By: John Cortes on 06-24-2022 Glucose [Mass/Vol] 102 mg/dL 74-109 [facility] HCG ( test) IA.rapi d Ql (U)Ordered By: John Cortes on 06-24-2022 HCG ( test) Ql (U) Negative [facility] Hematocrit Auto (Bld) [Volum e fraction]Ordered By: John Cortes on 06-24-2022 Hematocrit (Bld) [Volume fraction] 37.9 % 34.0-46.4 [facility] Hemoglobin [Mass/volume] in BloodOrdered By: John Cortes on 06-24-2022 Hemoglobin (Bld) [Mass/Vol] 12.6 g/dL 11.8-15.4 [facility] Ketones Auto test strip (U) [Mass/Vol]Ordered By: John Cortes on 06-24-2022 Ketones (U) [Mass/Vol] See comment Negative [facility] Leukocytes [#/volume] correc jacki for nucleated erythrocytes in Blood by Automated counOrdered By: John Cortes on 06-24-2022 WBC corrected for nucl RBC Auto (Bld) [#/Vol] 8.7 10*3/uL 3.8-11.6 [facility] Lymphocytes Auto (Bld) [#/Vo l]Ordered By: John Cortes on 06-24-2022 Lymphocytes (Bld) [#/Vol] 2.2 10*3/uL 1.00-4.8 [facility] Lymphocytes/100 WBC Auto (Bl d)Ordered By: John Cortes on 06-24-2022 Lymphocytes/100 WBC (Bld) 25.9 % . [facility] MCH Auto (RBC) [Entitic mass ]Ordered By: John Cortes on 06-24-2022 MCH (RBC) [Entitic mass] 27.4 pg 24.7-34.3 [facility] MCHC Auto (RBC) [Mass/Vol]Or dered By: Jonh Cortes on 06-24-2022 MCHC (RBC) [Mass/Vol] 33.3 g/dL 32.0-35.0 [facility] MCV Auto (RBC) [Entitic vol] Ordered By: John Cortes on 06-24-2022 MCV (RBC) [Entitic vol] 82.1 fL 80-100 [facility] Monocytes Auto (Bld) [#/Vol] Ordered By: John Cortes on 06-24-2022 Monocytes (Bld) [#/Vol] 0.7 10*3/uL 0.0-0.8 [facility] Monocytes/100 WBC Auto (Bld) Ordered By: John Cortes on 06-24-2022 Monocytes/100 WBC (Bld) 8.6 % . [facility] Neutrophils Auto (Bld) [#/Vo l]Ordered By: John Cortes on 06-24-2022 Neutrophils (Bld) [#/Vol] 5.4 10*3/uL 1.8-7.7 [facility] Neutrophils/100 WBC Auto (Bl d)Ordered By: John Cortes on 06-24-2022 Neutrophils/100 WBC (Bld) 62.6 % . [facility] Nitrite Test strip Ql (U)Ord ered By: John Cortes on 06-24-2022 Nitrite Ql (U) See comment Negative [facility] No Panel InformationOrdered By: John Cortes on 06-24-2022 > 60.0 [facility] 113.87 [facility] 0-8 [LPF] 0-8 [facility] Nucleated erythrocytes [Pres ence] in Blood by Automated countOrdered By: John Cortes on 06-24-2022 Nucleated RBC Auto Ql (Bld) 0.1 /100{WBC} 0-0.5 [facility] Platelet mean volume Auto (B ld) [Entitic vol]Ordered By: John Cortes on 06-24-2022 Platelet mean volume (Bld) [Entitic vol] 7.8 fL 6.3-10.7 [facility] Platelets Auto (Bld) [#/Vol] Ordered By: John Cortes on 06-24-2022 Platelets (Bld) [#/Vol] 367 10*3/uL 150-450 [facility] Potassium [Moles/volume] in Serum or PlasmaOrdered By: John Cortes on 06-24-2022 Potassium [Moles/Vol] 3.5 mmol/L 3.5-5.1 [facility] Protein Auto test strip (U) [Mass/Vol]Ordered By: John Cortes on 06-24-2022 Protein (U) [Mass/Vol] See comment Negative [facility] Protein [Mass/volume] in Ser um or PlasmaOrdered By: John Cortes on 06-24-2022 Protein [Mass/Vol] 7.3 g/dL 6.4-8.9 [facility] RBC Auto (Bld) [#/Vol]Ordere d By: John Cortes on 06-24-2022 RBC (Bld) [#/Vol] 4.62 10*6/uL 3.60-5.00 [facility] Serum or plasma albumin/glob ulin mass ratioOrdered By: John Cortes on 06-24-2022 Albumin/Globulin [Mass ratio] 1.5 {ratio} [facility] Serum or plasma anion gap de terminationOrdered By: John Cortes on 06-24-2022 Anion gap [Moles/Vol] 11.2 mmol/L 6.0-15.0 [facility] Sodium [Moles/volume] in Ser um or PlasmaOrdered By: John Cortes on 06-24-2022 Sodium [Moles/Vol] 139 mmol/L 136-145 [facility] Specific gravity Auto test s trip (U) [Rel density]Ordered By: John Cortes on 06-24-2022 Specific gravity (U) [Rel density] 1.008 1.001-1.030 [facility] Squamous epithelial cells de tection in urine sediment by light microscopyOrdered By: John Cortes on 06-24-2022 Epithelial cells.squamous LM Ql (Urine sed) 1-2 [HPF] 0-2 [facility] Urea nitrogen [Mass/volume] in Serum or PlasmaOrdered By: John Cortes on 06-24-2022 Urea nitrogen [Mass/Vol] 7 mg/dL 7-25 [facility] Urine bacteria detection by automated methodOrdered By: John Cortes on 06-24-2022 Bacteria Auto Ql (U) None seen None Seen [facility] Urine clarity by refractomet ry automatedOrdered By: John Cortes on 06-24-2022 Clarity Refractometry automated (U) Cloudy Clear [facility] Urine culture routineOrdered By: John Cortes on 06-24-2022 Bacteria identified Cx Nom (U) [facility] Urine glucose measurement by automated test strip (mass/volume)Ordered By: John Cortes on 06-24-2022 Glucose Auto test strip (U) [Mass/Vol] See comment Normal [facility] Urine hemoglobin detection b y automated test stripOrdered By: John Cortes on 06-24-2022 Hemoglobin Auto test strip Ql (U) See comment Negative [facility] Urine leukocyte esterase det ection by automated test stripOrdered By: John Cortes on 06-24-2022 Leukocyte esterase Auto test strip Ql (U) See comment Negative [facility] Urobilinogen Auto test strip (U) [Mass/Vol]Ordered By: John Cortes on 06-24-2022 Urobilinogen (U) [Mass/Vol] See comment Normal [facility] WBC Auto (Bld) [#/Vol]Ordere d By: John Cortes on 06-24-2022 WBC (Bld) [#/Vol] 8.7 10*3/uL 3.8-11.6 [facility] pH Auto test strip (U)Ordere d By: John Cortes on 06-24-2022 pH (U) See comment 5.0-9.0 [facility] Alanine aminotransferase [En zymatic activity/volume] in Serum or PlasmaOrdered By: John Cortes on 06-18-2022 ALT [Catalytic activity/Vol] 19 U/L 7-52 [facility] Albumin [Mass/volume] in Ser um or Plasma by Bromocresol green (BCG) dye binding methoOrdered By: John Cortes on 06-18-2022 Albumin BCG dye [Mass/Vol] 4.8 g/dL 3.5-5.7 [facility] Alkaline phosphatase [Enzyma tic activity/volume] in Serum or PlasmaOrdered By: John Cortes on 06-18-2022 ALP [Catalytic activity/Vol] 81 U/L 34-104 [facility] Aspartate aminotransferase [ Enzymatic activity/volume] in Serum or PlasmaOrdered By: John Cortes on 06-18-2022 AST [Catalytic activity/Vol] 15 U/L 13-39 [facility] Automated erythrocytes count in urine sediment (number/area)Ordered By: John Cortes on 06-18-2022 RBC Auto (Urine sed) [#/Area] 5-9 [HPF] 0-4 [facility] Automated leukocytes count i n urine sediment (number/area)Ordered By: John Cortes on 06-18-2022 WBC Auto (Urine sed) [#/Area] 1-2 [HPF] 0-4 [facility] Basophils Auto (Bld) [#/Vol] Ordered By: John Cortes on 06-18-2022 Basophils (Bld) [#/Vol] 0.1 10*3/uL 0.0-0.2 [facility] Basophils/100 WBC Auto (Bld) Ordered By: John Cortes on 06-18-2022 Basophils/100 WBC (Bld) 0.5 % . [facility] Bilirubin Test strip Ql (U)O rdered By: John Cortes on 06-18-2022 Bilirubin Ql (U) Negative Negative [facility] Bilirubin.total [Mass/volume ] in Serum or PlasmaOrdered By: John Cortes on 06-18-2022 Bilirubin [Mass/Vol] 0.2 mg/dL 0.3-1.0 [facility] Calcium [Mass/volume] in Ser um or PlasmaOrdered By: John Cortes on 06-18-2022 Calcium [Mass/Vol] 9.7 mg/dL 8.6-10.3 [facility] Carbon dioxide, total [Moles /volume] in Serum or PlasmaOrdered By: John Cortes on 06-18-2022 CO2 [Moles/Vol] 24.7 mmol/L 21.0-31.0 [facility] Chloride [Moles/volume] in S jett or PlasmaOrdered By: John Cortes on 06-18-2022 Chloride [Moles/Vol] 103 mmol/L 98-107 [facility] Color Auto (U)Ordered By: Telly Cortes on 06-18-2022 Color (U) Yellow Yellow [facility] Creatinine [Mass/volume] in Serum or PlasmaOrdered By: John Cortes on 06-18-2022 Creatinine [Mass/Vol] 0.83 mg/dL 0.60-1.20 [facility] Eosinophils Auto (Bld) [#/Vo l]Ordered By: John Cortes on 06-18-2022 Eosinophils (Bld) [#/Vol] 0.3 10*3/uL 0.0-0.45 [facility] Eosinophils/100 WBC Auto (Bl d)Ordered By: John Cortes on 06-18-2022 Eosinophils/100 WBC (Bld) 2.4 % . [facility] Erythrocyte distribution wid th Auto (RBC) [Ratio]Ordered By: John Cortes on 06-18-2022 Erythrocyte distribution width (RBC) [Ratio] 18.8 % 11.9-15.3 [facility] Globulin Calc (S) [Mass/Vol] Ordered By: John Cortes on 06-18-2022 Globulin (S) [Mass/Vol] 3.3 g/dL [facility] Glucose [Mass/volume] in Ser um or PlasmaOrdered By: John Cortes on 06-18-2022 Glucose [Mass/Vol] 106 mg/dL 74-109 [facility] HCG ( test) IA.rapi d Ql (U)Ordered By: John Cortes on 06-18-2022 HCG ( test) Ql (U) Negative [facility] Hematocrit Auto (Bld) [Volum e fraction]Ordered By: John Cortes on 06-18-2022 Hematocrit (Bld) [Volume fraction] 38.6 % 34.0-46.4 [facility] Hemoglobin [Mass/volume] in BloodOrdered By: John Cortes on 06-18-2022 Hemoglobin (Bld) [Mass/Vol] 12.9 g/dL 11.8-15.4 [facility] Ketones Auto test strip (U) [Mass/Vol]Ordered By: John Cortes on 06-18-2022 Ketones (U) [Mass/Vol] Negative Negative [facility] Leukocytes [#/volume] correc jacki for nucleated erythrocytes in Blood by Automated counOrdered By: John Cortes on 06-18-2022 WBC corrected for nucl RBC Auto (Bld) [#/Vol] 11.1 10*3/uL 3.8-11.6 [facility] Lipase [Enzymatic activity/v olume] in Serum or PlasmaOrdered By: John Cortes on 06-18-2022 Lipase [Catalytic activity/Vol] 64.0 U/L 11.0-82.0 [facility] Lymphocytes Auto (Bld) [#/Vo l]Ordered By: John Cortes on 06-18-2022 Lymphocytes (Bld) [#/Vol] 3.2 10*3/uL 1.00-4.8 [facility] Lymphocytes/100 WBC Auto (Bl d)Ordered By: John Cortes on 06-18-2022 Lymphocytes/100 WBC (Bld) 28.5 % . [facility] MCH Auto (RBC) [Entitic mass ]Ordered By: John Cortes on 06-18-2022 MCH (RBC) [Entitic mass] 27.4 pg 24.7-34.3 [facility] MCHC Auto (RBC) [Mass/Vol]Or dered By: John Cortes on 06-18-2022 MCHC (RBC) [Mass/Vol] 33.3 g/dL 32.0-35.0 [facility] MCV Auto (RBC) [Entitic vol] Ordered By: John Cortes on 06-18-2022 MCV (RBC) [Entitic vol] 82.2 fL 80-100 [facility] Monocytes Auto (Bld) [#/Vol] Ordered By: John Cortes on 06-18-2022 Monocytes (Bld) [#/Vol] 0.8 10*3/uL 0.0-0.8 [facility] Monocytes/100 WBC Auto (Bld) Ordered By: John Cortes on 06-18-2022 Monocytes/100 WBC (Bld) 7.7 % . [facility] Neutrophils Auto (Bld) [#/Vo l]Ordered By: John Cortes on 06-18-2022 Neutrophils (Bld) [#/Vol] 6.7 10*3/uL 1.8-7.7 [facility] Neutrophils/100 WBC Auto (Bl d)Ordered By: John Cortes on 06-18-2022 Neutrophils/100 WBC (Bld) 60.9 % . [facility] Nitrite Test strip Ql (U)Ord ered By: John Cortes on 06-18-2022 Nitrite Ql (U) Negative Negative [facility] No Panel InformationOrdered By: John Cortes on 06-18-2022 None seen [LPF] 0-8 [facility] > 60.0 [facility] 88.30 [facility] Nucleated erythrocytes [Pres ence] in Blood by Automated countOrdered By: John Cortes on 06-18-2022 Nucleated RBC Auto Ql (Bld) 0.1 /100{WBC} 0-0.5 [facility] Platelet mean volume Auto (B ld) [Entitic vol]Ordered By: John Cortes on 06-18-2022 Platelet mean volume (Bld) [Entitic vol] 7.9 fL 6.3-10.7 [facility] Platelets Auto (Bld) [#/Vol] Ordered By: John Cortes on 06-18-2022 Platelets (Bld) [#/Vol] 390 10*3/uL 150-450 [facility] Potassium [Moles/volume] in Serum or PlasmaOrdered By: John Cortes on 06-18-2022 Potassium [Moles/Vol] 3.5 mmol/L 3.5-5.1 [facility] Protein Auto test strip (U) [Mass/Vol]Ordered By: John Cortes on 06-18-2022 Protein (U) [Mass/Vol] Negative Negative [facility] Protein [Mass/volume] in Ser um or PlasmaOrdered By: John Cortes on 06-18-2022 Protein [Mass/Vol] 8.1 g/dL 6.4-8.9 [facility] RBC Auto (Bld) [#/Vol]Ordere d By: John Cortes on 06-18-2022 RBC (Bld) [#/Vol] 4.70 10*6/uL 3.60-5.00 [facility] Serum or plasma albumin/glob ulin mass ratioOrdered By: John Cortes on 06-18-2022 Albumin/Globulin [Mass ratio] 1.5 {ratio} [facility] Serum or plasma anion gap de terminationOrdered By: John Cortes on 06-18-2022 Anion gap [Moles/Vol] 12.8 mmol/L 6.0-15.0 [facility] Sodium [Moles/volume] in Ser um or PlasmaOrdered By: John Cortes on 06-18-2022 Sodium [Moles/Vol] 137 mmol/L 136-145 [facility] Specific gravity Auto test s trip (U) [Rel density]Ordered By: John Cortes on 06-18-2022 Specific gravity (U) [Rel density] 1.018 1.001-1.030 [facility] Squamous epithelial cells de tection in urine sediment by light microscopyOrdered By: John Cortes on 06-18-2022 Epithelial cells.squamous LM Ql (Urine sed) 1-2 [HPF] 0-2 [facility] Troponin I.cardiac [Mass/vol ume] in Serum or Plasma by Detection limit <= 0.01 ng/Ordered By: John Cortes on 06-18-2022 Troponin I.cardiac DL <= 0.01 ng/mL [Mass/Vol] 4.0 pg/mL 0.0-15.0 [facility] Urea nitrogen [Mass/volume] in Serum or PlasmaOrdered By: John Cortes on 06-18-2022 Urea nitrogen [Mass/Vol] 13 mg/dL 7- [facility] Urine bacteria detection by automated methodOrdered By: John Cortes on 06-18-2022 Bacteria Auto Ql (U) None seen None Seen [facility] Urine clarity by refractomet ry automatedOrdered By: John Cortes on 06-18-2022 Clarity Refractometry automated (U) Clear Clear [facility] Urine glucose measurement by automated test strip (mass/volume)Ordered By: John Cortes on 06-18-2022 Glucose Auto test strip (U) [Mass/Vol] Normal mg/dL Normal [facility] Urine hemoglobin detection b y automated test stripOrdered By: John Cortes on 06-18-2022 Hemoglobin Auto test strip Ql (U) 3+ Negative [facility] Urine leukocyte esterase det ection by automated test stripOrdered By: John Cortes on 06-18-2022 Leukocyte esterase Auto test strip Ql (U) 1+ Negative [facility] Urobilinogen Auto test strip (U) [Mass/Vol]Ordered By: John Cortes on 06-18-2022 Urobilinogen (U) [Mass/Vol] Normal mg/dL Normal [facility] WBC Auto (Bld) [#/Vol]Ordere d By: John Cortes on 06-18-2022 WBC (Bld) [#/Vol] 11.1 10*3/uL 3.8-11.6 [facility] pH Auto test strip (U)Ordere d By: John Cortes on 06-18-2022 pH (U) 5.5 [pH] 5.0-9.0 [facility] Alanine aminotransferase [En zymatic activity/volume] in Serum or PlasmaOrdered By: Denver Hess on 06-09-2022 ALT [Catalytic activity/Vol] 20 U/L 752 [facility] Albumin [Mass/volume] in Ser um or Plasma by Bromocresol green (BCG) dye binding methoOrdered By: Denver Hess on 06-09-2022 Albumin BCG dye [Mass/Vol] 4.4 g/dL 3.5-5.7 [facility] Alkaline phosphatase [Enzyma tic activity/volume] in Serum or PlasmaOrdered By: Denver Hess on 06-09-2022 ALP [Catalytic activity/Vol] 73 U/L 34-104 [facility] Amphetamine Screen Ql (U)Ord ered By: Denver Hess on 06-09-2022 Amphetamines Ql (U) Negative Negative [facility] Aspartate aminotransferase [ Enzymatic activity/volume] in Serum or PlasmaOrdered By: Denver Hess on 06-09-2022 AST [Catalytic activity/Vol] 18 U/L 13-39 [facility] Automated erythrocytes count in urine sediment (number/area)Ordered By: Denver Hess on 06-09-2022 RBC Auto (Urine sed) [#/Area] 5-9 [HPF] 0-4 [facility] Automated leukocytes count i n urine sediment (number/area)Ordered By: Denver Hess on 06-09-2022 WBC Auto (Urine sed) [#/Area] 5-9 [HPF] 0-4 [facility] Barbiturates [Presence] in U rine by Screen methodOrdered By: Denver Hess on 06-09-2022 Barbiturates Screen Ql (U) Negative Negative [facility] Basophils Auto (Bld) [#/Vol] Ordered By: Denver Hess on 06-09-2022 Basophils (Bld) [#/Vol] 0.0 10*3/uL 0.0-0.2 [facility] Basophils/100 WBC Auto (Bld) Ordered By: Denver Hess on 06-09-2022 Basophils/100 WBC (Bld) 0.5 % . [facility] Benzodiazepines Screen Ql (U )Ordered By: Denver Hess on 06-09-2022 Benzodiazepines Ql (U) Negative Negative [facility] Benzoylecgonine [Presence] i n Urine by Screen methodOrdered By: Denver Hess on 06-09-2022 Benzoylecgonine Screen Ql (U) Negative Negative [facility] Bilirubin Test strip Ql (U)O rdered By: Denver Hess on 06-09-2022 Bilirubin Ql (U) Negative Negative [facility] Bilirubin.total [Mass/volume ] in Serum or PlasmaOrdered By: Denver Hess on 06-09-2022 Bilirubin [Mass/Vol] 0.2 mg/dL 0.3-1.0 [facility] Calcium [Mass/volume] in Ser um or PlasmaOrdered By: Denver Hess on 06-09-2022 Calcium [Mass/Vol] 9.3 mg/dL 8.6-10.3 [facility] Cannabinoids [Presence] in U rine by Screen methodOrdered By: Denver Hess on 06-09-2022 Cannabinoids Screen Ql (U) Negative Negative [facility] Carbon dioxide, total [Moles /volume] in Serum or PlasmaOrdered By: Denver Hess on 06-09-2022 CO2 [Moles/Vol] 22.5 mmol/L 21.0-31.0 [facility] Chloride [Moles/volume] in S jett or PlasmaOrdered By: Denver Hess on 06-09-2022 Chloride [Moles/Vol] 105 mmol/L 98-107 [facility] Cholesterol [Mass/volume] in Serum or PlasmaOrdered By: Joshua Ram on 06-09-2022 Cholesterol [Mass/Vol] 193 mg/dL 140-200 [facility] Cholesterol in LDL Calc [Mas s/Vol]Ordered By: Joshua Ram on 06-09-2022 Cholesterol in LDL [Mass/Vol] 94 mg/dL 0-100 [facility] Cholesterol in VLDL Calc [Ma ss/Vol]Ordered By: Joshua Ram on 06-09-2022 Cholesterol in VLDL [Mass/Vol] 53 mg/dL [facility] Color Auto (U)Ordered By: Rosy Hess on 06-09-2022 Color (U) Yellow Yellow [facility] Creatinine [Mass/volume] in Serum or PlasmaOrdered By: Denver Hess on 06-09-2022 Creatinine [Mass/Vol] 0.79 mg/dL 0.60-1.20 [facility] Eosinophils Auto (Bld) [#/Vo l]Ordered By: Denver Hess on 06-09-2022 Eosinophils (Bld) [#/Vol] 0.3 10*3/uL 0.0-0.45 [facility] Eosinophils/100 WBC Auto (Bl d)Ordered By: Denver Hess on 06-09-2022 Eosinophils/100 WBC (Bld) 3.5 % . [facility] Erythrocyte distribution wid th Auto (RBC) [Ratio]Ordered By: Denver Hess on 06-09-2022 Erythrocyte distribution width (RBC) [Ratio] 20.1 % 11.9-15.3 [facility] Ethanol [Mass/volume] in Ser um or PlasmaOrdered By: Denver Hess on 06-09-2022 Ethanol [Mass/Vol] mg/dL [facility] Ethanol [Mass/Vol] TNP [facility] Globulin Calc (S) [Mass/Vol] Ordered By: Denver Hess on 06-09-2022 Globulin (S) [Mass/Vol] 2.7 g/dL [facility] Glucose [Mass/volume] in Ser um or PlasmaOrdered By: Denver Hess on 06-09-2022 Glucose [Mass/Vol] 108 mg/dL 74-109 [facility] HCG ( test) IA.rapi d Ql (U)Ordered By: Denver Hess on 06-09-2022 HCG ( test) Ql (U) Negative [facility] Hematocrit Auto (Bld) [Volum e fraction]Ordered By: Denver Hess on 06-09-2022 Hematocrit (Bld) [Volume fraction] 37.9 % 34.0-46.4 [facility] Hemoglobin [Mass/volume] in BloodOrdered By: Denver Hess on 06-09-2022 Hemoglobin (Bld) [Mass/Vol] 12.4 g/dL 11.8-15.4 [facility] Ketones Auto test strip (U) [Mass/Vol]Ordered By: Denver Hess on 06-09-2022 Ketones (U) [Mass/Vol] Trace Negative [facility] Leukocytes [#/volume] correc jacki for nucleated erythrocytes in Blood by Automated counOrdered By: Denver Hess on 06-09-2022 WBC corrected for nucl RBC Auto (Bld) [#/Vol] 9.1 10*3/uL 3.8-11.6 [facility] Lymphocytes Auto (Bld) [#/Vo l]Ordered By: Denver Hess on 06-09-2022 Lymphocytes (Bld) [#/Vol] 3.1 10*3/uL 1.00-4.8 [facility] Lymphocytes/100 WBC Auto (Bl d)Ordered By: Denver Hess on 06-09-2022 Lymphocytes/100 WBC (Bld) 34.0 % . [facility] MCH Auto (RBC) [Entitic mass ]Ordered By: Denver Hess on 06-09-2022 MCH (RBC) [Entitic mass] 26.9 pg 24.7-34.3 [facility] MCHC Auto (RBC) [Mass/Vol]Or dered By: Denver Hess on 06-09-2022 MCHC (RBC) [Mass/Vol] 32.8 g/dL 32.0-35.0 [facility] MCV Auto (RBC) [Entitic vol] Ordered By: Denver Hess on 06-09-2022 MCV (RBC) [Entitic vol] 82.2 fL 80-100 [facility] Monocyte distribution width [Entitic volume] in Blood by AutomatedOrdered By: Denver Hess on 06-09-2022 Monocyte distribution width Auto (Bld) [Entitic vol] 18.37 % 0.00-20.00 [facility] Monocytes Auto (Bld) [#/Vol] Ordered By: Denver Hess on 06-09-2022 Monocytes (Bld) [#/Vol] 0.7 10*3/uL 0.0-0.8 [facility] Monocytes/100 WBC Auto (Bld) Ordered By: Denver Hess on 06-09-2022 Monocytes/100 WBC (Bld) 8.0 % . [facility] Mucus LM Ql (Urine sed)Order ed By: Denver Hess on 06-09-2022 Mucus Ql (Urine sed) 1+ [LPF] [facility] Neutrophils Auto (Bld) [#/Vo l]Ordered By: Denver Hess on 06-09-2022 Neutrophils (Bld) [#/Vol] 4.9 10*3/uL 1.8-7.7 [facility] Neutrophils/100 WBC Auto (Bl d)Ordered By: Denver Hess on 06-09-2022 Neutrophils/100 WBC (Bld) 54.0 % . [facility] Nitrite Test strip Ql (U)Ord ered By: Denver Hess on 06-09-2022 Nitrite Ql (U) Negative Negative [facility] No Panel InformationOrdered By: Denver Hess on 06-09-2022 0-8 [LPF] 0-8 [facility] > 60.0 [facility] 90.62 [facility] Nucleated erythrocytes [Pres ence] in Blood by Automated countOrdered By: Denver Hess on 06-09-2022 Nucleated RBC Auto Ql (Bld) 0.2 /100{WBC} 0-0.5 [facility] Opiates [Presence] in Urine by Screen methodOrdered By: Denver Hess on 06-09-2022 Opiates Screen Ql (U) Negative Negative [facility] Phencyclidine Screen Ql (U)O rdered By: Denver Hess on 06-09-2022 Phencyclidine Ql (U) Negative Negative [facility] Platelet mean volume Auto (B ld) [Entitic vol]Ordered By: Denver Hess on 06-09-2022 Platelet mean volume (Bld) [Entitic vol] 8.2 fL 6.3-10.7 [facility] Platelets Auto (Bld) [#/Vol] Ordered By: Denver Hess on 06-09-2022 Platelets (Bld) [#/Vol] 344 10*3/uL 150-450 [facility] Potassium [Moles/volume] in Serum or PlasmaOrdered By: Denver Hess on 06-09-2022 Potassium [Moles/Vol] 4.0 mmol/L 3.5-5.1 [facility] Protein Auto test strip (U) [Mass/Vol]Ordered By: Denver Hess on 06-09-2022 Protein (U) [Mass/Vol] Trace mg/dL Negative [facility] Protein [Mass/volume] in Ser um or PlasmaOrdered By: Denver Hess on 06-09-2022 Protein [Mass/Vol] 7.1 g/dL 6.4-8.9 [facility] RBC Auto (Bld) [#/Vol]Ordere d By: Denver Hess on 06-09-2022 RBC (Bld) [#/Vol] 4.61 10*6/uL 3.60-5.00 [facility] Serum or plasma albumin/glob ulin mass ratioOrdered By: Denver Hess on 06-09-2022 Albumin/Globulin [Mass ratio] 1.6 {ratio} [facility] Serum or plasma anion gap de terminationOrdered By: Denver Hess on 06-09-2022 Anion gap [Moles/Vol] 15.5 mmol/L 6.0-15.0 [facility] Serum or plasma high density lipoprotein (HDL) cholesterol measurementOrdered By: Joshua Ram on 06-09-2022 Cholesterol in HDL [Mass/Vol] 46 mg/dL 35-85 [facility] Serum or plasma total choles terol/high density lipoprotein (HDL) cholesterol mass ratOrdered By: Joshua Ram on 06-09-2022 Cholesterol.total/Choles terol in HDL [Mass ratio] 4.2 {ratio} <5.0 [facility] Sodium [Moles/volume] in Ser um or PlasmaOrdered By: Denver Hess on 06-09-2022 Sodium [Moles/Vol] 139 mmol/L 136-145 [facility] Specific gravity Auto test s trip (U) [Rel density]Ordered By: Denver Hess on 06-09-2022 Specific gravity (U) [Rel density] 1.038 1.001-1.030 [facility] Squamous epithelial cells de tection in urine sediment by light microscopyOrdered By: Denver Hess on 06-09-2022 Epithelial cells.squamous LM Ql (Urine sed) 5-9 [HPF] 0-2 [facility] Thyrotropin [Units/volume] i n Serum or PlasmaOrdered By: Joshua Ram on 06-09-2022 TSH Qn 1.69 m[IU]/L 0.45-5.33 [facility] Triglyceride [Mass/volume] i n Serum or PlasmaOrdered By: Joshua Ram on 06-09-2022 Triglyceride [Mass/Vol] 266 mg/dL 0-149 [facility] Urea nitrogen [Mass/volume] in Serum or PlasmaOrdered By: Denver Hess on 06-09-2022 Urea nitrogen [Mass/Vol] 13 mg/dL 7-25 [facility] Urine bacteria detection by automated methodOrdered By: Denver Hess on 06-09-2022 Bacteria Auto Ql (U) None seen None Seen [facility] Urine clarity by refractomet ry automatedOrdered By: Denver Hess on 06-09-2022 Clarity Refractometry automated (U) Clear Clear [facility] Urine culture routineOrdered By: Denver Hess on 06-09-2022 Bacteria identified Cx Nom (U) 2 Days [facility] Urine glucose measurement by automated test strip (mass/volume)Ordered By: Denver Hess on 06-09-2022 Glucose Auto test strip (U) [Mass/Vol] Normal mg/dL Normal [facility] Urine hemoglobin detection b y automated test stripOrdered By: Denver Hess on 06-09-2022 Hemoglobin Auto test strip Ql (U) 2+ Negative [facility] Urine leukocyte esterase det ection by automated test stripOrdered By: Denver Hess on 06-09-2022 Leukocyte esterase Auto test strip Ql (U) 1+ Negative [facility] Urobilinogen Auto test strip (U) [Mass/Vol]Ordered By: Denver Hess on 06-09-2022 Urobilinogen (U) [Mass/Vol] Normal mg/dL Normal [facility] Vitamin D+Metabolites [Mass/ volume] in Serum or PlasmaOrdered By: Joshua Ram on 06-09-2022 Vitamin D+Metabolites [Mass/Vol] 16.0 ng/mL 30-100 [facility] WBC Auto (Bld) [#/Vol]Ordere d By: Denver Hess on 06-09-2022 WBC (Bld) [#/Vol] 9.1 10*3/uL 3.8-11.6 [facility] pH Auto test strip (U)Ordere d By: Denver Hess on 06-09-2022 pH (U) 5.5 [pH] 5.0-9.0 [facility] Albumin [Mass/volume] in Ser um or PlasmaOrdered By: Drew Ba on 05-26-2022 Albumin [Mass/Vol] 4.0 g/dL 3.2-5.5 [facility] Alkaline phosphatase [Enzyma tic activity/volume] in Serum or PlasmaOrdered By: Drew Ba on 05-26-2022 ALP [Catalytic activity/Vol] 68 U/L 32-92 [facility] Aspartate aminotransferase [ Enzymatic activity/volume] in Serum or PlasmaOrdered By: Drew Ba on 05-26-2022 AST [Catalytic activity/Vol] 18 U/L 10-42 [facility] Automated erythrocytes count in urine sediment (number/area)Ordered By: Drew Ba on 05-26-2022 RBC Auto (Urine sed) [#/Area] 0-1 [HPF] 0-4 [facility] Automated leukocytes count i n urine sediment (number/area)Ordered By: Drew Ba on 05-26-2022 WBC Auto (Urine sed) [#/Area] None seen [HPF] 0-4 [facility] Basophils Auto (Bld) [#/Vol] Ordered By: Drew Ba on 05-26-2022 Basophils (Bld) [#/Vol] 0.0 10*3/uL 0.0-0.2 [facility] Basophils/100 WBC Auto (Bld) Ordered By: Drew Ba on 05-26-2022 Basophils/100 WBC (Bld) 0.6 % . [facility] Bilirubin Test strip Ql (U)O rdered By: Drew Ba on 05-26-2022 Bilirubin Ql (U) Negative Negative [facility] Bilirubin.direct [Mass/volum e] in Serum or PlasmaOrdered By: Drew Ba on 05-26-2022 Bilirubin.direct [Mass/Vol] mg/dL 0.0-0.4 [facility] Bilirubin.total [Mass/volume ] in Serum or PlasmaOrdered By: Drew Ba on 05-26-2022 Bilirubin [Mass/Vol] 0.3 mg/dL 0.3-1.2 [facility] Calcium [Mass/volume] in Ser um or PlasmaOrdered By: Drew Ba on 05-26-2022 Calcium [Mass/Vol] 9.0 mg/dL 8.2-10.2 [facility] Carbon dioxide, total [Moles /volume] in Serum or PlasmaOrdered By: Drew Ba on 05-26-2022 CO2 [Moles/Vol] 23.4 mmol/L 22.0-30.0 [facility] Chloride [Moles/volume] in S jett or PlasmaOrdered By: Drew Ba on 05-26-2022 Chloride [Moles/Vol] 105 mmol/L 95-114 [facility] Color Auto (U)Ordered By: Miguel Angel Ba on 05-26-2022 Color (U) Yellow Yellow [facility] Eosinophils Auto (Bld) [#/Vo l]Ordered By: Drew Ba on 05-26-2022 Eosinophils (Bld) [#/Vol] 0.3 10*3/uL 0.0-0.45 [facility] Eosinophils/100 WBC Auto (Bl d)Ordered By: Drew Ba on 05-26-2022 Eosinophils/100 WBC (Bld) 4.5 % . [facility] Erythrocyte distribution wid th Auto (RBC) [Ratio]Ordered By: Drew Ba 05-26-2022 Erythrocyte distribution width (RBC) [Ratio] 19.4 % 11.9-15.3 [facility] Estimated glomerular filtrat ion rate (GFR) non- AmericanOrdered By: Drew Ba on 05-26-2022 GFR/1.73 sq M.predicted among non-blacks MDRD (S/P/Bld) [Vol rate/Area] > 60 mL/Min [facility] Globulin Calc (S) [Mass/Vol] Ordered By: Drew Ba 05-26-2022 Globulin (S) [Mass/Vol] 2.9 g/dL [facility] Glucose [Mass/volume] in Ser um or PlasmaOrdered By: Drew Ba 05-26-2022 Glucose [Mass/Vol] 103 mg/dL 70-100 [facility] Hematocrit Auto (Bld) [Volum e fraction]Ordered By: Drew Ba 05-26-2022 Hematocrit (Bld) [Volume fraction] 37.5 % 34.0-46.4 [facility] Hemoglobin [Mass/volume] in BloodOrdered By: Drew Ba on 05-26-2022 Hemoglobin (Bld) [Mass/Vol] 12.2 g/dL 11.8-15.4 [facility] Ketones Auto test strip (U) [Mass/Vol]Ordered By: Drew Ba on 05-26-2022 Ketones (U) [Mass/Vol] Negative Negative [facility] Leukocytes [#/volume] correc jacki for nucleated erythrocytes in Blood by Automated counOrdered By: Drew Ba on 05-26-2022 WBC corrected for nucl RBC Auto (Bld) [#/Vol] 7.6 10*3/uL 3.8-11.6 [facility] Lymphocytes Auto (Bld) [#/Vo l]Ordered By: Drew Ba on 05-26-2022 Lymphocytes (Bld) [#/Vol] 2.3 10*3/uL 1.00-4.8 [facility] Lymphocytes/100 WBC Auto (Bl d)Ordered By: Drew Ba on 05-26-2022 Lymphocytes/100 WBC (Bld) 30.3 % . [facility] MCH Auto (RBC) [Entitic mass ]Ordered By: Drew Ba on 05-26-2022 MCH (RBC) [Entitic mass] 26.4 pg 24.7-34.3 [facility] MCHC Auto (RBC) [Mass/Vol]Or dered By: Drew Ba on 05-26-2022 MCHC (RBC) [Mass/Vol] 32.6 g/dL 32.0-35.0 [facility] MCV Auto (RBC) [Entitic vol] Ordered By: Drew Ba on 05-26-2022 MCV (RBC) [Entitic vol] 81.1 fL 80-100 [facility] Monocyte distribution width [Entitic volume] in Blood by AutomatedOrdered By: Drew Ba on 05-26-2022 Monocyte distribution width Auto (Bld) [Entitic vol] 16.54 % 0.00-20.00 [facility] Monocytes Auto (Bld) [#/Vol] Ordered By: Drew Ba on 05-26-2022 Monocytes (Bld) [#/Vol] 0.6 10*3/uL 0.0-0.8 [facility] Monocytes/100 WBC Auto (Bld) Ordered By: Drew Ba on 05-26-2022 Monocytes/100 WBC (Bld) 8.1 % . [facility] Neutrophils Auto (Bld) [#/Vo l]Ordered By: Drew Ba on 05-26-2022 Neutrophils (Bld) [#/Vol] 4.3 10*3/uL 1.8-7.7 [facility] Neutrophils/100 WBC Auto (Bl d)Ordered By: Drew Ba on 05-26-2022 Neutrophils/100 WBC (Bld) 56.5 % . [facility] Nitrite Test strip Ql (U)Ord ered By: Drew Ba on 05-26-2022 Nitrite Ql (U) Negative Negative [facility] No Panel InformationOrdered By: Drew Ba on 05-26-2022 > 60 mL/Min [facility] 58.0 U/L 22-51 [facility] 115.58 [facility] None seen [LPF] 0-8 [facility] Nucleated erythrocytes [Pres ence] in Blood by Automated countOrdered By: Drew Ba on 05-26-2022 Nucleated RBC Auto Ql (Bld) 0.1 /100{WBC} 0-0.5 [facility] Platelet mean volume Auto (B ld) [Entitic vol]Ordered By: Drew Ba on 05-26-2022 Platelet mean volume (Bld) [Entitic vol] 7.8 fL 6.3-10.7 [facility] Platelets Auto (Bld) [#/Vol] Ordered By: Drew Ba on 05-26-2022 Platelets (Bld) [#/Vol] 413 10*3/uL 150-450 [facility] Potassium [Moles/volume] in Serum or PlasmaOrdered By: Drew Ba on 05-26-2022 Potassium [Moles/Vol] 3.8 mmol/L 3.5-5.1 [facility] Protein Auto test strip (U) [Mass/Vol]Ordered By: Drew Ba on 05-26-2022 Protein (U) [Mass/Vol] Negative Negative [facility] Protein [Mass/volume] in Ser um or PlasmaOrdered By: Drew Ba on 05-26-2022 Protein [Mass/Vol] 6.9 g/dL 6.1-7.9 [facility] RBC Auto (Bld) [#/Vol]Ordere d By: Drew Ba on 05-26-2022 RBC (Bld) [#/Vol] 4.63 10*6/uL 3.60-5.00 [facility] Serum or plasma alanine ocampo otransferase measurement without P-5'-P (enzymatic activiOrdered By: Drew Ba on 05-26-2022 ALT No additional P-5'-P [Catalytic activity/Vol] 18 U/L 10-60 [facility] Serum or plasma albumin/glob ulin mass ratioOrdered By: Drew Ba on 05-26-2022 Albumin/Globulin [Mass ratio] 1.4 {ratio} [facility] Serum or plasma anion gap de terminationOrdered By: Drew Ba on 05-26-2022 Anion gap [Moles/Vol] 10.4 mmol/L 6.0-15.0 [facility] Serum or plasma creatinine m easurement with calculation of estimated glomerular filtrOrdered By: Drew Ba on 05-26-2022 Creatinine and Glomerular filtration rate.predicted panel (S/P/Bld) 0.63 mg/dL 0.44-1.03 [facility] Serum or plasma non-glucuron idated bilirubin measurement (mass/volume)Ordered By: Drew Ba on 05-26-2022 Bilirubin.indirect [Mass/Vol] TNP [facility] Sodium [Moles/volume] in Ser um or PlasmaOrdered By: Drew Ba on 05-26-2022 Sodium [Moles/Vol] 135 mmol/L 136-146 [facility] Specific gravity Auto test s trip (U) [Rel density]Ordered By: Drew Ba on 05-26-2022 Specific gravity (U) [Rel density] 1.003 1.001-1.030 [facility] Squamous epithelial cells de tection in urine sediment by light microscopyOrdered By: Drew Ba 05-26-2022 Epithelial cells.squamous LM Ql (Urine sed) None seen [HPF] 0-2 [facility] Troponin I.cardiac [Mass/vol ume] in Serum or Plasma by High sensitivity methodOrdered By: Drew Ba on 05-26-2022 Troponin I.cardiac High sensitivity method [Mass/Vol] 5 pg/mL 0-15 [facility] Urea nitrogen [Mass/volume] in Serum or PlasmaOrdered By: Drew Ba on 05-26-2022 Urea nitrogen [Mass/Vol] 9 mg/dL 9-23 [facility] Urine bacteria detection by automated methodOrdered By: Drew Ba on 05-26-2022 Bacteria Auto Ql (U) None seen None Seen [facility] Urine clarity by refractomet ry automatedOrdered By: Drew Ba on 05-26-2022 Clarity Refractometry automated (U) Clear Clear [facility] Urine glucose measurement by automated test strip (mass/volume)Ordered By: Drew Ba on 05-26-2022 Glucose Auto test strip (U) [Mass/Vol] Normal mg/dL Normal [facility] Urine hemoglobin detection b y automated test stripOrdered By: Drew Ba on 05-26-2022 Hemoglobin Auto test strip Ql (U) 1+ Negative [facility] Urine leukocyte esterase det ection by automated test stripOrdered By: Drew Ba on 05-26-2022 Leukocyte esterase Auto test strip Ql (U) Negative Negative [facility] Urobilinogen Auto test strip (U) [Mass/Vol]Ordered By: Drew Ba on 05-26-2022 Urobilinogen (U) [Mass/Vol] Normal mg/dL Normal [facility] WBC Auto (Bld) [#/Vol]Ordere d By: Drew Ba on 05-26-2022 WBC (Bld) [#/Vol] 7.6 10*3/uL 3.8-11.6 [facility] pH Auto test strip (U)Ordere d By: Drew Ba on 05-26-2022 pH (U) 6.0 [pH] 5.0-9.0 [facility] CBC AUTO DIFFon 05-25-2022 BASO # 0.0 103/ul Normal 0.0-0.1 [facility] Comment on above: Performed By: #### E RUR, UMICRO #### [facility] [address] [place] [address] Dr. Lety Nguyen Basophils/100 WBC (Bld) 0.3 % Normal 0.2-2.0 [facility] Comment on above: Performed By: #### PAWAN CLIFTONRO #### [facility] [address] [place] [address] Dr. Lety Nguyen EO # 0.3 103/ul Normal 0.0-0.7 [facility] Comment on above: Performed By: #### PAWAN CLIFTONRO #### [facility] [address] [place] [address] Dr. Lety Nguyen Eosinophils/100 WBC (Bld) 3.8 % Normal 0.9-7.0 [facility] Comment on above: Performed By: #### PAWAN CLIFTONRO #### [facility] [address] [place] [address] Dr. Lety Nguyen Erythrocyte distribution width (RBC) [Ratio] 18.3 % Critically high 11.0-15.0 [facility] Comment on above: Performed By: #### PAWAN CLIFTONRO #### [facility] [address] [place] [address] Dr. Lety Nguyen Hematocrit (Bld) [Volume fraction] 37.2 % Normal 36.0-48.0 [facility] Comment on above: Performed By: #### PAWAN CLIFTONRO #### [facility] [address] [place] [address] Dr. Lety Nguyen Hemoglobin (Bld) [Mass/Vol] 11.8 g/dL Critically low 12.0-16.0 [facility] Comment on above: Performed By: #### PAWAN CLIFTONRO #### [facility] [address] [place] [address] Dr. Lety Nguyen IG # 0.02 10e3/ul Normal 0.00-0.03 [facility] Comment on above: Performed By: #### PAWAN CLIFTONRO #### [facility] [address] [place] [address] Dr. Lety Nguyen IG % 0.3 % Normal 0.0-0.5 [facility] Comment on above: Performed By: #### PAWAN CLIFTONRO #### [facility] [address] [place] [address] Dr. Lety Nguyen LYMPH # 2.8 103/ul Normal 1.2-3.8 [facility] Comment on above: Performed By: #### KEVYN CLIFTONICRO #### [facility] [address] [place] [address] Dr. Lety Nguyen Lymphocytes/100 WBC (Bld) 34.9 % Normal 20.5-60.0 [facility] Comment on above: Performed By: #### Jesus MARI UMICRO #### [facility] [address] [place] [address] Dr. Lety Nguyen MANUAL DIFF REQ NO Normal [facility] Comment on above: Performed By: #### KEVYN CLIFTONICRO #### [facility] [address] [place] [address] Dr. Lety Nguyen MCH (RBC) [Entitic mass] 26.2 pg Critically low 26.7-34 .0 [facility] Comment on above: Performed By: #### Jesus MARI UMICRO #### [facility] [address] [place] [address] Dr. Lety Nguyen MCHC (RBC) [Mass/Vol] 31.7 g/dL Normal 29.9-35.2 [facility] Comment on above: Performed By: #### Jesus MARI UMICRO #### [facility] [address] [place] [address] Dr. Lety Nguyen MCV (RBC) [Entitic vol] 82.5 fL Normal 81.0-99.0 [facility] Comment on above: Performed By: #### Jesus MARI UMICRO #### [facility] [address] [place] [address] Dr. Lety Nguyen MONO # 0.7 103/ul Normal 0.3-0.8 [facility] Comment on above: Performed By: #### KEVYN CLIFTONICRO #### [facility] [address] [place] [address] Dr. Lety Nguyen Monocytes/100 WBC (Bld) 8.2 % Normal 1.7-12.0 [facility] Comment on above: Performed By: #### Jesus MARI UMICRO #### [facility] [address] [place] [address] Dr. Lety Nguyen NEUT # 4.2 103/ul Normal 1.4-6.5 [facility] Comment on above: Performed By: #### Jesus MARI UMICRO #### [facility] [address] [place] [address] Dr. Lety Nguyen Neutrophils/100 WBC (Bld) 52.5 % Normal 43.0-75.0 [facility] Comment on above: Performed By: #### KEVYN CLIFTONICRO #### [facility] [address] [place] [address] Dr. Lety Nguyen Platelet mean volume (Bld) [Entitic vol] 9.4 fL Critically low 9.5-13.5 [facility] Comment on above: Performed By: #### KEVYN CLIFTONICRO #### [facility] [address] [place] [address] Dr. Lety Nguyen PLT 447 103/ul Normal 150-450 [facility] Comment on above: Performed By: #### KEVYN CLIFTONICRO #### [facility] [address] [place] [address] Dr. Lety Nguyen RBC 4.51 106/ul Normal 4.20-5.40 [facility] Comment on above: Performed By: #### KEVYN CLIFTONICRO #### [facility] [address] [place] [address] Dr. Lety Nguyen WBC 7.9 103/ul Normal 4.0-11.0 [facility] Comment on above: Performed By: #### KEVYN CLIFTONICRO #### [facility] [address] [place] [address] ABD/PELVIS WO CONon 05-25 CT ABD/PELVIS WO CON EXAMINATION: CT ABD/PELVIS WO CON, 05/25/2022 12:39 AM EST HISTORY: CALCULUS OF KIDNEY Right flank pain COMPARISON: None. TECHNIQUE: CT scan of the abdomen and pelvis was performed without IV contrast. Multiplanar reformats were generated. CT dose reduction technique was used, including Automated Exposure Control. FINDINGS: Exam is limited by lack of contrast. Lower thorax: Dependent opacities in the lungs most suggestive of atelectasis. No pleural or pericardial effusion. Heart size upper normal. Small hiatal hernia. Liver: Unremarkable. Biliary: The gallbladder appears contracted without evidence for calcified stones. Spleen: Unremarkable Pancreas: Unremarkable. Adrenals: Mildly thickened without evidence for mass. Kidneys and bladder: A couple of punctate nonobstructing calcifications in the lower pole of the right kidney. No evidence of ureteral stones or hydronephrosis bilaterally. Bladder is incompletely distended, grossly unremarkable. GI Tract: Nondistended stomach and small bowel. Presumed appendix appears within normal limits. No focal inflammatory process identified. Colonic diverticula are present, without signs of inflammation to suggest diverticulitis. Mild/moderate stool throughout the colon. Lymph Nodes: No lymphadenopathy. Mesentery/peritoneum: No free fluid or free air. Retroperitoneum: No mass or fluid collection. Vasculature: Atherosclerotic calcifications of the aorta and branches without evidence of AAA. Pelvis: No mass visible. Likely follicular changes of the ovaries. Uterus appears grossly unremarkable. There are bilateral adnexal radiodensities consistent with tubal ligation clips. Small focus of low-attenuation likely gas in the upper vagina. Bones/Soft Tissues: No acute abnormality. Mild degenerative changes of the visualized spine.. No significant soft tissue abnormality. IMPRESSION: 1. A couple of tiny nonobstructing right renal calculi. No evidence of ureteral calculi or hydronephrosis. 2. Otherwise limited unenhanced study shows no acute inflammatory or obstructive process in the abdomen or pelvis. 3. Small hiatal hernia. 4. Colonic diverticula, without evidence of diverticulitis. Electronically authenticated by: MEG CORNEJO Date: 2022-05-25 02:06 Normal [facility] DRUG SCREEN RAPID (URINE)on 05-25-2022 AMP Negative Normal NEGATIVE [facility] Comment on above: Performed By: #### U MICRO, DRUGRPD, PREGU, ERUR #### [facility] [address] [address] [address] Lety Nguyen BAR Negative Normal NEGATIVE [facility] Comment on above: Performed By: #### U MICRO, DRUGRPD, PREGU, ERUR #### [facility] [address] [address] [address] Lety Nguyen BUP Negative Normal NEGATIVE [facility] Comment on above: Performed By: #### U MICRO, DRUGRPD, PREGU, ERUR #### [facility] [address] [address] [address] Lety Nguyen BZO Negative Normal NEGATIVE [facility] Comment on above: Performed By: #### U MICRO, DRUGRPD, PREGU, ERUR #### [facility] [address] [address] [address] Lety Nguyen SHARON Negative Normal NEGATIVE [facility] Comment on above: Performed By: #### U MICRO, DRUGRPD, PREGU, ERUR #### [facility] [address] [address] [address] Lety Nguyen CUT-OFFS SEE BELOW Normal [facility] Comment on above: Result Comment: AMP (Amphetamine): 500ng/mL, BAR (Barbituates): 200 ng/mL, BZO (Benzodiazepines): 150 ng/mL, BUP (Buprenorphine): 10 ng/mL, SHARON (Cocaine): 150 ng/mL, mAMP (Methamphetamine): 500 ng/mL, MTD (Methadone): 200 ng/mL, OPI (Opiates): 100 ng/mL, OXY (Oxycodone): 100 ng/mL, PCP (Phencyclidine): 25 ng/mL, PPX (Propoxyphene): 300 ng/mL, THC (Cannabinoids): 50 ng/mL, TCA (Trycyclic Antidepressants): 300 ng/mL Performed By: #### U MICRO, DRUGRPD, PREGU, ERUR #### [facility] [address] [address] [address] Lety Nguyen DRUG CUT HEADER DRUG CLASS TEST SYST EM CUT-OFF CONCENTRATIONS ARE FOLLOWS: Normal [facility] Comment on above: Performed By: #### U MICRO, DRUGRPD, PREGU, ERUR #### [facility] [address] [address] [address] Lety Nguyen mAMP Negative Normal NEGATIVE [facility] Comment on above: Performed By: #### U MICRO, DRUGRPD, PREGU, ERUR #### [facility] [address] [address] [address] Lety Nguyen MTD Negative Normal NEGATIVE [facility] Comment on above: Performed By: #### U MICRO, DRUGRPD, PREGU, ERUR #### [facility] [address] [address] [address] Lety Nguyen OPI Negative Normal NEGATIVE [facility] Comment on above: Performed By: #### U MICRO, DRUGRPD, PREGU, ERUR #### [facility] [address] [place] [address] Dr. Lety Nguyen OXY Negative Normal NEGATIVE [facility] Comment on above: Performed By: #### U MICRO, DRUGRPD, PREGU, ERUR #### [facility] [address] [place] [address] Dr. Lety Nguyen PCP Negative Normal NEGATIVE [facility] Comment on above: Performed By: #### U MICRO, DRUGRPD, PREGU, ERUR #### [facility] [address] [place] [address] Dr. Lety Nguyen PPX Negative Normal NEGATIVE [facility] Comment on above: Performed By: #### U MICRO, DRUGRPD, PREGU, ERUR #### [facility] [address] [address] [address] Lety Nguyen TCA Negative Normal NEGATIVE [facility] Comment on above: Performed By: #### U MICRO, DRUGRPD, PREGU, ERUR #### [facility] [address] [place] [address] Dr. Lety Nguyen THC Negative Normal NEGATIVE [facility] Comment on above: Performed By: #### U MICRO, DRUGRPD, PREGU, ERUR #### [facility] [address] [place] [address] Dr. Lety Nguyen ER URINE PROFILEon 3 Bilirubin Ql (U) Negative Normal NEGATIVE [facility] Comment on above: Performed By: #### U MICRO, DRUGRPD, PREGU, ERUR #### [facility] [address] [address] [address] Lety Nguyen Clarity (U) CLEAR Normal CLEAR [facility] Comment on above: Performed By: #### U MICRO, DRUGRPD, PREGU, ERUR #### [facility] [address] [address] [address] Lety Nguyen Color (U) LT. YELLOW Normal YELLOW [facility] Comment on above: Performed By: #### U MICRO, DRUGRPD, PREGU, ERUR #### [facility] [address] [place] [address] Dr. Lety CABRAL A micrscopic examination will be performed if indicated. Normal [facility] Comment on above: Performed By: #### U MICRO, DRUGRPD, PREGU, ERUR #### [facility] [address] [place] [address] Dr. Lety Nguyen Glucose Ql (U) Negative Normal NEGATIVE [facility] Comment on above: Performed By: #### U MICRO, DRUGRPD, PREGU, ERUR #### [facility] [address] [place] [address] Dr. Lety Ngyuen Hemoglobin Ql (U) MODERATE Abnormal NEGATIVE [facility] Comment on above: Performed By: #### U MICRO, DRUGRPD, PREGU, ERUR #### [facility] [address] [address] [address] Lety Nguyen Ketones Ql (U) Negative Normal NEGATIVE [facility] Comment on above: Performed By: #### U MICRO, DRUGRPD, PREGU, ERUR #### [facility] [address] [place] [address] Dr. Lety Nguyen LEUKOCYTES Negative Normal NEGATIVE [facility] Comment on above: Performed By: #### U MICRO, DRUGRPD, PREGU, ERUR #### [facility] [address] [place] [address] Dr. Lety Nguyen Nitrite Ql (U) Negative Normal NEGATIVE [facility] Comment on above: Performed By: #### U MICRO, DRUGRPD, PREGU, ERUR #### [facility] [address] [address] [address] Lety Nguyen pH (U) 5.0 [pH] Normal 5-9 [facility] Comment on above: Performed By: #### U MICRO, DRUGRPD, PREGU, ERUR #### [facility] [address] [address] [address] Lety Nguyen SPEC GRAVITY 1.015 Normal 1.005-<=1.0 25 [facility] Comment on above: Performed By: #### U MICRO, DRUGRPD, PREGU, ERUR #### [facility] [address] [place] [address] Dr. Lety Nguyen UA PROTEIN Negative Normal NEGATIVE/ TRACE [facility] Comment on above: Performed By: #### U MICRO, DRUGRPD, PREGU, ERUR #### [facility] [address] [place] [address] Dr. Lety Nguyen UR MICRO IND INDICATED Normal [facility] Comment on above: Performed By: #### U MICRO, DRUGRPD, PREGU, ERUR #### [facility] [address] [address] [address] Lety Nguyen Urobilinogen Qn (U) 0.2 {Malachi'U}/dL Normal 0.2 - 1. 0 [facility] Comment on above: Performed By: #### U MICRO, DRUGRPD, PREGU, ERUR #### [facility] [address] [place] [address] Dr. Lety Nguyen URon 05-25-2022 , QUAL Negative Normal NEGATIVE [facility] Comment on above: Performed By: #### U MICRO, DRUGRPD, PREGU, ERUR #### [facility] [address] [place] [address] Dr. Lety Nguyen PROF 14(COMP METB)on 023 Albumin [Mass/Vol] 3.7 g/dL Normal 3.4-5.0 [facility] Comment on above: Performed By: #### Jesus MARI UMICRO #### [facility] [address] [place] [address] Dr. Lety Nguyen Albumin/Globulin [Mass ratio] 1.1 {ratio} Normal [facility] Comment on above: Performed By: #### Jesus MARI UMICRO #### [facility] [address] [place] [address] Dr. Lety Nguyen ALP [Catalytic activity/Vol] 88 U/L Normal 46-116 [facility] Comment on above: Performed By: #### Jesus MARI UMICRO #### [facility] [address] [place] [address] Dr. Lety Nguyen ALT [Catalytic activity/Vol] 25 U/L Normal 14-59 [facility] Comment on above: Performed By: #### Jesus MARI UMICRO #### [facility] [address] [place] [address] Dr. Lety Nguyen Anion gap [Moles/Vol] 14.1 mmol/L Normal [facility] Comment on above: Performed By: #### Jesus MARI UMICRO #### [facility] [address] [place] [address] Dr. Lety Nguyen AST [Catalytic activity/Vol] 19 U/L Normal 15-37 [facility] Comment on above: Performed By: #### Jesus MARI UMICRO #### [facility] [address] [place] [address] Dr. Lety Nguyen Bilirubin [Mass/Vol] 0.1 mg/dL Critically low 0.2-1.0 [facility] Comment on above: Performed By: #### Jesus MARI UMICRO #### [facility] [address] [place] [address] Dr. Lety Nguyen Calcium [Mass/Vol] 8.7 mg/dL Normal 8.5-10.1 [facility] Comment on above: Performed By: #### Jesus MARI UMICRO #### [facility] [address] [place] [address] Dr. Lety Nguyen Chloride [Moles/Vol] 103 mmol/L Normal 98-107 [facility] Comment on above: Performed By: #### MARISELA CLIFTON #### [facility] [address] [place] [address] Dr. Lety Nguyen CO2 [Moles/Vol] 24.7 mmol/L Normal 21.0-32.0 [facility] Comment on above: Performed By: #### MARISELA CLIFTON #### [facility] [address] [address] [address] Lety Nguyen Creatinine [Mass/Vol] 0.81 mg/dL Normal 0.55-1.02 [facility] Comment on above: Performed By: #### MARISELA CLIFTON #### [facility] [address] [place] [address] Dr. Lety Nguyen EGFR-AF JAMAICAN >60 Normal >=60 [facility] Comment on above: Performed By: #### MARISELA CLIFTON #### [facility] [address] [place] [address] Dr. Lety Nguyen EGFR-NON AF JAMAICAN >60 Normal >=60 [facility] Comment on above: Performed By: #### MARISELA CLIFTON #### [facility] [address] [place] [address] Dr. Lety Nguyen Globulin (S) [Mass/Vol] 3.5 g/dL Normal [facility] Comment on above: Performed By: #### MARISELA CLIFTON #### [facility] [address] [place] [address] Dr. Lety Nguyen Glucose [Mass/Vol] 111 mg/dL Critically high 74-106 [facility] Comment on above: Performed By: #### MARISELA CLIFTON #### [facility] [address] [place] [address] Dr. Lety Nguyen Potassium [Moles/Vol] 3.8 mmol/L Normal 3.5-5.1 [facility] Comment on above: Performed By: #### MARISELA CLIFTON #### [facility] [address] [place] [address] Dr. Lety Nguyen Protein [Mass/Vol] 7.2 g/dL Normal 6.4-8.2 [facility] Comment on above: Performed By: #### PAWAN CLIFTONRO #### [facility] [address] [place] [address] Dr. Lety Nguyen Sodium [Moles/Vol] 138 mmol/L Normal 136-145 [facility] Comment on above: Performed By: #### PAWAN CLIFTONRO #### [facility] [address] [place] [address] Dr. Lety Nguyen Urea nitrogen [Mass/Vol] 11.0 mg/dL Normal 7.0-18.0 [facility] Comment on above: Performed By: #### PAWAN CLIFTONRO #### [facility] [address] [place] [address] Dr. Lety Nguyen Urea nitrogen/Creatinine [Mass ratio] 13.6 mg/mg Normal [facility] Comment on above: Performed By: #### PAWAN CLIFTONRO #### [facility] [address] [place] [address] Dr. Lety Nguyen URINE MICROSCOPIC ONLYon BACTERIA TRACE Abnormal NONE SEEN [facility] Comment on above: Performed By: #### U MICRO, DRUGRPD, PREGU, ERUR #### [facility] [address] [place] [address] Dr. Lety Nguyen Bacteria identified Cx Nom (U) NOT INDICATED Normal [facility] Comment on above: Performed By: #### U MICRO, DRUGRPD, PREGU, ERUR #### [facility] [address] [place] [address] Dr. Lety Nguyen CAST NONE SEEN Normal NONE SEEN [facility] Comment on above: Performed By: #### U MICRO, DRUGRPD, PREGU, ERUR #### [facility] [address] [place] [address] Dr. Lety Nguyen Crystals LM Nom (Urine sed) NONE SEEN Normal NONE SEEN [facility] Comment on above: Performed By: #### U MICRO, DRUGRPD, PREGU, ERUR #### [facility] [address] [place], [place] [address] Dr. Lety Nguyen Epithelial cells LM Ql (Urine sed) RARE Normal NONE SEEN /RARE [facility] Comment on above: Performed By: #### U MICRO, DRUGRPD, PREGU, ERUR #### [facility] [address] [place], [place] [address] Dr. eLty Nguyen MUCOUS NONE SEEN Normal NONE SEEN [facility] Comment on above: Performed By: #### U MICRO, DRUGRPD, PREGU, ERUR #### [facility] [address] [place], [place] [address] Dr. Lety Nguyen RBC NONE SEEN Abnormal 0-2 [facility] Comment on above: Performed By: #### U MICRO, DRUGRPD, PREGU, ERUR #### [facility] [address] [place], [place] [address] Dr. Lety Nguyen WBC NONE SEEN Normal NONE SEEN [facility] Comment on above: Performed By: #### U MICRO, DRUGRPD, PREGU, ERUR #### [facility] [address] [place], [place] [address] Dr. Lety Nguyen Aspartate aminotransferase [ Enzymatic activity/volume] in Serum or PlasmaOrdered By: Shorty Marinelli on 05-22-2022 AST [Catalytic activity/Vol] 24 U/L 10-42 [facility] Automated erythrocytes count in urine sediment (number/area)Ordered By: Shorty Marinelli on 05-22-2022 RBC Auto (Urine sed) [#/Area] 3-4 [HPF] 0-4 [facility] Automated leukocytes count i n urine sediment (number/area)Ordered By: Shorty Marinelli on 05-22-2022 WBC Auto (Urine sed) [#/Area] None seen [HPF] 0-4 [facility] Basophils Auto (Bld) [#/Vol] Ordered By: Shorty Marinelli on 05-22-2022 Basophils (Bld) [#/Vol] 0.1 10*3/uL 0.0-0.2 [facility] Basophils/100 WBC Auto (Bld) Ordered By: Shorty Marinelli on 02-21-2023 Basophils/100 WBC (Bld) 0.7 % . [facility] Bilirubin Test strip Ql (U)O rdered By: Shorty Marinelli on 05-22-2022 Bilirubin Ql (U) Negative Negative [facility] Body fluid albumin measureme nt (mass/volume)Ordered By: Shorty Marinelli on 05-22-2022 Albumin (Body fld) [Mass/Vol] 4.0 g/dL 3.2-5.5 [facility] Color Auto (U)Ordered By: Mayra Marinelli on 05-22-2022 Color (U) Yellow Yellow [facility] Eosinophils Auto (Bld) [#/Vo l]Ordered By: Shorty Marinelli on 05-22-2022 Eosinophils (Bld) [#/Vol] 0.3 10*3/uL 0.0-0.45 [facility] Eosinophils/100 WBC Auto (Bl d)Ordered By: Shorty Marinelli on 05-22-2022 Eosinophils/100 WBC (Bld) 3.5 % . [facility] Erythrocyte distribution wid th Auto (RBC) [Ratio]Ordered By: Shorty Marinelli on 05-22-2022 Erythrocyte distribution width (RBC) [Ratio] 19.3 % 11.9-15.3 [facility] Estimated glomerular filtrat ion rate (GFR) non- AmericanOrdered By: Shorty Marinelli on 05-22-2022 GFR/1.73 sq M.predicted among non-blacks MDRD (S/P/Bld) [Vol rate/Area] > 60 mL/Min [facility] Globulin Calc (S) [Mass/Vol] Ordered By: Shorty Marinelli on 05-22-2022 Globulin (S) [Mass/Vol] 3.0 g/dL [facility] HCG ( test) IA.rapi d Ql (U)Ordered By: Shorty Marinelli on 05-22-2022 HCG ( test) Ql (U) Negative [facility] Hematocrit Auto (Bld) [Volum e fraction]Ordered By: Shorty Marinelli on 05-22-2022 Hematocrit (Bld) [Volume fraction] 37.0 % 34.0-46.4 [facility] Hemoglobin [Mass/volume] in BloodOrdered By: Shorty Marinelli on 05-22-2022 Hemoglobin (Bld) [Mass/Vol] 12.3 g/dL 11.8-15.4 [facility] Ketones Auto test strip (U) [Mass/Vol]Ordered By: Shorty Marinelli on 05-22-2022 Ketones (U) [Mass/Vol] Negative Negative [facility] Leukocytes [#/volume] correc jacki for nucleated erythrocytes in Blood by Automated counOrdered By: Shorty Marinelli on 05-22-2022 WBC corrected for nucl RBC Auto (Bld) [#/Vol] 8.7 10*3/uL 3.8-11.6 [facility] Lymphocytes Auto (Bld) [#/Vo l]Ordered By: Shorty Marinelli on 05-22-2022 Lymphocytes (Bld) [#/Vol] 2.7 10*3/uL 1.00-4.8 [facility] Lymphocytes/100 WBC Auto (Bl d)Ordered By: Shorty Marinelli on 05-22-2022 Lymphocytes/100 WBC (Bld) 31.7 % . [facility] MCH Auto (RBC) [Entitic mass ]Ordered By: Shorty Marinelli on 05-22-2022 MCH (RBC) [Entitic mass] 26.8 pg 24.7-34.3 [facility] MCHC Auto (RBC) [Mass/Vol]Or dered By: Shorty Marinelli on 05-22-2022 MCHC (RBC) [Mass/Vol] 33.1 g/dL 32.0-35.0 [facility] MCV Auto (RBC) [Entitic vol] Ordered By: Shorty Marinelli on 05-22-2022 MCV (RBC) [Entitic vol] 80.8 fL 80-100 [facility] Monocyte distribution width [Entitic volume] in Blood by AutomatedOrdered By: Shorty Marinelli on 05-22-2022 Monocyte distribution width Auto (Bld) [Entitic vol] 17.63 % 0.00-20.00 [facility] Monocytes Auto (Bld) [#/Vol] Ordered By: Shorty Marinelli on 05-22-2022 Monocytes (Bld) [#/Vol] 0.6 10*3/uL 0.0-0.8 [facility] Monocytes/100 WBC Auto (Bld) Ordered By: Shorty Marinelli on 05-22-2022 Monocytes/100 WBC (Bld) 7.1 % . [facility] Neutrophils Auto (Bld) [#/Vo l]Ordered By: Shorty Marinelli on 05-22-2022 Neutrophils (Bld) [#/Vol] 4.9 10*3/uL 1.8-7.7 [facility] Neutrophils/100 WBC Auto (Bl d)Ordered By: Shorty Marinelli on 05-22-2022 Neutrophils/100 WBC (Bld) 57.0 % . [facility] Nitrite Test strip Ql (U)Ord ered By: Shorty Marinelli on 05-22-2022 Nitrite Ql (U) Negative Negative [facility] No Panel InformationOrdered By: Shorty Marinelli on 05-22-2022 > 60 mL/Min [facility] 47.0 U/L 22-51 [facility] 111.21 [facility] None seen [LPF] 0-8 [facility] Nucleated erythrocytes [Pres ence] in Blood by Automated countOrdered By: Shorty Marinelli on 05-22-2022 Nucleated RBC Auto Ql (Bld) 0.2 /100{WBC} 0-0.5 [facility] Platelet mean volume Auto (B ld) [Entitic vol]Ordered By: Shorty Marinelli on 05-22-2022 Platelet mean volume (Bld) [Entitic vol] 7.8 fL 6.3-10.7 [facility] Platelets Auto (Bld) [#/Vol] Ordered By: Shorty Marinelli on 05-22-2022 Platelets (Bld) [#/Vol] 403 10*3/uL 150-450 [facility] Protein Auto test strip (U) [Mass/Vol]Ordered By: Shorty Marinelli on 05-22-2022 Protein (U) [Mass/Vol] Negative Negative [facility] Protein [Mass/volume] in Ser um or PlasmaOrdered By: Shorty Marinelli on 05-22-2022 Protein [Mass/Vol] 7.0 g/dL 6.1-7.9 [facility] RBC Auto (Bld) [#/Vol]Ordere d By: Shorty Marinelli on 05-22-2022 RBC (Bld) [#/Vol] 4.58 10*6/uL 3.60-5.00 [facility] Serum or plasma alanine ocampo otransferase measurement without P-5'-P (enzymatic activiOrdered By: Shorty Marinelli on 05-22-2022 ALT No additional P-5'-P [Catalytic activity/Vol] 22 U/L 10-60 [facility] Serum or plasma albumin/glob ulin mass ratioOrdered By: Shorty Marinelli on 05-22-2022 Albumin/Globulin [Mass ratio] 1.3 {ratio} [facility] Serum or plasma alkaline álavro sphatase measurement (enzymatic activity/volume)Ordered By: Shorty Marinelli on 05-22-2022 ALP [Catalytic activity/Vol] 68 U/L 32-92 [facility] Serum or plasma anion gap de terminationOrdered By: Shorty Marinelli on 05-22-2022 Anion gap [Moles/Vol] 16.3 mmol/L 6.0-15.0 [facility] Serum or plasma calcium pedro urement (mass/volume)Ordered By: Shorty Marinelli on 05-22-2022 Calcium [Mass/Vol] 9.5 mg/dL 8.2-10.2 [facility] Serum or plasma chloride caity surement (moles/volume)Ordered By: Shorty Marinelli on 05-22-2022 Chloride [Moles/Vol] 102 mmol/L 95-114 [facility] Serum or plasma creatinine m easurement with calculation of estimated glomerular filtrOrdered By: Shorty Marinelli on 05-22-2022 Creatinine and Glomerular filtration rate.predicted panel (S/P/Bld) 0.66 mg/dL 0.44-1.03 [facility] Serum or plasma glucose pedro urement (mass/volume)Ordered By: Shorty Marinelli on 05-22-2022 Glucose [Mass/Vol] 97 mg/dL 70-100 [facility] Serum or plasma potassium me asurement (moles/volume)Ordered By: Shorty Marinelli on 05-22-2022 Potassium [Moles/Vol] 4.3 mmol/L 3.5-5.1 [facility] Serum or plasma sodium measu rement (moles/volume)Ordered By: Shorty Marinelli on 05-22-2022 Sodium [Moles/Vol] 138 mmol/L 136-146 [facility] Serum or plasma total biliru bin measurement (mass/volume)Ordered By: Shorty Marinelli on 05-22-2022 Bilirubin [Mass/Vol] 0.3 mg/dL 0.3-1.2 [facility] Serum or plasma total carbon dioxide measurement (moles/volume)Ordered By: Shorty Marinelli on 05-22-2022 CO2 [Moles/Vol] 24.0 mmol/L 22.0-30.0 [facility] Serum or plasma urea nitroge n measurement (mass/volume)Ordered By: Shorty Marinelli on 05-22-2022 Urea nitrogen [Mass/Vol] 9 mg/dL 9 [facility] Specific gravity Auto test s trip (U) [Rel density]Ordered By: Shorty Marinelli on 05-22-2022 Specific gravity (U) [Rel density] 1.008 1.001-1.030 [facility] Squamous epithelial cells de tection in urine sediment by light microscopyOrdered By: Shorty Marinelli on 05-22-2022 Epithelial cells.squamous LM Ql (Urine sed) 0-1 [HPF] 0-2 [facility] Urine bacteria detection by automated methodOrdered By: Shorty Marinelli on 05-22-2022 Bacteria Auto Ql (U) None seen None Seen [facility] Urine clarity by refractomet ry automatedOrdered By: Shorty Marinelli on 05-22-2022 Clarity Refractometry automated (U) Clear Clear [facility] Urine glucose measurement by automated test strip (mass/volume)Ordered By: Shorty Marinelli on 05-22-2022 Glucose Auto test strip (U) [Mass/Vol] Normal mg/dL Normal [facility] Urine hemoglobin detection b y automated test stripOrdered By: Shorty Marinelli on 05-22-2022 Hemoglobin Auto test strip Ql (U) Trace Negative [facility] Urine leukocyte esterase det ection by automated test stripOrdered By: Shorty Marinelli on 05-22-2022 Leukocyte esterase Auto test strip Ql (U) Negative Negative [facility] Urobilinogen Auto test strip (U) [Mass/Vol]Ordered By: Shorty Marinelli on 05-22-2022 Urobilinogen (U) [Mass/Vol] Normal mg/dL Normal [facility] WBC Auto (Bld) [#/Vol]Ordere d By: Shorty Marinelli on 05-22-2022 WBC (Bld) [#/Vol] 8.7 10*3/uL 3.8-11.6 [facility] pH Auto test strip (U)Ordere d By: Shorty Marinelli on 05-22-2022 pH (U) 7.0 [pH] 5.0-9.0 [facility] Albumin [Mass/volume] in Ser um or PlasmaOrdered By: Rebecca Navas on 05-14-2022 Albumin [Mass/Vol] 3.7 g/dL 3.2-5.5 [facility] Basophils Auto (Bld) [#/Vol] Ordered By: Rebecca Navas on 05-14-2022 Basophils (Bld) [#/Vol] 0.0 10*3/uL 0.0-0.2 [facility] Basophils/100 WBC Auto (Bld) Ordered By: Rebecca Navas on 05-14-2022 Basophils/100 WBC (Bld) 0.3 % . [facility] Cholesterol [Mass/volume] in Serum or PlasmaOrdered By: Rebecca Navas on 05-14-2022 Cholesterol [Mass/Vol] 174 mg/dL 140-200 [facility] Cholesterol in LDL Calc [Mas s/Vol]Ordered By: Rebecca Navas on 05-14-2022 Cholesterol in LDL [Mass/Vol] 96 mg/dL 0-100 [facility] Cholesterol in VLDL Calc [Ma ss/Vol]Ordered By: Rebecca Navas on 05-14-2022 Cholesterol in VLDL [Mass/Vol] 37 mg/dL [facility] Eosinophils Auto (Bld) [#/Vo l]Ordered By: Rebecca Navas on 05-14-2022 Eosinophils (Bld) [#/Vol] 0.3 10*3/uL 0.0-0.45 [facility] Eosinophils/100 WBC Auto (Bl d)Ordered By: Rebecca Navas on 05-14-2022 Eosinophils/100 WBC (Bld) 3.2 % . [facility] Erythrocyte distribution wid th Auto (RBC) [Ratio]Ordered By: Rebecca Navas on 05-14-2022 Erythrocyte distribution width (RBC) [Ratio] 18.1 % 11.9-15.3 [facility] Estimated glomerular filtrat ion rate (GFR) non- AmericanOrdered By: Rebecca Navas on 05-14-2022 GFR/1.73 sq M.predicted among non-blacks MDRD (S/P/Bld) [Vol rate/Area] > 60 mL/Min [facility] Globulin Calc (S) [Mass/Vol] Ordered By: Rebecca Navas on 05-14-2022 Globulin (S) [Mass/Vol] 2.9 g/dL [facility] Hematocrit Auto (Bld) [Volum e fraction]Ordered By: Rebecca Navas on 05-14-2022 Hematocrit (Bld) [Volume fraction] 36.3 % 34.0-46.4 [facility] Hemoglobin [Mass/volume] in BloodOrdered By: Rebecca Navas on 05-14-2022 Hemoglobin (Bld) [Mass/Vol] 11.7 g/dL 11.8-15.4 [facility] Leukocytes [#/volume] correc jacki for nucleated erythrocytes in Blood by Automated counOrdered By: Rebecca Navas on 05-14-2022 WBC corrected for nucl RBC Auto (Bld) [#/Vol] 7.8 10*3/uL 3.8-11.6 [facility] Lymphocytes Auto (Bld) [#/Vo l]Ordered By: Rebecca Navas on 05-14-2022 Lymphocytes (Bld) [#/Vol] 1.9 10*3/uL 1.00-4.8 [facility] Lymphocytes/100 WBC Auto (Bl d)Ordered By: Rebecca Navas on 05-14-2022 Lymphocytes/100 WBC (Bld) 24.2 % . [facility] MCH Auto (RBC) [Entitic mass ]Ordered By: Rebecca Navas on 05-14-2022 MCH (RBC) [Entitic mass] 25.5 pg 24.7-34.3 [facility] MCHC Auto (RBC) [Mass/Vol]Or dered By: Rebecca Navas on 05-14-2022 MCHC (RBC) [Mass/Vol] 32.1 g/dL 32.0-35.0 [facility] MCV Auto (RBC) [Entitic vol] Ordered By: Rebecca Navas on 05-14-2022 MCV (RBC) [Entitic vol] 79.4 fL 80-100 [facility] Monocytes Auto (Bld) [#/Vol] Ordered By: Rebecca Navas on 05-14-2022 Monocytes (Bld) [#/Vol] 0.6 10*3/uL 0.0-0.8 [facility] Monocytes/100 WBC Auto (Bld) Ordered By: Rebecca Navas on 05-14-2022 Monocytes/100 WBC (Bld) 7.8 % . [facility] Neutrophils Auto (Bld) [#/Vo l]Ordered By: Rebecca Navas on 05-14-2022 Neutrophils (Bld) [#/Vol] 5.0 10*3/uL 1.8-7.7 [facility] Neutrophils/100 WBC Auto (Bl d)Ordered By: Rebecca Navas on 05-14-2022 Neutrophils/100 WBC (Bld) 64.5 % . [facility] No Panel InformationOrdered By: Rebecca Navas on 05-14-2022 > 60 mL/Min [facility] 1.7 mg/dL 1.6-2.6 [facility] 505 pg/mL 180-914 [facility] N/A [facility] Nucleated erythrocytes [Pres ence] in Blood by Automated countOrdered By: Rebecca Navas on 05-14-2022 Nucleated RBC Auto Ql (Bld) 0.0 /100{WBC} 0-0.5 [facility] Platelet mean volume Auto (B ld) [Entitic vol]Ordered By: Rebecca Navas on 05-14-2022 Platelet mean volume (Bld) [Entitic vol] 8.3 fL 6.3-10.7 [facility] Platelets Auto (Bld) [#/Vol] Ordered By: Rebecca Navas on 05-14-2022 Platelets (Bld) [#/Vol] 373 10*3/uL 150-450 [facility] Protein [Mass/volume] in Ser um or PlasmaOrdered By: Rebecca Navas on 05-14-2022 Protein [Mass/Vol] 6.6 g/dL 6.1-7.9 [facility] RBC Auto (Bld) [#/Vol]Ordere d By: Rebecca Navas on 05-14-2022 RBC (Bld) [#/Vol] 4.58 10*6/uL 3.60-5.00 [facility] Serum or plasma alanine ocampo otransferase measurement without P-5'-P (enzymatic activiOrdered By: Rebecca Navas on 05-14-2022 ALT No additional P-5'-P [Catalytic activity/Vol] 19 U/L 10-60 [facility] Serum or plasma albumin/glob ulin mass ratioOrdered By: Rebecca Navas on 05-14-2022 Albumin/Globulin [Mass ratio] 1.3 {ratio} [facility] Serum or plasma alkaline álvaro sphatase measurement (enzymatic activity/volume)Ordered By: Rebecca Navas on 05-14-2022 ALP [Catalytic activity/Vol] 73 U/L 32-92 [facility] Serum or plasma anion gap de terminationOrdered By: Rebecca Navas on 05-14-2022 Anion gap [Moles/Vol] 12.3 mmol/L 6.0-15.0 [facility] Serum or plasma aspartate am inotransferase measurement (enzymatic activity/volume)Ordered By: Rebecca Navas on 05-14-2022 AST [Catalytic activity/Vol] 17 U/L 10-42 [facility] Serum or plasma calcium pedro urement (mass/volume)Ordered By: Rebecca Navas on 05-14-2022 Calcium [Mass/Vol] 9.6 mg/dL 8.2-10.2 [facility] Serum or plasma chloride caity surement (moles/volume)Ordered By: Rebecca Navas on 05-14-2022 Chloride [Moles/Vol] 103 mmol/L 95-114 [facility] Serum or plasma creatinine m easurement with calculation of estimated glomerular filtrOrdered By: Rebecca Navas on 05-14-2022 Creatinine and Glomerular filtration rate.predicted panel (S/P/Bld) 0.60 mg/dL 0.44-1.03 [facility] Serum or plasma glucose pedro urement (mass/volume)Ordered By: Rebecca Navas on 05-14-2022 Glucose [Mass/Vol] 93 mg/dL 70-100 [facility] Serum or plasma high density lipoprotein (HDL) cholesterol measurementOrdered By: Rebecca Navas on 05-14-2022 Cholesterol in HDL [Mass/Vol] 41 mg/dL 35-85 [facility] Serum or plasma potassium me asurement (moles/volume)Ordered By: Rebecca Navas on 05-14-2022 Potassium [Moles/Vol] 4.3 mmol/L 3.5-5.1 [facility] Serum or plasma sodium measu rement (moles/volume)Ordered By: Rebecca Navas on 05-14-2022 Sodium [Moles/Vol] 137 mmol/L 136-146 [facility] Serum or plasma total biliru bin measurement (mass/volume)Ordered By: Rebecca Navas on 05-14-2022 Bilirubin [Mass/Vol] 0.4 mg/dL 0.3-1.2 [facility] Serum or plasma total carbon dioxide measurement (moles/volume)Ordered By: Rebecca Navas on 05-14-2022 CO2 [Moles/Vol] 26.0 mmol/L 22.0-30.0 [facility] Serum or plasma total choles terol/high density lipoprotein (HDL) cholesterol mass ratOrdered By: Rebecca Navas on 05-14-2022 Cholesterol.total/Choles terol in HDL [Mass ratio] 4.2 {ratio} <5.0 [facility] Serum or plasma urea nitroge n measurement (mass/volume)Ordered By: Rebecca Navas on 05-14-2022 Urea nitrogen [Mass/Vol] 7 mg/dL 9-23 [facility] TSH DL <= 0.005 mIU/L QnOrde red By: Rebecca Navas on 05-14-2022 TSH Qn 0.92 m[IU]/L 0.45-5.33 [facility] Triglyceride [Mass/volume] i n Serum or PlasmaOrdered By: Rebecca Navas on 05-14-2022 Triglyceride [Mass/Vol] 186 mg/dL 35-149 [facility] WBC Auto (Bld) [#/Vol]Ordere d By: Rebecca Navas on 05-14-2022 WBC (Bld) [#/Vol] 7.8 10*3/uL 3.8-11.6 [facility] Activated partial thrombopla stin time (aPTT) in platelet poor plasma by coagulation aOrdered By: Denver Hess on 04-29-2022 aPTT Coag (PPP) [Time] 22.6 s 25.1-36.5 [facility] Basophils Auto (Bld) [#/Vol] Ordered By: Denver Hess on 04-29-2022 Basophils (Bld) [#/Vol] 0.1 10*3/uL 0.0-0.2 [facility] Basophils/100 WBC Auto (Bld) Ordered By: Denver Hess on 04-29-2022 Basophils/100 WBC (Bld) 0.7 % . [facility] Creatine kinase [Enzymatic a ctivity/volume] in Serum or PlasmaOrdered By: Denver Hess on 04-29-2022 CK [Catalytic activity/Vol] 55 U/L 22-269 [facility] Eosinophils Auto (Bld) [#/Vo l]Ordered By: Denver Hess on 04-29-2022 Eosinophils (Bld) [#/Vol] 0.2 10*3/uL 0.0-0.45 [facility] Eosinophils/100 WBC Auto (Bl d)Ordered By: Denver Hess on 04-29-2022 Eosinophils/100 WBC (Bld) 1.9 % . [facility] Erythrocyte distribution wid th Auto (RBC) [Ratio]Ordered By: Denver Hess on 04-29-2022 Erythrocyte distribution width (RBC) [Ratio] 17.1 % 11.9-15.3 [facility] Estimated glomerular filtrat ion rate (GFR) non- AmericanOrdered By: Denver Hess on 04-29-2022 GFR/1.73 sq M.predicted among non-blacks MDRD (S/P/Bld) [Vol rate/Area] > 60 mL/Min [facility] Hematocrit Auto (Bld) [Volum e fraction]Ordered By: Denver Hess on 04-29-2022 Hematocrit (Bld) [Volume fraction] 34.8 % 34.0-46.4 [facility] Hemoglobin [Mass/volume] in BloodOrdered By: Denver Hess on 04-29-2022 Hemoglobin (Bld) [Mass/Vol] 11.1 g/dL 11.8-15.4 [facility] Leukocytes [#/volume] correc jacki for nucleated erythrocytes in Blood by Automated counOrdered By: Denver Hess on 04-29-2022 WBC corrected for nucl RBC Auto (Bld) [#/Vol] 11.8 10*3/uL 3.8-11.6 [facility] Lymphocytes Auto (Bld) [#/Vo l]Ordered By: Denver Hess on 04-29-2022 Lymphocytes (Bld) [#/Vol] 4.4 10*3/uL 1.00-4.8 [facility] Lymphocytes/100 WBC Auto (Bl d)Ordered By: Denver Hess on 04-29-2022 Lymphocytes/100 WBC (Bld) 37.2 % . [facility] MCH Auto (RBC) [Entitic mass ]Ordered By: Denver Hess on 04-29-2022 MCH (RBC) [Entitic mass] 25.2 pg 24.7-34.3 [facility] MCHC Auto (RBC) [Mass/Vol]Or dered By: Denver Hess on 04-29-2022 MCHC (RBC) [Mass/Vol] 32.0 g/dL 32.0-35.0 [facility] MCV Auto (RBC) [Entitic vol] Ordered By: Denver Hess on 04-29-2022 MCV (RBC) [Entitic vol] 78.8 fL 80-100 [facility] Monocyte distribution width [Entitic volume] in Blood by AutomatedOrdered By: Denver Hess on 04-29-2022 Monocyte distribution width Auto (Bld) [Entitic vol] 21.42 % 0.00-20.00 [facility] Monocytes Auto (Bld) [#/Vol] Ordered By: Denver Hess on 04-29-2022 Monocytes (Bld) [#/Vol] 0.8 10*3/uL 0.0-0.8 [facility] Monocytes/100 WBC Auto (Bld) Ordered By: Denver Hess on 04-29-2022 Monocytes/100 WBC (Bld) 7.1 % . [facility] Neutrophils Auto (Bld) [#/Vo l]Ordered By: Denver Hess on 04-29-2022 Neutrophils (Bld) [#/Vol] 6.3 10*3/uL 1.8-7.7 [facility] Neutrophils/100 WBC Auto (Bl d)Ordered By: Denver Hess on 04-29-2022 Neutrophils/100 WBC (Bld) 53.1 % . [facility] No Panel InformationOrdered By: Denver Hess on 04-29-2022 10.6 s 9.0-12.9 [facility] > 60 mL/Min [facility] 97.0 pg/mL 5-100 [facility] 110.72 [facility] Nucleated erythrocytes [Pres ence] in Blood by Automated countOrdered By: Denver Hess on 04-29-2022 Nucleated RBC Auto Ql (Bld) 0.1 /100{WBC} 0-0.5 [facility] Platelet mean volume Auto (B ld) [Entitic vol]Ordered By: Denver Hess on 04-29-2022 Platelet mean volume (Bld) [Entitic vol] 8.1 fL 6.3-10.7 [facility] Platelet poor plasma interna tional normalized ratio (INR) by coagulation assay (relatOrdered By: Denver Hess on 04-29-2022 INR Coag (PPP) [Relative time] 0.9 {INR} [facility] Platelets Auto (Bld) [#/Vol] Ordered By: Denver Hess on 04-29-2022 Platelets (Bld) [#/Vol] 424 10*3/uL 150-450 [facility] RBC Auto (Bld) [#/Vol]Ordere d By: Denver Hess on 04-29-2022 RBC (Bld) [#/Vol] 4.42 10*6/uL 3.60-5.00 [facility] Serum or plasma anion gap de terminationOrdered By: Denver Hess on 04-29-2022 Anion gap [Moles/Vol] 12.8 mmol/L 6.0-15.0 [facility] Serum or plasma calcium pedro urement (mass/volume)Ordered By: Denver Hess on 04-29-2022 Calcium [Mass/Vol] 8.8 mg/dL 8.2-10.2 [facility] Serum or plasma chloride caity surement (moles/volume)Ordered By: Denver Hess on 04-29-2022 Chloride [Moles/Vol] 104 mmol/L 95-114 [facility] Serum or plasma creatine kin ase MB (CKMB)/total creatine kinase (CK) ratio by calculaOrdered By: Denver Hess on 04-29-2022 CK.MB Calc [Catalytic fraction] 3.0 % 0.00-2.50 [facility] Serum or plasma creatine kin ase MB measurement (mass/volume)Ordered By: Denver Hess on 04-29-2022 CK.MB [Mass/Vol] 1.7 ng/mL 0.6-6.3 [facility] Serum or plasma creatinine m easurement with calculation of estimated glomerular filtrOrdered By: Denver Hess on 04-29-2022 Creatinine and Glomerular filtration rate.predicted panel (S/P/Bld) 0.66 mg/dL 0.44-1.03 [facility] Serum or plasma glucose pedro urement (mass/volume)Ordered By: Denver Hess on 04-29-2022 Glucose [Mass/Vol] 92 mg/dL 70-100 [facility] Serum or plasma potassium me asurement (moles/volume)Ordered By: Denver Hess on 04-29-2022 Potassium [Moles/Vol] 3.3 mmol/L 3.5-5.1 [facility] Serum or plasma sodium measu rement (moles/volume)Ordered By: Denver Hess on 04-29-2022 Sodium [Moles/Vol] 139 mmol/L 136-146 [facility] Serum or plasma total carbon dioxide measurement (moles/volume)Ordered By: Denver Hess on 04-29-2022 CO2 [Moles/Vol] 25.5 mmol/L 22.0-30.0 [facility] Serum or plasma urea nitroge n measurement (mass/volume)Ordered By: Denver Hess on 04-29-2022 Urea nitrogen [Mass/Vol] 8 mg/dL 9-23 [facility] Troponin I.cardiac [Mass/vol ume] in Serum or Plasma by High sensitivity methodOrdered By: Denver Hess on 04-29-2022 Troponin I.cardiac High sensitivity method [Mass/Vol] 8 pg/mL 0-15 [facility] WBC Auto (Bld) [#/Vol]Ordere d By: Denver Hess on 04-29-2022 WBC (Bld) [#/Vol] 11.8 10*3/uL 3.8-11.6 [facility] Basophils Auto (Bld) [#/Vol] Ordered By: Severo Aponte on 04-22-2022 Basophils (Bld) [#/Vol] 0.0 10*3/uL 0.0-0.2 [facility] Basophils/100 WBC Auto (Bld) Ordered By: Severo Aponte on 04-22-2022 Basophils/100 WBC (Bld) 0.5 % . [facility] Eosinophils Auto (Bld) [#/Vo l]Ordered By: Severo Aponte on 04-22-2022 Eosinophils (Bld) [#/Vol] 0.2 10*3/uL 0.0-0.45 [facility] Eosinophils/100 WBC Auto (Bl d)Ordered By: Severo Aponte on 04-22-2022 Eosinophils/100 WBC (Bld) 1.9 % . [facility] Erythrocyte distribution wid th Auto (RBC) [Ratio]Ordered By: Severo Aponte on 04-22-2022 Erythrocyte distribution width (RBC) [Ratio] 17.2 % 11.9-15.3 [facility] Estimated glomerular filtrat ion rate (GFR) non- AmericanOrdered By: Severo Aponte on 04-22-2022 GFR/1.73 sq M.predicted among non-blacks MDRD (S/P/Bld) [Vol rate/Area] > 60 mL/Min [facility] Hematocrit Auto (Bld) [Volum e fraction]Ordered By: Severo Aponte on 04-22-2022 Hematocrit (Bld) [Volume fraction] 34.6 % 34.0-46.4 [facility] Hemoglobin [Mass/volume] in BloodOrdered By: Severo Aponte on 04-22-2022 Hemoglobin (Bld) [Mass/Vol] 11.3 g/dL 11.8-15.4 [facility] Leukocytes [#/volume] correc jacki for nucleated erythrocytes in Blood by Automated counOrdered By: Severo Aponte on 04-22-2022 WBC corrected for nucl RBC Auto (Bld) [#/Vol] 8.7 10*3/uL 3.8-11.6 [facility] Lymphocytes Auto (Bld) [#/Vo l]Ordered By: Severo Aponte on 04-22-2022 Lymphocytes (Bld) [#/Vol] 2.3 10*3/uL 1.00-4.8 [facility] Lymphocytes/100 WBC Auto (Bl d)Ordered By: Severo Aponte on 04-22-2022 Lymphocytes/100 WBC (Bld) 26.2 % . [facility] MCH Auto (RBC) [Entitic mass ]Ordered By: Severo Aponte on 04-22-2022 MCH (RBC) [Entitic mass] 25.6 pg 24.7-34.3 [facility] MCHC Auto (RBC) [Mass/Vol]Or dered By: Severo Aponte on 04-22-2022 MCHC (RBC) [Mass/Vol] 32.7 g/dL 32.0-35.0 [facility] MCV Auto (RBC) [Entitic vol] Ordered By: Severo Aponte on 04-22-2022 MCV (RBC) [Entitic vol] 78.4 fL 80-100 [facility] Monocytes Auto (Bld) [#/Vol] Ordered By: Severo Aponte on 04-22-2022 Monocytes (Bld) [#/Vol] 0.6 10*3/uL 0.0-0.8 [facility] Monocytes/100 WBC Auto (Bld) Ordered By: Severo Aponte on 04-22-2022 Monocytes/100 WBC (Bld) 7.0 % . [facility] Neutrophils Auto (Bld) [#/Vo l]Ordered By: Severo Aponte on 04-22-2022 Neutrophils (Bld) [#/Vol] 5.6 10*3/uL 1.8-7.7 [facility] Neutrophils/100 WBC Auto (Bl d)Ordered By: Severo Aponte on 04-22-2022 Neutrophils/100 WBC (Bld) 64.4 % . [facility] No Panel InformationOrdered By: Severo Aponte on 04-22-2022 > 60 mL/Min [facility] 1.8 mg/dL 1.6-2.6 [facility] 104.27 [facility] Nucleated erythrocytes [Pres ence] in Blood by Automated countOrdered By: Severo Aponte on 04-22-2022 Nucleated RBC Auto Ql (Bld) 0.1 /100{WBC} 0-0.5 [facility] Platelet mean volume Auto (B ld) [Entitic vol]Ordered By: Severo Aponte on 04-22-2022 Platelet mean volume (Bld) [Entitic vol] 7.6 fL 6.3-10.7 [facility] Platelets Auto (Bld) [#/Vol] Ordered By: Severo Aponte on 04-22-2022 Platelets (Bld) [#/Vol] 411 10*3/uL 150-450 [facility] RBC Auto (Bld) [#/Vol]Ordere d By: Severo Aponte on 04-22-2022 RBC (Bld) [#/Vol] 4.41 10*6/uL 3.60-5.00 [facility] Serum or plasma anion gap de terminationOrdered By: Severo Aponte on 04-22-2022 Anion gap [Moles/Vol] 12.2 mmol/L 6.0-15.0 [facility] Serum or plasma calcium pedro urement (mass/volume)Ordered By: Severo Aponte on 04-22-2022 Calcium [Mass/Vol] 8.9 mg/dL 8.2-10.2 [facility] Serum or plasma chloride caity surement (moles/volume)Ordered By: Severo Aponte on 04-22-2022 Chloride [Moles/Vol] 104 mmol/L 95-114 [facility] Serum or plasma creatinine m easurement with calculation of estimated glomerular filtrOrdered By: Severo Aponte on 04-22-2022 Creatinine and Glomerular filtration rate.predicted panel (S/P/Bld) 0.69 mg/dL 0.44-1.03 [facility] Serum or plasma glucose pedro urement (mass/volume)Ordered By: Severo Aponte on 04-22-2022 Glucose [Mass/Vol] 106 mg/dL 70-100 [facility] Serum or plasma potassium me asurement (moles/volume)Ordered By: Severo Aponte on 04-22-2022 Potassium [Moles/Vol] 3.6 mmol/L 3.5-5.1 [facility] Serum or plasma sodium measu rement (moles/volume)Ordered By: Severo Aponte on 04-22-2022 Sodium [Moles/Vol] 138 mmol/L 136-146 [facility] Serum or plasma total carbon dioxide measurement (moles/volume)Ordered By: Severo Aponte on 04-22-2022 CO2 [Moles/Vol] 25.4 mmol/L 22.0-30.0 [facility] Serum or plasma urea nitroge n measurement (mass/volume)Ordered By: Severo Aponte on 04-22-2022 Urea nitrogen [Mass/Vol] 6 mg/dL 9-23 [facility] WBC Auto (Bld) [#/Vol]Ordere d By: Severo Aponte on 04-22-2022 WBC (Bld) [#/Vol] 8.7 10*3/uL 3.8-11.6 [facility] Amphetamine Screen Ql (U)Ord ered By: Shorty Marinelli on 04-20-2022 Amphetamines Ql (U) Negative Negative [facility] Automated erythrocytes count in urine sediment (number/area)Ordered By: Shorty Marinelli on 04-20-2022 RBC Auto (Urine sed) [#/Area] 3-4 [HPF] 0-4 [facility] Automated leukocytes count i n urine sediment (number/area)Ordered By: Shorty Marinelli on 04-20-2022 WBC Auto (Urine sed) [#/Area] 0-1 [HPF] 0-4 [facility] Barbiturates [Presence] in U rineOrdered By: Shorty Marinelli on 04-20-2022 Barbiturates Ql (U) Negative Negative [facility] Basophils Auto (Bld) [#/Vol] Ordered By: Shorty Marinelli on 04-20-2022 Basophils (Bld) [#/Vol] 0.0 10*3/uL 0.0-0.2 [facility] Basophils/100 WBC Auto (Bld) Ordered By: Shorty Marinelli on 04-20-2022 Basophils/100 WBC (Bld) 0.4 % . [facility] Benzodiazepines [Presence] i n UrineOrdered By: Shorty Marinelli on 04-20-2022 Benzodiazepines Ql (U) Negative [facility] Test strip Ql (U)O rdered By: Shorty Marinelli on 04-20-2022 Bilirubin Ql (U) Negative Negative [facility] Body fluid albumin measureme nt (mass/volume)Ordered By: Shorty Marinelli on 04-20-2022 Albumin (Body fld) [Mass/Vol] 4.2 g/dL 3.2-5.5 [facility] Cannabinoids [Presence] in U rine by Screen methodOrdered By: Shorty Marinelli on 04-20-2022 Cannabinoids Screen Ql (U) Negative Negative [facility] Color Auto (U)Ordered By: Mayra Marinelli on 04-20-2022 Color (U) Yellow Yellow [facility] Eosinophils Auto (Bld) [#/Vo l]Ordered By: Shorty Marinelli on 04-20-2022 Eosinophils (Bld) [#/Vol] 0.2 10*3/uL 0.0-0.45 [facility] Eosinophils/100 WBC Auto (Bl d)Ordered By: Shorty Marinelli on 04-20-2022 Eosinophils/100 WBC (Bld) 2.4 % . [facility] Erythrocyte distribution wid th Auto (RBC) [Ratio]Ordered By: Shorty Marinelli on 04-20-2022 Erythrocyte distribution width (RBC) [Ratio] 16.6 % 11.9-15.3 [facility] Estimated glomerular filtrat ion rate (GFR) non- AmericanOrdered By: Shorty Marinelli on 04-20-2022 GFR/1.73 sq M.predicted among non-blacks MDRD (S/P/Bld) [Vol rate/Area] > 60 mL/Min [facility] Globulin Calc (S) [Mass/Vol] Ordered By: Shorty Marinelli on 04-20-2022 Globulin (S) [Mass/Vol] 3.2 g/dL [facility] HCG ( test) IA.rapi d Ql (U)Ordered By: Shorty Marinelli on 04-20-2022 HCG ( test) Ql (U) Negative [facility] Hematocrit Auto (Bld) [Volum e fraction]Ordered By: Shorty Marinelli on 04-20-2022 Hematocrit (Bld) [Volume fraction] 35.4 % 34.0-46.4 [facility] Hemoglobin [Mass/volume] in BloodOrdered By: Shorty Marinelli on 04-20-2022 Hemoglobin (Bld) [Mass/Vol] 11.3 g/dL 11.8-15.4 [facility] Ketones Auto test strip (U) [Mass/Vol]Ordered By: Shorty Marinelli on 04-20-2022 Ketones (U) [Mass/Vol] Negative [facility] Leukocytes [#/volume] correc jacki for nucleated erythrocytes in Blood by Automated counOrdered By: Shorty Marinelli on 04-20-2022 WBC corrected for nucl RBC Auto (Bld) [#/Vol] 8.8 10*3/uL 3.8-11.6 [facility] Lymphocytes Auto (Bld) [#/Vo l]Ordered By: Shorty Marinelli on 04-20-2022 Lymphocytes (Bld) [#/Vol] 2.7 10*3/uL 1.00-4.8 [facility] Lymphocytes/100 WBC Auto (Bl d)Ordered By: Shorty Marinelli on 04-20-2022 Lymphocytes/100 WBC (Bld) 31.2 % . [facility] MCH Auto (RBC) [Entitic mass ]Ordered By: Shorty Marinelli on 04-20-2022 MCH (RBC) [Entitic mass] 25.2 pg 24.7-34.3 [facility] MCHC Auto (RBC) [Mass/Vol]Or dered By: Shorty Marinelli on 04-20-2022 MCHC (RBC) [Mass/Vol] 32.0 g/dL 32.0-35.0 [facility] MCV Auto (RBC) [Entitic vol] Ordered By: Shorty Marinelli on 04-20-2022 MCV (RBC) [Entitic vol] 78.7 fL 80-100 [facility] Monocyte distribution width [Entitic volume] in Blood by AutomatedOrdered By: Shorty Marinelli on 04-20-2022 Monocyte distribution width Auto (Bld) [Entitic vol] 17.62 % 0.00-20.00 [facility] Monocytes Auto (Bld) [#/Vol] Ordered By: Shorty Marinelli on 04-20-2022 Monocytes (Bld) [#/Vol] 0.5 10*3/uL 0.0-0.8 [facility] Monocytes/100 WBC Auto (Bld) Ordered By: Shorty Marinelli on 04-20-2022 Monocytes/100 WBC (Bld) 6.1 % . [facility] Neutrophils Auto (Bld) [#/Vo l]Ordered By: Shorty Marinelli on 04-20-2022 Neutrophils (Bld) [#/Vol] 5.3 10*3/uL 1.8-7.7 [facility] Neutrophils/100 WBC Auto (Bl d)Ordered By: Shorty Marinelli on 04-20-2022 Neutrophils/100 WBC (Bld) 59.9 % . [facility] Nitrite Test strip Ql (U)Ord ered By: Shorty Marinelli on 04-20-2022 Nitrite Ql (U) Negative Negative [facility] No Panel InformationOrdered By: Shorty Marinelli on 04-20-2022 > 60 mL/Min [facility] N/A [facility] 0-8 [LPF] 0-8 [facility] Negative Negative [facility] Nucleated erythrocytes [Pres ence] in Blood by Automated countOrdered By: Shorty Marinelli on 04-20-2022 Nucleated RBC Auto Ql (Bld) 0.1 /100{WBC} 0-0.5 [facility] Phencyclidine Screen Ql (U)O rdered By: Shorty Marinelli on 04-20-2022 Phencyclidine Ql (U) Negative Negative [facility] Platelet mean volume Auto (B ld) [Entitic vol]Ordered By: Shorty Marinelli on 04-20-2022 Platelet mean volume (Bld) [Entitic vol] 7.9 fL 6.3-10.7 [facility] Platelets Auto (Bld) [#/Vol] Ordered By: Shorty Marinelli on 04-20-2022 Platelets (Bld) [#/Vol] 455 10*3/uL 150-450 [facility] Protein Auto test strip (U) [Mass/Vol]Ordered By: Shorty Marinelli on 04-20-2022 Protein (U) [Mass/Vol] Negative Negative [facility] Protein [Mass/volume] in Ser um or PlasmaOrdered By: Shorty Marinelli on 04-20-2022 Protein [Mass/Vol] 7.4 g/dL 6.1-7.9 [facility] RBC Auto (Bld) [#/Vol]Ordere d By: Shorty Marinelli on 04-20-2022 RBC (Bld) [#/Vol] 4.49 10*6/uL 3.60-5.00 [facility] Serum or plasma alanine ocampo otransferase measurement without P-5'-P (enzymatic activiOrdered By: Shorty Marinelli on 04-20-2022 ALT No additional P-5'-P [Catalytic activity/Vol] 18 U/L 10-60 [facility] Serum or plasma albumin/glob ulin mass ratioOrdered By: Shorty Marinelli on 04-20-2022 Albumin/Globulin [Mass ratio] 1.3 {ratio} [facility] Serum or plasma alkaline álvaro sphatase measurement (enzymatic activity/volume)Ordered By: Shorty Marinelli on 04-20-2022 ALP [Catalytic activity/Vol] 84 U/L 32-92 [facility] Serum or plasma anion gap de terminationOrdered By: Shorty Marinelli on 04-20-2022 Anion gap [Moles/Vol] 12.5 mmol/L 6.0-15.0 [facility] Serum or plasma aspartate am inotransferase measurement (enzymatic activity/volume)Ordered By: Shorty Marinelli on 04-20-2022 AST [Catalytic activity/Vol] 15 U/L 10-42 [facility] Serum or plasma calcium pedro urement (mass/volume)Ordered By: Shorty Marinelli on 04-20-2022 Calcium [Mass/Vol] 9.3 mg/dL 8.2-10.2 [facility] Serum or plasma chloride caity surement (moles/volume)Ordered By: Shorty Marinelli on 04-20-2022 Chloride [Moles/Vol] 102 mmol/L 95-114 [facility] Serum or plasma creatinine m easurement with calculation of estimated glomerular filtrOrdered By: Shorty Marinelli on 04-20-2022 Creatinine and Glomerular filtration rate.predicted panel (S/P/Bld) 0.69 mg/dL 0.44-1.03 [facility] Serum or plasma ethanol pedro urement (mass/volume)Ordered By: Shorty Marinelli on 04-20-2022 Ethanol [Mass/Vol] mg/dL [facility] Ethanol [Mass/Vol] TNP [facility] Serum or plasma glucose pedro urement (mass/volume)Ordered By: Shorty Marinelli on 04-20-2022 Glucose [Mass/Vol] 106 mg/dL 70-100 [facility] Serum or plasma potassium me asurement (moles/volume)Ordered By: Shorty Marinelli on 04-20-2022 Potassium [Moles/Vol] 3.8 mmol/L 3.5-5.1 [facility] Serum or plasma sodium measu rement (moles/volume)Ordered By: Shorty Marinelli on 04-20-2022 Sodium [Moles/Vol] 136 mmol/L 136-146 [facility] Serum or plasma total biliru bin measurement (mass/volume)Ordered By: Shorty Marinelli on 04-20-2022 Bilirubin [Mass/Vol] 0.3 mg/dL 0.3-1.2 [facility] Serum or plasma total carbon dioxide measurement (moles/volume)Ordered By: Shorty Marinelli on 04-20-2022 CO2 [Moles/Vol] 25.3 mmol/L 22.0-30.0 [facility] Serum or plasma urea nitroge n measurement (mass/volume)Ordered By: Shorty Marinelli on 04-20-2022 Urea nitrogen [Mass/Vol] 10 mg/dL 9 [facility] Specific gravity Auto test s trip (U) [Rel density]Ordered By: Shorty Marinelli on 04-20-2022 Specific gravity (U) [Rel density] 1.008 1.001-1.030 [facility] Squamous epithelial cells de tection in urine sediment by light microscopyOrdered By: Shorty Marinelli on 04-20-2022 Epithelial cells.squamous LM Ql (Urine sed) 1-2 [HPF] 0-2 [facility] Urine bacteria detection by automated methodOrdered By: Shorty Marinelli on 04-20-2022 Bacteria Auto Ql (U) None seen None Seen [facility] Urine clarity by refractomet ry automatedOrdered By: Shorty Marinelli on 04-20-2022 Clarity Refractometry automated (U) Clear Clear [facility] Urine cocaine detectionOrder ed By: Shorty Marinelli on 04-20-2022 Cocaine Ql (U) Negative Negative [facility] Urine glucose measurement by automated test strip (mass/volume)Ordered By: Shorty Marinelli on 04-20-2022 Glucose Auto test strip (U) [Mass/Vol] Normal mg/dL Normal [facility] Urine hemoglobin detection b y automated test stripOrdered By: Shorty Marinelli on 04-20-2022 Hemoglobin Auto test strip Ql (U) 1+ Negative [facility] Urine leukocyte esterase det ection by automated test stripOrdered By: Shorty Marinelli on 04-20-2022 Leukocyte esterase Auto test strip Ql (U) Negative Negative [facility] Urobilinogen Auto test strip (U) [Mass/Vol]Ordered By: Shorty Marinelli on 04-20-2022 Urobilinogen (U) [Mass/Vol] Normal mg/dL Normal [facility] WBC Auto (Bld) [#/Vol]Ordere d By: Shorty Marinelli on 04-20-2022 WBC (Bld) [#/Vol] 8.8 10*3/uL 3.8-11.6 [facility] pH Auto test strip (U)Ordere d By: Shorty Marinelli on 04-20-2022 pH (U) 6.0 [pH] 5.0-9.0 [facility] Troponin I.cardiac [Mass/vol ume] in Serum or Plasma by High sensitivity methodOrdered By: Drew Ba on 04-17-2022 Troponin I.cardiac High sensitivity method [Mass/Vol] 5 pg/mL 0-15 [facility] Activated partial thrombopla stin time (aPTT) in platelet poor plasma by coagulation aOrdered By: Drew Ba on 04-16-2022 aPTT Coag (PPP) [Time] 34.7 s 25.1-36.5 [facility] Basophils Auto (Bld) [#/Vol] Ordered By: Drew Ba on 04-16-2022 Basophils (Bld) [#/Vol] 0.1 10*3/uL 0.0-0.2 [facility] Basophils/100 WBC Auto (Bld) Ordered By: Drew Ba on 04-16-2022 Basophils/100 WBC (Bld) 0.6 % . [facility] Eosinophils Auto (Bld) [#/Vo l]Ordered By: Drew Ba on 04-16-2022 Eosinophils (Bld) [#/Vol] 0.2 10*3/uL 0.0-0.45 [facility] Eosinophils/100 WBC Auto (Bl d)Ordered By: Drew Ba on 04-16-2022 Eosinophils/100 WBC (Bld) 2.7 % . [facility] Erythrocyte distribution wid th Auto (RBC) [Ratio]Ordered By: Drew Ba on 04-16-2022 Erythrocyte distribution width (RBC) [Ratio] 16.8 % 11.9-15.3 [facility] Estimated glomerular filtrat ion rate (GFR) non- AmericanOrdered By: Drew Ba on 04-16-2022 GFR/1.73 sq M.predicted among non-blacks MDRD (S/P/Bld) [Vol rate/Area] > 60 mL/Min [facility] Hematocrit Auto (Bld) [Volum e fraction]Ordered By: Drew Ba on 04-16-2022 Hematocrit (Bld) [Volume fraction] 36.4 % 34.0-46.4 [facility] Hemoglobin [Mass/volume] in BloodOrdered By: Drew Ba on 04-16-2022 Hemoglobin (Bld) [Mass/Vol] 11.6 g/dL 11.8-15.4 [facility] Leukocytes [#/volume] correc jacki for nucleated erythrocytes in Blood by Automated counOrdered By: Drew Ba on 04-16-2022 WBC corrected for nucl RBC Auto (Bld) [#/Vol] 9.0 10*3/uL 3.8-11.6 [facility] Lymphocytes Auto (Bld) [#/Vo l]Ordered By: Drew Ba on 04-16-2022 Lymphocytes (Bld) [#/Vol] 3.0 10*3/uL 1.00-4.8 [facility] Lymphocytes/100 WBC Auto (Bl d)Ordered By: Drew Ba on 04-16-2022 Lymphocytes/100 WBC (Bld) 33.7 % . [facility] MCH Auto (RBC) [Entitic mass ]Ordered By: Drew Ba on 04-16-2022 MCH (RBC) [Entitic mass] 25.1 pg 24.7-34.3 [facility] MCHC Auto (RBC) [Mass/Vol]Or dered By: Drew Ba on 04-16-2022 MCHC (RBC) [Mass/Vol] 31.9 g/dL 32.0-35.0 [facility] MCV Auto (RBC) [Entitic vol] Ordered By: Drew Ba on 04-16-2022 MCV (RBC) [Entitic vol] 78.9 fL 80-100 [facility] Monocyte distribution width [Entitic volume] in Blood by AutomatedOrdered By: Drew Ba on 04-16-2022 Monocyte distribution width Auto (Bld) [Entitic vol] 17.92 % 0.00-20.00 [facility] Monocytes Auto (Bld) [#/Vol] Ordered By: Drew Ba on 04-16-2022 Monocytes (Bld) [#/Vol] 0.5 10*3/uL 0.0-0.8 [facility] Monocytes/100 WBC Auto (Bld) Ordered By: Drew Ba on 04-16-2022 Monocytes/100 WBC (Bld) 5.7 % . [facility] Neutrophils Auto (Bld) [#/Vo l]Ordered By: Drew Ba on 04-16-2022 Neutrophils (Bld) [#/Vol] 5.2 10*3/uL 1.8-7.7 [facility] Neutrophils/100 WBC Auto (Bl d)Ordered By: Drew Ba on 04-16-2022 Neutrophils/100 WBC (Bld) 57.3 % . [facility] No Panel InformationOrdered By: Drew Ba on 04-16-2022 12.5 s 9.0-12.9 [facility] > 60 mL/Min [facility] 7.0 pg/mL 5-100 [facility] 101.76 [facility] Nucleated erythrocytes [Pres ence] in Blood by Automated countOrdered By: Drew Ba on 04-16-2022 Nucleated RBC Auto Ql (Bld) 0.2 /100{WBC} 0-0.5 [facility] Platelet mean volume Auto (B ld) [Entitic vol]Ordered By: Drew Ba on 04-16-2022 Platelet mean volume (Bld) [Entitic vol] 7.9 fL 6.3-10.7 [facility] Platelet poor plasma interna tional normalized ratio (INR) by coagulation assay (relatOrdered By: Drew Ba on 04-16-2022 INR Coag (PPP) [Relative time] 1.1 {INR} [facility] Platelets Auto (Bld) [#/Vol] Ordered By: Drew Ba on 04-16-2022 Platelets (Bld) [#/Vol] 481 10*3/uL 150-450 [facility] RBC Auto (Bld) [#/Vol]Ordere d By: Drew Ba on 04-16-2022 RBC (Bld) [#/Vol] 4.62 10*6/uL 3.60-5.00 [facility] Serum or plasma anion gap de terminationOrdered By: Drew Ba on 04-16-2022 Anion gap [Moles/Vol] 13.3 mmol/L 6.0-15.0 [facility] Serum or plasma calcium pedro urement (mass/volume)Ordered By: Drew Ba on 04-16-2022 Calcium [Mass/Vol] 9.4 mg/dL 8.2-10.2 [facility] Serum or plasma chloride caity surement (moles/volume)Ordered By: Drew Ba on 04-16-2022 Chloride [Moles/Vol] 104 mmol/L 95-114 [facility] Serum or plasma creatinine m easurement with calculation of estimated glomerular filtrOrdered By: Drew Ba on 04-16-2022 Creatinine and Glomerular filtration rate.predicted panel (S/P/Bld) 0.71 mg/dL 0.44-1.03 [facility] Serum or plasma glucose pedro urement (mass/volume)Ordered By: Drew Ba on 04-16-2022 Glucose [Mass/Vol] 92 mg/dL 70-100 [facility] Serum or plasma potassium me asurement (moles/volume)Ordered By: Drew Ba on 04-16-2022 Potassium [Moles/Vol] 3.7 mmol/L 3.5-5.1 [facility] Serum or plasma sodium measu rement (moles/volume)Ordered By: Drew Ba on 04-16-2022 Sodium [Moles/Vol] 140 mmol/L 136-146 [facility] Serum or plasma total carbon dioxide measurement (moles/volume)Ordered By: Drew Ba on 04-16-2022 CO2 [Moles/Vol] 26.4 mmol/L 22.0-30.0 [facility] Serum or plasma urea nitroge n measurement (mass/volume)Ordered By: Drew Ba on 04-16-2022 Urea nitrogen [Mass/Vol] 9 mg/dL 9-23 [facility] WBC Auto (Bld) [#/Vol]Ordere d By: Drew Ba on 04-16-2022 WBC (Bld) [#/Vol] 9.0 10*3/uL 3.8-11.6 [facility] Basophils Auto (Bld) [#/Vol] Ordered By: Denver Hess on 04-09-2022 Basophils (Bld) [#/Vol] 0.1 10*3/uL 0.0-0.2 [facility] Basophils/100 WBC Auto (Bld) Ordered By: Denver Hess on 04-09-2022 Basophils/100 WBC (Bld) 1.0 % . [facility] Creatine kinase [Enzymatic a ctivity/volume] in Serum or PlasmaOrdered By: Denver Hess on 04-09-2022 CK [Catalytic activity/Vol] 147 U/L 22-269 [facility] Eosinophils Auto (Bld) [#/Vo l]Ordered By: Denver Hess on 04-09-2022 Eosinophils (Bld) [#/Vol] 0.3 10*3/uL 0.0-0.45 [facility] Eosinophils/100 WBC Auto (Bl d)Ordered By: Denver Hess on 04-09-2022 Eosinophils/100 WBC (Bld) 3.5 % . [facility] Erythrocyte distribution wid th Auto (RBC) [Ratio]Ordered By: Denver Hess on 04-09-2022 Erythrocyte distribution width (RBC) [Ratio] 17.1 % 11.9-15.3 [facility] Estimated glomerular filtrat ion rate (GFR) non- AmericanOrdered By: Denver Hess on 04-09-2022 GFR/1.73 sq M.predicted among non-blacks MDRD (S/P/Bld) [Vol rate/Area] > 60 mL/Min [facility] Hematocrit Auto (Bld) [Volum e fraction]Ordered By: Denver Hess on 04-09-2022 Hematocrit (Bld) [Volume fraction] 35.9 % 34.0-46.4 [facility] Hemoglobin [Mass/volume] in BloodOrdered By: Denver Hess on 04-09-2022 Hemoglobin (Bld) [Mass/Vol] 11.6 g/dL 11.8-15.4 [facility] Leukocytes [#/volume] correc jacki for nucleated erythrocytes in Blood by Automated counOrdered By: Denver Hess on 04-09-2022 WBC corrected for nucl RBC Auto (Bld) [#/Vol] 8.8 10*3/uL 3.8-11.6 [facility] Lymphocytes Auto (Bld) [#/Vo l]Ordered By: Denver Hess on 04-09-2022 Lymphocytes (Bld) [#/Vol] 2.7 10*3/uL 1.00-4.8 [facility] Lymphocytes/100 WBC Auto (Bl d)Ordered By: Denver Hess on 04-09-2022 Lymphocytes/100 WBC (Bld) 30.6 % . [facility] MCH Auto (RBC) [Entitic mass ]Ordered By: Denver Hess on 04-09-2022 MCH (RBC) [Entitic mass] 25.3 pg 24.7-34.3 [facility] MCHC Auto (RBC) [Mass/Vol]Or dered By: Denver Hess on 04-09-2022 MCHC (RBC) [Mass/Vol] 32.2 g/dL 32.0-35.0 [facility] MCV Auto (RBC) [Entitic vol] Ordered By: Denver Hess on 04-09-2022 MCV (RBC) [Entitic vol] 78.4 fL 80-100 [facility] Monocyte distribution width [Entitic volume] in Blood by AutomatedOrdered By: Denver Hess on 04-09-2022 Monocyte distribution width Auto (Bld) [Entitic vol] 17.29 % 0.00-20.00 [facility] Monocytes Auto (Bld) [#/Vol] Ordered By: Denver Hess on 04-09-2022 Monocytes (Bld) [#/Vol] 0.6 10*3/uL 0.0-0.8 [facility] Monocytes/100 WBC Auto (Bld) Ordered By: Denver Hess on 04-09-2022 Monocytes/100 WBC (Bld) 6.6 % . [facility] Neutrophils Auto (Bld) [#/Vo l]Ordered By: Denver Hess on 04-09-2022 Neutrophils (Bld) [#/Vol] 5.1 10*3/uL 1.8-7.7 [facility] Neutrophils/100 WBC Auto (Bl d)Ordered By: Denver Hess on 04-09-2022 Neutrophils/100 WBC (Bld) 58.3 % . [facility] No Panel InformationOrdered By: Denver Hess on 04-09-2022 > 60 mL/Min [facility] 22.0 pg/mL 5-100 [facility] 128.66 [facility] Nucleated erythrocytes [Pres ence] in Blood by Automated countOrdered By: Denver Hess on 04-09-2022 Nucleated RBC Auto Ql (Bld) 0.1 /100{WBC} 0-0.5 [facility] Platelet mean volume Auto (B ld) [Entitic vol]Ordered By: Denver Hess on 04-09-2022 Platelet mean volume (Bld) [Entitic vol] 7.7 fL 6.3-10.7 [facility] Platelets Auto (Bld) [#/Vol] Ordered By: Denver Hess on 04-09-2022 Platelets (Bld) [#/Vol] 466 10*3/uL 150-450 [facility] RBC Auto (Bld) [#/Vol]Ordere d By: Denver Hess on 04-09-2022 RBC (Bld) [#/Vol] 4.58 10*6/uL 3.60-5.00 [facility] Serum or plasma anion gap de terminationOrdered By: Denver Hess on 04-09-2022 Anion gap [Moles/Vol] 14.3 mmol/L 6.0-15.0 [facility] Serum or plasma calcium pedro urement (mass/volume)Ordered By: Denver Hess on 04-09-2022 Calcium [Mass/Vol] 9.2 mg/dL 8.2-10.2 [facility] Serum or plasma chloride caity surement (moles/volume)Ordered By: Denver Hess on 04-09-2022 Chloride [Moles/Vol] 105 mmol/L 95-114 [facility] Serum or plasma creatine kin ase MB (CKMB)/total creatine kinase (CK) ratio by calculaOrdered By: Denver Hess on 04-09-2022 CK.MB Calc [Catalytic fraction] 1.7 % 0.00-2.50 [facility] Serum or plasma creatine kin ase MB measurement (mass/volume)Ordered By: Denver Hess on 04-09-2022 CK.MB [Mass/Vol] 2.6 ng/mL 0.6-6.3 [facility] Serum or plasma creatinine m easurement with calculation of estimated glomerular filtrOrdered By: Denver Hess on 04-09-2022 Creatinine and Glomerular filtration rate.predicted panel (S/P/Bld) 0.57 mg/dL 0.44-1.03 [facility] Serum or plasma glucose pedro urement (mass/volume)Ordered By: Denver Hess on 04-09-2022 Glucose [Mass/Vol] 101 mg/dL 70-100 [facility] Serum or plasma potassium me asurement (moles/volume)Ordered By: Devner Hess on 04-09-2022 Potassium [Moles/Vol] 3.7 mmol/L 3.5-5.1 [facility] Serum or plasma sodium measu rement (moles/volume)Ordered By: Denver Hess on 04-09-2022 Sodium [Moles/Vol] 138 mmol/L 136-146 [facility] Serum or plasma total carbon dioxide measurement (moles/volume)Ordered By: Denver Hess on 04-09-2022 CO2 [Moles/Vol] 22.4 mmol/L 22.0-30.0 [facility] Serum or plasma urea nitroge n measurement (mass/volume)Ordered By: Denver Hess on 04-09-2022 Urea nitrogen [Mass/Vol] 7 mg/dL 9-23 [facility] Troponin I.cardiac [Mass/vol ume] in Serum or Plasma by High sensitivity methodOrdered By: Denver Hess on 04-09-2022 Troponin I.cardiac High sensitivity method [Mass/Vol] 5 pg/mL 0-15 [facility] WBC Auto (Bld) [#/Vol]Ordere d By: Denver Hess on 04-09-2022 WBC (Bld) [#/Vol] 8.8 10*3/uL 3.8-11.6 [facility] Basophils Auto (Bld) [#/Vol] Ordered By: Drew Ba on 04-04-2022 Basophils (Bld) [#/Vol] 0.0 10*3/uL 0.0-0.2 [facility] Basophils/100 WBC Auto (Bld) Ordered By: Drew Ba on 04-04-2022 Basophils/100 WBC (Bld) 0.4 % . [facility] Eosinophils Auto (Bld) [#/Vo l]Ordered By: Drew Ba on 04-04-2022 Eosinophils (Bld) [#/Vol] 0.3 10*3/uL 0.0-0.45 [facility] Eosinophils/100 WBC Auto (Bl d)Ordered By: Drew Ba on 04-04-2022 Eosinophils/100 WBC (Bld) 3.2 % . [facility] Erythrocyte distribution wid th Auto (RBC) [Ratio]Ordered By: Drew Ba on 04-04-2022 Erythrocyte distribution width (RBC) [Ratio] 17.3 % 11.9-15.3 [facility] Estimated glomerular filtrat ion rate (GFR) non- AmericanOrdered By: Drew Ba on 04-04-2022 GFR/1.73 sq M.predicted among non-blacks MDRD (S/P/Bld) [Vol rate/Area] > 60 mL/Min [facility] Hematocrit Auto (Bld) [Volum e fraction]Ordered By: Drew Ba on 04-04-2022 Hematocrit (Bld) [Volume fraction] 34.3 % 34.0-46.4 [facility] Hemoglobin [Mass/volume] in BloodOrdered By: Drew Ba on 04-04-2022 Hemoglobin (Bld) [Mass/Vol] 11.1 g/dL 11.8-15.4 [facility] Leukocytes [#/volume] correc jacki for nucleated erythrocytes in Blood by Automated counOrdered By: Drew Ba on 04-04-2022 WBC corrected for nucl RBC Auto (Bld) [#/Vol] 9.3 10*3/uL 3.8-11.6 [facility] Lymphocytes Auto (Bld) [#/Vo l]Ordered By: Drew Ba on 04-04-2022 Lymphocytes (Bld) [#/Vol] 2.9 10*3/uL 1.00-4.8 [facility] Lymphocytes/100 WBC Auto (Bl d)Ordered By: Drew Ba on 04-04-2022 Lymphocytes/100 WBC (Bld) 30.9 % . [facility] MCH Auto (RBC) [Entitic mass ]Ordered By: Drew Ba on 04-04-2022 MCH (RBC) [Entitic mass] 25.6 pg 24.7-34.3 [facility] MCHC Auto (RBC) [Mass/Vol]Or dered By: Drew Ba on 04-04-2022 MCHC (RBC) [Mass/Vol] 32.5 g/dL 32.0-35.0 [facility] MCV Auto (RBC) [Entitic vol] Ordered By: Drew Ba on 04-04-2022 MCV (RBC) [Entitic vol] 78.7 fL 80-100 [facility] Monocyte distribution width [Entitic volume] in Blood by AutomatedOrdered By: Drew Ba on 04-04-2022 Monocyte distribution width Auto (Bld) [Entitic vol] 19.76 % 0.00-20.00 [facility] Monocytes Auto (Bld) [#/Vol] Ordered By: Drew Ba on 04-04-2022 Monocytes (Bld) [#/Vol] 0.7 10*3/uL 0.0-0.8 [facility] Monocytes/100 WBC Auto (Bld) Ordered By: Drew Ba on 04-04-2022 Monocytes/100 WBC (Bld) 7.1 % . [facility] Neutrophils Auto (Bld) [#/Vo l]Ordered By: Drew Ba on 04-04-2022 Neutrophils (Bld) [#/Vol] 5.4 10*3/uL 1.8-7.7 [facility] Neutrophils/100 WBC Auto (Bl d)Ordered By: Drew Ba on 04-04-2022 Neutrophils/100 WBC (Bld) 58.4 % . [facility] No Panel InformationOrdered By: Drew Ba on 04-04-2022 > 60 mL/Min [facility] 115.47 [facility] Nucleated erythrocytes [Pres ence] in Blood by Automated countOrdered By: Drew Ba on 04-04-2022 Nucleated RBC Auto Ql (Bld) 0.1 /100{WBC} 0-0.5 [facility] Platelet mean volume Auto (B ld) [Entitic vol]Ordered By: Drew Ba on 04-04-2022 Platelet mean volume (Bld) [Entitic vol] 7.6 fL 6.3-10.7 [facility] Platelets Auto (Bld) [#/Vol] Ordered By: Drew Ba on 04-04-2022 Platelets (Bld) [#/Vol] 462 10*3/uL 150-450 [facility] RBC Auto (Bld) [#/Vol]Ordere d By: Drew Ba on 04-04-2022 RBC (Bld) [#/Vol] 4.36 10*6/uL 3.60-5.00 [facility] Serum or plasma anion gap de terminationOrdered By: Drew Ba on 04-04-2022 Anion gap [Moles/Vol] 12.0 mmol/L 6.0-15.0 [facility] Serum or plasma calcium pedro urement (mass/volume)Ordered By: Drew Ba on 04-04-2022 Calcium [Mass/Vol] 8.9 mg/dL 8.2-10.2 [facility] Serum or plasma chloride caity surement (moles/volume)Ordered By: Drew Ba on 04-04-2022 Chloride [Moles/Vol] 106 mmol/L 95-114 [facility] Serum or plasma creatinine m easurement with calculation of estimated glomerular filtrOrdered By: Drew Ba on 04-04-2022 Creatinine and Glomerular filtration rate.predicted panel (S/P/Bld) 0.62 mg/dL 0.44-1.03 [facility] Serum or plasma glucose pedro urement (mass/volume)Ordered By: Drew Ba on 04-04-2022 Glucose [Mass/Vol] 99 mg/dL 70-100 [facility] Serum or plasma potassium me asurement (moles/volume)Ordered By: Drew Ba on 04-04-2022 Potassium [Moles/Vol] 3.5 mmol/L 3.5-5.1 [facility] Serum or plasma sodium measu rement (moles/volume)Ordered By: Drew Ba on 04-04-2022 Sodium [Moles/Vol] 137 mmol/L 136-146 [facility] Serum or plasma total carbon dioxide measurement (moles/volume)Ordered By: Drew Ba on 04-04-2022 CO2 [Moles/Vol] 22.5 mmol/L 22.0-30.0 [facility] Serum or plasma urea nitroge n measurement (mass/volume)Ordered By: Drew Ba on 04-04-2022 Urea nitrogen [Mass/Vol] 10 mg/dL 9-23 [facility] Troponin I.cardiac [Mass/vol ume] in Serum or Plasma by High sensitivity methodOrdered By: Drew Ba on 04-04-2022 Troponin I.cardiac High sensitivity method [Mass/Vol] 6 pg/mL 0-15 [facility] WBC Auto (Bld) [#/Vol]Ordere d By: Drew Ba on 04-04-2022 WBC (Bld) [#/Vol] 9.3 10*3/uL 3.8-11.6 [facility] Automated erythrocytes count in urine sediment (number/area)Ordered By: Dustin Dorsey on 04-02-2022 RBC Auto (Urine sed) [#/Area] 5-9 [HPF] 0-4 [facility] Automated leukocytes count i n urine sediment (number/area)Ordered By: Dustin Dorsey on 04-02-2022 WBC Auto (Urine sed) [#/Area] None seen [HPF] 0-4 [facility] Basophils Auto (Bld) [#/Vol] Ordered By: PROVIDER TEMP on 04-02-2022 Basophils (Bld) [#/Vol] 0.1 10*3/uL 0.0-0.2 [facility] Basophils/100 WBC Auto (Bld) Ordered By: PROVIDER TEMP on 04-02-2022 Basophils/100 WBC (Bld) 0.9 % . [facility] Bilirubin Test strip Ql (U)O rdered By: Dustin Dorsey on 04-02-2022 Bilirubin Ql (U) Negative Negative [facility] Body fluid albumin measureme nt (mass/volume)Ordered By: Dustin oDrsey on 04-02-2022 Albumin (Body fld) [Mass/Vol] 3.9 g/dL 3.2-5.5 [facility] Color Auto (U)Ordered By: Charlene Dorsey on 04-02-2022 Color (U) Yellow Yellow [facility] Direct bilirubin measurement Ordered By: Dustin Dorsey on 04-02-2022 Bilirubin.direct [Mass/Vol] mg/dL 0.0-0.4 [facility] Eosinophils Auto (Bld) [#/Vo l]Ordered By: PROVIDER TEMP on 04-02-2022 Eosinophils (Bld) [#/Vol] 0.4 10*3/uL 0.0-0.45 [facility] Eosinophils/100 WBC Auto (Bl d)Ordered By: PROVIDER TEMP on 04-02-2022 Eosinophils/100 WBC (Bld) 3.9 % . [facility] Erythrocyte distribution wid th Auto (RBC) [Ratio]Ordered By: PROVIDER TEMP on 04-02-2022 Erythrocyte distribution width (RBC) [Ratio] 17.6 % 11.9-15.3 [facility] Estimated glomerular filtrat ion rate (GFR) non- AmericanOrdered By: Dustin Dorsey on 04-02-2022 GFR/1.73 sq M.predicted among non-blacks MDRD (S/P/Bld) [Vol rate/Area] > 60 mL/Min [facility] Globulin Calc (S) [Mass/Vol] Ordered By: Dustin Dorsey on 04-02-2022 Globulin (S) [Mass/Vol] 3.1 g/dL [facility] HCG ( test) IA.rapi d Ql (U)Ordered By: PROVIDER TEMP on 04-02-2022 HCG ( test) Ql (U) Negative [facility] Hematocrit Auto (Bld) [Volum e fraction]Ordered By: PROVIDER TEMP on 04-02-2022 Hematocrit (Bld) [Volume fraction] 34.0 % 34.0-46.4 [facility] Hemoglobin [Mass/volume] in BloodOrdered By: PROVIDER TEMP on 04-02-2022 Hemoglobin (Bld) [Mass/Vol] 11.1 g/dL 11.8-15.4 [facility] Ketones Auto test strip (U) [Mass/Vol]Ordered By: Dustin Dorsey on 04-02-2022 Ketones (U) [Mass/Vol] Negative Negative [facility] Leukocytes [#/volume] correc jacki for nucleated erythrocytes in Blood by Automated counOrdered By: PROVIDER TEMP on 04-02-2022 WBC corrected for nucl RBC Auto (Bld) [#/Vol] 10.3 10*3/uL 3.8-11.6 [facility] Lymphocytes Auto (Bld) [#/Vo l]Ordered By: PROVIDER TEMP on 04-02-2022 Lymphocytes (Bld) [#/Vol] 3.1 10*3/uL 1.00-4.8 [facility] Lymphocytes/100 WBC Auto (Bl d)Ordered By: PROVIDER TEMP on 04-02-2022 Lymphocytes/100 WBC (Bld) 30.2 % . [facility] MCH Auto (RBC) [Entitic mass ]Ordered By: PROVIDER TEMP on 04-02-2022 MCH (RBC) [Entitic mass] 25.4 pg 24.7-34.3 [facility] MCHC Auto (RBC) [Mass/Vol]Or dered By: PROVIDER TEMP on 04-02-2022 MCHC (RBC) [Mass/Vol] 32.6 g/dL 32.0-35.0 [facility] MCV Auto (RBC) [Entitic vol] Ordered By: PROVIDER TEMP on 04-02-2022 MCV (RBC) [Entitic vol] 78.1 fL 80-100 [facility] Monocyte distribution width [Entitic volume] in Blood by AutomatedOrdered By: PROVIDER TEMP on 04-02-2022 Monocyte distribution width Auto (Bld) [Entitic vol] 17.51 % 0.00-20.00 [facility] Monocytes Auto (Bld) [#/Vol] Ordered By: PROVIDER TEMP on 04-02-2022 Monocytes (Bld) [#/Vol] 0.7 10*3/uL 0.0-0.8 [facility] Monocytes/100 WBC Auto (Bld) Ordered By: PROVIDER TEMP on 04-02-2022 Monocytes/100 WBC (Bld) 6.5 % . [facility] Neutrophils Auto (Bld) [#/Vo l]Ordered By: PROVIDER TEMP on 04-02-2022 Neutrophils (Bld) [#/Vol] 6.0 10*3/uL 1.8-7.7 [facility] Neutrophils/100 WBC Auto (Bl d)Ordered By: PROVIDER TEMP on 04-02-2022 Neutrophils/100 WBC (Bld) 58.5 % . [facility] Nitrite Test strip Ql (U)Ord ered By: Dustin Dorsey on 04-02-2022 Nitrite Ql (U) Negative Negative [facility] No Panel InformationOrdered By: Dustin Dorsey on 04-02-2022 None seen [LPF] 0-8 [facility] > 60 mL/Min [facility] 59.0 U/L 22-51 [facility] 115.20 [facility] Nucleated erythrocytes [Pres ence] in Blood by Automated countOrdered By: PROVIDER TEMP on 04-02-2022 Nucleated RBC Auto Ql (Bld) 0.1 /100{WBC} 0-0.5 [facility] Platelet mean volume Auto (B ld) [Entitic vol]Ordered By: PROVIDER TEMP on 04-02-2022 Platelet mean volume (Bld) [Entitic vol] 7.6 fL 6.3-10.7 [facility] Platelets Auto (Bld) [#/Vol] Ordered By: PROVIDER TEMP on 04-02-2022 Platelets (Bld) [#/Vol] 437 10*3/uL 150-450 [facility] Protein Auto test strip (U) [Mass/Vol]Ordered By: Dustin Dorsey on 04-02-2022 Protein (U) [Mass/Vol] Negative Negative [facility] Protein [Mass/volume] in Ser um or PlasmaOrdered By: Dustin Dorsey on 04-02-2022 Protein [Mass/Vol] 7.0 g/dL 6.1-7.9 [facility] RBC Auto (Bld) [#/Vol]Ordere d By: PROVIDER TEMP on 04-02-2022 RBC (Bld) [#/Vol] 4.36 10*6/uL 3.60-5.00 [facility] Serum or plasma alanine ocampo otransferase measurement without P-5'-P (enzymatic activiOrdered By: Dustin Dorsey on 04-02-2022 ALT No additional P-5'-P [Catalytic activity/Vol] 18 U/L 10-60 [facility] Serum or plasma albumin/glob ulin mass ratioOrdered By: Dustin Dorsey on 04-02-2022 Albumin/Globulin [Mass ratio] 1.3 {ratio} [facility] Serum or plasma alkaline álvaro sphatase measurement (enzymatic activity/volume)Ordered By: Dustin Dorsey on 04-02-2022 ALP [Catalytic activity/Vol] 71 U/L 32-92 [facility] Serum or plasma anion gap de terminationOrdered By: Dustin Dorsey on 04-02-2022 Anion gap [Moles/Vol] 13.6 mmol/L 6.0-15.0 [facility] Serum or plasma aspartate am inotransferase measurement (enzymatic activity/volume)Ordered By: Dustin Dorsey on 04-02-2022 AST [Catalytic activity/Vol] 16 U/L 10-42 [facility] Serum or plasma calcium pedro urement (mass/volume)Ordered By: Dustin Dorsey on 04-02-2022 Calcium [Mass/Vol] 9.2 mg/dL 8.2-10.2 [facility] Serum or plasma chloride caity surement (moles/volume)Ordered By: Dustin Dorsey on 04-02-2022 Chloride [Moles/Vol] 103 mmol/L 95-114 [facility] Serum or plasma creatinine m easurement with calculation of estimated glomerular filtrOrdered By: Dustin Dorsey on 04-02-2022 Creatinine and Glomerular filtration rate.predicted panel (S/P/Bld) 0.64 mg/dL 0.44-1.03 [facility] Serum or plasma glucose pedro urement (mass/volume)Ordered By: Dustin Dorsey on 04-02-2022 Glucose [Mass/Vol] 95 mg/dL 70-100 [facility] Serum or plasma non-glucuron idated bilirubin measurement (mass/volume)Ordered By: Dustin Dorsey on 04-02-2022 Bilirubin.indirect [Mass/Vol] TNP [facility] Serum or plasma potassium me asurement (moles/volume)Ordered By: Dustin Dorsey on 04-02-2022 Potassium [Moles/Vol] 3.9 mmol/L 3.5-5.1 [facility] Serum or plasma sodium measu rement (moles/volume)Ordered By: Dustin Dorsey on 04-02-2022 Sodium [Moles/Vol] 138 mmol/L 136-146 [facility] Serum or plasma total biliru bin measurement (mass/volume)Ordered By: Dustin Dorsey on 04-02-2022 Bilirubin [Mass/Vol] 0.5 mg/dL 0.3-1.2 [facility] Serum or plasma total carbon dioxide measurement (moles/volume)Ordered By: Dustin Dorsey on 04-02-2022 CO2 [Moles/Vol] 25.3 mmol/L 22.0-30.0 [facility] Serum or plasma urea nitroge n measurement (mass/volume)Ordered By: Dustin Dorsey on 04-02-2022 Urea nitrogen [Mass/Vol] 11 mg/dL 9-23 [facility] Specific gravity Auto test s trip (U) [Rel density]Ordered By: Dustin Dorsey on 04-02-2022 Specific gravity (U) [Rel density] 1.009 1.001-1.030 [facility] Squamous epithelial cells de tection in urine sediment by light microscopyOrdered By: Dustin Dorsey on 04-02-2022 Epithelial cells.squamous LM Ql (Urine sed) 0-1 [HPF] 0-2 [facility] Urine bacteria detection by automated methodOrdered By: Dustin Dorsey on 04-02-2022 Bacteria Auto Ql (U) None seen None Seen [facility] Urine clarity by refractomet ry automatedOrdered By: Dustin Dorsey on 04-02-2022 Clarity Refractometry automated (U) Clear Clear [facility] Urine glucose measurement by automated test strip (mass/volume)Ordered By: Dustin Dorsey on 04-02-2022 Glucose Auto test strip (U) [Mass/Vol] Normal mg/dL Normal [facility] Urine hemoglobin detection b y automated test stripOrdered By: Dustin Dorsey on 04-02-2022 Hemoglobin Auto test strip Ql (U) 1+ Negative [facility] Urine leukocyte esterase det ection by automated test stripOrdered By: Dustin Dorsey on 04-02-2022 Leukocyte esterase Auto test strip Ql (U) Negative Negative [facility] Urobilinogen Auto test strip (U) [Mass/Vol]Ordered By: Dustin Dorsey on 04-02-2022 Urobilinogen (U) [Mass/Vol] Normal mg/dL Normal [facility] WBC Auto (Bld) [#/Vol]Ordere d By: AJAY COPPOLA on 04-02-2022 WBC (Bld) [#/Vol] 10.3 10*3/uL 3.8-11.6 [facility] pH Auto test strip (U)Ordere d By: Dustin Dorsey on 04-02-2022 pH (U) 7.0 [pH] 5.0-9.0 [facility] Automated erythrocytes count in urine sediment (number/area)Ordered By: John Phelan on 03-14-2022 RBC Auto (Urine sed) [#/Area] 5-9 [HPF] 0-4 [facility] Automated leukocytes count i n urine sediment (number/area)Ordered By: John Phelan on 03-14-2022 WBC Auto (Urine sed) [#/Area] 0-1 [HPF] 0-4 [facility] Bilirubin Test strip Ql (U)O rdered By: John Phelan on 03-14-2022 Bilirubin Ql (U) Negative Negative [facility] Color Auto (U)Ordered By: Mark Phelan on 03-14-2022 Color (U) Yellow Yellow [facility] Ketones Auto test strip (U) [Mass/Vol]Ordered By: John Phelan on 03-14-2022 Ketones (U) [Mass/Vol] Negative Negative [facility] Nitrite Test strip Ql (U)Ord ered By: John Phelan on 03-14-2022 Nitrite Ql (U) Negative Negative [facility] No Panel InformationOrdered By: John Phelan on 03-14-2022 0-8 [LPF] 0-8 [facility] Protein Auto test strip (U) [Mass/Vol]Ordered By: John Phelan on 03-14-2022 Protein (U) [Mass/Vol] Negative Negative [facility] Specific gravity Auto test s trip (U) [Rel density]Ordered By: John Phelan on 03-14-2022 Specific gravity (U) [Rel density] 1.027 1.001-1.030 [facility] Squamous epithelial cells de tection in urine sediment by light microscopyOrdered By: John Phelan on 03-14-2022 Epithelial cells.squamous LM Ql (Urine sed) 5-9 [HPF] 0-2 [facility] Urine bacteria detection by automated methodOrdered By: John Phelan on 03-14-2022 Bacteria Auto Ql (U) None seen None Seen [facility] Urine clarity by refractomet ry automatedOrdered By: John Phelan on 03-14-2022 Clarity Refractometry automated (U) Clear Clear [facility] Urine glucose measurement by automated test strip (mass/volume)Ordered By: John Phelan on 03-14-2022 Glucose Auto test strip (U) [Mass/Vol] Normal mg/dL Normal [facility] Urine hemoglobin detection b y automated test stripOrdered By: John Phelan on 03-14-2022 Hemoglobin Auto test strip Ql (U) 2+ Negative [facility] Urine leukocyte esterase det ection by automated test stripOrdered By: John Phelan on 03-14-2022 Leukocyte esterase Auto test strip Ql (U) Negative Negative [facility] Urobilinogen Auto test strip (U) [Mass/Vol]Ordered By: John Phelan on 03-14-2022 Urobilinogen (U) [Mass/Vol] Normal mg/dL Normal [facility] pH Auto test strip (U)Ordere d By: John Phelan on 03-14-2022 pH (U) 5.5 [pH] 5.0-9.0 [facility] Automated erythrocytes count in urine sediment (number/area)Ordered By: Denver Hess on 02-26-2022 RBC Auto (Urine sed) [#/Area] 3-4 [HPF] 0-4 [facility] Automated leukocytes count i n urine sediment (number/area)Ordered By: Denver Hess on 02-26-2022 WBC Auto (Urine sed) [#/Area] None seen [HPF] 0-4 [facility] Basophils Auto (Bld) [#/Vol] Ordered By: Denver Hess on 02-26-2022 Basophils (Bld) [#/Vol] 0.1 10*3/uL 0.0-0.2 [facility] Basophils/100 WBC Auto (Bld) Ordered By: Denver Hess on 02-26-2022 Basophils/100 WBC (Bld) 0.9 % . [facility] Bilirubin Test strip Ql (U)O rdered By: Denver Hess on 02-26-2022 Bilirubin Ql (U) Negative Negative [facility] Body fluid albumin measureme nt (mass/volume)Ordered By: Denver Hess on 02-26-2022 Albumin (Body fld) [Mass/Vol] 4.1 g/dL 3.2-5.5 [facility] Color Auto (U)Ordered By: Rosy Hess on 02-26-2022 Color (U) Yellow Yellow [facility] Direct bilirubin measurement Ordered By: Denver Hess on 02-26-2022 Bilirubin.direct [Mass/Vol] mg/dL 0.0-0.4 [facility] Eosinophils Auto (Bld) [#/Vo l]Ordered By: Denver Hess on 02-26-2022 Eosinophils (Bld) [#/Vol] 0.4 10*3/uL 0.0-0.45 [facility] Eosinophils/100 WBC Auto (Bl d)Ordered By: Denver Hess on 02-26-2022 Eosinophils/100 WBC (Bld) 4.4 % . [facility] Erythrocyte distribution wid th Auto (RBC) [Ratio]Ordered By: Denver Hess on 02-26-2022 Erythrocyte distribution width (RBC) [Ratio] 16.8 % 11.9-15.3 [facility] Estimated glomerular filtrat ion rate (GFR) non- AmericanOrdered By: Denver Hess on 02-26-2022 GFR/1.73 sq M.predicted among non-blacks MDRD (S/P/Bld) [Vol rate/Area] > 60 mL/Min [facility] Globulin Calc (S) [Mass/Vol] Ordered By: Denver Hess on 02-26-2022 Globulin (S) [Mass/Vol] 3.2 g/dL [facility] Hematocrit Auto (Bld) [Volum e fraction]Ordered By: Denver Hess on 02-26-2022 Hematocrit (Bld) [Volume fraction] 36.0 % 34.0-46.4 [facility] Hemoglobin [Mass/volume] in BloodOrdered By: Denver Hess on 02-26-2022 Hemoglobin (Bld) [Mass/Vol] 11.3 g/dL 11.8-15.4 [facility] Ketones Auto test strip (U) [Mass/Vol]Ordered By: Denver Hess on 02-26-2022 Ketones (U) [Mass/Vol] Negative Negative [facility] Lymphocytes Auto (Bld) [#/Vo l]Ordered By: Denver Hess on 02-26-2022 Lymphocytes (Bld) [#/Vol] 3.1 10*3/uL 1.00-4.8 [facility] Lymphocytes/100 WBC Auto (Bl d)Ordered By: Denver Hess on 02-26-2022 Lymphocytes/100 WBC (Bld) 34.2 % . [facility] MCH Auto (RBC) [Entitic mass ]Ordered By: Denver Hess on 02-26-2022 MCH (RBC) [Entitic mass] 24.9 pg 24.7-34.3 [facility] MCHC Auto (RBC) [Mass/Vol]Or dered By: Denver Hess on 02-26-2022 MCHC (RBC) [Mass/Vol] 31.5 g/dL 32.0-35.0 [facility] MCV Auto (RBC) [Entitic vol] Ordered By: Denver Hess on 02-26-2022 MCV (RBC) [Entitic vol] 79.0 fL 80-100 [facility] Monocytes Auto (Bld) [#/Vol] Ordered By: Denver Hess on 02-26-2022 Monocytes (Bld) [#/Vol] 0.6 10*3/uL 0.0-0.8 [facility] Monocytes/100 WBC Auto (Bld) Ordered By: Denver Hess on 02-26-2022 Monocytes/100 WBC (Bld) 7.1 % . [facility] Neutrophils Auto (Bld) [#/Vo l]Ordered By: Denver Hess on 02-26-2022 Neutrophils (Bld) [#/Vol] 4.8 10*3/uL 1.8-7.7 [facility] Neutrophils/100 WBC Auto (Bl d)Ordered By: Denver Hess on 02-26-2022 Neutrophils/100 WBC (Bld) 53.4 % . [facility] Nitrite Test strip Ql (U)Ord ered By: Denver Hess on 02-26-2022 Nitrite Ql (U) Negative Negative [facility] No Panel InformationOrdered By: Denver Hess on 02-26-2022 None seen [LPF] 0-8 [facility] 9.1 10*3/uL 4.5-11.0 [facility] 0.2 % 0-0.5 [facility] > 60 mL/Min [facility] 49.0 U/L 22-51 [facility] 114.11 [facility] Platelet mean volume Auto (B ld) [Entitic vol]Ordered By: Denver Hess on 02-26-2022 Platelet mean volume (Bld) [Entitic vol] 7.7 fL 6.3-10.7 [facility] Platelets Auto (Bld) [#/Vol] Ordered By: Denver Hess on 02-26-2022 Platelets (Bld) [#/Vol] 484 10*3/uL 150-450 [facility] Protein Auto test strip (U) [Mass/Vol]Ordered By: Denver Hess on 02-26-2022 Protein (U) [Mass/Vol] Negative Negative [facility] Protein [Mass/volume] in Ser um or PlasmaOrdered By: Denver Hess on 02-26-2022 Protein [Mass/Vol] 7.3 g/dL 6.1-7.9 [facility] RBC Auto (Bld) [#/Vol]Ordere d By: Denver Hess on 02-26-2022 RBC (Bld) [#/Vol] 4.56 10*6/uL 3.60-5.00 [facility] Serum or plasma alanine ocampo otransferase measurement without P-5'-P (enzymatic activiOrdered By: Denver Hess on 02-26-2022 ALT No additional P-5'-P [Catalytic activity/Vol] 18 U/L 10-60 [facility] Serum or plasma albumin/glob ulin mass ratioOrdered By: Denver Hess on 02-26-2022 Albumin/Globulin [Mass ratio] 1.3 {ratio} [facility] Serum or plasma alkaline álvaro sphatase measurement (enzymatic activity/volume)Ordered By: Denver Hess on 02-26-2022 ALP [Catalytic activity/Vol] 69 U/L 32-92 [facility] Serum or plasma anion gap de terminationOrdered By: Denver Hess on 02-26-2022 Anion gap [Moles/Vol] 13.4 mmol/L 6.0-15.0 [facility] Serum or plasma aspartate am inotransferase measurement (enzymatic activity/volume)Ordered By: Denver Hess on 02-26-2022 AST [Catalytic activity/Vol] 17 U/L 10-42 [facility] Serum or plasma calcium pedro urement (mass/volume)Ordered By: Denver Hess on 02-26-2022 Calcium [Mass/Vol] 9.4 mg/dL 8.2-10.2 [facility] Serum or plasma chloride caity surement (moles/volume)Ordered By: Denver Hess on 02-26-2022 Chloride [Moles/Vol] 99 mmol/L 95-114 [facility] Serum or plasma creatinine m easurement with calculation of estimated glomerular filtrOrdered By: Denver Hess on 02-26-2022 Creatinine and Glomerular filtration rate.predicted panel (S/P/Bld) 0.64 mg/dL 0.44-1.03 [facility] Serum or plasma glucose pedro urement (mass/volume)Ordered By: Denver Hess on 02-26-2022 Glucose [Mass/Vol] 96 mg/dL 70-100 [facility] Serum or plasma non-glucuron idated bilirubin measurement (mass/volume)Ordered By: Denver Hess on 02-26-2022 Bilirubin.indirect [Mass/Vol] TNP [facility] Serum or plasma potassium me asurement (moles/volume)Ordered By: Denver Hess on 02-26-2022 Potassium [Moles/Vol] 3.8 mmol/L 3.5-5.1 [facility] Serum or plasma sodium measu rement (moles/volume)Ordered By: Denver Hess on 02-26-2022 Sodium [Moles/Vol] 138 mmol/L 136-146 [facility] Serum or plasma total biliru bin measurement (mass/volume)Ordered By: Denver Hess on 02-26-2022 Bilirubin [Mass/Vol] 0.4 mg/dL 0.3-1.2 [facility] Serum or plasma total carbon dioxide measurement (moles/volume)Ordered By: Denver Hess on 02-26-2022 CO2 [Moles/Vol] 29.4 mmol/L 22.0-30.0 [facility] Serum or plasma urea nitroge n measurement (mass/volume)Ordered By: Denver Hess on 02-26-2022 Urea nitrogen [Mass/Vol] 6 mg/dL 12-22 [facility] Specific gravity Auto test s trip (U) [Rel density]Ordered By: Denver Hess on 02-26-2022 Specific gravity (U) [Rel density] 1.010 1.001-1.030 [facility] Squamous epithelial cells de tection in urine sediment by light microscopyOrdered By: Denver Hess on 02-26-2022 Epithelial cells.squamous LM Ql (Urine sed) None seen [HPF] 0-2 [facility] Urine bacteria detection by automated methodOrdered By: Denver Hess on 02-26-2022 Bacteria Auto Ql (U) None seen None Seen [facility] Urine clarity by refractomet ry automatedOrdered By: Denver Hess on 02-26-2022 Clarity Refractometry automated (U) Clear Clear [facility] Urine glucose measurement by automated test strip (mass/volume)Ordered By: Denver Hess on 02-26-2022 Glucose Auto test strip (U) [Mass/Vol] Normal mg/dL Normal [facility] Urine hemoglobin detection b y automated test stripOrdered By: Denver Hess on 02-26-2022 Hemoglobin Auto test strip Ql (U) 1+ Negative [facility] Urine leukocyte esterase det ection by automated test stripOrdered By: Denver Hess on 02-26-2022 Leukocyte esterase Auto test strip Ql (U) Negative Negative [facility] Urobilinogen Auto test strip (U) [Mass/Vol]Ordered By: Denver Hess on 02-26-2022 Urobilinogen (U) [Mass/Vol] Normal mg/dL Normal [facility] WBC Auto (Bld) [#/Vol]Ordere d By: Denver Hess on 02-26-2022 WBC (Bld) [#/Vol] 9.1 10*3/uL 3.8-11.6 [facility] pH Auto test strip (U)Ordere d By: Denver Hess on 02-26-2022 pH (U) 5.5 [pH] 5.0-9.0 [facility] MICRO OTHER TESTSOrdered By: Ganesh Mandujano on 02-04-2022 Influenzae A Ag Negative (02/04/22 10:29 PM) Normal Negative [facility] Influenzae B Ag Negative (02/04/22 10:29 PM) Normal Negative [facility] [place] Albumin [Mass/volume] in Ser um or PlasmaOrdered By: Denver Hess on 01-29-2022 Albumin [Mass/Vol] 3.5 g/dL 3.2-5.5 [facility] Basophils Auto (Bld) [#/Vol] Ordered By: Denver Hess on 01-29-2022 Basophils (Bld) [#/Vol] 0.1 10*3/uL 0.0-0.2 [facility] Basophils/100 WBC Auto (Bld) Ordered By: Denver Hess on 01-29-2022 Basophils/100 WBC (Bld) 0.7 % . [facility] Direct bilirubin measurement Ordered By: Denver Hess on 01-29-2022 Bilirubin.direct [Mass/Vol] mg/dL 0.0-0.4 [facility] Eosinophils Auto (Bld) [#/Vo l]Ordered By: Denver Hess on 01-29-2022 Eosinophils (Bld) [#/Vol] 0.2 10*3/uL 0.0-0.45 [facility] Eosinophils/100 WBC Auto (Bl d)Ordered By: Denver Hess on 01-29-2022 Eosinophils/100 WBC (Bld) 2.6 % . [facility] Erythrocyte distribution wid th Auto (RBC) [Ratio]Ordered By: Denver Hess on 01-29-2022 Erythrocyte distribution width (RBC) [Ratio] 17.2 % 11.9-15.3 [facility] Estimated glomerular filtrat ion rate (GFR) non- AmericanOrdered By: Denver Hess on 01-29-2022 GFR/1.73 sq M.predicted among non-blacks MDRD (S/P/Bld) [Vol rate/Area] > 60 mL/Min [facility] Globulin Calc (S) [Mass/Vol] Ordered By: Denver Hess on 01-29-2022 Globulin (S) [Mass/Vol] 2.8 g/dL [facility] Hematocrit Auto (Bld) [Volum e fraction]Ordered By: Denver Hess on 01-29-2022 Hematocrit (Bld) [Volume fraction] 35.1 % 34.0-46.4 [facility] Hemoglobin [Mass/volume] in BloodOrdered By: Denver Hess on 01-29-2022 Hemoglobin (Bld) [Mass/Vol] 11.4 g/dL 11.8-15.4 [facility] Lymphocytes Auto (Bld) [#/Vo l]Ordered By: Denver Hess on 01-29-2022 Lymphocytes (Bld) [#/Vol] 2.5 10*3/uL 1.00-4.8 [facility] Lymphocytes/100 WBC Auto (Bl d)Ordered By: Denver Hess on 01-29-2022 Lymphocytes/100 WBC (Bld) 30.4 % . [facility] MCH Auto (RBC) [Entitic mass ]Ordered By: Denver Hess on 01-29-2022 MCH (RBC) [Entitic mass] 25.5 pg 24.7-34.3 [facility] MCHC Auto (RBC) [Mass/Vol]Or dered By: Denver Hess on 01-29-2022 MCHC (RBC) [Mass/Vol] 32.4 g/dL 32.0-35.0 [facility] MCV Auto (RBC) [Entitic vol] Ordered By: Denver Hess on 01-29-2022 MCV (RBC) [Entitic vol] 78.9 fL 80-100 [facility] Monocytes Auto (Bld) [#/Vol] Ordered By: Denver Hess on 01-29-2022 Monocytes (Bld) [#/Vol] 0.5 10*3/uL 0.0-0.8 [facility] Monocytes/100 WBC Auto (Bld) Ordered By: Denver Hess on 01-29-2022 Monocytes/100 WBC (Bld) 6.5 % . [facility] Neutrophils Auto (Bld) [#/Vo l]Ordered By: Denver Hess on 01-29-2022 Neutrophils (Bld) [#/Vol] 4.9 10*3/uL 1.8-7.7 [facility] Neutrophils/100 WBC Auto (Bl d)Ordered By: Denver Hess on 01-29-2022 Neutrophils/100 WBC (Bld) 59.8 % . [facility] No Panel InformationOrdered By: Denver Hess on 01-29-2022 8.3 10*3/uL 4.5-11.0 [facility] 0.1 % 0-0.5 [facility] > 60 mL/Min [facility] 43.0 U/L 22-51 [facility] 126.22 [facility] Platelet mean volume Auto (B ld) [Entitic vol]Ordered By: Denver Hess on 01-29-2022 Platelet mean volume (Bld) [Entitic vol] 8.4 fL 6.3-10.7 [facility] Platelets Auto (Bld) [#/Vol] Ordered By: Denver Hess on 01-29-2022 Platelets (Bld) [#/Vol] 359 10*3/uL 150-450 [facility] Protein [Mass/volume] in Ser um or PlasmaOrdered By: Denver Hess on 01-29-2022 Protein [Mass/Vol] 6.3 g/dL 6.1-7.9 [facility] RBC Auto (Bld) [#/Vol]Ordere d By: Denver Hess on 01-29-2022 RBC (Bld) [#/Vol] 4.45 10*6/uL 3.60-5.00 [facility] Serum or plasma alanine ocampo otransferase measurement without P-5'-P (enzymatic activiOrdered By: Denver Hess on 01-29-2022 ALT No additional P-5'-P [Catalytic activity/Vol] 14 U/L 10-60 [facility] Serum or plasma albumin/glob ulin mass ratioOrdered By: Denver Hess on 01-29-2022 Albumin/Globulin [Mass ratio] 1.3 {ratio} [facility] Serum or plasma alkaline álvaro sphatase measurement (enzymatic activity/volume)Ordered By: Denver Hess on 01-29-2022 ALP [Catalytic activity/Vol] 69 U/L 32-92 [facility] Serum or plasma anion gap de terminationOrdered By: Denver Hess on 01-29-2022 Anion gap [Moles/Vol] 13.8 mmol/L 6.0-15.0 [facility] Serum or plasma aspartate am inotransferase measurement (enzymatic activity/volume)Ordered By: Denver Hess on 01-29-2022 AST [Catalytic activity/Vol] 15 U/L 10-42 [facility] Serum or plasma calcium pedro urement (mass/volume)Ordered By: Denver Hess on 01-29-2022 Calcium [Mass/Vol] 8.9 mg/dL 8.2-10.2 [facility] Serum or plasma chloride caity surement (moles/volume)Ordered By: Denver Hess on 01-29-2022 Chloride [Moles/Vol] 105 mmol/L 95-114 [facility] Serum or plasma creatinine m easurement with calculation of estimated glomerular filtrOrdered By: Denver Hess on 01-29-2022 Creatinine and Glomerular filtration rate.predicted panel (S/P/Bld) 0.57 mg/dL 0.44-1.03 [facility] Serum or plasma glucose pedro urement (mass/volume)Ordered By: Denver Hess on 01-29-2022 Glucose [Mass/Vol] 96 mg/dL 70-100 [facility] Serum or plasma non-glucuron idated bilirubin measurement (mass/volume)Ordered By: Denver Hess on 01-29-2022 Bilirubin.indirect [Mass/Vol] TNP [facility] Serum or plasma potassium me asurement (moles/volume)Ordered By: Denver Hess on 01-29-2022 Potassium [Moles/Vol] 3.6 mmol/L 3.5-5.1 [facility] Serum or plasma sodium measu rement (moles/volume)Ordered By: Denver Hess on 01-29-2022 Sodium [Moles/Vol] 139 mmol/L 136-146 [facility] Serum or plasma total biliru bin measurement (mass/volume)Ordered By: Denver Hess on 01-29-2022 Bilirubin [Mass/Vol] 0.4 mg/dL 0.3-1.2 [facility] Serum or plasma total carbon dioxide measurement (moles/volume)Ordered By: Denver Hess on 01-29-2022 CO2 [Moles/Vol] 23.8 mmol/L 22.0-30.0 [facility] Serum or plasma urea nitroge n measurement (mass/volume)Ordered By: Denver Hess on 01-29-2022 Urea nitrogen [Mass/Vol] 7 mg/dL 9-23 [facility] WBC Auto (Bld) [#/Vol]Ordere d By: Denver Hess on 01-29-2022 WBC (Bld) [#/Vol] 8.3 10*3/uL 3.8-11.6 [facility] Automated erythrocytes count in urine sediment (number/area)Ordered By: Denver Hess on 01-28-2022 RBC Auto (Urine sed) [#/Area] 5-9 [HPF] 0-4 [facility] Automated leukocytes count i n urine sediment (number/area)Ordered By: Denver Hess on 01-28-2022 WBC Auto (Urine sed) [#/Area] 0-1 [HPF] 0-4 [facility] Bilirubin Test strip Ql (U)O rdered By: Denver Hess on 01-28-2022 Bilirubin Ql (U) Negative Negative [facility] CHEMISTRYOrdered By: SYSTEM SYSTEM on 01-28-2022 Albumin [Mass/Vol] 4.0 g/dL Normal 3.3 - 5.0 gm/dL [facility] Albumin/Globulin [Mass ratio] 1.2 {ratio} Normal 1.1 - 2.2 [facility] ALP [Catalytic activity/Vol] 75 [iU]/d Normal 21 - 98 Int._Unit/L [facility] ALT No additional P-5'-P [Catalytic activity/Vol] 16 [iU]/d Normal 6 - 46 Int._Unit/L [facility] Anion gap [Moles/Vol] 12 mmol/L Normal 6 - 16 mEq/L [facility] AST [Catalytic activity/Vol] 15 [iU]/d Normal 5 - 43 Int._Unit/L [facility] Bilirubin [Mass/Vol] 0.2 mg/dL Normal 0.0 - 1 .1 mg/dL [facility] Bilirubin.direct [Mass/Vol] mg/dL Normal 0.1 - 0.4 mg/dL [facility] Bilirubin.indirect [Mass or moles/Vol] Unable to Calculate mg/dL Invalid Interpretation Code 0.1 - 0.9 mg/dL [facility] Calcium [Mass/Vol] 8.8 mg/dL Low 8.9 - 11. 1 mg/dL [facility] Chloride [Moles/Vol] 106 mmol/L Normal 101 - 1 11 mmol/L [facility] CO2 [Moles/Vol] 25 mmol/L Normal 21 - 31 mmol/L [facility] Creatinine [Mass/Vol] 0.7 mg/dL Normal 0.5 - 1.3 mg/dL [facility] GFR/1.73 sq M.predicted among blacks MDRD (S/P/Bld) [Vol rate/Area] mL/min/1.73 m2 Normal >=59mL/min/ 1.73 m2 [facility] S GFR/1.73 sq M.predicted among non-blacks MDRD (S/P/Bld) [Vol rate/Area] mL/min/1.73 m2 Normal >=59mL/min/ 1.73 m2 [facility] Globulin (S) [Mass/Vol] 3.4 g/dL Normal 1.4 - 4.0 gm/dL [facility] Glucose [Mass/Vol] 94 mg/dL Normal 55 - 199 mg/dL [facility] Lipase [Catalytic activity/Vol] 52 U/L Normal 13 - 58 unit/L [facility] Potassium [Moles/Vol] 3.8 mmol/L Normal 3.5 - 5.3 mmol/L [facility] Protein [Mass/Vol] 7.4 g/dL Normal 6.0 - 7.8 gm/dL [facility] Sodium [Moles/Vol] 139 mmol/L Normal 135 - 145 mmol/L [facility] Urea nitrogen [Mass/Vol] 15 mg/dL Normal 5 - 21 mg/dL [facility] Urea nitrogen/Creatinine [Mass ratio] 21 mg/mg High 10 - 20 [facility] Color Auto (U)Ordered By: Rosy Hess on 01-28-2022 Color (U) Yellow Yellow [facility] HCG ( test) IAkanei d Ql (U)Ordered By: AJAY COPPOLA on 01-28-2022 HCG ( test) Ql (U) Negative [facility] HEMATOLOGYOrdered By: SYSTEM SYSTEM on 01-28-2022 Basophils/100 WBC (Bld) 1.0 % Normal 0.0 - 2.0 % [facility] Basophils/Leukocytes Auto (Bld) [Pure # fraction] 0.1 E9/L Normal 0.0 - 0.2 E9/L [facility] Eosinophils/100 WBC (Bld) 2.9 % Normal 0.0 - 8.0 % [facility] Eosinophils/Leukocytes Auto (Bld) [Pure # fraction] 0.3 E9/L Normal 0.0 - 0.5 E9/L [facility] Lymphocytes/100 WBC (Bld) 32.9 % Normal 14.0 - 50.0 % [facility] Lymphocytes/Leukocytes Auto (Bld) [Pure # fraction] 2.9 E9/L Normal 1.0 - 4.0 E9/L [facility] Monocytes/100 WBC (Bld) 7.5 % Normal 4.0 - 14.0 % [facility] Monocytes/Leukocytes Auto (Bld) [Pure # fraction] 0.7 E9/L Normal 0.2 - 1.0 E9/L [facility] Neutrophils/100 WBC (Bld) 55.7 % Normal 36.0 - 75.0 % [facility] Neutrophils/Leukocytes Auto (Bld) [Pure # fraction] 4.9 E9/L Normal 2.0 - 7.5 E9/L [facility] HEMATOLOGYOrdered By: Katie Davis on 01-28-2022 Erythrocyte distribution width (RBC) [Ratio] 17.2 % High 10.9 - 14.2 % [facility] Hematocrit (Bld) [Volume fraction] 35.9 % Normal 34.0 - 46.0 % [facility] Hemoglobin (Bld) [Mass/Vol] 11.6 g/dL Low 12.0 - 16.0 gm/dL [facility] MCH (RBC) [Entitic mass] 25.1 pg Low 27. 0 - 34.0 pg [facility] MCHC (RBC) [Mass/Vol] 32.2 g/dL Normal 31.4 - 36.0 gm/dL [facility] MCV (RBC) [Entitic vol] 77.8 fL Low 80.0 - 100.0 fL [facility] Platelet mean volume (Bld) [Entitic vol] 8.1 fL Normal 6.4 - 10.8 fL [facility] Platelets (Bld) [#/Vol] 372.0 E9/L Normal 150. 0 - 500.0 E9/L [facility] RBC (Bld) [#/Vol] 4.6 E12/L Normal 4.3 - 5.9 E12/L [facility] WBC corrected for nucl RBC Auto (Bld) [#/Vol] 8.7 E9/L Normal 4.0 - 11.0 E9/L [facility] Ketones Auto test strip (U) [Mass/Vol]Ordered By: Denver Hess on 01-28-2022 Ketones (U) [Mass/Vol] Negative Negative [facility] Nitrite Test strip Ql (U)Ord ered By: Denver Hess on 01-28-2022 Nitrite Ql (U) Negative Negative [facility] No Panel InformationOrdered By: Denver Hess on 01-28-2022 0-8 [LPF] 0-8 [facility] Protein Auto test strip (U) [Mass/Vol]Ordered By: Denver Hess on 01-28-2022 Protein (U) [Mass/Vol] Negative Negative [facility] Specific gravity Auto test s trip (U) [Rel density]Ordered By: Denver Hess on 01-28-2022 Specific gravity (U) [Rel density] 1.022 1.001-1.030 [facility] Squamous epithelial cells de tection in urine sediment by light microscopyOrdered By: Denver Hess on 01-28-2022 Epithelial cells.squamous LM Ql (Urine sed) 0-1 [HPF] 0-2 [facility] URINALYSISOrdered By: Katie Davis on 01-28-2022 Bacteria LM Ql (Urine sed) Trace /HPF Normal Trace/HPF [facility] UA Auto SS Bilirubin Ql (U) Negative (01/28/22 1:38 AM) Normal Negative [facility] UA Auto SS Clarity (U) Clear (01/28/22 1:38 AM) Normal Clear [facility] UA Auto SS Color (U) Yellow (01/28/22 1:38 AM) Normal Yellow [facility] UA Auto SS Crystals LM Ql (Urine sed) Present (01/28/22 1:38 AM) Normal [facility] UA Auto SS Epithelial cells.squamous LM.HPF (Urine sed) [#/Area] 3-4 /HPF Normal 0-2/HPF [facility] UA Aut o SS Glucose Test strip (U) [Mass/Vol] Negative (01/28/22 1:38 AM) Normal Negative [facility] UA Auto SS Hemoglobin Ql (U) 1+ *ABN* (01/28/22 1:38 AM) Invalid Interpretation Code Negative [facility] UA Auto SS Ketones (U) [Mass/Vol] Negative (01/28/22 1:38 AM) Normal Negative [facility] UA Auto SS Spiro.plasma/Spiro.R BC (Bld) [Mass ratio] 0-3 /HPF Normal 0-3/HPF [facility] UA Au to SS Mucus Ql (Urine sed) 1+ (01/28/22 1:38 AM) Normal [facility] UA Auto SS Nitrite Ql (U) Negative (01/28/22 1:38 AM) Normal Negative [facility] UA Auto SS pH (U) 7.5 *NA* (01/28/22 1:38 AM) Invalid Interpretation Code 5.0 - 9.0 [facility] UA Auto SS Protein (U) [Mass/Vol] Negative (01/28/22 1:38 AM) Normal Negative [facility] UA Auto SS Specific gravity (U) [Rel density] 1.020 *NA* (01/28/22 1:38 AM) Invalid Interpretation Code 1.005 - 1.030 [facility] UA Auto SS UA Spec Desc Clean Catch (01/28/22 1:38 AM) Normal [facility] UA Auto SS Urobilinogen Qn (U) 1.3041852 {Malachi'U}/dL Normal 0.0 - 1.0 EU/dL [facility] UA Auto SS WBC Auto Ql (U) Negative (01/28/22 1:38 AM) Normal Negative [facility] UA Auto SS WBC LM.HPF (Urine sed) [#/Area] 0-5 /HPF Normal 0-5/HPF [facility] UA Auto SS Urine bacteria detection by automated methodOrdered By: Denver Hess on 01-28-2022 Bacteria Auto Ql (U) None seen None Seen [facility] Urine clarity by refractomet ry automatedOrdered By: Denver Hess on 01-28-2022 Clarity Refractometry automated (U) Clear Clear [facility] Urine glucose measurement by automated test strip (mass/volume)Ordered By: Denver Hess on 01-28-2022 Glucose Auto test strip (U) [Mass/Vol] Normal mg/dL Normal [facility] Urine hemoglobin detection b y automated test stripOrdered By: Denver Hess on 01-28-2022 Hemoglobin Auto test strip Ql (U) 1+ Negative [facility] Urine leukocyte esterase det ection by automated test stripOrdered By: Denver Hess on 01-28-2022 Leukocyte esterase Auto test strip Ql (U) Negative Negative [facility] Urobilinogen Auto test strip (U) [Mass/Vol]Ordered By: Denver Hess on 01-28-2022 Urobilinogen (U) [Mass/Vol] Normal mg/dL Normal [facility] pH Auto test strip (U)Ordere d By: Denver Hess on 01-28-2022 pH (U) 5.5 [pH] 5.0-9.0 [facility] Automated erythrocytes count in urine sediment (number/area)Ordered By: Alondra Capone on 01-16-2022 RBC Auto (Urine sed) [#/Area] 1-2 [HPF] 0-4 [facility] Automated leukocytes count i n urine sediment (number/area)Ordered By: Alondra Capone on 01-16-2022 WBC Auto (Urine sed) [#/Area] None seen [HPF] 0-4 [facility] Bilirubin Test strip Ql (U)O rdered By: Alondra Capone on 01-16-2022 Bilirubin Ql (U) Negative Negative [facility] Color Auto (U)Ordered By: Chavez Capone on 01-16-2022 Color (U) Yellow Yellow [facility] Ketones Auto test strip (U) [Mass/Vol]Ordered By: Alondra Capone on 01-16-2022 Ketones (U) [Mass/Vol] Negative Negative [facility] - UrinalysisOrder ed By: Alondra Capone on 01-16-2022 Hyaline casts LM Ql (Urine sed) None seen [LPF] 0-8 [facility] Nitrite Test strip Ql (U)Ord ered By: Alondra Capone on 01-16-2022 Nitrite Ql (U) Negative Negative [facility] No Panel InformationOrdered By: Alondra Capone on 01-16-2022 None seen [LPF] 0-8 [facility] Protein Auto test strip (U) [Mass/Vol]Ordered By: Alondra Capone on 01-16-2022 Protein (U) [Mass/Vol] Negative Negative [facility] Specific gravity Auto test s trip (U) [Rel density]Ordered By: Alondra Capone on 01-16-2022 Specific gravity (U) [Rel density] 1.008 1.001-1.030 [facility] Squamous epithelial cells de tection in urine sediment by light microscopyOrdered By: Alondra Capone on 01-16-2022 Epithelial cells.squamous LM Ql (Urine sed) 0-1 [HPF] 0-2 [facility] Urine bacteria detection by automated methodOrdered By: Alondra Capone on 01-16-2022 Bacteria Auto Ql (U) None seen None Seen [facility] Urine clarity by refractomet ry automatedOrdered By: Alondra Capone on 01-16-2022 Clarity Refractometry automated (U) Clear Clear [facility] Urine glucose measurement by automated test strip (mass/volume)Ordered By: Alondra Capone on 01-16-2022 Glucose Auto test strip (U) [Mass/Vol] Normal mg/dL Normal [facility] Urine hemoglobin detection b y automated test stripOrdered By: Alondra Capone on 01-16-2022 Hemoglobin Auto test strip Ql (U) 1+ Negative [facility] Urine leukocyte esterase det ection by automated test stripOrdered By: Alondra Capone on 01-16-2022 Leukocyte esterase Auto test strip Ql (U) Negative Negative [facility] Urobilinogen Auto test strip (U) [Mass/Vol]Ordered By: Alondra Capone on 01-16-2022 Urobilinogen (U) [Mass/Vol] Normal mg/dL Normal [facility] pH Auto test strip (U)Ordere d By: Alondra Capone on 01-16-2022 pH (U) 5.5 [pH] 5.0-9.0 [facility] CHEMISTRYOrdered By: SYSTEM SYSTEM on 12-28-2021 Albumin [Mass/Vol] 4.4 g/dL Normal 3.3 - 5.0 gm/dL [facility] Albumin/Globulin [Mass ratio] 1.4 {ratio} Normal 1.1 - 2.2 [facility] ALP [Catalytic activity/Vol] 84 [iU]/d Normal 21 - 98 Int._Unit/L [facility] ALT No additional P-5'-P [Catalytic activity/Vol] 14 [iU]/d Normal 6 - 46 Int._Unit/L [facility] Anion gap [Moles/Vol] 11 mmol/L Normal 6 - 16 mEq/L [facility] AST [Catalytic activity/Vol] 17 [iU]/d Normal 5 - 43 Int._Unit/L [facility] Bilirubin [Mass/Vol] 0.4 mg/dL Normal 0.0 - 1 .1 mg/dL [facility] Bilirubin.direct [Mass/Vol] mg/dL Normal 0.1 - 0.4 mg/dL [facility] Bilirubin.indirect [Mass or moles/Vol] Unable to Calculate mg/dL Invalid Interpretation Code 0.1 - 0.9 mg/dL [facility] Calcium [Mass/Vol] 9.4 mg/dL Normal 8.9 - 11. 1 mg/dL [facility] Chloride [Moles/Vol] 104 mmol/L Normal 101 - 1 11 mmol/L [facility] CO2 [Moles/Vol] 27 mmol/L Normal 21 - 31 mmol/L [facility] Creatinine [Mass/Vol] 0.8 mg/dL Normal 0.5 - 1.3 mg/dL [facility] GFR/1.73 sq M.predicted among blacks MDRD (S/P/Bld) [Vol rate/Area] mL/min/1.73 m2 Normal >=59mL/min/ 1.73 m2 [facility] S GFR/1.73 sq M.predicted among non-blacks MDRD (S/P/Bld) [Vol rate/Area] mL/min/1.73 m2 Normal >=59mL/min/ 1.73 m2 [facility] Chem S Globulin (S) [Mass/Vol] 3.1 g/dL Normal 1.4 - 4.0 gm/dL [facility] Glucose [Mass/Vol] 94 mg/dL Normal 55 - 199 mg/dL [facility] Lipase [Catalytic activity/Vol] 40 U/L Normal 13 - 58 unit/L [facility] Potassium [Moles/Vol] 3.8 mmol/L Normal 3.5 - 5.3 mmol/L [facility] Protein [Mass/Vol] 7.5 g/dL Normal 6.0 - 7.8 gm/dL [facility] Sodium [Moles/Vol] 138 mmol/L Normal 135 - 145 mmol/L [facility] Troponin I.cardiac [Mass/Vol] 3.60 pg/mL Low 10.10 - 27.10 pg/mL [facility] Urea nitrogen [Mass/Vol] 12 mg/dL Normal 5 - 21 mg/dL [facility] Urea nitrogen/Creatinine [Mass ratio] 15 mg/mg Normal 10 - 20 [facility] COAGULATIONOrdered By: Ganesh Mandujano on 12-28-2021 Fibrin D-dimer FEU (PPP) [Mass/Vol] 350 ng/mL FEU Normal 215 - 500 ng/mL FEU [facility] HEMATOLOGYOrdered By: SYSTEM SYSTEM on 12-28-2021 Basophils/100 WBC (Bld) 0.5 % Normal 0.0 - 2.0 % [facility] Basophils/Leukocytes Auto (Bld) [Pure # fraction] 0.0 E9/L Normal 0.0 - 0.2 E9/L [facility] Eosinophils/100 WBC (Bld) 3.1 % Normal 0.0 - 8.0 % [facility] Eosinophils/Leukocytes Auto (Bld) [Pure # fraction] 0.3 E9/L Normal 0.0 - 0.5 E9/L [facility] Lymphocytes/100 WBC (Bld) 33.9 % Normal 14.0 - 50.0 % [facility] Lymphocytes/Leukocytes Auto (Bld) [Pure # fraction] 2.8 E9/L Normal 1.0 - 4.0 E9/L [facility] Monocytes/100 WBC (Bld) 6.2 % Normal 4.0 - 14.0 % [facility] Monocytes/Leukocytes Auto (Bld) [Pure # fraction] 0.5 E9/L Normal 0.2 - 1.0 E9/L [facility] Neutrophils/100 WBC (Bld) 56.3 % Normal 36.0 - 75.0 % [facility] Neutrophils/Leukocytes Auto (Bld) [Pure # fraction] 4.7 E9/L Normal 2.0 - 7.5 E9/L [facility] HEMATOLOGYOrdered By: Ganesh Mandujano on 12-28-2021 Erythrocyte distribution width (RBC) [Ratio] 17.2 % High 10.9 - 14.2 % [facility] Hematocrit (Bld) [Volume fraction] 35.5 % Normal 34.0 - 46.0 % [facility] Hemoglobin (Bld) [Mass/Vol] 11.4 g/dL Low 12.0 - 16.0 gm/dL [facility] MCH (RBC) [Entitic mass] 25.0 pg Low 27. 0 - 34.0 pg [facility] MCHC (RBC) [Mass/Vol] 32.2 g/dL Normal 31.4 - 36.0 gm/dL [facility] MCV (RBC) [Entitic vol] 77.9 fL Low 80.0 - 100.0 fL [facility] Platelet mean volume (Bld) [Entitic vol] 8.2 fL Normal 6.4 - 10.8 fL [facility] Platelets (Bld) [#/Vol] 431.0 E9/L Normal 150. 0 - 500.0 E9/L [facility] RBC (Bld) [#/Vol] 4.6 E12/L Normal 4.3 - 5.9 E12/L [facility] WBC corrected for nucl RBC Auto (Bld) [#/Vol] 8.4 E9/L Normal 4.0 - 11.0 E9/L [facility] URINALYSISOrdered By: Ganesh Mandujano on 12-28-2021 Bilirubin Ql (U) Negative (12/28/21 12:49 AM) Normal Negative [facility] Auto SS Clarity (U) Clear (12/28/21 12:49 AM) Normal Clear [facility] Auto SS Color (U) Yellow (12/28/21 12:49 AM) Normal Yellow [facility] Auto SS Epithelial cells.squamous LM.HPF (Urine sed) [#/Area] 3-4 /HPF Normal 0-2/HPF [facility]A Aut o SS Glucose Test strip (U) [Mass/Vol] Negative (12/28/21 12:49 AM) Normal Negative [facility] Auto SS Hemoglobin Ql (U) 1+ *ABN* (12/28/21 12:49 AM) Invalid Interpretation Code Negative [facility] SS Ketones (U) [Mass/Vol] Negative (12/28/21 12:49 AM) Normal Negative [facility]A Auto SS Spiro.plasma/Spiro.R BC (Bld) [Mass ratio] 0-3 /HPF Normal 0-3/HPF [facility] Au to SS Nitrite Ql (U) Negative (12/28/21 12:49 AM) Normal Negative [facility] Auto SS pH (U) 6.0 *NA* (12/28/21 12:49 AM) Invalid Interpretation Code 5.0 - 9.0 [facility] Auto SS Protein (U) [Mass/Vol] Negative (12/28/21 12:49 AM) Normal Negative [facility]A Auto SS Specific gravity (U) [Rel density] <=1.005 *NA* (12/28/21 12:49 AM) Invalid Interpretation Code 1.005 - 1.030 [facility] UA Auto SS UA Spec Desc Clean Catch (12/28/21 12:49 AM) Normal [facility] UA Auto SS Urobilinogen Qn (U) [id number] {Malachi'U}/dL Normal 0.0 - 1.0 EU/dL [facility] UA Auto SS WBC Auto Ql (U) Negative (12/28/21 12:49 AM) Normal Negative [facility] UA Auto SS WBC LM.HPF (Urine sed) [#/Area] 0-5 /HPF Normal 0-5/HPF [facility] UA Auto SS Basophils Auto (Bld) [#/Vol] Ordered By: Kashif Abraham on 12-17-2021 Basophils (Bld) [#/Vol] 0.1 10*3/uL 0.0-0.2 [facility] Basophils/100 WBC Auto (Bld) Ordered By: Kashif Abraham on 12-17-2021 Basophils/100 WBC (Bld) 1.1 % . [facility] Blood hemoglobin measurement (mass/volume)Ordered By: Kashif Abraham on 12-17-2021 Hemoglobin (Bld) [Mass/Vol] 11.5 g/dL 11.8-15.4 [facility] Blood leukocytes automated c ount (number/volume)Ordered By: Kashif Abraham on 12-17-2021 WBC (Bld) [#/Vol] 8.2 10*3/uL 3.8-11.6 [facility] Body fluid albumin measureme nt (mass/volume)Ordered By: Kashif Abraham on 12-17-2021 Albumin (Body fld) [Mass/Vol] 3.8 g/dL 3.2-5.5 [facility] Creatinine and Glomerular fi ltration rate.predicted panel (S/P/Bld)Ordered By: Kashif Abraham on 12-17-2021 Creatinine [Mass/Vol] 0.70 mg/dL 0.44-1.03 [facility] Eosinophils Auto (Bld) [#/Vo l]Ordered By: Kashif Abraham on 12-17-2021 Eosinophils (Bld) [#/Vol] 0.2 10*3/uL 0.0-0.45 [facility] Eosinophils/100 WBC Auto (Bl d)Ordered By: Kashif Abraham on 12-17-2021 Eosinophils/100 WBC (Bld) 2.5 % . [facility] Erythrocyte distribution wid th Auto (RBC) [Ratio]Ordered By: Kashif Abraham on 12-17-2021 Erythrocyte distribution width (RBC) [Ratio] 17.4 % 11.9-15.3 [facility] Estimated glomerular filtrat ion rate (GFR) non- AmericanOrdered By: Kashif Abraham on 12-17-2021 GFR/1.73 sq M.predicted among non-blacks MDRD (S/P/Bld) [Vol rate/Area] > 60 mL/Min [facility] Globulin Calc (S) [Mass/Vol] Ordered By: Kashif Abraham on 12-17-2021 Globulin (S) [Mass/Vol] 3.3 g/dL [facility] Hematocrit Auto (Bld) [Volum e fraction]Ordered By: Kashif Abraham on 12-17-2021 Hematocrit (Bld) [Volume fraction] 35.5 % 34.0-46.4 [facility] Laboratory - Hematology and Cell countsOrdered By: Kashif Abraham on 12-17-2021 Nucleated RBC/100 WBC (Bld) [Ratio] 0.1 % 0-0.5 [facility] Lymphocytes Auto (Bld) [#/Vo l]Ordered By: Kashif Abraham on 12-17-2021 Lymphocytes (Bld) [#/Vol] 2.6 10*3/uL 1.00-4.8 [facility] Lymphocytes/100 WBC Auto (Bl d)Ordered By: Kashif Abraham on 12-17-2021 Lymphocytes/100 WBC (Bld) 31.3 % . [facility] MCH Auto (RBC) [Entitic mass ]Ordered By: Kashif Abraham on 12-17-2021 MCH (RBC) [Entitic mass] 25.2 pg 24.7-34.3 [facility] MCHC Auto (RBC) [Mass/Vol]Or dered By: Kashif Abraham on 12-17-2021 MCHC (RBC) [Mass/Vol] 32.4 g/dL 32.0-35.0 [facility] MCV Auto (RBC) [Entitic vol] Ordered By: Kashif Abraham on 12-17-2021 MCV (RBC) [Entitic vol] 77.7 fL 80-100 [facility] Monocytes Auto (Bld) [#/Vol] Ordered By: Kashif Abraham on 12-17-2021 Monocytes (Bld) [#/Vol] 0.6 10*3/uL 0.0-0.8 [facility] Monocytes/100 WBC Auto (Bld) Ordered By: Kashif Abraham on 12-17-2021 Monocytes/100 WBC (Bld) 7.3 % . [facility] Neutrophils Auto (Bld) [#/Vo l]Or[facility] on 12-17-2021 Neutrophils (Bld) [#/Vol] 4.7 10*3/uL 1.8-7.7 [facility] Neutrophils/100 WBC Auto (Bl d)Ordered By: Kashif Abraham on 12-17-2021 Neutrophils/100 WBC (Bld) 57.8 % . [facility] No Panel InformationOrdered By: Kashif Abraham on 12-17-2021 Estimated GFR () > 60 mL/Min [facility] Comment on above: GFR estimated refere nce range: According to KDOQI guidelines, <60 ml/min/1.73m2 is sufficient to diagnose a patient with chronic kidney disease. Pharmacy Creatinine Clearance (Chem 102.27 [facility] 8.2 10*3/uL 4.5-11.0 [facility] 0.1 % 0-0.5 [facility] > 60 mL/Min [facility] 102.27 [facility] Platelet mean volume Auto (B ld) [Entitic vol]Ordered By: Kashif Abraham on 12-17-2021 Platelet mean volume (Bld) [Entitic vol] 8.1 fL 6.3-10.7 [facility] Platelets Auto (Bld) [#/Vol] Ordered By: Kashif Abraham on 12-17-2021 Platelets (Bld) [#/Vol] 408 10*3/uL 150-450 [facility] Protein [Mass/volume] in Ser um or PlasmaOrdered By: Kashif Abraham on 12-17-2021 Protein [Mass/Vol] 7.1 g/dL 6.1-7.9 [facility] RBC Auto (Bld) [#/Vol]Ordere d By: Kashif Abraham on 12-17-2021 RBC (Bld) [#/Vol] 4.57 10*6/uL 3.60-5.00 [facility] Serum or plasma alanine ocampo otransferase measurement without P-5'-P (enzymatic activiOrdered By: Kashif Abraham on 12-17-2021 ALT No additional P-5'-P [Catalytic activity/Vol] 13 U/L 10-60 [facility] Serum or plasma albumin/glob ulin mass ratioOrdered By: Kashif Abraham on 12-17-2021 Albumin/Globulin [Mass ratio] 1.2 {ratio} [facility] Serum or plasma alkaline álvaro sphatase measurement (enzymatic activity/volume)Ordered By: Kashif Abraham on 12-17-2021 ALP [Catalytic activity/Vol] 71 U/L 32-92 [facility] Serum or plasma anion gap de terminationOrdered By: Kashif Abraham on 12-17-2021 Anion gap [Moles/Vol] 13.9 mmol/L 6.0-15.0 [facility] Serum or plasma aspartate am inotransferase measurement (enzymatic activity/volume)Ordered By: Kashif Abraham on 12-17-2021 AST [Catalytic activity/Vol] 15 U/L 10-42 [facility] Serum or plasma calcium pedro urement (mass/volume)Ordered By: Kashif Abraham on 12-17-2021 Calcium [Mass/Vol] 9.1 mg/dL 8.2-10.2 [facility] Serum or plasma chloride caity surement (moles/volume)Ordered By: Kashif Abraham on 12-17-2021 Chloride [Moles/Vol] 105 mmol/L 95-114 [facility] Serum or plasma creatinine m easurement with calculation of estimated glomerular filtrOrdered By: Kashif Abraham on 12-17-2021 Creatinine and Glomerular filtration rate.predicted panel (S/P/Bld) 0.70 mg/dL 0.44-1.03 [facility] Serum or plasma glucose pedro urement (mass/volume)Ordered By: Kashif Abraham on 12-17-2021 Glucose [Mass/Vol] 92 mg/dL 70-100 [facility] Comment on above: ADA recommended refe rence rangeRandom Glucose Reference Range is dependent on time and content of last meal. Glucose of more than 200 mg/dL in a nonstressed, ambulatory subject supports the diagnosis of Diabetes Mellitus. Serum or plasma potassium me asurement (moles/volume)Ordered By: Kashif Abraham on 12-17-2021 Potassium [Moles/Vol] 3.8 mmol/L 3.5-5.1 [facility] Serum or plasma sodium measu rement (moles/volume)Ordered By: Kashif Abraham on 12-17-2021 Sodium [Moles/Vol] 138 mmol/L 136-146 [facility] Serum or plasma total biliru bin measurement (mass/volume)Ordered By: Kashif Abraham on 12-17-2021 Bilirubin [Mass/Vol] 0.5 mg/dL 0.3-1.2 [facility] Serum or plasma total carbon dioxide measurement (moles/volume)Ordered By: Kashif Abraham on 12-17-2021 CO2 [Moles/Vol] 22.9 mmol/L 22.0-30.0 [facility] Serum or plasma urea nitroge n measurement (mass/volume)Ordered By: Kashif Abraham on 12-17-2021 Urea nitrogen [Mass/Vol] 8 mg/dL 9-23 [facility] CHEMISTRYOrdered By: Lab ROP User on 12-05-2021 Glucose [Mass/Vol] 102 mg/dL High 55 - 99 mg/dL [facility] [place] Sub[place] Comment on above: Result Comment: Parth martinez RN/ POC Device SN [id number] Invalid Interpretation Code [facility] [place] [facility] Subsection POC User ID [id number] Invalid Interpretation Code [facility] [place] [facility] Subsection POC Username MACKENZIE MARIE Invalid Interpretation Code [facility] [place] Subsection COVID-19 SOFIAOrdered By: Eric Branch on 12-02-2021 SARS-CoV+SARS-CoV-2 (COVID-19) Ag IA.rapid Ql (Resp) Negative Negative [facility] Comment on above: This is a duplicate Lena SARS Antigen (MIRIAM) result to be used for statistical tracking purpose only. No Panel InformationOrdered By: Heike Branch on 12-02-2021 SARS Antigen (LFIA) [facility] Albumin [Mass/volume] in Ser um or PlasmaOrdered By: John Cortes on 10-29-2021 Albumin [Mass/Vol] 3.5 g/dL 3.2-5.5 [facility] Automated epithelial cells c ount in urine sediment (number/area)Ordered By: John Cortes on 10-29-2021 Epithelial cells Auto (Urine sed) [#/Area] 1-2 [HPF] 0-2 [facility] Automated erythrocytes count in urine sediment (number/area)Ordered By: John Cortes on 10-29-2021 RBC Auto (Urine sed) [#/Area] 1-2 [HPF] 0-4 [facility] Automated leukocytes count i n urine sediment (number/area)Ordered By: John Cortes on 10-29-2021 WBC Auto (Urine sed) [#/Area] 0-1 [HPF] 0-4 [facility] Basophils Auto (Bld) [#/Vol] Ordered By: John Cortes on 10-29-2021 Basophils (Bld) [#/Vol] 0.1 10*3/uL 0.0-0.2 [facility] Basophils/100 WBC Auto (Bld) Ordered By: John Cortes on 10-29-2021 Basophils/100 WBC (Bld) 0.8 % . [facility] Bilirubin Auto test strip Ql (U)Ordered By: John Cortes on 10-29-2021 Bilirubin Ql (U) Negative Negative [facility] Blood hemoglobin measurement (mass/volume)Ordered By: John Corets on 10-29-2021 Hemoglobin (Bld) [Mass/Vol] 11.4 g/dL 11.8-15.4 [facility] Eosinophils Auto (Bld) [#/Vo l]Ordered By: John Cortes on 10-29-2021 Eosinophils (Bld) [#/Vol] 0.2 10*3/uL 0.0-0.45 [facility] Eosinophils/100 WBC Auto (Bl d)Ordered By: John Cortes on 10-29-2021 Eosinophils/100 WBC (Bld) 2.4 % . [facility] Erythrocyte distribution wid th Auto (RBC) [Ratio]Ordered By: John Cortes on 10-29-2021 Erythrocyte distribution width (RBC) [Ratio] 19.0 % 11.9-15.3 [facility] Estimated glomerular filtrat ion rate (GFR) non- AmericanOrdered By: John Cortes on 10-29-2021 GFR/1.73 sq M.predicted among non-blacks MDRD (S/P/Bld) [Vol rate/Area] > 60 mL/Min [facility] Globulin Calc (S) [Mass/Vol] Ordered By: John Cortes on 10-29-2021 Globulin (S) [Mass/Vol] 3.2 g/dL [facility] Hematocrit Auto (Bld) [Volum e fraction]Ordered By: John Cortes on 10-29-2021 Hematocrit (Bld) [Volume fraction] 35.2 % 34.0-46.4 [facility] Ketones Auto test strip (U) [Mass/Vol]Ordered By: John Cortes on 10-29-2021 Ketones (U) [Mass/Vol] Negative Negative [facility] Lymphocytes Auto (Bld) [#/Vo l]Ordered By: John Cortes on 10-29-2021 Lymphocytes (Bld) [#/Vol] 2.0 10*3/uL 1.00-4.8 [facility] Lymphocytes/100 WBC Auto (Bl d)Ordered By: John Cortes on 10-29-2021 Lymphocytes/100 WBC (Bld) 27.8 % . [facility] MCH Auto (RBC) [Entitic mass ]Ordered By: John Cortes on 10-29-2021 MCH (RBC) [Entitic mass] 25.2 pg 24.7-34.3 [facility] MCHC Auto (RBC) [Mass/Vol]Or dered By: John Cortes on 10-29-2021 MCHC (RBC) [Mass/Vol] 32.4 g/dL 32.0-35.0 [facility] MCV Auto (RBC) [Entitic vol] Ordered By: John Cortes on 10-29-2021 MCV (RBC) [Entitic vol] 77.7 fL 80-100 [facility] Monocytes Auto (Bld) [#/Vol] Ordered By: John Cortes on 10-29-2021 Monocytes (Bld) [#/Vol] 0.5 10*3/uL 0.0-0.8 [facility] Monocytes/100 WBC Auto (Bld) Ordered By: John Cortes on 10-29-2021 Monocytes/100 WBC (Bld) 7.2 % . [facility] Neutrophils Auto (Bld) [#/Vo l]Ordered By: John Cortes on 10-29-2021 Neutrophils (Bld) [#/Vol] 4.5 10*3/uL 1.8-7.7 [facility] Neutrophils/100 WBC Auto (Bl d)Ordered By: John Cortes on 10-29-2021 Neutrophils/100 WBC (Bld) 61.8 % . [facility] No Panel InformationOrdered By: John Cortes on 10-29-2021 7.2 10*3/uL 4.5-11.0 [facility] 0.0 % 0-0.5 [facility] > 60 mL/Min [facility] 115.13 [facility] Platelet mean volume Auto (B ld) [Entitic vol]Ordered By: John Cortes on 10-29-2021 Platelet mean volume (Bld) [Entitic vol] 8.0 fL 6.3-10.7 [facility] Platelets Auto (Bld) [#/Vol] Ordered By: John Cortes on 10-29-2021 Platelets (Bld) [#/Vol] 370 10*3/uL 150-450 [facility] Protein Auto test strip (U) [Mass/Vol]Ordered By: John Cortes on 10-29-2021 Protein (U) [Mass/Vol] Negative Negative [facility] Protein [Mass/volume] in Ser um or PlasmaOrdered By: John Cortes on 10-29-2021 Protein [Mass/Vol] 6.7 g/dL 6.1-7.9 [facility] RBC Auto (Bld) [#/Vol]Ordere d By: John Cortes on 10-29-2021 RBC (Bld) [#/Vol] 4.53 10*6/uL 3.60-5.00 [facility] Serum or plasma alanine ocampo otransferase measurement without P-5'-P (enzymatic activiOrdered By: John Cortes on 10-29-2021 ALT No additional P-5'-P [Catalytic activity/Vol] 13 U/L 10-60 [facility] Serum or plasma albumin/glob ulin mass ratioOrdered By: John Cortes on 10-29-2021 Albumin/Globulin [Mass ratio] 1.1 {ratio} [facility] Serum or plasma alkaline álvaro sphatase measurement (enzymatic activity/volume)Ordered By: John Cortes on 10-29-2021 ALP [Catalytic activity/Vol] 75 U/L 32 [facility] Serum or plasma aspartate am inotransferase measurement (enzymatic activity/volume)Ordered By: John Cortes on 10-29-2021 AST [Catalytic activity/Vol] 13 U/L 10- [facility] Serum or plasma calcium pedro urement (mass/volume)Ordered By: John Cortes on 10-29-2021 Calcium [Mass/Vol] 9.1 mg/dL 8.2-10.2 [facility] Serum or plasma chloride caity surement (moles/volume)Ordered By: John Cortes on 10-29-2021 Chloride [Moles/Vol] 106 mmol/L 95-114 [facility] Serum or plasma creatinine m easurement with calculation of estimated glomerular filtrOrdered By: John Cortes on 10-29-2021 Creatinine and Glomerular filtration rate.predicted panel (S/P/Bld) 0.63 mg/dL 0.44-1.03 [facility] Serum or plasma glucose pedro urement (mass/volume)Ordered By: John Cortes on 10-29-2021 Glucose [Mass/Vol] 94 mg/dL 70-100 [facility] Serum or plasma potassium me asurement (moles/volume)Ordered By: John Cortes on 10-29-2021 Potassium [Moles/Vol] 3.8 mmol/L 3.5-5.1 [facility] Serum or plasma sodium measu rement (moles/volume)Ordered By: John Cortes on 10-29-2021 Sodium [Moles/Vol] 137 mmol/L 136-146 [facility] Serum or plasma total biliru bin measurement (mass/volume)Ordered By: John Cortes on 10-29-2021 Bilirubin [Mass/Vol] 0.5 mg/dL 0.3-1.2 [facility] Serum or plasma total carbon dioxide measurement (moles/volume)Ordered By: John Cortes on 10-29-2021 CO2 [Moles/Vol] 22.8 mmol/L 22.0-30.0 [facility] Serum or plasma urea nitroge n measurement (mass/volume)Ordered By: John Cortes on 10-29-2021 Urea nitrogen [Mass/Vol] 8 mg/dL 9 [facility] Urine appearanceOrdered By: John Cortes on 10-29-2021 Appearance (U) Clear Clear [facility] Urine bacteria detection by automated methodOrdered By: John Cortes on 10-29-2021 Bacteria Auto Ql (U) None seen None Seen [facility] Urine colorOrdered By: Linda Cortes on 10-29-2021 Color (U) Yellow Yellow [facility] Urine glucose measurement by automated test strip (mass/volume)Ordered By: John Cortes on 10-29-2021 Glucose Auto test strip (U) [Mass/Vol] Normal mg/dL Normal [facility] Urine hemoglobin detection b y automated test stripOrdered By: John Cortes on 10-29-2021 Hemoglobin Auto test strip Ql (U) Trace Negative [facility] Urine leukocyte esterase det ection by automated test stripOrdered By: John Cortes on 10-29-2021 Leukocyte esterase Auto test strip Ql (U) Negative Negative [facility] Urine nitrite detection by a utomated test stripOrdered By: John Cortes on 10-29-2021 Nitrite Auto test strip Ql (U) Negative Negative [facility] Urobilinogen Auto test strip (U) [Mass/Vol]Ordered By: John Cortes on 10-29-2021 Urobilinogen (U) [Mass/Vol] Normal mg/dL Normal [facility] WBC Auto (Bld) [#/Vol]Ordere d By: John Cortes on 10-29-2021 WBC (Bld) [#/Vol] 7.2 10*3/uL 3.8-11.6 [facility] pH Auto test strip (U)Ordere d By: John Cortes on 10-29-2021 pH (U) 1.005 [pH] 1.001-1.030 [facility] pH (U) 7.0 [pH] 5.0-9.0 [facility] Albumin [Mass/volume] in Ser um or PlasmaOrdered By: Ani Hall on 10-09-2021 Albumin [Mass/Vol] 3.8 g/dL 3.2-5.5 [facility] Basophils Auto (Bld) [#/Vol] Ordered By: Ani Hall on 10-09-2021 Basophils (Bld) [#/Vol] 0.0 10*3/uL 0.0-0.2 [facility] Basophils/100 WBC Auto (Bld) Ordered By: Ani Hall on 10-09-2021 Basophils/100 WBC (Bld) 0.4 % . [facility] Blood hemoglobin measurement (mass/volume)Ordered By: Ani Hall on 10-09-2021 Hemoglobin (Bld) [Mass/Vol] 11.4 g/dL 11.8-15.4 [facility] Eosinophils Auto (Bld) [#/Vo l]Ordered By: Ani Hall on 10-09-2021 Eosinophils (Bld) [#/Vol] 0.2 10*3/uL 0.0-0.45 [facility] Eosinophils/100 WBC Auto (Bl d)Ordered By: Ani Hall on 10-09-2021 Eosinophils/100 WBC (Bld) 2.7 % . [facility] Erythrocyte distribution wid th Auto (RBC) [Ratio]Ordered By: Ani Hall on 10-09-2021 Erythrocyte distribution width (RBC) [Ratio] 19.8 % 11.9-15.3 [facility] Estimated glomerular filtrat ion rate (GFR) non- AmericanOrdered By: Ani Hall on 10-09-2021 GFR/1.73 sq M.predicted among non-blacks MDRD (S/P/Bld) [Vol rate/Area] > 60 mL/Min [facility] Globulin Calc (S) [Mass/Vol] Ordered By: Ani Hall on 10-09-2021 Globulin (S) [Mass/Vol] 3.3 g/dL [facility] Hematocrit Auto (Bld) [Volum e fraction]Ordered By: Ani Hall on 10-09-2021 Hematocrit (Bld) [Volume fraction] 34.9 % 34.0-46.4 [facility] Lymphocytes Auto (Bld) [#/Vo l]Ordered By: Ani Hall on 10-09-2021 Lymphocytes (Bld) [#/Vol] 2.9 10*3/uL 1.00-4.8 [facility] Lymphocytes/100 WBC Auto (Bl d)Ordered By: Ani Hall on 10-09-2021 Lymphocytes/100 WBC (Bld) 34.5 % . [facility] MCH Auto (RBC) [Entitic mass ]Ordered By: Ani Hall on 10-09-2021 MCH (RBC) [Entitic mass] 24.8 pg 24.7-34.3 [facility] MCHC Auto (RBC) [Mass/Vol]Or dered By: Ani Hall on 10-09-2021 MCHC (RBC) [Mass/Vol] 32.7 g/dL 32.0-35.0 [facility] MCV Auto (RBC) [Entitic vol] Ordered By: Ani Hall on 10-09-2021 MCV (RBC) [Entitic vol] 76.0 fL 80-100 [facility] Monocytes Auto (Bld) [#/Vol] Ordered By: Ani Hall on 10-09-2021 Monocytes (Bld) [#/Vol] 0.6 10*3/uL 0.0-0.8 [facility] Monocytes/100 WBC Auto (Bld) Ordered By: Ani Hall on 10-09-2021 Monocytes/100 WBC (Bld) 7.3 % . [facility] Neutrophils Auto (Bld) [#/Vo l]Ordered By: Ani Hall on 10-09-2021 Neutrophils (Bld) [#/Vol] 4.7 10*3/uL 1.8-7.7 [facility] Neutrophils/100 WBC Auto (Bl d)Ordered By: Ani Hall on 10-09-2021 Neutrophils/100 WBC (Bld) 55.1 % . [facility] No Panel InformationOrdered By: Ani Hall on 10-09-2021 8.5 10*3/uL 4.5-11.0 [facility] 0.0 % 0-0.5 [facility] < 200 ng/mL 0-243 [facility] > 60 mL/Min [facility] 37.0 pg/mL 5-100 [facility] 99.03 [facility] Platelet mean volume Auto (B ld) [Entitic vol]Ordered By: Ani Hall on 10-09-2021 Platelet mean volume (Bld) [Entitic vol] 7.9 fL 6.3-10.7 [facility] Platelets Auto (Bld) [#/Vol] Ordered By: Ani Hall on 10-09-2021 Platelets (Bld) [#/Vol] 443 10*3/uL 150-450 [facility] Protein [Mass/volume] in Ser um or PlasmaOrdered By: Ani Hall on 10-09-2021 Protein [Mass/Vol] 7.1 g/dL 6.1-7.9 [facility] RBC Auto (Bld) [#/Vol]Ordere d By: Ani Hall on 10-09-2021 RBC (Bld) [#/Vol] 4.60 10*6/uL 3.60-5.00 [facility] Serum or plasma alanine ocampo otransferase measurement without P-5'-P (enzymatic activiOrdered By: Ani Hall on 10-09-2021 ALT No additional P-5'-P [Catalytic activity/Vol] 15 U/L 10-60 [facility] Serum or plasma albumin/glob ulin mass ratioOrdered By: Ani Hall on 10-09-2021 Albumin/Globulin [Mass ratio] 1.2 {ratio} [facility] Serum or plasma alkaline álvaro sphatase measurement (enzymatic activity/volume)Ordered By: Ani Hall on 10-09-2021 ALP [Catalytic activity/Vol] 82 U/L 32-92 [facility] Serum or plasma aspartate am inotransferase measurement (enzymatic activity/volume)Ordered By: Ani Hall on 10-09-2021 AST [Catalytic activity/Vol] 17 U/L 10-42 [facility] Serum or plasma calcium pedro urement (mass/volume)Ordered By: Ani Hall on 10-09-2021 Calcium [Mass/Vol] 9.3 mg/dL 8.2-10.2 [facility] Serum or plasma chloride caity surement (moles/volume)Ordered By: Ani Hall on 10-09-2021 Chloride [Moles/Vol] 101 mmol/L 95-114 [facility] Serum or plasma creatinine m easurement with calculation of estimated glomerular filtrOrdered By: Ani Hall on 10-09-2021 Creatinine and Glomerular filtration rate.predicted panel (S/P/Bld) 0.73 mg/dL 0.44-1.03 [facility] Serum or plasma glucose pedro urement (mass/volume)Ordered By: Ani Hall on 10-09-2021 Glucose [Mass/Vol] 94 mg/dL 70-100 [facility] Serum or plasma potassium me asurement (moles/volume)Ordered By: Ani Hall on 10-09-2021 Potassium [Moles/Vol] 3.8 mmol/L 3.5-5.1 [facility] Serum or plasma sodium measu rement (moles/volume)Ordered By: Ani Hall on 10-09-2021 Sodium [Moles/Vol] 135 mmol/L 136-146 [facility] Serum or plasma total biliru bin measurement (mass/volume)Ordered By: Ani Hall on 10-09-2021 Bilirubin [Mass/Vol] 0.6 mg/dL 0.3-1.2 [facility] Serum or plasma total carbon dioxide measurement (moles/volume)Ordered By: Ani Hall on 10-09-2021 CO2 [Moles/Vol] 24.3 mmol/L 22.0-30.0 [facility] Serum or plasma urea nitroge n measurement (mass/volume)Ordered By: Ani Hall on 10-09-2021 Urea nitrogen [Mass/Vol] 8 mg/dL 9-23 [facility] Troponin I.cardiac [Mass/vol ume] in Serum or Plasma by High sensitivity methodOrdered By: Ain Hall on 10-09-2021 Troponin I.cardiac High sensitivity method [Mass/Vol] 7 pg/mL 0-15 [facility] WBC Auto (Bld) [#/Vol]Ordere d By: Ani Hall on 10-09-2021 WBC (Bld) [#/Vol] 8.5 10*3/uL 3.8-11.6 [facility] Albumin [Mass/volume] in Ser um or PlasmaOrdered By: John Phelan on 10-08-2021 Albumin [Mass/Vol] 3.9 g/dL 3.2-5.5 [facility] Basophils Auto (Bld) [#/Vol] Ordered By: John Phelan on 10-08-2021 Basophils (Bld) [#/Vol] 0.1 10*3/uL 0.0-0.2 [facility] Basophils/100 WBC Auto (Bld) Ordered By: John Phelan on 10-08-2021 Basophils/100 WBC (Bld) 0.7 % . [facility] Blood hemoglobin measurement (mass/volume)Ordered By: John Phelan on 10-08-2021 Hemoglobin (Bld) [Mass/Vol] 11.7 g/dL 11.8-15.4 [facility] COVID-19 SOFIAOrdered By: Mark Phelan on 10-08-2021 SARS-CoV+SARS-CoV-2 (COVID-19) Ag IA.rapid Ql (Resp) Negative Negative [facility] Eosinophils Auto (Bld) [#/Vo l]Ordered By: John Phelan on 10-08-2021 Eosinophils (Bld) [#/Vol] 0.2 10*3/uL 0.0-0.45 [facility] Eosinophils/100 WBC Auto (Bl d)Ordered By: John Phelan on 10-08-2021 Eosinophils/100 WBC (Bld) 2.0 % . [facility] Erythrocyte distribution wid th Auto (RBC) [Ratio]Ordered By: John Phelan on 10-08-2021 Erythrocyte distribution width (RBC) [Ratio] 19.6 % 11.9-15.3 [facility] Estimated glomerular filtrat ion rate (GFR) non- AmericanOrdered By: John Phelan on 10-08-2021 GFR/1.73 sq M.predicted among non-blacks MDRD (S/P/Bld) [Vol rate/Area] > 60 mL/Min [facility] Globulin Calc (S) [Mass/Vol] Ordered By: John Phelan on 10-08-2021 Globulin (S) [Mass/Vol] 3.3 g/dL [facility] Hematocrit Auto (Bld) [Volum e fraction]Ordered By: John Phelan on 10-08-2021 Hematocrit (Bld) [Volume fraction] 34.4 % 34.0-46.4 [facility] Lymphocytes Auto (Bld) [#/Vo l]Ordered By: John Phelan on 10-08-2021 Lymphocytes (Bld) [#/Vol] 2.9 10*3/uL 1.00-4.8 [facility] Lymphocytes/100 WBC Auto (Bl d)Ordered By: John Phelan on 10-08-2021 Lymphocytes/100 WBC (Bld) 28.7 % . [facility] MCH Auto (RBC) [Entitic mass ]Ordered By: John Phelan on 10-08-2021 MCH (RBC) [Entitic mass] 25.6 pg 24.7-34.3 [facility] MCHC Auto (RBC) [Mass/Vol]Or dered By: John Phelan on 10-08-2021 MCHC (RBC) [Mass/Vol] 33.8 g/dL 32.0-35.0 [facility] MCV Auto (RBC) [Entitic vol] Ordered By: John Phelan on 10-08-2021 MCV (RBC) [Entitic vol] 75.8 fL 80-100 [facility] Monocytes Auto (Bld) [#/Vol] Ordered By: John Phelan on 10-08-2021 Monocytes (Bld) [#/Vol] 0.7 10*3/uL 0.0-0.8 [facility] Monocytes/100 WBC Auto (Bld) Ordered By: John Phelan on 10-08-2021 Monocytes/100 WBC (Bld) 6.6 % . [facility] Neutrophils Auto (Bld) [#/Vo l]Ordered By: John Phelan on 10-08-2021 Neutrophils (Bld) [#/Vol] 6.3 10*3/uL 1.8-7.7 [facility] Neutrophils/100 WBC Auto (Bl d)Ordered By: John Phelan on 10-08-2021 Neutrophils/100 WBC (Bld) 62.0 % . [facility] No Panel InformationOrdered By: John Phelan on 10-08-2021 10.1 10*3/uL 4.5-11.0 [facility] 0.0 % 0-0.5 [facility] > 60 mL/Min [facility] 49.0 U/L 22-51 [facility] 102.34 [facility] Platelet mean volume Auto (B ld) [Entitic vol]Ordered By: John Phelan on 10-08-2021 Platelet mean volume (Bld) [Entitic vol] 8.0 fL 6.3-10.7 [facility] Platelets Auto (Bld) [#/Vol] Ordered By: John Phelan on 10-08-2021 Platelets (Bld) [#/Vol] 462 10*3/uL 150-450 [facility] Protein [Mass/volume] in Ser um or PlasmaOrdered By: John Phelan on 10-08-2021 Protein [Mass/Vol] 7.2 g/dL 6.1-7.9 [facility] RBC Auto (Bld) [#/Vol]Ordere d By: John Phelan on 10-08-2021 RBC (Bld) [#/Vol] 4.55 10*6/uL 3.60-5.00 [facility] Serum or plasma alanine ocampo otransferase measurement without P-5'-P (enzymatic activiOrdered By: John Phelan on 10-08-2021 ALT No additional P-5'-P [Catalytic activity/Vol] 16 U/L 10-60 [facility] Serum or plasma albumin/glob ulin mass ratioOrdered By: John Phelan on 10-08-2021 Albumin/Globulin [Mass ratio] 1.2 {ratio} [facility] Serum or plasma alkaline álvaro sphatase measurement (enzymatic activity/volume)Ordered By: John Phelan on 10-08-2021 ALP [Catalytic activity/Vol] 84 U/L 32-92 [facility] Serum or plasma aspartate am inotransferase measurement (enzymatic activity/volume)Ordered By: John Phelan on 10-08-2021 AST [Catalytic activity/Vol] 17 U/L 10-42 [facility] Serum or plasma calcium pedro urement (mass/volume)Ordered By: John Phelan on 10-08-2021 Calcium [Mass/Vol] 9.2 mg/dL 8.2-10.2 [facility] Serum or plasma chloride caity surement (moles/volume)Ordered By: John Phelan on 10-08-2021 Chloride [Moles/Vol] 101 mmol/L 95-114 [facility] Serum or plasma creatinine m easurement with calculation of estimated glomerular filtrOrdered By: John Phelan on 10-08-2021 Creatinine and Glomerular filtration rate.predicted panel (S/P/Bld) 0.71 mg/dL 0.44-1.03 [facility] Serum or plasma glucose pedro urement (mass/volume)Ordered By: John Phelan on 10-08-2021 Glucose [Mass/Vol] 107 mg/dL 70-100 [facility] Serum or plasma potassium me asurement (moles/volume)Ordered By: John Phelan on 10-08-2021 Potassium [Moles/Vol] 3.5 mmol/L 3.5-5.1 [facility] Serum or plasma sodium measu rement (moles/volume)Ordered By: John Phelan on 10-08-2021 Sodium [Moles/Vol] 139 mmol/L 136-146 [facility] Serum or plasma total biliru bin measurement (mass/volume)Ordered By: John Phelan on 10-08-2021 Bilirubin [Mass/Vol] 0.3 mg/dL 0.3-1.2 [facility] Serum or plasma total carbon dioxide measurement (moles/volume)Ordered By: John Phelan on 10-08-2021 CO2 [Moles/Vol] 25.6 mmol/L 22.0-30.0 [facility] Serum or plasma urea nitroge n measurement (mass/volume)Ordered By: John Phelan on 10-08-2021 Urea nitrogen [Mass/Vol] 9 mg/dL 12-22 [facility] Troponin I.cardiac [Mass/vol ume] in Serum or Plasma by High sensitivity methodOrdered By: John Phelan on 10-08-2021 Troponin I.cardiac High sensitivity method [Mass/Vol] 9 pg/mL 0-15 [facility] WBC Auto (Bld) [#/Vol]Ordere d By: John Phelan on 10-08-2021 WBC (Bld) [#/Vol] 10.1 10*3/uL 3.8-11.6 [facility] Albumin [Mass/volume] in Ser um or PlasmaOrdered By: John Cortes on 09-12-2021 Albumin [Mass/Vol] 3.6 g/dL 3.2-5.5 [facility] Basophils Auto (Bld) [#/Vol] Ordered By: John Cortes on 09-12-2021 Basophils (Bld) [#/Vol] 0.1 10*3/uL 0.0-0.2 [facility] Basophils/100 WBC Auto (Bld) Ordered By: John Cortes on 09-12-2021 Basophils/100 WBC (Bld) 0.8 % . [facility] Bilirubin Test strip Ql (U)O rdered By: John Cortes on 09-12-2021 Bilirubin Ql (U) Negative Negative [facility] Blood hemoglobin measurement (mass/volume)Ordered By: John Cortes on 09-12-2021 Hemoglobin (Bld) [Mass/Vol] 10.8 g/dL 11.8-15.4 [facility] Color Auto (U)Ordered By: Telly Cortes on 09-12-2021 Color (U) Yellow Yellow [facility] Eosinophils Auto (Bld) [#/Vo l]Ordered By: John Cortes on 09-12-2021 Eosinophils (Bld) [#/Vol] 0.3 10*3/uL 0.0-0.45 [facility] Eosinophils/100 WBC Auto (Bl d)Ordered By: John Cortes on 09-12-2021 Eosinophils/100 WBC (Bld) 4.0 % . [facility] Erythrocyte distribution wid th Auto (RBC) [Ratio]Ordered By: John Cortes on 09-12-2021 Erythrocyte distribution width (RBC) [Ratio] 18.7 % 11.9-15.3 [facility] Estimated glomerular filtrat ion rate (GFR) non- AmericanOrdered By: John Cortes on 09-12-2021 GFR/1.73 sq M.predicted among non-blacks MDRD (S/P/Bld) [Vol rate/Area] > 60 mL/Min [facility] Globulin Calc (S) [Mass/Vol] Ordered By: John Cortes on 09-12-2021 Globulin (S) [Mass/Vol] 3.2 g/dL [facility] Hematocrit Auto (Bld) [Volum e fraction]Ordered By: John Cortes on 09-12-2021 Hematocrit (Bld) [Volume fraction] 33.6 % 34.0-46.4 [facility] Ketones Auto test strip (U) [Mass/Vol]Ordered By: John Cortes on 09-12-2021 Ketones (U) [Mass/Vol] Trace Negative [facility] Lymphocytes Auto (Bld) [#/Vo l]Ordered By: John Cortes on 09-12-2021 Lymphocytes (Bld) [#/Vol] 3.2 10*3/uL 1.00-4.8 [facility] Lymphocytes/100 WBC Auto (Bl d)Ordered By: John Cortes on 09-12-2021 Lymphocytes/100 WBC (Bld) 38.3 % . [facility] MCH Auto (RBC) [Entitic mass ]Ordered By: John Cortes on 09-12-2021 MCH (RBC) [Entitic mass] 23.9 pg 24.7-34.3 [facility] MCHC Auto (RBC) [Mass/Vol]Or dered By: John Cortes on 09-12-2021 MCHC (RBC) [Mass/Vol] 32.2 g/dL 32.0-35.0 [facility] MCV Auto (RBC) [Entitic vol] Ordered By: John Cortes on 06-14-2022 MCV (RBC) [Entitic vol] 74.2 fL 80-100 [facility] Monocytes Auto (Bld) [#/Vol] Ordered By: John Cortes on 09-12-2021 Monocytes (Bld) [#/Vol] 0.5 10*3/uL 0.0-0.8 [facility] Monocytes/100 WBC Auto (Bld) Ordered By: John Cortes on 09-12-2021 Monocytes/100 WBC (Bld) 6.1 % . [facility] Neutrophils Auto (Bld) [#/Vo l]Ordered By: John Cortes on 09-12-2021 Neutrophils (Bld) [#/Vol] 4.2 10*3/uL 1.8-7.7 [facility] Neutrophils/100 WBC Auto (Bl d)Ordered By: John Cortes on 09-12-2021 Neutrophils/100 WBC (Bld) 50.8 % . [facility] Nitrite Test strip Ql (U)Ord ered By: John Cortes on 09-12-2021 Nitrite Ql (U) Negative Negative [facility] No Panel InformationOrdered By: John Cortes on 09-12-2021 8.2 10*3/uL 4.5-11.0 [facility] 0.0 % 0-0.5 [facility] > 60 mL/Min [facility] 58.0 U/L 22-51 [facility] 93.16 [facility] Platelet mean volume Auto (B ld) [Entitic vol]Ordered By: John Cortes on 09-12-2021 Platelet mean volume (Bld) [Entitic vol] 8.1 fL 6.3-10.7 [facility] Platelets Auto (Bld) [#/Vol] Ordered By: John Cortes on 09-12-2021 Platelets (Bld) [#/Vol] 414 10*3/uL 150-450 [facility] Protein Auto test strip (U) [Mass/Vol]Ordered By: John Cortes on 09-12-2021 Protein (U) [Mass/Vol] Negative Negative [facility] Protein [Mass/volume] in Ser um or PlasmaOrdered By: John Cortes on 09-12-2021 Protein [Mass/Vol] 6.8 g/dL 6.1-7.9 [facility] RBC Auto (Bld) [#/Vol]Ordere d By: John Cortes on 09-12-2021 RBC (Bld) [#/Vol] 4.53 10*6/uL 3.60-5.00 [facility] Serum or plasma alanine ocampo otransferase measurement without P-5'-P (enzymatic activiOrdered By: John Cortes on 09-12-2021 ALT No additional P-5'-P [Catalytic activity/Vol] 16 U/L 10-60 [facility] Serum or plasma albumin/glob ulin mass ratioOrdered By: John Cortes on 09-12-2021 Albumin/Globulin [Mass ratio] 1.1 {ratio} [facility] Serum or plasma alkaline álvaro sphatase measurement (enzymatic activity/volume)Ordered By: John Cortes on 09-12-2021 ALP [Catalytic activity/Vol] 85 U/L 32-92 [facility] Serum or plasma aspartate am inotransferase measurement (enzymatic activity/volume)Ordered By: John Cortes on 09-12-2021 AST [Catalytic activity/Vol] 16 U/L 10-42 [facility] Serum or plasma calcium pedro urement (mass/volume)Ordered By: John Cortes on 09-12-2021 Calcium [Mass/Vol] 8.9 mg/dL 8.2-10.2 [facility] Serum or plasma chloride caity surement (moles/volume)Ordered By: John Cortes on 09-12-2021 Chloride [Moles/Vol] 102 mmol/L 95-114 [facility] Serum or plasma creatinine m easurement with calculation of estimated glomerular filtrOrdered By: John Cortes on 09-12-2021 Creatinine and Glomerular filtration rate.predicted panel (S/P/Bld) 0.79 mg/dL 0.44-1.03 [facility] Serum or plasma glucose pedro urement (mass/volume)Ordered By: John Cortes on 09-12-2021 Glucose [Mass/Vol] 127 mg/dL 70-100 [facility] Serum or plasma potassium me asurement (moles/volume)Ordered By: John Cortes on 09-12-2021 Potassium [Moles/Vol] 3.7 mmol/L 3.5-5.1 [facility] Serum or plasma sodium measu rement (moles/volume)Ordered By: John Cortes on 09-12-2021 Sodium [Moles/Vol] 138 mmol/L 136-146 [facility] Serum or plasma total biliru bin measurement (mass/volume)Ordered By: John Cortes on 09-12-2021 Bilirubin [Mass/Vol] 0.3 mg/dL 0.3-1.2 [facility] Serum or plasma total carbon dioxide measurement (moles/volume)Ordered By: John Cortes on 09-12-2021 CO2 [Moles/Vol] 22.8 mmol/L 22.0-30.0 [facility] Serum or plasma urea nitroge n measurement (mass/volume)Ordered By: John Cortes on 09-12-2021 Urea nitrogen [Mass/Vol] 10 mg/dL 9-23 [facility] Specific gravity Auto test s trip (U) [Rel density]Ordered By: John Cortes on 09-12-2021 Specific gravity (U) [Rel density] 1.022 1.001-1.030 [facility] Urine clarity by refractomet ry automatedOrdered By: John Cortes on 09-12-2021 Clarity Refractometry automated (U) Clear Clear [facility] Urine glucose measurement by automated test strip (mass/volume)Ordered By: John Cortes on 09-12-2021 Glucose Auto test strip (U) [Mass/Vol] Normal mg/dL Normal [facility] Urine hemoglobin detection b y automated test stripOrdered By: John Cortes on 09-12-2021 Hemoglobin Auto test strip Ql (U) Negative Negative [facility] Urine leukocyte esterase det ection by automated test stripOrdered By: John Cortes on 09-12-2021 Leukocyte esterase Auto test strip Ql (U) Negative Negative [facility] Urobilinogen Auto test strip (U) [Mass/Vol]Ordered By: John Cortes on 09-12-2021 Urobilinogen (U) [Mass/Vol] Normal mg/dL Normal [facility] WBC Auto (Bld) [#/Vol]Ordere d By: John Cortes on 09-12-2021 WBC (Bld) [#/Vol] 8.2 10*3/uL 3.8-11.6 [facility] pH Auto test strip (U)Ordere d By: John Cortes on 09-12-2021 pH (U) 5.5 [pH] 5.0-9.0 [facility] Vital Signs Date Time Vital Sign Value Performing Clinician Facility 12-15-2024 02:24-0400 Diastolic blood pressure 72 mm[Hg] [facility] Work [facility]: [facility] 12-15-2024 02:24-0400 Heart rate 65 /min [facility] Work Phone: [facility] 12-15-2024 02:24-0400 Respiratory rate 16 /min [facility] Work [facility]: [facility] 12-15-2024 02:24-0400 SaO2% (BldA) [Mass fraction] 97 % [facility] Work Phone: [facility] 12-15-2024 02:24-0400 Systolic blood pressure 114 mm[Hg] [facility] Work [facility]: [facility] 12-14-2024 21:42-0400 Body height 160.02 cm [facility] Work Phone: [facility] 12-14-2024 21:42-0400 Body temperature 98 [degF] [facility] Work [facility]: [facility] 12-14-2024 21:42-0400 Body weight 89.81 kg [facility] Work Phone: [facility] 12-04-2024 05:39-0400 Diastolic blood pressure 63 mm[Hg] [facility]: [facility] 12-04-2024 05:39-0400 Heart rate 57 /min [facility]: [facility] 12-04-2024 05:39-0400 Respiratory rate 20 /min [facility]: [facility] 12-04-2024 05:39-0400 SaO2% (BldA) [Mass fraction] 98 % [facility]: [facility] 12-04-2024 05:39-0400 Systolic blood pressure 141 mm[Hg] [facility] Work [facility]: [facility] 12-04-2024 02:04-0400 Body height 160.02 cm [facility]: [facility] 12-04-2024 02:04-0400 Body weight 90.15 kg [facility] Work Phone: [facility] 12-01-2024 03:00-0400 Diastolic blood pressure 57 mm[Hg] [facility]: [facility] 12-01-2024 03:00-0400 Heart rate 72 /min [facility] Work Phone: [facility] 12-01-2024 03:00-0400 Respiratory rate 18 /min [facility]: [facility] 12-01-2024 03:00-0400 SaO2% (BldA) [Mass fraction] 100 % [facility]: [facility] 12-01-2024 03:00-0400 Systolic blood pressure 118 mm[Hg] [facility]: [facility] 12-01-2024 00:57-0400 Body height 160.02 cm [facility] Work [facility]: [facility] 12-01-2024 00:57-0400 Body temperature 98 [degF] [facility]: [facility] 12-01-2024 00:57-0400 Body weight 86.18 kg [facility]: [facility] 11-23-2024 05:38-0400 Diastolic blood pressure 60 mm[Hg] [facility]: [facility] 11-23-2024 05:38-0400 Heart rate 66 /min [facility]: [facility] 11-23-2024 05:38-0400 Respiratory rate 18 /min [facility]: [facility] 11-23-2024 05:38-0400 SaO2% (BldA) [Mass fraction] 97 % [facility]: [facility] 11-23-2024 05:38-0400 Systolic blood pressure 121 mm[Hg] [facility]: [facility] 11-23-2024 03:08-0400 Body height 160.02 cm [facility]: [facility] 11-23-2024 03:08-0400 Body temperature 97.9 [degF] [facility]: [facility] 11-23-2024 03:08-0400 Body weight 90.9 kg [facility] Work Phone: [facility] 11-15-2024 21:01-0400 Diastolic blood pressure 57 mm[Hg] [facility]: [facility] 11-15-2024 21:01-0400 Heart rate 98 /min [facility]: [facility] 11-15-2024 21:01-0400 Respiratory rate 18 /min [facility]: [facility] 11-15-2024 21:01-0400 SaO2% (BldA) [Mass fraction] 98 % [facility]: [facility] 11-15-2024 21:01-0400 Systolic blood pressure 112 mm[Hg] [facility] Work [facility]: [facility] 11-15-2024 19:47-0400 Body temperature 97.9 [degF] [facility]: [facility] 11-15-2024 19:46-0400 Body height 160.02 cm [facility]: [facility] 11-15-2024 19:46-0400 Body weight 86.18 kg [facility] Phone: [facility] 11-12-2024 07:10-0400 Body height 160.02 cm [facility]: [facility] 11-12-2024 07:10-0400 Body temperature 97.6 [degF] [facility]: [facility] 11-12-2024 07:10-0400 Body weight 86.18 kg [facility] Work Phone: [facility] 11-12-2024 07:10-0400 Diastolic blood pressure 77 mm[Hg] [facility]: [facility] 11-12-2024 07:10-0400 Heart rate 88 /min [facility]: [facility] 11-12-2024 07:10-0400 Respiratory rate 18 /min [facility]: [facility] 11-12-2024 07:10-0400 SaO2% (BldA) [Mass fraction] 98 % [facility]: [facility] 11-12-2024 07:10-0400 Systolic blood pressure 149 mm[Hg] [facility] Work [facility]: [facility] 11-03-2024 04:03-0400 Diastolic blood pressure 58 mm[Hg] [facility]: [facility] 11-03-2024 04:03-0400 Heart rate 63 /min [facility]: [facility] 11-03-2024 04:03-0400 SaO2% (BldA) [Mass fraction] 98 % [facility]: [facility] 11-03-2024 04:03-0400 Systolic blood pressure 117 mm[Hg] [facility]: [facility] 11-02-2024 23:29-0400 Body height 160.02 cm [facility]: [facility] 11-02-2024 23:29-0400 Body temperature 98.2 [degF] [facility]: [facility] 11-02-2024 23:29-0400 Body weight 90.8 kg [facility] Work Phone: [facility] 11-02-2024 23:29-0400 Respiratory rate 18 /min [facility]: [facility] 10-29-2024 03:00-0400 Heart rate 80 /min [facility]: [facility] 10-29-2024 03:00-0400 Respiratory rate 16 /min [facility]: [facility] 10-29-2024 03:00-0400 SaO2% (BldA) [Mass fraction] 97 % [facility]: [facility] 10-29-2024 00:37-0400 Body height 160.02 cm [facility]: [facility] 10-29-2024 00:37-0400 Body temperature 98.1 [degF] [facility]: [facility] 10-29-2024 00:37-0400 Body weight 86.18 kg [facility] Work Phone: [facility] 10-29-2024 00:37-0400 Diastolic blood pressure 84 mm[Hg] [facility]: [facility] 10-29-2024 00:37-0400 Systolic blood pressure 142 mm[Hg] [facility]: [facility] 10-07-2024 04:43-0400 Diastolic blood pressure 67 mm[Hg] [facility]: [facility] 10-07-2024 04:43-0400 Heart rate 68 /min [facility]: [facility] 10-07-2024 04:43-0400 Respiratory rate 18 /min [facility]: [facility] 10-07-2024 04:43-0400 SaO2% (BldA) [Mass fraction] 98 % [facility]: [facility] 10-07-2024 04:43-0400 Systolic blood pressure 148 mm[Hg] [facility]: [facility] 10-07-2024 03:16-0400 Body height 160.02 cm [facility]: [facility] 10-07-2024 03:16-0400 Body temperature 97.7 [degF] [facility]: [facility] 10-07-2024 03:16-0400 Body weight 96.5 kg [facility]: [facility] 09-21-2024 02:40-0400 Body height 160.02 cm [facility]: [facility] 09-21-2024 02:40-0400 Body temperature 98 [degF] [facility] Work [facility]: [facility] 09-21-2024 02:40-0400 Body weight 94.2 kg [facility] Work Phone: [facility] 09-21-2024 02:40-0400 Diastolic blood pressure 71 mm[Hg] [facility]: [facility] 09-21-2024 02:40-0400 Heart rate 107 /min [facility]: [facility] 09-21-2024 02:40-0400 Respiratory rate 20 /min [facility]: [facility] 09-21-2024 02:40-0400 SaO2% (BldA) [Mass fraction] 95 % [facility]: [facility] 09-21-2024 02:40-0400 Systolic blood pressure 142 mm[Hg] [facility] Work [facility]: [facility] 09-01-2024 06:00-0400 Diastolic blood pressure 58 mm[Hg] [facility] Work [facility]: [facility] 09-01-2024 06:00-0400 Heart rate 68 /min [facility]: [facility] 09-01-2024 06:00-0400 Respiratory rate 20 /min [facility]: [facility] 09-01-2024 06:00-0400 SaO2% (BldA) [Mass fraction] 96 % [facility] Phone: [facility] 09-01-2024 06:00-0400 Systolic blood pressure 121 mm[Hg] [facility]: [facility] 09-01-2024 02:53-0400 Body height 160.02 cm [facility]: [facility] 09-01-2024 02:53-0400 Body temperature 97.9 [degF] [facility]: [facility] 09-01-2024 02:53-0400 Body weight 88.9 kg [facility] Work Phone: [facility] 08-21-2024 01:14-0400 Body height 160.02 cm [facility] Work [facility]: [facility] 08-21-2024 01:14-0400 Body weight 94.8 kg [facility] Work Phone: [facility] 08-21-2024 01:13-0400 Body temperature 98.2 [degF] [facility]: [facility] 08-21-2024 01:13-0400 Diastolic blood pressure 80 mm[Hg] [facility] Work [facility]: [facility] 08-21-2024 01:13-0400 Heart rate 99 /min [facility] Work [facility]: [facility] 08-21-2024 01:13-0400 Respiratory rate 18 /min [facility]: [facility] 08-21-2024 01:13-0400 SaO2% (BldA) [Mass fraction] 96 % [facility]: [facility] 08-21-2024 01:13-0400 Systolic blood pressure 144 mm[Hg] [facility]: [facility] 06-19-2024 00:42-0400 Body temperature 97.7 [degF] [facility]: [facility] 06-19-2024 00:42-0400 Diastolic blood pressure 84 mm[Hg] [facility] Work [facility]: [facility] 06-19-2024 00:42-0400 Heart rate 97 /min [facility]: [facility] 06-19-2024 00:42-0400 Respiratory rate 16 /min [facility]: [facility] 06-19-2024 00:42-0400 SaO2% (BldA) [Mass fraction] 97 % [facility]: [facility] 06-19-2024 00:42-0400 Systolic blood pressure 170 mm[Hg] [facility]: [facility] 06-19-2024 00:41-0400 Body height 160.02 cm [facility]: [facility] 06-19-2024 00:41-0400 Body weight 96.8 kg [facility]: [facility] 06-15-2024 05:20-0400 Diastolic blood pressure 55 mm[Hg] [facility]: [facility] 06-15-2024 05:20-0400 Heart rate 83 /min [facility]: [facility] 06-15-2024 05:20-0400 Respiratory rate 18 /min [facility]: [facility] 06-15-2024 05:20-0400 SaO2% (BldA) [Mass fraction] 95 % [facility]: [facility] 06-15-2024 05:20-0400 Systolic blood pressure 107 mm[Hg] [facility]: [facility] 06-15-2024 03:47-0400 Body height 160.02 cm [facility]: [facility] 06-15-2024 03:47-0400 Body temperature 97.7 [degF] [facility]: [facility] 06-15-2024 03:47-0400 Body weight 94.8 kg [facility]: [facility] 06-10-2024 13:50-0400 Diastolic blood pressure 67 mm[Hg] [facility]: [facility] 06-10-2024 13:50-0400 Heart rate 79 /min [facility]: [facility] 06-10-2024 13:50-0400 Respiratory rate 18 /min [facility]: [facility] 06-10-2024 13:50-0400 SaO2% (BldA) [Mass fraction] 94 % [facility]: [facility] 06-10-2024 13:50-0400 Systolic blood pressure 140 mm[Hg] [facility]: [facility] 06-10-2024 07:13-0400 Body height 160.02 cm [facility]: [facility] 06-10-2024 07:13-0400 Body temperature 97.6 [degF] [facility]: [facility] 06-10-2024 07:13-0400 Body weight 862.73 kg [facility]: [facility] 05-13-2024 20:24-0500 Body height 160.02 cm [facility]: [facility] 05-13-2024 20:24-0500 Body temperature 97.7 [degF] [facility]: [facility] 05-13-2024 20:24-0500 Body weight 91.15 kg [facility]: [facility] 05-13-2024 20:24-0500 Diastolic blood pressure 76 mm[Hg] [facility]: [facility] 05-13-2024 20:24-0500 Heart rate 98 /min [facility]: [facility] 05-13-2024 20:24-0500 Respiratory rate 16 /min [facility]: [facility] 05-13-2024 20:24-0500 SaO2% (BldA) [Mass fraction] 96 % [facility]: [facility] 05-13-2024 20:24-0500 Systolic blood pressure 133 mm[Hg] [facility]: [facility] 05-10-2024 06:30-0500 Diastolic blood pressure 87 mm[Hg] [facility]: [facility] 05-10-2024 06:30-0500 Heart rate 78 /min [facility]: [facility] 05-10-2024 06:30-0500 Respiratory rate 20 /min [facility]: [facility] 05-10-2024 06:30-0500 SaO2% (BldA) [Mass fraction] 97 % [facility]: [facility] 05-10-2024 06:30-0500 Systolic blood pressure 158 mm[Hg] [facility]: [facility] 05-10-2024 05:32-0500 Body temperature 97.8 [degF] [facility]: [facility] 05-10-2024 05:26-0500 Body height 160.02 cm [facility]: [facility] 05-10-2024 05:26-0500 Body weight 87.99 kg [facility]: [facility] 05-08-2024 05:28-0500 Diastolic blood pressure 73 mm[Hg] [facility]: [facility] 05-08-2024 05:28-0500 Heart rate 74 /min [facility]: [facility] 05-08-2024 05:28-0500 Respiratory rate 20 /min [facility]: [facility] 05-08-2024 05:28-0500 SaO2% (BldA) [Mass fraction] 98 % [facility]: [facility] 05-08-2024 05:28-0500 Systolic blood pressure 121 mm[Hg] [facility]: [facility] 05-08-2024 01:08-0500 Body temperature 98 [degF] [facility]: [facility] 05-08-2024 01:07-0500 Body height 160.02 cm [facility]: [facility] 05-08-2024 01:07-0500 Body weight 93 kg [facility]: [facility] 02-20-2024 04:44-0500 Diastolic blood pressure 92 mm[Hg] [facility]: [facility] 02-20-2024 04:44-0500 Heart rate 94 /min [facility]: [facility] 02-20-2024 04:44-0500 Respiratory rate 22 /min [facility]: [facility] 02-20-2024 04:44-0500 SaO2% (BldA) [Mass fraction] 98 % [facility]: [facility] 02-20-2024 04:44-0500 Systolic blood pressure 164 mm[Hg] [facility]: [facility] 02-20-2024 02:58-0500 Body height 160.02 cm [facility]: [facility] 02-20-2024 02:58-0500 Body temperature 97.9 [degF] [facility] Work [facility]: [facility] 02-20-2024 02:58-0500 Body weight 90.05 kg [facility] Work [facility]: [facility] 02-14-2024 22:56-0500 Body height 160.02 cm [facility] Work [facility]: [facility] 02-14-2024 22:56-0500 Body temperature 98.3 [degF] [facility] Work Phone: [facility] 02-14-2024 22:56-0500 Body weight 87.99 kg [facility] Phone: [facility] 02-14-2024 22:56-0500 Diastolic blood pressure 80 mm[Hg] [facility] Work Phone: [facility] 02-14-2024 22:56-0500 Heart rate 83 /min [facility] Work Phone: [facility] 02-14-2024 22:56-0500 Respiratory rate 18 /min [facility] Work Phone: [facility] 02-14-2024 22:56-0500 SaO2% (BldA) [Mass fraction] 97 % [facility] Work Phone: [facility] 02-14-2024 22:56-0500 Systolic blood pressure 146 mm[Hg] [facility] Work Phone: [facility] 02-10-2024 03:30-0500 Diastolic blood pressure 55 mm[Hg] [facility] Work Phone: [facility] 02-10-2024 03:30-0500 Heart rate 80 /min [facility] Work Phone: [facility] 02-10-2024 03:30-0500 Respiratory rate 18 /min [facility] Work Phone: [facility] 02-10-2024 03:30-0500 SaO2% (BldA) [Mass fraction] 98 % [facility] Work Phone: [facility] 02-10-2024 03:30-0500 Systolic blood pressure 117 mm[Hg] [facility] Work Phone: [facility] 02-10-2024 01:25-0500 Body height 160.02 cm [facility] Work Phone: [facility] 02-10-2024 01:25-0500 Body temperature 97.5 [degF] [facility] Work Phone: [facility] 02-10-2024 01:25-0500 Body weight 88.9 kg [facility] Work Phone: [facility] 01-27-2024 03:31-0400 Body height 160.02 cm [facility] Work Phone: [facility] 01-27-2024 03:31-0400 Body temperature 97.7 [degF] Services [employer] Work Phone: [facility] 01-27-2024 03:31-0400 Body weight 89.45 kg Services [employer] Work Phone: [facility] 01-27-2024 03:31-0400 Diastolic blood pressure 79 mm[Hg] Services [facility] Work Phone: [facility] 01-27-2024 03:31-0400 Heart rate 83 /min [facility] [employer] Work Phone: [facility] 01-27-2024 03:31-0400 Respiratory rate 20 /min Services [facility] Work Phone: [facility] 01-27-2024 03:31-0400 SaO2% (BldA) [Mass fraction] 98 % [facility] [employer] Work Phone: [facility] 01-27-2024 03:31-0400 Systolic blood pressure 170 mm[Hg] Services [employer] Work Phone: [facility] 01-19-2024 03:41-0400 Body temperature 97.88 [degF] Donis Claudia [facility] 01-19-2024 03:41-0400 Diastolic blood pressure 76 mm[Hg] Donis Claudia [facility] 01-19-2024 03:41-0400 Heart rate 90 /min Donis Claudia [facility] 01-19-2024 03:41-0400 Respiratory rate 20 /min Donis Claudia [facility] 01-19-2024 03:41-0400 SaO2% (BldA) [Mass fraction] 98 % Donis Claudia [facility] 01-19-2024 03:41-0400 Systolic blood pressure 116 mm[Hg] Donis Sánchezner [facility] 01-04-2024 01:27-0400 Body height 160.02 cm [facility] Work Phone: [facility] 01-04-2024 01:27-0400 Body temperature 97.9 [degF] [facility] Work Phone: [facility] 01-04-2024 01:27-0400 Body weight 90.2 kg [facility] Work Phone: [facility] 01-04-2024 01:27-0400 Diastolic blood pressure 82 mm[Hg] [facility] Work Phone: [facility] 01-04-2024 01:27-0400 Heart rate 89 /min Services [employer] Work Phone: [facility] 01-04-2024 01:27-0400 Respiratory rate 16 /min Services [employer] Work Phone: [facility] 01-04-2024 01:27-0400 SaO2% (BldA) [Mass fraction] 96 % Services [facility] Work Phone: [facility] 01-04-2024 01:27-0400 Systolic blood pressure 134 mm[Hg] Services [employer] Work Phone: [facility] 12-18-2023 23:26-0400 Diastolic blood pressure 62 mm[Hg] Kaylinn Dokken [facility] 12-18-2023 23:26-0400 Heart rate 61 /min Kaylinn Dokken [facility] 12-18-2023 23:26-0400 Mean blood pressure 73 mm[Hg] Kaylinn Dokken [facility] 12-18-2023 23:26-0400 Respiratory rate 5 /min Kaylinn Dokken [facility] 12-18-2023 23:26-0400 SaO2% (BldA) [Mass fraction] 97 % Kaylinn Dokken [facility] 12-18-2023 23:26-0400 Systolic blood pressure 95 mm[Hg] Kaylinn Dokken [facility] 12-18-2023 22:11-0400 Diastolic blood pressure 68 mm[Hg] Kaylinn Dokken [facility] 12-18-2023 22:11-0400 Heart rate 77 /min Kaylinn Dokken [facility] 12-18-2023 22:11-0400 Mean blood pressure 80 mm[Hg] Kaylinn Dokken [facility] 12-18-2023 22:11-0400 Respiratory rate 5 /min Kaylinn Dokken [facility] 12-18-2023 22:11-0400 SaO2% (BldA) [Mass fraction] 95 % Kaylinn Dokken [facility] 12-18-2023 22:11-0400 Systolic blood pressure 104 mm[Hg] Kaylinn Dokken [facility] 12-18-2023 21:29-0400 Diastolic blood pressure 72 mm[Hg] Kaylinn Dokken [facility] 12-18-2023 21:29-0400 Heart rate 90 /min Kaylinn Dokken [facility] 12-18-2023 21:29-0400 Mean blood pressure 86 mm[Hg] Kaylinn Dokken [facility] 12-18-2023 21:29-0400 Respiratory rate 13 /min Marshall Villedaen [facility] 12-18-2023 21:29-0400 SaO2% (BldA) [Mass fraction] 96 % Marshall Villedaen [facility] 12-18-2023 21:29-0400 Systolic blood pressure 115 mm[Hg] Destineyn Dobolivaren [facility] 12-18-2023 20:33-0400 Body temperature 97.88 [degF] Marshall Villedaen [facility] 12-18-2023 20:33-0400 Heart rate 104 /min Marshall Villedaen [facility] 12-18-2023 20:33-0400 Respiratory rate 17 /min Marshall Villedaen [facility] 12-16-2023 19:17-0400 Body temperature 97.3 [degF] [facility] Work Phone: [facility] 12-16-2023 19:17-0400 Diastolic blood pressure 55 mm[Hg] Services [facility] Work Phone: [facility] 12-16-2023 19:17-0400 Heart rate 75 /min Services [employer] Work Phone: [facility] 12-16-2023 19:17-0400 Respiratory rate 16 /min Services [employer] Work Phone: [facility] 12-16-2023 19:17-0400 SaO2% (BldA) [Mass fraction] 96 % Services [facility] Work Phone: [facility] 12-16-2023 19:17-0400 Systolic blood pressure 96 mm[Hg] Services [employer] Work Phone: [facility] 12-16-2023 15:47-0400 Body height 160.02 cm [facility] Work Phone: [facility] 12-16-2023 15:47-0400 Body weight 91 kg [facility] Work Phone: [facility] 12-14-2023 00:38-0400 Body height 160.02 cm [facility] Work Phone: [facility] 12-14-2023 00:38-0400 Body temperature 98.2 [degF] [facility] Work Phone: [facility] 12-14-2023 00:38-0400 Body weight 92.07 kg [facility] Work Phone: [facility] 12-14-2023 00:38-0400 Diastolic blood pressure 76 mm[Hg] [facility] Work Phone: [facility] 12-14-2023 00:38-0400 Heart rate 80 /min [facility] Work Phone: [facility] 12-14-2023 00:38-0400 Respiratory rate 18 /min [facility] Work Phone: [facility] 12-14-2023 00:38-0400 SaO2% (BldA) [Mass fraction] 97 % [facility] Work Phone: [facility] 12-14-2023 00:38-0400 Systolic blood pressure 147 mm[Hg] [facility] Work Phone: [facility] 12-11-2023 07:10-0400 Diastolic blood pressure 60 mm[Hg] [facility] Work Phone: [facility] 12-11-2023 07:10-0400 Heart rate 63 /min [facility] Work Phone: [facility] 12-11-2023 07:10-0400 Respiratory rate 16 /min [facility] Work Phone: [facility] 12-11-2023 07:10-0400 SaO2% (BldA) [Mass fraction] 97 % Services [facility] Work Phone: [facility] 12-11-2023 07:10-0400 Systolic blood pressure 127 mm[Hg] Services [facility] Work Phone: [facility] 12-11-2023 05:45-0400 Body temperature 97.3 [degF] Services [facility] Work Phone: [facility] 12-11-2023 02:39-0400 Body height 160.02 cm Services [facility] Work Phone: [facility] 12-11-2023 02:39-0400 Body weight 91.5 kg Services [facility] Work Phone: [facility] 12-08-2023 05:31-0400 Heart rate 74 /min Kaylinn Dokken [facility] 12-08-2023 05:31-0400 Respiratory rate 7 /min Kaylinn Dokken [facility] 12-08-2023 05:31-0400 SaO2% (BldA) [Mass fraction] 97 % Kaylinn Dokken [facility] 12-08-2023 04:07-0400 Diastolic blood pressure 90 mm[Hg] Kaylinn Dokken [facility] 12-08-2023 04:07-0400 Heart rate 66 /min Kaylinn Dokken [facility] 12-08-2023 04:07-0400 Mean blood pressure 106 mm[Hg] Kaylinn Dokken [facility] 12-08-2023 04:07-0400 Respiratory rate 14 /min Kaylinn Dokken [facility] 12-08-2023 04:07-0400 SaO2% (BldA) [Mass fraction] 95 % Kaylinn Dokken [facility] 12-08-2023 04:07-0400 Systolic blood pressure 139 mm[Hg] Kaylinn Dokken [facility] 12-08-2023 03:40-0400 Diastolic blood pressure 94 mm[Hg] Kaylinn Dokken [facility] 12-08-2023 03:40-0400 Heart rate 81 /min Kaylinn Dokken [facility] 12-08-2023 03:40-0400 Mean blood pressure 117 mm[Hg] Kaylinn Dokken [facility] 12-08-2023 03:40-0400 Respiratory rate 15 /min Kaylinn Dokken [facility] 12-08-2023 03:40-0400 SaO2% (BldA) [Mass fraction] 96 % Kaylinn Dokken [facility] 12-08-2023 03:40-0400 Systolic blood pressure 162 mm[Hg] Kaylinn Dokken [facility] 12-08-2023 03:18-0400 Body temperature 98.24 [degF] Kaylinn Dokken [facility] 12-08-2023 03:18-0400 Diastolic blood pressure 102 mm[Hg] Kaylinn Dokken [facility] 12-08-2023 03:18-0400 Heart rate 81 /min Kaylinn Dokken [facility] 12-08-2023 03:18-0400 Respiratory rate 20 /min Kaylinn Dokken [facility] 12-08-2023 03:18-0400 Systolic blood pressure 179 mm[Hg] Marshall Henriquez [facility] 12-05-2023 04:10-0400 Diastolic blood pressure 70 mm[Hg] Services [facility] Work Phone: [facility] 12-05-2023 04:10-0400 Heart rate 63 /min [facility] Work Phone: [facility] 12-05-2023 04:10-0400 Respiratory rate 18 /min Services [facility] Work Phone: [facility] 12-05-2023 04:10-0400 SaO2% (BldA) [Mass fraction] 97 % Services [facility] [employer] Work Phone: [facility] 12-05-2023 04:10-0400 Systolic blood pressure 151 mm[Hg] Services [facility] Work Phone: [facility] 12-05-2023 01:37-0400 Body height 160.02 cm Services [facility] Work Phone: [facility] 12-05-2023 01:37-0400 Body temperature 98.4 [degF] Services [facility] Work Phone: [facility] 12-05-2023 01:37-0400 Body weight 93.44 kg Services [facility] Work Phone: [facility] 12-01-2023 19:00-0400 Diastolic blood pressure 83 mm[Hg] [facility] 12-01-2023 19:00-0400 Heart rate 64 /min [facility] 12-01-2023 19:00-0400 Mean blood pressure 103 mm[Hg] [facility] 12-01-2023 19:00-0400 Respiratory rate 14 /min [facility] 12-01-2023 19:00-0400 SaO2% (BldA) [Mass fraction] 97 % [facility] 12-01-2023 19:00-0400 Systolic blood pressure 143 mm[Hg] [facility] 12-01-2023 18:00-0400 Body temperature 98.42 [degF] [facility] 12-01-2023 18:00-0400 Diastolic blood pressure 84 mm[Hg] [facility] 12-01-2023 18:00-0400 Heart rate 70 /min [facility] 12-01-2023 18:00-0400 Mean blood pressure 104 mm[Hg] [facility] 12-01-2023 18:00-0400 Respiratory rate 18 /min [facility] 12-01-2023 18:00-0400 SaO2% (BldA) [Mass fraction] 98 % [facility] 12-01-2023 18:00-0400 Systolic blood pressure 145 mm[Hg] [facility] 12-01-2023 17:00-0400 Heart rate 69 /min [facility] 12-01-2023 17:00-0400 Respiratory rate 16 /min [facility] 12-01-2023 17:00-0400 Systolic blood pressure 140 mm[Hg] [facility] 12-01-2023 16:00-0400 Body temperature 97.88 [degF] [facility] 12-01-2023 14:16-0400 Body temperature 97.7 [degF] [facility] 12-01-2023 14:16-0400 Heart rate 97 /min [facility] 12-01-2023 14:16-0400 Respiratory rate 22 /min [facility] 11-29-2023 00:58-0400 Body height 157.48 cm Services [employer] Work Phone: [facility] 11-29-2023 00:58-0400 Body temperature 98 [degF] [facility] Work Phone: [facility] 11-29-2023 00:58-0400 Body weight 87.08 kg [facility] Work Phone: [facility] 11-29-2023 00:58-0400 Diastolic blood pressure 92 mm[Hg] [facility] Work Phone: [facility] 11-29-2023 00:58-0400 Heart rate 76 /min [facility] Work Phone: [facility] 11-29-2023 00:58-0400 Respiratory rate 22 /min [facility] Work Phone: [facility] 11-29-2023 00:58-0400 SaO2% (BldA) [Mass fraction] 97 % [facility] Work Phone: [facility] 11-29-2023 00:58-0400 Systolic blood pressure 192 mm[Hg] [facility] Work Phone: [facility] 11-25-2023 00:28-0400 Body temperature 97.8 [degF] [facility] Work Phone: [facility] 11-25-2023 00:28-0400 Diastolic blood pressure 84 mm[Hg] [facility] Work Phone: [facility] 11-25-2023 00:28-0400 Heart rate 80 /min [facility] Work Phone: [facility] 11-25-2023 00:28-0400 Respiratory rate 18 /min [facility] Work Phone: [facility] 11-25-2023 00:28-0400 SaO2% (BldA) [Mass fraction] 96 % [facility] Work Phone: [facility] 11-25-2023 00:28-0400 Systolic blood pressure 154 mm[Hg] [facility] Work Phone: [facility] 11-24-2023 23:13-0400 Body height 160.02 cm Services [facility] Work Phone: [facility] 11-24-2023 23:13-0400 Body weight 93 kg Services [facility] Work Phone: [facility] 11-19-2023 01:24-0400 Body temperature 97.7 [degF] Donis Claudia [facility] 11-19-2023 01:24-0400 Diastolic blood pressure 86 mm[Hg] Donis Claudia [facility] 11-19-2023 01:24-0400 Heart rate 86 /min Donis Claudia [facility] 11-19-2023 01:24-0400 Respiratory rate 17 /min Donis Claudia [facility] 11-19-2023 01:24-0400 SaO2% (BldA) [Mass fraction] 98 % Donis Claudia [facility] 11-19-2023 01:24-0400 Systolic blood pressure 155 mm[Hg] Donis Claudia [facility] 11-19-2023 00:00-0400 Diastolic blood pressure 75 mm[Hg] Donis Claudia [facility] 11-19-2023 00:00-0400 Heart rate 84 /min Donis Claudia [facility] 11-19-2023 00:00-0400 Mean blood pressure 97 mm[Hg] Donis Claudia [facility] 11-19-2023 00:00-0400 Systolic blood pressure 140 mm[Hg] Donis Claudia [facility] 11-18-2023 22:31-0400 gluc 126 mg/dL Donis Claudia [facility] 11-18-2023 22:31-0400 gluc Donis Claudia [facility] 11-18-2023 22:14-0400 Body temperature 97.52 [degF] Donis Claudia [facility] 11-18-2023 22:14-0400 Diastolic blood pressure 78 mm[Hg] Donis Claudia [facility] 11-18-2023 22:14-0400 Heart rate 91 /min Donis Claudia [facility] 11-18-2023 22:14-0400 Respiratory rate 16 /min Donis Claudia [facility] 11-18-2023 22:14-0400 SaO2% (BldA) [Mass fraction] 97 % Donis Claudia [facility] 11-18-2023 22:14-0400 Systolic blood pressure 153 mm[Hg] Donis Claudia [facility] 11-18-2023 02:36-0400 Diastolic blood pressure 68 mm[Hg] Donis Claudia [facility] 11-18-2023 02:36-0400 Heart rate 73 /min Donis Claudia [facility] 11-18-2023 02:36-0400 Mean blood pressure 83 mm[Hg] Donis Claudia [facility] 11-18-2023 02:36-0400 SaO2% (BldA) [Mass fraction] 98 % Donis Claudia [facility] 11-18-2023 02:36-0400 Systolic blood pressure 112 mm[Hg] Donis Claudia [facility] 11-18-2023 02:02-0400 Diastolic blood pressure 78 mm[Hg] Donis Claudia [facility] 11-18-2023 02:02-0400 Heart rate 80 /min Donis Claudia [facility] 11-18-2023 02:02-0400 Mean blood pressure 101 mm[Hg] Donis Claudia [facility] 11-18-2023 02:02-0400 Respiratory rate 16 /min Donis Claudia [facility] 11-18-2023 02:02-0400 SaO2% (BldA) [Mass fraction] 95 % Donis Claudia [facility] 11-18-2023 02:02-0400 Systolic blood pressure 146 mm[Hg] Donis Claudia [facility] 11-18-2023 01:21-0400 gluc 100 mg/dL Donis Claudia [facility] 11-18-2023 01:21-0400 gluc Donis Claudia [facility] 11-18-2023 00:59-0400 Body temperature 97.7 [degF] Donis Claudia [facility] 11-18-2023 00:59-0400 Diastolic blood pressure 68 mm[Hg] Donis Claudia [facility] 11-18-2023 00:59-0400 Heart rate 95 /min Donis Claudia [facility] 11-18-2023 00:59-0400 Respiratory rate 16 /min Donis Claudia [facility] 11-18-2023 00:59-0400 SaO2% (BldA) [Mass fraction] 96 % Donis Claudia [facility] 11-18-2023 00:59-0400 Systolic blood pressure 119 mm[Hg] Donis Claudia [facility] 11-17-2023 06:25-0400 Diastolic blood pressure 72 mm[Hg] [facility] Work Phone: [facility] 11-17-2023 06:25-0400 Heart rate 70 /min [facility] Work Phone: [facility] 11-17-2023 06:25-0400 Respiratory rate 20 /min [facility] Work Phone: [facility] 11-17-2023 06:25-0400 SaO2% (BldA) [Mass fraction] 97 % [facility] Work Phone: [facility] 11-17-2023 06:25-0400 Systolic blood pressure 124 mm[Hg] [facility] Work Phone: [facility] 11-17-2023 01:35-0400 Body temperature 98.1 [degF] [facility] Work Phone: [facility] 11-17-2023 01:34-0400 Body height 160.02 cm [facility] Work Phone: [facility] 11-17-2023 01:34-0400 Body weight 95 kg [facility] Work Phone: [facility] 11-11-2023 05:14-0400 Diastolic blood pressure 72 mm[Hg] [facility] Work Phone: [facility] 11-11-2023 05:14-0400 Heart rate 65 /min [facility] Work Phone: [facility] 11-11-2023 05:14-0400 Respiratory rate 17 /min [facility] Work Phone: [facility] 11-11-2023 05:14-0400 SaO2% (BldA) [Mass fraction] 98 % [facility] Work Phone: [facility] 11-11-2023 05:14-0400 Systolic blood pressure 133 mm[Hg] [facility] Work Phone: [facility] 11-10-2023 22:40-0400 Body height 160.02 cm [facility] Work Phone: [facility] 11-10-2023 22:40-0400 Body temperature 98 [degF] [facility] Work Phone: [facility] 11-10-2023 22:40-0400 Body weight 93.2 kg [facility] Work Phone: [facility] 11-05-2023 06:24-0400 Diastolic blood pressure 68 mm[Hg] [facility] Work Phone: [facility] 11-05-2023 06:24-0400 Heart rate 67 /min [facility] Work Phone: [facility] 11-05-2023 06:24-0400 Respiratory rate 17 /min [facility] Work Phone: [facility] 11-05-2023 06:24-0400 SaO2% (BldA) [Mass fraction] 96 % [facility] Work Phone: [facility] 11-05-2023 06:24-0400 Systolic blood pressure 160 mm[Hg] [facility] Work Phone: [facility] 11-05-2023 03:14-0400 Body height 160.02 cm [facility] Work Phone: [facility] 11-05-2023 03:14-0400 Body temperature 98.3 [degF] [facility] Work Phone: [facility] 11-05-2023 03:14-0400 Body weight 86.18 kg [facility] Work Phone: [facility] 10-06-2023 22:14-0400 Diastolic blood pressure 59 mm[Hg] Donis Claudia [facility] 10-06-2023 22:14-0400 Heart rate 84 /min Donis Claudia [facility] 10-06-2023 22:14-0400 Mean blood pressure 78 mm[Hg] Donis Claudia [facility] 10-06-2023 22:14-0400 Respiratory rate 18 /min Donis Claudia [facility] 10-06-2023 22:14-0400 SaO2% (BldA) [Mass fraction] 98 % Donis Claudia [facility] 10-06-2023 22:14-0400 Systolic blood pressure 117 mm[Hg] Donis Claudia [facility] 10-06-2023 21:59-0400 Diastolic blood pressure 72 mm[Hg] Donis Claudia [facility] 10-06-2023 21:59-0400 Heart rate 84 /min Donis Claudia [facility] 10-06-2023 21:59-0400 Mean blood pressure 89 mm[Hg] Donis Claudia [facility] 10-06-2023 21:59-0400 Respiratory rate 20 /min Donis Claudia [facility] 10-06-2023 21:59-0400 SaO2% (BldA) [Mass fraction] 98 % Donis Claudia [facility] 10-06-2023 21:59-0400 Systolic blood pressure 122 mm[Hg] Donis Claudia [facility] 10-06-2023 20:16-0400 Body temperature 97.88 [degF] Donis Claudia [facility] 10-06-2023 20:16-0400 Diastolic blood pressure 97 mm[Hg] Donis Claudia [facility] 10-06-2023 20:16-0400 Heart rate 107 /min Donis Claudia [facility] 10-06-2023 20:16-0400 Respiratory rate 20 /min Donis Claudia [facility] 10-06-2023 20:16-0400 SaO2% (BldA) [Mass fraction] 97 % Donis Claudia [facility] 10-06-2023 20:16-0400 Systolic blood pressure 157 mm[Hg] Donis Claudia [facility] 10-03-2023 19:23-0400 Diastolic blood pressure 79 mm[Hg] [facility] Work Phone: [facility] 10-03-2023 19:23-0400 Systolic blood pressure 141 mm[Hg] [facility] Work Phone: [facility] 10-03-2023 19:11-0400 Heart rate 79 /min [facility] Work Phone: [facility] 10-03-2023 19:11-0400 Respiratory rate 16 /min [facility] Work Phone: [facility] 10-03-2023 19:11-0400 SaO2% (BldA) [Mass fraction] 99 % [facility] Work Phone: [facility] 10-03-2023 17:20-0400 Body height 160.02 cm [facility] Work Phone: [facility] 10-03-2023 17:20-0400 Body temperature 97.6 [degF] [facility] Work Phone: [facility] 10-03-2023 17:20-0400 Body weight 95.63 kg [facility] Work Phone: [facility] 09-29-2023 23:26-0400 Diastolic blood pressure 70 mm[Hg] [facility] Work Phone: [facility] 09-29-2023 23:26-0400 Heart rate 74 /min [facility] Work Phone: [facility] 09-29-2023 23:26-0400 Respiratory rate 18 /min [facility] Work Phone: [facility] 09-29-2023 23:26-0400 SaO2% (BldA) [Mass fraction] 97 % [facility] Work Phone: [facility] 09-29-2023 23:26-0400 Systolic blood pressure 151 mm[Hg] [facility] Work Phone: [facility] 09-29-2023 21:21-0400 Body height 160.02 cm [facility] Work Phone: [facility] 09-29-2023 21:21-0400 Body temperature 97.8 [degF] [facility] Work Phone: [facility] 09-29-2023 21:21-0400 Body weight 93.9 kg [facility] Work Phone: [facility] 09-21-2023 06:46-0400 Diastolic blood pressure 67 mm[Hg] [facility] Work Phone: [facility] 09-21-2023 06:46-0400 Heart rate 67 /min [facility] Work Phone: [facility] 09-21-2023 06:46-0400 Respiratory rate 18 /min [facility] Work Phone: [facility] 09-21-2023 06:46-0400 SaO2% (BldA) [Mass fraction] 96 % [facility] Work Phone: [facility] 09-21-2023 06:46-0400 Systolic blood pressure 130 mm[Hg] [facility] Work Phone: [facility] 09-21-2023 03:51-0400 Body height 160.02 cm [facility] Work Phone: [facility] 09-21-2023 03:51-0400 Body weight 86.18 kg [facility] Work Phone: [facility] 09-21-2023 03:40-0400 Body temperature 97.6 [degF] [facility] Work Phone: [facility] 09-19-2023 04:27-0400 Diastolic blood pressure 59 mm[Hg] [facility] Work Phone: [facility] 09-19-2023 04:27-0400 Heart rate 81 /min [facility] Work Phone: [facility] 09-19-2023 04:27-0400 Respiratory rate 16 /min [facility] Work Phone: [facility] 09-19-2023 04:27-0400 SaO2% (BldA) [Mass fraction] 96 % [facility] Work Phone: [facility] 09-19-2023 04:27-0400 Systolic blood pressure 113 mm[Hg] [facility] Work Phone: [facility] 09-19-2023 02:50-0400 Body height 160.02 cm [facility] Work Phone: [facility] 09-19-2023 02:50-0400 Body weight 86.18 kg [facility] Work Phone: [facility] 09-19-2023 02:49-0400 Body temperature 98 [degF] [facility] Work Phone: [facility] 09-14-2023 05:48-0400 Diastolic blood pressure 65 mm[Hg] [facility] Work Phone: [facility] 09-14-2023 05:48-0400 Heart rate 77 /min [facility] Work Phone: [facility] 09-14-2023 05:48-0400 Respiratory rate 16 /min [facility] Work Phone: [facility] 09-14-2023 05:48-0400 SaO2% (BldA) [Mass fraction] 96 % [facility] Work Phone: [facility] 09-14-2023 05:48-0400 Systolic blood pressure 134 mm[Hg] [facility] Work Phone: [facility] 09-14-2023 04:10-0400 Body height 160.02 cm [facility] Work Phone: [facility] 09-14-2023 04:10-0400 Body temperature 97.8 [degF] [facility] Work Phone: [facility] 09-14-2023 04:10-0400 Body weight 96 kg [facility] Work Phone: [facility] 08-06-2023 07:47-0400 Diastolic blood pressure 76 mm[Hg] [facility] Work Phone: [facility] 08-06-2023 07:47-0400 Heart rate 75 /min [facility] Work Phone: [facility] 08-06-2023 07:47-0400 Respiratory rate 18 /min [facility] Work Phone: [facility] 08-06-2023 07:47-0400 SaO2% (BldA) [Mass fraction] 97 % [facility] Work Phone: [facility] 08-06-2023 07:47-0400 Systolic blood pressure 157 mm[Hg] [facility] Work Phone: [facility] 08-06-2023 02:32-0400 Body temperature 97.7 [degF] [facility] Work Phone: [facility] 07-29-2023 03:29-0400 Diastolic blood pressure 77 mm[Hg] [facility] Work Phone: [facility] 07-29-2023 03:29-0400 Heart rate 77 /min [facility] Work Phone: [facility] 07-29-2023 03:29-0400 Respiratory rate 16 /min [facility] Work Phone: [facility] 07-29-2023 03:29-0400 SaO2% (BldA) [Mass fraction] 98 % [facility] Work Phone: [facility] 07-29-2023 03:29-0400 Systolic blood pressure 143 mm[Hg] [facility] Work Phone: [facility] 07-29-2023 00:34-0400 Body height 160.02 cm [facility] Work Phone: [facility] 07-29-2023 00:34-0400 Body temperature 97.9 [degF] [facility] Work Phone: [facility] 07-29-2023 00:34-0400 Body weight 96.55 kg [facility] Work Phone: [facility] 07-13-2023 09:01-0400 Diastolic blood pressure 56 mm[Hg] [facility] Work Phone: [facility] 07-13-2023 09:01-0400 Heart rate 76 /min [facility] Work Phone: [facility] 07-13-2023 09:01-0400 Respiratory rate 20 /min [facility] Work Phone: [facility] 07-13-2023 09:01-0400 SaO2% (BldA) [Mass fraction] 98 % [facility] Work Phone: [facility] 07-13-2023 09:01-0400 Systolic blood pressure 125 mm[Hg] [facility] Work Phone: [facility] 07-13-2023 07:09-0400 Body temperature 97.6 [degF] [facility] Work Phone: [facility] 07-13-2023 07:05-0400 Body height 160.02 cm [facility] Work Phone: [facility] 07-13-2023 07:05-0400 Body weight 88.9 kg [facility] Work Phone: [facility] 06-19-2023 21:14-0400 Diastolic blood pressure 85 mm[Hg] [facility] Work Phone: [facility] 06-19-2023 21:14-0400 Heart rate 75 /min [facility] Work Phone: [facility] 06-19-2023 21:14-0400 Respiratory rate 17 /min [facility] Work Phone: [facility] 06-19-2023 21:14-0400 SaO2% (BldA) [Mass fraction] 96 % [facility] Work Phone: [facility] 06-19-2023 21:14-0400 Systolic blood pressure 147 mm[Hg] [facility] Work Phone: [facility] 06-19-2023 18:55-0400 Body height 160.02 cm [facility] Work Phone: [facility] 06-19-2023 18:55-0400 Body temperature 97.8 [degF] [facility] Work Phone: [facility] 06-19-2023 18:55-0400 Body weight 94.45 kg [facility] Work Phone: [facility] 06-17-2023 05:41-0400 Diastolic blood pressure 70 mm[Hg] [facility] Work Phone: [facility] 06-17-2023 05:41-0400 Heart rate 59 /min [facility] Work Phone: [facility] 06-17-2023 05:41-0400 Respiratory rate 18 /min [facility] Work Phone: [facility] 06-17-2023 05:41-0400 SaO2% (BldA) [Mass fraction] 96 % [facility] Work Phone: [facility] 06-17-2023 05:41-0400 Systolic blood pressure 153 mm[Hg] [facility] Work Phone: [facility] 06-17-2023 02:55-0400 Body height 160.02 cm [facility] Work Phone: [facility] 06-17-2023 02:55-0400 Body temperature 97 [degF] [facility] Work Phone: [facility] 06-17-2023 02:55-0400 Body weight 94.9 kg [facility] Work Phone: [facility] 06-15-2023 19:29-0400 Diastolic blood pressure 67 mm[Hg] [facility] Work Phone: [facility] 06-15-2023 19:29-0400 Heart rate 61 /min [facility] Work Phone: [facility] 06-15-2023 19:29-0400 Respiratory rate 18 /min [facility] Work Phone: [facility] 06-15-2023 19:29-0400 SaO2% (BldA) [Mass fraction] 97 % [facility] Work Phone: [facility] 06-15-2023 19:29-0400 Systolic blood pressure 147 mm[Hg] [facility] Work Phone: [facility] 06-15-2023 16:50-0400 Body height 160.02 cm [facility] Work Phone: [facility] 06-15-2023 16:50-0400 Body temperature 97.4 [degF] [facility] Work Phone: [facility] 06-15-2023 16:50-0400 Body weight 93.44 kg [facility] Work Phone: [facility] 06-03-2023 06:00-0500 Diastolic blood pressure 91 mm[Hg] [facility] Work Phone: [facility] 06-03-2023 06:00-0500 Heart rate 70 /min [facility] Work Phone: [facility] 06-03-2023 06:00-0500 Respiratory rate 20 /min [facility] Work Phone: [facility] 06-03-2023 06:00-0500 SaO2% (BldA) [Mass fraction] 96 % [facility] Work Phone: [facility] 06-03-2023 06:00-0500 Systolic blood pressure 130 mm[Hg] [facility] Work Phone: [facility] 06-03-2023 03:05-0500 Body height 160.02 cm [facility] Work Phone: [facility] 06-03-2023 03:05-0500 Body temperature 98.3 [degF] [facility] Work Phone: [facility] 06-03-2023 03:05-0500 Body weight 81.64 kg [facility] Work Phone: [facility] 05-22-2023 23:10-0500 Body height 160.02 cm [facility] Work Phone: [facility] 05-22-2023 23:10-0500 Body temperature 97.7 [degF] [facility] Work Phone: [facility] 05-22-2023 23:10-0500 Body weight 96.6 kg [facility] Work Phone: [facility] 05-22-2023 23:10-0500 Diastolic blood pressure 62 mm[Hg] [facility] Work Phone: [facility] 05-22-2023 23:10-0500 Heart rate 84 /min [facility] Work Phone: [facility] 05-22-2023 23:10-0500 Respiratory rate 18 /min [facility] Work Phone: [facility] 05-22-2023 23:10-0500 SaO2% (BldA) [Mass fraction] 98 % [facility] Work Phone: [facility] 05-22-2023 23:10-0500 Systolic blood pressure 167 mm[Hg] [facility] Work Phone: [facility] 05-21-2023 01:42-0500 Diastolic blood pressure 64 mm[Hg] [facility] Work Phone: [facility] 05-21-2023 01:42-0500 Heart rate 81 /min [facility] Work Phone: [facility] 05-21-2023 01:42-0500 Respiratory rate 16 /min [facility] Work Phone: [facility] 05-21-2023 01:42-0500 SaO2% (BldA) [Mass fraction] 98 % [facility] Work Phone: [facility] 05-21-2023 01:42-0500 Systolic blood pressure 120 mm[Hg] [facility] Work Phone: [facility] 05-20-2023 23:46-0500 Body height 160.02 cm [facility] Work Phone: [facility] 05-20-2023 23:46-0500 Body temperature 97.8 [degF] [facility] Work Phone: [facility] 05-20-2023 23:46-0500 Body weight 96.9 kg [facility] Work Phone: [facility] 05-11-2023 08:32-0500 Body temperature 97.6 [degF] [facility] Work Phone: [facility] 05-11-2023 08:32-0500 Diastolic blood pressure 75 mm[Hg] [facility] Work Phone: [facility] 05-11-2023 08:32-0500 Heart rate 69 /min [facility] Work Phone: [facility] 05-11-2023 08:32-0500 Respiratory rate 18 /min [facility] Work Phone: [facility] 05-11-2023 08:32-0500 SaO2% (BldA) [Mass fraction] 97 % [facility] Work Phone: [facility] 05-11-2023 08:32-0500 Systolic blood pressure 175 mm[Hg] [facility] Work Phone: [facility] 05-11-2023 04:56-0500 Body height 160.02 cm [facility] Work Phone: [facility] 05-11-2023 04:56-0500 Body weight 86.18 kg [facility] Work Phone: [facility] 04-15-2023 02:56-0500 Diastolic blood pressure 84 mm[Hg] Kaylinn Dokken [facility] 04-15-2023 02:56-0500 Heart rate 86 /min Kaylinn Dokken [facility] 04-15-2023 02:56-0500 Respiratory rate 16 /min Kaylinn Dokken [facility] 04-15-2023 02:56-0500 SaO2% (BldA) [Mass fraction] 98 % Kaylinn Dokken [facility] 04-15-2023 02:56-0500 Systolic blood pressure 135 mm[Hg] Kaylinn Dokken [facility] 04-15-2023 02:14-0500 Body temperature 98.24 [degF] Marshall Henriquez [facility] 04-15-2023 02:14-0500 Diastolic blood pressure 81 mm[Hg] Soniainn Dokken [facility] 04-15-2023 02:14-0500 Heart rate 85 /min Destineyn Ronalen [facility] 04-15-2023 02:14-0500 Respiratory rate 16 /min Marshall Villedaen [facility] 04-15-2023 02:14-0500 SaO2% (BldA) [Mass fraction] 99 % Marshall Villedaen [facility] 04-15-2023 02:14-0500 Systolic blood pressure 153 mm[Hg] Marshall Villedaen [facility] 04-11-2023 05:05-0500 Diastolic blood pressure 77 mm[Hg] [facility] Work Phone: [facility] 04-11-2023 05:05-0500 Heart rate 70 /min [facility] Work Phone: [facility] 04-11-2023 05:05-0500 Respiratory rate 16 /min [facility] Work Phone: [facility] 04-11-2023 05:05-0500 SaO2% (BldA) [Mass fraction] 98 % [facility] Work Phone: [facility] 04-11-2023 05:05-0500 Systolic blood pressure 162 mm[Hg] [facility] Work Phone: [facility] 04-11-2023 02:31-0500 Body height 160.02 cm [facility] Work Phone: [facility] 04-11-2023 02:31-0500 Body temperature 97.6 [degF] [facility] Work Phone: [facility] 04-11-2023 02:31-0500 Body weight 94 kg [facility] Work Phone: [facility] 04-07-2023 01:13-0500 Diastolic blood pressure 78 mm[Hg] [facility] Work Phone: [facility] 04-07-2023 01:13-0500 Systolic blood pressure 147 mm[Hg] [facility] Work Phone: [facility] 04-06-2023 23:30-0500 Heart rate 79 /min [facility] Work Phone: [facility] 04-06-2023 23:30-0500 Respiratory rate 17 /min [facility] Work Phone: [facility] 04-06-2023 23:30-0500 SaO2% (BldA) [Mass fraction] 97 % [facility] Work Phone: [facility] 04-06-2023 17:50-0500 Body height 160.02 cm [facility] Work Phone: [facility] 04-06-2023 17:50-0500 Body temperature 97.8 [degF] [facility] Work Phone: [facility] 04-06-2023 17:50-0500 Body weight 97.55 kg [facility] Work Phone: [facility] 04-04-2023 03:12-0500 Body height 160.02 cm [facility] Work Phone: [facility] 04-04-2023 03:12-0500 Body temperature 97.9 [degF] [facility] Work Phone: [facility] 04-04-2023 03:12-0500 Body weight 86.18 kg [facility] Work Phone: [facility] 04-04-2023 03:12-0500 Diastolic blood pressure 72 mm[Hg] [facility] Work Phone: [facility] 04-04-2023 03:12-0500 Heart rate 73 /min [facility] Work Phone: [facility] 04-04-2023 03:12-0500 Respiratory rate 16 /min [facility] Work Phone: [facility] 04-04-2023 03:12-0500 SaO2% (BldA) [Mass fraction] 98 % [facility] Work Phone: [facility] 04-04-2023 03:12-0500 Systolic blood pressure 166 mm[Hg] [facility] Work Phone: [facility] 03-31-2023 04:45-0500 Diastolic blood pressure 73 mm[Hg] [facility] Work Phone: [facility] 03-31-2023 04:45-0500 Heart rate 77 /min [facility] Work Phone: [facility] 03-31-2023 04:45-0500 Respiratory rate 18 /min [facility] Work Phone: [facility] 03-31-2023 04:45-0500 SaO2% (BldA) [Mass fraction] 99 % [facility] Work Phone: [facility] 03-31-2023 04:45-0500 Systolic blood pressure 162 mm[Hg] [facility] Work Phone: [facility] 03-31-2023 02:48-0500 Body height 160.02 cm [facility] Work Phone: [facility] 03-31-2023 02:48-0500 Body temperature 97 [degF] [facility] Work Phone: [facility] 03-31-2023 02:48-0500 Body weight 97.1 kg [facility] Work Phone: [facility] 03-29-2023 07:17-0500 Diastolic blood pressure 66 mm[Hg] Moisés John [facility] 03-29-2023 07:17-0500 Heart rate 68 /min Moisés John [facility] 03-29-2023 07:17-0500 Mean blood pressure 89 mm[Hg] Moisés John [facility] 03-29-2023 07:17-0500 Respiratory rate 16 /min Moisés John [facility] 03-29-2023 07:17-0500 SaO2% (BldA) [Mass fraction] 98 % Moisés John [facility] 03-29-2023 07:17-0500 Systolic blood pressure 135 mm[Hg] Moisés John [facility] 03-29-2023 06:16-0500 Diastolic blood pressure 69 mm[Hg] Moisés John [facility] 03-29-2023 06:16-0500 Heart rate 68 /min Moisés John [facility] 03-29-2023 06:16-0500 Mean blood pressure 88 mm[Hg] Moisés John [facility] 03-29-2023 06:16-0500 Respiratory rate 18 /min Moisés John [facility] 03-29-2023 06:16-0500 SaO2% (BldA) [Mass fraction] 97 % Moisés John [facility] 03-29-2023 06:16-0500 Systolic blood pressure 127 mm[Hg] Moisés John [facility] 03-29-2023 05:47-0500 Diastolic blood pressure 76 mm[Hg] Moisés John [facility] 03-29-2023 05:47-0500 Heart rate 60 /min Moisés Lopez [facility] 03-29-2023 05:47-0500 Mean blood pressure 97 mm[Hg] Moisés Lopez [facility] 03-29-2023 05:47-0500 Respiratory rate 18 /min Moisés Lopez [facility] 03-29-2023 05:47-0500 SaO2% (BldA) [Mass fraction] 98 % Moisés Lopez [facility] 03-29-2023 05:47-0500 Systolic blood pressure 140 mm[Hg] Moisés Lopez [facility] 03-29-2023 02:41-0500 Body temperature 97.88 [degF] Moisés Lopez [facility] 03-29-2023 02:41-0500 Heart rate 65 /min Moisés Lopez [facility] 03-25-2023 23:06-0500 Body temperature 98.06 [degF] Donis Claudia [facility] 03-25-2023 23:06-0500 Diastolic blood pressure 69 mm[Hg] Donis Claudia [facility] 03-25-2023 23:06-0500 Heart rate 84 /min Donis Claudia [facility] 03-25-2023 23:06-0500 Respiratory rate 16 /min Donis Claudia [facility] 03-25-2023 23:06-0500 SaO2% (BldA) [Mass fraction] 97 % Donis Claudia [facility] 03-25-2023 23:06-0500 Systolic blood pressure 121 mm[Hg] Donis Claudia [facility] 03-25-2023 22:01-0500 Body temperature 98.06 [degF] Donis Claudia [facility] 03-25-2023 22:01-0500 Diastolic blood pressure 85 mm[Hg] Donis Claudia [facility] 03-25-2023 22:01-0500 Heart rate 98 /min Donis Claudia [facility] 03-25-2023 22:01-0500 Respiratory rate 20 /min Donis Claudia [facility] 03-25-2023 22:01-0500 SaO2% (BldA) [Mass fraction] 97 % Donis Claudia [facility] 03-25-2023 22:01-0500 Systolic blood pressure 128 mm[Hg] Donis Claudia [facility] 03-24-2023 23:59-0500 Diastolic blood pressure 59 mm[Hg] [facility] Work Phone: [facility] 03-24-2023 23:59-0500 Heart rate 98 /min [facility] Work Phone: [facility] 03-24-2023 23:59-0500 Respiratory rate 20 /min [facility] Work Phone: [facility] 03-24-2023 23:59-0500 SaO2% (BldA) [Mass fraction] 100 % [facility] Work Phone: [facility] 03-24-2023 23:59-0500 Systolic blood pressure 126 mm[Hg] [facility] Work Phone: [facility] 03-24-2023 22:33-0500 Body temperature 97.7 [degF] [facility] [employer] Work Phone: [facility] 03-18-2023 00:56-0500 Diastolic blood pressure 82 mm[Hg] [facility] Work Phone: [facility] 03-18-2023 00:56-0500 Heart rate 74 /min [facility] Work Phone: [facility] 03-18-2023 00:56-0500 Respiratory rate 20 /min [facility] Work Phone: [facility] 03-18-2023 00:56-0500 SaO2% (BldA) [Mass fraction] 98 % [facility] Work Phone: [facility] 03-18-2023 00:56-0500 Systolic blood pressure 157 mm[Hg] [facility] Work Phone: [facility] 03-17-2023 22:59-0500 Body temperature 97.8 [degF] [facility] Work Phone: [facility] 03-17-2023 22:56-0500 Body height 160.02 cm [facility] Work Phone: [facility] 03-17-2023 22:56-0500 Body weight 90.71 kg [facility] Work Phone: [facility] 03-06-2023 07:33-0500 Body height 160.02 cm [facility] Work Phone: [facility] 03-06-2023 07:33-0500 Body temperature 97.6 [degF] [facility] Work Phone: [facility] 03-06-2023 07:33-0500 Body weight 97.3 kg [facility] Work Phone: [facility] 03-06-2023 07:33-0500 Diastolic blood pressure 79 mm[Hg] [facility] Work Phone: [facility] 03-06-2023 07:33-0500 Heart rate 88 /min [facility] Work Phone: [facility] 03-06-2023 07:33-0500 Respiratory rate 20 /min [facility] Work Phone: [facility] 03-06-2023 07:33-0500 SaO2% (BldA) [Mass fraction] 96 % [facility] Work Phone: [facility] 03-06-2023 07:33-0500 Systolic blood pressure 165 mm[Hg] [facility] Work Phone: [facility] 03-04-2023 02:29-0500 Diastolic blood pressure 84 mm[Hg] [facility] Work Phone: [facility] 03-04-2023 02:29-0500 Heart rate 70 /min [facility] Work Phone: [facility] 03-04-2023 02:29-0500 Respiratory rate 16 /min [facility] Work Phone: [facility] 03-04-2023 02:29-0500 SaO2% (BldA) [Mass fraction] 97 % [facility] Work Phone: [facility] 03-04-2023 02:29-0500 Systolic blood pressure 153 mm[Hg] [facility] Work Phone: [facility] 03-03-2023 22:57-0500 Body height 160.02 cm [facility] Work Phone: [facility] 03-03-2023 22:57-0500 Body temperature 97.4 [degF] [facility] Work Phone: [facility] 03-03-2023 22:57-0500 Body weight 98 kg [facility] Work Phone: [facility] 01-21-2023 07:11-0400 Diastolic blood pressure 74 mm[Hg] [facility] Work Phone: [facility] 01-21-2023 07:11-0400 Heart rate 62 /min [facility] Work Phone: [facility] 01-21-2023 07:11-0400 Respiratory rate 18 /min [facility] Work Phone: [facility] 01-21-2023 07:11-0400 SaO2% (BldA) [Mass fraction] 96 % [facility] Work Phone: [facility] 01-21-2023 07:11-0400 Systolic blood pressure 155 mm[Hg] [facility] Work Phone: [facility] 01-21-2023 03:58-0400 Body height 160.02 cm [facility] Work Phone: [facility] 01-21-2023 03:58-0400 Body weight 95 kg [facility] Work Phone: [facility] 01-21-2023 03:57-0400 Body temperature 97.8 [degF] [facility] Work Phone: [facility] 12-11-2022 03:23-0400 Body height 160.02 cm [facility] Work Phone: [facility] 12-11-2022 03:23-0400 Body temperature 98.2 [degF] [facility] Work Phone: [facility] 12-11-2022 03:23-0400 Body weight 90.71 kg [facility] Work Phone: [facility] 12-11-2022 03:23-0400 Diastolic blood pressure 79 mm[Hg] [facility] Work Phone: [facility] 12-11-2022 03:23-0400 Heart rate 93 /min [facility] Work Phone: [facility] 12-11-2022 03:23-0400 Respiratory rate 18 /min [facility] Work Phone: [facility] 12-11-2022 03:23-0400 SaO2% (BldA) [Mass fraction] 98 % [facility] Work Phone: [facility] 12-11-2022 03:23-0400 Systolic blood pressure 167 mm[Hg] [facility] Work Phone: [facility] 12-10-2022 00:40-0400 Body temperature 97.7 [degF] Marshall Henriquez [facility] 12-10-2022 00:40-0400 Diastolic blood pressure 85 mm[Hg] Soniainn Dokken [facility] 12-10-2022 00:40-0400 Heart rate 81 /min Marshall Villedaen [facility] 12-10-2022 00:40-0400 Respiratory rate 18 /min Destineyn Dobolivaren [facility] 12-10-2022 00:40-0400 SaO2% (BldA) [Mass fraction] 100 % Marshall Henriquez [facility] 12-10-2022 00:40-0400 Systolic blood pressure 151 mm[Hg] Marshall Villedaen [facility] 12-09-2022 05:59-0400 Heart rate 75 /min [facility] [employer] Work Phone: [facility] 12-09-2022 05:35-0400 Diastolic blood pressure 72 mm[Hg] [facility] Work Phone: [facility] 12-09-2022 05:35-0400 Respiratory rate 16 /min Services [facility] Work Phone: [facility] 12-09-2022 05:35-0400 SaO2% (BldA) [Mass fraction] 99 % [facility] [employer] Work Phone: [facility] 12-09-2022 05:35-0400 Systolic blood pressure 150 mm[Hg] Services [facility] Work Phone: [facility] 12-09-2022 05:13-0400 Body height 160.02 cm [facility] Work Phone: [facility] 12-09-2022 05:13-0400 Body temperature 97.5 [degF] [facility] Work Phone: [facility] 12-09-2022 05:13-0400 Body weight 92 kg [facility] Work Phone: [facility] 12-04-2022 05:25-0400 Diastolic blood pressure 65 mm[Hg] [facility] Work Phone: [facility] 12-04-2022 05:25-0400 Heart rate 69 /min [facility] Work Phone: [facility] 12-04-2022 05:25-0400 Respiratory rate 18 /min [facility] Work Phone: [facility] 12-04-2022 05:25-0400 SaO2% (BldA) [Mass fraction] 96 % [facility] Work Phone: [facility] 12-04-2022 05:25-0400 Systolic blood pressure 139 mm[Hg] [facility] Work Phone: [facility] 12-04-2022 02:56-0400 Body temperature 98.2 [degF] [facility] Work Phone: [facility] 12-04-2022 02:51-0400 Body height 160.02 cm [facility] Work Phone: [facility] 12-04-2022 02:51-0400 Body weight 95.25 kg [facility] Work Phone: [facility] 11-25-2022 21:30-0400 Diastolic blood pressure 70 mm[Hg] [facility] Work Phone: [facility] 11-25-2022 21:30-0400 Heart rate 66 /min [facility] Work Phone: [facility] 11-25-2022 21:30-0400 Respiratory rate 18 /min [facility] Work Phone: [facility] 11-25-2022 21:30-0400 SaO2% (BldA) [Mass fraction] 95 % [facility] Work Phone: [facility] 11-25-2022 21:30-0400 Systolic blood pressure 151 mm[Hg] [facility] Work Phone: [facility] 11-25-2022 17:09-0400 Body height 160.02 cm [facility] Work Phone: [facility] 11-25-2022 17:09-0400 Body temperature 97.8 [degF] [facility] Work Phone: [facility] 11-25-2022 17:09-0400 Body weight 92.45 kg [facility] Work Phone: [facility] 11-23-2022 18:04-0400 Diastolic blood pressure 90 mm[Hg] [facility] Work Phone: [facility] 11-23-2022 18:04-0400 Systolic blood pressure 130 mm[Hg] [facility] Work Phone: [facility] 11-23-2022 17:07-0400 Body height 160.02 cm [facility] Work Phone: [facility] 11-23-2022 17:07-0400 Body temperature 97.5 [degF] [facility] Work Phone: [facility] 11-23-2022 17:07-0400 Body weight 92.25 kg [facility] Work Phone: [facility] 11-23-2022 17:07-0400 Heart rate 74 /min [facility] Work Phone: [facility] 11-23-2022 17:07-0400 Respiratory rate 19 /min [facility] Work Phone: [facility] 11-23-2022 17:07-0400 SaO2% (BldA) [Mass fraction] 96 % [facility] Work Phone: [facility] 11-20-2022 02:56-0400 Diastolic blood pressure 73 mm[Hg] [facility] Work Phone: [facility] 11-20-2022 02:56-0400 Systolic blood pressure 166 mm[Hg] [facility] Work Phone: [facility] 11-20-2022 01:36-0400 Body height 160.02 cm [facility] Work Phone: [facility] 11-20-2022 01:36-0400 Body temperature 98.1 [degF] [facility] Work Phone: [facility] 11-20-2022 01:36-0400 Body weight 93.9 kg [facility] Work Phone: [facility] 11-20-2022 01:36-0400 Heart rate 83 /min [facility] Work Phone: [facility] 11-20-2022 01:36-0400 Respiratory rate 26 /min [facility] Work Phone: [facility] 11-20-2022 01:36-0400 SaO2% (BldA) [Mass fraction] 99 % [facility] Work Phone: [facility] 11-18-2022 05:00-0400 Diastolic blood pressure 70 mm[Hg] [facility] Work Phone: [facility] 11-18-2022 05:00-0400 Heart rate 60 /min [facility] Work Phone: [facility] 11-18-2022 05:00-0400 Respiratory rate 16 /min [facility] Work Phone: [facility] 11-18-2022 05:00-0400 SaO2% (BldA) [Mass fraction] 96 % [facility] Work Phone: [facility] 11-18-2022 05:00-0400 Systolic blood pressure 152 mm[Hg] [facility] Work Phone: [facility] 11-18-2022 03:04-0400 Body height 160.02 cm [facility] Work Phone: [facility] 11-18-2022 03:04-0400 Body temperature 97.5 [degF] [facility] Work Phone: [facility] 11-18-2022 03:04-0400 Body weight 93 kg [facility] Work Phone: [facility] 11-13-2022 01:42-0400 Diastolic blood pressure 68 mm[Hg] [facility] Work Phone: [facility] 11-13-2022 01:42-0400 Heart rate 71 /min [facility] Work Phone: [facility] 11-13-2022 01:42-0400 Respiratory rate 18 /min [facility] Work Phone: [facility] 11-13-2022 01:42-0400 SaO2% (BldA) [Mass fraction] 96 % [facility] Work Phone: [facility] 11-13-2022 01:42-0400 Systolic blood pressure 148 mm[Hg] [facility] Work Phone: [facility] 11-13-2022 00:15-0400 Body height 160.02 cm [facility] Work Phone: [facility] 11-13-2022 00:15-0400 Body temperature 97.8 [degF] [facility] Work Phone: [facility] 11-13-2022 00:15-0400 Body weight 91.62 kg [facility] Work Phone: [facility] 11-01-2022 04:32-0400 Diastolic blood pressure 70 mm[Hg] [facility] Work Phone: [facility] 11-01-2022 04:32-0400 Systolic blood pressure 147 mm[Hg] [facility] Work Phone: [facility] 11-01-2022 04:29-0400 Heart rate 81 /min Services [facility] [employer] Work Phone: [facility] 11-01-2022 04:29-0400 Respiratory rate 19 /min [facility] [employer] Work Phone: [facility] 11-01-2022 04:29-0400 SaO2% (BldA) [Mass fraction] 99 % [facility] [employer] Work Phone: [facility] 11-01-2022 03:35-0400 Body height 160.02 cm Services [facility] [employer] Work Phone: [facility] 11-01-2022 03:35-0400 Body temperature 98.2 [degF] Services [facility] Work Phone: [facility] 11-01-2022 03:35-0400 Body weight 92.9 kg Services [facility] [employer] Work Phone: [facility] 10-27-2022 01:59-0400 Body temperature 97.7 [degF] [facility] 10-27-2022 01:59-0400 Diastolic blood pressure 68 mm[Hg] [facility] 10-27-2022 01:59-0400 Heart rate 72 /min [facility] 10-27-2022 01:59-0400 Respiratory rate 16 /min [facility] 10-27-2022 01:59-0400 SaO2% (BldA) [Mass fraction] 98 % [facility] 10-27-2022 01:59-0400 Systolic blood pressure 142 mm[Hg] [facility] Game[facility] 10-26-2022 02:43-0400 Body height 160.02 cm [facility] Work Phone: [facility] 10-26-2022 02:43-0400 Body temperature 97.8 [degF] [facility] Work Phone: [facility] 10-26-2022 02:43-0400 Body weight 93.2 kg [facility] Work Phone: [facility] 10-26-2022 02:43-0400 Diastolic blood pressure 67 mm[Hg] [facility] Work Phone: [facility] 10-26-2022 02:43-0400 Heart rate 87 /min [facility] Work Phone: [facility] 10-26-2022 02:43-0400 Respiratory rate 18 /min [facility] Work Phone: [facility] 10-26-2022 02:43-0400 SaO2% (BldA) [Mass fraction] 96 % [facility] Work Phone: [facility] 10-26-2022 02:43-0400 Systolic blood pressure 144 mm[Hg] [facility] Work Phone: [facility] 10-24-2022 02:06-0400 Body height 160.02 cm [facility] Work Phone: [facility] 10-24-2022 02:06-0400 Body temperature 98.3 [degF] [facility] Work Phone: [facility] 10-24-2022 02:06-0400 Body weight 86.18 kg [facility] Work Phone: [facility] 10-24-2022 02:06-0400 Diastolic blood pressure 82 mm[Hg] [facility] Work Phone: [facility] 10-24-2022 02:06-0400 Heart rate 87 /min [facility] Work Phone: [facility] 10-24-2022 02:06-0400 Respiratory rate 20 /min [facility] Work Phone: [facility] 10-24-2022 02:06-0400 SaO2% (BldA) [Mass fraction] 98 % [facility] Work Phone: [facility] 10-24-2022 02:06-0400 Systolic blood pressure 173 mm[Hg] [facility] Work Phone: [facility] 10-10-2022 02:02-0400 Diastolic blood pressure 76 mm[Hg] [facility] Work Phone: [facility] 10-10-2022 02:02-0400 Heart rate 87 /min [facility] Work Phone: [facility] 10-10-2022 02:02-0400 Respiratory rate 16 /min [facility] Work Phone: [facility] 10-10-2022 02:02-0400 SaO2% (BldA) [Mass fraction] 96 % [facility] Work Phone: [facility] 10-10-2022 02:02-0400 Systolic blood pressure 129 mm[Hg] [facility] Work Phone: [facility] 10-09-2022 22:16-0400 Body height 160.02 cm [facility] Work Phone: [facility] 10-09-2022 22:16-0400 Body temperature 98.1 [degF] [facility] Work Phone: [facility] 10-09-2022 22:16-0400 Body weight 89.9 kg [facility] Work Phone: [facility] 10-07-2022 01:39-0400 Body height 160.02 cm [facility] Work Phone: [facility] 10-07-2022 01:39-0400 Body weight 93.05 kg [facility] Work Phone: [facility] 10-07-2022 01:38-0400 Body temperature 98 [degF] [facility] Work Phone: [facility] 10-07-2022 01:38-0400 Diastolic blood pressure 103 mm[Hg] [facility] Work Phone: [facility] 10-07-2022 01:38-0400 Heart rate 85 /min [facility] Work Phone: [facility] 10-07-2022 01:38-0400 Respiratory rate 16 /min [facility] Work Phone: [facility] 10-07-2022 01:38-0400 SaO2% (BldA) [Mass fraction] 100 % [facility] Work Phone: [facility] 10-07-2022 01:38-0400 Systolic blood pressure 177 mm[Hg] [facility] Work Phone: [facility] 09-30-2022 06:34-0400 Diastolic blood pressure 70 mm[Hg] [facility] Work Phone: [facility] 09-30-2022 06:34-0400 Heart rate 67 /min [facility] Work Phone: [facility] 09-30-2022 06:34-0400 Respiratory rate 18 /min [facility] Work Phone: [facility] 09-30-2022 06:34-0400 SaO2% (BldA) [Mass fraction] 98 % [facility] Work Phone: [facility] 09-30-2022 06:34-0400 Systolic blood pressure 147 mm[Hg] [facility] Work Phone: [facility] 09-30-2022 04:04-0400 Body height 160.02 cm [facility] Work Phone: [facility] 09-30-2022 04:04-0400 Body temperature 98.3 [degF] [facility] Work Phone: [facility] 09-30-2022 04:04-0400 Body weight 87.99 kg [facility] Work Phone: [facility] 09-23-2022 02:46-0400 Body height 160.02 cm [facility] Work Phone: [facility] 09-23-2022 02:46-0400 Body temperature 97.7 [degF] [facility] Work Phone: [facility] 09-23-2022 02:46-0400 Body weight 89.6 kg [facility] Work Phone: [facility] 09-23-2022 02:46-0400 Diastolic blood pressure 65 mm[Hg] [facility] Work Phone: [facility] 09-23-2022 02:46-0400 Heart rate 79 /min Services [employer] Work Phone: [facility] 09-23-2022 02:46-0400 Respiratory rate 17 /min Services [facility] Work Phone: [facility] 09-23-2022 02:46-0400 SaO2% (BldA) [Mass fraction] 98 % [facility] Work Phone: [facility] 09-23-2022 02:46-0400 Systolic blood pressure 147 mm[Hg] [facility] [employer] Work Phone: [facility] 09-18-2022 14:00-0400 Diastolic blood pressure 69 mm[Hg] [facility] 09-18-2022 14:00-0400 Heart rate 74 /min [facility] 09-18-2022 14:00-0400 SaO2% (BldA) [Mass fraction] 99 % [facility] 09-18-2022 14:00-0400 Systolic blood pressure 127 mm[Hg] [facility] 09-18-2022 03:43-0400 Diastolic blood pressure 72 mm[Hg] [facility] 09-18-2022 03:43-0400 Heart rate 70 /min [facility] 09-18-2022 03:43-0400 Respiratory rate 14 /min [facility] 09-18-2022 03:43-0400 SaO2% (BldA) [Mass fraction] 100 % [facility] 09-18-2022 03:43-0400 Systolic blood pressure 131 mm[Hg] [facility] 09-17-2022 23:48-0400 Body temperature 97.88 [degF] [facility] 09-17-2022 23:48-0400 Diastolic blood pressure 75 mm[Hg] [facility] 09-17-2022 23:48-0400 Heart rate 84 /min [facility] 09-17-2022 23:48-0400 Respiratory rate 15 /min [facility] 09-17-2022 23:48-0400 SaO2% (BldA) [Mass fraction] 96 % [facility] 09-17-2022 23:48-0400 Systolic blood pressure 138 mm[Hg] [facility] 09-07-2022 04:34-0400 Diastolic blood pressure 79 mm[Hg] [facility] Work Phone: [facility] 09-07-2022 04:34-0400 Heart rate 77 /min [facility] Work Phone: [facility] 09-07-2022 04:34-0400 Respiratory rate 18 /min [facility] Work Phone: [facility] 09-07-2022 04:34-0400 SaO2% (BldA) [Mass fraction] 98 % [facility] Work Phone: [facility] 09-07-2022 04:34-0400 Systolic blood pressure 137 mm[Hg] [facility] Work Phone: [facility] 09-07-2022 00:43-0400 Body height 160.02 cm [facility] Work Phone: [facility] 09-07-2022 00:43-0400 Body temperature 98.3 [degF] [facility] Work Phone: [facility] 09-07-2022 00:43-0400 Body weight 87.99 kg [facility] Work Phone: [facility] 08-23-2022 02:30-0400 Diastolic blood pressure 74 mm[Hg] [facility] Work Phone: [facility] 08-23-2022 02:30-0400 Heart rate 60 /min [facility] Work Phone: [facility] 08-23-2022 02:30-0400 Respiratory rate 18 /min [facility] Work Phone: [facility] 08-23-2022 02:30-0400 SaO2% (BldA) [Mass fraction] 98 % [facility] Work Phone: [facility] 08-23-2022 02:30-0400 Systolic blood pressure 173 mm[Hg] [facility] Work Phone: [facility] 08-23-2022 00:57-0400 Body height 160.02 cm [facility] Work Phone: [facility] 08-23-2022 00:57-0400 Body weight 92 kg [facility] Work Phone: [facility] 08-23-2022 00:56-0400 Body temperature 97.1 [degF] [facility] Work Phone: [facility] 08-20-2022 01:10-0400 Body height 160.02 cm [facility] Work Phone: [facility] 08-20-2022 01:10-0400 Body temperature 97.7 [degF] [facility] Work Phone: [facility] 08-20-2022 01:10-0400 Body weight 86.18 kg [facility] Work Phone: [facility] 08-20-2022 01:10-0400 Diastolic blood pressure 81 mm[Hg] [facility] Work Phone: [facility] 08-20-2022 01:10-0400 Heart rate 89 /min [facility] Work Phone: [facility] 08-20-2022 01:10-0400 Respiratory rate 18 /min [facility] Work Phone: [facility] 08-20-2022 01:10-0400 SaO2% (BldA) [Mass fraction] 98 % [facility] Work Phone: [facility] 08-20-2022 01:10-0400 Systolic blood pressure 178 mm[Hg] [facility] Work Phone: [facility] 08-08-2022 19:06-0400 Diastolic blood pressure 72 mm[Hg] [facility] Work Phone: [facility] 08-08-2022 19:06-0400 Heart rate 72 /min [facility] Work Phone: [facility] 08-08-2022 19:06-0400 Respiratory rate 18 /min [facility] Work Phone: [facility] 08-08-2022 19:06-0400 SaO2% (BldA) [Mass fraction] 97 % [facility] Work Phone: [facility] 08-08-2022 19:06-0400 Systolic blood pressure 150 mm[Hg] [facility] Work Phone: [facility] 08-08-2022 18:00-0400 Body temperature 98 [degF] [facility] Work Phone: [facility] 08-08-2022 17:34-0400 Body height 160.02 cm [facility] Work Phone: [facility] 08-08-2022 17:34-0400 Body weight 95.3 kg [facility] Work Phone: [facility] 08-07-2022 03:01-0400 Diastolic blood pressure 75 mm[Hg] [facility] Work Phone: [facility] 08-07-2022 03:01-0400 Heart rate 63 /min [facility] Work Phone: [facility] 08-07-2022 03:01-0400 Respiratory rate 18 /min [facility] Work Phone: [facility] 08-07-2022 03:01-0400 SaO2% (BldA) [Mass fraction] 98 % [facility] Work Phone: [facility] 08-07-2022 03:01-0400 Systolic blood pressure 162 mm[Hg] [facility] Work Phone: [facility] 08-07-2022 01:26-0400 Body temperature 98.7 [degF] [facility] Work Phone: [facility] 08-07-2022 01:25-0400 Body height 160.02 cm [facility] Work Phone: [facility] 08-07-2022 01:25-0400 Body weight 86.18 kg [facility] Work Phone: [facility] 08-05-2022 05:46-0400 Diastolic blood pressure 60 mm[Hg] [facility] Work Phone: [facility] 08-05-2022 05:46-0400 Heart rate 72 /min [facility] Work Phone: [facility] 08-05-2022 05:46-0400 Respiratory rate 20 /min [facility] Work Phone: [facility] 08-05-2022 05:46-0400 SaO2% (BldA) [Mass fraction] 98 % [facility] Work Phone: [facility] 08-05-2022 05:46-0400 Systolic blood pressure 129 mm[Hg] [facility] Work Phone: [facility] 08-05-2022 03:02-0400 Body height 160.02 cm [facility] Work Phone: [facility] 08-05-2022 03:02-0400 Body temperature 100.1 [degF] [facility] Work Phone: [facility] 08-05-2022 03:02-0400 Body weight 86.58 kg [facility] Work Phone: [facility] 08-04-2022 20:00-0400 Diastolic blood pressure 72 mm[Hg] [facility] Work Phone: [facility] 08-04-2022 20:00-0400 Heart rate 85 /min [facility] Work Phone: [facility] 08-04-2022 20:00-0400 Respiratory rate 18 /min [facility] Work Phone: [facility] 08-04-2022 20:00-0400 SaO2% (BldA) [Mass fraction] 96 % [facility] Work Phone: [facility] 08-04-2022 20:00-0400 Systolic blood pressure 148 mm[Hg] [facility] Work Phone: [facility] 08-04-2022 18:54-0400 Body height 160.02 cm [facility] Work Phone: [facility] 08-04-2022 18:54-0400 Body temperature 97.6 [degF] [facility] Work Phone: [facility] 08-04-2022 18:54-0400 Body weight 90 kg [facility] Work Phone: [facility] 07-29-2022 01:14-0400 Diastolic blood pressure 59 mm[Hg] [facility] Work Phone: [facility] 07-29-2022 01:14-0400 Heart rate 77 /min [facility] Work Phone: [facility] 07-29-2022 01:14-0400 Respiratory rate 18 /min [facility] Work Phone: [facility] 07-29-2022 01:14-0400 SaO2% (BldA) [Mass fraction] 98 % [facility] Work Phone: [facility] 07-29-2022 01:14-0400 Systolic blood pressure 116 mm[Hg] [facility] Work Phone: [facility] 07-28-2022 20:59-0400 Body height 160.02 cm [facility] Work Phone: [facility] 07-28-2022 20:59-0400 Body temperature 98 [degF] [facility] Work Phone: [facility] 07-28-2022 20:59-0400 Body weight 86.18 kg [facility] Work Phone: [facility] 07-27-2022 02:10-0400 Diastolic blood pressure 80 mm[Hg] [facility] Work Phone: [facility] 07-27-2022 02:10-0400 Heart rate 82 /min [facility] Work Phone: [facility] 07-27-2022 02:10-0400 Respiratory rate 19 /min [facility] Work Phone: [facility] 07-27-2022 02:10-0400 SaO2% (BldA) [Mass fraction] 100 % [facility] Work Phone: [facility] 07-27-2022 02:10-0400 Systolic blood pressure 139 mm[Hg] [facility] Work Phone: [facility] 07-27-2022 00:02-0400 Body temperature 97.9 [degF] [facility] Work Phone: [facility] 07-27-2022 00:01-0400 Body height 160.02 cm [facility] Work Phone: [facility] 07-27-2022 00:01-0400 Body weight 88.45 kg [facility] Work Phone: [facility] 06-24-2022 21:32-0400 Diastolic blood pressure 67 mm[Hg] [facility] Work Phone: [facility] 06-24-2022 21:32-0400 Heart rate 62 /min [facility] Work Phone: [facility] 06-24-2022 21:32-0400 Respiratory rate 18 /min [facility] Work Phone: [facility] 06-24-2022 21:32-0400 SaO2% (BldA) [Mass fraction] 98 % [facility] Work Phone: [facility] 06-24-2022 21:32-0400 Systolic blood pressure 147 mm[Hg] [facility] Work Phone: [facility] 06-24-2022 18:18-0400 Body height 160.02 cm [facility] Work Phone: [facility] 06-24-2022 18:18-0400 Body temperature 97.8 [degF] [facility] Work Phone: [facility] 06-24-2022 18:18-0400 Body weight 89.15 kg [facility] Work Phone: [facility] 06-18-2022 00:05-0400 Body height 160.02 cm [facility] Work Phone: [facility] 06-18-2022 00:05-0400 Body temperature 98.2 [degF] [facility] Work Phone: [facility] 06-18-2022 00:05-0400 Body weight 90.1 kg [facility] Work Phone: [facility] 06-18-2022 00:05-0400 Diastolic blood pressure 84 mm[Hg] [facility] Work Phone: [facility] 06-18-2022 00:05-0400 Heart rate 86 /min [facility] Work Phone: [facility] 06-18-2022 00:05-0400 Respiratory rate 22 /min [facility] Work Phone: [facility] 06-18-2022 00:05-0400 SaO2% (BldA) [Mass fraction] 100 % [facility] Work Phone: [facility] 06-18-2022 00:05-0400 Systolic blood pressure 187 mm[Hg] [facility] Work Phone: [facility] 06-13-2022 07:30-0400 Body temperature 98.6 [degF] [facility] Work Phone: [facility] 06-13-2022 07:30-0400 Diastolic blood pressure 77 mm[Hg] [facility] Work Phone: [facility] 06-13-2022 07:30-0400 Heart rate 70 /min [facility] Work Phone: [facility] 06-13-2022 07:30-0400 Respiratory rate 16 /min [facility] Work Phone: [facility] 06-13-2022 07:30-0400 SaO2% (BldA) [Mass fraction] 97 % [facility] Work Phone: [facility] 06-13-2022 07:30-0400 Systolic blood pressure 134 mm[Hg] [facility] Work Phone: [facility] 06-11-2022 14:12-0400 Body height 160.02 cm [facility] Work Phone: [facility] 06-11-2022 09:00-0400 Body weight 86.18 kg [facility] Work Phone: [facility] 06-09-2022 05:06-0500 Heart rate 84 /min [facility] Work Phone: [facility] 06-09-2022 05:06-0500 Respiratory rate 18 /min [facility] Work Phone: [facility] 06-09-2022 05:06-0500 SaO2% (BldA) [Mass fraction] 98 % [facility] Work Phone: [facility] 06-09-2022 02:47-0500 Diastolic blood pressure 76 mm[Hg] [facility] Work Phone: [facility] 06-09-2022 02:47-0500 Systolic blood pressure 169 mm[Hg] [facility] Work Phone: [facility] 06-09-2022 01:30-0500 Body height 160.02 cm [facility] Work Phone: [facility] 06-09-2022 01:30-0500 Body temperature 97.9 [degF] [facility] Work Phone: [facility] 06-09-2022 01:30-0500 Body weight 86.18 kg [facility] Work Phone: [facility] 05-26-2022 22:42-0500 Diastolic blood pressure 79 mm[Hg] [facility] Work Phone: [facility] 05-26-2022 22:42-0500 Heart rate 76 /min [facility] Work Phone: [facility] 05-26-2022 22:42-0500 Respiratory rate 18 /min [facility] Work Phone: [facility] 05-26-2022 22:42-0500 SaO2% (BldA) [Mass fraction] 96 % [facility] Work Phone: [facility] 05-26-2022 22:42-0500 Systolic blood pressure 144 mm[Hg] [facility] Work Phone: [facility] 05-26-2022 19:56-0500 Body height 160.02 cm [facility] Work Phone: [facility] 05-26-2022 19:56-0500 Body temperature 97.9 [degF] [facility] Work Phone: [facility] 05-26-2022 19:56-0500 Body weight 89 kg [facility] Work Phone: [facility] 05-22-2022 18:43-0500 Diastolic blood pressure 85 mm[Hg] [facility] Work Phone: [facility] 05-22-2022 18:43-0500 Heart rate 76 /min [facility] Work Phone: [facility] 05-22-2022 18:43-0500 Respiratory rate 18 /min [facility] Work Phone: [facility] 05-22-2022 18:43-0500 SaO2% (BldA) [Mass fraction] 99 % [facility] Work Phone: [facility] 05-22-2022 18:43-0500 Systolic blood pressure 132 mm[Hg] [facility] Work Phone: [facility] 05-22-2022 16:30-0500 Body height 160.02 cm [facility] Work Phone: [facility] 05-22-2022 16:30-0500 Body temperature 97.9 [degF] [facility] Work Phone: [facility] 05-22-2022 16:30-0500 Body weight 90.35 kg [facility] Work Phone: [facility] 05-12-2022 00:15-0500 Body temperature 97.1 [degF] [facility] Work Phone: [facility] 05-12-2022 00:15-0500 Diastolic blood pressure 72 mm[Hg] [facility] Work Phone: [facility] 02-11-2023 00:15-0500 Heart rate 77 /min [facility] Work Phone: [facility] 05-12-2022 00:15-0500 Respiratory rate 18 /min [facility] Work Phone: [facility] 05-12-2022 00:15-0500 SaO2% (BldA) [Mass fraction] 98 % [facility] Work Phone: [facility] 05-12-2022 00:15-0500 Systolic blood pressure 180 mm[Hg] [facility] Work Phone: [facility] 05-12-2022 00:14-0500 Body height 160.02 cm [facility] Work Phone: [facility] 05-12-2022 00:14-0500 Body weight 91.1 kg [facility] Work Phone: [facility] 05-04-2022 00:46-0500 Heart rate 82 /min [facility] Work Phone: [facility] 05-03-2022 23:02-0500 Body height 160.02 cm [facility] Work Phone: [facility] 05-03-2022 23:02-0500 Body temperature 98 [degF] [facility] Work Phone: [facility] 05-03-2022 23:02-0500 Body weight 89.35 kg [facility] Work Phone: [facility] 05-03-2022 23:02-0500 Diastolic blood pressure 87 mm[Hg] [facility] Work Phone: [facility] 05-03-2022 23:02-0500 Respiratory rate 20 /min [facility] Work Phone: [facility] 05-03-2022 23:02-0500 SaO2% (BldA) [Mass fraction] 100 % [facility] Work Phone: [facility] 05-03-2022 23:02-0500 Systolic blood pressure 181 mm[Hg] [facility] Work Phone: [facility] 04-30-2022 23:00-0500 Heart rate 87 /min [facility] Work Phone: [facility] 04-30-2022 01:24-0500 Diastolic blood pressure 84 mm[Hg] [facility] Work Phone: [facility] 04-30-2022 01:24-0500 Heart rate 92 /min [facility] Work Phone: [facility] 04-30-2022 01:24-0500 Respiratory rate 20 /min [facility] Work Phone: [facility] 04-30-2022 01:24-0500 SaO2% (BldA) [Mass fraction] 99 % [facility] Work Phone: [facility] 04-30-2022 01:24-0500 Systolic blood pressure 126 mm[Hg] [facility] Work Phone: [facility] 04-29-2022 22:56-0500 Body height 160.02 cm [facility] Work Phone: [facility] 04-29-2022 22:56-0500 Body temperature 98.3 [degF] [facility] Work Phone: [facility] 04-29-2022 22:56-0500 Body weight 89.6 kg [facility] Work Phone: [facility] 04-22-2022 23:23-0500 Body height 160.02 cm [facility] Work Phone: [facility] 04-22-2022 23:23-0500 Body temperature 98.2 [degF] [facility] Work Phone: [facility] 04-22-2022 23:23-0500 Body weight 87 kg [facility] Work Phone: [facility] 04-22-2022 23:23-0500 Diastolic blood pressure 68 mm[Hg] [facility] Work Phone: [facility] 04-22-2022 23:23-0500 Heart rate 100 /min [facility] Work Phone: [facility] 04-22-2022 23:23-0500 Respiratory rate 19 /min [facility] Work Phone: [facility] 04-22-2022 23:23-0500 SaO2% (BldA) [Mass fraction] 98 % [facility] Work Phone: [facility] 04-22-2022 23:23-0500 Systolic blood pressure 145 mm[Hg] [facility] Work Phone: [facility] 04-20-2022 01:15-0500 Diastolic blood pressure 79 mm[Hg] [facility] Work Phone: [facility] 04-20-2022 01:15-0500 Heart rate 78 /min [facility] Work Phone: [facility] 04-20-2022 01:15-0500 Respiratory rate 18 /min [facility] Work Phone: [facility] 04-20-2022 01:15-0500 SaO2% (BldA) [Mass fraction] 98 % [facility] Work Phone: [facility] 04-20-2022 01:15-0500 Systolic blood pressure 170 mm[Hg] [facility] Work Phone: [facility] 04-19-2022 23:59-0500 Body temperature 98.7 [degF] [facility] Work Phone: [facility] 04-17-2022 02:40-0500 Diastolic blood pressure 73 mm[Hg] [facility] Work Phone: [facility] 04-17-2022 02:40-0500 Heart rate 73 /min [facility] Work Phone: [facility] 04-17-2022 02:40-0500 Respiratory rate 20 /min [facility] Work Phone: [facility] 04-17-2022 02:40-0500 SaO2% (BldA) [Mass fraction] 98 % [facility] Work Phone: [facility] 04-17-2022 02:40-0500 Systolic blood pressure 150 mm[Hg] [facility] Work Phone: [facility] 04-16-2022 22:58-0500 Body temperature 98.8 [degF] [facility] Work Phone: [facility] 04-16-2022 22:56-0500 Body height 160.02 cm [facility] Work Phone: [facility] 04-16-2022 22:56-0500 Body weight 87.7 kg [facility] Work Phone: [facility] 04-09-2022 06:00-0500 Diastolic blood pressure 69 mm[Hg] [facility] Work Phone: [facility] 04-09-2022 06:00-0500 Heart rate 69 /min [facility] Work Phone: [facility] 04-09-2022 06:00-0500 Respiratory rate 20 /min [facility] Work Phone: [facility] 04-09-2022 06:00-0500 SaO2% (BldA) [Mass fraction] 98 % [facility] Work Phone: [facility] 04-09-2022 06:00-0500 Systolic blood pressure 116 mm[Hg] [facility] Work Phone: [facility] 04-09-2022 02:30-0500 Body temperature 98.3 [degF] [facility] Work Phone: [facility] 04-09-2022 02:29-0500 Body height 160.02 cm [facility] Work Phone: [facility] 04-09-2022 02:29-0500 Body weight 90.2 kg [facility] Work Phone: [facility] 04-04-2022 09:37-0500 Diastolic blood pressure 77 mm[Hg] [facility] Work Phone: [facility] 04-04-2022 09:37-0500 Heart rate 72 /min [facility] Work Phone: [facility] 04-04-2022 09:37-0500 Respiratory rate 18 /min [facility] Work Phone: [facility] 04-04-2022 09:37-0500 SaO2% (BldA) [Mass fraction] 98 % [facility] Work Phone: [facility] 04-04-2022 09:37-0500 Systolic blood pressure 169 mm[Hg] [facility] Work Phone: [facility] 04-04-2022 05:53-0500 Body height 160.02 cm [facility] Work Phone: [facility] 04-04-2022 05:53-0500 Body temperature 98.5 [degF] [facility] Work Phone: [facility] 04-04-2022 05:53-0500 Body weight 86.18 kg [facility] Work Phone: [facility] 04-02-2022 07:26-0500 Diastolic blood pressure 60 mm[Hg] [facility] Work Phone: [facility] 04-02-2022 07:26-0500 Heart rate 73 /min [facility] Work Phone: [facility] 04-02-2022 07:26-0500 Respiratory rate 16 /min [facility] Work Phone: [facility] 04-02-2022 07:26-0500 SaO2% (BldA) [Mass fraction] 98 % [facility] Work Phone: [facility] 04-02-2022 07:26-0500 Systolic blood pressure 134 mm[Hg] [facility] Work Phone: [facility] 04-02-2022 02:30-0500 Body height 160.02 cm [facility] Work Phone: [facility] 04-02-2022 02:30-0500 Body temperature 98.3 [degF] [facility] Work Phone: [facility] 04-02-2022 02:30-0500 Body weight 91.1 kg [facility] Work Phone: [facility] 03-20-2022 17:00-0500 Body height 160.02 cm [facility] Work Phone: [facility] 03-20-2022 17:00-0500 Body temperature 97.7 [degF] [facility] Work Phone: [facility] 03-20-2022 17:00-0500 Body weight 88.9 kg [facility] Work Phone: [facility] 03-20-2022 17:00-0500 Diastolic blood pressure 77 mm[Hg] [facility] Work Phone: [facility] 03-20-2022 17:00-0500 Heart rate 89 /min [facility] Work Phone: [facility] 03-20-2022 17:00-0500 Respiratory rate 20 /min [facility] Work Phone: [facility] 03-20-2022 17:00-0500 SaO2% (BldA) [Mass fraction] 99 % [facility] Work Phone: [facility] 03-20-2022 17:00-0500 Systolic blood pressure 163 mm[Hg] [facility] Work Phone: [facility] 03-14-2022 00:40-0500 Body height 160.02 cm [facility] Work Phone: [facility] 03-14-2022 00:40-0500 Body temperature 98.1 [degF] [facility] Work Phone: [facility] 03-14-2022 00:40-0500 Body weight 90.3 kg [facility] Work Phone: [facility] 03-14-2022 00:40-0500 Diastolic blood pressure 81 mm[Hg] [facility] Work Phone: [facility] 03-14-2022 00:40-0500 Heart rate 86 /min [facility] Work Phone: [facility] 03-14-2022 00:40-0500 Respiratory rate 18 /min [facility] Work Phone: [facility] 03-14-2022 00:40-0500 SaO2% (BldA) [Mass fraction] 99 % [facility] Work Phone: [facility] 03-14-2022 00:40-0500 Systolic blood pressure 166 mm[Hg] [facility] Work Phone: [facility] 03-02-2022 00:32-0500 Body height 160.02 cm [facility] Work Phone: [facility] 03-02-2022 00:32-0500 Body temperature 98.6 [degF] [facility] Work Phone: [facility] 03-02-2022 00:32-0500 Body weight 90.7 kg [facility] Work Phone: [facility] 03-02-2022 00:32-0500 Diastolic blood pressure 83 mm[Hg] [facility] Work Phone: [facility] 03-02-2022 00:32-0500 Heart rate 92 /min [facility] Work Phone: [facility] 03-02-2022 00:32-0500 Respiratory rate 16 /min [facility] Work Phone: [facility] 03-02-2022 00:32-0500 SaO2% (BldA) [Mass fraction] 100 % [facility] Work Phone: [facility] 03-02-2022 00:32-0500 Systolic blood pressure 174 mm[Hg] [facility] Work Phone: [facility] 02-26-2022 01:45-0500 Diastolic blood pressure 58 mm[Hg] [facility] Work Phone: [facility] 02-26-2022 01:45-0500 Heart rate 62 /min [facility] Work Phone: [facility] 02-26-2022 01:45-0500 Respiratory rate 18 /min [facility] Work Phone: [facility] 02-26-2022 01:45-0500 SaO2% (BldA) [Mass fraction] 99 % [facility] Work Phone: [facility] 02-26-2022 01:45-0500 Systolic blood pressure 122 mm[Hg] [facility] Work Phone: [facility] 02-25-2022 22:47-0500 Body height 160.02 cm [facility] Work Phone: [facility] 02-25-2022 22:47-0500 Body temperature 98.7 [degF] [facility] Work Phone: [facility] 02-25-2022 22:47-0500 Body weight 89.5 kg [facility] Work Phone: [facility] 02-16-2022 00:48-0500 Body height 160.02 cm [facility] Work Phone: [facility] 02-16-2022 00:48-0500 Body temperature 98.8 [degF] [facility] Work Phone: [facility] 02-16-2022 00:48-0500 Body weight 89.8 kg [facility] Work Phone: [facility] 02-16-2022 00:48-0500 Diastolic blood pressure 70 mm[Hg] Services [facility] Work Phone: [facility] 02-16-2022 00:48-0500 Heart rate 83 /min Services [facility] Work Phone: [facility] 02-16-2022 00:48-0500 Respiratory rate 20 /min [facility] Work Phone: [facility] 02-16-2022 00:48-0500 SaO2% (BldA) [Mass fraction] 97 % [facility] Work Phone: [facility] 02-16-2022 00:48-0500 Systolic blood pressure 146 mm[Hg] Services [facility] Work Phone: [facility] 02-04-2022 23:28-0500 Diastolic blood pressure 73 mm[Hg] Moisés John [facility] 02-04-2022 23:28-0500 Heart rate 85 /min Moisés John [facility] 02-04-2022 23:28-0500 Respiratory rate 18 /min Moisés John [facility] 02-04-2022 23:28-0500 SaO2% (BldA) [Mass fraction] 98 % Moisés John [facility] 02-04-2022 23:28-0500 Systolic blood pressure 129 mm[Hg] Moisés John [facility] 02-04-2022 20:36-0500 Body temperature 98.24 [degF] Moisés John [facility] 02-04-2022 20:36-0500 Diastolic blood pressure 74 mm[Hg] Moisés John [facility] 02-04-2022 20:36-0500 Heart rate 91 /min Moisés John [facility] 11-06-2022 20:36-0500 Respiratory rate 20 /min Moisés Lopez [facility] 02-04-2022 20:36-0500 SaO2% (BldA) [Mass fraction] 96 % Moisés Lopez [facility] 02-04-2022 20:36-0500 Systolic blood pressure 135 mm[Hg] Moisés Lopez [facility] 01-29-2022 14:00-0400 Diastolic blood pressure 72 mm[Hg] Services [employer] Work Phone: [facility] 01-29-2022 14:00-0400 Heart rate 74 /min Services [facility] Work Phone: [facility] 01-29-2022 14:00-0400 Respiratory rate 18 /min Services [facility] Work Phone: [facility] 01-29-2022 14:00-0400 SaO2% (BldA) [Mass fraction] 100 % [facility] [employer] Work Phone: [facility] 01-29-2022 14:00-0400 Systolic blood pressure 142 mm[Hg] [facility] [employer] Work Phone: [facility] 01-28-2022 20:31-0400 Body height 160.02 cm Services [facility] [employer] Work Phone: [facility] 01-28-2022 20:31-0400 Body temperature 97.8 [degF] [facility] [employer] Work Phone: [facility] 01-28-2022 20:31-0400 Body weight 87 kg [facility] [employer] Work Phone: [facility] 01-28-2022 03:35-0400 Diastolic blood pressure 77 mm[Hg] Marshall Henriquez [facility] 01-28-2022 03:35-0400 Heart rate 74 /min Marshall Villedaen [facility] 01-28-2022 03:35-0400 Mean blood pressure 103 mm[Hg] Kaylinn Dokken [facility] 01-28-2022 03:35-0400 Respiratory rate 18 /min Kaylinn Dokken [facility] 01-28-2022 03:35-0400 SaO2% (BldA) [Mass fraction] 98 % Kaylinn Dokken [facility] 01-28-2022 03:35-0400 Systolic blood pressure 155 mm[Hg] Kaylinn Dokken [facility] 01-28-2022 02:30-0400 Diastolic blood pressure 77 mm[Hg] Kaylinn Dokken [facility] 01-28-2022 02:30-0400 Heart rate 77 /min Kaylinn Dokken [facility] 01-28-2022 02:30-0400 Mean blood pressure 101 mm[Hg] Kaylinn Dokken [facility] 01-28-2022 02:30-0400 Respiratory rate 16 /min Kaylinn Dokken [facility] 01-28-2022 02:30-0400 SaO2% (BldA) [Mass fraction] 98 % Kaylinn Dokken [facility] 01-28-2022 02:30-0400 Systolic blood pressure 148 mm[Hg] Kaylinn Dokken [facility] 01-28-2022 01:34-0400 Body temperature 98.24 [degF] Kaylinn Dokken [facility] 01-28-2022 01:34-0400 Diastolic blood pressure 72 mm[Hg] Marshall Henriquez [facility] 01-28-2022 01:34-0400 Heart rate 75 /min Marshall Henriquez [facility] 01-28-2022 01:34-0400 Respiratory rate 16 /min Marsahll Henriquez [facility] 01-28-2022 01:34-0400 SaO2% (BldA) [Mass fraction] 98 % Marshall Henriquez [facility] 01-28-2022 01:34-0400 Systolic blood pressure 170 mm[Hg] Marshall Henriquez [facility] 01-28-2022 00:39-0400 Body height 160.02 cm Services [facility] Work Phone: [facility] 01-28-2022 00:39-0400 Body temperature 97.7 [degF] Services [facility] Work Phone: [facility] 01-28-2022 00:39-0400 Body weight 88.1 kg Services [facility] Work Phone: [facility] 01-28-2022 00:39-0400 Diastolic blood pressure 84 mm[Hg] Services [facility] Work Phone: [facility] 01-28-2022 00:39-0400 Heart rate 74 /min Services [facility] Work Phone: [facility] 01-28-2022 00:39-0400 Respiratory rate 20 /min Services [facility] Work Phone: [facility] 01-28-2022 00:39-0400 SaO2% (BldA) [Mass fraction] 100 % Services [facility] Work Phone: [facility] 01-28-2022 00:39-0400 Systolic blood pressure 171 mm[Hg] [facility] Work Phone: [facility] 01-19-2022 04:57-0400 Heart rate 74 /min [facility] Work Phone: [facility] 01-19-2022 04:55-0400 Body height 160.02 cm [facility] Work Phone: [facility] 01-19-2022 04:55-0400 Body temperature 97.6 [degF] [facility] Work Phone: [facility] 01-19-2022 04:55-0400 Body weight 86.18 kg [facility] Work Phone: [facility] 01-19-2022 04:55-0400 Diastolic blood pressure 78 mm[Hg] [facility] Work Phone: [facility] 01-19-2022 04:55-0400 Respiratory rate 14 /min [facility] Work Phone: [facility] 01-19-2022 04:55-0400 SaO2% (BldA) [Mass fraction] 100 % [facility] Work Phone: [facility] 01-19-2022 04:55-0400 Systolic blood pressure 174 mm[Hg] [facility] Work Phone: [facility] 01-16-2022 05:00-0400 Diastolic blood pressure 64 mm[Hg] [facility] Work Phone: [facility] 01-16-2022 05:00-0400 Heart rate 72 /min [facility] Work Phone: [facility] 01-16-2022 05:00-0400 Respiratory rate 18 /min [facility] Work Phone: [facility] 01-16-2022 05:00-0400 SaO2% (BldA) [Mass fraction] 99 % [facility] Work Phone: [facility] 01-16-2022 05:00-0400 Systolic blood pressure 128 mm[Hg] [facility] Work Phone: [facility] 01-16-2022 01:120400 Body height 160.02 cm [facility] Work Phone: [facility] 01-16-2022 01:12-0400 Body weight 88.5 kg [facility] Work Phone: [facility] 01-16-2022 01:11-0400 Body temperature 97.7 [degF] [facility] Work Phone: [facility] 01-05-2022 00:23-0400 Body height 160.02 cm [facility] Work Phone: [facility] 01-05-2022 00:23-0400 Body temperature 98.5 [degF] [facility] Work Phone: [facility] 01-05-2022 00:23-0400 Body weight 86.18 kg [facility] Work Phone: [facility] 01-05-2022 00:23-0400 Diastolic blood pressure 67 mm[Hg] [facility] Work Phone: [facility] 01-05-2022 00:23-0400 Heart rate 80 /min [facility] Work Phone: [facility] 01-05-2022 00:23-0400 Respiratory rate 18 /min [facility] Work Phone: [facility] 01-05-2022 00:23-0400 SaO2% (BldA) [Mass fraction] 98 % [facility] Work Phone: [facility] 01-05-2022 00:23-0400 Systolic blood pressure 145 mm[Hg] [facility] Work Phone: [facility] 12-29-2021 00:12-0400 Diastolic blood pressure 71 mm[Hg] [facility] Work Phone: [facility] 12-29-2021 00:12-0400 Heart rate 84 /min [facility] Work Phone: [facility] 12-29-2021 00:12-0400 Respiratory rate 17 /min Services [facility] Work Phone: [facility] 12-29-2021 00:12-0400 SaO2% (BldA) [Mass fraction] 97 % Services [facility] Work Phone: [facility] 12-29-2021 00:12-0400 Systolic blood pressure 156 mm[Hg] Services [facility] Work Phone: [facility] 12-28-2021 22:53-0400 Body height 160.02 cm Services [facility] Work Phone: [facility] 12-28-2021 22:53-0400 Body temperature 97.7 [degF] Services [facility] Work Phone: [facility] 12-28-2021 22:53-0400 Body weight 86.18 kg Services [facility] Work Phone: [facility] 12-28-2021 01:27-0400 Diastolic blood pressure 78 mm[Hg] Kaylinn Dokken [facility] 12-28-2021 01:27-0400 Heart rate 57 /min Tabylinn Dokken [facility] 12-28-2021 01:27-0400 Mean blood pressure 105 mm[Hg] Kaylinn Dokken [facility] 12-28-2021 01:27-0400 Respiratory rate 17 /min Kaylinn Dokken [facility] 12-28-2021 01:27-0400 SaO2% (BldA) [Mass fraction] 98 % Kaylinn Dokken [facility] 12-28-2021 01:27-0400 Systolic blood pressure 159 mm[Hg] Kaylinn Dokken [facility] 12-28-2021 01:23-0400 Heart rate 55 /min Kaylinn Dokken [facility] 12-28-2021 01:23-0400 SaO2% (BldA) [Mass fraction] 98 % Kaylinn Dokken [facility] 12-28-2021 00:09-0400 Body temperature 98.06 [degF] Kaylinn Dokken [facility] 12-28-2021 00:09-0400 Diastolic blood pressure 80 mm[Hg] Kaylinn Dokken [facility] 12-28-2021 00:09-0400 Heart rate 64 /min Kaylinn Dokken [facility] 12-28-2021 00:09-0400 Respiratory rate 16 /min Kaylinn Dokken [facility] 12-28-2021 00:09-0400 SaO2% (BldA) [Mass fraction] 99 % Kaylinn Dokken [facility] 12-28-2021 00:09-0400 Systolic blood pressure 148 mm[Hg] Kaylinn Dokken [facility] 12-17-2021 23:21-0400 Body height 160.02 cm Services [employer] Work Phone: [facility] 12-17-2021 23:21-0400 Body temperature 98.7 [degF] Services [employer] Work Phone: [facility] 12-17-2021 23:21-0400 Body weight 86.18 kg Services [employer] Work Phone: [facility] 12-17-2021 23:21-0400 Diastolic blood pressure 83 mm[Hg] Services [employer] Work Phone: [facility] 12-17-2021 23:21-0400 Heart rate 89 /min Services [facility] Work Phone: [facility] 12-17-2021 23:21-0400 Respiratory rate 20 /min Services [facility] Work Phone: [facility] 12-17-2021 23:21-0400 SaO2% (BldA) [Mass fraction] 96 % Services [facility] Work Phone: [facility] 12-17-2021 23:21-0400 Systolic blood pressure 144 mm[Hg] Services [facility] Work Phone: [facility] 12-05-2021 01:16-0400 Diastolic blood pressure 79 mm[Hg] Donis Claudia [facility] 12-05-2021 01:16-0400 Heart rate 77 /min Donis Claudia [facility] 12-05-2021 01:16-0400 Respiratory rate 18 /min Donis Claudia [facility] 12-05-2021 01:16-0400 SaO2% (BldA) [Mass fraction] 97 % Donis Claudia [facility] 12-05-2021 01:16-0400 Systolic blood pressure 140 mm[Hg] Donis Claudia [facility] 12-05-2021 00:46-0400 Body temperature 98.06 [degF] Donis Claudia [facility] 12-05-2021 00:46-0400 Diastolic blood pressure 68 mm[Hg] Donis Claudia [facility] 12-05-2021 00:46-0400 Heart rate 79 /min Donis Claudia [facility] 12-05-2021 00:46-0400 Respiratory rate 18 /min Donis Claudia [facility] 12-05-2021 00:46-0400 SaO2% (BldA) [Mass fraction] 99 % Donis Claudia [facility] 12-05-2021 00:46-0400 Systolic blood pressure 156 mm[Hg] Donis Claudia [facility] 12-04-2021 22:05-0400 Body height 160.02 cm [facility] Work Phone: [facility] 12-04-2021 22:05-0400 Body temperature 98.3 [degF] [facility] Work Phone: [facility] 12-04-2021 22:05-0400 Body weight 89.1 kg [facility] Work Phone: [facility] 12-04-2021 22:05-0400 Diastolic blood pressure 69 mm[Hg] [facility] Work Phone: [facility] 12-04-2021 22:05-0400 Heart rate 86 /min [facility] Work Phone: [facility] 12-04-2021 22:05-0400 Respiratory rate 18 /min [facility] Work Phone: [facility] 12-04-2021 22:05-0400 SaO2% (BldA) [Mass fraction] 100 % [facility] Work Phone: [facility] 12-04-2021 22:05-0400 Systolic blood pressure 147 mm[Hg] [facility] Work Phone: [facility] 12-03-2021 18:28-0400 Diastolic blood pressure 86 mm[Hg] [facility] Work Phone: [facility] 12-03-2021 18:28-0400 Heart rate 71 /min [facility] Work Phone: [facility] 12-03-2021 18:28-0400 Respiratory rate 18 /min [facility] Work Phone: [facility] 12-03-2021 18:28-0400 SaO2% (BldA) [Mass fraction] 99 % [facility] Work Phone: [facility] 12-03-2021 18:28-0400 Systolic blood pressure 143 mm[Hg] [facility] Work Phone: [facility] 12-03-2021 16:27-0400 Body height 160.02 cm [facility] Work Phone: [facility] 12-03-2021 16:27-0400 Body temperature 98.3 [degF] [facility] Work Phone: [facility] 12-03-2021 16:27-0400 Body weight 88.45 kg [facility] Work Phone: [facility] 12-02-2021 21:01-0400 Heart rate 82 /min [facility] Work Phone: [facility] 12-02-2021 20:48-0400 Diastolic blood pressure 76 mm[Hg] [facility] Work Phone: [facility] 12-02-2021 20:48-0400 Respiratory rate 20 /min [facility] Work Phone: [facility] 12-02-2021 20:48-0400 SaO2% (BldA) [Mass fraction] 98 % [facility] Work Phone: [facility] 12-02-2021 20:48-0400 Systolic blood pressure 152 mm[Hg] [facility] Work Phone: [facility] 12-02-2021 18:52-0400 Body height 160.02 cm [facility] Work Phone: [facility] 12-02-2021 18:52-0400 Body temperature 98.6 [degF] [facility] Work Phone: [facility] 12-02-2021 18:52-0400 Body weight 91 kg [facility] Work Phone: [facility] 11-26-2021 01:00-0400 Diastolic blood pressure 77 mm[Hg] [facility] Work Phone: [facility] 11-26-2021 01:00-0400 Heart rate 73 /min [facility] Work Phone: [facility] 11-26-2021 01:00-0400 Respiratory rate 18 /min [facility] Work Phone: [facility] 11-26-2021 01:00-0400 SaO2% (BldA) [Mass fraction] 98 % [facility] Work Phone: [facility] 11-26-2021 01:00-0400 Systolic blood pressure 150 mm[Hg] [facility] Work Phone: [facility] 11-25-2021 17:30-0400 Body height 160.02 cm [facility] Work Phone: [facility] 11-25-2021 17:30-0400 Body temperature 98.6 [degF] [facility] Work Phone: [facility] 11-25-2021 17:30-0400 Body weight 89 kg [facility] Work Phone: [facility] 11-25-2021 03:44-0400 Diastolic blood pressure 78 mm[Hg] [facility] Work Phone: [facility] 11-25-2021 03:44-0400 Heart rate 70 /min [facility] Work Phone: [facility] 11-25-2021 03:44-0400 Respiratory rate 20 /min [facility] Work Phone: [facility] 11-25-2021 03:44-0400 SaO2% (BldA) [Mass fraction] 99 % [facility] Work Phone: [facility] 11-25-2021 03:44-0400 Systolic blood pressure 162 mm[Hg] [facility] Work Phone: [facility] 11-24-2021 23:38-0400 Body height 160.02 cm [facility] Work Phone: [facility] 11-24-2021 23:38-0400 Body temperature 98.2 [degF] [facility] Work Phone: [facility] 11-24-2021 23:38-0400 Body weight 81.64 kg [facility] Work Phone: [facility] 11-10-2021 22:44-0400 Body height 160.02 cm [facility] Work Phone: [facility] 11-10-2021 22:44-0400 Body temperature 98.1 [degF] [facility] Work Phone: [facility] 11-10-2021 22:44-0400 Body weight 88.7 kg [facility] Work Phone: [facility] 11-10-2021 22:44-0400 Diastolic blood pressure 68 mm[Hg] [facility] Work Phone: [facility] 11-10-2021 22:44-0400 Heart rate 85 /min [facility] Work Phone: [facility] 11-10-2021 22:44-0400 Respiratory rate 18 /min [facility] Work Phone: [facility] 11-10-2021 22:44-0400 SaO2% (BldA) [Mass fraction] 98 % [facility] Work Phone: [facility] 11-10-2021 22:44-0400 Systolic blood pressure 125 mm[Hg] [facility] Work Phone: [facility] 10-29-2021 05:40-0400 Diastolic blood pressure 57 mm[Hg] [facility] Work Phone: [facility] 10-29-2021 05:40-0400 Heart rate 63 /min [facility] Work Phone: [facility] 10-29-2021 05:40-0400 Respiratory rate 18 /min [facility] Work Phone: [facility] 10-29-2021 05:40-0400 SaO2% (BldA) [Mass fraction] 100 % [facility] Work Phone: [facility] 10-29-2021 05:40-0400 Systolic blood pressure 121 mm[Hg] [facility] Work Phone: [facility] 10-29-2021 03:38-0400 Body temperature 97.6 [degF] [facility] Work Phone: [facility] 10-29-2021 03:37-0400 Body height 160.02 cm [facility] Work Phone: [facility] 10-29-2021 03:37-0400 Body weight 88.35 kg [facility] Work Phone: [facility] 10-25-2021 00:06-0400 Body height 160.02 cm [facility] Work Phone: [facility] 10-25-2021 00:06-0400 Body temperature 98.1 [degF] [facility] Work Phone: [facility] 10-25-2021 00:06-0400 Body weight 96.61 kg [facility] Work Phone: [facility] 10-25-2021 00:06-0400 Diastolic blood pressure 89 mm[Hg] [facility] Work Phone: [facility] 10-25-2021 00:06-0400 Heart rate 77 /min [facility] Work Phone: [facility] 10-25-2021 00:06-0400 Respiratory rate 18 /min [facility] Work Phone: [facility] 10-25-2021 00:06-0400 SaO2% (BldA) [Mass fraction] 100 % [facility] Work Phone: [facility] 10-25-2021 00:06-0400 Systolic blood pressure 134 mm[Hg] [facility] Work Phone: [facility] 10-09-2021 23:08-0400 Body height 160.02 cm [facility] Work Phone: [facility] 10-09-2021 23:08-0400 Body mass index (BMI) [Ratio] 34 kg/m2 [facility] Work Phone: [facility] 10-09-2021 23:08-0400 Body temperature 98.5 [degF] [facility] Work Phone: [facility] 10-09-2021 23:08-0400 Body weight 87 kg [facility] Work Phone: [facility] 10-09-2021 23:08-0400 Diastolic blood pressure 69 mm[Hg] [facility] Work Phone: [facility] 10-09-2021 23:08-0400 Heart rate 78 /min [facility] Work Phone: [facility] 10-09-2021 23:08-0400 Respiratory rate 16 /min [facility] Work Phone: [facility] 10-09-2021 23:08-0400 SaO2% (BldA) [Mass fraction] 99 % [facility] Work Phone: [facility] 10-09-2021 23:08-0400 Systolic blood pressure 132 mm[Hg] [facility] Work Phone: [facility] 10-09-2021 13:30-0400 Diastolic blood pressure 64 mm[Hg] [facility] Work Phone: [facility] 10-09-2021 13:30-0400 Heart rate 63 /min [facility] Work Phone: [facility] 10-09-2021 13:30-0400 Respiratory rate 18 /min [facility] Work Phone: [facility] 10-09-2021 13:30-0400 SaO2% (BldA) [Mass fraction] 97 % [facility] Work Phone: [facility] 10-09-2021 13:30-0400 Systolic blood pressure 111 mm[Hg] [facility] Work Phone: [facility] 10-09-2021 11:17-0400 Body height 160.02 cm [facility] Work Phone: [facility] 10-09-2021 11:17-0400 Body mass index (BMI) [Ratio] 34.2 kg/m2 [facility] Work Phone: [facility] 10-09-2021 11:17-0400 Body temperature 97.9 [degF] [facility] Work Phone: [facility] 10-09-2021 11:17-0400 Body weight 87.8 kg [facility] Work Phone: [facility] 10-08-2021 07:46-0400 Diastolic blood pressure 88 mm[Hg] [facility] Work Phone: [facility] 10-08-2021 07:46-0400 Heart rate 68 /min [facility] Work Phone: [facility] 10-08-2021 07:46-0400 Respiratory rate 20 /min [facility] Work Phone: [facility] 10-08-2021 07:46-0400 SaO2% (BldA) [Mass fraction] 99 % [facility] Work Phone: [facility] 10-08-2021 07:46-0400 Systolic blood pressure 175 mm[Hg] [facility] Work Phone: [facility] 10-08-2021 06:11-0400 Body temperature 97.6 [degF] [facility] Work Phone: [facility] 10-08-2021 06:10-0400 Body height 160.02 cm [facility] Work Phone: [facility] 10-08-2021 06:10-0400 Body mass index (BMI) [Ratio] 34.6 kg/m2 [facility] Work Phone: [facility] 10-08-2021 06:10-0400 Body weight 88.65 kg [facility] Work Phone: [facility] 09-12-2021 05:51-0400 Diastolic blood pressure 72 mm[Hg] [facility] Work Phone: [facility] 09-12-2021 05:51-0400 Heart rate 70 /min Services [facility] Work Phone: [facility] 09-12-2021 05:51-0400 Respiratory rate 18 /min [facility] Work Phone: [facility] 09-12-2021 05:51-0400 SaO2% (BldA) [Mass fraction] 100 % [facility] Work Phone: [facility] 09-12-2021 05:51-0400 Systolic blood pressure 133 mm[Hg] Services [facility] Work Phone: [facility] 09-12-2021 02:37-0400 Body height 160.02 cm [facility] Work Phone: [facility] 09-12-2021 02:37-0400 Body mass index (BMI) [Ratio] 35.4 kg/m2 [facility] Work Phone: [facility] 09-12-2021 02:37-0400 Body weight 90.8 kg Services [facility] Work Phone: [facility] 09-12-2021 02:36-0400 Body temperature 97.7 [degF] Services [facility] [employer] Work Phone: [facility] Encounters Encounter Date Encounter Type Care Provider Facility Start: 12-14-2024 End: 12-15-2024 [facility] Work Phone: -Emergency Room Work Phone: Start: 12-14-2024 End: 12-15-2024 Emergency department patient visit [facility] Work Phone: [facility] Work Phone: Start: 12-04-2024 End: 12-04-2024 [facility] Work Phone: -Emergency Room Work Phone: Start: 12-04-2024 End: 12-04-2024 Emergency department patient visit [facility] Work Phone: [facility] Work Phone: Start: 12-01-2024 End: 12-01-2024 ambulatory [facility] Work Phone: [facility] Work Phone: Start: 12-01-2024 End: 12-01-2024 Baljinder Buck DO -[facility] Start: 12-01-2024 End: 12-01-2024 [facility] Work Phone: -Emergency Room Work Phone: Start: 12-01-2024 End: 12-01-2024 Emergency department patient visit [facility] Work Phone: [facility] Work Phone: Start: 11-23-2024 End: 11-23-2024 Emergency department patient visit [facility] Work Phone: [facility] Work Phone: Start: 11-23-2024 End: 11-23-2024 [facility] Work Phone: -Emergency Room Work Phone: Start: 11-15-2024 End: 11-15-2024 [facility] Work Phone: -Emergency Room Work Phone: Start: 11-15-2024 End: 11-15-2024 Emergency department patient visit [facility] Work Phone: [facility] Work Phone: Start: 11-12-2024 End: 11-12-2024 [facility] Work Phone: -Emergency Room Work Phone: Start: 11-12-2024 End: 11-12-2024 Emergency department patient visit [facility] Work Phone: [facility] Work Phone: Start: 11-02-2024 End: 11-03-2024 [facility] Work Phone: -Emergency Room Work Phone: Start: 11-02-2024 End: 11-03-2024 Emergency department patient visit [facility] Work Phone: [facility] Work Phone: Start: 10-29-2024 End: 10-29-2024 [facility] Work Phone: -Emergency Room Work Phone: Start: 10-29-2024 End: 10-29-2024 Emergency department patient visit [facility] Work Phone: [facility] Work Phone: Start: 10-07-2024 End: 10-07-2024 [facility] Work Phone: -Emergency Room Work Phone: Start: 10-07-2024 End: 10-07-2024 Emergency department patient visit [facility] Work Phone: [facility] Work Phone: Start: 09-21-2024 End: 09-21-2024 [facility] Work Phone: -Emergency Room Work Phone: Start: 09-21-2024 End: 09-21-2024 Emergency department patient visit [facility] Facility:[facility] Start: 09-01-2024 End: 09-01-2024 [facility] Work Phone: [facility]-Emergency Room Work Phone: Start: 09-01-2024 End: 09-01-2024 Emergency department patient visit [facility] Work Phone: [facility] Work Phone: Start: 08-21-2024 End: 08-21-2024 [facility] Work Phone: [facility]-Emergency Room Work Phone: Start: 08-21-2024 End: 08-21-2024 Emergency department patient visit [facility] Work Phone: [facility] Work Phone: Start: 06-19-2024 End: 06-19-2024 [facility] Work Phone: [facility]-Emergency Room Work Phone: Start: 06-19-2024 End: 06-19-2024 Emergency department patient visit [facility] Work Phone: [facility] Work Phone: Start: 06-15-2024 End: 06-15-2024 [facility] Work Phone: [facility]-Emergency Room Work Phone: Start: 06-15-2024 End: 06-15-2024 Emergency department patient visit [facility] Work Phone: [facility] Work Phone: Start: 06-10-2024 End: 06-10-2024 Emergency department patient visit [facility] Work Phone: [facility] Work Phone: Start: 06-10-2024 End: 06-10-2024 [facility] Work Phone: [facility]Emer[facility] Work Phone: Start: 05-13-2024 End: 05-13-2024 [facility] Work Phone: [facility]-Emergency Room Work Phone: Start: 05-13-2024 End: 05-13-2024 Emergency department patient visit [facility] Work Phone: [facility] Work Phone: Start: 05-10-2024 End: 05-10-2024 [facility] Work Phone: [facility]-Emergency Room Work Phone: Start: 05-10-2024 End: 05-10-2024 Emergency department patient visit [facility] Work Phone: [facility] Work Phone: Start: 05-08-2024 End: 05-08-2024 [facility] Work Phone: [facility]-Emergency Room Work Phone: Start: 05-08-2024 End: 05-08-2024 Emergency department patient visit [facility] Work Phone: [facility] Work Phone: Start: 02-29-2024 End: 02-29-2024 [facility] Work Phone: [facility] [place] Work Phone: Start: 02-29-2024 End: 02-29-2024 ambulatory Drew Mast - [facility] Facility:[facility] Start: 02-20-2024 End: 02-20-2024 [facility] Work Phone: [facility]-Emergency Room Work Phone: Start: 02-20-2024 End: 02-20-2024 Emergency department patient visit [facility] Work Phone: [facility] Work Phone: Start: 02-14-2024 End: 02-15-2024 [facility] Work Phone: [facility]-Emergency Room Work Phone: Start: 02-14-2024 End: 02-15-2024 Emergency department patient visit [facility] Work Phone: [facility] Work Phone: Start: 02-10-2024 End: 02-10-2024 [facility] Work Phone: [facility]-Emergency Room Work Phone: Start: 02-10-2024 End: 02-10-2024 Emergency department patient visit [facility] Work Phone: [facility] Work Phone: Start: 01-27-2024 End: 01-27-2024 [facility] Work Phone: [facility]-Emergency Room Work Phone: Start: 01-27-2024 End: 01-27-2024 Emergency department patient visit [facility] Work Phone: [facility] Work Phone: Start: 01-19-2024 End: 01-19-2024 Emergency department patient visit Donis Taylor [facility] Start: 01-04-2024 End: 01-04-2024 [facility] Work Phone: [facility]-Emergency Room Work Phone: Start: 01-04-2024 End: 01-04-2024 Emergency department patient visit [facility] Work Phone: [facility] Work Phone: Start: 12-18-2023 End: 12-18-2023 Emergency department patient visit [facility] Facility[facility] Start: 12-16-2023 End: 12-16-2023 Emergency department patient visit [facility] Work Phone: [facility] Work Phone: Start: 12-16-2023 End: 12-16-2023 [facility] Work Phone: [facility]-Emergency Room Work Phone: Start: 12-14-2023 End: 12-14-2023 Emergency department patient visit [facility] Work Phone: [facility] Work Phone: Start: 12-14-2023 End: 12-14-2023 [facility] Work Phone: [facility]-Emergency Room Work Phone: Start: 12-11-2023 End: 12-11-2023 Emergency department patient visit [facility] Work Phone: [facility] Work Phone: Start: 12-11-2023 End: 12-11-2023 [facility] Work Phone: [facility]-Emergency Room Work Phone: Start: 12-08-2023 End: 12-08-2023 Emergency department patient visit Marshall Henriquez [facility] Start: 12-05-2023 End: 12-05-2023 Emergency department patient visit [facility] Work Phone: [facility] Work Phone: Start: 12-05-2023 End: 12-05-2023 [facility] Work Phone: [facility]-Emergency Room Work Phone: Start: 12-01-2023 End: 12-01-2023 Emergency department patient visit Narendra Thomas Facility[place] Start: 11-29-2023 [facility] Start: 11-29-2023 End: 11-29-2023 Emergency department patient visit [facility] Work Phone: [facility] Work Phone: Start: 11-29-2023 End: 11-29-2023 [facility] Work Phone: [facility]-Emergency Room Work Phone: Start: 11-24-2023 End: 11-25-2023 Emergency department patient visit [facility] Work Phone: [facility] Work Phone: Start: 11-24-2023 End: 11-25-2023 [facility] Work Phone: [facility]-Emergency Room Work Phone: Start: 11-18-2023 End: 11-19-2023 Emergency department patient visit Donis Sánchezner [facility] Start: 11-18-2023 End: 11-18-2023 Emergency department patient visit DO Donis Taylor Facility:[facility] Start: 11-17-2023 End: 11-17-2023 Emergency department patient visit [facility] Work Phone: [facility] Work Phone: Start: 11-17-2023 End: 11-17-2023 [facility] Work Phone: [facility]-Emergency Room Work Phone: Start: 11-10-2023 End: 11-11-2023 Emergency department patient visit [facility] Work Phone: [facility] Work Phone: Start: 11-10-2023 End: 11-11-2023 [facility] Work Phone: [facility] Work Phone: Start: 11-05-2023 End: 11-05-2023 Emergency department patient visit [facility] Work Phone: [facility] Work Phone: Start: 11-05-2023 End: 11-05-2023 [facility] Work Phone: [facility]-Emergency Room Work Phone: Start: 10-06-2023 End: 10-06-2023 Emergency department patient visit Donis Taylor Facility:[facility] Start: 10-03-2023 End: 10-03-2023 Emergency department patient visit [facility] Work Phone: [facility] Work Phone: Start: 10-03-2023 End: 10-03-2023 [facility] Work Phone: [facility]-Emergency Room Work Phone: Start: 09-29-2023 End: 09-29-2023 Emergency department patient visit [facility] Work Phone: [facility] Work Phone: Start: 09-29-2023 End: 09-29-2023 [facility] Work Phone: [facility]-Emergency [facility] Work Phone: Start: 09-21-2023 End: 09-21-2023 Emergency department patient visit [facility] Work Phone: [facility] Work Phone: Start: 09-21-2023 End: 09-21-2023 [facility] Work Phone: [facility]-Emer[facility] Work Phone: Start: 09-19-2023 End: 09-19-2023 Emergency department patient visit [facility] Work Phone: [facility] Work Phone: Start: 09-19-2023 End: 09-19-2023 [facility] Work Phone: [facility]-Emergency [facility] Work Phone: Start: 09-14-2023 End: 09-14-2023 Emergency department patient visit [facility] Work Phone: [facility] Work Phone: Start: 09-14-2023 End: 09-14-2023 [facility] Work Phone: [facility]-Emer[facility] Work Phone: Start: 08-06-2023 End: 08-06-2023 Emergency department patient visit [facility] Work Phone: [facility] Work Phone: Start: 08-06-2023 End: 08-06-2023 [facility] Work Phone: [facility]Emer[facility] Work Phone: Start: 07-29-2023 End: 07-29-2023 Emergency department patient visit [facility] Work Phone: [facility] Work Phone: Start: 07-29-2023 End: 07-29-2023 [facility] Work Phone: [facility]Emer[facility] Work Phone: Start: 07-13-2023 End: 07-13-2023 Emergency department patient visit [facility] Work Phone: [facility] Work Phone: Start: 07-13-2023 End: 07-13-2023 [facility] Work Phone: [facility]Emer[facility] Work Phone: Start: 06-19-2023 End: 06-19-2023 Emergency department patient visit [facility] Work Phone: [facility] Work Phone: Start: 06-19-2023 End: 06-19-2023 [facility] Work Phone: [facility] Work Phone: Start: 06-17-2023 End: 06-17-2023 Emergency department patient visit [facility] Work Phone: [facility] Work Phone: Start: 06-17-2023 End: 06-17-2023 [facility] Work Phone: [facility] Work Phone: Start: 06-15-2023 End: 06-15-2023 Emergency department patient visit [facility] Work Phone: [facility] Work Phone: Start: 06-15-2023 End: 06-15-2023 [facility] Work Phone: [facility]-Emergency [facility] Work Phone: Start: 06-03-2023 End: 06-03-2023 [facility] Work Phone: [facility]Emer[facility] Work Phone: Start: 05-22-2023 End: 05-23-2023 Emergency department patient visit [facility] Work Phone: [facility] Work Phone: Start: 05-22-2023 End: 05-23-2023 [facility] Work Phone: [facility] Work Phone: Start: 05-20-2023 End: 05-21-2023 Emergency department patient visit [facility] Work Phone: [facility] Work Phone: Start: 05-20-2023 End: 05-21-2023 [facility] Work Phone: [facility] Work Phone: Start: 05-11-2023 End: 05-11-2023 Emergency department patient visit [facility] [facility] Work Phone: Start: 05-11-2023 End: 05-11-2023 Services Family [facility] Work Phone: [facility] Work Phone: Start: 04-15-2023 End: 04-15-2023 Emergency department patient visit Marshall Stoll Dobolivarkofi [facility] Start: 04-11-2023 End: 04-11-2023 Emergency department patient visit Services [facility] Work Phone: [facility] Work Phone: Start: 04-11-2023 End: 04-11-2023 Services [facility] Work Phone: [facility] Work Phone: Start: 04-06-2023 End: 04-07-2023 Services [facility] Work Phone: [facility] Work Phone: Start: 04-04-2023 End: 04-04-2023 Emergency department patient visit [facility] Work Phone: [facility] Work Phone: Start: 04-04-2023 End: 04-04-2023 Services [facility] Work Phone: [facility] Work Phone: Start: 03-31-2023 End: 03-31-2023 Services [facility] Work Phone: [facility] Work Phone: Start: 03-29-2023 End: 03-29-2023 Emergency department patient visit Moisés Lopez [facility] Start: 03-25-2023 End: 03-26-2023 Emergency department patient visit Donis Taylor [facility] Start: 03-24-2023 End: 03-25-2023 Emergency department patient visit Services [facility] Work Phone: [facility] Work Phone: Start: 03-24-2023 End: 03-25-2023 Services [facility] Work Phone: [facility] Work Phone: Start: 03-17-2023 End: 03-18-2023 Emergency department patient visit Services [facility] Work Phone: [facility] Work Phone: Start: 03-17-2023 End: 03-18-2023 Services [facility] Work Phone: [facility] Work Phone: Start: 03-06-2023 End: 03-06-2023 Emergency department patient visit [facility] Work Phone: [facility] Work Phone: Start: 03-06-2023 End: 03-06-2023 Services [facility] Work Phone: [facility] Work Phone: Start: 03-03-2023 End: 03-04-2023 Services [facility] Work Phone: [facility] Work Phone: Start: 01-21-2023 End: 01-21-2023 Emergency department patient visit [facility] Work Phone: [facility] Work Phone: Start: 01-21-2023 End: 01-21-2023 Services [facility] Work Phone: [facility] Work Phone: Start: 01-06-2023 End: 01-07-2023 Emergency department patient visit Donis Taylor Facility:[facility] Start: 12-11-2022 End: 12-11-2022 Emergency department patient visit Services [facility] Work Phone: [facility] Work Phone: Start: 12-11-2022 End: 12-11-2022 Services [facility] Work Phone: [facility] Work Phone: Start: 12-10-2022 End: 12-10-2022 Emergency department patient visit Marshall Stoll Dobolivarkofi [facility] Start: 12-09-2022 End: 12-09-2022 Emergency department patient visit Services [facility] Work Phone: [facility] Work Phone: Start: 12-09-2022 End: 12-09-2022 Services [facility] Work Phone: [facility] Work Phone: Start: 12-04-2022 End: 12-04-2022 Emergency department patient visit [facility] Work Phone: [facility] Work Phone: Start: 12-04-2022 End: 12-04-2022 Services [facility] Work Phone: [facility] Work Phone: Start: 11-25-2022 End: 11-25-2022 Emergency department patient visit [facility] Work Phone: [facility] Work Phone: Start: 11-25-2022 End: 11-25-2022 Services [facility] Work Phone: [facility] Work Phone: Start: 11-23-2022 End: 11-23-2022 Emergency department patient visit [facility] Work Phone: [facility] Work Phone: Start: 11-23-2022 End: 11-23-2022 Services [facility] Work Phone: [facility] Work Phone: Start: 11-20-2022 End: 11-20-2022 Emergency department patient visit [facility] Work Phone: [facility] Work Phone: Start: 11-20-2022 End: 11-20-2022 Services [facility] Work Phone: [facility] Work Phone: Start: 11-18-2022 End: 11-18-2022 Emergency department patient visit [facility] Work Phone: [facility] Work Phone: Start: 11-18-2022 End: 11-18-2022 Services [facility] Work Phone: [facility] Work Phone: Start: 11-13-2022 End: 11-13-2022 Emergency department patient visit [facility] Work Phone: [facility] Work Phone: Start: 11-13-2022 End: 11-13-2022 Services [facility] Work Phone: [facility] Work Phone: Start: 11-03-2022 End: 11-03-2022 Emergency department patient visit Destiney Jerman [facility] Facility:[facility] Start: 11-01-2022 End: 11-01-2022 Emergency department patient visit [facility] Work Phone: [facility] Work Phone: Start: 11-01-2022 End: 11-01-2022 Services [facility] Work Phone: [facility] Work Phone: Start: 10-27-2022 End: 10-27-2022 Emergency department patient visit Phillip WylieSlade Gamez [facility] Start: 10-26-2022 End: 10-26-2022 Emergency department patient visit Services [facility] Work Phone: [facility] Work Phone: Start: 10-26-2022 End: 10-26-2022 Services [facility] Work Phone: [facility] Work Phone: Start: 10-24-2022 End: 10-24-2022 Services [facility] Work Phone: [facility] Work Phone: Start: 10-09-2022 End: 10-10-2022 Services [facility] Work Phone: [facility] Work Phone: Start: 10-07-2022 End: 10-07-2022 Emergency department patient visit [facility] Work Phone: [facility] Work Phone: Start: 10-07-2022 End: 10-07-2022 Services [facility] Work Phone: [facility] Work Phone: Start: 09-30-2022 End: 09-30-2022 Emergency department patient visit [facility] Work Phone: [facility] Work Phone: Start: 09-30-2022 End: 09-30-2022 Services [facility] Work Phone: [facility] Work Phone: Start: 09-25-2022 End: 09-25-2022 ambulatory [facility] Work Phone: [facility] Work Phone: Start: 09-25-2022 End: 09-25-2022 Services [facility] Work Phone: [facility] Work Phone: Start: 09-23-2022 End: 09-23-2022 Emergency department patient visit [facility] Work Phone: [facility] Work Phone: Start: 09-23-2022 End: 09-23-2022 Services [facility] Work Phone: [facility] Work Phone: Start: 09-17-2022 End: 09-18-2022 Emergency department patient visit [facility] Messi Martha [facility] Start: 09-07-2022 End: 09-07-2022 Services [facility] Work Phone: [facility] Work Phone: Start: 08-23-2022 End: 08-23-2022 Services [facility] Work Phone: [facility] Work Phone: Start: 08-20-2022 End: 08-20-2022 Services [facility] Work Phone: [facility] Work Phone: Start: 08-13-2022 End: 08-13-2022 ambulatory [facility] Facility: Start: 08-08-2022 End: 08-08-2022 Emergency department patient visit [facility] Work Phone: [facility] Work Phone: Start: 08-08-2022 End: 08-08-2022 Services [facility] Work Phone: [facility] Work Phone: Start: 08-07-2022 End: 08-07-2022 Emergency department patient visit [facility] Work Phone: [facility] Work Phone: Start: 08-07-2022 End: 08-07-2022 Services [facility] Work Phone: [facility] Work Phone: Start: 08-05-2022 End: 08-05-2022 Emergency department patient visit [facility] Work Phone: [facility] Work Phone: Start: 08-05-2022 End: 08-05-2022 Services [facility] Work Phone: [facility] Work Phone: Start: 08-04-2022 End: 08-04-2022 Services [facility] Work Phone: [facility] Work Phone: Start: 07-28-2022 End: 07-29-2022 Emergency department patient visit [facility] Work Phone: [facility] Work Phone: Start: 07-28-2022 End: 07-29-2022 Services [facility] Work Phone: [facility] Work Phone: Start: 07-26-2022 End: 07-27-2022 Services [facility] Work Phone: [facility] Work Phone: Start: 07-18-2022 End: 07-18-2022 ambulatory [facility] Work Phone: [facility] Work Phone: Start: 07-18-2022 End: 07-18-2022 [facility] Work Phone: [facility] Work Phone: Start: 07-14-2022 End: 07-14-2022 ambulatory [facility] Facility:[facility] Start: 07-03-2022 End: 07-03-2022 ambulatory [facility] Work Phone: [facility] Work Phone: Start: 07-03-2022 End: 07-03-2022 [facility] Work Phone: [facility] Start: 07-02-2022 End: 07-02-2022 ambulatory [facility] Facility:[facility] Start: 06-24-2022 End: 06-24-2022 Emergency department patient visit [facility] Work Phone: [facility] Work Phone: Start: 06-24-2022 End: 06-24-2022 [facility] Work Phone: [facility] Work Phone: Start: 06-18-2022 End: 06-18-2022 Services [facility] Work Phone: [facility] Work Phone: Start: 06-09-2022 Evaluation and management of inpatient Services [facility] Work Phone: [facility] Work Phone: Start: 06-09-2022 End: 06-13-2022 Services [facility] Work Phone: [facility] Work Phone: Start: 06-04-2022 ambulatory Favio Barahona [id number] Start: 05-26-2022 End: 05-26-2022 Emergency department patient visit [facility] Work Phone: [facility] Work Phone: Start: 05-26-2022 End: 05-26-2022 Services [facility] Work Phone: [facility] Work Phone: Start: 05-25-2022 End: 05-25-2022 ambulatory [facility] Facility:[facility] Start: 05-22-2022 End: 05-22-2022 Emergency department patient visit [facility] Work Phone: [facility] Work Phone: Start: 05-22-2022 End: 05-22-2022 Services [facility] Work Phone: [facility] Work Phone: Start: 05-14-2022 End: 05-14-2022 ambulatory [facility] Work Phone: [facility] Work Phone: Start: 05-14-2022 End: 05-14-2022 Services [facility] Work Phone: [facility] [place] Work Phone: Start: 05-13-2022 End: 05-13-2022 ambulatory TRINY PATRICK . Facility:[facility]1 Start: 05-12-2022 End: 05-12-2022 Emergency department patient visit [facility] Work Phone: [facility] Work Phone: Start: 05-12-2022 End: 05-12-2022 [facility] Work Phone: [facility] Work Phone: Start: 05-03-2022 End: 05-04-2022 Emergency department patient visit [facility] Work Phone: [facility] Work Phone: Start: 05-03-2022 End: 05-04-2022 Services [facility] Work Phone: [facility] Work Phone: Start: 04-29-2022 End: 04-30-2022 Emergency department patient visit [facility] Work Phone: [facility] Work Phone: Start: 04-29-2022 End: 04-30-2022 Services [facility] Work Phone: [facility] Work Phone: Start: 04-22-2022 End: 04-23-2022 Emergency department patient visit [facility] Work Phone: [facility] Work Phone: Start: 04-22-2022 End: 04-23-2022 [facility] Work Phone: [facility] Work Phone: Start: 04-19-2022 End: 04-20-2022 Emergency department patient visit [facility] Work Phone: [facility] Work Phone: Start: 04-19-2022 End: 04-20-2022 Services [facility] Work Phone: [facility] Work Phone: Start: 04-16-2022 End: 04-17-2022 Emergency department patient visit [facility] Work Phone: [facility] Work Phone: Start: 04-16-2022 End: 04-17-2022 Services [facility] Work Phone: [facility] Work Phone: Start: 04-09-2022 End: 04-09-2022 Emergency department patient visit [facility] Work Phone: [facility] Work Phone: Start: 04-09-2022 End: 04-09-2022 Services [facility] Work Phone: [facility] Work Phone: Start: 04-04-2022 End: 04-04-2022 Emergency department patient visit [facility] Work Phone: [facility] Work Phone: Start: 04-04-2022 End: 04-04-2022 Services [facility] Work Phone: [facility] Work Phone: Start: 04-02-2022 End: 04-02-2022 Emergency department patient visit [facility] Work Phone: [facility] Work Phone: Start: 04-02-2022 End: 04-02-2022 Services [facility] Work Phone: [facility] Work Phone: Start: 03-20-2022 End: 03-20-2022 Emergency department patient visit [facility] Work Phone: [facility] Work Phone: Start: 03-20-2022 End: 03-20-2022 Services [facility] Work Phone: [facility] Start: 03-14-2022 End: 03-14-2022 Services [facility] Work Phone: [facility] Start: 03-02-2022 End: 03-02-2022 Emergency department patient visit [facility] Work Phone: [facility] Work Phone: Start: 03-02-2022 End: 03-02-2022 Services [facility] Work Phone: [facility] Start: 02-25-2022 End: 02-26-2022 Emergency department patient visit [facility] Work Phone: [facility] Work Phone: Start: 02-25-2022 End: 02-26-2022 Services [facility] Work Phone: [facility] Start: 02-16-2022 End: 02-16-2022 Emergency department patient visit [facility] Work Phone: [facility] Work Phone: Start: 02-16-2022 End: 02-16-2022 Services [facility] Work Phone: [facility] Start: 02-04-2022 End: 02-04-2022 Emergency department patient visit Moisés Lopez [facility] Start: 01-28-2022 End: 01-29-2022 Services [facility] Work Phone: [facility] Start: 01-28-2022 End: 01-28-2022 Emergency department patient visit Marshall Henriquez [facility] Start: 01-28-2022 End: 01-28-2022 Services [facility] Work Phone: [facility] Start: 01-19-2022 End: 01-19-2022 Emergency department patient visit [facility] Work Phone: [facility] Work Phone: Start: 01-19-2022 End: 01-19-2022 Services [facility] Work Phone: [facility] Start: 01-16-2022 End: 01-16-2022 Emergency department patient visit [facility] Work Phone: [facility] Work Phone: Start: 01-16-2022 End: 01-16-2022 [facility] Work Phone: [facility] Start: 01-05-2022 End: 01-05-2022 Emergency department patient visit [facility] Work Phone: [facility] Work Phone: Start: 01-05-2022 End: 01-05-2022 [facility] Work Phone: [facility] Start: 12-28-2021 End: 12-29-2021 Emergency department patient visit [facility] Work Phone: [facility] Work Phone: Start: 12-28-2021 End: 12-29-2021 [facility] Work Phone: [facility] Start: 12-28-2021 End: 12-28-2021 Emergency department patient visit Marshall Henriquez [facility] Start: 12-17-2021 End: 12-18-2021 Emergency department patient visit [facility] Work Phone: [facility] Start: 12-17-2021 End: 12-18-2021 [facility] Work Phone: [facility] Start: 12-05-2021 End: 12-05-2021 Emergency department patient visit Donis DevinSlade Taylor [facility] Start: 12-04-2021 End: 12-04-2021 Emergency department patient visit [facility] Work Phone: [facility] Start: 12-04-2021 End: 12-04-2021 [facility] Work Phone: [facility] Start: 12-03-2021 End: 12-03-2021 Emergency department patient visit [facility] Work Phone: [facility] Start: 12-03-2021 End: 12-03-2021 [facility] Work Phone: [facility] Start: 12-02-2021 End: 12-02-2021 Emergency department patient visit [facility] Work Phone: [facility] Start: 12-02-2021 End: 12-02-2021 Services [facility] Work Phone: [facility] Start: 11-25-2021 End: 11-26-2021 Emergency department patient visit [facility] Work Phone: [facility] Start: 11-25-2021 End: 11-26-2021 Services [facility] Work Phone: [facility] Start: 11-24-2021 End: 11-25-2021 Emergency department patient visit [facility] Work Phone: [facility] Start: 11-24-2021 End: 11-25-2021 Services [facility] Work Phone: [facility] Start: 11-10-2021 End: 11-11-2021 Emergency department patient visit [facility] Work Phone: [facility] Start: 11-10-2021 End: 11-11-2021 Services [facility] Work Phone: [facility] Start: 10-29-2021 End: 10-29-2021 Services [facility] Work Phone: [facility] Start: 10-24-2021 End: 10-25-2021 Services [facility] Work Phone: [facility] Start: 10-09-2021 End: 10-10-2021 Services [facility] Work Phone: [facility] Start: 10-09-2021 End: 10-09-2021 Services [facility] Work Phone: [facility] Start: 10-08-2021 End: 10-08-2021 Services [facility] Work Phone: [facility] Start: 09-12-2021 End: 09-12-2021 Services [facility] Work Phone: [facility]Emer[facility] Start: 02-23-2020 Patient encounter status Services [facility] Phone: [facility] Procedures Date Procedure Procedure Detail Performing Clinician Start: 12-04-2024 CT of abdomen and pe lvis without contrast [facility] [employer] Phone: Start: 12-01-2024 Urine culture [facility] Phone: Start: 12-01-2024 Viral nucleic acid assay Services [employer] Phone: Start: 12-01-2024 Plain chest X-ray [facility] [employer] Phone: Start: 12-01-2024 Viral nucleic acid assay [facility] Phone: Start: 11-23-2024 Plain chest X-ray [facility] [employer] Phone: Start: 11-15-2024 Plain chest X-ray [facility] [employer] Phone: Start: 11-12-2024 CT of abdomen and pe lvis without contrast [facility] Phone: Start: 11-03-2024 Screening for occult blood in feces [facility] Phone: Start: 11-03-2024 Computed tomography of abdomen and pelvis with contrast [facility] Phone: Start: 10-07-2024 CT of abdomen and pe lvis without contrast [facility] Phone: Start: 09-21-2024 Plain X-ray of right hand [facility] Phone: Start: 09-01-2024 Plain chest X-ray [facility] [employer] Phone: Start: 06-19-2024 Streptococcus pyogen es antigen assay [facility] Phone: Start: 06-15-2024 End: 06-15-2024 Viral nucleic acid assay [facility] [employer] Phone: Start: 06-15-2024 Plain chest X-ray Servi [employer] Work Phone: Start: 06-10-2024 End: 06-10-2024 Viral nucleic acid assay Services [employer] Work Phone: Start: 06-10-2024 Plain chest X-ray [facility] Phone: Start: 05-13-2024 X-ray of right knee, four views [facility] Phone: Start: 05-10-2024 End: 05-10-2024 Viral nucleic acid assay [facility] [employer] Phone: Start: 05-10-2024 [facility] Start: 05-08-2024 Streptococcus pyogen es antigen assay [facility] [employer] Phone: Start: 05-08-2024 Viral nucleic acid assay [facility] [employer] Phone: Start: 05-08-2024 Plain chest X-ray [facility] [employer] Phone: Start: 05-08-2024 End: 05-08-2024 Viral nucleic acid assay Services [employer] Phone: Start: 02-20-2024 End: 02-20-2024 Viral nucleic acid assay [facility] [employer] Phone: Start: 02-20-2024 [facility] Start: 02-14-2024 Plain chest X-ray [facility] [employer] Work Phone: Start: 01-27-2024 Computed tomography of abdomen and pelvis with contrast [facility] Phone: Start: 01-04-2024 Streptococcus pyogen es antigen assay [facility] [employer] Phone: Start: 12-16-2023 [facility] Start: 12-11-2023 SARS-CoV-2, Influenz a & RSV (PCR) Services [employer] Work Phone: Start: 12-11-2023 End: 12-11-2023 Viral nucleic acid assay Services [employer] Phone: Start: 12-11-2023 Computed tomography of abdomen and pelvis with contrast [facility] [employer] Phone: Start: 12-11-2023 Plain chest X-ray [facility] [employer] Phone: Start: 12-05-2023 Plain chest X-ray [facility] Phone: Start: 11-24-2023 Radiography of thora cic spine Services [employer] Phone: Start: 11-24-2023 X-ray of lumbar spin e, two or three views [facility] [employer] Phone: Start: 11-17-2023 Plain chest X-ray [facility] Phone: Start: 11-11-2023 Plain chest X-ray [facility] [employer] Phone: Start: 11-05-2023 Plain chest X-ray [facility] [employer] Phone: Start: 10-03-2023 Plain chest X-ray [facility] [employer] Phone: Start: 10-03-2023 Bacteria identificat ion test [facility] [employer] Phone: Start: 10-03-2023 Trichomonas vaginali s detection Services [employer] Phone: Start: 09-29-2023 Plain chest X-ray Servi [facility] Phone: Start: 09-21-2023 CT of abdomen and pe lvis without contrast [facility] [employer] Phone: Start: 09-19-2023 Plain chest X-ray Servi [employer] Phone: Start: 08-06-2023 CT of abdomen and pe lvis without contrast [facility] [employer] Phone: Start: 07-29-2023 Plain chest X-ray Serv[facility] [employer] Phone: Start: 07-13-2023 Plain chest X-ray Servi [facility] [employer] Phone: Start: 06-19-2023 Plain chest X-ray Servi [facility] [employer] Phone: Start: 06-17-2023 SARS-CoV-2, Influenz a & RSV (PCR) [facility] [employer] Phone: Start: 06-17-2023 Streptococcus pyogen es antigen assay [facility] [employer] Phone: Start: 06-15-2023 Plain chest X-ray Servi [facility] Phone: Start: 06-15-2023 SARS-CoV-2, Influenz a & RSV (PCR) [facility] [employer] Phone: Start: 06-03-2023 SARS-CoV-2, Influenz a & RSV (PCR) [facility] [employer] Phone: Start: 06-03-2023 Plain chest X-ray Servi [facility] [employer] Phone: Start: 05-11-2023 Computed tomography of abdomen and pelvis with contrast [facility] [employer] Phone: Start: 04-06-2023 Computed tomography of abdomen and pelvis with contrast [facility] [employer] Phone: Start: 03-31-2023 Plain chest X-ray Servi [facility] [employer] Phone: Start: 03-24-2023 Plain chest X-ray Servi [facility] [employer] Phone: Start: 03-17-2023 Computed tomography of abdomen and pelvis with contrast [facility] [employer] Phone: Start: 03-17-2023 Screening for occult blood in feces [facility] [employer] Phone: Start: 03-06-2023 CT of abdomen and pe lvis without contrast [facility] [employer] Phone: Start: 01-21-2023 Computed tomography of abdomen and pelvis with contrast [facility] [employer] Phone: Start: 12-04-2022 CT of head without contrast [facility] [employer] Phone: Start: 11-25-2022 Plain chest X-ray Servi [employer] Phone: Start: 11-23-2022 Plain chest X-ray Servi [facility] [employer] Phone: Start: 11-20-2022 SARS-CoV-2, Influenz a & RSV (PCR) [facility] [employer] Phone: Start: 11-18-2022 Plain chest X-ray Servi [employer] Phone: Start: 11-01-2022 Plain chest X-ray Servi [employer] Phone: Start: 10-24-2022 CT of abdomen and pe lvis without contrast [facility] [employer] Phone: Start: 10-09-2022 Plain chest X-ray Servi [employer] Phone: Start: 09-30-2022 Plain chest X-ray Servi [employer] Phone: Start: 09-25-2022 Mammography of right breast [facility] [employer] Phone: Start: 09-07-2022 CT of abdomen and pe lvis without contrast [facility] [employer] Phone: Start: 08-23-2022 Plain chest X-ray Servi [employer] Phone: Start: 08-07-2022 Plain chest X-ray Servi [facility] [employer] Phone: Start: 08-05-2022 Plain X-ray of right hip [facility] [employer] Phone: Start: 08-05-2022 X-ray of lumbar spin e, two or three views [facility] [employer] Phone: Start: 08-04-2022 CT cervical spine wi thout contrast [facility] [employer] Phone: Start: 08-04-2022 CT of head without contrast [facility] [employer] Phone: Start: 08-04-2022 Plain chest X-ray Serv[facility] [employer] Phone: Start: 07-28-2022 CT angiography of head Services [employer] Work Phone: Start: 07-28-2022 CT angiography of ne ck vessels Services [employer] Work Phone: Start: 07-28-2022 CT of head without contrast Services [employer] Work Phone: Start: 07-28-2022 Services [facility] [employer] Work Phone: Start: 07-27-2022 Diagnostic radiograp hy of abdomen Services [employer] Work Phone: Start: 07-18-2022 Screening mammograph y of bilateral breasts [facility] [employer] Phone: Start: 07-18-2022 Pelvic echography Servi [facility] [employer] Phone: Start: 07-18-2022 Transvaginal echography Services [employer] Work Phone: Start: 06-24-2022 Urine culture [facility] [employer] Phone: Start: 06-18-2022 Computed tomography of abdomen and pelvis with contrast [facility] [employer] Phone: Start: 06-10-2022 Diagnostic radiograp hy of abdomen [facility] [employer] Phone: Start: 06-09-2022 Urine culture [facility] [employer] Phone: Start: 05-26-2022 Diagnostic radiograp hy of abdomen [facility] [employer] Phone: Start: 05-22-2022 CT of abdomen and pe lvis without contrast Services [employer] Work Phone: Start: 04-29-2022 Plain chest X-ray Servi [facility] [employer] Phone: Start: 04-16-2022 CT of head without contrast [facility] [employer] Phone: Start: 04-16-2022 Plain chest X-ray Servi [facility] [employer] Work Phone: Start: 04-09-2022 Plain chest X-ray Servi [facility] [employer] Work Phone: Start: 04-04-2022 Plain chest X-ray Servi [facility] [employer] Work Phone: Start: 04-02-2022 CT of abdomen and pe lvis without contrast [facility] [employer] Phone: Start: 03-20-2022 X-ray of lumbar spin e, two or three views Services [employer] Work Phone: Start: 02-26-2022 Diagnostic radiograp hy of abdomen [facility] [employer] Phone: Start: 01-29-2022 Diagnostic radiograp hy of abdomen [facility] [employer] Phone: Start: 01-16-2022 CT of abdomen and pe lvis without contrast [facility] [employer] Phone: Start: 01-05-2022 Plain X-ray of right tibia and right fibula Services [employer] Work Phone: Start: 01-05-2022 X-ray of right foot Ser vices [employer] Phone: Start: 12-28-2021 Plain chest X-ray Servi [facility] [employer] Work Phone: Start: 12-03-2021 CT of facial bones w ithout contrast [facility] [employer] Phone: Start: 12-02-2021 Plain chest X-ray Servi [facility] [employer] Work Phone: Start: 11-25-2021 Plain chest X-ray Servi [employer] Work Phone: Start: 10-09-2021 Plain chest X-ray Servi [employer] Work Phone: Start: 10-08-2021 Plain chest X-ray Servi [facility] [employer] Work Phone: Start: 09-12-2021 CT of abdomen and pe lvis without contrast [facility] [employer] Phone: Bilateral tubal ligation Kiana h Claudia SARS Antigen (LFIA) Services [facility] [facility] Work Phone: Services [facility] Work Phone: Services [facility] Work Phone: Plan of Treatment Date Care Activity Detail Author Start: 12-04-2024 CT Abdomen and Pelvis WO contrast [facility] Start: 12-04-2024 CT of abdomen and pe lvis without contrast [facility] Start: 12-01-2024 End: 12-01-2024 Urine culture [facility] Start: 12-01-2024 [facility] Start: 12-01-2024 Plain chest X-ray [facility] Start: 12-01-2024 XR Chest 2 Views [facility] Start: 11-23-2024 Plain chest X-ray [facility] Start: 11-23-2024 XR Chest 2 Views [facility] Start: 11-03-2024 Computed tomography of abdomen and pelvis with contrast [facility] Start: 11-03-2024 CT Abdomen and Pelvi s W contrast IV [facility] Start: 10-07-2024 CT Abdomen and Pelvis WO contrast [facility] Start: 10-07-2024 CT of abdomen and pe lvis without contrast [facility] Start: 09-01-2024 Plain chest X-ray [facility] Start: 09-01-2024 XR Chest 2 Views [facility] Start: 06-15-2024 Plain chest X-ray [facility] Start: 06-15-2024 XR Chest Single view [facility] Start: 05-10-2024 [facility] Start: 05-10-2024 Plain chest X-ray [facility] Start: 05-10-2024 XR Chest 2 Views [facility] Start: 05-08-2024 Plain chest X-ray [facility] Start: 05-08-2024 XR Chest 2 Views [facility] Start: 02-20-2024 Plain chest X-ray [facility] Start: 02-20-2024 XR Chest 2 Views [facility] Start: 02-14-2024 Plain chest X-ray [facility] Start: 02-14-2024 XR Chest 2 Views [facility] Start: 01-27-2024 Computed tomography of abdomen and pelvis with contrast [facility] Start: 01-27-2024 CT Abdomen and Pelvi s W contrast IV [facility] Start: 12-05-2023 Plain chest X-ray [facility] Start: 12-05-2023 XR Chest 2 Views [facility] Start: 11-24-2023 Radiography of thoracic spine [facility] Start: 11-24-2023 X-ray of lumbar spin e, two or three views [facility] Start: 11-24-2023 XR Lumbar spine 2 or 3 Views [facility] Start: 11-24-2023 XR Thoracic spine 2 Views [facility] Start: 11-17-2023 Plain chest X-ray [facility] Start: 11-17-2023 XR Chest 2 Views [facility] Start: 11-11-2023 Plain chest X-ray [facility] Start: 11-11-2023 XR Chest Single view [facility] Start: 11-05-2023 Plain chest X-ray [facility] Start: 11-05-2023 XR Chest Single view [facility] Start: 10-03-2023 End: 10-03-2023 [facility] Start: 09-29-2023 [facility] Start: 09-29-2023 Plain chest X-ray [facility] Start: 09-29-2023 XR Chest Single view [facility] Start: 09-21-2023 CT Abdomen and Pelvis WO contrast [facility] Start: 09-21-2023 CT of abdomen and pe lvis without contrast [facility] Start: 09-19-2023 Plain chest X-ray [facility] Start: 09-19-2023 XR Chest 2 Views [facility] Start: 08-06-2023 CT Abdomen and Pelvis WO contrast [facility] Start: 08-06-2023 CT of abdomen and pe lvis without contrast [facility] Start: 07-29-2023 Plain chest X-ray [facility] Start: 07-29-2023 XR Chest 2 Views [facility] Start: 06-15-2023 [facility] Start: 03-24-2023 Plain chest X-ray [facility] Start: 03-24-2023 XR Chest 2 Views [facility] Start: 03-17-2023 Blood chemistry [facility] Start: 03-17-2023 Hepatic function panel [facility] Start: 03-17-2023 [facility] Start: 03-17-2023 Computed tomography of abdomen and pelvis with contrast [facility] Start: 03-17-2023 CT Abdomen and Pelvi s W contrast IV [facility] Start: 12-04-2022 CT of head without contrast [facility] Start: 12-04-2022 CT Unspecified body region WO contrast [facility] Start: 11-25-2022 Plain chest X-ray [facility] Start: 11-25-2022 XR Chest 2 Views [facility] Start: 11-18-2022 Plain chest X-ray [facility] Start: 11-01-2022 Plain chest X-ray [facility] Start: 11-01-2022 XR Chest 2 Views [facility] Start: 09-30-2022 Plain chest X-ray [facility] Start: 09-30-2022 XR Chest Single view [facility] Start: 09-25-2022 Ultrasonography of right breast [facility] Start: 08-07-2022 Plain chest X-ray [facility] Start: 08-07-2022 XR Chest Single view [facility] Start: 08-05-2022 Plain X-ray of right hip [facility] Start: 08-05-2022 X-ray of lumbar spin e, two or three views [facility] Start: 08-05-2022 XR Hip - right 2 Views [facility] Start: 08-05-2022 XR Lumbar spine 2 or 3 Views [facility] Start: 08-04-2022 CT cervical spine wi thout contrast [facility] Start: 08-04-2022 CT Cervical spine WO contrast [facility] Start: 08-04-2022 CT of head without contrast [facility] Start: 08-04-2022 CT Unspecified body region WO contrast [facility] Start: 08-04-2022 Plain chest X-ray [facility] Start: 08-04-2022 XR Chest 2 Views [facility] Start: 07-28-2022 CT angiography of head [facility] Start: 07-28-2022 CT angiography of neck vessels [facility] Start: 07-28-2022 CT of head without contrast [facility] Start: 07-28-2022 CT Unspecified body region WO contrast [facility] Start: 06-24-2022 [facility] Start: 06-13-2022 [facility] Start: 06-09-2022 [facility] Start: 06-09-2022 Hospital admission [facility] Start: 05-26-2022 Diagnostic radiography of abdomen [facility] Start: 04-29-2022 Plain chest X-ray [facility] Start: 04-29-2022 XR Chest Single view [facility] Start: 04-16-2022 CT of head without contrast [facility] Start: 04-16-2022 CT Unspecified body region WO contrast [facility] Start: 04-16-2022 Plain chest X-ray [facility] Start: 04-16-2022 XR Chest 2 Views [facility] Start: 04-09-2022 Plain chest X-ray [facility] Start: 04-09-2022 XR Chest Single view [facility] Start: 04-04-2022 Plain chest X-ray [facility] Start: 04-04-2022 XR Chest Single view [facility] Start: 04-02-2022 CT Abdomen and Pelvis WO contrast [facility] Start: 04-02-2022 CT of abdomen and pe lvis without contrast [facility] Start: 02-26-2022 Diagnostic radiography of abdomen [facility] Start: 02-26-2022 XR Abdomen Views [facility] Start: 01-16-2022 CT Abdomen and Pelvis WO contrast [facility] Start: 01-16-2022 CT of abdomen and pe lvis without contrast [facility] Start: 01-05-2022 Plain X-ray of right tibia and right fibula [facility] Start: 01-05-2022 X-ray of right foot [facility] Start: 01-05-2022 XR Foot - right 2 Views [facility] Start: 01-05-2022 XR Tibia and Fibula - right 2 Views [facility] Start: 12-28-2021 Plain chest X-ray [facility] Start: 12-28-2021 XR Chest Single view [facility] Start: 12-02-2021 Plain chest X-ray [facility] Start: 12-02-2021 XR Chest Single view [facility] Work Phone: Start: 11-25-2021 Plain chest X-ray [facility] Start: 11-25-2021 End: 11-26-2021 [facility] Start: 11-24-2021 End: 11-25-2021 [facility] Start: 11-10-2021 End: 11-11-2021 [facility] Albumin/Globulin ratio [facility] Anion gap measurement [facility] Bacteria identified in Genital specimen by Aerobe culture [facility] Bacteria identified in Urine by Culture [facility] Bacteria identified in Urine by Culture [facility] Basophils [#/volume] in Blood by Automated count [facility] Basophils/100 leukoc ytes in Blood by Automated count [facility] Chlamydia trachomati s rRNA [Presence] in Cervix by EMI with probe detection [facility] Eosinophils/100 leuk ocytes in Blood by Automated count [facility] Erythrocyte distribu tion width [Ratio] by Automated count [facility] Erythrocytes [#/volume] in Blood [facility] Globulin [Mass/volume] in Serum [facility] Hematocrit [Volume F raction] of Blood [facility] Hemoglobin [Mass/volume] in Blood [facility] Human papilloma viru s 16+18+31+33+35+39+45+51+52+56+58+ 59+66+68 DNA [Presence] in Cervix by Probe with signal amplification [facility] Human papilloma viru s 16+18+31+33+35+39+45+51+52+56+58+ 59+68 DNA [Presence] in Cervix by Probe with signal amplification [facility] Leukocytes [#/volume ] corrected for nucleated erythrocytes in Blood by Automated coun [facility] Leukocytes [#/volume] in Blood [facility] Lymphocytes [#/volum e] in Blood by Automated count [facility] Lymphocytes/100 leuk ocytes in Blood by Automated count [facility] MCH [Entitic mass] b y Automated count [facility] MCHC [Mass/volume] b y Automated count [facility] MCV [Entitic volume] by Automated count [facility] Monocytes [#/volume] in Blood by Automated count [facility] Monocytes/100 leukoc ytes in Blood by Automated count [facility] Neisseria gonorrhoea e rRNA [Presence] in Cervix by EMI with probe detection [facility] Neutrophils [#/volum e] in Blood by Automated count [facility] Neutrophils/100 leuk ocytes in Blood by Automated count [facility] Nucleated erythrocyt es [Presence] in Blood by Automated count [facility] Patient Education [facility] Work Phone: Patient referral [facility] Work Phone: Platelet mean volume [Entitic volume] in Blood by Automated count [facility] Platelets [#/volume] in Blood [facility] Payers Date Payer Category Payer Unknown [id number] [facility] [id number] 2023 Self-pay [id number] 2023 Unknown [id number] 1973 Unknown [id number] 2.16. 840.1.970624.3.579.2.356 1973 Unknown [id number] 2.16.84 0.1.336405.3.579.2.593 1973 Unknown [id number] 2.16.84 0.1.039433.3.579.2.593 1973 Unknown [id number] 2.16.84 0.1.204326.3.579.2.593 1973 Unknown [id number] 2.16.84 0.1.324447.3.579.2.593 1973 Unknown [id number] 2.16.84 0.1.919153.3.579.2.593 1973 Unknown [id number] 2.16.8 40.1.453534.3.579.2.727 1973 Unknown [id number] 2.16.8 40.1.730435.3.579.2.727 1973 Unknown [id number] 2.16.8 40.1.487589.3.579.2.727 1973 Unknown [id number] 2.16.8 40.1.841549.3.579.2.727 1973 Unknown [id number] 2.16.8 40.1.689538.3.579.2.727 1973 Unknown [id number] 2.16.8 40.1.197365.3.579.2.727 1973 Unknown [id number] 2.16.8 40.1.368918.3.579.2.727 1973 Unknown [id number] 2.16.8 40.1.804614.3.579.2.727 1973 Unknown [id number] 2.16.8 40.1.572892.3.579.2. 1973 Unknown [id number] 2.16.8 40.1.309489.3.579.2. 1973 Unknown [id number] 2.16.8 40.1.749749.3.579.2. 1973 Unknown [id number] 2.16.8 40.1.044526.3.579.2. 1973 Unknown [id number] 2.16.8 40.1.721500.3.579.2. 1973 Unknown [id number] 2.16.8 40.1.497764.3.579.2. 1973 Unknown [id number] 2.16.8 40.1.856420.3.579.2. 1973 Unknown [id number] 2.16.8 40.1.625333.3.579.2. 1973 Unknown [id number] 2.16.8 40.1.747578.3.579.2. 1973 Unknown [id number] 2.16.8 40.1.792508.3.579.2. 1973 Unknown [id number] 2.16.8 40.1.577266.3.579.2 1973 Unknown [id number] 2.16.8 40.1.513645.3.579.2. 1973 Unknown [id number] 2.16.8 40.1.151212.3.579.2.727 1961 Medicaid [id number] Unknown [id number] Unknown [id number] 2.16.8 40.1.256897.3.579.2.531 Unknown [id number] 2.16.8 40.1.884466.3.579.2.531 Unknown [id number] 2.16.8 40.1.449052.3.579.2.531 Unknown [id number] 2.16.8 40.1.655649.3.579.2.531 Unknown [id number] 2.16.8 40.1.252976.3.579.2.531 Unknown [id number] 2.16.8 40.1.047395.3.579.2.531 Unknown [id number] 2.16.8 40.1.593725.3.579.2.531 Unknown [id number] 2.16.8 40.1.406697.3.579.2.531 Unknown [id number] 2.16.8 40.1.217442.3.579.2.531 Unknown [id number] 2.16.8 40.1.425799.3.579.2.531 Unknown [id number] 2.16.8 40.1.639258.3.579.2.531 Unknown [id number] 2.16.8 40.1.078834.3.579.2.531 Unknown [id number] 2.16.8 40.1.769190.3.579.2.531 Unknown [id number] 2.16.8 40.1.740006.3.579.2.531 Unknown [id number] 2.16.8 40.1.555763.3.579.2.531 Unknown [id number] 2.16.8 40.1.827433.3.579.2.531 Unknown [id number] 2.16.8 40.1.552544.3.579.2.531 Unknown [id number] 2.16.8 40.1.426236.3.579.2.531 Unknown [id number] 2.16.8 40.1.144636.3.579.2.531 Unknown [id number] 2.16.8 40.1.123426.3.579.2.531 Unknown [id number] 2.16.8 40.1.025150.3.579.2.531 Unknown [id number] 2.16.8 40.1.016845.3.579.2.531 Unknown [id number] 2.16.8 40.1.370752.3.579.2.531 Unknown [id number] 2.16.8 40.1.561042.3.579.2.531 Unknown [id number] 2.16.8 40.1.416568.3.579.2.531 Social History Date Type Detail Facility Start: 11-26-2021 End: 09-01-2024 Tobacco smoking status NHIS Smoker (finding) [facility] Start: 1975 Sex Assigned At Female [facility] Start: 12-05-2021 Tobacco smoking status Heavy tobacco smoker (finding) [facility] Start: 04-01-1989 End: 05-02-2022 Sex Assigned At Female [facility] Start: 02-26-2022 Tobacco smoking status NHIS Unknown if ever smoked [facility] Start: 05-22-2022 End: 12-15-2024 Tobacco smoking status NHIS Never smoked tobacco (finding) [facility] Start: 06-24-2022 End: 11-23-2024 Tobacco smoking status NHIS Ex-smoker (finding) [facility] Start: 02-10-2024 End: 09-01-2024 Sex Female (finding) [facility] Start: 10-07-2024 End: 12-04-2024 Tobacco smoking status NHIS Smokes tobacco daily (finding) [facility] NEGATED: Highlighted row [facility] NEGATED: Highlighted row N [facility] Medical Equipment Procedure Code Equipment Code Equipment Origin al Text Equipment Identifier Dates FDA Start: 02-26-2018 FDA Start: 02-26-2018 FDA Start: 02-26-2018 FDA Start: 02-26-2018 FDA Start: 02-26-2018 FDA Start: 02-26-2018 FDA Start: 02-26-2018 FDA Start: 02-26-2018 FDA Start: 02-26-2018 FDA Start: 02-26-2018 FDA Start: 02-26-2018 FDA Start: 02-26-2018 STENT CONTOUR 6F R X 22-30CM FDA Start: 02-26-2018 FDA Start: 02-26-2018 FDA Start: 02-26-2018 FDA Start: 02-26-2018 FDA Start: 02-26-2018 FDA Start: 02-26-2018 FDA Start: 02-26-2018 FDA Start: 02-26-2018 FDA Start: 02-26-2018 FDA Start: 02-26-2018 FDA Start: 02-26-2018 FDA Start: 02-26-2018 FDA Start: 02-26-2018 FDA Start: 02-26-2018 FDA Start: 02-26-2018 FDA Start: 02-26-2018 FDA Start: 02-26-2018 FDA Start: 02-26-2018 FDA Start: 02-26-2018 FDA Start: 02-26-2018 FDA Start: 02-26-2018 FDA Start: 02-26-2018 FDA Start: 02-26-2018 FDA Start: 02-26-2018 FDA Start: 02-26-2018 FDA Start: 02-26-2018 FDA Start: 02-26-2018 FDA Start: 02-26-2018 FDA Start: 02-26-2018 FDA Start: 02-26-2018 FDA Start: 02-26-2018 FDA Start: 02-26-2018 FDA Start: 02-26-2018 FDA Start: 02-26-2018 FDA Start: 02-26-2018 FDA Start: 02-26-2018 FDA Start: 02-26-2018 FDA Start: 02-26-2018 FDA Start: 02-26-2018 FDA Start: 02-26-2018 FDA Start: 02-26-2018 FDA Start: 02-26-2018 FDA Start: 02-26-2018 FDA Start: 02-26-2018 FDA Start: 02-26-2018 FDA Start: 02-26-2018 FDA Start: 02-26-2018 FDA Start: 02-26-2018 FDA Start: 02-26-2018 FDA Start: 02-26-2018 FDA Start: 02-26-2018 FDA Start: 02-26-2018 FDA Start: 02-26-2018 FDA Start: 02-26-2018 FDA Start: 02-26-2018 FDA Start: 02-26-2018 FDA Start: 02-26-2018 FDA Start: 02-26-2018 FDA Start: 02-26-2018 FDA Start: 02-26-2018 FDA Start: 02-26-2018 FDA Start: 02-26-2018 FDA Start: 02-26-2018 FDA Start: 02-26-2018 FDA Start: 02-26-2018 FDA Start: 02-26-2018 FDA Start: 02-26-2018 FDA Start: 02-26-2018 FDA Start: 02-26-2018 FDA Start: 02-26-2018 FDA Start: 02-26-2018 FDA Start: 02-26-2018 FDA Start: 02-26-2018 FDA Start: 02-26-2018 FDA Start: 02-26-2018 FDA Start: 02-26-2018 FDA Start: 02-26-2018 FDA Start: 02-26-2018 FDA Start: 02-26-2018 FDA Start: 02-26-2018 FDA Start: 02-26-2018 FDA Start: 02-26-2018 FDA Start: 02-26-2018 FDA Start: 02-26-2018 FDA Start: 02-26-2018 FDA Start: 02-26-2018 FDA Start: 02-26-2018 FDA Start: 02-26-2018 FDA Start: 02-26-2018 FDA Start: 02-26-2018 FDA Start: 02-26-2018 Goals Date Patient Goal Desired Activity /State Functional Status Date Assessment Result Facility 01-19-2024 Functional Status N/A [facility] 12-18-2023 Functional Status N/A [facility] 12-08-2023 Functional Status N/A [facility] 12-01-2023 Functional Status N/A [facility] 11-18-2023 Functional Status N/A [facility] 11-18-2023 Functional Status N/A [facility] 10-06-2023 Functional Status N/A [facility] 04-15-2023 Functional Status N/A [facility] 03-29-2023 Functional Status N/A [facility] 03-25-2023 Functional Status N/A [facility] 12-10-2022 Functional Status N/A [facility] 10-27-2022 Functional Status N/A [facility] 09-17-2022 Functional Status N/A [facility] 06-13-2022 Functional status Patient at [facility] [facility] Work Phone: 02-04-2022 Functional Status N/A [facility] 01-28-2022 Functional Status N/A [facility] 12-28-2021 Functional Status N/A [facility] 12-05-2021 Functional Status N/A [facility] Mental Status Date Assessment Result Facility 06-13-2022 Cognitive function Patient at [facility] Work Phone: Clinical Notes 12-05-2021 to 12-01-2024 Note Date & Type Note Facility 12-01-2024 Hospital Discharg e instructions Additional Instructions Please return to emergency department for any new or worrisome symptoms including return of headache, vision change, numbness, weakness, tingling, vomiting, fever, abdominal pain, chest pain or shortness of breath. Follow-up with your family physician within the next 1 to 2 days as you may require further testing on an outpatient basis. [facility] Work Phone: 11-12-2024 Radiology Diagnostic study note [facility] Work Phone: 01-27-2024 Hospital Discharg e instructions Additional Instructions Please return to emergency department for any new or worrisome symptoms including any worsening abdominal pain, vomiting, fever, difficulty urinating, chest pain or shortness of breath. Follow-up with your family physician within the next 1 to 2 days. [facility] Work Phone: 01-19-2024 Evaluation + Plan note Extrac jacki from: Title:ED Note Author:Donis Taylor DO Date :01/19/24 Pain, dental (K08.89: Other specified disorders of teeth and supporting structures) Orders: benzocaine topical, 1 iliana, Gel, Topical, QID for 30 day(s), Stop date 02/18/24 6:38:00 EST, STAT, Start date 01/19/24 6:39:00 EDT clindamycin, 450 mg = 3 cap(s), Cap, Oral, Once, Stop date 01/19/24 6:39:00 EDT, STAT, Start date 01/19/24 6:39:00 EDT, 01/19/24 6:39:00 EDT clindamycin, 450 mg = 3 cap(s), Oral, q8hr, X 7 day(s), # 63 cap(s), Refills(s) 0, [facility]: [facility] [id number], 160, cm, 01/19/24 3:44:00 EDT, Height/Length Dosing, 90.4, kg, 01/19/24 3:44:00 EDT, Weight Dosing cyclobenzaprine, 10 mg = 1 tab(s), Oral, TID, PRN Muscle pain, # 16 tab(s), Refills(s) 0, Pharmacy: [facility] #[id number], 160, cm, 08/22/22 0:30:00 EDT, Height/Length Dosing, 88, kg, 08/22/22 0:30:00 EDT, Weight Dosing lidocaine topical, 200 mg, 10 mL, Soln-Oral, Oral, Once, Stop date 01/19/24 6:39:00 EDT, STAT, Start date 01/19/24 6:39:00 EDT naproxen, 500 mg = 1 tab(s), Oral, BID, PRN Pain, # 20 tab(s), Refills(s) 0, Pharmacy: [facility] #[id number], 160, cm, 08/22/22 0:30:00 EDT, Height/Length Dosing, 88, kg, 08/22/22 0:30:00 EDT, Weight Dosing naproxen, 500 mg = 1 tab(s), Oral, BID, PRN Pain, # 10 tab(s), Refills(s) 0, [facility] [id number], 160, cm, 11/18/23 1:02:00 EDT, Height/Length Dosing, 93.2, kg, 11/18/23 1:02:00 EDT, Weight Dosing ondansetron, 4 mg = 1 tab(s), Oral, q8hr, PRN Nausea/Vomiting, # 12 tab(s), Refills(s) 0, [facility] [id number], 160, cm, 11/18/23 1:02:00 EDT, Height/Length Dosing, 93.2, kg, 11/18/23 1:02:00 EDT, Weight Dosing ondansetron, 4 mg = 1 tab(s), Oral, q8hr, PRN Nausea/Vomiting, # 16 tab(s), Refills(s) 0, Pharmacy: [facility] #[id number], 160, cm, 09/09/22 18:26:00 EDT, Height/Length Dosing, 88, kg, 09/09/22 18:26:00 EDT, Weight Dosing [facility] 10-20-2024 Hospital Discharge instructions Patient Education 01/19/2024 06:56:24 Dental Pain Dental Pain Dental pain is often a sign that something is wrong with your teeth or gums. It is also something that can occur following dental treatment. If you have dental pain, it is important to contact your dental care provider, especially if the cause of the pain has not been determined. Dental pain may beof varying intensity and can be caused by many things, including: Tooth decay (cavities or caries). Cavities are caused by bacteria that produce acids that irritate the nerve of your tooth, making it sensitive to air and hot or cold temperatures. This eventually causes discomfort or pain. Abscess or infection. Once the bacteria reach the inner part of the tooth (pulp), a bacterial infection (dental abscess) can occur. Pus typically collects at the end of the root of a tooth. Injury. A crack in the tooth. Gum recession exposing the root, and possibly the nerves, of a tooth. Gum (periodontal)disease. Abnormal grinding or clenching. Poor or improper home care. An unknown reason (idiopathic). Your pain may be mild or severe. It may occur when you are: Chewing. Exposed to hot or cold temperatures. Eating or drinking sugary foods or beverages, such as soda or candy. Your pain may be constant, or it may come and go without cause. Follow these instructions at home: The following actions may help to lessen any discomfort that you are feeling before or after getting dental care. Medicines Take kyjv-osm-zcojnrk and prescription medicines only as told by your dental care provider. If you were prescribed an antibiotic medicine, take it as told by your dental care provider. Do notstop taking the antibiotic even if you start to feel better. Eating and drinking Avoid foods or drinks that cause you pain, such as: Very hot or very cold foods or drinks. Sweet or sugary foods or drinks. Managing pain and swelling Ice can sometimes be used to reduce pain and swelling, especially if the pain is following dental treatment. If directed, put ice on the painful area of your face. To do this: ?Put ice in a plastic bag. ?Place a towel between your skin and the bag. ?Leave the ice on for 20 minutes, 2 3 times a day. ?Remove the ice if your skin turns bright red. This is very important. If you cannot feel pain, heat, or cold, you have a greater risk of damage to the area. Brushing your teeth To keep your mouth and gums healthy, brush your teeth twice a day using a fluoride toothpaste. Use a toothpaste made for sensitive teeth as directed by your dental care provider, especially if the root is exposed. Always brush your teeth with a soft-bristled toothbrush. This will help prevent irritation to your gums. General instructions Floss at least once a day. Do not apply heat to the outside of the face. Gargle with a mixture of salt and water 3 4 times a day or as needed. To make salt water, completely dissolve 1 tsp (3 6 g) of salt in 1 cup (237 mL) of warm water. Keep all follow-up visits. This is important. Contact a dental care provider if: You have any unexplained dental pain. Your pain is not controlled with medicines. Your symptoms get worse. You have new symptoms. Get help right away if: You are unable to open your mouth. You are having trouble breathing or swallowing. You have a fever. You notice that your face, neck, or jaw is swollen. These symptoms may represent a serious problem that is an emergency. Do not wait to see if the symptoms will go away. Get medical help right away. Call your local emergency services (911 in the [place] Do not drive yourself to the hospital. Summary Dental pain may be caused by many things, including tooth decay and infection. Your pain may be mild or severe. Take jutt-pqw-mxsjccr and prescription medicines only as told by your dental care provider. Watch your dental pain for any changes. Let your dental care provider know if your symptoms get worse. This information is not intended to replace advice given to you by your health care provider. Make sure you discuss any questions you have with your health care provider. Document Revised: 12/21/2020 Document Reviewed: 12/21/2020 [employer] Patient Education 2023 [employer]. Follow Up Care 01/19/2024 03:06:39 With:Dental: [facility] [phone] Address:Unknown When:01/22/2024 06:41:27 With:Dental: [facility] [phone] Address:Unknown When:01/22/2024 06:41:26 With:Dental: [facility] [phone] Address:Unknown When:01/22/2024 06:41:26 With:REBECCA NAVAS Address: [address] [place] [address]- When:Within 3 Day(s) [facility] 10-20-2024 NoteED Patient Education Note Dentistry Dental Pain Dental pain is often a sign that something is wrong with your teeth or gums. It is also something that can occur following dental treatment. If you have dental pain, it is important to contact your dental care provider, especially if the cause of the pain has not been determined. Dental pain may beof varying intensity and can be caused by many things, including: ? Tooth decay (cavities or caries). Cavities are caused by bacteria that produce acids that irritate the nerve of your tooth, making it sensitive to air and hot or cold temperatures. This eventually causes discomfort or pain. ? Abscess or infection. Once the bacteria reach the inner part of the tooth (pulp), a bacterial infection (dental abscess) can occur. Pus typically collects at the end of the root of a tooth. ? Injury. ? A crack in the tooth. ? Gum recession exposing the root, and possibly the nerves, of a tooth. ? Gum (periodontal)disease. ? Abnormal grinding or clenching. ? Poor or improper home care. ? An unknown reason (idiopathic). Your pain may be mild or severe. It may occur when you are: ? Chewing. ? Exposed to hot or cold temperatures. ? Eating or drinking sugary foods or beverages, such as soda or candy. Your pain may be constant, or it may come and go without cause. Follow these instructions at home: The following actions may help to lessen any discomfort that you are feeling before or after getting dental care. Medicines ? Take rfdc-tly-ufpdbyq and prescription medicines only as told by your dental care provider. ? If you were prescribed an antibiotic medicine, take it as told by your dental care provider. Do not stop taking the antibiotic even if you start to feel better. Eating and drinking Avoid foods or drinks that cause you pain, such as: ? Very hot or very cold foods or drinks. ? Sweet or sugary foods or drinks. Managing pain and swelling ? Ice can sometimes be used to reduce pain and swelling, especially if the pain is following dentaltreatment. ? If directed, put ice on the painful area of your face. To do this: ? Put ice in a plastic bag. ? Place a towel between your skin and the bag. ? Leave the ice on for 20 minutes, 2?3 times a day. ? Remove the ice if your skin turns bright red. This is very important. If you cannot feel pain, heat, or cold, you have a greater risk of damage to the area. Brushing your teeth ? To keep your mouth and gums healthy, brush your teeth twice a day using a fluoride toothpaste. ? Use a toothpaste made for sensitive teeth as directed by your dental care provider, especially ifthe root is exposed. ? Always brush your teeth with a soft-bristled toothbrush. This will help prevent irritation to your gums. General instructions ? Floss at least once a day. ? Do not apply heat to the outside of the face. ? Gargle with a mixture of salt and water 3?4 times a day or as needed. To make salt water, completely dissolve ??1 tsp (3?6 g) of salt in 1 cup (237 mL) of warm water. ? Keep all follow-up visits. This is important. Contact a dental care provider if: ? You have any unexplained dental pain. ? Your pain is not controlled with medicines. ? Your symptoms get worse. ? You have new symptoms. Get help right away if: ? You are unable to open your mouth. ? You are having trouble breathing or swallowing. ? You have a fever. ? You notice that your face, neck, or jaw is swollen. These symptoms may represent a serious problem that is an emergency. Do not wait to see if the symptoms will go away. Get medical help right away. Call your local emergency services (911 in the [place] Do not drive yourself to the hospital. Summary ? Dental pain may be caused by many things, including tooth decay and infection. ? Your pain may be mild or severe. ? Take lcjf-wtl-wpoysgd and prescription medicines only as told by your dental care provider. ? Watch your dental pain for any changes. Let your dental care provider know if your symptoms get worse. This information is not intended to replace advice given to you by your health care provider. Make sure you discuss any questions you have with your health care provider. Document Revised: 12/21/2020 Document Reviewed: 12/21/2020 [employer] Patient Education ? 2023 [employer] 12-19-2023 Hospital Discharge instructions Patient Education 12/18/2023 23:39:56 Chest Wall Pain Chest Wall Pain Chest wall pain is pain in or around the bones and muscles of your chest. Sometimes, an injury causes this pain. Excessive coughing or overuse of arm and chest muscles may also cause chest wall pain.Sometimes, the cause may not be known. This pain may take several weeks or longer to get better. Follow these instructions at home: Managing pain, stiffness, and swelling If directed, put ice on the painful area: ?Put ice in a plastic bag. ?Place a towel between your skin and the bag. ?Leave the ice on for 20 minutes, 2 3 times per day. Activity Rest as told by your health care provider. Avoid activities that cause pain. These include any activities that use your chest muscles or your abdominal and side muscles to lift heavy items. Ask your health care provider what activities are safe for you. General instructions Take wymn-daj-pcmouro and prescription medicines only as told by your health care provider. Do not use any products that contain nicotine or tobacco, such as cigarettes, e- cigarettes, and chewing tobacco. These can delay healing after injury. If you need help quitting, ask your health care provider. Keep all follow-up visits as told by your health care provider. This is important. Contact a health care provider if: You have a fever. Your chest pain becomes worse. You have new symptoms. Get help right away if: You have nausea or vomiting. You feel sweaty or light-headed. You have a cough with mucus from your lungs (sputum) or you cough up blood. You develop shortness of breath. These symptoms may represent a serious problem that is an emergency. Do not wait to see if the symptoms will go away. Get medical help right away. Call your local emergency services (911 in the [place] Do not drive yourself to the hospital. Summary Chest wall pain is pain in or around the bones and muscles of your chest. Depending on the cause, it may be treated with ice, rest, medicines, and avoiding activities that cause pain. Contact a health care provider if you have a fever, worsening chest pain, or new symptoms. Get help right away if you feel light-headed or you develop shortness of breath. These symptoms maybe an emergency. This information is not intended to replace advice given to you by your health care provider. Make sure you discuss any questions you have with your health care provider. Document Revised: 03/11/2023 Document Reviewed: 03/11/2023 [employer] Patient Education 2023 [employer]. Follow Up Care 12/18/2023 20:31:09 With:REBECCA NAVAS Address: [address] [place] [address]- When:12/21/2023 [facility] 09-18-2024 NoteED Patient Education Note Orthopedics Chest Wall Pain Chest wall pain is pain in or around the bones and muscles of your chest. Sometimes, an injury causes this pain. Excessive coughing or overuse of arm and chest muscles may also cause chest wall pain.Sometimes, the cause may not be known. This pain may take several weeks or longer to get better. Follow these instructions at home: Managing pain, stiffness, and swelling ? If directed, put ice on the painful area: ? Put ice in a plastic bag. ? Place a towel between your skin and the bag. ? Leave the ice on for 20 minutes, 2?3 times per day. Activity ? Rest as told by your health care provider. ? Avoid activities that cause pain. These include any activities that use your chest muscles or your abdominal and side muscles to lift heavy items. Ask your health care provider what activities are safe for you. General instructions ? Take uica-ftm-sqwmivr and prescription medicines only as told by your health care provider. ? Do not use any products that contain nicotine or tobacco, such as cigarettes, e-cigarettes, and chewing tobacco. These can delay healing after injury. If you need help quitting, ask your health care provider. ? Keep all follow-up visits as told by your health care provider. This is important. Contact a health care provider if: ? You have a fever. ? Your chest pain becomes worse. ? You have new symptoms. Get help right away if: ? You have nausea or vomiting. ? You feel sweaty or light-headed. ? You have a cough with mucus from your lungs (sputum) or you cough up blood. ? You develop shortness of breath. These symptoms may represent a serious problem that is an emergency. Do not wait to see if the symptoms will go away. Get medical help right away. Call your local emergency services (911 in the [place] Do not drive yourself to the hospital. Summary ? Chest wall pain is pain in or around the bones and muscles of your chest. ? Depending on the cause, it may be treated with ice, rest, medicines, and avoiding activities thatcause pain. ? Contact a health care provider if you have a fever, worsening chest pain, or new symptoms. ? Get help right away if you feel light-headed or you develop shortness of breath. These symptoms may be an emergency. This information is not intended to replace advice given to you by your health care provider. Make sure you discuss any questions you have with your health care provider. Document Revised: 03/11/2023 Document Reviewed: 03/11/2023 [employer] Patient Education ? 2023 [employer] 12-11-2023 Hospital Discharge instructions Additional Instructions Please return to emergency department for any new or worrisome symptoms including any fever, vomiting, difficulty breathing, chest pain, difficulty urinating. Follow-up with your family physician within the next 1 to 2 days.[facility] Work Phone: [phone]) 812-171709-08-2024 Evaluation + Plan noteExtracted from: Title:ED Note Author:Marshall Henriquez DO Date :12/08/23 Chest pain (R07.9: Chest vinicius n, unspecified) Orders: Al hydroxide/Mg hydroxide/simethicone, 30 mL, Susp-Oral, Oral, Once, Stop date 12/08/23 3:21:00 EDT, STAT, Start date 12/08/23 3:21:00 EDT aspirin, 162 mg = 2 tab(s), Tab-Chew, Oral, Once, Stop date 12/08/23 3:21:00 EDT, STAT, Start date 12/08/23 3:21:00 EDT, 12/08/23 3:21:00 EDT atropine/hyoscyamine/PB/scopolamine, 10 mL, Elixir, Oral, Once, Stop date 12/08/23 3:21:00 EDT, STAT, Start date 12/08/23 3:21:00 EDT ketorolac, 30 mg = 1 mL, Injection, IV Push, Once, Stop date 12/08/23 3:21:00 EDT, STAT, Start date 12/08/23 3:21:00 EDT, 12/08/23 3:21:00 EDT lidocaine topical, 200 mg, 10 mL, Soln-Oral, Oral, Once, Stop date 12/08/23 3:21:00 EDT, STAT, Start date 12/08/23 3:21:00 EDT omeprazole, 20 mg = 1 cap(s), Oral, Daily, # 14 tab(s), Refills(s) 0, Pharmacy: [facility] [id number], 160, cm, 12/08/23 3:21:00 EDT, Height/Length Dosing, 93.3, kg, 12/08/23 3:21:00 EDT, Weight Dosing ondansetron, 4 mg = 2 mL, Injection, IV Push, Once, Stop date 12/08/23 3:21:00 EDT, STAT, Start date 12/08/23 3:21:00 EDT, 12/08/23 3:21:00 EDT Basic Metabolic Panel CBC w/ Auto Diff ECG 12 Lead Adult ED Cardiac Monitoring eGFR Lipase Level Magnesium Level Oxygen Saturation Oxygen Therapy PT & PTT Saline Lock Insert Troponin 0 Hr. Troponin 1 Hr. XR Chest Single View [facility] 09-08-2024 Hospital Discharge instructions Patient Education 12/08/2023 05:32:34 Nonspecific Chest Pain, Adult, Ruet-ss-Urtm Nonspecific Chest Pain Chest pain can be caused by many different conditions. Some causes of chest pain can be life-threatening. These will require treatment right away. Serious causes of chest pain include: Heart attack. A tear in the body's main blood vessel. Redness and swelling (inflammation) around your heart. Blood clot in your lungs. Other causes of chest pain may not be so serious. These include: Heartburn. Anxiety or stress. Damage to bones or muscles in your chest. Lung infections. Chest pain can feel like: Pain or discomfort in your chest. Crushing, pressure, aching, or squeezing pain. Burning or tingling. Dull or sharp pain that is worse when you move, cough, or take a deep breath. Pain or discomfort that is also felt in your back, neck, jaw, shoulder, or arm, or pain that spreads to any of these areas. It is hard to know whether your pain is caused by something that is serious or something that is not so serious. So it is important to see your doctor right away if you have chest pain. Follow these instructions at home: Medicines Take kdkz-flb-bdrjhja and prescription medicines only as told by your doctor. If you were prescribed an antibiotic medicine, take it as told by your doctor. Do not stop taking the antibiotic even if you start to feel better. Lifestyle Rest as told by your doctor. Do not use any products that contain nicotine or tobacco, such as cigarettes, e- cigarettes, and chewing tobacco. If you need help quitting, ask your doctor. Do not drink alcohol. Make lifestyle changes as told by your doctor. These may include: ?Getting regular exercise. Ask your doctor what activities are safe for you. ?Eating a heart-healthy diet. A diet and animal care specialist (dietitian) can help you to learn healthy eating options. ?Staying at a healthy weight. ?Treating diabetes or high blood pressure, if needed. ?Lowering your stress. Activities such as yoga and relaxation techniques can help. General instructions Pay attention to any changes in your symptoms. Tell your doctor about them or any new symptoms. Avoid any activities that cause chest pain. Keep all follow-up visits as told by your doctor. This is important. You may need more testing if your chest pain does not go away. Contact a doctor if: Your chest pain does not go away. You feel depressed. You have a fever. Get help right away if: Your chest pain is worse. You have a cough that gets worse, or you cough up blood. You have very bad (severe) pain in your belly (abdomen). You pass out (faint). You have either of these for no clear reason: ?Sudden chest discomfort. ?Sudden discomfort in your arms, back, neck, or jaw. You have shortness of breath at any time. You suddenly start to sweat, or your skin gets clammy. You feel sick to your stomach (nauseous). You throw up (vomit). You suddenly feel lightheaded or dizzy. You feel very weak or tired. Your heart starts to beat fast, or it feels like it is skipping beats. These symptoms may be an emergency. Do not wait to see if the symptoms will go away. Get medical help right away. Call your local emergency services (911 in the [place] Do not drive yourself to the hospital. Summary Chest pain can be caused by many different conditions. The cause may be serious and need treatment right away. If you have chest pain, see your doctor right away. Follow your doctor's instructions for taking medicines and making lifestyle changes. Keep all follow-up visits as told by your doctor. This includes visits for any further testing if your chest pain does not go away. Be sure to know the signs that show that your condition has become worse. Get help right away if you have these symptoms. This information is not intended to replace advice given to you by your health care provider. Make sure you discuss any questions you have with your health care provider. Document Revised: 01/31/2023 Document Reviewed: 01/31/2023 [employer] Patient Education 2023 [employer]. Follow Up Care 12/08/2023 03:11:18 With:REBECCA NAVAS Address: [address] [place] [address]- When:12/11/2023 05:24:33 Comments:Take the omeprazole once daily until you completed the course. Please follow-up with your primary care doctor for further evaluation and management. Please return to the ED for any new worsening symptoms. [facility] 09-08-2024 NoteED Patient Education Note Gastroenterology Nonspecific Chest Pain Chest pain can be caused by many different conditions. Some causes of chest pain can be life-threatening. These will require treatment right away. Serious causes of chest pain include: ? Heart attack. ? A tear in the body's main blood vessel. ? Redness and swelling (inflammation) around your heart. ? Blood clot in your lungs. Other causes of chest pain may not be so serious. These include: ? Heartburn. ? Anxiety or stress. ? Damage to bones or muscles in your chest. ? Lung infections. Chest pain can feel like: ? Pain or discomfort in your chest. ? Crushing, pressure, aching, or squeezing pain. ? Burning or tingling. ? Dull or sharp pain that is worse when you move, cough, or take a deep breath. ? Pain or discomfort that is also felt in your back, neck, jaw, shoulder, or arm, or pain that spreads to any of these areas. It is hard to know whether your pain is caused by something that is serious or something that is not so serious. So it is important to see your doctor right away if you have chest pain. Follow these instructions at home: Medicines ? Take gwij-qai-dnchzgg and prescription medicines only as told by your doctor. ? If you were prescribed an antibiotic medicine, take it as told by your doctor. Do not stop takingthe antibiotic even if you start to feel better. Lifestyle ? Rest as told by your doctor. ? Do not use any products that contain nicotine or tobacco, such as cigarettes, e-cigarettes, and chewing tobacco. If you need help quitting, ask your doctor. ? Do not drink alcohol. ? Make lifestyle changes as told by your doctor. These may include: ? Getting regular exercise. Ask your doctor what activities are safe for you. ? Eating a heart-healthy diet. A diet and animal care specialist (dietitian) can help you to learn healthy eating options. ? Staying at a healthy weight. ? Treating diabetes or high blood pressure, if needed. ? Lowering your stress. Activities such as yoga and relaxation techniques can help. General instructions ? Pay attention to any changes in your symptoms. Tell your doctor about them or any new symptoms. ? Avoid any activities that cause chest pain. ? Keep all follow-up visits as told by your doctor. This is important. You may need more testing ifyour chest pain does not go away. Contact a doctor if: ? Your chest pain does not go away. ? You feel depressed. ? You have a fever. Get help right away if: ? Your chest pain is worse. ? You have a cough that gets worse, or you cough up blood. ? You have very bad (severe) pain in your belly (abdomen). ? You pass out (faint). ? You have either of these for no clear reason: ? Sudden chest discomfort. ? Sudden discomfort in your arms, back, neck, or jaw. ? You have shortness of breath at any time. ? You suddenly start to sweat, or your skin gets clammy. ? You feel sick to your stomach (nauseous). ? You throw up (vomit). ? You suddenly feel lightheaded or dizzy. ? You feel very weak or tired. ? Your heart starts to beat fast, or it feels like it is skipping beats. These symptoms may be an emergency. Do not wait to see if the symptoms will go away. Get medical help right away. Call your local emergency services (911 in the [place] Do not drive yourself to the hospital. Summary ? Chest pain can be caused by many different conditions. The cause may be serious and need treatment right away. If you have chest pain, see your doctor right away. ? Follow your doctor's instructions for taking medicines and making lifestyle changes. ? Keep all follow-up visits as told by your doctor. This includes visits for any further testing ifyour chest pain does not go away. ? Be sure to know the signs that show that your condition has become worse. Get help right away if you have these symptoms. This information is not intended to replace advice given to you by your health care provider. Make sure you discuss any questions you have with your health care provider. Document Revised: 01/31/2023 Document Reviewed: 01/31/2023 [employer] Patient Education ? 2023 [employer] 12-01-2023 Hospital Discharge instructions Patient Education 12/01/2023 19:17:10 Nonspecific Chest Pain, Adult Nonspecific Chest Pain, Adult Chest pain is an uncomfortable, tight, or painful feeling in the chest. The pain can feel like a crushing, aching, or squeezing pressure. A person can feel a burning or tingling sensation. Chest paincan also be felt in your back, neck, jaw, shoulder, or arm. This pain can be worse when you move, sneeze, or take a deep breath. Chest pain can be caused by a condition that is life-threatening. This must be treated right away. It can also be caused by something that is not life- threatening. If you have chest pain, it can be hard to know the difference, so it is important to get help right away to make sure that you do not have a serious condition. Some life-threatening causes of chest pain include: Heart attack. A tear in the body's main blood vessel (aortic dissection). Inflammation around your heart (pericarditis). A problem in the lungs, such as a blood clot (pulmonary embolism) or a collapsed lung (pneumothorax). Some non life-threatening causes of chest pain include: Heartburn. Anxiety or stress. Damage to the bones, muscles, and cartilage that make up your chest wall. Pneumonia or bronchitis. Shingles infection (varicella-zoster virus). Your chest pain may come and go. It may also be constant. Your health care provider will do tests and other studies to find the cause of your pain. Treatment will depend on the cause of your chest pain. Follow these instructions at home: Medicines Take ludc-mcw-zytpuwx and prescription medicines only as told by your health care provider. If you were prescribed an antibiotic medicine, take it as told by your health care provider. Do notstop taking the antibiotic even if you start to feel better. Activity Avoid any activities that cause chest pain. Do not lift anything that is heavier than 10 lb (4.5 kg), or the limit that you are told, until your health care provider says that it is safe. Rest as directed by your health care provider. Return to your normal activities only as told by your health care provider. Ask your health care provider what activities are safe for you. Lifestyle Do not use any products that contain nicotine or tobacco, such as cigarettes, e- cigarettes, and chewing tobacco. If you need help quitting, ask your health care provider. Do not drink alcohol. Make healthy lifestyle changes as recommended. These may include: ?Getting regular exercise. Ask your health care provider to suggest some exercises that are safe for you. ?Eating a heart-healthy diet. This includes plenty of fresh fruits and vegetables, whole grains, low-fat (lean) protein, and low-fat dairy products. A dietitian can help you find healthy eating options. ?Maintaining a healthy weight. ?Managing any other health conditions you may have, such as high blood pressure (hypertension) or diabetes. ?Reducing stress, such as with yoga or relaxation techniques. General instructions Pay attention to any changes in your symptoms. It is up to you to get the results of any tests that were done. Ask your health care provider, or the department that is doing the tests, when your results will be ready. Keep all follow-up visits as told by your health care provider. This is important. You may be asked to go for further testing if your chest pain does not go away. Contact a health care provider if: Your chest pain does not go away. You feel depressed. You have a fever. You notice changes in your symptoms or develop new symptoms. Get help right away if: Your chest pain gets worse. You have a cough that gets worse, or you cough up blood. You have severe pain in your abdomen. You faint. You have sudden, unexplained chest discomfort. You have sudden, unexplained discomfort in your arms, back, neck, or jaw. You have shortness of breath at any time. You suddenly start to sweat, or your skin gets clammy. You feel nausea or you vomit. You suddenly feel lightheaded or dizzy. You have severe weakness, or unexplained weakness or fatigue. Your heart begins to beat quickly, or it feels like it is skipping beats. These symptoms may represent a serious problem that is an emergency. Do not wait to see if the symptoms will go away. Get medical help right away. Call your local emergency services (911 in the [place] Do not drive yourself to the hospital. Summary Chest pain can be caused by a condition that is serious and requires urgent treatment. It may also be caused by something that is not life-threatening. Your health care provider may do lab tests and other studies to find the cause of your pain. Follow your health care provider's instructions on taking medicines, making lifestyle changes, and getting emergency treatment if symptoms become worse. Keep all follow-up visits as told by your health care provider. This includes visits for any further testing if your chest pain does not go away. This information is not intended to replace advice given to you by your health care provider. Make sure you discuss any questions you have with your health care provider. Document Revised: 01/31/2023 Document Reviewed: 01/31/2023 [employer] Patient Education 2023 [employer]. 12/01/2023 19:17:10 Hypertension, Adult Hypertension, Adult High blood pressure (hypertension) is when the force of blood pumping through the arteries is too strong. The arteries are the blood vessels that carry blood from the heart throughout the body. Hypertension forces the heart to work harder to pump blood and may cause arteries to become narrow or stiff. Untreated or uncontrolled hypertension can lead to a heart attack, heart failure, a stroke, kidney disease, and other problems. A blood pressure reading consists of a higher number over a lower number. Ideally, your blood pressure should be below 120/80. The first ( top ) number is called the systolic pressure. It is a measure of the pressure in your arteries as your heart beats. The second ( bottom ) number is called the diastolic pressure. It is a measure of the pressure in your arteries as the heart relaxes. What are the causes? The exact cause of this condition is not known. There are some conditions that result in high bloodpressure. What increases the risk? Certain factors may make you more likely to develop high blood pressure. Some of these risk factorsare under your control, including: Smoking. Not getting enough exercise or physical activity. Being overweight. Having too much fat, sugar, calories, or salt (sodium) in your diet. Drinking too much alcohol. Other risk factors include: Having a personal history of heart disease, diabetes, high cholesterol, or kidney disease. Stress. Having a family history of high blood pressure and high cholesterol. Having obstructive sleep apnea. Age. The risk increases with age. What are the signs or symptoms? High blood pressure may not cause symptoms. Very high blood pressure (hypertensive crisis) may cause: Headache. Fast or irregular heartbeats (palpitations). Shortness of breath. Nosebleed. Nausea and vomiting. Vision changes. Severe chest pain, dizziness, and seizures. How is this diagnosed? This condition is diagnosed by measuring your blood pressure while you are seated, with your arm resting on a flat surface, your legs uncrossed, and your feet flat on the floor. The cuff of the bloodpressure monitor will be placed directly against the skin of your upper arm at the level of your heart. Blood pressure should be measured at least twice using the same arm. Certain conditions can cause a difference in blood pressure between your right and left arms. If you have a high blood pressure reading during one visit or you have normal blood pressure with other risk factors, you may be asked to: Return on a different day to have your blood pressure checked again. Monitor your blood pressure at home for 1 week or longer. If you are diagnosed with hypertension, you may have other blood or imaging tests to help your health care provider understand your overall risk for other conditions. How is this treated? This condition is treated by making healthy lifestyle changes, such as eating healthy foods, exercising more, and reducing your alcohol intake. You may be referred for counseling on a healthy diet and physical activity. Your health care provider may prescribe medicine if lifestyle changes are not enough to get your blood pressure under control and if: Your systolic blood pressure is above 130. Your diastolic blood pressure is above 80. Your personal target blood pressure may vary depending on your medical conditions, your age, and other factors. Follow these instructions at home: Eating and drinking Eat a diet that is high in fiber and potassium, and low in sodium, added sugar, and fat. An exampleof this eating plan is called the DASH diet. DASH stands for Dietary Approaches to Stop Hypertension. To eat this way: ?Eat plenty of fresh fruits and vegetables. Try to fill one half of your plate at each meal with fruits and vegetables. ?Eat whole grains, such as whole-wheat pasta, brown rice, or whole-grain bread. Fill about one fourth of your plate with whole grains. ?Eat or drink low-fat dairy products, such as skim milk or low-fat yogurt. ?Avoid fatty cuts of meat, processed or cured meats, and poultry with skin. Fill about one fourth of your plate with lean proteins, such as fish, chicken without skin, beans, eggs, or tofu. ?Avoid pre-made and processed foods. These tend to be higher in sodium, added sugar, and fat. Reduce your daily sodium intake. Many people with hypertension should eat less than 1,500 mg of sodium a day. Do not drink alcohol if: ?Your health care provider tells you not to drink. ?You are , may be , or are planning to become . If you drink alcohol: ?Limit how much you have to: ?0 1 drink a day for women. ?0 2 drinks a day for men. ?Know how much alcohol is in your drink. In the [place] one drink equals one 12 oz bottle of beer (355 mL), one 5 oz glass of wine (148 mL), or one 1 oz glass of hard liquor (44 mL). Lifestyle Work with your health care provider to maintain a healthy body weight or to lose weight. Ask what an ideal weight is for you. Get at least 30 minutes of exercise that causes your heart to beat faster (aerobic exercise) most days of the week. Activities may include walking, swimming, or biking. Include exercise to strengthen your muscles (resistance exercise), such as Pilates or lifting weights, as part of your weekly exercise routine. Try to do these types of exercises for 30 minutes at least 3 days a week. Do not use any products that contain nicotine or tobacco. These products include cigarettes, chewing tobacco, and vaping devices, such as e-cigarettes. If you need help quitting, ask your health careprovider. Monitor your blood pressure at home as told by your health care provider. Keep all follow-up visits. This is important. Medicines Take ezro-jrt-zylgiye and prescription medicines only as told by your health care provider. Follow directions carefully. Blood pressure medicines must be taken as prescribed. Do not skip doses of blood pressure medicine. Doing this puts you at risk for problems and can makethe medicine less effective. Ask your health care provider about side effects or reactions to medicines that you should watch for. Contact a health care provider if you: Think you are having a reaction to a medicine you are taking. Have headaches that keep coming back (recurring). Feel dizzy. Have swelling in your ankles. Have trouble with your vision. Get help right away if you: Develop a severe headache or confusion. Have unusual weakness or numbness. Feel faint. Have severe pain in your chest or abdomen. Vomit repeatedly. Have trouble breathing. These symptoms may be an emergency. Get help right away. Call 911. Do not wait to see if the symptoms will go away. Do not drive yourself to the hospital. Summary Hypertension is when the force of blood pumping through your arteries is too strong. If this condition is not controlled, it may put you at risk for serious complications. Your personal target blood pressure may vary depending on your medical conditions, your age, and other factors. For most people, a normal blood pressure is less than 120/80. Hypertension is treated with lifestyle changes, medicines, or a combination of both. Lifestyle changes include losing weight, eating a healthy, low-sodium diet, exercising more, and limiting alcohol. This information is not intended to replace advice given to you by your health care provider. Make sure you discuss any questions you have with your health care provider. Document Revised: 01/23/2022 Document Reviewed: 01/23/2022 [employer] Patient Education 2023 [employer]. [facility] Up Care 12/01/2023 14:16:36 With:Michael Campbell Address: [address] [address] [phone] Business (1) When:12/04/2023 19:07:47 Comments:Make sure to follow-up with for this chest pain as discussed. Follow-up with your doctor for blood pressure check and her blood pressure medication adjustment. Return to the emergency room if your chest pain recurs, blood pressure elevates again or any new symptoms. With:REBECCA NAVAS Address: [address] [place] [address]- When:Within 3 Day(s) [facility] 09-01-2024 NoteED Patient Education Note Cardiovascular Hypertension, Adult High blood pressure (hypertension) is when the force of blood pumping through the arteries is too strong. The arteries are the blood vessels that carry blood from the heart throughout the body. Hypertension forces the heart to work harder to pump blood and may cause arteries to become narrow or stiff. Untreated or uncontrolled hypertension can lead to a heart attack, heart failure, a stroke, kidney disease, and other problems. A blood pressure reading consists of a higher number over a lower number. Ideally, your blood pressure should be below 120/80. The first ( top ) number is called the systolic pressure. It is a measure of the pressure in your arteries as your heart beats. The second ( bottom ) number is called the diastolic pressure. It is a measure of the pressure in your arteries as the heart relaxes. What are the causes? The exact cause of this condition is not known. There are some conditions that result in high bloodpressure. What increases the risk? Certain factors may make you more likely to develop high blood pressure. Some of these risk factorsare under your control, including: ? Smoking. ? Not getting enough exercise or physical activity. ? Being overweight. ? Having too much fat, sugar, calories, or salt (sodium) in your diet. ? Drinking too much alcohol. Other risk factors include: ? Having a personal history of heart disease, diabetes, high cholesterol, or kidney disease. ? Stress. ? Having a family history of high blood pressure and high cholesterol. ? Having obstructive sleep apnea. ? Age. The risk increases with age. What are the signs or symptoms? High blood pressure may not cause symptoms. Very high blood pressure (hypertensive crisis) may cause: ? Headache. ? Fast or irregular heartbeats (palpitations). ? Shortness of breath. ? Nosebleed. ? Nausea and vomiting. ? Vision changes. ? Severe chest pain, dizziness, and seizures. How is this diagnosed? This condition is diagnosed by measuring your blood pressure while you are seated, with your arm resting on a flat surface, your legs uncrossed, and your feet flat on the floor. The cuff of the bloodpressure monitor will be placed directly against the skin of your upper arm at the level of your heart. Blood pressure should be measured at least twice using the same arm. Certain conditions can cause a difference in blood pressure between your right and left arms. If you have a high blood pressure reading during one visit or you have normal blood pressure with other risk factors, you may be asked to: ? Return on a different day to have your blood pressure checked again. ? Monitor your blood pressure at home for 1 week or longer. If you are diagnosed with hypertension, you may have other blood or imaging tests to help your health care provider understand your overall risk for other conditions. How is this treated? This condition is treated by making healthy lifestyle changes, such as eating healthy foods, exercising more, and reducing your alcohol intake. You may be referred for counseling on a healthy diet and physical activity. Your health care provider may prescribe medicine if lifestyle changes are not enough to get your blood pressure under control and if: ? Your systolic blood pressure is above 130. ? Your diastolic blood pressure is above 80. Your personal target blood pressure may vary depending on your medical conditions, your age, and other factors. Follow these instructions at home: Eating and drinking ? Eat a diet that is high in fiber and potassium, and low in sodium, added sugar, and fat. An example of this eating plan is called the DASH diet. DASH stands for Dietary Approaches to Stop Hypertension. To eat this way: ? Eat plenty of fresh fruits and vegetables. Try to fill one half of your plate at each meal with fruits and vegetables. ? Eat whole grains, such as whole-wheat pasta, brown rice, or whole-grain bread. Fill about one fourth of your plate with whole grains. ? Eat or drink low-fat dairy products, such as skim milk or low-fat yogurt. ? Avoid fatty cuts of meat, processed or cured meats, and poultry with skin. Fill about one fourth of your plate with lean proteins, such as fish, chicken without skin, beans, eggs, or tofu. ? Avoid pre-made and processed foods. These tend to be higher in sodium, added sugar, and fat. ? Reduce your daily sodium intake. Many people with hypertension should eat less than 1,500 mg of sodium a day. ? Do not drink alcohol if: ? Your health care provider tells you not to drink. ? You are , may be , or are planning to become . ? If you drink alcohol: ? Limit how much you have to: ? 0?1 drink a day for women. ? 0?2 drinks a day for men. ? Know how much alcohol is in your drink. In the [place] one drink equals one 12 oz bottle of beer (355 mL), one 5 oz glass of wine ( (more content not included)...[facility]09-01-2024 Evaluation + Plan note Extracted from: Title:ED Note Author:Narendra Thomas M.D. te:12/01/23 1. Chest pain (R07.9: Chest pain, unspecified) 2. Accelerated hypertension (I10: Essential (primary) hypertension) Orders: aspirin, 162 mg = 2 tab(s), Tab-Chew, Oral, Once, Stop date 12/01/23 14:32:00 EDT, STAT, Start date 12/01/23 14:32:00 EDT, 12/01/23 14:32:00 EDT hydrALAZINE, 10 mg = 0.5 mL, Injection, IV Push, Once, Stop date 12/01/23 14:44:00 EDT, STAT, Start date 12/01/23 14:44:00 EDT, 12/01/23 14:44:00 EDT ED Cardiac Monitoring Oxygen Saturation Oxygen Therapy Saline Lock Insert Troponin 3 Hr. UA with Cult Rflx Diagnostic Tests Pending * UA with Cult Rflx 12/01/23 [facility] 08-20-2024 Evaluation + Plan noteExtracted from: Title:ED Note Author:Nimo Maurice PA-C Date:11/19/23 1. Headache (R51.9: Headache , unspecified) 2. Vertigo (R42: Dizziness and giddiness) Orders: diphenhydrAMINE, 25 mg = 0.5 mL, Injection, IV Push, Once, Stop date 11/18/23 22:48:00 EDT, STAT, Start date 11/18/23 22:48:00 EDT, 11/18/23 22:48:00 EDT meclizine, 25 mg = 2 tab(s), Tab, Oral, Once, Stop date 11/19/23 0:15:00 EDT, STAT, Start date 11/19/23 0:15:00 EDT, 11/19/23 0:15:00 EDT meclizine, 25 mg = 1 tab(s), Oral, TID, PRN for dizziness, # 20 tab(s), Refills(s) 0, Pharmacy: [facility] [id number], 160, cm, 11/18/23 22:17:00 EDT, Height/Length Dosing, 93.2, kg, 11/18/23 22:17:00 EDT, Weight Dosing ondansetron, 4 mg = 1 tab(s), Oral, q6hr, PRN Nausea/Vomiting, # 12 tab(s), Refills(s) 0, Pharmacy: [facility] [id number], 160, cm, 11/18/23 22:17:00 EDT, Height/Length Dosing, 93.2, kg, 11/18/23 22:17:00 EDT, Weight Dosing promethazine 25 mg + Sodium Chloride 0.9% intravenous solution 50 mL, Injection, IV Piggyback, Once, Stop date 11/18/23 22:48:00 EDT, STAT, Start date 11/18/23 22:48:00 EDT, 153 mL/hr, Infuse over 20 minute(s) Sodium Chloride 0.9% intravenous solution, 1,000 mL, Soln-IV, IV, Once, Stop date 11/18/23 22:48:00 EDT, STAT, Start date 11/18/23 22:48:00 EDT, Infuse over 61, minute(s) Basic Metabolic Panel CBC w/ Auto Diff CT Head or Brain w/o Contrast eGFR [facility] 08-20-2024 Hospital Discharge instructions Patient Education 11/19/2023 01:28:58 General Headache Without Cause, Qmub-yb-Bkah General Headache Without Cause A headache is pain or discomfort you feel around the head or neck area. There are many causes and types of headaches. In some cases, the cause may not be found. Follow these instructions at home: Watch your condition for any changes. Let your doctor know about them. Take these steps to help with your condition: Managing pain Take luwl-eki-svjehdm and prescription medicines only as told by your doctor. This includes medicines for pain that are taken by mouth or put on the skin. Lie down in a dark, quiet room when you have a headache. If told, put ice on your head and neck area: ?Put ice in a plastic bag. ?Place a towel between your skin and the bag. ?Leave the ice on for 20 minutes, 2 3 times per day. ?Take off the ice if your skin turns bright red. This is very important. If you cannot feel pain, heat, or cold, you have a greater risk of damage to the area. If told, put heat on the affected area. Use the heat source that your doctor recommends, such as a moist heat pack or a heating pad. ? Place a towel between your skin and the heat source. ?Leave the heat on for 20 30 minutes. ?Take off the heat if your skin turns bright red. This is very important. If you cannot feel pain, heat, or cold, you have a greater risk of getting burned. Keep lights dim if bright lights bother you or make your headaches worse. Eating and drinking Eat meals on a regular schedule. If you drink alcohol: ?Limit how much you have to: ?0 1 drink a day for women who are not . ? 0 2 drinks a day for men. ?Know how much alcohol is in a drink. In the [place] one drink equals one 12 oz bottle of beer (355 mL), one 5 oz glass of wine (148 mL), or one 1 oz glass of hard liquor (44 mL). Stop drinking caffeine, or drink less caffeine. General instructions Keep a journal to find out if certain things bring on headaches. For example, write down: ?What you eat and drink. ?How much sleep you get. ?Any change to your diet or medicines. Get a massage or try other ways to relax. Limit stress. Sit up straight. Do not tighten (tense) your muscles. Do not smoke or use any products that contain nicotine or tobacco. If you need help quitting, ask your doctor. Exercise regularly as told by your doctor. Get enough sleep. This often means 7 9 hours of sleep each night. Keep all follow-up visits. This is important. Contact a doctor if: Medicine does not help your symptoms. You have a headache that feels different than the other headaches. You feel like you may vomit (nauseous) or you vomit. You have a fever. Get help right away if: Your headache: ?Gets very bad quickly. ?Gets worse after a lot of physical activity. You have any of these symptoms: ?You continue to vomit. ?A stiff neck. ?Trouble seeing. ?Your eye or ear hurts. ?Trouble speaking. ?Weak muscles or you lose muscle control. ?You lose your balance or have trouble walking. You feel like you will pass out (faint) or you pass out. You are mixed up (confused). You have a seizure. These symptoms may be an emergency. Get help right away. Call your local emergency services (911 int [place] Do not wait to see if the symptoms will go away. Do not drive yourself to the hospital. Summary A headache is pain or discomfort that is felt around the head or neck area. There are many causes and types of headaches. In some cases, the cause may not be found. Keep a journal to help find out what causes your headaches. Watch your condition for any changes. Let your doctor know about them. Contact a doctor if you have a headache that is different from usual, or if medicine does not help your headache. Get help right away if your headache gets very bad, you throw up, you have trouble seeing, you loseyour balance, or you have a seizure. This information is not intended to replace advice given to you by your health care provider. Make sure you discuss any questions you have with your health care provider. Document Revised: 08/16/2021 Document Reviewed: 08/16/2021 [employer] Patient Education 2022 [employer]. 11/19/2023 01:28:58 Vertigo, Uvwa-ab-Ltao Vertigo Vertigo is the feeling that you or the things around you are moving when they are not. This feelingcan come and go at any time. Vertigo often goes away on its own. This condition can be dangerous ifit happens when you are doing activities like driving or working with machines. Your doctor will do tests to find the cause of your vertigo. These tests will also help your doctordecide on the best treatment for you. Follow these instructions at home: Eating and drinking Drink enough fluid to keep your pee (urine) pale yellow. Do not drink alcohol. Activity Return to your normal activities when your doctor says that it is safe. In the morning, first sit up on the side of the bed. When you feel okay, stand slowly while you hold onto something until you know that your balance is fine. Move slowly. Avoid sudden body or head movements or certain positions, as told by your doctor. Use a cane if you have trouble standing or walking. Sit down right away if you feel dizzy. Avoid doing any tasks or activities that can cause danger to you or others if you get dizzy. Avoid bending down if you feel dizzy. Place items in your home so that they are easy for you to reach without bending or leaning over. Do not drive or use machinery if you feel dizzy. General instructions Take pwdp-ohf-qvrcvvs and prescription medicines only as told by your doctor. Keep all follow-up visits. Contact a doctor if: Your medicine does not help your vertigo. Your problems get worse or you have new symptoms. You have a fever. You feel like you may vomit (nauseous), or this feeling gets worse. You start to vomit. Your family or friends see changes in how you act. You lose feeling (have numbness) in part of your body. You feel prickling and tingling in a part of your body. Get help right away if: You are always dizzy. You faint. You get very bad headaches. You get a stiff neck. Bright light starts to bother you. You have trouble moving or talking. You feel weak in your hands, arms, or legs. You have changes in your hearing or in how you see (vision). These symptoms may be an emergency. Get help right away. Call your local emergency services (911 int [place] Do not wait to see if the symptoms will go away. Do not drive yourself to the hospital. Summary Vertigo is the feeling that you or the things around you are moving when they are not. Your doctor will do tests to find the cause of your vertigo. You may be told to avoid some tasks, positions, or movements. Contact a doctor if your medicine is not helping, or if you have a fever, new symptoms, or a changein how you act. Get help right away if you get very bad headaches, or if you have changes in how you speak, hear, or see. This information is not intended to replace advice given to you by your health care provider. Make sure you discuss any questions you have with your health care provider. Document Revised: 02/15/2021 Document Reviewed: 02/15/2021 [employer] Patient Education 2022 [employer]. 11/19/2023 01:28:58 How to Perform the Jarocho Maneuver How to Perform the Jarocho Maneuver The Jarocho maneuver is an exercise that relieves symptoms of vertigo. Vertigo is the feeling that you or your surroundings are moving when they are not. When you feel vertigo, you may feel like the room is spinning and may have trouble walking. The Jarocho maneuver is used for a type of vertigo causedby a calcium deposit in a part of the inner ear. The maneuver involves changing head positions to help the deposit move out of the area. You can do this maneuver at home whenever you have symptoms of vertigo. You can repeat it in 24 hours if your vertigo has not gone away. Even though the Jarocho maneuver may relieve your vertigo for a few weeks, it is possible that your symptoms will return. This maneuver relieves vertigo, but it does not relieve dizziness. What are the risks? If it is done correctly, the Jarocho maneuver is considered safe. Sometimes it can lead to dizziness or nausea that goes away after a short time. If you develop other symptoms such as changes in vision, weakness, or numbness stop doing the maneuver and call your health care provider. Supplies needed: A bed or table. A pillow. How to do the Jarocho maneuver 1.Sit on the edge of a bed or table with your back straight and your legs extended or hanging over the edge of the bed or table. 2.Turn your head long-term toward the affected ear or side as told by your health care provider. 3.Lie backward quickly with your head turned until you are lying flat on your back. Your head should dangle (head-hanging position). You may want to position a pillow under your shoulders. 4.Hold this position for at least 30 seconds. If you feel dizzy or have symptoms of vertigo, continue to hold the position until the symptoms stop. 5.Turn your head to the opposite direction until your unaffected ear is facing down. Your head should continue to dangle. 6.Hold this position for at least 30 seconds. If you feel dizzy or have symptoms of vertigo, continue to hold the position until the symptoms stop. 7.Turn your whole body to the same side as your head so that you are positioned on your side. Your head will now be nearly facedown and no longer needs to dangle. Hold for at least 30 seconds. If youfeel dizzy or have symptoms of vertigo, continue to hold the position until the symptoms stop. 8.Sit back up. You can repeat the maneuver in 24 hours if your vertigo does not go away. Follow these instructions at home: For 24 hours after doing the Jarocho maneuver: Keep your head in an upright position. When lying down to sleep or rest, keep your head raised (elevated) with two or more pillows. Avoid excessive neck movements. Activity Do not drive or use machinery if you feel dizzy. After doing the Jarocho maneuver, return to your normal activities as told by your health care provider. Ask your health care provider what activities are safe for you. General instructions Drink enough fluid to keep your urine pale yellow. Do not drink alcohol. Take xcny-erx-mmnbzvd and prescription medicines only as told by your health care provider. Keep all follow-up visits. This is important. Preventing vertigo symptoms Ask your health care provider if there is anything you should do at home to prevent vertigo. He or she may recommend that you: Keep your head elevated with two or more pillows while you sleep. Do not sleep on the side of your affected ear. Get up slowly from bed. Avoid sudden movements during the day. Avoid extreme head positions or movement, such as looking up or bending over. Contact a health care provider if: Your vertigo gets worse. You have other symptoms, including: ?Nausea. ?Vomiting. ?Headache. Get help right away if you: Have vision changes. Have a headache or neck pain that is severe or getting worse. Cannot stop vomiting. Have new numbness or weakness in any part of your body. These symptoms may represent a serious problem that is an emergency. Do not wait to see if the symptoms will go away. Get medical help right away. Call your local emergency services (911 in the [place] Do not drive yourself to the hospital. Summary Vertigo is the feeling that you or your surroundings are moving when they are not. The Jarocho maneuver is an exercise that relieves symptoms of vertigo. If the Jarocho maneuver is done correctly, it is considered safe. This information is not intended to replace advice given to you by your health care provider. Make sure you discuss any questions you have with your health care provider. Document Revised: 02/15/2021 Document Reviewed: 02/15/2021 [employer] Patient Education 2022 [employer]. Follow Up Care 11/18/2023 22:13:21 With:REBECCA NAVAS Address: [address] [place] [address]- When:11/22/2023 [facility] 08-20-2024 NoteED Patient Education Note Neurology General Headache Without Cause A headache is pain or discomfort you feel around the head or neck area. There are many causes and types of headaches. In some cases, the cause may not be found. Follow these instructions at home: Watch your condition for any changes. Let your doctor know about them. Take these steps to help with your condition: Managing pain ? Take umpb-mxj-anddoos and prescription medicines only as told by your doctor. This includes medicines for pain that are taken by mouth or put on the skin. ? Lie down in a dark, quiet room when you have a headache. ? If told, put ice on your head and neck area: ? Put ice in a plastic bag. ? Place a towel between your skin and the bag. ? Leave the ice on for 20 minutes, 2?3 times per day. ? Take off the ice if your skin turns bright red. This is very important. If you cannot feel pain, heat, or cold, you have a greater risk of damage to the area. ? If told, put heat on the affected area. Use the heat source that your doctor recommends, such as a moist heat pack or a heating pad. ? Place a towel between your skin and the heat source. ? Leave the heat on for 20?30 minutes. ? Take off the heat if your skin turns bright red. This is very important. If you cannot feel pain,heat, or cold, you have a greater risk of getting burned. ? Keep lights dim if bright lights bother you or make your headaches worse. Eating and drinking ? Eat meals on a regular schedule. ? If you drink alcohol: ? Limit how much you have to: ? 0?1 drink a day for women who are not . ? 0?2 drinks a day for men. ? Know how much alcohol is in a drink. In the [place] one drink equals one 12 oz bottle of beer (355 mL), one 5 oz glass of wine (148 mL), or one 1? oz glass of hard liquor (44 mL). ? Stop drinking caffeine, or drink less caffeine. General instructions ? Keep a journal to find out if certain things bring on headaches. For example, write down: ? What you eat and drink. ? How much sleep you get. ? Any change to your diet or medicines. ? Get a massage or try other ways to relax. ? Limit stress. ? Sit up straight. Do not tighten (tense) your muscles. ? Do not smoke or use any products that contain nicotine or tobacco. If you need help quitting, askyour doctor. ? Exercise regularly as told by your doctor. ? Get enough sleep. This often means 7?9 hours of sleep each night. ? Keep all follow-up visits. This is important. Contact a doctor if: ? Medicine does not help your symptoms. ? You have a headache that feels different than the other headaches. ? You feel like you may vomit (nauseous) or you vomit. ? You have a fever. Get help right away if: ? Your headache: ? Gets very bad quickly. ? Gets worse after a lot of physical activity. ? You have any of these symptoms: ? You continue to vomit. ? A stiff neck. ? Trouble seeing. ? Your eye or ear hurts. ? Trouble speaking. ? Weak muscles or you lose muscle control. ? You lose your balance or have trouble walking. ? You feel like you will pass out (faint) or you pass out. ? You are mixed up (confused). ? You have a seizure. These symptoms may be an emergency. Get help right away. Call your local emergency services (911 int [place] ? Do not wait to see if the symptoms will go away. ? Do not drive yourself to the hospital. Summary ? A headache is pain or discomfort that is felt around the head or neck area. ? There are many causes and types of headaches. In some cases, the cause may not be found. ? Keep a journal to help find out what causes your headaches. Watch your condition for any changes.Let your doctor know about them. ? Contact a doctor if you have a headache that is different from usual, or if medicine does not help your headache. ? Get help right away if your headache gets very bad, you throw up, you have trouble seeing, you lose your balance, or you have a seizure. This information is not intended to replace advice given to you by your health care provider. Make sure you discuss any questions you have with your health care provider. Document Revised: 08/16/2021 Document Reviewed: 08/16/2021 [employer] Patient Education ? 2022 [employer] Vertigo Vertigo is the feeling that you or the things around you are moving when they are not. This feelingcan come and go at any time. Vertigo often goes away on its own. This condition can be dangerous ifit happens when you are doing activities like driving or working with machines. Your doctor will do tests to find the cause of your vertigo. These tests will also help your doctordecide on the best treatment for you. Follow these instructions at home: Eating and drinking ? Drink enough fluid to keep your pee (urine) pale (more content not included)...[facility]08-19-2024 Evaluation + Plan note Extracted from: Title:ED Note Author:Donis Taylor DOSlade Date :11/18/23 Flank pain (R10.9: Unspecifi ed abdominal pain) Orders: ketorolac, 15 mg = 1 mL, Injection, IV Push, Once, Stop date 11/18/23 1:23:00 EDT, STAT, Start date 11/18/23 1:23:00 EDT, 11/18/23 1:23:00 EDT naproxen, 500 mg = 1 tab(s), Oral, BID, PRN Pain, # 10 tab(s), Refills(s) 0, Pharmacy: [facility] [id number], 160, cm, 11/18/23 1:02:00 EDT, Height/Length Dosing, 93.2, kg, 11/18/23 1:02:00 EDT, Weight Dosing ondansetron, 4 mg = 1 tab(s), Oral, q8hr, PRN Nausea/Vomiting, # 12 tab(s), Refills(s) 0, [facility] [id number], 160, cm, 11/18/23 1:02:00 EDT, Height/Length Dosing, 93.2, kg, 11/18/23 1:02:00 EDT, Weight Dosing ondansetron, 4 mg = 2 mL, Injection, IV Push, Once, Stop date 11/18/23 1:23:00 EDT, STAT, Start date 11/18/23 1:23:00 EDT, 11/18/23 1:23:00 EDT Sodium Chloride 0.9% intravenous solution, 1,000 mL, Soln-IV, IV, Once, Stop date 11/18/23 1:23:00 EDT, STAT, Start date 11/18/23 1:23:00 EDT, Infuse over 61, minute(s) Basic Metabolic Panel Capillary Glucose POC CBC w/ Auto Diff CT Abdomen/Pelvis w/o Contrast eGFR Hepatic Function Panel Lipase Level Saline Lock Insert UA with Cult Rflx [facility] 08-19-2024 Hospital Discharge instructions Patient Education 11/18/2023 02:40:53 Flank Pain, Adult Flank Pain, Adult Flank pain is pain that is located on the side of the body between the upper abdomen and the spine.This area is called the flank. The pain may occur over a short period of time (acute), or it may belong-term or recurring (chronic). It may be mild or severe. Flank pain can be caused by many things, including: Muscle soreness or injury. Kidney infection, kidney stones, or kidney disease. Stress. A disease of the spine (vertebral disk disease). A lung infection (pneumonia). Fluid around the lungs (pulmonary edema). A skin rash caused by the chickenpox virus (shingles). Tumors that affect the back of the abdomen. Gallbladder disease. Follow these instructions at home: Drink enough fluid to keep your urine pale yellow. Rest as told by your health care provider. Take fmdz-pry-lydosjx and prescription medicines only as told by your health care provider. Keep a journal to track what has caused your flank pain and what has made it feel better. Keep all follow-up visits. This is important. Contact a health care provider if: Your pain is not controlled with medicine. You have new symptoms. Your pain gets worse. Your symptoms last longer than 2 3 days. You have trouble urinating or you are urinating very frequently. Get help right away if: You have trouble breathing or you are short of breath. Your abdomen hurts or it is swollen or red. You have nausea or vomiting. You feel faint, or you faint. You have blood in your urine. You have flank pain and a fever. These symptoms may represent a serious problem that is an emergency. Do not wait to see if the symptoms will go away. Get medical help right away. Call your local emergency services (911 in the [place] Do not drive yourself to the hospital. Summary Flank pain is pain that is located on the side of the body between the upper abdomen and the spine. The pain may occur over a short period of time (acute), or it may be long-term or recurring (chronic). It may be mild or severe. Flank pain can be caused by many things. Contact your health care provider if your symptoms get worse or last longer than 2 3 days. This information is not intended to replace advice given to you by your health care provider. Make sure you discuss any questions you have with your health care provider. Document Revised: 05/29/2021 Document Reviewed: 05/29/2021 [employer] Patient Education 2022 [employer]. Follow Up Care 11/18/2023 00:57:07 With:REBECCAJerman NAVAS Address: [address] [place] [address]- When:Within 3 Day(s) [facility] 08-19-2024 NoteED Patient Education Note Orthopedics Flank Pain, Adult Flank pain is pain that is located on the side of the body between the upper abdomen and the spine.This area is called the flank. The pain may occur over a short period of time (acute), or it may belong-term or recurring (chronic). It may be mild or severe. Flank pain can be caused by many things, including: ? Muscle soreness or injury. ? Kidney infection, kidney stones, or kidney disease. ? Stress. ? A disease of the spine (vertebral disk disease). ? A lung infection (pneumonia). ? Fluid around the lungs (pulmonary edema). ? A skin rash caused by the chickenpox virus (shingles). ? Tumors that affect the back of the abdomen. ? Gallbladder disease. Follow these instructions at home: ? Drink enough fluid to keep your urine pale yellow. ? Rest as told by your health care provider. ? Take fkdy-cpi-tokpyqr and prescription medicines only as told by your health care provider. ? Keep a journal to track what has caused your flank pain and what has made it feel better. ? Keep all follow-up visits. This is important. Contact a health care provider if: ? Your pain is not controlled with medicine. ? You have new symptoms. ? Your pain gets worse. ? Your symptoms last longer than 2?3 days. ? You have trouble urinating or you are urinating very frequently. Get help right away if: ? You have trouble breathing or you are short of breath. ? Your abdomen hurts or it is swollen or red. ? You have nausea or vomiting. ? You feel faint, or you faint. ? You have blood in your urine. ? You have flank pain and a fever. These symptoms may represent a serious problem that is an emergency. Do not wait to see if the symptoms will go away. Get medical help right away. Call your local emergency services (911 in the [place] Do not drive yourself to the hospital. Summary ? Flank pain is pain that is located on the side of the body between the upper abdomen and the spine. ? The pain may occur over a short period of time (acute), or it may be long-term or recurring (chronic). It may be mild or severe. ? Flank pain can be caused by many things. ? Contact your health care provider if your symptoms get worse or last longer than 2?3 days. This information is not intended to replace advice given to you by your health care provider. Make sure you discuss any questions you have with your health care provider. Document Revised: 05/29/2021 Document Reviewed: 05/29/2021 [employer] Patient Education ? 2022 [employer].[facility] 11-11-2023 Hospital Discharge instructions Additional Instructions Your test did not show any dangerous problems. It is certainly time to get your blood pressure under better control. The propranolol does not seem to be helping. I am going to prescribe you more medicine. I want you to follow-up with your doctor in the next 2 to 3 days for a recheck to make sure that things are improving. I want you to take some time off of work to get this under control. We are always happy to help.[facility] Work Phone: [phone] [phone] Hospital Discharge instructions Additional Instructions Take Naprosyn as prescribed for any recurrent headache. Continue take your blood pressure medications as prescribed. Follow-up with the family physician for recheck next 3 to 5 days.[facility] Work Phone: [phone] Hospital Discharge instructions Patient Education 10/06/2023 22:16:26 Nonspecific Chest Pain, Adult Nonspecific Chest Pain, Adult Chest pain is an uncomfortable, tight, or painful feeling in the chest. The pain can feel like a crushing, aching, or squeezing pressure. A person can feel a burning or tingling sensation. Chest paincan also be felt in your back, neck, jaw, shoulder, or arm. This pain can be worse when you move, sneeze, or take a deep breath. Chest pain can be caused by a condition that is life-threatening. This must be treated right away. It can also be caused by something that is not life- threatening. If you have chest pain, it can be hard to know the difference, so it is important to get help right away to make sure that you do not have a serious condition. Some life-threatening causes of chest pain include: Heart attack. A tear in the body's main blood vessel (aortic dissection). Inflammation around your heart (pericarditis). A problem in the lungs, such as a blood clot (pulmonary embolism) or a collapsed lung (pneumothorax). Some non life-threatening causes of chest pain include: Heartburn. Anxiety or stress. Damage to the bones, muscles, and cartilage that make up your chest wall. Pneumonia or bronchitis. Shingles infection (varicella-zoster virus). Your chest pain may come and go. It may also be constant. Your health care provider will do tests and other studies to find the cause of your pain. Treatment will depend on the cause of your chest pain. Follow these instructions at home: Medicines Take qqcz-tuu-mgavwja and prescription medicines only as told by your health care provider. If you were prescribed an antibiotic medicine, take it as told by your health care provider. Do notstop taking the antibiotic even if you start to feel better. Activity Avoid any activities that cause chest pain. Do not lift anything that is heavier than 10 lb (4.5 kg), or the limit that you are told, until your health care provider says that it is safe. Rest as directed by your health care provider. Return to your normal activities only as told by your health care provider. Ask your health care provider what activities are safe for you. Lifestyle Do not use any products that contain nicotine or tobacco, such as cigarettes, e- cigarettes, and chewing tobacco. If you need help quitting, ask your health care provider. Do not drink alcohol. Make healthy lifestyle changes as recommended. These may include: ?Getting regular exercise. Ask your health care provider to suggest some exercises that are safe for you. ?Eating a heart-healthy diet. This includes plenty of fresh fruits and vegetables, whole grains, low-fat (lean) protein, and low-fat dairy products. A dietitian can help you find healthy eating options. ?Maintaining a healthy weight. ?Managing any other health conditions you may have, such as high blood pressure (hypertension) or diabetes. ?Reducing stress, such as with yoga or relaxation techniques. General instructions Pay attention to any changes in your symptoms. It is up to you to get the results of any tests that were done. Ask your health care provider, or the department that is doing the tests, when your results will be ready. Keep all follow-up visits as told by your health care provider. This is important. You may be asked to go for further testing if your chest pain does not go away. Contact a health care provider if: Your chest pain does not go away. You feel depressed. You have a fever. You notice changes in your symptoms or develop new symptoms. Get help right away if: Your chest pain gets worse. You have a cough that gets worse, or you cough up blood. You have severe pain in your abdomen. You faint. You have sudden, unexplained chest discomfort. You have sudden, unexplained discomfort in your arms, back, neck, or jaw. You have shortness of breath at any time. You suddenly start to sweat, or your skin gets clammy. You feel nausea or you vomit. You suddenly feel lightheaded or dizzy. You have severe weakness, or unexplained weakness or fatigue. Your heart begins to beat quickly, or it feels like it is skipping beats. These symptoms may represent a serious problem that is an emergency. Do not wait to see if the symptoms will go away. Get medical help right away. Call your local emergency services (911 in the [place] Do not drive yourself to the hospital. Summary Chest pain can be caused by a condition that is serious and requires urgent treatment. It may also be caused by something that is not life-threatening. Your health care provider may do lab tests and other studies to find the cause of your pain. Follow your health care provider's instructions on taking medicines, making lifestyle changes, and getting emergency treatment if symptoms become worse. Keep all follow-up visits as told by your health care provider. This includes visits for any further testing if your chest pain does not go away. This information is not intended to replace advice given to you by your health care provider. Make sure you discuss any questions you have with your health care provider. Document Revised: 06/01/2021 Document Reviewed: 06/01/2021 [employer] Patient Education 2022 [employer]. Follow Up Care 10/06/2023 20:13:53 With:REBECCA NAVAS Address: [address] [place] [address]- When:Within 3 Day(s) [facility]07-07-2024 NoteED Patient Education Note Pulmonary Medicine Nonspecific Chest Pain, Adult Chest pain is an uncomfortable, tight, or painful feeling in the chest. The pain can feel like a crushing, aching, or squeezing pressure. A person can feel a burning or tingling sensation. Chest paincan also be felt in your back, neck, jaw, shoulder, or arm. This pain can be worse when you move, sneeze, or take a deep breath. Chest pain can be caused by a condition that is life-threatening. This must be treated right away. It can also be caused by something that is not life- threatening. If you have chest pain, it can be hard to know the difference, so it is important to get help right away to make sure that you do not have a serious condition. Some life-threatening causes of chest pain include: ? Heart attack. ? A tear in the body's main blood vessel (aortic dissection). ? Inflammation around your heart (pericarditis). ? A problem in the lungs, such as a blood clot (pulmonary embolism) or a collapsed lung (pneumothorax). Some non life-threatening causes of chest pain include: ? Heartburn. ? Anxiety or stress. ? Damage to the bones, muscles, and cartilage that make up your chest wall. ? Pneumonia or bronchitis. ? Shingles infection (varicella-zoster virus). Your chest pain may come and go. It may also be constant. Your health care provider will do tests and other studies to find the cause of your pain. Treatment will depend on the cause of your chest pain. Follow these instructions at home: Medicines ? Take seqn-gmz-zidykvd and prescription medicines only as told by your health care provider. ? If you were prescribed an antibiotic medicine, take it as told by your health care provider. Do not stop taking the antibiotic even if you start to feel better. Activity ? Avoid any activities that cause chest pain. ? Do not lift anything that is heavier than 10 lb (4.5 kg), or the limit that you are told, until your health care provider says that it is safe. ? Rest as directed by your health care provider. ? Return to your normal activities only as told by your health care provider. Ask your health care provider what activities are safe for you. Lifestyle ? Do not use any products that contain nicotine or tobacco, such as cigarettes, e-cigarettes, and chewing tobacco. If you need help quitting, ask your health care provider. ? Do not drink alcohol. ? Make healthy lifestyle changes as recommended. These may include: ? Getting regular exercise. Ask your health care provider to suggest some exercises that are safe for you. ? Eating a heart-healthy diet. This includes plenty of fresh fruits and vegetables, whole grains, low-fat (lean) protein, and low-fat dairy products. A dietitian can help you find healthy eating options. ? Maintaining a healthy weight. ? Managing any other health conditions you may have, such as high blood pressure (hypertension) or diabetes. ? Reducing stress, such as with yoga or relaxation techniques. General instructions ? Pay attention to any changes in your symptoms. ? It is up to you to get the results of any tests that were done. Ask your health care provider, orthe department that is doing the tests, when your results will be ready. ? Keep all follow-up visits as told by your health care provider. This is important. ? You may be asked to go for further testing if your chest pain does not go away. Contact a health care provider if: ? Your chest pain does not go away. ? You feel depressed. ? You have a fever. ? You notice changes in your symptoms or develop new symptoms. Get help right away if: ? Your chest pain gets worse. ? You have a cough that gets worse, or you cough up blood. ? You have severe pain in your abdomen. ? You faint. ? You have sudden, unexplained chest discomfort. ? You have sudden, unexplained discomfort in your arms, back, neck, or jaw. ? You have shortness of breath at any time. ? You suddenly start to sweat, or your skin gets clammy. ? You feel nausea or you vomit. ? You suddenly feel lightheaded or dizzy. ? You have severe weakness, or unexplained weakness or fatigue. ? Your heart begins to beat quickly, or it feels like it is skipping beats. These symptoms may represent a serious problem that is an emergency. Do not wait to see if the symptoms will go away. Get medical help right away. Call your local emergency services (911 in the [place] Do not drive yourself to the hospital. Summary ? Chest pain can be caused by a condition that is serious and requires urgent treatment. It may also be caused by something that is not life-threatening. ? Your health care provider may do lab tests and other studies to find the cause of your pain. ? Follow your health care provider's instructions on taking medicines, making lifestyle changes, and getting emergency treatment if symptoms become worse. ? Keep all follo (more content not included)...[facility] 10-06-2023 Evaluation + Plan noteExtracted from: Title:ED Note Author:Donis Taylor DO Date :10/06/23 Chest pain (R07.9: Chest vinicius n, unspecified) Orders: ketorolac, 15 mg = 1 mL, Injection, IV Push, Once, Stop date 10/06/23 20:50:00 EDT, STAT, Start date 10/06/23 20:50:00 EDT, 10/06/23 20:50:00 EDT magnesium sulfate + Dextrose 5% in Water intravenous solution 100 mL, 1 gram = 100 mL, Soln-IV, IV Piggyback, Once, Stop date 10/06/23 20:50:00 EDT, STAT, Start date 10/06/23 20:50:00 EDT, 300 mL/hr, Infuse over 20 minute(s), 10/06/23 20:50:00 EDT ondansetron, 4 mg = 2 mL, Injection, IV Push, Once, Stop date 10/06/23 20:51:00 EDT, STAT, Start date 10/06/23 20:51:00 EDT, 10/06/23 20:51:00 EDT Sodium Chloride 0.9% intravenous solution, 1,000 mL, Soln-IV, IV, Once, Stop date 10/06/23 20:23:00 EDT, STAT, Start date 10/06/23 20:23:00 EDT, Infuse over 61, minute(s) Add on Test Basic Metabolic Panel CBC w/ Auto Diff D-Dimer ECG 12 Lead Adult ED Cardiac Monitoring eGFR Extra SST Tube Oxygen Saturation Oxygen Therapy PT & PTT Saline Lock Insert Troponin 0 Hr. Troponin 1 Hr. XR Chest Single View [facility]01-15-2024 Evaluation + Plan noteExtracted from: Title:ED Note Author:Marshall Henriquez DO Date :04/15/23 Otitis media (H66.90: Otitis media, unspecified, unspecified ear) Pharyngitis (J02.9: Acute pharyngitis, unspecified) Orders: azithromycin, 500 mg = 2 tab(s), Tab, Oral, Once, Stop date 04/15/23 2:33:00 EST, STAT, Start date 04/15/23 2:33:00 EST, 04/15/23 2:33:00 EST azithromycin, 250 mg, Oral, As Directed, # 6 tab(s), Refills(s) 0, Pharmacy: [facility] #[id number], 160, cm, 04/15/23 2:19:00 EST, Height/Length Dosing, 93.6, kg, 04/15/23 2:19:00 EST, Weight Dosing brompheniramine/dextromethorphan/PSE, 5 mL, Oral, QID for cough and congestion, 200 mL, Refill(s) 0, [facility] #[id number], 160, cm, 04/15/23 2:19:00 EST, Height/Length Dosing, 93.6, kg, 04/15/23 2:19:00 EST, Weight Dosing dexamethasone, 10 mg = 2.5 tab(s), Tab, Oral, Once, Stop date 04/15/23 2:33:00 EST, STAT, Start date 04/15/23 2:33:00 EST, 04/15/23 2:33:00 EST meclizine, 25 mg = 2 tab(s), Tab, Oral, Once, Stop date 04/15/23 2:33:00 EST, STAT, Start date 04/15/23 2:33:00 EST, 04/15/23 2:33:00 EST naproxen, 500 mg = 1 tab(s), Oral, BID, PRN for pain, # 20 tab(s), Refills(s) 0, Pharmacy: [facility] #[id number], 160, cm, 04/15/23 2:19:00 EST, Height/Length Dosing, 93.6, kg, 04/15/23 2:19:00 EST, Weight Dosing tetracaine ophthalmic, 2 drop(s), Soln-Opth, Ear-Right, Once, Stop date 04/15/23 2:32:00 EST, STAT, Start date 04/15/23 2:32:00 EST [facility]01-15-2024 Hospital Discharge instructions Patient Education 04/15/2023 02:59:00 Pharyngitis, Alho-ra-Ubas Pharyngitis Pharyngitis is a sore throat (pharynx). This is when there is redness, pain, and swelling in your throat. Most of the time, this condition gets better on its own. In some cases, you may need medicine. What are the causes? An infection from a virus. An infection from bacteria. Allergies. What increases the risk? Being 5 24 years old. Being in crowded environments. These include: ?Daycares. ?Schools. ?Dormitories. Living in a place with cold temperatures outside. Having a weakened disease-fighting (immune) system. What are the signs or symptoms? Symptoms may vary depending on the cause. Common symptoms include: Sore throat. Tiredness (fatigue). Low-grade fever. Stuffy nose. Cough. Headache. Other symptoms may include: Glands in the neck (lymph nodes) that are swollen. Skin rashes. Film on the throat or tonsils. This can be caused by an infection from bacteria. Vomiting. Red, itchy eyes. Loss of appetite. Joint pain and muscle aches. Tonsils that are temporarily bigger than usual (enlarged). How is this treated? Many times, treatment is not needed. This condition usually gets better in 3 4 days without treatment. If the infection is caused by a bacteria, you may be need to take antibiotics. Follow these instructions at home: Medicines Take vqnk-ppp-vqiphit and prescription medicines only as told by your doctor. If you were prescribed an antibiotic medicine, take it as told by your doctor. Do not stop taking the antibiotic even if you start to feel better. Use throat lozenges or sprays to soothe your throat as told by your doctor. Children can get pharyngitis. Do not give your child aspirin. Managing pain To help with pain, try: Sipping warm liquids, such as: ?Broth. ?Herbal tea. ?Warm water. Eating or drinking cold or frozen liquids, such as frozen ice pops. Rinsing your mouth (gargle) with a salt water mixture 3 4 times a day or as needed. ?To make salt water, dissolve 1 tsp (3 6 g) of salt in 1 cup (237 mL) of warm water. ?Do not swallow this mixture. Sucking on hard candy or throat lozenges. Putting a cool-mist humidifier in your bedroom at night to moisten the air. Sitting in the bathroom with the door closed for 5 10 minutes while you run hot water in the shower. General instructions Do not smoke or use any products that contain nicotine or tobacco. If you need help quitting, ask your doctor. Rest as told by your doctor. Drink enough fluid to keep your pee (urine) pale yellow. How is this prevented? Wash your hands often for at least 20 seconds with soap and water. If soap and water are not available, use hand volunteer services specialist. Do not touch your eyes, nose, or mouth with unwashed hands. Wash hands after touching these areas. Do not share cups or eating utensils. Avoid close contact with people who are sick. Contact a doctor if: You have large, tender lumps in your neck. You have a rash. You cough up green, yellow-brown, or bloody spit. Get help right away if: You have a stiff neck. You drool or cannot swallow liquids. You cannot drink or take medicines without vomiting. You have very bad pain that does not go away with medicine. You have problems breathing, and it is not from a stuffy nose. You have new pain and swelling in your knees, ankles, wrists, or elbows. These symptoms may be an emergency. Get help right away. Call your local emergency services (911 int [place] Do not wait to see if the symptoms will go away. Do not drive yourself to the hospital. Summary Pharyngitis is a sore throat (pharynx). This is when there is redness, pain, and swelling in your throat. Most of the time, pharyngitis gets better on its own. Sometimes, you may need medicine. If you were prescribed an antibiotic medicine, take it as told by your doctor. Do not stop taking the antibiotic even if you start to feel better. This information is not intended to replace advice given to you by your health care provider. Make sure you discuss any questions you have with your health care provider. Document Revised: 06/14/2021 Document Reviewed: 06/14/2021 [employer] Patient Education 2022 [employer]. 04/15/2023 02:59:00 Otitis Media, Adult, Qups-rp-Amls Otitis Media, Adult Otitis media is a condition in which the middle ear is red and swollen (inflamed) and full of fluid. The middle ear is the part of the ear that contains bones for hearing as well as air that helps send sounds to the brain. The condition usually goes away on its own. What are the causes? This condition is caused by a blockage in the eustachian tube. This tube connects the middle ear tothe back of the nose. It normally allows air into the middle ear. The blockage is caused by fluid or swelling. Problems that can cause blockage include: A cold or infection that affects the nose, mouth, or throat. Allergies. An irritant, such as tobacco smoke. Adenoids that have become large. The adenoids are soft tissue located in the back of the throat, behind the nose and the roof of the mouth. Growth or swelling in the upper part of the throat, just behind the nose (nasopharynx). Damage to the ear caused by a change in pressure. This is called barotrauma. What increases the risk? You are more likely to develop this condition if you: Smoke or are exposed to tobacco smoke. Have an opening in the roof of your mouth (cleft palate). Have acid reflux. Have problems in your body's defense system (immune system). What are the signs or symptoms? Symptoms of this condition include: Ear pain. Fever. Problems with hearing. Being tired. Fluid leaking from the ear. Ringing in the ear. How is this treated? This condition can go away on its own within 3 5 days. But if the condition is caused by germs (bacteria) and does not go away on its own, or if it keeps coming back, your doctor may: Give you antibiotic medicines. Give you medicines for pain. Follow these instructions at home: Take pqzq-ejb-cxkpdef and prescription medicines only as told by your doctor. If you were prescribed an antibiotic medicine, take it as told by your doctor. Do not stop taking it even if you start to feel better. Keep all follow-up visits. Contact a doctor if: You have bleeding from your nose. There is a lump on your neck. You are not feeling better in 5 days. You feel worse instead of better. Get help right away if: You have pain that is not helped with medicine. You have swelling, redness, or pain around your ear. You get a stiff neck. You cannot move part of your face (paralysis). You notice that the bone behind your ear hurts when you touch it. You get a very bad headache. Summary Otitis media means that the middle ear is red, swollen, and full of fluid. This condition usually goes away on its own. If the problem does not go away, treatment may be needed. You may be given medicines to treat the infection or to treat your pain. If you were prescribed an antibiotic medicine, take it as told by your doctor. Do not stop taking it even if you start to feel better. Keep all follow-up visits. This information is not intended to replace advice given to you by your health care provider. Make sure you discuss any questions you have with your health care provider. Document Revised: 06/26/2021 Document Reviewed: 06/26/2021 [employer] Patient Education 2022 [employer]. Follow Up Care 04/15/2023 02:06:20 With:REBECCA NAVAS Address: [address] [place] [address]- When:04/18/2023 Comments:Take the antibiotics as prescribed until you have completed the course. You can use the pain medication, cough medication as prescribed as needed for pain and cough. Please follow-up with your primary care doctor in the next 2 to 3 days for further evaluation management. Please return to the ED forany new or worsening symptoms. [facility]12-29-2023 Evaluation + Plan noteExtracted from: Title:ED Note Author:Moisés Lopez MD Date:03/29 1. Diarrhea (R19.7: Diarrhea , unspecified) 2. Body aches (R52: Pain, unspecified) 3. Pharyngitis (J02.9: Acute pharyngitis, unspecified) Orders: APAP/butalbital/caffeine, 2 tab(s), Oral, q6hr for headache, 20 tab(s), Refill(s) 0, [facility] #[id number], 160, cm, 03/29/23 2:45:00 EST, Height/Length Dosing, 97, kg, 03/29/23 2:45:00 EST, Weight Dosing ondansetron, 4 mg = 1 tab(s), Oral, q8hr, # 10 tab(s), Refills(s) 0, [facility]: [id number], 160, cm, 03/29/23 2:45:00 EST, Height/Length Dosing, 97, kg, 03/29/23 2:45:00 EST, Weight Dosing Sodium Chloride 0.9% intravenous solution, 250 mL, Soln-IV, IV, Once, Stop date 03/29/23 4:51:00 EST, STAT, Start date 03/29/23 4:51:00 EST, Infuse over 60, minute(s) Automated Diff Basic Metabolic Panel CBC w/ Auto Diff eGFR Extra Blue Tube Group A Strep by PCR Influenza A&B Ag Rapid COVID Antigen ([facility]) Rapid Strep w/rfx UA With Cult Reflex [facility]12-29-2023 Hospital Discharge instructions Patient Education 03/29/2023 07:10:07 Food Choices to Help Relieve Diarrhea, Adult Food Choices to Help Relieve Diarrhea, Adult Diarrhea can make you feel weak and cause you to become dehydrated. It is important to choose the right foods and drinks to: Relieve diarrhea. Replace lost fluids and nutrients. Prevent dehydration. What are tips for following this plan? Relieving diarrhea Avoid foods that make your diarrhea worse. These may include: ?Foods and beverages sweetened with high-fructose corn syrup, honey, or sweeteners such as xylitol,sorbitol, and mannitol. ?Fried, greasy, or spicy foods. ?Raw fruits and vegetables. Eat foods that are rich in probiotics. These include foods such as yogurt and fermented milk products. Probiotics can help increase healthy bacteria in your stomach and intestines (gastrointestinal tract or GI tract). This may help digestion and stop diarrhea. If you have lactose intolerance, avoid dairy products. These may make your diarrhea worse. Take medicine to help stop diarrhea only as told by your health care provider. Replacing nutrients Eat bland, eqxx-vi-nfeagk foods in small amounts as you are able, until your diarrhea starts to getbetter. These foods include bananas, applesauce, rice, toast, and crackers. Gradually reintroduce nutrient-rich foods as tolerated or as told by your health care provider. This includes: ?Well-cooked protein foods, such as eggs, lean meats like fish or chicken without skin, and tofu. ?Peeled, seeded, and soft-cooked fruits and vegetables. ?Low-fat dairy products. ?Whole grains. Take vitamin and mineral supplements as told by your health care provider. Preventing dehydration Start by sipping water or a solution to prevent dehydration (oral rehydration solution, ORS). This is a drink that helps replace fluids and minerals your body has lost. You can buy an ORS at pharmacies and retail stores. Try to drink at least 8 10 cups (2,000 2,500 mL) of fluid each day to help replace lost fluids. If you have urine that is pale yellow, you are getting enough fluids. You may drink other liquids in addition to water, such as fruit juice that you have added water to (diluted fruit juice) or low-calorie sports drinks, as tolerated or as told by your health care provider. Avoid drinks with caffeine, such as coffee, tea, or soft drinks. Avoid alcohol. Summary When you have diarrhea, it is important to choose the right foods and drinks to relieve diarrhea, to replace lost fluids and nutrients, and to prevent dehydration. Make sure you drink enough fluid to keep your urine pale yellow. You may benefit from eating bland foods at first. Gradually reintroduce healthy, nutrient-rich foods as tolerated or as told by your health care provider. Avoid foods that make your diarrhea worse, such as fried, greasy, or spicy foods. This information is not intended to replace advice given to you by your health care provider. Make sure you discuss any questions you have with your health care provider. Document Revised: 06/08/2022 Document Reviewed: 05/03/2020 [employer] Patient Education 2022 [employer]. 03/29/2023 07:10:07 Diarrhea, Adult Diarrhea, Adult Diarrhea is frequent loose and watery bowel movements. Diarrhea can make you feel weak and cause you to become dehydrated. Dehydration can make you tired and thirsty, cause you to have a dry mouth, and decrease how often you urinate. Diarrhea typically lasts 2 3 days. However, it can last longer if it is a sign of something more serious. It is important to treat your diarrhea as told by your health care provider. Follow these instructions at home: Eating and drinking Follow these recommendations as told by your health care provider: Take an oral rehydration solution (ORS). This is an ywag-ycu-yqhkphz medicine that helps return your body to its normal balance of nutrients and water. It is found at pharmacies and retail stores. Drink plenty of fluids, such as water, ice chips, diluted fruit juice, and low- calorie sports drinks. You can drink milk also, if desired. Avoid drinking fluids that contain a lot of sugar or caffeine, such as energy drinks, sports drinks, and soda. Eat bland, clhs-yo-zqduad foods in small amounts as you are able. These foods include bananas, applesauce, rice, lean meats, toast, and crackers. Avoid alcohol. Avoid spicy or fatty foods. Medicines Take lsqj-vfh-cuugztp and prescription medicines only as told by your health care provider. If you were prescribed an antibiotic medicine, take it as told by your health care provider. Do notstop using the antibiotic even if you start to feel better. General instructions Wash your hands often using soap and water. If soap and water are not available, use a hand volunteer services specialist. Others in the household should wash their hands as well. Hands should be washed: ?After using the toilet or changing a diaper. ?Before preparing, cooking, or serving food. ?While caring for a sick person or while visiting someone in a hospital. Drink enough fluid to keep your urine pale yellow. Rest at home while you recover. Watch your condition for any changes. Take a warm bath to relieve any burning or pain from frequent diarrhea episodes. Keep all follow-up visits as told by your health care provider. This is important. Contact a health care provider if: You have a fever. Your diarrhea gets worse. You have new symptoms. You cannot keep fluids down. You feel light-headed or dizzy. You have a headache. You have muscle cramps. Get help right away if: You have chest pain. You feel extremely weak or you faint. You have bloody or black stools or stools that look like tar. You have severe pain, cramping, or bloating in your abdomen. You have trouble breathing or you are breathing very quickly. Your heart is beating very quickly. Your skin feels cold and clammy. You feel confused. You have signs of dehydration, such as: ?Dark urine, very little urine, or no urine. ?Cracked lips. ?Dry mouth. ?Sunken eyes. ?Sleepiness. ?Weakness. Summary Diarrhea is frequent loose and sometimes watery bowel movements. Diarrhea can make you feel weak and cause you to become dehydrated. Drink enough fluids to keep your urine pale yellow. Make sure that you wash your hands after using the toilet. If soap and water are not available, usehand volunteer services specialist. Contact a health care provider if your diarrhea gets worse or you have new symptoms. Get help right away if you have signs of dehydration. This information is not intended to replace advice given to you by your health care provider. Make sure you discuss any questions you have with your health care provider. Document Revised: 06/08/2022 Document Reviewed: 09/27/2021 [employer] Patient Education 2022 [employer]. 03/29/2023 07:10:07 Pharyngitis, Wtxn-hb-Yyez Pharyngitis Pharyngitis is a sore throat (pharynx). This is when there is redness, pain, and swelling in your throat. Most of the time, this condition gets better on its own. In some cases, you may need medicine. What are the causes? An infection from a virus. An infection from bacteria. Allergies. What increases the risk? Being 5 24 years old. Being in crowded environments. These include: ?Daycares. ?Schools. ?Dormitories. Living in a place with cold temperatures outside. Having a weakened disease-fighting (immune) system. What are the signs or symptoms? Symptoms may vary depending on the cause. Common symptoms include: Sore throat. Tiredness (fatigue). Low-grade fever. Stuffy nose. Cough. Headache. Other symptoms may include: Glands in the neck (lymph nodes) that are swollen. Skin rashes. Film on the throat or tonsils. This can be caused by an infection from bacteria. Vomiting. Red, itchy eyes. Loss of appetite. Joint pain and muscle aches. Tonsils that are temporarily bigger than usual (enlarged). How is this treated? Many times, treatment is not needed. This condition usually gets better in 3 4 days without treatment. If the infection is caused by a bacteria, you may be need to take antibiotics. Follow these instructions at home: Medicines Take toar-ykh-ujnmcop and prescription medicines only as told by your doctor. If you were prescribed an antibiotic medicine, take it as told by your doctor. Do not stop taking the antibiotic even if you start to feel better. Use throat lozenges or sprays to soothe your throat as told by your doctor. Children can get pharyngitis. Do not give your child aspirin. Managing pain To help with pain, try: Sipping warm liquids, such as: ?Broth. ?Herbal tea. ?Warm water. Eating or drinking cold or frozen liquids, such as frozen ice pops. Rinsing your mouth (gargle) with a salt water mixture 3 4 times a day or as needed. ?To make salt water, dissolve 1 tsp (3 6 g) of salt in 1 cup (237 mL) of warm water. ?Do not swallow this mixture. Sucking on hard candy or throat lozenges. Putting a cool-mist humidifier in your bedroom at night to moisten the air. Sitting in the bathroom with the door closed for 5 10 minutes while you run hot water in the shower. General instructions Do not smoke or use any products that contain nicotine or tobacco. If you need help quitting, ask your doctor. Rest as told by your doctor. Drink enough fluid to keep your pee (urine) pale yellow. How is this prevented? Wash your hands often for at least 20 seconds with soap and water. If soap and water are not available, use hand volunteer services specialist. Do not touch your eyes, nose, or mouth with unwashed hands. Wash hands after touching these areas. Do not share cups or eating utensils. Avoid close contact with people who are sick. Contact a doctor if: You have large, tender lumps in your neck. You have a rash. You cough up green, yellow-brown, or bloody spit. Get help right away if: You have a stiff neck. You drool or cannot swallow liquids. You cannot drink or take medicines without vomiting. You have very bad pain that does not go away with medicine. You have problems breathing, and it is not from a stuffy nose. You have new pain and swelling in your knees, ankles, wrists, or elbows. These symptoms may be an emergency. Get help right away. Call your local emergency services (911 int [place] Do not wait to see if the symptoms will go away. Do not drive yourself to the hospital. Summary Pharyngitis is a sore throat (pharynx). This is when there is redness, pain, and swelling in your throat. Most of the time, pharyngitis gets better on its own. Sometimes, you may need medicine. If you were prescribed an antibiotic medicine, take it as told by your doctor. Do not stop taking the antibiotic even if you start to feel better. This information is not intended to replace advice given to you by your health care provider. Make sure you discuss any questions you have with your health care provider. Document Revised: 06/14/2021 Document Reviewed: 06/14/2021 [employer] Patient Education 2022 [employer] Follow Up Care 03/29/2023 02:30:06 With:REBECCA NAVAS Address: [address] [place] [address]- When:3 to 5 days [facility]12-26-2023 Evaluation + Plan noteExtracted from: Title:ED Note Author:Donis Taylor DO Date :03/26/23 Ordered: Automated Diff Basic Metabolic Panel Beta hCG Qual CBC w/ Auto Diff eGFR Hepatic Function Panel Lipase Level UA With Cult Reflex [facility]09-11-2023 Evaluation + Plan noteExtracted from: Title:ED Note Author:Marshall Henriquez DO Date :12/10/22 Abnormal uterine bleeding (N 93.9: Abnormal uterine and vaginal bleeding, unspecified) Pain, dental (K08.89: Other specified disorders of teeth and supporting structures) Orders: benzocaine topical, 1 iliana, Gel, Topical, Once, Stop date 12/10/22 0:50:00 EDT, STAT, Start date 12/10/22 0:50:00 EDT clindamycin, 300 mg = 2 cap(s), Oral, TID, X 7 day(s), # 42 cap(s), Refills(s) 0, Pharmacy: [facility] #[id number], 160, cm, 12/10/22 0:45:00 EDT, Height/Length Dosing, 93, kg, 12/10/22 0:45:00 EDT, Weight Dosing clindamycin, 300 mg = 2 cap(s), Cap, Oral, Once, Stop date 12/10/22 0:51:00 EDT, STAT, Start date 12/10/22 0:51:00 EDT, 12/10/22 0:51:00 EDT lidocaine, 100 mg, 10 mL, Injection, TransDermal, Once, Stop date 12/10/22 0:50:00 EDT, STAT, Start date 12/10/22 0:50:00 EDT naproxen, 500 mg = 2 tab(s), Tab, Oral, Once, Stop date 12/10/22 0:50:00 EDT, STAT, Start date 12/10/22 0:50:00 EDT, 12/10/22 0:50:00 EDT naproxen, 500 mg = 1 tab(s), Oral, BID, PRN for pain, # 20 tab(s), Refills(s) 0, Pharmacy: [facility] #[id number], 160, cm, 12/10/22 0:45:00 EDT, Height/Length Dosing, 93, kg, 12/10/22 0:45:00 EDT, Weight Dosing Automated Diff CBC w/ Auto Diff U Beta Hcg Qual UA With Cult Reflex [facility]09-11-2023 Hospital Discharge instructions Patient Education 12/10/2022 02:34:07 Dental Pain, Bsbv-ry-Sqvc Dental Pain Dental pain is often a sign that something is wrong with your teeth or gums. You can also have painafter a dental treatment. If you have dental pain, it is important to contact your dentist, especially if the cause of the pain is not known. Dental pain may hurt a lot or a little and can be caused by many things, including: Tooth decay (cavities or caries). Infection. The inner part of the tooth being filled with pus (an abscess). Injury. A crack in the tooth. Gums that move back and expose the root of a tooth. Gum disease. Abnormal grinding or clenching of teeth. Not taking good care of your teeth. Sometimes the cause of pain is not known. You may have pain all the time, or it may happen only when you are: Chewing. Exposed to hot or cold temperatures. Eating or drinking foods or drinks that have a lot of sugar in them, such as soda or candy. Follow these instructions at home: Medicines Take blce-xmr-xxpktdz and prescription medicines only as told by your dentist. If you were prescribed an antibiotic medicine, take it as told by your dentist. Do not stop taking it even if you start to feel better. Eating and drinking Do not eat foods or drinks that cause you pain. These include: Very hot or very cold foods or drinks. Sweet or sugary foods or drinks. Managing pain and swelling If told, put ice on the painful area of your face. To do this: ?Put ice in a plastic bag. ?Place a towel between your skin and the bag. ?Leave the ice on for 20 minutes, 2 3 times a day. ?Take off the ice if your skin turns bright red. This is very important. If you cannot feel pain, heat, or cold, you have a greater risk of damage to the area. Brushing your teeth [place] your teeth twice a day using a fluoride toothpaste. Use a toothpaste made for sensitive teeth as told by your dentist. Use a soft toothbrush. General instructions Floss your teeth at least once a day. Do not put heat on the outside of your face. Rinse your mouth often with salt water. To make salt water, dissolve 1 tsp (3 6 g) of salt in 1 cup(237 mL) of warm water. Watch your dental pain. Let your dentist know if there are any changes. Keep all follow-up visits. Contact a dentist if: You have dental pain and you do not know why. Medicine does not help your pain. Your symptoms get worse. You have new symptoms. Get help right away if: You cannot open your mouth. You are having trouble breathing or swallowing. You have a fever. Your face, neck, or jaw is swollen. These symptoms may be an emergency. Get help right away. Call your local emergency services (911 int [place] Do not wait to see if the symptoms will go away. Do not drive yourself to the hospital. Summary Dental pain may be caused by many things, including tooth decay, injury, or infection. In some cases, the cause is not known. Dental pain may hurt a lot or very little. You may have pain all the time, or you may have it only when you eat or drink. Take dgxa-usw-xapnrbw and prescription medicines only as told by your dentist. Watch your dental pain for any changes. Let your dentist know if symptoms get worse. This information is not intended to replace advice given to you by your health care provider. Make sure you discuss any questions you have with your health care provider. Document Revised: 12/21/2020 Document Reviewed: 12/21/2020 [employer] Patient Education 2022 [employer]. 12/10/2022 02:34:07 Abnormal Uterine Bleeding, Zstt-yl-Cjsx Abnormal Uterine Bleeding Abnormal uterine bleeding means bleeding more than normal from your womb (uterus). It can include: Bleeding after sex. Bleeding between monthly (menstrual) periods. Bleeding that is heavier than normal. Monthly periods that last longer than normal. Bleeding after you have stopped having your monthly period (menopause). You should see a doctor for any kind of bleeding that is not normal. Treatment depends on the causeof your bleeding and how much you bleed. Follow these instructions at home: Medicines Take gtgy-qkp-wmgecrv and prescription medicines only as told by your doctor. Ask your doctor about: ?Taking medicines such as aspirin and ibuprofen. Do not take these medicines unless your doctor tells you to take them. ?Taking buww-tnt-qxkxihs medicines, vitamins, herbs, and supplements. You may be given iron pills. Take them as told by your doctor. Managing constipation If you take iron pills, you may need to take these actions to prevent or treat trouble pooping (constipation): Drink enough fluid to keep your pee (urine) pale yellow. Take lnho-bzu-tedepzp or prescription medicines. Eat foods that are high in fiber. These include beans, whole grains, and fresh fruits and vegetables. Limit foods that are high in fat and sugar. These include fried or sweet foods. Activity Change your activity to decrease bleeding if you need to change your sanitary pad more than one time every 2 hours: Lie in bed with your feet raised (elevated). Place a cold pack on your lower belly. Rest as much as you are able until the bleeding stops or slows down. General instructions Do not use tampons, douche, or have sex until your doctor says these things are okay. Change your pads often. Get regular exams. These include: ?Pelvic exams. ?Screenings for cancer of the cervix. It is up to you to get the results of any tests that are done. Ask how to get your results when they are ready. Watch for any changes in your bleeding. For 2 months, write down: ?When your monthly period starts. ?When your monthly period ends. ?When you get any abnormal bleeding from your vagina. ?What problems you notice. Keep all follow-up visits. Contact a doctor if: The bleeding lasts more than one week. You feel dizzy at times. You feel like you may vomit (nausea). You vomit. You feel light-headed or weak. Your symptoms get worse. Get help right away if: You faint. You have to change pads every hour. You have pain in your belly. You have a fever or chills. You get sweaty or weak. You pass large blood clots from your vagina. These symptoms may be an emergency. Get help right away. Call your local emergency services (911 int [place] Do not wait to see if the symptoms will go away. Do not drive yourself to the hospital. Summary Abnormal uterine bleeding means bleeding more than normal from your womb (uterus). Any kind of bleeding that is not normal should be checked by a doctor. Treatment depends on the cause of your bleeding and how much you bleed. Get help right away if you faint, you have to change pads every hour, or you pass large blood clotsfrom your vagina. This information is not intended to replace advice given to you by your health care provider. Make sure you discuss any questions you have with your health care provider. Document Revised: 07/18/2021 Document Reviewed: 07/18/2021 [employer] Patient Education 2022 [employer]. Follow Up Care 12/10/2022 00:38:28 With:Dental: [facility] [phone] Address:Unknown When:12/13/2022 With:Dental: [place] [phone] Address:Unknown When:12/13/2022 With:Dental: [facility] [phone] Address:Unknown When:12/13/2022 With:Varun Young Address: [facility] [address] [address] Business (1) When:12/13/2022 Comments:Take the antibiotics as prescribed you have completed the course. You can use the naproxen every 12hours as needed for pain. 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 Please return to the ED for any new or worsening symptoms With:REBECCA NAVAS Address: [address] [place] [address]- When:12/13/2022 [facility]07-29-2023 Evaluation + Plan noteExtracted from: Title:ED Note Author:Donis Taylor DOSlade Date :10/27/22 Pain, dental (K08.89: Other specified disorders of teeth and supporting structures) Orders: benzocaine topical, 1 iliana, Gel, Topical, QID for 30 day(s), Stop date 11/26/22 2:57:00 EDT, STAT, Start date 10/27/22 2:58:00 EDT clindamycin, 450 mg = 3 cap(s), Oral, TID, X 7 day(s), # 63 cap(s), Refills(s) 0, Pharmacy: [facility] #[id number], 160, cm, 10/27/22 2:02:00 EDT, Height/Length Dosing, 92.1, kg, 10/27/22 2:02:00 EDT, Weight Dosing [facility]07-29-2023 Hospital Discharge instructions Patient Education 10/27/2022 03:16:28 Dental Pain Dental Pain Dental pain is often a sign that something is wrong with your teeth or gums. It is also something that can occur following dental treatment. If you have dental pain, it is important to contact your dental care provider, especially if the cause of the pain has not been determined. Dental pain may beof varying intensity and can be caused by many things, including: Tooth decay (cavities or caries). Cavities are caused by bacteria that produce acids that irritate the nerve of your tooth, making it sensitive to air and hot or cold temperatures. This eventually causes discomfort or pain. Abscess or infection. Once the bacteria reach the inner part of the tooth (pulp), a bacterial infection (dental abscess) can occur. Pus typically collects at the end of the root of a tooth. Injury. A crack in the tooth. Gum recession exposing the root, and possibly the nerves, of a tooth. Gum (periodontal)disease. Abnormal grinding or clenching. Poor or improper home care. An unknown reason (idiopathic). Your pain may be mild or severe. It may occur when you are: Chewing. Exposed to hot or cold temperatures. Eating or drinking sugary foods or beverages, such as soda or candy. Your pain may be constant, or it may come and go without cause. Follow these instructions at home: The following actions may help to lessen any discomfort that you are feeling before or after getting dental care. Medicines Take csot-ldn-lwfberv and prescription medicines only as told by your dental care provider. If you were prescribed an antibiotic medicine, take it as told by your dental care provider. Do notstop taking the antibiotic even if you start to feel better. Eating and drinking Avoid foods or drinks that cause you pain, such as: Very hot or very cold foods or drinks. Sweet or sugary foods or drinks. Managing pain and swelling Ice can sometimes be used to reduce pain and swelling, especially if the pain is following dental treatment. If directed, put ice on the painful area of your face. To do this: ?Put ice in a plastic bag. ?Place a towel between your skin and the bag. ?Leave the ice on for 20 minutes, 2 3 times a day. ?Remove the ice if your skin turns bright red. This is very important. If you cannot feel pain, heat, or cold, you have a greater risk of damage to the area. Brushing your teeth To keep your mouth and gums healthy, brush your teeth twice a day using a fluoride toothpaste. Use a toothpaste made for sensitive teeth as directed by your dental care provider, especially if the root is exposed. Always brush your teeth with a soft-bristled toothbrush. This will help prevent irritation to your gums. General instructions Floss at least once a day. Do not apply heat to the outside of the face. Gargle with a mixture of salt and water 3 4 times a day or as needed. To make salt water, completely dissolve 1 tsp (3 6 g) of salt in 1 cup (237 mL) of warm water. Keep all follow-up visits. This is important. Contact a dental care provider if: You have any unexplained dental pain. Your pain is not controlled with medicines. Your symptoms get worse. You have new symptoms. Get help right away if: You are unable to open your mouth. You are having trouble breathing or swallowing. You have a fever. You notice that your face, neck, or jaw is swollen. These symptoms may represent a serious problem that is an emergency. Do not wait to see if the symptoms will go away. Get medical help right away. Call your local emergency services (911 in the [place] Do not drive yourself to the hospital. Summary Dental pain may be caused by many things, including tooth decay and infection. Your pain may be mild or severe. Take nuga-qak-qsptquh and prescription medicines only as told by your dental care provider. Watch your dental pain for any changes. Let your dental care provider know if your symptoms get worse. This information is not intended to replace advice given to you by your health care provider. Make sure you discuss any questions you have with your health care provider. Document Revised: 12/21/2020 Document Reviewed: 12/21/2020 [employer] Patient Education 2022 [employer]. Follow Up Care 10/27/2022 01:51:35 With:Dental: [facility] [phone] Address:Unknown When:10/30/2022 With:Dental: [place] [facility] [phone] Address:Unknown When:10/30/2022 With:Dental: [facility] [phone] Address:Unknown When:10/30/2022 With:[facility] Address: [address] [place] [phone] Business (1) When:10/30/2022 [facility]06-20-2023 Evaluation + Plan noteExtracted from: Title:ED Note Author:Narendra Thomas M.D. te:09/18/22 1. Chest pain (R07.9: Chest pain, unspecified) 2. Abdominal pain (R10.9: Unspecified abdominal pain) Orders: dicyclomine, 20 mg = 2 mL, Injection, IntraMuscular, Once, Stop date 09/18/22 1:17:00 EDT, STAT, Start date 09/18/22 1:17:00 EDT, 09/18/22 1:17:00 EDT ketorolac, 30 mg = 1 mL, Injection, IV Push, Once, Stop date 09/18/22 0:02:00 EDT, STAT, Start date 09/18/22 0:02:00 EDT, 09/18/22 0:02:00 EDT ondansetron, 4 mg = 2 mL, Injection, IV Push, Once, Stop date 09/18/22 0:01:00 EDT, STAT, Start date 09/18/22 0:01:00 EDT, 09/18/22 0:01:00 EDT Sodium Chloride 0.9% intravenous solution, 1,000 mL, Soln-IV, IV, Once, Stop date 09/18/22 0:01:00 EDT, STAT, Start date 09/18/22 0:01:00 EDT, Infuse over 61, minute(s) Automated Diff Basic Metabolic Panel Beta hCG Qual CBC w/ Auto Diff CT Abdomen/Pelvis w/ Contrast ECG 12 Lead Adult eGFR Hepatic Function Panel Lipase Level PT & PTT Troponin 0 Hr. Troponin 3 Hr. UA With Cult Reflex [facility]06-20-2023 Hospital Discharge instructions Patient Education 09/18/2022 04:02:44 Nonspecific Chest Pain, Adult Nonspecific Chest Pain, Adult Chest pain is an uncomfortable, tight, or painful feeling in the chest. The pain can feel like a crushing, aching, or squeezing pressure. A person can feel a burning or tingling sensation. Chest paincan also be felt in your back, neck, jaw, shoulder, or arm. This pain can be worse when you move, sneeze, or take a deep breath. Chest pain can be caused by a condition that is life-threatening. This must be treated right away. It can also be caused by something that is not life- threatening. If you have chest pain, it can be hard to know the difference, so it is important to get help right away to make sure that you do not have a serious condition. Some life-threatening causes of chest pain include: Heart attack. A tear in the body's main blood vessel (aortic dissection). Inflammation around your heart (pericarditis). A problem in the lungs, such as a blood clot (pulmonary embolism) or a collapsed lung (pneumothorax). Some non life-threatening causes of chest pain include: Heartburn. Anxiety or stress. Damage to the bones, muscles, and cartilage that make up your chest wall. Pneumonia or bronchitis. Shingles infection (varicella-zoster virus). Your chest pain may come and go. It may also be constant. Your health care provider will do tests and other studies to find the cause of your pain. Treatment will depend on the cause of your chest pain. Follow these instructions at home: Medicines Take fbwg-lzh-nkpwbvf and prescription medicines only as told by your health care provider. If you were prescribed an antibiotic medicine, take it as told by your health care provider. Do notstop taking the antibiotic even if you start to feel better. Activity Avoid any activities that cause chest pain. Do not lift anything that is heavier than 10 lb (4.5 kg), or the limit that you are told, until your health care provider says that it is safe. Rest as directed by your health care provider. Return to your normal activities only as told by your health care provider. Ask your health care provider what activities are safe for you. Lifestyle Do not use any products that contain nicotine or tobacco, such as cigarettes, e- cigarettes, and chewing tobacco. If you need help quitting, ask your health care provider. Do not drink alcohol. Make healthy lifestyle changes as recommended. These may include: ?Getting regular exercise. Ask your health care provider to suggest some exercises that are safe for you. ?Eating a heart-healthy diet. This includes plenty of fresh fruits and vegetables, whole grains, low-fat (lean) protein, and low-fat dairy products. A dietitian can help you find healthy eating options. ?Maintaining a healthy weight. ?Managing any other health conditions you may have, such as high blood pressure (hypertension) or diabetes. ?Reducing stress, such as with yoga or relaxation techniques. General instructions Pay attention to any changes in your symptoms. It is up to you to get the results of any tests that were done. Ask your health care provider, or the department that is doing the tests, when your results will be ready. Keep all follow-up visits as told by your health care provider. This is important. You may be asked to go for further testing if your chest pain does not go away. Contact a health care provider if: Your chest pain does not go away. You feel depressed. You have a fever. You notice changes in your symptoms or develop new symptoms. Get help right away if: Your chest pain gets worse. You have a cough that gets worse, or you cough up blood. You have severe pain in your abdomen. You faint. You have sudden, unexplained chest discomfort. You have sudden, unexplained discomfort in your arms, back, neck, or jaw. You have shortness of breath at any time. You suddenly start to sweat, or your skin gets clammy. You feel nausea or you vomit. You suddenly feel lightheaded or dizzy. You have severe weakness, or unexplained weakness or fatigue. Your heart begins to beat quickly, or it feels like it is skipping beats. These symptoms may represent a serious problem that is an emergency. Do not wait to see if the symptoms will go away. Get medical help right away. Call your local emergency services (911 in the [place] Do not drive yourself to the hospital. Summary Chest pain can be caused by a condition that is serious and requires urgent treatment. It may also be caused by something that is not life-threatening. Your health care provider may do lab tests and other studies to find the cause of your pain. Follow your health care provider's instructions on taking medicines, making lifestyle changes, and getting emergency treatment if symptoms become worse. Keep all follow-up visits as told by your health care provider. This includes visits for any further testing if your chest pain does not go away. This information is not intended to replace advice given to you by your health care provider. Make sure you discuss any questions you have with your health care provider. Document Revised: 06/01/2021 Document Reviewed: 06/01/2021 [employer] Patient Education 2022 [employer]. 09/18/2022 04:02:44 Abdominal Pain, Adult Abdominal Pain, Adult Pain in the abdomen (abdominal pain) can be caused by many things. Often, abdominal pain is not serious and it gets better with no treatment or by being treated at home. However, sometimes abdominal pain is serious. Your health care provider will ask questions about your medical history and do a physical exam to try to determine the cause of your abdominal pain. Follow these instructions at home: Medicines Take znvh-dea-kgsbbty and prescription medicines only as told by your health care provider. Do not take a laxative unless told by your health care provider. General instructions Watch your condition for any changes. Drink enough fluid to keep your urine pale yellow. Keep all follow-up visits as told by your health care provider. This is important. Contact a health care provider if: Your abdominal pain changes or gets worse. You are not hungry or you lose weight without trying. You are constipated or have diarrhea for more than 2 3 days. You have pain when you urinate or have a bowel movement. Your abdominal pain wakes you up at night. Your pain gets worse with meals, after eating, or with certain foods. You are vomiting and cannot keep anything down. You have a fever. You have blood in your urine. Get help right away if: Your pain does not go away as soon as your health care provider told you to expect. You cannot stop vomiting. Your pain is only in areas of the abdomen, such as the right side or the left lower portion of the abdomen. Pain on the right side could be caused by appendicitis. You have bloody or black stools, or stools that look like tar. You have severe pain, cramping, or bloating in your abdomen. You have signs of dehydration, such as: ?Dark urine, very little urine, or no urine. ?Cracked lips. ?Dry mouth. ?Sunken eyes. ?Sleepiness. ?Weakness. You have trouble breathing or chest pain. Summary Often, abdominal pain is not serious and it gets better with no treatment or by being treated at home. However, sometimes abdominal pain is serious. Watch your condition for any changes. Take bqrq-ubm-jfclcqe and prescription medicines only as told by your health care provider. Contact a health care provider if your abdominal pain changes or gets worse. Get help right away if you have severe pain, cramping, or bloating in your abdomen. This information is not intended to replace advice given to you by your health care provider. Make sure you discuss any questions you have with your health care provider. Document Revised: 05/06/2020 Document Reviewed: 07/27/2019 [employer] Patient Education 2022 [employer]. Follow Up Care 09/17/2022 23:45:11 With:REBECCA NAVAS Address: [address] [place] [address]- When:09/21/2022 Comments:Return to the emergency room if your symptoms get worse or any new symptoms [facility]03-26-2023 Hospital Discharge instructions Additional Instructions Please talk to your human service technician this week about the symptoms you are having. It is clear to me that the symptoms are perimenopausal. It is not the medication that is causing your symptoms. If your symptoms are this severe, you can talk to your human service technician about hormone replacement. There are downsides and we talked about some of them. You and your human service technician will have to discuss this and make a decision. I cannot give you medication that will stop your symptoms tonight.[facility] Work Phone: [phone]) 715-416311-07-2022 Hospital Discharge instructions Patient Education 02/04/2022 23:21:10 Upper Respiratory Infection, Adult, Zvoz-uu-Eral Upper Respiratory Infection, Adult An upper respiratory infection (URI) affects the nose, throat, and upper air passages. URIs are caused by germs (viruses). The most common type of URI is often called the common cold. Medicines cannot cure URIs, but you can do things at home to relieve your symptoms. URIs usually get better within 7 10 days. Follow these instructions at home: Activity Rest as needed. If you have a fever, stay home from work or school until your fever is gone, or until your doctor says you may return to work or school. ?You should stay home until you cannot spread the infection anymore (you are not contagious). ?Your doctor may have you wear a face mask so you have less risk of spreading the infection. Relieving symptoms Gargle with a salt-water mixture 3 4 times a day or as needed. To make a salt- water mixture, completely dissolve 1 tsp of salt in 1 cup of warm water. Use a cool-mist humidifier to add moisture to the air. This can help you breathe more easily. Eating and drinking Drink enough fluid to keep your pee (urine) pale yellow. Eat soups and other clear broths. General instructions Take qsrq-hpq-rdengmj and prescription medicines only as told by your doctor. These include cold medicines, fever reducers, and cough suppressants. Do not use any products that contain nicotine or tobacco. These include cigarettes and e-cigarettes. If you need help quitting, ask your doctor. Avoid being where people are smoking (avoid secondhand smoke). Make sure you get regular shots and get the flu shot every year. Keep all follow-up visits as told by your doctor. This is important. How to avoid spreading infection to others Wash your hands often with soap and water. If you do not have soap and water, use hand volunteer services specialist. Avoid touching your mouth, face, eyes, or nose. Cough or sneeze into a tissue or your sleeve or elbow. Do not cough or sneeze into your hand or into the air. Contact a doctor if: You are getting worse, not better. You have any of these: ?A fever. ?Chills. ?Brown or red mucus in your nose. ?Yellow or brown fluid (discharge)coming from your nose. ?Pain in your face, especially when you bend forward. ?Swollen neck glands. ?Pain with swallowing. ?White areas in the back of your throat. Get help right away if: You have shortness of breath that gets worse. You have very bad or constant: ?Headache. ?Ear pain. ?Pain in your forehead, behind your eyes, and over your cheekbones (sinus pain). ?Chest pain. You have long-lasting (chronic) lung disease along with any of these: ?Wheezing. ?Long-lasting cough. ?Coughing up blood. ?A change in your usual mucus. You have a stiff neck. You have changes in your: ?Vision. ?Hearing. ?Thinking. ?Mood. Summary An upper respiratory infection (URI) is caused by a germ called a virus. The most common type of URI is often called the common cold. URIs usually get better within 7 10 days. Take obhm-klb-jtacpmx and prescription medicines only as told by your doctor. This information is not intended to replace advice given to you by your health care provider. Make sure you discuss any questions you have with your health care provider. Document Released: 09/03/2008 Document Revised: 03/26/2019 Document Reviewed: 11/08/2017 [employer] Patient Education 2020 [employer]. 02/04/2022 23:21:10 Cough, Adult, Rfpv-gj-Sxoy Cough, Adult A cough helps to clear your throat and lungs. A cough may be a sign of an illness or another medical condition. An acute cough may only last 2 3 weeks, while a chronic cough may last 8 or more weeks. Many things can cause a cough. They include: Germs (viruses or bacteria) that attack the airway. Breathing in things that bother (irritate) your lungs. Allergies. Asthma. Mucus that runs down the back of your throat (postnasal drip). Smoking. Acid backing up from the stomach into the tube that moves food from the mouth to the stomach (gastroesophageal reflux). Some medicines. Lung problems. Other medical conditions, such as heart failure or a blood clot in the lung (pulmonary embolism). Follow these instructions at home: Medicines Take pnyk-hqv-lsfppym and prescription medicines only as told by your doctor. Talk with your doctor before you take medicines that stop a cough (coughsuppressants). Lifestyle Do not smoke, and try not to be around smoke. Do not use any products that contain nicotine or tobacco, such as cigarettes, e-cigarettes, and chewing tobacco. If you need help quitting, ask your doctor. Drink enough fluid to keep your pee (urine) pale yellow. Avoid caffeine. Do not drink alcohol if your doctor tells you not to drink. General instructions Watch for any changes in your cough. Tell your doctor about them. Always cover your mouth when you cough. Stay away from things that make you cough, such as perfume, candles, campfire smoke, or cleaning products. If the air is dry, use a cool mist vaporizer or humidifier in your home. If your cough is worse at night, try using extra pillows to raise your head up higher while you sleep. Rest as needed. Keep all follow-up visits as told by your doctor. This is important. Contact a doctor if: You have new symptoms. You cough up pus. Your cough does not get better after 2 3 weeks, or your cough gets worse. Cough medicine does not help your cough and you are not sleeping well. You have pain that gets worse or pain that is not helped with medicine. You have a fever. You are losing weight and you do not know why. You have night sweats. Get help right away if: You cough up blood. You have trouble breathing. Your heartbeat is very fast. These symptoms may be an emergency. Do not wait to see if the symptoms will go away. Get medical help right away. Call your local emergency services (911 in the [place] Do not drive yourself to the hospital. Summary A cough helps to clear your throat and lungs. Many things can cause a cough. Take kmkt-dab-fqlxgwe and prescription medicines only as told by your doctor. Always cover your mouth when you cough. Contact a doctor if you have new symptoms or you have a cough that does not get better or gets worse. This information is not intended to replace advice given to you by your health care provider. Make sure you discuss any questions you have with your health care provider. Document Released: 11/29/2011 Document Revised: 04/06/2019 Document Reviewed: 04/06/2019 [employer] Patient Education 2019 [employer]. Follow Up Care 02/04/2022 20:31:22 With:REBECCAJerman NAVAS Address: [address] [place] [address]- When:02/07/2022 only if needed [facility]11-06-2022 Evaluation + Plan noteExtracted from: Title:ED Note Author:Moisés Lopez MD Date: 1. Cough (R05.9: Cough, unsp ecified) 2. Upper respiratory tract infection (J06.9: Acute upper respiratory infection, unspecified) Orders: brompheniramine/dextromethorphan/PSE, 5 mL, Syrup, Oral, QID PRN for cough and congestion, STAT, Start date 02/04/22 23:19:00 EST brompheniramine/dextromethorphan/PSE, 5 mL, Oral, QID for cough and congestion, 200 mL, Refill(s) 0, [facility] #[id number], 160, cm, 02/04/22 20:38:00 EST, Height/Length Dosing, 87.6, kg, 02/04/22 20:38:00 EST, Weight Dosing Influenza A&B Ag [facility]10-30-2022 Evaluation + Plan noteExtracted from: Title:ED Note Author:Marshall Henriquez DO Date :01/28/22 Acute colitis (K52.9: Noninf ective gastroenteritis and colitis, unspecified) Orders: acetaminophen-hydrocodone, 1 EA, Tab, Oral, Once, Stop date 01/28/22 3:18:00 EDT, STAT, Start date 01/28/22 3:18:00 EDT ciprofloxacin, 500 mg = 1 tab(s), Oral, BID, # 20 tab(s), Refills(s) 0, Pharmacy: [facility] #[id number], 160, cm, 01/28/22 1:37:00 EDT, Height/Length Dosing, 87.2, kg, 01/28/22 1:37:00 EDT, Weight Dosing ciprofloxacin, 500 mg = 1 tab(s), Tab, Oral, Once, Stop date 01/28/22 3:18:00 EDT, STAT, Start date 01/28/22 3:18:00 EDT, 01/28/22 3:18:00 EDT dicyclomine, 20 mg = 1 tab(s), Tab, Oral, Once, Stop date 01/28/22 3:18:00 EDT, STAT, Start date 01/28/22 3:18:00 EDT, 01/28/22 3:18:00 EDT dicyclomine, 10 mg = 1 cap(s), Oral, QID, X 7 day(s), # 14 cap(s), Refills(s) 0, Pharmacy: [facility] #[id number], 160, cm, 01/28/22 1:37:00 EDT, Height/Length Dosing, 87.2, kg, 01/28/22 1:37:00 EDT, Weight Dosing ketorolac, 30 mg = 1 mL, Injection, IV Push, Once, Stop date 01/28/22 2:00:00 EDT, STAT, Start date 01/28/22 2:00:00 EDT, 01/28/22 2:00:00 EDT lactobacillus acidophilus, 1 cap(s), Oral, Daily, 30 cap(s), Refill(s) 0, [facility] #[id number], 160, cm, 01/28/22 1:37:00 EDT, Height/Length Dosing, 87.2, kg, 01/28/22 1:37:00 EDT, Weight Dosing metronidazole, 500 mg = 1 tab(s), Tab, Oral, Once, Stop date 01/28/22 3:18:00 EDT, STAT, Start date 01/28/22 3:18:00 EDT, 01/28/22 3:18:00 EDT metronidazole, 500 mg = 1 tab(s), Oral, TID, X 10 day(s), # 30 tab(s), Refills(s) 0, Pharmacy: [facility] #[id number], 160, cm, 01/28/22 1:37:00 EDT, Height/Length Dosing, 87.2, kg, 01/28/22 1:37:00 EDT, Weight Dosing ondansetron, 4 mg = 2 mL, Injection, IV Push, Once, Stop date 01/28/22 2:00:00 EDT, STAT, Start date 01/28/22 2:00:00 EDT, 01/28/22 2:00:00 EDT ondansetron, 4 mg = 1 tab(s), Oral, q8hr, PRN Nausea/Vomiting, # 12 tab(s), Refills(s) 0, Pharmacy: [facility] #[id number], 160, cm, 01/28/22 1:37:00 EDT, Height/Length Dosing, 87.2, kg, 01/28/22 1:37:00 EDT, Weight Dosing Sodium Chloride 0.9% intravenous solution, 1,000 mL, Soln-IV, IV, Once, Stop date 01/28/22 2:00:00 EDT, STAT, Start date 01/28/22 2:00:00 EDT, mL/hr, Infuse over 61, minute(s) Automated Diff Basic Metabolic Panel CBC w/ Auto Diff CT Abdomen/Pelvis w/ Contrast eGFR Hepatic Function Panel Lipase Level UA With Cult Reflex [facility]10-30-2022 Hospital Discharge instructions Patient Education 01/28/2022 03:36:46 Colitis Colitis Colitis is inflammation of the colon. Colitis may last a short time (be acute), or it may last a long time (become chronic). What are the causes? This condition may be caused by: Viruses. Bacteria. Reaction to medicine. Certain autoimmune diseases such as Crohn's disease or ulcerative colitis. Radiation treatment. Decreased blood flow to the bowel (ischemia). What are the signs or symptoms? Symptoms of this condition include: Watery diarrhea. Passing bloody or tarry stool. Pain. Fever. Vomiting. Tiredness (fatigue). Weight loss. Bloating. Abdominal pain. Having fewer bowel movements than usual. A strong and sudden urge to have a bowel movement. Feeling like the bowel is not empty after a bowel movement. How is this diagnosed? This condition is diagnosed with a stool test or a blood test. You may also have other tests, such as: X-rays. CT scan. Colonoscopy. Endoscopy. Biopsy. How is this treated? Treatment for this condition depends on the cause. The condition may be treated by: Resting the bowel. This involves not eating or drinking for a period of time. Fluids that are given through an IV. Medicine for pain and diarrhea. Antibiotic medicines. Cortisone medicines. Surgery. Follow these instructions at home: Eating and drinking Follow instructions from your health care provider about eating or drinking restrictions. Drink enough fluid to keep your urine pale yellow. Work with a dietitian to determine which foods cause your condition to flare up. Avoid foods that cause flare-ups. Eat a well-balanced diet. General instructions If you were prescribed an antibiotic medicine, take it as told by your health care provider. Do notstop taking the antibiotic even if you start to feel better. Take qzed-tfv-ikwkxjo and prescription medicines only as told by your health care provider. Keep all follow-up visits as told by your health care provider. This is important. Contact a health care provider if: Your symptoms do not go away. You develop new symptoms. Get help right away if you: Have a fever that does not go away with treatment. Develop chills. Have extreme weakness, fainting, or dehydration. Have repeated vomiting. Develop severe pain in your abdomen. Pass bloody or tarry stool. Summary Colitis is inflammation of the colon. Colitis may last a short time (be acute), or it may last a long time (become chronic). Treatment for this condition depends on the cause and may include resting the bowel, taking medicines, or having surgery. If you were prescribed an antibiotic medicine, take it as told by your health care provider. Do notstop taking the antibiotic even if you start to feel better. Get help right away if you develop severe pain in your abdomen. Keep all follow-up visits as told by your health care provider. This is important. This information is not intended to replace advice given to you by your health care provider. Make sure you discuss any questions you have with your health care provider. Document Released: 04/25/2005 Document Revised: 09/18/2018 Document Reviewed: 09/18/2018 [employer] Patient Education 2020 [employer]. Follow Up Care 01/28/2022 01:31:27 With:Dk BOTELLO Address: [address] [place] [address] Business (1) When:01/31/2022 Comments:Take the antibiotics as prescribed to completed the course, you can use the pain medication, nauseamedication as prescribed as needed for pain and nausea. Please follow-up with your primary care doctor in the next 2 to 3 days. Please return the ED for any new or worsening symptoms. With:REBECCA NAVAS Address: [address] [place] [address]- When:Within 3 Day(s) [facility]09-29-2022 Evaluation + Plan noteExtracted from: Title:ED Note Author:Martinez SILVEIRA Tabgracia Stoll Date :12/28/21 Flank pain (R10.9: Unspecifi ed abdominal pain) Orders: acetaminophen-hydrocodone, 1 tab(s), Tab, Oral, Once, Stop date 12/28/21 1:35:00 EDT, STAT, Start date 12/28/21 1:35:00 EDT acetaminophen-hydrocodone, 1 EA, Tab, Oral, Once, Stop date 12/28/21 1:56:00 EDT, STAT, Start date 12/28/21 1:56:00 EDT fentanyl, 50 microgram = 1 mL, Injection, IV Push, Once, Stop date 12/28/21 1:12:00 EDT, STAT, Start date 12/28/21 1:12:00 EDT, 12/28/21 1:12:00 EDT ketorolac, 30 mg = 1 mL, Injection, IV Push, Once, Stop date 12/28/21 0:30:00 EDT, STAT, Start date 12/28/21 0:30:00 EDT, 12/28/21 0:30:00 EDT naproxen, 500 mg = 1 tab(s), Oral, BID, PRN for pain, # 20 tab(s), Refills(s) 0 ondansetron, 4 mg = 2 mL, Injection, IV Push, Once, Stop date 12/28/21 0:30:00 EDT, STAT, Start date 12/28/21 0:30:00 EDT, 12/28/21 0:30:00 EDT ondansetron, 4 mg = 1 tab(s), Oral, q8hr, PRN Nausea/Vomiting, # 12 tab(s), Refills(s) 0 Sodium Chloride 0.9% intravenous solution, 1,000 mL, Soln-IV, IV, Once, Stop date 12/28/21 0:30:00 EDT, STAT, Start date 12/28/21 0:30:00 EDT, mL/hr, Infuse over 61, minute(s) Automated Diff Basic Metabolic Panel CBC w/ Auto Diff CT Abdomen/Pelvis w/o Contrast D-Dimer ECG 12 Lead Adult eGFR Hepatic Function Panel Lipase Level Troponin 0 Hr. UA With Cult Reflex XR Chest Single View [facility]09-29-2022 Hospital Discharge instructions Patient Education 12/28/2021 02:05:09 Flank Pain, Adult Flank Pain, Adult Flank pain is pain that is located on the side of the body between the upper abdomen and the back. This area is called the flank. The pain may occur over a short period of time (acute), or it may be long-term or recurring (chronic). It may be mild or severe. Flank pain can be caused by many things,including: Muscle soreness or injury. Kidney stones or kidney disease. Stress. A disease of the spine (vertebral disk disease). A lung infection (pneumonia). Fluid around the lungs (pulmonary edema). A skin rash caused by the chickenpox virus (shingles). Tumors that affect the back of the abdomen. Gallbladder disease. Follow these instructions at home: Drink enough fluid to keep your urine clear or pale yellow. Rest as told by your health care provider. Take ltuh-nkn-rtgxlas and prescription medicines only as told by your health care provider. Keep a journal to track what has caused your flank pain and what has made it feel better. Keep all follow-up visits as told by your health care provider. This is important. Contact a health care provider if: Your pain is not controlled with medicine. You have new symptoms. Your pain gets worse. You have a fever. Your symptoms last longer than 2 3 days. You have trouble urinating or you are urinating very frequently. Get help right away if: You have trouble breathing or you are short of breath. Your abdomen hurts or it is swollen or red. You have nausea or vomiting. You feel faint or you pass out. You have blood in your urine. Summary Flank pain is pain that is located on the side of the body between the upper abdomen and the back. The pain may occur over a short period of time (acute), or it may be long-term or recurring (chronic). It may be mild or severe. Flank pain can be caused by many things. Contact your health care provider if your symptoms get worse or they last longer than 2 3 days. This information is not intended to replace advice given to you by your health care provider. Make sure you discuss any questions you have with your health care provider. Document Released: 05/09/2006 Document Revised: 02/28/2018 Document Reviewed: 05/31/2017 [employer] Patient Education 2020 [employer]. Follow Up Care 12/28/2021 00:03:15 With:REBECCA NAVAS Address: [address] [place] [address]- When:12/31/2021 Comments:He can take the pain medication as prescribed as needed for pain, you can use nausea medication every 6 hours as needed for nausea or vomiting. Please follow-up with your primary care doctor next 2 to 3 days. Please return to the ED for any new or worsening symptoms. [facility]09-[facility]-2022 Evaluation + Plan noteExtracted from: Title:ED Note Author:Donis Taylor DO Date :12/05/21 Pain, dental (K08.89: Other specified disorders of teeth and supporting structures) Paresthesias (R20.2: Paresthesia of skin) Orders: benzocaine topical, 1 iliana, Gel, Topical, QID for 30 day(s), Stop date 01/04/22 0:52:00 EDT, STAT, Start date 12/05/21 0:53:00 EDT clindamycin, 450 mg = 3 cap(s), Cap, Oral, Once, Stop date 12/05/21 0:53:00 EDT, STAT, Start date 12/05/21 0:53:00 EDT, 12/05/21 0:53:00 EDT clindamycin, 450 mg = 3 cap(s), Oral, q8hr, X 7 day(s), # 63 cap(s), Refills(s) 0, Pharmacy: [id number], 160, cm, 12/05/21 0:49:00 EDT, Height/Length Dosing, 86, kg, 12/05/21 0:49:00 EDT, Weight Dosing lidocaine topical, 200 mg, 10 mL, Soln-Oral, Oral, Once, Stop date 12/05/21 0:53:00 EDT, STAT, Start date 12/05/21 0:53:00 EDT ECG 12 Lead Adult [facility]09-06-2022 Hospital Discharge instructions Patient Education 12/05/2021 01:19:12 Dental Pain Dental Pain Dental pain may be caused by many things, including: Tooth decay (cavities or caries). Cavities expose the nerve of your tooth to air and to hot or coldtemperatures. This can cause pain or discomfort. Abscess or infection. A dental abscess is a collection of pus from a bacterial infection in the inner part of the tooth (pulp). It usually occurs at the end of the root of a tooth. Injury. An unknown reason (idiopathic). Your pain may be mild or severe. It may occur when you are: Chewing. Exposed to hot or cold temperatures. Eating or drinking sugary foods or beverages, such as soda or candy. Your pain may be constant, or it may come and go without cause. Follow these instructions at home: Watch your dental pain for any changes. The following actions may help to lessen any discomfort that you are feeling: Medicines Take rwyu-cmd-kdlpuzo and prescription medicines only as told by your health care provider. If you were prescribed an antibiotic medicine, take it as told by your health care provider. Do notstop taking the antibiotic even if you start to feel better. Eating and drinking Avoid foods or drinks that cause you pain, such as: ?Very hot or very cold foods or drinks. ?Sweet or sugary foods or drinks. Managing pain and swelling Apply ice to the painful area of your face: ?Put ice in a plastic bag. ?Place a towel between your skin and the bag. ?Leave the ice on for 20 minutes, 2 3 times a day. Brushing your teeth To keep your mouth and gums healthy, use fluoride toothpaste to brush your teeth twice a day. Flossonce a day. Use a toothpaste made for sensitive teeth if directed by your health care provider. [place] your teeth with a soft-bristled toothbrush. General instructions Do not apply heat to the outside of your face. Gargle with a salt-water mixture 3 4 times a day or as needed. To make a salt- water mixture, completely dissolve 1 tsp of salt in 1 cup of warm water. Keep all follow-up visits as told by your health care provider. This is important. Apply ice to the outside of your jaw if there is swelling. Do not put ice directly on the skin. Contact a health care provider if: Your pain is not controlled with medicines. Your symptoms get worse. You have new symptoms. Get help right away if you: Are unable to open your mouth. Are having trouble breathing or swallowing. Have a fever. Notice that your face, neck, or jaw is swollen. Summary Dental pain may be caused by many things, including tooth decay and infection. Your pain may be mild or severe. Take bwyc-djs-mlyuwhl and prescription medicines only as told by your health care provider. Watch your dental pain for any changes. Let your health care provider know if symptoms get worse. This information is not intended to replace advice given to you by your health care provider. Make sure you discuss any questions you have with your health care provider. Document Released: 03/18/2006 Document Revised: 07/14/2019 Document Reviewed: 02/06/2018 [employer] Patient Education 2020 [employer]. Follow Up Care 12/05/2021 00:37:31 With:Dental: [facility] [phone] Address:Unknown When:12/08/2021 With:Dental: [place] [facility] [phone] Address:Unknown When:12/08/2021 With:Dental: [facility] [phone] Address:Unknown When:12/08/2021 With:REBECCA NAVAS Address: [address] [place] [address]- When:Within 3 Day(s) [facility] noteNo assessment information available [facility] Work Phone: Evaluation note* Diagnosis Onset Date Resolution Status Suicidal ideation acute [facility] Work Phone: Evaluation note* Diagnosis Onset Date Resolution Status Depression acute Suicidal ideation acute [facility] Work Phone: Hospital course Narrative No data available for this section [facility] Work Phone: [facility] Work Phone: [facility] Discharge instructions[facility] Discharge instructions Additional Instructions Zyrtec or Claritin odxk-lvw-rcsytqd may be beneficial Use humidifier Flonase ggct-fun-upjhpja may be beneficial Antibiotic as instructed until gone Take Naprosyn or Tylenol if needed for pain Follow-up with your dentist and your primary care on Saturday Return here if any problems persist or worsenSelect [facility]: [facility] Discharge instructions[facility] Discharge instructions Additional Instructions You are already on antibiotics. You had medication for pain. You have medication for nausea. There is not much more I can do for your dental issues. You need to see the dentist.[facility] Work Phone: Hospital Discharge instructions Additional Instructions There is no sign of kidney stone, infection, or other cause for your pain. This is reassuring. Please follow up with your doctor.[facility] Work Phone: Hospital Discharge instructions Additional Instructions Take your medications as prescribed Return if you develop worsening or changing chest pain, shortness of breath, lightheadedness, fever, leg swelling, nausea or vomiting, abdominal painSelect [facility] Work [facility]: Hospital Discharge instructions Additional Instructions If your symptoms return/worsen or you develop any further concerns or symptoms please see your doctor or return to the emergency department immediately.[facility] Work Phone: Hospital Discharge instructions Additional Instructions Tylenol every 4 hours Continue current meds Follow-up Dr. [facility] Discharge instructions Additional Instructions Follow-up family health services not improved return symptoms are worse Ibuprofen every 6 hours as needed for painSelect [facility] Hospital Discharge instructions Additional Instructions Increase your intake of fluids. Take Naprosyn as prescribed for pain.[facility] Work Phone: Hospital Discharge instructions Additional Instructions Your blood pressure is fine after treatment for your anxiety. When you get anxious it only makes your blood pressure go up more. Take your medications as prescribed and follow up with your doctor.[facility] Work Phone: Hospital Discharge instructions Additional Instructions [facility] Additional Instructions Tylenol every 4 hours as needed for painSelect [facility] Discharge instructions Additional Instructions Take Naprosyn as prescribed for any recurrent cephalgia. Take meclizine as prescribed for dizziness. Follow-up with the neurologist listed below for any persistent dizziness. Follow-up with your PCP within 3 to 5 days regarding your chest pain.[facility] Work Phone: Hospital Discharge instructions Additional Instructions As we discussed, this cause for your symptoms is not entirely clear. It could be all muscle injury in your thigh, but it is more consistent with a possible impinged nerve in your back, possibly from a herniated disc. You do need to follow-up with your primary care doctor. You may need to have more testing done such as an MRI. If you do have any worsening problems, pain that is intractable, or weakness in your leg, come back so we can see you.[facility] Work Phone: Hospital Discharge instructions Additional Instructions Omeprazole dose will be increased for 1 month. You may then go back to the 20 mg daily.[facility] Work Phone: Hospital Discharge instructions Additional Instructions Continue ibuprofen Return if symptoms are worseSelect [facility] Discharge instructions Additional Instructions Clindamycin as prescribed for dental infection. Take the probiotic with this. Use the estradiol cream to help with your atrophic vaginitis. Follow-up with Dr. Hughes for ongoing management. Follow-up with your oral surgeon for definitive management of your dental infection.[facility] Work Phone: Hospital Discharge instructions Additional Instructions Your blood pressure is fine now. Take your blood pressure medication as prescribed. Check your blood pressure once or twice daily and record the numbers. Follow-up with your doctor in the next 1 to 2 weeks. You may need to have your blood pressure medicine adjusted. If you are taking decongestant medication such as Zyrtec-D, you need to stop this. This will increase your blood pressure. You may use Zyrtec without Sudafed but Sudafed will make your blood pressure rise.[facility] Work Phone: Hospital Discharge instructions Additional Instructions Continue resting Increase oral fluids Continue the medications you are taking Follow-up with your family doctor regarding your blood pressure once your COVID symptoms have resolved Return to the ER for vomiting severe chest pain shortness of breath or any other concernsSelect [facility] Work Phone: Hospital Discharge instructions Additional Instructions As we discussed, you need to follow-up with your doctor. Your blood pressure has been high at night frequently. You probably need to have your blood pressure medication adjusted. [facility] Work Phone: Hospital Discharge instructions Additional Instructions Take clindamycin as prescribed for your dental infection. Follow-up with one of the dentists listed for ongoing management. He can take oxycodone as prescribed for severe pain and Motrin and Tylenol as needed for mild to moderate pain.[facility] Work Phone: Hospital Discharge instructions Additional Instructions It is very important that you follow-up with the dentist as soon as you can. [facility] Work Phone: Hospital Discharge instructions Additional Instructions Follow-up with your primary care doctor Return to ED if develop worsening symptoms or concernsSelect [facility]: Hospital Discharge instructions Additional Instructions Tylenol every 4 hours as needed for pain Continue current meds Return if symptoms are worseSelect [facility] Discharge instructions No data available for this section [facility] Additional Instructions Take clindamycin as prescribed for your dental infection and pain. You can apply a sensitive toothpaste over top of the teeth to help with sensitivity. Motrin Tylenol as needed for pain. Follow-up with a dentist for definitive care.[facility] Work Phone: Hospital Discharge instructions Additional Instructions Tests were negative for strep throat, COVID, RSV, and flu. Your blood pressure has come down. Follow up with your doctor.[facility] Work Phone: Hospital Discharge instructions Additional Instructions Follow-up with your family physician regarding ongoing monitoring of blood pressure.[facility] Work Phone: Hospital Discharge instructions Additional Instructions Take Naprosyn as prescribed for mild to moderate pain. Take oxycodone as prescribed for severe pain. Take Zofran as prescribed for any nausea take ciprofloxacin as prescribed for the kidney infection. Increase your intake of fluids and rest. Follow-up with the PCP for recheck in the next 3 to 5 days.[facility] Work Phone: hospital Discharge instructions Additional Instructions I sent the thyroid tests so you can follow up with your doctor. Your symptoms are also consistent with hot flashes related to menopause. This can be treated with estrogen replacement therapy. In women your age, estrogen replacement can help a great deal with menopausal symptoms like hot flashes. This is something else that you can discuss with your doctor.[facility] Work Phone: Hospital Discharge instructions Additional Instructions Continue current [facility] Work Phone: Hospital Discharge instructions Additional Instructions Your labs were normal tonight. There is no sign of any dangerous problem. Follow up with your doctor.[facility] Work Phone: Hospital Discharge instructions Additional Instructions You were seen today for dental pain. You have an abscess. You received first dose of antibiotics while you are here. I have sent antibiotics to your pharmacy. Please take antibiotics as prescribed. You need to be seen by dentist. He can continue using Tylenol and Motrin for pain. You can also use Orajel. Please return to the emergency department if you are have worsening swelling, difficulty breathing, difficulty swallowing, voice changes, or any other concerning symptoms.[facility] Work Phone: Hospital Discharge instructions Additional Instructions Follow up with your primary care doctor Return to the ED if you develop worsening symptoms or concernsSelect [facility] Work Phone: hospital Discharge instructions Additional Instructions Your strep test was negative. Rest and make sure you are getting enough fluids. [facility] Work Phone: hospital Discharge instructions Additional Instructions All of your tests were normal. There is no evidence of anything dangerous. I will prescribe pain and nausea medicine, and a note for work tomorrow if you need it.[facility] Work Phone: Hospital Discharge instructions Additional Instructions Get some rest this weekend. Follow-up with your doctor. We are happy to see you if there are any problems. We talked about 2 antibiotics but I am only going to put you on 1 because of your allergies. Levaquin is strong enough that you do not need two antibiotics.[facility] Work Phone: hospital Discharge instructions Additional Instructions All of your tests are normal. There is no sign of a dangerous problem. Follow-up with your doctor.[facility] Work Phone: hospital Discharge instructions Additional Instructions The test did not show an obvious UTI. They did not see a stone in your ureter, but there was a little bit of blood in your urine. You may have passed a small stone. I am going to put you on antibiotics because of your symptoms. I will also prescribe some medicine for pain. If you have any worsening issues or other concerns, please come back.[facility] Work Phone: Hospital Discharge instructions Additional Instructions Your tests were all normal. There is no sign of a specific problem. Your symptoms may be due to hemorrhoids or to another issue. Follow-up with your doctor. If you have not had a colonoscopy, one may be required.[facility] Work Phone: hospital Discharge instructions Additional Instructions If your symptoms return/worsen or you develop any further concerns or symptoms please see your doctor or return to the emergency department immediately. It is imperative that you go over today's visit and all results with your primary care provider.[facility] Work Phone: Hospital Discharge instructions Additional Instructions There is no ureteral stone or evidence of UTI tonight. Please follow-up with your doctor.[facility] Work Phone: Hospital Discharge instructions Additional Instructions There is no sign of UTI or kidney stone tonight. Follow-up with your doctor. [facility] Work Phone: Progress note No data available for this section [facility] HealthcareReason for referral (narrative)No reason for referral information availableOhiohealth [facility] Work Phone: Chief Complaint and Reason for Visit Chief Complaint L flank pain Headache,Cold Sweats,Chest Pain trouble breathing headache/chest pain dizzy nausea Ear Pain Dizzy, Lightheaded Chest pain,BP high Chief Complaint L flank pain Headache,Cold Sweats,Chest Pain trouble breathing headache/chest pain dizzy nausea Ear Pain Dizzy, Lightheaded Chest pain,BP high tooth pain Chief Complaint L flank pain Headache,Cold Sweats,Chest Pain trouble breathing headache/chest pain dizzy nausea Ear Pain Dizzy, Lightheaded Chest pain,BP high tooth pain lt side of face swollen Chief Complaint L flank pain Headache,Cold Sweats,Chest Pain trouble breathing headache/chest pain dizzy nausea Ear Pain Dizzy, Lightheaded Chest pain,BP high tooth pain lt side of face swollen Facial swelling, Abscess Chief Complaint Headache,Cold Sweats ,Chest Pain trouble breathing headache/chest pain dizzy nausea Ear Pain Dizzy, Lightheaded Chest pain,BP high tooth pain lt side of face swollen Facial swelling, Abscess Nausea Chief Complaint Headache,Cold Sweats ,Chest Pain trouble breathing headache/chest pain dizzy nausea Ear Pain Dizzy, Lightheaded Chest pain,BP high tooth pain lt side of face swollen Facial swelling, Abscess Nausea Chest Pain Chief Complaint Headache,Cold Sweats ,Chest Pain trouble breathing headache/chest pain dizzy nausea Ear Pain Dizzy, Lightheaded Chest pain,BP high tooth pain lt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 Role Status Dates Services [facility] Primary Care Provider Active Rebecca Navas NP-C Attending Provider Active Team Status: Inactive Member Role Status Dates Services [facility] Primary Care Provider Active Drew Ba DO Emergency Provider Active Mary White DO RES Active Team Status: Active Member Role Status Dates Services [facility] Primary Care Provider Active Denver Hess DO Emergency Provider Active Joshua Ram MD Admit Provider, Attending Provider Active Team Status: Inactive Member Role Status Dates Services [facility] Primary Care Provider Active Denver Hess DO Emergency Provider Active Joshua Ram MD Admit Provider, Attending Provider Active Team Status: Inactive Member Role Status Dates Services [facility] Primary Care Provider Active Rebecca Navas NP-Gabriel Attending Provider Active Team Status: Inactive Member Role Status Dates Services [facility] Primary Care Provider Active Giovanna Deng MD RES Active John Cortes Jr, MD Emergency Provider Active Team Status: Inactive Member Role Status Dates Services [facility] Primary Care Provider Active John Cortes Jr, MD Emergency Provider Active Jacqui Saavedra MD RES Active Team Status: Inactive Member Role Status Dates Services [facility] Primary Care Provider Active John Cortes Jr, MD Emergency Provider Active Roberto Wynn MD RES Active Team Status: Inactive Member Role Status Dates Services [facility] Primary Care Provider Active Dorcas Castaneda [facility]- Emergency Provider Active Team Status: Inactive Member Role Status Dates Services [facility] Primary Care Provider Active Dominik Hall DO Emergency Provider Active Team Status: Inactive Member Role Status Dates Services [facility] Primary Care Provider Active Drew Ba DO Emergency Provider Active Grace Amaya DO RES Active Team Status: Inactive Member Role Status Dates Services [facility] Primary Care Provider Active Grace Amaya DO RES Active John Cortes Jr, MD Emergency Provider Active Team Status: Inactive Member Role Status Dates Services [facility] Primary Care Provider Active Start: March 03, 2023 End: March 04, 2023 John Cortes Jr, MD Emergency Provider Active Start: March 03, 2023 End: March 04, 2023 Team Status: Inactive Member Role Status Dates Services [facility] Primary Care Provider Active Start: March 06, 2023 End: March 06, 2023 Dominik Hall DO Emergency Provider Active Sta rt: March 06, 2023 End: March 06, 2023 Team Status: Inactive Member Role Status Dates Services [facility] Primary Care Provider Active Start: March 17, 2023 End: March 18, 2023 Drew Ba DO Emergency Provider Active Sta rt: March 17, 2023 End: March 18, 2023 Team Status: Inactive Member Role Status [facility] Primary Care Provider Active Start: March 24, 2023 End: March 25, 2023 Shorty Marinelli MD Emergency Provider Active Star t: March 24, 2023 End: March 25, 2023 Team Status: Inactive Member Role Status [facility] Primary Care Provider Active Start: March 31, 2023 End: March 31, 2023 John Cortes Jr, MD Emergency Provider Active Start: March 31, 2023 End: March 31, 2023 Team Status: Inactive Member Role Status [facility] Primary Care Provider Active Start: April 04, 2023 End: April 04, 2023 Denver Hess DO Emergency Provider Active St art: April 04, 2023 End: April 04, 2023 Team Status: Inactive Member Role Status [facility] Primary Care Provider Active Start: April 06, 2023 End: April 07, 2023 Drew Ba DO Emergency Provider Active Sta rt: April 06, 2023 End: April 07, 2023 Grace Amaya DO RES Active Start : April 06, 2023 End: April 07, 2023 Team Status: Inactive Member Role Status [facility] Primary Care Provider Active Start: April 11, 2023 End: April 11, 2023 Grace Amaya DO RES Active Start : April 11, 2023 End: April 11, 2023 John Cortes Jr, MD Emergency Provider Active Start: April 11, 2023 End: April 11, 2023 Team Status: Inactive Member Role Status [facility] Primary Care Provider Active Start: May 11, 2023 End: May 11, 2023 Dustin Dorsey DO Emergency Provider Active Start: May 11, 2023 End: May 11, 2023 Team Status: Inactive Member Role Status [facility] Primary Care Provider Active Start: May 20, 2023 End: May 21, 2023 Mary White DO RES Active Star t: May 20, 2023 End: May 21, 2023 Dustin Dorsey DO Emergency Provider Active Start: May 20, 2023 End: May 21, 2023 Team Status: Inactive Member Role Status [facility] Primary Care Provider Active Start: May 22, 2023 End: May 23, 2023 Dustin Dorsey DO Emergency Provider Active Start: May 22, 2023 End: May 23, 2023 Team Status: Inactive Member Role Status [facility] Primary Care Provider Active Start: June 03, 2023 End: June 03, 2023 Dustin Dorsey DO Emergency Provider Active Start: June 03, 2023 End: June 03, 2023 Team Status: Inactive Member Role Status [facility] Primary Care Provider Active Start: June 15, 2023 End: June 15, 2023 Severo Aponte DO Emergency Provider Active Start: June 15, 2023 End: June 15, 2023 Team Status: Inactive Member Role Status [facility] Primary Care Provider Active Start: June 17, 2023 End: June 17, 2023 John Cortes Jr, MD Emergency Provider Active Start: June 17, 2023 End: June 17, 2023 Team Status: Inactive Member Role Status [facility] Primary Care Provider Active Start: June 19, 2023 End: June 19, 2023 Dustin Dorsey DO Emergency Provider Active Start: June 19, 2023 End: June 19, 2023 Team Status: Inactive Member Role Status [facility] Primary Care Provider Active Start: July 13, 2023 End: July 13, 2023 Dominik Hall DO Emergency Provider Active Sta rt: July 13, 2023 End: July 13, 2023 Team Status: Inactive Member Role Status [facility] Primary Care Provider Active Start: July 29, 2023 End: July 29, 2023 John Cortes Jr, MD Emergency Provider Active Start: July 29, 2023 End: July 29, 2023 Team Status: Inactive Member Role Status [facility] Primary Care Provider Active Start: August 06, 2023 End: August 06, 2023 Dustin Dorsey DO Emergency Provider Active Start: August 06, 2023 End: August 06, 2023 Team Status: Inactive Member Role Status [facility] Primary Care Provider Active Start: September 14, 2023 End: September 14, 2023 Drew Ba DO Emergency Provider Active Sta rt: September 14, 2023 End: September 14, 2023 Team Status: Inactive Member Role Status [facility] Primary Care Provider Active Start: September 19, 2023 End: September 19, 2023 John Cortes Jr, MD Emergency Provider Active Start: September 19, 2023 End: September 19, 2023 Team Status: Inactive Member Role Status [facility] Primary Care Provider Active Start: September 21, 2023 End: September 21, 2023 John Cortes Jr, MD Emergency Provider Active Start: September 21, 2023 End: September 21, 2023 Team Status: Inactive Member Role Status [facility] Primary Care Provider Active Start: September 29, 2023 End: September 29, 2023 John Cortes Jr, MD Emergency Provider Active Start: September 29, 2023 End: September 29, 2023 Team Status: Inactive Member Role Status [facility] Primary Care Provider Active Start: October 03, 2023 End: October 03, 2023 Denver Hess DO Emergency Provider Active St art: October 03, 2023 End: October 03, 2023 Team Status: Inactive Member Role Status [facility] Primary Care Provider Active Start: November 05, 2023 End: November 05, 2023 Dustin Dorsey DO Emergency Provider Active Start: November 05, 2023 End: November 05, 2023 Team Status: Inactive Member Role Status [facility] Primary Care Provider Active Start: November 10, 2023 End: November 11, 2023 John Cortes Jr, MD Emergency Provider Active Start: November 10, 2023 End: November 11, 2023 Team Status: Inactive Member Role Status [facility] Primary Care Provider Active Start: November 17, 2023 End: November 17, 2023 Denver Hess DO Emergency Provider Active St art: November 17, 2023 End: November 17, 2023 Team Status: Inactive Member Role Status [facility] Primary Care Provider Active Start: November 24, 2023 End: November 25, 2023 Shorty Marinelli MD Emergency Provider Active Star t: November 24, 2023 End: November 25, 2023 Team Status: Inactive Member Role Status [facility] Primary Care Provider Active Start: November 29, 2023 End: November 29, 2023 Denver Hess DO Emergency Provider Active St art: November 29, 2023 End: November 29, 2023 Team Status: Inactive Member Role Status [facility] Primary Care Provider Active Start: December 05, 2023 End: December 05, 2023 John Cortes Jr, MD Emergency Provider Active Start: December 05, 2023 End: December 05, 2023 Team Status: Inactive Member Role Status [facility] Primary Care Provider Active Start: December 11, 2023 End: December 11, 2023 Basilio Sarabia DO RES Active Start: December 11, 2023 End: December 11, 2023 John Cortes Jr, MD Emergency Provider Active Start: December 11, 2023 End: December 11, 2023 Team Status: Active Member Role Status [facility] Primary Care Provider Active Start: November 29, 2023 Jhonatan Billings DO Attending Provider Active Sta rt: November 29, 2023 Team Status: Inactive Member Role Status [facility] Primary Care Provider Active Start: December 14, 2023 End: December 14, 2023 Pamela Christensen DO Emergency Provider Active Start: December 14, 2023 End: December 14, 2023 Team Status: Inactive Member Role Status [facility] Primary Care Provider Active Start: December 16, 2023 End: December 16, 2023 Dominik Hall DO Emergency Provider Active Sta rt: December 16, 2023 End: December 16, 2023 Team Status: Inactive Member Role Status [facility] Primary Care Provider Active Start: January 04, 2024 End: January 04, 2024 John Cortes Jr, MD Emergency Provider Active Start: January 04, 2024 End: January 04, 2024 Team Status: Inactive Member Role Status [facility] Primary Care Provider Active Start: January 27, 2024 End: January 27, 2024 Rebecca Marmolejo MD Emergency Provider Active Start: January 27, 2024 End: January 27, 2024 Team Status: Inactive Member Role Status [facility] Primary Care Provider Active Start: February 10, 2024 End: February 10, 2024 Enrique Salcedo DO RES Active Sta rt: February 10, 2024 End: February 10, 2024 John Cortes Jr, MD Emergency Provider Active Start: February 10, 2024 End: February 10, 2024 Team Status: Inactive Member Role Status [facility] Primary Care Provider Active Start: February 14, 2024 End: February 15, 2024 Enrique Salcedo DO RES Active Sta rt: February 14, 2024 End: February 15, 2024 Meg Dang MD Emergency Provider Active St art: February 14, 2024 End: February 15, 2024 Team Status: Inactive Member Role Status [facility] Primary Care Provider Active Start: February 20, 2024 End: February 20, 2024 John Cortes Jr, MD Emergency Provider Active Start: February 20, 2024 End: February 20, 2024 Team Status: Inactive Member Role Status [facility] Primary Care Provider Active Start: February 29, 2024 End: February 29, 2024 Drew URRUTIA DO Attending Provider Active S tart: February 29, 2024 End: February 29, 2024 Mary White DO RES Referring Provider Active Start: February 29, 2024 End: February 29, 2024 Team Status: Inactive Member Role Status [facility] Primary Care Provider Active Start: May 08, 2024 End: May 08, 2024 John Cortes Jr, MD Emergency Provider Active Start: May 08, 2024 End: May 08, 2024 Team Status: Inactive Member Role Status [facility] Primary Care Provider Active Start: May 10, 2024 End: May 10, 2024 Drew Ba DO Emergency Provider Active Sta rt: May 10, 2024 End: May 10, 2024 Team Status: Inactive Member Role Status [facility] Primary Care Provider Active Start: May 13, 2024 End: May 13, 2024 Yayo Dahl PA-C Emergency Provider Active Start: May 13, 2024 End: May 13, 2024 Team Status: Inactive Member Role Status [facility] Primary Care Provider Active Start: June 10, 2024 End: June 10, 2024 Drew Ba DO Emergency Provider Active Sta rt: June 10, 2024 End: June 10, 2024 Team Status: Inactive Member Role Status [facility] Primary Care Provider Active Start: June 15, 2024 End: June 15, 2024 John Cortes Jr, MD Emergency Provider Active Start: June 15, 2024 End: June 15, 2024 Team Status: Inactive Member Role Status [facility] Primary Care Provider Active Start: June 19, 2024 End: June 19, 2024 Denver Hess DO Emergency Provider Active St art: June 19, 2024 End: June 19, 2024 Team Status: Inactive Member Role Status [facility] Primary Care Provider Active Start: August 21, 2024 End: August 21, 2024 Denver Hess DO Emergency Provider Active St art: August 21, 2024 End: August 21, 2024 Team Status: Inactive Member Role Status [facility] Primary Care Provider Active Start: September 01, 2024 End: September 01, 2024 Dustin Dorsey DO Emergency Provider Active Start: September 01, 2024 End: September 01, 2024 Team Status: Inactive Member Role Status [facility] Primary Care Provider Active Start: September 21, 2024 End: September 21, 2024 Denver Hess DO Emergency Provider Active St art: September 21, 2024 End: September 21, 2024 Team Status: Inactive Member Role Status [facility] Primary Care Provider Active Start: October 07, 2024 End: October 07, 2024 John Cortes Jr, MD Emergency Provider Active Start: October 07, 2024 End: October 07, 2024 Team Status: Inactive Member Role Status [facility] Primary Care Provider Active Start: October 29, 2024 End: October 29, 2024 Denver Hess DO Emergency Provider Active St art: October 29, 2024 End: October 29, 2024 Team Status: Inactive Member Role Status [facility] Primary Care Provider Active Start: November 02, 2024 End: November 03, 2024 John Cortes Jr, MD Emergency Provider Active Start: November 02, 2024 End: November 03, 2024 Team Status: Inactive Member Role Status [facility] Primary Care Provider Active Start: November 12, 2024 End: November 12, 2024 Denver Hess DO Emergency Provider Active St art: November 12, 2024 End: November 12, 2024 Team Status: Inactive Member Role Status [facility] Primary Care Provider Active Start: November 15, 2024 End: November 15, 2024 Severo Aponte DO Emergency Provider Active Start: November 15, 2024 End: November 15, 2024 Team Status: Inactive Member Role Status [facility] Primary Care Provider Active Start: November 23, 2024 End: November 23, 2024 Denver Hess DO Emergency Provider Active St art: November 23, 2024 End: November 23, 2024 Team Status: Inactive Member Role Status [facility] Primary Care Provider Active Start: December 01, 2024 End: December 01, 2024 Rebecca Marmolejo MD Emergency Provider Active Start: December 01, 2024 End: December 01, 2024 Team Status: Inactive Member Role Status Dates Baljinder Buck DO Attending Provider Active Start: December 01, 2024 End: December 01, 2024 Team Status: Inactive Member Role Status [facility] Primary Care Provider Active Start: December 04, 2024 End: December 04, 2024 John Cortes Jr, MD Emergency Provider Active Start: December 04, 2024 End: December 04, 2024 Team Status: Inactive Member Role Status [facility] Primary Care Provider Active Start: December 14, 2024 End: December 15, 2024 John Cortes Jr, MD Emergency Provider Active Start: December 14, 2024 End: December 15, 2024 Goals (unrecognized section and content) Goals may be documented in a n alternate sectionGoals may be documented in an alternate sectionGoals may be documented in an alternate sectionGoals may be documented in an alternate section No data available for this sectionGoals may be documented in an alternate section No data available for this sectionGoals may be documented in an alternate sectionGoals may be documented in an alternate sectionGoals may be documented in an alternate sectionGoals may be documented in an alternate section No data available for this sectionGoals may be documented in an alternate section No data available for this sectionGoals may be documented in an alternate sectionGoals may be documented in an alternate sectionGoals may be documented in an alternate sectionGoals may be documented in an alternate sectionGoals may be documented in an alternate sectionGoals may be documented in an alternate sectionGoals may be documented in an alternate sectionGoals may be documented in an alternate sectionGoals may be documented in an alternate sectionGoals may be documented in an alternate sectionGoals may be documented in an alternate sectionGoals may be documented in an alternate sectionGoals may be documented in an alternate sectionGoals may be documented in an alternate sectionGoals may be documented in an alternate sectionGoals may be documented in an alternate sectionGoals may be documented in an alternate section No data available for this sectionGoals may be documented in an alternate sectionGoals may be documented in an alternate sectionGoals may be documented in an alternate sectionGoals may be documented in an alternate sectionGoals may be documented in an alternate section No data available for this sectionGoals may be documented in an alternate sectionGoals may be documented in an alternate sectionGoals may be documented in an alternate sectionGoals may be documented in an alternate sectionGoals may be documented in an alternate sectionGoals may be documented in an alternate sectionGoals may be documented in an alternate sectionGoals may be documented in an alternate section No data available for this sectionGoals may be documented in an alternate sectionGoals may be documented in an alternate sectionGoals may be documented in an alternate sectionGoals may be documented in an alternate sectionGoals may be documented in an alternate section No data available for this section No data available for this sectionGoals may be documented in an alternate sectionGoals may be documented in an alternate section No data available for this sectionGoals may be documented in an alternate sectionGoals may be documented in an alternate sectionGoals may be documented in an alternate sectionGoals may be documented in an alternate sectionGoals may be documented in an alternate sectionGoals may be documented in an alternate sectionGoals may be documented in an alternate sectionGoals may be documented in an alternate sectionGoals may be documented in an alternate sectionGoals may be documented in an alternate sectionGoals may be documented in an alternate sectionGoals may be documented in an alternate sectionGoals may be documented in an alternate sectionGoals may be documented in an alternate section No data available for this sectionGoals may be documented in an alternate sectionGoals may be documented in an alternate sectionGoals may be documented in an alternate section No data available for this section No data available for this sectionGoals may be documented in an alternate sectionGoals may be documented in an alternate section No data available for this sectionGoals may be documented in an alternate section No data available for this sectionGoals may be documented in an alternate sectionGoals may be documented in an alternate sectionGoals may be documented in an alternate sectionGoals may be documented in an alternate section No data available for this sectionGoals may be documented in an alternate sectionGoals may be documented in an alternate sectionGoals may be documented in an alternate sectionGoals may be documented in an alternate section No data available for this sectionGoals may be documented in an alternate sectionGoals may be documented in an alternate sectionGoals may be documented in an alternate sectionGoals may be documented in an alternate sectionGoals may be documented in an alternate sectionGoals may be documented in an alternate sectionGoals may be documented in an alternate sectionGoals may be documented in an alternate sectionGoals may be documented in an alternate sectionGoals may be documented in an alternate sectionGoals may be documented in an alternate sectionGoals may be documented in an alternate sectionGoals may be documented in an alternate sectionGoals may be documented in an alternate sectionGoals may be documented in an alternate sectionGoals may be documented in an alternate sectionGoals may be documented in an alternate sectionGoals may be documented in an alternate section INFORMATION SOURCE (unrecogn ized section and content) DATE CREATED AUTHOR 06/07/2022 [facility] DATE CREATED AUTHOR AUTHOR'S ORGANIZ ATION 08/13/2022 [facility] DATE CREATED AUTHOR AUTHOR'S ORGANIZ ATION 10/06/2023 [facility] DATE CREATED AUTHOR AUTHOR'S ORGANIZ ATION 11/18/2023 [facility] DATE CREATED AUTHOR AUTHOR'S ORGANIZ ATION 11/20/2023 [facility] DATE CREATED AUTHOR AUTHOR'S ORGANIZ ATION 11/29/2023 [facility] DATE CREATED AUTHOR AUTHOR'S ORGANIZ ATION 12/01/2023 [facility] DATE CREATED AUTHOR AUTHOR'S ORGANIZ ATION 12/09/2023 [facility] DATE CREATED AUTHOR AUTHOR'S ORGANIZ ATION 12/21/2023 [facility] DATE CREATED AUTHOR AUTHOR'S ORGANIZ ATION 01/23/2024 [facility] DATE CREATED AUTHOR AUTHOR'S ORGANIZ ATION [facility]21/2024 [facility] FOR RECORDS PERTAINING TO PATIENTS WHO ARE OR HAVE BEEN ENROLLED IN A CHEMICAL DEPENDENCY/SUBSTANCEABUSE PROGRAM, SOME INFORMATION MAY BE OMITTED. This clinical summary was aggregated from multiple sources. Caution should be exercised in using it in the provision of clinical care. This summary normalizes information from multiple sources, and as a consequence, information in this document may materially change the coding, format and clinical context of patient data. In addition, data may be omitted in some cases. CLINICAL DECISIONS SHOULD BE BASED ON THE PRIMARY CLINICAL RECORDS. [facility] [employer] [facility]. provides no warranty or guarantee of the accuracy or completeness of information in this document.
--- NOTE | 2024-12-25 03:12 | ED.GENADUL1 ---
HPI HPI - General Adult General Chief complaint: Dental/Oral Stated complaint: TOOTH PAIN, SORE THROAT Time Seen by Provider: 12/25/24 03:09 Source: patient Mode of arrival: walk-in Limitations: no limitations History of Present Illness HPI narrative: dental pain, sore throat and ear pain for a couple of days. No fever or nausea. Feels tired. No headache Related Data Home Medications ?Medication ?Instructions ?Recorded ?Confirmed lisinopril 40 mg tablet 40 mg PO DAILY 11/29/23 12/25/24 atorvastatin 20 mg tablet 20 mg PO DAILY 06/19/24 12/25/24 omeprazole 20 mg capsule,delayed 20 mg PO DAILY 11/18/24 12/25/24 release Previous Rx's ?Medication ?Instructions ?Recorded ondansetron 4 mg disintegrating 4 mg PO Q6H PRN nausea and 11/18/24 tablet vomiting #20 tabs ondansetron 4 mg disintegrating 4 mg PO Q6H PRN nausea and 12/01/24 tablet vomiting #20 tabs tamsulosin 0.4 mg capsule (Flomax) 0.4 mg PO DAILY #20 caps 12/01/24 Allergies Allergy/AdvReac Type Severity Reaction Status Date / Time codeine (From Allergy Mild Rash Verified 12/25/24 02:53 Tylenol-Codeine) morphine Allergy Mild rash Verified 12/25/24 02:53 Penicillins Allergy Mild Rash Verified 12/25/24 02:53 cefdinir Allergy Unknown Rash Verified 12/25/24 02:53 Opioid HPI Opioid Management Most Recent Opioid Data: Last Pain Scale 10 Today, 02:46 Review of Systems ROS Status of ROS 10 or more systems reviewed and unremarkable except as noted in history and below PFSH PFS Social History Smoking status: Never smoker Little interest or pleasure in doing things: not at all Feeling down, depressed, or hopeless: not at all Exam Constitutional Vital Signs, click to edit/add: Last Vital Signs Temp 98.6 F 12/25/24 02:46 Pulse 98 H 12/25/24 02:46 Resp 16 12/25/24 02:46 BP 130/85 12/25/24 02:46 Pulse Ox 97 12/25/24 02:46 O2 Del Method Room Air 12/25/24 02:46 Common normals: no apparent distress, average body habitus, oriented x3, no limitations, healthy appearing, alert and well nourished [facility] Common normals: normocephalic and head/scalp atraumatic Other: right TM bulging right lower molar abscess tooth Eye Common normals: EOMs intact bilaterally and conjunctivae normal Respiratory Common normals: normal respiratory effort, no retractions, no use of accessory muscles and clear to auscultation bilaterally Cardio Common normals: regular rate, regular rhythm, S1 normal heart sound and S2 normal heart sound Extremity Common normals: normal to inspection and full ROM Neuro Common normals: oriented x3, CN's II-XII intact bilaterally, moves all extremities and no focal motor deficits Psych Appearance: grossly normal Course Vital Signs Vital signs: Vital Signs Temperature 98.6 F 12/25/24 02:46 Pulse Rate 98 H 12/25/24 02:46 Respiratory Rate 16 12/25/24 02:46 Blood Pressure 130/85 12/25/24 02:46 Pulse Oximetry 97 12/25/24 02:46 Oxygen Delivery Method Room Air 12/25/24 02:46 Temperature 98.6 F 12/25/24 02:46 Pulse Rate 98 H 12/25/24 02:46 Respiratory Rate 16 12/25/24 02:46 Blood Pressure 130/85 12/25/24 02:46 Pulse Oximetry 97 12/25/24 02:46 Oxygen Delivery Method Room Air 12/25/24 02:46 Medical Decision Making MDM Narrative Medical decision making narrative: presents with dental pain and ear pain .Found to have early dental abscess without swelling and bulging right TM. given dose of clindamycin and discharged home Lab Data Labs: Lab Results 12/25/24 Range/Units 02:55 Streptococcus Screen Negative Discharge Plan Discharge Chief Complaint: Dental/Oral Clinical Impression: Dental abscess, Acute right otitis media Patient Disposition: Home, Self-Care Condition: Good Mode of Transportation: Private Vehicle Prescriptions / Home Meds: No Action atorvastatin 20 mg tablet 20 mg PO DAILY tamsulosin [Flomax] 0.4 mg capsule 0.4 mg PO DAILY Qty: 20 0RF ondansetron 4 mg tablet,disintegrating 4 mg PO Q6H PRN (Reason: nausea and vomiting) Qty: 20 0RF lisinopril 40 mg tablet 40 mg PO DAILY omeprazole 20 mg capsule,delayed release(DR/EC) 20 mg PO DAILY ondansetron 4 mg tablet,disintegrating 4 mg PO Q6H PRN (Reason: nausea and vomiting) Qty: 20 0RF Print Language: Mohawk Instructions: Dental Abscess (ED), Ear Infection (ED) Additional Instructions: follow up with your dentist next week Referrals: [facility] [Primary Care Provider] - 1 week Discharge Date/Time: 12/25/24 03:51
[2024-12-25] MEDS: CLINDAMYCIN HCL 150 MG CAPSULE 300 MG PO (03:25)
[2024-12-25] MEDS: BENZOCAINE 30 ML, lidocaine HCL 15 ML MM (03:46)
== END 2024-12-25 03:51 | disposition home or self-care (01) ==
PROVIDERS: Emergency Provider Internal Medicine
DX: K04.7 Periapical abscess without sinus (principal); H66.91 Otitis media, unspecified, right ear
CPT/HCPCS: 87070; 87880; 99283

== ENCOUNTER 2025-02-12 00:48 | Emergency (ER) | payer OTHER, SELFPAY ==
--- OUTSIDE RECORDS SUMMARY | 2023-11-13 10:15 | XMS_ITS ---
Author Organization [facility] Address [address] [place] [address] Care Team Providers Care Typecasting Machine Operator Name Role Phone Allyn Rosales Primary Care Provider [phone] REASON FOR VISIT HIGH BP Encounters Encounter Location Date Provider Diagnosis [facility] [address] [place] [address] 11/13/2023 Allyn Rosales Plan Of Treatment No Information Progress Notes * GIOVANNA STREETER ADOB: [birth year] (49 yo F)Acc No.[id number]:11/13/2023 PROGRESS NOTES Patient: Jeny SANDS GIOVANNA Stoll Account Number:[id number]:?ALLYN BIRCH DODOB:1975???Age:48 Y???Sex: FemaleDate:11/13/2023hone:[phone]:[address] [facility] Subjective: * Chief Complaints: * H IGH BP Billing Information: * Procedure Codes: * Electronic signature of Allyn Rosales DO on 02/12/2025 at 01:07 AM ESTSign off status: Pending * Provider: Devin BIRCH DO Date: 0 11/13/2023 Generated for Printing/Faxing/eTransmitting on:?02/12/2025 01:07 AM EST
--- OUTSIDE RECORDS SUMMARY | 2023-11-26 10:15 | XMS_ITS ---
Author Organization [facility] Address [address] [place] [address] Care Team Providers Care Atmospheric Drier Tender Name Role Phone Allyn Rosales Primary Care Provider [phone] REASON FOR VISIT BP Encounters Encounter Location Date Provider Diagnosis [facility] [address] [facility] [place] [address] 11/26/2023 Allyn Rosales Plan Of Treatment No Information Progress Notes * GIOVANNA STREETER ADOB: [birth year] (49 yo F)Acc No.[id number]:11/26/2023 Progress Notes Patient: Jeny SANDS GIOVANNA Stoll Account Number:[id number]:?ALLYN BIRCH, DODOB:1975???Age:48 Y???Sex: FemaleDate:11/26/2023hone:[phone]:[address] [facility] Subjective: * Chief Complaints: * B P Billing Information: * Procedure Codes: * Electronic signature of Allyn Rosales DO on 02/12/2025 at 01:07 AM ESTSign off status: Pending * Provider: Devin BIRCH DO Date: 0 11/26/2023 Generated for Printing/Faxing/eTransmitting on:?02/12/2025 01:07 AM EST
--- OUTSIDE RECORDS SUMMARY | 2024-03-10 09:00 | XMS_ITS ---
Author Organization [facility] Address [address] [facility] [place] [address] Care Team Providers Care Heat Treating Furnace Tender Name Role Phone Allyn Rosales Primary Care Provider [phone] REASON FOR VISIT DISCUSS LABS Encounters Encounter Location Date Provider Diagnosis [facility] [address] [place] [address] 03/10/2024 Allyn Rosales Plan Of Treatment No Information Progress Notes * GIOVANNA STREETER ADOB: [birth year] (49 yo F)Acc No.162DOS:03/10/2024 Progress Notes Patient: Jeny SANDS GIOVANNA Jerman Account Number:[id number]:?ALLYN BIRCH DODOB:1975???Age:48 Y???Sex: FemaleDate:03/10/2024hone:[phone]:[address] [id number] Subjective: * Chief Complaints: * D ISCUSS LABS Billing Information: * Procedure Codes: * Electronic signature of Allyn Rosales DO on 02/12/2025 at 01:08 AM ESTSign off status: Pending * Provider: Devin BIRCH DO Date: 05/11/2023 Generated for Printing/Faxing/eTransmitting on:?02/12/2025 01:08 AM EST
--- OUTSIDE RECORDS SUMMARY | 2025-02-04 22:56 | XMS_ITS | Continuity of Care Document ---
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 Role Phone [facility] Primary Care Provider Denver Hess DO Emergency Provider Severo Aponte DO Emergency Provider Rebecca Marmolejo MD Emergency Provider Baljinder Buck DO Attending Provider Jonh Cortes Jr, MD Emergency Provider Mary Spencer DO Emergency Provider Care Teams Patient Care Team Team Status: Active Member Role/Relationship Status [facility] Primary Care Provider Active Visit Care Team Team Status: Inactive Member Role/Relationship Status [facility] Primary Care Provider Active Start: November 12, 2024 End: November 12, 2024Valeria Moreno ProviderActiveStart: November 12, 2024 End: November 12, 2024 Visit Care Team Team Status: Inactive Member Role/Relationship Status [facility] Primary Care Provider Active Start: November 15, 2024 End: November 15Valeria Montalvo ProviderActiveStart: November 15, 2024 End: November 15, 2024 Visit Care Team Team Status: Inactive Member Role/Relationship Status [facility] Primary Care Provider Active Start: November 23, 2024 End: November 23, 2024PaValeria Baum ProviderActiveStart: November 23, 2024 End: November 23, 2024 Visit Care Team Team Status: Inactive Member Role/Relationship Status Dates [facility] Primary Care Provider Active Start: December 01, 2024 End: December 01Chichi Casas ProviderActiveStart: December 01, 2024 End: December 01, 2024 Visit Care Team Team Status: Inactive Member Role/Relationship Status Dates DO Giancarlo Evans Active Start: December 01, 2024 End: December 01, 2024 Visit Care Team Team Status: Inactive Member Role/Relationship Status Dates [facility] Primary Care Provider Active Start: December 04, 2024 End: December 04, 2024ThChichi Quintanilla Jr ProviderActiveStart: December 04, 2024 End: December 04, 2024 Visit Care Team Team Status: Inactive Member Role/Relationship Status Dates [facility] Primary Care Provider Active Start: December 14, 2024 End: December 15Chichi Quintanilla Jr ProviderActiveStart: December 14, 2024 End: December 15, 2024 Visit Care Team Team Status: Inactive Member Role/Relationship Status Dates [facility] Primary Care Provider Active Start: December 30, 2024 End: December 31, 2024ThChichi Quintanilla Jr ProviderActiveStart: December 30, 2024 End: December 31, 2024 Visit Care Team Team Status: Inactive Member Role/Relationship Status Dates [facility] Primary Care Provider Active Start: January 03, 2025 End: January 03, 2025Valeria Walter ProviderActiveStart: January 03, 2025 End: January 03, 2025 Patient Care Team Team Status: Inactive Member Role/Relationship Status Dates [facility] Primary Care Provider Active Start: February 05, 2025 End: February 05Chichi Quintanilla Jr ProviderActiveStart: February 05, 2025 End: February 05, 2025 Chief Complaint and Reason for Visit Chief Complaint Admit Date right side pain November 12, 2024 7: 09am cp,dizziness, numbness in face November 152024 7:41pm cp November 23, 2024 3: 06am cp, headache, sweating December 01 12:52am Unknown December 01, 2024 10:35pm abd/back pain/possible uti November 1:55am rt side abd pain December 14, 2024 9:17pm urogenital/bleeding December 30, 2024 9: 05pm Heavy menstrual bleeding, R sd pain Octo 2024 8:44pm chest pain/headache February 05, 2025 1 :58am Allergies, Adverse Reactions, Alerts Allergen Type Severity Reaction Last Updated Verified Status cefaclor Allergy Unknown Unknown Reaction February 05, 2025 2:01am Yes Active Penicillins Allergy Unknown Hives February 05, 2025 2:01am Yes Active hydromorphone Adverse Reaction Unknown Difficulty Breathing February 05, 2025 2:01am Yes Active morphine Adverse Reaction Unknown Difficulty Breathing February 05, 2025 2:01am Yes Active Social History Smoking Status Status Start Date End Date Date of Observa tion Smokes tobacco daily (finding) February 05, 2025 2:57am Observation Status Observation Response Date of Response Legal Sex Female (finding) Sex Assigned At BirthFemaleMay 1975Pregnancy StatusNNovember 2024N December 30, 2024NSeptember 2024NAugu2024NAugust 2024 Family History Relationship Condition Age at Onset Recorded Date/T mandi mother Type 2 diabetes mellitus Unknown HypertensionUnknownfatherDeceasedUnknown Problems Active Problems Problem Diagnosis/Recorded Date Onset Date Stat us Hypertensive urgency April 30, 2022 1:09am Unknown Active Nonspecific abdominal pain June 28, 2019 12:28am Un known Active Nonspecific abdominal pain February 05, 2021 10:54pm Unknown Active Nonspecific abdominal pain June 18, 2022 12:55am Un known Active Acute left flank pain October 27, 2018 1:23am Unknown Active Acute left flank pain May 18, 2019 6:30am Unkno wn Active Acute left flank pain January 08, 2020 8:23pm Unknown Active Acute right flank pain September 15, 2018 1:18am Unknown Active Acute right flank pain February 27, 2021 11:32am Unk nown Active Acute right flank pain January 16, 2022 4:02am Unkno wn Active Acute rhinosinusitis November 19, 2020 8:32pm Unknown Active Chronic left flank pain July 07, 2017 11:07pm Unknow n Active Abscess of labia majora December 13, 2020 9:53pm Un known Active Acute flank pain March 18, 2020 7:24pm Unknown Active Suprapubic cramping April 08, 2020 4:27am Unknown Active UTI (urinary tract infection) June 25, 2017 3:15am Unknown Active UTI (urinary tract infection) June 25, 2019 11:03pm Unknown Active UTI (urinary tract infection) March 25, 2021 1:17 am Unknown Active Perimenopausal symptoms June 24, 2022 9:17pm Unknow n Active Exposure to 2019-nCoV March 08, 2021 1:17pm Unknow n Active COVID-19 virus infection November 20, 2022 1:48am Unkn own Active COVID-19 April 04, 2021 10:31pm Unknown Ac tive COVID-19 April 07, 2021 9:12pm Unknown Act gregory COVID-19 April 15, 2021 12:12am Unknown A ctive COVID-19 April 17, 2021 11:11am Unknown A ctive COVID-19 November 25, 2022 8:42pm Unknown Act gregory Encounter for medication refill September 21, 2018 6:37pm Unknown Active Recurrent headache January 03, 2020 4:53pm Unknown Active Migraine July 03, 2017 2:15am Unknown Activ e Migraine with aura November 03, 2019 3:47pm Unknown Active Visual floaters January 01, 2017 3:53am Unknown Active Sciatica August 20, 2022 1:45am Unknown Active Lumbar strain March 20, 2022 5:20pm Unknown Active Acute upper respiratory infection February 05, 2019 4 :57pm Unknown Active Acute upper respiratory infection March 02, 2022 1 :06am Unknown Active Sinus congestion April 17, 2021 11:11am Unknown Active Malaise November 27, 2020 1:04am Unknown Act gregory Fatigue December 24, 2018 12:02am Unknown Active Myalgia March 11, 2017 12:49am Unknown Active Palpitations October 05, 2018 6:28pm Unknown Active Palpitations June 28, 2019 12:28am Unknown Act gregory Abdominal cramping April 26, 2019 12:31am Unknown Active Hematuria November 19, 2018 1:14am Unknown Act gregory Hematuria April 02, 2022 4:47am Unknown Act gregory Menorrhagia November 27, 2020 1:04am Unknown Act gregory Menorrhagia February 17, 2021 10:33am Unknown Active Paresthesia June 26, 2020 9:17pm Unknown Acti ve Paresthesias July 02, 2020 5:12pm Unknown Activ e Paresthesias April 22, 2022 11:39pm Unknown A ctive Dizziness December 23, 2016 12:03pm Unknown Active Dizziness October 05, 2018 6:28pm Unknown Active Dizziness March 27, 2019 10:36pm Unknown Active Dizziness January 14, 2021 8:10am Unknown Ac tive Dizziness April 23, 2021 12:10pm Unknown A ctive Dizziness November 25, 2021 2:03am Unknown Act gregory Tension headache April 18, 2020 9:10pm Unknown Active Back strain February 26, 2022 1:50am Unknown A ctive Suicidal ideation June 09, 2022 4:28am Unknown Active Acute viral syndrome January 17, 2019 9:33pm Unknown Active Acute viral syndrome February 05, 2019 4:57pm Unknown Active Acute viral syndrome March 02, 2020 11:51pm Unknow n Active Increased urinary frequency September 07, 2022 3:34am Unkn own Active Diverticulosis April 21, 2019 7:29pm Unknown Active Upper respiratory infection May 01, 2017 3:09pm Unknown Active URI (upper respiratory infection) January 11, 2021 6 :41am Unknown Active Ureteral colic June 25, 2017 3:15am Unknown Ac tive Paresthesia of right foot August 05, 2022 5:04am Unknown Active Hair follicle infection September 10, 2020 5:34am Unknown Active Minor head injury October 24, 2021 11:45pm Unknown Active Anxiety November 09, 2018 10:50pm Unknown Ac tive Anxiety December 22, 2018 2:31am Unknown Active Anxiety July 26, 2019 8:26pm Unknown Acti ve Anxiety November 10, 2019 9:11pm Unknown Act gregory Anxiety April 04, 2022 9:24am Unknown Act gregory Anxiety April 20, 2022 2:18am Unknown Ac tive Anxiety April 30, 2022 1:09am Unknown Ac tive CHI (closed head injury) August 04, 2022 7:32pm Unknown Active Chest wall pain June 27, 2021 6:49pm Unknown A ctive Acute pain of right lower extremity August 05, 2022 5:04 am Unknown Active Cough July 09, 2019 10:53pm Unknown Acti ve Cough March 08, 2021 1:17pm Unknown Ac tive Dental caries December 02, 2016 5:48pm Unknown Active Depression June 09, 2022 12:37pm Unknown Act gregory Diarrhea July 14, 2017 11:25pm Unknown Act gregory Diarrhea July 22, 2017 9:38pm Unknown Acti ve Diarrhea January 17, 2020 11:58pm Unknown A ctive Diverticulitis December 08, 2019 6:25pm Unknown Active Dysuria September 07, 2022 3:34am Unknown Active Paresthesia of left foot June 26, 2020 12:55am Unkn own Active Flank pain February 12, 2021 12:01am Unknown Active Flank pain May 26, 2022 10:49pm Unknown Active Food poisoning October 03, 2019 5:21am Unknown Acti ve Gastroenteritis March 31, 2019 6:43am Unknown Active Pain due to ureteral stent July 22, 2017 9:38pm Unk nown Active Grief reaction October 27, 2019 2:31am Unknown Act gregory Cephalgia November 27, 2020 1:04am Unknown Act gregory Cephalgia April 17, 2021 11:11am Unknown A ctive Cephalgia April 16, 2022 11:58pm Unknown A ctive Cephalgia July 28, 2022 10:01pm Unknown Act gregory Headache March 11, 2017 12:49am Unknown Active Headache October 16, 2018 11:08pm Unknown Acti ve Headache December 03, 2018 12:02am Unknown Active Headache November 02, 2019 8:17pm Unknown Acti ve Headache June 26, 2020 9:17pm Unknown Acti ve Headache July 02, 2020 5:12pm Unknown Activ e Headache December 17, 2020 4:46pm Unknown Active Headache January 11, 2021 6:41am Unknown Ac tive Headache April 23, 2021 12:10pm Unknown A ctive Headache October 29, 2021 4:42am Unknown Activ e Headache November 25, 2021 2:03am Unknown Act gregory Headache February 05, 2025 3:36am Unknown Ac tive Migraine January 14, 2021 8:03am Unknown Ac tive Hyperlipidemia July 19, 2018 2:07am Unknown Ac tive Conflict between patient and family April 20, 2022 2:18am Unknown Active Pain in left leg June 26, 2020 5:57am Unknown Active Abdominal discomfort July 21, 2020 6:05pm Unknown Active Atypical chest pain November 09, 2018 10:50pm Unknown Active Atypical chest pain March 28, 2019 7:01am Unknown Active Atypical chest pain November 10, 2019 9:11pm Unknown Active Atypical chest pain February 14, 2020 1:47pm Unknown Active Atypical chest pain June 12, 2020 7:00am Unknown Active Atypical chest pain April 04, 2022 9:24am Unknown Active Otitis media October 27, 2020 11:29pm Unknown Acti ve Chronic abdominal pain January 03, 2020 4:53pm Unknow n Active Non-cardiac chest pain April 30, 2022 1:09am Unkno wn Active Non-cardiac chest pain August 07, 2022 2:05am Unknown Active Non-cardiac chest pain August 23, 2022 1:24am Unknown Active Periapical abscess December 04, 2021 10:09pm Unknown Active Infected dental caries April 30, 2021 7:05pm Unkno wn Active Acute postoperative pain February 19, 2021 12:56am U nknown Active Sinusitis December 21, 2020 11:09pm Unknown Active Costalchondritis February 14, 2019 1:05am Unknown Active Pain, dental December 02, 2019 9:35pm Unknown A ctive Toothache April 23, 2017 2:59pm Unknown Ac tive Toothache February 05, 2021 10:54pm Unknown A ctive Vertigo July 28, 2022 10:01pm Unknown Act gregory Viral illness August 23, 2019 8:34pm Unknown Activ e Viral illness May 29, 2020 1:16am Unknown Active Viral illness December 02, 2021 7:28pm Unknown Active Anxiety attack October 27, 2019 2:31am Unknown Act gregory Acute bronchitis February 05, 2019 4:57pm Unknown Active Matilda-menopause September 03, 2020 8:28pm Unknown Acti ve Iron deficiency anemia May 12, 2020 9:19pm Unkn own Active Weakness December 14, 2019 9:46pm Unknown Active Weakness July 21, 2020 6:05pm Unknown Acti ve Weakness November 25, 2020 7:09am Unknown Act gregory Musculoskeletal pain May 27, 2019 9:22pm Unknow n Active Dental infection February 16, 2022 1:05am Unknown Active Dental infection April 22, 2022 11:39pm Unknown Active Right flank pain December 14, 2018 10:06pm Unknown Active Right flank pain April 02, 2022 4:47am Unknown Active Sinus pressure December 03, 2018 12:02am Unknown Active Upper respiratory infection, viral March 30, 2021 2:56pm Unknown Active Viral URI December 25, 2020 3:51pm Unknown Active Viral bronchitis October 09, 2021 1:21pm Unknown A ctive Dental abscess December 03, 2018 12:51am Unknown Active Dental abscess December 03, 2021 5:31pm Unknown Active Impacted cerumen of right ear March 31, 2020 1:17 am Unknown Active GERD (gastroesophageal reflux disease) August 07, 2022 4 :17am Unknown Active Vaginal irritation March 14, 2022 12:56am Unknown Active Nausea & vomiting April 21, 2019 5:45am Unknown Active Nausea & vomiting May 31, 2020 6:03pm Unknown Active Nausea and vomiting October 29, 2021 4:42am Unknown Active Abdominal pain November 19, 2018 10:18pm Unknown Active Abdominal pain December 11, 2018 1:32am Unknown Active Abdominal pain December 17, 2018 9:12pm Unknown Active Abdominal pain April 21, 2019 5:45am Unknown Active Abdominal pain October 20, 2019 9:35pm Unknown Act gregory Abdominal pain October 28, 2019 5:36pm Unknown Act gregory Abdominal pain December 08, 2019 6:25pm Unknown Active Abdominal pain January 06, 2020 2:59pm Unknown A ctive Abdominal pain April 28, 2020 11:16am Unknown Active Abdominal pain June 07, 2020 11:54pm Unknown Ac tive Well adult health check February 23, 2020 10:10pm Un known Active Bronchitis April 12, 2021 11:21pm Unknown A ctive Chest pain November 22, 2018 11:56pm Unknown Ac tive Chest pain July 26, 2019 8:26pm Unknown Acti ve Chest pain November 02, 2019 10:21pm Unknown Act gregory Chest pain April 17, 2021 11:11am Unknown A ctive Chest pain May 04, 2021 11:09pm Unknown A ctive Chest pain April 16, 2022 11:58pm Unknown A ctive Chest pain July 28, 2022 10:01pm Unknown Act gregory Chest pain February 05, 2025 3:36am Unknown Ac tive HTN (hypertension) January 18, 2019 1:44am Unknown Active HTN (hypertension) May 12, 2020 9:19pm Unknown Active Hypertension July 19, 2018 2:08am Unknown Acti ve Hypertension December 14, 2019 9:46pm Unknown Active Hypertension May 26, 2022 10:49pm Unknown Active Nausea July 14, 2017 11:25pm Unknown Act gregory Nausea April 26, 2019 12:31am Unknown A ctive Nausea January 30, 2020 9:56am Unknown Ac tive Nausea February 26, 2020 7:52pm Unknown A ctive Nausea March 26, 2020 12:06am Unknown Active Nausea November 27, 2020 1:04am Unknown Act gregory Nausea April 02, 2022 4:47am Unknown Act gregory Pharyngitis December 21, 2020 5:42pm Unknown Active Pharyngitis April 02, 2021 12:51pm Unknown Ac tive Diverticulosis of colon with out diverticulitis April 26, 2019 12:31am Unknown Active Vomiting July 19, 2018 3:42am Unknown Acti ve Acute costochondritis October 04, 2018 3:00am Unknown Active Laceration of finger of right hand July 06, 2021 10: 58pm Unknown Active Right foot sprain January 05, 2022 1:30am Unknown Active Abdominal pain, chronic, generalized April 21 7:29pm Unknown Active Dermatitis, vesicular May 12, 2022 12:28am Unkn own Active Hypokalemia December 22, 2018 2:31am Unknown Active Inactive/Resolved Problems Problem Diagnosis/Recorded Date Onset Date Stat us Hypertensive urgency November 18, 2022 3:55am Unknown Resolved Nausea, vomiting, and diarrhea February 10, 2024 3:1 7am Unknown Resolved Nonspecific abdominal pain May 11, 2023 8:22am Unknown Resolved Nonspecific abdominal pain September 21, 2023 6:12am Unkn own Resolved Chest pain with low risk for cardiac etiology November 15, 2024 7:57pm Unknown Resolved Atrophic vaginitis November 13, 2022 12:45am Unknown Resolved Encounter for medication refill December 09, 2022 4 :43am Unknown Resolved Rib pain on right side April 11, 2023 4:23am Unkno wn Resolved Viral URI with cough December 11, 2023 7:22am Unkno wn Resolved Elevated blood pressure reading June 03, 2023 5:48am Unknown Resolved Acute upper respiratory infection February 14, 2024 11:58pm Unknown Resolved Influenza A May 10, 2024 6:35am Unknown Re solved Malaise June 15, 2023 6:42pm Unknown Reso lved Generalized body aches November 20, 2022 1:48am Unknow n Resolved DUB (dysfunctional uterine bleeding) October 03, 2023 5: 49pm Unknown Resolved Postmenopausal bleeding December 30, 2024 11:59pm Unkn own Resolved Paresthesia March 04, 2023 2:07am Unknown Re solved Dizziness August 16, 2021 1:03am Unknown Resolv ed Uterine fibroid January 03, 2025 10:01pm Unknown Resolved Back strain July 13, 2023 6:19am Unknown Reso lved Ovarian cyst October 24, 2022 3:08am Unknown Resol liliana Sweating September 29, 2023 10:14pm Unknown Reso lved Hot flashes September 29, 2023 10:14pm Unknown Reso lved Upper back pain July 29, 2023 2:23am Unknown R esolved Ear pain August 16, 2021 1:03am Unknown Resolv ed Acute viral syndrome July 20, 2021 9:18pm Unknown Resolved Pain due to dental caries December 11, 2022 3:18am Unknown Resolved Bleeding per rectum November 03, 2024 3:06am Unknown Resolved Upper respiratory infection December 15, 2024 3:26a m Unknown Resolved URI (upper respiratory infection) June 10, 2024 12: 10pm Unknown Resolved Accelerated hypertension November 11, 2023 3:53am Unkn own Resolved Anxiety November 05, 2023 2:54am Unknown Reso lved Back pain November 24, 2023 11:14pm Unknown Re solved Dental caries September 21, 2024 2:06am Unknown Reso lved Dysuria June 25, 2019 11:03pm Unknown Res olved Dysuria January 08, 2020 10:01pm Unknown Re solved Dysuria October 16, 2020 5:46am Unknown Resol liliana Dysuria February 12, 2021 12:01am Unknown Resolved Dysuria June 03, 2023 5:48am Unknown Resol liliana Dysuria October 07, 2024 4:31am Unknown Resolv ed Flank pain March 06, 2023 8:20am Unknown Re solved Cephalgia August 16, 2021 1:03am Unknown Resolv ed Cephalgia December 09, 2022 4:41am Unknown Resolved Headache November 01, 2022 4:28am Unknown Reso lved Headache November 20, 2022 1:48am Unknown Res olved Headache December 04, 2022 4:43am Unknown R esolved Headache March 31, 2023 4:24am Unknown R esolved Headache April 11, 2023 4:23am Unknown Re solved Headache June 17, 2023 4:22am Unknown Reso lved Headache November 05, 2023 2:54am Unknown Reso lved Headache November 11, 2023 3:53am Unknown Res olved Headache January 04, 2024 1:29am Unknown Res olved Migraine November 15, 2024 7:57pm Unknown Res olved Infection of kidney August 06, 2023 6:29am Unknown Resolved Kidney stone August 06, 2023 6:29am Unknown Resolve d Poorly-controlled hypertension December 04, 2022 4:4 3am Unknown Resolved Atypical chest pain October 10, 2022 1:24am Unknown Resolved Atypical chest pain October 03, 2023 5:49pm Unknown Resolved Atypical chest pain June 15, 2024 4:27am Unknown Resolved Atypical chest pain November 23, 2024 4:23am Unknown Resolved Non-cardiac chest pain November 01, 2022 4:28am Unknown Resolved Non-cardiac chest pain November 18, 2022 3:55am Unknow n Resolved Non-cardiac chest pain March 04, 2023 2:07am Unkno wn Resolved Near syncope December 05, 2023 3:33am Unknown R esolved Dentalgia December 09, 2022 4:43am Unknown Resolved Dentalgia May 21, 2023 12:37am Unknown Resolved Odontalgia September 14, 2023 6:44am Unknown Resol liliana Viral illness June 15, 2023 6:42pm Unknown Res olved Viral illness December 01, 2024 2:30am Unknown Resolved Matilda-menopause October 03, 2023 5:49pm Unknown Reso lved Dental infection August 16, 2021 1:03am Unknown Re solved Dental infection November 13, 2022 12:45am Unknown Resolved Infected tooth April 11, 2023 5:16am Unknown Resolved Rectal bleed March 18, 2023 12:26am Unknown Resolved Rectal bleed April 07, 2023 12:50am Unknown Re solved Right flank pain October 07, 2024 4:31am Unknown Re solved Right flank pain December 04, 2024 4:37am Unknown Resolved Right flank pain December 15, 2024 3:26am Unknown Resolved Abnormal stool color December 05, 2023 3:33am Unknow n Resolved Bilateral flank pain September 12, 2021 3:23am Unknown Resolved Elevated blood pressure read ing with diagnosis of hypertension November 01, 2022 4:28am Unknown Resolved Elevated blood pressure read ing with diagnosis of hypertension June 17, 2023 4:22am Unknown Resolved Abscess, dental December 13, 2023 11:54pm Unknown Resolved Bilateral otitis media with effusion March 31 1:17am Unknown Resolved Finger sprain September 21, 2024 2:06am Unknown Reso lved Abdominal pain October 24, 2022 2:58am Unknown Res olved Abdominal pain January 27, 2024 4:08am Unknown Resolved Abdominal pain February 10, 2024 3:13am Unknown Resolved Abdominal pain November 03, 2024 3:06am Unknown Re solved Abdominal pain November 12, 2024 8:17am Unknown R esolved Atelectasis of left lung October 08, 2021 6:36am Unknow n Resolved Bronchitis February 20, 2024 4:38am Unknown R esolved Bronchitis May 10, 2024 6:17am Unknown Re solved Chest pain June 03, 2023 5:48am Unknown Resol liliana Chest pain June 19, 2023 7:53pm Unknown Reso lved Chest pain November 05, 2023 2:54am Unknown Reso lved Chest pain November 11, 2023 3:53am Unknown Res olved Chest pain December 16, 2023 3:17pm Unknown Resolved Chest pain September 01, 2024 5:03am Unknown Resolv ed Hemorrhoid March 18, 2023 12:26am Unknown Resolved Hemorrhoids April 07, 2023 12:50am Unknown Re solved HTN (hypertension) December 05, 2023 3:33am Unknown Resolved Hypertension December 09, 2022 4:41am Unknown Resolved Hypertension November 05, 2023 2:54am Unknown Reso lved Nausea January 04, 2024 1:30am Unknown Res olved Pharyngitis June 19, 2024 12:27am Unknown Res olved Pneumonia May 08, 2024 4:14am Unknown Re solved Sore throat June 17, 2023 4:22am Unknown Reso lved Sore throat January 04, 2024 1:29am Unknown Res olved Contusion of knee, right May 13, 2024 10:32pm U nknown Resolved Abdominal wall strain February 20, 2024 4:38am Unkno wn Resolved Hypomagnesemia March 04, 2023 2:07am Unknown Resolved Hypomagnesemia June 15, 2023 6:42pm Unknown Re solved Medications Medication Status Dose Units Route Directions Qty Days Refills S tart Date Stop Date End Date Reason(s) Instructions Adherence Cetirizine 10 mg Tablet Discontinued 10 MG PO Katherine ly December 01, 2016 11:00pmSeptember 2016 8:33amLisinopril 20 mg Tablet Nwyyabdlknex62VNZRDpmtgHpwfjulmn 2nd, 2017 11:00pmDecember 2019 7:30pmhtn Lovastatin 10 mg PhajvcBnwvdmqhteue81KCMNNxcxzFjszjpoja 2nd, 2017 11:00pmOctober 2017 8:10pmhyperlipidemiaClindamycin Hcl 300 mg idzjvmzBnrnyvrcrddj660NLRD [id number] 2016 11:00pmSeptember 2016 8:33amNaproxen 500 mg ybuyowDgqcmjzifirs150CVIOOcvib ibhqr403Wsfbqcxwi 2016 11:00pmSeptember 2016 8:33amadminister with food or milkClindamycin Hcl 300 mg capsule Uqdpjowczuhg637WXQFNhtk times jknsb79787Rmqpfyn 2017 12:00amFebruary 2017 12:00amFebruary 2017 12:04amHydrocodone-Acetaminophen ([place]) 5-325 mg fnsubzHanzelzoqttr6JBKIVODQQO 4-6 HOURS as needed for wojp829Hekzt 2017July 02, 2017 12:51amUnspecified renal colicCephalexin (Keflex) 500 mg capsule Nzqyfetttipe4GNQLWirxz plxan339Ixfxf 2017 11:00pmApril 2017 9:21pm Promethazine 25 mg CidvrbPjollwllhqvx30ULIKW1T as needed for Nmdtiy340Rwspa 2017 11:00pmApril 2017 9:21pmOndansetron (Zofran Odt) 8 mg tablet,pamhtjnguzuogbMqebqqedupds4KHRST3G as needed for yngile1542Bgumu 2017 11:00pmApril 2017 11:00pmApril 2017 11:02pmLevofloxacin (Levaquin) 500 mg XbeeyjLemttfskvhnr268THYVZxfoa556Mrq 2017 11:00pmJune 2017 10:53amCephalexin (Keflex) 500 mg xqjeyarXuoekacvpcbj854JFLXDynun times rnvzg2063Hby 2017 11:00pmJune 2017 11:00pmJune 2017 11:02pmspace evenly during waking hoursCiprofloxacin Hcl (Cipro) 500 mg tablet Jmbrossvxwtp750NPPWT61N84Fvhi 2017 11:00pmJuly 2017 10:31pm Oxycodone-Acetaminophen 5-325 mg ihzpdtQjrxnawpkpej2CKMZVLUMJL 4-6 HOURS as needed for dnip070Nzte 2017June 2017 11:00pmJune 2017 11:01pm Calculus of kidneyClindamycin Hcl 300 mg ZgkqozcQcvuxkqvaoav164AEHPVtpmm times dailySept2017 11:00pmOctober 2017 8:09pmAtorvastatin 20 mg vrafutXokpnr44PMZQQxxheLagvbdp 2017 11:00pmUnknownMeclizine 25 mg tablet Ahepyhvpwgka55CMQUWhcet times evgaa028Bsdolzw 2017 11:00pmJanuary 2018 12:34amIbuprofen 800 mg SkimlwEyehthpqwjrq264GAJEFxmav times daily as needed for Bwsh017Jcraxhc 2017 11:00pmNovember 2017 9:18pm Hydrocodone-Acetaminophen ([place]) 5-325 mg TabletDiscontinued1 - 2TABPOEvery 4 hours as needed for Xzlr0047Mcogqzm 2017 9:18pmCalculus of kidney Calculus of kidneyOndansetron (Zofran Odt) 4 mg Tablet,Disintegrating Ipdhqeydqxtn0SJKYF1Q as needed for Pqrnmu110Jtpeejz 2017 11:00pmNovember 2017 9:18pmIbuprofen 800 mg AbsbruDnhuuvwwzmsh692CZTFKvcck times daily as needed for Ctpt191Lnwcley 2017 11:00pmApril 2018 2:58amHydrocodone- Acetaminophen ([place]) 5-325 mg TabletDiscontinued1 - 2TABPOEvery 4 hours as needed for Adwl1482Gnwkngr 2017 9:18pmCalculus of kidney Calculus of kidneyOndansetron (Zofran Odt) 4 mg Tablet,Disintegrating Scbegsyjqywn2FKNWU6M as needed for Ufawax762Dljcxbh 2017 11:00pmJanuary 2018 12:34amClindamycin Hcl 300 mg dqjmursVsygfekmmedp537QUDRO0B55572 February 08, 2018 12:00amNovember 2017 12:00amNovember 2017 12:01amOxycodone-Acetaminophen (Percocet) 5-325 mg mbwzloGnljleveajws6VOXRYdhlsd 6 to 8 hours as needed for wrjh8315Ckytkafn2017 12:00amNovember 2017 12:02amCalculus of kidneyMeclizine 25 mg tablet Fgpqjilpbwqt74SHEDUhvsb times daily as needed for DizzinessJan2018 12:34amJune 2018 5:46pmOndansetron Hcl (Zofran) 4 mg mgmodrQpluwommqtey4TP POevery 6 to 8 hours as needed for nausea and opjyewae723Hgbfh 2018 11:00pmSeptember 2018 6:12pmClindamycin Hcl 300 mg vmndoetCfebpvhnjscm282 LWLMP9F88084Hxwgz 2018 11:00pmJune 2018 11:08pmIbuprofen 800 mg fktxveOyhkxoyehmlv975TZJPYvkhd times daily as needed for kzmg054Rjuli 2018 11:00pmJune 2018 11:08pmLisinopril 20 mg murldcXjlcsndscjjt07CJDBQfxsa389 September 20, 2018 11:00pmJuly 2018 3:55pmAtorvastatin 20 mg tablet Hstxobshtnlh32VSIEVgzkw361Txfu 2018 11:00pmJuly 2018 3:55pmNaproxen (Naprosyn) 500 mg gmytbaBlcxlmzwhzmx047PAFRUgyog ryqay972Fipv 2018 11:00pm October 05, 2018 3:55pmNaproxen 500 mg ylwjyvDstemmfduohf187VMYCEpjgw tucju428Fdse 2018 11:00pmSeptember 2018 7:55pmadminister with food or milk Dicyclomine 10 mg ucluwafFlnlinrripnd41LIBFMjuvr times xefjm967Pzveid 2018 11:00pmSeptember 2018 6:11pmpainClindamycin Hcl 150 mg capsuleDiscontinued 857PHBUZ5K7746Udbvbvjij 2018 11:00pmSeptember 2018 7:54pmdental abscessDicyclomine 20 mg CucocvMripllhktiqg26DWWIUpgs times xhzap619Ebkpbbvwj 2018 11:00pmSeptember 2018 6:12pmOndansetron 4 mg Tablet,CdhvdcqmvicxrwGpxppvtypcsh1SOCQdvawz 6 to 8 hours as needed for Qmjwas506 December 10, 2018 11:00pmJanuary 2019 4:34pmDicyclomine 20 mg tablet Exyovqfmcciq26FUNTYidv times daily as needed for Abdominal DiscomfortSeptember 2018 6:12pmNovember 2018 3:56pmOmeprazole 20 mg capsule,delayed release(DR/EC)Btzcvdhiqwvp79RMKEQqkot582Fbflkvsmy 2018 11:00pmMarch 2019 10:19pmClonazepam (Klonopin) 0.5 mg tabletDiscontinued0.5MGPOTwice daily as needed for pfiomhk07191Yyxprkkfp 2018 12:35amSeptember 2018 1:14am Anxiety disorder, unspecifiedPotassium Chloride (K-Tab) 20 mEq tablet extended inpnjkcVecwyguifvly98ETEQDKjwyg68Ykehzjjgd 2018 11:00pmOctober 2018 9:18pmHydroxyzine Hcl 25 mg oqoyxwQzvzsayziapt72KAANH4A as needed for vuzepqo644 December 21, 2018 11:00pmOctober 9th, 2020 9:08pmDicyclomine 20 mg Tablet Lqxncpzicxjr88ELPWBywf times cedpk422Evmdeiz 29th, 2019 11:00pmMarch 2019 10:19pmPromethazine 25 mg PmalvpNxkeflgisycf17IWTHS2I as needed for Hmwftx378 January 27, 2019 11:00pmMarch 2019 10:19pmMeclizine 25 mg Tablet Axfrrcdcehht69SPZEDvqxw times daily as needed for Nzmhqyg926SujnpglqMarch 27, 2019 12:00amOctober 2019 9:08pmOndansetron 4 mg Tablet,Disintegrating Kapeiqimzwso5FMQRmqbld 6 to 8 hours as needed for Pwnjgy147IewtobjqMarch 31, 2019 12:00amMarch 2019 10:19pmFluticasone Propionate (Flonase Allergy Relief) 50 mcg/actuation spray,cophtgkohpCrekvwotvrbl1AWAEIGDIGLVMQDYT54J as needed for nasal ntlsnjssen46.80January 2019 12:00amApril 2019 4:59pmadminister into each nostrilNaproxen (Naprosyn) 500 mg qyvwgsDrlkmbwgllwf812VLGZBgnhe daily as needed for wlyp319Zggkh 2019 9:44pmMay 2019 6:43pmPhenazopyridine (Pyridium) 200 mg ijkxzzVcdninsemflp356MNJTIqyhk times daily as needed for lgfxmsu74Zlqai 2019 11:00pmApril 2019 10:41pmadminister with a full glass of water with each mealNitrofurantoin Monohyd/M-Cryst (Macrobid) 100 mg khaxtngWswyhgbeizth674DISAV44O5939Llsdz 2019 11:00pmMarch 2019 12:27amadminister with a meal/food; swallow whole; do not open, crush, dissolve , or chewOndansetron Hcl (Zofran) 4 mg cleourStqgpxslopzg3YCFAanbhh 6 to 8 hours as needed for nausea and dwrogpsx70Bjyo 2019 11:00pmJuly 2019 9:36pm Dicyclomine 20 mg SfecgnUwcezgmyavkg35LVJBIfdt times wjmue054Oetl 2019 11:00pmOctober 2019 9:08pmOndansetron 4 mg Tablet,Disintegrating Lmaagznkjbop4IJWQpikyo 6 to 8 hours as needed for Dedppd159Ldtn 2019 11:00pmSeptember 2019 6:19pmPropranolol 80 mg Capsule,Extended Release 24 TlIqbonupycscr71ZGLZOetkj oswqydd48510Yyvqdw 2019 11:00pmOctober 2019 9:09pmCiprofloxacin Hcl (Cipro) 500 mg kqinygVdlcmwkqojct653RTQSOgmqu December 07, 2019 11:00pmOctober 2019 3:23pmMetronidazole (Flagyl) 500 mg edvlfsJnquhbkrshxg980TQRGDblxq ebncv7143Bsobgsfbh2019 11:00pmOctober 2019 3:23pmCiprofloxacin Hcl 500 mg tabletDiscontinuedSept2019 11:00pmSeptember 2019 6:20pmOndansetron 4 mg tablet,disintegrating Vmqtvnvqghyr2RZKTR6G as needed for nausea and kdbhmlzw670Mdviytax 15th, 2020 12:00amJanuary 2020 11:11amLisinopril 40 mg zsndnaPrqjmjritcsu01JGODKvwng March 18, 2020 12:00amSeptember 2022 2:25amDicyclomine 20 mg tablet Nhylajfdekbv16HQCVOgql times daily as needed for Gastrointestinal Spasms Or CrampingDece2019 7:31pmDecember 2020 11:31amOndansetron 4 mg tablet,mlbsvszcaayqjtUpwaylkdswed7HPGEDdyyk as needed for nausea and kkoppdhl550 March 26, 2020 12:00amJanuary 2020 11:11amOndansetron 4 mg tablet,wromswabattpywXforrbpiplvl6LZBDR7D as needed for nausea and pykjxsdi836 April 28, 2020 12:00amFebruary 2020 12:50amBenzonatate 200 mg Capsule Kkpykkxfgjyj979VQMXIgnen times daily as needed for Hhslu538Trpjs 2020 12:00amAugust 2020 1:36amCyclobenzaprine 10 mg wxqzweKteknowosdbq58QJVS Three times daily as needed for SpasmsMay 2020 11:00pmAugust 2020 1:36amClindamycin Hcl 300 mg aaqfndqZtdqanhebwiy731BLDZU5U26230Goy 2020 11:00pmAugust 2020 1:35amOxycodone-Acetaminophen (Percocet) 5-325 mg waauxtTbtygfgxscry4LHHSBWXOJG 4-6 HOURS as needed for foqk3610Jzp 2020November 09, 2020 1:36amToothache Other specified disorders of teeth and supporting structuresIbuprofen 600 mg cxmcwpIqyklyzkwxmi544JPBIC3Z as needed for bfjp813Bct 2020 11:00pmAugust 2020 1:36amClindamycin Hcl 150 mg gkjuecfAlfjyypfdrga094IATLG6Y2727Diby 2020 11:00pmAugust 2020 1:35amClindamycin Hcl (Cleocin Hcl) 300 mg FqzmdexLyedmtqqpdie661NTBXUbfms times hudjr853Eewt 2020 11:00pmAugust 2020 1:35amIbuprofen 800 mg DxzkvvWssvrapphkob523KQMRFtfpe times daily as needed for Igsq825Oamc 2020 11:00pmOctober 2021 1:34amClarithromycin 500 mg FakcijLakgzuqpfefn782IEWXB15T490Wdgz 2020 11:00pmAugust 2020 1:35amNaproxen (Naprosyn) 500 mg fatffhQyqecqqozojr924HLIEZxfit daily as needed for gbat5968Xmnenzj 2020 11:00pmFebruary 2021 8:53pmMeclizine 25 mg fvpckpHkxqazfbgimk23EUHIHymve times daily as needed for Zhdurje549Qsskxlq 2020 11:00pmJanuary 2022 2:33amOndansetron 4 mg Tablet,Disintegrating Ddrdqbypaega2JOWIsrokw 6 to 8 hours as needed for Swlcdi891Oakzotyr 2020 12:00amDecember 2020 11:31amAzithromycin 250 mg nwiqjyZffvwgujdhwj489SPUV Dnsfs601Dlncxex 2021 12:00amFebruary 2021 8:53pmstart on day 2 of therapyClindamycin Hcl 300 mg qmjndofPtfpmhwticqm886OBAHG4O0800Mwy 2021 11:00pmJuly 2021 6:43amClindamycin Hcl 150 mg aruxpenYxztrqlzgarr282BIAZ T7K7199Mbs 2021 11:00pmJuly 2021 6:43amLactobacillus Combination No.4 (Probiotic) 3 billion cell qyspobjOuaoryaufeau6414OCV YVKBIARSanxl83364Pxl 2021 11:00pmJuly 2021 1:06pmadminister with a mealOndansetron 4 mg tablet,ykkycduvlyaaqlYjeprdablyhs8ZSGCV8K as needed for nausea and October 28, 2021 11:00pmOctober 2021 1:34amOxycodone-Acetaminophen (Percocet) 5-325 mg lpsrwkUrcervizsxxd9OKOLVZ6S as needed for snel2375Rxvribfah ctober 2021 11:27pmToothache Other specified disorders of teeth and supporting structuresOndansetron 4 mg tablet,zbinsxkwgjaituDhsciwbqhssq6VPAYncabs 6 to 8 hours as needed for Ujogeh421 December 17, 2021 11:00pmSeptember 2021 11:40pmNaproxen (Naprosyn) 500 mg hbjldtNgpeobdwdncd002OHOTNnkea daily as needed for gcqt7808Knchtee 2022 12:00amJanuary 2022 2:33amPropranolol 20 mg pwzkebPulyxvxpzmmx59XWDYLiyfl dailyJanuary 2022 12:00amDecember 2022 7:40amClindamycin Hcl 150 mg utofircNcazmcdlcrgf401ENAXGvlmp times besdw9376Qiixqls 2022 12:00amMarch 2022 4:23amLoperamide 2 mg NznmtzwFbippkcundfp4JINNR6D as needed for Vtmmnxfw09576Jbksy 2022 11:00pmJune 2022 11:56pmTrazodone 50 mg YiqpoqUkjdaujsrkmu94XWWPPmxoy at bedtime as needed for Iilafddj29588Wyocw 2022 11:00pmJune 2022 11:56pmEscitalopram Oxalate 10 mg TabletDiscontinued 93ADASGjhpt26515Eattb 2022 11:00pmJune 2022 11:56pmClindamycin Hcl 300 mg jbgxqoyEclplinjewzn930FYDFV8K as needed for PainMarch 2022 11:00pm August 05, 2022 5:02amIbuprofen 800 mg gglzfiOkftpjpgqgnx458RKWFAzgao times daily as needed for PainMarch 2022 11:00pmMay 2022 5:02amAcetaminophen- Codeine 300-30 mg nceypbRalpoenlonbh5MRZFJR9J as needed for PainMarch 2022 11:00pmMa2022 5:02amMeclizine 25 mg xrlmuuXobwkfnyuxgx49BLFDHaxdf times daily as needed for Kupagqd647Rfuja 2022 11:00pmJun2022 11:56pm Naproxen (Naprosyn) 500 mg tweabwOhnpafnjdhmv888MFJEGsqbm daily as needed for mgjc522Nnnov 2022 11:00pmMay 2022 5:02amOmeprazole 40 mg capsule,delayed release(DR/EC)Yxebqv48LCDTHltbp375Ydb 2022 11:00pmUnknown Ibuprofen 800 mg ycuqjrDputdygsxbnz762GPLMT1Q as needed for PainAugust 2022 11:00pmDecember 2022 10:56pmOxycodone 5 mg tabletDiscontinued5 - 10MG POQ6H as needed for alrh7733Gmixwsgif eceer 2022 7:40amPain due to dental caries Irreversible pulpitis Dental caries, unspecified Irreversible pulpitisMagnesium Oxide 400 mg magnesium nokbrmUfhffvlsbwwp058DBJY Twice bwifs586Ljtibnvi 4th, 2023 12:00amFebruary 2023 5:11amHydrocortisone Acetate (Anusol-Hc) 25 mg rnidkltvbuiQdjgwlkejzwg81KSYLPkijz at bedtime as needed for yuedmgzdpiq264Uvwbuih 2023 12:00amFebruary 2023 5:11am Clindamycin Hcl 300 mg jhhyljxYbjunwcftemk249UCNFAspoo 8 hwreu7209Mvkyorsf 2023 12:00amMarch 2023 3:10amCiprofloxacin Hcl (Cipro) 500 mg tablet Bnziooeqngon255IFRDJordx mfojw622Mqp 2023 11:00pmJune 2023 3:09am administer dose at least 2 hrs before/6 hrs after dairy products, calcium, zinc, and/or iron-containing productsOndansetron Hcl 4 mg obcuzvVezyglddzwmo8JNLVYexwt 8 hours as needed for nausea and zgqtupft3919Tac 2023 11:00pmJune 2023 3:09amNaproxen (Naprosyn) 500 mg mtotcnRraldqprjgrg453HSUXRrsro daily as needed for ihrd1423Hyh 2023 11:00pmJune 2023 3:08amOxycodone 5 mg nsjaxpYgscuwuktvqn7SMLRPvapb as needed for smuy983Nok 2023June 2023 3:09amCalculus of kidney Calculus of kidneyCyclobenzaprine 10 mg rawvecFsrcsonyrmlu52IIKBFlhhz times daily as needed for Muscle Bvltb480Vzjvim 2023 11:00pmSeptember 2023 2:45pmIbuprofen 800 mg kynwvpWdkrvlmehjob110LADFInejb times daily as needed for Pwol399Oltkwn 2023 11:00pmNovember 2023 4:39amBenzonatate 100 mg vxgspqjLxdaoperbfbn754DRFGPcqlv daily as needed for bmzar5324Tgvaqarxm 2023 11:00pmNovember 2023 4:39amCyclobenzaprine 5 mg bqrplwPkrxoxhopbgo2NQ POEvery 8 hours as needed for muscle kgvig8688Cqdqnfcmx 2023 7:22amMay 2024 12:14amIbuprofen 600 mg cmsogwFynoknazgefv074FXLCN9F as needed for gxpp6226Nhhsgcafe 2023 11:00pmSeptember 2023 2:45pmIbuprofen 600 mg wqbhedXkmwvzdyezpe199QQWWH2I as needed for ewds267Gebckgy 2023 11:00pm February 20, 2024 4:39amOndansetron 4 mg tablet,xhnboaxttwubgqFmdypmbswjqd7PK POQ8H as needed for nausea and tdsysemo794Owhktte 2023 11:00pmNov2023 4:39amAcetaminophen (Tylenol) 325 mg pobebyuXejetv230URDZGncsc 6 hours as needed for azva3710Necdedd 2023 11:00pmUnknownIbuprofen 600 mg tdjxxjCqpajtewjuus186RZVCP4T as needed for qukl3399Xndvixu 2023 11:00pm February 20, 2024 4:39amLevofloxacin 750 mg ocbdakKjrcphhlahrh547TITXGhsqv538 May 08, 2024 12:00amFebruary 2024 5:45amHydrocodone-Acetaminophen 5- 325 mg gtiszfCswrzcrmrjso4PMJSDA7Z as needed for ymng8735Dtlczmqt 2024May 10, 2024 5:45amPleurisy PleurisyNaproxen (Naprosyn) 500 mg nbeziwFudfbtltvkwl517LWMJVtvlo daily as needed for thbh253Yigtidtc 2024 12:00amMay 2024 12:14amIbuprofen 800 mg njwjffBchkroekajog530LZHDKonvp times daily as needed for Dlsg427Hvspu 2024 11:00pmJuly 2024 4:31amClindamycin Hcl (Cleocin Hcl) 300 mg capsule Yikdlhrbabbg317QOTRErxfn times ivreh696Jfu 2024 11:00pmSeptember 2024 4:19amIbuprofen 800 mg krqgbxVlailyckahjj384WHCQUnzgh times daily as needed for Ggls602Yqq 2024 11:00pmJuly 2024 4:31amErythromycin 500 mg tablet Xhmxohwhjjdx884JQJKAuch times lwkmt630Gdrq 2024 11:00pmSeptember 2024 4:19amIbuprofen 800 mg iakpzjWriumllksyuk604TLSYPegfr times daily as needed for Jjjo122Jhks 2024 11:00pmJuly 2024 4:31amCiprofloxacin Hcl (Cipro) 500 mg wkwlknZvbvqtqcdzqz663JDEWUvkmr gbqvj3649Svxf 2024 11:00pmSeptember 2024 4:19amadminister dose at least 2 hrs before/6 hrs after dairy products, calcium, zinc, and/or iron-containing productsHydrocodone-Acetaminophen 5-325 mg qvqskbNnfddqhujdns3UFFAZX9K as needed for cwkb7419Tmme 2024September 2024 4:19amRight flank pain Unspecified abdominal painIbuprofen 600 mg sdsbvzTnjlgwyfuwfa878EZSBM8V as needed for qswk657Tszk 2024 11:00pmSeptember 2024 4:20amClindamycin Hcl (Cleocin Hcl) 300 mg hsbacngJnxjgllkladg246KWMXQpwum times yrjhu695Mfqv 2024 11:00pmSeptember 2024 4:19amIbuprofen 800 mg tabletDiscontinued 800MGPOThree times daily as needed for Ohef834Dzrs 2024 11:00pmSeptember 2024 4:20amOndansetron 4 mg tablet,ydhmmnambxcmphJdheuc8ZMNCHbket 8 hours20 0August 2024 11:00pmUnknownLisinopril 40 mg jaekfzQxgptz76AGNJQaqxz88478 November 15, 2024 8:15pmUnknownLisinopril 40 mg frqthiIkdway05CXQJHsafc501 January 02, 2025 11:00pmUnknownOndansetron 4 mg tablet,phoicjzwjarzitMinobu6AL POEvery 6 hours as needed for nausea and dmbzkjfj264Bszpvdr 2024 11:00pm UnknownPromethazine-Codeine 6.25-10 mg/5 mL dmmdgAsyypkuyhqvv6VNWWFBDOC 4-6 HOURS as needed for lnoyd28723Oxfsifb 2017 12:00amFebruary 2017 12:00amFebruary 2017 12:04amAcute upper respiratory infection, unspecified Hydrocodone-Acetaminophen ([place]) 5-325 mg NfryijLcoopajdykjo8YUKNDPFSZN 4-6 HOURS as needed for Ewew702Lgtlz 2017April 2017 9:21pmUreteric colic Unspecified renal colicTamsulosin (Flomax) 0.4 mg capsule,extended release 24hr Discontinued0.4YGYIHthnl863Stcot 2017 11:00pmApril 2017 11:00pmApril 2017 11:01pmswallow whole with liquid; do not crush/chew/dissolve/open Cephalexin 500 mg rvsgoxFbjgffhxaqle386VKWNQquij ifzlc5012Sdjqv 2017 11:00pmApril 2017 11:00pmApril 2017 11:01pmOndansetron 8 mg Tablet,QfwybhsthpiwllVpkskfnsoerb1PSEBTkxum daily as needed for Nausea And VomitingMay 2017 11:00pmMay 2017 11:17amOndansetron 4 mg Tablet,ZvqdyphgdayhxmBcgcazwhydew4OJBAG2A as needed for Nausea And VomitingMay 2017 11:00pmJune 2017 12:58pmTramadol 50 mg VgeypoRixwnlkivwbu97PJZG Four times daily as needed for PainMay 2017 11:00pmMay 2017 11:01pm Ciprofloxacin Hcl (Cipro) 500 mg tggwauWfqzdyvlcexl361AJQWO48G85Ega 13th, 2018 11:00pmMay 2017 9:20pmadminister dose 2 hrs before/6 hrs after dairy products/calcium/zinc/iron-containing productsOxycodone-Acetaminophen 5-325 mg jbnamjPrttinpcybmm6UTHKVI6E as needed for eety342Ytl 2017 11:00pmy 2017 11:02pmCalculus of kidneyCephalexin (Keflex) 500 mg HpbnmsfMnrpggfwvaiz944HMHEUlzpf dailyAugust 10, 2017 11:00pmy 2017 9:20pm Ciprofloxacin Hcl (Cipro) 500 mg cnpjonCoxuvcvklxhe372CJYGQmyvl rgouu86006KzfAugust 10, 2017 11:00pmAugust 19, 2017 11:00pmAugust 20, 2017 11:01pmadminister dose 2 hrs before/6 hrs after dairy products/calcium/zinc/iron-containing products Promethazine 25 mg ecnlmuGwpueptatfca40NYTGW4S as needed for nausea and vomiting 200May 2017 11:00pmOctober 2017 8:09pmHydrocodone-Acetaminophen ([place]) 5-325 mg xnagzfAbqgkaaqeapy6DXFGDNPODB 4-6 HOURS as needed for dpdf020 September 03, 2017June 2017 12:58pmCalculus of kidneyOxycodone-Acetaminophen (Percocet) 5-325 mg jgmwxhAoauriezeply3JQQMSUNARO 4-6 HOURS as needed for pain14 0Jun2017July 2017 10:31pmUrinary tract infection, site not specifiedCephalexin (Keflex) 500 mg pufapqrZnnkypfaejmd949SJPBB1P2686Abvy 2017 11:00pmJuly 2017 11:00pmJuly 2017 11:02pmHydrocodone- Acetaminophen ([place]) 5-325 mg qwmerdVxzncpggckqq2EIUMMQ1X as needed for ykbf902 February 26, 2018January 2018 12:33amHydronephrosis with renal and ureteral calculous obstructionCiprofloxacin Hcl (Cipro) 500 mg tablet Nbfuppnbxdlj043WZSEBbkaf ibdsd0416Yconhbst 28th, 2018 12:00amDecember 2017 12:00amDeceer 2017 12:01amOxybutynin Chloride 5 mg slwfpnRafojopizwgk7CA POTwice umhrz577Dqvtyzoa 28th, 2018 12:00amJanuary 2018 12:34amHydrocodone- Acetaminophen ([place]) 5-325 mg ppxryxWotmyrgwbcbv8YZOHOK1X as needed for muqs033 April 14, 2018January 2018 12:00amJanuary 2018 12:02am Unspecified abdominal painHydrocodone-Acetaminophen ([place]) 5-325 mg tablet Aizbamjuwnqn0GFWZEJ2E as needed for wjml494Uqiilbb 2018April 2018 2:58amUnspecified abdominal painHydrocodone-Acetaminophen ([place]) 5-325 mg nppnnuLbxcwotqwlzw9FXKXCN7P as needed for ovub3184Idea 2018June 2018 5:46pmUnspecified abdominal painOndansetron 4 mg tablet,disintegrating Rhegjajdnvih2TYVNC6Q as needed for nausea and lyyrnpjt086Leaferr 2018 11:00pmOctober 2018 9:18pmAzithromycin (Zithromax Z-Camron) 250 mg tablet Rijvwdwfglhs027GKBBCdtfz389Byhjxkan 2018 12:00amNovember 2018 8:02pm Take as directed 2 tabs day one then 1 tab for next 4 daysAlbuterol Sulfate 90 mcg/actuation HFA aerosol cktmrzzNweejeiypbpb3XHZEYZYXCZCOKN2E as needed for shortness of breath or dmybmvmv72Vbemwntr 2018 12:00amApril 2019 10:38pmDicyclomine 10 mg xiiqlkxKhvjnqluuhwy02WBFSUgig times daily as needed for abdominal rshouloktp716Asjxmli 2019 12:30amApril 2019 4:59pm Lidocaine (Lidoderm) 5 % adhesive patch,bidppinezUlcbamaihkuk6CBURMRYCHDXLYrjvt as needed for dkcl584Qpfiyiuk 2019 12:00amApril 2019 4:59pmleave on most painful area for up to 12 hrsOndansetron 4 mg tablet,disintegrating Jdqyeofzrydh1UFYUT9J as needed for nausea and buculkkx051Wtpichot 2019 12:00amMarch 2019 10:19pmOmeprazole 20 mg capsule,delayed release(DR/EC) Clqwtfeiutwi57EIBIDnvkpXogbl 2019 11:00pmMay 2022 2:02amDiphenoxylate- Atropine (Lomotil) 2.5-0.025 mg rvkoahPnklxisonptf5JXZTQKqwex daily as needed for cyciakdp9820Gbn 2019 11:00pmAugust 2019 1:06amViral infection, unspecifiedDicyclomine 20 mg rtbegsHwhnpqdpfikt04HBZFTztz times puxgy545Nnq 2019 11:00pmJuly 2019 9:36pmOndansetron 4 mg tablet,disintegrating Jqjrkuavkmkq5XRKQgezzm 6 to 8 hours as needed for nausea and gjmyyxhl856Lly 2019 11:00pmJuly 2019 9:36pmDiazepam (Valium) 5 mg tablet Kimhfymgovyb6ZEIRYytla daily as needed for zyuouxa0501Nrge 2019 11:00pm November 10, 2019 7:04pmAnxiety disorder, unspecified Adjustment disorder with depressed moodOndansetron Hcl (Zofran) 4 mg tablet Wewxlyricjcx2PXNOQ0J as needed for nausea and tnjptslr6090Nlcavhotl 2019 11:52pmOctober 2019 9:09pmPolyethylene Glycol 3350 (Miralax) 17 gram Powder In OrjbanYpayldjlzzpm25AURZFinmf as needed for Asxnysetxaks93Ijvyzowdr 10th, 2020 11:00pmOct2019 9:09pmmix into 4-8 oz. of any hot/cold/room temp. beverage; use immediatelyPromethazine 25 mg IumesmOhvlbaqlfcue25BNONT4R as needed for Terkjs437Xmxzqothw 2019 11:00pmOctober 2019 9:09pm Hihrzjp-Ehuaculxnacsp-Kgxjrvcv (Excedrin Extra Strength) 250-250-65 mg Tablet Enrzrhqihcsq2WAYMNMAAYZ 4-6 HOURS as needed for PainOctober 2019 11:00pm January 08, 2020 9:08pmSulfamethoxazole-Trimethoprim (Bactrim Ds) 800-160 mg eqvtorInmmavcnpjfz7VJWEZErpnx pymac4593Tvqrwwc 8th, 2020 11:00pmOctober 2019 11:13pmDicyclomine 20 mg xyezeoJzkneucwrigv33XUZTItgsf times daily as needed for abdominal vonnsjkgeo865Vidlraz 11th, 2020 11:00pmNov2019 12:41pmPromethazine 25 mg uemvlkgldzvHskhcajrjiti01DEWCN7Z as needed for nausea and fhyxuwga830Zqfwpkp 11th, 2020 11:00pmDecemb2019 7:27pmDicyclomine 20 mg OsirbhOvajluftvhdt18PPUEDqhc times ftgzt275Ygfnfhq 18th, 2020 11:00pm March 18, 2020 7:32pmOndansetron 4 mg Tablet,PcrlwtgxawmojpIintpasrjnrn9JP POevery 6 to 8 hours as needed for Drkdch163Nkotdoy 18th, 2020 11:00pmDecemb2019 9:32pmNaproxen (Naprosyn) 500 mg qlknswZcnmwoxtyfgz835WKHIU64Z as needed for hjvf192Kefvnskn 2019 12:00amDecember 2019 7:27pm Ondansetron Hcl (Zofran) 4 mg yrfphgRxasejbpduft1ESMS5 to 4 times per day as needed for nausea and uikuivwb964Hgxbdgpe 2019 12:00amDecember 2019 9:32pmFluticasone Propionate 50 mcg/actuation spray,rzcidblzqkHshqpmwiedon1ALVMX JFNBXAHJWQN86K962Jzylzfkw 31st, 2020 12:00amFebruary 2020 9:06pmadminister into each nostrilCarbamide Peroxide (Debrox) 6.5 % vzspfNbwntvyklcxm6MCYPL EAR-RIGHTTwice mecbb1148Iozcodcg2019 12:00amJanuary 2020 11:12am Azithromycin (Zithromax) 250 mg dtozizUgmmsrgalqqx090FDAGhwvrn081Mcurgcdn 31st, 2020 12:00amJanuary 2020 11:12amFirst dose given in EDOndansetron Hcl (Zofran) 4 mg hpanfwMldsxoocpaxv9UZQHJpqis as needed for nausea and urexhgin504 May 29, 2020 12:00amAugust 2020 1:36amPromethazine 25 mg tablet Calnqjxajcvm24FFLLHlag times daily as needed for nausea and excgxtsq731Fgbjf 2nd, 2021 12:00amOctober 2020 6:20amDicyclomine 20 mg boucnpUxdpljsocvzi63 MGPOFour times wllrs853OgcgdMay 31, 2020 12:00amApril 2020 4:42pmClindamycin Hcl 150 mg asfbbjySshyoxdxohwi006AHZXJlojt times dhqfy9642Ppqj 2020 11:00pmAugust 2020 1:35amDicyclomine 20 mg OjmasmDdlnhenjeuuj43UFSJUrql times ndlvc425Xrjb 2020 11:00pmAugust 2020 1:36amOndansetron 4 mg Tablet,PsnkkqtdvltotnWnhqrmtvgaem7AWTYullvn 6 to 8 hours as needed for Dmduel441 October 28, 2020 11:00pmJuly 2021 1:07dvGmjhylhtnvvbnmr-Waccplaod-Ht (Bromfed Dm) 2-30-10 mg/5 mL rgizhKwldriynpotq8UXNYIwpl times daily as needed for cold qmvugetb3507Dcazdc 20th, 2021 11:00pmNovember 2020 9:58am Fluticasone Propionate (Flonase Allergy Relief) 50 mcg/actuation spray,qgorrxxnjsNsthnbsygqzd2GUSOYCZRZEJFZILWqjdh idzen402UgsqgkNovember 18, 2020 11:00pmNovember 2021 12:47amadminister into each nostrilOndansetron Hcl (Zofran) 4 mg qvsukjSkarcrcwgsnp8QDQXK9E as needed for nausea and tazdwzai4111 November 26, 2020 11:00pmOctober 2020 6:20amFerrous Sulfate (Iron (Ferrous Sulfate)) 325 mg (65 mg iron) mptkinRimvvcwitvtt408ZSFLPfzqt997Meplho 2020 11:00pmJanuary 2021 6:53pmHydrocodone-Acetaminophen 5-325 mg tablet Tklfbrisibfd8IASMILuec times daily as needed for jcbp959Wlkjfmtzd2020January 11, 2021 6:20amAbscess of labia Abscess of vulvaDoxycycline Hyclate 100 mg ojygbeQgbckoxjlsia416BBACTlubh daily 80907Xogncohhc2020 11:00pmOctober 2020 6:19amDoxycycline Hyclate 100 mg llaugvEgbqjpzxtqam154AJXAMxumd bldwq0183Bqyeqidnq 22nd, 2021 11:00pm January 11, 2021 6:19amPrednisone 50 mg facunkRvqjwfzywugc12RDIEOnbpp593 December 21, 2020 11:00pmOctober 2020 6:20amFluticasone Propionate (Flonase Allergy Relief) 50 mcg/actuation spray,foimvxaarpYevnvitfpluu9NCOSZ INTRANASALDaily as needed for allergy mgmqyrar836Qvvquhvrv 22nd, 2021 11:00pm January 11, 2021 6:20amadminister into each nostrilOndansetron Hcl (Zofran) 4 mg syoedrQjfkyqhudhwl2JGQRHkkda as needed for nausea and fhdvnnee4000Vzbiltvl 2020 12:00amDecember 2020 11:31amOxycodone-Acetaminophen (Percocet) 5-325 mg htlrndRwhurqvuvzns9LJOZIG3E as needed for nqls5680Bympyqej 2020February 27, 2021 9:58amMenorrhagia Excessive and frequent menstruation with regular cycleClindamycin Hcl 150 mg hbhhqqlZsceumeymqyr116RTHWU1E21327Qxjmcxjd 2020 11:00pmNovember 2020 9:58amNitrofurantoin Monohyd/M-Cryst (Macrobid) 100 mg NekzqlnNajyirkkdzkv761VX EHH34H741Qpggvnbw 2020 12:00amJanuary 2021 6:53pmmust administer with a meal/foodPromethazine-Codeine 6.25-10 mg/5 mL rgvflWdzdlldleuas9SVJQHIILT 4-6 HOURS as needed for yfvlu96101Pndqnuz 2021 12:00amJanuary 2021 6:54pmCOVID-19 COVID-19Naproxen (Naprosyn) 500 mg jxgncfInxjkluwwwbm891WYQFLnunk daily as needed for xsrg2032Brjmvcz 2021 12:00amFebruary 2021 8:53pm Doxycycline Hyclate 100 mg slzsugzWuzgkikfiend279OHPECwcsp patyh6449Ylozeio 2021 12:00amFebruary 2021 8:53pmClindamycin Hcl 150 mg capsule Pbkzuutcbtbx506MTYJH3B02352Kwbngdm 2021 12:00amJuly 2021 6:43am Azithromycin (Zithromax) 250 mg IgqwdxMptbifxhpedx152WCLVKxved75Tqdl 2021 11:00pmSeptember 2021 11:40pmone daily x 4 days, first dose given in ER Ondansetron 8 mg tablet,gepnsjryxicqulHffiqixguosv5LXQTF2O as needed for nausea and nyqxcvcf509Uqldds 2021 11:00pmOctober 2021 3:51amClindamycin Hcl 300 mg tsveidlLhxefqxxjztc743JACVU5R99321Czzswqfoz 2021 11:00pmSeptember 2021 11:40pmNaproxen 500 mg mnkrvlUmoyvdclrlej785JWGUGsqmh daily as needed for rgfe968Egbxufunc 2021 11:00pmOctober 2021 11:27pmIbuprofen 600 mg gfhsfcIfnfljlgmugu618RMFJW8G as needed for kcbx730Hixsrrb 2021 11:00pm April 09, 2022 2:33amOxycodone-Acetaminophen (Percocet) 5-325 mg tablet Hyjyukuhlpiw1QPVXGOxgvv times daily as needed for uqjz1867Knngpgx 2021February 16, 2022 12:47amSprain of right foot Unspecified sprain of right foot, initial encounterOndansetron Hcl 4 mg tablet Sgmtynnfwqgq8FKIZD7G as needed for Nausea And VomitingOctober 2021 11:00pm February 16, 2022 12:46amDicyclomine 20 mg btjinhFjbemuakpwol27SDTIRduu times prrxl029Ckcekoi 2021 11:00pmJanuary 2022 2:33amOndansetron 4 mg tablet,orfbbgiwhccjmzXzhitwxaitlu4ORWPujnyi 6 to 8 hours as needed for Qcmqpa698 January 28, 2022 11:00pmMarch 2022 4:24amFluticasone Propionate (Flonase Allergy Relief) 50 mcg/actuation spray,oormkakvzxNcjdvsyymeay7KKXVKEHNKORCSNR Twice daily as needed for Allergy SymptomsNovember 2021 12:46amJanuary 2022 2:33amadminister into each nostrilClindamycin Hcl 150 mg capsule Fshkmbnffrbc027SYFAY5N4347Yzkbcwpa 2021 12:00amJanuary 2022 2:33am Ibuprofen 600 mg gvijvvOefpeeyhilmg403JCOWQ3O as needed for jgld457Heqwsqls 2021 12:00amJanuary 2022 2:33amCyclobenzaprine 10 mg tablet Wnblkjezqctc31YRHUBlvkx times daily as needed for Muscle Iyrjg738Efwvikll 28th, 2022 12:00amJanuary 9, 2023 2:33amIbuprofen 600 mg evhmzyXdrekzqawfug258UERR Every 6 hours as needed for Lcqo148Aferhnjl 2021 12:00amJanuary 2022 2:33amdo not exceed 4 doses in a 24 hour periodOndansetron 4 mg tablet,jpbnrsxgsxbkedVygoqkhuxzyb1AYDLQ9O as needed for nausea and pcrgeptu814 July 26, 2022 11:00pmMay 2022 5:02amHydrocodone-Acetaminophen 5-325 mg tabletDiscontinued1 - 2BGUJTD3S as needed for undc5581AfaAugust 05, 2022Jun2022 11:56pmRadicular pain of right lower extremity Radiculopathy, site unspecifiedCyclobenzaprine 5 mg ocqocdJxfxggidqgsq1VTYCVozda times daily as needed for muscle ieyij895CqmAugust 04, 2022 11:00pmJune 2022 11:56pmPrednisone 20 mg zziehsAgkfsiqzcbhu40QVZFFjkut hrqduim0479Lit 6th, 2023 11:00pmJun2022 11:52pmadminister with food or milkIbuprofen 600 mg tablet Fdhponnvwvbr509MUHDH7O as needed for ijyq607Oik 2022 11:00pmJun2022 11:56pmCetirizine-Pseudoephedrine (Zyrtec-D) 5-120 mg tablet extended release 12 bbAhbzorgzgsda0TOKLHKfvki dailySeptember 06, 2022 11:00pmAugust 2022 1:44am Doxycycline Hyclate 100 mg xwqxjdmReasqzqwfuxj838HACPBmesy dailySeptember 06, 2022 11:00pmAugust 2022 1:43amfor 7 days, started 09/04/22Fluoxetine 10 mg iqtdhdpMmswgidiyjfv81CNEJOddamPyby 8th, 2023 11:00pmAugust 2022 4:53pm Propranolol 20 mg tabletDiscontinuedMGJune 2022 11:00pmJune 2022 11:56pmHyoscyamine Sulfate 0.125 mg tablet,disintegratingDiscontinued0.125MGPO Q6H as needed for abd painJune 2022 11:00pmAugust 2022 4:53pm Phenazopyridine (Pyridium) 100 mg tzwekuHglxqmvwldxw737YLNKW2A as needed for byhg296Eobx 2022 11:00pmAugust 2022 1:43amDoxycycline Hyclate 100 mg ubkohluMhyjntjthzdi580LSNQAdipd zhnom749Fmdj 2022 11:00pmAugust 2022 1:43amIbuprofen 800 mg kpalpoEetaoeycrhkz863THHJSlcuq times daily as needed for Lvwv399Dsca 2022 11:00pmAugust 2022 1:43amClindamycin Hcl 300 mg qgdtombIdlhwdcohufy852VWHKAzgf times jpgob908Ooke 2022 11:00pmAugust 2022 4:53pmErythromycin 500 mg evhwciYzenwijhrleu959QZTPUfcl times pqqms828Sotk 2022 11:00pmAugust 2022 1:44amIbuprofen 800 mg holvkxLlwvxncvpzwp005 MGPOThree times daily as needed for Kmks309Wxvh 2022 11:00pmAugust 2022 1:43amEstradiol (Estrace) 0.01 % (0.1 mg/gram) gdecyVrutshlcibkd8ENDNNZRBNO ZPNGUXNTwueh63.570August 2022 11:00pmDeceer 2022 7:39amfor 7 days Clindamycin Hcl 150 mg qbdytuvQpgomellensp939WTDGOvuvq icjhl6128Jkmanq 2022 11:00pmAugust 2022 1:43amLactobacillus Combination No.4 (Probiotic) 3 billion cell hjpirliCrorzlkifage6025RVI HPZVMPMJwzfv065Zkuxpj 2022 11:00pm November 25, 2022 4:53pmadminister with a mealNirmatrelvir-Ritonavir (Paxlovid) 300 mg (150 mg x 2)-100 mg tablets,dose cfbbRazdgbcwuigx7OJ.GVXJTAW635Xuphst 2022 11:00pmSeptember 2022 4:38amtake TWO 150 mg tablets of nirmatrelvir with ONE 100 mg tablet of ritonavir twice daily for 5 days Hydrocodone-Acetaminophen 5-325 mg tabletDiscontinued1 - 8RHBTKO4V as needed for tlez1232Yobcvh ugust 2022 4:53pmCOVID-19 Headache COVID-19 Headache, unspecifiedOxycodone 5 mg xbbxcqVpponmuuhhxo3KCALLilmf as needed for severe pain (scale score 7-10)550September 2022September 2022 2:25am Dental caries Dental caries, unspecifiedLisinopril 40 mg rqovsnWcxidbddpotk29HGJFOrrco10800 December 08, 2022 11:00pmAugust 2024 8:15pmClindamycin Hcl 150 mg jgzdxabBlpmyhsgyfkc205ERBVC7D3036Breltapca 2022 11:00pmDecember 2022 7:39amOndansetron Hcl 4 mg bthxhtLafgysqevetr9AFUEO2F as needed for nausea and rxjtvapt2206Kkcqzaqcp 9th, 2023 11:00pmDeceer 2022 7:40amOndansetron 4 mg tablet,fixwxidqyesiitKojqfruuiiox5NIEGlexpc 6 to 8 hours as needed for Spmpwb891 January 20, 2023 11:00pmFebruary 2023 5:12amHydrocortisone (Anusol-Hc) 2.5 % cream with perineal cdnukficloVojryqmmazur7CXFLEWLV0 times per zzc416 March 18, 2023 12:00amFebruary 2023 5:11amClindamycin Hcl 150 mg wahcfujSvdoevtauxwo110NUWBA6I0459Saqyzdx 2023 12:00amFebruary 2023 5:11amPromethazine 25 mg zdymjaRpsrvoovexda71DDZRVrphn times daily as needed for nausea and iwhydtqp4813Wtwhv 4th, 2024 12:00amSeptember 2023 2:11amNaproxen (Naprosyn) 500 mg mgcvptVqkqlqizugdk071UGEMOlusr daily as needed for qkys2905 June 03, 2023 12:00amApril 2023 6:36amOndansetron Hcl 4 mg tablet Kcpxnrflnmgh5DOPKypczu 6 to 8 hours as needed for nausea and vomitingMarch 2023 11:00pmNovember 2023 4:39amLidocaine (Lidoderm) 5 % adhesive patch,jwgoqiuiuRdpueowqywcz1ZQLMAXGGNJBMXflhb191Ovklz 2023 11:00pm December 05, 2023 2:10amleave on most painful area for up to 12 hrs Cyclobenzaprine 5 mg ownfgyUotqyyizqtci5TGUHY4K388Rkszf 2023 11:00pmJune 2023 3:09amClindamycin Hcl 150 mg nmrgszaXrjlqpmvlyuj367GMIMXzypg times vproo59908Xmsa 14th, 2024 11:00pmSeptember 2023 2:10amPropranolol 20 mg eodpsxKsaykiqyyrms47TBMRXccaaMflq 2023 11:00pmSept2023 2:11am Naproxen (Naprosyn) 500 mg cszadoXpmadjrcmjrz942ECDWOkdlj daily as needed for vrxx5883Htahmq 2023 11:00pmSept2023 2:10amNifedipine 30 mg tablet extended bhrnuvqEsmivt02JDFBQaleq806Mxkzgt 2023 11:00pmUnknown Clindamycin Hcl 300 mg yooykeeImjzlnkjdaij630DWGJOhlgh 8 nqgrj5032Kmoabiwnm 13th, 2024 11:00pmNovember 2023 4:39amHydrocodone-Acetaminophen 5-325 mg wjzisyXpkbdnlkmdhh2ZBPDNM0D as needed for ovdl579Dlydruku2023Nov2023 4:39amAbdominal pain Inflammation of small intestine Unspecified abdominal pain Noninfective gastroenteritis and colitis, unspecifiedOndansetron 4 mg tablet,eqtpjxupaypdwqKhrkfuzyyfql4VISWA4O as needed for nausea and efrcgtld476 February 10, 2024 12:00amFebruary 2024 5:45amHydrocodone-Homatropine 5- 1.5 mg/5 mL koarkQaveaoggleel4TJATQ4A as needed for mtpgg7025Gbsgdopq 2023May 10, 2024 5:45amBronchitis Bronchitis, not specified as acute or chronicAzithromycin (Zithromax) 250 mg cldaukSooapxgjwamt529TYIEyxkuj671Frrmnpqb 2023 12:00amMay 2024 12:14amFirst dose given in EDBenzonatate 100 mg senajjgLfrfzbtjupfe183XUCQ1-6 TIMES PER DAY as needed for qycrt805Bsjabotb 2024 12:00amMay 2024 12:14amLidocaine (Lidoderm) 5 % adhesive patch,djfyxkqpgXvfondvvryxa9GORPI TOPICALDaily as needed for iqng733Asmbcfbk 2024 12:00amMay 2024 12:14amleave on most painful area for up to 12 hrsAlbuterol Sulfate 90 mcg/actuation HFA aerosol pbbcfkeGbtokw1UASJNIADZTLMHW5M as needed for shortness of breath or zxmhgmbe84Cyvapenl 2024 12:00amadminister with spacerUnknown Meclizine 25 mg tcyezaMlhviz92FHJHYtkfm times daily as needed for Swyicdk923Aurw 2024 11:00pmUnknownCyclobenzaprine 10 mg xlkuoqPovmxf96XWUXT8J as needed for xawe1123Riggfsmwm 2024 2:31amUnknownOndansetron Hcl 4 mg tabletActive4 MGPOEvery 8 hours as needed for nausea and jrznwson379Ebofzhetj 2nd, 2025 2:31am Unknown Medical Equipment Device Date Implanted Device Details STENT CONTOUR 6FR X 22-30CM February 26, 2018 Procedures Procedure Date Performed Status XR chest 2V* November 15, 2024 7:09pm complet ed CT abdomen pelvis wo con December 04, 2024 1:4 1am completed XR chest 1V portable February 05, 2025 2:17am a ctive CT abdomen pelvis wo con November 12, 2024 6:23a m completed XR chest 2V* November 23, 2024 2:16am complet ed XR chest 2V* December 01, 2024 12:51am comp leted SARS-CoV-2, Influenza & RSV (PCR) December 01, 2024 completed Urine Culture December 01, 2024 completed US pelvic complete December 31, 2024 6:16am comp leted US transvaginal December 31, 2024 6:55am complet ed Relevant Diagnostic Tests and/or Laboratory Data Laboratory Results Test Collection Date/Time Result Date/Time Result Interpretation Reference Range Result Comment Performing Site Corrected White Blood Count November 12, 2024 7:18am November 12, 2024 7:33am 8.9 10*3/[facility]L [facility] [id number] [address] [place] [address] 21552Sjcybmxrn White Blood CountAugust 2024 6:48pmAugust 2024 7:10pm8.7 10*3/uL3.8-11.6FM[facility] [id number] [address] [place] [address] 69221Jojtechfg White Blood CountAugust 2024 2:15amAugust 2024 2:30am7.4 10*3/uL3.8-11.6[facility] [id number] [address] [place] [address] 94328Tdnlejkuy White Blood CountSeptember 2024 1:15amSeptember 2024 1:43am7.8 10*3/uL3.8-11.6FM[facility] [id number] [address] [place] [address] 83980Pgizpxgqn White Blood CountSeptember 2024 8:42pmSeptember 2024 9:03pm9.9 10*3/uL3.8-11.6[facility] [id number] [address] [place] [address] 97576Teeqnilom White Blood CountOctober 2024 11:00pmOctober 2024 11:13pm9.3 10*3/uL3.8-11.6FM[facility] [id number] [address] [place] [address] 30980Pelzpnikh White Blood CountOctober 2024 8:45pmOctober 2024 9:13pm7.9 10*3/uL3.8-11.6FM[facility] [id number] [address] [place] [address] 29696Iiamgcdye White Blood CountNovember 2024 2:17amNovember 2024 2:47am7.7 10*3/uL3.8-11.6[facility] [id number] [address] [place] [address] 80143Dvucfaqozkv WBC CountAugust 2024 7:18amAugust 2024 7:33am8.9 10*3/uL3.8-11.6[facility] [id number] [address] [place] [address] 50793Cfrqthjiarp WBC CountAugust 2024 6:48pmAugust 2024 7:10pm8.7 10*3/uL3.8-11.6[facility] [id number] [address] [place] [address] 45525Lovzogpmful WBC CountAugust 2024 2:15amAugust 2024 2:30am7.4 10*3/uL3.8-11.6[facility] [id number] [address] [place] [address] 55421Ufjneypfjqe WBC CountSeptember 2024 1:15amSeptember 2024 1:43am7.8 10*3/uL3.8-11.6[facility] [id number] [address] [place] [address] 52153Ksefmhwhfst WBC CountSeptember 2024 8:42pmSeptember 2024 9:03pm9.9 10*3/uL3.8-11.6[facility] [id number] [address] [place] [address] 92201Ggdzgityhed WBC CountOctober 2024 11:00pmOctober 2024 11:13pm9.3 10*3/uL3.8-11.6[facility] [id number] [address] [place] [address] 45210Cemvfyqkzwb WBC CountOctober 2024 8:45pmOctober 2024 9:13pm7.9 10*3/uL3.8-11.[address] [place] [address] Ctr [id number] [address] [place] [address] 31125Rcfddncprbf WBC CountNovember 2024 2:17amNovember 2024 2:47am7.7 10*3/uL3.8-11.6FM[facility] [id number] [address] [facility] 58415Eyr Blood CountAugust 2024 7:18amAugust 2024 7:33am 4.67 10*6/uL3.60-5.00[facility] [id number] [address] [facility] 97360Xdb Blood CountAugust 2024 6:48pmAugust 2024 7:10pm 4.85 10*6/uL3.60-5.00[facility] [id number] [address] [facility] 62898Mso Blood CountAugust 2024 2:15amAugust 2024 2:30am 4.32 10*6/uL3.60-5.00[facility] [id number] [address] [facility] 75808Bgo Blood CountSeptember 2024 1:15amSeptember 2024 1:43am4.31 10*6/uL3.60-5.00[facility] [id number] [address] [facility] 09162Qws Blood CountSeptember 2024 8:42pmSeptember 2024 9:03pm4.75 10*6/uL3.60-5.00[facility] [id number] [address] [place] [address] 68191Xxn Blood CountOctober 2024 11:00pmOctober 2024 11:13pm4.39 10*6/uL3.60-5.00[facility] [id number] [address] [place] [address] 55654Jzc Blood CountOctober 2024 8:45pmOctober 2024 9:13pm 4.61 10*6/uL3.60-5.00[facility] [id number] [address] [place] [address] 77151Lhk Blood CountNovember 2024 2:17amNovember 2024 2:47am4.49 10*6/uL3.60-5.00[facility] [id number] [address] [facility] 88604PmmuhrnpgkRajkym 2024 7:18amAugust 2024 7:33am14.4 g/dL11.8-15.4FM[facility] [id number] [address] [facility] 26610RnpxtokxjkEuyzyu 2024 6:48pmAugust 2024 7:10pm14.9 g/dL11.8-15.4FM[facility] [id number] [address] [facility] 01540WdrzcntkilAlpbiz 2024 2:15amAugust 2024 2:30am13.5 g/dL11.8-15.[address] [place] [address] Ctr [id number] [address] [place] [address] 85497AxisozbdcoWozvrllvp 2024 1:15amSeptember 2024 1:43am 13.5 g/dL11.8-15.4FM[facility] [id number] [address] [place] [address] 97996StmiksgbxdBnxsmcojm 2024 8:42pmSeptember 2024 9:03pm14.5 g/dL11.8-15.4FM[facility] [id number] [address] [place] [address] 44969OgobaiepiaHnadwmm 2024 11:00pmOctober 2024 11:13pm 13.7 g/dL11.8-15.4FM[facility] [id number] [address] [place] [address] 43193XzuuzdarmgJrhfdge 2024 8:45pmOctober 2024 9:13pm14.3 g/dL11.8-15.4FM[facility] [id number] [address] [place] [address] 18443XhpipfsbfxJhbmnjtk 2024 2:17amNovember 2024 2:47am 13.8 g/dL11.8-15.4FM[facility] [id number] [address] [place] [address] 09425ObwbythgcbXgsrdw 2024 7:18amAugust 2024 7:33am41.7 %34.0-46.4FM[facility] [id number] [address] [facility] 71290EmoqihwccwHkfuqg 2024 6:48pmAugust 2024 7:10pm43.5 %34.0-46.4FM[facility] [id number] [address] [facility] 47014ZzufnkbffdSvshpr 2024 2:15amAugust 2024 2:30am38.3 %34.0-46.4FM[facility] [id number] [address] [facility] 49828EixlvhygqkAxgcflulu 2024 1:15amSeptember 2024 1:43am 38.5 %34.0-46.4FM[facility] [id number] [address] [facility] 24422HutxudeebwKnhgvdfpf 2024 8:42pmSeptember 2024 9:03pm42.2 %34.0-46.4FM[facility] [id number] [address] [facility] 85477ByqkvgilqoOpgaqqf 2024 11:00pmOctober 2024 11:13pm 39.4 %34.0-46.4FM[facility] [id number] [address] [facility] 42613HfetftulcsVyhdvpv 2024 8:45pmOctober 2024 9:13pm40.8 %34.0-46.4FM[facility] [id number] [address] [facility] 75805RuhspqrxhhVzicfbib 2024 2:17amNovember 2024 2:47am 40.0 %34.0-46.4FM[facility] [id number] [address] [facility] 57392Wuys Corpuscular VolumeAugust 2024 7:18amAugust 2024 7:33am89.3 jW55-479HcpnwjdpcSamaritan [facility] [id number] [address] [facility] [place] [address]Gkna Corpuscular VolumeAugust 2024 6:48pmAugust 2024 7:[address] Ctr [id number] [address] [facility] 63279Rhse Corpuscular VolumeAugust 2024 2:15amAugust 2024 2:[address] Ctr [id number] [address] [facility] 54901Vjop Corpuscular VolumeSeptember 2024 1:15amSeptember 2024 1:43[address] Ctr [id number] [address] [place] [address] 47212Sdbs Corpuscular VolumeSeptember 2024 8:42pmSeptember 2024 9:03pm[address] Ctr [id number] [address] [place] [address] 73295Bkim Corpuscular VolumeOctober 2024 11:00pmOctober 2024 11:[address] Ctr [id number] [address] [place] [address] 97445Esyy Corpuscular VolumeOctober 2024 8:45pmOctober 2024 9:[address] Ctr [id number] [address] [place] [address] 47247Nnci Corpuscular VolumeNovember 2024 2:17amNovember 2024 2:[address] Ctr [id number] [address] [place] [address] 41658Rbcw Corpuscular HemoglobinAugust 2024 7:18amAugust 2024 7:33am30.8 pg24.7-34.3FMercy [facility] [id number] [address] [place] [address] 64278Ivbp Corpuscular HemoglobinAugust 2024 6:48pmAugust 2024 7:10pm30.7 pg24.7-34.3FMercy [facility] [id number] [address] [place] [address] 65875Dvqy Corpuscular HemoglobinAugust 2024 2:15amAugust 2024 2:30am31.2 pg24.7-34.3FMercy [facility] [id number] [address] [place] [address] 40654Iorh Corpuscular HemoglobinSeptember 2024 1:15amSeptember 2024 1:43am31.3 pg24.7-34.[address] [place] [address] Ctr [id number] [address] [place] [address] 27557Hnsw Corpuscular HemoglobinSeptember 2024 8:42pmSeptember 2024 9:03pm30.4 pg24.7-34.[address] [place] [address] Ctr [id number] [address] [place] [address] 50368Pasn Corpuscular HemoglobinOctober 2024 11:00pmOctober 2024 11:13pm31.2 pg24.7-34.[address] [place] [address] Ctr [id number] [address] [place] [address] 38873Lawz Corpuscular HemoglobinOctober 2024 8:45pmOctober 2024 9:13pm30.9 pg24.7-34.[address] [place] [address] Ctr [id number] [address] [place] [address] 19118Uosv Corpuscular HemoglobinNovember 2024 2:17amNovember 2024 2:47am30.7 pg24.7-34.[address] [place] [address] Ctr [id number] [address] [place] [address] 95622Uigz Corpuscular Hemoglobin ConcentAugust 2024 7:18am November 12, 2024 7:33am34.6 g/dL32.0-35.0[facility] [id number] [address] [place] [address] 27148Hcjs Corpuscular Hemoglobin ConcentAugust 2024 6:48pm November 15, 2024 7:10pm34.2 g/dL32.0-35.0[facility] [id number] [address] [place] [address] 17416Uwvk Corpuscular Hemoglobin ConcentAugust 2024 2:15am November 23, 2024 2:30am35.3 g/dLAbove high .0-35.0[facility] [id number] [address] [place] [address] 13602Bxhy Corpuscular Hemoglobin ConcentSeptember 2024 1:15am December 01, 2024 1:43am35.0 g/dL32.0-35.0[facility] [id number] [address] [place] [address] 30716Pscz Corpuscular Hemoglobin ConcentSeptember 2024 8:42pm December 14, 2024 9:03pm34.3 g/dL32.0-35.0[facility] [id number] [address] [place] [address] 71732Ktue Corpuscular Hemoglobin ConcentOctober 2024 11:00pm December 30, 2024 11:13pm34.7 g/dL32.0-35.0[facility] [id number] [address] [place] [address] 68352Oklx Corpuscular Hemoglobin ConcentOctober 2024 8:45pm January 03, 2025 9:13pm34.9 g/dL32.0-35.0[facility] [id number] [address] [place] [address] 55668Hhiz Corpuscular Hemoglobin ConcentNovember 2024 2:17am February 05, 2025 2:47am34.4 g/dL32.0-35.0[facility] [id number] [address] [place] [address] 73502Uzw Cell Distribution WidthAugust 2024 7:18amAugust 2024 7:33am13.9 %11.9-15.3[facility] [id number] [address] [place] [address] 38705Fgt Cell Distribution WidthAugust 2024 6:48pmAugust 2024 7:10pm13.7 %11.9-15.3[facility] [id number] [address] [place] [address] 44936Hav Cell Distribution WidthAugust 2024 2:15amAugust 2024 2:30am13.7 %11.9-15.3[facility] [id number] [address] [facility] 46015Kod Cell Distribution WidthSeptember 2024 1:15amSeptember 2024 1:43am13.9 %11.9-15.3FM[facility] [id number] [address] [place] [address] 20923Urc Cell Distribution WidthSeptember 2024 8:42pmSeptember 2024 9:03pm13.7 %11.9-15.3[facility] [id number] [address] [place] [address] 47904Drc Cell Distribution WidthOctober 2024 11:00pmOctober 2024 11:13pm13.6 %11.9-15.3[facility] [id number] [address] [place] [address] 23722Gqn Cell Distribution WidthOctober 2024 8:45pmOctober 2024 9:13pm13.8 %11.9-15.3[facility] [id number] [address] [place] [address] 48912Dvz Cell Distribution WidthNovember 2024 2:17amNovember 2024 2:47am13.4 %11.9-15.3[facility] [id number] [address] [place] [address] 05035Ihecfbgv CountAugust 2024 7:18amAugust 2024 7:33am 395 10*3/qY418-987PkvhjarrhSamaritan [facility] [id number] [address] [place] [address] 57463Nahnffwi CountAugust 2024 6:48pmAugust 2024 7:10pm 420 10*3/jW993-163GwjqpnjcaSamaritan North Health Center [facility] [id number] [address] [place] [address] 23281Meyjcfdv CountAugust 2024 2:15amAugust 2024 2:30am 335 10*3/aL407-833TpglslpafSamaritan North Health [facility] [id number] [address] [place] [address] 84317Jzyfwhcs CountSeptember 2024 1:15amSeptember 2024 1:56ln033 10*3/qH369-891WcwqzseuzSamaritan North Health Center [facility] [id number] [address] [facility] 11925Pxeezdmb CountSeptember 2024 8:42pmSeptember 2024 9:15ve899 10*3/hS051-182NjaalsnacSamaritan North Health Center Ctr [id number] [address] [facility] 40747Gyrctumc CountOctober 2024 11:00pmOctober 2024 11:75wy582 10*3/fX331-642IlneeapvpSamaritan North Health Center [facility]tr [id number] [address] [facility] 12805Vuqyimsi CountOctober 2024 8:45pmOctober 2024 9:13pm 429 10*3/pA173-780HwwvporudSamaritan North Health Center [facility] [id number] [address] [facility] 93860Fokkcfvt CountNovember 2024 2:17amNovember 2024 2:11ki872 10*3/sD264-341Mtfsjqhcv[address] [place] [address] Ctr [id number] [address] [facility] 73267Qbet Platelet VolumeAugust 2024 7:18amAugust 2024 7:33am8.1 fL6.3-10.7FMercy [facility] Hospital Ctr [id number] [address] [facility] 43721Ubhy Platelet VolumeAugust 2024 6:48pmAugust 2024 7:10pm8.2 fL6.3-10.7FMercy Memorial Hospital Ctr [id number] [address] [facility] 57005Ybjw Platelet VolumeAugust 2024 2:15amAugust 2024 2:30am7.9 fL6.3-10.7FMercy Memorial Hospital Ctr [id number] [address] [facility] 72233Xdxx Platelet VolumeSeptember 2024 1:15amSeptember 2024 1:43am8.2 fL6.3-10.7FMercy Memorial Hospital Ctr [id number] [address] [facility] 85138Scbu Platelet VolumeSeptember 2024 8:42pmSeptember 2024 9:03pm8.0 fL6.3-10.7FMercy Memorial Hospital Ctr [id number] [address] [facility] 22883Cten Platelet VolumeOctober 2024 11:00pmOctober 2024 11:13pm7.6 fL6.3-10.7FMercy Memorial Hospital Ctr [id number] [address] [facility] 19404Joxe Platelet VolumeOctober 2024 8:45pmOctober 2024 9:13pm8.1 fL6.3-10.7FMercy Memorial Hospital Ctr [id number] [address] [facility] 27935Tvfh Platelet VolumeNovember 2024 2:17amNovember 2024 2:47am8.2 fL6.3-10.7FMercy Memorial Hospital Ctr [id number] [address] [facility] 23447Pmbpkybz Distribution WidthAugust 2024 7:18amAugust 2024 7:33am19.11 %0.00-20.00[facility] [id number] [address] [facility] 90590Pkhiyivm Distribution WidthAugust 2024 6:48pmAugust 2024 7:10pm20.08 %Above high normal0.00-20.00For adults in ED, MDW > 20.0 may be associated with a higher risk of sepsis during the first 12 hrs of [facility] [id number] [address] [facility] [address]Rzzpufhd Distribution WidthAugust 2024 2:15amAugust 2024 2:30am18.89 %0.00-20.00[facility] [id number] [address] [facility] 6[address]Mcduwfyh Distribution WidthSeptember 2024 1:15amSeptember 2024 1:43am21.43 %Above high normal0.00-20.00For adults in ED, MDW > 20.0 may be associated with a higher risk of sepsis during the first 12 hrs of hospital [facility] [id number] [address] [facility] [address]Ifzfwpvf Distribution WidthSeptember 2024 8:42pmSeptember 2024 9:03pm18.08 %0.00-20.00[facility] [id number] [address] [facility] [address]123Seanjjpt Distribution WidthOctober 2024 11:00pmOctober 2024 11:13pm17.39 %0.00-20.00[facility] [id number] [address] [facility] [address]Gscbrsmc Distribution WidthOctober 2024 8:45pmOctober 2024 9:13pm17.59 %0.00-20.00[facility] [id number] [address] [facility] [address]67Xkugscyj Distribution WidthNovember 2024 2:17amNovember 2024 2:47am20.09 %Above high normal0.00-20.00For adults in ED, MDW > 20.0 may be associated with a higher risk of sepsis during the first 12 hrs of hospital [facility] [id number] [address] [facility] [address]36Mjnoeuhxaax (%) (Auto)November 12, 2024 7:18amAugust 2024 7:33am48.8 %.[facility] [id number] [address] [facility] 81547Yqiwlrgczbi (%) (Auto)November 15, 2024 6:48pmAugust 2024 7:10pm55.5 %.[facility] [id number] [address] [facility] 68691Flybmeoobzf (%) (Auto)November 23, 2024 2:15amAugu2024 2:30am55.7 %.[facility] [id number] [address] [facility] 15184Nigyzdqxpqi (%) (Auto)December 01, 2024 1:15amSept2024 1:43am55.3 %.[facility] [id number] [address] [facility] 88041Xfhvezhhbrm (%) (Auto)December 14, 2024 8:42pmSeptember 2024 9:03pm67.1 %.[facility] [id number] [address] [facility] [place] [address]Ygxceerjixw (%) (Auto)December 30, 2024 11:00pmOctober 2024 11:13pm58.4 %.[facility] [id number] [address] [facility] [place] [address]Swznepunbkl (%) (Auto)January 03, 2025 8:45pmOctober 2024 9:13pm60.9 %.[facility] [id number] [address] [facility] [place] [address]Xcyblrnzddp (%) (Auto)February 05, 2025 2:17amNovember 2024 2:47am51.6 %.[facility] [id number] [address] [facility] [address]Mllyfrcqofm (%) (Auto)November 12, 2024 7:18amAugust 2024 7:33am39.2 %.[facility] [id number] [address] [facility] [place] [address]Gshfdzljpix (%) (Auto)November 15, 2024 6:48pmAugust 2024 7:10pm33.6 %.[facility] [id number] [address] [facility] [place] [address]Xqsobusvfci (%) (Auto)November 23, 2024 2:15amAugust 2024 2:30am33.7 %.[facility] [id number] [address] [facility] [place] [address]Oaebjototax (%) (Auto)December 01, 2024 1:15amSeptember 2024 1:43am33.6 %.[facility] [id number] [address] [facility] [place] [address]Dvqqeuqvuhc (%) (Auto)December 14, 2024 8:42pmSeptember 2024 9:03pm23.9 %.[facility] [id number] [address] [facility] [place] [address]Lguzrkcdqlr (%) (Auto)December 30, 2024 11:00pmOctober 2024 11:13pm30.1 %.[facility] [id number] [facility] [facility] [place] [address]Ixdizuulazl (%) (Auto)January 03, 2025 8:45pmOctober 2024 9:13pm28.6 %.[facility] [id number] [address] [facility] [place] [address]Urqohwnwooc (%) (Auto)February 05, 2025 2:17amNovember 2024 2:47am34.4 %.[facility] [id number] [address] [facility] [place] [address]Kjpacdpva (%) (Auto)November 12, 2024 7:18amAugust 2024 7:33am7.2 %.[facility] [id number] [address] [facility] [place] [address]Ztfiezmqu (%) (Auto)November 15, 2024 6:48pmAugust 2024 7:10pm7.8 %.[facility] [id number] [address] [facility] [place] [address]Wlfptatlf (%) (Auto)November 23, 2024 2:15amAugust 2024 2:30am5.7 %.[facility] [id number] [address] [facility] [place] [address]Suamnczlv (%) (Auto)December 01, 2024 1:15amSeptember 2024 1:43am6.7 %.[facility] [id number] [address] [facility] [place] [address]Gnlmwsmgf (%) (Auto)December 14, 2024 8:42pmSeptember 2024 9:03pm5.6 %.[facility] [id number] [address] [facility] [place] [address]Rjumznibp (%) (Auto)December 30, 2024 11:00pmOctober 2024 11:13pm6.6 %.[facility] [id number] [address] [facility] [place] [address]Nnizbrdqx (%) (Auto)January 03, 2025 8:45pmOctober 2024 9:13pm6.5 %.[facility] [id number] [address] [facility] [place] [address]Lqofljmlq (%) (Auto)February 05, 2025 2:17amNovember 2024 2:47am8.8 %.[facility] [id number] [address] [facility] [place] [address]Rgrxzfwvtpt (%) (Auto)November 12, 2024 7:18amAugust 2024 7:33am3.8 %.[facility] [id number] [address] [facility] [place] [address]Kmdfiuxmmff (%) (Auto)November 15, 2024 6:48pmAugust 2024 7:10pm2.6 %.[facility] [id number] [address] [facility] [place] [address]Rzljuylnmhr (%) (Auto)November 23, 2024 2:15amAugust 2024 2:30am4.3 %.[facility] [id number] [address] [facility] [place] [address]Vkyhvymyuha (%) (Auto)December 01, 2024 1:15amSeptember 2024 1:43am3.8 %.[facility] [id number] [address] [facility] [place] [address]Dfusrbscmzr (%) (Auto)December 14, 2024 8:42pmSeptember 2024 9:03pm2.9 %.[facility] [id number] [address] [facility] [place] [address]Actczmabzch (%) (Auto)December 30, 2024 11:00pmOctober 2024 11:13pm4.2 %.[facility] [id number] [address] [facility] [place] [address]Agkpwlrbvae (%) (Auto)January 03, 2025 8:45pmOctober 2024 9:13pm3.3 %.[facility] [id number] [address] [facility] [place] [address]Paqtxnhceya (%) (Auto)February 05, 2025 2:17amNovember 2024 2:47am4.2 %.[facility] [id number] [address] [facility] [place] [address]Ibhkwyqzb (%) (Auto)November 12, 2024 7:18amAugust 2024 7:33am1.0 %.[facility] [id number] [address] [facility] [place] [address]Knfushfrq (%) (Auto)November 15, 2024 6:48pmAugust 2024 7:10pm0.5 %.[facility] [id number] [address] [facility] [place] [address]Madyhmflb (%) (Auto)November 23, 2024 2:15amAugu2024 2:30am0.6 %.[facility] [id number] [address] [facility] [place] [address]Rmhudaotn (%) (Auto)December 01, 2024 1:15amSeptember 2024 1:43am0.6 %.[facility] [id number] [address] [facility] [place] [address]Flathbwrt (%) (Auto)December 14, 2024 8:42pmSeptember 2024 9:03pm0.5 %.[facility] [id number] [address] [facility] [place] [address]Ybnizwqvv (%) (Auto)December 30, 2024 11:00pmOctober 2024 11:13pm0.7 %.[facility] [id number] [address] [facility] [place] [address]Kqgywqiuw (%) (Auto)January 03, 2025 8:45pmOctober 2024 9:13pm0.7 %.[facility] [id number] [address] [facility] [place] [address]Zvkyjbdvt (%) (Auto)February 05, 2025 2:17amNovember 2024 2:47am1.0 %.[facility] [id number] [address] [facility] [place] [address]Jhkeysghn RBC Relative Count (auto)November 12, 2024 7:18am November 12, 2024 7:33am0.1 /100{WBC}[facility] [id number] [address] [facility] [address]Mjchhpcpz RBC Relative Count (auto)November 15, 2024 6:48pm November 15, 2024 7:10pm0.1 /100{WBC}0-0.5[facility] [id number] [address] [facility] [address]Rguleesqk RBC Relative Count (auto)November 23, 2024 2:15am November 23, 2024 2:30am0.3 /100{WBC}0-0.5[facility] [id number] [address] [facility] [address]Mekgaqirj RBC Relative Count (auto)December 01, 2024 1:15am December 01, 2024 1:43am0.1 /100{WBC}0-0.5[facility] [id number] [address] [facility] [address]Cribfzxob RBC Relative Count (auto)December 14, 2024 8:42pm December 14, 2024 9:03pm0.0 /100{WBC}0-0.5[facility] [id number] [address] [facility] [address]Qjbzkfgsw RBC Relative Count (auto)December 30, 2024 11:00pm December 30, 2024 11:13pm0.0 /100{WBC}0-0.5[facility] [id number] 1[address] [facility] [address]Vvpbilxyk RBC Relative Count (auto)January 03, 2025 8:45pm January 03, 2025 9:13pm0.0 /100{WBC}0-0.5[facility] [id number] [address] [facility] 169[address]Gxowntcox RBC Relative Count (auto)February 05, 2025 2:17am February 05, 2025 2:47am0.1 /100{WBC}0-0.5[facility] [id number] 1[address] [facility] [address]Uegqvsalkmm # (Auto)November 12, 2024 7:18amAugu2024 7:33am4.3 10*3/uL1.8-7.7FM[facility] [id number] [address] [facility] [address]Mpfuwdqpfvd # (Auto)November 15, 2024 6:48pmAugust 2024 7:10pm4.8 10*3/uL1.8-7.[address] [place] [address] Ctr [id number] [address] [place] [address]Dzeehoyehcd # (Auto)November 23, 2024 2:15amAugu2024 2:30am4.1 10*3/uL1.8-7.[address] [place] [address] Ctr [id number] [address] [place] [address] 97954Dbccfcsxkqo # (Auto)December 01, 2024 1:15amSeptember 2024 1:43am4.3 10*3/uL1.8-7.[address] [place] [address] Ctr [id number] [address] [place] [address]Wmmlvjszdqn # (Auto)December 14, 2024 8:42pmSeptember 2024 9:03pm6.7 10*3/uL1.8-7.[address] [place] [address] Ctr [id number] [address] [place] [address]Mjchcnndhif # (Auto)December 30, 2024 11:00pmOctober 2024 11:13pm5.5 10*3/uL1.8-7.[address] [place] [address] Ctr [id number] [address] [place] [address]Bwmanmttnbx # (Auto)January 03, 2025 8:45pmOctober 2024 9:13pm4.8 10*3/uL1.8-7.[address] [place] [address] Ctr [id number] [address] [place] [address] 94[address]Iavdwagtomg # (Auto)February 05, 2025 2:17amNovember 2024 2:47am4.0 10*3/uL1.8-7.[address] [place] [address] Ctr [id number] [address] [place] [address]Cwjtznjtmdd # (Auto)November 12, 2024 7:18amAugust 2024 7:33am3.5 10*3/uL1.00-4.8[facility] [id number] [address] [facility] [address]Dslvwqtsrrg # (Auto)November 15, 2024 6:48pmAugust 2024 7:10pm2.9 10*3/uL1.00-4.8[facility] [id number] [address] [facility] [address]Mqblinmkqoi # (Auto)November 23, 2024 2:15amAugust 2024 2:30am2.5 10*3/uL1.00-4.8[facility] [id number] [address] [facility] [address]Widqelnaunk # (Auto)December 01, 2024 1:15amSeptember 2024 1:43am2.6 10*3/uL1.00-4.8[facility] [id number] [address] [facility] [address]Vlepdspmjzo # (Auto)December 14, 2024 8:42pmSeptember 2024 9:03pm2.4 10*3/uL1.00-4.8[facility] [id number] [address] [place] [address]Qmowozbukpm # (Auto)December 30, 2024 11:00pmOctober 2024 11:13pm2.8 10*3/uL1.00-4.8[facility] [id number] [address] [place] [address] 027[address]Eoyclwcyukf # (Auto)January 03, 2025 8:45pmOctober 2024 9:13pm2.3 10*3/uL1.00-4.8[facility] [id number] [address] [place] [address]Koapobivlbl # (Auto)February 05, 2025 2:17amNovember 2024 2:47am2.6 10*3/uL1.00-4.8[facility] [id number] [address] [facility] [address]Fiekgxbrk # (Auto)November 12, 2024 7:18amAugust 2024 7:33am0.6 10*3/uL0.0-0.8[facility] [id number] [address] [facility] 14892Aakcwltao # (Auto)November 15, 2024 6:48pmAugust 2024 7:10pm0.7 10*3/uL0.0-0.8[facility] [id number] [address] [facility] 17685Ryihlpidr # (Auto)November 23, 2024 2:15amAugust 2024 2:30am0.4 10*3/uL0.0-0.8[facility] [id number] [address] [facility] 62[address]Fuhlguttl # (Auto)December 01, 2024 1:15amSeptember 2024 1:43am0.5 10*3/uL0.0-0.8[facility] [id number] [address] [facility] [address]Bunjdjsyb # (Auto)December 14, 2024 8:42pmSeptember 2024 9:03pm0.6 10*3/uL0.0-0.8[facility] [id number] [address] [facility] [address]Ofmtrtklq # (Auto)December 30, 2024 11:00pmOctober 2024 11:13pm0.6 10*3/uL0.0-0.8[facility] [id number] [address] [facility] [address]Lfmsbsarv # (Auto)January 03, 2025 8:45pmOctober 2024 9:13pm0.5 10*3/uL0.0-0.8[facility] [id number] [address] [facility] [address]Govrhmeph # (Auto)February 05, 2025 2:17amNovember 2024 2:47am0.7 10*3/uL0.0-0.8[facility] [id number] [address] [facility] [address]Umxljfdowck # (Auto)November 12, 2024 7:18amAugust 2024 7:33am0.3 10*3/uL0.0-0.45[facility] [id number] [address] [facility] [address]Vmjgasqnqvc # (Auto)November 15, 2024 6:48pmAugust 2024 7:10pm0.2 10*3/uL0.0-0.45[facility] [id number] [address] [facility] [address]Hcuxcnfdoyd # (Auto)November 23, 2024 2:15amAugust 2024 2:30am0.3 10*3/uL0.0-0.45[facility] [id number] [address] [facility] 95[address]Gpdimdrtoud # (Auto)December 01, 2024 1:15amSeptember 2024 1:43am0.3 10*3/uL0.0-0.45[facility] [id number] [address] [facility] [address]Ddpxqbtgbuh # (Auto)December 14, 2024 8:42pmSeptember 2024 9:03pm0.3 10*3/uL0.0-0.45[facility] [id number] [address] [facility] 78991Uaoxdckaxyv # (Auto)December 30, 2024 11:00pmOctober 2024 11:13pm0.4 10*3/uL0.0-0.45[facility] [id number] [address] [facility] [address]Ocwtboqpisc # (Auto)January 03, 2025 8:45pmOctober 2024 9:13pm0.3 10*3/uL0.0-0.45[facility] [id number] [address] [facility] [address]74Xkiycjtxlem # (Auto)February 05, 2025 2:17amNovember 2024 2:47am0.3 10*3/uL0.0-0.45[facility] [id number] [address] [facility] [address]18[address]Kjwusaivx # (Auto)November 12, 2024 7:18amAugust 2024 7:33am0.1 10*3/uL0.0-0.2[facility] [id number] [address] [facility] 77352Zeowviefz # (Auto)November 15, 2024 6:48pmAugust 2024 7:10pm0.0 10*3/uL0.0-0.2[facility] [id number] [address] [facility] 17758Dduzinqnh # (Auto)November 23, 2024 2:15amAugu2024 2:30am0.0 10*3/uL0.0-0.2[facility] [id number] [address] [facility] [address]Vxprehyay # (Auto)December 01, 2024 1:15amSeptember 2024 1:43am0.0 10*3/uL0.0-0.2[facility] [id number] [address] [facility] [address]Aoaqsuefd # (Auto)December 14, 2024 8:42pmSeptember 2024 9:03pm0.0 10*3/uL0.0-0.2[facility] [id number] [address] [place] [address] 68[address]Wbeskjoln # (Auto)December 30, 2024 11:00pmOctober 2024 11:13pm0.1 10*3/uL0.0-0.2FM[facility] [id number] [address] [place] [address]69[address]Breatjesn # (Auto)January 03, 2025 8:45pmOctober 2024 9:13pm0.1 10*3/uL0.0-0.2[facility] [id number] [address] [place] [address]13[address]Eelsxrked # (Auto)February 05, 2025 2:17amNovember 2024 2:47am0.1 10*3/uL0.0-0.2[facility] [id number] [address] [place] [address]Gmattmlcchf TimeAugust 2024 2:15amA2024 2:59am11.2 s9.0-12.9A hematocrit value greater than 55% may lead to inaccurate results in coagulation testing. Patientshaving hematocrit values >55% require a special collection tube for coagulation studies. Please contact the laboratory at [phone] for redraw instructions.[facility] [id number] [address] [facility] [address]Tjtwujelciq TimeNov2024 2:17amNove2024 3:15am11.4 s9.0-12.9A hematocrit value greater than 55% may lead to inaccurate results in coagulation testing. Patientshaving hematocrit values >55% require a special collection tube for coagulation studies. Please contact the laboratory at [phone] for redraw instructions.[facility] [id number] [address] [facility] [address]Iulhxihko Time International RatioAugust 2024 2:15am November 23, 2024 2:59am1.0INR Therapeutic Range A) Pre- and Peroperative OAT started two weeks before surgery. NOT HIP SURGERY: 1.5 - 2.5 HIP SURGERY: 2 - 3B) Primary and secondary prevention of venous THROMBOSIS: 2 - 3C) Active venous thrombosis, pulmonary embolismand prevention of recurrent venous thrombosis: 2 - 3D) Prevention of arterial thromboembolismincluding patients with mechanical heart valves: 3 - 4.5[facility] [id number] [address] [facility] [address]Gcuxhcnlb Time International RatioNoveer 2024 2:17am February 05, 2025 3:15am1.0INR Therapeutic Range A) Pre- and Peroperative OAT started two weeks before surgery. NOT HIP SURGERY: 1.5 - 2.5 HIP SURGERY: 2 - 3B) Primary and secondary prevention of venous THROMBOSIS: 2 - 3C) Active venous thrombosis, pulmonary embolismand prevention of recurrent venous thrombosis: 2 - 3D) Prevention of arterial thromboembolismincluding patients with mechanical heart valves: 3 - 4.5FM[facility] [id number] [address] [facility] [address]Eyhpd ColorAugust 2024 6:16amAugust 2024 6:40am ColorlessYellowSamaritan North Health Center [facility]tr [id number] [address] [facility] 09871Opjgw ColorAugust 2024 6:48pmAugust 2024 7:07pm ColorlessYelOhio[facility] [id number] [address] [facility] 9[address]Vdcwe ColorSeptember 2024 12:59amSeptember 2024 1:10amColorlessShelby [facility] [id number] [address] [facility] 500[address]Niqqw ColorSeptember 2024 1:08amSeptember 2024 1:34am Light-yellowS[facility] [id number] [address] [facility] 595[address]Trinj ColorSeptember 2024 1:59amSeptember 2024 2:24amLight-yellowShelby [facility] [id number] [address] [facility] [address]Wvfct ColorOctober 2024 8:30pmOctober 2024 9:52pm ColorlessYelOhioHealth [facility]in [facility] [id number] [address] [place] [address] 605[address]Rgphg AppearanceAugust 2024 6:16amAugust 2024 6:40amClearCSalem [facility] [id number] [address] [facility] 61402Qmwys AppearanceAugust 2024 6:48pmAugust 2024 7:07pmClearCSalem Regional Medical Center [facility] [id number] [address] [place] [address] 60[address]Ziajm AppearanceSeptember 2024 12:59amSeptember 2024 1:10amClearCleDayton [facility] [id number] [address] [facility] 34358Isdop AppearanceSeptember 2024 1:08amSeptember 2024 1:34amClearCleDayton [facility] Medical Center [facility] [id number] [address] [facility] 20659Cbyoh AppearanceSeptember 2024 1:59amSeptember 2024 2:24amClearCSalem Regional Medical [facility] [id number] [address] [facility] 039[address]Irfft AppearanceOctober 2024 8:30pmOctober 2024 9:52pmCloudyAbnormal (applies to non-numeric results)[facility] [id number] [address] [facility] 284[address]Nasur Specific GravityAugust 2024 6:16amAugust 2024 6:40am1.0061.001-1.030[facility] [id number] [address] [facility] 15925Qewgp Specific GravityAugust 2024 6:48pmAugust 2024 7:07pm1.0081.001-1.030[facility] [id number] [address] [facility] 40948Hnsbh Specific GravitySeptember 2024 12:59amSeptember 2024 1:10am1.0051.001-1.030[facility] [id number] [address] [facility] 92459Vsean Specific GravitySeptember 2024 1:08amSeptember 2024 1:34am1.0131.001-1.030[facility] [id number] [address] [facility] 77414Imfnp Specific GravitySeptember 2024 1:59amSeptember 2024 2:24am1.0141.001-1.030[facility] [id number] [address] [place] [address] 08647Olplj Specific GravityOctober 2024 8:30pmOctober 2024 9:52pm1.0131.001-1.030[facility] [id number] [address] [facility] 97845Sadrb pHAugust 2024 6:16amAugust 2024 6:40am5.5 5.0-9.0[facility] [id number] [address] [facility] 30150Duubq pHAugust 2024 6:48pmAugust 2024 7:07pm7.0 5.0-9.0[facility] [id number] [address] [facility] 31393Snzyw pHSeptember 2024 12:59amSeptember 2024 1:10am 5.55.0-9.0[facility] [id number] [address] [facility] 50285Dgiuq pHSeptember 2024 1:08amSeptember 2024 1:34am5.5 5.0-9.0[facility] [id number] [address] [facility] 09509Mywyi pHSeptember 2024 1:59amSeptember 2024 2:24am 5.55.0-9.0[facility] [id number] [address] [facility] 22497Wrbqk pHOctober 2024 8:30pmOctober 2024 9:52pm5.5 5.0-9.0[facility] [id number] [address] [facility] 65572Oarft Leukocyte EsteraseAugust 2024 6:16amAugust 2024 6:40amNegativeNegativeSamaritan North Health Center Ctr [id number] [address] [facility] 55456Bgkzu Leukocyte EsteraseAugust 2024 6:48pmAugust 2024 7:07pmNegativeNegativeSamaritan North Health Center [facility] [id number] [address] [facility] 36306Movst Leukocyte EsteraseSeptember 2024 12:59amSeptember 2024 1:10amNegativeNegativeSamaritan North Health Center [facility]tr [id number] [address] [facility] 28666Yanbj Leukocyte EsteraseSeptember 2024 1:08amSeptember 2024 1:34amNegativeNegativeSamaritan North Health Center [facility]tr [id number] [address] [facility] 67697Zqovy Leukocyte EsteraseSeptember 2024 1:59amSeptember 2024 2:24amNegativeNegativeSamaritan North Health Center [facility] [id number] [address] [facility] 79807Ojhnt Leukocyte EsteraseOctober 2024 8:30pmOctober 2024 9:52pmNegativeNegativeSamaritan North Health Center [facility] [id number] [address] [facility] 30438Mxggq NitriteAugust 2024 6:16amAugust 2024 6:40am NegativeNegativeFirelands [facility] [id number] [address] [facility] 85020Gxgbe NitriteAugust 2024 6:48pmAugust 2024 7:07pm NegativeNegativeFirelands [facility] [id number] [address] [facility] 40214Cqfxq NitriteSeptember 2024 12:59amSeptember 2024 1:10amNegativeNegativeFirelands [facility] [id number] [address] [facility] 27967Mwvse NitriteSeptember 2024 1:08amSeptember 2024 1:34amNegativeNegativeFirelands [facility] [id number] [address] [facility] 43434Vnzhc NitriteSeptember 2024 1:59amSeptember 2024 2:24amNegativeNegativeFirelands [facility] [id number] [address] [facility] 77989Krfyz NitriteOctober 2024 8:30pmOctober 2024 9:52pm NegativeNegativeFirelands [facility] [id number] [address] [place] [address] 69594Lmqqt ProteinAugust 2024 6:16amAugust 2024 6:40am Negative mg/dLNegativeFirelands [facility] [id number] [address] [facility] 11169Zhaie ProteinAugust 2024 6:48pmAugust 2024 7:07pm Negative mg/dLNegativeFirelands [facility] [id number] [address] [facility] 85902Eodfe ProteinSeptember 2024 12:59amSeptember 2024 1:10amNegative mg/dLNegativeFirelands [facility] [id number] [address] [facility] 27744Ihahz ProteinSeptember 2024 1:08amSeptember 2024 1:34amNegative mg/dLNegativeFirelands [facility] [id number] [address] [facility] 48653Cwzys ProteinSeptember 2024 1:59amSeptember 2024 2:24amNegative mg/dLNegativeFirMercy Health West Hospital [facility] [id number] [address] [facility] 41668Uxsii ProteinOctober 2024 8:30pmOctober 2024 9:52pm Negative mg/dLNegativeSamaritan North [facility] Center [facility] [id number] [address] [facility] [facility] [id number] Glucose (UA)November 12, 2024 6:16amAugu2024 6:40amNormal mg/dLNormalSamaritan [facility] [id number] [address] [facility] 85454Rvlit Glucose (UA)November 15, 2024 6:48pmAugust 2024 7:07pmNormal mg/dLNormalSamaritan North Health Center [facility] [id number] 1[address] [facility] 57367Gfugv Glucose (UA)December 01, 2024 12:59amSeptember 2024 1:10amNormal mg/dLNormalSamaritan North Health Center [facility] [id number] 1[address] [facility] 17007Wvsap Glucose (UA)December 04, 2024 1:08amSeptember 2024 1:34amNormal mg/dLNormalSamaritan North Health Center [facility] [id number] 1[address] [facility] 70730Uotbq Glucose (UA)December 15, 2024 1:59amSeptember 2024 2:24amNormal mg/dLNormalSamaritan North Health Center [facility] [id number] 1[address] [facility] 62508Tccew Glucose (UA)December 30, 2024 8:30pmOctober 2024 9:52pmNormal mg/dLNormalSamaritan North Health Center [facility] [id number] 1[address] [facility] 83324Etxxd KetonesAugust 2024 6:16amAugu2024 6:40am NegativeNegativeSamaritan North Health Center [facility]tr [id number] 1[address] [facility] 25598Agpil KetonesAugust 2024 6:48pmAugust 2024 7:07pm NegativeNegativeSamaritan North Health Center [facility] [id number] 1[address] [facility] 24602Rlpwd KetonesSeptember 2024 12:59amSeptember 2024 1:10amNegativeNegativeSamaritan North Health Center [facility] [id number] 1[address] [facility] 52158Lruwn KetonesSeptember 2024 1:08amSeptember 2024 1:34amNegativeNegativeSamaritan North Health Center [facility] [id number] 1[address] [facility] 01679Sivbq KetonesSeptember 2024 1:59amSeptember 2024 2:24amNegativeNegativeSamaritan North Health Center [facility] [id number] 1[address] [facility] 32218Gbshz KetonesOctober 2024 8:30pmOctober 2024 9:52pm NegativeNegativeSamaritan North Health [facility] [id number] 1[address] [facility] 87636Mqssq UrobilinogenAugust 2024 6:16amAugust 2024 6:40amNormal mg/dLNormalSamaritan North Health Center [facility] [id number] 1[address] [facility] 65442Bhgcm UrobilinogenAugust 2024 6:48pmAugust 2024 7:07pmNormal mg/dLNormalSamaritan North Health Center [facility] [id number] 1[address] [facility] 57941Ldlcb UrobilinogenSeptember 2024 12:59amSeptember 2024 1:10amNormal mg/dLNormalSamaritan North Health Center [facility] [id number] 1[address] [facility] 87551Zwnnz UrobilinogenSeptember 2024 1:08amSeptember 2024 1:34amNormal mg/dLNormalFirMer[facility] [id number] 1[address] [facility] 06382Hbexu UrobilinogenSeptember 2024 1:59amSeptember 2024 2:24amNormal mg/dLNormalSamaritan North Health Center [facility] [id number] 1[address] [facility] 24029Btbcb UrobilinogenOctober 2024 8:30pmOctober 2024 9:52pmNormal mg/dLNormalSamaritan North Health [facility] [id number] 1[address] [facility] 04971Ozwlt BilirubinAugust 2024 6:16amAugust 2024 6:40am NegativeNegativeFirelandFirstHealth [facility] [id number] 1[address] [facility] 95178Abxkb BilirubinAugust 2024 6:48pmAugust 2024 7:07pm [facility]Negative[facility] [id number] 1[address] [facility] 94839Oxxgd BilirubinSeptember 2024 12:59amSeptember 2024 1:10amNegativeNegativeSamaritan North Health [facility] [id number] 1[address] [facility] 74379Vhhfh BilirubinSeptember 2024 1:08amSeptember 2024 1:34amNegativeNegativeSamaritan North [facility] [id number] 1[address] [facility] 83630Dlbog BilirubinSeptember 2024 1:59amSeptember 2024 2:24amNegativeNegativeSamaritan North Health [facility] [id number] 1[address] [facility] 29778Uevdo BilirubinOctober 2024 8:30pmOctober 2024 9:52pm NegativeNegativeSamaritan North [facility] [id number] 1[address] [facility] 49655Ncwfo Occult BloodAugust 2024 6:16amAugust 2024 6:40am1+Above high normalNegativeSamaritan North [facility] [id number] 1[address] [facility] 99543Dzkbt Occult BloodAugust 2024 6:48pmAugust 2024 7:07pm1+Above high normalNegativeFirelands [facility] [id number] 1[address] [facility] 32904Qyjrx Occult BloodSeptember 2024 12:59amSeptember 2024 1:10am1+Above high normalNegativeSamaritan [facility] [id number] 1[address] [facility] 42592Gazox Occult BloodSeptember 2024 1:08amSeptember 2024 1:34am1+Above high normalNeg[facility] [id number] 1[address] [facility] 20886Fbzow Occult BloodSeptember 2024 1:59amSeptember 2024 2:24am1+Above high normalNegativeSamaritan [facility] [id number] 1[address] [facility] 27627Eynjd Occult BloodOctober 2024 8:30pmOctober 2024 9:52pm3+Above high normalNegativeSamaritan [facility] [id number] 1[address] [facility] 20679Iytao RBCAugust 2024 6:16amAugust 2024 6:26wy4-4 [HPF][address] [place] [address] Ctr [id number] 1[address] [facility] 04150Cvyri RBCAugust 2024 6:48pmAugust 2024 7:35ys7-8 [HPF]0-[address] [place] [address] Ctr [id number] 1[address] [facility] 29881Qxewy RBCSeptember 2024 12:59amSeptember 2024 1:11am 1-2 [HPF][address] Ctr [id number] 1[address] [facility] 39987Xeexj RBCSeptember 2024 1:08amSeptember 2024 1:47am1- 2 [HPF][address] Ctr [id number] 1[address] [facility] 38728Fukxc RBCSeptember 2024 1:59amSeptember 2024 2:35am 1-2 [HPF][address] Ctr [id number] 1[address] [facility] 59159Bouce RBCOctober 2024 8:30pmOctober 2024 9:58pm Innumerable [HPF]Above high normal[address] Ctr [id number] 1[address] [facility] 57085Iyxhv WBCAugust 2024 6:16amAugust 2024 6:41amNone seen [HPF]0-[address] [place] [address] Ctr [id number] [address] [facility] 15516Chpmo WBCAugust 2024 6:48pmAugust 2024 7:82ym3-2 [HPF]0-[address] [place] [address] Ctr [id number] 1[address] [facility] 10004Nuvgs WBCSeptember 2024 12:59amSeptember 2024 1:11am 1-2 [HPF]0-[address] [place] [address] Ctr [id number] 1[address] [facility] [place] [address]Bvyzc WBCSeptember 2024 1:08amSeptember 2024 1:47am1- 2 [HPF]0-[address] [place] [address] Ctr [id number] 1[address] [facility] 15852Fmhqx WBCSeptember 2024 1:59amSeptember 2024 2:35am 1-2 [HPF][address] Ctr [id number] 1[address] [facility] 55455Eyouw WBCOctober 2024 8:30pmOctober 2024 9:91ws79-05 [HPF]Above high normal0-[address] [place] [address] Ctr [id number] 1[address] [facility] 45961Xgthj Squamous Epithelial CellsAugust 2024 6:16amAugust 2024 6:20fn5-5 [HPF]0-[facility] [id number] [address] [facility] [place] [address]Gxocx Squamous Epithelial CellsAugust 2024 6:48pmAugust 2024 7:39of3-5 [HPF][address] Ctr [id number] 1[address] [facility] [place] [address]Jpmyi Squamous Epithelial CellsSeptember 2024 12:59am December 01, 2024 1:18zf4-2 [HPF][address] Ctr [id number] 1[address] [facility] [place] [address]Hruck Squamous Epithelial CellsSeptember 2024 1:08am December 04, 2024 1:99am2-9 [HPF][address] Ctr [id number] 1[address] [facility] 54984Urcei Squamous Epithelial CellsSeptember 2024 1:59am December 15, 2024 2:71id5-5 [HPF]Above high normal0-2FMer[facility] [id number] 1[address] [facility] 60854Nvlzh Squamous Epithelial CellsOctober 2024 8:30pmOctober 2024 9:61dd0-5 [HPF][facility]2FMer[facility] [id number] 1[address] [facility] 24398Dgbpf BacteriaAugust 2024 6:16amAugust 2024 6:41am None seen [HPF]None [facility]enSam[facility] [id number] 1[address] [facility] 61851Mhzro BacteriaAugust 2024 6:48pmAugust 2024 7:11pm None seen [HPF]None [facility] [id number] 1[address] [facility] 22551Rcpdk BacteriaSeptember 2024 12:59amSeptember 2024 1:11amNone seen [HPF]None [facility] [id number] 1[address] [facility] 73149Syvwh BacteriaSeptember 2024 1:08amSeptember 2024 1:47amRare [HPF]None [facility] [id number] 1[address] [facility] 26131Bfxyc BacteriaSeptember 2024 1:59amSeptember 2024 2:35amRare [HPF]None [facility] [id number] 1[address] [facility] 31358Ltbzv BacteriaOctober 2024 8:30pmOctober 2024 9:58pm None seen [HPF]None [facility] [id number] 1[address] [facility] 57978Twrgl Hyaline CastsAugust 2024 6:16amAugust 2024 6:41amNone [LPF]0-8[facility] [id number] [address] [facility] 00983Pirbf Hyaline CastsAugust 2024 6:48pmAugust 2024 7:11pmNone [LPF]0-8[facility] [id number] 1[address] [facility] 11748Hvisr Hyaline CastsSeptember 2024 12:59amSeptember 2024 1:11amNone [LPF]0-8[facility] [id number] 1[address] [facility] 32219Hiybe Hyaline CastsSeptember 2024 1:08amSeptember 2024 1:60uk7-2 [LPF]0-8[facility] [id number] 1[address] [facility] 02361Riumj Hyaline CastsSeptember 2024 1:59amSeptember 2024 2:36en4-9 [LPF]0-8[facility] [id number] [address] [facility] 28749Cufmf Hyaline CastsOctober 2024 8:30pmOctober 2024 9:58pmNone [LPF]0-8[facility] [id number] 1[address] [facility] 12086Navnk Other CastsSeptember 2024 1:59amSeptember 2024 2:45ga3-0 [LPF]Above high normalNone [facility] [id number] 1[address] [facility] 78166Deedr MucusAugust 2024 6:16amAugust 2024 6:41amRare [LPF][facility] [id number] 1[address] [facility] 92513Wonbx MucusSeptember 2024 1:08amSeptember 2024 1:47am Rare [LPF][facility] [id number] 1[address] [facility] 78725Pjjmr MucusSeptember 2024 1:59amSeptember 2024 2:35amRare [LPF][facility] [id number] 1[address] [facility] 42574Lmlep MucusOctober 2024 8:30pmOctober 2024 9:58pmRare [LPF][facility] [id number] 1[address] [facility] 15378Yvzpomb LevelAugust 2024 7:18amAugust 2024 7:52am 103 mg/dLAbove high uekvyu18-818LYZ recommended reference rangeRandom Glucose Reference Range is dependent on time and content of last meal. Glucose of more than 200 mg/dL in a nonstressed, ambulatory subject supports the diagnosisof Diabetes Mellitus.[facility] [id number] 1[address] [facility] 42362Qauibvr LevelAugust 2024 6:48pmAugust 2024 7:30pm 115 mg/dLAbove high mmbgpi31-634DTE recommended reference rangeRandom Glucose Reference Range is dependent on time and content of last meal. Glucose of more than 200 mg/dL in a nonstressed, ambulatory subject supports the diagnosisof Diabetes Mellitus.[facility] [id number] 1[address] [facility] 52600Uphqkya LevelAugust 2024 2:15amAugust 2024 3:04am 126 mg/dLAbove high wkemlz01-501MEU recommended reference rangeRandom Glucose Reference Range is dependent on time and content of last meal. Glucose of more than 200 mg/dL in a nonstressed, ambulatory subject supports the diagnosisof Diabetes Mellitus.[facility] [id number] 1[address] [facility] 24278Gbmwmwk LevelSeptember 2024 1:15amSeptember 2024 2:07am93 mg/qQ56-486DUN recommended reference rangeRandom Glucose Reference Range is dependent on time and content of last meal. Glucose of more than 200 mg/dL in a nonstressed, ambulatory subject supports the diagnosisof Diabetes Mellitus.[facility] [id number] 1[address] [facility] 75467Zaytecf LevelSeptember 2024 8:42pmSeptember 2024 9:53ue036 mg/dLAbove high uhsglb87-269AMU recommended reference rangeRandom Glucose Reference Range is dependent on time and content of last meal. Glucose of more than 200 mg/dL in a nonstressed, ambulatory subject supports the diagnosisof Diabetes Mellitus.[facility] [id number] 1[address] [facility] 74555Ffktybs LevelOctober 2024 8:45pmOctober 2024 9:32pm 118 mg/dLAbove high jkofew80-546LRF recommended reference rangeRandom Glucose Reference Range is dependent on time and content of last meal. Glucose of more than 200 mg/dL in a nonstressed, ambulatory subject supports the diagnosisof Diabetes Mellitus.[facility] [id number] 1[address] [facility] 88428Jzrdeqe LevelNovember 2024 2:17amNovember 2024 3:05am 100 mg/aP40-350VEF recommended reference rangeRandom Glucose Reference Range is dependent on time and content of last meal. Glucose of more than 200 mg/dL in a nonstressed, ambulatory subject supports the diagnosisof Diabetes Mellitus. [facility] [id number] 1[address] [facility] 21679Sksjz Urea NitrogenAugust 2024 7:18amAugust 2024 7:52am18 mg/dL-[facility] [id number] [address] [place] [address] 62431Zpgck Urea NitrogenAugust 2024 6:48pmAugust 2024 7:30pm15 mg/dL-[facility] [id number] [address] [facility] 61188Gizgw Urea NitrogenAugust 2024 2:15amAugust 2024 3:04am12 mg/dL10-23[facility] [id number] 1[address] [facility] 15287Nrzcf Urea NitrogenSeptember 2024 1:15amSeptember 2024 2:07am14 mg/dL-[facility] [id number] [address] [place] [address] 97685Ibnvp Urea NitrogenSeptember 2024 8:42pmSeptember 2024 9:22pm18 mg/dL-[facility] [id number] [address] [facility] 98744Evntk Urea NitrogenOctober 2024 8:45pmOctober 2024 9:32pm16 mg/dL-[facility] [id number] [address] [facility] 99707Nwaxr Urea NitrogenNovember 2024 2:17amNovember 2024 3:05am16 mg/dL7-[facility] [id number] [address] [facility] 41488LjstlsbvqzWewmyq 2024 7:18amAugust 2024 7:52am0.74 mg/dL0.60-1.20[facility] [id number] [address] [facility] 61407WxmvqvxkjbGkcmsf 2024 6:48pmAugust 2024 7:30pm0.80 mg/dL0.60-1.20[facility] [id number] [address] [facility] 10854KksejevslfGyxsga 2024 2:15amAugust 2024 3:04am0.77 mg/dL0.60-1.20[facility] [id number] [address] [facility] 25997TzixvqepefPwsfdewil 2024 1:15amSeptember 2024 2:07am 0.68 mg/dL0.60-1.20[facility] [id number] [address] [facility] 71686KvvtdtvomxOuzhtikio 2024 8:42pmSeptember 2024 9:22pm1.04 mg/dL0.60-1.20[facility] [id number] [address] [facility] 06112MnhdvaudsnNsqvtih 2024 8:45pmOctober 2024 9:32pm0.69 mg/dL0.60-1.20[facility] [id number] [address] [facility] 93162WdzyaarsclJbagpstg 2024 2:17amNovember 2024 3:05am 0.75 mg/dL0.60-1.20[facility] [id number] [address] [facility] 99661Cruhlcjxh GFR (CKD-EPI)November 12, 2024 7:18amAugust 2024 7:52am> 60.0 mL/MinSamaritan North Health Center Ctr [id number] [address] [facility] 83759Unutjhwvs GFR (CKD-EPI)November 15, 2024 6:48pmAugust 2024 7:30pm> 60.0 mL/MinSamaritan [facility] Ctr [id number] [address] [facility] 10991Awbkzcael GFR (CKD-EPI)November 23, 2024 2:15amAugu2024 3:04am> 60.0 mL/MinSamaritan [facility]tr [id number] [address] [facility] 82509Szxgvtofz GFR (CKD-EPI)December 01, 2024 1:15amSept2024 2:07am> 60.0 mL/MinSamaritan [facility] Ctr [id number] 1[address] [facility] 88670Nfahjicuf GFR (CKD-EPI)December 14, 2024 8:42pmSeptember 2024 9:22pm> 60.0 mL/MinSamaritan [facility] [id number] 1[address] [facility] 27607Oqpskzxrx GFR (CKD-EPI)January 03, 2025 8:45pmOctober 2024 9:32pm> 60.0 mL/MinSamaritan [facility] [id number] [address] [facility] 29498Fnhziccsw GFR (CKD-EPI)February 05, 2025 2:17amNovember 2024 3:05am> 60.0 mL/MinSamaritan [facility] [id number] 1[address] [facility] 69706Lhwfee LevelAugust 2024 7:18amAugust 2024 7:72jz064 mmol/Y105-706IrljzfegqSamaritan North Health Center Ctr [id number] 1[address] [facility] 59887Gdshqn LevelAugust 2024 6:48pmAugust 2024 7:10ws516 mmol/A670-329IkkdkpwvxSamaritan North Health Center Ctr [id number] [address] [facility] 00005Tqbkic LevelAugust 2024 2:15amAugust 2024 3:73qf426 mmol/Q173-220GhgmbztcdSamaritan North Health Center Ctr [id number] [address] [facility] 46183Yejcgr LevelSeptember 2024 1:15amSeptember 2024 2:42at940 mmol/I964-240QjgtcnqhpSamaritan North Health Center Ctr [id number] [address] [facility] 85424Zdkfpo LevelSeptember 2024 8:42pmSeptember 2024 9:43bw062 mmol/G092-935LmtqfwjghSamaritan North Health Center Ctr [id number] [address] [facility] 44627Wkfslb LevelOctober 2024 8:45pmOctober 2024 9:39pw198 mmol/J803-226DhnqhrgevSamaritan North Health Center Ctr [id number] 1[address] [facility] 19776Umyppy LevelNovember 2024 2:17amNovember 2024 3:05am 137 mmol/X315-137JvnkhbgajSamaritan North Health Center Ctr [id number] [address] [place] [address] 52411Fvkivvifn LevelAugust 2024 7:18amAugust 2024 7:52am 3.5 mmol/L3.5-5.1FMercy [facility] [id number] 1[address] [facility] 58041Mspduqgqq LevelAugust 2024 6:48pmAugust 2024 7:30pm 3.7 mmol/L3.5-5.1FMercy Memorial Hospital C[facility] [id number] 1[address] [facility] 22863Fiblthifv LevelAugust 2024 2:15amAugust 2024 3:04am 3.5 mmol/L3.5-5.1Hemolysis is present at a level that could interfere with the result.Contact lab if redraw is requiredSamaritan North Health Center Ctr [id number] 1[address] [facility] 58039Uvjrfspqx LevelSeptember 2024 1:15amSeptember 2024 2:07am3.5 mmol/L3.5-5.1FMercy Memorial Hospital [facility] [id number] 1[address] [facility] 35472Krpvzhuzx LevelSeptember 2024 8:42pmSeptember 2024 9:22pm3.4 mmol/LBelow low normal3.5-5.1FMercy Memorial Hospital C[facility] [id number] 1[address] [facility] 23305Aywirfzbj LevelOctober 2024 8:45pmOctober 2024 9:32pm 3.6 mmol/L3.5-5.1FMercy Memorial Hospital C[facility] [id number] 1[address] [facility] 15661Jxpfbqkuk LevelNovember 2024 2:17amNovember 2024 3:05am3.6 mmol/L3.5-5.1FMercy Memorial Hospital [facility] [id number] 1[address] [facility] 98753Fpckcooz LevelAugust 2024 7:18amAugust 2024 7:52am 102 mmol/U14-873TcvjxrbhvSamaritan North Health Center Ctr [id number] [address] [facility] 83534Fcgxejwd LevelAugust 2024 6:48pmAugust 2024 7:30pm 101 mmol/P48-703PdqdihdqhSamaritan North Health Center Ctr [id number] [address] [facility] 63844Darbdwnz LevelAugust 2024 2:15amAugust 2024 3:04am 105 mmol/U34-837YsnyhedgzSamaritan North Health Center Ctr [id number] [address] [facility] 98437Bwsyryqb LevelSeptember 2024 1:15amSeptember 2024 2:72df543 mmol/O35-480EbivoaeixSamaritan North Health Center Ctr [id number] [address] [facility] 91935Mjtoqrmh LevelSeptember 2024 8:42pmSeptember 2024 9:08vc692 mmol/A86-051AalxcaopfSamaritan North Health Center Ctr [id number] [address] [facility] 87653Hmiligpk LevelOctober 2024 8:45pmOctober 2024 9:32pm 103 mmol/R83-576KzbnnvtneSamaritan North Health Center Ctr [id number] [address] [facility] 63962Lioicthc LevelNovember 2024 2:17amNovember 2024 3:38mh925 mmol/U00-758QzsecavhqSamaritan North Health Center Ctr [id number] 1[address] [facility] 49988Diityk Dioxide LevelAugust 2024 7:18amAugust 2024 7:52am26.8 mmol/L21.0-31.0[facility] [id number] [address] [facility] 26251Tregqv Dioxide LevelAugust 2024 6:48pmAugust 2024 7:30pm28.4 mmol/L21.0-31.0[facility] [id number] [address] [facility] 92937Qykngy Dioxide LevelAugust 2024 2:15amAugust 2024 3:04am27.7 mmol/L21.0-31.0[facility] [id number] [address] [facility] 80185Awuoxw Dioxide LevelSeptember 2024 1:15amSeptember 2024 2:07am25.8 mmol/L21.0-31.0[facility] [id number] [address] [facility] 37163Zwlwmj Dioxide LevelSeptember 2024 8:42pmSeptember 2024 9:22pm28.4 mmol/L21.0-31.0[facility] [id number] [address] [facility] 66974Dqkhkh Dioxide LevelOctober 2024 8:45pmOctober 2024 9:32pm26.4 mmol/L21.0-31.0[facility] [id number] [address] [facility] 09090Hzfcwe Dioxide LevelNovember 2024 2:17amNovember 2024 3:05am26.6 mmol/L21.0-31.0[facility] [id number] [address] [facility] 46699Ncclq GapAugust 2024 7:18amAugust 2024 7:52am12.7 mEq/L6.0-15.0[facility] [id number] [address] [facility] 61933Wumko GapAugust 2024 6:48pmAugust 2024 7:30pm13.3 mEq/L6.0-15.0[facility] [id number] [address] [facility] 94251Yixov GapAugust 2024 2:15amAugust 2024 3:04am11.8 mEq/L6.0-15.0[facility] [id number] [address] [facility] 22660Fjjtq GapSeptember 2024 1:15amSeptember 2024 2:07am 12.7 mEq/L6.0-15.0[facility] [id number] [address] [facility] 93153Fdopw GapSeptember 2024 8:42pmSeptember 2024 9:22pm 15.0 mEq/L6.0-15.0[facility] [id number] [address] [facility] 76010Htwnn GapOctober 2024 8:45pmOctober 2024 9:32pm12.2 mEq/L6.0-15.0[facility] [id number] [address] [facility] 69488Cqowm GapNovember 2024 2:17amNovember 2024 3:05am13.0 mEq/L6.0-15.0[facility] [id number] [address] [facility] 01164Zeqqurq LevelAugust 2024 7:18amAugust 2024 7:52am 9.3 mg/dL8.6-10.3FMercy [facility] [id number] 1[address] [facility] 70112Dqwevea LevelAugust 2024 6:48pmAugust 2024 7:30pm 10.1 mg/dL8.6-10.3FMercy Memorial Hospital [facility] [id number] 1[address] [facility] 11921Azukjet LevelAugust 2024 2:15amAugust 2024 3:04am 9.4 mg/dL8.6-10.3FMercy Memorial Hospital [facility] [id number] 1[address] [facility] 57159Rkfxslj LevelSeptember 2024 1:15amSeptember 2024 2:07am9.8 mg/dL8.6-10.3FMercy [facility] [id number] 1[address] [facility] 88912Szblcjc LevelSeptember 2024 8:42pmSeptember 2024 9:22pm10.1 mg/dL8.6-10.3FMercy [facility] [id number] 1[address] [facility] 78136Chzsyiq LevelOctober 2024 8:45pmOctober 2024 9:32pm 9.9 mg/dL8.6-10.3FMercy [facility] [id number] 1[address] [facility] 67461Urfojou LevelNovember 2024 2:17amNovember 2024 3:05am 9.5 mg/dL8.6-10.3FMercy [facility] [id number] 1[address] [facility] 94505Nptqv ProteinAugust 2024 7:18amAugust 2024 7:52am 7.7 g/dL6.4-8.9[facility] [id number] [address] [facility] 70733Mwoag ProteinAugust 2024 6:48pmAugust 2024 7:30pm 8.2 g/dL6.4-8.9[facility] [id number] [address] [facility] 87013Rrkfh ProteinSeptember 2024 8:42pmSeptember 2024 9:22pm7.7 g/dL6.4-8.9[facility] [id number] [address] [facility] 45521Wunqj ProteinOctober 2024 8:45pmOctober 2024 9:32pm 7.9 g/dL6.4-8.9[facility] [id number] [address] [place] [address] 47015Follf ProteinNovember 2024 2:17amNovember 2024 3:05am 7.5 g/dL6.4-8.9[facility] [id number] [address] [facility] 18975RzmdohhEqhemi 2024 7:18amAugust 2024 7:52am4.4 g/dL 3.5-5.7FMercy [facility] [id number] [address] [place] [address] 63442CkfbjnnIhxcea 2024 6:48pmAugust 2024 7:30pm4.7 g/dL 3.5-5.7FMercy [facility] [id number] [address] [place] [address] 76802LuzejciQqehwlpyu 2024 8:42pmSeptember 2024 9:22pm 4.6 g/dL3.5-5.7FMercy [facility] [id number] [address] [place] [address] 74172LgfvpdlNnuqwte 2024 8:45pmOctober 2024 9:32pm4.6 g/dL 3.5-5.7FMercy [facility] [id number] [address] [place] [address] 84349ZeuuttdLxhjzsmy 2024 2:17amNovember 2024 3:05am4.5 g/dL3.5-5.7FMercy [facility] [id number] [address] [place] [address] 71752XeucpkvoYohfrr 2024 7:18amAugust 2024 7:52am3.3 g/dLSamaritan [facility] [id number] [address] [place] [address] 09703KjkvfvfoYozbrp 2024 6:48pmAugust 2024 7:30pm3.5 g/dLSamaritan North Health Center Ctr [id number] [address] [place] [address] [id number] 2024 8:42pmSeptember 2024 9:22pm 3.1 [facility] [id number] [address] [place] [address] 42036YdklrdzgTztoeew 2024 8:45pmOctober 2024 9:32pm3.3 g/dLSamaritan [facility] [id number] [address] [facility] 81203LjsnvzcfVslikaeq 2024 2:17amNovember 2024 3:05am3.0 g/dLSamaritan [facility] [id number] [address] [facility] 56814Siiebgu/Globulin RatioAugust 2024 7:18amAugust 2024 7:52am1.3FMer[facility] [id number] [address] [facility] 64073Aroknbq/Globulin RatioAugust 2024 6:48pmAugust 2024 7:30pm1.3FMercy [facility] [id number] [address] [place] [address] 79254Tbwzuuv/Globulin RatioSeptember 2024 8:42pmSeptember 2024 9:22pm1.5FMercy [facility] [id number] [address] [place] [address] 81251Mlbucix/Globulin RatioOctober 2024 8:45pmOctober 2024 9:32pm1.4FMercy [facility] Hospital [facility] [id number] [address] [place] [address] 95956Ednoork/Globulin RatioNovember 2024 2:17amNovember 2024 3:05am1.5FMercy Memorial Hospital [facility] [id number] [address] [place] [address] 47317Qqboz BilirubinAugust 2024 7:18amAugust 2024 7:52am 0.3 mg/dL0.3-1.0[facility] [id number] [address] [place] [address] 88055Yuxhg BilirubinAugust 2024 6:48pmAugust 2024 7:30pm 0.3 mg/dL0.3-1.0[facility] [id number] [address] [facility] 29866Pfjnp BilirubinSeptember 2024 8:42pmSeptember 2024 9:22pm0.4 mg/dL0.3-1.0[facility] [id number] [address] [facility] 63939Luwsa BilirubinOctober 2024 8:45pmOctober 2024 9:32pm 0.3 mg/dL0.3-1.0[facility] [id number] [address] [facility] 85977Ssnzj BilirubinNovember 2024 2:17amNovember 2024 3:05am0.2 mg/dLBelow low normal0.3-1.0[facility] [id number] [address] [facility] 45225Aipxgb BilirubinAugust 2024 7:18amAugust 2024 7:52am0.00 mg/dLBelow low normal0.03-0.18If the DBIL is less than 0.1, IBIL is not able to becalculated.[facility] [id number] [address] [facility] 28287Kuwtjm BilirubinSeptember 2024 8:42pmSeptember 2024 9:22pm0.10 mg/dL0.03-0.18FMercy [facility] [id number] [address] [facility] 27398Neyzgfvy BilirubinAugust 2024 7:18amAugust 2024 7:52am0.3 mg/dLSamaritan [facility] [id number] [address] [facility] 34090Exkeldyr BilirubinSeptember 2024 8:42pmSeptember 2024 9:22pm0.3 mg/dLSamaritan [facility] [id number] [address] [facility] 11743Exgohwbhi Amino Transf (AST/SGOT)November 12, 2024 7:18amAugu2024 7:52am17 U/Q26-59InjqjzckuSamaritan North Health Center [facility]tr [id number] [address] [facility] 80344Adlaybugp Amino Transf (AST/SGOT)November 15, 2024 6:48pmAugust 2024 7:30pm18 U/E56-14JrwudtgrgSamaritan North Health Center Ctr [id number] [address] [facility] 64139Vwgryucnv Amino Transf (AST/SGOT)December 14, 2024 8:42pm December 14, 2024 9:22pm16 U/W24-04TgfevmeqpSamaritan North Health Center [facility] [id number] [address] [facility] 93242Ecrcmxqeo Amino Transf (AST/SGOT)January 03, 2025 8:45pm January 03, 2025 9:32pm16 U/U47-47IeiatccddSamaritan North Health Center Ctr [id number] [address] [facility] 46999Uvlgdvkra Amino Transf (AST/SGOT)February 05, 2025 2:17am February 05, 2025 3:05am17 U/S33-76OylcwxuflSamaritan North Health Center Ctr [id number] [address] [facility] 15609Eelwnbp Aminotransferase (ALT/SGPT)November 12, 2024 7:18am November 12, 2024 7:52am21 U/L7-52[facility] [id number] [address] [facility] 08856Eiouirf Aminotransferase (ALT/SGPT)November 15, 2024 6:48pm November 15, 2024 7:30pm21 U/L7-52[facility] [id number] [address] [place] [address] 26426Avvpaxh Aminotransferase (ALT/SGPT)December 14, 2024 8:42pm December 14, 2024 9:22pm19 U/L7-52[facility] [id number] [address] [facility] 58718Emvgvfw Aminotransferase (ALT/SGPT)January 03, 2025 8:45pm January 03, 2025 9:32pm17 U/L7-52[facility] [id number] [address] [place] [address] 64791Tqclwie Aminotransferase (ALT/SGPT)February 05, 2025 2:17am February 05, 2025 3:05am19 U/L7-52[facility] [id number] [address] [facility] 49026Tsjzgjoj PhosphataseAugust 2024 7:18amAugust 2024 7:52am96 U/W91-396VdahduswiSamaritan North Health Center Ctr [id number] [address] [facility] 74385Vtleninn PhosphataseAugust 2024 6:48pmAugust 2024 7:37he416 U/Y40-234UaflvaxgaSamaritan North Health Center Ctr [id number] [address] [facility] 78175Vnuzznxj PhosphataseSeptember 2024 8:42pmSeptember 2024 9:22pm89 U/K66-733UowlrwztwSamaritan North Health Center Ctr [id number] [address] [facility] 77445Mmekuxmu PhosphataseOctober 2024 8:45pmOctober 2024 9:32pm85 U/Y74-204PsvnvowgvSamaritan North Health Center Ctr [id number] [address] [place] [address] 66467Qdlimhho PhosphataseNovember 2024 2:17amNovember 2024 3:05am91 U/H60-760WdekkwufjSamaritan North Health Center Ctr [id number] [address] [place] [address] 17038RcxtesKrlsom 2024 7:18amAugust 2024 7:52am80.0 U/L 11.0-82.0[facility] [id number] [address] [place] [address] 33325RcflnzNswxnazbo 2024 8:42pmSeptember 2024 9:22pm 86.0 U/LAbove high geycci66.0-82.0[facility] [id number] [address] [facility] 50269Ygzay Creatine KinaseAugust 2024 6:48pmAugust 2024 7:47sg422 U/S75-287AlvydwshiSamaritan North Health Center Ctr [id number] [address] [facility] 20236Rbgjmqya I High SensitivityAugust 2024 6:48pmAugust 2024 7:36pm4 ng/L0-15The Troponin units of report have been changed to meet the Chest Pain Accreditation requirement, element EC5.M1l2. Troponin units are changed from pg/ml to ng/L. Also, the decimal is removed and results are in whole numbers.[facility] [id number] [address] [facility] 47373Wghgfpgl I High SensitivityAugust 2024 3:52amAugust 2024 4:27am4 ng/L0-15The Troponin units of report have been changed to meet the Chest Pain Accreditation requirement, element EC5.M1l2. Troponin units are changed from pg/ml to ng/L. Also, the decimal is removed and results are in whole numbers.[facility] [id number] [address] [facility] 74061Fdliebzu I High SensitivitySeptember 2024 1:15amSeptember 2024 2:14am4 ng/L0-15The Troponin units of report have been changed to meet the Chest Pain Accreditation requirement, element EC5.M1l2. Troponin units are changed from pg/ml to ng/L. Also, the decimal is removed and results are in whole numbers.[facility] [id number] [address] [facility] 93797Tcixneuj I High SensitivityNovember 2024 2:17amNovember 2024 3:12am4 ng/L0-15The Troponin units of report have been changed to meet the Chest Pain Accreditation requirement, element EC5.M1l2. Troponin units are changed from pg/ml to ng/L. Also, the decimal is removed and results are in whole numbers.[facility] [id number] [address] [facility] 81840F-Deyl Natriuretic PeptideAugust 2024 2:15amAugust 2024 2:57am93.0 pg/mL5-100[facility] [id number] [address] [facility] 33317E-Yohz Natriuretic PeptideNovember 2024 2:17amNovember 2024 3:12am5.0 pg/mL5-100[facility] [id number] [address] [facility] 85888Verdpgtg Creatinine Clearance (ChemAugust 2024 7:18am [place] 2024 7:52am93.59[facility] [id number] [address] [facility] 69613Hbuwjanv Creatinine Clearance (ChemAugust 2024 6:48pm November 15, 2024 7:30pm86.57[facility] [id number] [address] [facility] 15794Aagaznck Creatinine Clearance (ChemAugust 2024 2:15am November 23, 2024 3:04am92.52[facility] [id number] [address] [facility] 34037Vemxxnns Creatinine Clearance (ChemSeptember 2024 1:15am December 01, 2024 2:85yj683.85[facility] [id number] [address] [facility] 78713Ftezmtjg Creatinine Clearance (ChemSeptember 2024 8:42pm December 14, 2024 9:22pm68.06[facility] [id number] [address] [facility] 87007Hizkeanq Creatinine Clearance (ChemOctober 2024 8:45pm January 03, 2025 9:97ho746.21[facility] [id number] [address] [facility] 97055Tensjqlj Creatinine Clearance (ChemNovember 2024 2:17am February 05, 2025 3:05am93.86[facility] [id number] [address] [facility] 13277GZVY-NtY-6 Rapid RNA (RT-PCR)(LAB)December 01, 2024 12:30am December 01, 2024 1:33amNegativeNegativeThis is a duplicate CepePARid Xpert Xpress CoV-2/Flu/RSV Plus RNA by RT-PCR result to be used for statistical tracking purpose only.[facility] [id number] [address] [facility] [address]006 Microbiology Results Procedure Source Result Collection Date/Time Result Date/Time Result Comment Performing Site Urine Culture Urine, Clean-Voided Midstream Corynebacterium coyleae December 01, 2024 10:35pm December 04, 2024 7:59am [facility] [id number] [address] [facility] 92470VKTB-GyM-4, Influenza & RSV (PCR)NasopharyngealSeptember 2024 1:30amSeptember 2024 2:32[facility] [id number] [address] [place], [place] [address] Diagnostic Imaging Reports Author Oscar Roche [facility] HealthAuthoredAugust 2024 7:46amReportDictated Date/TimeDictated ByStatusRadiology ReportAugust 2024 7:46amOscar Roche [facility] AssociationompleteA[facility] [place] [address] [place], [place] [address] CT Scan Report Signed Patient: Elvira Sneed MR#: [id number] : 1975 Acct:[id number] Age/Sex: 49 / F ADM Date: 5 Loc: ER Room: Type: [facility] ER Attending Dr: Copies to: Denver Hess DO~ Ordering Provider: Denver Hess DO Date of Service: 11/12/24 CT/CT abdomen pelvis wo con: R flank pain CT ABDOMEN AND PELVIS WITHOUT INTRAVENOUS CONTRAST: CLINICAL HISTORY: Right flank pain, urinary frequency COMPARISON: 11/03/2024 TECHNIQUE: Spiral images were obtained through the abdomen and pelvis without intravenous contrast. This CT exam was performed using one or more following dose reduction techniques: Automated exposure control, adjustment of the mA and/or kV according to patient size, or use of iterative reconstruction technique. FINDINGS: Minor hypoventilatory change within lung bases. Evaluation degraded by the lack of contrast. 4 mm right lower pole renal calculus, nonobstructive. No hydronephrosis. Kidneys symmetric in size. Otherwise the liver, spleen, adrenals, kidneys, and pancreas are unremarkable. Mild retained stool throughout the colon. Colonic diverticulosis noted. A ppendix unremarkable. Solitary Ovoid intraluminal density within the cecum possible ingested medication Tubal ligation. Otherwise uterus and adnexal regions unremarkable. Bladder unremarkable. No free air or free fluid. Multilevel facet arthropathy lumbar spine. Tiny fat-containing umbilical hernia. CT/CT abdomen pelvis wo con IMPRESSION: Right lower pole calculus, nonobstructive. Negative hydronephrosis or obstructive uropathy. Negative acute inflammatory process or bowel obstruction. Colonic diverticulosis. Impression dictated by: Oscar Roche M.D. 11/12/2024 7:50 AM Dictation Location: RADIO-PC-26 Transcribed By: MARCELA 11/12/24749 Dictated By: Oscar Roche MD 11/12/2446 Signed By: <Electronically signed by Oscar Roche MD in OV> 11/12/24 075 Author Noe Hoyos [facility] HealthAuthoredAunorthern navajo medical centert 2024 8:30pmReportDictated Date/TimeDictated ByStatusRadiology ReportAugust 2024 8:30pmNoe Hoyos II [facility] [place] [address] [place] [address] XRay Report Signed Patient: Elvira Sneed MR#: [id number] : 1975 Acct:[id number] Age/Sex: 49 / F ADM Date: 5 Loc: ER Room: Type: [facility] ER Attending Dr: Copies to: Severo Aponte DO~ Ordering Provider: Severo Aponte DO Date of Service: 11/15/24 XR/XR chest 2V*: Dizziness XR chest 2V* 11/15/2024 8:17 PM SIGNS AND SYMPTOMS: Dizziness, chest pain, right-sided numbness and tingling PROTOCOL: Frontal and lateral radiograph of the chest COMPARISON: 09/01/2024 FINDINGS: The trachea is midline. The heart and mediastinal structures are within normal limits. The lung parenchyma is clear. The bony thorax is intact. Degenerative changes are noted in the shoulders and thoracic spine. XR/XR chest 2V* IMPRESSION: No acute cardiopulmonary pathology. Impression dictated by: Noe Hoyos M.D. 11/15/2024 8:32 PM Dictation Location: RADIO-PC-17 Transcribed By: MARCELA 11/15/242031 Dictated By: Noe Hoyos II, MD 11/15/242029 Signed By: <Electronically signed by Noe Hoyos II, MD in OV> 11/15/242031 Author Kingsley Perales [facility] HealthAutEm[facility] 2024 8:19amReportDictated Date/TimeDictated ByStatusRadiology ReportAugust 2024 8:19amJeclint Perales [facility] Main [address] [address] XRay Report Signed Patient: Elvira Sneed MR#: [id number] : 1975 Acct:[id number] Age/Sex: 49 / F ADM Date: 5 Loc: ER Room: Type: [facility] ER Attending Dr: Copies to: Denver Hess DO~ Ordering Provider: Denver Hess DO Date of Service: 11/23/24 XR/XR chest 2V*: Chest Pain Plain film chest 2 view HISTORY: Chest pain for one hour COMPARISON: 11/15/2024 FINDINGS: SUPPORT DEVICES: None POSTSURGICAL CHANGES: None HEART: Within normal limits PULMONARY BEATRICE: Within normal limits MEDIASTINUM: Unremarkable LUNGS AND PLEURA: No acute lung process, pleural effusion or pneumothorax identified. Minor basilar interstitial changes BONY STRUCTURES: Degenerative change ADDITIONAL FINDINGS None XR/XR chest 2V* IMPRESSION: No acute process. Impression dictated by: Kingsley Perales M.D. 11/23/2024 8:19 AM Dictation Location: [facility]16 Transcribed By: [facility] 11/23/24818 Dictated By: Kingsley Perales DO 11/23/24818 Signed By: <Electronically signed by Kingsley Perales DO in OV> 11/23/24 08 Author Uriel Cleaning [facility] HealthAuthoredSeptember 2024 9:28amReport Dictated Date/TimeDictated ByStatusRadiology ReportSeptember 2024 9:28am Uriel Cleaning Jr [facility] Main [address] [address] XRay Report Signed Patient: Elvira Sneed MR#: [id number] : 1975 Acct:[id number] Age/Sex: 49 / F ADM Date: 5 Loc: ER Room: Type: [facility] ER Attending Dr: Copies to: Rebecca Marmolejo MD~ Ordering Provider: Rebecca Marmolejo MD Date of Service: 12/01/24 XR/XR chest 2V*: Headache Chest 2 views CLINICAL HISTORY: Headache not feeling well for 3 days COMPARISON: Chest 11/23/2024 FINDINGS: Heart normal in size. Lungs are clear. No free air. XR/XR chest 2V* IMPRESSION: NO ACUTE CARDIOPULMONARY ABNORMALITY. Impression dictated by: Uriel Cleannig Jr., D.OSlade 12/01/2024 9:28 AM Dictation Location: [facility]-PC-23 Transcribed By: PWS 12/01/24927 Dictated By: Uriel Cleaning Jr, DO 12/01/24927 Signed By: <Electronically signed by Uriel Cleaning Jr, DO in OV> 12/01/24927 Author Uriel Cleaning [facility] HealthAuthoredSeptember 2024 8:42amReport Dictated Date/TimeDictated ByStatusRadiology ReportSept2024 8:42am Uriel Cleaning Jr DOcompMount Carmel [place] [address] CT Scan Report Signed Patient: Elvira Sneed MR#: [id number] : 1975 Acct:[id number] Age/Sex: 49 / F ADM Date: Loc: ER Room: Type: [facility] ER Attending Dr: Copies to: John Cortes Jr, MD~ Ordering Provider: John Cortes Jr, MD Date of Service: 12/04/24 CT/CT abdomen pelvis wo con: R flank pain, hx stones CT ABDOMEN AND PELVIS WITHOUT INTRAVENOUS CONTRAST: CLINICAL HISTORY: Right flank pain. History of kidney stones. COMPARISON: CT abdomen and pelvis 11/12/2024 TECHNIQUE: Spiral images were obtained through the abdomen and pelvis without intravenous contrast. This CT exam was performed using one or more following dose reduction techniques: Automated exposure control, adjustment of the mA and/or kV according to patient size, or use of iterative reconstruction technique. FINDINGS: Lung Bases: [Bibasilar atelectasis] Organs:Suboptimal evaluation due to lack of IV contrast. Gallbladder is contracted. Liver spleen pancreas and adrenal glands all appear unremarkable. Kidneys subtle punctate bilateral nephrolithiasis. No hydronephrosis. Abdominal aorta appears normal in caliber.[ GI: Stomach is grossly unremarkable. Small bowel appears nondilated. No acute colonic abnormality. Colonic diverticulosis.[ Pelvis:[Urinary bladder is grossly unremarkable. Tubal ligation clips. Uterus is grossly unremarkable.] Peritoneum/Retroperitoneum:No free air or free fluid or lymphadenopathy.[ Abd wall/Bones:Abdominal wall demonstrates no acute findings. Osseous structures demonstrate degenerative change.[ CT/CT abdomen pelvis wo con IMPRESSION: Subtle punctate bilateral nephrolithiasis. No obstructive uropathy. Impression dictated by: Uriel Cleaning Jr., D.OSlade 12/04/2024 8:51 AM Dictation Location: [place] [address] Transcribed By: [facility] 12/04/24 0851 Dictated By: Uriel Cleaning Jr, DO 12/04/24 0842 Signed By: <Electronically signed by Uriel Cleaning Jr, DO in OV> 12/04/24 0851 Author Uriel Cleaning [facility] HealthAuthoredOcteastern state hospital 2024 10:27amReportDictated Date/TimeDictated ByStatusRadiology ReportOctober 2024 10:27amJoseph Jr Hermila DOcompMount [facility] System [facility] [place] [address] [place] [address] Ultrasound Report Signed Patient: Elvira Sneed MR#: [id number] : 1975 Acct:[id number] Age/Sex: 49 / F ADM Date: 5 Loc: ER Room: Type: [facility] ER Attending Dr: Ordering Provider: John Cortes Jr, MD Date of Service: 12/31/24 US/US pelvic complete: postmenopausal bleeding ([id number]) US/US transvaginal: N95.0 Copies to: John Cortes Jr, MD~ Pelvic ultrasound. Reason for exam: Pelvic pain for 2 days. Comparison: none Technique: Transabdominal and transvaginal imaging of the uterus and ovaries was performed. Additional spectral Doppler analysis of the ovaries was also obtained. Findings: Uterus measures 8.2 x 4.7 x 5.4 cm. 2 fibroids are noted largest measuring 3.2 cm. Endometrium measures 4.6 mm without focal abnormality. Right ovary measures 3.4 x 4.3 x 3.4 cm. The left ovary measures 2.8 x 1.4 x 3.1 cm. 4 cm cyst right ovary. No adnexal mass. Normal arterial and venous Doppler waveforms the ovaries. US/US pelvic complete Impression: Fibroid uterus. 4 cm cyst right ovary. Repeat ultrasound in 6-12 weeks is suggested. Impression dictated by: Uriel Cleaning Jr., D.OSlade 12/31/2024 10:35 AM Dictation Location: [place] [address] Tech: Sneha Blue Transcribed By: MARCELA 12/31/24 1035 Dictated By: Uriel Cleaning Jr, DO 12/31/24 1027 Signed By: <Electronically signed by Uriel Cleaning Jr, DO in OV> 12/31/24 1035 Vital Signs Vital Reading Result Reference Range Collection Date/Time Height 63 [in_i] November 12, 2024 6:08piLpzdll97.18 kgAugust 2024 6:10amBody Temperature 97.6 [degF]97.6-99.0August 2024 6:10amHeart Rate88 /tgi91-428Bfmniy 14th, 2025 6:10amRespiratory rate18 /cha65-59Eyoohh 2024 6:10amOxygen saturation by Pulse ikcmztzt05 %95-100August 2024 6:10amBP Sluycjsl978 mm[Hg]100-140 November 12, 2024 6:10amBP Elcppqlos19 mm[Hg]60-100August 2024 6:10am Iummwu54 [in_i]November 15, 2024 6:64ziUcgeir75.18 kgAugust 2024 6:46pm Body Whipbnuktze42.9 [degF]97.6-99.0August 2024 6:47pmHeart Rate98 /min 60-100August 2024 8:01pmRespiratory rate18 /gnv78-48Zffsqx 17th, 2025 8:01pmOxygen saturation by Pulse ohctczxp43 %95-100August 2024 8:01pmBP Ywedzarj876 mm[Hg]100-140August 2024 8:01pmBP Cfvqieogs69 mm[Hg]60-100 November 15, 2024 8:00qxZcqjyr09 [in_i]November 23, 2024 2:43meJuwuga71.90 kg November 23, 2024 2:08amBody Vhngxwkoybz90.9 [degF]97.6-99.0August 2024 2:08amHeart Rate66 /lux83-937Mbvhtv 2024 4:38amRespiratory rate18 /min 12-24August 2024 4:38amOxygen saturation by Pulse %95-100Augus2024 4:38amBP Spngupts352 mm[Hg]100-140August 2024 4:38amBP Tygnovcgv57 mm[Hg]60-100August 2024 4:88bxKmrjph09 [in_i]November 30, 2024 11:75niNtcmbc73.18 kgSept2024 11:57pmBody Kfvktapqucc31.0 [degF] 97.6-99.0Sept2024 11:57pmHeart Rate72 /tvg62-115Bcamwlqzv 2nd, 2025 2:00amRespiratory rate18 /qrd65-85Drkgtacii 2nd, 2025 2:00amOxygen saturation by Pulse %95-100Sept2024 2:00amBP Ohovisjz663 mm[Hg]100-140 December 01, 2024 2:00amBP Aevkrgjkx28 mm[Hg]60-100Sept2024 2:00am Igiksv60 [in_i]December 04, 2024 1:76ryNopvyg31.15 kgSept2024 1:04amHeart Rate57 /zca00-853Toapxroeq 5th, 2025 4:39amRespiratory rate20 /min 12-24Sept2024 4:39amOxygen saturation by Pulse oewjsieh65 %95-100 December 04, 2024 4:39amBP Lunocuzd758 mm[Hg]100-140September 2024 4:39am BP Hlgqjymxc43 mm[Hg]60-100Sept2024 4:63uxUilkds90 [in_i]December 14, 2024 8:45dqLsummi04.81 kgSeptember 2024 8:42pmBody Ucblktcdijz04 [degF]97.6-99.0September 2024 8:42pmHeart Rate65 /nsw68-802Tpeagxiua 2024 1:24amRespiratory rate16 /aod28-80Hoprryyli 2024 1:24amOxygen saturation by Pulse odengjoj47 %95-100September 2024 1:24amBP Kbxnnevp449 mm[Hg]100-140September 2024 1:24amBP Ghkxbbpca77 mm[Hg]60-100September 2024 1:85zmFylhhm39 [in_i]December 30, 2024 8:37bzCsmfwk13.25 kgOctober 2024 8:16pmBody Jasnpnahkcg72.7 [degF]97.6-99.0October 2024 8:16pm Heart Rate54 /ytw44-918Xchtriu 2024 11:30pmRespiratory rate16 /kxd76-58 December 30, 2024 11:30pmOxygen saturation by Pulse vcntwabn87 %95-100October 2024 11:30pmBP Mlaotsvs723 mm[Hg]100-140October 2024 11:30pmBP Hhywekxzr29 mm[Hg]60-100October 2024 11:79nhKxhisu06 [in_i]January 03, 2025 7:71eiFxtnyv07.20 kgOctober 2024 7:50pmBody Ibgrlwcdpqq77.1 [degF] 97.6-99.0October 2024 7:50pmHeart Rate80 /zcg18-373Azotguk 2024 10:13pmRespiratory rate20 /pnl86-21Rotixit 2024 10:13pmOxygen saturation by Pulse xbamjlvs76 %95-100October 2024 10:13pmBP Zqqzxyot528 mm[Hg]100-140 January 03, 2025 10:13pmBP Lrdhtgrib73 mm[Hg]60-100October 2024 10:13pm Covfkb36 [in_i]February 05, 2025 2:97arDrwhub39.90 kgFebruary 05, 2025 2:06am Body Iwypxbhneuw02.6 [degF]97.6-99.0February 05, 2025 2:06amHeart Rate68 /min 60-100February 05, 2025 3:46amRespiratory rate18 /ueh27-35AabsmmvhFebruary 05, 2025 3:46amOxygen saturation by Pulse anofgysj73 %95-100February 05, 2025 3:46amBP Iecsuhsf340 mm[Hg]100-140Nov2024 3:46amBP Hmwpyepwe08 mm[Hg]60-100 February 05, 2025 3:46am Advance Directives Advance Directive Response Recorded Date/ Time Advance Directives No November 4:04pm Insurance Providers Guarantor Elvira Sneed Address [address] [facility] [address]Gewjgsw Info.Home Phone: Coverage Status Update:2024 Payer Group Member ID Coverage Type Subscriber Relationship to Subscriber Effective Date Expiration Date [employer] A [place] [id number] A Nedra Id: [id number] [address] [facility] [address] Home Phone: Email: Declined 2020elfAneta Ayala ALESHIA [id number] A Nedra Id: [id number] [address] [facility] [address] Home Phone: Email: Declined 2020elf[place] [employer] ALESHIA Id: [id number] A Nedra Id: [id number] [address] [facility] [address] Home Phone: Email: Declined 2020elfRegular Auto/Liability [address] [facility] [address] Work Phone: a [employer] [id number] A Nedra Id: [id number] [address] [facility] [address] Home Phone: Email: Declined 2020elfLast ROXI Stoll [facility] [id number] A [place] Id: [id number] [address] [facility] [address] Home Phone: Email: Declined 2020elf Encounters Encounter Location(s) Arrival/Admit Date Discharge/Departure Date Discharge/Departure Disposition Provider(s) Departed Emergency -Emergency Room November 12, 2024 7:09am November 12, 2024 9:22am Discharged to home care or self care (routine discharge) [place] 7:41pmAugust 2024 9:28pmDischarged to home care or self care (routine discharge)[place] 3:06amAugust 2024 5:44amDischarged to home care or self care (routine discharge)Departed Emergency-Emergency Room December 01, 2024 12:52amSeptember 2024 3:40amDischarged to home care or self care (routine discharge)Departed Referred-[facility] December 01, 2024 10:35pmSept2024 10:36pmDischarged to home care or self care (routine discharge)([facility]) [facility]- Emergency RoomSept2024 1:55amSeptember 2024 6:11amDischarged to home care or self care (routine discharge)Departed Emergency-Emergency Room December 14, 2024 9:17pmSept2024 4:35amDischarged to home care or self care (routine discharge)[facility] 9:05pmOctober 2024 1:30amDischarged to home care or self care (routine discharge)[facility] 20[facility] 8:44pmOctober 2024 11:15pmDischarged to home care or self care (routine discharge)Departed Emergency-Emergency RoomNov 2025 1:58amNovember 2024 3:52am Discharged to home care or self care (routine discharge) Plan of Treatment Future Tests Future scheduled test information is unavailable Pending Tests Test Name Ordered Date Scheduled Date Urine Color February 05, 2025 3:48am Urine AppearanceNov2024 3:48amUrine Specific GravityNov2024 3:48amUrine pHNov2024 3:48amUrine Leukocyte EsteraseNov2024 3:48amUrine NitriteFebruary 05, 2025 3:48amUrine ProteinNov2024 3:48amUrine Glucose (UA)February 05, 2025 3:48amUrine KetonesNov2024 3:48amUrine UrobilinogenNov2024 3:48amUrine Bilirubin February 05, 2025 3:48amUrine Occult BloodNov2024 3:48amXR chest 1V portableFebruary 05, 2025 2:17amNovember 2024 2:17am Future Visits Future appointment information is unavailable Future Procedures Procedure Name Ordered Date Scheduled Date Urinalysis February 05, 2025 2:17am Novemb er 2024 3:48am Future Medications Future medication information is unavailable Patient Instructions Instruction Admit Date Abdominal pain in adults - ED discharge instructions November 12, 2024 7:09am Migraine in adults Chest pain - Discharge instructionsAugus2024 7:41pmChest pain in adults - ED discharge instructionsAugust 2024 3:06amFlank Pain EDSept2024 1:55amFlank Pain ED Upper respiratory infection in adults - Discharge instructionsSeptember 2024 9:17pmBleeding After MenopauseOctober 2024 9:05pmUterine Fibroids (DC) January 03, 2025 8:44pmChest pain in adults - ED discharge instructions Headache in adults - ED discharge instructionsNov2024 1:58am Hospital Discharge Instructions Additional Instructions All of your tests were normal. There is no evidence of any dangerous problem. Please follow up with your doctor. If you are having tooth pain, you need to go see the dentist.
[2025-02-12 00:52] VITALS: BP 149/88; PULSE 97; TEMP 36.5; O2SAT 98; BMI 34.7
--- NOTE | 2025-02-12 00:58 | PC.NURSE ---
this patient drove herself from work with a complaints of head, and right and left lower tooth pain onset 1 day ago thos patient voices no other complaints, needs and shows no signs of distress
--- NOTE | 2025-02-12 01:03 | PC.NURSE ---
this patient denies any recent falls, injury or trauma to cause this headache or tooth pain
--- NOTE | 2025-02-12 01:04 | ED.GENADUL1 ---
HPI HPI - General Adult General Chief complaint: Headache Stated complaint: HEADACHE/DENTAL PAIN Time Seen by Provider: 02/12/25 00:57 Source: patient Mode of arrival: walk-in Limitations: no limitations History of Present Illness HPI narrative: 49-year-old female presents to the emergency department for toothache and headache. She states her headache is being caused by the toothache. She is complaining of 2 teeth that are hurting, 1 on each side of her lower jaw. She does not have a dentist. No trauma fever or stiff neck or localized weakness. The pain is severe and continuous and started yesterday. Related Data Home Medications ?Medication ?Instructions ?Recorded ?Confirmed lisinopril 40 mg tablet 40 mg PO DAILY 11/29/23 02/12/25 atorvastatin 20 mg tablet 20 mg PO DAILY 06/19/24 02/12/25 omeprazole 20 mg capsule,delayed 20 mg PO DAILY 11/18/24 02/12/25 release Previous Rx's ?Medication ?Instructions ?Recorded clindamycin HCl 300 mg capsule 300 mg PO Q6H 10 days #40 caps 02/12/25 ibuprofen 800 mg tablet 800 mg PO Q8H PRN pain #20 tabs 02/12/25 ondansetron 4 mg disintegrating 4 mg PO Q6H PRN nausea and 02/12/25 tablet vomiting #20 tabs tramadol 50 mg tablet 50 mg PO Q8H PRN pain #20 tabs 02/12/25 Allergies Allergy/AdvReac Type Severity Reaction Status Date / Time codeine (From Allergy Mild Rash Verified 12/25/24 02:53 Tylenol-Codeine) morphine Allergy Mild rash Verified 12/25/24 02:53 Penicillins Allergy Mild Rash Verified 12/25/24 02:53 cefdinir Allergy Unknown Rash Verified 12/25/24 02:53 Opioid HPI Opioid Management Most Recent Opioid Data: Last Pain Scale 8 Today, 00:56 Review of Systems ROS Narrative A ten point review of systems is negative except as noted above. PFSH PFSH Social History Smoking status: Never smoker Little interest or pleasure in doing things: not at all Feeling down, depressed, or hopeless: not at all Exam Narrative Exam Narrative: Nurses note and vital signs reviewed General:The patient appears well and in no apparent distress.Patient is resting comfortably on cart. Skin:Warm, dry, no pallor noted.There is no rash noted. Head:Normocephalic, atraumatic Eye: Normal conjunctiva, no drainage Ears, Nose, Mouth, and Throat: oral mucosa is moist. Nares patent. No gingival swelling or erythema noted. No swelling to the floor of the mouth. No facial swelling or erythema. Cardiovascular:Regular Rate and Rhythm Respiratory:Patient is in no distress, no accessory muscle use, lungs are clear to auscultation, no wheezing, rales or rhonchi Back:non-tender GI: Soft and nontender Musculoskeletal: The patient has no evidence of calf tenderness, no pitting edema, symmetrical pulses noted bilaterally Neurological:A&O, normal speech Psychiatric:Cooperative Constitutional Vital Signs, click to edit/add: Last Vital Signs Temp 97.7 F 02/12/25 00:52 Pulse 97 H 02/12/25 00:52 Resp 18 02/12/25 00:52 BP 149/88 H 02/12/25 00:52 Pulse Ox 98 02/12/25 00:52 O2 Del Method Room Air 02/12/25 00:52 Course Vital Signs Vital signs: Vital Signs Temperature 97.7 F 02/12/25 00:52 Pulse Rate 97 H 02/12/25 00:52 Respiratory Rate 18 02/12/25 00:52 Blood Pressure 149/88 H 02/12/25 00:52 Pulse Oximetry 98 02/12/25 00:52 Oxygen Delivery Method Room Air 02/12/25 00:52 Temperature 97.7 F 02/12/25 00:52 Pulse Rate 97 H 02/12/25 00:52 Respiratory Rate 18 02/12/25 00:52 Blood Pressure 149/88 H 02/12/25 00:52 Pulse Oximetry 98 02/12/25 00:52 Oxygen Delivery Method Room Air 02/12/25 00:52 Medical Decision Making MDM Narrative Medical decision making narrative: Offered IM injection prefers not to have an injection. She was prescribed Ultram, Zofran, clindamycin, and ibuprofen and given doses here tonight. Dental follow-up was provided. Treatment diagnosis and follow-up were discussed with the patient. Differential Diagnosis Differential Diagnosis: Dental caries, gingivitis, dental abscess Discharge Plan Discharge Chief Complaint: Headache Clinical Impression: Odontalgia Patient Disposition: Home, Self-Care Time of Disposition Decision: 01:02 Condition: Good Mode of Transportation: Private Vehicle Prescriptions / Home Meds: New clindamycin HCl 300 mg capsule 300 mg PO Q6H 10 Days Qty: 40 0RF ibuprofen 800 mg tablet 800 mg PO Q8H PRN (Reason: pain) Qty: 20 0RF tramadol 50 mg tablet 50 mg PO Q8H PRN (Reason: pain) Qty: 20 0RF ondansetron 4 mg tablet,disintegrating 4 mg PO Q6H PRN (Reason: nausea and vomiting) Qty: 20 0RF No Action atorvastatin 20 mg tablet 20 mg PO DAILY lisinopril 40 mg tablet 40 mg PO DAILY omeprazole 20 mg capsule,delayed release(DR/EC) 20 mg PO DAILY Print Language: Greek Instructions: Toothache (ED) Referrals: [facility]ILY[facility] [Primary Care Provider] - 1 week
--- OUTSIDE RECORDS SUMMARY | 2025-02-12 01:08 | XMS_ITS | Clinical Summary ---
Author Organization [facility] Address [address] [place] [address] Care Team Providers Care Plant Facilities Technician Name Role Phone Unallocated, Noms Provider Primary Care Provi jessica Allergies Active AllergyReactionsCriticalityNoted MtmyZkugqbqcUptojiwxJilfsiq21/16/2025 HydromorphoneShortness of njheviShex55/16/2025MorphineShortness of breathHigh 01/14/20251893UzyonikzglpXqmuj93/16/2025 Medications MedicationSigDispense QuantityRefillsLast FilledStart DateEnd DateStatus lisinopril 40 MG tablet take 1 tablet by mouth once daily Oral for 30Active atorvastatin (Lipitor) 20 MG tablet take 1 tablet by mouth once daily Oral for 30Active ondansetron ODT (Zofran-ODT) [address] 1 tablet ON TONGUE AND ALLOW TO DISSOLVE every 8 hours if needed Oral for 10Active ibuprofen 800 MG tablet 5Active Encounters DateTypeDepartmentCare LtepJulrxeoojmf17/23/2025Telephone [facility] OlivasLalojacqueline LESLIE [address] [facility] [address] [place] [address] Mikal Simeon MA 01/14/2025 4:15 PM EDTOffice Visit [facility] May ANUJ [address] [facility] [address] [place] [address] Barron Awan MD Abnormal uterine bleeding (AUB) (Primary Dx); Pelvic pain in female; 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; Uterine leiomyoma, unspecified location; Cervical cancer screening; Screening for HPV (human papillomavirus)01/14/2025amboo flowsheet TANVI LESLIE [address] [place] [address] Barron Awan MD 01/14/20254768Jsvriu52/06/2025Telephone TANVI MARKSN [address] [place] [phone] Unallocated, Tanvi Atwood MD from Last 3 Months Family History Medical HistoryRelationNameCommentsCancerMotherDiabetesMotherHyperlipidemia MotherHypertensionMotherThyroid diseaseMotherRelationNameStatusCommentsMother Social History Tobacco UseTypesPacks/DayYears UsedDateSmoking Tobacco: Every DayCigarettes Smokeless Tobacco: Never Tobacco Cessation:Ready to Q uit: Not Asked; Counseling Given: Not Answered CommentsNoSex and Gender InformationValueDate RecordedSex Assigned at BirthNot on fileLegal DhlOaapct16/15/2023 6:40 PM EDTGender IdentityNot on file Sexual OrientationNot on file Last Filed Vital Signs Vital SignReadingTime TakenCommentsBlood Tzivekgw351/8201/14/2025 4:10 PM EDT Pulse--Temperature--Respiratory Rate--Oxygen Saturation--Inhaled Oxygen Concentration--Dkfefm76.1 kg (192 lb)01/14/2025 4:10 PM NVGQwipyl272.1 cm (5' 2.25 )02/27/2021 12:00 PM ESTBody Mass Index34.8402/27/2021 12:00 PM EST Plan of Treatment DateTypeDepartmentCare Team (Latest Contact Info)Gujrklebcxz33/23/2025 10:00 AM ESTOffice Visit TANVI LESLIE [address] [place] [address] Barron Awan MD [address] [facility] [address] [place] [address] Health MaintenanceDue DateLast DoneCommentsCT Vtwjrfvxgtnm44/03/1974Colonoscopy 1973Colorectal Cancer Imieogebi10/03/1974FIT-DNA1973FIT1973 FOBT1973 5856Uocjaaakhlmqb27/03/1974Pneumococcal Vaccine: Pediatrics (0 to 5 Years) and At-Risk Patients (6 to 64 Years) (1 of 2 - PCV)1992Pap Smear 08/01/19947527Tscrrsyjf58/03/2014COVID-19 Vaccine ( season)2024 Influenza Vaccine (#1)5Cervical Cancer Qcygkbfxx10/16/2030HPV/Cotest Procedures Procedure NamePriorityDate/TimeAssociated DiagnosisCommentsIGP, APT HPV,RFX 16/18,93Upsuman50/16/2025 12:00 AM EDT Cervical cancer screening Screening for HPV (human papillomavirus) from Last 3 Months Results * IGP, APT HPV,RFX 16/18,45 (01/14/2025 12:00 AM EDT)ComponentValueRef RangeTest MethodAnalysis TimePerformed AtPathologist SignatureDiagnosis:CommentLABCORP Comment:NEGATIVE FOR INTRAEPITHELIAL LESION OR MALIGNANCY.Specimen Adequacy: CommentLABCORPComment: Satisfactory for evaluation. ??Endocervical and/or squamous metaplastic cells (endocervical component) are present. Clinician Provided ICD10:CommentLABCORPComment: Z12.4 Z11.51 Performed By:CommentLABCORPComment:Paulie Rueda, Telephone Operator Chief ([facility])Cyto Comments. LABCORPNote:CommentLABCORPComment: The Pap smear is a screening test designed to aid in the detection of premalignant and malignant conditions of the uterine cervix. ??It is not a diagnostic procedure and should not be used as the sole means of detecting cervical cancer. ??Both false-positive and false-negative reports do occur. Test Methodology:CommentLABCORPComment: This liquid based ThinPrep(R) pap test was interpreted using the [employer]un [employer](TM) Cervical Algorithm whole slide imaging system. HPV AptimaNegativeNegativeLABCORPComment: This nucleic acid amplification test detects fourteen high-risk HPV types (16,18,31,33,35,39,45,51,52,56,58,59,66,68) without differentiation. Specimen (Source)Anatomical Location / LateralityCollection Method / Volume Collection TimeReceived TimeVaginal Fluid Narrative [facility] - 01/19/2025 3:07 PM EDT Performed at: 01 - [facility] [address] ??[id number] Dewatering Filtering Supervisor: Gabbi Donato MD, Phone: ??[phone] Performed at: ??02 - [facility] [address] ??[id number] Dewatering Filtering Supervisor: Gabbi Donato MD, Phone: ??[phone] Specimen Comment: No. of containers..01 ThinPrep Vial Authorizing ProviderResult TypeResult StatusBarron Awan MDLAB BLOOD ORDERABLESFinal ResultPerforming OrganizationAddressCity/State/ZIP CodePhone Number [facility] from Last 3 Months Insurance Care Teams Team MemberRelationshipSpecialtyStart DateEnd Date Unallocated, Noms Angelic, [address] [place], [place] [phone] PCP - GeneralFamily Gozapnwi25/10/25
--- OUTSIDE RECORDS SUMMARY | 2025-02-12 01:08 | XMS_ITS | Patient Health Record ---
Author Organization [facility] es Address [address] [place] [address] Care Team Providers Care Telephone Coin Box Collector Name Role Phone tonnyMary Sosa Primary Care Provider Allergies Allergen (clinical drug ingredient) Drug/Non Drug Allergy documented on EMR Reaction Allergy Type Onset Date Status hydromorphone Dilaudid Unknown Drug Allergy ActivemorphineMorphine SulfateUnknownDrug AllergyActivePenicillinhivesDrug AllergyActive Results Component Value Reference Range Notes WESTLEY with Reflex Reviewed date:03/03/2024 06:26:25 PM Interpretation:Negative Performing Lab: Notes/Report: sites;Paresthesia;Mild ane Reason for Exam Chronic fatigue;Myalgia, multiple Reason for Exam Chronic diarrhea WESTLEY with Reflex Negative Negative Performed at: [address] [id number] Lead Cargo Mover: Main Miranda PhD, Phone: [phone] Reason For Referral No Information Medications Medication SIG (Take, Route, Frequency, Duration) Notes Start Date End Date Status Ferrous Sulfate 325 (65 Fe) MG Tablet 1 tablet Orally Three times a Week; Duration: 30 days 03/02/2024ctiveLoperamide HCl 2 MG Capsule1 capsule as needed Orally Four times a dayNot-Taking/PRNAtorvastatin Calcium 20 MG TabletTAKE 1 TABLET BY MOUTH DAILY; Duration: 90ActivePropranolol HCl 20 MG TabletTAKE 1 TABLET BY MOUTH TWICE A DAYActiveLisinopril 40 MG TabletTAKE 1 TABLET BY MOUTH DAILY; Duration: 30ActiveamLODIPine Besylate 5 MG Tablettake 1 tablet by mouth once daily; Duration: 30Not-Taking/PRNZofran ODT 4 MG Tablet Disintegrating1 tablet on the tongue and allow to dissolve Orally every 8 hrs prn; Duration: 30 daysActive Ibuprofen 800 mg #60 800 mg Tabletsone tablet orally every 6 hours prn pain 11/24/2019ActiveNexIUM 20 MG Capsule Delayed Release1 capsule Orally Once a day; Duration: 30 day(s)12/19/2022ctiveFluticasone Propionate 50 MCG/ACT Suspension1 spray in each nostril Nasally Once a day; Duration: 30 days06/04/2023ctive Social History Tobacco Use: Social History Observation Description Date Details (start date - stop date) Former Smoker NA - NA Social History Social DeterminantsSocial InfoQuestionAnswerNotesPRAPAREDate Completed/Updated: 09/08/2020What is your current housing situation?I have housingAre you worried about losing your housing?NoWhat is the highest level of school that you have finished?Less than a high school degreeWhat is your current work situation? Otherwise unemployed but not seeking work (ex. 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 Check all that applyI do not have problems meeting my needsHas lack of transportation kept you from medical appointments, meetings, work or from getting things needed for daily living?NoHow often do you see or talk to people that you care about and feel close to? (For example: talkingto friends on the phone, visiting friends or family, going to evangelical or club meetings)More than 5 times a weekHow stressed are you? Stress is when someone feels tense, nervous, anxious, or cant sleep at night because their mind is troubledSomewhatIn the past year have you spent more than 2 nights in a row in a snf, nursing home, correction center, orjuvenile correctional facility?NoAre you a refugee?NoWhat country are you from?[place]Do you feel physically and emotionally safe where you currently live?YesIn the past year, have you been afraid of your partner or ex-partner?NoPRAPARE Score:5GeneralSocial InfoQuestionAnswerNotes Transition of Care:ER/UC/hospital since last office visit?Yes, report on file FirelandsSpecialist seen since last office visit?NoSubstance abuse/mental health issues of patient/familyPatient -DeniesFamily Member -DeniesAbility to understand healthcare/treatmentPatient:Maximo Screen:Are you a:former smoker? How long has it been since you last smoked?1-3 monthsSexual Hx:Had sex in the last 12 months (vaginal, oral, or anal)?Yes? withMen only? Use protection?No? Prevention Strategies discussed:AbstinenceHave you ever had an STD?NoLMP:07/02/2022Social/Support Concerns:Patient:NoAlcohol Screening:Did you have a drink containing alcohol in the past year?NoInterpretationNegative Behaviors affecting healthPoor/Risky Behaviors:Denies-Communication Barrier: Language Barrier?:NoSection Notes: current smoker 1ppd current smoker 1ppd [...] Status W/U Status Risk Notes Problem Hypomagnesemia (778396646) Hypomagnesemia (E83.42) ActiveconfirmedProblemEssential hypertension (32857107)Essential (primary) hypertension (I10)ActiveconfirmedProblemChronic sinusitis (70327384)Chronic sinusitis, unspecified (J32.9)ActiveconfirmedProblemDysuria (94793587)Dysuria (R30.0)ActiveconfirmedProblemExcessive thirst (52621350)Polydipsia (R63.1)Active confirmedProblemHyperlipidemia (57495394)Hyperlipidemia (E78.5)Activeconfirmed ProblemDysmenorrhea (101465723)Dysmenorrhea (N94.6)ActiveconfirmedProblemVitamin D deficiency (81780193)Vitamin D deficiency (E55.9)ActiveconfirmedProblemAnxiety (58478985)Anxiety (F41.9)ActiveconfirmedProblemAmenorrhea (64492919)Amenorrhea (N91.2)ActiveconfirmedProblemAbdominal pain (94875026)Abdominal pain (R10.9) ActiveconfirmedProblemEnvironmental allergy (771929739)Environmental allergies (Z91.09)ActiveconfirmedProblemAnxiety state (852569116)Acute anxiety (F41.9) ActiveconfirmedProblemParesthesia of both hands (938308623)Paresthesia of both hands (R20.2)ActiveconfirmedProblemIron deficiency anemia (35346256)Other iron deficiency anemia (D50.8)ActiveconfirmedProblemThoracic back pain (341061803) Upper back pain (M54.9)ActiveconfirmedProblemFatigue (18393806)Fatigue, unspecified type (R53.83)ActiveconfirmedProblemChronic fatigue syndrome (95652155)Chronic fatigue (R53.82)ActiveconfirmedProblemAbnormal uterine bleeding (57833569302293)Abnormal uterine bleeding (N93.9)ActiveconfirmedProblem Tension headache (496534237)Tension headache (G44.209)ActiveconfirmedProblem Menopausal flushing (923300239)Hot flash, menopausal (N95.1)Activeconfirmed ProblemBenign essential hypertension (9642040)Benign essential hypertension (I10)ActiveconfirmedProblemIron deficiency anemia due to chronic blood loss (943716133)Iron deficiency anemia due to chronic blood loss (D50.0)Active confirmedProblemDisorder of female genital organs (599375851)Cervical motion tenderness (N94.9)ActiveconfirmedProblemAnemia (746921334)Mild anemia (D64.9) ActiveconfirmedProblemStatus migrainosus (779242367)Status migrainosus (G43.901) ActiveconfirmedProblemCurrent smoker (71842075)Current smoker (F17.200)Active confirmedProblemPain in tooth (73290378)Pain in tooth (K08.89)Activeconfirmed ProblemMigraine (66333824)Headache, migraine (G43.909)ActiveconfirmedProblem Seasonal allergic rhinitis (341102754)Seasonal allergic rhinitis, unspecified trigger (J30.2)ActiveconfirmedProblemGastroesophageal reflux disease (448247849) Gastroesophageal reflux disease, unspecified whether esophagitis present (K21.9) ActiveconfirmedProblemMild recurrent major depression (25777270)Depression, major, recurrent, mild (F33.0)Activeconfirmed Encounters Encounter Location Date Provider Diagnosis [facility] [address] [place] [address] 03/02/2024 Mary Rosales Iron deficiency E61. 1 and Hypomagnesemia E83.42 [facility] [address] [facility] [place] [address] 05/08/2024 Mary Rosales Benign essential hypertension I10 Assessments Encounter Date Diagnosis (ICD Code) Assessment Notes Treatment Notes Treatment Clinical Notes Section Notes 05/08/2024 Benign essential hypertension (I CD-10 - I10) 03/02/2024Iron deficiency (ICD-10 - E61.1)03/02/2024Hypomagnesemia (ICD-10 - E83.42) Plan Of Treatment Pending Test Test Name Order Date WESTLEY with Reflex 02/04/2024 Insurance Providers Payer Name Payer Address Payer Phone Subscriber Number Group Number Insured Name Patient Relationship to Insured Coverage Start Date Coverage End Date [facility] [address] [place] [address] [id number] SYL, REBECCASelf - patient is the trynsnp4402/04/2024[facility] [address] [place] [id number], REBECCASelf - patient is the degokfo45/07/2023[facility]-termed 05/01/22.[address] [place] [phone] [id number], REBECCASelf - patient is the [id number]/ zMEDICAID [facility] after POWNAL-termed 05/01/22[address] [place] [address] [id number], REBECCASelf - patient is the insured zDENTAL POWNAL-termed 05/01/22[address] [address] [place] [id number], REBECCASelf - patient is the fyxmqdl64zDental MEDICAID [facility] after POWNAL-termed 05/01/22[address] [place] [id number], REBECCASelf - patient is the [id number] MedicaidPO [address] [place] [id number], REBECCASelf - patient is the /ental [facility] PennsylvaniaolvePO [address] [address] [place] [id number], REBECCASelf - patient is the sdeltqg2705/02/2022ental [facility]rap [facility] Hospit[facility]PO [address] [place] [address] [id number], REBECCASelf - patient is the insured 05/02/2022H [place] MedicaidPO [address] [place] [phone], REBECCASelf - patient is the insured 05/02/[address] [facility] [address] [place] [phone] [id number], REBECCASelf - patient is the myngmac1505/02/2022 Medical (General) History Medical History History ICD Code scoliosis torticollis at birthmiYaquelin StonedepressionanxietySurgical History Surgery Date(Month/Year) removal left SCM muscle to release torti doug infancy TUBUAL LIGATION 2006 lipotripsy Hospitalization History Reason Date(Month/Year) Depression/suicidal See surgical
--- OUTSIDE RECORDS SUMMARY | 2025-02-12 01:08 | XMS_ITS | Encounter Summary ---
Author Organization [facility] Address [address] [place] [address] Care Team Providers Care Software Installation Engineer Name Role Phone Unallocated, [facility] Primary [facility] Provi jessica Encounter Details DateTypeDepartmentCare Team (Latest Contact Info)Zmczuvjluua11/23/2025Telephone [facility] [address] [phone] Mikal Simeon MA Social History Tobacco UseTypesPacks/DayYears UsedDateSmoking Tobacco: Every DayCigarettes Smokeless Tobacco: NeverCommentsNoSex and Gender InformationValueDate RecordedSex Assigned at BirthNot on fileLegal PxiMweqor68/15/2023 6:40 PM EDT Gender IdentityNot on fileSexual OrientationNot on filedocumented as of this encounter Miscellaneous Notes * Telephone Encounter - Mikal Simeon MA - 02/08/2025 10:54 AM EST Spoke with patient, she is aware she is scheduled for surgery on 03/08/25 at [facility] at 7:45 am. Patient advised to arrive 1 hour prior to surgery time, nothing to eat or drink after midnight, no ASA orblood thinners prior to or day of, patient also advised to have someone with her to drive her home after surgery. Patient is aware surgery benefits are still pending at this time. Patient asked if wecan send a letter with all surgery information. Letter sent. Patient voiced understanding to all. * Telephone Encounter - Mikal Simeon MA - 02/04/2025 11:21 AM EST I attempted to contact patient, no answer. Left message on voicemail to return my call. * Telephone Encounter - Mikal Simeon MA - 02/03/2025 1:57 PM EST I attempted to contact patient, no answer. Left message to return my call. * Telephone Encounter - Mikal Simeon MA - 01/27/2025 3:31 PM EDT I attempted to contact patient, no answer. Left message to return my call. * Telephone Encounter - Mikal Simeon MA - 01/26/2025 1:17 PM EDT I attempted to contact patient, no answer. Left message on voicemail to return my call. * Telephone Encounter - Kate Conroy - 01/22/2025 8:08 AM EDT Pt returned call. Please contact * Telephone Encounter - Mikal Simeon MA - 01/21/2025 10:59 AM EDT I attempted to contact patient, no answer. Left message to return my call. -Need to schedule surgery with [facility] documented in this encounter Plan of Treatment DateTypeDepartmentCare Team (Latest Contact Info)Ujrwlvmrtnn00/23/2025 10:00 AM ESTOffice Visit [facility] [address] [place] [phone] Barron Awan MD [address] [place] [address] documented as of this encounter Visit Diagnoses Not on filedocumented in this encounter Care Teams Team MemberRelationshipSpecialtyStart DateEnd Date Unallocated, [facility] Provider, [address] [place] [address] PCP - GeneralFamily Qabftntx51/10/25documented as of this encounter
[2025-02-12] MEDS: CLINDAMYCIN HCL 150 MG CAPSULE 300 MG PO (01:13)
[2025-02-12] MEDS: ONDANSETRON 4 MG RAPDIS TABLET SL (01:14)
[2025-02-12] MEDS: TRAMADOL HCL 50 MG TABLET PO (01:14)
--- NOTE | 2025-02-12 01:17 | PC.NURSE ---
i gave this patient verbal and written discharge orders along with 4 e-scripts and this patient voices yes to understanding these. at time of discharge this patient voices no concerns, needs and shows no signsof distress
== END 2025-02-12 01:17 | disposition home or self-care (01) ==
PROVIDERS: Emergency Provider Emergency Medicine
DX: K08.89 Other specified disorders of teeth and supporting structures (principal); R51.9 Headache, unspecified
CPT/HCPCS: 99284; Q0162